=== PATIENT | female | born 1945 | race Caucasian/White ===

== ENCOUNTER 2021-06-14 09:04 | Emergency (ER) | payer MEDICARE, SELFPAY ==
[2021-06-14 09:17] VITALS: BP 142/54; PULSE 96; RESP 18; TEMP 36.3; O2SAT 100
--- NOTE | 2021-06-14 09:29 | ED.WOUNDLAC ---
HPI - Wound/Laceration General Chief Complaint: Wound/Laceration Stated Complaint: Laceration on Left hand Time Seen by Provider: 06/14/21 09:20 Source: patient and RN notes reviewed Mode of arrival: ambulatory Limitations: no limitations History of Present Illness HPI narrative: 75-year-old female presents with concern for wound to the palmar aspect of the left hand. Reports day before yesterday she was reaching in the trash to get something out when she cut herself on broken glass. She reports she cleaned the wound, reports she thinks she needs a tetanus shot. Reports some swelling and redness around the wound. She denies any decrease strength, sensation, range of motion of the hand. Extremity Location: Left: hand Related Data Home Medications Medication Instructions Recorded Confirmed allopurinol 06/14/21 blood sugar diagnostic [OneTouch 06/14/21 06/14/21 Ultra Test] bumetanide 06/14/21 carvedilol 06/14/21 insulin degludec [Tresiba unit SUBCUT 06/14/21 FlexTouch U-200] insulin lispro [Humalog KwikPen SUBCUT 06/14/21 Insulin] nortriptyline 06/14/21 nortriptyline 06/14/21 omeprazole 06/14/21 pen needle, diabetic [BD Josette 2nd 06/14/21 06/14/21 Gen Pen Needle] pramipexole mg 06/14/21 semaglutide [Ozempic] mg SUBCUT 06/14/21 trospium mg 06/14/21 Allergies Allergy/AdvReac Type Severity Reaction Status Date / Time pseudoephedrine Allergy Unknown Other Verified 06/14/21 09:19 Review of Systems Review of Systems: CONSTITUTIONAL: Denies malaise, chills, sweats, or fever. CARDIOVASCULAR: Denies chest pain, palpitations, or edema. RESPIRATORY: Denies cough or dyspnea. SKIN: Rash in the left hand MUSCULOSKELETAL: Denies muscle skeletal pain, myalgia. NEUROLOGIC: Denies numbness, weakness All systems reviewed & are unremarkable except as noted in HPI and below PMFSH Comments At time of signature, agree with nursing past medical, surgical, social and family history. There is no relevant family history pertinent to the presenting complaint Exam Narrative: GENERAL: Well-appearing, well-nourished, and in no acute distress. HEAD: Normocephalic EYES: PERRLA, conjunctivae clear NECK: Supple. CHEST: Speaks in full sentences. No respiratory distress. HEART: Regular rate and rhythm. Normal and equal peripheral pulses. EXTREMITIES: Left hand and digits of hand have grossly normal strength and sensation. Range of motion normal. Normal digital cascade with flexion of fingers, median, ulnar and radial nerve intact. Normal sensation of each side of finger. No scissoring. Normal thumb opposition. Good capillary refill and radial pulse. Distal capillary refill less than 3 seconds. SKIN: Warn, dry, intact, pink. 3cm gaping laceration noted to the palmar aspect of the left hand beneath the second digit, edges not able to be approximated wound bed beefy red. Mild erythema, edema, induration surrounding the wound. NEURO: Alert and oriented x3. PSYCH: Normal mood and affect Course Course Emergency Course: Steri-Strips used to keep wound as approximated as possible, too many hours have passed for wound closure. Patient is aware of diagnosis, understands and agrees to treatment plan. Anticipatory guidance given. Patient agrees to follow-up as directed and is aware of reasons to seek care at the emergency department. Portions of this record may have been created with voice recognition software Vital Signs Vital signs: Vital Signs Temperature 97.4 F L 06/14/21 09:17 Pulse Rate 96 06/14/21 09:17 Respiratory Rate 18 06/14/21 09:17 Blood Pressure 142/54 H 06/14/21 09:17 Pulse Oximetry 100 06/14/21 09:17 Temperature 97.4 F L 06/14/21 09:17 Pulse Rate 96 06/14/21 09:17 Respiratory Rate 18 06/14/21 09:17 Blood Pressure 142/54 H 06/14/21 09:17 Pulse Oximetry 100 06/14/21 09:17 Reviewed. MDM - Wound/Laceration MDM Narrative Medical decision making narrative: Exam findings show n
[2021-06-14] MEDS: TETANUS,DIPHTHERIA,AC PERTUSSIS ADULT (0.5 ML) BOOSTRIX IM (09:56)
== END 2021-06-14 10:00 | disposition home or self-care (01) ==
PROVIDERS: Emergency Provider Nurse Practitioner
DX: L08.9 Local infection of the skin and subcutaneous tissue, unspecified (principal); S61.412A Laceration without foreign body of left hand, initial encounter; W25.XXXA Contact with sharp glass, initial encounter; Z23 Encounter for immunization
CPT/HCPCS: 90471; 90715; 99213; G0463

== ENCOUNTER 2022-02-28 15:47 | Outpatient (NON) | payer MEDICARE, SELFPAY ==
[2022-02-28 15:58] LABS: Basophils Absolute Auto 0.06 K/mm3 (0.00-0.10); Basophils Percent Auto 0.6 % (0.0-1.0); Eosinophils Absolute Auto 0.15 K/mm3 (0.02-0.50); Eosinophils Percent Auto 1.6 % (1.0-6.0); Hematocrit 36.7 % (35.0-42.0); Immature Granulocyte Absolute 0.05 K/mm3 (0.00-0.00); Immature Granulocyte Percent A 0.5 % (0.0-0.0); Lymphocytes Absolute Auto 2.52 K/mm3 (1.10-4.50); Mean Corpuscular HGB Conc 32.7 g/dL (32.0-36.0); Mean Corpuscular Hemoglobin 30.5 pg (27.0-31.0); Mean Corpuscular Volume 93.4 fL (78.0-102.0); Mean Platelet Volume 10.2 fl (9.2-11.8); Monocytes Absolute Auto 0.58 K/mm3 (0.10-0.90); Monocytes Percent Auto 6.2 % (2.0-11.0); Neutrophils Percent Auto 64.1 % (50.0-70.0); Platelet Count Result 262 K/mm3 (150-420); Red Blood Count 3.93 M/mm3 (4.20-5.40); Red Cell Distribution Width 14.1 % (11.6-14.4); White Blood Count 9.3 K/mm3 (4.8-10.8)
[2022-02-28 16:02] LABS: Anion Gap 6 mmol/L (8-16); Blood Urea Nitrogen 41 mg/dL (7-18); Calcium 9.5 mg/dL (8.5-10.1); Carbon Dioxide 29 mmol/L (21-32); Chloride 103 mmol/L (98-108); Estimated Glomerular Filt Rate 29; Glucose 160 mg/dL (70-99); Osmolality Calculated 299 mOsm/kg (285-295); Potassium 3.9 mmol/L (3.5-5.1); Sodium 138 mmol/L (136-145)
== END 2022-02-28 15:48 | disposition home or self-care (01) ==
LOC: CHSLAB 15:52
DX: E11.649 Type 2 diabetes mellitus with hypoglycemia without coma (principal); I11.0 Hypertensive heart disease with heart failure; E11.22 Type 2 diabetes mellitus with diabetic chronic kidney disease
CPT/HCPCS: 80048; 85025

== ENCOUNTER 2022-04-23 12:06 | Outpatient (CLI) | payer MEDICARE, SELFPAY ==
--- NOTE | ~2022-04-23 | XR_ITS ---
EXAMINATION: XR chest 2V 04/23/2022 13:08 INDICATION: Cough. Atrial fibrillation.. PROCEDURE: 2 view chest COMPARISON: No prior studies for comparison. FINDINGS: The lungs are clear. The cardiomediastinal silhouette is within normal limits. There are no pleural effusions. There is no pneumothorax suspected. IMPRESSION: 1: NO ACUTE CARDIOPULMONARY DISEASE. Reviewed, dictated and finalized at location B.
--- NOTE | 2022-04-23 12:23 | ECG_ITS ---
Measurements Intervals [place] Rate: 76 P: 77 NH: 146 QRS: 32 QRSD: 88 T: 51 QT: 377 QTc: 426 Interpretive Statements SINUS RHYTHM NORMAL ECG NO PREVIOUS ECG AVAILABLE FOR COMPARISON Electronically Signed On 04-23-2022 12:39:09 CDT by Manjinder Richard M.D.
== END 2022-04-23 12:07 | disposition home or self-care (01) ==
PROVIDERS: PCP Family Medicine; Visit Provider Nurse Practitioner Family
DX: R05.9 Cough, unspecified (principal); R00.2 Palpitations
CPT/HCPCS: 71046; 93005

== ENCOUNTER 2022-05-06 14:07 | Outpatient (CLI) | payer MEDICARE, SELFPAY ==
--- NOTE | 2022-05-13 15:34 | WPDHOLTEREM ---
Holter/Event Monitor Holter/Event Monitor Date of procedure: 05/06/22 Holter/Event Procedure: 48 Hr Holter Monitor Indications: Palpitations Conclusion: 1. 48 hour holter monitor on 05/06/22. 2. Predominant rhythm is sinus rhythm. HR range 56-108 bpm; average HR 74 bpm. 3. There are 291 premature supraventricular complexes and 8 supraventricular couplets. There are 13 episodes of atrial tachycardia, fastest at 167 bpm and longest lasting 14 beats. 4. No premature ventricular complexes. No ventricular tachycardia. 5. No sinoatrial or atrioventricular blocks. No significant pauses greater than 2 seconds. 6. No symptoms available for correlation.
== END 2022-05-06 14:08 | disposition home or self-care (01) ==
LOC: ANHCARD 14:08
PROVIDERS: PCP Family Medicine; Visit Provider Nurse Practitioner Family
DX: R00.2 Palpitations (principal)
CPT/HCPCS: 93225; 93226

== ENCOUNTER 2022-05-20 11:22 | Inpatient (IN) | payer MEDICARE, SELFPAY ==
[2022-05-20] VITALS (8 sets, daily range): BP systolic 165–197; BP diastolic 54–75; PULSE 67–94; RESP 14–22; TEMP 36.1–36.4; O2SAT 96–100; BMI 43.2
--- NOTE | ~2022-05-20 | XR_ITS ---
EXAMINATION: XR chest 2V DATE: 05/20/2022 12:39 INDICATION: Shortness of breath TECHNIQUE: AP and lateral views of the chest are obtained. COMPARISON: 04/23/2022 FINDINGS: The lungs are free of acute opacities. No pleural effusion or pneumothorax. The cardiomedia stinal silhouette is normal. There are bridging osteophytes at multiple levels in the spine, consiste nt with diffuse idiopathic skeletal hyperostosis (DISH). IMPRESSION: 1. No acute cardiopulmonary abnormality. Reviewed, dictated and finalized at location B.
--- NOTE | ~2022-05-20 | US_ITS ---
EXAMINATION: US venous doppler [facility] DATE: 05/21/2022 10:20 INDICATION: Lower limb edema. TECHNIQUE: Grayscale ultrasound images without and with compression and Doppler ultrasound images of the bilateral lower extremity veins were obtained. COMPARISON: None. FINDINGS: The visualized portions of right common femoral vein, profunda (deep) femoral vein, femoral vein, pop liteal vein, peroneal veins, posterior tibial veins, and greater saphenous vein outflow are patent. The visualized portions of left common femoral vein, profunda femoral vein, femoral vein, popliteal v ein, peroneal veins, posterior tibial veins, and greater saphenous vein outflow are patent. IMPRESSION: 1. No deep venous thrombosis. Reviewed, dictated and finalized at location A.
--- NOTE | 2022-05-20 11:30 | ECG_ITS ---
Measurements Intervals [place] Rate: 87 P: 84 DC: 155 QRS: 43 QRSD: 78 T: 49 QT: 368 QTc: 443 Interpretive Statements SINUS RHYTHM NORMAL ECG COMPARED TO ECG 04/23/2022 12:32:38 NO SIGNIFICANT CHANGES Electronically Signed On 05-20-2022 12:09:48 CDT by Anupam Mcdowell D.O.
[2022-05-20 11:47] LABS: Basophils Percent Auto 0.4 % (0.2-1.2); Eosinophils Absolute Auto 0.1 K/mm3 (0-0.3); Eosinophils Percent Auto 1.1 % (0-4.4); Hematocrit 34.1 % (37.0-47.0); Hemoglobin 10.8 g/dL (12.0-15.0); Immature Granulocyte Absolute 0.05 K/mm3 (0.00-0.031); Immature Granulocyte Percent A 0.5 % (0-0.5); Lymphocytes Absolute Auto 1.21 K/mm3 (0.9-3.2); Lymphocytes Percent Auto 12.5 % (18.3-44.2); Mean Corpuscular HGB Conc 31.7 g/dl (32-36); Mean Corpuscular Volume 91.4 fl (80-100); Mean Platelet Volume 9.4 fl (7.4-10.4); Monocytes Absolute Auto 0.6 K/mm3 (0.1-0.6); Monocytes Percent Auto 5.7 % (2.6-8.5); Neutrophils Absolute Auto 7.7 K/mm3 (1.3-6.7); Neutrophils Percent Auto 79.8 % (45.5-73.1); Platelet Count Result 274 k/mm3 (150-375); Red Blood Count 3.73 M/mm3 (4.2-5.4); Red Cell Distribution Width 14.5 % (11.5-14.5); White Blood Count 9.7 K/mm3 (4.5-10.0)
[2022-05-20 11:59] LABS: Alanine Aminotransferase 18 U/L (6-35); Albumin Level 3.7 g/dL (3.5-5.1); Alkaline Phosphatase 155 U/L (38-126); Anion Gap 11 mmol/L (8-16); Aspartate Amino Transferase 19 U/L (14-36); Bilirubin,Total 0.2 mg/dL (0.2-1.3); Blood Urea Nitrogen 31 mg/dL (7-17); Calcium 8.8 mg/dL (8.4-10.2); Carbon Dioxide 26 mmol/L (22-30); Chloride 98 mmol/L (98-107); Estimated CRCL calculation 42 ml/min; Estimated Glomerular Filt Rate 40; Glucose 389 mg/dL (65-110); Potassium 4.5 mmol/L (3.4-5.0); Sodium 135 mmol/L (137-145)
--- NOTE | 2022-05-20 14:24 | ED.SOB ---
HPI - SOB/Dyspnea General Chief Complaint: Shortness of Breath/Dyspnea Stated Complaint: SOB Time Seen by Provider: 05/20/22 14:21 Source: patient Mode of arrival: ambulatory Limitations: no limitations History of Present Illness HPI Narrative: Pt with a history of CHF, Type II DM, presenting for one month history of worsening dyspnea with exertion, occasional productive cough. Pt has no smoking history. She reports bilateral leg swelling without pain or redness. She does report orthopnea. Her dyspnea improves with rest. She denies hemoptysis. She reports mild abdominal distension/edema without pain. Pt also reports unintentional weight gain over past month, and also episodic palpitations with negative work up ultimately after eval with holter monitor. Related Data Home Medications Medication Instructions Recorded Confirmed allopurinol 100 mg tablet 06/14/21 04/23/22 blood sugar diagnostic (OneTouch 06/14/21 04/23/22 Ultra Test strips) bumetanide 2 mg tablet 06/14/21 04/23/22 carvedilol 25 mg tablet 06/14/21 04/23/22 insulin lispro 100 unit/mL subcut 06/14/21 04/23/22 subcutaneous pen (Humalog KwikPen (U-100) Insulin) omeprazole 20 mg capsule,delayed 06/14/21 04/23/22 release pen needle, diabetic 32 gauge x 06/14/21 04/23/22 5/32 (BD Josette 2nd Gen Pen Needle) pramipexole 0.25 mg tablet mg 06/14/21 04/23/22 trospium 20 mg tablet mg 06/14/21 04/23/22 divalproex 500 mg tablet,delayed 500 mg PO Q12H 03/06/22 04/23/22 release insulin degludec 200 unit/mL (3 20 unit subcut DAILY 03/06/22 04/23/22 mL) subcutaneous pen (Tresiba FlexTouch U-200 insulin) insulin lispro 100 unit/mL 1 sliding scale dose subcut 03/06/22 04/23/22 subcutaneous pen (Humalog KwikPen USEASDIRECTD (U-100) Insulin) nystatin 100,000 unit/gram topical 1 applic topical BID 03/06/22 04/23/22 powder (Nystop) venlafaxine 50 mg tablet 50 mg PO DAILY 03/06/22 04/23/22 Allergies Allergy/AdvReac Type Severity Reaction Status Date / Time Noadius-URO-WeI Reductase Allergy Intermediate Other Verified 05/20/22 13:10 Inhibitor pseudoephedrine Allergy Unknown Other Verified 05/20/22 13:10 NSAIDS (Non-Steroidal AdvReac Intermediate Other Verified 05/20/22 13:10 Anti-Inflamma acetaminophen AdvReac Mild Itching Verified 05/20/22 13:10 [From Panlor (hydrocodone-acetamin)] exenatide [From Bydureon] AdvReac Mild Diarrhea Verified 05/20/22 13:10 hydrocodone AdvReac Mild Itching Verified 05/20/22 13:10 [From Panlor (hydrocodone-acetamin)] prochlorperazine AdvReac Mild Itching Verified 05/20/22 13:10 [From Compazine] rice AdvReac Mild Heartburn Verified 05/20/22 13:10 atenolol Allergy Severe Other Uncoded 05/20/22 13:10 oxycodone AdvReac Mild Itching Uncoded 05/20/22 13:10 Review of Systems Review of Systems: CONSTITUTIONAL: Denies fever, chills, or sweats. ENT: Denies rhinorrhea, congestion, sore throat, or otalgia. CARDIOVASCULAR: Denies chest pain, palpitations, reports lower extremity edema bilaterally RESPIRATORY: Reports cough and dyspnea GASTROINTESTINAL: Denies abdominal pain, nausea, vomiting, or diarrhea. GENITOURINARY: Denies dysuria or hematuria. SKIN: Denies rash or itching. MUSCULOSKELETAL: Denies back pain, joint pain, or myalgia. NEUROLOGIC: Denies headache, numbness, or weakness. 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
[2022-05-20] MEDS: FUROSEMIDE INJ 40 MG/4 ML VIAL 20 MG IV PUSH (15:35)
[2022-05-20 15:45] LABS: NT Pro B Type Natriuretic Pept 590 pg/mL (5-100); Troponin I < 0.012 ng/mL (0.000-0.034)
--- NOTE | 2022-05-20 17:12 | PM.IMHP ---
H&P: HPI History of Present Illness Date/Time: 05/20/22 17:12 Chief Complaint: Shortness of breath Narrative: This is a 76-year-old female patient who has a history of CHF and diabetes type 2. The patient stated she has had worsening shortness of breath with exertion occasional productive cough. The patient had increased swelling to her lower extremities. Her dyspnea improves with rest. She denies any fever chills. The patient stated that she has had an unintentional weight gain over the past month. She has venous stasis to bilateral lower extremities. She typically wears Francisco hose but cannot find her Francisco hose so she is wrapping her legs. Her H&H is currently 10.8 and 34.1 and last month that was normal. Sodium is slightly low at 135. Creatinine is 1.3 compared to last months level of 1.52. Her blood sugar was 389 today. Troponins were negative. BNP 590. Chest x-ray was read as no acute cardiopulmonary abnormality. The patient was given IV fluids in the emergency room. The patient is being admitted to observation status on the date of service of 05/20/2022. Review of Systems Review of Systems: See HPI All systems reviewed & are unremarkable except as noted in HPI and below Constitutional: Constitutional: Reports as per HPI and Reports no additional constitutional complaints Eyes: Eyes: Reports as per HPI and Reports no additional eye complaints ENT: Reports system reviewed and no additional complaints, except as documented and Reports Normal hearing present Cardiovascular: Cardiovascular: Reports no additional cardiovascular complaints Respiratory: Respiratory: Reports no additional respiratory complaints and Reports no additional respiratory complaints Gastrointestinal: Gastrointestinal: Reports as per HPI and Reports no additional gastrointestinal complaints Musculoskeletal: Musculoskeletal: Reports no additional musculoskeletal complaints Integumentary/Breasts: Skin/Breast: Reports system reviewed and no additional complaints, except as docu and Reports as per HPI Neurologic: Reports system reviewed and no additional complaints, except as documented, Reports as per HPI and Reports Normal hearing present Psychiatric: Psychiatric: Reports no additional psychiatric complaints and Reports as per HPI Endocrine: Endocrine: Reports no additional endocrine complaints Hematologic/Lymphatic: Hematologic/Lymphatic: Reports no additional hematologic/lymphatic complaints Allergic/Immunologic: Allergic/Immunologic: Reports no additional allergic/immunologic complaints [facility] Past Medical History Medical History Anemia Anxiety BMI 40.0-44.9, adult Breast cancer CHF (congestive heart failure) 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 Social History Social History (Updated 05/20/22 @ 21:52 by Melly Ruiz NP) Social History: The patient is and lives home alone. She Had 2 children but her daughter . Her son is the poa. She is retired. She has never smoked. She does not use any alcohol marijuana or illicit drugs. 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
[2022-05-20 18:42] LABS: Troponin I < 0.012 ng/mL (0.000-0.034)
--- NOTE | 2022-05-20 19:42 | ADMGEN ---
This patient, Aleksandra Berman, was admitted to [facility] Surg Room 329-01. Patient/family oriented to hospital policies and general routines including ID bracelet, bed and alarms, visiting hours, pain management, procedures, bathroom and other care routines, personal items, smoking policy, room service/diet, and visiting hours. Information on how to activate the Rapid Response Team has been discussed. Patient/Family are encouraged to report perceived risks to care and to ask questions if they do not understand what they are told or what they should do.
[2022-05-20 22:09] LABS: Hematocrit 35.9 % (37.0-47.0); Hemoglobin 11.2 g/dL (12.0-15.0)
[2022-05-21] MEDS: INSULIN ASPART (*BKC) 100 UNITS/ML 12 UNITS SUB-Q ×3 (01:19→12:04)
[2022-05-21 01:47] LABS: Glucose Point of Care 408 mg/dl (65-105)
[2022-05-21 03:35] LABS: Glucose Point of Care 319 mg/dl (65-105)
[2022-05-21 05:31] VITALS: BP 160/63; PULSE 81; RESP 16; TEMP 36.3; O2SAT 96
--- NOTE | 2022-05-21 06:00 | ECHO_ITS ---
Patient Info Name: Aleksandra Berman Age: 76 years : 1945 Gender: Female Ht: 65 in Wt: 260 lbs BSA: 2.39 m2 HR: 83 bpm BP: 160 / 63 mmHg Heart Rhythm: Sinus Rhythm Exam Date: 05/21/2022 11:21 AM Exam Location: [facility] Patient Status: Outpatient Admit Date: 05/20/2022 Staff Ordering Physician: Letty Joaquin MD Legal Services Professional: Patricio Hartman RDCS, RT Attending Provider: Bridget Paul DO Referring Physician: Emani SANTO; Exam Type: CA echo doppler color flow Study Info Indications R06.00 - Dyspnea, unspecified I50.9 - Heart failure, unspecified Complete two-dimensional, color flow and Doppler transthoracic echocardiogram is performed. Strain analysis performed. Summary 1. Complete two-dimensional, color flow and Doppler transthoracic echocardiogram is performed. 2. Left ventricular chamber dimension is normal. 3. Left ventricular systolic function is normal, estimated at 65-70%. 4. There is mildly increased left ventricular wall thickness. 5. The left ventricular diastolic function is grade II diastolic dysfunction. 6. E/e' 20.0 is moderately elevated. 7. Global longitudinal strain is mildly elevated at -18 %. 8. There is no aortic valve stenosis. 9. There is mild mitral valve regurgitation. 10. There is mild tricuspid valve regurgitation. 11. Moderate pulmonary hypertension, estimated pulmonary arterial systolic pressure is 46 mmHg. Left Ventricle Left ventricular chamber dimension is normal. Left ventricular systolic function is normal, estimated at 65-70%. There is mildly increased left ventricular wall thickness. The left ventricular diastolic function is grade II diastolic dysfunction. E/e' 20.0 is moderately elevated. Global longitudinal strain is mildly elevated at -18 %. Right Ventricle Right ventricular chamber dimension is normal. Right ventricular systolic function is normal. Left Atria Left atrial chamber dimension is normal. Right Atria Right atrial chamber dimension is normal. Aortic Valve The aortic valve is probable trileaflet. There is mild aortic valve sclerosis. There is no aortic valve stenosis. There is mild aortic valve regurgitation. Pulmonic Valve The pulmonic valve is not well visualized. There is trace pulmonic regurgitation. Mitral Valve The mitral valve has thickened leaflets. There is mild mitral valve regurgitation. The mitral valve annulus is moderately calcified. Tricuspid Valve The tricuspid valve leaflets are normal. There is mild tricuspid valve regurgitation. Moderate pulmonary hypertension, estimated pulmonary arterial systolic pressure is 46 mmHg. Pericardium/Pleural The pericardium appears normal. There is trivial pericardial effusion. Inferior Vena Cava Normal inferior vena cava with >50% collapse upon inspiration consistent with normal right atrial pressure, 5 mmHg. Aorta The aortic root size at the sinus of Valsalva is normal. There is mild aortic atherosclerosis. Left Ventricular Outflow Tract Name Value Normal LVOT 2D LVOT Diameter 2.0 cm LVOT Doppler LVOT Peak Gradient
[2022-05-21 06:46] LABS: Hematocrit 35.5 % (37.0-47.0)
[2022-05-21 08:24] LABS: Glucose Point of Care 202 mg/dl (65-105)
[2022-05-21] MEDS: PANTOPRAZOLE 40 MG TABLET PO (08:53)
[2022-05-21] MEDS: PRAMIPEXOLE 0.5 MG TABLET PO (08:53)
[2022-05-21] MEDS: VENLAFAXINE HCL 25 MG TABLET 50 MG PO (08:53)
[2022-05-21] MEDS: BUMETANIDE INJ 1 MG/4 ML VIAL IV PUSH ×2 (08:54→17:24)
[2022-05-21] MEDS: ENOXAPARIN 40 MG/0.4 ML SYRINGE SUB-Q (08:55)
[2022-05-21] MEDS: INSULIN ASPART (*BKC) 100 UNITS/ML SUB-Q ×2 (08:55→12:04)
[2022-05-21] MEDS: INSULIN GLARGINE (*BKC) 100 UNITS/ML 38 UNITS SUB-Q (08:56)
[2022-05-21 11:40] LABS: Glucose Point of Care 350 mg/dl (65-105)
[2022-05-21 12:43] LABS: Hematocrit 34.1 % (37.0-47.0); Hemoglobin 10.6 g/dL (12.0-15.0)
--- NOTE | 2022-05-21 13:37 | PM.IMPN ---
Progress Note: A&P Assessment and Plan (1) CHF (congestive heart failure): Code(s): I50.9 - Heart failure, unspecified Status: Acute Assessment and Plan: Echo report pending Continue IV diuresis, improving (2) Hypertension: Code(s): I10 - Essential (primary) hypertension Status: Acute Assessment and Plan: Continue Coreg, Bumex (3) Anxiety: Code(s): F41.9 - Anxiety disorder, unspecified Status: Acute Assessment and Plan: Continue Effexor (4) Depression: Qualifiers: Depression Type: major depressive disorder Major depression recurrence: single episode Active/Remission status: in full remission Qualified Code(s): F32.5 - Major depressive disorder, single episode, in full remission Code(s): F32.A - Depression, unspecified Status: Acute Assessment and Plan: Continue Effexor (5) Anemia: Qualifiers: Anemia type: unspecified type Qualified Code(s): D64.9 - Anemia, unspecified Code(s): D64.9 - Anemia, unspecified Status: Acute Assessment and Plan: Stable Stool occult still pending (6) Diabetes mellitus type 2 in obese: Code(s): E11.69 - Type 2 diabetes mellitus with other specified complication; E66.9 - Obesity, unspecified Status: Acute Assessment and Plan: A1c is over 10, Accu-Cheks with sliding scale insulin (7) Venous stasis dermatitis: Qualifiers: Laterality: unspecified laterality Qualified Code(s): I87.2 - Venous insufficiency (chronic) (peripheral) Code(s): I87.2 - Venous insufficiency (chronic) (peripheral) Status: Acute Assessment and Plan: Improving, continue to dose (8) Sleep apnea: Qualifiers: Sleep apnea type: obstructive Qualified Code(s): G47.33 - Obstructive sleep apnea (adult) (pediatric) Code(s): G47.30 - Sleep apnea, unspecified Status: Acute Assessment and Plan: Continue home CPAP Plan DVT prophylaxis with Lovenox GI prophylaxis not indicated Code status full code Subjective Date/time seen: 05/21/22 13:37 Interval history: No overnight events noted. No chest pain or shortness of breath. No nausea, vomiting or diarrhea. No fevers or chills. Review of Systems Review of Systems: 12 point review of systems was assessed and was negative except as noted in the HPI Exam Narrative: General: No acute distress, alert and oriented per baseline HEENT: Atraumatic, normocephalic, mucous membranes moist CV: Regular rate and rhythm, S1, S2 Lungs: Clear to auscultation bilaterally, no rales or crackles noted, no wheezes, good air entry Abdomen: Soft, nontender, nondistended Extremities: Normal to inspection, bilateral pitting edema, extremities intact toes, appears improved per prior exams Skin: No rashes noted, no lesions or wounds seen Psych: Euthymic, normal affect Objective Data Vital Signs Vital Signs: Vital Signs - 24 hr 05/20/22 14:21 05/20/22 18:21 05/20/22 19:04 Temperature Pulse Rate 83 78 87 Respiratory Rate 22 H 14 20 Blood Pressure 168/67 H 181/75 H Pulse Oximetry 100 99 97 Oxygen Delivery 05/20/22 19:51 05/20/22 21:37 05/20/22 22:45 Temperature 96.9 F L 96.9 F L Pulse Rate 84 84 67 Respiratory Rate 16 16 18 Blood Pressure 197/70 H 165/54 H Pulse Oximetry 98 98 96 Oxygen Delivery Autopap 05/21/22 05:31 Temperature 97.3 F L Pulse Rate 81 Respiratory Rate 16 Blood Pressure 160/63 H Pulse Oximetry 96 Oxygen Delivery Intake/Output Intake/Output: Intake & Output 05/18/22 05/19/22 05/20/22 05/21/22 23:59 23:59 23:59 23:59 Intake Total 1470 Output Total 600 Balance 870 Meds/Results Medications: Active Medications Generic Name Dose Route Start Last Admin Trade Name Rennyq PRN Reason Stop Dose Admin Acetaminophen 650 mg 05/20/22 16:23 Acetaminophen 325 Mg Tablet PO Q4H PRN Mild Pain (1-3) or
[2022-05-21 14:00] VITALS: BP 180/73; PULSE 87; RESP 14; TEMP 36.3; O2SAT 98
[2022-05-21 16:47] LABS: Glucose Point of Care 117 mg/dl (65-105)
[2022-05-21] MEDS: carvediloL 25 MG TABLET PO (18:33)
[2022-05-21 18:36] LABS: Hematocrit 33.8 % (37.0-47.0); Hemoglobin 10.7 g/dL (12.0-15.0)
[2022-05-21 19:50] VITALS: PULSE 85; RESP 17; O2SAT 96
[2022-05-21 21:45] VITALS: BP 143/65; PULSE 85; RESP 17; TEMP 37; O2SAT 96
[2022-05-21 23:47] LABS: Glucose Point of Care 282 mg/dl (65-105)
[2022-05-22 05:39] VITALS: BP 152/66; PULSE 82; RESP 18; TEMP 36.7; O2SAT 99
[2022-05-22 08:48] VITALS: PULSE 102
[2022-05-22] MEDS: BUMETANIDE INJ 1 MG/4 ML VIAL IV PUSH (08:48)
[2022-05-22] MEDS: carvediloL 25 MG TABLET PO (08:48)
[2022-05-22] MEDS: ENOXAPARIN 40 MG/0.4 ML SYRINGE SUB-Q (08:49)
[2022-05-22] MEDS: PRAMIPEXOLE 0.5 MG TABLET PO (08:50)
[2022-05-22] MEDS: PANTOPRAZOLE 40 MG TABLET PO (08:50)
[2022-05-22] MEDS: VENLAFAXINE HCL 25 MG TABLET 50 MG PO (08:50)
[2022-05-22 08:52] LABS: Glucose Point of Care 491 mg/dl (65-105)
[2022-05-22] MEDS: INSULIN GLARGINE (*BKC) 100 UNITS/ML 40 UNITS SUB-Q ×2 (09:13→09:21)
[2022-05-22] MEDS: INSULIN ASPART (*BKC) 100 UNITS/ML 15 UNITS SUB-Q (09:14)
[2022-05-22] MEDS: INSULIN ASPART (*BKC) 100 UNITS/ML 12 UNITS SUB-Q ×2 (09:14→12:18)
--- NOTE | 2022-05-22 09:18 | PC.NURSE ---
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 Paul regarding patients blood sugar (see labs). Patient already has scheduled novolog and lantus. Dr. Paul stated she would put new insulin orders in NOV (see MAR).
[2022-05-22 11:31] LABS: Glucose Point of Care 299 mg/dl (65-105)
[2022-05-22 12:07] LABS: Basophils Percent Auto 0.5 % (0.2-1.2); Eosinophils Absolute Auto 0.1 K/mm3 (0-0.3); Eosinophils Percent Auto 1.3 % (0-4.4); Hematocrit 35.7 % (37.0-47.0); Hemoglobin 11.2 g/dL (12.0-15.0); Immature Granulocyte Absolute 0.04 K/mm3 (0.00-0.031); Immature Granulocyte Percent A 0.5 % (0-0.5); Lymphocytes Absolute Auto 1.59 K/mm3 (0.9-3.2); Mean Corpuscular HGB Conc 31.4 g/dl (32-36); Mean Corpuscular Hemoglobin 28.9 pg (26-34); Mean Platelet Volume 9.3 fl (7.4-10.4); Monocytes Absolute Auto 0.5 K/mm3 (0.1-0.6); Monocytes Percent Auto 6.1 % (2.6-8.5); Neutrophils Absolute Auto 6.1 K/mm3 (1.3-6.7); Neutrophils Percent Auto 72.6 % (45.5-73.1); Platelet Count Result 279 k/mm3 (150-375); Red Blood Count 3.88 M/mm3 (4.2-5.4); Red Cell Distribution Width 14.6 % (11.5-14.5); White Blood Count 8.4 K/mm3 (4.5-10.0)
[2022-05-22 12:18] LABS: Anion Gap 12 mmol/L (8-16); Blood Urea Nitrogen 25 mg/dL (7-17); Calcium 9.4 mg/dL (8.4-10.2); Carbon Dioxide 26 mmol/L (22-30); Chloride 97 mmol/L (98-107); Estimated CRCL calculation 43 ml/min; Estimated Glomerular Filt Rate 40; Glucose 320 mg/dL (65-110); Potassium 3.9 mmol/L (3.4-5.0); Sodium 135 mmol/L (137-145)
[2022-05-22] MEDS: INSULIN ASPART (*BKC) 100 UNITS/ML SUB-Q (12:18)
[2022-05-22 14:00] VITALS: BP 160/87; PULSE 103; RESP 20; TEMP 35.6; O2SAT 98
[2022-05-22 16:29] LABS: Glucose Point of Care 217 mg/dl (65-105)
--- NOTE | 2022-05-22 16:54 | PM.DS ---
DS: Admitting Diagnosis Discharge Date May 22, 2022 Admitting Diagnosis Shortness of breath DS: Discharge Diagnosis Discharge Diagnosis (1) CHF (congestive heart failure): Code(s): I50.9 - Heart failure, unspecified Status: Acute Assessment and Plan: Echo report pending Continue IV diuresis, improving (2) Hypertension: Code(s): I10 - Essential (primary) hypertension Status: Acute Assessment and Plan: Continue Coreg, Bumex (3) Anxiety: Code(s): F41.9 - Anxiety disorder, unspecified Status: Acute Assessment and Plan: Continue Effexor (4) Depression: Qualifiers: Depression Type: major depressive disorder Major depression recurrence: single episode Active/Remission status: in full remission Qualified Code(s): F32.5 - Major depressive disorder, single episode, in full remission Code(s): F32.A - Depression, unspecified Status: Acute Assessment and Plan: Continue Effexor (5) Anemia: Qualifiers: Anemia type: unspecified type Qualified Code(s): D64.9 - Anemia, unspecified Code(s): D64.9 - Anemia, unspecified Status: Acute Assessment and Plan: Stable Stool occult still pending (6) Diabetes mellitus type 2 in obese: Code(s): E11.69 - Type 2 diabetes mellitus with other specified complication; E66.9 - Obesity, unspecified Status: Acute Assessment and Plan: A1c is over 10, Accu-Cheks with sliding scale insulin (7) Venous stasis dermatitis: Qualifiers: Laterality: unspecified laterality Qualified Code(s): I87.2 - Venous insufficiency (chronic) (peripheral) Code(s): I87.2 - Venous insufficiency (chronic) (peripheral) Status: Acute Assessment and Plan: Improving, continue to dose (8) Sleep apnea: Qualifiers: Sleep apnea type: obstructive Qualified Code(s): G47.33 - Obstructive sleep apnea (adult) (pediatric) Code(s): G47.30 - Sleep apnea, unspecified Status: Acute Assessment and Plan: Continue home CPAP Plan DVT prophylaxis with Lovenox GI prophylaxis not indicated Code status full code DS: Summary Hospital Course Hospital Course: 76-year-old female patient who has a history of CHF and diabetes type 2.? The patient stated she has had worsening shortness of breath with exertion occasional productive cough.? The patient had increased swelling to her lower extremities.? Her dyspnea improves with rest.? She denies any fever chills.? The patient stated that she has had an unintentional weight gain over the past month.? She has venous stasis to bilateral lower extremities.? She typically wears [place] hose but cannot find her Francisco hose so she is wrapping her legs.? Her H&H is currently 10.8 and 34.1 and last month that was normal.? Sodium is slightly low at 135.? Creatinine is 1.3 compared to last months level of 1.52.? Her blood sugar was 389 today.? Troponins were negative.? BNP 590.? Chest x-ray was read as no acute cardiopulmonary abnormality.? The patient was given IV fluids in the emergency room.? Echo showed grade 2 diastolic dysfunction with an EF of 65-70% as well as moderate pulmonary hypertension. No significant valvular abnormalities noted. Patient was diuresed with IV Bumex and all symptoms resolved. She was transitioned back to oral Bumex and symptoms remained resolved. Therefore, she was discharged in good condition with close outpatient follow-up by PCP and Cardiology. Extensive discussions were had regarding her uncontrolled diabetes patient was agreeable to change her diet and activity level. Time Spent with Patient Time attestation: Total time spent providing and/or coordinating discharge services: Exam Narrative: General: No acute distress, alert and oriented per baseline HEENT: Atraumatic, normocephalic, mucous membranes moist CV: Regular rate and rhythm, S1, S2 Lungs: Clear to auscultation josefa
--- NOTE | 2022-05-23 09:07 | WPDCDIQUERY2 ---
CDI Query Clarification Request 05/20 Hospitalist documented: CHF (congestive heart failure): ?Code(s): I50.9 - Heart failure, unspecified ?Status:?Acute ?Assessment and Plan: -change p.o. Bumex to IV Bumex -patient was given IV Lasix in the emergency -an echo has been ordered 05/21 Echo results: Left ventricular chamber dimension is normal. ?Left ventricular systolic function is normal, estimated at 65-70%. There is mildly increased left ventricular wall thickness. The left ventricular diastolic function is grade II diastolic dysfunction. ?E/e' 20.0 is moderately elevated. Global longitudinal strain is mildly elevated at -18 %. Please clarify if diagnosis CHF, Congestive Heart Failure Is: -Acute -Chronic -Acute on Chronic -Other -Unable to determine For coding purposes, results of Echo can not be used for diagnosis. Please clarify if CHF, Congestive Heart Failure is: -Systolic -Diastolic -Combined -Other -Unable to determine
--- NOTE | 2022-05-23 09:17 | WPDCDIQUERY2 ---
CDI Query Clarification Request 05/20 Hospitalist documented: Anemia: ?Qualifiers: ?Anemia type:?unspecified type? Qualified Code(s):?D64.9 - Anemia, unspecified ?Code(s): D64.9 - Anemia, unspecified ?Status:?Acute ?Assessment and Plan: -check stool for occult blood -H&H every 6 hours 05/20 H&H 10.8/34.1 05/21 Stool occult still pending Please clarify diagnosis, Anemia: -Iron deficiency anemia -Blood loss anemia -Other -Unable to determine
== END 2022-05-22 17:30 | disposition home or self-care (01) | DRG 291 ==
LOC: ANHED 16:26 → ANH3MEDSUR 18:59
PROVIDERS: Emergency Medicine; Nurse Practitioner; Admitting Provider Chiropractor; Emergency Provider Emergency Medicine; PCP Family Medicine; Visit Provider Student in an Organized Health Care Education/Training Program
DX: I13.0 Hypertensive heart and chronic kidney disease with heart failure and stage 1 through stage 4 chronic kidney disease, or unspecified chronic kidney disease (principal); I50.33 Acute on chronic diastolic (congestive) heart failure; Z68.41 Body mass index [BMI] 40.0-44.9, adult; D64.9 Anemia, unspecified; E11.65 Type 2 diabetes mellitus with hyperglycemia; E66.9 Obesity, unspecified; F41.9 Anxiety disorder, unspecified; F32.5 Major depressive disorder, single episode, in full remission; G47.33 Obstructive sleep apnea (adult) (pediatric); I27.20 Pulmonary hypertension, unspecified; I87.2 Venous insufficiency (chronic) (peripheral); M17.10 Unilateral primary osteoarthritis, unspecified knee; E11.22 Type 2 diabetes mellitus with diabetic chronic kidney disease; N18.32 Chronic kidney disease, stage 3b; Z90.49 Acquired absence of other specified parts of digestive tract; Z90.10 Acquired absence of unspecified breast and nipple; Z79.4 Long term (current) use of insulin; Z85.3 Personal history of malignant neoplasm of breast; Z96.643 Presence of artificial hip joint, bilateral; Z85.828 Personal history of other malignant neoplasm of skin
CPT/HCPCS: 36415; 71046; 80048; 80053; 82948; 83036; 83880; 84484; 85014; 85018; 85025; 93005; 93306; 93970; 96372; 96374; 99285; A9270; G0378; J1650; J1815; J1940

== ENCOUNTER 2022-07-11 13:32 | Outpatient (CLI) | payer MEDICARE, SELFPAY ==
--- NOTE | ~2022-07-11 | XR_ITS ---
EXAMINATION: XR chest 2V 07/11/2022 13:58 INDICATION: Dyspnea. CHF. PROCEDURE: 2 view chest COMPARISON: 05/20/2022 FINDINGS: The lungs are clear. The cardiomediastinal silhouette is within normal limits. There are no pleural effusions. There is no pneumothorax suspected. IMPRESSION: 1: NO ACUTE CARDIOPULMONARY DISEASE. Reviewed, dictated and finalized at location A.
== END 2022-07-11 13:33 | disposition home or self-care (01) ==
LOC: ANHIMG 13:40
PROVIDERS: PCP Family Medicine; Visit Provider Physician Assistant Medical
DX: R06.09 Other forms of dyspnea (principal)
CPT/HCPCS: 71046

== ENCOUNTER 2022-07-21 16:27 | Inpatient (IN) | payer MEDICARE, SELFPAY ==
[2022-07-21] VITALS (8 sets, daily range): BP systolic 174–199; BP diastolic 75–91; PULSE 95–108; RESP 16–23; TEMP 37.4; O2SAT 96–100
--- NOTE | ~2022-07-21 | XR_ITS ---
EXAMINATION: XR chest 2V DATE: 07/24/2022 08:20 INDICATION: Pneumonia. TECHNIQUE: Frontal and lateral views of the chest were obtained. COMPARISON: Chest 2 views 07/21/2022, CT chest 07/22/2022 FINDINGS: Again seen are airspace opacities in right upper lobe, consistent with pneumonia. No pleura l effusion or pneumothorax. The heart size is normal. IMPRESSION: 1. Persistent right upper lobe airspace opacities, consistent with pneumonia. Reviewed, dictated and finalized at location A. DER OPERATOR
--- NOTE | ~2022-07-21 | CT_ITS ---
EXAMINATION: CT brain wo con INDICATION: Confusion COMPARISON: None TECHNIQUE: Standard unenhanced head CT. The dose-length product (DLP) was 908.00 mGy-cm. The mA was a djusted according to patient size. Iterative reconstruction technique was employed. FINDINGS: There is no acute intraparenchymal hemorrhage. No evidence of mass lesion. No evidence of a cute infarction. There is mild periventricular and subcortical hypodensity probably related to small vessel ischemic disease. There is mild prominence of the sulci and ventricles related to cerebral atr ophy. Intracranial calcified cerebral atherosclerosis is noted. There are no extra-axial collections. There is asymmetry in the posterior horns of the lateral ventricles with the right being nonvisualiz ed, apparently hypoplastic. There is no mass effect or midline shift. Changes in the globes are likel y from ocular lens surgery. The visualized sinuses and mastoid air cells are well aerated. IMPRESSION: 1. No acute intracranial abnormality. 2. Age related findings. Reviewed, dictated and finalized at location F. RWATER HUNTER TRAPPER
--- NOTE | ~2022-07-21 | XR_ITS ---
EXAMINATION: XR chest 2V DATE: 07/21/2022 19:04 INDICATION: Shortness of breath TECHNIQUE: AP and lateral views of the chest are obtained. COMPARISON: 07/11/2022 FINDINGS: There are patchy interstitial and airspace opacities throughout the lungs. No pleural effus ion or pneumothorax. The cardiomediastinal silhouette is normal. There is moderate thoracic spondylos is. IMPRESSION: 1. Diffuse lung disease which may reflect interstitial edema and/or pneumonia. Reviewed, dictated and finalized at location F. ORATE EVENTS DIRECTOR
--- NOTE | ~2022-07-21 | CT_ITS ---
EXAMINATION: CT chest abdomen pelvis w con DATE: 07/22/2022 03:10 INDICATION: Dyspnea. Nausea and vomiting. TECHNIQUE: Computed tomography (CT) of the chest, abdomen, and pelvis was performed with 100 mL Omnip aque 350 intravenous contrast. Automated exposure control and iterative reconstruction technique were employed. The dose-length product was 1636.13 mGy-cm. COMPARISON: None FINDINGS: CHEST CT: There are airspace opacities in right upper lobe with air bronchograms, consistent with pneumonia. Th ere is mild atelectasis in the lungs. There is smooth septal thickening in the lungs, consistent with mild pulmonary edema. No pleural effusion. There is a right breast implant. The heart size is normal . There are coronary artery calcifications. No pericardial effusion. There is mild mediastinal and ri ght hilar lymphadenopathy. There is mild thoracic spondylosis. ABDOMEN/PELVIS CT: The liver is normal. There are changes of cholecystectomy. The spleen, pancreas, and adrenal glands a re normal. There is cortical thinning of the kidneys. There are no dilated loops of bowel. The append ix is normal. There are no pathologically enlarged lymph nodes. There is no free intraperitoneal flui d. There is a total right hip arthroplasty. There is moderate lumbar spondylosis. IMPRESSION: 1. Right upper lobe pneumonia. 2. Mild pulmonary edema. 3. Mild mediastinal and right hilar lymphadenopathy, likely reactive. Reviewed, dictated and finalized at location A. USEMENT MACHINE MECHANIC
--- NOTE | 2022-07-21 16:43 | ECG_ITS ---
Measurements Intervals [place] Rate: 97 P: 82 OR: 153 QRS: 38 QRSD: 76 T: 38 QT: 339 QTc: 432 Interpretive Statements SINUS RHYTHM NORMAL ECG COMPARED TO ECG 05/20/2022 11:35:46 NO SIGNIFICANT CHANGES Electronically Signed On 07-21-2022 19:37:49 COMPUTER NUMERICAL CONTROL MACHINIST by Anupam Mcdowell D.O.
[2022-07-21 16:44] LABS: Glucose Point of Care 342 mg/dl (65-105)
[2022-07-21 17:16] LABS: Basophils Percent Auto 0.4 % (0.2-1.2); Eosinophils Absolute Auto 0.1 K/mm3 (0-0.3); Hematocrit 35.6 % (37.0-47.0); Hemoglobin 11.2 g/dL (12.0-15.0); Immature Granulocyte Absolute 0.04 K/mm3 (0.00-0.031); Immature Granulocyte Percent A 0.4 % (0-0.5); Lymphocytes Absolute Auto 1.39 K/mm3 (0.9-3.2); Lymphocytes Percent Auto 14.8 % (18.3-44.2); Mean Corpuscular HGB Conc 31.5 g/dl (32-36); Mean Corpuscular Hemoglobin 28.4 pg (26-34); Mean Corpuscular Volume 90.1 fl (80-100); Mean Platelet Volume 9.7 fl (7.4-10.4); Monocytes Absolute Auto 0.7 K/mm3 (0.1-0.6); Monocytes Percent Auto 7.1 % (2.6-8.5); Neutrophils Absolute Auto 7.2 K/mm3 (1.3-6.7); Neutrophils Percent Auto 76.3 % (45.5-73.1); Platelet Count Result 254 k/mm3 (150-375); Red Blood Count 3.95 M/mm3 (4.2-5.4); Red Cell Distribution Width 15.7 % (11.5-14.5); White Blood Count 9.4 K/mm3 (4.5-10.0)
[2022-07-21 17:29] LABS: Alanine Aminotransferase 20 U/L (6-35); Albumin Level 4.2 g/dL (3.5-5.1); Alkaline Phosphatase 151 U/L (38-126); Anion Gap 9 mmol/L (8-16); Aspartate Amino Transferase 22 U/L (14-36); Bilirubin,Total 0.7 mg/dL (0.2-1.3); Blood Urea Nitrogen 25 mg/dL (7-17); Calcium 9.6 mg/dL (8.4-10.2); Carbon Dioxide 28 mmol/L (22-30); Chloride 98 mmol/L (98-107); Estimated CRCL calculation 53 ml/min; Estimated Glomerular Filt Rate 44; Glucose 383 mg/dL (65-110); Phosphorus 2.4 mg/dL (2.5-4.5); Potassium 4.3 mmol/L (3.4-5.0); Sodium 135 mmol/L (137-145)
[2022-07-21 17:35] LABS: Beta-Hydroxybutyrate/Acetoacetate 0.43 mmol/L (0.02-0.27)
--- NOTE | 2022-07-21 18:41 | ED.AMS ---
HPI - Altered Mental Status General Chief Complaint: Recheck/Abnormal Lab/Rx <Luisana Doe APRN - Last Filed: 07/22/22 01:55> Stated Complaint: High BS <Luisana Doe APRN - Last Filed: 07/22/22 01:55> Time Seen by Provider: 07/21/22 18:06 <Luisana Doe APRN - Last Filed: 07/22/22 01:55> Source: patient <Luisana Doe APRN - Last Filed: 07/22/22 01:55> Mode of arrival: ambulatory <Luisana Doe APRN - Last Filed: 07/22/22 01:55> Limitations: no limitations <Luisana Doe APRN - Last Filed: 07/22/22 01:55> History of Present Illness HPI narrative: 76-year-old female presents with her son at the bedside for increased confusion and hyperglycemia. Patient's son states that he noticed today that she is more confused than normal. Patient does have a Dexcom on. Patient's blood sugars yesterday in the 200s and son was not concerned but he got alarmed today that the blood sugars were high. Patient son stated that he is unsure if patient took her insulin but he does not think that she did. Patient does know that she is confused. Denies falls, dysuria, cough, fever, chills, nausea, vomiting, abdominal pain. Patient does have a history of CHF and sleep apnea. States she does wear her CPAP at night. Patient denies any recent sick contacts. <Luisana Doe APRN - Last Filed: 07/22/22 01:55> Related Data Home Medications: Home Medications Medication Instructions Recorded Confirmed allopurinol 100 mg tablet 100 mg PO DAILY 06/14/21 07/22/22 (Zyloprim) bumetanide 2 mg tablet 2 mg PO BID 06/14/21 07/22/22 carvedilol 25 mg tablet (Coreg) 25 mg PO BID 06/14/21 07/22/22 omeprazole 20 mg capsule,delayed 20 mg PO DAILY 06/14/21 07/22/22 release pramipexole 0.25 mg tablet 0.5 mg PO BID 06/14/21 07/22/22 (Mirapex) trospium 20 mg tablet 20 mg PO BID 06/14/21 07/22/22 divalproex 500 mg tablet,delayed 500 mg PO HS 03/06/22 07/22/22 release (Depakote) insulin degludec 200 unit/mL (3 40 unit subcut DAILY 07/10/22 07/22/22 mL) subcutaneous pen (Tresiba FlexTouch U-200 insulin) insulin lispro 100 unit/mL 20 unit subcut TIDWM 07/10/22 07/22/22 subcutaneous pen (Humalog KwikPen (U-100) Insulin) cholestyramine (with sugar) 4 gram 4 g PO Q2D 07/17/22 07/22/22 powder for susp in a packet (Questran) desvenlafaxine succinate 50 mg 50 mg PO DAILY 07/22/22 07/22/22 tablet,extended release 24 hr (Pristiq) gabapentin 100 mg capsule 100 mg PO TID 07/22/22 07/22/22 (Neurontin) losartan 25 mg tablet (Cozaar) 25 mg PO DAILY 07/22/22 07/22/22 nortriptyline 25 mg capsule 25 mg PO DAILY 07/22/22 07/22/22 (Pamelor) venlafaxine 150 mg 150 mg PO DAILY 07/22/22 07/22/22 capsule,extended release 24 hr (Effexor XR) <Luisana Doe, ENROLLMENT REPRESENTATIVE - Last Filed: 07/22/22 01:55> Allergies/Adverse Reactions: Allergies Allergy/AdvReac Type Severity Reaction Status Date / Time Qlycrob-VLH-KmM Reductase Allergy Intermediate Other Verified 07/21/22 18:11 Inhibitor pseudoephedrine Allergy Unknown Other Verified 07/21/22 18:11 NSAIDS (Non-Steroidal AdvReac Intermediate Other Verified 07/21/22 18:11 Anti-Inflamma acetaminophen AdvReac Mild Itching Verified 07/21/22 18:11 [From Panlor (hydrocodone-acetamin)] exenatide [From Bydureon] AdvReac Mild Diarrhea Verified 07/21/22 18:11 hydrocodone AdvReac Mild Itching Verified 07/21/22 18:11 [From Panlor (hydrocodone-acetamin)] prochlorperazine AdvReac Mild Itching Verified 07/21/22 18:11 [From Compazine] rice AdvReac Mild Heartburn Verified 07/21/22 18:11 atenolol Allergy Severe Other Uncoded 07/21/22 18:11 oxycodone AdvReac Mild Itching Uncoded 07/21/22 18:11 <Luisana Doe, ENROLLMENT REPRESENTATIVE - Last Filed: 07/22/22 01:55> Review of Systems Review of Systems: CONSTITUTIONAL: Denies fever, chills, or sweats. EYES: Denies visual changes, redness, or discharge. ENT: Denies rhinorrhea, congestion, sore thr
[2022-07-21 18:44] LABS: Appearance Urine Slightly Cloudy (Clear); Bilirubin Urine Negative (Negative); Blood Urine Trace-lysed (Negative); Color Urine Light Yellow (Yellow); Glucose Urine UA 3+ mg/dL (Negative); Ketones Urine 1+ mg/dL (Negative); Leukocyte Esterase Ur Trace LEU/UL (Negative); Nitrate Urine Negative (Negative); Protein Urine 1+ mg/dL (Negative); Specific Grav Ur 1.015 (1.001-1.035); Urobilinogen Urine 0.2 mg/dL (<2.0)
--- NOTE | 2022-07-21 18:44 | PC.NURSE ---
talked to nisha in the lab to add on the BNP ordered - NC @ 4544
[2022-07-21 18:56] LABS: Bacteria Urine Trace /hpf; Squamous Epithelial Cell Urine Few /hpf (Few); WBC Urine 16-20 /hpf
[2022-07-21 19:12] LABS: Add Urine Microscopic? YES
[2022-07-21 19:13] LABS: NT Pro B Type Natriuretic Pept 1690 pg/mL (5-100)
[2022-07-21] MEDS: INSULIN HUMAN REGULAR (*BKC) 100 UNITS/ML 10 UNITS IV PUSH (19:44)
[2022-07-21] MEDS: SODIUM CHLORIDE 0.9% IV 500 ML 999 ML IV CONT (19:44)
--- NOTE | 2022-07-21 20:51 | PC.NURSE ---
blood glucose 262 at 205
[2022-07-21 20:52] LABS: Glucose Point of Care 262 mg/dl (65-105)
[2022-07-21 21:24] LABS: Alveolar/Arterial O2 Gradient 39.1 mmHg; Base Excess ABG 4.1 mEq/l (+/-2.0); Fractional Inspired Oxygen 21 %; HCO3 ABG 26.6 mEq/l (22.0-26.0); Oxygen Saturation ABG 95.9 % (95.0-100.0); Oxyhemoglobin 94.3 % THb (90.0-100.0); PCO2 ABG 32.9 mmHg (35.0-45.0); PO2 ABG 71.2 mmHg (80.0-100.0); PO2 FiO2 Ratio Arterial Blood 3.39 %
[2022-07-21 21:29] LABS: Modified Allen's Test Pass; Site Drawn RIGHT RADIAL; pH ABG 7.526 (7.350-7.450)
[2022-07-21 22:31] LABS: Influenza A QL RT-PCR Negative (Negative); Influenza B QL RT-PCR Negative (Negative); SARS-CoV-2 RNA PCR Negative
[2022-07-21] MEDS: INSULIN GLARGINE (*BKC) 100 UNITS/ML 40 UNITS SUB-Q (23:11)
[2022-07-22] VITALS (12 sets, daily range): BP systolic 152–192; BP diastolic 58–78; PULSE 77–109; RESP 16–23; TEMP 36.2–36.9; O2SAT 94–97; BMI 51.5
--- NOTE | 2022-07-22 00:42 | ADMGEN ---
This patient, Aleksandra Berman, was admitted to Medical Room 344-01. Patient/family oriented to hospital policies and general routines including ID bracelet, bed and alarms, visiting hours, pain management, procedures, bathroom and other care routines, personal items, smoking policy, room service/diet, and visiting hours. Information on how to activate the Rapid Response Team has been discussed. Patient/Family are encouraged to report perceived risks to care and to ask questions if they do not understand what they are told or what they should do.
[2022-07-22 00:48] LABS: Glucose Point of Care 300 mg/dl (65-105)
--- NOTE | 2022-07-22 02:44 | PM.IMHP ---
H&P: HPI History of Present Illness Date/Time: 07/22/22 01:00 Chief Complaint: Confusion, high blood sugar Narrative: 76-year-old female with a past medical history of insulin-dependent diabetes mellitus, grade 2 diastolic heart failure, moderate pulmonary hypertension, urge incontinence, COPD and chronic kidney disease who presented to the ER due to high blood sugars and confusion. Source of information is obtained from the patient who is a fair historian regarding her past medical history but poor historian regarding the events of the last several days and from review of ER records. The patient's son at checked on her yesterday and her sugars were in the 200s. The patient's son brought the patient to the ER when he went to see the patient and found her to be more confused today and he found that her blood sugars were reading high on her Dexcom (greater than 500). The patient is alert and oriented to person date of and the fact that she is in the hospital. She does not know the month year or the name of the president. She is quite distressed that she is confused like this. She does state that she thinks that she is developing some mild dementia at baseline and has mention this to her doctor in the past. In fact when she followed up with Endocrinology this past week C let the physician know that she was having trouble keeping track of her insulin and blood sugars despite different record keeping methods and she felt that this part of why her diabetes is uncontrolled. Her degree of confusion has markedly increased in the last 24 hours. As a result she does not know if she has taken her insulin or her other medications in the last 24-48 hours. Her other symptoms include vomiting of bilious material for the last 2-3 days. It is been accompanied by increased urinary frequency but she denies any dysuria or hematuria. She has not noticed any foul-smelling urine. She reports that she has felt hot. She has not checked her temperature at home. She had a temperature of 99.3? in the ER. She reports that she has chronic shortness of breath for the last month or so and has had a productive cough as well. She was having the respiratory symptoms in May and had x-ray at that time that was negative. Her repeat x-ray was performed on July 11 actually demonstrate no acute cardiopulmonary process as well. She reports chronic dyspnea on exertion and orthopnea that is unchanged from baseline. She reports that her cough has worsened over recent days. She denies any recent ill contacts. Her COVID, and influenza PCRs were negative. She is fully vaccinated and boosted against COVID. She denies any abdominal pain. She has chronic loose stools following her cholecystectomy in takes cholestyramine at home. She denies any hematochezia or melena. She denies any chest pain. She does have obstructive sleep apnea and is compliant with her CPAP therapy. She has chronic lower extremity edema which she reports has been stable since her recent hospitalization. She has chronic lower extremity erythema which she thinks is at about her baseline. She is complaining of increased restless leg movements today but she is not sure she took her medications this morning. She is unsure if she took any of her medications this morning. She complains of dysphagia that has been going on for months. She already has a follow-up with Dr. Grossman 40 EGD 08/04/2022. Review of Systems Review of Systems: 12 systems were reviewed with pertinent positives and negatives per HPI. Except as documented in the HPI, all other systems were reviewed and are negative. Despite being confused as to the month year hurt age and the name of the current president she is a relatively good historian regarding her past medical history in for the most part recent events. [facility] Past Medical History Medical History (Updated 07/22/22 @ 03:39 by Kalee Mccoy DO) Anemia Anxiety BMI 40.
[2022-07-22] MEDS: METOPROLOL TARTRATE INJ 5 MG/5 ML VIAL IV PUSH (02:52)
[2022-07-22 02:54] LABS: Glucose Point of Care 363 mg/dl (65-105)
[2022-07-22] MEDS: INSULIN ASPART (*BKC) 100 UNITS/ML 8 UNITS SUB-Q (03:34)
[2022-07-22] MEDS: DIVALPROEX SODIUM DR 250 MG TABEC 500 MG PO ×2 (03:34→20:31)
[2022-07-22 04:09] LABS: Glucose Point of Care 317 mg/dl (65-105)
[2022-07-22 05:54] LABS: Anion Gap 12 mmol/L (8-16); Blood Urea Nitrogen 18 mg/dL (7-17); Carbon Dioxide 30 mmol/L (22-30); Chloride 96 mmol/L (98-107); Estimated CRCL calculation 58 ml/min; Estimated Glomerular Filt Rate 48; Glucose 284 mg/dL (65-110); Potassium 3.6 mmol/L (3.4-5.0); Sodium 138 mmol/L (137-145)
[2022-07-22 06:13] LABS: Basophils Absolute Auto 0.1 K/mm3 (0.0-0.1); Basophils Percent Auto 0.5 % (0.2-1.2); Eosinophils Absolute Auto 0.1 K/mm3 (0-0.3); Eosinophils Percent Auto 0.9 % (0-4.4); Hematocrit 32.1 % (37.0-47.0); Hemoglobin 10.1 g/dL (12.0-15.0); Immature Granulocyte Absolute 0.06 K/mm3 (0.00-0.031); Immature Granulocyte Percent A 0.6 % (0-0.5); Lymphocytes Absolute Auto 1.48 K/mm3 (0.9-3.2); Lymphocytes Percent Auto 14.4 % (18.3-44.2); Mean Corpuscular HGB Conc 31.5 g/dl (32-36); Mean Corpuscular Hemoglobin 28.1 pg (26-34); Mean Corpuscular Volume 89.4 fl (80-100); Mean Platelet Volume 9.8 fl (7.4-10.4); Monocytes Absolute Auto 0.7 K/mm3 (0.1-0.6); Monocytes Percent Auto 7.2 % (2.6-8.5); Neutrophils Absolute Auto 7.8 K/mm3 (1.3-6.7); Neutrophils Percent Auto 76.4 % (45.5-73.1); Platelet Count Result 251 k/mm3 (150-375); Red Blood Count 3.59 M/mm3 (4.2-5.4); Red Cell Distribution Width 15.7 % (11.5-14.5); White Blood Count 10.3 K/mm3 (4.5-10.0)
[2022-07-22 08:26] LABS: Glucose Point of Care 195 mg/dl (65-105)
[2022-07-22] MEDS: ENOXAPARIN 40 MG/0.4 ML SYRINGE SUB-Q (09:31)
[2022-07-22] MEDS: allopurinoL 100 MG TABLET PO (09:31)
[2022-07-22] MEDS: SODIUM CHLORIDE 0.9% IV 1,000 ML 100 ML IV CONT (09:31)
[2022-07-22] MEDS: VENLAFAXINE HCL XR 75 MG CAP.ER.24H 150 MG PO (09:31)
[2022-07-22] MEDS: carvediloL 25 MG TABLET PO ×2 (09:32→20:32)
[2022-07-22] MEDS: PANTOPRAZOLE SODIUM IV 40 MG VIAL IV PUSH (09:32)
[2022-07-22] MEDS: PRAMIPEXOLE 0.5 MG TABLET PO ×2 (09:32→17:58)
[2022-07-22] MEDS: LOSARTAN POTASSIUM 25 MG TABLET PO (09:32)
[2022-07-22] MEDS: GABAPENTIN 100 MG CAPSULE PO ×3 (09:32→17:58)
[2022-07-22] MEDS: NORTRIPTYLINE HCL 25 MG CAPSULE PO (09:32)
--- NOTE | 2022-07-22 10:30 | PM.IMPN ---
Progress Note: A&P Assessment and Plan (1) CHF (congestive heart failure): Qualifiers: Heart failure type: diastolic Heart failure chronicity: chronic Qualified Code(s): I50.32 - Chronic diastolic (congestive) heart failure Code(s): I50.9 - Heart failure, unspecified Status: Acute Assessment and Plan: CT shows mild pulmonary edema chest x-ray shows diffuse lung disease which may reflect interstitial edema and/or pneumonia currently on 2 mg p.o. b.i.d. of Bumex at home, change 1 mg IV b.i.d. x4 doses BNP 1690 Trend chest x-rays trend urine output daily weights strict I&Os (2) Pneumonia: Qualifiers: Laterality: bilateral Lung location: unspecified part of lung Pneumonia type: due to unspecified organism Qualified Code(s): J18.9 - Pneumonia, unspecified organism Code(s): J18.9 - Pneumonia, unspecified organism Status: Acute Assessment and Plan: CT indicates pneumonia blood and urine cultures pending sputum culture ordered continue azithromycin and ceftriaxone WBC 10.3 Adjust antibiotics as indicated (3) Acute metabolic encephalopathy: Code(s): G93.41 - Metabolic encephalopathy Status: Acute Assessment and Plan: Delirium likely due to underlying acute illness. Could be related to acute infection CT of brain unremarkable. Continue antibiotic Adjust therapy as indicated Could be her baseline as that is unknown, and she seems to only be A&O x 2 (4) Type 2 diabetes mellitus with hyperglycemia, with long-term current use of insulin: Code(s): E11.65 - Type 2 diabetes mellitus with hyperglycemia; Z79.4 - terminal supervisor (current) use of insulin Status: Acute Assessment and Plan: current glucose is 284 Accu-Cheks AC and HS insulin sliding scale continue home long-acting at 40 units, 20 units with meals trend glucose hypoglycemia protocol (5) Obstructive sleep apnea on CPAP: Code(s): G47.33 - Obstructive sleep apnea (adult) (pediatric); Z99.89 - Dependence on other enabling machines and devices Status: Acute Assessment and Plan: continue CPAP at home settings (6) Memory loss: Code(s): R41.3 - Other amnesia Status: Acute Assessment and Plan: Patient may have some early cognitive impairment/early dementia developing but this cannot be evaluated in the acute setting given the patient's acute illness. follow-up for neuro cognitive evaluation as outpatient. (7) Frequent loose stools: Qualifiers: Diarrhea type: unspecified type Qualified Code(s): R19.7 - Diarrhea, unspecified Code(s): R19.7 - Diarrhea, unspecified Status: Acute Assessment and Plan: Due to irritable bowel syndrome and status post cholecystectomy. Continue home cholestyramine. (8) Dysphagia: Qualifiers: Dysphagia type: esophageal phase Qualified Code(s): R13.19 - Other dysphagia Code(s): R13.10 - Dysphagia, unspecified Status: Acute Assessment and Plan: complaints when the patient speech therapy ordered EGD ordered with Dr. Dunlap 08/04/2022 Time Spent With Patient Time with patient: Greater than 35 minutes Subjective Date/time seen: 07/22/22 10:30 Interval history: 07/23/22 1030 patient was alert oriented x2. Patient did not know the president was or the month she thought it was November. She was concerned that her son was not very it she wanted know where he was. She currently denied any chest pain, nausea, vomiting, diarrhea, chills, constipation, fevers, sweats. Patient stated that she does feel weak and that she is still little short of breath. She appears to be very drowsy and tired. 07/22/22? 01:00 76-year-old female with a past medical history of insulin-dependent diabetes mellitus, grad
--- NOTE | 2022-07-22 10:30 | P.PNIM_ITS ---
Progress Note: A&P Assessment and Plan (1) CHF (congestive heart failure): Qualifiers: Heart failure type: diastolic Heart failure chronicity: chronic Qualified Code(s): I50.32 - Chronic diastolic (congestive) heart failure Code(s): I50.9 - Heart failure, unspecified Status: Acute Assessment and Plan: * CT shows mild pulmonary edema * chest x-ray shows diffuse lung disease which may reflect interstitial edema and/or pneumonia * currently on 2 mg p.o. b.i.d. of Bumex at home, change 1 mg IV b.i.d. x4 doses * BNP 1690 * Trend chest x-rays * trend urine output * daily weights * strict I&Os (2) Pneumonia: Qualifiers: Laterality: bilateral Lung location: unspecified part of lung Pneumonia type: due to unspecified organism Qualified Code(s): J18.9 - Pneumonia, unspecified organism Code(s): J18.9 - Pneumonia, unspecified organism Status: Acute Assessment and Plan: * CT indicates pneumonia * blood and urine cultures pending * sputum culture ordered * continue azithromycin and ceftriaxone * WBC 10.3 * Adjust antibiotics as indicated (3) Acute metabolic encephalopathy: Code(s): G93.41 - Metabolic encephalopathy Status: Acute Assessment and Plan: * Delirium likely due to underlying acute illness. * Could be related to acute infection * CT of brain unremarkable. * Continue antibiotic * Adjust therapy as indicated * Could be her baseline as that is unknown, and she seems to only be A&O x 2 (4) Type 2 diabetes mellitus with hyperglycemia, with long-term current use of insulin: Code(s): E11.65 - Type 2 diabetes mellitus with hyperglycemia; Z79.4 - alf (current) use of insulin Status: Acute Assessment and Plan: * current glucose is 284 * Accu-Cheks AC and HS * insulin sliding scale * continue home long-acting at 40 units, 20 units with meals * trend glucose * hypoglycemia protocol (5) Obstructive sleep apnea on CPAP: Code(s): G47.33 - Obstructive sleep apnea (adult) (pediatric); Z99.89 - Dependence on other enabling machines and devices Status: Acute Assessment and Plan: * continue CPAP at home settings (6) Memory loss: Code(s): R41.3 - Other amnesia Status: Acute Assessment and Plan: * Patient may have some early cognitive impairment/early dementia developing but this cannot be evaluated in the acute setting given the patient's acute illness. * follow-up for neuro cognitive evaluation as outpatient. (7) Frequent loose stools: Qualifiers: Diarrhea type: unspecified type Qualified Code(s): R19.7 - Diarrhea, unspecified Code(s): R19.7 - Diarrhea, unspecified Status: Acute Assessment and Plan: * Due to irritable bowel syndrome and status post cholecystectomy. * Continue home cholestyramine. (8) Dysphagia: Qualifiers: Dysphagia type: esophageal phase Qualified Code(s): R13.19 - Other dysphagia Code(s): R13.10 - Dysphagia, unspecified Status: Acute Assessment and Plan: * complaints when the patient * speech therapy ordered * EGD ordered with Dr. Dunlap 08/04/2022 Time Spent With Patient Time with patient: Greater than 35 magen
[2022-07-22 12:29] LABS: Glucose Point of Care 278 mg/dl (65-105)
[2022-07-22] MEDS: INSULIN ASPART (*BKC) 100 UNITS/ML SUB-Q ×2 (12:51→17:57)
[2022-07-22 17:17] LABS: Glucose Point of Care 314 mg/dl (65-105)
[2022-07-22] MEDS: INSULIN ASPART (*BKC) 100 UNITS/ML 12 UNITS SUB-Q (17:59)
[2022-07-22] MEDS: INSULIN GLARGINE (*BKC) 100 UNITS/ML 36 UNITS SUB-Q (20:36)
[2022-07-22 20:40] LABS: Glucose Point of Care 314 mg/dl (65-105)
[2022-07-23] MEDS: SODIUM CHLORIDE 0.9% IV 1,000 ML 100 ML IV CONT (02:45)
[2022-07-23 04:31] VITALS: BP 137/58; PULSE 79; RESP 18; TEMP 36.6; O2SAT 95
[2022-07-23 05:22] LABS: Basophils Percent Auto 0.4 % (0.2-1.2); Eosinophils Absolute Auto 0.2 K/mm3 (0-0.3); Eosinophils Percent Auto 1.6 % (0-4.4); Hematocrit 32.5 % (37.0-47.0); Immature Granulocyte Absolute 0.04 K/mm3 (0.00-0.031); Immature Granulocyte Percent A 0.4 % (0-0.5); Lymphocytes Absolute Auto 1.55 K/mm3 (0.9-3.2); Lymphocytes Percent Auto 15.4 % (18.3-44.2); Mean Corpuscular HGB Conc 30.8 g/dl (32-36); Mean Corpuscular Hemoglobin 28.7 pg (26-34); Mean Corpuscular Volume 93.1 fl (80-100); Mean Platelet Volume 9.6 fl (7.4-10.4); Monocytes Absolute Auto 0.8 K/mm3 (0.1-0.6); Monocytes Percent Auto 8.4 % (2.6-8.5); Neutrophils Absolute Auto 7.4 K/mm3 (1.3-6.7); Neutrophils Percent Auto 73.8 % (45.5-73.1); Platelet Count Result 257 k/mm3 (150-375); Red Blood Count 3.49 M/mm3 (4.2-5.4); Red Cell Distribution Width 15.9 % (11.5-14.5)
[2022-07-23 05:34] LABS: Alanine Aminotransferase 17 U/L (6-35); Albumin Level 3.8 g/dL (3.5-5.1); Alkaline Phosphatase 103 U/L (38-126); Anion Gap 10 mmol/L (8-16); Aspartate Amino Transferase 20 U/L (14-36); Bilirubin,Total 0.5 mg/dL (0.2-1.3); Blood Urea Nitrogen 22 mg/dL (7-17); Calcium 8.7 mg/dL (8.4-10.2); Carbon Dioxide 25 mmol/L (22-30); Chloride 98 mmol/L (98-107); Estimated CRCL calculation 46 ml/min; Estimated Glomerular Filt Rate 37; Glucose 208 mg/dL (65-110); Magnesium 1.9 mg/dL (1.6-2.3); Potassium 4.2 mmol/L (3.4-5.0); Sodium 133 mmol/L (137-145)
[2022-07-23 08:43] LABS: Glucose Point of Care 228 mg/dl (65-105)
[2022-07-23] MEDS: ENOXAPARIN 40 MG/0.4 ML SYRINGE SUB-Q (10:29)
[2022-07-23] MEDS: VENLAFAXINE HCL XR 75 MG CAP.ER.24H 150 MG PO (10:29)
[2022-07-23] MEDS: allopurinoL 100 MG TABLET PO (10:29)
[2022-07-23] MEDS: PANTOPRAZOLE SODIUM IV 40 MG VIAL IV PUSH (10:30)
[2022-07-23] MEDS: NORTRIPTYLINE HCL 25 MG CAPSULE PO (10:30)
[2022-07-23] MEDS: GABAPENTIN 100 MG CAPSULE PO ×3 (10:30→18:39)
[2022-07-23] MEDS: LOSARTAN POTASSIUM 25 MG TABLET PO (10:30)
[2022-07-23 10:31] VITALS: PULSE 87
[2022-07-23] MEDS: PRAMIPEXOLE 0.5 MG TABLET PO ×2 (10:31→18:39)
[2022-07-23] MEDS: carvediloL 25 MG TABLET PO ×2 (10:31→20:29)
[2022-07-23] MEDS: INSULIN ASPART (*BKC) 100 UNITS/ML SUB-Q ×2 (10:34→14:13)
[2022-07-23] MEDS: INSULIN ASPART (*BKC) 100 UNITS/ML 12 UNITS SUB-Q ×3 (10:35→18:40)
--- NOTE | 2022-07-23 12:22 | PCSTNOTE ---
Please refer to the Bedside Swallow Evaluation in the EMR. Please note, silent aspiration cannot be ruled out at bedside.
[2022-07-23 12:28] LABS: Glucose Point of Care 285 mg/dl (65-105)
[2022-07-23 13:42] VITALS: BP 139/59; PULSE 86; RESP 16; TEMP 36.6; O2SAT 97
[2022-07-23 14:15] LABS: Glucose Point of Care 252 mg/dl (65-105)
--- NOTE | 2022-07-23 17:09 | P.PNIM_ITS ---
Progress Note: A&P Assessment and Plan (1) CHF (congestive heart failure): Qualifiers: Heart failure chronicity: chronic Heart failure type: diastolic Qualified Code(s): I50.32 - Chronic diastolic (congestive) heart failure Code(s): I50.9 - Heart failure, unspecified Status: Acute Assessment and Plan: * CT shows mild pulmonary edema * chest x-ray shows diffuse lung disease which may reflect interstitial edema and/or pneumonia * currently on 2 mg p.o. b.i.d. of Bumex at home. * IV fluid saline locked 07/23 * BNP 1690 * Trend chest x-rays * trend urine output * daily weights * strict I&Os (2) Pneumonia: Qualifiers: Laterality: bilateral Lung location: unspecified part of lung Pneumonia type: due to unspecified organism Qualified Code(s): J18.9 - Pneumonia, unspecified organism Code(s): J18.9 - Pneumonia, unspecified organism Status: Acute Assessment and Plan: * CT indicates pneumonia * blood and urine cultures pending * sputum culture ordered * continue azithromycin and ceftriaxone, started 07/21/2022 * WBC 10.3 * Adjust antibiotics as indicated (3) Acute metabolic encephalopathy: Code(s): G93.41 - Metabolic encephalopathy Status: Acute Assessment and Plan: * Delirium likely due to underlying acute illness. * Could be related to acute infection * CT of brain unremarkable. * Continue antibiotic * Adjust therapy as indicated * Could be her baseline as that is unknown, and she seems to only be A&O x 2 * 07/23/2022 appears improving. Patient is intermittently confused, but answers all questions appropriately. 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 Status: Acute Assessment and Plan: * current glucose is 284 * Accu-Cheks AC and HS * insulin sliding scale * increase Lantus to 40 units at HS, 12 units with meals * trend glucose * hypoglycemia protocol (5) Obstructive sleep apnea on CPAP: Code(s): G47.33 - Obstructive sleep apnea (adult) (pediatric); Z99.89 - Dependence on other enabling machines and devices Status: Acute Assessment and Plan: * continue CPAP at home settings (6) Memory loss: Code(s): R41.3 - Other amnesia Status: Acute Assessment and Plan: * Patient may have some early cognitive impairment/early dementia developing but this cannot be evaluated in the acute setting given the patient's acute illness. * follow-up for neuro cognitive evaluation as outpatient. patient lb does report she had a previous neuro cognitive evaluation earlier this year or last year and he was told the patient did not have dementia. He also was reported the patient was told she had to use her CPAP machine but he is not certain that this is happening. (7) Frequent loose stools: Qualifiers: Diarrhea type: unspecified type Qualified Code(s): R19.7 - Diarrhea, unspecified Code(s): R19.7 - Diarrhea, unspecified Status: Acute Assessment and Plan: * Due to irritable bowel syndrome and status post cholecystectomy. * Continue home cholestyramine. * Resolved (8) Dysphagia: Qualifiers: Dysphagia type: esophageal phase Qualified Code(s): R13.19 - Other dysphagia Code(s): R13.10 - Dysphagia, unspecified Status: Acute Assessment
--- NOTE | 2022-07-23 17:09 | PM.IMPN ---
Progress Note: A&P Assessment and Plan (1) CHF (congestive heart failure): Qualifiers: Heart failure chronicity: chronic Heart failure type: diastolic Qualified Code(s): I50.32 - Chronic diastolic (congestive) heart failure Code(s): I50.9 - Heart failure, unspecified Status: Acute Assessment and Plan: CT shows mild pulmonary edema chest x-ray shows diffuse lung disease which may reflect interstitial edema and/or pneumonia currently on 2 mg p.o. b.i.d. of Bumex at home. IV fluid saline locked 07/23 BNP 1690 Trend chest x-rays trend urine output daily weights strict I&Os (2) Pneumonia: Qualifiers: Laterality: bilateral Lung location: unspecified part of lung Pneumonia type: due to unspecified organism Qualified Code(s): J18.9 - Pneumonia, unspecified organism Code(s): J18.9 - Pneumonia, unspecified organism Status: Acute Assessment and Plan: CT indicates pneumonia blood and urine cultures pending sputum culture ordered continue azithromycin and ceftriaxone, started 07/21/2022 WBC 10.3 Adjust antibiotics as indicated (3) Acute metabolic encephalopathy: Code(s): G93.41 - Metabolic encephalopathy Status: Acute Assessment and Plan: Delirium likely due to underlying acute illness. Could be related to acute infection CT of brain unremarkable. Continue antibiotic Adjust therapy as indicated Could be her baseline as that is unknown, and she seems to only be A&O x 2 07/23/2022 appears improving. Patient is intermittently confused, but answers all questions appropriately. 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 Status: Acute Assessment and Plan: current glucose is 284 Accu-Cheks AC and HS insulin sliding scale increase Lantus to 40 units at HS, 12 units with meals trend glucose hypoglycemia protocol (5) Obstructive sleep apnea on CPAP: Code(s): G47.33 - Obstructive sleep apnea (adult) (pediatric); Z99.89 - Dependence on other enabling machines and devices Status: Acute Assessment and Plan: continue CPAP at home settings (6) Memory loss: Code(s): R41.3 - Other amnesia Status: Acute Assessment and Plan: Patient may have some early cognitive impairment/early dementia developing but this cannot be evaluated in the acute setting given the patient's acute illness. follow-up for neuro cognitive evaluation as outpatient. patient lb does report she had a previous neuro cognitive evaluation earlier this year or last year and he was told the patient did not have dementia. He also was reported the patient was told she had to use her CPAP machine but he is not certain that this is happening. (7) Frequent loose stools: Qualifiers: Diarrhea type: unspecified type Qualified Code(s): R19.7 - Diarrhea, unspecified Code(s): R19.7 - Diarrhea, unspecified Status: Acute Assessment and Plan: Due to irritable bowel syndrome and status post cholecystectomy. Continue home cholestyramine. Resolved (8) Dysphagia: Qualifiers: Dysphagia type: esophageal phase Qualified Code(s): R13.19 - Other dysphagia Code(s): R13.10 - Dysphagia, unspecified Status: Acute Assessment and Plan: complaints when the patient speech therapy ordered and recommend outpatient speech therapy evaluation, but no acute evaluation needed EGD ordered with Dr. Dunlap 08/04/2022 Plan code status: Full code Disposition: Possible discharge home with home health versus SNF. Care coordination is following. Disposition is discussed with the patient's son and awaiting decision. Time Spent With Patient Time with patient: 25 - 35 minutes (
[2022-07-23 17:36] LABS: Glucose Point of Care 160 mg/dl (65-105)
[2022-07-23 20:00] VITALS: PULSE 75; RESP 18; O2SAT 94
[2022-07-23 20:13] VITALS: BP 141/67; PULSE 77; RESP 18; TEMP 36.6; O2SAT 94
[2022-07-23 20:29] VITALS: PULSE 75
[2022-07-23] MEDS: DIVALPROEX SODIUM DR 250 MG TABEC 500 MG PO (20:29)
[2022-07-23] MEDS: INSULIN GLARGINE (*BKC) 100 UNITS/ML 40 UNITS SUB-Q (20:30)
[2022-07-23 20:42] LABS: Glucose Point of Care 220 mg/dl (65-105)
[2022-07-24 03:56] VITALS: BP 140/53; PULSE 80; RESP 18; TEMP 36.2; O2SAT 96
[2022-07-24 06:22] LABS: Anion Gap 12 mmol/L (8-16); Blood Urea Nitrogen 31 mg/dL (7-17); Calcium 8.4 mg/dL (8.4-10.2); Carbon Dioxide 24 mmol/L (22-30); Chloride 96 mmol/L (98-107); Estimated CRCL calculation 34 ml/min; Estimated Glomerular Filt Rate 29; Glucose 154 mg/dL (65-110); Potassium 3.7 mmol/L (3.4-5.0); Sodium 132 mmol/L (137-145)
[2022-07-24 08:32] LABS: Glucose Point of Care 169 mg/dl (65-105)
[2022-07-24] MEDS: ENOXAPARIN 40 MG/0.4 ML SYRINGE SUB-Q (09:58)
[2022-07-24] MEDS: POTASSIUM CHLORIDE 20 MEQ PACKET (FOR LIQUID) 40 MEQ PO (09:58)
[2022-07-24] MEDS: GABAPENTIN 100 MG CAPSULE PO ×3 (09:58→17:54)
[2022-07-24] MEDS: BUMETANIDE INJ 1 MG/4 ML VIAL IV PUSH ×2 (09:59→17:54)
[2022-07-24] MEDS: PANTOPRAZOLE SODIUM IV 40 MG VIAL IV PUSH (09:59)
[2022-07-24] MEDS: PRAMIPEXOLE 0.5 MG TABLET PO ×2 (09:59→17:53)
[2022-07-24] MEDS: INSULIN ASPART (*BKC) 100 UNITS/ML 12 UNITS SUB-Q ×3 (09:59→17:54)
[2022-07-24] MEDS: allopurinoL 100 MG TABLET PO (09:59)
[2022-07-24] MEDS: VENLAFAXINE HCL XR 75 MG CAP.ER.24H 150 MG PO (09:59)
[2022-07-24] MEDS: LOSARTAN POTASSIUM 25 MG TABLET PO (09:59)
[2022-07-24 10:00] VITALS: PULSE 80
[2022-07-24] MEDS: NORTRIPTYLINE HCL 25 MG CAPSULE PO (10:00)
[2022-07-24] MEDS: carvediloL 25 MG TABLET PO ×2 (10:00→20:51)
[2022-07-24 12:29] LABS: Glucose Point of Care 201 mg/dl (65-105)
[2022-07-24] MEDS: INSULIN ASPART (*BKC) 100 UNITS/ML SUB-Q (12:53)
[2022-07-24 14:00] VITALS: BP 158/67; PULSE 70; RESP 20; TEMP 37; O2SAT 96
--- NOTE | 2022-07-24 16:27 | P.PNIM_ITS ---
Progress Note: A&P Assessment and Plan (1) CHF (congestive heart failure): Qualifiers: Heart failure type: diastolic Heart failure chronicity: chronic Qualified Code(s): I50.32 - Chronic diastolic (congestive) heart failure Code(s): I50.9 - Heart failure, unspecified Status: Acute Assessment and Plan: * CT shows mild pulmonary edema * chest x-ray shows diffuse lung disease which may reflect interstitial edema and/or pneumonia * currently on 2 mg p.o. b.i.d. of Bumex at home. * IV fluid saline locked 07/23 * BNP 1690 07/21/2022. * 07/24/22 Bumex changed to 1 mg IV b.i.d. times 3 re-evaluate BMP and respiratory status in the morning. * daily weights - Daily weights appear an accurate. Weight on 07/17 112.8 kg, 07/21 to 07/22 weight 145 kg, and 07/24 weight 118 kg. She may be up 6 kg, however weights are inconsistent * strict I&Os - urine output not quantified by nursing and that balance unable to determine by I's and O's, however patient does have increasing edema bilateral lower extremity especially when sitting up in the chair, complaints of shortness of breath. * BMP shows sodium 132, potassium 3.7, chloride 96, BUN 31, creatinine 1.7 and EGFR 29, which has worsened after patient was treated with IV hydration. This is likely secondary to hypervolemia. Continue diuresis as above (2) Pneumonia: Qualifiers: Laterality: bilateral Lung location: unspecified part of lung Pneumonia type: due to unspecified organism Qualified Code(s): J18.9 - Pneumonia, unspecified organism Code(s): J18.9 - Pneumonia, unspecified organism Status: Acute Assessment and Plan: * CT indicates pneumonia * blood and urine cultures pending * sputum culture ordered * Treated with azithromycin 07/21 to 07/23. 07/24/2022 transition to oral amoxicillin 1 g Q 8 hours x4 days to complete 7 day antibiotic course. * repeat chest x-ray 07/24 shows persistent right upper lobe airspace opacity consistent with pneumonia but no worsening from previous imaging. Will plan to repeat chest x-ray 10-14 days following discharge * she is afebrile And WBC 10 on 07/23/2022 (3) Acute metabolic encephalopathy: Code(s): G93.41 - Metabolic encephalopathy Status: Acute Assessment and Plan: * Delirium likely due to underlying acute illness. * Could be related to acute infection * CT of brain unremarkable. * Continue antibiotic * Adjust therapy as indicated * Could be her baseline as that is unknown, and she seems to only be A&O x 2 * 07/23/2022 appears improving. Patient is intermittently confused, but answers all questions appropriately. 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 It was noted to be 408 in the ED and was treated with IV insulin * Accu-Cheks AC and HS * continue moderate dose aspart sliding scale insulin with meals * continue Lantus to 40 units at HS, 12 units with meals * trend glucose- fasting glucose 154 this morning * hypoglycemia protocol p.r.n. (5) Obstructive sleep apnea on CPAP: Code(s): G47.33 - Obstructive sleep apnea (adult) (pediatric); Z99.89 - Dependence on other enabling machines and devices Status: Acute Assessment and Plan: * continue CPAP at home settings. * Patient reports wearing CPAP for approximat
--- NOTE | 2022-07-24 16:27 | PM.IMPN ---
Progress Note: A&P Assessment and Plan (1) CHF (congestive heart failure): Qualifiers: Heart failure type: diastolic Heart failure chronicity: chronic Qualified Code(s): I50.32 - Chronic diastolic (congestive) heart failure Code(s): I50.9 - Heart failure, unspecified Status: Acute Assessment and Plan: CT shows mild pulmonary edema chest x-ray shows diffuse lung disease which may reflect interstitial edema and/or pneumonia currently on 2 mg p.o. b.i.d. of Bumex at home. IV fluid saline locked 07/23 BNP 1690 07/21/2022. 07/24/22 Bumex changed to 1 mg IV b.i.d. times 3 re-evaluate BMP and respiratory status in the morning. daily weights - Daily weights appear an accurate. Weight on 07/17 112.8 kg, 07/21 to 07/22 weight 145 kg, and 07/24 weight 118 kg. She may be up 6 kg, however weights are inconsistent strict I&Os - urine output not quantified by nursing and that balance unable to determine by I's and O's, however patient does have increasing edema bilateral lower extremity especially when sitting up in the chair, complaints of shortness of breath. BMP shows sodium 132, potassium 3.7, chloride 96, BUN 31, creatinine 1.7 and EGFR 29, which has worsened after patient was treated with IV hydration. This is likely secondary to hypervolemia. Continue diuresis as above (2) Pneumonia: Qualifiers: Laterality: bilateral Lung location: unspecified part of lung Pneumonia type: due to unspecified organism Qualified Code(s): J18.9 - Pneumonia, unspecified organism Code(s): J18.9 - Pneumonia, unspecified organism Status: Acute Assessment and Plan: CT indicates pneumonia blood and urine cultures pending sputum culture ordered Treated with azithromycin 07/21 to 07/23. 07/24/2022 transition to oral amoxicillin 1 g Q 8 hours x4 days to complete 7 day antibiotic course. repeat chest x-ray 07/24 shows persistent right upper lobe airspace opacity consistent with pneumonia but no worsening from previous imaging. Will plan to repeat chest x-ray 10-14 days following discharge she is afebrile And WBC 10 on 07/23/2022 (3) Acute metabolic encephalopathy: Code(s): G93.41 - Metabolic encephalopathy Status: Acute Assessment and Plan: Delirium likely due to underlying acute illness. Could be related to acute infection CT of brain unremarkable. Continue antibiotic Adjust therapy as indicated Could be her baseline as that is unknown, and she seems to only be A&O x 2 07/23/2022 appears improving. Patient is intermittently confused, but answers all questions appropriately. stable (4) Type 2 diabetes mellitus with hyperglycemia, with long-term current use of insulin: Code(s): E11.65 - Type 2 diabetes mellitus with hyperglycemia; Z79.4 - correction (current) use of insulin Status: Acute Assessment and Plan: glucose reportedly greater than 500 prior to ED presentation. It was noted to be 408 in the ED and was treated with IV insulin Accu-Cheks AC and HS continue moderate dose aspart sliding scale insulin with meals continue Lantus to 40 units at HS, 12 units with meals trend glucose- fasting glucose 154 this morning hypoglycemia protocol p.r.n. (5) Obstructive sleep apnea on CPAP: Code(s): G47.33 - Obstructive sleep apnea (adult) (pediatric); Z99.89 - Dependence on other enabling machines and devices Status: Acute Assessment and Plan: continue CPAP at home settings. Patient reports wearing CPAP for approximately 90% of the time respiratory therapy notes indicate patient was wearing CPAP at approximately 9:00 p.m. overnight but on standby at 2:52 a.m. CPAP compliance encourage for at least 6 hours daily (6) Memory loss: Code(s): R41.3 - Other amnesia Status: Acute Assessment and Plan: Patient may have some early cognitive impairment/early dementia developing
[2022-07-24] MEDS: MENTHOL 10% / METHYL SALICYLATE 15% 57 GM TUBE 1 APPLIC TOPICAL (17:53)
[2022-07-24] MEDS: SACCHAROMYCES BOULARDII 250 MG CAPSULE PO (17:53)
[2022-07-24] MEDS: EUCERIN CREAM 120 GM JAR 1 APPLIC TOPICAL (17:54)
[2022-07-24 19:25] LABS: Glucose Point of Care 93 mg/dl (65-105)
[2022-07-24 19:52] VITALS: BP 158/67; PULSE 76; RESP 18; TEMP 36.1; O2SAT 100
[2022-07-24 20:00] VITALS: PULSE 69; RESP 18; O2SAT 100
[2022-07-24 20:20] LABS: Glucose Point of Care 76 mg/dl (65-105)
[2022-07-24 20:51] VITALS: PULSE 69
[2022-07-24] MEDS: AMOXICILLIN 500 MG CAPSULE 1000 MG PO (20:51)
[2022-07-24] MEDS: DIVALPROEX SODIUM DR 250 MG TABEC 500 MG PO (20:51)
[2022-07-24] MEDS: INSULIN GLARGINE (*BKC) 100 UNITS/ML 20 UNITS SUB-Q (20:54)
[2022-07-25 05:08] VITALS: BP 147/56; PULSE 71; RESP 18; TEMP 36.1; O2SAT 97
[2022-07-25] MEDS: AMOXICILLIN 500 MG CAPSULE 1000 MG PO ×3 (05:52→21:11)
[2022-07-25 06:16] LABS: Hematocrit 30.3 % (37.0-47.0); Hemoglobin 9.4 g/dL (12.0-15.0); Mean Corpuscular Hemoglobin 27.8 pg (26-34); Mean Corpuscular Volume 89.6 fl (80-100); Mean Platelet Volume 10.1 fl (7.4-10.4); Platelet Count Result 266 k/mm3 (150-375); Red Blood Count 3.38 M/mm3 (4.2-5.4); Red Cell Distribution Width 15.3 % (11.5-14.5); White Blood Count 7.3 K/mm3 (4.5-10.0)
[2022-07-25 06:21] LABS: Anion Gap 13 mmol/L (8-16); Blood Urea Nitrogen 32 mg/dL (7-17); Calcium 9.3 mg/dL (8.4-10.2); Carbon Dioxide 28 mmol/L (22-30); Chloride 98 mmol/L (98-107); Estimated CRCL calculation 38 ml/min; Estimated Glomerular Filt Rate 34; Glucose 187 mg/dL (65-110); Magnesium 2.1 mg/dL (1.6-2.3); Potassium 4.1 mmol/L (3.4-5.0); Sodium 139 mmol/L (137-145)
[2022-07-25 08:42] LABS: Glucose Point of Care 204 mg/dl (65-105)
[2022-07-25] MEDS: INSULIN ASPART (*BKC) 100 UNITS/ML SUB-Q ×2 (09:45→12:59)
[2022-07-25] MEDS: allopurinoL 100 MG TABLET PO (09:45)
[2022-07-25] MEDS: VENLAFAXINE HCL XR 75 MG CAP.ER.24H 150 MG PO (09:46)
[2022-07-25] MEDS: INSULIN ASPART (*BKC) 100 UNITS/ML 12 UNITS SUB-Q ×2 (09:46→12:59)
[2022-07-25] MEDS: ENOXAPARIN 40 MG/0.4 ML SYRINGE SUB-Q (09:47)
[2022-07-25] MEDS: BUMETANIDE INJ 1 MG/4 ML VIAL IV PUSH ×2 (09:47→17:46)
[2022-07-25] MEDS: PANTOPRAZOLE SODIUM IV 40 MG VIAL IV PUSH (09:48)
[2022-07-25] MEDS: NORTRIPTYLINE HCL 25 MG CAPSULE PO (09:48)
[2022-07-25] MEDS: LOSARTAN POTASSIUM 25 MG TABLET PO (09:48)
[2022-07-25] MEDS: EUCERIN CREAM 120 GM JAR 1 APPLIC TOPICAL (09:48)
[2022-07-25] MEDS: GABAPENTIN 100 MG CAPSULE PO ×3 (09:48→17:46)
[2022-07-25] MEDS: PRAMIPEXOLE 0.5 MG TABLET PO ×2 (09:48→17:46)
[2022-07-25 09:49] VITALS: PULSE 70
[2022-07-25] MEDS: carvediloL 25 MG TABLET PO ×2 (09:49→21:11)
[2022-07-25] MEDS: SACCHAROMYCES BOULARDII 250 MG CAPSULE PO ×2 (09:49→17:46)
[2022-07-25 11:28] LABS: Folic Acid 10.4 ng/mL (2.76->20)
[2022-07-25 12:05] LABS: Glucose Point of Care 222 mg/dl (65-105)
[2022-07-25 14:00] VITALS: BP 113/69; PULSE 70; RESP 18; TEMP 36.7; O2SAT 99
--- NOTE | 2022-07-25 14:33 | P.PNIM_ITS ---
Progress Note: A&P Assessment and Plan (1) CHF (congestive heart failure): Qualifiers: Heart failure type: diastolic Heart failure chronicity: chronic Qualified Code(s): I50.32 - Chronic diastolic (congestive) heart failure Code(s): I50.9 - Heart failure, unspecified Status: Acute Assessment and Plan: * CT shows mild pulmonary edema * chest x-ray shows diffuse lung disease which may reflect interstitial edema and/or pneumonia * currently on 2 mg p.o. b.i.d. of Bumex at home. * IV fluid saline locked 07/23 * BNP 1690 07/21/2022. * 07/24/22 Bumex changed to 1 mg IV b.i.d. times 3 re-evaluate BMP and respiratory status in the morning. * daily weights - Daily weights appear an accurate. Weight on 07/17 112.8 kg, 07/21 to 07/22 weight 145 kg, and 07/24 weight 118 kg. She may be up 6 kg, however weights are inconsistent * strict I&Os - urine output not quantified by nursing and that balance unable to determine by I's and O's, however patient does have increasing edema bilateral lower extremity especially when sitting up in the chair, complaints of shortness of breath. * BMP shows sodium 132, potassium 3.7, chloride 96, BUN 31, creatinine 1.7 and EGFR 29, which has worsened after patient was treated with IV hydration. This is likely secondary to hypervolemia. Continue diuresis as above * 07/25/2022 patient still short of breath with exertion. In weight 119 kg, unable to accurately determined fluid balance. continue IV Bumex 1 mg b.i.d. repeat proBNP in a.m. (2) Pneumonia: Qualifiers: Laterality: bilateral Lung location: unspecified part of lung Pneumonia type: due to unspecified organism Qualified Code(s): J18.9 - Pneumonia, unspecified organism Code(s): J18.9 - Pneumonia, unspecified organism Status: Acute Assessment and Plan: * CT indicates pneumonia * blood and urine cultures pending * sputum culture ordered * Treated with azithromycin 07/21 to 07/23. 07/24/2022 transition to oral amoxicillin 1 g Q 8 hours x4 days to complete 7 day antibiotic course. * repeat chest x-ray 07/24 shows persistent right upper lobe airspace opacity consistent with pneumonia but no worsening from previous imaging. Will plan to repeat chest x-ray 10-14 days following discharge * she is afebrile And WBC 10 on 07/23/2022 * 07/25/2022 day 2 of 4 For amoxicillin. continue for now if no improvement and dyspnea with diuresis below considered changing antibiotics. WBC 7.3 patient is afebrile. Cough is nonproductive. Will also add Mucinex b.i.d. (3) Acute metabolic encephalopathy: Code(s): G93.41 - Metabolic encephalopathy Status: Acute Assessment and Plan: * Delirium likely due to underlying acute illness. * Could be related to acute infection * CT of brain unremarkable. * Continue antibiotic * Adjust therapy as indicated * Could be her baseline as that is unknown, and she seems to only be A&O x 2 * 07/23/2022 appears improving. Patient is intermittently confused, but answers all questions appropriately. * stable (4) Type 2 diabetes mellitus with hyperglycemia, with long-term current use of insulin: Code(s): E11.65 - Type 2 diabetes mellitus with hyperglycemia; Z79.4 - snf (current) use of insulin Status: Acute Assessment and Plan: glucose reportedly greater than 500 prior to ED presentation. It was noted to be 408 in the ED and was treated with IV insulin * Accu-Cheks AC and HS * continue moderate dose aspart sliding scale insulin with meals * continue Lantus to 40 units at HS, 12 units with me
--- NOTE | 2022-07-25 14:33 | PM.IMPN ---
Progress Note: A&P Assessment and Plan (1) CHF (congestive heart failure): Qualifiers: Heart failure type: diastolic Heart failure chronicity: chronic Qualified Code(s): I50.32 - Chronic diastolic (congestive) heart failure Code(s): I50.9 - Heart failure, unspecified Status: Acute Assessment and Plan: CT shows mild pulmonary edema chest x-ray shows diffuse lung disease which may reflect interstitial edema and/or pneumonia currently on 2 mg p.o. b.i.d. of Bumex at home. IV fluid saline locked 07/23 BNP 1690 07/21/2022. 07/24/22 Bumex changed to 1 mg IV b.i.d. times 3 re-evaluate BMP and respiratory status in the morning. daily weights - Daily weights appear an accurate. Weight on 07/17 112.8 kg, 07/21 to 07/22 weight 145 kg, and 07/24 weight 118 kg. She may be up 6 kg, however weights are inconsistent strict I&Os - urine output not quantified by nursing and that balance unable to determine by I's and O's, however patient does have increasing edema bilateral lower extremity especially when sitting up in the chair, complaints of shortness of breath. BMP shows sodium 132, potassium 3.7, chloride 96, BUN 31, creatinine 1.7 and EGFR 29, which has worsened after patient was treated with IV hydration. This is likely secondary to hypervolemia. Continue diuresis as above 07/25/2022 patient still short of breath with exertion. In weight 119 kg, unable to accurately determined fluid balance. continue IV Bumex 1 mg b.i.d. repeat proBNP in a.m. (2) Pneumonia: Qualifiers: Laterality: bilateral Lung location: unspecified part of lung Pneumonia type: due to unspecified organism Qualified Code(s): J18.9 - Pneumonia, unspecified organism Code(s): J18.9 - Pneumonia, unspecified organism Status: Acute Assessment and Plan: CT indicates pneumonia blood and urine cultures pending sputum culture ordered Treated with azithromycin 07/21 to 07/23. 07/24/2022 transition to oral amoxicillin 1 g Q 8 hours x4 days to complete 7 day antibiotic course. repeat chest x-ray 07/24 shows persistent right upper lobe airspace opacity consistent with pneumonia but no worsening from previous imaging. Will plan to repeat chest x-ray - days following discharge she is afebrile And WBC 10 on 07/23/2022 07/25/2022 day 2 of 4 For amoxicillin. continue for now if no improvement and dyspnea with diuresis below considered changing antibiotics. WBC 7.3 patient is afebrile. Cough is nonproductive. Will also add Mucinex b.i.d. (3) Acute metabolic encephalopathy: Code(s): G93.41 - Metabolic encephalopathy Status: Acute Assessment and Plan: Delirium likely due to underlying acute illness. Could be related to acute infection CT of brain unremarkable. Continue antibiotic Adjust therapy as indicated Could be her baseline as that is unknown, and she seems to only be A&O x 2 07/23/2022 appears improving. Patient is intermittently confused, but answers all questions appropriately. stable (4) Type 2 diabetes mellitus with hyperglycemia, with long-term current use of insulin: Code(s): E11.65 - Type 2 diabetes mellitus with hyperglycemia; Z79.4 - assisted (current) use of insulin Status: Acute Assessment and Plan: glucose reportedly greater than 500 prior to ED presentation. It was noted to be 408 in the ED and was treated with IV insulin Accu-Cheks AC and HS continue moderate dose aspart sliding scale insulin with meals continue Lantus to 40 units at HS, 12 units with meals trend glucose- fasting glucose 154 this morning hypoglycemia protocol p.r.n. stable (5) Obstructive sleep apnea on CPAP: Code(s): G47.33 - Obstructive sleep apnea (adult) (pediatric); Z99.89 - Dependence on other enabling machines and devices Status: Acute Assessment and Plan: continue CPAP at home settings. Patient reports maryann
[2022-07-25 17:22] LABS: Glucose Point of Care 86 mg/dl (65-105)
[2022-07-25 19:26] VITALS: BP 145/60; PULSE 79; RESP 18; TEMP 36.6; O2SAT 100
[2022-07-25 21:11] VITALS: PULSE 80
[2022-07-25] MEDS: INSULIN GLARGINE (*BKC) 100 UNITS/ML 40 UNITS SUB-Q (21:11)
[2022-07-25] MEDS: guaiFENesin 12 HR 600 MG TABCR PO (21:11)
[2022-07-25] MEDS: DIVALPROEX SODIUM DR 250 MG TABEC 500 MG PO (21:11)
[2022-07-25 21:29] LABS: Glucose Point of Care 171 mg/dl (65-105)
[2022-07-25] MEDS: WATER FOR IRRIGATION, STERILE 1,000 ML BOTTLE 1000 ML (21:30)
[2022-07-26 01:51] VITALS: PULSE 74; O2SAT 96
[2022-07-26 04:39] VITALS: BP 150/63; PULSE 68; RESP 20; TEMP 36.2; O2SAT 99
[2022-07-26] MEDS: AMOXICILLIN 500 MG CAPSULE 1000 MG PO ×2 (06:33→13:06)
[2022-07-26 08:56] LABS: Glucose Point of Care 194 mg/dl (65-105)
[2022-07-26] MEDS: VENLAFAXINE HCL XR 75 MG CAP.ER.24H 150 MG PO (08:57)
[2022-07-26] MEDS: BUMETANIDE INJ 1 MG/4 ML VIAL IV PUSH (08:57)
[2022-07-26] MEDS: allopurinoL 100 MG TABLET PO (08:57)
[2022-07-26] MEDS: GABAPENTIN 100 MG CAPSULE PO ×2 (08:58→13:06)
[2022-07-26] MEDS: PRAMIPEXOLE 0.5 MG TABLET PO (08:58)
[2022-07-26] MEDS: ENOXAPARIN 40 MG/0.4 ML SYRINGE SUB-Q (08:58)
[2022-07-26] MEDS: guaiFENesin 12 HR 600 MG TABCR PO (08:58)
[2022-07-26] MEDS: EUCERIN CREAM 120 GM JAR 1 APPLIC TOPICAL (08:58)
[2022-07-26] MEDS: SACCHAROMYCES BOULARDII 250 MG CAPSULE PO (08:58)
[2022-07-26] MEDS: PANTOPRAZOLE 40 MG TABLET PO (08:58)
[2022-07-26] MEDS: LOSARTAN POTASSIUM 25 MG TABLET PO (08:58)
[2022-07-26] MEDS: INSULIN ASPART (*BKC) 100 UNITS/ML 12 UNITS SUB-Q ×2 (09:05→13:04)
[2022-07-26 09:07] VITALS: PULSE 72
[2022-07-26] MEDS: carvediloL 25 MG TABLET PO (09:07)
[2022-07-26 10:14] LABS: Basophils Absolute Auto 0.1 K/mm3 (0.0-0.1); Basophils Percent Auto 0.7 % (0.2-1.2); Eosinophils Absolute Auto 0.2 K/mm3 (0-0.3); Eosinophils Percent Auto 2.5 % (0-4.4); Hematocrit 32.1 % (37.0-47.0); Hemoglobin 9.9 g/dL (12.0-15.0); Immature Granulocyte Absolute 0.03 K/mm3 (0.00-0.031); Immature Granulocyte Percent A 0.4 % (0-0.5); Lymphocytes Absolute Auto 1.59 K/mm3 (0.9-3.2); Lymphocytes Percent Auto 21.9 % (18.3-44.2); Mean Corpuscular HGB Conc 30.8 g/dl (32-36); Mean Corpuscular Hemoglobin 28.4 pg (26-34); Mean Corpuscular Volume 92.2 fl (80-100); Mean Platelet Volume 9.7 fl (7.4-10.4); Monocytes Absolute Auto 0.4 K/mm3 (0.1-0.6); Monocytes Percent Auto 5.4 % (2.6-8.5); Neutrophils Percent Auto 69.1 % (45.5-73.1); Platelet Count Result 275 k/mm3 (150-375); Red Blood Count 3.48 M/mm3 (4.2-5.4); Red Cell Distribution Width 15.4 % (11.5-14.5); White Blood Count 7.3 K/mm3 (4.5-10.0)
[2022-07-26 10:26] LABS: Anion Gap 7 mmol/L (8-16); Blood Urea Nitrogen 32 mg/dL (7-17); Calcium 9.4 mg/dL (8.4-10.2); Carbon Dioxide 30 mmol/L (22-30); Chloride 99 mmol/L (98-107); Estimated CRCL calculation 38 ml/min; Estimated Glomerular Filt Rate 34; Glucose 276 mg/dL (65-110); Magnesium 1.9 mg/dL (1.6-2.3); Potassium 4.9 mmol/L (3.4-5.0); Sodium 136 mmol/L (137-145)
--- NOTE | 2022-07-26 11:06 | PM.DS ---
DS: Admitting Diagnosis Discharge Date 07/26/2022 1106 Admitting Diagnosis CHF (congestive heart failure): ?Qualifiers: ?Heart failure type:?diastolic??Heart failure chronicity:?chronic? Qualified Code(s):?I50.32 - Chronic diastolic (congestive) heart failure ?Code(s): I50.9 - Heart failure, unspecified ?Status:?Acute ?Assessment and Plan: (2) Pneumonia: ?Qualifiers: ?Laterality:?bilateral??Lung location:?unspecified part of lung??Pneumonia type:?due to unspecified organism? Qualified Code(s):?J18.9 - Pneumonia, unspecified organism ?Code(s): J18.9 - Pneumonia, unspecified organism ?Status:?Acute ?Assessment and Plan: (3) Altered mental status: ?Qualifiers: ?Altered mental status type:?delirium? Qualified Code(s):?R41.0 - Disorientation, unspecified ?Code(s): R41.82 - Altered mental status, unspecified ?Status:?Acute ?Assessment and Plan: (4) Nausea & vomiting: ?Qualifiers: ?Vomiting type:?bilious vomiting? Qualified Code(s):?R11.14 - Bilious vomiting ?Code(s): R11.2 - Nausea with vomiting, unspecified ?Status:?Acute ?Assessment and Plan: (5) Type 2 diabetes mellitus with hyperglycemia, with long-term current use of insulin: ?Code(s): E11.65 - Type 2 diabetes mellitus with hyperglycemia; Z79.4 - senior living (current) use of insulin ?Status:?Acute ?Assessment and Plan: (6) Obstructive sleep apnea on CPAP: ?Code(s): G47.33 - Obstructive sleep apnea (adult) (pediatric); Z99.89 - Dependence on other enabling machines and devices ?Status:?Acute ?Assessment and Plan: (7) Memory loss: ?Code(s): R41.3 - Other amnesia ?Status:?Acute ?Assessment and Plan: (8) Frequent loose stools: ?Qualifiers: ?Diarrhea type:?unspecified type? Qualified Code(s):?R19.7 - Diarrhea, unspecified ?Code(s): R19.7 - Diarrhea, unspecified ?Status:?Acute ?Assessment and Plan: DS: Discharge Diagnosis Discharge Diagnosis (1) CHF (congestive heart failure): Qualifiers: Heart failure chronicity: acute on chronic Heart failure type: diastolic Qualified Code(s): I50.33 - Acute on chronic diastolic (congestive) heart failure Code(s): I50.9 - Heart failure, unspecified Status: Acute (2) Pneumonia: Qualifiers: Laterality: bilateral Lung location: unspecified part of lung Pneumonia type: due to unspecified organism Qualified Code(s): J18.9 - Pneumonia, unspecified organism Code(s): J18.9 - Pneumonia, unspecified organism Status: Acute (3) Acute metabolic encephalopathy: Code(s): G93.41 - Metabolic encephalopathy Status: Acute (4) Type 2 diabetes mellitus with hyperglycemia, with long-term current use of insulin: Code(s): E11.65 - Type 2 diabetes mellitus with hyperglycemia; 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.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 of insulin Status: Acute (5) Obstructive sleep apnea on CPAP: Code(s): G47.33 - Obstructive sleep apnea (adult) (pediatric); Z99.89 - Dependence on other enabling machines and devices Status: Chronic (6) Memory loss: Code(s): R41.3 - Other amnesia Status: Acute (7) Frequent loose stools: Qualifiers: Diarrhea type: unspecified type Qualified Code(s): R19.7 - Diarrhea, unspecified Code(s): R19.7 - Diarrhea, unspecified Status: Chronic (8) Dysphagia: Qualifiers: Dysphagia type: esophageal phase Qualified Code(s): R13.19 - Other dysphagia Code(s): R13.10 - Dysphagia, unspecified Status: Acute DS: Summary Hospital Course Reason for hospitalization: confusion, high blood sugar Hospital Course: Aleksandra Berman is a 76-year-old female with insulin-dependent diabetes mellitus, grade 2 diastolic heart failure, moderate pulmonary hypertension, urge incontinence, COPD and chronic kidney disease who presented to the ER
[2022-07-26 12:58] LABS: Glucose Point of Care 271 mg/dl (65-105)
[2022-07-26] MEDS: INSULIN ASPART (*BKC) 100 UNITS/ML SUB-Q (13:04)
[2022-07-26 14:00] VITALS: BP 152/65; PULSE 73; RESP 18; TEMP 36.4; O2SAT 100
[2022-07-26 17:49] LABS: Glucose Point of Care 133 mg/dl (65-105)
== END 2022-07-26 18:34 | disposition home health service (06) | DRG 637 ==
LOC: ANHED 18:44 → ANH3MED 23:46
PROVIDERS: Emergency Medicine; Nurse Practitioner; Admitting Provider Internal Medicine; Emergency Provider Nurse Practitioner Family; PCP Family Medicine; Visit Provider Nurse Practitioner Family
DX: E11.65 Type 2 diabetes mellitus with hyperglycemia (principal); G93.41 Metabolic encephalopathy; J18.9 Pneumonia, unspecified organism; I50.33 Acute on chronic diastolic (congestive) heart failure; I13.0 Hypertensive heart and chronic kidney disease with heart failure and stage 1 through stage 4 chronic kidney disease, or unspecified chronic kidney disease; J44.0 Chronic obstructive pulmonary disease with (acute) lower respiratory infection; G47.33 Obstructive sleep apnea (adult) (pediatric); R11.14 Bilious vomiting; K58.0 Irritable bowel syndrome with diarrhea; R41.3 Other amnesia; I27.20 Pulmonary hypertension, unspecified; N39.41 Urge incontinence; E11.22 Type 2 diabetes mellitus with diabetic chronic kidney disease; N18.32 Chronic kidney disease, stage 3b; E11.42 Type 2 diabetes mellitus with diabetic polyneuropathy; E78.2 Mixed hyperlipidemia; R13.10 Dysphagia, unspecified; Z20.822 Contact with and (suspected) exposure to COVID-19; Z79.4 Long term (current) use of insulin; Z98.42 Cataract extraction status, left eye; Z98.41 Cataract extraction status, right eye; Z96.1 Presence of intraocular lens; Z96.642 Presence of left artificial hip joint
CPT/HCPCS: 36415; 36600; 70450; 71046; 71260; 74177; 80048; 80053; 81001; 82010; 82607; 82746; 82805; 82948; 83735; 83880; 84100; 84443; 85025; 85027; 87040; 87086; 87088; 87636; 92610; 93005; 96361; 96365; 96367; 96372; 96375; 97161; 97166; 97530; 97535; 99285; A9270; C9113; G0378; J0456; J0696; J1650; J1815; J7030; J7040; Q9967

== ENCOUNTER 2022-08-04 00:18 | Day surgery (SDC) | payer MEDICARE, SELFPAY ==
[2022-07-17 13:15] VITALS: BMI 41.3
--- NOTE | 2022-08-02 11:30 | WPDANESEPPF ---
Anes - Initial Pre Proc Eval Procedure: Operation Date: 08/04/22 09:30 Proposed Procedures p Esophagogastroduodenoscopy EGD - Otoniel Grossman MD Date/Time: 08/02/22 11:30 Surgeon: Otoniel Grossman MD Pre Op Diagnosis: dysphagia Patient Data Age: 76 Gender: F Height: 1.65 m Weight: 112.8 kg Allergies Allergy/AdvReac Type Severity Reaction Status Date / Time [id number] Reductase Allergy Intermediate Other Verified 08/04/22 08:09 Inhibitor pseudoephedrine Allergy Unknown Other Verified 08/04/22 08:09 NSAIDS (Non-Steroidal AdvReac Intermediate Other Verified 08/04/22 08:09 Anti-Inflamma acetaminophen AdvReac Mild Itching Verified 08/04/22 08:09 [From Panlor (hydrocodone-acetamin)] exenatide [From Bydureon] AdvReac Mild Diarrhea Verified 08/04/22 08:09 hydrocodone AdvReac Mild Itching Verified 08/04/22 08:09 [From Panlor (hydrocodone-acetamin)] prochlorperazine AdvReac Mild Itching Verified 08/04/22 08:09 [From Compazine] rice AdvReac Mild Heartburn Verified 08/04/22 08:09 atenolol Allergy Severe Other Uncoded 08/04/22 08:09 oxycodone AdvReac Mild Itching Uncoded 08/04/22 08:09 Home Medications Medication Instructions Recorded Confirmed Type allopurinol 100 mg tablet 100 mg PO DAILY 06/14/21 08/04/22 History (Zyloprim) bumetanide 2 mg tablet 2 mg PO BID 06/14/21 08/04/22 History carvedilol 25 mg tablet (Coreg) 25 mg PO BID 06/14/21 08/04/22 History pramipexole 0.25 mg tablet 0.5 mg PO BID 06/14/21 08/04/22 History (Mirapex) divalproex 500 mg tablet,delayed 500 mg PO HS 03/06/22 08/04/22 History release (Depakote) insulin lispro 100 unit/mL 20 unit subcut TIDWM 07/10/22 08/04/22 History subcutaneous pen (Humalog KwikPen (U-100) Insulin) cholestyramine (with sugar) 4 gram 4 g PO Q2D 07/17/22 08/04/22 History powder for susp in a packet (Questran) desvenlafaxine succinate 50 mg 50 mg PO DAILY 07/22/22 08/04/22 History tablet,extended release 24 hr (Pristiq) gabapentin 100 mg capsule 100 mg PO TID 07/22/22 08/04/22 History (Neurontin) losartan 25 mg tablet (Cozaar) 25 mg PO DAILY 07/22/22 08/04/22 History venlafaxine 150 mg 150 mg PO DAILY 07/22/22 08/04/22 History capsule,extended release 24 hr (Effexor XR) albuterol sulfate 90 mcg/actuation 1 inh inhalation Q4H PRN shortness 07/26/22 08/04/22 Rx aerosol inhaler (ProAir HFA) of breath or wheezing #6.7 grams amoxicillin 500 mg capsule 1,000 mg PO Q8HR #7 caps 07/26/22 08/04/22 Rx insulin degludec 200 unit/mL (3 40 unit (0.2 mL) subcut HS #9 mL 07/26/22 08/04/22 Rx mL) subcutaneous pen (Tresiba FlexTouch U-200 insulin) nortriptyline 25 mg capsule 25 mg PO HS #30 caps 07/26/22 08/04/22 Rx omeprazole 20 mg capsule,delayed 20 mg PO DAILY #30 caps 07/26/22 08/04/22 Rx release trospium 20 mg tablet 20 mg PO HS #30 tabs 07/26/22 08/04/22 Rx Patient hx anesthesia problems: none Family hx anesthesia problems: none Results Review: All pre-operative results and documents have been reviewed as part of the pre-operative evaluation. FOR[facility]LY [facility] Past Medical History Medical History (Updated 07/30/22 @ 13:53 by Denise Tipton, CATHY) Anemia Anxiety BMI 40.0-44.9, adult Breast cancer CHF (congestive heart failure) Echocardiogram 05/2022: Normal left ventricular systolic function EF 65-70%, mildly increased left ventricular wall thickness, diastolic dysfunction grade 2, moderately elevated E/E 20, increased global longitudinal strain and-18%, mild mitral valve regurgitation, mild tricuspid regurgitation, moderate pulmonary hypertension with RVSP of [address] 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
[2022-08-04 08:03] VITALS: BP 128/83; PULSE 92; RESP 18; TEMP 36.3; O2SAT 99; BMI 42.8
[2022-08-04 08:25] LABS: Glucose Point of Care 259 mg/dl (65-105)
[2022-08-04] MEDS: LACTATED RINGERS 1,000 ML 150 ML IV CONT (08:25)
--- NOTE | 2022-08-04 08:50 | PM.HPGS ---
History of Present Illness History of Present Illness Consent: Risks, benefits, and alternatives have been discussed and questions answered. Patient agrees to proceed with procedure. Chief complaint: dysphagia Narrative: Aleksandra Berman is a 76 year old female with dysphagia to solids and liquids, also sensation of dry mouth. Had EGD but years ago. On omeprazole. Review of Systems Constitutional: Constitutional: Denies headache(s) and Denies weakness Eyes: Eyes: Denies blurry vision ENT: Reports Normal hearing present, Denies headache(s) and Denies neck pain Cardiovascular: Cardiovascular: Denies chest pain and Denies dyspnea Respiratory: Respiratory: Denies dyspnea Gastrointestinal: Gastrointestinal: Reports no additional gastrointestinal complaints Genitourinary: Genitourinary: Denies dysuria Musculoskeletal: Musculoskeletal: Denies neck pain Integumentary/Breasts: Skin/Breast: Denies dry skin Neurologic: Reports Normal hearing present, Denies headache(s) and Denies weakness Psychiatric: Psychiatric: Denies anxiety Endocrine: Endocrine: Denies change in body appearance Hematologic/Lymphatic: Hematologic/Lymphatic: Denies easy bleeding Allergic/Immunologic: Allergic/Immunologic: Denies urticaria PMFSH Past Medical History Medical History (Updated 07/30/22 @ 13:53 by Denise Tipton APRN) Anemia Anxiety BMI 40.0-44.9, adult Breast cancer CHF (congestive heart failure) Echocardiogram 05/2022: Normal left ventricular systolic function EF 65-70%, mildly increased left ventricular wall thickness, diastolic dysfunction grade 2, moderately elevated E/E 20, increased global longitudinal strain and-18%, mild mitral valve regurgitation, mild tricuspid regurgitation, moderate pulmonary hypertension with RVSP of [address] 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 Eduardo Venous stasis dermatitis Surgical History Surgical History (Updated 07/22/22 @ 06:08 by Kalee Mccoy DO) History of cholecystectomy History of reconstruction of right breast History of right hip replacement (~2017) History of right mastectomy Status post cataract extraction of both eyes with insertion of intraocular lens Family History Family History (Updated 07/22/22 @ 03:08 by Kalee Mccoy DO) Father Hypertension COPD (chronic obstructive pulmonary disease) Heart disease Diabetes mellitus Mother Lung cancer Depression Sibling Acute basophilic leukemia Sepsis Diabetes mellitus Daughter Depression Drug overdose Social History Social History (Updated 07/22/22 @ 03:10 by Kalee Mccoy DO) Social History: The patient is and lives home alone. She ambulates with a walker. she Had 2 children but her daughter . She is retired. She has never smoked. She does not use any alcohol marijuana or illicit drugs. Code status: The patient states that she does not want her heart restarted if it were to stop. She would be okay with ventilator support if she found inter pre rest situation. Although the patient seems reasonable and seems understand her decisions she is also quite confused as to orientation questions I do not feel safe changing her code status at this time without discussion with the family. If the patient's mentation were to clear we could readdress her code status at that time. For then term will continue patient is full code. POA: Son Smoking status: Never smoker Second hand tobacco smoke exposure: Yes Alcohol intake: never Substance use: never
[2022-08-04 09:03] VITALS: BP 123/77; PULSE 56; RESP 20; O2SAT 99
[2022-08-04 09:23] VITALS: BP 146/75; PULSE 88; RESP 21; O2SAT 99
[2022-08-04 09:33] VITALS: BP 140/75; PULSE 84; RESP 22; O2SAT 99
[2022-08-04 09:33] LABS: Glucose Point of Care 256 mg/dl (65-105)
== END 2022-08-04 09:46 | disposition home or self-care (01) ==
PROVIDERS: PCP Family Medicine; Visit Provider Internal Medicine Gastroenterology
PROC: 0DJ08ZZ Inspection of Upper Intestinal Tract, Via Natural or Artificial Opening Endoscopic (ICD-10-PCS; CPT 43235; principal; 2022-08-04 09:30)
DX: R13.10 Dysphagia, unspecified (principal); I13.0 Hypertensive heart and chronic kidney disease with heart failure and stage 1 through stage 4 chronic kidney disease, or unspecified chronic kidney disease; I50.9 Heart failure, unspecified; E11.42 Type 2 diabetes mellitus with diabetic polyneuropathy; N18.32 Chronic kidney disease, stage 3b; E11.22 Type 2 diabetes mellitus with diabetic chronic kidney disease; G47.33 Obstructive sleep apnea (adult) (pediatric); F32.A Depression, unspecified; F41.9 Anxiety disorder, unspecified; H35.30 Unspecified macular degeneration; I87.2 Venous insufficiency (chronic) (peripheral); Z79.4 Long term (current) use of insulin; Z79.51 Long term (current) use of inhaled steroids; Z85.3 Personal history of malignant neoplasm of breast; Z90.11 Acquired absence of right breast and nipple; E66.01 Morbid (severe) obesity due to excess calories; Z68.41 Body mass index [BMI] 40.0-44.9, adult
CPT/HCPCS: 43239; 82948; 88305; J2704; J7120

== ENCOUNTER → 2022-08-07 14:57 | Outpatient (CLI) | payer MEDICARE, SELFPAY ==
--- NOTE | ~2022-08-07 | US_ITS ---
US renal BI DATE: 08/07/2022 15:39 INDICATION: Chronic kidney disease TECHNIQUE: Real-time imaging of kidneys and urinary bladder COMPARISON: 07/22/2022 CT chest abdomen pelvis FINDINGS: Examination is limited due to morbid obesity. The right kidney measures approximately 10.8 cm length, the left kidney approximately 9.7 cm length. No renal mass lesion or hydronephrosis is noted. The bladder is relatively evacuated and not optimally evaluated. IMPRESSION: No suspicious renal mass lesion or hydronephrosis Reviewed, dictated and finalized at Location A. Reviewed, dictated and finalized at location B. 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
== END ==
PROVIDERS: PCP Internal Medicine Nephrology; Visit Provider Internal Medicine Nephrology
DX: N18.32 Chronic kidney disease, stage 3b (principal)
CPT/HCPCS: 76775

== ENCOUNTER 2022-08-22 12:30 | Outpatient (CLI) | payer MEDICARE, SELFPAY ==
--- NOTE | ~2022-08-22 | XR_ITS ---
Clinical Indication: Cough PA and lateral views of the chest: Comparison: 07/24/2022 Findings: The lungs are clear, without evidence of focal consolidation or pleural effusion. Cardiome diastinal silhouette is within normal limits. Bones and soft tissues are unremarkable. Impression: Normal chest. Reviewed, dictated and finalized at location [] ER MACHINIST Impression: Normal chest.
[2022-08-22 13:48] LABS: Hematocrit 33.6 % (37.0-47.0); Hemoglobin 10.6 g/dL (12.0-15.0); Mean Corpuscular HGB Conc 31.5 g/dl (32-36); Mean Corpuscular Hemoglobin 28.6 pg (26-34); Mean Corpuscular Volume 90.6 fl (80-100); Platelet Count Result 248 k/mm3 (150-375); Red Blood Count 3.71 M/mm3 (4.2-5.4); Red Cell Distribution Width 16.3 % (11.5-14.5); White Blood Count 7.9 K/mm3 (4.5-10.0)
[2022-08-22 14:01] LABS: Alanine Aminotransferase 19 U/L (6-35); Albumin Level 3.9 g/dL (3.5-5.1); Alkaline Phosphatase 124 U/L (38-126); Anion Gap 5 mmol/L (8-16); Aspartate Amino Transferase 21 U/L (14-36); Bilirubin,Total 0.3 mg/dL (0.2-1.3); Blood Urea Nitrogen 30 mg/dL (7-17); Calcium 8.9 mg/dL (8.4-10.2); Carbon Dioxide 30 mmol/L (22-30); Chloride 101 mmol/L (98-107); Estimated Glomerular Filt Rate 40; Glucose 228 mg/dL (65-110); Potassium 4.4 mmol/L (3.4-5.0); Sodium 136 mmol/L (137-145)
[2022-08-22 14:11] LABS: Add Urine Microscopic? YES; Appearance Urine Clear (Clear); Bilirubin Urine Negative (Negative); Blood Urine Negative (Negative); Color Urine Light Yellow (Yellow); Glucose Urine UA 1+ mg/dL (Negative); Ketones Urine Negative (Negative); Leukocyte Esterase Ur Trace LEU/UL (Negative); Nitrate Urine Negative (Negative); Protein Urine Negative (Negative); Urobilinogen Urine 0.2 mg/dL (<2.0)
[2022-08-22 14:22] LABS: Mucus Urine Rare /lpf; RBC Urine 0-2 /hpf (0-2); Squamous Epithelial Cell Urine Few /hpf (Few); WBC Urine 0-3 /hpf
== END 2022-08-22 12:31 | disposition home or self-care (01) ==
PROVIDERS: PCP Family Medicine; Visit Provider Nurse Practitioner Family
DX: R05.9 Cough, unspecified (principal); R60.0 Localized edema; I10 Essential (primary) hypertension; E78.5 Hyperlipidemia, unspecified; R30.0 Dysuria
CPT/HCPCS: 36415; 71046; 80053; 81001; 85027

== ENCOUNTER 2023-02-16 07:51 | Outpatient (CLI) | payer MEDICARE, SELFPAY ==
--- NOTE | 2023-02-16 13:26 | WPDPFTINT ---
PFT Procedure Performed PFT Procedure Performed Plethysmography (Lung Vol) Diffusing Cap (DLCO) Flow Vol Loop Spirometry w/o Bronchodil PFT Interpretation Lung volumes were measured with the body plethysmography method. The diminished expiratory reserve volume is related to obesity. The remaining lung volumes are unremarkable. Spirometry showed diminished expiratory flow rates and a normal FEV1 to FVC ratio 74%. No post bronchodilator study was carried out. The restrictive pattern on spirometry in the face of a normal total lung capacity is indicative of a non specific pattern. Lung diffusion capacity is borderline normal at 70% predicted. The flow-volume loop is unremarkable. Overall, the pulmonary function testing is compatible with morbid obesity. Clinical correlation advised. Impression: Nonspecific pattern. Borderline normal lung diffusion capacity.
== END 2023-02-16 07:52 | disposition home or self-care (01) ==
LOC: ANHPFT 07:53
PROVIDERS: PCP Family Medicine; Visit Provider Internal Medicine Cardiovascular Disease
DX: R06.02 Shortness of breath (principal)
CPT/HCPCS: 94375; 94726; 94729

== ENCOUNTER 2023-02-24 11:45 | Outpatient (CLI) | payer MEDICARE, SELFPAY ==
--- NOTE | ~2023-02-24 | US_ITS ---
Duplex Sonography of the bilateral lower extremities: Indication: Swelling Sagittal and transverse B-mode images as well as color-flow imaging were performed on the right and l eft femoral and popliteal veins. B-mode examination was done without and with compression in the tra nsverse plane. There is good visualization of the bilateral common femoral, proximal profunda femora l, superficial femoral, greater saphenous, and popliteal veins. Normal flow was seen on color-flow im aging. Normal compressibility was demonstrated. Bilateral posterior tibial veins are also patent. Pe roneal veins could not be visualized. Impression: No evidence of deep vein thrombosis involving the visualized bilateral lower extremity ve nous structures. Reviewed, dictated and finalized at location M. Impression: No evidence of deep vein thrombosis involving the visualized bilate ral lower extremity venous structures.
--- NOTE | ~2023-02-24 | XR_ITS ---
Clinical Indication: Shortness of breath PA and lateral views of the chest: Comparison: 08/22/2022 Findings: The lungs are clear, without evidence of focal consolidation or pleural effusion. Cardiome diastinal silhouette is within normal limits. Bones and soft tissues are unremarkable. Impression: Normal chest. Reviewed, dictated and finalized at location . Impression: Normal chest.
[2023-02-24 13:20] LABS: Basophils Absolute Auto 0.1 K/mm3 (0.0-0.1); Basophils Percent Auto 0.6 % (0.2-1.2); Eosinophils Absolute Auto 0.2 K/mm3 (0-0.3); Eosinophils Percent Auto 2.5 % (0-4.4); Hematocrit 34.4 % (37.0-47.0); Hemoglobin 10.6 g/dL (12.0-15.0); Immature Granulocyte Absolute 0.04 K/mm3 (0.00-0.031); Immature Granulocyte Percent A 0.5 % (0-0.5); Lymphocytes Absolute Auto 1.25 K/mm3 (0.9-3.2); Lymphocytes Percent Auto 15.2 % (18.3-44.2); Mean Corpuscular HGB Conc 30.8 g/dl (32-36); Mean Corpuscular Hemoglobin 28.9 pg (26-34); Mean Corpuscular Volume 93.7 fl (80-100); Mean Platelet Volume 9.9 fl (7.4-10.4); Monocytes Absolute Auto 0.6 K/mm3 (0.1-0.6); Monocytes Percent Auto 6.7 % (2.6-8.5); Neutrophils Absolute Auto 6.1 K/mm3 (1.3-6.7); Neutrophils Percent Auto 74.5 % (45.5-73.1); Platelet Count Result 248 k/mm3 (150-375); Red Blood Count 3.67 M/mm3 (4.2-5.4); Red Cell Distribution Width 14.9 % (11.5-14.5); White Blood Count 8.2 K/mm3 (4.5-10.0)
[2023-02-24 13:38] LABS: NT Pro B Type Natriuretic Pept 1280 pg/mL (19.9-100)
== END 2023-02-24 11:46 | disposition home or self-care (01) ==
PROVIDERS: PCP Family Medicine; Visit Provider Nurse Practitioner Family
DX: M79.662 Pain in left lower leg (principal); R06.02 Shortness of breath; L53.9 Erythematous condition, unspecified; R06.01 Orthopnea; R60.0 Localized edema
CPT/HCPCS: 36415; 71046; 83880; 85025; 93970

== ENCOUNTER 2023-03-30 01:38 | Day surgery (SDC) | payer MEDICARE, SELFPAY ==
[2023-03-27 15:57] VITALS: BMI 41.0
[2023-03-30] VITALS (18 sets, daily range): BP systolic 116–156; BP diastolic 55–115; PULSE 68–101; RESP 10–24; TEMP 36.6; O2SAT 92–100; BMI 41.6
[2023-03-30 07:46] LABS: Basophils Percent Auto 0.5 % (0.2-1.2); Eosinophils Absolute Auto 0.4 K/mm3 (0-0.3); Eosinophils Percent Auto 5.4 % (0-4.4); Hematocrit 35.5 % (37.0-47.0); Hemoglobin 11.1 g/dL (12.0-15.0); Immature Granulocyte Absolute 0.02 K/mm3 (0.00-0.031); Immature Granulocyte Percent A 0.3 % (0-0.5); Lymphocytes Absolute Auto 1.91 K/mm3 (0.9-3.2); Lymphocytes Percent Auto 24.7 % (18.3-44.2); Mean Corpuscular HGB Conc 31.3 g/dl (32-36); Mean Corpuscular Hemoglobin 28.8 pg (26-34); Mean Platelet Volume 9.8 fl (7.4-10.4); Monocytes Absolute Auto 0.6 K/mm3 (0.1-0.6); Monocytes Percent Auto 7.5 % (2.6-8.5); Neutrophils Absolute Auto 4.8 K/mm3 (1.3-6.7); Neutrophils Percent Auto 61.6 % (45.5-73.1); Platelet Count Result 228 k/mm3 (150-375); Red Blood Count 3.86 M/mm3 (4.2-5.4); Red Cell Distribution Width 15.1 % (11.5-14.5); White Blood Count 7.7 K/mm3 (4.5-10.0)
[2023-03-30 07:58] LABS: Anion Gap 6 mmol/L (8-16); Blood Urea Nitrogen 31 mg/dL (7-17); Calcium 9.3 mg/dL (8.4-10.2); Carbon Dioxide 31 mmol/L (22-30); Chloride 101 mmol/L (98-107); Estimated CRCL calculation 39 ml/min; Estimated Glomerular Filt Rate 37; Glucose 195 mg/dL (65-110); Potassium 4.2 mmol/L (3.4-5.0); Sodium 138 mmol/L (137-145)
--- NOTE | 2023-03-30 08:38 | WPDHPUPDATE1 ---
History and Physical Update Update Date/Time: 03/30/23 08:38 History and Physical has been reviewed, including an updated exam of the patient. There are NO changes in the patient's condition. Risks, benefits, and alternatives have been discussed and questions answered. Patient agrees to proceed with procedure.
--- NOTE | 2023-03-30 08:39 | WPDMODSED ---
Moderate Sedation Note-Pt Data Patient Data Diagnosis: Abnormal stress test, exertional dyspnea Present Complaint: none history and physical update: Brief HPI: Patient is a 77-year-old female history of diastolic dysfunction, hypertension, shortness of breath, ANDREA on CPAP, type 2 diabetes mellitus, CKD stage 3 with complaints of progressive exertional dyspnea who underwent noninvasive ischemic evaluation which revealed medium size area of [id number] mid to apical anterior and mid anterolateral and apical lateral ischemia without infarction EF 72%. Patient subsequently referred for left heart catheterization for delineation of her coronary anatomy. Impression: Abnormal stress test [place] ANDREA on CPAP hypertension CKD stage 3 type 2 diabetes mellitus plan of care: Left heart catheterization for delineation of coronary anatomy. Further recommendation to follow. Procedure to be performed/Plan: left heart catheterization with selective left and right coronary angiography with left ventriculography and hemodynamics and possible percutaneous intervention and stent implantation Allergies Allergy/AdvReac Type Severity Reaction Status Date / Time [id number] Reductase Allergy Intermediate Other Verified 03/30/23 08:00 Inhibitor pseudoephedrine Allergy Unknown Hives Verified 03/30/23 08:00 NSAIDS (Non-Steroidal AdvReac Intermediate Other Verified 03/30/23 08:00 Anti-Inflamma acetaminophen AdvReac Mild Itching Verified 03/30/23 08:00 [From Panlor (hydrocodone-acetamin)] exenatide [From Bydureon] AdvReac Mild Diarrhea Verified 03/30/23 08:00 hydrocodone AdvReac Mild Itching Verified 03/30/23 08:00 [From Panlor (hydrocodone-acetamin)] prochlorperazine AdvReac Mild Itching Verified 03/30/23 08:00 [From Compazine] rice AdvReac Mild Heartburn Verified 03/30/23 08:00 atenolol Allergy Severe Other Uncoded 03/30/23 08:00 oxycodone AdvReac Mild Itching Uncoded 03/30/23 08:00 Home Medications Medication Instructions Recorded Confirmed Type allopurinol 100 mg tablet 100 mg PO DAILY 06/14/21 03/27/23 History (Zyloprim) bumetanide 2 mg tablet 3 mg PO BID 06/14/21 03/27/23 History carvedilol 25 mg tablet (Coreg) 25 mg PO BID 06/14/21 03/27/23 History pramipexole 0.25 mg tablet 0.5 mg PO BID 06/14/21 03/27/23 History (Mirapex) divalproex 500 mg tablet,delayed 500 mg PO HS 03/06/22 03/27/23 History release (Depakote) cholestyramine (with sugar) 4 gram 4 g PO Q2D PRN Diarrhea 07/17/22 03/27/23 History powder for susp in a packet (Questran) desvenlafaxine succinate 50 mg 50 mg PO DAILY 07/22/22 03/27/23 History tablet,extended release 24 hr (Pristiq) gabapentin 100 mg capsule 100 mg PO TID 07/22/22 03/27/23 History (Neurontin) losartan 25 mg tablet (Cozaar) 25 mg PO DAILY 07/22/22 03/27/23 History venlafaxine 150 mg 150 mg PO DAILY 07/22/22 03/27/23 History capsule,extended release 24 hr (Effexor XR) albuterol sulfate 90 mcg/actuation 1 inh inhalation Q4H PRN shortness 07/26/22 03/27/23 Rx aerosol inhaler (ProAir HFA) of breath or wheezing #6.7 grams omeprazole 20 mg capsule,delayed 20 mg PO DAILY #30 caps 07/26/22 03/27/23 Rx release trospium 20 mg tablet 20 mg PO HS #30 tabs 07/26/22 03/27/23 Rx glucagon 3 mg/actuation nasal 3 mg intranasal ONCE PRN 08/05/22 03/27/23 Rx spray (Baqsimi) hypoglycemia #1 ea nystatin 100,000 unit/gram topical 1 applic topical BID #30 grams 03/17/23 03/27/23 Rx ointment buspirone 15 mg tablet 15 mg PO DAILY 03/27/23 03/27/23 History insulin degludec 200 unit/mL (3 40 unit subcut DAILY 03/27/23 03/27/23 History mL) subcutaneous pen (Tresiba FlexTouch U-200 insulin) insulin lispro 100 unit/mL 12 unit subcut TID 03/27/23 03/30/23 History subcutaneous pen (Humalog KwikPen (U-100) Insulin) vit C 250 mg-E 90 mg-zinc 40 2 tablet PO DAILY 03/27/23 03/27/23 History mg-copper 1 [id number] chew
--- NOTE | 2023-03-30 08:42 | WPDCARDPROC ---
Cardiac Cath Procedure Note Date of procedure:: 03/30/23 Performing physician:: Gibson Memberno MD Indication:: Abnormal stress test, exertional dyspnea Brief clinical history:: patient is a very pleasant 77-year-old female with a history of type 2 diabetes mellitus, hypertension, diastolic dysfunction, RUSH, ANDREA on CPAP, CKD stage 3, hypertension referred for left heart catheterization for delineation of her coronary anatomy due to abnormal stress test suggestive of mid and apical anterior and anterolateral and apical lateral ischemia. Procedure Procedure performed:: Left heart catheterization with left ventriculography and hemodynamics and possible percutaneous intervention and stent implantation Sedation/Medication given:: MODERATE SEDATION/ANESTHESIA ADMINISTRATION: Patient reports no prior problems with sedation/anesthesia. Please see pre-sedation noted for physical examination documentation. Sedation start time was 0858 and end time was 0939 for a total intra-service/procedure face-face time of 41 minutes. A total of 1 mg intravenous Versed and a total of 50 mcg intravenous Fentanyl was administered for moderate sedation. Moderate sedation was administered by qualified/certified observer Heather Worrell RN under my supervision with intra-procedure [id number] observation and management throughout the entirety of the procedure. There were no other issues or complications and patient tolerated the procedure well. See post-anesthesia documentation. Access site:: Right femoral artery Estimated blood loss:: 10 cc Procedure note:: PROCEDURES PERFORMED: 1. Left heart catheterization 2. Selective left and right coronary angiography 3. Left ventriculography and hemodynamics 4. Moderate/conscious sedation administration CATHETERS UTILIZED: Left coronary system- 5 [place]er JL4 catheter Right coronary system- 5 [place] JR4 catheter Left ventriculography and hemodynamics- 5 [place]er angled pigtail catheter PROCEDURE IN DETAIL: After verbal and written informed consent was obtained the patient, risks, benefits, and alternatives explained in detail the patient agreed to proceed with the plan of care as outlined above. The patient was subsequently brought to the cardiac catheterization lab, placed on the cardiac catheterization table, and prepped and draped in the usual sterile fashion. Utilizing approximately 20cc of 1% subcutaneous Lidocaine, the right groin was then locally anesthetized. Utilizing the modified Seldinger technique, a 5 [place]er arterial vascular access sheath was inserted in the right common femoral artery easily and without complications. Through this access, coronary angiography was subsequently obtained in multiple standard re-projections. Following this, a 5 [place]er angled pigtail catheter was advanced retrograde across aortic valve into the cavity of the left ventricle. Left ventriculography was performed and pullback across aortic valve was subsequently recorded. The vascular access sheath and angiographic catheters were flushed before and after catheter exchanges. At the conclusion of the diagnostic portion of the procedure, all angiographic guidewires and catheters were removed and the 5 [place]er arterial vascular access sheath was then pulled and satisfactory hemostasis was achieved using manual compression. There no complications noted at the conclusion of the diagnostic portion of the study. Findings:: CORONARY ANGIOGRAPHY: The LEFT MAIN arose from the left coronary cusp and was without angiographically significant disease. The left main then bifurcated into the left anterior descending artery and circumflex coronary artery. LEFT ANTERIOR DESCENDING ARTERY: Moderate caliber vessel heavily calcified distal portion of the proximal segment with diffuse 60-70% stenosis extending into the mid segment with diffuse disease throughout with a 70% stenosis after the bifurcation of moderate to large caliber bifurcat
[2023-03-30] MEDS: ACETAMINOPHEN 325 MG TABLET 650 MG PO (10:45)
[2023-03-30] MEDS: SODIUM CHLORIDE 0.9% IV 500 ML 150 ML IV CONT (10:46)
== END 2023-03-30 14:53 | disposition home or self-care (01) ==
PROVIDERS: PCP Family Medicine; Visit Provider Internal Medicine Cardiovascular Disease
PROC: 4A023N7 Measurement of Cardiac Sampling and Pressure, Left Heart, Percutaneous Approach (ICD-10-PCS; CPT 93452; principal; 2023-03-30 08:30)
DX: I25.10 Atherosclerotic heart disease of native coronary artery without angina pectoris (principal); R94.39 Abnormal result of other cardiovascular function study; R06.00 Dyspnea, unspecified; I13.0 Hypertensive heart and chronic kidney disease with heart failure and stage 1 through stage 4 chronic kidney disease, or unspecified chronic kidney disease; I50.9 Heart failure, unspecified; E11.22 Type 2 diabetes mellitus with diabetic chronic kidney disease; N18.32 Chronic kidney disease, stage 3b; E11.42 Type 2 diabetes mellitus with diabetic polyneuropathy; Z85.3 Personal history of malignant neoplasm of breast; Z85.828 Personal history of other malignant neoplasm of skin; G47.33 Obstructive sleep apnea (adult) (pediatric); Z79.51 Long term (current) use of inhaled steroids; D64.9 Anemia, unspecified; F41.9 Anxiety disorder, unspecified; F32.A Depression, unspecified; E78.2 Mixed hyperlipidemia; I87.2 Venous insufficiency (chronic) (peripheral); Z79.4 Long term (current) use of insulin; Z79.1 Long term (current) use of non-steroidal anti-inflammatories (NSAID); Z79.891 Long term (current) use of opiate analgesic
CPT/HCPCS: 36415; 80048; 85025; 93458; A9270; C1887; C1894; J1644; J2250; J3010; J7040

== ENCOUNTER 2023-05-23 20:58 | Emergency (ER) | payer MEDICARE, SELFPAY ==
[2023-05-23] VITALS (14 sets, daily range): BP systolic 104–157; BP diastolic 50–71; PULSE 72–103; RESP 12–28; TEMP 37; O2SAT 93–97
--- NOTE | ~2023-05-23 | XR_ITS ---
EXAMINATION: XR chest 1V portable DATE: 05/23/2023 21:38 INDICATION: Dyspnea TECHNIQUE: frontal view of the chest was obtained. COMPARISON: Chest radiograph dated 02/24/2023 FINDINGS: Pulmonary vascular congestion and interval increase in the interstitial pattern in both lungs with pe rihilar and lower lung predominance most likely related to mild pulmonary edema. No pleural effusion or pneumothorax. Heart size is normal. IMPRESSION: 1. Pulmonary vascular congestion and bilateral mild increased interstitial pattern most likely relate d to mild pulmonary edema. Reviewed, dictated and finalized at location A. IMPRESSION: 1. Pulmonary vascular congestion and bilateral mild increased interstitial claudine analy most likely related to mild pulmonary edema.
[2023-05-23 21:05] LABS: Glucose Point of Care 348 mg/dl (65-105)
--- NOTE | 2023-05-23 21:09 | ECG_ITS ---
Measurements Intervals [place] Rate: 103 P: 49 MN: 182 QRS: 47 QRSD: 81 T: 34 QT: 346 QTc: 453 Interpretive Statements SINUS TACHYCARDIA BASELINE ARTIFACT- I, II, AVR, AVF, V1 BORDERLINE ECG COMPARED TO ECG 07/21/2022 16:58:55 SINUS TACHYCARDIA NOW PRESENT Electronically Signed On 05-24-2023 7:46:54 CDT by Anupam Mcdowell D.O.
[2023-05-23] MEDS: NITROGLYCERIN SL 0.4 MG TABLET SUBLINGUAL (22:03)
[2023-05-23 22:11] LABS: Basophils Percent Auto 0.4 % (0.2-1.2); Eosinophils Absolute Auto 0.1 K/mm3 (0-0.3); Eosinophils Percent Auto 1.4 % (0-4.4); Hematocrit 31.3 % (37.0-47.0); Hemoglobin 9.9 g/dL (12.0-15.0); Immature Granulocyte Absolute 0.03 K/mm3 (0.00-0.031); Immature Granulocyte Percent A 0.3 % (0-0.5); Lymphocytes Absolute Auto 1.44 K/mm3 (0.9-3.2); Mean Corpuscular HGB Conc 31.6 g/dl (32-36); Mean Corpuscular Hemoglobin 29.1 pg (26-34); Mean Corpuscular Volume 92.1 fl (80-100); Mean Platelet Volume 9.8 fl (7.4-10.4); Monocytes Absolute Auto 0.6 K/mm3 (0.1-0.6); Monocytes Percent Auto 7.1 % (2.6-8.5); Neutrophils Absolute Auto 6.7 K/mm3 (1.3-6.7); Neutrophils Percent Auto 74.8 % (45.5-73.1); Platelet Count Result 215 k/mm3 (150-375); Red Cell Distribution Width 14.4 % (11.5-14.5)
--- NOTE | 2023-05-23 22:11 | PC.NURSE ---
This RN administered x2 nitro pills. Pt felt little to no relief w first pill. After second dose pt felt more relief with SOB. Pt refused third dose. notified.
[2023-05-23 22:21] LABS: Lactic Acid Reflex 1.5 mmol/L (0.7-2.0)
[2023-05-23 22:22] LABS: Alanine Aminotransferase 16 U/L (6-35); Albumin Level 3.8 g/dL (3.5-5.1); Alkaline Phosphatase 132 U/L (38-126); Anion Gap 7 mmol/L (8-16); Aspartate Amino Transferase 21 U/L (14-36); Bilirubin,Total 0.5 mg/dL (0.2-1.3); Blood Urea Nitrogen 29 mg/dL (7-17); Calcium 9.1 mg/dL (8.4-10.2); Carbon Dioxide 29 mmol/L (22-30); Chloride 99 mmol/L (98-107); Estimated CRCL calculation 38 ml/min; Estimated Glomerular Filt Rate 37; Glucose 330 mg/dL (65-110); Lipase 35 U/L (23-300); Magnesium 2.2 mg/dL (1.6-2.3); Potassium 3.4 mmol/L (3.4-5.0); Sodium 135 mmol/L (137-145)
[2023-05-23 22:22] LABS: Partial Thromboplastin Time 32.6 SECONDS (22.3-36.8)
[2023-05-23] MEDS: BUMETANIDE INJ 1 MG/4 ML VIAL IV PUSH (22:25)
[2023-05-23 22:32] LABS: NT Pro B Type Natriuretic Pept 4060 pg/mL (19.9-100); Troponin I 0.013 ng/mL (0.000-0.034)
[2023-05-23 22:55] LABS: Procalcitonin 0.2 ng/mL
--- NOTE | 2023-05-23 23:29 | ED.GENADULT ---
HPI - General Adult General Chief complaint: Shortness of Breath/Dyspnea Stated complaint: sob Time Seen by Provider: 05/23/23 21:01 History of Present Illness HPI narrative: Patient is a 77-year-old female who presents the emergency department with chief complaint of shortness of breath. Patient reports she has history of cardiac disease and is actually scheduled for cardiac bypass the first week of July at [facility]. Patient reports that she has been short of breath for some time and it is gotten worse over the last several days now she gets short of breath with basic ambulation patient states she is little bit of a fullness feeling in her chest but no true chest pain. Related Data Home Medications Medication Instructions Recorded Confirmed allopurinol 100 mg tablet 100 mg PO DAILY 06/14/21 05/05/23 (Zyloprim) carvedilol 25 mg tablet (Coreg) 25 mg PO BID 06/14/21 05/05/23 divalproex 500 mg tablet,delayed 500 mg PO HS 03/06/22 05/05/23 release (Depakote) cholestyramine (with sugar) 4 gram 4 g PO Q2D PRN Diarrhea 07/17/22 05/05/23 powder for susp in a packet (Questran) gabapentin 100 mg capsule 100 mg PO TID 07/22/22 05/05/23 (Neurontin) losartan 25 mg tablet (Cozaar) 25 mg PO DAILY 07/22/22 05/05/23 insulin lispro 100 unit/mL 12 unit subcut TID 03/27/23 05/05/23 subcutaneous pen (Humalog KwikPen (U-100) Insulin) vit C 250 mg-E 90 mg-zinc 40 2 tablet PO DAILY 03/27/23 05/05/23 mg-copper 1 ld-fhyfbj-tbzxaa chew tablet (PreserVision AREDS-2) insulin degludec 200 unit/mL (3 36 unit subcut DAILY 04/02/23 05/05/23 mL) subcutaneous pen (Tresiba FlexTouch U-200 insulin) buspirone 15 mg tablet 15 mg PO DAILY 05/08/23 05/05/23 evolocumab 140 mg/mL subcutaneous 140 mg subcut .every 2 weeks 05/08/23 05/08/23 syringe (Repatha Syringe) venlafaxine 150 mg 300 mg PO DAILY 05/08/23 05/08/23 capsule,extended release 24 hr (Effexor XR) Allergies Allergy/AdvReac Type Severity Reaction Status Date / Time [id number] Reductase Allergy Intermediate Other Verified 05/20/23 14:50 Inhibitor pseudoephedrine Allergy Unknown Hives Verified 05/20/23 14:50 NSAIDS (Non-Steroidal AdvReac Intermediate Other Verified 05/20/23 14:50 Anti-Inflamma oxycodone AdvReac Intermediate Itching Verified 05/20/23 14:50 atenolol AdvReac Mild Muscle Pain Verified 05/20/23 14:50 exenatide [From Bydureon] AdvReac Mild Diarrhea Verified 05/20/23 14:50 hydrocodone AdvReac Mild Itching Verified 05/20/23 14:50 [From Panlor (hydrocodone-acetamin)] prochlorperazine AdvReac Mild Itching Verified 05/20/23 14:50 [From Compazine] rice AdvReac Mild Heartburn Verified 05/20/23 14:50 Review of Systems Review of Systems: A 10 system review of systems was completed on the patient and is negative except for what is stated in the HPI. Nursing and ancillary documentation was reviewed. [facility] Past Medical History Medical History Anemia Anxiety Ataxia BMI 40.0-44.9, adult Breast cancer CHF (congestive heart failure) Echocardiogram 05/2022: Normal left ventricular systolic function EF 65-70%, mildly increased left ventricular wall thickness, diastolic dysfunction grade 2, moderately elevated E/E 20, increased global longitudinal strain and-18%, mild mitral valve regurgitation, mild tricuspid regurgitation, moderate pulmonary hypertension with RVSP of [address] Ann Chronic hip pain after total replacement of hip joint Degeneration of lumbar or lumbosacral intervertebral disc Depression Diabetes mellitus type 2 in obese (~1989) A1c 10 on July 21, 2022 Diabetic peripheral neuropathy History of stress test Hypertension Knee osteoarthritis Macular degeneration Mixed hyperlipidemia Normal esophagogastroduodenoscopy (EGD) Obstructive sleep apnea on CPAP Skin cancer Stage 3b chronic kidney disease (CKD) Dr. Worthy
[2023-05-23 23:31] LABS: Appearance Urine Clear (Clear); Bacteria Urine None Seen /hpf; Bilirubin Urine Negative (Negative); Blood Urine Trace (Negative); Color Urine Yellow (Yellow); Glucose Urine UA 2+ mg/dL (Negative); Ketones Urine Negative (Negative); Leukocyte Esterase Ur Trace LEU/UL (Negative); Nitrate Urine Negative (Negative); Non Pathogenic Casts 0-2; Protein Urine Negative (Negative); RBC Urine 0-2 /hpf (0-2); Specific Grav Ur 1.012 (1.001-1.035); Squamous Epithelial Cell Urine None seen /hpf (Few); Urobilinogen Urine 0.2 mg/dL (<2.0); WBC Urine 0-5 /hpf
[2023-05-23 23:49] LABS: Add Urine Microscopic? YES
[2023-05-24] VITALS (7 sets, daily range): BP systolic 127–159; BP diastolic 52–71; PULSE 75–86; RESP 15–27; O2SAT 94–100
--- NOTE | 2023-05-24 00:38 | PC.NURSE ---
Franchesca Leon from [facility] xfr center. Provided Carolyn granado pt latest VS and triage questions. Craolyn stated they are awaiting beds to open up. Will probably be tomorrow morning after discharges.
--- NOTE | 2023-05-24 02:23 | PC.NURSE ---
This RN called report to ELISEO Wahl on 9 tele at [facility] at this time. Pt is to be xfr by EMS after 0500 today. Will call Maryuri back when pt leaves ED.
--- NOTE | 2023-05-24 05:29 | PC.NURSE ---
Josue Szymanski called EMS transporting pt to [facility]. Approx time of arrival is 0700.
--- NOTE | 2023-05-24 07:05 | PC.NURSE ---
This RN called pt son per pt request to update him. This RN told son pt was still waiting to be xfr to [facility].
== END 2023-05-24 07:17 | disposition short-term general hospital (02) ==
LOC: ANHED 21:28
PROVIDERS: Emergency Provider Emergency Medicine; PCP Family Medicine
DX: I13.0 Hypertensive heart and chronic kidney disease with heart failure and stage 1 through stage 4 chronic kidney disease, or unspecified chronic kidney disease (principal); E11.22 Type 2 diabetes mellitus with diabetic chronic kidney disease; N18.32 Chronic kidney disease, stage 3b; I50.9 Heart failure, unspecified; E11.65 Type 2 diabetes mellitus with hyperglycemia; D64.9 Anemia, unspecified; F41.9 Anxiety disorder, unspecified; Z85.3 Personal history of malignant neoplasm of breast; F32.A Depression, unspecified
CPT/HCPCS: 36415; 71045; 80053; 81001; 82948; 83605; 83690; 83735; 83880; 84145; 84484; 85025; 85610; 85730; 93005; 96374; 99285; A9270

== ENCOUNTER 2023-07-29 13:14 | Outpatient (CLI) | payer MEDICARE, SELFPAY ==
--- NOTE | ~2023-07-29 | XR_ITS ---
EXAMINATION: XR chest 2V 07/29/2023 14:02 INDICATION: Cough. Shortness of breath. PROCEDURE: 2 view chest COMPARISON: Comparison to multiple prior studies sequentially, with oldest reviewed study dated 07/08. FINDINGS: The lungs are clear. The cardiomediastinal silhouette is within normal limits. There are no pleural effusions. There is no pneumothorax suspected. IMPRESSION: 1: NO ACUTE CARDIOPULMONARY DISEASE. Reviewed, dictated and finalized at location B. DING INSPECTOR
== END 2023-07-29 13:15 | disposition home or self-care (01) ==
PROVIDERS: PCP Family Medicine; Visit Provider Nurse Practitioner Family
DX: R05.9 Cough, unspecified (principal)
CPT/HCPCS: 71046

== ENCOUNTER 2023-09-07 15:34 | Inpatient (IN) | payer MEDICARE, SELFPAY ==
[2023-09-07] VITALS (42 sets, daily range): BP systolic 128–190; BP diastolic 52–86; PULSE 80–102; RESP 13–27; TEMP 37.4; O2SAT 92–100; BMI 39.4
--- NOTE | ~2023-09-07 | XR_ITS ---
EXAMINATION: XR chest 1V portable Exam Date/Time: 09/07/2023 15:45 BILL OF MATERIALS CLERK HISTORY: dyspnea COVID Comparison: 07/29/2023. RESULT: Lines, tubes, and devices: Right hilar surgical clip. Coronary artery stent. Lungs and pleura: Clear. Cardiomediastinal silhouette: Stable. Other: No acute osseous or upper abdominal finding. IMPRESSION: No acute cardiopulmonary process. Reviewed, dictated and finalized at location K. OF MATERIALS CLERK
--- NOTE | ~2023-09-07 | CT_ITS ---
EXAMINATION: CT soft tissue neck wo con DATE: 09/07/2023 18:46 INDICATION: TECHNIQUE: Computed tomography (CT) of the neck was performed with 75 mL Omnipaque-350 intravenous co ntrast. The dose-length product was 550.09 mGy-cm. COMPARISON: None FINDINGS: The thyroid gland is unremarkable. The submandibular and parotid glands are symmetric. There is n o cervical lymphadenopathy. There are no masses identified. Mild arch calcification. Decreased bl ood pole density as can be seen with anemia. Enlarged AP window lymph node. Distal tracheal and prox imal bronchial narrowing. Parapharyngeal and pre-glottic fat planes are preserved. Calcified plaq ues at the carotid bifurcations and left subclavian origin. Bilateral lens replacements. Visualized sinuses and mastoid air cells are well aerated. Patchy areas of groundglass opacity bilaterally. There is cervical spondylosis. Periodontal disease and dental caries. 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 Mild edema versus atypical infection in the lungs. AP window lymphadenopathy. Anemia. Reviewed, dictated and finalized at location K. ECT INTERN
--- NOTE | 2023-09-07 15:38 | ECG_ITS ---
Measurements Intervals [place] Rate: 95 P: 84 CO: 145 QRS: 59 QRSD: 74 T: 73 QT: 369 QTc: 464 Interpretive Statements SINUS RHYTHM BASELINE ARTIFACT- I, II, III, AVR, AVL, AVF, V1-V2 NORMAL ECG COMPARED TO ECG 05/23/2023 21:10:30 SINUS RHYTHM NOW PRESENT Electronically Signed On 09-07-2023 17:39:33 EXTENSION SPECIALIST by Anupam Mcdowell D.O.
[2023-09-07 15:57] LABS: Basophils Percent Auto 0.4 % (0.2-1.2); Eosinophils Absolute Auto 0.4 K/mm3 (0-0.3); Eosinophils Percent Auto 5.1 % (0-4.4); Hematocrit 37.5 % (37.0-47.0); Hemoglobin 11.6 g/dL (12.0-15.0); Immature Granulocyte Absolute 0.03 K/mm3 (0.00-0.031); Immature Granulocyte Percent A 0.4 % (0-0.5); Lymphocytes Absolute Auto 1.76 K/mm3 (0.9-3.2); Lymphocytes Percent Auto 24.9 % (18.3-44.2); Mean Corpuscular HGB Conc 30.9 g/dl (32-36); Mean Corpuscular Hemoglobin 28.4 pg (26-34); Mean Corpuscular Volume 91.7 fl (80-100); Mean Platelet Volume 9.8 fl (7.4-10.4); Monocytes Absolute Auto 0.4 K/mm3 (0.1-0.6); Monocytes Percent Auto 5.1 % (2.6-8.5); Neutrophils Absolute Auto 4.5 K/mm3 (1.3-6.7); Neutrophils Percent Auto 64.1 % (45.5-73.1); Platelet Count Result 232 k/mm3 (150-375); Red Blood Count 4.09 M/mm3 (4.2-5.4); Red Cell Distribution Width 15.3 % (11.5-14.5); White Blood Count 7.1 K/mm3 (4.5-10.0)
[2023-09-07 16:06] LABS: Alanine Aminotransferase 18 U/L (6-35); Albumin Level 3.7 g/dL (3.5-5.1); Alkaline Phosphatase 133 U/L (38-126); Anion Gap 8 mmol/L (8-16); Aspartate Amino Transferase 25 U/L (14-36); Bilirubin,Total 0.4 mg/dL (0.2-1.3); Blood Urea Nitrogen 30 mg/dL (7-17); Calcium 9.1 mg/dL (8.4-10.2); Carbon Dioxide 27 mmol/L (22-30); Chloride 103 mmol/L (98-107); Estimated CRCL calculation 33 ml/min; Estimated Glomerular Filt Rate 31; Glucose 291 mg/dL (65-110); Potassium 4.2 mmol/L (3.4-5.0); Sodium 138 mmol/L (137-145)
[2023-09-07 16:34] LABS: Influenza A QL RT-PCR Negative (Negative); Influenza B QL RT-PCR Negative (Negative); RSV RNA, RT-PCR Negative (Negative); SARS-CoV-2 RNA PCR Positive (Negative)
[2023-09-07] MEDS: ALBUTEROL SULFATE NEB 2.5 MG/3 ML INH INHALATION (17:23)
--- NOTE | 2023-09-07 18:20 | ED.GENADULT ---
HPI - General Adult General Chief complaint: Shortness of Breath/Dyspnea Stated complaint: dyspnea Time Seen by Provider: 09/07/23 16:09 History of Present Illness HPI narrative: 77-year-old female presents to the emergency department for evaluation of worsening shortness of breath. Patient reports that she did recently test positive for COVID. Patient states that she began developing worsening cough shortness of breath and difficulty breathing over the last 3 days. Related Data Home Medications Medication Instructions Recorded Confirmed divalproex 500 mg tablet,delayed 500 mg PO HS 03/06/22 08/27/23 release (Depakote) vit C 250 mg-E 90 mg-zinc 40 2 tablet PO DAILY 03/27/23 08/27/23 mg-copper 1 pz-osdagf-wrttoi chew tablet (PreserVision AREDS-2) buspirone 15 mg tablet 15 mg PO DAILY 05/08/23 08/27/23 venlafaxine 150 mg 300 mg PO DAILY 05/08/23 08/27/23 capsule,extended release 24 hr (Effexor XR) bumetanide 2 mg tablet 2 mg PO BID 06/09/23 08/27/23 evolocumab 140 mg/mL subcutaneous 140 mg subcut Q14D 07/13/23 08/27/23 pen injector (Repatha SureAdilsonick) Allergies Allergy/AdvReac Type Severity Reaction Status Date / Time Khgzqzc-SCO-DcF Reductase Allergy Intermediate Other Verified 08/26/23 13:39 Inhibitor pseudoephedrine Allergy Unknown Hives Verified 08/26/23 13:39 NSAIDS (Non-Steroidal AdvReac Intermediate Other Verified 08/26/23 13:39 Anti-Inflamma oxycodone AdvReac Intermediate Itching Verified 08/26/23 13:39 atenolol AdvReac Mild Muscle Pain Verified 08/26/23 13:39 exenatide [From Bydureon] AdvReac Mild Diarrhea Verified 08/26/23 13:39 hydrocodone AdvReac Mild Itching Verified 08/26/23 13:39 [From Panlor (hydrocodone-acetamin)] prochlorperazine AdvReac Mild Itching Verified 08/26/23 13:39 [From Compazine] rice AdvReac Mild Heartburn Verified 08/26/23 13:39 Review of Systems Review of Systems: All systems reviewed & are unremarkable except as noted in HPI and below PMFSH Past Medical History Medical History Anemia Anxiety Ataxia BMI 40.0-44.9, adult Breast cancer CHF (congestive heart failure) Echocardiogram 05/2022: Normal left ventricular systolic function EF 65-70%, mildly increased left ventricular wall thickness, diastolic dysfunction grade 2, moderately elevated E/E 20, increased global longitudinal strain and-18%, mild mitral valve regurgitation, mild tricuspid regurgitation, moderate pulmonary hypertension with RVSP of [address] Ann Chronic hip pain after total replacement of hip joint Degeneration of lumbar or lumbosacral intervertebral disc Depression Diabetes mellitus type 2 in obese (~1989) A1c 10 on July 21, 2022 Diabetic peripheral neuropathy History of stress test Hypertension Knee osteoarthritis Macular degeneration Mixed hyperlipidemia Normal esophagogastroduodenoscopy (EGD) Obstructive sleep apnea on CPAP Skin cancer Stage 3b chronic kidney disease (CKD) Dr. Eduardo Venous stasis dermatitis Surgical History Surgical History H/O cardiac catheterization H/O endoscopy History of cholecystectomy History of reconstruction of right breast History of right hip replacement (~2017) History of right mastectomy Status post cataract extraction of both eyes with insertion of intraocular lens Family History Family History Father Hypertension COPD (chronic obstructive pulmonary disease) Heart disease Diabetes mellitus Mother Lung cancer Depression Sibling Acute basophilic leukemia Sepsis Diabetes mellitus Acute myocardial infarction Daughter Depression Drug overdose Sibling No problems noted. Social History Social History Social History: The patient is di
[2023-09-07] MEDS: racEPINEPHrine 2.25% NEBU SOLN 0.5 ML VIAL.NEB INHALATION (18:22)
--- NOTE | 2023-09-07 21:29 | ADMGEN ---
This patient, Aleksandra Berman, was admitted to IMU Room 204-01. Patient/family oriented to hospital policies and general routines including ID bracelet, bed and alarms, visiting hours, pain management, procedures, bathroom and other care routines, personal items, smoking policy, room service/diet, and visiting hours. Information on how to activate the Rapid Response Team has been discussed. Patient/Family are encouraged to report perceived risks to care and to ask questions if they do not understand what they are told or what they should do.
[2023-09-07 21:48] LABS: Glucose Point of Care > 500 mg/dl (65-105)
--- NOTE | 2023-09-07 22:03 | PM.IMHP ---
H&P: HPI History of Present Illness Date/Time: 09/07/23 19:30 Chief Complaint: Shortness of breath. Narrative: This is a very pleasant 77-year-old female with coronary artery disease with history of stents, paroxysmal atrial fibrillation on anticoagulation, diastolic congestive heart failure, pulmonary hypertension, obstructive sleep apnea, hypertension, hyperlipidemia, chronic kidney disease, type 2 diabetes mellitus, memory impairment, and other comorbidities who presented to the emergency department via private vehicle for evaluation of shortness of breath. The patient provides the following history. She has not been feeling well for several days with generalized malaise, congestion, and cough occasionally productive of yellow phlegm. She lives alone but was exposed to some sick family members over the holidays and she tested positive for COVID a couple of days ago. The last 3 days she has developed increasing dyspnea on lesser and lesser exertion and she came and she came in today for evaluation. She denies fever, sore throat, hemoptysis, exertional chest pain, nausea, vomiting, and diarrhea. In the ED: She was afebrile on arrival with an SpO2 in the upper 90s on room air. According to the ED physician she had audible respirations across the room with some wheezing on exam but no overt stridor noted. 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 She was given racemic epinephrine with perhaps some mild improvement. She was also given dexamethasone 6 mg IV x1. She is being admitted in this setting for closer monitoring and treatment. Review of Systems Review of Systems: Twelve systems were reviewed and are negative except for as per HPI. [facility] Past Medical History Medical History (Updated 09/07/23 @ 22:13 by Tara Christianson PA-C) Anemia Anxiety Ataxia Breast cancer CHF (congestive heart failure) Echocardiogram 05/2022: Normal left ventricular systolic function EF 65-70%, mildly increased left ventricular wall thickness, diastolic dysfunction grade 2, moderately elevated E/E 20, increased global longitudinal strain and-18%, mild mitral valve regurgitation, mild tricuspid regurgitation, moderate pulmonary hypertension with RVSP of [address] 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 Eduardo Venous stasis dermatitis Surgical History Surgical History H/O cardiac catheterization H/O endoscopy History of cholecystectomy History of reconstruction of right breast History of right hip replacement (~2018) History of right mastectomy Status post cataract extraction of both eyes with insertion of intraocular lens Family History Family History Father Hypertension COPD (chronic obstructive pulmonary disease) Heart disease Diabetes mellitus Mother Lung cancer Depression Sibling Acute basophilic leukemia Sepsis Diabetes mellitus Acute myocardial infarction Daughter Depression Drug overdose Sibling No problems noted. Social History Social History (Updated 09/07/23 @ 22:10 by Tara Christianson PA-C) Social History: Surrogate medical decision maker: Luis Rome, jayne. Code status: Full code. Smoking status: Never smoker Second hand tobacco smoke exposure: Yes Alcoho
[2023-09-07 22:38] LABS: Hemoglobin A1C 8.8 % (<5.7)
[2023-09-07] MEDS: carvediloL 6.25 MG TABLET BY MOUTH (23:23)
[2023-09-07] MEDS: GABAPENTIN 100 MG CAPSULE PO (23:23)
[2023-09-07] MEDS: BUMETANIDE 1 MG TABLET 2 MG PO (23:23)
[2023-09-07] MEDS: DIVALPROEX SODIUM DR 250 MG TABEC 500 MG PO (23:23)
[2023-09-07] MEDS: ISOSORBIDE DINITRATE 10 MG TABLET BY MOUTH (23:23)
[2023-09-07] MEDS: INSULIN ASPART (*BKC) 100 UNITS/ML 12 UNITS SUB-Q (23:24)
[2023-09-07] MEDS: PRAMIPEXOLE 0.25 MG TABLET PO (23:24)
[2023-09-07] MEDS: APIXABAN 5 MG TABLET BY MOUTH (23:28)
[2023-09-07 23:29] LABS: INR 1.1; Prothrombin Time 14.9 Seconds (11.1-14.7)
[2023-09-07] MEDS: REMDESIVIR 200 MG/NS 250 ML 200 MG/250 ML BAG 250 MG IVPB (23:30)
[2023-09-07] MEDS: INSULIN GLARGINE (*BKC) 100 UNITS/ML 36 UNITS SUB-Q (23:31)
[2023-09-08] VITALS (26 sets, daily range): BP systolic 124–151; BP diastolic 58–69; PULSE 73–110; RESP 12–22; TEMP 35.8–36.7; O2SAT 92–100
[2023-09-08 00:34] LABS: Glucose Point of Care 488 mg/dl (65-105)
[2023-09-08] MEDS: INSULIN ASPART (*BKC) 100 UNITS/ML 12 UNITS SUB-Q ×3 (02:00→16:56)
[2023-09-08 04:09] LABS: Glucose Point of Care 366 mg/dl (65-105)
[2023-09-08 05:12] LABS: Hematocrit 35.5 % (37.0-47.0); Hemoglobin 10.8 g/dL (12.0-15.0); Mean Corpuscular HGB Conc 30.4 g/dl (32-36); Mean Corpuscular Hemoglobin 28.1 pg (26-34); Mean Corpuscular Volume 92.4 fl (80-100); Mean Platelet Volume 9.9 fl (7.4-10.4); Platelet Count Result 233 k/mm3 (150-375); Red Blood Count 3.84 M/mm3 (4.2-5.4); Red Cell Distribution Width 15.1 % (11.5-14.5); White Blood Count 7.8 K/mm3 (4.5-10.0)
[2023-09-08 05:30] LABS: Alanine Aminotransferase 26 U/L (6-35); Albumin Level 3.6 g/dL (3.5-5.1); Alkaline Phosphatase 122 U/L (38-126); Anion Gap 13 mmol/L (8-16); Aspartate Amino Transferase 23 U/L (14-36); Bilirubin,Total 0.2 mg/dL (0.2-1.3); Blood Urea Nitrogen 33 mg/dL (7-17); CRP 0.6 mg/dL (<1.0); Calcium 9.2 mg/dL (8.4-10.2); Carbon Dioxide 19 mmol/L (22-30); Chloride 103 mmol/L (98-107); Estimated CRCL calculation 33 ml/min; Estimated Glomerular Filt Rate 31; Glucose 397 mg/dL (65-110); Lactate Dehydrogenase 219 U/L (120-246); Magnesium 2.1 mg/dL (1.6-2.3); Potassium 4.5 mmol/L (3.4-5.0); Sodium 135 mmol/L (137-145)
--- NOTE | 2023-09-08 09:00 | PM.IMPN ---
Progress Note: A&P Assessment and Plan (1) COVID: Code(s): U07.1 - COVID-19 Status: Acute Assessment and Plan: Initiated on Decadron 6 mg IV 09/07/23, this was discontinued as she was stable on room air Remdesivir initiated 09/07/23 as she is high risk for complications, continue this for now (2) Tracheomalacia: Code(s): J39.8 - Other specified diseases of upper respiratory tract Status: Acute Assessment and Plan: Stable, monitor (3) Insulin dependent type 2 diabetes mellitus: Code(s): E11.9 - Type 2 diabetes mellitus without complications; Z79.4 - residential (current) use of insulin Status: Acute Assessment and Plan: Blood glucose reviewed 09/08/23, quite high, continue high-intensity sliding scale, increase Lantus from 36 units to 40 units, may need more Accu-Cheks plus sliding scale insulin, A1c 8.8 (4) Paroxysmal atrial fibrillation: Code(s): I48.0 - Paroxysmal atrial fibrillation Status: Acute Assessment and Plan: Continue Coreg, amiodarone, Eliquis, monitor (5) Chronic anticoagulation: Code(s): 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 Status: Acute Assessment and Plan: Continue Eliquis (6) Chronic kidney disease: Code(s): N18.9 - Chronic kidney disease, unspecified Status: Acute Assessment and Plan: Baseline appears to be around 1.5 currently at 1.6, monitor (7) Obstructive sleep apnea on CPAP: Code(s): G47.33 - Obstructive sleep apnea (adult) (pediatric); Z99.89 - Dependence on other enabling machines and devices Status: Chronic Assessment and Plan: CPAP as tolerated while sleeping (8) Hypertension: Qualifiers: Hypertension type: unspecified Qualified Code(s): I10 - Essential (primary) hypertension Code(s): I10 - Essential (primary) hypertension Status: Acute Assessment and Plan: Blood pressure reviewed 09/08/23 Plan DVT prophylaxis with eliquis GI prophylaxis with PPI Code status full code Subjective Date/time seen: 09/08/23 09:00 Interval history: 77-year-old female with coronary artery disease with history of stents, paroxysmal atrial fibrillation on anticoagulation, diastolic congestive heart failure, pulmonary hypertension, obstructive sleep apnea, hypertension, hyperlipidemia, chronic kidney disease, type 2 diabetes mellitus, memory impairment, and other comorbidities here with shortness of breath and being treated for COVID. No overnight events noted. No chest pain. No nausea, vomiting or diarrhea. No fevers or chills. SOB much improved. Review of Systems Review of Systems: 12 point review of systems was assessed and was negative except as noted in the HPI Exam Narrative: General: No acute distress, alert and oriented per baseline HEENT: Atraumatic, normocephalic, mucous membranes moist CV: Regular rate and rhythm, S1, S2 Lungs: Diminished throughout, no wheeze Abdomen: Soft, nontender, nondistended Extremities: Normal to inspection Skin: No rashes noted, no lesions or wounds seen Psych: Euthymic, normal affect Objective Data Vital Signs Vital Signs: Vital Signs - 24 hr 09/07/23 15:39 09/07/23 15:43 09/07/23 15:51 Temperature Pulse Rate 94 95 Respiratory Rate 20 Blood Pressure 149/62 H Pulse Oximetry 92 100 Oxygen Delivery Room Air 09/07/23 15:43 09/07/23 15:45 09/07/23 15:52 Temperature Pulse Rate 102 H 94 88 Respiratory Rate 15 16 17 Blood Pressure 149/62 H Pulse Oximetry 100 100 99 Oxygen Delivery 09/07/23 16:00 09/07/23 16:02 09/07/23 16:15 Temperature Pulse Rate 89 88 88 Respiratory Rate 17 25 H Blood Pressure 158/70 H Pulse Oximetry 99 98 100 Oxygen Delivery 09/07/23 16:30 09/07/23 16:32 09/07/23 16:45 Temperature Pulse Rate 87 85 83 Respiratory Rate Blood Pressure 141/52 H Pulse Oximet
[2023-09-08 09:11] LABS: Glucose Point of Care 300 mg/dl (65-105)
[2023-09-08] MEDS: INSULIN ASPART (*BKC) 100 UNITS/ML SUB-Q ×3 (09:18→20:14)
[2023-09-08] MEDS: GABAPENTIN 100 MG CAPSULE PO ×3 (09:21→16:56)
[2023-09-08] MEDS: OPTI-GEN TAB 2 TABLET PO (09:21)
[2023-09-08] MEDS: allopurinoL 100 MG TABLET PO (09:22)
[2023-09-08] MEDS: VENLAFAXINE HCL XR 75 MG CAP.ER.24H 300 MG PO (09:22)
[2023-09-08] MEDS: busPIRone HCL 5 MG TABLET 15 MG PO (09:22)
[2023-09-08] MEDS: carvediloL 6.25 MG TABLET BY MOUTH ×2 (09:22→20:13)
[2023-09-08] MEDS: FAMOTIDINE 20 MG TABLET BY MOUTH (09:22)
[2023-09-08] MEDS: AMIODARONE HCL 200 MG TABLET BY MOUTH (09:23)
[2023-09-08] MEDS: BUMETANIDE 1 MG TABLET 2 MG PO ×2 (09:23→16:56)
[2023-09-08] MEDS: ISOSORBIDE DINITRATE 10 MG TABLET BY MOUTH ×3 (09:23→16:56)
[2023-09-08] MEDS: APIXABAN 5 MG TABLET BY MOUTH ×2 (09:23→20:13)
[2023-09-08] MEDS: INSULIN GLARGINE (*BKC) 100 UNITS/ML 40 UNITS SUB-Q (09:24)
[2023-09-08] MEDS: ALBUTEROL SULFATE NEB 2.5 MG/3 ML INH INHALATION ×3 (09:53→21:20)
[2023-09-08] MEDS: PRAMIPEXOLE 0.25 MG TABLET PO ×2 (10:00→16:56)
[2023-09-08] MEDS: PANTOPRAZOLE 40 MG TABLET PO (10:00)
[2023-09-08 12:19] LABS: Glucose Point of Care 432 mg/dl (65-105)
[2023-09-08] MEDS: MICONAZOLE NITRATE 2% CREAM 30 GM TUBE 1 APPLIC TOPICAL ×2 (13:05→16:58)
[2023-09-08] MEDS: INSULIN ASPART (*BKC) 100 UNITS/ML 15 UNITS SUB-Q (13:06)
[2023-09-08 16:32] LABS: Glucose Point of Care 236 mg/dl (65-105)
[2023-09-08 20:02] LABS: Glucose Point of Care 216 mg/dl (65-105)
[2023-09-08] MEDS: DIVALPROEX SODIUM DR 250 MG TABEC 500 MG PO (20:14)
[2023-09-08] MEDS: REMDESIVIR 100 MG/NS 250 ML 100 MG/250 ML BAG 250 MG IVPB (22:09)
[2023-09-09] VITALS (19 sets, daily range): BP systolic 132–168; BP diastolic 49–80; PULSE 62–77; RESP 16–20; TEMP 35.7–36.4; O2SAT 94–100
[2023-09-09] MEDS: ALBUTEROL SULFATE NEB 2.5 MG/3 ML INH INHALATION ×3 (02:26→12:51)
[2023-09-09 05:29] LABS: Basophils Percent Auto 0.4 % (0.2-1.2); Eosinophils Absolute Auto 0.3 K/mm3 (0-0.3); Eosinophils Percent Auto 2.7 % (0-4.4); Hematocrit 32.3 % (37.0-47.0); Hemoglobin 10.3 g/dL (12.0-15.0); Immature Granulocyte Absolute 0.03 K/mm3 (0.00-0.031); Immature Granulocyte Percent A 0.3 % (0-0.5); Lymphocytes Absolute Auto 2.74 K/mm3 (0.9-3.2); Lymphocytes Percent Auto 26.3 % (18.3-44.2); Mean Corpuscular HGB Conc 31.9 g/dl (32-36); Mean Corpuscular Hemoglobin 28.5 pg (26-34); Mean Corpuscular Volume 89.5 fl (80-100); Mean Platelet Volume 9.9 fl (7.4-10.4); Monocytes Absolute Auto 0.4 K/mm3 (0.1-0.6); Monocytes Percent Auto 3.7 % (2.6-8.5); Neutrophils Absolute Auto 6.9 K/mm3 (1.3-6.7); Neutrophils Percent Auto 66.6 % (45.5-73.1); Platelet Count Result 226 k/mm3 (150-375); Red Blood Count 3.61 M/mm3 (4.2-5.4); Red Cell Distribution Width 15.2 % (11.5-14.5); White Blood Count 10.4 K/mm3 (4.5-10.0)
[2023-09-09 05:40] LABS: INR 1.3
[2023-09-09 05:43] LABS: Alanine Aminotransferase 16 U/L (6-35); Albumin Level 3.4 g/dL (3.5-5.1); Alkaline Phosphatase 102 U/L (38-126); Anion Gap 12 mmol/L (8-16); Aspartate Amino Transferase 19 U/L (14-36); Bilirubin,Total 0.2 mg/dL (0.2-1.3); Blood Urea Nitrogen 40 mg/dL (7-17); Carbon Dioxide 22 mmol/L (22-30); Chloride 103 mmol/L (98-107); Estimated CRCL calculation 30 ml/min; Estimated Glomerular Filt Rate 27; Glucose 142 mg/dL (65-110); Potassium 3.4 mmol/L (3.4-5.0); Sodium 137 mmol/L (137-145)
[2023-09-09 07:37] LABS: Glucose Point of Care 150 mg/dl (65-105)
[2023-09-09] MEDS: INSULIN ASPART (*BKC) 100 UNITS/ML 12 UNITS SUB-Q ×2 (09:04→13:21)
[2023-09-09] MEDS: APIXABAN 5 MG TABLET BY MOUTH ×2 (09:05→21:01)
[2023-09-09] MEDS: allopurinoL 100 MG TABLET PO (09:05)
[2023-09-09] MEDS: AMIODARONE HCL 200 MG TABLET BY MOUTH (09:05)
[2023-09-09] MEDS: BUMETANIDE 1 MG TABLET 2 MG PO ×2 (09:06→17:40)
[2023-09-09] MEDS: GABAPENTIN 100 MG CAPSULE PO ×3 (09:06→17:40)
[2023-09-09] MEDS: carvediloL 6.25 MG TABLET BY MOUTH ×2 (09:06→21:01)
[2023-09-09] MEDS: busPIRone HCL 5 MG TABLET 15 MG PO (09:06)
[2023-09-09] MEDS: ISOSORBIDE DINITRATE 10 MG TABLET BY MOUTH ×3 (09:06→17:40)
[2023-09-09] MEDS: FAMOTIDINE 20 MG TABLET BY MOUTH (09:06)
[2023-09-09] MEDS: OPTI-GEN TAB 2 TABLET PO (09:06)
[2023-09-09] MEDS: PRAMIPEXOLE 0.25 MG TABLET PO ×2 (09:07→17:40)
[2023-09-09] MEDS: VENLAFAXINE HCL XR 75 MG CAP.ER.24H 300 MG PO (09:07)
[2023-09-09] MEDS: MICONAZOLE NITRATE 2% CREAM 30 GM TUBE 1 APPLIC TOPICAL ×2 (09:07→17:40)
[2023-09-09] MEDS: PANTOPRAZOLE 40 MG TABLET PO (09:07)
[2023-09-09] MEDS: INSULIN GLARGINE (*BKC) 100 UNITS/ML 40 UNITS SUB-Q (09:07)
[2023-09-09 12:45] LABS: Glucose Point of Care 328 mg/dl (65-105)
[2023-09-09] MEDS: INSULIN ASPART (*BKC) 100 UNITS/ML SUB-Q ×2 (13:22→17:39)
--- NOTE | 2023-09-09 13:34 | PC.NURSE ---
Discussed with patient how well therapy said she did with walking and moving around the room. Patient stated she didn't want to go home and what if she fell in the floor and hit her head? Would she be able to stay then. I told her No, that's not what we're doing. You have a chair alarm on. Reinforced with the tech to make sure that the patient's bed alarm is on when patient goes back to bed.
--- NOTE | 2023-09-09 15:43 | PM.IMPN ---
Progress Note: A&P Assessment and Plan (1) COVID: Code(s): U07.1 - COVID-19 Status: Acute Assessment and Plan: Patient presents with shortness of breath. She was positive for COVID. She has multiple medical problems. This puts her at high risk for complications from COVID. Chest x-ray is clear. CRP 0.6. CT soft tissue showing age-related tracheomalacia and atypical infection of lung Initiated on Decadron 6 mg IV and remdesivir 09/07/23. Dexamethasone was discontinued as she was stable on room air Remdesivir will be continued due to her high risk for complications (2) Tracheomalacia: Code(s): J39.8 - Other specified diseases of upper respiratory tract Status: Acute Assessment and Plan: As above. Monitor (3) Insulin dependent type 2 diabetes mellitus: Code(s): E11.9 - Type 2 diabetes mellitus without complications; Z79.4 - intermediate (current) use of insulin Status: Acute Assessment and Plan: Hemoglobin A1c 8.8%. The patient's blood glucose was reviewed on 09/09 Glucose was 142 this morning a backup the 300s before mealtimes. Continue AccuCheks covering with sliding scale. Hypoglycemia protocol available as needed. Continue Lantus. Advance mealtime NovoLog. (4) Paroxysmal atrial fibrillation: Code(s): I48.0 - Paroxysmal atrial fibrillation Status: Acute Assessment and Plan: Patient on chronic anticoagulation for paroxysmal AFib. She has brief runs of narrow complex regular tachycardia probably of atrial flutter or atrial tachycardia. Continue Coreg, amiodarone, Eliquis Continue to monitor. (5) Chronic kidney disease: Code(s): N18.9 - Chronic kidney disease, unspecified Status: Acute Assessment and Plan: Baseline creatinine 1.4-1.7. Creatinine here has been running 1.6-1.8. Probably within her baseline. Continue to follow. (6) Obstructive sleep apnea on CPAP: Code(s): G47.33 - Obstructive sleep apnea (adult) (pediatric); Z99.89 - Dependence on other enabling machines and devices Status: Chronic Assessment and Plan: CPAP has been ordered at night as tolerated. Encourage compliance. (7) Hypertension: Qualifiers: Hypertension type: unspecified Qualified Code(s): I10 - Essential (primary) hypertension Code(s): I10 - Essential (primary) hypertension Status: Acute Assessment and Plan: Patient's blood pressure was reviewed on 09/09 Blood pressure remains reasonably well controlled. Will continue current medications. Plan DVT prophylaxis with eliquis GI prophylaxis with PPI Code status full code Subjective Date/time seen: 09/09/23 15:43 Interval history: 77-year-old female with coronary artery disease with history of stents, paroxysmal atrial fibrillation on anticoagulation, diastolic congestive heart failure, pulmonary hypertension, obstructive sleep apnea, hypertension, hyperlipidemia, chronic kidney disease, type 2 diabetes mellitus, memory impairment, and other comorbidities here with shortness of breath and being treated for COVID. Assuming care. Chart reviewed. Patient is up walking with a walker and is independent. Physical therapy has signed off. Patient refuses home health. She feels well. Minimal cough. Cough is productive yellow sputum. No hemoptysis. No chest pain. Feels her chronic pedal edema better Exam Narrative: AF 97.5 132/53 73 18 100% ra Gen - NARD Chest -few scattered rhonchi otherwise clear. CV - RRR S1/S2. Tele showing 2 brief runs of atrial tach vs AFlutter Abd - Soft, NT/ND, Positive BS Ext - woody pedal edema with wrinkling Psych - Nml mood and affect Skin - Warm and dry Objective Data Vital Signs Vital Signs: Vital Signs - 24 hr 09/08/23 16:22 09/08/23 16:00 09/08/23 18:00 Temperature 96.5 F L Pulse Rate 78 80 79 Respiratory Rate 22 H Blood Pressure 148/61 H Pul
[2023-09-09 16:47] LABS: Glucose Point of Care 326 mg/dl (65-105)
[2023-09-09] MEDS: INSULIN ASPART (*BKC) 100 UNITS/ML 15 UNITS SUB-Q (17:39)
--- NOTE | 2023-09-09 18:55 | PC.NURSE ---
Report received per telephone from CARMEN Garcia RN.
[2023-09-09 20:57] LABS: Glucose Point of Care 132 mg/dl (65-105)
[2023-09-09] MEDS: DIVALPROEX SODIUM DR 250 MG TABEC 500 MG PO (21:00)
[2023-09-09] MEDS: REMDESIVIR 100 MG/NS 250 ML 100 MG/250 ML BAG 250 MG IVPB (21:55)
[2023-09-10] VITALS (11 sets, daily range): BP systolic 132–176; BP diastolic 60–72; PULSE 65–88; RESP 18–20; TEMP 36.3–36.6; O2SAT 97–100
[2023-09-10] MEDS: ALBUTEROL SULFATE NEB 2.5 MG/3 ML INH INHALATION ×3 (01:45→21:08)
--- NOTE | 2023-09-10 02:09 | PCRCNOTE ---
Window of time for administration has passed. See next scheduled administration.
[2023-09-10 07:31] LABS: Basophils Percent Auto 0.5 % (0.2-1.2); Eosinophils Absolute Auto 0.4 K/mm3 (0-0.3); Eosinophils Percent Auto 4.5 % (0-4.4); Hemoglobin 10.9 g/dL (12.0-15.0); Immature Granulocyte Absolute 0.04 K/mm3 (0.00-0.031); Immature Granulocyte Percent A 0.5 % (0-0.5); Lymphocytes Absolute Auto 2.51 K/mm3 (0.9-3.2); Lymphocytes Percent Auto 31.1 % (18.3-44.2); Mean Corpuscular HGB Conc 31.1 g/dl (32-36); Mean Corpuscular Hemoglobin 28.6 pg (26-34); Mean Corpuscular Volume 91.9 fl (80-100); Mean Platelet Volume 10.1 fl (7.4-10.4); Monocytes Absolute Auto 0.5 K/mm3 (0.1-0.6); Monocytes Percent Auto 6.1 % (2.6-8.5); Neutrophils Absolute Auto 4.6 K/mm3 (1.3-6.7); Neutrophils Percent Auto 57.3 % (45.5-73.1); Platelet Count Result 234 k/mm3 (150-375); Red Blood Count 3.81 M/mm3 (4.2-5.4); Red Cell Distribution Width 15.3 % (11.5-14.5); White Blood Count 8.1 K/mm3 (4.5-10.0)
[2023-09-10 07:48] LABS: Glucose Point of Care 65 mg/dl (65-105)
[2023-09-10 07:56] LABS: Alanine Aminotransferase 15 U/L (6-35); Albumin Level 3.4 g/dL (3.5-5.1); Alkaline Phosphatase 100 U/L (38-126); Anion Gap 9 mmol/L (8-16); Aspartate Amino Transferase 19 U/L (14-36); Bilirubin,Total 0.2 mg/dL (0.2-1.3); Blood Urea Nitrogen 38 mg/dL (7-17); Calcium 8.8 mg/dL (8.4-10.2); Carbon Dioxide 28 mmol/L (22-30); Chloride 103 mmol/L (98-107); Estimated CRCL calculation 30 ml/min; Estimated Glomerular Filt Rate 27; Glucose 64 mg/dL (65-110); Potassium 3.4 mmol/L (3.4-5.0); Sodium 140 mmol/L (137-145)
[2023-09-10] MEDS: APIXABAN 5 MG TABLET BY MOUTH ×2 (10:13→22:04)
[2023-09-10] MEDS: VENLAFAXINE HCL XR 75 MG CAP.ER.24H 300 MG PO (10:13)
[2023-09-10 10:14] LABS: Glucose Point of Care 254 mg/dl (65-105)
[2023-09-10] MEDS: busPIRone HCL 5 MG TABLET 15 MG PO (10:14)
[2023-09-10] MEDS: OPTI-GEN TAB 2 TABLET PO (10:14)
[2023-09-10] MEDS: FAMOTIDINE 20 MG TABLET BY MOUTH (10:14)
[2023-09-10] MEDS: GABAPENTIN 100 MG CAPSULE PO ×3 (10:14→16:52)
[2023-09-10] MEDS: allopurinoL 100 MG TABLET PO (10:15)
[2023-09-10] MEDS: PANTOPRAZOLE 40 MG TABLET PO (10:15)
[2023-09-10] MEDS: carvediloL 6.25 MG TABLET BY MOUTH ×2 (10:34→22:04)
[2023-09-10] MEDS: AMIODARONE HCL 200 MG TABLET BY MOUTH (10:35)
[2023-09-10] MEDS: POTASSIUM CHLORIDE 20 MEQ ER TABLET PO (10:35)
[2023-09-10] MEDS: INSULIN ASPART (*BKC) 100 UNITS/ML SUB-Q ×2 (10:36→12:31)
[2023-09-10] MEDS: ISOSORBIDE DINITRATE 10 MG TABLET BY MOUTH ×3 (10:37→16:52)
--- NOTE | 2023-09-10 11:18 | PC.NURSE ---
Morning blood glucose 65. Apple juice and breakfast provided. Recheck blood glucose of 254. MD notified of BG levels and current orders of 35u Lantus, 15u Novolog and Sliding scale Novolog orders to hold lantus and 15u novolog at this time but administer sliding scale insulin with plans to reevaluate patients insulin orders. also orders to hold bumex at this time.
[2023-09-10 11:33] LABS: Glucose Point of Care 269 mg/dl (65-105)
--- NOTE | 2023-09-10 12:19 | PM.IMPN ---
Progress Note: A&P Assessment and Plan (1) COVID: Code(s): U07.1 - COVID-19 Status: Acute Assessment and Plan: Patient presents with shortness of breath. She was positive for COVID. She has multiple medical problems. This puts her at high risk for complications from COVID. Chest x-ray is clear. CRP 0.6. CT soft tissue showing age-related tracheomalacia and atypical infection of lung Initiated on Decadron 6 mg IV and remdesivir 09/07/23. Dexamethasone was discontinued as she was stable on room air Remdesivir will be continued due to her high risk for complications with last dose tomorrow (2) Tracheomalacia: Code(s): J39.8 - Other specified diseases of upper respiratory tract Status: Acute Assessment and Plan: As above. 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 The patient's blood glucose was reviewed on 09/10 Glucose was 64 this morning Continue AccuCheks but hold sliding scale. Hypoglycemia protocol available as needed. Continue Lantus but change to evening dosing and decrease dose. Decrease mealtime NovoLog. (4) Paroxysmal atrial fibrillation: Code(s): I48.0 - Paroxysmal atrial fibrillation Status: Acute Assessment and Plan: Patient on chronic anticoagulation for paroxysmal AFib. She was having brief runs of narrow complex regular tachycardia probably of atrial flutter or atrial tachycardia. Continue Coreg, amiodarone, Eliquis (5) Chronic kidney disease: Code(s): N18.9 - Chronic kidney disease, unspecified Status: Acute Assessment and Plan: Baseline creatinine 1.4-1.7. Creatinine here has been running 1.6-1.8. Probably within her baseline. Hold Bumex and repeat labs in am Continue to follow. (6) Obstructive sleep apnea on CPAP: Code(s): G47.33 - Obstructive sleep apnea (adult) (pediatric); Z99.89 - Dependence on other enabling machines and devices Status: Chronic Assessment and Plan: CPAP has been ordered at night as tolerated. Encourage compliance. (7) Hypertension: Qualifiers: Hypertension type: unspecified Qualified Code(s): I10 - Essential (primary) hypertension Code(s): I10 - Essential (primary) hypertension Status: Acute Assessment and Plan: Patient's blood pressure was reviewed on 09/10 Blood pressure remains reasonably well controlled. Will continue current medications. Plan DVT prophylaxis with eliquis GI prophylaxis with PPI Code status full code Subjective Date/time seen: 09/10/23 12:19 Interval history: 77yo female with CAD with history of stents, pAFib on anticoagulation, dCHF, pulmonary hypertension, ANDREA, HTN, CKD, type 2 diabetes mellitus, memory impairment, and other comorbidities here with shortness of breath and being treated for COVID. No chest pain or shortness of breath. She does mention that she has episodes of retching with meals. No nausea. Food sticking sensation mid chest. She has had tehse symptoms for years but not had an evaluation. Exam Narrative: AF 97.3 132/62 70 18 99% ra Gen - NARD Chest - CTA bilaterally, nml RR CV - RRR S1/S2 Abd - Soft, NT/ND, Positive BS Ext - trace pedal edema Psych - Nml mood and affect Skin - Warm and dry Objective Data Vital Signs Vital Signs: Vital Signs - 24 hr 09/09/23 12:57 09/09/23 14:00 09/09/23 12:55 Temperature Pulse Rate 73 69 Respiratory Rate 18 Blood Pressure Pulse Oximetry Oxygen Delivery Room Air 09/09/23 13:05 09/09/23 16:00 09/09/23 16:00 Temperature 97.6 F Pulse Rate 70 71 68 Respiratory Rate 18 20 Blood Pressure 149/80 H Pulse Oximetry 100 Oxygen Delivery 09/09/23 16:00 09/09/23 21:01 09/09/23 22
[2023-09-10] MEDS: PRAMIPEXOLE 0.25 MG TABLET PO ×2 (12:22→16:52)
[2023-09-10] MEDS: INSULIN ASPART (*BKC) 100 UNITS/ML 13 UNITS SUB-Q (12:31)
[2023-09-10] MEDS: REMDESIVIR 100 MG/NS 250 ML 100 MG/250 ML BAG 250 MG IVPB (14:05)
[2023-09-10] MEDS: EUCERIN CREAM 120 GM JAR 1 APPLIC TOPICAL (14:05)
[2023-09-10 16:38] LABS: Glucose Point of Care 87 mg/dl (65-105)
[2023-09-10] MEDS: INSULIN GLARGINE (*BKC) 100 UNITS/ML 30 UNITS SUB-Q (22:04)
[2023-09-10] MEDS: DIVALPROEX SODIUM DR 250 MG TABEC 500 MG PO (22:04)
[2023-09-11 00:22] VITALS: BP 143/61; PULSE 71; RESP 20; TEMP 36.2; O2SAT 98
[2023-09-11 02:49] VITALS: PULSE 73; RESP 18
[2023-09-11] MEDS: ALBUTEROL SULFATE NEB 2.5 MG/3 ML INH INHALATION ×2 (02:49→07:13)
[2023-09-11 03:02] VITALS: PULSE 76; RESP 18
[2023-09-11 04:45] VITALS: BP 137/53; PULSE 74; RESP 16; TEMP 36.6; O2SAT 100
[2023-09-11 05:08] LABS: Glucose Point of Care 192 mg/dl (65-105)
[2023-09-11 06:25] LABS: Anion Gap 8 mmol/L (8-16); Blood Urea Nitrogen 36 mg/dL (7-17); Carbon Dioxide 29 mmol/L (22-30); Chloride 102 mmol/L (98-107); Estimated CRCL calculation 30 ml/min; Estimated Glomerular Filt Rate 27; Glucose 137 mg/dL (65-110); Potassium 3.7 mmol/L (3.4-5.0); Sodium 139 mmol/L (137-145)
[2023-09-11 07:15] VITALS: PULSE 78; RESP 18; O2SAT 97
[2023-09-11 07:26] VITALS: PULSE 81; RESP 18
[2023-09-11 07:52] LABS: Glucose Point of Care 102 mg/dl (65-105)
[2023-09-11] MEDS: REMDESIVIR 100 MG/NS 250 ML 100 MG/250 ML BAG 250 MG IVPB (09:27)
[2023-09-11] MEDS: INSULIN ASPART (*BKC) 100 UNITS/ML 9 UNITS SUB-Q ×2 (09:27→12:03)
[2023-09-11] MEDS: ISOSORBIDE DINITRATE 10 MG TABLET BY MOUTH ×2 (09:28→12:03)
[2023-09-11] MEDS: AMIODARONE HCL 200 MG TABLET BY MOUTH (09:28)
[2023-09-11] MEDS: VENLAFAXINE HCL XR 75 MG CAP.ER.24H 300 MG PO (09:28)
[2023-09-11] MEDS: OPTI-GEN TAB 2 TABLET PO (09:28)
[2023-09-11] MEDS: allopurinoL 100 MG TABLET PO (09:28)
[2023-09-11] MEDS: FAMOTIDINE 20 MG TABLET BY MOUTH (09:28)
[2023-09-11] MEDS: carvediloL 6.25 MG TABLET BY MOUTH (09:28)
[2023-09-11] MEDS: APIXABAN 5 MG TABLET BY MOUTH (09:28)
[2023-09-11] MEDS: GABAPENTIN 100 MG CAPSULE PO ×2 (09:28→12:03)
[2023-09-11] MEDS: PANTOPRAZOLE 40 MG TABLET PO (09:28)
[2023-09-11] MEDS: BUMETANIDE 1 MG TABLET 2 MG PO (09:28)
[2023-09-11] MEDS: busPIRone HCL 5 MG TABLET 15 MG PO (09:28)
[2023-09-11] MEDS: MICONAZOLE NITRATE 2% CREAM 30 GM TUBE 1 APPLIC TOPICAL (09:29)
[2023-09-11] MEDS: PRAMIPEXOLE 0.25 MG TABLET PO (09:29)
[2023-09-11] MEDS: EUCERIN CREAM 120 GM JAR 1 APPLIC TOPICAL (09:29)
--- NOTE | 2023-09-11 11:16 | PM.DS ---
DS: Admitting Diagnosis Discharge Date 09/11/23 Admitting Diagnosis Shortness of breath DS: Discharge Diagnosis Discharge Diagnosis (1) COVID: Code(s): U07.1 - COVID-19 Status: Acute (2) Tracheomalacia: Code(s): J39.8 - Other specified diseases of upper respiratory tract Status: Acute (3) Insulin dependent type 2 diabetes mellitus: Code(s): E11.9 - Type 2 diabetes mellitus without complications; Z79.4 - alf (current) use of insulin Status: Acute (4) Paroxysmal atrial fibrillation: Code(s): I48.0 - Paroxysmal atrial fibrillation Status: Acute (5) Chronic kidney disease: Code(s): N18.9 - Chronic kidney disease, unspecified Status: Acute (6) Obstructive sleep apnea on CPAP: Code(s): G47.33 - Obstructive sleep apnea (adult) (pediatric); Z99.89 - Dependence on other enabling machines and devices Status: Chronic (7) Hypertension: Qualifiers: Hypertension type: unspecified Qualified Code(s): I10 - Essential (primary) hypertension Code(s): I10 - Essential (primary) hypertension Status: Acute DS: Summary Hospital Course Reason for hospitalization: 77yo female with CAD with history of stents, pAFib on anticoagulation, dCHF, pulmonary hypertension, ANDREA, HTN, CKD, type 2 diabetes mellitus, memory impairment, and other comorbidities here with shortness of breath and being treated for COVID. Please see H&P for details. Hospital Course: Patient presents with shortness of breath.? She was positive for COVID.?She has multiple medical problems that puts her at high risk for complications from COVID.?Chest x-ray was clear.? CRP 0.6. CT soft tissue showing age-related tracheomalacia and atypical infection of lung consistent with COVID. Initiated on Decadron 6 mg IV and remdesivir 09/07/23.? Dexamethasone was discontinued as she was on room air. SHe completed a course of Remdesivir. Hgb A1c 8.8%.? The patient's blood glucose was monitored with AccuCheks but hold sliding scale.? Hypoglycemia protocol was available as needed.?Patient on chronic anticoagulation for paroxysmal AFib.?We continued her Coreg, amiodarone, and Eliquis. She also has CKD with a baseline creatinine 1.4-1.7. Creatinine here has been running 1.6-1.8 and probably within her baseline. She overall did well and was able to be discharged on 09/11/23. Status at Discharge Cognitive/behavioral status at discharge: stable Time Spent with Patient Time attestation: Total time spent providing and/or coordinating discharge services: 34 minutes Time spent: Greater than 30 minutes Exam Narrative: AF 97.9 137/53 81 18 97% ra Gen - NARD Chest - CTA bilaterally, nml RR CV - RRR S1/S2 Abd - Soft, NT/ND, Positive BS Ext - no pedal edema Psych - Nml mood and affect Skin - Warm and dry DS: Data Data Completed and Pending Labs on day of discharge: Labs from last 24 hours 09/11/23 09/11/23 09/10/23 07:49 05:56 20:34 Sodium 139 Potassium 3.7 Chloride 102 Carbon Dioxide 29 Anion Gap 8 BUN 36 H Creatinine 1.80 H Estim Creat Clear Calc 30 Estimated GFR 27 L Glucose 137 H POC Capillary Glucose 102 192 H Calcium 9.0 09/10/23 09/10/23 16:36 11:28 Sodium Potassium Chloride Carbon Dioxide Anion Gap BUN Creatinine Estim Creat Clear Calc Estimated GFR Glucose POC Capillary Glucose 87 269 H Calcium Discharge Plan Discharge Attending physician on discharge: Miguel Ahmadi Discharging Clinician: Miguel Ahmadi Anticipated Discharge Date/Time: 09/11/23 11:24 Patient Disposition: Home, Self-Care Activity: as tolerated Diet: diabetic Discharge Instructions: Please avoid large gathering, wear face coverings in public for the next 5 days and practice social distance. Please check glucose before meals and before bed. Record and bring into your doctor
[2023-09-11 11:44] LABS: Glucose Point of Care 174 mg/dl (65-105)
== END 2023-09-11 13:15 | disposition home or self-care (01) | DRG 178 ==
LOC: ANHED 19:59 → ANHIMU 21:10 → ANH3MEDSUR 09-09 20:24
PROVIDERS: Physician Assistant; Student in an Organized Health Care Education/Training Program; Admitting Provider Family Medicine; Emergency Provider Emergency Medicine; PCP Family Medicine; Visit Provider Internal Medicine
DX: U07.1 COVID-19 (principal); I13.0 Hypertensive heart and chronic kidney disease with heart failure and stage 1 through stage 4 chronic kidney disease, or unspecified chronic kidney disease; I50.32 Chronic diastolic (congestive) heart failure; Z68.41 Body mass index [BMI] 40.0-44.9, adult; J39.8 Other specified diseases of upper respiratory tract; E11.22 Type 2 diabetes mellitus with diabetic chronic kidney disease; N18.32 Chronic kidney disease, stage 3b; I48.0 Paroxysmal atrial fibrillation; G47.33 Obstructive sleep apnea (adult) (pediatric); I25.10 Atherosclerotic heart disease of native coronary artery without angina pectoris; E78.2 Mixed hyperlipidemia; D64.9 Anemia, unspecified; M17.10 Unilateral primary osteoarthritis, unspecified knee; E11.42 Type 2 diabetes mellitus with diabetic polyneuropathy; H35.30 Unspecified macular degeneration; E66.9 Obesity, unspecified; Z79.01 Long term (current) use of anticoagulants; Z95.5 Presence of coronary angioplasty implant and graft; Z79.4 Long term (current) use of insulin; Z90.49 Acquired absence of other specified parts of digestive tract; Z96.641 Presence of right artificial hip joint; Z96.1 Presence of intraocular lens; Z98.42 Cataract extraction status, left eye; Z98.41 Cataract extraction status, right eye; Z85.828 Personal history of other malignant neoplasm of skin; Z85.3 Personal history of malignant neoplasm of breast
CPT/HCPCS: 36415; 70490; 71045; 80048; 80053; 82248; 82728; 82948; 83036; 83615; 83735; 85025; 85027; 85610; 86140; 87637; 93005; 94640; 96372; 96374; 97161; 97165; 99285; A9270; G0378; J0248; J1100; J1815

== ENCOUNTER 2023-10-06 13:57 | Inpatient (IN) | payer MEDICARE, SELFPAY ==
[2023-10-06] VITALS (32 sets, daily range): BP systolic 138–211; BP diastolic 57–96; PULSE 81–95; RESP 10–25; TEMP 36.8; O2SAT 97–100
--- NOTE | ~2023-10-06 | CT_ITS ---
EXAMINATION: CT brain wo con DATE: 10/06/2023 19:16 INDICATION: AMS . TECHNIQUE: Computed tomography (CT) of the head was performed without intravenous contrast. The mA wa s adjusted according to patient size. Iterative reconstruction technique was employed. The dose-lengt h product was 605.33 mGy-cm. COMPARISON: None. FINDINGS: No acute intracranial hemorrhage or extra-axial fluid collection. No hydrocephalus, mass, or herniation. No acute ischemic infarct. Unremarkable dural venous sinus attenuation. No acute osseous abnormality. The aerated spaces are clear. Mild atrophy and chronic white matter change. Atherosclerotic intracranial calcification. Bilateral l ens replacements. IMPRESSION: No acute intracranial process. Reviewed, dictated and finalized at location K. R CONSERVATION SPECIALIST
--- NOTE | ~2023-10-06 | MR_ITS ---
MRI of the brain Clinical History: Altered mental status Technique: Axial and sagittal T1-weighted images were acquired. These were followed by axial T2-weigh anatoliy, diffusion weighted, gradient, and FLAIR images. Findings: There is no acute infarct, intracranial hemorrhage, or mass lesion. There are mild chronic white matter changes in the periventricular white matter bilaterally. Ventricles and subarachnoid spaces are mildly dilated. Orbits are unremarkable. Paranasal sinuses and mastoid air cells are clear. Major intracranial flow voids appear intact. Sagittal midline structures are intact. IMPRESSION: No acute infarct, intracranial hemorrhage, or mass lesion. Mild chronic microvascular ischemic change, and mild generalized atrophy. Reviewed, dictated and finalized at [facility]. FAT COOK FRY
--- NOTE | ~2023-10-06 | US_ITS ---
EXAMINATION: US renal BI DATE: 10/08/2023 08:43 INDICATION: Elevated creatinine. TECHNIQUE: Multiple ultrasound grayscale images of the kidneys were obtained. COMPARISON: Ultrasound 08/07/2022, CT abdomen and pelvis 07/22/2022 FINDINGS: The right kidney measures 10.8 x 5.3 x 4.4 cm. The left kidney measures 10.7 x 5.8 x 3.6 cm. The kidn eys demonstrate normal parenchymal echogenicity. There is no hydronephrosis. The bladder is normal. IMPRESSION: 1. Normal kidneys. No hydronephrosis. Reviewed, dictated and finalized at location A. LING SUPERINTENDENT
--- NOTE | 2023-10-06 14:08 | ECG_ITS ---
Measurements Intervals [place] Rate: 84 P: 93 FL: 157 QRS: 45 QRSD: 77 T: 54 QT: 405 QTc: 482 Interpretive Statements SINUS RHYTHM ATRIAL PREMATURE COMPLEX BASELINE ARTIFACT- I, II, III, AVR, AVL, AVF, V4-V6 BORDERLINE ECG COMPARED TO ECG 09/07/2023 15:45:07 NO SIGNIFICANT CHANGES Electronically Signed On 10-06-2023 14:25:05 DICTAPHONE TYPIST by Anupam Mcdowell D.O.
[2023-10-06 14:38] LABS: Basophils Absolute Auto 0.1 K/mm3 (0.0-0.1); Basophils Percent Auto 1.2 % (0.2-1.2); Eosinophils Absolute Auto 0.5 K/mm3 (0-0.3); Eosinophils Percent Auto 5.7 % (0-4.4); Hematocrit 37.9 % (37.0-47.0); Immature Granulocyte Absolute 0.03 K/mm3 (0.00-0.031); Immature Granulocyte Percent A 0.3 % (0-0.5); Lymphocytes Percent Auto 19.5 % (18.3-44.2); Mean Corpuscular HGB Conc 31.7 g/dl (32-36); Mean Corpuscular Hemoglobin 28.8 pg (26-34); Mean Corpuscular Volume 90.9 fl (80-100); Mean Platelet Volume 9.1 fl (7.4-10.4); Monocytes Absolute Auto 0.5 K/mm3 (0.1-0.6); Monocytes Percent Auto 5.1 % (2.6-8.5); Neutrophils Absolute Auto 6.3 K/mm3 (1.3-6.7); Neutrophils Percent Auto 68.2 % (45.5-73.1); Platelet Count Result 306 k/mm3 (150-375); Red Blood Count 4.17 M/mm3 (4.2-5.4); Red Cell Distribution Width 15.8 % (11.5-14.5); White Blood Count 9.2 K/mm3 (4.5-10.0)
[2023-10-06 14:51] LABS: Partial Thromboplastin Time 26.4 SECONDS (22.3-36.8)
[2023-10-06 14:53] LABS: Alanine Aminotransferase 19 U/L (6-35); Albumin Level 4.1 g/dL (3.5-5.1); Alkaline Phosphatase 140 U/L (38-126); Anion Gap 10 mmol/L (8-16); Aspartate Amino Transferase 28 U/L (14-36); Bilirubin,Total 0.4 mg/dL (0.2-1.3); Blood Urea Nitrogen 19 mg/dL (7-17); Calcium 9.9 mg/dL (8.4-10.2); Carbon Dioxide 26 mmol/L (22-30); Chloride 101 mmol/L (98-107); Estimated CRCL calculation 33 ml/min; Estimated Glomerular Filt Rate 31; Glucose 335 mg/dL (65-110); Potassium 4.5 mmol/L (3.4-5.0); Sodium 137 mmol/L (137-145)
--- NOTE | 2023-10-06 18:59 | ED.AMS ---
HPI - Altered Mental Status General Chief Complaint: Altered Mental Status Stated Complaint: altered mental status Time Seen by Provider: 10/06/23 18:49 Source: patient and family Mode of arrival: ambulatory Limitations: no limitations History of Present Illness HPI narrative: This is a 77 year old female that presents to the ER for worsening mentation. Ongoing over the last couple of weeks. Her son reports she has been more and more confused especially the last couple of days. She lives home alone. He is worried about her ADLs and her taking her medication properly. Patient has no complaints currently. Related Data Home Medications Medication Instructions Recorded Confirmed divalproex 500 mg tablet,delayed 500 mg PO HS 03/06/22 09/30/23 release (Depakote) vit C 250 mg-E 90 mg-zinc 40 2 tablet PO DAILY 03/27/23 09/30/23 mg-copper 1 [id number] chew tablet (PreserVision AREDS-2) buspirone 15 mg tablet 15 mg PO DAILY 05/08/23 09/30/23 venlafaxine 150 mg 300 mg PO DAILY 05/08/23 09/30/23 capsule,extended release 24 hr (Effexor XR) bumetanide 2 mg tablet 2 mg PO BID 06/09/23 09/30/23 evolocumab 140 mg/mL subcutaneous 140 mg subcut Q14D 07/13/23 09/30/23 pen injector (Repagnieszkaa Marco Antonio) Allergies Allergy/AdvReac Type Severity Reaction Status Date / Time [id number]-[id number] Reductase Allergy Intermediate Other Verified 09/30/23 14:07 Inhibitor pseudoephedrine Allergy Unknown Hives Verified 09/30/23 14:07 NSAIDS (Non-Steroidal AdvReac Intermediate Other Verified 09/30/23 14:07 Anti-Inflamma oxycodone AdvReac Intermediate Itching Verified 09/30/23 14:07 atenolol AdvReac Mild Muscle Pain Verified 09/30/23 14:07 exenatide [From Bydureon] AdvReac Mild Diarrhea Verified 09/30/23 14:07 hydrocodone AdvReac Mild Itching Verified 09/30/23 14:07 [From Panlor (hydrocodone-acetamin)] prochlorperazine AdvReac Mild Itching Verified 09/30/23 14:07 [From Compazine] rice AdvReac Mild Heartburn Verified 09/30/23 14:07 Review of Systems Review of Systems: CONSTITUTIONAL: Denies fever ENT: Denies rhinorrhea, congestion CARDIOVASCULAR: Denies chest pain RESPIRATORY: Denies dyspnea. GASTROINTESTINAL: Denies abdominal pain, nausea, vomiting GENITOURINARY: Denies dysuria All systems reviewed & are unremarkable except as noted in HPI and below PMFSH Past Medical History Medical History (Updated 10/06/23 @ 23:13 by Amy Cosby PA-C) Anemia Anxiety Ataxia Breast cancer CHF (congestive heart failure) Echocardiogram 05/2022: Normal left ventricular systolic function EF 65-70%, mildly increased left ventricular wall thickness, diastolic dysfunction grade 2, moderately elevated E/E 20, increased global longitudinal strain and-18%, mild mitral valve regurgitation, mild tricuspid regurgitation, moderate pulmonary hypertension with RVSP of [address] 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 Jayce AQUINO (upper respiratory infection) Venous stasis dermatitis Surgical History Surgical History H/O cardiac catheterization H/O endoscopy History of cholecystectomy History of reconstruction of right breast History of right hip replacement (~2017) History of right mastectomy Status post cataract extraction of both eyes with insertion of intraocular lens Family History Family History Father Hyp
[2023-10-06 20:29] LABS: Appearance Urine Clear (Clear); Bacteria Urine None Seen /hpf; Bilirubin Urine Negative (Negative); Blood Urine Negative (Negative); Color Urine Yellow (Yellow); Glucose Urine UA 3+ mg/dL (Negative); Ketones Urine Trace mg/dL (Negative); Leukocyte Esterase Ur Negative LEU/UL (Negative); Nitrate Urine Negative (Negative); Protein Urine 1+ mg/dL (Negative); RBC Urine 0-2 /hpf (0-2); Specific Grav Ur 1.015 (1.001-1.035); Squamous Epithelial Cell Urine None seen /hpf (Few); Urobilinogen Urine 0.2 mg/dL (<2.0); WBC Urine 0-5 /hpf; pH Urine 5.5 (5.0-9.0)
[2023-10-06] MEDS: carvediloL 6.25 MG TABLET PO (20:32)
[2023-10-06 20:33] LABS: Add Urine Microscopic? YES
--- NOTE | 2023-10-06 22:35 | PM.IMHP ---
H&P: HPI History of Present Illness Date/Time: 10/06/23 22:35 Chief Complaint: ams Narrative: This is a 77-year-old female with past medical history significant for type diabetes mellitus, breast cancer, congestive heart failure, DJD, diabetic peripheral neuropathy, hypertension, obstructive sleep apnea on CPAP, paroxysmal atrial fibrillation, chronic kidney disease, Chronic venous stasis dermatitis. Patient was brought to the emergency room for evaluation by her son due to concerns with patient's overall decline in her mental health, cognition, patient has been unable to regulate her blood sugars has had readings of 400 in home device sugar monitoring, house is in disarray patient noted to be confused at times unable to differentiate remote control from phone. Patient seems confused at times and ask repetitive questions unable to contribute to history of present illness. EXAMINATION: CT brain wo con DATE: 10/06/2023 19:16 INDICATION: AMS . TECHNIQUE: Computed tomography (CT) of the head was performed without intravenous contrast. The mA was adjusted according to patient size. Iterative reconstruction technique was employed. The dose-length product was 605.33 mGy-cm. COMPARISON: None. FINDINGS: No acute intracranial hemorrhage or extra-axial fluid collection. No hydrocephalus, mass, or herniation. No acute ischemic infarct. Unremarkable dural venous sinus attenuation. No acute osseous abnormality. The? aerated spaces are clear. Mild atrophy and chronic white matter change. Atherosclerotic intracranial calcification. Bilateral lens replacements. IMPRESSION:? No acute intracranial process. Review of Systems Review of Systems: ROS unobtainable: Yes unobtainable due to mental status ( Confusion) [facility] Past Medical History Medical History (Updated 10/07/23 @ 03:07 by Gabino Sanchez MD) Anemia Anxiety Ataxia Breast cancer CHF (congestive heart failure) Echocardiogram 05/2022: Normal left ventricular systolic function EF 65-70%, mildly increased left ventricular wall thickness, diastolic dysfunction grade 2, moderately elevated E/E 20, increased global longitudinal strain and-18%, mild mitral valve regurgitation, mild tricuspid regurgitation, moderate pulmonary hypertension with RVSP of [address] 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 Jayce AQUINO (upper respiratory infection) Venous stasis dermatitis Surgical History Surgical History H/O cardiac catheterization H/O endoscopy History of cholecystectomy History of reconstruction of right breast History of right hip replacement (~2018) History of right mastectomy Status post cataract extraction of both eyes with insertion of intraocular lens Family History Family History Father Hypertension COPD (chronic obstructive pulmonary disease) Heart disease Diabetes mellitus Mother Lung cancer Depression Sibling Acute basophilic leukemia Sepsis Diabetes mellitus Acute myocardial infarction Daughter Depression Drug overdose Sibling No problems noted. Social History Social History Social History: Surrogate medical decision maker: Luis Rome, son. Code status: Full code. Smoking status: Never smoker Second hand toba
[2023-10-06 23:33] LABS: Glucose Point of Care 292 mg/dl (65-105)
[2023-10-07] VITALS (11 sets, daily range): BP systolic 116–172; BP diastolic 54–69; PULSE 76–86; RESP 12–18; TEMP 36.2–36.7; O2SAT 95–100; BMI 38.7
--- NOTE | 2023-10-07 01:04 | ADMGEN ---
This patient, Aleksandra Berman, was admitted to Medical Room 257-01. Patient/family oriented to hospital policies and general routines including ID bracelet, bed and alarms, visiting hours, pain management, procedures, bathroom and other care routines, personal items, smoking policy, room service/diet, and visiting hours. Information on how to activate the Rapid Response Team has been discussed. Patient/Family are encouraged to report perceived risks to care and to ask questions if they do not understand what they are told or what they should do.
--- NOTE | 2023-10-07 04:29 | PHAR ---
HOME MED (Trospium 20 mg tablet) 1 TABLET BID VERIFIED
[2023-10-07] MEDS: PRAMIPEXOLE 0.25 MG TABLET PO ×2 (08:05→17:33)
[2023-10-07] MEDS: busPIRone HCL 5 MG TABLET 15 MG PO (08:05)
[2023-10-07] MEDS: BUMETANIDE 1 MG TABLET 2 MG PO ×2 (08:05→17:33)
[2023-10-07] MEDS: AMIODARONE HCL 200 MG TABLET PO (08:05)
[2023-10-07] MEDS: GABAPENTIN 100 MG CAPSULE PO ×3 (08:05→17:33)
[2023-10-07] MEDS: ISOSORBIDE DINITRATE 10 MG TABLET PO ×3 (08:05→17:33)
[2023-10-07] MEDS: FAMOTIDINE 20 MG TABLET PO (08:06)
[2023-10-07] MEDS: ACETAMINOPHEN 325 MG TABLET 650 MG PO (08:07)
[2023-10-07] MEDS: allopurinoL 100 MG TABLET PO (08:07)
[2023-10-07] MEDS: OPTI-GEN TAB 2 TABLET PO (08:07)
[2023-10-07] MEDS: APIXABAN 5 MG TABLET PO ×2 (08:07→20:54)
[2023-10-07] MEDS: VENLAFAXINE HCL XR 75 MG CAP.ER.24H 300 MG PO (08:07)
[2023-10-07] MEDS: carvediloL 6.25 MG TABLET PO ×2 (08:07→20:54)
[2023-10-07] MEDS: NYSTATIN OINTMENT 15 GM TUBE 1 APPLIC TOPICAL ×2 (08:09→17:34)
[2023-10-07 08:19] LABS: Glucose Point of Care 201 mg/dl (65-105)
[2023-10-07] MEDS: INSULIN ASPART (*BKC) 100 UNITS/ML 12 UNITS SUB-Q ×2 (09:43→12:51)
[2023-10-07] MEDS: INSULIN GLARGINE (*BKC) 100 UNITS/ML 36 UNITS SUB-Q (09:45)
[2023-10-07 12:20] LABS: Glucose Point of Care 323 mg/dl (65-105)
[2023-10-07 16:54] LABS: Glucose Point of Care 76 mg/dl (65-105)
--- NOTE | 2023-10-07 17:47 | PM.IMPN ---
Progress Note: A&P Assessment and Plan (1) Altered mental status: Qualifiers: Altered mental status type: unspecified Qualified Code(s): R41.82 - Altered mental status, unspecified Code(s): R41.82 - Altered mental status, unspecified Status: Acute Assessment and Plan: -initiate fall precautions MRI of the brain pending CT of the head reviewed neurology consult (2) Chronic kidney disease: Code(s): N18.9 - Chronic kidney disease, unspecified Status: Acute Assessment and Plan: continue to monitor BUN and creatinine (3) Paroxysmal atrial fibrillation: Code(s): I48.0 - Paroxysmal atrial fibrillation Status: Acute Assessment and Plan: rate controlled and anticoagulated -continue home medication (4) Chronic anticoagulation: Code(s): Z79.01 - [facility] (current) use of anticoagulants Status: Acute Assessment and Plan: currently on Eliquis (5) Diabetic peripheral neuropathy: Code(s): E11.42 - Type 2 diabetes mellitus with diabetic polyneuropathy Status: Acute Assessment and Plan: -last A1c 8.8 09/07/2023 -bedside glucose management -continue insulin aspart 12 units t.i.d. -continue insulin glargine 36 units daily on divalproex and gabapentin (6) Type 2 diabetes mellitus with hyperglycemia, with long-term current use of insulin: Code(s): E11.65 - Type 2 diabetes mellitus with hyperglycemia; Z79.4 - emt intermediate (current) use of insulin Status: Acute Assessment and Plan: on insulin (7) Stage 3b chronic kidney disease (CKD): Code(s): N18.32 - Chronic kidney disease, stage 3b Status: Acute Assessment and Plan: continue to monitor BUN and creatinine -check daily CMP, CBC (8) Benign hypertension with chronic kidney disease: Code(s): I12.9 - Hypertensive chronic kidney disease with stage 1 through stage 4 chronic kidney disease, or unspecified chronic kidney disease Status: Acute Assessment and Plan: continue home meds (9) CHF (congestive heart failure): Qualifiers: Heart failure type: diastolic Heart failure chronicity: acute on chronic Qualified Code(s): I50.33 - Acute on chronic diastolic (congestive) heart failure Code(s): I50.9 - Heart failure, unspecified Status: Acute Assessment and Plan: patient appears at baseline on physical exam (10) Obstructive sleep apnea on CPAP: Code(s): G47.33 - Obstructive sleep apnea (adult) (pediatric); Z99.89 - Dependence on other enabling machines and devices Status: Chronic Assessment and Plan: noncompliance with CPAP (11) Breast cancer: Code(s): C50.919 - Malignant neoplasm of unspecified site of unspecified female breast Status: Acute Assessment and Plan: status post mastectomy Plan Continue home medications: VTE Prophylaxis: Apixaban DIET: Heart healthy Anticipated hospital stay: > 2 days Code Status: Full code Subjective Date/time seen: 10/07/23 17:47 Interval history: Chief Complaint: ams Narrative: ?This is a 77-year-old female with past medical history significant for type diabetes mellitus, breast cancer, congestive heart failure, DJD, diabetic peripheral neuropathy, hypertension, obstructive sleep apnea on CPAP, paroxysmal atrial fibrillation, chronic kidney disease,? Chronic venous stasis dermatitis.? Patient was brought to the emergency room for evaluation by her son due to concerns with patient's overall decline in her mental health, cognition, patient has been unable to regulate her blood sugars has had readings of 400 in? home device sugar monitoring, house is in disarray patient noted to be confused at times unable to differentiate remote control from phone.? Patient seems confused at times and ask repetitive questions unable to contribute to history of present illness. Interval Hx: 10/07/2023: pt seen this am, katelynn
[2023-10-07] MEDS: DIVALPROEX SODIUM DR 250 MG TABEC 500 MG PO (20:54)
[2023-10-07 21:01] LABS: Glucose Point of Care 282 mg/dl (65-105)
[2023-10-08] VITALS (10 sets, daily range): BP systolic 117–140; BP diastolic 51–64; PULSE 77–88; RESP 18; TEMP 36.1–36.7; O2SAT 96–100
[2023-10-08 06:23] LABS: Basophils Absolute Auto 0.1 K/mm3 (0.0-0.1); Basophils Percent Auto 1.3 % (0.2-1.2); Eosinophils Percent Auto 12.5 % (0-4.4); Hemoglobin 10.4 g/dL (12.0-15.0); Immature Granulocyte Absolute 0.03 K/mm3 (0.00-0.031); Immature Granulocyte Percent A 0.4 % (0-0.5); Lymphocytes Absolute Auto 2.37 K/mm3 (0.9-3.2); Lymphocytes Percent Auto 31.1 % (18.3-44.2); Mean Corpuscular HGB Conc 30.6 g/dl (32-36); Mean Corpuscular Hemoglobin 28.4 pg (26-34); Mean Corpuscular Volume 92.9 fl (80-100); Mean Platelet Volume 9.4 fl (7.4-10.4); Monocytes Absolute Auto 0.6 K/mm3 (0.1-0.6); Monocytes Percent Auto 7.2 % (2.6-8.5); Neutrophils Absolute Auto 3.6 K/mm3 (1.3-6.7); Neutrophils Percent Auto 47.5 % (45.5-73.1); Platelet Count Result 256 k/mm3 (150-375); Red Blood Count 3.66 M/mm3 (4.2-5.4); Red Cell Distribution Width 15.9 % (11.5-14.5); White Blood Count 7.6 K/mm3 (4.5-10.0)
[2023-10-08 06:35] LABS: Alanine Aminotransferase 16 U/L (6-35); Albumin Level 3.5 g/dL (3.5-5.1); Alkaline Phosphatase 103 U/L (38-126); Anion Gap 8 mmol/L (8-16); Aspartate Amino Transferase 20 U/L (14-36); Bilirubin,Total 0.3 mg/dL (0.2-1.3); Blood Urea Nitrogen 28 mg/dL (7-17); Calcium 9.6 mg/dL (8.4-10.2); Carbon Dioxide 27 mmol/L (22-30); Chloride 101 mmol/L (98-107); Estimated CRCL calculation 22 ml/min; Estimated Glomerular Filt Rate 20; Glucose 186 mg/dL (65-110); Potassium 3.6 mmol/L (3.4-5.0); Sodium 136 mmol/L (137-145)
[2023-10-08 07:56] LABS: Glucose Point of Care 179 mg/dl (65-105)
--- NOTE | 2023-10-08 08:34 | WPDNEURCNPN ---
Assessment and Plan Assessment and plan (1) Altered mental status: Qualifiers: Altered mental status type: unspecified Qualified Code(s): R41.82 - Altered mental status, unspecified Code(s): R41.82 - Altered mental status, unspecified Status: Acute (2) Hyperglycemia: Code(s): R73.9 - Hyperglycemia, unspecified Status: Resolved (3) Atrial fibrillation: Qualifiers: Atrial fibrillation type: unspecified Qualified Code(s): I48.91 - Unspecified atrial fibrillation Code(s): I48.91 - Unspecified atrial fibrillation Status: Acute (4) Generalized weakness: Code(s): R53.1 - Weakness Status: Acute (5) Hypertension: Qualifiers: Hypertension type: unspecified Qualified Code(s): I10 - Essential (primary) hypertension Code(s): I10 - Essential (primary) hypertension Status: Acute (6) Diabetes: Code(s): E11.9 - Type 2 diabetes mellitus without complications Status: Acute Plan Aleksandra Berman is a 77 year old female with a history of diabetes, breast cancer s/p mastectomy, CHF, diabetic neuropathy, atrial fibrillation on anticoagulation, ANDREA, HTN presenting for evaluation of altered mental status. Acute change is likely metabolic in etiology given elevated blood sugars on presentation. Tox screen was not obtained on presentation. Could also be accidental ingestion if patient has not been mentating well and has been in charge of taking her own medications. She seems to be back to baseline currently. There may also be underlying mild cognitive impairment which could explain the history of short term memory loss. - Check B12, folate, TSH - Can follow-up with Neurology as outpatient for memory concerns Consult date: 10/08/23 Reason for consult: Altered mental status HPI: Aleksandra Berman is a 77 year old female with a history of diabetes, breast cancer s/p mastectomy, CHF, diabetic neuropathy, atrial fibrillation on anticoagulation, ANDREA, HTN presenting for evaluation of altered mental status. Patient was brought in by her son due to patient's decline in mental status, congition, and unable to perform ADLs at home for the past few weeks. Her blood sugars at home were 400s in home device glucose monitor. When she presented to [place] ED, she was confused and asking repetitive questions. She had a CT head that was negative for acute changes. EKG showed sinus rhythm. UA without UTI. Labs were significant for blood sugar in the 300s. She had an MRI brain done this morning that was negative for any acute changes. Tox screen was not obtained at time of admission. Per hospitalists note, patient is back to baseline now. She takes a number of neurotropic medications at home including Depakote, gabapentin, Effexor., Buspar. Patient reports that she is mostly back to her baseline currently. She has been having short term memory issues for quite some time. She lives a lone but has an aid that comes to her house about 4 times per week. She typically doesn't remember the year, which is not unusual for her. She denies any family history of dementia. She does her finances on her own but thinks maybe she will need to pass it along to someone else to do for her. The aid helps with cooking and cleaning. Patient does her bathing and grooming on her own. Review of Systems Review of Systems: All systems reviewed & are unremarkable except as noted in HPI and below PMFSH Past Medical History Medical History Anemia Anxiety Ataxia Breast cancer CHF (congestive heart failure) Echocardiogram 05/2022: Normal left ventricular systolic function EF 65-70%, mildly increased left ventricular wall thickness, diastolic dysfunction grade 2, moderately elevated E/E 20, increased global longitudinal strain and-18%, mild mitral valve regurgitation, mild tricuspid regurgitation, moderate pulmonary hypertension with RVSP of 46
[2023-10-08] MEDS: INSULIN ASPART (*BKC) 100 UNITS/ML 12 UNITS SUB-Q ×2 (09:41→12:59)
[2023-10-08] MEDS: INSULIN GLARGINE (*BKC) 100 UNITS/ML 36 UNITS SUB-Q (09:44)
[2023-10-08] MEDS: carvediloL 6.25 MG TABLET PO ×2 (10:00→20:40)
[2023-10-08] MEDS: busPIRone HCL 5 MG TABLET 15 MG PO (10:01)
[2023-10-08] MEDS: ISOSORBIDE DINITRATE 10 MG TABLET PO ×3 (10:01→18:47)
[2023-10-08] MEDS: PRAMIPEXOLE 0.25 MG TABLET PO ×2 (10:01→18:47)
[2023-10-08] MEDS: APIXABAN 5 MG TABLET PO ×2 (10:02→20:40)
[2023-10-08] MEDS: VENLAFAXINE HCL XR 75 MG CAP.ER.24H 300 MG PO (10:02)
[2023-10-08] MEDS: FAMOTIDINE 20 MG TABLET PO (10:02)
[2023-10-08] MEDS: GABAPENTIN 100 MG CAPSULE PO ×3 (10:02→18:47)
[2023-10-08] MEDS: AMIODARONE HCL 200 MG TABLET PO (10:02)
[2023-10-08] MEDS: OPTI-GEN TAB 2 TABLET PO (10:03)
[2023-10-08] MEDS: NYSTATIN OINTMENT 15 GM TUBE 1 APPLIC TOPICAL ×2 (10:14→18:48)
--- NOTE | 2023-10-08 10:52 | PM.IMPN ---
Progress Note: A&P Assessment and Plan (1) Altered mental status: Qualifiers: Altered mental status type: unspecified Qualified Code(s): R41.82 - Altered mental status, unspecified Code(s): R41.82 - Altered mental status, unspecified Status: Acute Assessment and Plan: -initiate fall precautions MRI/brain reveals: No acute infarct, intracranial hemorrhage, or mass lesion. Mild chronic microvascular ischemic change, and mild generalized atrophy. CT of the head reviewed neurology consulted appreciate recommendation and plan -neuro recommends follow up out-pt (2) Chronic kidney disease: Code(s): N18.9 - Chronic kidney disease, unspecified Status: Acute Assessment and Plan: continue to monitor BUN and creatinine -recheck BMP in the a.m. (3) Paroxysmal atrial fibrillation: Code(s): I48.0 - Paroxysmal atrial fibrillation Status: Acute Assessment and Plan: rate controlled and anticoagulated -continue home medication (4) Chronic anticoagulation: Code(s): Z79.01 - state appellate clerk (current) use of anticoagulants Status: Acute Assessment and Plan: currently on Eliquis (5) Diabetic peripheral neuropathy: Code(s): E11.42 - Type 2 diabetes mellitus with diabetic polyneuropathy Status: Acute Assessment and Plan: -pt is a poor historian in regards to her daily insulin management -last A1c 8.8 09/07/2023 -bedside glucose management -continue insulin aspart 12 units t.i.d. -continue insulin glargine 36 units daily on divalproex and gabapentin (6) Type 2 diabetes mellitus with hyperglycemia, with long-term current use of insulin: Code(s): E11.65 - Type 2 diabetes mellitus with hyperglycemia; Z79.4 - state appellate clerk (current) use of insulin Status: Acute Assessment and Plan: on insulin (7) Stage 3b chronic kidney disease (CKD): Code(s): N18.32 - Chronic kidney disease, stage 3b Status: Acute Assessment and Plan: continue to monitor BUN and creatinine -check daily CMP, CBC (8) Benign hypertension with chronic kidney disease: Code(s): I12.9 - Hypertensive chronic kidney disease with stage 1 through stage 4 chronic kidney disease, or unspecified chronic kidney disease Status: Acute Assessment and Plan: continue home meds (9) CHF (congestive heart failure): Qualifiers: Heart failure type: diastolic Heart failure chronicity: acute on chronic Qualified Code(s): I50.33 - Acute on chronic diastolic (congestive) heart failure Code(s): I50.9 - Heart failure, unspecified Status: Acute Assessment and Plan: patient appears at baseline on physical exam (10) Obstructive sleep apnea on CPAP: Code(s): G47.33 - Obstructive sleep apnea (adult) (pediatric); Z99.89 - Dependence on other enabling machines and devices Status: Chronic Assessment and Plan: noncompliance with CPAP (11) Breast cancer: Code(s): C50.919 - Malignant neoplasm of unspecified site of unspecified female breast Status: Acute Assessment and Plan: status post mastectomy (12) Hypoglycemia: Code(s): E16.2 - Hypoglycemia, unspecified Status: Acute Assessment and Plan: -pt with a hypoglycemic event -imitate hypoglycemia protocol -continue to monitor glucose (13) Debility: Code(s): R53.81 - Other malaise Status: Acute Assessment and Plan: -long discussion with son by the bedside, he has moderate concern that pt is unable to manage her diabetes at home due to ongoing cognitive impairment and non-compliance with her medications. - pt lives alone, she has a non-medical services coordinator most days of the week, although she wears a dexcom unit, son reports he often notices her glucose levels are high - concerned for safety, i want to reach out to [facility], to explore subacute options for discharge -continue to monitor sabrina
[2023-10-08] MEDS: LACTATED RINGERS 1,000 ML 75 ML IV CONT (11:36)
[2023-10-08 11:57] LABS: Glucose Point of Care 255 mg/dl (65-105)
--- NOTE | 2023-10-08 13:01 | PM.CNNEP ---
Assessment and Plan Assessment and plan (1) ALBERTINA (acute kidney injury): Code(s): N17.9 - Acute kidney failure, unspecified Status: Acute Assessment and Plan: suspect related to volume depletion worsened by recent hyperglycemia follow-up on urine testing and renal ultrasound agree with trial of IVFs follow repeat labs and UOP (2) Stage 3b chronic kidney disease: Code(s): N18.32 - Chronic kidney disease, stage 3b Status: Chronic Assessment and Plan: baseline creatinine has been running ~ 1.5 - 1.9mg/dl in the last year however, has been as low as 1.2 - 1.3mg/dl in the past due to her hypertension, diabetes, obstructive sleep apnea, gout, diastolic heart failure, and age-related change.? ? (3) Altered mental status: Qualifiers: Altered mental status type: unspecified Qualified Code(s): R41.82 - Altered mental status, unspecified Code(s): R41.82 - Altered mental status, unspecified Status: Acute Assessment and Plan: appears back o baseline Neurology recommendations noted CT and MRI of brain noted follow mentation (4) Paroxysmal atrial fibrillation: Code(s): I48.0 - Paroxysmal atrial fibrillation Status: Chronic Assessment and Plan: rate control strategy on anticoiagulation (5) Hypertension: Qualifiers: Hypertension type: unspecified Qualified Code(s): I10 - Essential (primary) hypertension Code(s): I10 - Essential (primary) hypertension Status: Chronic Assessment and Plan: reasonable control at this time follow trend of hemodyanmics (6) Type 2 diabetes mellitus with hyperglycemia, with long-term current use of insulin: Code(s): E11.65 - Type 2 diabetes mellitus with hyperglycemia; Z79.4 - long term acute care registered nurse (current) use of insulin Status: Chronic Assessment and Plan: follow accu-cheks glycemic control per hospitalists I will continue follow the patient with you while she remains hospitalized and make further recommendations as needed. Thank you for allowing me to participate in the care of this patient. History of Present Illness Reason for Consult Consult date: 10/08/23 Reason for consult: acute renal failure (on chronic kidney disease) Chief Complaint Chief complaint: Failure to Thrive, AMS History of Present Illness Narrative: The patient is a 77-year-old female with a past medical history as outlined below who presented to [facility] Emergency room due to altered mental status. The patient's son brought the patient in as he was quite concerned due to the patient's overall decline in mentation as well as cognition for last several days if not longer. The patient's blood sugars have been quite erratic and it seems evident that the patient is having trouble administering her medications to keep this controlled. Furthermore, her house was in disarray and she has been having difficulty differentiating simple things like the remote control versus her cell phone. Given these ongoing issues, she came to the emergency room for further assessment. Workup and evaluation emergency room demonstrated the patient to be hemodynamically stable if not a bit hypertensive on presentation but otherwise afebrile. Routine blood work demonstrated a normal CBC and her chemistry was consistent with her known history of chronic kidney disease. Her urinalysis was without infection and her CT scan of her brain did not show any acute abnormalities. However, given that the patient lives alone and the concern that she is unable to take care of herself, it was felt that she may need placement if not a short-stay and possible SNF/rehab. She was subsequently admitted to hospital for further evaluation and therapy. Since her admission, it was noted by labs done recently that her creatinine was somewhat higher than baseline. In spite of this, she otherwise appeared to be doing reaso
--- NOTE | 2023-10-08 14:50 | PC.NURSE ---
On 10/08/23, the student, [Mary Moore], provided care and completed [facility] documentation on this patient. I have reviewed the student's documentation and agree with the findings.
--- NOTE | 2023-10-08 17:00 | PC.NURSE ---
bs 47 no hypoglycemic protocol orders, pt given 4oz of orange juice, alert and oriented at this time
[2023-10-08 17:07] LABS: Glucose Point of Care 48 mg/dl (65-105)
[2023-10-08 17:26] LABS: Glucose Point of Care 57 mg/dl (65-105)
--- NOTE | 2023-10-08 17:35 | PC.NURSE ---
blood glucose recheck 57, dinner tray has arrived, will continue to monitor
[2023-10-08 18:01] LABS: Free T4 Free Thyroxine Reflex 1.14 ng/dL (0.78-2.19)
[2023-10-08 19:08] LABS: Glucose Point of Care 183 mg/dl (65-105)
--- NOTE | 2023-10-08 20:18 | PC.NURSE ---
preceptor for Rosa Sanderson license pending RN, all documentation reviewed, assessments completed as charted
[2023-10-08] MEDS: DIVALPROEX SODIUM DR 250 MG TABEC 500 MG PO (20:40)
[2023-10-08 21:02] LABS: Glucose Point of Care 181 mg/dl (65-105)
[2023-10-09] VITALS (14 sets, daily range): BP systolic 90–170; BP diastolic 51–66; PULSE 71–84; RESP 16–20; TEMP 35.7–36.7; O2SAT 97–100
[2023-10-09 05:41] LABS: Basophils Absolute Auto 0.1 K/mm3 (0.0-0.1); Basophils Percent Auto 0.9 % (0.2-1.2); Eosinophils Absolute Auto 1.4 K/mm3 (0-0.3); Eosinophils Percent Auto 15.3 % (0-4.4); Hematocrit 34.2 % (37.0-47.0); Hemoglobin 10.5 g/dL (12.0-15.0); Immature Granulocyte Absolute 0.03 K/mm3 (0.00-0.031); Immature Granulocyte Percent A 0.3 % (0-0.5); Lymphocytes Absolute Auto 2.78 K/mm3 (0.9-3.2); Lymphocytes Percent Auto 31.2 % (18.3-44.2); Mean Corpuscular HGB Conc 30.7 g/dl (32-36); Mean Corpuscular Hemoglobin 28.3 pg (26-34); Mean Corpuscular Volume 92.2 fl (80-100); Mean Platelet Volume 9.7 fl (7.4-10.4); Monocytes Absolute Auto 0.6 K/mm3 (0.1-0.6); Monocytes Percent Auto 6.2 % (2.6-8.5); Neutrophils Absolute Auto 4.1 K/mm3 (1.3-6.7); Neutrophils Percent Auto 46.1 % (45.5-73.1); Platelet Count Result 253 k/mm3 (150-375); Red Blood Count 3.71 M/mm3 (4.2-5.4); Red Cell Distribution Width 16.1 % (11.5-14.5); White Blood Count 8.9 K/mm3 (4.5-10.0)
[2023-10-09 05:48] LABS: Creatine Kinase 40 U/L (30-135)
[2023-10-09 05:50] LABS: Alanine Aminotransferase 15 U/L (6-35); Albumin Level 3.5 g/dL (3.5-5.1); Alkaline Phosphatase 98 U/L (38-126); Anion Gap 11 mmol/L (8-16); Aspartate Amino Transferase 21 U/L (14-36); Bilirubin,Total 0.3 mg/dL (0.2-1.3); Blood Urea Nitrogen 32 mg/dL (7-17); Calcium 9.5 mg/dL (8.4-10.2); Carbon Dioxide 25 mmol/L (22-30); Chloride 100 mmol/L (98-107); Estimated CRCL calculation 23 ml/min; Estimated Glomerular Filt Rate 20; Glucose 126 mg/dL (65-110); Potassium 3.7 mmol/L (3.4-5.0); Sodium 136 mmol/L (137-145)
[2023-10-09 06:39] LABS: Total Protein Urine Random 13 mg/dL; Ur Ttl Prot Creatinine Ratio 0.14 mg/mg (0-0.20)
[2023-10-09 06:42] LABS: Appearance Urine Clear (Clear); Bacteria Urine None Seen /hpf; Bilirubin Urine Negative (Negative); Blood Urine Negative (Negative); Color Urine Yellow (Yellow); Glucose Urine UA Negative (Negative); Ketones Urine Negative (Negative); Leukocyte Esterase Ur 2+ LEU/UL (Negative); Need Manual Microscopic Reviewed; Nitrate Urine Negative (Negative); Non Pathogenic Casts 0-2; Protein Urine Negative (Negative); RBC Urine 21-50 /hpf (0-2); Specific Grav Ur 1.009 (1.001-1.035); Squamous Epithelial Cell Urine None seen /hpf (Few); Urobilinogen Urine 0.2 mg/dL (<2.0)
[2023-10-09 06:44] LABS: Urea Random Urine 348 MG/DL
[2023-10-09 06:47] LABS: Sodium Urine Random 18 meq/L
[2023-10-09 06:50] LABS: Add Urine Microscopic? YES
[2023-10-09 06:53] LABS: Eosinophil Urine Rare % (None Seen); Urine Eos QC 2nd Tech Confirmed
--- NOTE | 2023-10-09 07:14 | ECHO_ITS ---
Patient Info Name: Aleksandra Berman Age: 77 years : 1945 Gender: Female Ht: 65 in Wt: 232 lbs BSA: 2.25 m2 HR: 71 bpm BP: 156 / 61 mmHg Heart Rhythm: Sinus Rhythm Technical Quality: Fair Exam Date: 10/09/2023 10:06 AM Exam Location: Echo Lab Exam Room: [facility] Patient Status: Inpatient Admit Date: 10/07/2023 Staff Ordering Physician: Tahmina Fuchs APRN Hair Stylist: Stacie Cedillo RDCS Attending Provider: Gabino Sanchez MD Referring Physician: Jef SCHERER; Exam Type: CA echo dop color flow w con Study Info Indications - weakness Complete two-dimensional, color flow and Doppler transthoracic echocardiogram is performed with contrast to opacify the left ventricle and to improve the deliniation of the left ventricle endocardial borders. Contrast/Agitated Saline Contrast/Ag. Saline: Definity Amount: 2.00 ml Administered By: Stacie Cedillo [facility] Existing IV Access: Yes IV Access Condition: patent with no signs of infiltration Summary 1. Normal left ventricular size, thickness and systolic function, grade 1 diastolic noncompliance. 2. Very small amount of aortic regurgitation. 3. Enlarged left atrium. Left Ventricle Left ventricular chamber dimension is normal. Left ventricular systolic function is normal, estimated at 60-65%. The left ventricular diastolic function is grade I diastolic dysfunction. Right Ventricle Right ventricular chamber dimension is normal. Left Atria Left atrial chamber dimension is mildly enlarged. Right Atria Right atrial chamber dimension is normal. Aortic Valve The aortic valve is normal. There is mild aortic valve regurgitation. Pulmonic Valve The pulmonic valve is not well visualized. Mitral Valve The mitral valve has normal leaflets. The mitral valve annulus is mildly calcified. Tricuspid Valve The tricuspid valve leaflets are normal. Pericardium/Pleural The pericardium appears normal. Aorta The aortic root size at the sinus of Valsalva is normal. Left Ventricular Outflow Tract Name Value Normal LVOT 2D LVOT Diameter 2.07 cm LVOT Doppler LVOT Peak Gradient 5 mmHg LVOT Mean Gradient 3 mmHg LVOT VTI 24.08 cm LVOT VTI/AV VTI Ratio 0.79 LVOT Stroke Volume 81.00 ml LVOT CO 16.16 l/min LVOT CI 7.19 L/min/m2 Pulmonic Valve Name Value Normal PV Doppler PV Peak Gradient 5 mmHg Mitral Valve Name Value Normal MV Doppler MV Decel [place] 337.14 cm/s2 M
[2023-10-09 08:13] LABS: Glucose Point of Care 123 mg/dl (65-105)
[2023-10-09 09:58] LABS: Glucose Point of Care 188 mg/dl (65-105)
[2023-10-09] MEDS: AMIODARONE HCL 200 MG TABLET PO (10:02)
[2023-10-09] MEDS: APIXABAN 5 MG TABLET PO ×2 (10:02→20:54)
[2023-10-09] MEDS: OPTI-GEN TAB 2 TABLET PO (10:02)
[2023-10-09] MEDS: carvediloL 6.25 MG TABLET PO ×2 (10:02→20:54)
[2023-10-09] MEDS: busPIRone HCL 5 MG TABLET 15 MG PO (10:02)
[2023-10-09] MEDS: PRAMIPEXOLE 0.25 MG TABLET PO ×2 (10:03→18:35)
[2023-10-09] MEDS: FAMOTIDINE 20 MG TABLET PO (10:03)
[2023-10-09] MEDS: VENLAFAXINE HCL XR 75 MG CAP.ER.24H 300 MG PO (10:03)
[2023-10-09] MEDS: ISOSORBIDE DINITRATE 10 MG TABLET PO ×2 (10:03→18:35)
[2023-10-09] MEDS: INSULIN GLARGINE (*BKC) 100 UNITS/ML 36 UNITS SUB-Q (10:04)
[2023-10-09] MEDS: INSULIN ASPART (*BKC) 100 UNITS/ML 12 UNITS SUB-Q ×2 (10:04→12:16)
[2023-10-09] MEDS: PERFLUTREN LIPID MICROSPHERES 1.5 ML VIAL DILUTED TO 10 ML TOTAL VOLUME IV PUSH (10:30)
--- NOTE | 2023-10-09 11:34 | PM.PNNEP ---
Progress Note: A&P Assessment and Plan (1) ALBERTINA (acute kidney injury): Code(s): N17.9 - Acute kidney failure, unspecified Status: Acute Assessment and Plan: suspect related to volume depletion worsened by recent hyperglycemia urine electrolytes prerenal renal ultrasound normal s/p trial of IVFs follow repeat labs and UOP (2) Stage 3b chronic kidney disease: Code(s): N18.32 - Chronic kidney disease, stage 3b Status: Chronic Assessment and Plan: baseline creatinine has been running ~ 1.5 - 1.9mg/dl in the last year however, has been as low as 1.2 - 1.3mg/dl in the past due to her hypertension, diabetes, obstructive sleep apnea, gout, diastolic heart failure, and age-related change.? ? (3) Altered mental status: Qualifiers: Altered mental status type: unspecified Qualified Code(s): R41.82 - Altered mental status, unspecified Code(s): R41.82 - Altered mental status, unspecified Status: Acute Assessment and Plan: appears back o baseline Neurology recommendations noted CT and MRI of brain noted follow mentation (4) Paroxysmal atrial fibrillation: Code(s): I48.0 - Paroxysmal atrial fibrillation Status: Chronic Assessment and Plan: rate control strategy on anticoiagulation (5) Hypertension: Qualifiers: Hypertension type: unspecified Qualified Code(s): I10 - Essential (primary) hypertension Code(s): I10 - Essential (primary) hypertension Status: Chronic Assessment and Plan: reasonable control at this time follow trend of hemodyanmics (6) Type 2 diabetes mellitus with hyperglycemia, with long-term current use of insulin: Code(s): E11.65 - Type 2 diabetes mellitus with hyperglycemia; Z79.4 - long-term (current) use of insulin Status: Chronic Assessment and Plan: follow accu-cheks glycemic control per hospitalists Will continue to follow. Subjective Date/time seen: 10/09/23 11:34 Interval history: Follow-up for acute kidney injury/acute renal failure on chronic kidney disease. Appears to be doing reasonably well; eating and drinking okay; renal function stable but increased urine output noted in the last 24 hours; no apparent distress voiced at the time of my visit. Exam Narrative: General: elderly but WD/WN female in NAD Heart: normal S1 and S2; no rub Lungs: clear to auscultation Abdomen: soft, nontender, nondistended, positive bowel sounds Extremities: no cyanosis or clubbing; chronic edema Skin: chronic venous changes Objective Data Vital Signs Vital Signs: Vital Signs Temp Pulse Resp BP Pulse Ox O2 Del Method 10/09/23 11:25 Room Air 10/09/23 10:02 82 10/09/23 10:00 82 16 123/60 100 10/09/23 02:50 81 98 Autopap 10/08/23 23:20 85 98 Autopap 10/09/23 05:06 96.2 F L 71 20 156/61 H 98 10/08/23 20:40 85 10/08/23 20:00 Room Air 10/08/23 20:26 96.9 F L 85 18 117/52 L 100 10/08/23 20:25 96.9 F L 82 18 140/63 100 10/08/23 20:24 96.9 F L 79 18 125/51 L 98 10/08/23 20:22 96.9 F L 79 18 125/51 L 98 Intake/Output Intake/Output: Intake & Output 10/06/23 10/07/23 10/08/23 10/09/23 23:59 23:59 23:59 23:59 Intake Total 1260 2533 770 Output Total 300 Balance -300 1260 2533 770 Meds/Results Medications: Active Medications Generic Name Dose Route Start Last Admin Trade Name Freq PRN Reason Stop Dose Admin Acetaminophen 650 mg 10/07/23 07:36 10/07/23 08:07 Acetaminophen 325 Mg Tablet PO 650 mg Q4H PRN Administration Mild Pain (1-3) or Fever Amiodarone HCl 200 mg 10/07/23 09:00 10/09/23 10:02 Amiodarone Hcl 200 Mg Tablet PO 200 mg DAILY NICOLE Administration Apixaban 5 mg 10/07/23 09:00 10/09/23 10:02 Apixaban 5 Mg Tablet PO 5 mg Q12HR NICOLE Administration Buspirone HCl 15 mg 10/07/23 09:00
--- NOTE | 2023-10-09 11:34 | P.PNNP_ITS ---
Progress Note: A&P Assessment and Plan (1) ALBERTINA (acute kidney injury): Code(s): N17.9 - Acute kidney failure, unspecified Status: Acute Assessment and Plan: * suspect related to volume depletion worsened by recent hyperglycemia * urine electrolytes prerenal * renal ultrasound normal * s/p trial of IVFs * follow repeat labs and UOP (2) Stage 3b chronic kidney disease: Code(s): N18.32 - Chronic kidney disease, stage 3b Status: Chronic Assessment and Plan: * baseline creatinine has been running ~ 1.5 - 1.9mg/dl in the last year * however, has been as low as 1.2 - 1.3mg/dl in the past * due to her hypertension, diabetes, obstructive sleep apnea, gout, diastolic heart failure, and age-related change.? ? (3) Altered mental status: Qualifiers: Altered mental status type: unspecified Qualified Code(s): R41.82 - Altered mental status, unspecified Code(s): R41.82 - Altered mental status, unspecified Status: Acute Assessment and Plan: * appears back o baseline * Neurology recommendations noted * CT and MRI of brain noted * follow mentation (4) Paroxysmal atrial fibrillation: Code(s): I48.0 - Paroxysmal atrial fibrillation Status: Chronic Assessment and Plan: * rate control strategy * on anticoiagulation (5) Hypertension: Qualifiers: Hypertension type: unspecified Qualified Code(s): I10 - Essential (primary) hypertension Code(s): I10 - Essential (primary) hypertension Status: Chronic Assessment and Plan: * reasonable control at this time * follow trend of hemodyanmics (6) Type 2 diabetes mellitus with hyperglycemia, with long-term current use of insulin: Code(s): E11.65 - Type 2 diabetes mellitus with hyperglycemia; Z79.4 - exterminator termite (current) use of insulin Status: Chronic Assessment and Plan: * follow accu-cheks * glycemic control per hospitalists Will continue to follow. Subjective Date/time seen: 10/09/23 11:34 Interval history: Follow-up for acute kidney injury/acute renal failure on chronic kidney disease. Appears to be doing reasonably well; eating and drinking okay; renal function stable but increased urine output noted in the last 24 hours; no apparent distress voiced at the time of my visit. Exam Narrative: General: elderly but WD/WN female in NAD Heart: normal S1 and S2; no rub Lungs: clear to auscultation Abdomen: soft, nontender, nondistended, positive bowel sounds Extremities: no cyanosis or clubbing; chronic edema Skin: chronic venous changes Objective Data Vital Signs Vital Signs: Vital Signs Temp Pulse Resp BP Pulse Ox O2 Del Method 10/09/23 11:25 Room Air 10/09/23 10:02 82 10/09/23 10:00 82 16 123/60 100 10/09/23 02:50 81 98 Autopap 10/08/23 23:20 85 98 Autopap 10/09/23 05:06 96.2 F L 71 20 156/61 H 98 10/08/23 20:40 85 10/08/23 20:00 Room Air 10/08/23 20:26 96.9 F L 85 18 117/52 L 100 10/08/23 20:25 96.9 F L 82 18 140/63 100 10/08/23 20:24 96.9 F L 79 18 125/51 L 98 10/08/23 20:22 96.9 F L 79 18 125/51 L 98 Intake/Output Intake/Output: Intake & Output
--- NOTE | 2023-10-09 11:40 | PM.IMPN ---
Progress Note: A&P Assessment and Plan (1) Altered mental status: Qualifiers: Altered mental status type: unspecified Qualified Code(s): R41.82 - Altered mental status, unspecified Code(s): R41.82 - Altered mental status, unspecified Status: Acute Assessment and Plan: -initiate fall precautions MRI/brain reveals: No acute infarct, intracranial hemorrhage, or mass lesion. Mild chronic microvascular ischemic change, and mild generalized atrophy. CT of the head reviewed neurology consulted appreciate recommendation and plan -neuro recommends follow up out-pt 10/09/2023: Continue with same plan above (2) Chronic kidney disease: Code(s): N18.9 - Chronic kidney disease, unspecified Status: Acute Assessment and Plan: continue to monitor BUN and creatinine -recheck BMP in the a.m. 10/09/2023 continue with same plan above (3) Paroxysmal atrial fibrillation: Code(s): I48.0 - Paroxysmal atrial fibrillation Status: Acute Assessment and Plan: rate controlled and anticoagulated -continue home medication continue with same plan above (4) Chronic anticoagulation: Code(s): Z79.01 - terminal gauger (current) use of anticoagulants Status: Acute Assessment and Plan: currently on Eliquis 10/09/2023 continue with plan above (5) Diabetic peripheral neuropathy: Code(s): E11.42 - Type 2 diabetes mellitus with diabetic polyneuropathy Status: Acute Assessment and Plan: -pt is a poor historian in regards to her daily insulin management -last A1c 8.8 09/07/2023 -bedside glucose management -continue insulin aspart 12 units t.i.d. -continue insulin glargine 36 units daily on divalproex and gabapentin 10/09/2023 continue with plan above (6) Type 2 diabetes mellitus with hyperglycemia, with long-term current use of insulin: Code(s): E11.65 - Type 2 diabetes mellitus with hyperglycemia; Z79.4 - FPC (current) use of insulin Status: Acute Assessment and Plan: on insulin (7) Stage 3b chronic kidney disease (CKD): Code(s): N18.32 - Chronic kidney disease, stage 3b Status: Acute Assessment and Plan: continue to monitor BUN and creatinine -check daily CMP, CBC (8) Benign hypertension with chronic kidney disease: Code(s): I12.9 - Hypertensive chronic kidney disease with stage 1 through stage 4 chronic kidney disease, or unspecified chronic kidney disease Status: Acute Assessment and Plan: continue home meds (9) CHF (congestive heart failure): Qualifiers: Heart failure chronicity: acute on chronic Heart failure type: diastolic Qualified Code(s): I50.33 - Acute on chronic diastolic (congestive) heart failure Code(s): I50.9 - Heart failure, unspecified Status: Acute Assessment and Plan: patient appears at baseline on physical exam (10) Obstructive sleep apnea on CPAP: Code(s): G47.33 - Obstructive sleep apnea (adult) (pediatric); Z99.89 - Dependence on other enabling machines and devices Status: Chronic Assessment and Plan: noncompliance with CPAP (11) Breast cancer: Code(s): C50.919 - Malignant neoplasm of unspecified site of unspecified female breast Status: Acute Assessment and Plan: status post mastectomy (12) Hypoglycemia: Code(s): E16.2 - Hypoglycemia, unspecified Status: Resolved Assessment and Plan: -pt with a hypoglycemic event -imitate hypoglycemia protocol -continue to monitor glucose (13) Debility: Code(s): R53.81 - Other malaise Status: Acute Assessment and Plan: -patient has been set for short-term nursing facility discharge -plan to discharge patient in the a.m. Plan Continue home medications: VTE Prophylaxis: Apixaban DIET: Heart healthy Anticipated hospital stay: > 2 days Code Status: Full code Subjective Date/ti
[2023-10-09 12:05] LABS: Glucose Point of Care 331 mg/dl (65-105)
--- NOTE | 2023-10-09 12:18 | IVDEFINITY ---
Prior to administration of IV Definity the patient was educated on the risks and benefits of the imaging enhancing agent including potential adverse side effects. The patient verbalized understanding. Allergies were verified. No exclusion criteria were identified and at least one of the following inclusion criteria were met: 1) physician request, 2) patient technically difficult to image (per the [place] [employer] guidelines of two or more segments not discernable within the apical view), or 3) questionable left ventricular function. ?
[2023-10-09] MEDS: NYSTATIN OINTMENT 15 GM TUBE 1 APPLIC TOPICAL ×2 (12:27→18:35)
[2023-10-09 17:36] LABS: Glucose Point of Care 107 mg/dl (65-105)
[2023-10-09 18:36] LABS: Glucose Point of Care 109 mg/dl (65-105)
[2023-10-09 20:54] LABS: Glucose Point of Care 129 mg/dl (65-105)
[2023-10-09] MEDS: DIVALPROEX SODIUM DR 250 MG TABEC 500 MG PO (20:54)
[2023-10-10 00:28] LABS: Sodium Urine Random 18 meq/L
[2023-10-10 05:59] VITALS: BP 146/51; PULSE 73; RESP 18; TEMP 36.8; O2SAT 95
[2023-10-10 06:07] LABS: Basophils Absolute Auto 0.1 K/mm3 (0.0-0.1); Basophils Percent Auto 0.7 % (0.2-1.2); Eosinophils Absolute Auto 0.9 K/mm3 (0-0.3); Eosinophils Percent Auto 13.1 % (0-4.4); Hematocrit 32.2 % (37.0-47.0); Hemoglobin 10.1 g/dL (12.0-15.0); Immature Granulocyte Absolute 0.02 K/mm3 (0.00-0.031); Immature Granulocyte Percent A 0.3 % (0-0.5); Lymphocytes Percent Auto 30.7 % (18.3-44.2); Mean Corpuscular HGB Conc 31.4 g/dl (32-36); Mean Corpuscular Hemoglobin 29.2 pg (26-34); Mean Corpuscular Volume 93.1 fl (80-100); Mean Platelet Volume 9.8 fl (7.4-10.4); Monocytes Absolute Auto 0.5 K/mm3 (0.1-0.6); Monocytes Percent Auto 6.7 % (2.6-8.5); Neutrophils Absolute Auto 3.3 K/mm3 (1.3-6.7); Neutrophils Percent Auto 48.5 % (45.5-73.1); Platelet Count Result 225 k/mm3 (150-375); Red Blood Count 3.46 M/mm3 (4.2-5.4); Red Cell Distribution Width 15.9 % (11.5-14.5); White Blood Count 6.9 K/mm3 (4.5-10.0)
[2023-10-10 06:25] LABS: Alanine Aminotransferase 14 U/L (6-35); Albumin Level 3.3 g/dL (3.5-5.1); Alkaline Phosphatase 115 U/L (38-126); Anion Gap 8 mmol/L (8-16); Aspartate Amino Transferase 25 U/L (14-36); Bilirubin,Total 0.2 mg/dL (0.2-1.3); Blood Urea Nitrogen 34 mg/dL (7-17); Calcium 9.2 mg/dL (8.4-10.2); Carbon Dioxide 24 mmol/L (22-30); Chloride 102 mmol/L (98-107); Estimated CRCL calculation 27 ml/min; Estimated Glomerular Filt Rate 24; Glucose 187 mg/dL (65-110); Potassium 3.8 mmol/L (3.4-5.0); Sodium 134 mmol/L (137-145)
[2023-10-10 08:13] LABS: Glucose Point of Care 164 mg/dl (65-105)
[2023-10-10] MEDS: INSULIN ASPART (*BKC) 100 UNITS/ML 12 UNITS SUB-Q ×2 (08:30→12:40)
[2023-10-10 08:38] VITALS: BP 114/58; PULSE 75; RESP 16; O2SAT 97
[2023-10-10 08:44] VITALS: PULSE 78
[2023-10-10] MEDS: AMIODARONE HCL 200 MG TABLET PO (08:44)
[2023-10-10] MEDS: APIXABAN 5 MG TABLET PO (08:44)
[2023-10-10] MEDS: busPIRone HCL 5 MG TABLET 15 MG PO (08:44)
[2023-10-10] MEDS: ISOSORBIDE DINITRATE 10 MG TABLET PO ×2 (08:45→12:45)
[2023-10-10] MEDS: PRAMIPEXOLE 0.25 MG TABLET PO (08:45)
[2023-10-10] MEDS: FAMOTIDINE 20 MG TABLET PO (08:45)
[2023-10-10] MEDS: carvediloL 6.25 MG TABLET PO (08:45)
[2023-10-10] MEDS: OPTI-GEN TAB 2 TABLET PO (08:45)
[2023-10-10] MEDS: VENLAFAXINE HCL XR 75 MG CAP.ER.24H 300 MG PO (08:45)
[2023-10-10] MEDS: NYSTATIN OINTMENT 15 GM TUBE 1 APPLIC TOPICAL (08:45)
[2023-10-10] MEDS: INSULIN GLARGINE (*BKC) 100 UNITS/ML 36 UNITS SUB-Q (08:49)
--- NOTE | 2023-10-10 09:25 | PM.DS ---
DS: Admitting Diagnosis Discharge Date 10/10/2023 Admitting Diagnosis Altered mental status DS: Discharge Diagnosis Discharge Diagnosis (1) Debility: Code(s): R53.81 - Other malaise Status: Acute Assessment and Plan: -continue rehabilitation at discharge at short-term nursing care facility (2) Hypoglycemia: Code(s): E16.2 - Hypoglycemia, unspecified Status: Resolved Assessment and Plan: Resolved (3) Stage 3b chronic kidney disease: Code(s): N18.32 - Chronic kidney disease, stage 3b Status: Chronic Assessment and Plan: -continue to monitor kidney function (4) Diabetes: Code(s): E11.9 - Type 2 diabetes mellitus without complications Status: Acute Assessment and Plan: Continue home medication (5) ALBERTINA (acute kidney injury): Code(s): N17.9 - Acute kidney failure, unspecified Status: Resolved Assessment and Plan: Likely related to volume depletion worsened by recent hyperglycemia -continue to follow up outpatient with Nephrology (6) Altered mental status: Qualifiers: Altered mental status type: unspecified Qualified Code(s): R41.82 - Altered mental status, unspecified Code(s): R41.82 - Altered mental status, unspecified Status: Resolved Assessment and Plan: Resolved patient back to baseline -patient evaluated by Neurology -recommend outpatient follow-up (7) Paroxysmal atrial fibrillation: Code(s): I48.0 - Paroxysmal atrial fibrillation Status: Chronic Assessment and Plan: - continue home medication eliquis (8) Insulin dependent type 2 diabetes mellitus: Code(s): E11.9 - Type 2 diabetes mellitus without complications; Z79.4 - leather cutter (current) use of insulin Status: Acute Assessment and Plan: -continue home insulin Tresiba 36 units daily -continue insulin lispro 12 units t.i.d. with meals (9) Hypertension: Qualifiers: Hypertension type: unspecified Qualified Code(s): I10 - Essential (primary) hypertension Code(s): I10 - Essential (primary) hypertension Status: Chronic Assessment and Plan: -continue home medication carvedilol Plan -spoke with jayne Smith, who agrees with dispo plan at this time. Patient will be discharged to [facility]-term [facility] for ongoing rehabilitation DS: Summary Hospital Course Reason for hospitalization: 77-year-old female brought in by son the private car for concern of ongoing decline in mental status pain Hospital Course: ?This is a 77-year-old female with past medical history significant for type diabetes mellitus, breast cancer, congestive heart failure, DJD, diabetic peripheral neuropathy, hypertension, obstructive sleep apnea on CPAP, paroxysmal atrial fibrillation, chronic kidney disease,? Chronic venous stasis dermatitis.? Patient was brought to the emergency room for evaluation by her son due to concerns with patient's overall decline in her mental health, cognition, patient has been unable to regulate her blood sugars has had readings of 400 in? home device sugar monitoring, house is in disarray patient noted to be confused at times unable to differentiate remote control from phone.? Patient seems confused at times and ask repetitive questions unable to contribute to history of present illness. Interval Hx: 10/07/2023:?pt seen this am, she denies any overnight events at this time. She reports she lives alone, has had a hx of forgetfulness. Pt would like to be discharged home. Denies any other c/o at this time. MRI brain pending, continue to monitor, pt seems to be back to baseline she is able to provide her HPI and desired plan of care. 10/08/2023: pt seen this a.m, neuro is by the bedside, she denies any overnight events, denies any chest pain, sob, n/v at this time. Plan is to speak with son, for discharge plan. 10/09/2023:?pt seen this am, she denies any overnight events, she states
--- NOTE | 2023-10-10 09:53 | P.PNNP_ITS ---
Progress Note: A&P Assessment and Plan (1) ALBERTINA (acute kidney injury): Code(s): N17.9 - Acute kidney failure, unspecified Status: Acute Assessment and Plan: * suspect related to volume depletion worsened by recent hyperglycemia * urine electrolytes prerenal * renal ultrasound normal * received IV fluids and had an improvement in the creatinine. * Hopefully renal function will continue to improve. She should make an appointment with Dr. Eduardo * Discussed with JYOTSNA Fuchs. The patient is going to be discharged today to a facility to help get her stronger and control her blood sugars better. (2) Stage 3b chronic kidney disease: Code(s): N18.32 - Chronic kidney disease, stage 3b Status: Chronic Assessment and Plan: * baseline creatinine has been running ~ 1.5 - 1.9mg/dl in the last year * however, has been as low as 1.2 - 1.3mg/dl in the past * due to her hypertension, diabetes, obstructive sleep apnea, gout, diastolic heart failure, and age-related change.? ? (3) Altered mental status: Qualifiers: Altered mental status type: unspecified Qualified Code(s): R41.82 - Altered mental status, unspecified Code(s): R41.82 - Altered mental status, unspecified Status: Acute Assessment and Plan: * appears back to baseline * Neurology recommendations noted * CT and MRI of brain noted * Being discharged today (4) Paroxysmal atrial fibrillation: Code(s): I48.0 - Paroxysmal atrial fibrillation Status: Chronic Assessment and Plan: * pulse doing well at 78 * on Eliquis (5) Hypertension: Qualifiers: Hypertension type: unspecified Qualified Code(s): I10 - Essential (primary) hypertension Code(s): I10 - Essential (primary) hypertension Status: Chronic Assessment and Plan: * blood pressure rises and falls. It is high as 170 but as low as 114. * She is on carvedilol alone. * Perhaps with better volume status and better sugar control her blood pressure will smoothen out. (6) Type 2 diabetes mellitus with hyperglycemia, with long-term current use of insulin: Code(s): E11.65 - Type 2 diabetes mellitus with hyperglycemia; Z79.4 - terminal operations supervisor (current) use of insulin Status: Chronic Assessment and Plan: * follow accu-cheks * glycemic control per hospitalists Subjective Date/time seen: 10/10/23 09:53 Interval history: Patient feels okay. Eating well. her dyspnea is chronic and stable. Exam Narrative: General: elderly but WD/WN female in NAD Heart: normal S1 and S2; no rub Or gallop Lungs: clear Abdomen: soft, nontender, nondistended, positive bowel sounds Extremities: chronic edema but this is much better than before per patient Skin: chronic venous changes but no acute rash Objective Data Vital Signs Vital Signs: Vital Signs - 24 hr 10/09/23 10:00 10/09/23 10:02 10/09/23 14:12 Temperature 97.5 F L Pulse Rate 82 82 74 Respiratory Rate 16 17 Blood Pressure 123/60 114/53 L Pulse Oximetry 100 97 Oxygen Delivery 10/09/23 14:17 10/09/23 14:21 10/09/23 15:00 Temperature Pulse Rate 79 82 Respiratory Rate Blood Pressure 103/51 L 90/51 L 112/56 L Pulse Oximetry 99 98 Oxygen Delivery
--- NOTE | 2023-10-10 09:53 | PM.PNNEP ---
Progress Note: A&P Assessment and Plan (1) ALBERTINA (acute kidney injury): Code(s): N17.9 - Acute kidney failure, unspecified Status: Acute Assessment and Plan: suspect related to volume depletion worsened by recent hyperglycemia urine electrolytes prerenal renal ultrasound normal received IV fluids and had an improvement in the creatinine. Hopefully renal function will continue to improve. She should make an appointment with Dr. Eduardo Discussed with JYOTSNA Fuchs. The patient is going to be discharged today to a facility to help get her stronger and control her blood sugars better. (2) Stage 3b chronic kidney disease: Code(s): N18.32 - Chronic kidney disease, stage 3b Status: Chronic Assessment and Plan: baseline creatinine has been running ~ 1.5 - 1.9mg/dl in the last year however, has been as low as 1.2 - 1.3mg/dl in the past due to her hypertension, diabetes, obstructive sleep apnea, gout, diastolic heart failure, and age-related change.? ? (3) Altered mental status: Qualifiers: Altered mental status type: unspecified Qualified Code(s): R41.82 - Altered mental status, unspecified Code(s): R41.82 - Altered mental status, unspecified Status: Acute Assessment and Plan: appears back to baseline Neurology recommendations noted CT and MRI of brain noted Being discharged today (4) Paroxysmal atrial fibrillation: Code(s): I48.0 - Paroxysmal atrial fibrillation Status: Chronic Assessment and Plan: pulse doing well at 78 on Eliquis (5) Hypertension: Qualifiers: Hypertension type: unspecified Qualified Code(s): I10 - Essential (primary) hypertension Code(s): I10 - Essential (primary) hypertension Status: Chronic Assessment and Plan: blood pressure rises and falls. It is high as 170 but as low as 114. She is on carvedilol alone. Perhaps with better volume status and better sugar control her blood pressure will smoothen out. (6) Type 2 diabetes mellitus with hyperglycemia, with long-term current use of insulin: Code(s): E11.65 - Type 2 diabetes mellitus with hyperglycemia; Z79.4 - group home (current) use of insulin Status: Chronic Assessment and Plan: follow accu-cheks glycemic control per hospitalists Subjective Date/time seen: 10/10/23 09:53 Interval history: Patient feels okay. Eating well. her dyspnea is chronic and stable. Exam Narrative: General: elderly but WD/WN female in NAD Heart: normal S1 and S2; no rub Or gallop Lungs: clear Abdomen: soft, nontender, nondistended, positive bowel sounds Extremities: chronic edema but this is much better than before per patient Skin: chronic venous changes but no acute rash Objective Data Vital Signs Vital Signs: Vital Signs - 24 hr 10/09/23 10:00 10/09/23 10:02 10/09/23 14:12 Temperature 97.5 F L Pulse Rate 82 82 74 Respiratory Rate 16 17 Blood Pressure 123/60 114/53 L Pulse Oximetry 100 97 Oxygen Delivery 10/09/23 14:17 10/09/23 14:21 10/09/23 15:00 Temperature Pulse Rate 79 82 Respiratory Rate Blood Pressure 103/51 L 90/51 L 112/56 L Pulse Oximetry 99 98 Oxygen Delivery 10/09/23 18:34 10/09/23 19:36 10/09/23 19:51 Temperature 97.9 F Pulse Rate 73 73 Respiratory Rate 18 18 Blood Pressure 118/58 L 170/66 H Pulse Oximetry 98 98 Oxygen Delivery Room Air 10/09/23 20:19 10/09/23 20:20 10/09/23 20:24 Temperature 97.9 F 97.9 F 98.0 F Pulse Rate 73 84 80 Respiratory Rate 18 18 18 Blood Pressure 170/66 H 164/59 H 140/52 L Pulse Oximetry 98 99 100 Oxygen Delivery 10/10/23 05:59 10/10/23 08:38 10/10/23 08:44 Temperature 98.3 F Pulse Rate 73 75 78 Respiratory Rate 18 16 Blood Pressure 146/51 H 114/58 L Pulse Oximetry 95 97 Oxygen Delivery Intake/Output Intake/Output: Intake & Output
[2023-10-10 12:25] LABS: Glucose Point of Care 140 mg/dl (65-105)
[2023-10-10 12:41] VITALS: BP 142/64; PULSE 78; RESP 16; TEMP 36.3; O2SAT 98
[2023-10-10 13:15] LABS: SARS-CoV-2 RNA PCR Negative (Negative)
[2023-10-11 06:03] LABS: Red Blood Cell Folate 723 ng/mL RBC (>280)
[2023-10-12 19:29] LABS: Osmolality, Urine 236 mOsm/kg (50-1200)
== END 2023-10-10 14:50 | DRG 637 ==
LOC: ANHED 23:13 → ANH3MEDSUR 23:42 → ANH2MED 10-07 00:12
PROVIDERS: Emergency Medicine; Internal Medicine Nephrology; Admitting Provider Internal Medicine; Emergency Provider Physician Assistant; PCP Family Medicine; Visit Provider Nurse Practitioner
DX: E11.65 Type 2 diabetes mellitus with hyperglycemia (principal); I50.33 Acute on chronic diastolic (congestive) heart failure; I13.0 Hypertensive heart and chronic kidney disease with heart failure and stage 1 through stage 4 chronic kidney disease, or unspecified chronic kidney disease; Z68.41 Body mass index [BMI] 40.0-44.9, adult; N17.9 Acute kidney failure, unspecified; R41.82 Altered mental status, unspecified; Z91.148 Patient's other noncompliance with medication regimen for other reason; E11.22 Type 2 diabetes mellitus with diabetic chronic kidney disease; N18.32 Chronic kidney disease, stage 3b; E11.42 Type 2 diabetes mellitus with diabetic polyneuropathy; E11.649 Type 2 diabetes mellitus with hypoglycemia without coma; D64.9 Anemia, unspecified; F41.9 Anxiety disorder, unspecified; H35.30 Unspecified macular degeneration; E78.2 Mixed hyperlipidemia; G47.33 Obstructive sleep apnea (adult) (pediatric); I48.0 Paroxysmal atrial fibrillation; F32.A Depression, unspecified; R53.81 Other malaise; M17.10 Unilateral primary osteoarthritis, unspecified knee; Z85.3 Personal history of malignant neoplasm of breast; Z79.01 Long term (current) use of anticoagulants; Z85.828 Personal history of other malignant neoplasm of skin; Z96.1 Presence of intraocular lens; Z98.42 Cataract extraction status, left eye; Z98.41 Cataract extraction status, right eye; Z90.49 Acquired absence of other specified parts of digestive tract; Z96.641 Presence of right artificial hip joint; E66.9 Obesity, unspecified; Z20.822 Contact with and (suspected) exposure to COVID-19
CPT/HCPCS: 36415; 70450; 70551; 76775; 80053; 81001; 81050; 82550; 82570; 82607; 82747; 82948; 83935; 84156; 84300; 84439; 84443; 84480; 84540; 85025; 85610; 85730; 85999; 87086; 87635; 93005; 97161; 97165; 99285; A9270; C8929; G0378; J1815; J7120; Q9957

== ENCOUNTER 2023-12-17 15:12 | Emergency (ER) | payer MEDICARE, SELFPAY ==
[2023-12-17 15:31] VITALS: BP 159/63; PULSE 68; RESP 18; TEMP 36.4; O2SAT 100
--- NOTE | 2023-12-17 16:38 | PC.NURSE ---
pt lwbs, opting to follow up with pcp
== END 2023-12-17 17:02 | disposition left against medical advice (07) ==
LOC: ANHED 16:50
PROVIDERS: PCP Family Medicine
DX: R33.9 Retention of urine, unspecified (principal)
CPT/HCPCS: 99199

== ENCOUNTER 2024-03-11 15:43 | Emergency (ER) | payer MEDICARE, SELFPAY ==
--- NOTE | 2024-03-11 15:52 | ED.FEMALEGU ---
HPI - Female Genitourinary General Chief complaint: Urogenital-Female Stated complaint: urinary issue,burning Time Seen by Provider: 03/11/24 16:15 Source: patient, RN notes reviewed and old records reviewed Mode of arrival: ambulatory Limitations: no limitations History of Present Illness HPI Narrative: 78-year-old female presents to the [facility] the [facility] with complaints of urinary burning and discomfort with urination for approximately 1 week. States that her son contacted primary care provider, unsure of what was said. Patient denies any fevers Denies abdominal pain or back pain. Has history of UTIs, admitted to the hospital back in September for ALBERTINA Related Data Home Medications Medication Instructions Recorded Confirmed divalproex 500 mg tablet,delayed 500 mg PO HS 03/06/22 03/11/24 release (Depakote) vit C 250 mg-E 90 mg-zinc 40 2 tablet PO DAILY 03/27/23 03/11/24 mg-copper 1 [id number] chew tablet (PreserVision AREDS-2) buspirone 15 mg tablet 15 mg PO DAILY 05/08/23 03/11/24 venlafaxine 150 mg 300 mg PO DAILY 05/08/23 03/11/24 capsule,extended release 24 hr (Effexor XR) evolocumab 140 mg/mL subcutaneous 140 mg subcut Q14D 07/13/23 03/11/24 pen injector (Repatha SureClick) apixaban 5 mg tablet (Eliquis) 5 mg PO Q12H 10/07/23 03/11/24 Allergies Allergy/AdvReac Type Severity Reaction Status Date / Time [id number] Reductase Allergy Intermediate Other Verified 03/11/24 15:54 Inhibitor pseudoephedrine Allergy Unknown Hives Verified 03/11/24 15:54 NSAIDS (Non-Steroidal AdvReac Intermediate Other Verified 03/11/24 15:54 Anti-Inflamma oxycodone AdvReac Intermediate Itching Verified 03/11/24 15:54 atenolol AdvReac Mild Muscle Pain Verified 03/11/24 15:54 exenatide [From Bydureon] AdvReac Mild Diarrhea Verified 03/11/24 15:54 hydrocodone AdvReac Mild Itching Verified 03/11/24 15:54 [From Panlor (hydrocodone-acetamin)] prochlorperazine AdvReac Mild Itching Verified 03/11/24 15:54 [From Compazine] rice AdvReac Mild Heartburn Verified 03/11/24 15:54 Review of Systems Review of Systems: All systems reviewed & are unremarkable except as noted in HPI and below Constitutional: Constitutional: Reports no additional constitutional complaints Eyes: Eyes: Reports no additional eye complaints ENT: Reports system reviewed and no additional complaints, except as documented Cardiovascular: Cardiovascular: Reports no additional cardiovascular complaints, Denies chest pain and Denies dyspnea Respiratory: Respiratory: Reports no additional respiratory complaints, Denies chest congestion, Denies cough and Denies dyspnea Gastrointestinal: Gastrointestinal: Reports no additional gastrointestinal complaints, Denies abdominal pain, Denies nausea and Denies vomiting Genitourinary: Genitourinary: Reports as per HPI Musculoskeletal: Musculoskeletal: Reports no additional musculoskeletal complaints Integumentary/Breasts: Skin/Breast: Reports system reviewed and no additional complaints, except as docu Neurologic: Reports system reviewed and no additional complaints, except as documented Psychiatric: Psychiatric: Reports no additional psychiatric complaints Allergic/Immunologic: Allergic/Immunologic: Reports no additional allergic/immunologic complaints COUNT INCLUDES THE [facility] Past Medical History Medical History Anemia Anxiety Ataxia Breast cancer CHF (congestive heart failure) Echocardiogram 05/2022: Normal left ventricular systolic function EF 65-70%, mildly increased left ventricular wall thickness, diastolic dysfunction grade 2, moderately elevated E/E 20, increased global longitudinal strain and-18%, mild mitral valve regurgitation, mild tricuspid regurgitation, moderate pulmonary hypertension with RVSP of [address] Ann Chronic anticoagulation Chronic hip pain after total replacement of hip joint Degeneration of lumbar or lumbosacra
[2024-03-11 16:15] VITALS: BP 143/54; PULSE 82; RESP 20; TEMP 36.5; O2SAT 99
[2024-03-11 16:43] LABS: Glucose Point of Care 154 mg/dl (65-105)
== END 2024-03-11 16:47 | disposition home or self-care (01) ==
PROVIDERS: Emergency Provider Nurse Practitioner; PCP Family Medicine
DX: N39.0 Urinary tract infection, site not specified (principal); B96.4 Proteus (mirabilis) (morganii) as the cause of diseases classified elsewhere; I13.0 Hypertensive heart and chronic kidney disease with heart failure and stage 1 through stage 4 chronic kidney disease, or unspecified chronic kidney disease; E11.22 Type 2 diabetes mellitus with diabetic chronic kidney disease; N18.32 Chronic kidney disease, stage 3b; I50.9 Heart failure, unspecified; F41.9 Anxiety disorder, unspecified; F32.A Depression, unspecified; E11.42 Type 2 diabetes mellitus with diabetic polyneuropathy; H35.30 Unspecified macular degeneration; E78.2 Mixed hyperlipidemia; G47.33 Obstructive sleep apnea (adult) (pediatric); I48.0 Paroxysmal atrial fibrillation; Z85.828 Personal history of other malignant neoplasm of skin; Z96.643 Presence of artificial hip joint, bilateral; Z95.5 Presence of coronary angioplasty implant and graft; Z85.3 Personal history of malignant neoplasm of breast; Z90.11 Acquired absence of right breast and nipple; Z96.1 Presence of intraocular lens; Z98.42 Cataract extraction status, left eye; Z98.41 Cataract extraction status, right eye
CPT/HCPCS: 81003; 82948; 87077; 87086; 87088; 87186; 99213; G0463

== ENCOUNTER 2024-04-04 12:07 | Inpatient (IN) | payer MEDICARE, SELFPAY ==
[2024-04-04] VITALS (9 sets, daily range): BP systolic 141–164; BP diastolic 60–72; PULSE 67–92; RESP 12–20; TEMP 36.4–36.6; O2SAT 92–100; BMI 43.2
--- NOTE | ~2024-04-04 | XR_ITS ---
EXAMINATION: XR ankle LT 2V DATE: 04/06/2024 13:10 INDICATION: Left ankle pain. TECHNIQUE: 2 views of left ankle were obtained. COMPARISON: None. FINDINGS: Bone alignment is normal. No fracture. There is moderate midfoot osteoarthritis. There are enthesophytes at the posterior and plantar aspects of calcaneal tuberosity. IMPRESSION: 1. Moderate midfoot osteoarthritis. Reviewed, dictated and finalized at location A.
--- NOTE | ~2024-04-04 | XR_ITS ---
Clinical Indication: Shortness of breath PA and lateral views of the chest: Comparison: 09/07/2023 Findings: The lungs are clear, without evidence of focal consolidation or pleural effusion. Cardiome diastinal silhouette is within normal limits. Bones and soft tissues are unremarkable. Impression: Normal chest. Reviewed, dictated and finalized at location . Impression: Normal chest.
--- NOTE | ~2024-04-04 | CT_ITS ---
EXAMINATION: CT brain wo con DATE: 04/04/2024 13:14 INDICATION: Weakness. Fall. TECHNIQUE: Computed tomography (CT) of the head was performed without intravenous contrast. The mA wa s adjusted according to patient size. Iterative reconstruction technique was employed. The dose-lengt h product was 605.33 mGy-cm. COMPARISON: Head CT 10/06/2023, brain MRI 10/07/2023 FINDINGS: There is no intracranial hemorrhage, acute infarction, or abnormal intracranial mass lesion . There are scattered areas of low attenuation in the cerebral white matter, which is within normal l imits for the patient's age. The ventricles are normal in size. There are likely changes of ocular le ns replacement surgeries. There is mild mucosal thickening in the paranasal sinuses. The mastoid air cells are normal. IMPRESSION: 1. Normal aging brain. Reviewed, dictated and finalized at location A. IMPRESSION: 1. Normal aging brain.
--- NOTE | 2024-04-04 12:43 | ED.FALL ---
HPI - Fall General Chief Complaint: Fall Stated Complaint: fall History of Present Illness HPI Narrative: 78-year-old female presents to the emergency department for evaluation for multiple falls over the past few days. Patient states while she was walking to the bathroom today her legs gave out causing her to slide to the ground. Patient states she does suspect that she had her head but denies any pain or injury. Patient does live on her own. Son states the patient has had more difficulty caring for herself and has had frequent urinary tract infections and difficulty controlling her blood sugars. Related Data Home Medications Medication Instructions Recorded Confirmed divalproex 500 mg tablet,delayed 500 mg PO HS 03/06/22 04/04/24 release (Depakote) vit C 250 mg-E 90 mg-zinc 40 1 tablet PO Q12H 03/27/23 04/04/24 mg-copper 1 [id number]-[id number] chew tablet (PreserVision AREDS-2) evolocumab 140 mg/mL subcutaneous 140 mg subcut Q14D 07/13/23 04/04/24 pen injector (Narda Bernard) apixaban 5 mg tablet (Eliquis) 5 mg PO Q12H 10/07/23 04/04/24 allopurinol 100 mg tablet 100 mg PO HS 04/04/24 04/04/24 (Zyloprim) amiodarone 200 mg tablet 200 mg PO HS 04/04/24 04/04/24 bumetanide 2 mg tablet 2 mg PO Q12H 04/04/24 04/04/24 bupropion HCl 150 mg 24 hr tablet, 150 mg PO HS 04/04/24 04/04/24 extended release (Wellbutrin XL) buspirone 15 mg tablet 15 mg PO HS 04/04/24 04/04/24 calcium carbonate 600 mg-vitamin 1 tablet PO DAILY 04/04/24 04/04/24 D3 5 mcg (200 unit) tablet carvedilol 6.25 mg tablet 6.25 mg PO Q12H 04/04/24 04/04/24 cholecalciferol (vitamin D3) 125 125 mcg PO DAILY 04/04/24 04/04/24 mcg (5,000 unit) tablet (Vitamin D3) famotidine 20 mg tablet 20 mg PO HS 04/04/24 04/04/24 gabapentin 100 mg capsule 100 mg PO Q12H 04/04/24 04/04/24 (Neurontin) insulin degludec 200 unit/mL (3 45 unit subcut 1200 04/04/24 04/04/24 mL) subcutaneous pen (Tresiba FlexTouch U-200 insulin) isosorbide dinitrate 10 mg tablet 10 mg PO Q12H 04/04/24 04/04/24 levothyroxine 75 mcg tablet 75 mcg PO 0630 04/04/24 04/04/24 (Euthyrox) linagliptin 5 mg tablet (Tradjenta) 5 mg PO HS 04/04/24 04/04/24 memantine 10 mg tablet 10 mg PO Q12H 04/04/24 04/04/24 nystatin 100,000 unit/gram topical 1 applic topical BID PRN Rash 04/04/24 04/04/24 ointment pramipexole 0.25 mg tablet 0.5 mg PO HS 04/04/24 04/04/24 trospium 20 mg tablet 20 mg PO Q12H 04/04/24 04/04/24 venlafaxine 150 mg 150 mg PO Q12H 04/04/24 04/04/24 capsule,extended release 24 hr (Effexor XR) vitamin B complex 1 tablet PO DAILY 04/04/24 04/04/24 Allergies Allergy/AdvReac Type Severity Reaction Status Date / Time [id number] Reductase Allergy Intermediate Other Verified 04/04/24 14:42 Inhibitor pseudoephedrine Allergy Unknown Hives Verified 04/04/24 14:42 NSAIDS (Non-Steroidal AdvReac Intermediate Other Verified 04/04/24 14:42 Anti-Inflamma oxycodone AdvReac Intermediate Itching Verified 04/04/24 14:42 atenolol AdvReac Mild Muscle Pain Verified 04/04/24 14:42 exenatide [From Bydureon] AdvReac Mild Diarrhea Verified 04/04/24 14:42 hydrocodone AdvReac Mild Itching Verified 04/04/24 14:42 [From Panlor (hydrocodone-acetamin)] prochlorperazine AdvReac Mild Itching Verified 04/04/24 14:42 [From Compazine] rice AdvReac Mild Heartburn Verified 04/04/24 14:42 Review of Systems Review of Systems: All systems reviewed & are unremarkable except as noted in HPI and below [facility] Past Medical History Medical History Anemia Anxiety Ataxia Breast cancer CHF (congestive heart failure) Echocardiogram 05/2022: Normal left ventricular systolic function EF 65-70%, mildly increased left ventricular wall thickness, diastolic dysfunction grade 2, moderately elevated E/E 20, increased global longitudinal strain and-18%, mild mitral valve regurgitation, mild tricuspid regurgitation, moderate pulmona
[2024-04-04 13:08] LABS: Basophils Absolute Auto 0.1 K/mm3 (0.0-0.1); Basophils Percent Auto 0.7 % (0.2-1.2); Eosinophils Absolute Auto 0.3 K/mm3 (0-0.3); Eosinophils Percent Auto 3.4 % (0-4.4); Hematocrit 35.2 % (37.0-47.0); Immature Granulocyte Absolute 0.02 K/mm3 (0.00-0.031); Immature Granulocyte Percent A 0.3 % (0-0.5); Lymphocytes Absolute Auto 1.95 K/mm3 (0.9-3.2); Lymphocytes Percent Auto 25.7 % (18.3-44.2); Mean Corpuscular HGB Conc 31.3 g/dl (32-36); Mean Corpuscular Hemoglobin 30.1 pg (26-34); Mean Corpuscular Volume 96.2 fl (80-100); Monocytes Absolute Auto 0.7 K/mm3 (0.1-0.6); Monocytes Percent Auto 8.6 % (2.6-8.5); Neutrophils Absolute Auto 4.7 K/mm3 (1.3-6.7); Neutrophils Percent Auto 61.3 % (45.5-73.1); Platelet Count Result 224 k/mm3 (150-375); Red Blood Count 3.66 M/mm3 (4.2-5.4); Red Cell Distribution Width 16.2 % (11.5-14.5); White Blood Count 7.6 K/mm3 (4.5-10.0)
[2024-04-04 13:12] LABS: Appearance Urine Cloudy (Clear); Bacteria Urine 4+ /hpf; Bilirubin Urine Negative (Negative); Blood Urine Non-Hemolyzed Trace (Negative); Color Urine Yellow (Yellow); Glucose Urine UA Negative (Negative); Ketones Urine Negative (Negative); Leukocyte Esterase Ur 3+ LEU/UL (Negative); Nitrate Urine Positive (Negative); Non Pathogenic Casts 0-2; Protein Urine Trace mg/dL (Negative); RBC Urine 0-2 /hpf (0-2); Specific Grav Ur 1.012 (1.001-1.035); Squamous Epithelial Cell Urine None Seen /hpf (Few); Urobilinogen Urine 0.2 mg/dL (<2.0); WBC Urine >100 /hpf (0-3); pH Urine 5.5 (5.0-9.0)
[2024-04-04 13:18] LABS: Alanine Aminotransferase 27 U/L (6-35); Albumin Level 4.2 g/dL (3.5-5.1); Alkaline Phosphatase 93 U/L (38-126); Anion Gap 7 mmol/L (4-12); Aspartate Amino Transferase 29 U/L (14-36); Bilirubin,Total 0.3 mg/dL (0.2-1.3); Blood Urea Nitrogen 63 mg/dL (7-17); Calcium 9.3 mg/dL (8.4-10.2); Carbon Dioxide 37 mmol/L (22-30); Chloride 92 mmol/L (98-107); Estimated CRCL calculation 19 ml/min; Estimated Glomerular Filt Rate 16; Glucose 179 mg/dL (65-110); Potassium 4.5 mmol/L (3.4-5.0); Sodium 136 mmol/L (137-145)
[2024-04-04 13:21] LABS: INR 1.2; Prothrombin Time 15.5 Seconds (11.1-14.7)
[2024-04-04 13:54] LABS: Add Urine Microscopic? YES
[2024-04-04] MEDS: SODIUM CHLORIDE 0.9% IV 1,000 ML 999 ML IV CONT (13:56)
[2024-04-04 14:07] LABS: Influenza A QL RT-PCR Negative (Negative); Influenza B QL RT-PCR Negative (Negative); RSV RNA, RT-PCR Negative (Negative); SARS-CoV-2 RNA PCR Negative (Negative)
--- NOTE | 2024-04-04 14:30 | PM.IMHP ---
H&P: HPI History of Present Illness Date/Time: 04/04/24 14:00 Chief Complaint: Fall, weakness. Narrative: This is a 78-year-old female with coronary artery disease and history of stents, paroxysmal atrial fibrillation on anticoagulation, diastolic congestive heart failure, pulmonary hypertension, obstructive sleep apnea, hypertension, hyperlipidemia, chronic kidney disease, type 2 diabetes mellitus, memory impairment, and other comorbidities who presented to the emergency department via EMS from home for evaluation of weakness and fall. The patient provides the following history and her son Luis provides additional information with the patient's permission. The patient lives in her own home but has a community service aide that visits and her son seems to be very involved in her care. The patient ambulates with a walker and she has had a history of falls for which she tends to ?just get weak and I slide down to the floor.? A similar episode happened today and she had to call her son for help. He has noticed that the patient has been increasingly weak for the last 7 days or so and he decided that she should come in for evaluation. The patient herself has no real complaints aside from generalized weakness and mild dysuria with incontinence though that seems to be an ongoing problem. She denies head trauma and loss of consciousness or injuries from the fall. She also denies fever, chills, sweats, nausea, vomiting, and diarrhea. She reports that she has been eating and drinking as per usual and she denies difficulties emptying her bladder. In the ED: She was afebrile on arrival with stable vital signs. Labs were significant for WBC count of 7.6, hemoglobin 11.0, sodium 136, chloride 92, carbon dioxide 37, BUN 63, creatinine 2.60, glucose 179. Urine is positive for nitrates, leukocyte esterase, bacteria, and greater than 100 WBC. She tested negative for influenza, RSV, and COVID. Brain CT showed normal aging brain. She was given a L of normal saline and ceftriaxone 1 g and she is being admitted in this setting for acute on chronic kidney injury and presumed urinary tract infection. Review of Systems Review of Systems: 12 systems were reviewed and are negative except for as per HPI. [facility] Past Medical History Medical History (Updated 04/04/24 @ 19:20 by Tara Christianson PA-C) Anemia Anxiety Ataxia Breast cancer Chronic anticoagulation Degeneration of lumbar or lumbosacral intervertebral disc Depression Diabetes mellitus type 2 in obese (~1989) A1c 10 on July 21, 2022 Diabetic peripheral neuropathy Diastolic heart failure Echocardiogram 05/2022: Normal left ventricular systolic function EF 65-70%, mildly increased left ventricular wall thickness, diastolic dysfunction grade 2, moderately elevated E/E 20, increased global longitudinal strain and-18%, mild mitral valve regurgitation, mild tricuspid regurgitation, moderate pulmonary hypertension with RVSP of [address] Ann History of stress test Hypertension Hypothyroidism Knee osteoarthritis Macular degeneration Minimal cognitive impairment Mixed hyperlipidemia Normal esophagogastroduodenoscopy (EGD) Obstructive sleep apnea on CPAP Paroxysmal atrial fibrillation Restless leg syndrome Skin cancer Stage 3b chronic kidney disease (CKD) Dr. Eduardo Venous stasis dermatitis Surgical History Surgical History H/O cardiac catheterization H/O endoscopy H/O heart artery stent History of cholecystectomy History of reconstruction of right breast History of right hip replacement (~2017) History of right mastectomy Status post cataract extraction of both eyes with insertion of intraocular lens Family History Family History Father Hypertension COPD (chronic obstructive pulmonary disease) Heart disease Diabetes mellitus Mother Lung cancer De
--- NOTE | 2024-04-04 14:40 | ADMGEN ---
This patient, Aleksandra Berman, was admitted to [address] [facility] Surg Room 306-01. Patient/family oriented to hospital policies and general routines including ID bracelet, bed and alarms, visiting hours, pain management, procedures, bathroom and other care routines, personal items, smoking policy, room service/diet, and visiting hours. Information on how to activate the Rapid Response Team has been discussed. Patient/Family are encouraged to report perceived risks to care and to ask questions if they do not understand what they are told or what they should do.
[2024-04-04 16:02] LABS: Glucose Point of Care 144 mg/dl (65-105)
[2024-04-04 18:08] LABS: Glucose Point of Care 156 mg/dl (65-105)
[2024-04-04 20:36] LABS: Creatine Kinase 42 U/L (30-135)
[2024-04-04 20:49] LABS: NT Pro B Type Natriuretic Pept 570 pg/mL (19.9-100)
[2024-04-04 20:49] LABS: Glucose Point of Care 277 mg/dl (65-105)
[2024-04-04] MEDS: busPIRone HCL 5 MG TABLET 15 MG PO (21:11)
[2024-04-04] MEDS: SITagliptin PHOSPHATE 100 MG TABLET PO (21:12)
[2024-04-04] MEDS: ISOSORBIDE DINITRATE 10 MG TABLET PO (21:12)
[2024-04-04] MEDS: GABAPENTIN 100 MG CAPSULE PO (21:12)
[2024-04-04] MEDS: OPTI-GEN TAB 1 TABLET PO (21:12)
[2024-04-04] MEDS: VENLAFAXINE HCL XR 75 MG CAP.ER.24H 150 MG PO (21:12)
[2024-04-04] MEDS: DIVALPROEX SODIUM DR 250 MG TABEC 500 MG PO (21:12)
[2024-04-04] MEDS: buPROPion HCL XL (24 HR) 150 MG TABCR PO (21:12)
[2024-04-04] MEDS: allopurinoL 100 MG TABLET PO (21:12)
[2024-04-04] MEDS: AMIODARONE HCL 200 MG TABLET PO (21:13)
[2024-04-04] MEDS: MEMANTINE 10 MG TABLET PO (21:13)
[2024-04-04] MEDS: FAMOTIDINE 20 MG TABLET PO (21:13)
[2024-04-04] MEDS: carvediloL 6.25 MG TABLET PO (21:13)
[2024-04-04] MEDS: APIXABAN 5 MG TABLET PO (21:13)
[2024-04-04] MEDS: PRAMIPEXOLE 0.5 MG TABLET PO (21:13)
[2024-04-04] MEDS: INSULIN ASPART (*BKC) 100 UNITS/ML SUB-Q (21:24)
[2024-04-05] VITALS (10 sets, daily range): BP systolic 104–135; BP diastolic 51–107; PULSE 72–96; RESP 14–20; TEMP 36–37.1; O2SAT 92–100
[2024-04-05] MEDS: ACETAMINOPHEN 325 MG TABLET 650 MG PO ×2 (04:58→13:06)
[2024-04-05] MEDS: LEVOTHYROXINE SODIUM 75 MCG TABLET PO (04:59)
[2024-04-05 06:29] LABS: Hematocrit 38.4 % (37.0-47.0); Hemoglobin 11.8 g/dL (12.0-15.0); Mean Corpuscular HGB Conc 30.7 g/dl (32-36); Mean Corpuscular Hemoglobin 30.1 pg (26-34); Mean Platelet Volume 9.9 fl (7.4-10.4); Platelet Count Result 202 k/mm3 (150-375); Red Blood Count 3.92 M/mm3 (4.2-5.4); Red Cell Distribution Width 16.1 % (11.5-14.5); White Blood Count 8.3 K/mm3 (4.5-10.0)
[2024-04-05 07:05] LABS: Anion Gap 9 mmol/L (4-12); Blood Urea Nitrogen 49 mg/dL (7-17); Calcium 9.5 mg/dL (8.4-10.2); Carbon Dioxide 31 mmol/L (22-30); Chloride 97 mmol/L (98-107); Estimated CRCL calculation 24 ml/min; Estimated Glomerular Filt Rate 21; Glucose 142 mg/dL (65-110); Potassium 4.3 mmol/L (3.4-5.0); Sodium 137 mmol/L (137-145)
[2024-04-05 07:34] LABS: Glucose Point of Care 114 mg/dl (65-105)
--- NOTE | 2024-04-05 07:38 | PM.IMPN ---
Progress Note: A&P Assessment and Plan (1) Acute on chronic kidney failure: Code(s): N17.9 - Acute kidney failure, unspecified; N18.9 - Chronic kidney disease, unspecified Status: Acute Assessment and Plan: BUN/Cr 63/2.9 on admission. Baseline creatinine has 1.5-1.9. Suspected this is related to volume depletion. Started on IV fluids. - BUN/Cr 49/2.3 on am labs - IV fluids discontinued. Patient is eating/drinking. - Monitor vital signs, I/O - Monitor CBC and chemistries with daily labs (2) Urinary tract infection: Code(s): N39.0 - Urinary tract infection, site not specified Status: Acute Assessment and Plan: - UA: cloudy appearance with trace blood, positive nitrates, 3+ leukocytes, >100 WBC, 4+ bacteria - UC obtained on 04/04: pending - previous micro reviewed 03/11/24: Proteus mirabilis with resistance to fluoroquinolones - started Rocephin 1 g daily on 04/04 (3) Frequent falls: Code(s): R29.6 - Repeated falls Status: Acute Assessment and Plan: Patient lives alone and uses a walker to ambulate. She reports frequent falls (3 this month) where she becomes weak and slides to the floor. She denies loss of consciousness or injuries from the fall. - Head CT: No intracranial hemorrhage, acute infarction, or mass lesion. Normal aging brain. - May need to discuss with patients drapery sewer hand about discontinuing her anticoagulation given frequent falls. Will see how she does with PT/OT first. - PT/OT (4) Chronic anemia: Code(s): D64.9 - Anemia, unspecified Status: Acute Assessment and Plan: Chronic, appears at baseline. No signs of active bleeding. - Iron and TIBC panel ordered - B12 and folate ordered - Monitor (5) Diastolic heart failure: Code(s): I50.30 - Unspecified diastolic (congestive) heart failure Status: Acute Assessment and Plan: Chronic, does not appear to be in acute exacerbation. - Echo 10/09/23: LVEF 60-65% with grade I diastolic dysfunction - Continue home medications - Monitor (6) Type 2 diabetes mellitus: Code(s): E11.9 - Type 2 diabetes mellitus without complications Status: Acute Assessment and Plan: - hypoglycemia protocol - POC blood glucose ACHS - home medication - Linagliptin 5 mg daily, Lispro 12 units TID, Tresiba 45 units daily - correct regimen ordered - mod sliding scale, Januvia 100 mg daily, lispro 12 units TID, and lantus 45 units daily - A1C 8.8 on 09/07/23 (7) Paroxysmal atrial fibrillation: Code(s): I48.0 - Paroxysmal atrial fibrillation Status: Chronic Assessment and Plan: Currently in sinus rhythm. - Current home medication: amiodarone 200 mg daily and eliquis 5 mg BID - May need to discuss discontinuing anticoagulation given frequent falls - Monitor (8) Hypothyroidism: Code(s): E03.9 - Hypothyroidism, unspecified Status: Acute Assessment and Plan: Chronic. - TSH 27.600 - T4 0.60 - Levothyroxine increased to 87.5 mcg daily (9) Restless leg syndrome: Code(s): G25.81 - Restless legs syndrome Status: Acute Assessment and Plan: Chronic, well controlled on home medication. - Pramipexole 0.5 mg daily Time Spent With Patient Time with patient: 25 - 35 minutes Subjective Date/time seen: 04/05/24 07:38 Interval history: 78-year-old female with coronary artery disease and history of stents, paroxysmal atrial fibrillation on anticoagulation, diastolic congestive heart failure, pulmonary hypertension, obstructive sleep apnea, hypertension, hyperlipidemia, chronic kidney disease, type 2 diabetes mellitus, memory impairment, and other comorbidities who presented to the emergency department via EMS from home for evaluation of weakness and fall. Patient is pleasant lying comfortably in bed. She continues to endorse dysuria, burning sensation and trickling with urination. She remains on Rocephin with urine cultur
[2024-04-05] MEDS: CALCIUM/VITAMIN D 500 MG/5 MCG (200 I.U.) TABLET PO (09:27)
[2024-04-05] MEDS: APIXABAN 5 MG TABLET PO ×2 (09:27→20:38)
[2024-04-05] MEDS: carvediloL 6.25 MG TABLET PO ×2 (09:28→20:45)
[2024-04-05] MEDS: VITAMIN B COMPLEX CAPSULE 1 CAP PO (09:28)
[2024-04-05] MEDS: CHOLECALCIFEROL 5,000 UNITS TABLET 5000 UNITS PO (09:28)
[2024-04-05] MEDS: GABAPENTIN 100 MG CAPSULE PO ×2 (09:28→20:45)
[2024-04-05] MEDS: VENLAFAXINE HCL XR 75 MG CAP.ER.24H 150 MG PO ×2 (09:28→20:38)
[2024-04-05] MEDS: MEMANTINE 10 MG TABLET PO ×2 (09:28→20:45)
[2024-04-05] MEDS: OPTI-GEN TAB 1 TABLET PO ×2 (09:28→20:38)
[2024-04-05] MEDS: ISOSORBIDE DINITRATE 10 MG TABLET PO ×2 (09:29→20:45)
[2024-04-05 11:30] LABS: Glucose Point of Care 93 mg/dl (65-105)
--- NOTE | 2024-04-05 12:46 | PC.NURSE ---
Blood sugars this AM 114 and patient now 93 at lunchtime with no administration of Insulin today 04/05/24. Holding scheduled noon dose of 45units lantus and 12 units novolog. Will notify provider
[2024-04-05 16:29] LABS: Glucose Point of Care 252 mg/dl (65-105)
[2024-04-05] MEDS: busPIRone HCL 5 MG TABLET 15 MG PO (20:38)
[2024-04-05] MEDS: allopurinoL 100 MG TABLET PO (20:39)
[2024-04-05] MEDS: AMIODARONE HCL 200 MG TABLET PO (20:39)
[2024-04-05] MEDS: SITagliptin PHOSPHATE 100 MG TABLET PO (20:39)
[2024-04-05] MEDS: buPROPion HCL XL (24 HR) 150 MG TABCR PO (20:45)
[2024-04-05] MEDS: DIVALPROEX SODIUM DR 250 MG TABEC 500 MG PO (20:45)
[2024-04-05] MEDS: FAMOTIDINE 20 MG TABLET PO (20:45)
[2024-04-05] MEDS: PRAMIPEXOLE 0.5 MG TABLET PO (20:45)
[2024-04-05] MEDS: INSULIN ASPART (*BKC) 100 UNITS/ML SUB-Q (20:50)
[2024-04-05 21:16] LABS: Glucose Point of Care 204 mg/dl (65-105)
[2024-04-06] VITALS (7 sets, daily range): BP systolic 127–150; BP diastolic 51–57; PULSE 67–76; RESP 13–20; TEMP 36–36.7; O2SAT 98–100; BMI 41.9
[2024-04-06] MEDS: LEVOTHYROXINE SODIUM 12.5 MCG TABLET PO (05:37)
[2024-04-06] MEDS: LEVOTHYROXINE SODIUM 75 MCG TABLET PO (05:38)
[2024-04-06 06:41] LABS: Basophils Percent Auto 0.4 % (0.2-1.2); Eosinophils Absolute Auto 0.3 K/mm3 (0-0.3); Eosinophils Percent Auto 4.7 % (0-4.4); Hematocrit 31.5 % (37.0-47.0); Hemoglobin 9.7 g/dL (12.0-15.0); Immature Granulocyte Absolute 0.02 K/mm3 (0.00-0.031); Immature Granulocyte Percent A 0.3 % (0-0.5); Lymphocytes Absolute Auto 1.74 K/mm3 (0.9-3.2); Lymphocytes Percent Auto 23.8 % (18.3-44.2); Mean Corpuscular HGB Conc 30.8 g/dl (32-36); Mean Corpuscular Volume 97.5 fl (80-100); Monocytes Absolute Auto 0.9 K/mm3 (0.1-0.6); Monocytes Percent Auto 11.6 % (2.6-8.5); Neutrophils Absolute Auto 4.3 K/mm3 (1.3-6.7); Neutrophils Percent Auto 59.2 % (45.5-73.1); Platelet Count Result 191 k/mm3 (150-375); Red Blood Count 3.23 M/mm3 (4.2-5.4); Red Cell Distribution Width 16.2 % (11.5-14.5); White Blood Count 7.3 K/mm3 (4.5-10.0)
[2024-04-06 06:52] LABS: Alanine Aminotransferase 24 U/L (6-35); Albumin Level 3.5 g/dL (3.5-5.1); Alkaline Phosphatase 83 U/L (38-126); Anion Gap 6 mmol/L (4-12); Aspartate Amino Transferase 23 U/L (14-36); Bilirubin,Total 0.3 mg/dL (0.2-1.3); Blood Urea Nitrogen 49 mg/dL (7-17); Calcium 8.9 mg/dL (8.4-10.2); Carbon Dioxide 35 mmol/L (22-30); Chloride 95 mmol/L (98-107); Estimated CRCL calculation 23 ml/min; Estimated Glomerular Filt Rate 20; Glucose 67 mg/dL (65-110); Potassium 4.1 mmol/L (3.4-5.0); Sodium 136 mmol/L (137-145)
[2024-04-06 07:15] LABS: Iron 19 ug/dL (37-170)
[2024-04-06 07:24] LABS: Percent Iron Saturation 7 % (20-50)
[2024-04-06 07:31] LABS: Glucose Point of Care 68 mg/dl (65-105)
[2024-04-06 07:53] LABS: Glucose Point of Care 92 mg/dl (65-105)
[2024-04-06 07:58] LABS: Folic Acid 12.4 ng/mL (2.76->20); Vitamin B12 > 1000.0 pg/mL (239-931)
[2024-04-06] MEDS: MEMANTINE 10 MG TABLET PO ×2 (08:51→20:17)
[2024-04-06] MEDS: APIXABAN 5 MG TABLET PO ×2 (08:51→20:19)
[2024-04-06] MEDS: CALCIUM/VITAMIN D 500 MG/5 MCG (200 I.U.) TABLET PO (08:51)
[2024-04-06] MEDS: VITAMIN B COMPLEX CAPSULE 1 CAP PO (08:52)
[2024-04-06] MEDS: carvediloL 6.25 MG TABLET PO ×2 (08:52→20:16)
[2024-04-06] MEDS: ISOSORBIDE DINITRATE 10 MG TABLET PO ×2 (08:52→20:17)
[2024-04-06] MEDS: GABAPENTIN 100 MG CAPSULE PO (08:52)
[2024-04-06] MEDS: VENLAFAXINE HCL XR 75 MG CAP.ER.24H 150 MG PO ×2 (08:52→20:16)
[2024-04-06] MEDS: OPTI-GEN TAB 1 TABLET PO ×2 (08:52→20:17)
[2024-04-06] MEDS: CHOLECALCIFEROL 5,000 UNITS TABLET 5000 UNITS PO (08:52)
--- NOTE | 2024-04-06 09:41 | PM.IMPN ---
Progress Note: A&P Assessment and Plan (1) Acute on chronic kidney failure: Code(s): N17.9 - Acute kidney failure, unspecified; N18.9 - Chronic kidney disease, unspecified Status: Acute Assessment and Plan: Likely ALBERTINA on CKD. Creatinine 2.9. Baseline creatinine has been uptrending over the years 1.3-1.7 in 2021, 1.3-2.23 in 2022, 1.5-2.4 earlier this year. Creatinine 2.9 up from prior so likely ALBERTINA with progression of CKD well. - Has basilar crackles - IV fluids discontinued. Patient is eating/drinking. - Monitor vital signs, I/O - Monitor CBC and chemistries with daily labs (2) Urinary tract infection: Code(s): N39.0 - Urinary tract infection, site not specified Status: Acute Assessment and Plan: - UA: cloudy appearance with trace blood, positive nitrates, 3+ leukocytes, >100 WBC, 4+ bacteria - UC obtained on 04/04: pending - previous micro reviewed 03/11/24: Proteus mirabilis with resistance to fluoroquinolones - started Rocephin 1 g daily on 04/04, continue pending cultures --Follow urine culture, growing GNB's >100,000 (3) Frequent falls: Code(s): R29.6 - Repeated falls Status: Acute Assessment and Plan: Patient lives alone and uses a walker to ambulate. She reports frequent falls (3 this month) where she becomes weak and slides to the floor. She denies loss of consciousness or injuries from the fall. - Head CT: No intracranial hemorrhage, acute infarction, or mass lesion. Normal aging brain. - May need to discuss with patients service mechanic about discontinuing her anticoagulation given frequent falls. Will see how she does with PT/OT first. - PT/OT --Check x-ray left ankle. --Pain control for foot/ankle pain, describes as burning--Gabapentin 100<200 BID, Schedule tylenol BID (4) Chronic anemia: Code(s): D64.9 - Anemia, unspecified Status: Acute Assessment and Plan: Chronic, appears at baseline. No signs of active bleeding. - Iron and TIBC panel ordered - B12 and folate ordered - Monitor (5) Diastolic heart failure: Code(s): I50.30 - Unspecified diastolic (congestive) heart failure Status: Acute Assessment and Plan: Chronic, does not appear to be in acute exacerbation. - Echo 10/09/23: LVEF 60-65% with grade I diastolic dysfunction - Continue home medications - Monitor (6) Type 2 diabetes mellitus: Code(s): E11.9 - Type 2 diabetes mellitus without complications Status: Acute Assessment and Plan: Fasting blood sugar 68 this morning, repeat 92. Yesterday premeal blood sugars 114-93-252, 204 hs - hypoglycemia protocol - POC blood glucose ACHS - home medication - Linagliptin 5 mg daily, Lispro 12 units TID, Tresiba 45 units daily - correct regimen ordered - mod sliding scale --Hold Januvia 100 mg daily, lispro 12>3 units TID, and lantus 45>25 units daily. Resume increased mealtime dose pending prelunch blood sugar - A1C 8.8 on 09/07/23 --Eucerin for flaky skin, local wound care, left leg (patient reports it was a blister) (7) Paroxysmal atrial fibrillation: Code(s): I48.0 - Paroxysmal atrial fibrillation Status: Chronic Assessment and Plan: Currently in sinus rhythm. - Current home medication: amiodarone 200 mg daily and eliquis 5 mg BID - May need to discuss discontinuing anticoagulation given frequent falls - Monitor (8) Hypothyroidism: Code(s): E03.9 - Hypothyroidism, unspecified Status: Acute Assessment and Plan: Chronic. - TSH 27.600 - T4 0.60 - Levothyroxine increased to 87.5 mcg daily (9) Restless leg syndrome: Code(s): G25.81 - Restless legs syndrome Status: Acute Assessment and Plan: Chronic, well controlled on home medication. - Pramipexole 0.5 mg daily Plan Chest x-ray, x-ray left ankle, therapy eval, urine cultures pending Time Spent With Patient Time: 35 minutes Subjective Date/time seen: 04/06/24 09:41
[2024-04-06 11:35] LABS: Glucose Point of Care 200 mg/dl (65-105)
[2024-04-06] MEDS: GABAPENTIN 100 MG CAPSULE 200 MG PO ×2 (12:32→20:18)
[2024-04-06] MEDS: INSULIN ASPART (*BKC) 100 UNITS/ML SUB-Q ×3 (12:32→21:42)
[2024-04-06 16:27] LABS: Glucose Point of Care 173 mg/dl (65-105)
[2024-04-06] MEDS: ACETAMINOPHEN 325 MG TABLET 650 MG PO (17:11)
[2024-04-06] MEDS: busPIRone HCL 5 MG TABLET 15 MG PO (20:15)
[2024-04-06] MEDS: buPROPion HCL XL (24 HR) 150 MG TABCR PO (20:16)
[2024-04-06] MEDS: PRAMIPEXOLE 0.5 MG TABLET PO (20:17)
[2024-04-06] MEDS: FAMOTIDINE 20 MG TABLET PO (20:17)
[2024-04-06] MEDS: DIVALPROEX SODIUM DR 250 MG TABEC 500 MG PO (20:17)
[2024-04-06] MEDS: allopurinoL 100 MG TABLET PO (20:18)
[2024-04-06] MEDS: AMIODARONE HCL 200 MG TABLET PO (20:18)
[2024-04-06 21:40] LABS: Glucose Point of Care 281 mg/dl (65-105)
[2024-04-06] MEDS: MICONAZOLE NITRATE 2% CREAM 30 GM TUBE 1 APPLIC TOPICAL (21:49)
[2024-04-07] VITALS (7 sets, daily range): BP systolic 106–156; BP diastolic 60–86; PULSE 59–71; RESP 15–18; TEMP 35.9–36.2; O2SAT 98–100
[2024-04-07] MEDS: LEVOTHYROXINE SODIUM 75 MCG TABLET PO (04:56)
[2024-04-07] MEDS: LEVOTHYROXINE SODIUM 12.5 MCG TABLET PO (04:57)
[2024-04-07 06:40] LABS: Basophils Percent Auto 0.3 % (0.2-1.2); Eosinophils Absolute Auto 0.3 K/mm3 (0-0.3); Eosinophils Percent Auto 4.1 % (0-4.4); Hemoglobin 9.5 g/dL (12.0-15.0); Immature Granulocyte Absolute 0.02 K/mm3 (0.00-0.031); Immature Granulocyte Percent A 0.3 % (0-0.5); Lymphocytes Absolute Auto 1.87 K/mm3 (0.9-3.2); Lymphocytes Percent Auto 26.2 % (18.3-44.2); Mean Corpuscular HGB Conc 30.6 g/dl (32-36); Mean Corpuscular Hemoglobin 29.7 pg (26-34); Mean Corpuscular Volume 96.9 fl (80-100); Monocytes Absolute Auto 0.6 K/mm3 (0.1-0.6); Monocytes Percent Auto 8.7 % (2.6-8.5); Neutrophils Absolute Auto 4.3 K/mm3 (1.3-6.7); Neutrophils Percent Auto 60.4 % (45.5-73.1); Platelet Count Result 188 k/mm3 (150-375); Red Cell Distribution Width 16.1 % (11.5-14.5); White Blood Count 7.2 K/mm3 (4.5-10.0)
[2024-04-07 07:00] LABS: Alanine Aminotransferase 26 U/L (6-35); Albumin Level 3.5 g/dL (3.5-5.1); Alkaline Phosphatase 92 U/L (38-126); Anion Gap 7 mmol/L (4-12); Aspartate Amino Transferase 21 U/L (14-36); Bilirubin,Total 0.3 mg/dL (0.2-1.3); Blood Urea Nitrogen 46 mg/dL (7-17); Calcium 9.1 mg/dL (8.4-10.2); Carbon Dioxide 29 mmol/L (22-30); Chloride 95 mmol/L (98-107); Estimated CRCL calculation 24 ml/min; Estimated Glomerular Filt Rate 21; Glucose 218 mg/dL (65-110); Potassium 4.3 mmol/L (3.4-5.0); Sodium 131 mmol/L (137-145)
[2024-04-07 07:36] LABS: Glucose Point of Care 194 mg/dl (65-105)
[2024-04-07] MEDS: INSULIN ASPART (*BKC) 100 UNITS/ML SUB-Q ×4 (08:35→17:16)
[2024-04-07] MEDS: INSULIN GLARGINE (*BKC) 100 UNITS/ML 35 UNITS SUB-Q (08:38)
[2024-04-07] MEDS: CHOLECALCIFEROL 5,000 UNITS TABLET 5000 UNITS PO (08:43)
[2024-04-07] MEDS: VENLAFAXINE HCL XR 75 MG CAP.ER.24H 150 MG PO ×2 (08:43→20:31)
[2024-04-07] MEDS: carvediloL 6.25 MG TABLET PO ×2 (08:43→20:31)
[2024-04-07] MEDS: SULFAMETHOXAZOLE/TRIMETHOPRIM 800/160 MG DS TABLET 1 TAB PO (08:43)
[2024-04-07] MEDS: VITAMIN B COMPLEX CAPSULE 1 CAP PO (08:44)
[2024-04-07] MEDS: MEMANTINE 10 MG TABLET PO ×2 (08:44→20:33)
[2024-04-07] MEDS: APIXABAN 5 MG TABLET PO ×2 (08:44→20:33)
[2024-04-07] MEDS: ISOSORBIDE DINITRATE 10 MG TABLET PO ×2 (08:44→20:33)
[2024-04-07] MEDS: ACETAMINOPHEN 325 MG TABLET 650 MG PO ×3 (08:44→20:48)
[2024-04-07] MEDS: OPTI-GEN TAB 1 TABLET PO ×2 (08:44→20:33)
[2024-04-07] MEDS: CALCIUM/VITAMIN D 500 MG/5 MCG (200 I.U.) TABLET PO (08:45)
[2024-04-07] MEDS: EUCERIN CREAM 120 GM JAR 1 APPLIC TOPICAL (08:45)
[2024-04-07] MEDS: GABAPENTIN 100 MG CAPSULE 200 MG PO ×2 (09:18→20:36)
[2024-04-07 11:16] LABS: Glucose Point of Care 255 mg/dl (65-105)
[2024-04-07 16:51] LABS: Glucose Point of Care 163 mg/dl (65-105)
--- NOTE | 2024-04-07 18:50 | PM.IMPN ---
Progress Note: A&P Assessment and Plan (1) Acute on chronic kidney failure: Code(s): N17.9 - Acute kidney failure, unspecified; N18.9 - Chronic kidney disease, unspecified Status: Acute Assessment and Plan: Likely ALBERTINA on CKD. Creatinine 2.9. Baseline creatinine has been uptrending over the years 1.3-1.7 in 2021, 1.3-2.23 in 2022, 1.5-2.4 earlier this year. Creatinine 2.9 up from prior so likely ALBERTINA with progression of CKD well. - Has basilar crackles - IV fluids discontinued. Patient is eating/drinking. - Monitor vital signs, I/O - Monitor CBC and chemistries with daily labs (2) Urinary tract infection: Code(s): N39.0 - Urinary tract infection, site not specified Status: Acute Assessment and Plan: - UA: cloudy appearance with trace blood, positive nitrates, 3+ leukocytes, >100 WBC, 4+ bacteria - UC obtained on 04/04: pending - previous micro reviewed 03/11/24: Proteus mirabilis with resistance to fluoroquinolones - started Rocephin 1 g daily on 04/04, continue pending cultures --Urine culture growing Klebs aerogenes (enterobacter) Changed ceftriaxone to Bactrim DS x1 dose, then Bactrim SS 1 BID to 04/10 (renally dosed) (3) Frequent falls: Code(s): R29.6 - Repeated falls Status: Acute Assessment and Plan: Patient lives alone and uses a walker to ambulate. She reports frequent falls (3 this month) where she becomes weak and slides to the floor. She denies loss of consciousness or injuries from the fall. - Head CT: No intracranial hemorrhage, acute infarction, or mass lesion. Normal aging brain. 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 Will see how she does with PT/OT first. - PT/OT -- x-ray left ankle no acute findings --Pain control for foot/ankle pain, describes as burning--Gabapentin 100<200 BID--pain improved, Schedule tylenol BID --Discharge to SNF 04/08 (4) Chronic anemia: Code(s): D64.9 - Anemia, unspecified Status: Acute Assessment and Plan: Chronic, appears at baseline. No signs of active bleeding. - Iron and TIBC panel ordered - B12 and folate ordered - Monitor (5) Diastolic heart failure: Code(s): I50.30 - Unspecified diastolic (congestive) heart failure Status: Acute Assessment and Plan: Chronic, does not appear to be in acute exacerbation. - Echo 10/09/23: LVEF 60-65% with grade I diastolic dysfunction - Continue home medications - Monitor (6) Type 2 diabetes mellitus: Code(s): E11.9 - Type 2 diabetes mellitus without complications Status: Acute Assessment and Plan: Fasting blood sugar 68 this morning, repeat 92. Yesterday premeal blood sugars 114-93-252, 204 hs - hypoglycemia protocol - POC blood glucose ACHS - home medication - Linagliptin 5 mg daily, Lispro 12 units TID, Tresiba 45 units daily - correct regimen ordered - mod sliding scale --Hold Januvia 100 mg daily, lispro 12>3<5 units TID, and lantus 45>25<35 units daily. Continue to titrate blood sugars. Improved today. - A1C 8.8 on 09/07/23 --Eucerin for flaky skin, local wound care, left leg shallow healing wound (patient reports it was a blister) (7) Paroxysmal atrial fibrillation: Code(s): I48.0 - Paroxysmal atrial fibrillation Status: Chronic Assessment and Plan: Currently in sinus rhythm. - Current home medication: amiodarone 200 mg daily and eliquis 5 mg BID - May need to discuss discontinuing anticoagulation given frequent falls - Monitor (8) Hypothyroidism: Code(s): E03.9 - Hypothyroidism, unspecified Status: Acute Assessment and Plan: Chronic. - TSH 27.600 - T4 0.60 - Levothyroxine increased to 87.5 mcg daily (9) Restless leg syndrome: Code(s): G25.81 - Restless legs syndrome Status: Acute Assessment and Plan: Chronic, well controlled on home medication. - Pramipexole 0.5 mg daily (10) Al
[2024-04-07 20:02] LABS: Glucose Point of Care 68 mg/dl (65-105)
[2024-04-07 20:28] LABS: Glucose Point of Care 77 mg/dl (65-105)
[2024-04-07] MEDS: buPROPion HCL XL (24 HR) 150 MG TABCR PO (20:31)
[2024-04-07] MEDS: busPIRone HCL 5 MG TABLET 15 MG PO (20:31)
[2024-04-07] MEDS: PRAMIPEXOLE 0.5 MG TABLET PO (20:33)
[2024-04-07] MEDS: allopurinoL 100 MG TABLET PO (20:33)
[2024-04-07] MEDS: AMIODARONE HCL 200 MG TABLET PO (20:33)
[2024-04-07] MEDS: FAMOTIDINE 20 MG TABLET PO (20:33)
[2024-04-07] MEDS: SULFAMETHOXAZOLE/TRIMETHOPRIM 400/80 MG TABLET 1 TAB PO (20:33)
[2024-04-07] MEDS: DIVALPROEX SODIUM DR 250 MG TABEC 500 MG PO (20:33)
[2024-04-07 23:55] LABS: Glucose Point of Care 55 mg/dl (65-105)
[2024-04-08] VITALS (9 sets, daily range): BP systolic 115–160; BP diastolic 45–77; PULSE 59–72; RESP 16–18; TEMP 35.7–36.4; O2SAT 99–100
--- NOTE | 2024-04-08 | ECHO_ITS ---
Patient Info Name: Aleksandra Berman Age: 78 years : 1945 Gender: Female Ht: 65 in Wt: 250 lbs BSA: 2.34 m2 HR: 59 bpm BP: 115 / 50 mmHg Technical Quality: Good Exam Date: 04/08/2024 11:03 AM Exam Location: Echo Lab Patient Status: Inpatient Admit Date: 04/05/2024 Staff Ordering Physician: Sapna Lala NP Test Director: Patricio Ng RDCS Attending Provider: Hiwot Bustos APRN Referring Physician: Spike GODINEZ; Exam Type: CA echo doppler color flow Study Info Indications - ALBERTINA on nCKD Complete two-dimensional, color flow and Doppler transthoracic echocardiogram is performed. Summary 1. Complete two-dimensional, color flow and Doppler transthoracic echocardiogram is performed. 2. Left ventricular chamber dimension is normal. 3. Left ventricular systolic function is normal, estimated at 65-70%. 4. The left ventricular diastolic function is grade I diastolic dysfunction. 5. E/e' 21 is elevated. 6. Left atrial chamber dimension is mildly enlarged. 7. The mitral valve has moderately calcified annulus. 8. There is mild mitral valve regurgitation. 9. Mild pulmonary hypertension, estimated pulmonary arterial systolic pressure is 43 mmHg. Left Ventricle E/e' 21 is elevated. Left ventricular chamber dimension is normal. Left ventricular systolic function is normal, estimated at 65-70%. The left ventricular diastolic function is grade I diastolic dysfunction. Right Ventricle Right ventricular systolic function is normal and with normal TAPSE 2.0 cm. Right ventricular chamber dimension is normal. Left Atria Left atrial chamber dimension is mildly enlarged. Right Atria Right atrial chamber dimension is normal. Aortic Valve The aortic valve is trileaflet. There is no aortic valve stenosis. There is trace aortic valve regurgitation. Pulmonic Valve There is no pulmonic regurgitation. Mitral Valve The mitral valve has moderately calcified annulus. There is no mitral valve stenosis. There is mild mitral valve regurgitation. Tricuspid Valve There is no tricuspid valve regurgitation. Mild pulmonary hypertension, estimated pulmonary arterial systolic pressure is 43 mmHg. Pericardium/Pleural There is no pericardial effusion. Inferior Vena Cava Normal inferior vena cava with >50% collapse upon inspiration consistent with normal right atrial pressure, 5 mmHg. Aorta The aortic root size at the sinus of Valsalva is normal. Left Ventricular Outflow Tract Name Value Normal LVOT 2D LVOT Diameter 2.0 cm LVOT Doppler LVOT Peak Gradient 6 mmHg LVOT Mean Gradient 4 mmHg LVOT VTI 29 cm LVOT VTI/AV VTI Ratio 1.0 LVOT Stroke Volume 90 ml LVOT CO 5.5 l/min LVOT CI 2.3 l/min/m2 Pulmonic Valve Name Value Normal PV Doppler PV Peak G
[2024-04-08 00:13] LABS: Glucose Point of Care 114 mg/dl (65-105)
[2024-04-08 02:04] LABS: Glucose Point of Care 125 mg/dl (65-105)
[2024-04-08 05:39] LABS: Glucose Point of Care 81 mg/dl (65-105)
[2024-04-08] MEDS: LEVOTHYROXINE SODIUM 12.5 MCG TABLET PO (05:43)
[2024-04-08] MEDS: LEVOTHYROXINE SODIUM 75 MCG TABLET PO (05:43)
[2024-04-08 05:45] LABS: Hemoglobin 10.2 g/dL (12.0-15.0); Mean Corpuscular Hemoglobin 29.5 pg (26-34); Mean Corpuscular Volume 98.3 fl (80-100); Platelet Count Result 210 k/mm3 (150-375); Red Blood Count 3.46 M/mm3 (4.2-5.4); Red Cell Distribution Width 15.9 % (11.5-14.5); White Blood Count 7.1 K/mm3 (4.5-10.0)
[2024-04-08 05:46] LABS: Basophils Percent Auto 0.4 % (0.2-1.2); Eosinophils Absolute Auto 0.6 K/mm3 (0-0.3); Eosinophils Percent Auto 7.8 % (0-4.4); Immature Granulocyte Absolute 0.04 K/mm3 (0.00-0.031); Immature Granulocyte Percent A 0.6 % (0-0.5); Lymphocytes Absolute Auto 2.34 K/mm3 (0.9-3.2); Lymphocytes Percent Auto 33.1 % (18.3-44.2); Mean Platelet Volume 10.3 fl (7.4-10.4); Monocytes Absolute Auto 0.5 K/mm3 (0.1-0.6); Monocytes Percent Auto 6.9 % (2.6-8.5); Neutrophils Absolute Auto 3.6 K/mm3 (1.3-6.7); Neutrophils Percent Auto 51.2 % (45.5-73.1)
[2024-04-08 05:54] LABS: Alanine Aminotransferase 32 U/L (6-35); Albumin Level 4.2 g/dL (3.5-5.1); Alkaline Phosphatase 96 U/L (38-126); Anion Gap 8 mmol/L (4-12); Aspartate Amino Transferase 27 U/L (14-36); Bilirubin,Total 0.3 mg/dL (0.2-1.3); Blood Urea Nitrogen 45 mg/dL (7-17); Calcium 9.5 mg/dL (8.4-10.2); Carbon Dioxide 32 mmol/L (22-30); Chloride 96 mmol/L (98-107); Estimated CRCL calculation 25 ml/min; Estimated Glomerular Filt Rate 22; Glucose 78 mg/dL (65-110); Potassium 4.7 mmol/L (3.4-5.0); Sodium 136 mmol/L (137-145)
[2024-04-08 07:48] LABS: Glucose Point of Care 115 mg/dl (65-105)
[2024-04-08] MEDS: INSULIN GLARGINE (*BKC) 100 UNITS/ML 30 UNITS SUB-Q (08:51)
[2024-04-08] MEDS: INSULIN ASPART (*BKC) 100 UNITS/ML SUB-Q ×3 (08:52→17:11)
[2024-04-08] MEDS: CHOLECALCIFEROL 5,000 UNITS TABLET 5000 UNITS PO (08:55)
[2024-04-08] MEDS: APIXABAN 5 MG TABLET PO ×2 (08:55→20:44)
[2024-04-08] MEDS: OPTI-GEN TAB 1 TABLET PO ×2 (08:55→20:44)
[2024-04-08] MEDS: VITAMIN B COMPLEX CAPSULE 1 CAP PO (08:55)
[2024-04-08] MEDS: CALCIUM/VITAMIN D 500 MG/5 MCG (200 I.U.) TABLET PO (08:55)
[2024-04-08] MEDS: MEMANTINE 10 MG TABLET PO ×2 (08:56→20:43)
[2024-04-08] MEDS: ISOSORBIDE DINITRATE 10 MG TABLET PO ×2 (08:56→20:44)
[2024-04-08] MEDS: VENLAFAXINE HCL XR 75 MG CAP.ER.24H 150 MG PO ×2 (08:56→20:42)
[2024-04-08] MEDS: ACETAMINOPHEN 325 MG TABLET 650 MG PO ×2 (08:56→17:11)
[2024-04-08] MEDS: SULFAMETHOXAZOLE/TRIMETHOPRIM 400/80 MG TABLET 1 TAB PO ×2 (08:56→20:44)
[2024-04-08] MEDS: carvediloL 6.25 MG TABLET PO ×2 (08:56→20:42)
[2024-04-08] MEDS: EUCERIN CREAM 120 GM JAR 1 APPLIC TOPICAL (08:56)
[2024-04-08] MEDS: GABAPENTIN 100 MG CAPSULE 200 MG PO ×2 (10:40→21:50)
[2024-04-08 11:25] LABS: Glucose Point of Care 193 mg/dl (65-105)
--- NOTE | 2024-04-08 11:52 | PM.IMPN ---
Progress Note: A&P Assessment and Plan (1) Acute on chronic kidney failure: Code(s): N17.9 - Acute kidney failure, unspecified; N18.9 - Chronic kidney disease, unspecified Status: Acute Assessment and Plan: - Appears to be stabilizing. Cr improving...2.4>>2.3>>2.2 today. - Continue to monitor renal function closely. - Avoid nephrotoxic agents. (2) Acute UTI: Code(s): N39.0 - Urinary tract infection, site not specified Status: Acute Assessment and Plan: - UA consistent with possible UTI. - Started on Rocephin initially and transitioned to Bactrim currently. - Still with some confusion possibly exacerbated by UTI. - Urine culture growing klebs aerogenes (Enterobacter) - Continue Bactrim per sensitivities. (3) Diastolic heart failure: Code(s): I50.30 - Unspecified diastolic (congestive) heart failure Status: Acute Assessment and Plan: - Appears well compensated. - Continue bumetadine. - Monitor closely for decompensation. (4) General weakness: Code(s): R53.1 - Weakness Status: Acute Assessment and Plan: - Possibly chronic debility worsened by UTI. - PT eval and treatment. - Fall precautions. (5) Restless leg syndrome: Code(s): G25.81 - Restless legs syndrome Status: Acute Assessment and Plan: Stable. Continue pramipexole. (6) Type 2 diabetes mellitus: Code(s): E11.9 - Type 2 diabetes mellitus without complications Status: Acute Assessment and Plan: Patient with an episode of hypoglycemia overnight. Lantus dose adjusted. Continue to adjust insulin for optimal BG levels. (7) Hypothyroidism: Code(s): E03.9 - Hypothyroidism, unspecified Status: Acute Assessment and Plan: - TSH elevated with low levels of FT4 observed. - Patient likely non-compliant with meds at home. - Levothyroxine dose slightly increased inpatient. - Pt encouraged with meds compliance. (8) Chronic anemia: Code(s): D64.9 - Anemia, unspecified Status: Acute Assessment and Plan: - Hgb appears stable per previous labs reviewed. - No obvious signs of bleeding noted. - Continue to monitor Hgb closely. (9) Frequent falls: Code(s): R29.6 - Repeated falls Status: Acute Assessment and Plan: - Likely 2/2 debility and worsened by acute infection. - PT eval and treatment. - Fall precautions. - Could possibly need SNF or inpatient rehab placement. (10) Minimal cognitive impairment: Code(s): G31.84 - Mild cognitive impairment of uncertain or unknown etiology Status: Acute Assessment and Plan: - Appears chronic but possibly worsened by acute infection and possibly polypharmacy. - Will evaluate home meds prior to discharge. - Safety precautions and assist with care. (11) Paroxysmal atrial fibrillation: Code(s): I48.0 - Paroxysmal atrial fibrillation Status: Chronic Assessment and Plan: - Patient currently not on tele monitoring. - Continue amiodarone and Eliquis. (12) Mixed hyperlipidemia: Code(s): E78.2 - Mixed hyperlipidemia Status: Acute Assessment and Plan: Continue Evolocumab outpatient. Low-fat diet. (13) Benign hypertension with chronic kidney disease: Code(s): I12.9 - Hypertensive chronic kidney disease with stage 1 through stage 4 chronic kidney disease, or unspecified chronic kidney disease Status: Acute Assessment and Plan: BP well controlled. Continue isosorbide dinitrate. (14) Anxiety: Code(s): F41.9 - Anxiety disorder, unspecified Status: Acute Assessment and Plan: Stable. Continue current regimen. (15) Depression: Qualifiers: Depression Type: major depressive disorder Major depression recurrence: single episode Active/Remission status: in full remission Qualified Code(s): F32.5 - Major depressive disorder, single episode, in ful
[2024-04-08 16:31] LABS: Glucose Point of Care 165 mg/dl (65-105)
[2024-04-08] MEDS: AMIODARONE HCL 200 MG TABLET PO (20:43)
[2024-04-08] MEDS: DIVALPROEX SODIUM DR 250 MG TABEC 500 MG PO (20:43)
[2024-04-08] MEDS: busPIRone HCL 5 MG TABLET 15 MG PO (20:44)
[2024-04-08] MEDS: FAMOTIDINE 20 MG TABLET PO (20:44)
[2024-04-08] MEDS: PRAMIPEXOLE 0.5 MG TABLET PO (20:44)
[2024-04-08] MEDS: allopurinoL 100 MG TABLET PO (20:44)
[2024-04-08] MEDS: buPROPion HCL XL (24 HR) 150 MG TABCR PO (20:45)
[2024-04-08 21:45] LABS: Glucose Point of Care 148 mg/dl (65-105)
[2024-04-09] VITALS (7 sets, daily range): BP systolic 158–168; BP diastolic 59–70; PULSE 60–80; RESP 14–16; TEMP 35.9–36.4; O2SAT 95–100
[2024-04-09 05:48] LABS: Basophils Percent Auto 0.4 % (0.2-1.2); Eosinophils Absolute Auto 0.5 K/mm3 (0-0.3); Eosinophils Percent Auto 7.8 % (0-4.4); Hematocrit 32.3 % (37.0-47.0); Hemoglobin 10.1 g/dL (12.0-15.0); Immature Granulocyte Absolute 0.04 K/mm3 (0.00-0.031); Immature Granulocyte Percent A 0.6 % (0-0.5); Lymphocytes Absolute Auto 2.17 K/mm3 (0.9-3.2); Lymphocytes Percent Auto 31.5 % (18.3-44.2); Mean Corpuscular HGB Conc 31.3 g/dl (32-36); Mean Corpuscular Hemoglobin 30.3 pg (26-34); Monocytes Absolute Auto 0.5 K/mm3 (0.1-0.6); Monocytes Percent Auto 6.7 % (2.6-8.5); Neutrophils Absolute Auto 3.7 K/mm3 (1.3-6.7); Platelet Count Result 202 k/mm3 (150-375); Red Blood Count 3.33 M/mm3 (4.2-5.4); Red Cell Distribution Width 15.8 % (11.5-14.5); White Blood Count 6.9 K/mm3 (4.5-10.0)
[2024-04-09 06:01] LABS: Alanine Aminotransferase 30 U/L (6-35); Albumin Level 3.7 g/dL (3.5-5.1); Alkaline Phosphatase 102 U/L (38-126); Anion Gap 8 mmol/L (4-12); Aspartate Amino Transferase 24 U/L (14-36); Bilirubin,Total 0.1 mg/dL (0.2-1.3); Blood Urea Nitrogen 41 mg/dL (7-17); Calcium 9.6 mg/dL (8.4-10.2); Carbon Dioxide 32 mmol/L (22-30); Chloride 96 mmol/L (98-107); Estimated CRCL calculation 23 ml/min; Estimated Glomerular Filt Rate 20; Glucose 169 mg/dL (65-110); Potassium 4.9 mmol/L (3.4-5.0); Sodium 136 mmol/L (137-145)
[2024-04-09] MEDS: LEVOTHYROXINE SODIUM 75 MCG TABLET PO (06:23)
[2024-04-09] MEDS: LEVOTHYROXINE SODIUM 12.5 MCG TABLET PO (06:23)
[2024-04-09 07:39] LABS: Glucose Point of Care 134 mg/dl (65-105)
[2024-04-09] MEDS: CALCIUM/VITAMIN D 500 MG/5 MCG (200 I.U.) TABLET PO (08:30)
[2024-04-09] MEDS: MEMANTINE 10 MG TABLET PO ×2 (08:30→21:18)
[2024-04-09] MEDS: ISOSORBIDE DINITRATE 10 MG TABLET PO ×2 (08:30→21:12)
[2024-04-09] MEDS: VENLAFAXINE HCL XR 75 MG CAP.ER.24H 150 MG PO ×2 (08:30→21:12)
[2024-04-09] MEDS: carvediloL 6.25 MG TABLET PO ×2 (08:30→21:13)
[2024-04-09] MEDS: ACETAMINOPHEN 325 MG TABLET 650 MG PO ×2 (08:30→17:05)
[2024-04-09] MEDS: OPTI-GEN TAB 1 TABLET PO ×2 (08:30→21:11)
[2024-04-09] MEDS: VITAMIN B COMPLEX CAPSULE 1 CAP PO (08:31)
[2024-04-09] MEDS: GABAPENTIN 100 MG CAPSULE 200 MG PO ×2 (08:31→21:20)
[2024-04-09] MEDS: CHOLECALCIFEROL 5,000 UNITS TABLET 5000 UNITS PO (08:31)
[2024-04-09] MEDS: APIXABAN 5 MG TABLET PO ×2 (08:31→21:11)
[2024-04-09] MEDS: SULFAMETHOXAZOLE/TRIMETHOPRIM 400/80 MG TABLET 1 TAB PO ×2 (08:31→21:11)
[2024-04-09] MEDS: EUCERIN CREAM 120 GM JAR 1 APPLIC TOPICAL (08:39)
[2024-04-09] MEDS: INSULIN GLARGINE (*BKC) 100 UNITS/ML 30 UNITS SUB-Q (08:40)
[2024-04-09] MEDS: INSULIN ASPART (*BKC) 100 UNITS/ML SUB-Q ×5 (08:40→21:18)
[2024-04-09 11:31] LABS: Glucose Point of Care 174 mg/dl (65-105)
--- NOTE | 2024-04-09 11:52 | PM.DS ---
DS: Admitting Diagnosis Discharge Date 04/09/2024 Admitting Diagnosis Increased generalized muscle weakness. DS: Discharge Diagnosis Discharge Diagnosis (1) Acute UTI: Code(s): N39.0 - Urinary tract infection, site not specified Status: Acute Assessment and Plan: - UA consistent with UTI. - Urine culture growing klebs aerogenes (Enterobacter). - Started on Ceftriaxone and transitioned to Bactrim. - Continue Bactrim X 3 doses. (2) Acute on chronic kidney failure: Code(s): N17.9 - Acute kidney failure, unspecified; N18.9 - Chronic kidney disease, unspecified Status: Acute Assessment and Plan: - Stabilized with Cr stable per previous . - Continue to monitor renal function closely. - Avoid nephrotoxic agents. (3) Altered mental status: Qualifiers: Altered mental status type: unspecified Qualified Code(s): R41.82 - Altered mental status, unspecified Code(s): R41.82 - Altered mental status, unspecified Status: Resolved Assessment and Plan: - Possible chronic and worsened by acute infection and possibly polypharmacy. - Consider meds review. - Safety precautions and assist with care. (4) General weakness: Code(s): R53.1 - Weakness Status: Acute Assessment and Plan: - Possibly chronic debility worsened by UTI. - SNF placement recommended per PT/OT eval. - Patient to be transferred to SNF. - Fall precautions. (5) Diastolic heart failure: Code(s): I50.30 - Unspecified diastolic (congestive) heart failure Status: Acute Assessment and Plan: Continue diuresis with bumetanide. Strict I & O's with daily weights. (6) Type 2 diabetes mellitus: Code(s): E11.9 - Type 2 diabetes mellitus without complications Status: Acute Assessment and Plan: - Episode of hypoglycemia during hospital admission. - Lantus dose slightly decreased. - Started on Jardiance. - Adjust meds as needed for optimal control. (7) Hypothyroidism: Code(s): E03.9 - Hypothyroidism, unspecified Status: Acute Assessment and Plan: - Noted with elevated TSH with low FT4 levels. - Son bedside reports medication just started recently, within the last week. - Maintained previous home dose. - Adjust meds as needed after 6-8 weeks. (8) Restless leg syndrome: Code(s): G25.81 - Restless legs syndrome Status: Acute Assessment and Plan: Continue pramipexole. (9) Polypharmacy: Code(s): Z79.899 - Other terminal system operator (current) drug therapy Status: Acute Assessment and Plan: - Consider meds review at SNF and by pt PCP after discharge from SNF. DS: Summary Hospital Course Reason for hospitalization: Increased generalized muscle weakness and fall. Hospital Course: Patient is a 78yo female with a past medical Hx of CHF, pAFIB, CKD, DM2, Morbid Obesity, ANDREA, HTN and venous stasis. Pt presented with increased generalized muscle weakness and a fall episode. Initial work-up done revealed pt had a UTI and she was started on Ceftriaxone that was later transitioned to Bactrim after urine culture and sensitivities were resulted. She complained of left ankle pain and imaging done only showed Moderate midfoot osteoarthritis. Patient was also observed to be confused, likely due to infection and possibly polypharmacy, with the patient's head CT revealing a normal aging brain, and CXR with no infiltrates. Patient worked with PT/OT during her hospitalization, and they have recommended SNF placement for safety concerns currently. Patient is being transferred to SNF and pt's son has been informed and updated on patient's current medical condition bedside. Patient still with some confusion possibly due to her infection, hospital environment and possibly polypharmacy. Consider reviewing patient's home medications with observed polypharmacy possibly affecting patient's mentation. Status at Discharge Cognitive/b
[2024-04-09 12:08] LABS: SARS-CoV-2 RNA PCR Negative (Negative)
[2024-04-09] MEDS: MINERAL OIL 30 ML UDC (15:16)
[2024-04-09 16:38] LABS: Glucose Point of Care 206 mg/dl (65-105)
--- NOTE | 2024-04-09 17:10 | PC.NURSE ---
Assumed care of Aleksandra Berman from ELISEO Costa at 15:30.
--- NOTE | 2024-04-09 17:17 | PC.NURSE ---
Dr. Ahmadi notified of patient's refusal to discharge to [facility]. Re-evaluate discharge tomorrow. More notes in provider communication assessment. [facility] called and made aware that patient will not be coming to their facility today.
[2024-04-09 20:08] LABS: Glucose Point of Care 256 mg/dl (65-105)
[2024-04-09] MEDS: AMIODARONE HCL 200 MG TABLET PO (21:11)
[2024-04-09] MEDS: allopurinoL 100 MG TABLET PO (21:11)
[2024-04-09] MEDS: busPIRone HCL 5 MG TABLET 15 MG PO (21:11)
[2024-04-09] MEDS: PRAMIPEXOLE 0.5 MG TABLET PO (21:11)
[2024-04-09] MEDS: FAMOTIDINE 20 MG TABLET PO (21:12)
[2024-04-09] MEDS: DIVALPROEX SODIUM DR 250 MG TABEC 500 MG PO (21:12)
[2024-04-09] MEDS: buPROPion HCL XL (24 HR) 150 MG TABCR PO (21:17)
[2024-04-10 02:07] VITALS: PULSE 61; RESP 12; O2SAT 97
[2024-04-10] MEDS: LEVOTHYROXINE SODIUM 12.5 MCG TABLET PO (05:18)
[2024-04-10] MEDS: LEVOTHYROXINE SODIUM 75 MCG TABLET PO (05:18)
[2024-04-10 05:40] VITALS: BP 134/61; PULSE 63; RESP 18; TEMP 36.2; O2SAT 96
[2024-04-10 06:11] LABS: Basophils Absolute Auto 0.1 K/mm3 (0.0-0.1); Basophils Percent Auto 0.9 % (0.2-1.2); Eosinophils Absolute Auto 0.6 K/mm3 (0-0.3); Eosinophils Percent Auto 8.2 % (0-4.4); Hematocrit 33.2 % (37.0-47.0); Hemoglobin 10.1 g/dL (12.0-15.0); Immature Granulocyte Absolute 0.02 K/mm3 (0.00-0.031); Immature Granulocyte Percent A 0.3 % (0-0.5); Lymphocytes Absolute Auto 2.33 K/mm3 (0.9-3.2); Lymphocytes Percent Auto 34.7 % (18.3-44.2); Mean Corpuscular HGB Conc 30.4 g/dl (32-36); Mean Corpuscular Hemoglobin 29.6 pg (26-34); Mean Corpuscular Volume 97.4 fl (80-100); Monocytes Absolute Auto 0.4 K/mm3 (0.1-0.6); Monocytes Percent Auto 6.1 % (2.6-8.5); Neutrophils Absolute Auto 3.4 K/mm3 (1.3-6.7); Neutrophils Percent Auto 49.8 % (45.5-73.1); Platelet Count Result 218 k/mm3 (150-375); Red Blood Count 3.41 M/mm3 (4.2-5.4); Red Cell Distribution Width 15.9 % (11.5-14.5); White Blood Count 6.7 K/mm3 (4.5-10.0)
[2024-04-10 06:36] LABS: Alanine Aminotransferase 29 U/L (6-35); Albumin Level 3.9 g/dL (3.5-5.1); Alkaline Phosphatase 85 U/L (38-126); Anion Gap 8 mmol/L (4-12); Aspartate Amino Transferase 30 U/L (14-36); Bilirubin,Total 0.4 mg/dL (0.2-1.3); Blood Urea Nitrogen 44 mg/dL (7-17); Calcium 9.4 mg/dL (8.4-10.2); Carbon Dioxide 28 mmol/L (22-30); Chloride 99 mmol/L (98-107); Estimated CRCL calculation 25 ml/min; Estimated Glomerular Filt Rate 22; Glucose 104 mg/dL (65-110); Potassium 5.1 mmol/L (3.4-5.0); Sodium 135 mmol/L (137-145)
[2024-04-10 07:43] LABS: Glucose Point of Care 92 mg/dl (65-105)
[2024-04-10 10:43] VITALS: PULSE 63
[2024-04-10] MEDS: MEMANTINE 10 MG TABLET PO (10:43)
[2024-04-10] MEDS: GABAPENTIN 100 MG CAPSULE 200 MG PO (10:43)
[2024-04-10] MEDS: carvediloL 6.25 MG TABLET PO (10:43)
[2024-04-10] MEDS: OPTI-GEN TAB 1 TABLET PO (10:43)
[2024-04-10] MEDS: VITAMIN B COMPLEX CAPSULE 1 CAP PO (10:45)
[2024-04-10] MEDS: VENLAFAXINE HCL XR 75 MG CAP.ER.24H 150 MG PO (10:45)
[2024-04-10] MEDS: EMPAGLIFLOZIN 10 MG TABLET PO (10:45)
[2024-04-10] MEDS: CHOLECALCIFEROL 5,000 UNITS TABLET 5000 UNITS PO (10:46)
[2024-04-10] MEDS: APIXABAN 5 MG TABLET PO (10:46)
[2024-04-10] MEDS: ISOSORBIDE DINITRATE 10 MG TABLET PO (10:46)
[2024-04-10] MEDS: ACETAMINOPHEN 325 MG TABLET 650 MG PO (10:46)
[2024-04-10] MEDS: CALCIUM/VITAMIN D 500 MG/5 MCG (200 I.U.) TABLET PO (10:46)
[2024-04-10 11:21] LABS: Glucose Point of Care 115 mg/dl (65-105)
[2024-04-10 11:24] LABS: Potassium 4.8 mmol/L (3.4-5.0)
--- NOTE | 2024-04-10 14:11 | PM.DS ---
DS: Admitting Diagnosis Discharge Date 04/10/2024 Admitting Diagnosis Increased generalized muscle weakness, fall. DS: Discharge Diagnosis Discharge Diagnosis (1) Acute UTI: Code(s): N39.0 - Urinary tract infection, site not specified Status: Acute Assessment and Plan: - UA consistent with UTI. - Urine culture growing klebs aerogenes (Enterobacter). - IV abx Ceftriaxone and PO Bactrim completed inpatient. (2) General weakness: Code(s): R53.1 - Weakness Status: Acute Assessment and Plan: - Possibly chronic debility worsened by UTI. - Pt declined SNF placement and will go home with son. - Maintain fall precautions. (3) Acute on chronic kidney failure: Code(s): N17.9 - Acute kidney failure, unspecified; N18.9 - Chronic kidney disease, unspecified Status: Acute Assessment and Plan: - Cr stable per previous . - Avoid nephrotoxic agents. (4) Insulin dependent type 2 diabetes mellitus: Code(s): E11.9 - Type 2 diabetes mellitus without complications; Z79.4 - [facility]PC (current) use of insulin Status: Acute Assessment and Plan: - Insulin dose adjusted. (5) Polypharmacy: Code(s): Z79.899 - Other jail (current) drug therapy Status: Acute Assessment and Plan: - Consider meds review per PCP outpatient. (6) Hypothyroidism: Code(s): E03.9 - Hypothyroidism, unspecified Status: Acute Assessment and Plan: - Noted with elevated TSH with low FT4 levels. - Son bedside reports medication just started recently, within the last week. - Maintained previous home dose. - Adjust meds as needed after 6-8 weeks. (7) Restless leg syndrome: Code(s): G25.81 - Restless legs syndrome Status: Acute Assessment and Plan: Continue pramipexole. (8) Chronic anemia: Code(s): D64.9 - Anemia, unspecified Status: Acute Assessment and Plan: - Hgb stable inpatient. - Monitor for bleeding signs with anticoagulation. (9) Paroxysmal atrial fibrillation: Code(s): I48.0 - Paroxysmal atrial fibrillation Status: Chronic Assessment and Plan: Continue Eliquis and Amiodarone. (10) Mixed hyperlipidemia: Code(s): E78.2 - Mixed hyperlipidemia Status: Acute Assessment and Plan: Continue statin. (11) Memory loss: Code(s): R41.3 - Other amnesia Status: Acute Assessment and Plan: - Possibly chronic and worsened by UTI. - Outpatient f/u with PCP for possible dementia. (12) Altered mental status: Qualifiers: Altered mental status type: unspecified Qualified Code(s): R41.82 - Altered mental status, unspecified Code(s): R41.82 - Altered mental status, unspecified Status: Resolved Assessment and Plan: - Possible chronic and worsened by acute infection and possibly polypharmacy. - Consider meds review. - Safety precautions and assist with care. (13) Diastolic heart failure: Code(s): I50.30 - Unspecified diastolic (congestive) heart failure Status: Acute Assessment and Plan: Continue diuresis with bumetanide. Strict I & O's with daily weights. DS: Summary Hospital Course Reason for hospitalization: Increased generalized muscle weakness and fall. Hospital Course: Patient is a 78yo female who presented to the ER with increased generalized muscle weakness and a fall episode. Initial work-up done revealed pt had a UTI and ALBERTINA on her CKD. Her urine culture grew Klebs aerogenes and she has been treated with Ceftriaxone and Bactrim that were completed inpatient. She complained of left ankle pain and imaging done only showed Moderate midfoot osteoarthritis that was managed with PRN pain meds. Patient still with some confusion episodes possibly due to infection vs polypharmacy vs/+ underlying dementia. Patient's head CT revealed a normal aging brain, and CXR with no infiltrates. Patient worked w
== END 2024-04-10 12:15 | disposition home health service (06) | DRG 690 ==
LOC: ANHED 13:36 → ANH3MEDSUR 14:16
PROVIDERS: Internal Medicine; Nurse Practitioner Acute Care; Physician Assistant; Student in an Organized Health Care Education/Training Program; Admitting Provider General Practice; Emergency Provider Emergency Medicine; PCP Family Medicine; Visit Provider Nurse Practitioner Adult Health
DX: N39.0 Urinary tract infection, site not specified (principal); N17.9 Acute kidney failure, unspecified; I13.0 Hypertensive heart and chronic kidney disease with heart failure and stage 1 through stage 4 chronic kidney disease, or unspecified chronic kidney disease; I50.32 Chronic diastolic (congestive) heart failure; Z68.41 Body mass index [BMI] 40.0-44.9, adult; B96.89 Other specified bacterial agents as the cause of diseases classified elsewhere; R41.3 Other amnesia; T50.995A Adverse effect of other drugs, medicaments and biological substances, initial encounter; E11.22 Type 2 diabetes mellitus with diabetic chronic kidney disease; N18.32 Chronic kidney disease, stage 3b; E03.9 Hypothyroidism, unspecified; G25.81 Restless legs syndrome; I48.0 Paroxysmal atrial fibrillation; D64.9 Anemia, unspecified; G47.33 Obstructive sleep apnea (adult) (pediatric); E78.2 Mixed hyperlipidemia; M17.10 Unilateral primary osteoarthritis, unspecified knee; H35.30 Unspecified macular degeneration; E11.42 Type 2 diabetes mellitus with diabetic polyneuropathy; F41.9 Anxiety disorder, unspecified; M51.37 Other intervertebral disc degeneration, lumbosacral region; F32.A Depression, unspecified; E66.01 Morbid (severe) obesity due to excess calories; Z85.3 Personal history of malignant neoplasm of breast; Z79.01 Long term (current) use of anticoagulants; Z79.4 Long term (current) use of insulin; Z96.641 Presence of right artificial hip joint; Z90.49 Acquired absence of other specified parts of digestive tract; Z96.1 Presence of intraocular lens; Z98.42 Cataract extraction status, left eye; Z98.41 Cataract extraction status, right eye; Z95.5 Presence of coronary angioplasty implant and graft; R29.6 Repeated falls; Z91.148 Patient's other noncompliance with medication regimen for other reason; Z79.899 Other long term (current) drug therapy
CPT/HCPCS: 36415; 70450; 71046; 73600; 80048; 80053; 80164; 81001; 82550; 82607; 82746; 82948; 83540; 83550; 83880; 84132; 84439; 84443; 85025; 85027; 85610; 85730; 87077; 87086; 87088; 87186; 87635; 87637; 93306; 96365; 97110; 97116; 97161; 97165; 97530; 97535; 99285; A9270; G0378; J0696; J1815; J7030

== ENCOUNTER 2024-04-12 06:43 | Inpatient (IN) | payer MEDICARE, SELFPAY ==
[2024-04-12] VITALS (16 sets, daily range): BP systolic 144–172; BP diastolic 59–86; PULSE 63–77; RESP 12–19; TEMP 36.4–37.1; O2SAT 97–100; BMI 42.9
[2024-04-12 06:53] LABS: Glucose Point of Care 162 mg/dl (65-105)
--- NOTE | 2024-04-12 06:56 | ECG_ITS ---
Test Date: 2024-04-12 06:50:26 Measurements Intervals [place] Rate: 75 P: 87 W[place]: 200 QRS: 61 QRSD: 94 T: 70 QT: 422 QTc: 471 Interpretive Statements SINUS RHYTHM No previous ECG available for comparison Electronically Signed On 04-12-2024 14:47:45 CDT by Zhanna Alfonso M.D.
--- NOTE | 2024-04-12 07:11 | ED.GENADULT ---
HPI - General Adult General Chief complaint: Recheck/Abnormal Lab/Rx Stated complaint: overdose on insulin Time Seen by Provider: 04/12/24 06:55 History of Present Illness HPI narrative: 78-year-old female with history type 2 diabetes presents to the emergency department for evaluation after an intentional overdose. Patient took approximately 600 units of her Humalog at an unknown time last night in order to kill herself. Patient denies any prior history of suicide attempts. Patient states he does have a prior history of psychiatric hospitalization but would not provide details. Patient states she is under a lot of stress currently. Patient was found by her son and EMS was called. Related Data Home Medications Medication Instructions Recorded Confirmed divalproex 500 mg tablet,delayed 500 mg PO HS 03/06/22 04/12/24 release (Depakote) vit C 250 mg-E 90 mg-zinc 40 1 tablet PO Q12H 03/27/23 04/12/24 mg-copper 1 [id number] chew tablet (PreserVision AREDS-2) evolocumab 140 mg/mL subcutaneous 140 mg subcut Q14D 07/13/23 04/12/24 pen injector (Repatha SureClick) apixaban 5 mg tablet (Eliquis) 5 mg PO Q12H 10/07/23 04/12/24 allopurinol 100 mg tablet 100 mg PO HS 04/04/24 04/12/24 (Zyloprim) amiodarone 200 mg tablet 200 mg PO HS 04/04/24 04/12/24 bumetanide 2 mg tablet 2 mg PO Q12H 04/04/24 04/12/24 bupropion HCl 150 mg 24 hr tablet, 150 mg PO HS 04/04/24 04/12/24 extended release (Wellbutrin XL) buspirone 15 mg tablet 15 mg PO HS 04/04/24 04/12/24 calcium carbonate 600 mg-vitamin 1 tablet PO DAILY 04/04/24 04/12/24 D3 5 mcg (200 unit) tablet carvedilol 6.25 mg tablet 6.25 mg PO Q12H 04/04/24 04/12/24 famotidine 20 mg tablet 20 mg PO HS 04/04/24 04/12/24 gabapentin 100 mg capsule 100 mg PO Q12H 04/04/24 04/12/24 (Neurontin) isosorbide dinitrate 10 mg tablet 10 mg PO Q12H 04/04/24 04/12/24 levothyroxine 75 mcg tablet 75 mcg PO 0604/04/24 04/12/24 (Euthyrox) memantine 10 mg tablet 10 mg PO Q12H 04/04/24 04/12/24 nystatin 100,000 unit/gram topical 1 applic topical BID PRN Rash 04/04/24 04/12/24 ointment pramipexole 0.25 mg tablet 0.5 mg PO HS 04/04/24 04/12/24 trospium 20 mg tablet 20 mg PO Q12H 04/04/24 04/12/24 venlafaxine 150 mg 300 mg PO DAILY 04/04/24 04/12/24 capsule,extended release 24 hr (Effexor XR) vitamin B complex 1 tablet PO DAILY 04/04/24 04/12/24 Allergies Allergy/AdvReac Type Severity Reaction Status Date / Time [id number] Reductase Allergy Intermediate Other Verified 04/12/24 06:56 Inhibitor pseudoephedrine Allergy Unknown Hives Verified 04/12/24 06:56 NSAIDS (Non-Steroidal AdvReac Intermediate Other Verified 04/12/24 06:56 Anti-Inflamma oxycodone AdvReac Intermediate Itching Verified 04/12/24 06:56 atenolol AdvReac Mild Muscle Pain Verified 04/12/24 06:56 exenatide [From Bydureon] AdvReac Mild Diarrhea Verified 04/12/24 06:56 hydrocodone AdvReac Mild Itching Verified 04/12/24 06:56 [From Panlor (hydrocodone-acetamin)] prochlorperazine AdvReac Mild Itching Verified 04/12/24 06:56 [From Compazine] rice AdvReac Mild Heartburn Verified 04/12/24 06:56 Review of Systems Review of Systems: All systems reviewed & are unremarkable except as noted in HPI and below PMFSH Past Medical History Medical History Anemia Anxiety Ataxia Breast cancer Chronic anticoagulation Degeneration of lumbar or lumbosacral intervertebral disc Depression Diabetes mellitus type 2 in obese (~1989) A1c 10 on July 21, 2022 Diabetic peripheral neuropathy Diastolic heart failure Echocardiogram 05/2022: Normal left ventricular systolic function EF 65-70%, mildly increased left ventricular wall thickness, diastolic dysfunction grade 2, moderately elevated E/E 20, increased global longitudinal strain and-18%, mild mitral valve regurgitation, mild tricuspid regurgitation, moderate pulmonary hypertension with RVSP o
[2024-04-12 07:49] LABS: Acetaminophen < 10 ug/mL (10-30); Ethanol < 10 mg/dL (<10); Salicylate < 1.0 mg/dL (2-20)
[2024-04-12 07:50] LABS: Basophils Percent Auto 0.6 % (0.2-1.2); Eosinophils Absolute Auto 0.5 K/mm3 (0-0.3); Eosinophils Percent Auto 6.7 % (0-4.4); Hematocrit 31.8 % (37.0-47.0); Hemoglobin 9.7 g/dL (12.0-15.0); Immature Granulocyte Absolute 0.04 K/mm3 (0.00-0.031); Immature Granulocyte Percent A 0.6 % (0-0.5); Lymphocytes Absolute Auto 1.95 K/mm3 (0.9-3.2); Lymphocytes Percent Auto 27.6 % (18.3-44.2); Mean Corpuscular HGB Conc 30.5 g/dl (32-36); Mean Corpuscular Hemoglobin 29.8 pg (26-34); Mean Corpuscular Volume 97.5 fl (80-100); Monocytes Absolute Auto 0.3 K/mm3 (0.1-0.6); Monocytes Percent Auto 4.8 % (2.6-8.5); Neutrophils Absolute Auto 4.2 K/mm3 (1.3-6.7); Neutrophils Percent Auto 59.7 % (45.5-73.1); Platelet Count Result 217 k/mm3 (150-375); Red Blood Count 3.26 M/mm3 (4.2-5.4); Red Cell Distribution Width 16.1 % (11.5-14.5); White Blood Count 7.1 K/mm3 (4.5-10.0)
--- NOTE | 2024-04-12 08:02 | PC.NURSE ---
[place] Poison Control Humalog peaks 1-2 hrs Duration of 3-4 unsure if story makes sense, belief is that pt would more than likely crashed last night
[2024-04-12 08:05] LABS: Alanine Aminotransferase 36 U/L (6-35); Albumin Level 3.7 g/dL (3.5-5.1); Alkaline Phosphatase 88 U/L (38-126); Anion Gap 9 mmol/L (4-12); Aspartate Amino Transferase 43 U/L (14-36); Bilirubin,Total 0.3 mg/dL (0.2-1.3); Blood Urea Nitrogen 45 mg/dL (7-17); Calcium 9.2 mg/dL (8.4-10.2); Carbon Dioxide 28 mmol/L (22-30); Chloride 101 mmol/L (98-107); Estimated CRCL calculation 22 ml/min; Estimated Glomerular Filt Rate 19; Glucose 128 mg/dL (65-110); Magnesium 2.3 mg/dL (1.6-2.3); Potassium 3.9 mmol/L (3.4-5.0); Sodium 138 mmol/L (137-145)
[2024-04-12 08:16] LABS: Influenza A QL RT-PCR Negative (Negative); Influenza B QL RT-PCR Negative (Negative); RSV RNA, RT-PCR Negative (Negative); SARS-CoV-2 RNA PCR Negative (Negative)
[2024-04-12 09:06] LABS: Glucose Point of Care 38 mg/dl (65-105)
[2024-04-12 09:06] LABS: Glucose Point of Care 127 mg/dl (65-105)
[2024-04-12 09:06] LABS: Glucose Point of Care 63 mg/dl (65-105)
--- NOTE | 2024-04-12 09:07 | PC.NURSE ---
check pt's BS. 38. EDP made aware. VORB 25g of 50% dextrose given IV push.
[2024-04-12] MEDS: DEXTROSE 50% 25 GM/50 ML SYRINGE ×2 (09:09→10:45)
--- NOTE | 2024-04-12 09:16 | PC.NURSE ---
pt eating breakfast tray at this time.
[2024-04-12 09:17] LABS: Add Urine Microscopic? NO; Appearance Urine Clear (Clear); Bilirubin Urine Negative (Negative); Blood Urine Negative (Negative); Color Urine Yellow (Yellow); Glucose Urine UA 2+ mg/dL (Negative); Ketones Urine Negative (Negative); Leukocyte Esterase Ur Negative LEU/UL (Negative); Nitrate Urine Negative (Negative); Protein Urine Negative (Negative); Specific Grav Ur 1.019 (1.001-1.035); Urobilinogen Urine 0.2 mg/dL (<2.0)
[2024-04-12 09:21] LABS: Amphetamine Screen Urine Negative (Negative); Barbiturate Screen Urine Negative (Negative); Benzodiazepines Screen Urine Negative (Negative); Cannabinoid Screen Urine Negative (Negative); Cocaine Screen Urine Negative (Negative); Methadone Screen Urine Negative (Negative); Opiate Screen Urine Negative (Negative); Phencyclidine Screen Urine Negative (Negative)
[2024-04-12] MEDS: DEXTROSE 10% 1,000 ML 50 ML IV CONT (09:32)
[2024-04-12 09:53] LABS: Free T4 Free Thyroxine Reflex 0.74 ng/dL (0.78-2.19)
[2024-04-12 10:47] LABS: Glucose Point of Care 54 mg/dl (65-105)
--- NOTE | 2024-04-12 10:48 | PC.NURSE ---
EDP made aware pt's Blood sugar is 54. per EDP Lee, another ampule of 25grams of D10 given and 10% dextrose IV drip titrated to 100mL/hr. VORB.
[2024-04-12 11:35] LABS: Glucose Point of Care 63 mg/dl (65-105)
[2024-04-12 11:50] LABS: Glucose Point of Care 88 mg/dl (65-105)
[2024-04-12 12:12] LABS: Glucose Point of Care 58 mg/dl (65-105)
[2024-04-12] MEDS: DEXTROSE 50% 25 GM/50 ML SYRINGE IV PUSH (12:13)
--- NOTE | 2024-04-12 12:15 | ADMGEN ---
This patient, Aleksandra Berman, was admitted to Intensive Care Unit-2. Patient/family oriented to hospital policies and general routines including ID bracelet, bed and alarms, visiting hours, pain management, procedures, bathroom and other care routines, personal items, smoking policy, room service/diet, and visiting hours. Information on how to activate the Rapid Response Team has been discussed. Patient/Family are encouraged to report perceived risks to care and to ask questions if they do not understand what they are told or what they should do.
[2024-04-12 12:36] LABS: Glucose Point of Care 94 mg/dl (65-105)
[2024-04-12] MEDS: LIDOCAINE HCL 1% PF INJ 5 ML VIAL INFILTRATE (12:50)
[2024-04-12 13:20] LABS: Glucose Point of Care 81 mg/dl (65-105)
--- NOTE | 2024-04-12 13:23 | WPDCNINT ---
Assessment and Plan Assessment and plan (1) Intentional overdose of insulin: Code(s): T38.3X2A - Poisoning by insulin and oral hypoglycemic [antidiabetic] drugs, intentional self-harm, initial encounter Status: Acute Assessment and Plan: Patient presented to the ED after a taking 2 syringes of Humalog, intentionally to harm herself -patient was hypoglycemic in the ER, requiring D5% infusion and which was escalated to D10% infusion -remains hypoglycemic, PICC line was inserted and will start patient on D20% infusion -will order glucagon -continue to monitor blood sugars closely (2) Suicidal behavior: Code(s): R45.89 - Other symptoms and signs involving emotional state Status: Acute Assessment and Plan: Patient continues to be suicidal at this time -suicidal precautions -bedside sitter -once she is medically stable will have care coordination at crisis management evaluated the patient -she will requires as psychiatry unit placement -I also given an option for hospice (3) Atrial fibrillation: Qualifiers: Atrial fibrillation type: unspecified Qualified Code(s): I48.91 - Unspecified atrial fibrillation Code(s): I48.91 - Unspecified atrial fibrillation Status: Acute Assessment and Plan: History of atrial fibrillation, will continue Eliquis, amiodarone and carvedilol -currently in sinus rhythm, rate controlled (4) CHF (congestive heart failure): Qualifiers: Heart failure type: diastolic Heart failure chronicity: acute on chronic Qualified Code(s): I50.33 - Acute on chronic diastolic (congestive) heart failure Code(s): I50.9 - Heart failure, unspecified Status: Acute Assessment and Plan: History of heart failure, continue Coreg -will hold Bumex since her creatinine is elevated (5) Diabetes: Qualifiers: Diabetes mellitus type: type 2 Diabetes mellitus buttermaker helper insulin use: with buttermaker helper use Diabetes mellitus complication status: with hyperglycemia Qualified Code(s): E11.65 - Type 2 diabetes mellitus with hyperglycemia; Z79.4 - exterminator helper (current) use of insulin Code(s): E11.9 - Type 2 diabetes mellitus without complications Status: Acute Assessment and Plan: Accu-Cheks and sliding scale insulin Plan DVT prophylaxis: Eliquis Stress ulcer prophylaxis: Famotidine Nutrition: Diabetic and heart healthy diet Code Status: Do not resuscitate Critical Care Time Spent: 47 minutes Due to a high probability of clinically significant, life threatening deterioration, the patient required my highest level of preparedness to intervene emergently and I personally spent this critical care time directly and personally managing the patient. This critical care time included obtaining a history; examining the patient; pulse oximetry; ordering and review of studies; arranging urgent treatment with development of a management plan; evaluation of patient's response to treatment; frequent reassessment; and discussions with other providers. It was exclusive of separately billable procedures and treating other patients and teaching time. Please see Assessment and Plan section and the rest of the note for further information on patient assessment and treatment This dictation may have been done utilizing a voice recognition system. Attempts have been made to correct errors. However, there may be uncorrected grammatical, spelling, and recognitions errors present. Cinder Worker Consult Note Consult date: 04/12/24 Reason for consult: Intentional Humalog overdose, suicidal ideation/behavior HPI: Aleksandra Berman is a 78 year old female anxiety, anemia, history of breast cancer, EGD, diabetes type 2, diastolic heart failure grade 2, diabetic neuropathy, essential hypertension, hypothyroidism, macular degeneration, hyperlipidemia, ANDREA on CPAP, paroxysmal AFib on anticoagulation since, restless leg syndrome, stage 3 chronic kidney diseas
[2024-04-12] MEDS: DEXTROSE 20% 500 ML 75 ML IV CONT (13:40)
--- NOTE | 2024-04-12 13:48 | PM.IMHP ---
H&P: HPI History of Present Illness Date/Time: 04/12/24 13:48 Chief Complaint: Suicidal attempt/Overdose on Insulin Narrative: Aleksandra Berman is a 78 year old female anxiety, anemia, history of breast cancer, EGD, diabetes type 2, diastolic heart failure grade 2, diabetic neuropathy, essential hypertension, hypothyroidism, macular degeneration, hyperlipidemia, ANDREA on CPAP, paroxysmal AFib on anticoagulation since, restless leg syndrome, stage 3 chronic kidney disease presented the ED on 04/12/2024 for evaluation of intentional overdose. Patient reported last evening that she attempted to kill herself injecting 2 vials her insulin however her DEXA, was left on which her son has access to and alerted him to for hypoglycemia. Patient has no previous suicidal attempts however was recently discharged from [facility] and noted to some depression with safe discharge plan in place. Patient reported she feels as though she currently has nothing to live for and she is a burden to her son. Patient was hypoglycemic upon arrival to the emergency department and given D50 IV pushes in started on dextrose 5% however she continued to be hypoglycemic and was increased to dextrose 10%. Patient reported her health has been getting worse and she feels her son would be better off if he was no longer here. Patient denied any chest pain, shortness a breath, nausea, vomiting did report some BLE pain due to neuropathy. WBC count, hemoglobin and platelets were stable, electrolytes were within normal limits, BUN is 45, creatinine of 2.50 mild elevation in AST and ALT. Total bilirubin is normal. UA was NOT reflective of UTI. COVID-19, influenza and RSV are negative. Acetaminophen, salicylates and alcohol levels are within normal limits, urine tox screen was negative. Patient was admitted to the ICU for further evaluation and treatment of insulin overdose and suicidal attempt. Q.1 hour Accu-Cheks with continuous dextrose infusion and sitter at bedside initiated. Review of Systems Review of Systems: All systems reviewed & are unremarkable except as noted in HPI and below Psychiatric: Psychiatric: Reports depression and Reports suicidal ideation [facility] Past Medical History Medical History Anemia Anxiety Ataxia Breast cancer Chronic anticoagulation Degeneration of lumbar or lumbosacral intervertebral disc Depression Diabetes mellitus type 2 in obese (~1989) A1c 10 on July 21, 2022 Diabetic peripheral neuropathy Diastolic heart failure Echocardiogram 05/2022: Normal left ventricular systolic function EF 65-70%, mildly increased left ventricular wall thickness, diastolic dysfunction grade 2, moderately elevated E/E 20, increased global longitudinal strain and-18%, mild mitral valve regurgitation, mild tricuspid regurgitation, moderate pulmonary hypertension with RVSP of [address] Ann History of stress test Hypertension Hypothyroidism Knee osteoarthritis Macular degeneration Minimal cognitive impairment Mixed hyperlipidemia Normal esophagogastroduodenoscopy (EGD) Obstructive sleep apnea on CPAP Paroxysmal atrial fibrillation Restless leg syndrome Skin cancer Stage 3b chronic kidney disease (CKD) Dr. Eduardo Venous stasis dermatitis Surgical History Surgical History H/O cardiac catheterization H/O endoscopy H/O heart artery stent History of cholecystectomy History of reconstruction of right breast History of right hip replacement (~2017) History of right mastectomy Status post cataract extraction of both eyes with insertion of intraocular lens Family History Family History Father Hypertension COPD (chronic obstructive pulmonary disease) Heart disease Diabetes mellitus Mother Lung cancer Depression Sibling A
[2024-04-12] MEDS: APIXABAN 5 MG TABLET PO ×2 (14:11→23:50)
[2024-04-12] MEDS: GLUCAGON FOR INJ 1 MG VIAL IV CONT (14:15)
[2024-04-12 14:16] LABS: Glucose Point of Care 54 mg/dl (65-105)
[2024-04-12] MEDS: CENTRAL LINE FLUSH 10 ML IV PUSH ×2 (14:31→20:59)
[2024-04-12 14:32] LABS: Glucose Point of Care 59 mg/dl (65-105)
[2024-04-12 14:49] LABS: Glucose Point of Care 80 mg/dl (65-105)
[2024-04-12 15:08] LABS: MRSA (PCR) NOT DETECTED (NOT DETECTE)
[2024-04-12 15:16] LABS: Toxigenic C. Diff POSITIVE (NEGATIVE)
[2024-04-12 15:47] LABS: Glucose Point of Care 109 mg/dl (65-105)
--- NOTE | 2024-04-12 17:26 | PC.NURSE ---
POC glucose 95 mg/dl. Not uploaded into [employer] per glucometer.
[2024-04-12] MEDS: VANCOMYCIN HCL 250 MG ORAL CAPSULE PO ×2 (17:27→23:50)
[2024-04-12 17:44] LABS: Glucose Point of Care 95 mg/dl (65-105)
--- NOTE | 2024-04-12 17:45 | PC.NURSE ---
Spoke with [place], Poison Control. No fuurther recommendations at this time. Will call back tomorrow.
[2024-04-12 18:41] LABS: Glucose Point of Care 115 mg/dl (65-105)
[2024-04-12] MEDS: DEXTROSE 20% 500 ML 100 ML IV CONT (18:59)
[2024-04-12 20:18] LABS: Glucose Point of Care 99 mg/dl (65-105)
[2024-04-12] MEDS: DIVALPROEX SODIUM DR 250 MG TABEC 500 MG PO (20:41)
[2024-04-12] MEDS: FAMOTIDINE 20 MG TABLET PO (20:41)
[2024-04-12] MEDS: carvediloL 6.25 MG TABLET PO (20:41)
[2024-04-12] MEDS: GABAPENTIN 100 MG CAPSULE PO (20:41)
[2024-04-12] MEDS: MEMANTINE 10 MG TABLET PO (20:41)
[2024-04-12] MEDS: buPROPion HCL XL (24 HR) 150 MG TABCR PO (20:41)
[2024-04-12] MEDS: AMIODARONE HCL 200 MG TABLET PO (20:41)
[2024-04-12] MEDS: PRAMIPEXOLE 0.5 MG TABLET PO (20:59)
[2024-04-12 21:04] LABS: Glucose Point of Care 116 mg/dl (65-105)
[2024-04-12 22:10] LABS: Glucose Point of Care 126 mg/dl (65-105)
[2024-04-12 23:23] LABS: Glucose Point of Care 128 mg/dl (65-105)
[2024-04-12 23:55] LABS: Glucose Point of Care 150 mg/dl (65-105)
[2024-04-13] VITALS (22 sets, daily range): BP systolic 114–164; BP diastolic 41–65; PULSE 64–81; RESP 12–20; TEMP 36.4–36.8; O2SAT 90–100
[2024-04-13] MEDS: DEXTROSE 20% 500 ML 100 ML IV CONT (00:01)
[2024-04-13 01:06] LABS: Glucose Point of Care 206 mg/dl (65-105)
[2024-04-13 02:08] LABS: Glucose Point of Care 255 mg/dl (65-105)
[2024-04-13 03:03] LABS: Glucose Point of Care 261 mg/dl (65-105)
[2024-04-13 04:45] LABS: Glucose Point of Care 241 mg/dl (65-105)
[2024-04-13 05:29] LABS: Glucose Point of Care 227 mg/dl (65-105)
[2024-04-13 05:56] LABS: Basophils Percent Auto 0.5 % (0.2-1.2); Eosinophils Absolute Auto 0.7 K/mm3 (0-0.3); Hematocrit 32.2 % (37.0-47.0); Hemoglobin 10.1 g/dL (12.0-15.0); Immature Granulocyte Absolute 0.03 K/mm3 (0.00-0.031); Immature Granulocyte Percent A 0.4 % (0-0.5); Lymphocytes Absolute Auto 1.88 K/mm3 (0.9-3.2); Lymphocytes Percent Auto 22.2 % (18.3-44.2); Mean Corpuscular HGB Conc 31.4 g/dl (32-36); Mean Corpuscular Hemoglobin 30.4 pg (26-34); Mean Platelet Volume 9.4 fl (7.4-10.4); Monocytes Absolute Auto 0.5 K/mm3 (0.1-0.6); Monocytes Percent Auto 5.9 % (2.6-8.5); Neutrophils Absolute Auto 5.3 K/mm3 (1.3-6.7); Platelet Count Result 219 k/mm3 (150-375); Red Blood Count 3.32 M/mm3 (4.2-5.4); Red Cell Distribution Width 15.9 % (11.5-14.5); White Blood Count 8.5 K/mm3 (4.5-10.0)
[2024-04-13] MEDS: LEVOTHYROXINE SODIUM 75 MCG TABLET PO (05:56)
[2024-04-13] MEDS: VANCOMYCIN HCL 250 MG ORAL CAPSULE PO (05:56)
[2024-04-13] MEDS: CENTRAL LINE FLUSH 10 ML IV PUSH ×3 (05:56→21:00)
[2024-04-13 06:12] LABS: Alanine Aminotransferase 31 U/L (6-35); Albumin Level 3.4 g/dL (3.5-5.1); Alkaline Phosphatase 98 U/L (38-126); Anion Gap 5 mmol/L (4-12); Aspartate Amino Transferase 22 U/L (14-36); Bilirubin,Total 0.2 mg/dL (0.2-1.3); Blood Urea Nitrogen 28 mg/dL (7-17); Calcium 8.9 mg/dL (8.4-10.2); Carbon Dioxide 30 mmol/L (22-30); Chloride 101 mmol/L (98-107); Estimated CRCL calculation 25 ml/min; Estimated Glomerular Filt Rate 22; Glucose 238 mg/dL (65-110); Magnesium 2.2 mg/dL (1.6-2.3); Phosphorus 2.4 mg/dL (2.5-4.5); Potassium 4.7 mmol/L (3.4-5.0); Sodium 136 mmol/L (137-145)
[2024-04-13 07:02] LABS: Glucose Point of Care 220 mg/dl (65-105)
[2024-04-13] MEDS: INSULIN ASPART (*BKC) 100 UNITS/ML SUB-Q ×6 (08:37→21:00)
[2024-04-13] MEDS: VENLAFAXINE HCL XR 75 MG CAP.ER.24H 300 MG PO (08:39)
[2024-04-13] MEDS: ISOSORBIDE DINITRATE 10 MG TABLET PO ×2 (08:39→20:59)
[2024-04-13] MEDS: MEMANTINE 10 MG TABLET PO ×2 (08:39→20:59)
[2024-04-13] MEDS: APIXABAN 5 MG TABLET PO ×2 (08:39→20:59)
[2024-04-13] MEDS: POTASSIUM PHOS/SODIUM PHOS 250 MG TABLET PO (08:39)
[2024-04-13] MEDS: GABAPENTIN 100 MG CAPSULE PO ×2 (08:39→20:59)
[2024-04-13] MEDS: carvediloL 6.25 MG TABLET PO ×2 (08:40→20:59)
--- NOTE | 2024-04-13 08:50 | WPDINTPN ---
Progress Note: A&P Assessment and Plan (1) Intentional overdose of insulin: Code(s): T38.3X2A - Poisoning by insulin and oral hypoglycemic [antidiabetic] drugs, intentional self-harm, initial encounter Status: Acute Assessment and Plan: Patient presented to the ED after a taking 2 syringes of Humalog, intentionally to harm herself -patient was hypoglycemic in the ER, requiring D5% infusion and which was escalated to D10% infusion -remained hypoglycemic in ICU, PICC line was inserted and will start patient on D20% infusion -patient was also given IV glucagon -04/13: Blood sugars have been elevated, D20 drip was discontinued -continue to monitor blood sugars closely (2) Suicidal behavior: Code(s): R45.89 - Other symptoms and signs involving emotional state Status: Acute Assessment and Plan: Patient continues to be suicidal at this time -suicidal precautions -bedside sitter -once she is medically stable will have care coordination at crisis management evaluated the patient -she will requires as psychiatry unit placement -patient stated that she does not want to come to the hospital anymore, I did give her the option for hospice which she said she would like to consider (3) Atrial fibrillation: Qualifiers: Atrial fibrillation type: unspecified Qualified Code(s): I48.91 - Unspecified atrial fibrillation Code(s): I48.91 - Unspecified atrial fibrillation Status: Acute Assessment and Plan: History of atrial fibrillation, will continue Eliquis, amiodarone and carvedilol -currently in sinus rhythm, rate controlled (4) CHF (congestive heart failure): Qualifiers: Heart failure type: diastolic Heart failure chronicity: acute on chronic Qualified Code(s): I50.33 - Acute on chronic diastolic (congestive) heart failure Code(s): I50.9 - Heart failure, unspecified Status: Acute Assessment and Plan: History of heart failure, continue Coreg -restarted Bumex and isosorbide dinitrate (5) Diabetes: Qualifiers: Diabetes mellitus type: type 2 Diabetes mellitus group home insulin use: with terminal operator use Diabetes mellitus complication status: with hyperglycemia Qualified Code(s): E11.65 - Type 2 diabetes mellitus with hyperglycemia; Z79.4 - terminal operator (current) use of insulin Code(s): E11.9 - Type 2 diabetes mellitus without complications Status: Acute Assessment and Plan: Accu-Cheks and sliding scale insulin -check hemoglobin A1c -if blood sugars remain elevated will start home Lantus (6) C. difficile diarrhea: Code(s): A04.72 - Enterocolitis due to Clostridium difficile, not specified as recurrent Status: Acute Assessment and Plan: Patient presented with diarrhea, C diff toxin PCR was positive -patient started on p.o. vancomycin Plan DVT prophylaxis: Eliquis Stress ulcer prophylaxis: Famotidine Nutrition: Diabetic and heart healthy diet Code Status: Do not resuscitate Critical Care Time Spent: 32 minutes Due to a high probability of clinically significant, life threatening deterioration, the patient required my highest level of preparedness to intervene emergently and I personally spent this critical care time directly and personally managing the patient. This critical care time included obtaining a history; examining the patient; pulse oximetry; ordering and review of studies; arranging urgent treatment with development of a management plan; evaluation of patient's response to treatment; frequent reassessment; and discussions with other providers. It was exclusive of separately billable procedures and treating other patients and teaching time. Please see Assessment and Plan section and the rest of the note for further information on patient assessment and treatment This dictation may have been done utilizing a voice recognition system. Attempts have been made to correct errors. However, there ma
[2024-04-13 10:04] LABS: Hemoglobin A1C 8.7 % (<5.7)
--- NOTE | 2024-04-13 10:27 | PC.NURSE ---
Spoke with Princess from Poison control, updated toxicology lab values and blood glucose trends, current infusions and plans to downgrade to medical status. Poison control signing off at this time.
[2024-04-13 11:39] LABS: Glucose Point of Care 273 mg/dl (65-105)
[2024-04-13] MEDS: VANCOMYCIN HCL 125 MG ORAL CAPSULE PO ×2 (11:53→18:25)
--- NOTE | 2024-04-13 12:45 | P.PNIM_ITS ---
Progress Note: A&P Assessment and Plan (1) C. difficile diarrhea: Code(s): A04.72 - Enterocolitis due to Clostridium difficile, not specified as recurrent Status: Acute Assessment and Plan: Pt is on oral vancomycin No diarrhea reported today (2) Suicide attempt: Code(s): T14.91XA - Suicide attempt, initial encounter Status: Acute Assessment and Plan: Pt took OD of insulin (3) Intentional overdose of insulin: Code(s): T38.3X2A - Poisoning by insulin and oral hypoglycemic [antidiabetic] drugs, intentional self-harm, initial encounter Status: Acute Assessment and Plan: Pt is better now eating sugars are 200s (4) Polypharmacy: Code(s): Z79.899 - Other dedicated intermodal truck driver (current) drug therapy Status: Acute Assessment and Plan: Multiple medical problems anxiety, anemia, history of breast cancer, EGD, diabetes type 2, diastolic heart failure grade 2, diabetic neuropathy, essential hypertension, hypothyroidism, macular degeneration, hyperlipidemia, ANDREA on CPAP, paroxysmal AFib on anticoagulation since, restless leg syndrome, stage 3 chronic kidney disease, bringing her down (5) Type 2 diabetes mellitus: Code(s): E11.9 - Type 2 diabetes mellitus without complications Status: Acute Assessment and Plan: Pt on lantus. Continue to adjust insulin for optimal BG levels. (6) Acute on chronic kidney failure: Code(s): N17.9 - Acute kidney failure, unspecified; N18.9 - Chronic kidney disease, unspecified Status: Acute Assessment and Plan: - Appears to be stabilizing. Cr improving...2.4>>2.3>>2.2 today. - Continue to monitor renal function closely. - Avoid nephrotoxic agents. (7) Acute UTI: Code(s): N39.0 - Urinary tract infection, site not specified Status: Acute Assessment and Plan: - UA consistent with possible UTI. - Started on Rocephin initially and transitioned to Bactrim currently. - Still with some confusion possibly exacerbated by UTI. - Urine culture growing klebs aerogenes (Enterobacter) - start oral abx (8) Diastolic heart failure: Code(s): I50.30 - Unspecified diastolic (congestive) heart failure Status: Acute Assessment and Plan: - Appears well compensated. - Continue bumetadine. - Monitor closely for decompensation. (9) General weakness: Code(s): R53.1 - Weakness Status: Acute Assessment and Plan: - Possibly chronic debility worsened by UTI. - PT eval and treatment. (10) Restless leg syndrome: Code(s): G25.81 - Restless legs syndrome Status: Acute Assessment and Plan: Stable. Continue pramipexole. (11) Hypothyroidism: Code(s): E03.9 - Hypothyroidism, unspecified Status: Acute Assessment and Plan: - TSH elevated with low levels of FT4 observed. - Patient likely non-compliant with meds at home. - Levothyroxine dose slightly increased inpatient. - Pt encouraged with meds compliance. (12) Chronic anemia: Code(s): D64.9 - Anemia, unspecified Status: Acute Assessment and Plan: - Hgb appears stable per previous labs reviewed. - No obvious signs of bleeding noted. - Continue to monitor Hgb closely. (13) Frequent falls: Code(s): R29.6 - Repeated falls Status: Acute Assessment and Plan: - Likely 2/2 debility and worsened by acute infection. - PT eval and treatment. (14) Minimal cognitive impairment: Code(s): G31.84 - Mild cognitive
--- NOTE | 2024-04-13 15:23 | PM.DS ---
DS: Discharge Diagnosis Discharge Diagnosis (1) C. difficile diarrhea: Code(s): A04.72 - Enterocolitis due to Clostridium difficile, not specified as recurrent Status: Acute Assessment and Plan: Pt is on oral vancomycin No diarrhea reported today (2) Suicide attempt: Code(s): T14.91XA - Suicide attempt, initial encounter Status: Acute Assessment and Plan: Pt took OD of insulin (3) Intentional overdose of insulin: Code(s): T38.3X2A - Poisoning by insulin and oral hypoglycemic [antidiabetic] drugs, intentional self-harm, initial encounter Status: Acute Assessment and Plan: Pt is better now eating sugars are 200s (4) Polypharmacy: Code(s): Z79.899 - Other exterminator helper termite (current) drug therapy Status: Acute Assessment and Plan: Multiple medical problems anxiety, anemia, history of breast cancer, EGD, diabetes type 2, diastolic heart failure grade 2, diabetic neuropathy, essential hypertension, hypothyroidism, macular degeneration, hyperlipidemia, ANDREA on CPAP, paroxysmal AFib on anticoagulation since, restless leg syndrome, stage 3 chronic kidney disease, bringing her down (5) Type 2 diabetes mellitus: Code(s): E11.9 - Type 2 diabetes mellitus without complications Status: Acute Assessment and Plan: Pt on lantus. Continue to adjust insulin for optimal BG levels. (6) Acute on chronic kidney failure: Code(s): N17.9 - Acute kidney failure, unspecified; N18.9 - Chronic kidney disease, unspecified Status: Acute Assessment and Plan: - Appears to be stabilizing. Cr improving...2.4>>2.3>>2.2 today. - Continue to monitor renal function closely. - Avoid nephrotoxic agents. (7) Acute UTI: Code(s): N39.0 - Urinary tract infection, site not specified Status: Acute Assessment and Plan: - UA consistent with possible UTI. - Started on Rocephin initially and transitioned to Bactrim currently. - Still with some confusion possibly exacerbated by UTI. - Urine culture growing klebs aerogenes (Enterobacter) - start oral abx (8) Diastolic heart failure: Code(s): I50.30 - Unspecified diastolic (congestive) heart failure Status: Acute Assessment and Plan: - Appears well compensated. - Continue bumetadine. - Monitor closely for decompensation. (9) General weakness: Code(s): R53.1 - Weakness Status: Acute Assessment and Plan: - Possibly chronic debility worsened by UTI. - PT eval and treatment. (10) Restless leg syndrome: Code(s): G25.81 - Restless legs syndrome Status: Acute Assessment and Plan: Stable. Continue pramipexole. (11) Hypothyroidism: Code(s): E03.9 - Hypothyroidism, unspecified Status: Acute Assessment and Plan: - TSH elevated with low levels of FT4 observed. - Patient likely non-compliant with meds at home. - Levothyroxine dose slightly increased inpatient. - Pt encouraged with meds compliance. (12) Chronic anemia: Code(s): D64.9 - Anemia, unspecified Status: Acute Assessment and Plan: - Hgb appears stable per previous labs reviewed. - No obvious signs of bleeding noted. - Continue to monitor Hgb closely. (13) Frequent falls: Code(s): R29.6 - Repeated falls Status: Acute Assessment and Plan: - Likely 2/2 debility and worsened by acute infection. - PT eval and treatment. (14) Minimal cognitive impairment: Code(s): G31.84 - Mild cognitive impairment of uncertain or unknown etiology Status: Acute Assessment and Plan: - Appears chronic but possibly worsened by acute infection and possibly polypharmacy. (15) Paroxysmal atrial fibrillation: Code(s): I48.0 - Paroxysmal atrial fibrillation Status: Chronic Assessment and Plan: - Patient currently not on tele monitoring. - Continue amiodarone and Eliquis. (16)
--- NOTE | 2024-04-13 16:27 | PHAR ---
REPATHA SURECLICK 140MG/ML PREFILLED AUTOINJECTOR SINGLE DOSE
[2024-04-13 17:16] LABS: Glucose Point of Care 211 mg/dl (65-105)
[2024-04-13 20:49] LABS: Glucose Point of Care 237 mg/dl (65-105)
[2024-04-13] MEDS: allopurinoL 100 MG TABLET PO (20:58)
[2024-04-13] MEDS: AMIODARONE HCL 200 MG TABLET PO (20:58)
[2024-04-13] MEDS: SULFAMETHOXAZOLE/TRIMETHOPRIM 800/160 MG DS TABLET 1 TAB PO (20:58)
[2024-04-13] MEDS: PRAMIPEXOLE 0.5 MG TABLET PO (20:59)
[2024-04-13] MEDS: buPROPion HCL XL (24 HR) 150 MG TABCR PO (20:59)
[2024-04-13] MEDS: DIVALPROEX SODIUM DR 250 MG TABEC 500 MG PO (20:59)
[2024-04-13] MEDS: FAMOTIDINE 20 MG TABLET PO (20:59)
--- NOTE | 2024-04-13 23:59 | PC.NURSE ---
This RN spoke to Jermaine at 2250. They had questions regarding removal of PICC line at D/C and what kind of precautions the patient was on. This RN notified them of pt being on CDiff precautions and the PICC line would be removed prior to D/C.
[2024-04-14] VITALS (10 sets, daily range): BP systolic 144–178; BP diastolic 53–75; PULSE 68–79; RESP 15–19; TEMP 36.8–36.9; O2SAT 94–100
[2024-04-14] MEDS: VANCOMYCIN HCL 125 MG ORAL CAPSULE PO ×4 (00:37→17:02)
--- NOTE | 2024-04-14 01:42 | PC.NURSE ---
This RN spoke with Javier to check if patient is medically stable to be discharged. This RN informed them that she has a discharge in the computer and is stable.
[2024-04-14 05:25] LABS: Basophils Percent Auto 0.5 % (0.2-1.2); Eosinophils Absolute Auto 0.6 K/mm3 (0-0.3); Eosinophils Percent Auto 7.3 % (0-4.4); Hematocrit 30.7 % (37.0-47.0); Hemoglobin 9.5 g/dL (12.0-15.0); Immature Granulocyte Absolute 0.03 K/mm3 (0.00-0.031); Immature Granulocyte Percent A 0.4 % (0-0.5); Lymphocytes Percent Auto 29.4 % (18.3-44.2); Mean Corpuscular HGB Conc 30.9 g/dl (32-36); Mean Corpuscular Volume 96.8 fl (80-100); Mean Platelet Volume 9.4 fl (7.4-10.4); Monocytes Absolute Auto 0.5 K/mm3 (0.1-0.6); Monocytes Percent Auto 6.4 % (2.6-8.5); Neutrophils Absolute Auto 4.6 K/mm3 (1.3-6.7); Platelet Count Result 205 k/mm3 (150-375); Red Blood Count 3.17 M/mm3 (4.2-5.4); Red Cell Distribution Width 15.9 % (11.5-14.5); White Blood Count 8.2 K/mm3 (4.5-10.0)
[2024-04-14] MEDS: LEVOTHYROXINE SODIUM 75 MCG TABLET PO (05:34)
[2024-04-14] MEDS: CENTRAL LINE FLUSH 10 ML IV PUSH ×3 (05:34→20:03)
[2024-04-14 05:39] LABS: Anion Gap 7 mmol/L (4-12); Blood Urea Nitrogen 29 mg/dL (7-17); Carbon Dioxide 28 mmol/L (22-30); Chloride 101 mmol/L (98-107); Estimated CRCL calculation 26 ml/min; Potassium 4.6 mmol/L (3.4-5.0); Sodium 136 mmol/L (137-145)
[2024-04-14 05:40] LABS: Alanine Aminotransferase 31 U/L (6-35); Albumin Level 3.2 g/dL (3.5-5.1); Alkaline Phosphatase 92 U/L (38-126); Aspartate Amino Transferase 30 U/L (14-36); Bilirubin,Total 0.2 mg/dL (0.2-1.3); Calcium 8.7 mg/dL (8.4-10.2); Estimated Glomerular Filt Rate 23; Glucose 178 mg/dL (65-110)
[2024-04-14 07:57] LABS: Glucose Point of Care 191 mg/dl (65-105)
[2024-04-14] MEDS: APIXABAN 5 MG TABLET PO ×2 (08:17→20:02)
[2024-04-14] MEDS: VENLAFAXINE HCL XR 75 MG CAP.ER.24H 300 MG PO (08:17)
[2024-04-14] MEDS: GABAPENTIN 100 MG CAPSULE PO ×2 (08:17→20:03)
[2024-04-14] MEDS: carvediloL 6.25 MG TABLET PO ×2 (08:17→20:02)
[2024-04-14] MEDS: ISOSORBIDE DINITRATE 10 MG TABLET PO ×2 (08:17→20:02)
[2024-04-14] MEDS: SULFAMETHOXAZOLE/TRIMETHOPRIM 800/160 MG DS TABLET 1 TAB PO ×2 (08:17→20:02)
[2024-04-14] MEDS: MEMANTINE 10 MG TABLET PO ×2 (08:17→20:03)
[2024-04-14] MEDS: INSULIN ASPART (*BKC) 100 UNITS/ML SUB-Q ×6 (08:18→20:03)
[2024-04-14 11:38] LABS: Glucose Point of Care 268 mg/dl (65-105)
--- NOTE | 2024-04-14 12:24 | PM.IMPN ---
Progress Note: A&P Assessment and Plan (1) C. difficile diarrhea: Code(s): A04.72 - Enterocolitis due to Clostridium difficile, not specified as recurrent Status: Acute Assessment and Plan: Pt is on oral vancomycin No diarrhea reported today (2) Suicide attempt: Code(s): T14.91XA - Suicide attempt, initial encounter Status: Acute Assessment and Plan: History of depression pt can continue wit the antidepressants in hospital (3) Intentional overdose of insulin: Code(s): T38.3X2A - Poisoning by insulin and oral hypoglycemic [antidiabetic] drugs, intentional self-harm, initial encounter Status: Acute Assessment and Plan: Pt took ID of insulin intentionally feels lonely lost her daughter multiple medical problems (4) Polypharmacy: Code(s): Z79.899 - Other penitentiary (current) drug therapy Status: Acute Assessment and Plan: Multiple medical problems anxiety, anemia, history of breast cancer, EGD, diabetes type 2, diastolic heart failure grade 2, diabetic neuropathy, essential hypertension, hypothyroidism, macular degeneration, hyperlipidemia, ANDREA on CPAP, paroxysmal AFib on anticoagulation since, restless leg syndrome, stage 3 chronic kidney disease, bringing her down (5) Type 2 diabetes mellitus: Code(s): E11.9 - Type 2 diabetes mellitus without complications Status: Acute (6) Acute on chronic kidney failure: Code(s): N17.9 - Acute kidney failure, unspecified; N18.9 - Chronic kidney disease, unspecified Status: Acute (7) Acute UTI: Code(s): N39.0 - Urinary tract infection, site not specified Status: Acute Assessment and Plan: UA consistent with possible UTI. - Started on Rocephin initially and transitioned to Bactrim currently. - Still with some confusion possibly exacerbated by UTI. - Urine culture growing klebs aerogenes (Enterobacter) - start oral abx (8) Diastolic heart failure: Code(s): I50.30 - Unspecified diastolic (congestive) heart failure Status: Acute (9) General weakness: Code(s): R53.1 - Weakness Status: Acute (10) Restless leg syndrome: Code(s): G25.81 - Restless legs syndrome Status: Acute (11) Hypothyroidism: Code(s): E03.9 - Hypothyroidism, unspecified Status: Acute (12) Chronic anemia: Code(s): D64.9 - Anemia, unspecified Status: Acute (13) Frequent falls: Code(s): R29.6 - Repeated falls Status: Acute Assessment and Plan: PT/ OT today (14) Mixed hyperlipidemia: Code(s): E78.2 - Mixed hyperlipidemia Status: Acute (15) Benign hypertension with chronic kidney disease: Code(s): I12.9 - Hypertensive chronic kidney disease with stage 1 through stage 4 chronic kidney disease, or unspecified chronic kidney disease Status: Acute (16) Anxiety: Code(s): F41.9 - Anxiety disorder, unspecified Status: Acute (17) Depression: Qualifiers: Depression Type: major depressive disorder Major depression recurrence: single episode Active/Remission status: in full remission Qualified Code(s): F32.5 - Major depressive disorder, single episode, in full remission Code(s): F32.A - Depression, unspecified Status: Acute Subjective Date/time seen: 04/14/24 12:24 Interval history: 78 year old female anxiety, anemia, history of breast cancer, EGD, diabetes type 2, diastolic heart failure grade 2, diabetic neuropathy, essential hypertension, hypothyroidism, macular degeneration, hyperlipidemia, ANDREA on CPAP, paroxysmal AFib on anticoagulation since, restless leg syndrome, stage 3 chronic kidney disease presented the ED on 04/12/2024 for evaluation of intentional overdose. Patient reported last evening that she attempted to kill herself injecting 2 vials her insulin however her DEXA, was left on which her son has access to and alerted him to for hypoglycemia
[2024-04-14 16:32] LABS: Glucose Point of Care 234 mg/dl (65-105)
[2024-04-14] MEDS: allopurinoL 100 MG TABLET PO (20:02)
[2024-04-14] MEDS: PRAMIPEXOLE 0.5 MG TABLET PO (20:02)
[2024-04-14] MEDS: AMIODARONE HCL 200 MG TABLET PO (20:02)
[2024-04-14] MEDS: FAMOTIDINE 20 MG TABLET PO (20:02)
[2024-04-14] MEDS: DIVALPROEX SODIUM DR 250 MG TABEC 500 MG PO (20:02)
[2024-04-14] MEDS: HYDROCORTISONE 1% 30 GM CREAM 1 APPLIC TOPICAL (20:03)
[2024-04-14] MEDS: buPROPion HCL XL (24 HR) 150 MG TABCR PO (20:03)
[2024-04-14] MEDS: OPTI-GEN TAB 1 TABLET PO (20:03)
[2024-04-14 21:35] LABS: Glucose Point of Care 217 mg/dl (65-105)
--- NOTE | 2024-04-14 21:35 | PC.NURSE ---
I spoke with Liz from [facility], she informed me of the following regarding placement for the patient Aleksandra Berman. The patient has been denied from the following facilities [facility] I was told in RN to RN report that the patient has been denied from [facility] but [facility] was unable to confirm this The following facilities have no beds open [facility] ( [place] was faxed the patients chart at [phone] because they stated they would like to review the patient) The Patient was waitlisted at the following facilities [place], [facility] (I was told patient was denied from [facility] but we are unable to confirm at this time) [facility] informed me we are waiting for a call back from [facility] and that they are calling [facility] to see about acceptance.
--- NOTE | 2024-04-14 22:24 | PC.NURSE ---
Received a call from [facility] and they declined the patient due to a current patient being suspected of having covid. They are not taking admissions at this time
[2024-04-15] VITALS (10 sets, daily range): BP systolic 112–176; BP diastolic 55–74; PULSE 62–77; RESP 18–20; TEMP 36.5–36.8; O2SAT 92–100
[2024-04-15] MEDS: VANCOMYCIN HCL 125 MG ORAL CAPSULE PO ×5 (01:45→23:02)
[2024-04-15 05:36] LABS: Basophils Percent Auto 0.3 % (0.2-1.2); Eosinophils Absolute Auto 0.6 K/mm3 (0-0.3); Eosinophils Percent Auto 6.3 % (0-4.4); Hematocrit 30.2 % (37.0-47.0); Hemoglobin 9.4 g/dL (12.0-15.0); Immature Granulocyte Absolute 0.04 K/mm3 (0.00-0.031); Immature Granulocyte Percent A 0.4 % (0-0.5); Lymphocytes Absolute Auto 2.15 K/mm3 (0.9-3.2); Lymphocytes Percent Auto 23.6 % (18.3-44.2); Mean Corpuscular HGB Conc 31.1 g/dl (32-36); Mean Corpuscular Volume 96.5 fl (80-100); Mean Platelet Volume 9.4 fl (7.4-10.4); Monocytes Absolute Auto 0.5 K/mm3 (0.1-0.6); Monocytes Percent Auto 5.3 % (2.6-8.5); Neutrophils Absolute Auto 5.8 K/mm3 (1.3-6.7); Neutrophils Percent Auto 64.1 % (45.5-73.1); Platelet Count Result 204 k/mm3 (150-375); Red Blood Count 3.13 M/mm3 (4.2-5.4); Red Cell Distribution Width 16.3 % (11.5-14.5); White Blood Count 9.1 K/mm3 (4.5-10.0)
[2024-04-15 05:57] LABS: Alanine Aminotransferase 29 U/L (6-35); Albumin Level 3.3 g/dL (3.5-5.1); Alkaline Phosphatase 99 U/L (38-126); Anion Gap 7 mmol/L (4-12); Aspartate Amino Transferase 20 U/L (14-36); Bilirubin,Total 0.2 mg/dL (0.2-1.3); Blood Urea Nitrogen 32 mg/dL (7-17); Calcium 8.9 mg/dL (8.4-10.2); Carbon Dioxide 26 mmol/L (22-30); Chloride 102 mmol/L (98-107); Estimated CRCL calculation 25 ml/min; Estimated Glomerular Filt Rate 23; Glucose 222 mg/dL (65-110); Potassium 4.8 mmol/L (3.4-5.0); Sodium 135 mmol/L (137-145)
[2024-04-15] MEDS: LEVOTHYROXINE SODIUM 75 MCG TABLET PO (06:40)
[2024-04-15] MEDS: CENTRAL LINE FLUSH 10 ML IV PUSH ×3 (06:40→20:45)
[2024-04-15 07:48] LABS: Glucose Point of Care 227 mg/dl (65-105)
[2024-04-15] MEDS: SULFAMETHOXAZOLE/TRIMETHOPRIM 800/160 MG DS TABLET 1 TAB PO ×2 (08:24→20:44)
[2024-04-15] MEDS: VENLAFAXINE HCL XR 75 MG CAP.ER.24H 300 MG PO (08:24)
[2024-04-15] MEDS: CALCIUM/VITAMIN D 500 MG/5 MCG (200 I.U.) TABLET PO (08:24)
[2024-04-15] MEDS: MEMANTINE 10 MG TABLET PO ×2 (08:24→20:33)
[2024-04-15] MEDS: GABAPENTIN 100 MG CAPSULE PO ×2 (08:24→20:35)
[2024-04-15] MEDS: VITAMIN B COMPLEX CAPSULE 1 CAP PO (08:24)
[2024-04-15] MEDS: OPTI-GEN TAB 1 TABLET PO ×2 (08:24→20:35)
[2024-04-15] MEDS: APIXABAN 5 MG TABLET PO ×2 (08:24→20:32)
[2024-04-15] MEDS: ISOSORBIDE DINITRATE 10 MG TABLET PO ×2 (08:24→20:33)
[2024-04-15] MEDS: carvediloL 6.25 MG TABLET PO ×2 (08:25→20:33)
[2024-04-15] MEDS: INSULIN ASPART (*BKC) 100 UNITS/ML SUB-Q ×6 (08:25→17:03)
[2024-04-15] MEDS: HYDROCORTISONE 1% 30 GM CREAM 1 APPLIC TOPICAL ×2 (08:25→20:22)
--- NOTE | 2024-04-15 10:32 | PC.NURSE ---
RN spoke with jael via telephone and [facility] agreed to accept patient. RN informed care coordination.
[2024-04-15 11:33] LABS: Glucose Point of Care 294 mg/dl (65-105)
[2024-04-15 17:02] LABS: Glucose Point of Care 242 mg/dl (65-105)
--- NOTE | 2024-04-15 17:34 | PM.IMPN ---
Progress Note: A&P Assessment and Plan (1) C. difficile diarrhea: Code(s): A04.72 - Enterocolitis due to Clostridium difficile, not specified as recurrent Status: Acute Assessment and Plan: Pt is on oral vancomycin No diarrhea reported today (2) Suicide attempt: Code(s): T14.91XA - Suicide attempt, initial encounter Status: Acute Assessment and Plan: History of depression pt can continue wit the antidepressants in hospital (3) Intentional overdose of insulin: Code(s): T38.3X2A - Poisoning by insulin and oral hypoglycemic [antidiabetic] drugs, intentional self-harm, initial encounter Status: Acute Assessment and Plan: Pt took ID of insulin intentionally feels lonely lost her daughter multiple medical problems (4) Polypharmacy: Code(s): Z79.899 - Other care home (current) drug therapy Status: Acute Assessment and Plan: Multiple medical problems anxiety, anemia, history of breast cancer, EGD, diabetes type 2, diastolic heart failure grade 2, diabetic neuropathy, essential hypertension, hypothyroidism, macular degeneration, hyperlipidemia, ANDREA on CPAP, paroxysmal AFib on anticoagulation since, restless leg syndrome, stage 3 chronic kidney disease, bringing her down (5) Type 2 diabetes mellitus: Code(s): E11.9 - Type 2 diabetes mellitus without complications Status: Acute (6) Acute on chronic kidney failure: Code(s): N17.9 - Acute kidney failure, unspecified; N18.9 - Chronic kidney disease, unspecified Status: Acute (7) Acute UTI: Code(s): N39.0 - Urinary tract infection, site not specified Status: Acute Assessment and Plan: UA consistent with possible UTI. - Started on Rocephin initially and transitioned to Bactrim currently. - Still with some confusion possibly exacerbated by UTI. - Urine culture growing klebs aerogenes (Enterobacter) - start oral abx (8) Diastolic heart failure: Code(s): I50.30 - Unspecified diastolic (congestive) heart failure Status: Acute (9) General weakness: Code(s): R53.1 - Weakness Status: Acute (10) Restless leg syndrome: Code(s): G25.81 - Restless legs syndrome Status: Acute (11) Hypothyroidism: Code(s): E03.9 - Hypothyroidism, unspecified Status: Acute (12) Chronic anemia: Code(s): D64.9 - Anemia, unspecified Status: Acute (13) Frequent falls: Code(s): R29.6 - Repeated falls Status: Acute Assessment and Plan: PT/ OT today (14) Mixed hyperlipidemia: Code(s): E78.2 - Mixed hyperlipidemia Status: Acute (15) Benign hypertension with chronic kidney disease: Code(s): I12.9 - Hypertensive chronic kidney disease with stage 1 through stage 4 chronic kidney disease, or unspecified chronic kidney disease Status: Acute (16) Anxiety: Code(s): F41.9 - Anxiety disorder, unspecified Status: Acute (17) Depression: Qualifiers: Depression Type: major depressive disorder Major depression recurrence: single episode Active/Remission status: in full remission Qualified Code(s): F32.5 - Major depressive disorder, single episode, in full remission Code(s): F32.A - Depression, unspecified Status: Acute Plan 78 year old female anxiety, anemia, history of breast cancer, EGD, diabetes type 2, diastolic heart failure grade 2, diabetic neuropathy, essential hypertension, hypothyroidism, macular degeneration, hyperlipidemia, ANDREA on CPAP, paroxysmal AFib on anticoagulation since, restless leg syndrome, stage 3 chronic kidney disease presented the ED on 04/12/2024 for evaluation of intentional overdose. Patient reported last evening that she attempted to kill herself injecting 2 vials her insulin however her Dexcom, was left on which her son has access to and alerted him to for hypoglycemia. Patient has no previous suicidal attempts however was rece
--- NOTE | 2024-04-15 18:44 | PC.NURSE ---
RN faxed paperwork to both [facility] numbers [phone] and [phone]
[2024-04-15] MEDS: DIVALPROEX SODIUM DR 250 MG TABEC 500 MG PO (20:33)
[2024-04-15] MEDS: FAMOTIDINE 20 MG TABLET PO (20:35)
[2024-04-15] MEDS: AMIODARONE HCL 200 MG TABLET PO (20:35)
[2024-04-15] MEDS: allopurinoL 100 MG TABLET PO (20:35)
[2024-04-15] MEDS: PRAMIPEXOLE 0.5 MG TABLET PO (20:35)
[2024-04-15] MEDS: buPROPion HCL XL (24 HR) 150 MG TABCR PO (20:37)
[2024-04-15 21:02] LABS: Glucose Point of Care 199 mg/dl (65-105)
[2024-04-16] VITALS (12 sets, daily range): BP systolic 145–180; BP diastolic 56–72; PULSE 63–92; RESP 16–18; TEMP 36.6–36.8; O2SAT 97–100
[2024-04-16] MEDS: hydrALAZINE HCL 20 MG/ML VIAL 10 MG IV PUSH (05:22)
[2024-04-16] MEDS: LEVOTHYROXINE SODIUM 75 MCG TABLET PO (05:30)
[2024-04-16] MEDS: VANCOMYCIN HCL 125 MG ORAL CAPSULE PO ×3 (05:30→16:40)
[2024-04-16] MEDS: CENTRAL LINE FLUSH 10 ML IV PUSH ×2 (05:32→12:59)
[2024-04-16 05:37] LABS: Basophils Percent Auto 0.4 % (0.2-1.2); Eosinophils Absolute Auto 0.7 K/mm3 (0-0.3); Eosinophils Percent Auto 7.2 % (0-4.4); Hematocrit 30.9 % (37.0-47.0); Hemoglobin 9.6 g/dL (12.0-15.0); Immature Granulocyte Absolute 0.06 K/mm3 (0.00-0.031); Immature Granulocyte Percent A 0.6 % (0-0.5); Lymphocytes Absolute Auto 2.31 K/mm3 (0.9-3.2); Lymphocytes Percent Auto 24.5 % (18.3-44.2); Mean Corpuscular HGB Conc 31.1 g/dl (32-36); Mean Corpuscular Volume 96.6 fl (80-100); Mean Platelet Volume 9.5 fl (7.4-10.4); Monocytes Absolute Auto 0.4 K/mm3 (0.1-0.6); Monocytes Percent Auto 4.5 % (2.6-8.5); Neutrophils Absolute Auto 5.9 K/mm3 (1.3-6.7); Neutrophils Percent Auto 62.8 % (45.5-73.1); Platelet Count Result 212 k/mm3 (150-375); Red Cell Distribution Width 15.9 % (11.5-14.5); White Blood Count 9.4 K/mm3 (4.5-10.0)
[2024-04-16 05:44] LABS: Alanine Aminotransferase 26 U/L (6-35); Albumin Level 3.5 g/dL (3.5-5.1); Alkaline Phosphatase 100 U/L (38-126); Anion Gap 7 mmol/L (4-12); Aspartate Amino Transferase 19 U/L (14-36); Bilirubin,Total 0.2 mg/dL (0.2-1.3); Blood Urea Nitrogen 31 mg/dL (7-17); Carbon Dioxide 29 mmol/L (22-30); Chloride 100 mmol/L (98-107); Estimated CRCL calculation 26 ml/min; Estimated Glomerular Filt Rate 23; Glucose 173 mg/dL (65-110); Potassium 4.9 mmol/L (3.4-5.0); Sodium 136 mmol/L (137-145)
[2024-04-16] MEDS: VENLAFAXINE HCL XR 75 MG CAP.ER.24H 300 MG PO (08:02)
[2024-04-16] MEDS: CALCIUM/VITAMIN D 500 MG/5 MCG (200 I.U.) TABLET PO (08:03)
[2024-04-16] MEDS: ISOSORBIDE DINITRATE 10 MG TABLET PO ×2 (08:03→21:32)
[2024-04-16] MEDS: MEMANTINE 10 MG TABLET PO ×2 (08:03→21:34)
[2024-04-16] MEDS: APIXABAN 5 MG TABLET PO ×2 (08:03→21:34)
[2024-04-16] MEDS: SULFAMETHOXAZOLE/TRIMETHOPRIM 800/160 MG DS TABLET 1 TAB PO ×2 (08:03→21:33)
[2024-04-16] MEDS: VITAMIN B COMPLEX CAPSULE 1 CAP PO (08:03)
[2024-04-16] MEDS: INSULIN ASPART (*BKC) 100 UNITS/ML SUB-Q ×4 (08:03→16:40)
[2024-04-16] MEDS: OPTI-GEN TAB 1 TABLET PO ×2 (08:03→21:36)
[2024-04-16] MEDS: carvediloL 6.25 MG TABLET PO ×2 (08:03→21:34)
[2024-04-16] MEDS: HYDROCORTISONE 1% 30 GM CREAM 1 APPLIC TOPICAL ×2 (08:03→21:38)
[2024-04-16] MEDS: GABAPENTIN 100 MG CAPSULE PO ×2 (08:03→21:37)
[2024-04-16 08:11] LABS: Glucose Point of Care 172 mg/dl (65-105)
[2024-04-16 11:38] LABS: Glucose Point of Care 287 mg/dl (65-105)
--- NOTE | 2024-04-16 11:48 | PM.IMPN ---
Progress Note: A&P Assessment and Plan (1) C. difficile diarrhea: Code(s): A04.72 - Enterocolitis due to Clostridium difficile, not specified as recurrent Status: Acute (2) Suicide attempt: Code(s): T14.91XA - Suicide attempt, initial encounter Status: Acute (3) Intentional overdose of insulin: Code(s): T38.3X2A - Poisoning by insulin and oral hypoglycemic [antidiabetic] drugs, intentional self-harm, initial encounter Status: Acute (4) Polypharmacy: Code(s): Z79.899 - Other retirement (current) drug therapy Status: Acute (5) Type 2 diabetes mellitus: Code(s): E11.9 - Type 2 diabetes mellitus without complications Status: Acute (6) Acute on chronic kidney failure: Code(s): N17.9 - Acute kidney failure, unspecified; N18.9 - Chronic kidney disease, unspecified Status: Acute (7) Acute UTI: Code(s): N39.0 - Urinary tract infection, site not specified Status: Acute (8) Diastolic heart failure: Code(s): I50.30 - Unspecified diastolic (congestive) heart failure Status: Acute (9) General weakness: Code(s): R53.1 - Weakness Status: Acute (10) Restless leg syndrome: Code(s): G25.81 - Restless legs syndrome Status: Acute (11) Hypothyroidism: Code(s): E03.9 - Hypothyroidism, unspecified Status: Acute (12) Chronic anemia: Code(s): D64.9 - Anemia, unspecified Status: Acute (13) Frequent falls: Code(s): R29.6 - Repeated falls Status: Acute (14) Mixed hyperlipidemia: Code(s): E78.2 - Mixed hyperlipidemia Status: Acute (15) Benign hypertension with chronic kidney disease: Code(s): I12.9 - Hypertensive chronic kidney disease with stage 1 through stage 4 chronic kidney disease, or unspecified chronic kidney disease Status: Acute (16) Anxiety: Code(s): F41.9 - Anxiety disorder, unspecified Status: Acute (17) Depression: Qualifiers: Depression Type: major depressive disorder Major depression recurrence: single episode Active/Remission status: in full remission Qualified Code(s): F32.5 - Major depressive disorder, single episode, in full remission Code(s): F32.A - Depression, unspecified Status: Acute Plan 78 year old female anxiety, anemia, history of breast cancer, EGD, diabetes type 2, diastolic heart failure grade 2, diabetic neuropathy, essential hypertension, hypothyroidism, macular degeneration, hyperlipidemia, ANDREA on CPAP, paroxysmal AFib on anticoagulation since, restless leg syndrome, stage 3 chronic kidney disease presented the ED on 04/12/2024 for evaluation of intentional overdose. Patient reported last evening that she attempted to kill herself injecting 2 vials her insulin however her Dexcom, was left on which her son has access to and alerted him to for hypoglycemia. Patient has no previous suicidal attempts however was recently discharged from [facility] and noted to some depression with safe discharge plan in place. Patient reported she feels as though she currently has nothing to live for and she is a burden to her son. Patient was hypoglycemic upon arrival to the emergency department and given D50 IV pushes in started on dextrose 5% however she continued to be hypoglycemic and was increased to dextrose 10%. Intentional overdose with insulin with hypoglycemia in 30s on arrival. Suicide attempt Hypoglycemia initially in 30s has now resolved treated with dextrose solution C diff infection no diarrhea on oral vancomycin . finish the 10 day course History of depression Anxiety Chronic anemia History of breast cancer Diabetes mellitus type 2 Diastolic heart failure Diabetic neuropathy Hypertension resume bumex Hypothyroidism Macular degeneration Hyperlipidemia ANDREA on CPAP Proximal atrial fibrillation on anticoagulation on amiodarone and carvedilol Restless leg syndrome CKD stage 3 DVT proph
[2024-04-16] MEDS: BUMETANIDE 1 MG TABLET 2 MG PO (12:59)
--- NOTE | 2024-04-16 16:30 | PM.TDS ---
Transfer Discharge Sum: Prov Provider Date of admission: 04/13/24 10:55 Primary care physician: Sarbjit Lai MD Admitting clinician: Fredy Ahmadi MD Consults: 04/12/24 10:57 Consult to Physician Routine Comment: Consulting Provider: Coleen Pulido Reason for consultation: Intentional overdose Has provider been notified: Yes DS: Admitting Diagnosis Discharge Date 04/16/2024 Admitting Diagnosis Suicide attempt DS: Discharge Diagnosis Discharge Diagnosis (1) C. difficile diarrhea: Code(s): A04.72 - Enterocolitis due to Clostridium difficile, not specified as recurrent Status: Acute (2) Suicide attempt: Code(s): T14.91XA - Suicide attempt, initial encounter Status: Acute (3) Intentional overdose of insulin: Code(s): T38.3X2A - Poisoning by insulin and oral hypoglycemic [antidiabetic] drugs, intentional self-harm, initial encounter Status: Acute (4) Polypharmacy: Code(s): Z79.899 - Other [facility] (current) drug therapy Status: Acute (5) Type 2 diabetes mellitus: Code(s): E11.9 - Type 2 diabetes mellitus without complications Status: Acute (6) Acute on chronic kidney failure: Code(s): N17.9 - Acute kidney failure, unspecified; N18.9 - Chronic kidney disease, unspecified Status: Acute (7) Acute UTI: Code(s): N39.0 - Urinary tract infection, site not specified Status: Acute (8) Diastolic heart failure: Code(s): I50.30 - Unspecified diastolic (congestive) heart failure Status: Acute (9) General weakness: Code(s): R53.1 - Weakness Status: Acute (10) Restless leg syndrome: Code(s): G25.81 - Restless legs syndrome Status: Acute (11) Hypothyroidism: Code(s): E03.9 - Hypothyroidism, unspecified Status: Acute (12) Chronic anemia: Code(s): D64.9 - Anemia, unspecified Status: Acute (13) Frequent falls: Code(s): R29.6 - Repeated falls Status: Acute (14) Mixed hyperlipidemia: Code(s): E78.2 - Mixed hyperlipidemia Status: Acute (15) Benign hypertension with chronic kidney disease: Code(s): I12.9 - Hypertensive chronic kidney disease with stage 1 through stage 4 chronic kidney disease, or unspecified chronic kidney disease Status: Acute (16) Anxiety: Code(s): F41.9 - Anxiety disorder, unspecified Status: Acute (17) Depression: Qualifiers: Depression Type: major depressive disorder Major depression recurrence: single episode Active/Remission status: in full remission Qualified Code(s): F32.5 - Major depressive disorder, single episode, in full remission Code(s): F32.A - Depression, unspecified Status: Acute Transfer Discharge Sum: Med Medications Active and Home Medications: Home Medications divalproex 500 mg tablet,delayed release (Depakote) 500 mg PO HS 03/06/22 [History Confirmed 04/12/24] vit C 250 mg-E 90 mg-zinc 40 mg-copper 1 [id number] chew tablet (PreserVision AREDS-2) 1 tablet PO Q12H 03/27/23 [History Confirmed 04/12/24] evolocumab 140 mg/mL subcutaneous pen injector (Repatha SureClick) 140 mg subcut Q14D 07/13/23 [History Confirmed 04/12/24] apixaban 5 mg tablet (Eliquis) 5 mg PO Q12H 10/07/23 [History Confirmed 04/12/24] blood-glucose meter (Blood Glucose Monitoring kit) #1 ea 02/22/24 [Rx Confirmed 04/12/24] allopurinol 100 mg tablet (Zyloprim) 100 mg PO HS 04/04/24 [History Confirmed 04/12/24] amiodarone 200 mg tablet 200 mg PO HS 04/04/24 [History Confirmed 04/12/24] bumetanide 2 mg tablet 2 mg PO Q12H 04/04/24 [History Confirmed 04/12/24] bupropion HCl 150 mg 24 hr tablet, extended release (Wellbutrin XL) 150 mg PO HS 04/04/24 [History Confirmed 04/12/24] buspirone 15 mg tablet 15 mg PO HS 04/04/24 [History Confirmed 04/12/24] calcium carbonate 600 mg-vitamin D3 5 mcg (200 unit) tablet 1 tablet PO DAILY 04/04/24 [History Confirmed 04/12
[2024-04-16 16:39] LABS: Glucose Point of Care 178 mg/dl (65-105)
--- NOTE | 2024-04-16 18:07 | PC.NURSE ---
Dr. Mills updated that RN had removed PICC line in preparation for transfer to [facility], as pt had been accepted by Dr. Berry and was awaiting a RN to RN report before sending pt. Jermaine had called this facility and update RN that they could no longer take pt due to pt having C.Diff. Jermaine informed RN to call again tomorrow and they maybe able to accept her at that time. New order to leave IV out of pt.
[2024-04-16] MEDS: buPROPion HCL XL (24 HR) 150 MG TABCR PO (21:33)
[2024-04-16] MEDS: allopurinoL 100 MG TABLET PO (21:33)
[2024-04-16] MEDS: PRAMIPEXOLE 0.5 MG TABLET PO (21:34)
[2024-04-16] MEDS: DIVALPROEX SODIUM DR 250 MG TABEC 500 MG PO (21:34)
[2024-04-16] MEDS: FAMOTIDINE 20 MG TABLET PO (21:35)
[2024-04-16] MEDS: AMIODARONE HCL 200 MG TABLET PO (21:35)
[2024-04-16 21:57] LABS: Glucose Point of Care 176 mg/dl (65-105)
[2024-04-17] VITALS (9 sets, daily range): BP systolic 114–166; BP diastolic 46–71; PULSE 65–82; RESP 16–18; TEMP 36.7–36.9; O2SAT 95–100
[2024-04-17] MEDS: VANCOMYCIN HCL 125 MG ORAL CAPSULE PO ×4 (00:48→17:00)
[2024-04-17] MEDS: BUMETANIDE 1 MG TABLET 2 MG PO ×2 (00:48→13:58)
[2024-04-17 04:15] LABS: Basophils Absolute Auto 0.1 K/mm3 (0.0-0.1); Basophils Percent Auto 0.6 % (0.2-1.2); Eosinophils Absolute Auto 0.7 K/mm3 (0-0.3); Eosinophils Percent Auto 6.3 % (0-4.4); Hematocrit 31.7 % (37.0-47.0); Hemoglobin 9.9 g/dL (12.0-15.0); Immature Granulocyte Absolute 0.05 K/mm3 (0.00-0.031); Immature Granulocyte Percent A 0.5 % (0-0.5); Lymphocytes Percent Auto 24.8 % (18.3-44.2); Mean Corpuscular HGB Conc 31.2 g/dl (32-36); Mean Corpuscular Hemoglobin 29.9 pg (26-34); Mean Corpuscular Volume 95.8 fl (80-100); Mean Platelet Volume 9.8 fl (7.4-10.4); Monocytes Absolute Auto 0.4 K/mm3 (0.1-0.6); Neutrophils Absolute Auto 6.9 K/mm3 (1.3-6.7); Neutrophils Percent Auto 63.8 % (45.5-73.1); Platelet Count Result 222 k/mm3 (150-375); Red Blood Count 3.31 M/mm3 (4.2-5.4); Red Cell Distribution Width 16.2 % (11.5-14.5); White Blood Count 10.9 K/mm3 (4.5-10.0)
[2024-04-17 04:31] LABS: Alanine Aminotransferase 25 U/L (6-35); Albumin Level 3.7 g/dL (3.5-5.1); Alkaline Phosphatase 102 U/L (38-126); Anion Gap 10 mmol/L (4-12); Aspartate Amino Transferase 21 U/L (14-36); Bilirubin,Total 0.3 mg/dL (0.2-1.3); Blood Urea Nitrogen 35 mg/dL (7-17); Calcium 8.9 mg/dL (8.4-10.2); Carbon Dioxide 26 mmol/L (22-30); Chloride 98 mmol/L (98-107); Estimated CRCL calculation 24 ml/min; Estimated Glomerular Filt Rate 22; Glucose 221 mg/dL (65-110); Potassium 5.2 mmol/L (3.4-5.0); Sodium 134 mmol/L (137-145)
[2024-04-17] MEDS: LEVOTHYROXINE SODIUM 75 MCG TABLET PO (06:17)
[2024-04-17 07:50] LABS: Glucose Point of Care 275 mg/dl (65-105)
[2024-04-17] MEDS: MEMANTINE 10 MG TABLET PO ×2 (07:59→20:44)
[2024-04-17] MEDS: SULFAMETHOXAZOLE/TRIMETHOPRIM 800/160 MG DS TABLET 1 TAB PO (07:59)
[2024-04-17] MEDS: APIXABAN 5 MG TABLET PO ×2 (07:59→21:00)
[2024-04-17] MEDS: VENLAFAXINE HCL XR 75 MG CAP.ER.24H 300 MG PO (07:59)
[2024-04-17] MEDS: CALCIUM/VITAMIN D 500 MG/5 MCG (200 I.U.) TABLET PO (07:59)
[2024-04-17] MEDS: GABAPENTIN 100 MG CAPSULE PO ×2 (07:59→20:30)
[2024-04-17] MEDS: OPTI-GEN TAB 1 TABLET PO ×2 (07:59→20:30)
[2024-04-17] MEDS: ISOSORBIDE DINITRATE 10 MG TABLET PO ×2 (07:59→20:30)
[2024-04-17] MEDS: VITAMIN B COMPLEX CAPSULE 1 CAP PO (07:59)
[2024-04-17] MEDS: carvediloL 6.25 MG TABLET PO ×2 (07:59→20:30)
[2024-04-17] MEDS: INSULIN ASPART (*BKC) 100 UNITS/ML SUB-Q ×6 (07:59→20:47)
[2024-04-17] MEDS: HYDROCORTISONE 1% 30 GM CREAM 1 APPLIC TOPICAL ×2 (08:00→20:32)
[2024-04-17 11:46] LABS: Glucose Point of Care 232 mg/dl (65-105)
--- NOTE | 2024-04-17 12:45 | P.PNIM_ITS ---
Progress Note: A&P Assessment and Plan (1) C. difficile diarrhea: Code(s): A04.72 - Enterocolitis due to Clostridium difficile, not specified as recurrent Status: Acute (2) Suicide attempt: Code(s): T14.91XA - Suicide attempt, initial encounter Status: Acute (3) Intentional overdose of insulin: Code(s): T38.3X2A - Poisoning by insulin and oral hypoglycemic [antidiabetic] drugs, intentional self-harm, initial encounter Status: Acute (4) Polypharmacy: Code(s): Z79.899 - Other jail (current) drug therapy Status: Acute (5) Type 2 diabetes mellitus: Code(s): E11.9 - Type 2 diabetes mellitus without complications Status: Acute (6) Acute on chronic kidney failure: Code(s): N17.9 - Acute kidney failure, unspecified; N18.9 - Chronic kidney disease, unspecified Status: Acute (7) Acute UTI: Code(s): N39.0 - Urinary tract infection, site not specified Status: Acute (8) Diastolic heart failure: Code(s): I50.30 - Unspecified diastolic (congestive) heart failure Status: Acute (9) General weakness: Code(s): R53.1 - Weakness Status: Acute (10) Restless leg syndrome: Code(s): G25.81 - Restless legs syndrome Status: Acute (11) Hypothyroidism: Code(s): E03.9 - Hypothyroidism, unspecified Status: Acute (12) Chronic anemia: Code(s): D64.9 - Anemia, unspecified Status: Acute (13) Frequent falls: Code(s): R29.6 - Repeated falls Status: Acute (14) Mixed hyperlipidemia: Code(s): E78.2 - Mixed hyperlipidemia Status: Acute (15) Benign hypertension with chronic kidney disease: Code(s): I12.9 - Hypertensive chronic kidney disease with stage 1 through stage 4 chronic kidney disease, or unspecified chronic kidney disease Status: Acute (16) Anxiety: Code(s): F41.9 - Anxiety disorder, unspecified Status: Acute (17) Depression: Qualifiers: Depression Type: major depressive disorder Major depression recurrence: single episode Active/Remission status: in full remission Qualified Code(s): F32.5 - Major depressive disorder, single episode, in full remission Code(s): F32.A - Depression, unspecified Status: Acute Plan 78 year old female anxiety, anemia, history of breast cancer, EGD, diabetes type 2, diastolic heart failure grade 2, diabetic neuropathy, essential hypertension, hypothyroidism, macular degeneration, hyperlipidemia, ANDREA on CPAP, paroxysmal AFib on anticoagulation since, restless leg syndrome, stage 3 chronic kidney disease presented the ED on 04/12/2024 for evaluation of intentional overdose. Patient reported last evening that she attempted to kill herself injecting 2 vials her insulin however her Dexcom, was left on which her son has access to and alerted him to for hypoglycemia. Patient has no previous suicidal attempts however was recently discharged from [facility] and noted to some depression with safe discharge plan in place. Patient reported she feels as though she currently has nothing to live for and she is a burden to her son. Patient was hypoglycemic upon arrival to the emergency department and given D50 IV pushes in started on dextrose 5% however she continued to be hypoglycemic and was increased to dextrose 10%. Intentional overdose with insulin with hypoglycemia in 30s on arrival. Suicide attempt Hypoglycemia initially in 30s has now resolved treated with dextrose solution C diff infection no diarrhea on oral vancomycin . finish the 10 d
[2024-04-17 16:50] LABS: Glucose Point of Care 183 mg/dl (65-105)
[2024-04-17 18:05] LABS: Add Urine Microscopic? YES; Appearance Urine Cloudy (Clear); Bacteria Urine None Seen /hpf; Bilirubin Urine Negative (Negative); Blood Urine Trace (Negative); Color Urine Yellow (Yellow); Glucose Urine UA Trace mg/dL (Negative); Ketones Urine Negative (Negative); Leukocyte Esterase Ur 3+ LEU/UL (Negative); Need Manual Microscopic Reviewed; Nitrate Urine Negative (Negative); Protein Urine Negative (Negative); RBC Urine 21-50 /hpf (0-2); Specific Grav Ur 1.014 (1.001-1.035); Squamous Epithelial Cell Urine Occasional /hpf (Few); Urobilinogen Urine 0.2 mg/dL (<2.0); WBC Urine >100 /hpf (0-3)
--- NOTE | 2024-04-17 19:49 | PM.EVENT ---
Event Note Event Note Event Note: Nursing called as patient's PICC line was removed but Rocephin was ordered based on UA performed earlier today that was indicative of UTI. Results of prior urine cultures shows that on 04/04 she had Klebs aerogenes (Enterobacter) and she was on Bactrim DS to cover this. Her admission UA was negative and has since developed findings of infection. Her prior urine culture from 03/11/24 showed Proteus mirabilis that was resistant to Levaquin but susceptible to cephalosporins. After much deliberation and consultation with Durga from Pharmacy, decided to use Rocephin IM 1g Q24H and increase vancomycin oral dose for C-Diff treatment as well as add Florastor tid. This UA with apparent infection developed while patient was on Bactrim DS 1 tab PO BID which is hard on her already compromised renal function. Bactrim was discontinued.
[2024-04-17] MEDS: AMIODARONE HCL 200 MG TABLET PO (20:30)
[2024-04-17] MEDS: buPROPion HCL XL (24 HR) 150 MG TABCR PO (20:31)
[2024-04-17] MEDS: DIVALPROEX SODIUM DR 250 MG TABEC 500 MG PO (20:31)
[2024-04-17] MEDS: FAMOTIDINE 20 MG TABLET PO (20:31)
[2024-04-17] MEDS: allopurinoL 100 MG TABLET PO (20:31)
[2024-04-17] MEDS: cefTRIAXone 1 GM VIAL IM (20:39)
[2024-04-17] MEDS: PRAMIPEXOLE 0.5 MG TABLET PO (20:44)
[2024-04-17 20:59] LABS: Glucose Point of Care 284 mg/dl (65-105)
[2024-04-17] MEDS: VANCOMYCIN HCL 125 MG ORAL CAPSULE 250 MG PO (23:42)
[2024-04-18] VITALS (10 sets, daily range): BP systolic 133–160; BP diastolic 55–67; PULSE 65–87; RESP 16–20; TEMP 36.4–36.8; O2SAT 95–100
[2024-04-18] MEDS: BUMETANIDE 1 MG TABLET 2 MG PO (01:30)
[2024-04-18 03:07] LABS: Glucose Point of Care 215 mg/dl (65-105)
[2024-04-18 04:03] LABS: Basophils Absolute Auto 0.1 K/mm3 (0.0-0.1); Basophils Percent Auto 0.7 % (0.2-1.2); Eosinophils Absolute Auto 0.7 K/mm3 (0-0.3); Eosinophils Percent Auto 6.6 % (0-4.4); Hematocrit 32.3 % (37.0-47.0); Hemoglobin 9.9 g/dL (12.0-15.0); Immature Granulocyte Absolute 0.04 K/mm3 (0.00-0.031); Immature Granulocyte Percent A 0.4 % (0-0.5); Lymphocytes Absolute Auto 2.86 K/mm3 (0.9-3.2); Lymphocytes Percent Auto 28.9 % (18.3-44.2); Mean Corpuscular HGB Conc 30.7 g/dl (32-36); Mean Corpuscular Hemoglobin 29.7 pg (26-34); Mean Platelet Volume 10.1 fl (7.4-10.4); Monocytes Absolute Auto 0.4 K/mm3 (0.1-0.6); Monocytes Percent Auto 4.4 % (2.6-8.5); Neutrophils Absolute Auto 5.9 K/mm3 (1.3-6.7); Platelet Count Result 224 k/mm3 (150-375); Red Blood Count 3.33 M/mm3 (4.2-5.4); Red Cell Distribution Width 16.3 % (11.5-14.5); White Blood Count 9.9 K/mm3 (4.5-10.0)
[2024-04-18 04:16] LABS: Alanine Aminotransferase 23 U/L (6-35); Albumin Level 3.7 g/dL (3.5-5.1); Alkaline Phosphatase 108 U/L (38-126); Anion Gap 8 mmol/L (4-12); Aspartate Amino Transferase 23 U/L (14-36); Bilirubin,Total 0.3 mg/dL (0.2-1.3); Blood Urea Nitrogen 44 mg/dL (7-17); Calcium 9.2 mg/dL (8.4-10.2); Carbon Dioxide 28 mmol/L (22-30); Chloride 96 mmol/L (98-107); Estimated CRCL calculation 20 ml/min; Estimated Glomerular Filt Rate 17; Glucose 204 mg/dL (65-110); Potassium 4.8 mmol/L (3.4-5.0); Sodium 132 mmol/L (137-145)
[2024-04-18] MEDS: VANCOMYCIN HCL 125 MG ORAL CAPSULE 250 MG PO ×4 (05:34→23:42)
[2024-04-18] MEDS: LEVOTHYROXINE SODIUM 75 MCG TABLET PO (05:34)
[2024-04-18 08:02] LABS: Glucose Point of Care 243 mg/dl (65-105)
[2024-04-18] MEDS: INSULIN ASPART (*BKC) 100 UNITS/ML SUB-Q ×5 (09:03→16:55)
[2024-04-18] MEDS: MEMANTINE 10 MG TABLET PO ×2 (09:03→20:48)
[2024-04-18] MEDS: carvediloL 6.25 MG TABLET PO ×2 (09:03→20:47)
[2024-04-18] MEDS: VENLAFAXINE HCL XR 75 MG CAP.ER.24H 300 MG PO (09:03)
[2024-04-18] MEDS: GABAPENTIN 100 MG CAPSULE PO ×2 (09:03→20:43)
[2024-04-18] MEDS: APIXABAN 5 MG TABLET PO ×2 (09:03→20:44)
[2024-04-18] MEDS: VITAMIN B COMPLEX CAPSULE 1 CAP PO (09:03)
[2024-04-18] MEDS: ISOSORBIDE DINITRATE 10 MG TABLET PO ×2 (09:03→20:48)
[2024-04-18] MEDS: CALCIUM/VITAMIN D 500 MG/5 MCG (200 I.U.) TABLET PO (09:03)
[2024-04-18] MEDS: OPTI-GEN TAB 1 TABLET PO ×2 (09:03→20:47)
[2024-04-18] MEDS: HYDROCORTISONE 1% 30 GM CREAM 1 APPLIC TOPICAL ×2 (09:04→20:49)
[2024-04-18] MEDS: SACCHAROMYCES BOULARDII 250 MG CAPSULE PO ×3 (09:05→16:55)
[2024-04-18 11:55] LABS: Glucose Point of Care 247 mg/dl (65-105)
--- NOTE | 2024-04-18 13:09 | PM.IMPN ---
Progress Note: A&P Assessment and Plan (1) C. difficile diarrhea: Code(s): A04.72 - Enterocolitis due to Clostridium difficile, not specified as recurrent Status: Acute (2) Suicide attempt: Code(s): T14.91XA - Suicide attempt, initial encounter Status: Acute (3) Intentional overdose of insulin: Code(s): T38.3X2A - Poisoning by insulin and oral hypoglycemic [antidiabetic] drugs, intentional self-harm, initial encounter Status: Acute (4) Polypharmacy: Code(s): Z79.899 - Other residential (current) drug therapy Status: Acute (5) Type 2 diabetes mellitus: Code(s): E11.9 - Type 2 diabetes mellitus without complications Status: Acute (6) Acute on chronic kidney failure: Code(s): N17.9 - Acute kidney failure, unspecified; N18.9 - Chronic kidney disease, unspecified Status: Acute (7) Acute UTI: Code(s): N39.0 - Urinary tract infection, site not specified Status: Acute (8) Diastolic heart failure: Code(s): I50.30 - Unspecified diastolic (congestive) heart failure Status: Acute (9) General weakness: Code(s): R53.1 - Weakness Status: Acute (10) Restless leg syndrome: Code(s): G25.81 - Restless legs syndrome Status: Acute (11) Hypothyroidism: Code(s): E03.9 - Hypothyroidism, unspecified Status: Acute (12) Chronic anemia: Code(s): D64.9 - Anemia, unspecified Status: Acute (13) Frequent falls: Code(s): R29.6 - Repeated falls Status: Acute (14) Mixed hyperlipidemia: Code(s): E78.2 - Mixed hyperlipidemia Status: Acute (15) Benign hypertension with chronic kidney disease: Code(s): I12.9 - Hypertensive chronic kidney disease with stage 1 through stage 4 chronic kidney disease, or unspecified chronic kidney disease Status: Acute (16) Anxiety: Code(s): F41.9 - Anxiety disorder, unspecified Status: Acute (17) Depression: Qualifiers: Depression Type: major depressive disorder Major depression recurrence: single episode Active/Remission status: in full remission Qualified Code(s): F32.5 - Major depressive disorder, single episode, in full remission Code(s): F32.A - Depression, unspecified Status: Acute Plan 78 year old female anxiety, anemia, history of breast cancer, EGD, diabetes type 2, diastolic heart failure grade 2, diabetic neuropathy, essential hypertension, hypothyroidism, macular degeneration, hyperlipidemia, ANDREA on CPAP, paroxysmal AFib on anticoagulation since, restless leg syndrome, stage 3 chronic kidney disease presented the ED on 04/12/2024 for evaluation of intentional overdose. Patient reported last evening that she attempted to kill herself injecting 2 vials her insulin however her Dexcom, was left on which her son has access to and alerted him to for hypoglycemia. Patient has no previous suicidal attempts however was recently discharged from [facility] and noted to some depression with safe discharge plan in place. Patient reported she feels as though she currently has nothing to live for and she is a burden to her son. Patient was hypoglycemic upon arrival to the emergency department and given D50 IV pushes in started on dextrose 5% however she continued to be hypoglycemic and was increased to dextrose 10%. Intentional overdose with insulin with hypoglycemia in 30s on arrival. Suicide attempt Hypoglycemia initially in 30s has now resolved treated with dextrose solution C diff infection no diarrhea on oral vancomycin . finish the 10 day course UTI UA still positive. Last urine culture from 04/04/2024 with Klebsiella aerogenes. Will start cefepime daily will place an IV line History of depression Anxiety Chronic anemia History of breast cancer Diabetes mellitus type 2 Diastolic heart failure Diabetic neuropathy Hypertension resume bumex will be held as a creatinine bumped up today Hypothyroi
[2024-04-18 16:28] LABS: Glucose Point of Care 147 mg/dl (65-105)
[2024-04-18 19:54] LABS: Glucose Point of Care 139 mg/dl (65-105)
[2024-04-18] MEDS: PRAMIPEXOLE 0.5 MG TABLET PO (20:43)
[2024-04-18] MEDS: DIVALPROEX SODIUM DR 250 MG TABEC 500 MG PO (20:43)
[2024-04-18] MEDS: AMIODARONE HCL 200 MG TABLET PO (20:44)
[2024-04-18] MEDS: allopurinoL 100 MG TABLET PO (20:47)
[2024-04-18] MEDS: buPROPion HCL XL (24 HR) 150 MG TABCR PO (20:47)
[2024-04-18] MEDS: FAMOTIDINE 20 MG TABLET PO (20:47)
[2024-04-18] MEDS: CEFEPIME 1 GM/NS 50 ML 1 GM/50 ML BAG IVPB (20:49)
--- NOTE | 2024-04-18 21:36 | PC.NURSE ---
2100: RN received a call from [facility] informing her [facility] has formally declined patient placement for reasons unspecified.
--- NOTE | 2024-04-18 21:50 | PC.NURSE ---
2147: [facility] declined patient placement for unspecified reasons.
[2024-04-19] VITALS (8 sets, daily range): BP systolic 131–168; BP diastolic 63–88; PULSE 64–85; RESP 17–20; TEMP 36.4–36.9; O2SAT 94–100
[2024-04-19 04:59] LABS: Basophils Absolute Auto 0.1 K/mm3 (0.0-0.1); Basophils Percent Auto 0.6 % (0.2-1.2); Eosinophils Absolute Auto 0.6 K/mm3 (0-0.3); Eosinophils Percent Auto 7.1 % (0-4.4); Hematocrit 30.9 % (37.0-47.0); Hemoglobin 9.6 g/dL (12.0-15.0); Immature Granulocyte Absolute 0.04 K/mm3 (0.00-0.031); Immature Granulocyte Percent A 0.5 % (0-0.5); Lymphocytes Absolute Auto 2.13 K/mm3 (0.9-3.2); Lymphocytes Percent Auto 25.4 % (18.3-44.2); Mean Corpuscular HGB Conc 31.1 g/dl (32-36); Mean Corpuscular Hemoglobin 29.8 pg (26-34); Monocytes Absolute Auto 0.4 K/mm3 (0.1-0.6); Monocytes Percent Auto 4.6 % (2.6-8.5); Neutrophils Absolute Auto 5.2 K/mm3 (1.3-6.7); Neutrophils Percent Auto 61.8 % (45.5-73.1); Platelet Count Result 217 k/mm3 (150-375); Red Blood Count 3.22 M/mm3 (4.2-5.4); Red Cell Distribution Width 16.2 % (11.5-14.5); White Blood Count 8.4 K/mm3 (4.5-10.0)
[2024-04-19 05:12] LABS: Alanine Aminotransferase 21 U/L (6-35); Albumin Level 3.5 g/dL (3.5-5.1); Alkaline Phosphatase 104 U/L (38-126); Anion Gap 8 mmol/L (4-12); Aspartate Amino Transferase 21 U/L (14-36); Bilirubin,Total 0.2 mg/dL (0.2-1.3); Blood Urea Nitrogen 44 mg/dL (7-17); Calcium 9.3 mg/dL (8.4-10.2); Carbon Dioxide 28 mmol/L (22-30); Chloride 98 mmol/L (98-107); Estimated CRCL calculation 21 ml/min; Estimated Glomerular Filt Rate 18; Glucose 218 mg/dL (65-110); Magnesium 2.2 mg/dL (1.6-2.3); Sodium 134 mmol/L (137-145)
[2024-04-19] MEDS: VANCOMYCIN HCL 125 MG ORAL CAPSULE 250 MG PO ×3 (05:48→18:02)
[2024-04-19] MEDS: hydrALAZINE HCL 20 MG/ML VIAL 10 MG IV PUSH (05:49)
[2024-04-19] MEDS: LEVOTHYROXINE SODIUM 75 MCG TABLET PO (05:49)
[2024-04-19] MEDS: GABAPENTIN 100 MG CAPSULE PO ×2 (09:02→20:12)
[2024-04-19] MEDS: VITAMIN B COMPLEX CAPSULE 1 CAP PO (09:02)
[2024-04-19] MEDS: SACCHAROMYCES BOULARDII 250 MG CAPSULE PO ×3 (09:02→18:02)
[2024-04-19] MEDS: ISOSORBIDE DINITRATE 10 MG TABLET PO ×2 (09:02→20:13)
[2024-04-19] MEDS: VENLAFAXINE HCL XR 75 MG CAP.ER.24H 300 MG PO (09:02)
[2024-04-19] MEDS: HYDROCORTISONE 1% 30 GM CREAM 1 APPLIC TOPICAL (09:03)
[2024-04-19] MEDS: INSULIN ASPART (*BKC) 100 UNITS/ML SUB-Q ×7 (09:03→20:10)
[2024-04-19] MEDS: APIXABAN 5 MG TABLET PO ×2 (09:03→20:13)
[2024-04-19] MEDS: MEMANTINE 10 MG TABLET PO ×2 (09:03→20:12)
[2024-04-19] MEDS: CALCIUM/VITAMIN D 500 MG/5 MCG (200 I.U.) TABLET PO (09:03)
[2024-04-19] MEDS: carvediloL 6.25 MG TABLET PO ×2 (09:03→20:13)
[2024-04-19] MEDS: OPTI-GEN TAB 1 TABLET PO ×2 (09:03→20:12)
[2024-04-19 09:11] LABS: Glucose Point of Care 247 mg/dl (65-105)
--- NOTE | 2024-04-19 10:41 | PC.NURSE ---
Patient Stay packet faxed ([phone]) to [facility] in [place] @ [phone]. Call from Leonora Mcgovern @ [phone] and reviewed patient information. She will call back after further reviewing faxed information when all documents received.
--- NOTE | 2024-04-19 11:44 | PC.NURSE ---
Leonora Mcgovern called back with further questions, answers provided. She stated that crisis will need to reevaluate the patient and then instructed us to call back after. Patient is on admission board for provider to review patient information once reevaluated.
--- NOTE | 2024-04-19 11:50 | PC.NURSE ---
[facility], notified of [facility] request for patient to be reevaluated prior to acceptance/denial. Awaiting crisis to arrive
[2024-04-19 12:06] LABS: Glucose Point of Care 302 mg/dl (65-105)
--- NOTE | 2024-04-19 12:35 | PM.IMPN ---
Progress Note: A&P Assessment and Plan (1) C. difficile diarrhea: Code(s): A04.72 - Enterocolitis due to Clostridium difficile, not specified as recurrent Status: Acute (2) Suicide attempt: Code(s): T14.91XA - Suicide attempt, initial encounter Status: Acute (3) Intentional overdose of insulin: Code(s): T38.3X2A - Poisoning by insulin and oral hypoglycemic [antidiabetic] drugs, intentional self-harm, initial encounter Status: Acute (4) Polypharmacy: Code(s): Z79.899 - Other care home (current) drug therapy Status: Acute (5) Type 2 diabetes mellitus: Code(s): E11.9 - Type 2 diabetes mellitus without complications Status: Acute (6) Acute on chronic kidney failure: Code(s): N17.9 - Acute kidney failure, unspecified; N18.9 - Chronic kidney disease, unspecified Status: Acute (7) Acute UTI: Code(s): N39.0 - Urinary tract infection, site not specified Status: Acute (8) Diastolic heart failure: Code(s): I50.30 - Unspecified diastolic (congestive) heart failure Status: Acute (9) General weakness: Code(s): R53.1 - Weakness Status: Acute (10) Restless leg syndrome: Code(s): G25.81 - Restless legs syndrome Status: Acute (11) Hypothyroidism: Code(s): E03.9 - Hypothyroidism, unspecified Status: Acute (12) Chronic anemia: Code(s): D64.9 - Anemia, unspecified Status: Acute (13) Frequent falls: Code(s): R29.6 - Repeated falls Status: Acute (14) Mixed hyperlipidemia: Code(s): E78.2 - Mixed hyperlipidemia Status: Acute (15) Benign hypertension with chronic kidney disease: Code(s): I12.9 - Hypertensive chronic kidney disease with stage 1 through stage 4 chronic kidney disease, or unspecified chronic kidney disease Status: Acute (16) Anxiety: Code(s): F41.9 - Anxiety disorder, unspecified Status: Acute (17) Depression: Qualifiers: Depression Type: major depressive disorder Major depression recurrence: single episode Active/Remission status: in full remission Qualified Code(s): F32.5 - Major depressive disorder, single episode, in full remission Code(s): F32.A - Depression, unspecified Status: Acute Plan 78 year old female anxiety, anemia, history of breast cancer, EGD, diabetes type 2, diastolic heart failure grade 2, diabetic neuropathy, essential hypertension, hypothyroidism, macular degeneration, hyperlipidemia, ANDREA on CPAP, paroxysmal AFib on anticoagulation since, restless leg syndrome, stage 3 chronic kidney disease presented the ED on 04/12/2024 for evaluation of intentional overdose. Patient reported last evening that she attempted to kill herself injecting 2 vials her insulin however her Dexcom, was left on which her son has access to and alerted him to for hypoglycemia. Patient has no previous suicidal attempts however was recently discharged from [facility] and noted to some depression with safe discharge plan in place. Patient reported she feels as though she currently has nothing to live for and she is a burden to her son. Patient was hypoglycemic upon arrival to the emergency department and given D50 IV pushes in started on dextrose 5% however she continued to be hypoglycemic and was increased to dextrose 10%. Intentional overdose with insulin with hypoglycemia in 30s on arrival. Suicide attempt Hypoglycemia initially in 30s has now resolved treated with dextrose solution C diff infection no diarrhea on oral vancomycin . finish the 10 day course UTI UA still positive. Last urine culture from 04/04/2024 with Klebsiella aerogenes. UA still positive while on Bactrim. 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 Started on cefepime daily day 3 planned History of depression Anxiety Chronic anemia History of breast cancer Diabetes mellitus type 2 Diastolic heart failure Diabetic neuropathy Hypertension resume bumex w
--- NOTE | 2024-04-19 13:40 | PC.NURSE ---
Per Care Coordination please resubmit patient packet to [facility] per her cold storage supervisor and ensure it is clear that isolation status has been discontinued, PICC line has been discontinued >24 hours, and cefepime may be switched to Rocephin 1g IM q24 hr as well as PO vancomycin and florastor for history of CDIFF. New fax # [phone] and latest hospitalist notes provided to crisis to fax once done completing their reassessment of the patient at bedside.
--- NOTE | 2024-04-19 14:00 | PC.NURSE ---
Crisis evaluation complete, (Mack and Selena) patient agreeable and appropriate to go home under safety contract. Hospitalist Dr. Mills notified and agreeable to safety contract and will address antibiotic plan with Infectious Disease pharmacist for discharge. [facility] contacted by Mack Garcia, via phone to discuss if safety contract is appropriate, they are agreement that this is an appropriate plan. Care coordination notified by this RN of updated plan and for transportation to be addressed.
[2024-04-19 18:13] LABS: Glucose Point of Care 243 mg/dl (65-105)
--- NOTE | 2024-04-19 19:14 | PC.NURSE ---
This RN and staff had lengthy discussion with patient's son Luis (accompanied by Shantel, career services manager and Gabi statistics intern) regarding his concerns and disagreement with Crisis Intervention's decision to allow patient to discharge under safety contract. Hospitalist, Dr. Mondragon agrees with crisis assessment and plan but will hold on discharge orders until care team, patient, and family can reevaluate in the morning to come to a conclusion that everyone can agree on. During our long discussion with the patient and her son, Luis, voiced reasonable and serious concerns about the risks of his mother returning home only for her to attempt suicide again and/or repeat the cycle of her not caring for herself and requiring hospitalization to treat UTIs, confusion, and other health issues that are exacerbated during these episodes. When Luis would voice these concerns clearly to his mother she would either respond with something unrelated to the topic or joke about suicide stating that no one has a sense of humor anymore, I'm not meaning anything by it She continued I just feel like I am a burden to you (luis) and I've wanted to be for the last 40 years but I held on for you (luis) You're going to lose your job because of how much time you take having to care for me. She made further statements regarding this hospital and other facilities she's stayed in being prisons. Despite her being alert and oriented upon assessments and denying suicidal thoughts and denies having a plan in place, this RN and care team present this evening, have concerns that the patient may have intentions of harming herself again upon discharge. Care team will reevaluate in the morning along with crisis.
[2024-04-19] MEDS: PRAMIPEXOLE 0.5 MG TABLET PO (20:12)
[2024-04-19] MEDS: AMIODARONE HCL 200 MG TABLET PO (20:12)
[2024-04-19] MEDS: FAMOTIDINE 20 MG TABLET PO (20:12)
[2024-04-19] MEDS: allopurinoL 100 MG TABLET PO (20:12)
[2024-04-19] MEDS: levoFLOXacin 750 MG TABLET PO (20:13)
[2024-04-19] MEDS: buPROPion HCL XL (24 HR) 150 MG TABCR PO (20:13)
[2024-04-19] MEDS: DIVALPROEX SODIUM DR 250 MG TABEC 500 MG PO (20:13)
[2024-04-19 20:49] LABS: Glucose Point of Care 237 mg/dl (65-105)
[2024-04-19] MEDS: AMOXICILLIN/CLAVULANATE K 500-125 MG TAB 1 TABLET PO (20:56)
--- NOTE | 2024-04-19 21:09 | PC.NURSE ---
2000: Upon travel money advisor asked patient how she was doing. The patient replied not well . When asked to elaborate the patient said her and her son were fighting about why she was here. She stated she was here because she tried to commit suicide and her son doesn't want her to go home. RN discussed the severity of her suicide attempt and why its concerning. RN asked the patient if she still wanted to and she replied yes . The patient stated she there was a difference between wanting to and wanting to kill yourself. RN used active listening and provided reassurance. The patient became tearful and said I just can't believe this is happening at the end of my life. This RN remains extremely concerned that the patient is still actively suicidal. In addition to the above discussion the patient continues to talk about being a burden on her son and that the stress of it all is harming their relationship and damaging their closeness.
[2024-04-20] MEDS: VANCOMYCIN HCL 125 MG ORAL CAPSULE 250 MG PO ×4 (00:22→17:26)
[2024-04-20 04:49] VITALS: BP 141/60; PULSE 71; RESP 18; TEMP 36.6; O2SAT 100
[2024-04-20] MEDS: LEVOTHYROXINE SODIUM 75 MCG TABLET PO (04:51)
[2024-04-20 04:58] LABS: Basophils Absolute Auto 0.1 K/mm3 (0.0-0.1); Basophils Percent Auto 0.8 % (0.2-1.2); Eosinophils Absolute Auto 0.5 K/mm3 (0-0.3); Eosinophils Percent Auto 6.5 % (0-4.4); Hematocrit 32.1 % (37.0-47.0); Hemoglobin 9.8 g/dL (12.0-15.0); Immature Granulocyte Absolute 0.03 K/mm3 (0.00-0.031); Immature Granulocyte Percent A 0.4 % (0-0.5); Lymphocytes Absolute Auto 1.59 K/mm3 (0.9-3.2); Lymphocytes Percent Auto 19.9 % (18.3-44.2); Mean Corpuscular HGB Conc 30.5 g/dl (32-36); Mean Corpuscular Volume 98.2 fl (80-100); Mean Platelet Volume 9.9 fl (7.4-10.4); Monocytes Absolute Auto 0.5 K/mm3 (0.1-0.6); Monocytes Percent Auto 6.6 % (2.6-8.5); Neutrophils Absolute Auto 5.2 K/mm3 (1.3-6.7); Neutrophils Percent Auto 65.8 % (45.5-73.1); Platelet Count Result 223 k/mm3 (150-375); Red Blood Count 3.27 M/mm3 (4.2-5.4); Red Cell Distribution Width 16.3 % (11.5-14.5)
[2024-04-20 05:07] LABS: Alanine Aminotransferase 22 U/L (6-35); Albumin Level 3.6 g/dL (3.5-5.1); Alkaline Phosphatase 137 U/L (38-126); Anion Gap 9 mmol/L (4-12); Aspartate Amino Transferase 22 U/L (14-36); Bilirubin,Total 0.1 mg/dL (0.2-1.3); Blood Urea Nitrogen 38 mg/dL (7-17); Calcium 9.2 mg/dL (8.4-10.2); Carbon Dioxide 28 mmol/L (22-30); Chloride 98 mmol/L (98-107); Estimated CRCL calculation 22 ml/min; Estimated Glomerular Filt Rate 20; Glucose 357 mg/dL (65-110); Magnesium 2.2 mg/dL (1.6-2.3); Potassium 5.3 mmol/L (3.4-5.0); Sodium 135 mmol/L (137-145)
[2024-04-20 08:00] VITALS: BP 154/55; PULSE 73; RESP 18; TEMP 36.8; O2SAT 97
[2024-04-20 08:00] LABS: Glucose Point of Care 335 mg/dl (65-105)
[2024-04-20 08:54] VITALS: PULSE 79
[2024-04-20] MEDS: carvediloL 6.25 MG TABLET PO ×2 (08:54→19:31)
[2024-04-20] MEDS: INSULIN ASPART (*BKC) 100 UNITS/ML SUB-Q ×6 (08:54→19:26)
[2024-04-20] MEDS: CALCIUM/VITAMIN D 500 MG/5 MCG (200 I.U.) TABLET PO (08:59)
[2024-04-20] MEDS: OPTI-GEN TAB 1 TABLET PO ×2 (08:59→19:28)
[2024-04-20] MEDS: APIXABAN 5 MG TABLET PO ×2 (08:59→19:30)
[2024-04-20] MEDS: SACCHAROMYCES BOULARDII 250 MG CAPSULE PO ×3 (08:59→17:26)
[2024-04-20] MEDS: GABAPENTIN 100 MG CAPSULE PO ×2 (08:59→19:28)
[2024-04-20] MEDS: VENLAFAXINE HCL XR 75 MG CAP.ER.24H 300 MG PO (08:59)
[2024-04-20] MEDS: ISOSORBIDE DINITRATE 10 MG TABLET PO ×2 (08:59→19:30)
[2024-04-20] MEDS: MEMANTINE 10 MG TABLET PO ×2 (08:59→19:30)
[2024-04-20] MEDS: VITAMIN B COMPLEX CAPSULE 1 CAP PO (09:00)
[2024-04-20] MEDS: AMOXICILLIN/CLAVULANATE K 500-125 MG TAB 1 TABLET PO ×2 (09:00→19:30)
[2024-04-20] MEDS: HYDROCORTISONE 1% 30 GM CREAM 1 APPLIC TOPICAL ×2 (09:00→19:32)
--- NOTE | 2024-04-20 10:02 | PC.NURSE ---
Completed [facility] suicide assessment and it indicates no risk to self, however, following yesterdays concerning conversation with the patient and her son along with care coordination and charge nurse, the hospitalist assuming care for her is in agreement that she poses a risk to herself (per Shantel in care coordination). Pending assessment/evaluation from hospitalist. Per care coordination, crisis intervention will not be participating in care/planning any further.
--- NOTE | 2024-04-20 11:02 | PCNWS ---
Weekly nutritional screen. Patient is tolerating current diet with adequate intake. No weight loss reported. No nutritional needs at this time.
[2024-04-20 11:59] LABS: Glucose Point of Care 381 mg/dl (65-105)
[2024-04-20 14:00] VITALS: BP 147/74; PULSE 82; RESP 18; TEMP 36.5; O2SAT 96
--- NOTE | 2024-04-20 14:12 | PM.IMPN ---
Progress Note: A&P Assessment and Plan (1) C. difficile diarrhea: Code(s): A04.72 - Enterocolitis due to Clostridium difficile, not specified as recurrent Status: Acute (2) Hypoglycemia: Code(s): E16.2 - Hypoglycemia, unspecified Status: Acute (3) Suicide attempt: Code(s): T14.91XA - Suicide attempt, initial encounter Status: Acute (4) Intentional overdose of insulin: Code(s): T38.3X2A - Poisoning by insulin and oral hypoglycemic [antidiabetic] drugs, intentional self-harm, initial encounter Status: Acute (5) Type 2 diabetes mellitus: Code(s): E11.9 - Type 2 diabetes mellitus without complications Status: Acute Plan The patient is an active suicide risk. She requires inpatient psychiatry for complex management of major depressive disorder with suicidal ideations and attempt. Continue 1 on sitter. Care coordinators currently managing transfer. Provided understanding in her difficulties of managing her conditions and her depressive response to it. Given encouragement and provided initial strategies for cognitive behavioral modifications. Continue SILK HANGER Bupropion 150 mg p.o. q.h.s. Depakote 500 mg p.o. q.h.s., venlafaxine 300 mg p.o. q.day. Diastolic heart failure. She appears compensated however she takes Bumex 2 mg p.o. b.i.d. at home. That has not been restarted, restart at a smaller dose 1 mg p.o. b.i.d. on 04/20/2024. She has mild hyperkalemia potassium 5.3, recheck and follow with the re-initiation of Bumex. She had an ALBERTINA probably due to the admission events but that is improving. Continue vancomycin, she is no longer having diarrhea. Continue Augmentin and levofloxacin. Her blood sugars are uncontrolled. She is eating a bit more but still has low appetite. None the less, she is currently only on her mealtime 5 units t.i.d.. She usually takes long-acting glargine 30 units at night. Restart glargine 28 units q.h.s. and follow blood sugars. Cancel mealtime dosing. She voices extreme dissatisfaction with her inability to handle her diabetes. This is 1 of the main reason she feels a burden to herself and her son. Therefore, only use long-acting for now. She understands that this may perpetuate a lesser control of her diabetes but we agreed in the setting of her active suicide attempt and age consideration this would be a beneficial trade off. In consideration of her age and significant comorbidities she does wish to be DNR. She does agree to not harm herself as long as we are continuing to treat her and she is agreeable to inpatient psychiatry admission. Subjective Date/time seen: 04/20/24 14:12 Interval history: No acute overnight events. Patient is seen sitting up in chair, sitter at bedside. Her hospital course reviewed, she reiterates her depressive feelings and still feels a burden to her son. She feels she cannot manage her medical therapies by herself and does not want her son to be stressed. She currently lacks insight regarding proper cognitive response to her situation. She has no appetite. She reports if she continued to feel a burden at home she would just take more insulin than she did this last time. No other plans for suicide otherwise. Review of Systems Review of Systems: All systems reviewed & are unremarkable except as noted in HPI and below (Subjective) Exam Const: General: comfortable and no acute distress Other: A&O x3. Obese. Cooperative, lacks insight. Eyes: Pupils: Equal, round and reactive pupils present Neck: Neck: supple Resp: Effort & Inspection: normal respiratory effort Auscultation: clear to auscultation bilaterally Cardio: Rate: regular rate Rhythm: regular rhythm GI: GI Palp: Yes Soft to palpation and No Firmness to palpation present (GI) Extrem: General: no edema Objective Data Vital Signs Vital Signs: Vital Signs - 24 hr 04/19/24 20:12 04/19/24 20:13 04/19/24 20:00 Temperature 9
[2024-04-20 15:27] LABS: Hematocrit 30.7 % (37.0-47.0); Hemoglobin 9.8 g/dL (12.0-15.0); Mean Corpuscular HGB Conc 31.9 g/dl (32-36); Mean Corpuscular Hemoglobin 30.9 pg (26-34); Mean Corpuscular Volume 96.8 fl (80-100); Platelet Count Result 227 k/mm3 (150-375); Red Blood Count 3.17 M/mm3 (4.2-5.4); Red Cell Distribution Width 16.2 % (11.5-14.5)
[2024-04-20 15:39] LABS: Anion Gap 8 mmol/L (4-12); Blood Urea Nitrogen 37 mg/dL (7-17); Calcium 9.3 mg/dL (8.4-10.2); Carbon Dioxide 28 mmol/L (22-30); Chloride 99 mmol/L (98-107); Estimated CRCL calculation 24 ml/min; Estimated Glomerular Filt Rate 22; Glucose 323 mg/dL (65-110); Potassium 4.5 mmol/L (3.4-5.0); Sodium 135 mmol/L (137-145)
[2024-04-20 16:31] LABS: Glucose Point of Care 245 mg/dl (65-105)
[2024-04-20 16:31] LABS: SARS-CoV-2 RNA PCR Negative (Negative)
[2024-04-20] MEDS: BUMETANIDE 1 MG TABLET PO (17:26)
--- NOTE | 2024-04-20 18:38 | PC.NURSE ---
Report given to ELISEO Warren @ [facility] @[phone]
[2024-04-20 19:00] VITALS: BP 200/84; PULSE 77; RESP 18; TEMP 36.8; O2SAT 95
[2024-04-20] MEDS: allopurinoL 100 MG TABLET PO (19:28)
[2024-04-20] MEDS: buPROPion HCL XL (24 HR) 150 MG TABCR PO (19:28)
[2024-04-20] MEDS: levoFLOXacin 750 MG TABLET PO (19:29)
[2024-04-20] MEDS: PRAMIPEXOLE 0.5 MG TABLET PO (19:29)
[2024-04-20] MEDS: FAMOTIDINE 20 MG TABLET PO (19:29)
[2024-04-20] MEDS: DIVALPROEX SODIUM DR 250 MG TABEC 500 MG PO (19:30)
[2024-04-20 19:31] VITALS: PULSE 76; PULSE 77
[2024-04-20] MEDS: AMIODARONE HCL 200 MG TABLET PO (19:31)
[2024-04-20] MEDS: hydrALAZINE HCL 20 MG/ML VIAL 10 MG IV PUSH (19:32)
[2024-04-20] MEDS: INSULIN GLARGINE (*BKC) 100 UNITS/ML 28 UNITS SUB-Q (19:36)
[2024-04-20 19:42] LABS: Glucose Point of Care 283 mg/dl (65-105)
--- NOTE | 2024-04-20 20:26 | PC.NURSE ---
2000: Patient care transferred to EMS. Receiving RN at [place] notified.
--- NOTE | 2024-04-21 08:20 | PM.TDS ---
Transfer Discharge Sum: Prov Provider Date of admission: 04/13/24 10:55 Primary care physician: Sarbjit Lai MD Admitting clinician: Fredy Ahmadi MD Attending physician on admission: Migule Ahmadi Consults: 04/12/24 10:57 Consult to Physician Routine Comment: Consulting Provider: Coleen Pulido Reason for consultation: Intentional overdose Has provider been notified: Yes Attending physician on discharge: Joselyn Hirsch Discharging clinician: Joselyn Hirsch Anticipated date of transfer: 04/20/24 Receiving physician/facility: [facility] DS: Admitting Diagnosis Discharge Date 04/20/24 Admitting Diagnosis Suicide attempt DS: Discharge Diagnosis Discharge Diagnosis (1) C. difficile diarrhea: Code(s): A04.72 - Enterocolitis due to Clostridium difficile, not specified as recurrent Status: Acute (2) Hypoglycemia: Code(s): E16.2 - Hypoglycemia, unspecified Status: Acute (3) Suicide attempt: Code(s): T14.91XA - Suicide attempt, initial encounter Status: Acute (4) Intentional overdose of insulin: Code(s): T38.3X2A - Poisoning by insulin and oral hypoglycemic [antidiabetic] drugs, intentional self-harm, initial encounter Status: Acute (5) Type 2 diabetes mellitus: Code(s): E11.9 - Type 2 diabetes mellitus without complications Status: Acute Transfer Discharge Sum: Med Medications Active and Home Medications: Home Medications divalproex 500 mg tablet,delayed release (Depakote) 500 mg PO HS 03/06/22 [History Confirmed 04/12/24] vit C 250 mg-E 90 mg-zinc 40 mg-copper 1 [id number]-[id number] chew tablet (PreserVision AREDS-2) 1 tablet PO Q12H 03/27/23 [History Confirmed 04/12/24] evolocumab 140 mg/mL subcutaneous pen injector (Repatha SureClick) 140 mg subcut Q14D 07/13/23 [History Confirmed 04/12/24] apixaban 5 mg tablet (Eliquis) 5 mg PO Q12H 10/07/23 [History Confirmed 04/12/24] blood-glucose meter (Blood Glucose Monitoring kit) #1 ea 02/22/24 [Rx Confirmed 04/12/24] allopurinol 100 mg tablet (Zyloprim) 100 mg PO HS 04/04/24 [History Confirmed 04/12/24] amiodarone 200 mg tablet 200 mg PO HS 04/04/24 [History Confirmed 04/12/24] bumetanide 2 mg tablet 2 mg PO Q12H 04/04/24 [History Confirmed 04/12/24] bupropion HCl 150 mg 24 hr tablet, extended release (Wellbutrin XL) 150 mg PO HS 04/04/24 [History Confirmed 04/12/24] buspirone 15 mg tablet 15 mg PO HS 04/04/24 [History Confirmed 04/12/24] calcium carbonate 600 mg-vitamin D3 5 mcg (200 unit) tablet 1 tablet PO DAILY 04/04/24 [History Confirmed 04/12/24] carvedilol 6.25 mg tablet 6.25 mg PO Q12H 04/04/24 [History Confirmed 04/12/24] famotidine 20 mg tablet 20 mg PO HS 04/04/24 [History Confirmed 04/12/24] gabapentin 100 mg capsule (Neurontin) 100 mg PO Q12H 04/04/24 [History Confirmed 04/12/24] isosorbide dinitrate 10 mg tablet 10 mg PO Q12H 04/04/24 [History Confirmed 04/12/24] levothyroxine 75 mcg tablet (Euthyrox) 75 mcg PO 0604/04/24 [History Confirmed 04/12/24] memantine 10 mg tablet 10 mg PO Q12H 04/04/24 [History Confirmed 04/12/24] nystatin 100,000 unit/gram topical ointment 1 applic topical BID PRN Rash 04/04/24 [History Confirmed 04/12/24] pramipexole 0.25 mg tablet 0.5 mg PO HS 04/04/24 [History Confirmed 04/12/24] trospium 20 mg tablet 20 mg PO Q12H 04/04/24 [History Confirmed 04/12/24] venlafaxine 150 mg capsule,extended release 24 hr (Effexor XR) 300 mg PO DAILY 04/04/24 [History Confirmed 04/12/24] vitamin B complex 1 tablet PO DAILY 04/04/24 [History Confirmed 04/12/24] insulin aspart U-100 100 unit/mL subcutaneous solution (Novolog U-100 Insulin aspart) 5 unit (0.05 mL) subcut TIDWM #10 mL 04/09/24 [Rx Confirmed 04/12/24] insulin glargine 100 unit/mL subcutaneous solution (Lantus U-100 Insulin) 30 unit (0.3 mL) subcut DAILY #10 mL 04/09/24 [Rx Confirmed 04/12/24] Transfer Discharge Sum: Hosp Hospital Course Hospital course: Hospital course: 78 year old female anxiety,
== END 2024-04-20 20:00 | DRG 917 ==
LOC: ANHED 07:35 → ANHICU 12:14
PROVIDERS: Internal Medicine; Nurse Practitioner Family; Admitting Provider Internal Medicine; Emergency Provider Emergency Medicine; PCP Family Medicine; Visit Provider General Practice
DX: T38.3X2A Poisoning by insulin and oral hypoglycemic [antidiabetic] drugs, intentional self-harm, initial encounter (principal); I50.33 Acute on chronic diastolic (congestive) heart failure; I13.0 Hypertensive heart and chronic kidney disease with heart failure and stage 1 through stage 4 chronic kidney disease, or unspecified chronic kidney disease; N17.9 Acute kidney failure, unspecified; A04.72 Enterocolitis due to Clostridium difficile, not specified as recurrent; N39.0 Urinary tract infection, site not specified; B96.1 Klebsiella pneumoniae [K. pneumoniae] as the cause of diseases classified elsewhere; D63.1 Anemia in chronic kidney disease; E11.42 Type 2 diabetes mellitus with diabetic polyneuropathy; E11.22 Type 2 diabetes mellitus with diabetic chronic kidney disease; E78.2 Mixed hyperlipidemia; E11.649 Type 2 diabetes mellitus with hypoglycemia without coma; E03.9 Hypothyroidism, unspecified; F41.9 Anxiety disorder, unspecified; F32.A Depression, unspecified; G47.33 Obstructive sleep apnea (adult) (pediatric); G31.84 Mild cognitive impairment of uncertain or unknown etiology; G25.81 Restless legs syndrome; H35.30 Unspecified macular degeneration; I48.0 Paroxysmal atrial fibrillation; I48.91 Unspecified atrial fibrillation; M10.9 Gout, unspecified; N18.32 Chronic kidney disease, stage 3b; Z66 Do not resuscitate; Z20.822 Contact with and (suspected) exposure to COVID-19; Z11.52 Encounter for screening for COVID-19; Z99.89 Dependence on other enabling machines and devices; Z79.4 Long term (current) use of insulin; Z79.01 Long term (current) use of anticoagulants; Z85.3 Personal history of malignant neoplasm of breast; Z85.828 Personal history of other malignant neoplasm of skin; Z79.899 Other long term (current) drug therapy; Z95.5 Presence of coronary angioplasty implant and graft; Z90.49 Acquired absence of other specified parts of digestive tract; Z98.41 Cataract extraction status, right eye; Z98.42 Cataract extraction status, left eye; Z96.1 Presence of intraocular lens; Z96.641 Presence of right artificial hip joint
CPT/HCPCS: 36415; 36569; 80048; 80053; 80307; 81001; 81003; 82948; 83036; 83735; 84100; 84439; 84443; 85025; 85027; 87493; 87635; 87637; 87641; 93005; 96365; 96366; 96375; 97110; 97116; 97161; 97165; 97530; 99285; A9270; G0378; J0360; J0692; J0696; J1610; J1815

== ENCOUNTER 2024-06-08 07:49 | Outpatient (CLI) | payer MEDICARE, SELFPAY ==
--- NOTE | ~2024-06-08 | XR_ITS ---
EXAMINATION: XR barium swallow DATE: 06/08/2024 08:52 INDICATION: Dysphagia and regurgitation of food TECHNIQUE: The patient drank thick barium, gas-producing crystals, and thin barium. Fluoroscopic spot radiographs of the hypopharynx and esophagus were obtained. Fluoroscopy exposure time was 2.4 minut es. A total of 1320 images were obtained. Total DAP was 14.4 Gycm^2 COMPARISON: None. FINDINGS: The pharynx is symmetric and without evidence of mass lesion or mucosal irregularity. Mildl y prominent cricopharyngeus muscle with small thin esophageal web without significant stenosis positi oned approximately 1 cm more caudally. The more distal esophagus is normal without mass or stricture. Esophageal motility is normal. There is no hiatal hernia. Episode of gastroesophageal reflux was obs erved with Valsalva with water siphon. IMPRESSION: 1. Gastroesophageal reflux without hiatal hernia. 2. Proximal cervical esophageal web without significant stenosis position immediately caudal to the m ildly prominent cricopharyngeus. Reviewed, dictated and finalized at location A. IMPRESSION: 1. Gastroesophageal reflux without hiatal hernia. 2. 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
== END 2024-06-08 07:50 | disposition home or self-care (01) ==
PROVIDERS: PCP Family Medicine; Visit Provider Otolaryngology
DX: K21.9 Gastro-esophageal reflux disease without esophagitis (principal); K44.9 Diaphragmatic hernia without obstruction or gangrene; Q39.4 Esophageal web; K22.5 Diverticulum of esophagus, acquired
CPT/HCPCS: 74220

== ENCOUNTER 2024-07-20 16:02 | Inpatient (IN) | payer MEDICARE, SELFPAY ==
[2024-07-20] VITALS (8 sets, daily range): BP systolic 177–213; BP diastolic 75–80; PULSE 82–86; RESP 15–20; TEMP 36.3–36.7; O2SAT 88–98
--- NOTE | ~2024-07-20 | XR_ITS ---
CHEST RADIOGRAPH, PA AND LATERAL CLINICAL HISTORY: sob, COUGH . COMPARISON: 04/06/2024 TECHNIQUE: PA and lateral views of the chest. FINDINGS The cardiomediastinal silhouette is unremarkable. Interval development of a right-sided pleural effusion, an interval change when compared with March ex amin. Blunting of the left costophrenic sulcus suggesting a small left-sided pleural effusion. The remainder of the lungs are clear. Visualized osseous structures and soft tissues are unremarkable. IMPRESSION: Moderate right and small left-sided pleural effusions, an interval change from previous examination. No focal infiltrate Reviewed, dictated and finalized at location A. TENDED GROUND SENSOR SPECIALIST
--- NOTE | 2024-07-20 16:06 | ED_ITS ---
HPI - SOB/Dyspnea General Chief Complaint: Shortness of Breath/Dyspnea <Amy Cosby PA-C - Last Filed: 07/22/24 09:20> Stated Complaint: cant breath <Amy Cosby PA-C - Last Filed: 07/22/24 09:20> Time Seen by Provider: 07/20/24 16:06 <Amy Cosby PA-C - Last Filed: 07/22/24 09:20> Focused HPI: This is a 78 year old female that presents to the ER for dyspnea. Ongoing over the last couple of weeks. Reports lower extremity edema. Reports cough. Denies fever, chest pain. GENERAL: Elderly, well-nourished, and in no acute distress. HEAD: Normocephalic, atraumatic. CHEST: Clear to auscultation. ?No respiratory distress. HEART: Regular rate and rhythm.? NEURO: ?Alert and oriented x3. Patient screened in triage and initial orders placed.? ?Additional care and disposition to be based upon?diagnostic testing and treatment. <Amy Cosby PA-C - Last Filed: 07/22/24 09:20> History of Present Illness HPI Narrative: this 78-year-old female presents emergency department chief complaint of shortness of breath. The patient reports the last couple weeks she has been having increasing lower extremity edema increasing shortness of breath. Patient reports symptoms are worse whenever she lays flat. <Miguel Howard MD - Last Filed: 07/20/24 23:52> Related Data Home Medications: Home Medications Medication Instructions Recorded Confirmed divalproex 500 mg tablet,delayed 500 mg PO HS 03/06/22 07/21/24 release (Depakote) vit C 250 mg-E 90 mg-zinc 40 1 tablet PO Q12H 03/27/23 07/21/24 mg-copper 1 [id number] chew tablet (PreserVision AREDS-2) evolocumab 140 mg/mL subcutaneous 140 mg subcut Q14D 07/13/23 07/21/24 pen injector (Narda Bernard) bumetanide 2 mg tablet 2 mg PO Q12H 04/04/24 07/21/24 calcium 600 mg (as 1 tablet PO DAILY 04/04/24 07/21/24 carbonate)-vitamin D3 5 mcg (200 unit) tablet famotidine 20 mg tablet 20 mg PO HS 04/04/24 07/21/24 gabapentin 100 mg capsule 100 mg PO Q8H 04/04/24 07/21/24 (Neurontin) levothyroxine 75 mcg tablet 75 mcg PO 0630 04/04/24 07/21/24 (Euthyrox) memantine 10 mg tablet 10 mg PO Q12H 04/04/24 07/21/24 nystatin 100,000 unit/gram topical 1 applic topical BID PRN Rash 04/04/24 07/21/24 ointment vitamin B complex 1 tablet PO DAILY 04/04/24 07/21/24 allopurinol 100 mg tablet 100 mg PO DAILY 07/21/24 07/21/24 bupropion HCl 150 mg 24 hr tablet, 150 mg PO DAILY 07/21/24 07/21/24 extended release buspirone 15 mg tablet 15 mg PO DAILY 07/21/24 07/21/24 carvedilol 6.25 mg tablet 6.25 mg PO DAILY 07/21/24 07/21/24 pramipexole 0.25 mg tablet 0.25 mg PO BID 07/21/24 07/21/24 venlafaxine 75 mg capsule,extended 125 mg PO DAILY 07/21/24 07/21/24 release 24 hr (Effexor XR) <Amy Cosby PA-C - Last Filed: 07/22/24 09:20> Allergies/Adverse Reactions: Allergies Allergy/AdvReac Type Severity Reaction Status Date / Time [id number] Reductase Allergy Intermediate Other Verified 07/07/24 14:30 Inhibitor pseudoephedrine Allergy Unknown Hives Verified 07/07/24 14:30 NSAIDS (Non-Steroidal AdvReac Intermediate Other Verified 07/07/24 14:30 Anti-Inflamma oxycodone AdvReac Intermediate Itching Verified 07/07/24 14:30 atenolol AdvReac Mild Muscle Pain Verified 07/07/24 14:30 exenatide [From Bydureon] AdvReac Mild Diarrhea Verified 07/07/24 14:30 hydrocodone AdvReac Mild Itching Verified 07/07/24 14:30 [From Panlor (hydrocodone-acetamin)] prochlorperazine AdvReac Mild Itching Verified 07/07/24 14:30 [From Compazine] rice AdvReac Mild Heartburn Verified 07/07/24 14:30 <Amy Cosby PA-C - Last Filed: 07/22/24 09:20> Review of Systems Review of Systems: A 10 system review of systems was completed on the patient and is negative except for what is stated in the HPI. Nursing and ancillary documentation was reviewed. <Miguel Howard MD - Last Filed: 07/20/24 23:52> FOR[facility], LAT[facility] Past Medical History Medical History: Medical History Anemia Anxiety Ataxia Breast cancer Chronic anticoagulation Degeneration of lumbar or lumbosacral intervertebral disc Depression Diabetes mellitus type 2 in obese (~1989) A1c 10 on July 21, 2022 Diabetic peripheral neuropathy Diastolic heart failure Echocardiogram 05/2022: Normal left ventricular systolic function EF 65-70%, mildly increased left ventricular wall thickness, diastolic dysfunction grade 2, moderately elevated E/E 20, increased global longitudinal strain and-18%, mild mitral valve regurgitation, mild tricuspid regurgitation, moderate pulmonary hypertension with RVSP of [address] Ann Dysphagia Esophageal abnormality History of stress test Hypertension Hypothyroidism Knee osteoarthritis Macular degeneration Minimal cognitive impairment Mixed hyperlipidemia Normal esophagogastroduodenoscopy (EGD) Obstructive sleep apnea on CPAP Paroxysmal atrial fibrillation Restless leg syndrome Skin cancer Stage 3b chronic kidney disease (CKD) Dr. Eduardo Venous stasis dermatitis <Amy Cosby PA-C - Last Filed: 07/22/24 09:20> Surgical History Surgical History: Surgical History H/O cardiac catheterization H/O endoscopy H/O heart artery stent History of cholecystectomy History of reconstruction of right breast History of right hip replacement (~2017) History of right mastectomy Status post cataract extraction of both eyes with insertion of intraocular lens <Amy Cosby PA-C - Last Filed: 07/22/24 09:20> Family History Family History: Family History Father Hypertension COPD (chronic obstructive pulmonary disease) Heart disease Diabetes mellitus Mother Lung cancer Depression Sibling Acute basophilic leukemia Sepsis Diabetes mellitus Acute myocardial infarction Daughter Depression Drug overdose Sibling No problems noted. <Amy Cosby PA-C - Last Filed: 07/22/24 09:20> Social History Social History: Social History Social History: Surrogate medical decision maker: jayne Du. Code status: Full code. Smoking status: Never smoker Second hand tobacco smoke exposure: Yes Alcohol intake: never Substance use: never Substance use type: does not use Do You Feel Safe in your Home?: Yes Lack of Transportation: No Lack of Food: Never True Current Housing: I Have Housing Concerned About Future Housing: No Difficulty Paying Gas/Electric Bills: No Difficulty Paying for Meds: No Currently Unemployed: No Education: High School Diploma/GED Difficulty w/ Childcare or Family Care: No Living arrangements: alone Additional living arrangements comments: . Lives alone. Has 2 children, daughter . Occupation/Education: retired Additional occupation/education comments: [employer] Spiritual care concerns: No <Amy Cosby PA-C - Last Filed: 07/22/24 09:20> Exam Narrative: GENERAL: Well-appearing, well-nourished, and in no acute distress. HEAD: Normocephalic, atraumatic. EYES: PERRLA and EOMI. ENT: Nares clear, no rhinorrhea or epistaxis. Mucous membranes moist. NECK: Supple. CHEST: Clear to auscultation. No respiratory distress. HEART: Regular rate and rhythm. No murmur heard. Normal peripheral pulses. ABDOMEN: Soft, nontender, nondistended, normal active bowel sounds. EXTREMITIES: Normal range of motion. 2+ edema. SKIN: Warm, dry, no rash. NEURO: No focal deficits. Alert and oriented x3. PSYCH: Normal mood and affect. <Miguel Howadr MD - Last Filed: 07/20/24 23:52> Course Vital Signs Vital signs: Vital Signs Temperature 97.4 F L 07/20/24 16:06 Pulse Rate 85 07/20/24 16:06 Respiratory Rate 20 07/20/24 16:06 Blood Pressure 213/75 H 07/20/24 16:06 Pulse Oximetry 97 07/20/24 16:06 Temperature 98.0 F 07/22/24 07:35 Pulse Rate 64 07/22/24 08:09 Respiratory Rate 22 H 07/22/24 08:00 Blood Pressure 137/60 07/22/24 07:35 Pulse Oximetry 94 07/22/24 08:00 Oxygen Delivery Room Air 07/22/24 08:00 Oxygen Flow Rate 2 07/21/24 09:27 <Amy Cosby PA-C - Last Filed: 07/22/24 09:20> Vital Signs Temperature 97.4 F L 07/20/24 16:06 Pulse Rate 85 07/20/24 16:06 Respiratory Rate 20 07/20/24 16:06 Blood Pressure 213/75 H 07/20/24 16:06 Pulse Oximetry 97 07/20/24 16:06 Temperature 98.0 F 07/22/24 07:35 Pulse Rate 64 07/22/24 08:09 Respiratory Rate 22 H 07/22/24 08:00 Blood Pressure 137/60 07/22/24 07:35 Pulse Oximetry 94 07/22/24 08:00 Oxygen Delivery Room Air 07/22/24 08:00 Oxygen Flow Rate 2 07/21/24 09:27 <Miguel Howard MD - Last Filed: 07/20/24 23:52> MDM - SOB/Dyspnea MDM Narrative Medical decision making narrative: differential diagnosis includes pneumonia, CHF, renal failure laboratory studies were obtained on the patient showed a normal CBC although her hemoglobin has come down 8.5 electrolytes showed a creatinine 1.7 BNP was 4200 <Miguel Howard MD - Last Filed: 07/20/24 23:52> Lab Data Result diagrams: 07/22/24 08:05 07/22/24 08:05 <Amy Cosby PA-C - Last Filed: 07/22/24 09:20> Labs: Lab Results 07/20/24 07/20/24 07/21/24 Range/Units 16:27 23:55 03:42 WBC 7.2 (4.5-10.0) K/mm3 RBC 3.00 L (4.2-5.4) M/mm3 Hgb 8.5 L (12.0-15.0) g/dL Hct 27.8 L (37.0-47.0) % MCV 92.7 (80-100) fl MCH 28.3 (26-34) pg MCHC 30.6 L (32-36) g/dl RDW 16.4 H (11.5-14.5) % Plt Count 261 (150-375) k/mm3 MPV 9.1 (7.4-10.4) fl Immature Gran % (Auto) 0.4 (0-0.5) % Neut % (Auto) 77.3 H (45.5-73.1) % Lymph % (Auto) 13.4 L (18.3-44.2) % [place] % (Auto) 5.4 (2.6-8.5) % Eos % (Auto) 3.2 (0-4.4) % Baso % (Auto) 0.3 (0.2-1.2) % Lymph # (Auto) 0.96 (0.9-3.2) K/mm3 [place] # (Auto) 0.4 (0.1-0.6) K/mm3 Eos # (Auto) 0.2 (0-0.3) K/mm3 Baso # (Auto) 0.0 (0.0-0.1) K/mm3 Abs Immat Gran (auto) 0.03 (0.00-0.031) K/mm3 Absolute Neuts (auto) 5.6 (1.3-6.7) K/mm3 Absolute Nucleated RBC 0.000 (0.0-0.012) K/mm3 Nucleated RBC % 0.0 (0.0-0.2) % PT 16.8 H (11.1-14.7) Seconds INR 1.3 APTT 33.3 (22.3-36.8) Seconds Sodium 140 (137-145) mmol/L Potassium 4.4 (3.4-5.0) mmol/L Chloride 107 (98-107) mmol/L Carbon Dioxide 25 (22-30) mmol/L Anion Gap 8 (4-12) mmol/L BUN 26 H D (7-17) mg/dL Creatinine 1.70 H (0.7-1.0) mg/dL Estim Creat Clear Calc Not Reportable Estimated GFR 29 L (59 - ) Glucose 226 H (65-110) mg/dL POC Capillary Glucose (65-105) mg/dl Calcium 9.3 (8.4-10.2) mg/dL Total Bilirubin 0.4 (0.2-1.3) mg/dL AST 19 (14-36) U/L ALT 18 (6-35) U/L Alkaline Phosphatase 137 H (38-126) U/L Troponin I 0.044 H* 0.035 H* D (0.000-0.034) ng/mL NT-Pro-B Natriuret Pep 4200 H (19.9-100) pg/mL Total Protein 7.0 (6.3-8.2) g/dL Albumin 3.8 (3.5-5.1) g/dL Lipase 20 L (23-300) U/L 07/21/24 07/21/24 Range/Units 07:32 07:50 WBC (4.5-10.0) K/mm3 RBC (4.2-5.4) M/mm3 Hgb (12.0-15.0) g/dL Hct (37.0-47.0) % MCV (80-100) fl MCH (26-34) pg MCHC (32-36) g/dl RDW (11.5-14.5) % Plt Count (150-375) k/mm3 MPV (7.4-10.4) fl Immature Gran % (Auto) (0-0.5) % Neut % (Auto) (45.5-73.1) % Lymph % (Auto) (18.3-44.2) % [place] % (Auto) (2.6-8.5) % Eos % (Auto) (0-4.4) % Baso % (Auto) (0.2-1.2) % Lymph # (Auto) (0.9-3.2) K/mm3 [place] # (Auto) (0.1-0.6) K/mm3 Eos # (Auto) (0-0.3) K/mm3 Baso # (Auto) (0.0-0.1) K/mm3 Abs Immat Gran (auto) (0.00-0.031) K/mm3 Absolute Neuts (auto) (1.3-6.7) K/mm3 Absolute Nucleated RBC (0.0-0.012) K/mm3 Nucleated RBC % (0.0-0.2) % PT (11.1-14.7) Seconds INR APTT (22.3-36.8) Seconds Sodium (137-145) mmol/L Potassium (3.4-5.0) mmol/L Chloride (98-107) mmol/L Carbon Dioxide (22-30) mmol/L Anion Gap (4-12) mmol/L BUN (7-17) mg/dL Creatinine (0.7-1.0) mg/dL Estim Creat Clear Calc Estimated GFR (59 - ) Glucose (65-110) mg/dL POC Capillary Glucose 199 H (65-105) mg/dl Calcium (8.4-10.2) mg/dL Total Bilirubin (0.2-1.3) mg/dL AST (14-36) U/L ALT (6-35) U/L Alkaline Phosphatase (38-126) U/L Troponin I 0.038 H* (0.000-0.034) ng/mL NT-Pro-B Natriuret Pep (19.9-100) pg/mL Total Protein (6.3-8.2) g/dL Albumin (3.5-5.1) g/dL Lipase (23-300) U/L <Amy Cosby PA-C - Last Filed: 07/22/24 09:20> Lab Results 07/20/24 07/20/24 07/21/24 Range/Units 16:27 23:55 03:42 WBC 7.2 (4.5-10.0) K/mm3 RBC 3.00 L (4.2-5.4) M/mm3 Hgb 8.5 L (12.0-15.0) g/dL Hct 27.8 L (37.0-47.0) % MCV 92.7 (80-100) fl MCH 28.3 (26-34) pg MCHC 30.6 L (32-36) g/dl RDW 16.4 H (11.5-14.5) % Plt Count 261 (150-375) k/mm3 MPV 9.1 (7.4-10.4) fl Immature Gran % (Auto) 0.4 (0-0.5) % Neut % (Auto) 77.3 H (45.5-73.1) % Lymph % (Auto) 13.4 L (18.3-44.2) % [place] % (Auto) 5.4 (2.6-8.5) % Eos % (Auto) 3.2 (0-4.4) % Baso % (Auto) 0.3 (0.2-1.2) % Lymph # (Auto) 0.96 (0.9-3.2) K/mm3 [place] # (Auto) 0.4 (0.1-0.6) K/mm3 Eos # (Auto) 0.2 (0-0.3) K/mm3 Baso # (Auto) 0.0 (0.0-0.1) K/mm3 Abs Immat Gran (auto) 0.03 (0.00-0.031) K/mm3 Absolute Neuts (auto) 5.6 (1.3-6.7) K/mm3 Absolute Nucleated RBC 0.000 (0.0-0.012) K/mm3 Nucleated RBC % 0.0 (0.0-0.2) % PT 16.8 H (11.1-14.7) Seconds INR 1.3 APTT 33.3 (22.3-36.8) Seconds Sodium 140 (137-145) mmol/L Potassium 4.4 (3.4-5.0) mmol/L Chloride 107 (98-107) mmol/L Carbon Dioxide 25 (22-30) mmol/L Anion Gap 8 (4-12) mmol/L BUN 26 H D (7-17) mg/dL Creatinine 1.70 H (0.7-1.0) mg/dL Estim Creat Clear Calc Not Reportable Estimated GFR 29 L (59 - ) Glucose 226 H (65-110) mg/dL POC Capillary Glucose (65-105) mg/dl Calcium 9.3 (8.4-10.2) mg/dL Total Bilirubin 0.4 (0.2-1.3) mg/dL AST 19 (14-36) U/L ALT 18 (6-35) U/L Alkaline Phosphatase 137 H (38-126) U/L Troponin I 0.044 H* 0.035 H* D (0.000-0.034) ng/mL NT-Pro-B Natriuret Pep 4200 H (19.9-100) pg/mL Total Protein 7.0 (6.3-8.2) g/dL Albumin 3.8 (3.5-5.1) g/dL Lipase 20 L (23-300) U/L 07/21/24 07/21/24 Range/Units 07:32 07:50 WBC (4.5-10.0) K/mm3 RBC (4.2-5.4) M/mm3 Hgb (12.0-15.0) g/dL Hct (37.0-47.0) % MCV (80-100) fl MCH (26-34) pg MCHC (32-36) g/dl RDW (11.5-14.5) % Plt Count (150-375) k/mm3 MPV (7.4-10.4) fl Immature Gran % (Auto) (0-0.5) % Neut % (Auto) (45.5-73.1) % Lymph % (Auto) (18.3-44.2) % [place] % (Auto) (2.6-8.5) % Eos % (Auto) (0-4.4) % Baso % (Auto) (0.2-1.2) % Lymph # (Auto) (0.9-3.2) K/mm3 [place] # (Auto) (0.1-0.6) K/mm3 Eos # (Auto) (0-0.3) K/mm3 Baso # (Auto) (0.0-0.1) K/mm3 Abs Immat Gran (auto) (0.00-0.031) K/mm3 Absolute Neuts (auto) (1.3-6.7) K/mm3 Absolute Nucleated RBC (0.0-0.012) K/mm3 Nucleated RBC % (0.0-0.2) % PT (11.1-14.7) Seconds INR APTT (22.3-36.8) Seconds Sodium (137-145) mmol/L Potassium (3.4-5.0) mmol/L Chloride (98-107) mmol/L Carbon Dioxide (22-30) mmol/L Anion Gap (4-12) mmol/L BUN (7-17) mg/dL Creatinine (0.7-1.0) mg/dL Estim Creat Clear Calc Estimated GFR (59 - ) Glucose (65-110) mg/dL POC Capillary Glucose 199 H (65-105) mg/dl Calcium (8.4-10.2) mg/dL Total Bilirubin (0.2-1.3) mg/dL AST (14-36) U/L ALT (6-35) U/L Alkaline Phosphatase (38-126) U/L Troponin I 0.038 H* (0.000-0.034) ng/mL NT-Pro-B Natriuret Pep (19.9-100) pg/mL Total Protein (6.3-8.2) g/dL Albumin (3.5-5.1) g/dL Lipase (23-300) U/L <Miguel Howard MD - Last Filed: 07/20/24 23:52> Imaging Data Radiologist's impression: ITS Impressions Chest X-Ray 07/20/24 16:47 IMPRESSION: Moderate right and small left-sided pleural effusions, an interval change from previous examination. No focal infiltrate <Amy Cosby PA-C - Last Filed: 07/22/24 09:20> Critical Care Time Critical Care Time Critical Care Time: No <Amy Cosby PA-C - Last Filed: 07/22/24 09:20> Discharge Plan Discharge Clinical Impression: Acute CHF <Amy Cosby PA-C - Last Filed: 07/22/24 09:20> Patient Disposition: Still a Patient <Amy Cosby PA-C - Last Filed: 07/22/24 09:20> Condition: Stable <Amy Cosby PA-C - Last Filed: 07/22/24 09:20> Time of Disposition: 23:51 <Amy Cosby PA-C - Last Filed: 07/22/24 09:20> 23:51 <Miguel Howard MD - Last Filed: 07/20/24 23:52>
--- NOTE | 2024-07-20 16:09 | ECG_ITS ---
Test Date: 2024-07-20 16:29:41 Measurements Intervals [place] Rate: 79 P: 80 LA: 175 QRS: 59 QRSD: 78 T: 55 QT: 414 QTc: 476 Interpretive Statements SINUS RHYTHM LOW QRS VOLTAGE IN PRECORDIAL LEADS BASELINE ARTIFACT- I, II, AVR BORDERLINE ECG Compared to ECG 04/12/2024 06:50:26 Low QRS voltage now present Electronically Signed On 07-20-2024 18:26:33 AUTO BODY SERVICE MECHANIC by Anupam Mcdowell D.O.
[2024-07-20 16:35] LABS: Basophils Percent Auto 0.3 % (0.2-1.2); Eosinophils Absolute Auto 0.2 K/mm3 (0-0.3); Eosinophils Percent Auto 3.2 % (0-4.4); Hematocrit 27.8 % (37.0-47.0); Hemoglobin 8.5 g/dL (12.0-15.0); Immature Granulocyte Absolute 0.03 K/mm3 (0.00-0.031); Immature Granulocyte Percent A 0.4 % (0-0.5); Lymphocytes Absolute Auto 0.96 K/mm3 (0.9-3.2); Lymphocytes Percent Auto 13.4 % (18.3-44.2); Mean Corpuscular HGB Conc 30.6 g/dl (32-36); Mean Corpuscular Hemoglobin 28.3 pg (26-34); Mean Corpuscular Volume 92.7 fl (80-100); Mean Platelet Volume 9.1 fl (7.4-10.4); Monocytes Absolute Auto 0.4 K/mm3 (0.1-0.6); Monocytes Percent Auto 5.4 % (2.6-8.5); Neutrophils Absolute Auto 5.6 K/mm3 (1.3-6.7); Neutrophils Percent Auto 77.3 % (45.5-73.1); Platelet Count Result 261 k/mm3 (150-375); Red Cell Distribution Width 16.4 % (11.5-14.5); White Blood Count 7.2 K/mm3 (4.5-10.0)
[2024-07-20 16:45] LABS: Alanine Aminotransferase 18 U/L (6-35); Albumin Level 3.8 g/dL (3.5-5.1); Alkaline Phosphatase 137 U/L (38-126); Anion Gap 8 mmol/L (4-12); Aspartate Amino Transferase 19 U/L (14-36); Bilirubin,Total 0.4 mg/dL (0.2-1.3); Blood Urea Nitrogen 26 mg/dL (7-17); Calcium 9.3 mg/dL (8.4-10.2); Carbon Dioxide 25 mmol/L (22-30); Chloride 107 mmol/L (98-107); Estimated Glomerular Filt Rate 29; Glucose 226 mg/dL (65-110); Lipase 20 U/L (23-300); Potassium 4.4 mmol/L (3.4-5.0); Sodium 140 mmol/L (137-145)
[2024-07-20 16:53] LABS: INR 1.3; Partial Thromboplastin Time 33.3 Seconds (22.3-36.8); Prothrombin Time 16.8 Seconds (11.1-14.7)
[2024-07-20 17:05] LABS: NT Pro B Type Natriuretic Pept 4200 pg/mL (19.9-100)
[2024-07-20] MEDS: FUROSEMIDE INJ 40 MG/4 ML VIAL IV PUSH (23:26)
[2024-07-21] VITALS (24 sets, daily range): BP systolic 143–186; BP diastolic 55–88; PULSE 80–107; RESP 20–32; TEMP 36.6–37.1; O2SAT 94–99; BMI 44.1
[2024-07-21 00:29] LABS: Troponin I 0.044 ng/mL (0.000-0.034)
--- NOTE | 2024-07-21 01:51 | ADMGEN ---
This patient, Aleksandra Berman, was admitted to IMU Room 211-01. Patient/family oriented to hospital policies and general routines including ID bracelet, bed and alarms, visiting hours, pain management, procedures, bathroom and other care routines, personal items, smoking policy, room service/diet, and visiting hours. Information on how to activate the Rapid Response Team has been discussed. Patient/Family are encouraged to report perceived risks to care and to ask questions if they do not understand what they are told or what they should do.
[2024-07-21 04:10] LABS: Troponin I 0.035 ng/mL (0.000-0.034)
[2024-07-21 08:03] LABS: Glucose Point of Care 199 mg/dl (65-105)
[2024-07-21 08:44] LABS: Troponin I 0.038 ng/mL (0.000-0.034)
[2024-07-21] MEDS: FUROSEMIDE INJ 40 MG/4 ML VIAL IV PUSH (09:15)
--- NOTE | 2024-07-21 10:46 | PM.IMPN ---
Subjective Date/time seen: 07/21/24 10:46 Objective Data Vital Signs Vital Signs: Vital Signs - 24 hr 07/20/24 16:06 07/20/24 19:14 07/20/24 22:49 Temperature 97.4 F L 98.1 F Pulse Rate 85 82 Respiratory Rate 20 20 Blood Pressure 213/75 H 177/77 H Pulse Oximetry 97 97 95 Oxygen Delivery Room Air Oxygen Flow Rate 07/20/24 22:52 07/20/24 23:42 07/20/24 23:37 Temperature Pulse Rate 86 86 Respiratory Rate 19 15 Blood Pressure 182/80 H 186/76 H Pulse Oximetry 95 98 88 L Oxygen Delivery Room Air Oxygen Flow Rate 07/20/24 23:43 07/20/24 23:57 07/21/24 01:25 Temperature 98.6 F Pulse Rate 93 Respiratory Rate 22 H Blood Pressure 174/88 H Pulse Oximetry 98 97 95 Oxygen Delivery Nasal Cannula Room Air Oxygen Flow Rate 2 07/21/24 02:00 07/21/24 03:15 07/21/24 02:30 Temperature 98.1 F Pulse Rate 88 90 88 Respiratory Rate 23 H 23 H Blood Pressure 186/77 H Pulse Oximetry 99 99 Oxygen Delivery Nasal Cannula Oxygen Flow Rate 2 07/21/24 02:30 07/21/24 04:45 07/21/24 05:38 Temperature Pulse Rate 88 107 H 96 Respiratory Rate 27 H Blood Pressure Pulse Oximetry Oxygen Delivery CPAP Oxygen Flow Rate 07/21/24 07:36 07/21/24 09:27 07/21/24 08:00 Temperature 98.2 F Pulse Rate 86 86 Respiratory Rate 28 H 28 H Blood Pressure 183/70 H Pulse Oximetry 96 98 98 Oxygen Delivery Nasal Cannula Nasal Cannula Oxygen Flow Rate 2 1 07/21/24 08:00 07/21/24 10:00 Temperature Pulse Rate 86 83 Respiratory Rate Blood Pressure Pulse Oximetry Oxygen Delivery Oxygen Flow Rate Intake/Output Intake/Output: Intake & Output 07/18/24 07/19/24 07/20/24 07/21/24 23:59 23:59 23:59 23:59 Intake Total 440 Output Total 1100 Balance -660 Meds/Results Medications: Active Medications Generic Name Dose Route Start Last Admin Trade Name Freq PRN Reason Stop Dose Admin Furosemide 40 mg 07/21/24 09:00 07/21/24 09:15 Furosemide Inj 40 Mg/4 Ml Vial IV PUSH 40 mg Q12HR NICOLE Administration Radiology Results: ITS Impressions Chest X-Ray 07/20/24 16:47 IMPRESSION: Moderate right and small left-sided pleural effusions, an interval change from previous examination. No focal infiltrate Labs Labs: Laboratory Results - last 24 hr 07/20/24 07/20/24 07/21/24 16:27 23:55 03:42 WBC 7.2 RBC 3.00 L Hgb 8.5 L Hct 27.8 L MCV 92.7 MCH 28.3 MCHC 30.6 L RDW 16.4 H Plt Count 261 MPV 9.1 Immature Gran % (Auto) 0.4 Neut % (Auto) 77.3 H Lymph % (Auto) 13.4 L [place] % (Auto) 5.4 Eos % (Auto) 3.2 Baso % (Auto) 0.3 Lymph # (Auto) 0.96 [place] # (Auto) 0.4 Eos # (Auto) 0.2 Baso # (Auto) 0.0 Abs Immat Gran (auto) 0.03 Absolute Neuts (auto) 5.6 Absolute Nucleated RBC 0.000 Nucleated RBC % 0.0 PT 16.8 H INR 1.3 APTT 33.3 Sodium 140 Potassium 4.4 Chloride 107 Carbon Dioxide 25 Anion Gap 8 BUN 26 H D Creatinine 1.70 H Estim Creat Clear Calc Not Reportable Estimated GFR 29 L Glucose 226 H POC Capillary Glucose Calcium 9.3 Total Bilirubin 0.4 AST 19 ALT 18 Alkaline Phosphatase 137 H Troponin I 0.044 H* 0.035 H* D NT-Pro-B Natriuret Pep 4200 H Total Protein 7.0 Albumin 3.8 Lipase 20 L 07/21/24 07/21/24 07:32 07:50 WBC RBC Hgb Hct MCV MCH MCHC RDW Plt Count MPV Immature Gran % (Auto) Neut % (Auto) Lymph % (Auto) [place] % (Auto) Eos % (Auto) Baso % (Auto) Lymph # (Auto) [place] # (Auto) Eos # (Auto) Baso # (Auto) Abs Immat Gran (auto) Absolute Neuts (auto) Absolute Nucleated RBC Nucleated RBC % PT INR APTT Sodium Potassium Chloride Carbon Dioxide Anion Gap BUN Creatinine Estim Creat Clear Calc Estimated GFR Glucose POC Capillary Glucose 199 H Calcium Total Bilirubin AST ALT Alkaline Phosphatase Troponin I 0.038 H* NT-Pro-B Natriuret Pep Total Protein Albumin Lipase
[2024-07-21] MEDS: MEMANTINE 10 MG TABLET PO ×2 (11:37→21:24)
[2024-07-21] MEDS: APIXABAN 5 MG TABLET PO ×2 (11:37→21:23)
[2024-07-21] MEDS: ISOSORBIDE DINITRATE 10 MG TABLET PO ×2 (11:37→21:24)
[2024-07-21] MEDS: OPTI-GEN TAB 1 TABLET PO ×2 (11:37→21:26)
[2024-07-21] MEDS: BUMETANIDE 1 MG TABLET 2 MG PO (11:38)
[2024-07-21] MEDS: hydroCHLOROthiazide 25 MG TABLET PO (11:39)
[2024-07-21] MEDS: amLODIPine BESYLATE 10 MG TABLET PO (11:39)
[2024-07-21] MEDS: INSULIN ASPART (*BKC) 100 UNITS/ML 14 UNITS SUB-Q (11:40)
[2024-07-21] MEDS: INSULIN ASPART (*BKC) 100 UNITS/ML SUB-Q (11:41)
[2024-07-21 11:47] LABS: Basophils Percent Auto 0.5 % (0.2-1.2); Eosinophils Absolute Auto 0.3 K/mm3 (0-0.3); Eosinophils Percent Auto 3.1 % (0-4.4); Hematocrit 28.1 % (37.0-47.0); Hemoglobin 8.6 g/dL (12.0-15.0); Immature Granulocyte Absolute 0.04 K/mm3 (0.00-0.031); Immature Granulocyte Percent A 0.5 % (0-0.5); Lymphocytes Absolute Auto 0.88 K/mm3 (0.9-3.2); Lymphocytes Percent Auto 10.8 % (18.3-44.2); Mean Corpuscular HGB Conc 30.6 g/dl (32-36); Mean Corpuscular Hemoglobin 27.8 pg (26-34); Mean Corpuscular Volume 90.9 fl (80-100); Mean Platelet Volume 9.2 fl (7.4-10.4); Monocytes Absolute Auto 0.5 K/mm3 (0.1-0.6); Monocytes Percent Auto 5.5 % (2.6-8.5); Neutrophils Absolute Auto 6.5 K/mm3 (1.3-6.7); Neutrophils Percent Auto 79.6 % (45.5-73.1); Platelet Count Result 283 k/mm3 (150-375); Red Blood Count 3.09 M/mm3 (4.2-5.4); Red Cell Distribution Width 16.4 % (11.5-14.5); White Blood Count 8.2 K/mm3 (4.5-10.0)
--- NOTE | 2024-07-21 11:49 | P.CONCA_ITS ---
Assessment and Plan Assessment and plan (1) Acute CHF: Code(s): I50.9 - Heart failure, unspecified Status: Acute Assessment and Plan: Acute on chronic diastolic heart failure. * Continue with aggressive diuresis. She is on both Bumex and furosemide - will stop furosemide and shift Bumex to IV * Daily weights * Accurate I&O * Daily BMP while diuresing * CHF counseling * 1800cc fluid restriction * Her renal function looks better now than in the past - perhaps we can shift her medical regimen to manage her HFpEF better. Will start by adding jardiance. (2) Atrial fibrillation: Qualifiers: Atrial fibrillation type: unspecified Qualified Code(s): I48.91 - Unspecified atrial fibrillation Code(s): I48.91 - Unspecified atrial fibrillation Status: Acute Assessment and Plan: In sinus rhythm. Continue amiodarone and apixaban for a/c. (3) Coronary artery disease: Code(s): I25.10 - Atherosclerotic heart disease of [place] coronary artery without angina pectoris Status: Acute Assessment and Plan: Stable, not having any anginal symptoms. She takes Repatha. (4) Stage 3b chronic kidney disease (CKD): Code(s): N18.32 - Chronic kidney disease, stage 3b Status: Acute Assessment and Plan: Stable. Daily BMP while diuresing (5) Anemia: Qualifiers: Anemia type: unspecified type Qualified Code(s): D64.9 - Anemia, unspecified Code(s): D64.9 - Anemia, unspecified Status: Acute Assessment and Plan: Workup per hospitalist. History of Present Illness History of Present Illness Consult date/time: 07/21/24 11:49 Requesting physician: Kathleen Smiley MD Consult reason: Other (elevated troponin) Reason For Visit: Acute exacerbation of CHF Narrative: Aleksandra Berman is a 78 year old woman with coronary artery disease status post multivessel PCI with Dr. Rouse in Jun 2023, paroxysmal atrial fibrillation, heart failure with preserved EF, and hypertension. She is hospitalized now because of shortness of breath and lower extremity edema. She began having increasing shortness of breath and bilateral lower extremity edema about a week and a half ago. These symptoms gradually worsened and she developed sores on her lower legs. She is denying any chest pain, palpitations, syncope. She does have orthopnea. According to her son (who manages her meds) they have been out of Bumex for a couple of weeks and unable to get a refill. She used to follow with Dr. Membreno but has not established care with a new doctor since Dr. Membreno's departure from our practice. Patient did have an appointment with the nurse practitioner scheduled but she did not show up for that appointment. She is comfortable at the time of my evaluation breathing with supplemental oxygen in place. Review of Systems Review of Systems: All systems reviewed & are unremarkable except as noted in HPI and below PMFSH Past Medical History Medical History Anemia Anxiety Ataxia Breast cancer Chronic anticoagulation Degeneration of lumbar or lumbosacral intervertebral disc Depression Diabetes mellitus type 2 in obese (~1989) A1c 10 on July 21, 2022 Diabetic peripheral neuropathy Diastolic heart failure Echocardiogram 05/2022: Normal left ventricular systolic function EF 65-70%, mildly increased left ventricular wall thickness, diastolic dysfunction grade 2, moderately elevated E/E 20, increased global longitudinal strain and-18%, mild mitral valve regurgitation, mild tricuspid regurgitation, moderate pulmonary hypertension with RVSP of [address] Ann Dysphagia Esophageal abnormality History of stress test Hypertension Hypothyroidism Knee osteoarthritis Macular degeneration Minimal cognitive impairment Mixed hyperlipidemia Normal esophagogastroduodenoscopy (EGD) Obstructive sleep apnea on CPAP Paroxysmal atrial fibrillation Restless leg syndrome Skin cancer Stage 3b chronic kidney disease (CKD) Dr. Eduardo Venous stasis dermatitis Surgical History Surgical History H/O cardiac catheterization H/O endoscopy H/O heart artery stent History of cholecystectomy History of reconstruction of right breast History of right hip replacement (~2017) History of right mastectomy Status post cataract extraction of both eyes with insertion of intraocular lens Family History Family History Father Hypertension COPD (chronic obstructive pulmonary disease) Heart disease Diabetes mellitus Mother Lung cancer Depression Sibling Acute basophilic leukemia Sepsis Diabetes mellitus Acute myocardial infarction Daughter Depression Drug overdose Sibling No problems noted. Social History Social History Social History: Surrogate medical decision maker: Luis Rome, jayne. Code status: Full code. Smoking status: Never smoker Second hand tobacco smoke exposure: Yes Alcohol intake: never Substance use: never Substance use type: does not use Do You Feel Safe in your Home?: Yes Lack of Transportation: No Lack of Food: Never True Current Housing: I Have Housing Concerned About Future Housing: No Difficulty Paying Gas/Electric Bills: No Difficulty Paying for Meds: No Currently Unemployed: No Education: High School Diploma/GED Difficulty w/ Childcare or Family Care: No Living arrangements: alone Additional living arrangements comments: . Lives alone. Has 2 children, daughter . 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 Spiritual care concerns: No Meds Home Medications and Allergies Home Medications Medication Instructions Recorded Confirmed Type divalproex 500 mg tablet,delayed 500 mg PO HS 03/06/22 07/21/24 History release (Depakote) vit C 250 mg-E 90 mg-zinc 40 1 tablet PO Q12H 03/27/23 07/21/24 History mg-copper 1 [id number] chew tablet (PreserVision AREDS-2) evolocumab 140 mg/mL subcutaneous 140 mg subcut Q14D 07/13/23 07/21/24 History pen injector (Narda Bernard) blood-glucose meter (Blood Glucose #1 ea 02/22/24 07/21/24 Rx Monitoring kit) bumetanide 2 mg tablet 2 mg PO Q12H 04/04/24 07/21/24 History calcium 600 mg (as 1 tablet PO DAILY 04/04/24 07/21/24 History carbonate)-vitamin D3 5 mcg (200 unit) tablet famotidine 20 mg tablet 20 mg PO HS 04/04/24 07/21/24 History gabapentin 100 mg capsule 100 mg PO Q8H 04/04/24 07/21/24 History (Neurontin) levothyroxine 75 mcg tablet 75 mcg PO 0604/04/24 07/21/24 History (Euthyrox) memantine 10 mg tablet 10 mg PO Q12H 04/04/24 07/21/24 History nystatin 100,000 unit/gram topical 1 applic topical BID PRN Rash 04/04/24 07/21/24 History ointment vitamin B complex 1 tablet PO DAILY 04/04/24 07/21/24 History apixaban 5 mg tablet (Eliquis) 5 mg PO Q12H #90 tabs 04/26/24 07/21/24 Rx omeprazole 40 mg capsule,delayed 40 mg PO DAILY laryngopharyngeal 05/03/24 07/21/24 Rx release reflux #30 caps insulin lispro 100 unit/mL 14 unit (0.14 mL) subcut .tidac 90 05/19/24 07/21/24 Rx subcutaneous pen (Humalog KwikPen days #54 mL (U-100) Insulin) insulin glargine U-300 conc 300 45 unit (0.15 mL) subcut DAILY 90 05/20/24 07/21/24 Rx unit/mL (3 mL) subcutaneous pen days #15 mL (Toujeo Max U-300 SoloStar) isosorbide dinitrate 10 mg tablet 10 mg PO Q12H #90 tabs 05/31/24 07/21/24 Rx amiodarone 200 mg tablet 200 mg PO HS #30 tabs 06/24/24 07/21/24 Rx trospium 20 mg tablet 20 mg PO Q12H #30 tabs 06/24/24 07/21/24 Rx mupirocin 2 % topical ointment 1 applic topical BID #22 grams 07/12/24 07/21/24 Rx allopurinol 100 mg tablet 100 mg PO DAILY 07/21/24 07/21/24 History bupropion HCl 150 mg 24 hr tablet, 150 mg PO DAILY 07/21/24 07/21/24 History extended release buspirone 15 mg tablet 15 mg PO DAILY 07/21/24 07/21/24 History carvedilol 6.25 mg tablet 6.25 mg PO DAILY 07/21/24 07/21/24 History pramipexole 0.25 mg tablet 0.25 mg PO BID 07/21/24 07/21/24 History venlafaxine 75 mg capsule,extended 125 mg PO DAILY 07/21/24 07/21/24 History release 24 hr (Effexor XR) Allergies Allergy/AdvReac Type Severity Reaction Status Date / Time [id number] Reductase Allergy Intermediate Other Verified 07/07/24 14:30 Inhibitor pseudoephedrine Allergy Unknown Hives Verified 07/07/24 14:30 NSAIDS (Non-Steroidal AdvReac Intermediate Other Verified 07/07/24 14:30 Anti-Inflamma oxycodone AdvReac Intermediate Itching Verified 07/07/24 14:30 atenolol AdvReac Mild Muscle Pain Verified 07/07/24 14:30 exenatide [From Bydureon] AdvReac Mild Diarrhea Verified 07/07/24 14:30 hydrocodone AdvReac Mild Itching Verified 07/07/24 14:30 [From Panlor (hydrocodone-acetamin)] prochlorperazine AdvReac Mild Itching Verified 07/07/24 14:30 [From Compazine] rice AdvReac Mild Heartburn Verified 07/07/24 14:30 Vital Signs Vital Signs - 24 hr 07/20/24 16:06 07/20/24 19:14 07/20/24 22:49 Temperature 36.3 C L 36.7 C Pulse Rate 85 82 Respiratory Rate 20 20 Blood Pressure 213/75 H 177/77 H Pulse Oximetry 97 97 95 Oxygen Delivery Room Air Oxygen Flow Rate 07/20/24 22:52 07/20/24 23:42 07/20/24 23:37 Temperature Pulse Rate 86 86 Respiratory Rate 19 15 Blood Pressure 182/80 H 186/76 H Pulse Oximetry 95 98 88 L Oxygen Delivery Room Air Oxygen Flow Rate 07/20/24 23:43 07/20/24 23:57 07/21/24 01:25 Temperature 37.0 C Pulse Rate 93 Respiratory Rate 22 H Blood Pressure 174/88 H Pulse Oximetry 98 97 95 Oxygen Delivery Nasal Cannula Room Air Oxygen Flow Rate 2 07/21/24 02:00 07/21/24 03:15 07/21/24 02:30 Temperature 36.7 C Pulse Rate 88 90 88 Respiratory Rate 23 H 23 H Blood Pressure 186/77 H Pulse Oximetry 99 99 Oxygen Delivery Nasal Cannula Oxygen Flow Rate 2 07/21/24 02:30 07/21/24 04:45 07/21/24 05:38 Temperature Pulse Rate 88 107 H 96 Respiratory Rate 27 H Blood Pressure Pulse Oximetry Oxygen Delivery CPAP Oxygen Flow Rate 07/21/24 07:36 07/21/24 09:27 07/21/24 08:00 Temperature 36.8 C Pulse Rate 86 86 Respiratory Rate 28 H 28 H Blood Pressure 183/70 H Pulse Oximetry 96 98 98 Oxygen Delivery Nasal Cannula Nasal Cannula Oxygen Flow Rate 2 1 07/21/24 08:00 07/21/24 10:00 07/21/24 11:18 Temperature 37.0 C Pulse Rate 86 83 82 Respiratory Rate 28 H Blood Pressure 159/55 H Pulse Oximetry 97 Oxygen Delivery Oxygen Flow Rate Exam Const: General: comfortable, no acute distress, alert and awake Orientation/consciousness: patient oriented x3 HENMT: Head: normal to inspection Eyes: General: appearance normal, both eyes and all related structures Pupils: Equal, round and reactive pupils present Neck: Neck: normal visual inspection and supple Carotids: normal carotid upstroke Resp: Effort & Inspection: normal respiratory effort Auscultation: rales bilateral Cardio: Rate: regular rate Rhythm: regular rhythm Heart sounds: S1 normal heart sound present, S2 normal heart sound present and no murmurs GI: Auscultation: normal bowel sounds Skin: General skin exam: normal color Lesions: lesion noted Other: redness and erythema bilateral lower legs Neuro: General: patient oriented x3 Cranial nerves: Yes Equal, round and reactive pupils present Extrem: General: abnormal to inspection, edema and pedal edema Psych: Appearance: grossly normal Mental Status: mental status grossly normal Results Labs and Meds 07/21/24 11:41 07/21/24 11:41 Lab results: Cardiac Enzymes 07/20/24 07/20/24 07/21/24 Range/Units 16:27 23:55 03:42 AST 19 (14-36) U/L Troponin I 0.044 H* 0.035 H* D (0.000-0.034) ng/mL 07/21/24 Range/Units 07:50 AST (14-36) U/L Troponin I 0.038 H* (0.000-0.034) ng/mL Coagulation 07/20/24 Range/Units 16:27 PT 16.8 H (11.1-14.7) Seconds APTT 33.3 (22.3-36.8) Seconds CBC 07/20/24 07/21/24 Range/Units 16:27 11:41 WBC 7.2 8.2 (4.5-10.0) K/mm3 RBC 3.00 L 3.09 L (4.2-5.4) M/mm3 Hgb 8.5 L 8.6 L (12.0-15.0) g/dL Hct 27.8 L 28.1 L (37.0-47.0) % Plt Count 261 283 (150-375) k/mm3 Lymph # (Auto) 0.96 0.88 L (0.9-3.2) K/mm3 [place] # (Auto) 0.4 0.5 (0.1-0.6) K/mm3 Eos # (Auto) 0.2 0.3 (0-0.3) K/mm3 Baso # (Auto) 0.0 0.0 (0.0-0.1) K/mm3 Comprehensive Metabolic Panel 07/20/24 Range/Units 16:27 Sodium 140 (137-145) mmol/L Potassium 4.4 (3.4-5.0) mmol/L Chloride 107 (98-107) mmol/L Carbon Dioxide 25 (22-30) mmol/L BUN 26 H D (7-17) mg/dL Creatinine 1.70 H (0.7-1.0) mg/dL Glucose 226 H (65-110) mg/dL Calcium 9.3 (8.4-10.2) mg/dL AST 19 (14-36) U/L ALT 18 (6-35) U/L Alkaline Phosphatase 137 H (38-126) U/L Total Protein 7.0 (6.3-8.2) g/dL Albumin 3.8 (3.5-5.1) g/dL Intake and Output 07/20/24 07/21/24 07/21/24 23:59 07:59 15:59 Intake Total 200 240 Output Total 1100 Balance -900 240 Intake: Oral 200 240 Output: Urine 1100 Patient Weight 07/21/24 23:59 Weight 120.4 kg
[2024-07-21 11:56] LABS: Glucose Point of Care 335 mg/dl (65-105)
[2024-07-21 12:04] LABS: Anion Gap 6 mmol/L (4-12); Blood Urea Nitrogen 26 mg/dL (7-17); Calcium 9.2 mg/dL (8.4-10.2); Carbon Dioxide 28 mmol/L (22-30); Chloride 103 mmol/L (98-107); Estimated CRCL calculation 37 ml/min; Estimated Glomerular Filt Rate 34; Glucose 319 mg/dL (65-110); Potassium 3.8 mmol/L (3.4-5.0); Sodium 137 mmol/L (137-145)
[2024-07-21 12:07] LABS: D Dimer 0.52 ug/mL (<0.48)
--- NOTE | 2024-07-21 12:18 | PM.IMHP ---
H&P: HPI History of Present Illness Date/Time: 07/21/24 12:18 Chief Complaint: Short of breath Narrative: 78 years old lady with history of CAD status post stent, paroxysmal AFib, diastolic heart failure, CKD STAGE III, chronic anemia, present ED with a chief complaint of shortness breath. Patient has been having progressive shortness breath in past 3 days, patient has orthopnea. Shortness breath is worse with exertion. Patient denies chest pain, fever. Patient has a cough with scant phlegm. Patient denies abdomen pain nausea vomiting diarrhea dysuria. Patient came to ED for evaluation, upon arrival to ED, patient was afebrile, patient was found have uncontrolled hypertension, blood pressure 213 over 75, labs showed elevated BNP 4200, elevated BUN creatinine 26 or 1.7 close to baseline, elevated troponin, EKG shows sinus rhythm nonspecific ST wave changes. X-ray showed pulmonary congestion. Patient received Lasix IV push 1 we admit patient for further patient management Review of Systems Review of Systems: ROS negative except above PMFSH Past Medical History Medical History Anemia Anxiety Ataxia Breast cancer Chronic anticoagulation Degeneration of lumbar or lumbosacral intervertebral disc Depression Diabetes mellitus type 2 in obese (~1989) A1c 10 on July 21, 2022 Diabetic peripheral neuropathy Diastolic heart failure Echocardiogram 05/2022: Normal left ventricular systolic function EF 65-70%, mildly increased left ventricular wall thickness, diastolic dysfunction grade 2, moderately elevated E/E 20, increased global longitudinal strain and-18%, mild mitral valve regurgitation, mild tricuspid regurgitation, moderate pulmonary hypertension with RVSP of [address] Ann Dysphagia Esophageal abnormality History of stress test Hypertension Hypothyroidism Knee osteoarthritis Macular degeneration Minimal cognitive impairment Mixed hyperlipidemia Normal esophagogastroduodenoscopy (EGD) Obstructive sleep apnea on CPAP Paroxysmal atrial fibrillation Restless leg syndrome Skin cancer Stage 3b chronic kidney disease (CKD) Dr. Eduardo Venous stasis dermatitis Surgical History Surgical History H/O cardiac catheterization H/O endoscopy H/O heart artery stent History of cholecystectomy History of reconstruction of right breast History of right hip replacement (~2017) History of right mastectomy Status post cataract extraction of both eyes with insertion of intraocular lens Family History Family History Father Hypertension COPD (chronic obstructive pulmonary disease) Heart disease Diabetes mellitus Mother Lung cancer Depression Sibling Acute basophilic leukemia Sepsis Diabetes mellitus Acute myocardial infarction Daughter Depression Drug overdose Sibling No problems noted. Social History Social History Social History: Surrogate medical decision maker: jayne Du. Code status: Full code. Smoking status: Never smoker Second hand tobacco smoke exposure: Yes Alcohol intake: never Substance use: never Substance use type: does not use Do You Feel Safe in your Home?: Yes Lack of Transportation: No Lack of Food: Never True Current Housing: I Have Housing Concerned About Future Housing: No Difficulty Paying Gas/Electric Bills: No Difficulty Paying for Meds: No Currently Unemployed: No Education: High School Diploma/GED Difficulty w/ Childcare or Family Care: No Living arrangements: alone Additional living arrangements comments: . Lives alone. Has 2 children, daughter . 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 Spiritual care concerns: No Meds Home Medications and Allergies Home Medications Medication Instructions Recorded Confirmed Type divalproex 500 mg tablet,delayed 500 mg PO HS 03/06/22 07/21/24 History release (Depakote) vit C 250 mg-E 90 mg-zinc 40 1 tablet PO Q12H 03/27/23 07/21/24 History mg-copper 1 [id number] chew tablet (PreserVision AREDS-2) evolocumab 140 mg/mL subcutaneous 140 mg subcut Q14D 07/13/23 07/21/24 History pen injector (Narda Bernard) blood-glucose meter (Blood Glucose #1 ea 02/22/24 07/21/24 Rx Monitoring kit) bumetanide 2 mg tablet 2 mg PO Q12H 04/04/24 07/21/24 History calcium 600 mg (as 1 tablet PO DAILY 04/04/24 07/21/24 History carbonate)-vitamin D3 5 mcg (200 unit) tablet famotidine 20 mg tablet 20 mg PO HS 04/04/24 07/21/24 History gabapentin 100 mg capsule 100 mg PO Q8H 04/04/24 07/21/24 History (Neurontin) levothyroxine 75 mcg tablet 75 mcg PO 0630 04/04/24 07/21/24 History (Euthyrox) memantine 10 mg tablet 10 mg PO Q12H 04/04/24 07/21/24 History nystatin 100,000 unit/gram topical 1 applic topical BID PRN Rash 04/04/24 07/21/24 History ointment vitamin B complex 1 tablet PO DAILY 04/04/24 07/21/24 History apixaban 5 mg tablet (Eliquis) 5 mg PO Q12H #90 tabs 04/26/24 07/21/24 Rx omeprazole 40 mg capsule,delayed 40 mg PO DAILY laryngopharyngeal 05/03/24 07/21/24 Rx release reflux #30 caps insulin lispro 100 unit/mL 14 unit (0.14 mL) subcut .tidac 90 05/19/24 07/21/24 Rx subcutaneous pen (Humalog KwikPen days #54 mL (U-100) Insulin) insulin glargine U-300 conc 300 45 unit (0.15 mL) subcut DAILY 90 05/20/24 07/21/24 Rx unit/mL (3 mL) subcutaneous pen days #15 mL (Toujeo Max U-300 SoloStar) isosorbide dinitrate 10 mg tablet 10 mg PO Q12H #90 tabs 05/31/24 07/21/24 Rx amiodarone 200 mg tablet 200 mg PO HS #30 tabs 06/24/24 07/21/24 Rx trospium 20 mg tablet 20 mg PO Q12H #30 tabs 06/24/24 07/21/24 Rx mupirocin 2 % topical ointment 1 applic topical BID #22 grams 07/12/24 07/21/24 Rx allopurinol 100 mg tablet 100 mg PO DAILY 07/21/24 07/21/24 History bupropion HCl 150 mg 24 hr tablet, 150 mg PO DAILY 07/21/24 07/21/24 History extended release buspirone 15 mg tablet 15 mg PO DAILY 07/21/24 07/21/24 History carvedilol 6.25 mg tablet 6.25 mg PO DAILY 07/21/24 07/21/24 History pramipexole 0.25 mg tablet 0.25 mg PO BID 07/21/24 07/21/24 History venlafaxine 75 mg capsule,extended 125 mg PO DAILY 07/21/24 07/21/24 History release 24 hr (Effexor XR) Allergies Allergy/AdvReac Type Severity Reaction Status Date / Time Bkhyerz-HCY-CsI Reductase Allergy Intermediate Other Verified 07/07/24 14:30 Inhibitor pseudoephedrine Allergy Unknown Hives Verified 07/07/24 14:30 NSAIDS (Non-Steroidal AdvReac Intermediate Other Verified 07/07/24 14:30 Anti-Inflamma oxycodone AdvReac Intermediate Itching Verified 07/07/24 14:30 atenolol AdvReac Mild Muscle Pain Verified 07/07/24 14:30 exenatide [From Bydureon] AdvReac Mild Diarrhea Verified 07/07/24 14:30 hydrocodone AdvReac Mild Itching Verified 07/07/24 14:30 [From Panlor (hydrocodone-acetamin)] prochlorperazine AdvReac Mild Itching Verified 07/07/24 14:30 [From Compazine] rice AdvReac Mild Heartburn Verified 07/07/24 14:30 Vital Signs Vital Signs - 24 hr 07/20/24 16:06 07/20/24 19:14 07/20/24 22:49 Temperature 97.4 F L 98.1 F Pulse Rate 85 82 Respiratory Rate 20 20 Blood Pressure 213/75 H 177/77 H Pulse Oximetry 97 97 95 Oxygen Delivery Room Air Oxygen Flow Rate 07/20/24 22:52 07/20/24 23:42 07/20/24 23:37 Temperature Pulse Rate 86 86 Respiratory Rate 19 15 Blood Pressure 182/80 H 186/76 H Pulse Oximetry 95 98 88 L Oxygen Delivery Room Air Oxygen Flow Rate 07/20/24 23:43 07/20/24 23:57 07/21/24 01:25 Temperature 98.6 F Pulse Rate 93 Respiratory Rate 22 H Blood Pressure 174/88 H Pulse Oximetry 98 97 95 Oxygen Delivery Nasal Cannula Room Air Oxygen Flow Rate 2 07/21/24 02:00 07/21/24 03:15 07/21/24 02:30 Temperature 98.1 F Pulse Rate 88 90 88 Respiratory Rate 23 H 23 H Blood Pressure 186/77 H Pulse Oximetry 99 99 Oxygen Delivery Nasal Cannula Oxygen Flow Rate 2 07/21/24 02:30 07/21/24 04:45 07/21/24 05:38 Temperature Pulse Rate 88 107 H 96 Respiratory Rate 27 H Blood Pressure Pulse Oximetry Oxygen Delivery CPAP Oxygen Flow Rate 07/21/24 07:36 07/21/24 09:27 07/21/24 08:00 Temperature 98.2 F Pulse Rate 86 86 Respiratory Rate 28 H 28 H Blood Pressure 183/70 H Pulse Oximetry 96 98 98 Oxygen Delivery Nasal Cannula Nasal Cannula Oxygen Flow Rate 2 1 07/21/24 08:00 07/21/24 10:00 07/21/24 11:18 Temperature 98.6 F Pulse Rate 86 83 82 Respiratory Rate 28 H Blood Pressure 159/55 H Pulse Oximetry 97 Oxygen Delivery Oxygen Flow Rate Exam Narrative: GENERAL: Pleasant, in no acute distress. Well-nourished. - EYES: EOMI. Anicteric. - HENT: Moist mucous membranes. - LUNGS: Crackles bilateral base - CARDIOVASCULAR: Regular rate and rhythm. No murmur. No JVD. - ABDOMEN: Soft, non-tender and non-distended. No palpable masses. - EXTREMITIES: No edema. Peripheral pulses 2+. Non-tender. - NEUROLOGIC: No focal neurological deficits. CN II-XII grossly intact. - PSYCHIATRIC: Awake, Alert and oriented x 3. Appropriate mood and affect. - SKIN: No rashes or lesions. Warm. - LYMPH: No cervical lymphadenopathy. H&P: Results Labs Labs: Short CBC 07/20/24 07/21/24 Range/Units 16:27 11:41 WBC 7.2 8.2 (4.5-10.0) K/mm3 Hgb 8.5 L 8.6 L (12.0-15.0) g/dL Hct 27.8 L 28.1 L (37.0-47.0) % Plt Count 261 283 (150-375) k/mm3 BMP 07/20/24 07/21/24 16:27 11:41 Sodium 140 137 Potassium 4.4 3.8 Chloride 107 103 Carbon Dioxide 25 28 BUN 26 H D 26 H Creatinine 1.70 H 1.50 H Glucose 226 H 319 H Calcium 9.3 9.2 Cardiac Enzymes 07/20/24 07/21/24 07/21/24 Range/Units 23:55 03:42 07:50 Troponin I 0.044 H* 0.035 H* D 0.038 H* (0.000-0.034) ng/mL Liver Function 07/20/24 Range/Units 16:27 Total Bilirubin 0.4 (0.2-1.3) mg/dL AST 19 (14-36) U/L ALT 18 (6-35) U/L Alkaline Phosphatase 137 H (38-126) U/L Albumin 3.8 (3.5-5.1) g/dL Assessment and Plan Assessment and plan (1) Acute CHF: Code(s): I50.9 - Heart failure, unspecified Status: Acute (2) Elevated troponin: Code(s): R79.89 - Other specified abnormal findings of blood chemistry Status: Acute (3) Paroxysmal atrial fibrillation: Code(s): I48.0 - Paroxysmal atrial fibrillation Status: Chronic (4) Hypothyroidism: Qualifiers: Hypothyroidism type: acquired Qualified Code(s): E03.9 - Hypothyroidism, unspecified Code(s): E03.9 - Hypothyroidism, unspecified Status: Acute (5) Type 2 diabetes mellitus: Code(s): E11.9 - Type 2 diabetes mellitus without complications Status: Acute (6) Stage 3b chronic kidney disease: Code(s): N18.32 - Chronic kidney disease, stage 3b Status: Chronic Plan Acute CHF Patient has a exertion dyspnea, previous EKG showed diastolic dysfunction Possible acute on chronic diastolic heart failure A start Bumex 2 mg IV b.i.d. Follow-up input output Consult de alcholizer for evaluation treatment Elevated troponin Patient has history of CAD status post stent, Positive troponin, EKG shows sinus rhythm no specific ST T-wave changes Possible demand ischemia due to uncontrolled hypertension Patient is on Eliquis 5 mg b.i.d. p.o. Isordil 10 mg q.12 hours p.o. Rest evaluation and management per de alcholizer Telemetry monitoring, EKG p.r.n. Pulse ox a AFib Patient denies palpitation EKG shows sinus rhythm Continue home medication carvedilol 6.25 mg daily p.o., Eliquis 5 mg b.i.d. p.o. Hypertension urgency Patient received Lasix in the ED Start amlodipine 10 mg daily p.o., hydrochlorothiazide 25 mg daily p.o., A start hydralazine 10 mg q.6 hours p.r.n. with parameters Optimize medication for control of blood pressure and target Chronic anemia No obvious bleeding Follow-up BMP GERD Continue Protonix 40 mg daily p.o. CKD stage 3 Avoid nephrotoxic medication Follow-up BMP Hypothyroidism Continue Synthroid 75 mcg daily p.o. Type 2 diabetes Continue glargine 25 unit daily, aspart 40 units t.i.d., start insulin sliding scale a.c. and q.h.s. Hypoglycemia protocol as needed Hypothyroidism continue Synthroid 75 mcg daily p.o. Patient may stay more than 2 midnights in the hospital Hospitalist [facility] [place] Advance Care Plan I have confirmed that the patient's Advanced Care Plan is present, code status is documented, or surrogate decision maker is listed in patient medical record.: Yes Medication Reconciliation The patient is not eligible for med reconciliation; the patient is in a emergent medical situation where delaying treatment would jeopardize the patients health.: Yes
[2024-07-21] MEDS: GABAPENTIN 100 MG CAPSULE PO ×2 (14:35→21:23)
[2024-07-21 16:02] LABS: Glucose Point of Care 181 mg/dl (65-105)
--- NOTE | 2024-07-21 17:20 | PHAR ---
PT'S HOME MEDS HAVE BEEN VERIFIED: TROSPIUM CHLORIDE 20 MG TAB REPATHA (EVOLOCUMAB) SURECLICK 140 MG/ML 1 ML PREFILLED AUTO-INJECTOR [employer] FAUSTIN SOLNIKOLASAR U-300 PREFILLED PEN INJECTOR
[2024-07-21] MEDS: INSULIN ASPART (*BKC) 100 UNITS/ML 12 UNITS SUB-Q (17:30)
[2024-07-21] MEDS: BUMETANIDE INJ 2.5 MG/10 ML VIAL 2 MG IV PUSH (17:35)
[2024-07-21] MEDS: EVOLOCUMAB 140 MG/ML SUB-Q (17:55)
[2024-07-21 20:01] LABS: Glucose Point of Care 161 mg/dl (65-105)
[2024-07-21] MEDS: PRAMIPEXOLE 0.25 MG TABLET PO (21:23)
[2024-07-21] MEDS: DIVALPROEX SODIUM DR 250 MG TABEC 500 MG PO (21:23)
[2024-07-21] MEDS: PANTOPRAZOLE 40 MG TABLET PO (21:24)
[2024-07-21] MEDS: AMIODARONE HCL 200 MG TABLET PO (21:24)
[2024-07-21] MEDS: FAMOTIDINE 20 MG TABLET PO (21:24)
[2024-07-21] MEDS: MUPIROCIN 2% OINT 22 GM TUBE 1 APPLIC TOPICAL (21:25)
[2024-07-21] MEDS: TROSPIUM CHLORIDE 20 MG 1 EACH PO (21:27)
[2024-07-22] VITALS (12 sets, daily range): BP systolic 137–163; BP diastolic 50–70; PULSE 64–92; RESP 16–32; TEMP 36.1–36.8; O2SAT 94–97
[2024-07-22] MEDS: GABAPENTIN 100 MG CAPSULE PO ×3 (06:37→22:27)
[2024-07-22] MEDS: LEVOTHYROXINE SODIUM 75 MCG TABLET PO (06:37)
[2024-07-22 07:51] LABS: Glucose Point of Care 136 mg/dl (65-105)
[2024-07-22] MEDS: busPIRone HCL 5 MG TABLET 15 MG PO (08:09)
[2024-07-22] MEDS: CALCIUM/VITAMIN D 500 MG/5 MCG (200 I.U.) TABLET PO (08:09)
[2024-07-22] MEDS: carvediloL 6.25 MG TABLET PO (08:09)
[2024-07-22] MEDS: BUMETANIDE INJ 2.5 MG/10 ML VIAL 2 MG IV PUSH ×2 (08:10→16:55)
[2024-07-22] MEDS: amLODIPine BESYLATE 10 MG TABLET PO (08:10)
[2024-07-22] MEDS: hydroCHLOROthiazide 25 MG TABLET PO (08:10)
[2024-07-22] MEDS: PANTOPRAZOLE 40 MG TABLET PO ×2 (08:10→22:27)
[2024-07-22] MEDS: OPTI-GEN TAB 1 TABLET PO ×2 (08:10→22:29)
[2024-07-22] MEDS: ISOSORBIDE DINITRATE 10 MG TABLET PO ×2 (08:10→22:27)
[2024-07-22] MEDS: allopurinoL 100 MG TABLET PO (08:10)
[2024-07-22] MEDS: MEMANTINE 10 MG TABLET PO ×2 (08:10→22:27)
[2024-07-22] MEDS: buPROPion HCL XL (24 HR) 150 MG TABCR PO (08:10)
[2024-07-22] MEDS: PRAMIPEXOLE 0.25 MG TABLET PO ×2 (08:10→22:29)
[2024-07-22] MEDS: APIXABAN 5 MG TABLET PO ×2 (08:10→22:26)
[2024-07-22] MEDS: VITAMIN B COMPLEX CAPSULE 1 CAP PO (08:10)
[2024-07-22] MEDS: TROSPIUM CHLORIDE 20 MG 1 EACH PO ×2 (08:11→23:08)
[2024-07-22] MEDS: [UNRECOGNIZED DRUG - OTHER] SUB-Q (08:14)
[2024-07-22] MEDS: INSULIN GLARGINE SUB-Q (08:14)
[2024-07-22] MEDS: MUPIROCIN 2% OINT 22 GM TUBE 1 APPLIC TOPICAL ×2 (08:14→22:29)
[2024-07-22] MEDS: INSULIN ASPART (*BKC) 100 UNITS/ML 12 UNITS SUB-Q ×2 (08:15→12:35)
[2024-07-22 08:27] LABS: Basophils Percent Auto 0.5 % (0.2-1.2); Eosinophils Absolute Auto 0.3 K/mm3 (0-0.3); Eosinophils Percent Auto 4.1 % (0-4.4); Immature Granulocyte Absolute 0.04 K/mm3 (0.00-0.031); Immature Granulocyte Percent A 0.5 % (0-0.5); Lymphocytes Absolute Auto 1.34 K/mm3 (0.9-3.2); Lymphocytes Percent Auto 16.3 % (18.3-44.2); Mean Corpuscular Hemoglobin 28.9 pg (26-34); Mean Corpuscular Volume 93.2 fl (80-100); Monocytes Absolute Auto 0.6 K/mm3 (0.1-0.6); Monocytes Percent Auto 6.7 % (2.6-8.5); Neutrophils Absolute Auto 5.9 K/mm3 (1.3-6.7); Neutrophils Percent Auto 71.9 % (45.5-73.1); Platelet Count Result 267 k/mm3 (150-375); Red Blood Count 3.11 M/mm3 (4.2-5.4); Red Cell Distribution Width 16.7 % (11.5-14.5); White Blood Count 8.2 K/mm3 (4.5-10.0)
[2024-07-22 08:41] LABS: Anion Gap 9 mmol/L (4-12); Blood Urea Nitrogen 29 mg/dL (7-17); Calcium 9.3 mg/dL (8.4-10.2); Carbon Dioxide 29 mmol/L (22-30); Chloride 99 mmol/L (98-107); Estimated CRCL calculation 37 ml/min; Estimated Glomerular Filt Rate 34; Glucose 129 mg/dL (65-110); Potassium 3.6 mmol/L (3.4-5.0); Sodium 137 mmol/L (137-145)
--- NOTE | 2024-07-22 11:40 | P.PNCA_ITS ---
Progress Note: A&P Assessment and Plan (1) Acute on chronic heart failure with preserved ejection fraction (HFpEF, >= 50%): Code(s): I50.33 - Acute on chronic diastolic (congestive) heart failure Status: Acute Assessment and Plan: * Continue with aggressive diuresis. Continue IV Bumex. * Daily weights * Accurate I&O * Daily BMP while diuresing * CHF counseling * 1800cc fluid restriction * Will start Jardiance. (2) Paroxysmal atrial fibrillation: Code(s): I48.0 - Paroxysmal atrial fibrillation Status: Chronic Assessment and Plan: In sinus rhythm. Continue Amiodarone, Coreg, and Apixaban (3) Coronary artery disease: Code(s): I25.10 - Atherosclerotic heart disease of [place] coronary artery without angina pectoris Status: Acute Assessment and Plan: Stable. On Repatha. (4) Stage 3b chronic kidney disease: Code(s): N18.32 - Chronic kidney disease, stage 3b Status: Chronic Assessment and Plan: Monitor renal function closely with IV diuresis. (5) Hypertension: Qualifiers: Hypertension type: unspecified Qualified Code(s): I10 - Essential (primary) hypertension Code(s): I10 - Essential (primary) hypertension Status: Chronic Assessment and Plan: Continue Coreg, Isordil, Amlodipine, HCTZ (6) Mixed hyperlipidemia: Code(s): E78.2 - Mixed hyperlipidemia Status: Acute Assessment and Plan: She takes Repatha. (7) Anemia: Qualifiers: Anemia type: unspecified type Qualified Code(s): D64.9 - Anemia, unspecified Code(s): D64.9 - Anemia, unspecified Status: Acute Assessment and Plan: Workup per Hospitalist. Subjective Date/time seen: 07/22/24 11:40 Interval history: Reason for visit: CHF HPI: Aleksandra Berman is a 78 year old woman with coronary artery disease status post multivessel PCI with Dr. Rouse in Jun 2023, paroxysmal atrial fibrillation, heart failure with preserved EF, and hypertension. She is hospitalized now because of shortness of breath and lower extremity edema. She began having increasing shortness of breath and bilateral lower extremity edema about a week and a half ago. These symptoms gradually worsened and she developed sores on her lower legs. She is denying any chest pain, palpitations, syncope. She does have orthopnea. According to her son (who manages her meds) they have been out of Bumex for a couple of weeks and unable to get a refill. She used to follow with Dr. Membreno but has not established care with a new doctor since Dr. Membreno's departure from our practice. Patient did have an appointment with the nurse practitioner scheduled but she did not show up for that appointment. She is comfortable at the time of my evaluation breathing with supplemental oxygen in place. Date of service 07/22: Legs are still edematous, but improving. Review of Systems Review of Systems: All systems reviewed & are unremarkable except as noted in HPI and below (HPI) Exam Const: General: comfortable and no acute distress HENMT: Mouth: Yes moist mucous membranes Eyes: General: appearance normal, both eyes and all related structures Sclera: sclerae normal Resp: Effort & Inspection: normal respiratory effort Cardio: Rate: regular rate Rhythm: regular rhythm Other: + Bilateral lower extremity edema Skin: General skin exam: normal color Neuro: Speech: normal speech Psych: Mental Status: mental status grossly normal Affect: normal affect Objective Data Vital Signs Vital Signs: Vital Signs - 24 hr 07/21/24 15:26 07/21/24 18:22 07/21/24 20:01 Temperature 36.9 C 37.0 C 37.1 C Pulse Rate 83 100 88 Respiratory Rate 32 H 20 20 Blood Pressure 154/64 H 143/69 H 179/66 H Pulse Oximetry 98 99 97 Oxygen Delivery 07/21/24 12:00 07/21/24 12:00 07/21/24 14:00 Temperature Pulse Rate 88 86 Respiratory Rate 20 Blood Pressure Pulse Oximetry 97 Oxygen Delivery Room Air 07/21/24 16:00 07/21/24 16:00 07/21/24 18:00 Temperature Pulse Rate 85 88 Respiratory Rate 20 Blood Pressure Pulse Oximetry 97 Oxygen Delivery Room Air 07/21/24 21:24 07/21/24 20:00 07/21/24 20:00 Temperature Pulse Rate 84 91 91 Respiratory Rate 20 Blood Pressure Pulse Oximetry 97 Oxygen Delivery Room Air 07/21/24 22:00 07/21/24 22:35 07/21/24 23:37 Temperature 36.6 C Pulse Rate 90 83 82 Respiratory Rate 24 H 20 Blood Pressure 159/69 H Pulse Oximetry 94 97 Oxygen Delivery CPAP 07/21/24 23:42 07/21/24 23:42 07/22/24 02:30 Temperature Pulse Rate 80 80 80 Respiratory Rate 20 Blood Pressure Pulse Oximetry 97 Oxygen Delivery CPAP CPAP 07/22/24 02:00 07/22/24 04:00 07/22/24 04:00 Temperature Pulse Rate 84 87 87 Respiratory Rate 20 Blood Pressure Pulse Oximetry 97 Oxygen Delivery Room Air 07/22/24 04:52 07/22/24 06:00 07/22/24 07:35 Temperature 36.8 C 36.7 C Pulse Rate 86 84 85 Respiratory Rate 20 32 H Blood Pressure 150/59 H 137/60 Pulse Oximetry 95 94 Oxygen Delivery 07/22/24 08:09 07/22/24 08:00 07/22/24 08:00 Temperature Pulse Rate 64 64 92 Respiratory Rate 22 H Blood Pressure Pulse Oximetry 94 Oxygen Delivery Room Air Intake/Output Intake/Output: Intake & Output 07/19/24 07/20/24 07/21/24 07/22/24 23:59 23:59 23:59 23:59 Intake Total 920 790 Output Total 3650 500 Balance -2730 290 Meds/Results Medications: Active Medications Generic Name Dose Route Start Last Admin Trade Name Freq PRN Reason Stop Dose Admin Allopurinol 100 mg 07/22/24 09:00 07/22/24 08:10 Allopurinol 100 Mg Tablet PO 100 mg DAILY NICOLE Administration Amiodarone HCl 200 mg 07/21/24 21:00 07/21/24 21:24 Amiodarone Hcl 200 Mg Tablet PO 200 mg HS NICOLE Administration Amlodipine Besylate 10 mg 07/21/24 10:55 07/22/24 08:10 Amlodipine Besylate 10 Mg Tablet PO 10 mg DAILY NICOLE Administration Apixaban 5 mg 07/21/24 10:55 07/22/24 08:10 Apixaban 5 Mg Tablet PO 5 mg Q12HR NICOLE Administration Bumetanide 2 mg 07/21/24 17:00 07/22/24 08:10 Bumetanide Inj 2.5 Mg/10 Ml Vial IV PUSH 2 mg BID NICOLE Administration Bupropion HCl 150 mg 07/22/24 09:00 07/22/24 08:10 Bupropion Hcl Xl (24 Hr) 150 Mg Tabcr PO 150 mg DAILY NICOLE Administration Buspirone HCl 15 mg 07/22/24 09:00 07/22/24 08:09 Buspirone Hcl 5 Mg Tablet PO 15 mg DAILY NICOLE Administration Calcium Carbonate 500 mg 07/22/24 09:00 07/22/24 08:09 Calcium/Vitamin D 500 Mg/5 Mcg (200 I.U.) Tablet PO 500 mg DAILY NICOLE Administration Carvedilol 6.25 mg 07/22/24 09:00 07/22/24 08:09 Carvedilol 6.25 Mg Tablet PO 6.25 mg DAILY NICOLE Administration Dextrose 12.5 gm 07/21/24 11:05 Dextrose 50% 25 Gm/50 Ml Syringe IV PUSH PRN PRN Hypoglycemia Protocol Divalproex Sodium 500 mg 07/21/24 21:00 07/21/24 21:[address] 250 Mg Tabec PO 500 mg HS NICOLE Administration Famotidine 20 mg 07/21/24 21:00 07/21/24 21:24 Famotidine 20 Mg Tablet PO 20 mg HS NICOLE Administration Gabapentin 100 mg 07/21/24 14:00 07/22/24 06:37 Gabapentin 100 Mg Capsule PO 100 mg Q8HR NICOLE Administration Glucagon 1 mg 07/21/24 11:05 Glucagon For Inj 1 Mg Vial IM PRN PRN Hypoglycemia Protocol Glucose 15 gm 07/21/24 11:05 Glucose Oral Gel 15 Gm Of Glucse In 37.5 Gm Tube PO PRN PRN Hypoglycemia Protocol Hydralazine HCl 10 mg 07/21/24 10:56 Hydralazine Hcl 20 Mg/Ml Vial IV PUSH Q6H PRN Blood Pressure - High Hydrochlorothiazide 25 mg 07/21/24 11:00 07/22/24 08:10 Hydrochlorothiazide 25 Mg Tablet PO 25 mg QAM NICOLE Administration Dextrose 1,000 mls @ 100 mls/hr 07/21/24 11:05 Dextrose 5% 1,000 Ml IVPB PRN PRN Hypoglycemia Protocol Insulin Aspart 4 - 8 units 07/21/24 12:00 07/22/24 07:51 Insulin Aspart (*Bkc) 100 Units/Ml SUB-Q Not Given TIDWM NICOLE Protocol Insulin Aspart 2 - 4 units 07/21/24 21:00 07/21/24 21:26 Insulin Aspart (*Bkc) 100 Units/Ml SUB-Q Not Given HS NICOLE Protocol Insulin Aspart 12 units 07/21/24 17:20 07/22/24 08:15 Insulin Aspart (*Bkc) 100 Units/Ml SUB-Q 12 units ACINSULIN NICOLE Administration Isosorbide Dinitrate 10 mg 07/21/24 10:55 07/22/24 08:10 Isosorbide Dinitrate 10 Mg Tablet PO 10 mg Q12HR NICOLE Administration Levothyroxine Sodium 75 mcg 07/22/24 06:30 07/22/24 06:37 Levothyroxine Sodium 75 Mcg Tablet PO 75 mcg 0630 NICOLE Administration Memantine 10 mg 07/21/24 10:55 07/22/24 08:10 Memantine 10 Mg Tablet PO 10 mg Q12HR NICOLE Administration Multivitamins/Minerals 1 tablet 07/21/24 11:15 07/22/24 08:10 Opti-Gen Tab PO 1 tablet Q12HR NICOLE Administration Mupirocin 1 applic 07/21/24 21:00 07/22/24 08:14 Mupirocin 2% Oint 22 Gm Tube TOPICAL 1 applic Q12HR NICOLE Administration Non-Formulary ( 0 each 07/21/24 17:25 07/21/24 17:55 Evolocumab 140 Mg/Ml SUB-Q 08/20/24 17:24 1 each Subcutaneous Pen Q14D@0900 NICOLE Administration Injector) Non-Formulary ( 1 each 07/21/24 21:00 07/22/24 08:11 Trospium Chloride 20 PO 08/20/24 20:59 1 each Mg Oral Tablet) Q12HR NICOLE Administration Non-Formulary ( 0 each 07/22/24 09:00 07/22/24 08:14 Insulin Glargine, SUB-Q 08/21/24 08:59 45 each Human Recombinant DAILY NICOLE Administration Analog 300 Unit/Ml ( 3 Ml) Subcut...) Nystatin 1 applic 07/21/24 10:52 Nystatin Ointment 15 Gm Tube TOPICAL BID PRN Rash Pantoprazole Sodium 40 mg 07/21/24 21:00 07/22/24 08:10 Pantoprazole 40 Mg Tablet PO 40 mg Q12HR NICOLE Administration Perflutren Lipid Microsphere 0 ml 07/21/24 10:58 Perflutren Lipid Microspheres 1.5 Ml Vial Diluted To 10 Ml Total Volume IV PUSH 07/24/24 10:58 ONCE PRN adequate visualization Protocol Pramipexole Dihydrochloride 0.25 mg 07/21/24 21:00 07/22/24 08:10 Pramipexole 0.25 Mg Tablet PO 0.25 mg Q12H NICOLE Administration Vitamin B Complex 1 cap 07/22/24 09:00 07/22/24 08:10 Vitamin B Complex Capsule PO 1 cap DAILY NICOLE Administration Radiology Results: ITS Impressions Chest X-Ray 07/20/24 16:47 IMPRESSION: Moderate right and small left-sided pleural effusions, an interval change from previous examination. No focal infiltrate Labs Labs: Laboratory Results - last 24 hr 07/21/24 07/21/24 07/21/24 11: 11:41 16:00 WBC 8.2 RBC 3.09 L Hgb 8.6 L Hct 28.1 L MCV 90.9 MCH 27.8 MCHC 30.6 L RDW 16.4 H Plt Count 283 MPV 9.2 Immature Gran % (Auto) 0.5 Neut % (Auto) 79.6 H Lymph % (Auto) 10.8 L Kinney % (Auto) 5.5 Eos % (Auto) 3.1 Baso % (Auto) 0.5 Lymph # (Auto) 0.88 L Kinney # (Auto) 0.5 Eos # (Auto) 0.3 Baso # (Auto) 0.0 Abs Immat Gran (auto) 0.04 H Absolute Neuts (auto) 6.5 Absolute Nucleated RBC 0.000 Nucleated RBC % 0.0 D-Dimer 0.52 H Sodium 137 Potassium 3.8 Chloride 103 Carbon Dioxide 28 Anion Gap 6 BUN 26 H Creatinine 1.50 H Estim Creat Clear Calc 37 Estimated GFR 34 L Glucose 319 H POC Capillary Glucose 335 H 181 H Calcium 9.2 07/21/24 07/22/24 07/22/24 19:32 07:36 08:05 WBC 8.2 RBC 3.11 L Hgb 9.0 L Hct 29.0 L MCV 93.2 MCH 28.9 MCHC 31.0 L RDW 16.7 H Plt Count 267 MPV 10.0 Immature Gran % (Auto) 0.5 Neut % (Auto) 71.9 Lymph % (Auto) 16.3 L Kinney % (Auto) 6.7 Eos % (Auto) 4.1 Baso % (Auto) 0.5 Lymph # (Auto) 1.34 Kinney # (Auto) 0.6 Eos # (Auto) 0.3 Baso # (Auto) 0.0 Abs Immat Gran (auto) 0.04 H Absolute Neuts (auto) 5.9 Absolute Nucleated RBC 0.000 Nucleated RBC % 0.0 D-Dimer Sodium 137 Potassium 3.6 Chloride 99 Carbon Dioxide 29 Anion Gap 9 BUN 29 H Creatinine 1.50 H Estim Creat Clear Calc 37 Estimated GFR 34 L Glucose 129 H POC Capillary Glucose 161 H 136 H Calcium 9.3
[2024-07-22 11:52] LABS: Glucose Point of Care 154 mg/dl (65-105)
--- NOTE | 2024-07-22 12:58 | PC.NURSE ---
This patient, Aleksandra Berman, was transferred to [[id number] ] on 07/22/24 at 1258. Personal belongings sent with patient. Report given to [ELISEO Bone @ 2010 ]. Appropriate documentation sent with patient.
--- NOTE | 2024-07-22 13:05 | PC.NURSE ---
This patient, Aleksandra Berman, was received from IMU [id number] on 07/22/24 at 1305 . Patient/family oriented to unit policies and routines
--- NOTE | 2024-07-22 14:48 | P.PNIM_ITS ---
Progress Note: A&P Assessment and Plan (1) Acute CHF: Qualifiers: Heart failure type: unspecified Qualified Code(s): I50.9 - Heart failure, unspecified Code(s): I50.9 - Heart failure, unspecified Status: Acute (2) Elevated troponin: Code(s): R79.89 - Other specified abnormal findings of blood chemistry Status: Acute (3) Paroxysmal atrial fibrillation: Code(s): I48.0 - Paroxysmal atrial fibrillation Status: Chronic (4) Hypothyroidism: Qualifiers: Hypothyroidism type: acquired Qualified Code(s): E03.9 - Hypothyroidism, unspecified Code(s): E03.9 - Hypothyroidism, unspecified Status: Acute (5) Type 2 diabetes mellitus: Code(s): E11.9 - Type 2 diabetes mellitus without complications Status: Acute (6) Stage 3b chronic kidney disease: Code(s): N18.32 - Chronic kidney disease, stage 3b Status: Chronic Plan # Acute CHF Patient has a exertion dyspnea, previous EKG showed diastolic dysfunction Possible acute on chronic diastolic heart failure Started on Bumex 2 mg IV b.i.d. Follow-up input output Consult water fitness instructor for evaluation treatment # Elevated troponin Patient has history of CAD status post stent, Positive troponin, EKG shows sinus rhythm no specific ST T-wave changes Possible demand ischemia due to uncontrolled hypertension Patient is on Eliquis 5 mg b.i.d. p.o. Isordil 10 mg q.12 hours p.o. Rest evaluation and management per water fitness instructor Telemetry monitoring, EKG p.r.n. # paroxysmal AFib Patient denies palpitation EKG shows sinus rhythm Continue home medication carvedilol 6.25 mg daily p.o., Eliquis 5 mg b.i.d. p.o. # Hypertension urgency Patient received Lasix in the ED Start amlodipine 10 mg daily p.o., hydrochlorothiazide 25 mg daily p.o., Hydralazine 10 mg q.6 hours p.r.n. with parameters Optimize medication for control of blood pressure and target # Chronic anemia No obvious bleeding Follow-up BMP # GERD Continue Protonix 40 mg daily p.o. # CKD stage 3 Avoid nephrotoxic medication Follow-up BMP # Hypothyroidism Continue Synthroid 75 mcg daily p.o. # Type 2 diabetes Continue glargine 25 unit daily, aspart 40 units t.i.d., start insulin sliding scale a.c. and q.h.s. Hypoglycemia protocol as needed # Hypothyroidism continue Synthroid 75 mcg daily p.o. # DVT prophylaxis on apixaban Code status full code Subjective Date/time seen: 07/22/24 14:48 Interval history: No overnight events. Feels better. Has not gotten out of bed yet. Leg swelling has improved. Review of Systems Review of Systems: All systems reviewed & are unremarkable except as noted in HPI and below Exam Narrative: GENERAL: Pleasant, in no acute distress. Well-nourished. - EYES: EOMI. Anicteric. - HENT: Moist mucous membranes. - LUNGS: Crackles bilateral base - CARDIOVASCULAR: Regular rate and rhyth m. No murmur. No JVD. - ABDOMEN: Soft, non-tender and non-dist ended. No palpable masses. - EXTREMITIES: Lower extremity edema 1+ Peripheral pulses 2+. Non-tender. - NEUROLOGIC: No focal neurological defi cits. CN II-XII grossly intact. - PSYCHIATRIC: Awake, Alert and oriented x 3. Appropriate mood and affect. - SKIN: No rashes or lesions. Warm. - LYMPH: No cervical lymphadenopathy. Objective Data Vital Signs Vital Signs: Vital Signs - 24 hr 07/21/24 15:26 07/21/24 18:22 07/21/24 20:01 Temperature 98.4 F 98.6 F 98.8 F Pulse Rate 83 100 88 Respiratory Rate 32 H 20 20 Blood Pressure 154/64 H 143/69 H 179/66 H Pulse Oximetry 98 99 97 Oxygen Delivery 07/21/24 16:00 07/21/24 16:00 07/21/24 18:00 Temperature Pulse Rate 85 88 Respiratory Rate 20 Blood Pressure Pulse Oximetry 97 Oxygen Delivery Room Air 07/21/24 21:24 07/21/24 20:00 07/21/24 20:00 Temperature Pulse Rate 84 91 91 Respiratory Rate 20 Blood Pressure Pulse Oximetry 97 Oxygen Delivery Room Air 07/21/24 22:00 07/21/24 22:35 07/21/24 23:37 Temperature 97.8 F Pulse Rate 90 83 82 Respiratory Rate 24 H 20 Blood Pressure 159/69 H Pulse Oximetry 94 97 Oxygen Delivery CPAP 07/21/24 23:42 07/21/24 23:42 07/22/24 02:30 Temperature Pulse Rate 80 80 80 Respiratory Rate 20 Blood Pressure Pulse Oximetry 97 Oxygen Delivery CPAP CPAP 07/22/24 02:00 07/22/24 04:00 07/22/24 04:00 Temperature Pulse Rate 84 87 87 Respiratory Rate 20 Blood Pressure Pulse Oximetry 97 Oxygen Delivery Room Air 07/22/24 04:52 07/22/24 06:00 07/22/24 07:35 Temperature 98.3 F 98.0 F Pulse Rate 86 84 85 Respiratory Rate 20 32 H Blood Pressure 150/59 H 137/60 Pulse Oximetry 95 94 Oxygen Delivery 07/22/24 08:09 07/22/24 08:00 07/22/24 08:00 Temperature Pulse Rate 64 64 92 Respiratory Rate 22 H Blood Pressure Pulse Oximetry 94 Oxygen Delivery Room Air 07/22/24 13:00 Temperature 96.9 F L Pulse Rate 82 Respiratory Rate 20 Blood Pressure 142/60 H Pulse Oximetry 97 Oxygen Delivery Intake/Output Intake/Output: Intake & Output 07/19/24 07/20/24 07/21/24 07/22/24 23:59 23:59 23:59 23:59 Intake Total 920 1030 Output Total 3650 500 Balance -2730 530 Meds/Results Medications: Active Medications Generic Name Dose Route Start Last Admin Trade Name Freq PRN Reason Stop Dose Admin Allopurinol 100 mg 07/22/24 09:00 07/22/24 08:10 Allopurinol 100 Mg Tablet PO 100 mg DAILY NIOCLE Administration Amiodarone HCl 200 mg 07/21/24 21:00 07/21/24 21:24 Amiodarone Hcl 200 Mg Tablet PO 200 mg HS NICOLE Administration Amlodipine Besylate 10 mg 07/21/24 10:55 07/22/24 08:10 Amlodipine Besylate 10 Mg Tablet PO 10 mg DAILY NICOLE Administration Apixaban 5 mg 07/21/24 10:55 07/22/24 08:10 Apixaban 5 Mg Tablet PO 5 mg Q12HR NICOLE Administration Bumetanide 2 mg 07/21/24 17:00 07/22/24 08:10 Bumetanide Inj 2.5 Mg/10 Ml Vial IV PUSH 2 mg BID NICOLE Administration Bupropion HCl 150 mg 07/22/24 09:00 07/22/24 08:10 Bupropion Hcl Xl (24 Hr) 150 Mg Tabcr PO 150 mg DAILY NICOLE Administration Buspirone HCl 15 mg 07/22/24 09:00 07/22/24 08:09 Buspirone Hcl 5 Mg Tablet PO 15 mg DAILY NICOLE Administration Calcium Carbonate 500 mg 07/22/24 09:00 07/22/24 08:09 Calcium/Vitamin D 500 Mg/5 Mcg (200 I.U.) Tablet PO 500 mg DAILY NICOLE Administration Carvedilol 6.25 mg 07/22/24 09:00 07/22/24 08:09 Carvedilol 6.25 Mg Tablet PO 6.25 mg DAILY NICOLE Administration Dextrose 12.5 gm 07/21/24 11:05 Dextrose 50% 25 Gm/50 Ml Syringe IV PUSH PRN PRN Hypoglycemia Protocol Divalproex Sodium 500 mg 07/21/24 21:00 07/21/24 21:[address] 250 Mg Tabec PO 500 mg HS NICOLE Administration Empagliflozin 10 mg 07/23/24 09:00 Empagliflozin 10 Mg Tablet PO DAILY NICOLE Famotidine 20 mg 07/21/24 21:00 07/21/24 21:24 Famotidine 20 Mg Tablet PO 20 mg HS NICOLE Administration Gabapentin 100 mg 07/21/24 14:00 07/22/24 06:37 Gabapentin 100 Mg Capsule PO 100 mg Q8HR NICOLE Administration Glucagon 1 mg 07/21/24 11:05 Glucagon For Inj 1 Mg Vial IM PRN PRN Hypoglycemia Protocol Glucose 15 gm 07/21/24 11:05 Glucose Oral Gel 15 Gm Of Glucse In 37.5 Gm Tube PO PRN PRN Hypoglycemia Protocol Hydralazine HCl 10 mg 07/21/24 10:56 Hydralazine Hcl 20 Mg/Ml Vial IV PUSH Q6H PRN Blood Pressure - High Hydrochlorothiazide 25 mg 07/21/24 11:00 07/22/24 08:10 Hydrochlorothiazide 25 Mg Tablet PO 25 mg QAM NICOLE Administration Dextrose 1,000 mls @ 100 mls/hr 07/21/24 11:05 Dextrose 5% 1,000 Ml IVPB PRN PRN Hypoglycemia Protocol Insulin Aspart 4 - 8 units 07/21/24 12:00 07/22/24 12:15 Insulin Aspart (*Bkc) 100 Units/Ml SUB-Q Not Given TIDWM NICOLE Protocol Insulin Aspart 2 - 4 units 07/21/24 21:00 07/21/24 21:26 Insulin Aspart (*Bkc) 100 Units/Ml SUB-Q Not Given HS [facility] Protocol Insulin Aspart 12 units 07/21/24 17:20 07/22/24 12:35 Insulin Aspart (*Bkc) 100 Units/Ml SUB-Q 12 units ACINSULIN NICOLE Administration Isosorbide Dinitrate 10 mg 07/21/24 10:55 07/22/24 08:10 Isosorbide Dinitrate 10 Mg Tablet PO 10 mg Q12HR NICOLE Administration Levothyroxine Sodium 75 mcg 07/22/24 06:30 07/22/24 06:37 Levothyroxine Sodium 75 Mcg Tablet PO 75 mcg 0630 NICOLE Administration Memantine 10 mg 07/21/24 10:55 07/22/24 08:10 Memantine 10 Mg Tablet PO 10 mg Q12HR NICOLE Administration Multivitamins/Minerals 1 tablet 07/21/24 11:15 07/22/24 08:10 Opti-Gen Tab PO 1 tablet Q12HR NICOLE Administration Mupirocin 1 applic 07/21/24 21:00 07/22/24 08:14 Mupirocin 2% Oint 22 Gm Tube TOPICAL 1 applic Q12HR NICOLE Administration Non-Formulary ( 0 each 07/21/24 17:25 07/21/24 17:55 Evolocumab 140 Mg/Ml SUB-Q 08/20/24 17:24 1 each Subcutaneous Pen Q14D@0900 NICOLE Administration Injector) Non-Formulary ( 1 each 07/21/24 21:00 07/22/24 08:11 Trospium Chloride 20 PO 08/20/24 20:59 1 each Mg Oral Tablet) Q12HR NICOLE Administration Non-Formulary ( 0 each 07/22/24 09:00 07/22/24 08:14 Insulin Glargine, SUB-Q 08/21/24 08:59 45 each Human Recombinant DAILY NICOLE Administration Analog 300 Unit/Ml ( 3 Ml) Subcut...) Nystatin 1 applic 07/21/24 10:52 Nystatin Ointment 15 Gm Tube TOPICAL BID PRN Rash Pantoprazole Sodium 40 mg 07/21/24 21:00 07/22/24 08:10 Pantoprazole 40 Mg Tablet PO 40 mg Q12HR NICOLE Administration Perflutren Lipid Microsphere 0 ml 07/21/24 10:58 Perflutren Lipid Microspheres 1.5 Ml Vial Diluted To 10 Ml Total Volume IV PUSH 07/24/24 10:58 ONCE PRN adequate visualization Protocol Pramipexole Dihydrochloride 0.25 mg 07/21/24 21:00 07/22/24 08:10 Pramipexole 0.25 Mg Tablet PO 0.25 mg Q12H NICOLE Administration Vitamin B Complex 1 cap 07/22/24 09:00 07/22/24 08:10 Vitamin B Complex Capsule PO 1 cap DAILY NICOLE Administration Radiology Results: ITS Impressions Chest X-Ray 07/20/24 16:47 IMPRESSION: Moderate right and small left-sided pleural effusions, an interval change from previous examination. No focal infiltrate Labs Labs: Laboratory Results - last 24 hr 07/21/24 07/21/24 07/22/24 16:00 19:32 07:36 WBC RBC Hgb Hct MCV MCH MCHC RDW Plt Count MPV Immature Gran % (Auto) Neut % (Auto) Lymph % (Auto) [place]bert % (Auto) Eos % (Auto) Baso % (Auto) Lymph # (Auto) [place] # (Auto) Eos # (Auto) Baso # (Auto) Abs Immat Gran (auto) Absolute Neuts (auto) Absolute Nucleated RBC Nucleated RBC % Sodium Potassium Chloride Carbon Dioxide Anion Gap BUN Creatinine Estim Creat Clear Calc Estimated GFR Glucose POC Capillary Glucose 181 H 161 H 136 H Calcium 07/22/24 07/22/24 08:05 11:48 WBC 8.2 RBC 3.11 L Hgb 9.0 L Hct 29.0 L MCV 93.2 MCH 28.9 MCHC 31.0 L RDW 16.7 H Plt Count 267 MPV 10.0 Immature Gran % (Auto) 0.5 Neut % (Auto) 71.9 Lymph % (Auto) 16.3 L [place] % (Auto) 6.7 Eos % (Auto) 4.1 Baso % (Auto) 0.5 Lymph # (Auto) 1.34 [place]bert # (Auto) 0.6 Eos # (Auto) 0.3 Baso # (Auto) 0.0 Abs Immat Gran (auto) 0.04 H Absolute Neuts (auto) 5.9 Absolute Nucleated RBC 0.000 Nucleated RBC % 0.0 Sodium 137 Potassium 3.6 Chloride 99 Carbon Dioxide 29 Anion Gap 9 BUN 29 H Creatinine 1.50 H Estim Creat Clear Calc 37 Estimated GFR 34 L Glucose 129 H POC Capillary Glucose 154 H Calcium 9.3
[2024-07-22 16:43] LABS: Glucose Point of Care 93 mg/dl (65-105)
[2024-07-22 19:53] LABS: Glucose Point of Care 123 mg/dl (65-105)
[2024-07-22] MEDS: DIVALPROEX SODIUM DR 250 MG TABEC 500 MG PO (22:26)
[2024-07-22] MEDS: AMIODARONE HCL 200 MG TABLET PO (22:27)
[2024-07-22] MEDS: FAMOTIDINE 20 MG TABLET PO (22:27)
[2024-07-22] MEDS: ACETAMINOPHEN 325 MG TABLET 650 MG PO (23:08)
[2024-07-23] VITALS (7 sets, daily range): BP systolic 114–167; BP diastolic 55–73; PULSE 72–96; RESP 18–20; TEMP 36.4–36.8; O2SAT 92–100
[2024-07-23] MEDS: LEVOTHYROXINE SODIUM 75 MCG TABLET PO (05:29)
[2024-07-23] MEDS: GABAPENTIN 100 MG CAPSULE PO ×3 (05:29→21:48)
[2024-07-23 06:46] LABS: Basophils Absolute Auto 0.1 K/mm3 (0.0-0.1); Basophils Percent Auto 0.9 % (0.2-1.2); Eosinophils Absolute Auto 0.4 K/mm3 (0-0.3); Eosinophils Percent Auto 4.9 % (0-4.4); Hematocrit 30.3 % (37.0-47.0); Hemoglobin 9.5 g/dL (12.0-15.0); Immature Granulocyte Absolute 0.02 K/mm3 (0.00-0.031); Immature Granulocyte Percent A 0.2 % (0-0.5); Lymphocytes Absolute Auto 1.35 K/mm3 (0.9-3.2); Lymphocytes Percent Auto 16.5 % (18.3-44.2); Mean Corpuscular HGB Conc 31.4 g/dl (32-36); Mean Corpuscular Hemoglobin 28.3 pg (26-34); Mean Corpuscular Volume 90.2 fl (80-100); Mean Platelet Volume 9.1 fl (7.4-10.4); Monocytes Absolute Auto 0.7 K/mm3 (0.1-0.6); Monocytes Percent Auto 8.3 % (2.6-8.5); Neutrophils Absolute Auto 5.7 K/mm3 (1.3-6.7); Neutrophils Percent Auto 69.2 % (45.5-73.1); Platelet Count Result 304 k/mm3 (150-375); Red Blood Count 3.36 M/mm3 (4.2-5.4); Red Cell Distribution Width 16.4 % (11.5-14.5); White Blood Count 8.2 K/mm3 (4.5-10.0)
[2024-07-23 07:04] LABS: Anion Gap 7 mmol/L (4-12); Blood Urea Nitrogen 30 mg/dL (7-17); Calcium 9.4 mg/dL (8.4-10.2); Carbon Dioxide 34 mmol/L (22-30); Chloride 98 mmol/L (98-107); Estimated CRCL calculation 31 ml/min; Estimated Glomerular Filt Rate 27; Glucose 129 mg/dL (65-110); Potassium 3.4 mmol/L (3.4-5.0); Sodium 139 mmol/L (137-145)
[2024-07-23 08:02] LABS: Glucose Point of Care 130 mg/dl (65-105)
[2024-07-23] MEDS: CALCIUM/VITAMIN D 500 MG/5 MCG (200 I.U.) TABLET PO (08:24)
[2024-07-23] MEDS: PANTOPRAZOLE 40 MG TABLET PO ×2 (08:24→21:48)
[2024-07-23] MEDS: carvediloL 6.25 MG TABLET PO (08:24)
[2024-07-23] MEDS: allopurinoL 100 MG TABLET PO (08:24)
[2024-07-23] MEDS: EMPAGLIFLOZIN 10 MG TABLET PO (08:24)
[2024-07-23] MEDS: OPTI-GEN TAB 1 TABLET PO ×2 (08:24→21:48)
[2024-07-23] MEDS: busPIRone HCL 5 MG TABLET 15 MG PO (08:24)
[2024-07-23] MEDS: amLODIPine BESYLATE 10 MG TABLET PO (08:24)
[2024-07-23] MEDS: buPROPion HCL XL (24 HR) 150 MG TABCR PO (08:24)
[2024-07-23] MEDS: PRAMIPEXOLE 0.25 MG TABLET PO ×2 (08:24→21:50)
[2024-07-23] MEDS: hydroCHLOROthiazide 25 MG TABLET PO (08:24)
[2024-07-23] MEDS: APIXABAN 5 MG TABLET PO ×2 (08:24→21:48)
[2024-07-23] MEDS: ISOSORBIDE DINITRATE 10 MG TABLET PO ×2 (08:25→21:50)
[2024-07-23] MEDS: BUMETANIDE INJ 2.5 MG/10 ML VIAL 2 MG IV PUSH ×2 (08:25→17:06)
[2024-07-23] MEDS: VITAMIN B COMPLEX CAPSULE 1 CAP PO (08:25)
[2024-07-23] MEDS: MEMANTINE 10 MG TABLET PO ×2 (08:25→21:48)
[2024-07-23] MEDS: [UNRECOGNIZED DRUG - OTHER] SUB-Q (08:27)
[2024-07-23] MEDS: TROSPIUM CHLORIDE 20 MG 1 EACH PO ×2 (08:27→21:52)
[2024-07-23] MEDS: MUPIROCIN 2% OINT 22 GM TUBE 1 APPLIC TOPICAL ×2 (08:27→21:51)
[2024-07-23] MEDS: INSULIN GLARGINE SUB-Q (08:27)
[2024-07-23] MEDS: INSULIN ASPART (*BKC) 100 UNITS/ML 12 UNITS SUB-Q ×3 (08:28→17:05)
[2024-07-23 11:43] LABS: Glucose Point of Care 162 mg/dl (65-105)
--- NOTE | 2024-07-23 13:26 | PM.IMPN ---
Progress Note: A&P Assessment and Plan (1) Acute CHF: Qualifiers: Heart failure type: unspecified Qualified Code(s): I50.9 - Heart failure, unspecified Code(s): I50.9 - Heart failure, unspecified Status: Acute (2) Elevated troponin: Code(s): R79.89 - Other specified abnormal findings of blood chemistry Status: Acute (3) Paroxysmal atrial fibrillation: Code(s): I48.0 - Paroxysmal atrial fibrillation Status: Chronic (4) Hypothyroidism: Qualifiers: Hypothyroidism type: acquired Qualified Code(s): E03.9 - Hypothyroidism, unspecified Code(s): E03.9 - Hypothyroidism, unspecified Status: Acute (5) Type 2 diabetes mellitus: Code(s): E11.9 - Type 2 diabetes mellitus without complications Status: Acute (6) Stage 3b chronic kidney disease: Code(s): N18.32 - Chronic kidney disease, stage 3b Status: Chronic Plan # Acute CHF Patient has a exertion dyspnea, previous EKG showed diastolic dysfunction Possible acute on chronic diastolic heart failure Started on Bumex 2 mg IV b.i.d. per Cardiology Follow-up input output Consult vehicle maintenance technician for evaluation treatment # Elevated troponin Patient has history of CAD status post stent, Positive troponin, EKG shows sinus rhythm no specific ST T-wave changes Possible demand ischemia due to uncontrolled hypertension Patient is on Eliquis 5 mg b.i.d. p.o. Isordil 10 mg q.12 hours p.o. Rest evaluation and management per vehicle maintenance technician Telemetry monitoring, EKG p.r.n. # paroxysmal AFib Patient denies palpitation EKG shows sinus rhythm Continue home medication carvedilol 6.25 mg daily p.o., Eliquis 5 mg b.i.d. p.o. # Hypertension urgency Patient received Lasix in the ED Start amlodipine 10 mg daily p.o., hydrochlorothiazide 25 mg daily p.o., Hydralazine 10 mg q.6 hours p.r.n. with parameters Optimize medication for control of blood pressure and target # Chronic anemia No obvious bleeding Follow-up BMP # GERD Continue Protonix 40 mg daily p.o. # CKD stage 3 Avoid nephrotoxic medication Follow-up BMP # Hypothyroidism Continue Synthroid 75 mcg daily p.o. # Type 2 diabetes Continue glargine 25 unit daily, aspart 40 units t.i.d., start insulin sliding scale a.c. and q.h.s. Hypoglycemia protocol as needed # Hypothyroidism continue Synthroid 75 mcg daily p.o. # DVT prophylaxis on apixaban # Code status full code Subjective Date/time seen: 07/23/24 13:26 Interval history: No overnight events. Feels better. Leg swelling has improved. Review of Systems Review of Systems: All systems reviewed & are unremarkable except as noted in HPI and below Exam Narrative: GENERAL: Pleasant, in no acute distress. Well-nourished. - EYES: EOMI. Anicteric. - HENT: Moist mucous membranes. - LUNGS: Crackles bilateral base - CARDIOVASCULAR: Regular rate and rhythm. No murmur. No JVD. - ABDOMEN: Soft, non-tender and non-distended. No palpable masses. - EXTREMITIES: Lower extremity edema 1+ Peripheral pulses 2+. Non-tender. - NEUROLOGIC: No focal neurological deficits. CN II-XII grossly intact. - PSYCHIATRIC: Awake, Alert and oriented x 3. Appropriate mood and affect. - SKIN: No rashes or lesions. Warm. - LYMPH: No cervical lymphadenopathy. Objective Data Vital Signs Vital Signs: Vital Signs - 24 hr 07/22/24 14:00 07/22/24 20:33 07/22/24 22:27 Temperature 97.4 F L 97.6 F Pulse Rate 86 82 84 Respiratory Rate 16 20 Blood Pressure 163/70 H 149/50 H Pulse Oximetry 97 95 Oxygen Delivery Fraction of Inspired Oxygen 07/22/24 20:00 07/23/24 06:00 07/23/24 08:24 Temperature 97.6 F Pulse Rate 86 72 Respiratory Rate 20 Blood Pressure 131/60 Pulse Oximetry 92 Oxygen Delivery Room Air Fraction of Inspired Oxygen 07/23/24 08:00 07/23/24 10:26 Temperature Pulse Rate Respiratory Rate Blood Pressure Pulse Oximetry 93 Oxygen Delivery Room Air Room Air Fraction of Inspired Oxygen 21 Intake/Output Intake/Output: Intake & Output 07/20/24 07/21/24 07/22/24 07/23/24 23:59 23:59 23:59 23:59 Intake Total 920 1270 240 Output Total 3650 1400 350 Balance -2730 -130 -110 Meds/Results Medications: Active Medications Generic Name Dose Route Start Last Admin Trade Name Freq PRN Reason Stop Dose Admin Acetaminophen 650 mg 07/22/24 22:48 07/22/24 23:08 Acetaminophen 325 Mg Tablet PO 650 mg Q4H PRN Administration pain 6 or less Allopurinol 100 mg 07/22/24 09:00 07/23/24 08:24 Allopurinol 100 Mg Tablet PO 100 mg DAILY NICOLE Administration Amiodarone HCl 200 mg 07/21/24 21:00 07/22/24 22:27 Amiodarone Hcl 200 Mg Tablet PO 200 mg HS NICOLE Administration Amlodipine Besylate 10 mg 07/21/24 10:55 07/23/24 08:24 Amlodipine Besylate 10 Mg Tablet PO 10 mg DAILY NICOLE Administration Apixaban 5 mg 07/21/24 10:55 07/23/24 08:24 Apixaban 5 Mg Tablet PO 5 mg Q12HR NICOLE Administration Bumetanide 2 mg 07/21/24 17:00 07/23/24 08:25 Bumetanide Inj 2.5 Mg/10 Ml Vial IV PUSH 2 mg BID NICOLE Administration Bupropion HCl 150 mg 07/22/24 09:00 07/23/24 08:24 Bupropion Hcl Xl (24 Hr) 150 Mg Tabcr PO 150 mg DAILY NICOLE Administration Buspirone HCl 15 mg 07/22/24 09:00 07/23/24 08:24 Buspirone Hcl 5 Mg Tablet PO 15 mg DAILY NICOLE Administration Calcium Carbonate 500 mg 07/22/24 09:00 07/23/24 08:24 Calcium/Vitamin D 500 Mg/5 Mcg (200 I.U.) Tablet PO 500 mg DAILY NICOLE Administration Carvedilol 6.25 mg 07/22/24 09:00 07/23/24 08:24 Carvedilol 6.25 Mg Tablet PO 6.25 mg DAILY NICOLE Administration Dextrose 12.5 gm 07/21/24 11:05 Dextrose 50% 25 Gm/50 Ml Syringe IV PUSH PRN PRN Hypoglycemia Protocol Divalproex Sodium 500 mg 07/21/24 21:00 07/22/24 22:[address] 250 Mg Tabec PO 500 mg HS NICOLE Administration Empagliflozin 10 mg 07/23/24 09:00 07/23/24 08:24 Empagliflozin 10 Mg Tablet PO 10 mg DAILY NICOLE Administration Famotidine 20 mg 07/21/24 21:00 07/22/24 22:27 Famotidine 20 Mg Tablet PO 20 mg HS NICOLE Administration Gabapentin 100 mg 07/21/24 14:00 07/23/24 12:23 Gabapentin 100 Mg Capsule PO 100 mg Q8HR NICOLE Administration Glucagon 1 mg 07/21/24 11:05 Glucagon For Inj 1 Mg Vial IM PRN PRN Hypoglycemia Protocol Glucose 15 gm 07/21/24 11:05 Glucose Oral Gel 15 Gm Of Glucse In 37.5 Gm Tube PO PRN PRN Hypoglycemia Protocol Hydralazine HCl 10 mg 07/21/24 10:56 Hydralazine Hcl 20 Mg/Ml Vial IV PUSH Q6H PRN Blood Pressure - High Hydrochlorothiazide 25 mg 07/21/24 11:00 07/23/24 08:24 Hydrochlorothiazide 25 Mg Tablet PO 25 mg QAM NICOLE Administration Dextrose 1,000 mls @ 100 mls/hr 07/21/24 11:05 Dextrose 5% 1,000 Ml IVPB PRN PRN Hypoglycemia Protocol Insulin Aspart 4 - 8 units 07/21/24 12:00 07/23/24 12:19 Insulin Aspart (*Bkc) 100 Units/Ml SUB-Q Not Given TIDWM [facility] Protocol Insulin Aspart 2 - 4 units 07/21/24 21:00 07/22/24 22:28 Insulin Aspart (*Bkc) 100 Units/Ml SUB-Q Not Given HS [facility] Protocol Insulin Aspart 12 units 07/21/24 17:20 07/23/24 12:20 Insulin Aspart (*Bkc) 100 Units/Ml SUB-Q 12 units ACINSULIN NICOLE Administration Isosorbide Dinitrate 10 mg 07/21/24 10:55 07/23/24 08:25 Isosorbide Dinitrate 10 Mg Tablet PO 10 mg Q12HR NICOLE Administration Levothyroxine Sodium 75 mcg 07/22/24 06:30 07/23/24 05:29 Levothyroxine Sodium 75 Mcg Tablet PO 75 mcg 0630 NICOLE Administration Melatonin 5 mg 07/23/24 00:59 Melatonin 5 Mg Tablet PO HS PRN Sleep Memantine 10 mg 07/21/24 10:55 07/23/24 08:25 Memantine 10 Mg Tablet PO 10 mg Q12HR NICOLE Administration Multivitamins/Minerals 1 tablet 07/21/24 11:15 07/23/24 08:24 Opti-Gen Tab PO 1 tablet Q12HR NICOLE Administration Mupirocin 1 applic 07/21/24 21:00 07/23/24 08:27 Mupirocin 2% Oint 22 Gm Tube TOPICAL 1 applic Q12HR NICOLE Administration Non-Formulary ( 0 each 07/21/24 17:25 07/21/24 17:55 Evolocumab 140 Mg/Ml SUB-Q 08/20/24 17:24 1 each Subcutaneous Pen Q14D@0900 NICOLE Administration Injector) Non-Formulary ( 1 each 07/21/24 21:00 07/23/24 08:27 Trospium Chloride 20 PO 08/20/24 20:59 1 each Mg Oral Tablet) Q12HR NICOLE Administration Non-Formulary ( 0 each 07/22/24 09:00 07/23/24 08:27 Insulin Glargine, SUB-Q 08/21/24 08:59 45 each Human Recombinant DAILY NICOLE Administration Analog 300 Unit/Ml ( 3 Ml) Subcut...) Nystatin 1 applic 07/21/24 10:52 Nystatin Ointment 15 Gm Tube TOPICAL BID PRN Rash Pantoprazole Sodium 40 mg 07/21/24 21:00 07/23/24 08:24 Pantoprazole 40 Mg Tablet PO 40 mg Q12HR NICOLE Administration Perflutren Lipid Microsphere 0 ml 07/21/24 10:58 Perflutren Lipid Microspheres 1.5 Ml Vial Diluted To 10 Ml Total Volume IV PUSH 07/24/24 10:58 ONCE PRN adequate visualization Protocol Pramipexole Dihydrochloride 0.25 mg 07/21/24 21:00 07/23/24 08:24 Pramipexole 0.25 Mg Tablet PO 0.25 mg Q12H NICOLE Administration Vitamin B Complex 1 cap 07/22/24 09:00 07/23/24 08:25 Vitamin B Complex Capsule PO 1 cap DAILY NICOLE Administration Radiology Results: ITS Impressions Chest X-Ray 07/20/24 16:47 IMPRESSION: Moderate right and small left-sided pleural effusions, an interval change from previous examination. No focal infiltrate Labs Labs: Laboratory Results - last 24 hr 07/22/24 07/22/24 07/23/24 16:30 19:36 06:35 WBC 8.2 RBC 3.36 L Hgb 9.5 L Hct 30.3 L MCV 90.2 MCH 28.3 MCHC 31.4 L RDW 16.4 H Plt Count 304 MPV 9.1 Immature Gran % (Auto) 0.2 Neut % (Auto) 69.2 Lymph % (Auto) 16.5 L [place] % (Auto) 8.3 Eos % (Auto) 4.9 H Baso % (Auto) 0.9 Lymph # (Auto) 1.35 [place] # (Auto) 0.7 H Eos # (Auto) 0.4 H Baso # (Auto) 0.1 Abs Immat Gran (auto) 0.02 Absolute Neuts (auto) 5.7 Absolute Nucleated RBC 0.000 Nucleated RBC % 0.0 Sodium 139 Potassium 3.4 Chloride 98 Carbon Dioxide 34 H Anion Gap 7 BUN 30 H Creatinine 1.80 H Estim Creat Clear Calc 31 Estimated GFR 27 L Glucose 129 H POC Capillary Glucose 93 123 H Calcium 9.4 07/23/24 07/23/24 07:59 11:40 WBC RBC Hgb Hct MCV MCH MCHC RDW Plt Count MPV Immature Gran % (Auto) Neut % (Auto) Lymph % (Auto) [place] % (Auto) Eos % (Auto) Baso % (Auto) Lymph # (Auto) [place] # (Auto) Eos # (Auto) Baso # (Auto) Abs Immat Gran (auto) Absolute Neuts (auto) Absolute Nucleated RBC Nucleated RBC % Sodium Potassium Chloride Carbon Dioxide Anion Gap BUN Creatinine Estim Creat Clear Calc Estimated GFR Glucose POC Capillary Glucose 130 H 162 H Calcium
--- NOTE | 2024-07-23 15:53 | PM.PNCARD ---
Progress Note: A&P Assessment and Plan (1) Acute on chronic heart failure with preserved ejection fraction (HFpEF, >= 50%): Code(s): I50.33 - Acute on chronic diastolic (congestive) heart failure Status: Acute (2) Coronary artery disease: Code(s): I25.10 - Atherosclerotic heart disease of [place] coronary artery without angina pectoris Status: Acute (3) Hypertension: Qualifiers: Hypertension type: unspecified Qualified Code(s): I10 - Essential (primary) hypertension Code(s): I10 - Essential (primary) hypertension Status: Chronic Plan 78-year-old woman with CAD status post multivessel PCI, HFpEF, paroxysmal atrial fibrillation, hypertension, and hyperlipidemia presented with worsening shortness of breath, orthopnea, and lower extremity swelling consistent with acute on chronic diastolic heart failure Acute on chronic diastolic heart failure -continue Bumex 2 mg IV push b.i.d. -discontinue hydrochlorothiazide given rise in creatinine CAD status post multivessel PCI -stable and can consider risk and benefits of additional aspirin given she is on Eliquis -this discussion can be had outpatient with her primary business risk analyst Paroxysmal atrial fibrillation -continue carvedilol 6.25 mg p.o. b.i.d., amiodarone 200 mg p.o. daily, and Eliquis 5 mg p.o. b.i.d. Hypertension -continue amlodipine 10 mg p.o. daily with goal systolic blood pressure less than 130mmHg -continue Isordil 10 mg b.i.d. and carvedilol 6.25 mg p.o. b.i.d. -should systolic blood pressure be above goal, isosorbide dinitrate can be increased to 20 mg p.o. b.i.d. Hyperlipidemia -continue Repatha as an outpatient Subjective Date/time seen: 07/23/24 15:53 Interval history: Overall she feels that the lower extremity swelling has decline however she is unsure if her breathing has improved as his she has not been able to ambulate with walker. States that she is mostly in bed and unable to assess how she is feeling. Review of Systems Cardiovascular: Cardiovascular: Denies chest pain Exam Const: General: comfortable HENMT: Mouth: Yes moist mucous membranes Eyes: EOM: EOMs intact bilaterally Neck: Neck: no JVD Resp: Effort & Inspection: normal respiratory effort Auscultation: rales Cardio: Rate: regular rate GI: GI Palp: Yes Soft to palpation Neuro: Speech: normal speech Extrem: General: edema Objective Data Vital Signs Vital Signs: Vital Signs - 24 hr 07/22/24 20:33 07/22/24 22:27 07/22/24 20:00 Temperature 36.4 C Pulse Rate 82 84 Respiratory Rate 20 Blood Pressure 149/50 H Pulse Oximetry 95 Oxygen Delivery Room Air Fraction of Inspired Oxygen 07/23/24 06:00 07/23/24 08:24 07/23/24 08:00 Temperature 36.4 C Pulse Rate 86 72 Respiratory Rate 20 Blood Pressure 131/60 Pulse Oximetry 92 Oxygen Delivery Room Air Fraction of Inspired Oxygen 07/23/24 10:26 07/23/24 14:00 Temperature 36.5 C Pulse Rate 77 Respiratory Rate 18 Blood Pressure 114/55 L Pulse Oximetry 93 99 Oxygen Delivery Room Air Fraction of Inspired Oxygen 21 Intake/Output Intake/Output: Intake & Output 07/20/24 07/21/24 07/22/24 07/23/24 23:59 23:59 23:59 23:59 Intake Total 920 1270 240 Output Total 3650 1400 350 Balance -2730 -130 -110 Meds/Results Medications: Active Medications Generic Name Dose Route Start Last Admin Trade Name Rennyq PRN Reason Stop Dose Admin Acetaminophen 650 mg 07/22/24 22:48 07/22/24 23:08 Acetaminophen 325 Mg Tablet PO 650 mg Q4H PRN Administration pain 6 or less Allopurinol 100 mg 07/22/24 09:00 07/23/24 08:24 Allopurinol 100 Mg Tablet PO 100 mg DAILY NICOLE Administration Amiodarone HCl 200 mg 07/21/24 21:00 07/22/24 22:27 Amiodarone Hcl 200 Mg Tablet PO 200 mg HS NICOLE Administration Amlodipine Besylate 10 mg 07/21/24 10:55 07/23/24 08:24 Amlodipine Besylate 10 Mg Tablet PO 10 mg DAILY NICOLE Administration Apixaban 5 mg 07/21/24 10:55 07/23/24 08:24 Apixaban 5 Mg Tablet PO 5 mg Q12HR NICOLE Administration Bumetanide 2 mg 07/21/24 17:00 07/23/24 08:25 Bumetanide Inj 2.5 Mg/10 Ml Vial IV PUSH 2 mg BID NICOLE Administration Bupropion HCl 150 mg 07/22/24 09:00 07/23/24 08:24 Bupropion Hcl Xl (24 Hr) 150 Mg Tabcr PO 150 mg DAILY NICOLE Administration Buspirone HCl 15 mg 07/22/24 09:00 07/23/24 08:24 Buspirone Hcl 5 Mg Tablet PO 15 mg DAILY NICOLE Administration Calcium Carbonate 500 mg 07/22/24 09:00 07/23/24 08:24 Calcium/Vitamin D 500 Mg/5 Mcg (200 I.U.) Tablet PO 500 mg DAILY NICOLE Administration Carvedilol 6.25 mg 07/22/24 09:00 07/23/24 08:24 Carvedilol 6.25 Mg Tablet PO 6.25 mg DAILY NICOLE Administration Dextrose 12.5 gm 07/21/24 11:05 Dextrose 50% 25 Gm/50 Ml Syringe IV PUSH PRN PRN Hypoglycemia Protocol Divalproex Sodium 500 mg 07/21/24 21:00 07/22/24 22:[address] 250 Mg Tabec PO 500 mg HS NICOLE Administration Empagliflozin 10 mg 07/23/24 09:00 07/23/24 08:24 Empagliflozin 10 Mg Tablet PO 10 mg DAILY NICOLE Administration Famotidine 20 mg 07/21/24 21:00 07/22/24 22:27 Famotidine 20 Mg Tablet PO 20 mg HS NICOLE Administration Gabapentin 100 mg 07/21/24 14:00 07/23/24 12:23 Gabapentin 100 Mg Capsule PO 100 mg Q8HR NICOLE Administration Glucagon 1 mg 07/21/24 11:05 Glucagon For Inj 1 Mg Vial IM PRN PRN Hypoglycemia Protocol Glucose 15 gm 07/21/24 11:05 Glucose Oral Gel 15 Gm Of Glucse In 37.5 Gm Tube PO PRN PRN Hypoglycemia Protocol Hydralazine HCl 10 mg 07/21/24 10:56 Hydralazine Hcl 20 Mg/Ml Vial IV PUSH Q6H PRN Blood Pressure - High Hydrochlorothiazide 25 mg 07/21/24 11:00 07/23/24 08:24 Hydrochlorothiazide 25 Mg Tablet PO 25 mg QAM NICOLE Administration Dextrose 1,000 mls @ 100 mls/hr 07/21/24 11:05 Dextrose 5% 1,000 Ml IVPB PRN PRN Hypoglycemia Protocol Insulin Aspart 4 - 8 units 07/21/24 12:00 07/23/24 12:19 Insulin Aspart (*Bkc) 100 Units/Ml SUB-Q Not Given TIDWM [facility] Protocol Insulin Aspart 2 - 4 units 07/21/24 21:00 07/22/24 22:28 Insulin Aspart (*Bkc) 100 Units/Ml SUB-Q Not Given HS [facility] Protocol Insulin Aspart 12 units 07/21/24 17:20 07/23/24 12:20 Insulin Aspart (*Bkc) 100 Units/Ml SUB-Q 12 units ACINSULIN NICOLE Administration Isosorbide Dinitrate 10 mg 07/21/24 10:55 07/23/24 08:25 Isosorbide Dinitrate 10 Mg Tablet PO 10 mg Q12HR NICOLE Administration Levothyroxine Sodium 75 mcg 07/22/24 06:30 07/23/24 05:29 Levothyroxine Sodium 75 Mcg Tablet PO 75 mcg 0630 NICOLE Administration Melatonin 5 mg 07/23/24 00:59 Melatonin 5 Mg Tablet PO HS PRN Sleep Memantine 10 mg 07/21/24 10:55 07/23/24 08:25 Memantine 10 Mg Tablet PO 10 mg Q12HR NICOLE Administration Multivitamins/Minerals 1 tablet 07/21/24 11:15 07/23/24 08:24 Opti-Gen Tab PO 1 tablet Q12HR NICOLE Administration Mupirocin 1 applic 07/21/24 21:00 07/23/24 08:27 Mupirocin 2% Oint 22 Gm Tube TOPICAL 1 applic Q12HR NICOLE Administration Non-Formulary ( 0 each 07/21/24 17:25 07/21/24 17:55 Evolocumab 140 Mg/Ml SUB-Q 08/20/24 17:24 1 each Subcutaneous Pen Q14D@0900 [facility] Administration Injector) Non-Formulary ( 1 each 07/21/24 21:00 07/23/24 08:27 Trospium Chloride 20 PO 08/20/24 20:59 1 each Mg Oral Tablet) Q12HR NICOLE Administration Non-Formulary ( 0 each 07/22/24 09:00 07/23/24 08:27 Insulin Glargine, SUB-Q 08/21/24 08:59 45 each Human Recombinant DAILY NICOLE Administration Analog 300 Unit/Ml ( 3 Ml) Subcut...) Nystatin 1 applic 07/21/24 10:52 Nystatin Ointment 15 Gm Tube TOPICAL BID PRN Rash Pantoprazole Sodium 40 mg 07/21/24 21:00 07/23/24 08:24 Pantoprazole 40 Mg Tablet PO 40 mg Q12HR NICOLE Administration Perflutren Lipid Microsphere 0 ml 07/21/24 10:58 Perflutren Lipid Microspheres 1.5 Ml Vial Diluted To 10 Ml Total Volume IV PUSH 07/24/24 10:58 ONCE PRN adequate visualization Protocol Pramipexole Dihydrochloride 0.25 mg 07/21/24 21:00 07/23/24 08:24 Pramipexole 0.25 Mg Tablet PO 0.25 mg Q12H NICOLE Administration Vitamin B Complex 1 cap 07/22/24 09:00 07/23/24 08:25 Vitamin B Complex Capsule PO 1 cap DAILY NICOLE Administration Radiology Results: ITS Impressions Chest X-Ray 07/20/24 16:47 IMPRESSION: Moderate right and small left-sided pleural effusions, an interval change from previous examination. No focal infiltrate Labs Labs: Laboratory Results - last 24 hr 07/22/24 07/22/24 07/23/24 16:30 19:36 06:35 WBC 8.2 RBC 3.36 L Hgb 9.5 L Hct 30.3 L MCV 90.2 MCH 28.3 MCHC 31.4 L RDW 16.4 H Plt Count 304 MPV 9.1 Immature Gran % (Auto) 0.2 Neut % (Auto) 69.2 Lymph % (Auto) 16.5 L [place] % (Auto) 8.3 Eos % (Auto) 4.9 H Baso % (Auto) 0.9 Lymph # (Auto) 1.35 [place] # (Auto) 0.7 H Eos # (Auto) 0.4 H Baso # (Auto) 0.1 Abs Immat Gran (auto) 0.02 Absolute Neuts (auto) 5.7 Absolute Nucleated RBC 0.000 Nucleated RBC % 0.0 Sodium 139 Potassium 3.4 Chloride 98 Carbon Dioxide 34 H Anion Gap 7 BUN 30 H Creatinine 1.80 H Estim Creat Clear Calc 31 Estimated GFR 27 L Glucose 129 H POC Capillary Glucose 93 123 H Calcium 9.4 07/23/24 07/23/24 07:59 11:40 WBC RBC Hgb Hct MCV MCH MCHC RDW Plt Count MPV Immature Gran % (Auto) Neut % (Auto) Lymph % (Auto) [place] % (Auto) Eos % (Auto) Baso % (Auto) Lymph # (Auto) [place] # (Auto) Eos # (Auto) Baso # (Auto) Abs Immat Gran (auto) Absolute Neuts (auto) Absolute Nucleated RBC Nucleated RBC % Sodium Potassium Chloride Carbon Dioxide Anion Gap BUN Creatinine Estim Creat Clear Calc Estimated GFR Glucose POC Capillary Glucose 130 H 162 H Calcium
[2024-07-23 16:31] LABS: Glucose Point of Care 98 mg/dl (65-105)
[2024-07-23 20:44] LABS: Glucose Point of Care 67 mg/dl (65-105)
[2024-07-23 21:01] LABS: Glucose Point of Care 65 mg/dl (65-105)
[2024-07-23 21:25] LABS: Glucose Point of Care 97 mg/dl (65-105)
[2024-07-23] MEDS: FAMOTIDINE 20 MG TABLET PO (21:48)
[2024-07-23] MEDS: AMIODARONE HCL 200 MG TABLET PO (21:48)
[2024-07-23] MEDS: DIVALPROEX SODIUM DR 250 MG TABEC 500 MG PO (21:51)
[2024-07-23] MEDS: MELATONIN 5 MG TABLET PO (21:51)
[2024-07-24 05:20] VITALS: BP 116/54; PULSE 78; RESP 22; TEMP 36; O2SAT 95
[2024-07-24] MEDS: LEVOTHYROXINE SODIUM 75 MCG TABLET PO (05:29)
[2024-07-24] MEDS: GABAPENTIN 100 MG CAPSULE PO ×3 (05:29→20:58)
[2024-07-24 06:50] LABS: Basophils Absolute Auto 0.1 K/mm3 (0.0-0.1); Basophils Percent Auto 0.7 % (0.2-1.2); Eosinophils Absolute Auto 0.4 K/mm3 (0-0.3); Eosinophils Percent Auto 4.3 % (0-4.4); Hematocrit 29.3 % (37.0-47.0); Hemoglobin 8.8 g/dL (12.0-15.0); Immature Granulocyte Absolute 0.03 K/mm3 (0.00-0.031); Immature Granulocyte Percent A 0.3 % (0-0.5); Lymphocytes Absolute Auto 1.67 K/mm3 (0.9-3.2); Lymphocytes Percent Auto 17.9 % (18.3-44.2); Mean Corpuscular Hemoglobin 27.4 pg (26-34); Mean Corpuscular Volume 91.3 fl (80-100); Mean Platelet Volume 9.4 fl (7.4-10.4); Monocytes Absolute Auto 0.7 K/mm3 (0.1-0.6); Monocytes Percent Auto 7.4 % (2.6-8.5); Neutrophils Absolute Auto 6.5 K/mm3 (1.3-6.7); Neutrophils Percent Auto 69.4 % (45.5-73.1); Platelet Count Result 305 k/mm3 (150-375); Red Blood Count 3.21 M/mm3 (4.2-5.4); Red Cell Distribution Width 16.4 % (11.5-14.5); White Blood Count 9.4 K/mm3 (4.5-10.0)
[2024-07-24 07:08] LABS: Anion Gap 8 mmol/L (4-12); Blood Urea Nitrogen 37 mg/dL (7-17); Calcium 8.9 mg/dL (8.4-10.2); Carbon Dioxide 34 mmol/L (22-30); Chloride 96 mmol/L (98-107); Estimated CRCL calculation 23 ml/min; Estimated Glomerular Filt Rate 20; Glucose 200 mg/dL (65-110); Potassium 3.8 mmol/L (3.4-5.0); Sodium 138 mmol/L (137-145)
[2024-07-24 07:59] LABS: Glucose Point of Care 214 mg/dl (65-105)
[2024-07-24] MEDS: OPTI-GEN TAB 1 TABLET PO ×2 (08:12→20:59)
[2024-07-24] MEDS: busPIRone HCL 5 MG TABLET 15 MG PO (08:12)
[2024-07-24] MEDS: MEMANTINE 10 MG TABLET PO ×2 (08:12→20:59)
[2024-07-24] MEDS: buPROPion HCL XL (24 HR) 150 MG TABCR PO (08:12)
[2024-07-24] MEDS: allopurinoL 100 MG TABLET PO (08:12)
[2024-07-24] MEDS: CALCIUM/VITAMIN D 500 MG/5 MCG (200 I.U.) TABLET PO (08:12)
[2024-07-24] MEDS: APIXABAN 5 MG TABLET PO ×2 (08:12→20:58)
[2024-07-24] MEDS: VITAMIN B COMPLEX CAPSULE 1 CAP PO (08:12)
[2024-07-24] MEDS: ISOSORBIDE DINITRATE 10 MG TABLET PO ×2 (08:12→20:58)
[2024-07-24 08:13] VITALS: PULSE 78
[2024-07-24] MEDS: EMPAGLIFLOZIN 10 MG TABLET PO (08:13)
[2024-07-24] MEDS: amLODIPine BESYLATE 10 MG TABLET PO (08:13)
[2024-07-24] MEDS: carvediloL 6.25 MG TABLET PO (08:13)
[2024-07-24] MEDS: PANTOPRAZOLE 40 MG TABLET PO ×2 (08:13→20:52)
[2024-07-24] MEDS: PRAMIPEXOLE 0.25 MG TABLET PO ×2 (08:13→20:59)
[2024-07-24] MEDS: TROSPIUM CHLORIDE 20 MG 1 EACH PO ×2 (08:14→21:00)
[2024-07-24] MEDS: [UNRECOGNIZED DRUG - OTHER] SUB-Q (08:14)
[2024-07-24] MEDS: MUPIROCIN 2% OINT 22 GM TUBE 1 APPLIC TOPICAL ×2 (08:14→21:01)
[2024-07-24] MEDS: INSULIN GLARGINE SUB-Q (08:14)
[2024-07-24] MEDS: BUMETANIDE INJ 2.5 MG/10 ML VIAL 2 MG IV PUSH (08:16)
[2024-07-24] MEDS: INSULIN ASPART (*BKC) 100 UNITS/ML 12 UNITS SUB-Q ×3 (08:20→17:15)
[2024-07-24] MEDS: MENTHOL 10% / METHYL SALICYLATE 15% 57 GM TUBE 1 APPLIC TOPICAL (08:21)
[2024-07-24] MEDS: INSULIN ASPART (*BKC) 100 UNITS/ML SUB-Q ×2 (08:21→12:18)
--- NOTE | 2024-07-24 09:54 | PM.PNCARD ---
Progress Note: A&P Assessment and Plan (1) Acute on chronic heart failure with preserved ejection fraction (HFpEF, >= 50%): Code(s): I50.33 - Acute on chronic diastolic (congestive) heart failure Status: Acute (2) Coronary artery disease: Code(s): I25.10 - Atherosclerotic heart disease of [place] coronary artery without angina pectoris Status: Acute (3) Atrial fibrillation: Qualifiers: Atrial fibrillation type: unspecified Qualified Code(s): I48.91 - Unspecified atrial fibrillation Code(s): I48.91 - Unspecified atrial fibrillation Status: Acute Plan 78-year-old woman with CAD status post multivessel PCI, HFpEF, paroxysmal atrial fibrillation, hypertension, and hyperlipidemia presented with worsening shortness of breath, orthopnea, and lower extremity swelling consistent with acute on chronic diastolic heart failure Acute on chronic diastolic heart failure -previously received 3 doses of hydrochlorothiazide which has been stopped -her creatinine is continuing to rise and overall she appears close to being euvolemic -recommend holding Bumex at this time and re-evaluating her creatinine tomorrow -should her creatinine stabilize, she can resume Bumex 2 mg p.o. b.i.d. which is her home dose CAD status post multivessel PCI -stable and can consider risk and benefits of additional aspirin given she is on Eliquis -this discussion can be had outpatient with her primary juvenile officer Paroxysmal atrial fibrillation -continue carvedilol 6.25 mg p.o. b.i.d., amiodarone 200 mg p.o. daily, and Eliquis 5 mg p.o. b.i.d. Hypertension -continue amlodipine 10 mg p.o. daily with goal systolic blood pressure less than 130mmHg -continue Isordil 10 mg b.i.d. and carvedilol 6.25 mg p.o. b.i.d. -should systolic blood pressure be above goal, isosorbide dinitrate can be increased to 20 mg p.o. b.i.d. Hyperlipidemia -continue Repatha as an outpatient Subjective Date/time seen: 07/24/24 09:54 Interval history: Denies chest pain. States that shortness of breath improved compared to admission. She typically sleeps in a chair at home and is able to sleep in a bed with head of bed elevated now which is significant improvement over orthopnea. Review of Systems Cardiovascular: Cardiovascular: Reports as per HPI Respiratory: Respiratory: Reports as per HPI Exam Const: General: comfortable HENMT: Mouth: Yes moist mucous membranes Eyes: EOM: EOMs intact bilaterally Neck: Neck: no JVD Resp: Effort & Inspection: normal respiratory effort Auscultation: clear to auscultation bilaterally Cardio: Rate: regular rate Rhythm: regular rhythm GI: GI Palp: Yes Soft to palpation Neuro: Speech: normal speech Objective Data Vital Signs Vital Signs: Vital Signs - 24 hr 07/23/24 10:26 07/23/24 14:00 07/23/24 21:29 Temperature 36.5 C 36.8 C Pulse Rate 77 96 Respiratory Rate 18 20 Blood Pressure 114/55 L 167/73 H Pulse Oximetry 93 99 100 Oxygen Delivery Room Air Fraction of Inspired Oxygen 21 07/23/24 21:48 07/23/24 20:00 07/23/24 22:20 Temperature Pulse Rate 88 80 Respiratory Rate 19 Blood Pressure Pulse Oximetry 93 Oxygen Delivery Room Air CPAP Fraction of Inspired Oxygen 07/24/24 02:29 07/24/24 05:20 07/24/24 07:42 Temperature 36.0 C L Pulse Rate 78 Respiratory Rate 22 H Blood Pressure 116/54 L Pulse Oximetry 95 Oxygen Delivery CPAP Room Air Fraction of Inspired Oxygen 07/24/24 08:13 Temperature Pulse Rate 78 Respiratory Rate Blood Pressure Pulse Oximetry Oxygen Delivery Fraction of Inspired Oxygen Intake/Output Intake/Output: Intake & Output 07/21/24 07/22/24 07/23/24 07/24/24 23:59 23:59 23:59 23:59 Intake Total 920 1270 1020 Output Total 3650 1400 1150 950 Balance -2730 -130 -130 -950 Meds/Results Medications: Active Medications Generic Name Dose Route Start Last Admin Trade Name Freq PRN Reason Stop Dose Admin Acetaminophen 650 mg 07/22/24 22:48 07/22/24 23:08 Acetaminophen 325 Mg Tablet PO 650 mg Q4H PRN Administration pain 6 or less Allopurinol 100 mg 07/22/24 09:00 07/24/24 08:12 Allopurinol 100 Mg Tablet PO 100 mg DAILY NICOLE Administration Amiodarone HCl 200 mg 07/21/24 21:00 07/23/24 21:48 Amiodarone Hcl 200 Mg Tablet PO 200 mg HS NICOLE Administration Amlodipine Besylate 10 mg 07/21/24 10:55 07/24/24 08:13 Amlodipine Besylate 10 Mg Tablet PO 10 mg DAILY NICOLE Administration Apixaban 5 mg 07/21/24 10:55 07/24/24 08:12 Apixaban 5 Mg Tablet PO 5 mg Q12HR NICOLE Administration Bumetanide 2 mg 07/21/24 17:00 07/24/24 08:16 Bumetanide Inj 2.5 Mg/10 Ml Vial IV PUSH 2 mg BID NICOLE Administration Bupropion HCl 150 mg 07/22/24 09:00 07/24/24 08:12 Bupropion Hcl Xl (24 Hr) 150 Mg Tabcr PO 150 mg DAILY NICOLE Administration Buspirone HCl 15 mg 07/22/24 09:00 07/24/24 08:12 Buspirone Hcl 5 Mg Tablet PO 15 mg DAILY NICOLE Administration Calcium Carbonate 500 mg 07/22/24 09:00 07/24/24 08:12 Calcium/Vitamin D 500 Mg/5 Mcg (200 I.U.) Tablet PO 500 mg DAILY NICOLE Administration Carvedilol 6.25 mg 07/22/24 09:00 07/24/24 08:13 Carvedilol 6.25 Mg Tablet PO 6.25 mg DAILY NICOLE Administration Dextrose 12.5 gm 07/21/24 11:05 Dextrose 50% 25 Gm/50 Ml Syringe IV PUSH PRN PRN Hypoglycemia Protocol Divalproex Sodium 500 mg 07/21/24 21:00 07/23/24 21:[address] 250 Mg Tabec PO 500 mg HS NICOLE Administration Empagliflozin 10 mg 07/23/24 09:00 07/24/24 08:13 Empagliflozin 10 Mg Tablet PO 10 mg DAILY NICOLE Administration Famotidine 20 mg 07/21/24 21:00 07/23/24 21:48 Famotidine 20 Mg Tablet PO 20 mg HS NICOLE Administration Gabapentin 100 mg 07/21/24 14:00 07/24/24 05:29 Gabapentin 100 Mg Capsule PO 100 mg Q8HR NICOLE Administration Glucagon 1 mg 07/21/24 11:05 Glucagon For Inj 1 Mg Vial IM PRN PRN Hypoglycemia Protocol Glucose 15 gm 07/21/24 11:05 Glucose Oral Gel 15 Gm Of Glucse In 37.5 Gm Tube PO PRN PRN Hypoglycemia Protocol Hydralazine HCl 10 mg 07/21/24 10:56 Hydralazine Hcl 20 Mg/Ml Vial IV PUSH Q6H PRN Blood Pressure - High Dextrose 1,000 mls @ 100 mls/hr 07/21/24 11:05 Dextrose 5% 1,000 Ml IVPB PRN PRN Hypoglycemia Protocol Insulin Aspart 4 - 8 units 07/21/24 12:00 07/24/24 08:21 Insulin Aspart (*Bkc) 100 Units/Ml SUB-Q 4 units TIDWM NICOLE Administration Protocol Insulin Aspart 2 - 4 units 07/21/24 21:00 07/23/24 21:50 Insulin Aspart (*Bkc) 100 Units/Ml SUB-Q Not Given HS NICOLE Protocol Insulin Aspart 12 units 07/21/24 17:20 07/24/24 08:20 Insulin Aspart (*Bkc) 100 Units/Ml SUB-Q 12 units ACINSULIN NICOLE Administration Isosorbide Dinitrate 10 mg 07/21/24 10:55 07/24/24 08:12 Isosorbide Dinitrate 10 Mg Tablet PO 10 mg Q12HR NICOLE Administration Levothyroxine Sodium 75 mcg 07/22/24 06:30 07/24/24 05:29 Levothyroxine Sodium 75 Mcg Tablet PO 75 mcg 0630 NICOLE Administration Melatonin 5 mg 07/23/24 00:59 07/23/24 21:51 Melatonin 5 Mg Tablet PO 5 mg HS PRN Administration Sleep Memantine 10 mg 07/21/24 10:55 07/24/24 08:12 Memantine 10 Mg Tablet PO 10 mg Q12HR NICOLE Administration Menthol/Methyl Salicylate 1 applic 07/23/24 15:52 07/24/24 08:21 Menthol 10% / Methyl Salicylate 15% 57 Gm Tube TOPICAL 1 applic BID PRN Administration Muscle/Joint Pain Multivitamins/Minerals 1 tablet 07/21/24 11:15 07/24/24 08:12 Opti-Gen Tab PO 1 tablet Q12HR NICOLE Administration Mupirocin 1 applic 07/21/24 21:00 07/24/24 08:14 Mupirocin 2% Oint 22 Gm Tube TOPICAL 1 applic Q12HR NICOLE Administration Non-Formulary ( 0 each 07/21/24 17:25 07/21/24 17:55 Evolocumab 140 Mg/Ml SUB-Q 08/20/24 17:24 1 each Subcutaneous Pen Q14D@0900 NICOLE Administration Injector) Non-Formulary ( 1 each 07/21/24 21:00 07/24/24 08:14 Trospium Chloride 20 PO 08/20/24 20:59 1 each Mg Oral Tablet) Q12HR NICOLE Administration Non-Formulary ( 0 each 07/22/24 09:00 07/24/24 08:14 Insulin Glargine, SUB-Q 08/21/24 08:59 45 each Human Recombinant DAILY NICOLE Administration Analog 300 Unit/Ml ( 3 Ml) Subcut...) Nystatin 1 applic 07/21/24 10:52 Nystatin Ointment 15 Gm Tube TOPICAL BID PRN Rash Pantoprazole Sodium 40 mg 07/21/24 21:00 07/24/24 08:13 Pantoprazole 40 Mg Tablet PO 40 mg Q12HR NICOLE Administration Perflutren Lipid Microsphere 0 ml 07/21/24 10:58 Perflutren Lipid Microspheres 1.5 Ml Vial Diluted To 10 Ml Total Volume IV PUSH 07/24/24 10:58 ONCE PRN adequate visualization Protocol Pramipexole Dihydrochloride 0.25 mg 07/21/24 21:00 07/24/24 08:13 Pramipexole 0.25 Mg Tablet PO 0.25 mg Q12H NICOLE Administration Vitamin B Complex 1 cap 07/22/24 09:00 07/24/24 08:12 Vitamin B Complex Capsule PO 1 cap DAILY NICOLE Administration Radiology Results: ITS Impressions Chest X-Ray 07/20/24 16:47 IMPRESSION: Moderate right and small left-sided pleural effusions, an interval change from previous examination. No focal infiltrate Labs Labs: Laboratory Results - last 24 hr 07/23/24 07/23/24 07/23/24 11:40 16:28 20:34 WBC RBC Hgb Hct MCV MCH MCHC RDW Plt Count MPV Immature Gran % (Auto) Neut % (Auto) Lymph % (Auto) [place] % (Auto) Eos % (Auto) Baso % (Auto) Lymph # (Auto) [place] # (Auto) Eos # (Auto) Baso # (Auto) Abs Immat Gran (auto) Absolute Neuts (auto) Absolute Nucleated RBC Nucleated RBC % Sodium Potassium Chloride Carbon Dioxide Anion Gap BUN Creatinine Estim Creat Clear Calc Estimated GFR Glucose POC Capillary Glucose 162 H 98 67 Calcium Magnesium 11/16/24 11/16/24 11/17/24 20:57 21:22 06:31 WBC 9.4 RBC 3.21 L Hgb 8.8 L Hct 29.3 L MCV 91.3 MCH 27.4 MCHC 30.0 L RDW 16.4 H Plt Count 305 MPV 9.4 Immature Gran % (Auto) 0.3 Neut % (Auto) 69.4 Lymph % (Auto) 17.9 L [place] % (Auto) 7.4 Eos % (Auto) 4.3 Baso % (Auto) 0.7 Lymph # (Auto) 1.67 [place] # (Auto) 0.7 H Eos # (Auto) 0.4 H Baso # (Auto) 0.1 Abs Immat Gran (auto) 0.03 Absolute Neuts (auto) 6.5 Absolute Nucleated RBC 0.000 Nucleated RBC % 0.0 Sodium 138 Potassium 3.8 Chloride 96 L Carbon Dioxide 34 H Anion Gap 8 BUN 37 H Creatinine 2.40 H Estim Creat Clear Calc 23 Estimated GFR 20 L Glucose 200 H POC Capillary Glucose 65 97 Calcium 8.9 Magnesium Cancelled 07/24/24 07/24/24 06:31 07:52 WBC RBC Hgb Hct MCV MCH MCHC RDW Plt Count MPV Immature Gran % (Auto) Neut % (Auto) Lymph % (Auto) [place] % (Auto) Eos % (Auto) Baso % (Auto) Lymph # (Auto) [place] # (Auto) Eos # (Auto) Baso # (Auto) Abs Immat Gran (auto) Absolute Neuts (auto) Absolute Nucleated RBC Nucleated RBC % Sodium Potassium Chloride Carbon Dioxide Anion Gap BUN Creatinine Estim Creat Clear Calc Estimated GFR Glucose POC Capillary Glucose 214 H Calcium Magnesium 2.0
[2024-07-24 11:52] LABS: Glucose Point of Care 312 mg/dl (65-105)
--- NOTE | 2024-07-24 12:31 | P.PNIM_ITS ---
Progress Note: A&P Assessment and Plan (1) Acute CHF: Qualifiers: Heart failure type: unspecified Qualified Code(s): I50.9 - Heart failure, unspecified Code(s): I50.9 - Heart failure, unspecified Status: Acute (2) Elevated troponin: Code(s): R79.89 - Other specified abnormal findings of blood chemistry Status: Acute (3) Paroxysmal atrial fibrillation: Code(s): I48.0 - Paroxysmal atrial fibrillation Status: Chronic (4) Hypothyroidism: Qualifiers: Hypothyroidism type: acquired Qualified Code(s): E03.9 - Hypothyroidism, unspecified Code(s): E03.9 - Hypothyroidism, unspecified Status: Acute (5) Type 2 diabetes mellitus: Code(s): E11.9 - Type 2 diabetes mellitus without complications Status: Acute (6) Stage 3b chronic kidney disease: Code(s): N18.32 - Chronic kidney disease, stage 3b Status: Chronic Plan # Acute CHF Patient has a exertion dyspnea, previous EKG showed diastolic dysfunction Possible acute on chronic diastolic heart failure Started on Bumex 2 mg IV b.i.d. per Cardiology Follow-up input output Consult inpatient services rn for evaluation treatment Hold diuretics due to elevated creatinine # Elevated troponin Patient has history of CAD status post stent, Positive troponin, EKG shows sinus rhythm no specific ST T-wave changes Possible demand ischemia due to uncontrolled hypertension Patient is on Eliquis 5 mg b.i.d. p.o. Isordil 10 mg q.12 hours p.o. Rest evaluation and management per inpatient services rn Telemetry monitoring, EKG p.r.n. # paroxysmal AFib Patient denies palpitation EKG shows sinus rhythm Continue home medication carvedilol 6.25 mg daily p.o., Eliquis 5 mg b.i.d. p.o. # Hypertension urgency Patient received Lasix in the ED Start amlodipine 10 mg daily p.o., hydrochlorothiazide 25 mg daily p.o., Hydralazine 10 mg q.6 hours p.r.n. with parameters Optimize medication for control of blood pressure and target # Chronic anemia No obvious bleeding Follow-up BMP # GERD Continue Protonix 40 mg daily p.o. # CKD stage 3 Avoid nephrotoxic medication Follow-up BMP # Hypothyroidism Continue Synthroid 75 mcg daily p.o. # Type 2 diabetes Continue glargine 25 unit daily, aspart 40 units t.i.d., start insulin sliding scale a.c. and q.h.s. Hypoglycemia protocol as needed # Hypothyroidism continue Synthroid 75 mcg daily p.o. # DVT prophylaxis on apixaban # Code status do not resuscitate Subjective Date/time seen: 07/24/24 12:31 Interval history: no overnight events. Breathing is better. Labs reviewed. Review of Systems Review of Systems: All systems reviewed & are unremarkable except as noted in HPI and below Exam Narrative: GENERAL: Pleasant, in no acute distress. Well-nourished. - EYES: EOMI. Anicteric. - HENT: Moist mucous membranes. - LUNGS: Crackles bilateral base - CARDIOVASCULAR: Regular rate and rhyth m. No murmur. No JVD. - ABDOMEN: Soft, non-tender and non-dist ended. No palpable masses. - EXTREMITIES: Lower extremity edema 1+ Peripheral pulses 2+. Non-tender. - NEUROLOGIC: No focal neurological defi cits. CN II-XII grossly intact. - PSYCHIATRIC: Awake, Alert and oriented x 3. Appropriate mood and affect. - SKIN: No rashes or lesions. Warm. - LYMPH: No cervical lymphadenopathy. Objective Data Vital Signs Vital Signs: Vital Signs - 24 hr 07/23/24 14:00 07/23/24 21:29 07/23/24 21:48 Temperature 97.7 F 98.3 F Pulse Rate 77 96 88 Respiratory Rate 18 20 Blood Pressure 114/55 L 167/73 H Pulse Oximetry 99 100 Oxygen Delivery 07/23/24 20:00 07/23/24 22:20 07/24/24 02:29 Temperature Pulse Rate 80 Respiratory Rate 19 Blood Pressure Pulse Oximetry 93 Oxygen Delivery Room Air CPAP CPAP 07/24/24 05:20 07/24/24 07:42 07/24/24 08:13 Temperature 96.8 F L Pulse Rate 78 78 Respiratory Rate 22 H Blood Pressure 116/54 L Pulse Oximetry 95 Oxygen Delivery Room Air 07/24/24 09:21 07/24/24 08:00 Temperature Pulse Rate Respiratory Rate Blood Pressure Pulse Oximetry Oxygen Delivery Room Air Room Air Intake/Output Intake/Output: Intake & Output 07/21/24 07/22/24 07/23/24 07/24/24 23:59 23:59 23:59 23:59 Intake Total 920 1270 1020 240 Output Total 3650 3945 1150 950 [facility] -2730 -130 -130 -710 Meds/Results Medications: Active Medications Generic Name Dose Route Start Last Admin Trade Name Freq PRN Reason Stop Dose Admin Acetaminophen 650 mg 07/22/24 22:48 07/22/24 23:08 Acetaminophen 325 Mg Tablet PO 650 mg Q4H PRN Administration pain 6 or less Allopurinol 100 mg 07/22/24 09:00 07/24/24 08:12 Allopurinol 100 Mg Tablet PO 100 mg DAILY NICOLE Administration Amiodarone HCl 200 mg 07/21/24 21:00 07/23/24 21:48 Amiodarone Hcl 200 Mg Tablet PO 200 mg HS NICOLE Administration Amlodipine Besylate 10 mg 07/21/24 10:55 07/24/24 08:13 Amlodipine Besylate 10 Mg Tablet PO 10 mg DAILY NICOLE Administration Apixaban 5 mg 07/21/24 10:55 07/24/24 08:12 Apixaban 5 Mg Tablet PO 5 mg Q12HR NICOLE Administration Bumetanide 2 mg 07/21/24 17:00 07/24/24 08:16 Bumetanide Inj 2.5 Mg/10 Ml Vial IV PUSH 2 mg BID NICOLE Administration Bupropion HCl 150 mg 07/22/24 09:00 07/24/24 08:12 Bupropion Hcl Xl (24 Hr) 150 Mg Tabcr PO 150 mg DAILY NICOLE Administration Buspirone HCl 15 mg 07/22/24 09:00 07/24/24 08:12 Buspirone Hcl 5 Mg Tablet PO 15 mg DAILY NICOLE Administration Calcium Carbonate 500 mg 07/22/24 09:00 07/24/24 08:12 Calcium/Vitamin D 500 Mg/5 Mcg (200 I.U.) Tablet PO 500 mg DAILY NICOLE Administration Carvedilol 6.25 mg 07/22/24 09:00 07/24/24 08:13 Carvedilol 6.25 Mg Tablet PO 6.25 mg DAILY NICOLE Administration Dextrose 12.5 gm 07/21/24 11:05 Dextrose 50% 25 Gm/50 Ml Syringe IV PUSH PRN PRN Hypoglycemia Protocol Divalproex Sodium 500 mg 07/21/24 21:00 07/23/24 21:[address] 250 Mg Tabec PO 500 mg HS NICOLE Administration Empagliflozin 10 mg 07/23/24 09:00 07/24/24 08:13 Empagliflozin 10 Mg Tablet PO 10 mg DAILY NICOLE Administration Famotidine 20 mg 07/21/24 21:00 07/23/24 21:48 Famotidine 20 Mg Tablet PO 20 mg HS NICOLE Administration Gabapentin 100 mg 07/21/24 14:00 07/24/24 12:19 Gabapentin 100 Mg Capsule PO 100 mg Q8HR NICOLE Administration Glucagon 1 mg 07/21/24 11:05 Glucagon For Inj 1 Mg Vial IM PRN PRN Hypoglycemia Protocol Glucose 15 gm 07/21/24 11:05 Glucose Oral Gel 15 Gm Of Glucse In 37.5 Gm Tube PO PRN PRN Hypoglycemia Protocol Hydralazine HCl 10 mg 07/21/24 10:56 Hydralazine Hcl 20 Mg/Ml Vial IV PUSH Q6H PRN Blood Pressure - High Dextrose 1,000 mls @ 100 mls/hr 07/21/24 11:05 Dextrose 5% 1,000 Ml IVPB PRN PRN Hypoglycemia Protocol Insulin Aspart 4 - 8 units 07/21/24 12:00 07/24/24 12:18 Insulin Aspart (*Bkc) 100 Units/Ml SUB-Q 6 units TIDWM NICOLE Administration Protocol Insulin Aspart 2 - 4 units 07/21/24 21:00 07/23/24 21:50 Insulin Aspart (*Bkc) 100 Units/Ml SUB-Q Not Given HS NICOLE Protocol Insulin Aspart 12 units 07/21/24 17:20 07/24/24 12:18 Insulin Aspart (*Bkc) 100 Units/Ml SUB-Q 12 units ACINSULIN NICOLE Administration Isosorbide Dinitrate 10 mg 07/21/24 10:55 07/24/24 08:12 Isosorbide Dinitrate 10 Mg Tablet PO 10 mg Q12HR NICOLE Administration Levothyroxine Sodium 75 mcg 07/22/24 06:30 07/24/24 05:29 Levothyroxine Sodium 75 Mcg Tablet PO 75 mcg 0630 NICOLE Administration Melatonin 5 mg 07/23/24 00:59 07/23/24 21:51 Melatonin 5 Mg Tablet PO 5 mg HS PRN Administration Sleep Memantine 10 mg 07/21/24 10:55 07/24/24 08:12 Memantine 10 Mg Tablet PO 10 mg Q12HR NICOLE Administration Menthol/Methyl Salicylate 1 applic 07/23/24 15:52 07/24/24 08:21 Menthol 10% / Methyl Salicylate 15% 57 Gm Tube TOPICAL 1 applic BID PRN Administration Muscle/Joint Pain Multivitamins/Minerals 1 tablet 07/21/24 11:15 07/24/24 08:12 Opti-Gen Tab PO 1 tablet Q12HR NICOLE Administration Mupirocin 1 applic 07/21/24 21:00 07/24/24 08:14 Mupirocin 2% Oint 22 Gm Tube TOPICAL 1 applic Q12HR NICOLE Administration Non-Formulary ( 0 each 07/21/24 17:25 07/21/24 17:55 Evolocumab 140 Mg/Ml SUB-Q 08/20/24 17:24 1 each Subcutaneous Pen Q14D@0900 NICOLE Administration Injector) Non-Formulary ( 1 each 07/21/24 21:00 07/24/24 08:14 Trospium Chloride 20 PO 08/20/24 20:59 1 each Mg Oral Tablet) Q12HR NICOLE Administration Non-Formulary ( 0 each 07/22/24 09:00 07/24/24 08:14 Insulin Glargine, SUB-Q 08/21/24 08:59 45 each Human Recombinant DAILY NICOLE Administration Analog 300 Unit/Ml ( 3 Ml) Subcut...) Nystatin 1 applic 07/21/24 10:52 Nystatin Ointment 15 Gm Tube TOPICAL BID PRN Rash Pantoprazole Sodium 40 mg 07/21/24 21:00 07/24/24 08:13 Pantoprazole 40 Mg Tablet PO 40 mg Q12HR NICOLE Administration Pramipexole Dihydrochloride 0.25 mg 07/21/24 21:00 07/24/24 08:13 Pramipexole 0.25 Mg Tablet PO 0.25 mg Q12H NICOLE Administration Vitamin B Complex 1 cap 07/22/24 09:00 07/24/24 08:12 Vitamin B Complex Capsule PO 1 cap DAILY NICOLE Administration Radiology Results: ITS Impressions Chest X-Ray 07/20/24 16:47 IMPRESSION: Moderate right and small left-sided pleural effusions, an interval change from previous examination. No focal infiltrate Labs Labs: Laboratory Results - last 24 hr 07/23/24 07/23/24 07/23/24 16:28 20:34 20:57 WBC RBC Hgb Hct MCV MCH MCHC RDW Plt Count MPV Immature Gran % (Auto) Neut % (Auto) Lymph % (Auto) [place] % (Auto) Eos % (Auto) Baso % (Auto) Lymph # (Auto) [place] # (Auto) Eos # (Auto) Baso # (Auto) Abs Immat Gran (auto) Absolute Neuts (auto) Absolute Nucleated RBC Nucleated RBC % Sodium Potassium Chloride Carbon Dioxide Anion Gap BUN Creatinine Estim Creat Clear Calc Estimated GFR Glucose POC Capillary Glucose 98 67 65 Calcium Magnesium 07/23/24 07/24/24 07/24/24 21:22 06:31 06:31 WBC 9.4 RBC 3.21 L Hgb 8.8 L Hct 29.3 L MCV 91.3 MCH 27.4 MCHC 30.0 L RDW 16.4 H Plt Count 305 MPV 9.4 Immature Gran % (Auto) 0.3 Neut % (Auto) 69.4 Lymph % (Auto) 17.9 L [place] % (Auto) 7.4 Eos % (Auto) 4.3 Baso % (Auto) 0.7 Lymph # (Auto) 1.67 [place] # (Auto) 0.7 H Eos # (Auto) 0.4 H Baso # (Auto) 0.1 Abs Immat Gran (auto) 0.03 Absolute Neuts (auto) 6.5 Absolute Nucleated RBC 0.000 Nucleated RBC % 0.0 Sodium 138 Potassium 3.8 Chloride 96 L Carbon Dioxide 34 H Anion Gap 8 BUN 37 H Creatinine 2.40 H Estim Creat Clear Calc 23 Estimated GFR 20 L Glucose 200 H POC Capillary Glucose 97 Calcium 8.9 Magnesium Cancelled 2.0 07/24/24 07/24/24 07:52 11:48 WBC RBC Hgb Hct MCV MCH MCHC RDW Plt Count MPV Immature Gran % (Auto) Neut % (Auto) Lymph % (Auto) [place] % (Auto) Eos % (Auto) Baso % (Auto) Lymph # (Auto) [place] # (Auto) Eos # (Auto) Baso # (Auto) Abs Immat Gran (auto) Absolute Neuts (auto) Absolute Nucleated RBC Nucleated RBC % Sodium Potassium Chloride Carbon Dioxide Anion Gap BUN Creatinine Estim Creat Clear Calc Estimated GFR Glucose POC Capillary Glucose 214 H 312 H Calcium Magnesium
[2024-07-24 14:00] VITALS: BP 105/75; PULSE 77; RESP 16; TEMP 36.6; O2SAT 93
[2024-07-24 16:54] LABS: Glucose Point of Care 139 mg/dl (65-105)
[2024-07-24 20:19] LABS: Glucose Point of Care 82 mg/dl (65-105)
[2024-07-24 20:52] VITALS: PULSE 77
[2024-07-24] MEDS: FAMOTIDINE 20 MG TABLET PO (20:52)
[2024-07-24] MEDS: AMIODARONE HCL 200 MG TABLET PO (20:52)
[2024-07-24] MEDS: DIVALPROEX SODIUM DR 250 MG TABEC 500 MG PO (20:58)
[2024-07-24 21:09] LABS: Glucose Point of Care 90 mg/dl (65-105)
[2024-07-24 21:09] LABS: Glucose Point of Care 96 mg/dl (65-105)
[2024-07-24 21:23] VITALS: BP 152/60; PULSE 83; RESP 20; TEMP 36.4; O2SAT 95
[2024-07-25 05:54] VITALS: BP 126/49; PULSE 84; RESP 22; TEMP 36.7; O2SAT 93
[2024-07-25] MEDS: LEVOTHYROXINE SODIUM 75 MCG TABLET PO (06:19)
[2024-07-25] MEDS: GABAPENTIN 100 MG CAPSULE PO ×3 (06:19→21:22)
[2024-07-25 06:48] LABS: Glucose Point of Care 125 mg/dl (65-105)
[2024-07-25 07:35] LABS: Basophils Absolute Auto 0.1 K/mm3 (0.0-0.1); Basophils Percent Auto 0.5 % (0.2-1.2); Eosinophils Absolute Auto 0.5 K/mm3 (0-0.3); Eosinophils Percent Auto 5.3 % (0-4.4); Hemoglobin 9.4 g/dL (12.0-15.0); Immature Granulocyte Absolute 0.03 K/mm3 (0.00-0.031); Immature Granulocyte Percent A 0.3 % (0-0.5); Lymphocytes Absolute Auto 1.31 K/mm3 (0.9-3.2); Lymphocytes Percent Auto 13.4 % (18.3-44.2); Mean Corpuscular HGB Conc 30.3 g/dl (32-36); Mean Corpuscular Hemoglobin 27.6 pg (26-34); Mean Corpuscular Volume 91.2 fl (80-100); Mean Platelet Volume 9.7 fl (7.4-10.4); Monocytes Absolute Auto 0.7 K/mm3 (0.1-0.6); Monocytes Percent Auto 7.3 % (2.6-8.5); Neutrophils Absolute Auto 7.2 K/mm3 (1.3-6.7); Neutrophils Percent Auto 73.2 % (45.5-73.1); Platelet Count Result 329 k/mm3 (150-375); Red Cell Distribution Width 16.4 % (11.5-14.5); White Blood Count 9.8 K/mm3 (4.5-10.0)
[2024-07-25 07:46] LABS: Glucose Point of Care 198 mg/dl (65-105)
[2024-07-25 07:47] LABS: Anion Gap 8 mmol/L (4-12); Blood Urea Nitrogen 38 mg/dL (7-17); Carbon Dioxide 36 mmol/L (22-30); Chloride 95 mmol/L (98-107); Estimated CRCL calculation 21 ml/min; Estimated Glomerular Filt Rate 18; Glucose 180 mg/dL (65-110); Magnesium 2.2 mg/dL (1.6-2.3); Potassium 3.7 mmol/L (3.4-5.0); Sodium 139 mmol/L (137-145)
[2024-07-25] MEDS: busPIRone HCL 5 MG TABLET 15 MG PO (07:56)
[2024-07-25] MEDS: EMPAGLIFLOZIN 10 MG TABLET PO (07:57)
[2024-07-25] MEDS: VITAMIN B COMPLEX CAPSULE 1 CAP PO (07:57)
[2024-07-25] MEDS: allopurinoL 100 MG TABLET PO (07:57)
[2024-07-25] MEDS: CALCIUM/VITAMIN D 500 MG/5 MCG (200 I.U.) TABLET PO (07:57)
[2024-07-25] MEDS: buPROPion HCL XL (24 HR) 150 MG TABCR PO (07:57)
[2024-07-25] MEDS: OPTI-GEN TAB 1 TABLET PO ×2 (07:57→21:22)
[2024-07-25] MEDS: carvediloL 6.25 MG TABLET PO (07:57)
[2024-07-25] MEDS: PANTOPRAZOLE 40 MG TABLET PO ×2 (07:57→21:22)
[2024-07-25] MEDS: APIXABAN 5 MG TABLET PO ×2 (07:57→21:23)
[2024-07-25] MEDS: ISOSORBIDE DINITRATE 10 MG TABLET PO ×2 (07:57→21:22)
[2024-07-25] MEDS: MEMANTINE 10 MG TABLET PO ×2 (07:57→21:22)
[2024-07-25] MEDS: amLODIPine BESYLATE 10 MG TABLET PO (07:57)
[2024-07-25] MEDS: PRAMIPEXOLE 0.25 MG TABLET PO ×2 (07:57→21:22)
[2024-07-25] MEDS: MUPIROCIN 2% OINT 22 GM TUBE 1 APPLIC TOPICAL ×2 (07:58→21:29)
[2024-07-25 08:00] VITALS: PULSE 84; RESP 22; O2SAT 93
[2024-07-25] MEDS: TROSPIUM CHLORIDE 20 MG 1 EACH PO ×2 (08:00→08:01)
[2024-07-25] MEDS: [UNRECOGNIZED DRUG - OTHER] SUB-Q (08:02)
[2024-07-25] MEDS: INSULIN GLARGINE SUB-Q (08:02)
[2024-07-25] MEDS: INSULIN ASPART (*BKC) 100 UNITS/ML 12 UNITS SUB-Q ×3 (08:05→16:29)
--- NOTE | 2024-07-25 09:48 | P.PNCA_ITS ---
Progress Note: A&P Assessment and Plan (1) Acute on chronic heart failure with preserved ejection fraction (HFpEF, >= 50%): Code(s): I50.33 - Acute on chronic diastolic (congestive) heart failure Status: Acute (2) Coronary artery disease: Code(s): I25.10 - Atherosclerotic heart disease of [place] coronary artery without angina pectoris Status: Acute (3) Atrial fibrillation: Qualifiers: Atrial fibrillation type: unspecified Qualified Code(s): I48.91 - Unspecified atrial fibrillation Code(s): I48.91 - Unspecified atrial fibrillation Status: Acute Assessment and Plan: - On Apixaban Plan 78-year-old woman with CAD status post multivessel PCI, HFpEF, paroxysmal atrial fibrillation, hypertension, and hyperlipidemia presented with worsening shortness of breath, orthopnea, and lower extremity swelling consistent with acute on chronic diastolic heart failure Acute on chronic diastolic heart failure - Has reached euvolemia - Creatinine still high. Will continue to hold IV bumex -should her creatinine stabilize, she can resume Bumex 2 mg p.o. b.i.d. which is her home dose CAD status post multivessel PCI - On PCSK9, imdur - Not on ASA 81 mg - Discussed wit here regaridng R/B/A, she agreed to initiate ASA 81 mg Paroxysmal atrial fibrillation -continue carvedilol 6.25 mg p.o. b.i.d., amiodarone 200 mg p.o. daily, and Eliquis 5 mg p.o. b.i.d. Hypertension -continue amlodipine 10 mg p.o. daily with goal systolic blood pressure less than 130mmHg -continue Isordil 10 mg b.i.d. and carvedilol 6.25 mg p.o. b.i.d. -should systolic blood pressure be above goal, isosorbide dinitrate can be increased to 20 mg p.o. b.i.d. Hyperlipidemia -continue Repatha as an outpatient Subjective Date/time seen: 07/25/24 09:48 Interval history: no overnight events. Breathing is better. Labs reviewed. Cr 2.6 - 360 ml in last 24 hours Review of Systems Review of Systems: All systems reviewed & are unremarkable except as noted in HPI and below (HPI) Cardiovascular: Cardiovascular: Reports as per HPI and Denies chest pain Respiratory: Respiratory: Reports as per HPI Exam Const: General: comfortable, no acute distress, alert and awake Orientation/consciousness: patient oriented x3 HENMT: Head: normal to inspection Mouth: Yes moist mucous membranes Eyes: General: appearance normal, both eyes and all related structures Sclera: sclerae normal Pupils: Equal, round and reactive pupils present EOM: EOMs intact bilaterally Neck: Neck: normal visual inspection, supple and no JVD Carotids: normal carotid upstroke Resp: Effort & Inspection: normal respiratory effort Auscultation: clear to auscultation bilaterally and rales bilateral Cardio: Rate: regular rate Rhythm: regular rhythm and abnormal rhythm Heart sounds: S1 normal heart sound present, S2 normal heart sound present and no murmurs Other: + Bilateral lower extremity edema GI: Auscultation: normal bowel sounds Skin: General skin exam: normal color and lesion Lesions: lesion noted Other: redness and erythema bilateral lower legs Neuro: General: patient oriented x3 Cranial nerves: Yes Equal, round and reactive pupils present Speech: normal speech Extrem: General: abnormal to inspection, edema and pedal edema Psych: Appearance: grossly normal Mental Status: mental status grossly normal Affect: normal affect Objective Data Vital Signs Vital Signs: Vital Signs - 24 hr 07/24/24 14:00 07/24/24 20:52 07/24/24 21:23 Temperature 36.6 C 36.4 C Pulse Rate 77 77 83 Respiratory Rate 16 20 Blood Pressure 105/75 152/60 H Pulse Oximetry 93 95 Oxygen Delivery Fraction of Inspired Oxygen 07/25/24 05:54 07/25/24 08:00 Temperature 36.7 C Pulse Rate 84 84 Respiratory Rate 22 H 22 H Blood Pressure 126/49 L Pulse Oximetry 93 93 Oxygen Delivery Room Air Fraction of Inspired Oxygen 21 Intake/Output Intake/Output: Intake & Output 07/22/24 07/23/24 07/24/24 07/25/24 23:59 23:59 23:59 23:59 Intake Total 1270 5771 063 1389 Output Total 1400 1150 1850 700 Balance -130 -130 -1370 300 Meds/Results Medications: Active Medications Generic Name Dose Route Start Last Admin Trade Name Freq PRN Reason Stop Dose Admin Acetaminophen 650 mg 07/22/24 22:48 07/22/24 23:08 Acetaminophen 325 Mg Tablet PO 650 mg Q4H PRN Administration pain 6 or less Allopurinol 100 mg 07/22/24 09:00 07/25/24 07:57 Allopurinol 100 Mg Tablet PO 100 mg DAILY NICOLE Administration Amiodarone HCl 200 mg 07/21/24 21:00 07/24/24 20:52 Amiodarone Hcl 200 Mg Tablet PO 200 mg HS NICOLE Administration Amlodipine Besylate 10 mg 07/21/24 10:55 07/25/24 07:57 Amlodipine Besylate 10 Mg Tablet PO 10 mg DAILY NICOLE Administration Apixaban 5 mg 07/21/24 10:55 07/25/24 07:57 Apixaban 5 Mg Tablet PO 5 mg Q12HR NICOLE Administration Aspirin 81 mg 07/26/24 09:00 Aspirin 81 Mg Enteric Tablet PO QAM NICOLE Bumetanide 2 mg 07/21/24 17:00 07/24/24 08:16 Bumetanide Inj 2.5 Mg/10 Ml Vial IV PUSH 2 mg BID NICOLE Administration Bupropion HCl 150 mg 07/22/24 09:00 07/25/24 07:57 Bupropion Hcl Xl (24 Hr) 150 Mg Tabcr PO 150 mg DAILY NICOLE Administration Buspirone HCl 15 mg 07/22/24 09:00 07/25/24 07:56 Buspirone Hcl 5 Mg Tablet PO 15 mg DAILY NICOLE Administration Calcium Carbonate 500 mg 07/22/24 09:00 07/25/24 07:57 Calcium/Vitamin D 500 Mg/5 Mcg (200 I.U.) Tablet PO 500 mg DAILY NICOLE Administration Carvedilol 6.25 mg 07/22/24 09:00 07/25/24 07:57 Carvedilol 6.25 Mg Tablet PO 6.25 mg DAILY NICOLE Administration Dextrose 12.5 gm 07/21/24 11:05 Dextrose 50% 25 Gm/50 Ml Syringe IV PUSH PRN PRN Hypoglycemia Protocol Divalproex Sodium 500 mg 07/21/24 21:00 07/24/24 20:[address] 250 Mg Tabec PO 500 mg HS NICOLE Administration Empagliflozin 10 mg 07/23/24 09:00 07/25/24 07:57 Empagliflozin 10 Mg Tablet PO 10 mg DAILY NICOLE Administration Famotidine 20 mg 07/21/24 21:00 07/24/24 20:52 Famotidine 20 Mg Tablet PO 20 mg HS NICOLE Administration Gabapentin 100 mg 07/21/24 14:00 07/25/24 06:19 Gabapentin 100 Mg Capsule PO 100 mg Q8HR NICOLE Administration Glucagon 1 mg 07/21/24 11:05 Glucagon For Inj 1 Mg Vial IM PRN PRN Hypoglycemia Protocol Glucose 15 gm 07/21/24 11:05 Glucose Oral Gel 15 Gm Of Glucse In 37.5 Gm Tube PO PRN PRN Hypoglycemia Protocol Hydralazine HCl 10 mg 07/21/24 10:56 Hydralazine Hcl 20 Mg/Ml Vial IV PUSH Q6H PRN Blood Pressure - High Dextrose 1,000 mls @ 100 mls/hr 07/21/24 11:05 Dextrose 5% 1,000 Ml IVPB PRN PRN Hypoglycemia Protocol Insulin Aspart 4 - 8 units 07/21/24 12:00 07/25/24 08:07 Insulin Aspart (*Bkc) 100 Units/Ml SUB-Q Not Given TIDWM NICOLE Protocol Insulin Aspart 2 - 4 units 07/21/24 21:00 07/24/24 21:03 Insulin Aspart (*Bkc) 100 Units/Ml SUB-Q Not Given HS NICOLE Protocol Insulin Aspart 12 units 07/21/24 17:20 07/25/24 08:05 Insulin Aspart (*Bkc) 100 Units/Ml SUB-Q 12 units ACINSULIN NICOLE Administration Isosorbide Dinitrate 10 mg 07/21/24 10:55 07/25/24 07:57 Isosorbide Dinitrate 10 Mg Tablet PO 10 mg Q12HR NICOLE Administration Levothyroxine Sodium 75 mcg 07/22/24 06:30 07/25/24 06:19 Levothyroxine Sodium 75 Mcg Tablet PO 75 mcg 0630 NICOLE Administration Melatonin 5 mg 07/23/24 00:59 07/23/24 21:51 Melatonin 5 Mg Tablet PO 5 mg HS PRN Administration Sleep Memantine 10 mg 07/21/24 10:55 07/25/24 07:57 Memantine 10 Mg Tablet PO 10 mg Q12HR NICOLE Administration Menthol/Methyl Salicylate 1 applic 07/23/24 15:52 07/24/24 08:21 Menthol 10% / Methyl Salicylate 15% 57 Gm Tube TOPICAL 1 applic BID PRN Administration Muscle/Joint Pain Multivitamins/Minerals 1 tablet 07/21/24 11:15 07/25/24 07:57 Opti-Gen Tab PO 1 tablet Q12HR NICOLE Administration Mupirocin 1 applic 07/21/24 21:00 07/25/24 07:58 Mupirocin 2% Oint 22 Gm Tube TOPICAL 1 applic Q12HR NICOLE Administration Non-Formulary ( 0 each 07/21/24 17:25 07/21/24 17:55 Evolocumab 140 Mg/Ml SUB-Q 08/20/24 17:24 1 each Subcutaneous Pen Q14D@0900 NICOLE Administration Injector) Non-Formulary ( 1 each 07/21/24 21:00 07/25/24 08:01 Trospium Chloride 20 PO 08/20/24 20:59 1 each Mg Oral Tablet) Q12HR NICOLE Administration Non-Formulary ( 0 each 07/22/24 09:00 07/25/24 08:02 Insulin Glargine, SUB-Q 08/21/24 08:59 45 each Human Recombinant DAILY NICOLE Administration Analog 300 Unit/Ml ( 3 Ml) Subcut...) Nystatin 1 applic 07/21/24 10:52 Nystatin Ointment 15 Gm Tube TOPICAL BID PRN Rash Pantoprazole Sodium 40 mg 07/21/24 21:00 07/25/24 07:57 Pantoprazole 40 Mg Tablet PO 40 mg Q12HR NICOLE Administration Pramipexole Dihydrochloride 0.25 mg 07/21/24 21:00 07/25/24 07:57 Pramipexole 0.25 Mg Tablet PO 0.25 mg Q12H NICOLE Administration Vitamin B Complex 1 cap 07/22/24 09:00 07/25/24 07:57 Vitamin B Complex Capsule PO 1 cap DAILY NICOLE Administration Radiology Results: ITS Impressions Chest X-Ray 07/20/24 16:47 IMPRESSION: Moderate right and small left-sided pleural effusions, an interval change from previous examination. No focal infiltrate Labs Labs: Laboratory Results - last 24 hr 07/24/24 07/24/24 07/24/24 11:48 16:50 19:45 WBC RBC Hgb Hct MCV MCH MCHC RDW Plt Count MPV Immature Gran % (Auto) Neut % (Auto) Lymph % (Auto) [place] % (Auto) Eos % (Auto) Baso % (Auto) Lymph # (Auto) [place] # (Auto) Eos # (Auto) Baso # (Auto) Abs Immat Gran (auto) Absolute Neuts (auto) Absolute Nucleated RBC Nucleated RBC % Sodium Potassium Chloride Carbon Dioxide Anion Gap BUN Creatinine Estim Creat Clear Calc Estimated GFR Glucose POC Capillary Glucose 312 H 139 H 96 Calcium Magnesium 07/24/24 07/24/24 07/25/24 20:14 20:45 00:00 WBC RBC Hgb Hct MCV MCH MCHC RDW Plt Count MPV Immature Gran % (Auto) Neut % (Auto) Lymph % (Auto) [place] % (Auto) Eos % (Auto) Baso % (Auto) Lymph # (Auto) [place] # (Auto) Eos # (Auto) Baso # (Auto) Abs Immat Gran (auto) Absolute Neuts (auto) Absolute Nucleated RBC Nucleated RBC % Sodium Potassium Chloride Carbon Dioxide Anion Gap BUN Creatinine Estim Creat Clear Calc Estimated GFR Glucose POC Capillary Glucose 82 90 125 H Calcium Magnesium 07/25/24 07/25/24 06:52 07:32 WBC 9.8 RBC 3.40 L Hgb 9.4 L Hct 31.0 L MCV 91.2 MCH 27.6 MCHC 30.3 L RDW 16.4 H Plt Count 329 MPV 9.7 Immature Gran % (Auto) 0.3 Neut % (Auto) 73.2 H Lymph % (Auto) 13.4 L [place] % (Auto) 7.3 Eos % (Auto) 5.3 H Baso % (Auto) 0.5 Lymph # (Auto) 1.31 [place] # (Auto) 0.7 H Eos # (Auto) 0.5 H Baso # (Auto) 0.1 Abs Immat Gran (auto) 0.03 Absolute Neuts (auto) 7.2 H Absolute Nucleated RBC 0.000 Nucleated RBC % 0.0 Sodium 139 Potassium 3.7 Chloride 95 L Carbon Dioxide 36 H Anion Gap 8 BUN 38 H Creatinine 2.60 H Estim Creat Clear Calc 21 Estimated GFR 18 L Glucose 180 H POC Capillary Glucose 198 H Calcium 9.0 Magnesium 2.2
[2024-07-25] MEDS: INSULIN ASPART (*BKC) 100 UNITS/ML SUB-Q (11:35)
[2024-07-25 11:41] LABS: Glucose Point of Care 201 mg/dl (65-105)
[2024-07-25 14:00] VITALS: BP 140/56; PULSE 75; RESP 20; TEMP 36.7; O2SAT 100
--- NOTE | 2024-07-25 14:05 | P.PNIM_ITS ---
Progress Note: A&P Assessment and Plan (1) Acute CHF: Qualifiers: Heart failure type: unspecified Qualified Code(s): I50.9 - Heart failure, unspecified Code(s): I50.9 - Heart failure, unspecified Status: Acute (2) Elevated troponin: Code(s): R79.89 - Other specified abnormal findings of blood chemistry Status: Acute (3) Paroxysmal atrial fibrillation: Code(s): I48.0 - Paroxysmal atrial fibrillation Status: Chronic (4) Hypothyroidism: Qualifiers: Hypothyroidism type: acquired Qualified Code(s): E03.9 - Hypothyroidism, unspecified Code(s): E03.9 - Hypothyroidism, unspecified Status: Acute (5) Type 2 diabetes mellitus: Code(s): E11.9 - Type 2 diabetes mellitus without complications Status: Acute (6) Stage 3b chronic kidney disease: Code(s): N18.32 - Chronic kidney disease, stage 3b Status: Chronic Plan # Acute CHF Patient has a exertion dyspnea, previous EKG showed diastolic dysfunction Possible acute on chronic diastolic heart failure Started on Bumex 2 mg IV b.i.d. per Cardiology Follow-up input output Consult plant maintenance mechanic for evaluation treatment Hold diuretics due to elevated creatinine which continues to incline # Elevated troponin Patient has history of CAD status post stent, Positive troponin, EKG shows sinus rhythm no specific ST T-wave changes Possible demand ischemia due to uncontrolled hypertension Patient is on Eliquis 5 mg b.i.d. p.o. Isordil 10 mg q.12 hours p.o. Rest evaluation and management per plant maintenance mechanic Telemetry monitoring, EKG p.r.n. # paroxysmal AFib Patient denies palpitation EKG shows sinus rhythm Continue home medication carvedilol 6.25 mg daily p.o., Eliquis 5 mg b.i.d. p.o. # Hypertension urgency Patient received Lasix in the ED Start amlodipine 10 mg daily p.o., hydrochlorothiazide 25 mg daily p.o., Hydralazine 10 mg q.6 hours p.r.n. with parameters Optimize medication for control of blood pressure and target Hydrochlorothiazide on hold # Chronic anemia No obvious bleeding Follow-up BMP # GERD Continue Protonix 40 mg daily p.o. # CKD stage 3 Avoid nephrotoxic medication Follow-up BMP # Hypothyroidism Continue Synthroid 75 mcg daily p.o. # Type 2 diabetes Continue glargine 25 unit daily, aspart 40 units t.i.d., start insulin sliding scale a.c. and q.h.s. Hypoglycemia protocol as needed # Hypothyroidism continue Synthroid 75 mcg daily p.o. # DVT prophylaxis on apixaban # Code status do not resuscitate Subjective Date/time seen: 07/25/24 14:05 Interval history: No overnight events. Feels okay. Denies any shortness of breath or chest pain. Leg swelling has improved. Review of Systems Review of Systems: All systems reviewed & are unremarkable except as noted in HPI and below Exam Narrative: GENERAL: Pleasant, in no acute distress. Well-nourished. - EYES: EOMI. Anicteric. - HENT: Moist mucous membranes. - LUNGS: Crackles bilateral base - CARDIOVASCULAR: Regular rate and rhyth m. No murmur. No JVD. - ABDOMEN: Soft, non-tender and non-dist ended. No palpable masses. - EXTREMITIES: Lower extremity edema 1+ Peripheral pulses 2+. Non-tender. - NEUROLOGIC: No focal neurological defi cits. CN II-XII grossly intact. - PSYCHIATRIC: Awake, Alert and oriented x 3. Appropriate mood and affect. - SKIN: No rashes or lesions. Warm. - LYMPH: No cervical lymphadenopathy. Objective Data Vital Signs Vital Signs: Vital Signs - 24 hr 07/24/24 20:52 07/24/24 21:23 07/25/24 05:54 Temperature 97.6 F 98.1 F Pulse Rate 77 83 84 Respiratory Rate 20 22 H Blood Pressure 152/60 H 126/49 L Pulse Oximetry 95 93 Oxygen Delivery Fraction of Inspired Oxygen 07/25/24 08:00 Temperature Pulse Rate 84 Respiratory Rate 22 H Blood Pressure Pulse Oximetry 93 Oxygen Delivery Room Air Fraction of Inspired Oxygen 21 Intake/Output Intake/Output: Intake & Output 07/22/24 07/23/24 07/24/24 07/25/24 23:59 23:59 23:59 23:59 Intake Total 1270 5624 051 3931 Output Total 1400 1150 1850 700 Balance -130 -130 -1370 540 Meds/Results Medications: Active Medications Generic Name Dose Route Start Last Admin Trade Name Freq PRN Reason Stop Dose Admin Acetaminophen 650 mg 07/22/24 22:48 07/22/24 23:08 Acetaminophen 325 Mg Tablet PO 650 mg Q4H PRN Administration pain 6 or less Allopurinol 100 mg 07/22/24 09:00 07/25/24 07:57 Allopurinol 100 Mg Tablet PO 100 mg DAILY NICOLE Administration Amiodarone HCl 200 mg 07/21/24 21:00 07/24/24 20:52 Amiodarone Hcl 200 Mg Tablet PO 200 mg HS NICOLE Administration Amlodipine Besylate 10 mg 07/21/24 10:55 07/25/24 07:57 Amlodipine Besylate 10 Mg Tablet PO 10 mg DAILY NICOLE Administration Apixaban 5 mg 07/21/24 10:55 07/25/24 07:57 Apixaban 5 Mg Tablet PO 5 mg Q12HR NICOLE Administration Aspirin 81 mg 07/26/24 09:00 Aspirin 81 Mg Enteric Tablet PO QAM NICOLE Bumetanide 2 mg 07/21/24 17:00 07/24/24 08:16 Bumetanide Inj 2.5 Mg/10 Ml Vial IV PUSH 2 mg BID NICOLE Administration Bupropion HCl 150 mg 07/22/24 09:00 07/25/24 07:57 Bupropion Hcl Xl (24 Hr) 150 Mg Tabcr PO 150 mg DAILY NICOLE Administration Buspirone HCl 15 mg 07/22/24 09:00 07/25/24 07:56 Buspirone Hcl 5 Mg Tablet PO 15 mg DAILY NICOLE Administration Calcium Carbonate 500 mg 07/22/24 09:00 07/25/24 07:57 Calcium/Vitamin D 500 Mg/5 Mcg (200 I.U.) Tablet PO 500 mg DAILY NICOLE Administration Carvedilol 6.25 mg 07/22/24 09:00 07/25/24 07:57 Carvedilol 6.25 Mg Tablet PO 6.25 mg DAILY NICOLE Administration Dextrose 12.5 gm 07/21/24 11:05 Dextrose 50% 25 Gm/50 Ml Syringe IV PUSH PRN PRN Hypoglycemia Protocol Divalproex Sodium 500 mg 07/21/24 21:00 07/24/24 20:[address] 250 Mg Tabec PO 500 mg HS NICOLE Administration Empagliflozin 10 mg 07/23/24 09:00 07/25/24 07:57 Empagliflozin 10 Mg Tablet PO 10 mg DAILY NICOLE Administration Famotidine 20 mg 07/21/24 21:00 07/24/24 20:52 Famotidine 20 Mg Tablet PO 20 mg HS NICOLE Administration Gabapentin 100 mg 07/21/24 14:00 07/25/24 13:52 Gabapentin 100 Mg Capsule PO 100 mg Q8HR NICOLE Administration Glucagon 1 mg 07/21/24 11:05 Glucagon For Inj 1 Mg Vial IM PRN PRN Hypoglycemia Protocol Glucose 15 gm 07/21/24 11:05 Glucose Oral Gel 15 Gm Of Glucse In 37.5 Gm Tube PO PRN PRN Hypoglycemia Protocol Hydralazine HCl 10 mg 07/21/24 10:56 Hydralazine Hcl 20 Mg/Ml Vial IV PUSH Q6H PRN Blood Pressure - High Dextrose 1,000 mls @ 100 mls/hr 07/21/24 11:05 Dextrose 5% 1,000 Ml IVPB PRN PRN Hypoglycemia Protocol Insulin Aspart 4 - 8 units 07/21/24 12:00 07/25/24 11:35 Insulin Aspart (*Bkc) 100 Units/Ml SUB-Q 4 units TIDWM NICOLE Administration Protocol Insulin Aspart 2 - 4 units 07/21/24 21:00 07/24/24 21:03 Insulin Aspart (*Bkc) 100 Units/Ml SUB-Q Not Given HS NIOCLE Protocol Insulin Aspart 12 units 07/21/24 17:20 07/25/24 11:36 Insulin Aspart (*Bkc) 100 Units/Ml SUB-Q 12 units ACINSULIN NICOLE Administration Isosorbide Dinitrate 10 mg 07/21/24 10:55 07/25/24 07:57 Isosorbide Dinitrate 10 Mg Tablet PO 10 mg Q12HR NICOLE Administration Levothyroxine Sodium 75 mcg 07/22/24 06:30 07/25/24 06:19 Levothyroxine Sodium 75 Mcg Tablet PO 75 mcg 0630 NICOLE Administration Melatonin 5 mg 07/23/24 00:59 07/23/24 21:51 Melatonin 5 Mg Tablet PO 5 mg HS PRN Administration Sleep Memantine 10 mg 07/21/24 10:55 07/25/24 07:57 Memantine 10 Mg Tablet PO 10 mg Q12HR NICOLE Administration Menthol/Methyl Salicylate 1 applic 07/23/24 15:52 07/24/24 08:21 Menthol 10% / Methyl Salicylate 15% 57 Gm Tube TOPICAL 1 applic BID PRN Administration Muscle/Joint Pain Multivitamins/Minerals 1 tablet 07/21/24 11:15 07/25/24 07:57 Opti-Gen Tab PO 1 tablet Q12HR NICOLE Administration Mupirocin 1 applic 07/21/24 21:00 07/25/24 07:58 Mupirocin 2% Oint 22 Gm Tube TOPICAL 1 applic Q12HR NICOLE Administration Non-Formulary ( 0 each 07/21/24 17:25 07/21/24 17:55 Evolocumab 140 Mg/Ml SUB-Q 08/20/24 17:24 1 each Subcutaneous Pen Q14D@0900 NICOLE Administration Injector) Non-Formulary ( 1 each 07/21/24 21:00 07/25/24 08:01 Trospium Chloride 20 PO 08/20/24 20:59 1 each Mg Oral Tablet) Q12HR NICOLE Administration Non-Formulary ( 0 each 07/22/24 09:00 07/25/24 08:02 Insulin Glargine, SUB-Q 08/21/24 08:59 45 each Human Recombinant DAILY NICOLE Administration Analog 300 Unit/Ml ( 3 Ml) Subcut...) Nystatin 1 applic 07/21/24 10:52 Nystatin Ointment 15 Gm Tube TOPICAL BID PRN Rash Pantoprazole Sodium 40 mg 07/21/24 21:00 07/25/24 07:57 Pantoprazole 40 Mg Tablet PO 40 mg Q12HR NICOLE Administration Pramipexole Dihydrochloride 0.25 mg 07/21/24 21:00 07/25/24 07:57 Pramipexole 0.25 Mg Tablet PO 0.25 mg Q12H NICOLE Administration Vitamin B Complex 1 cap 07/22/24 09:00 07/25/24 07:57 Vitamin B Complex Capsule PO 1 cap DAILY NICOLE Administration Radiology Results: ITS Impressions Chest X-Ray 07/20/24 16:47 IMPRESSION: Moderate right and small left-sided pleural effusions, an interval change from previous examination. No focal infiltrate Labs Labs: Laboratory Results - last 24 hr 07/24/24 07/24/24 07/24/24 16:50 19:45 20:14 WBC RBC Hgb Hct MCV MCH MCHC RDW Plt Count MPV Immature Gran % (Auto) Neut % (Auto) Lymph % (Auto) [place] % (Auto) Eos % (Auto) Baso % (Auto) Lymph # (Auto) [place] # (Auto) Eos # (Auto) Baso # (Auto) Abs Immat Gran (auto) Absolute Neuts (auto) Absolute Nucleated RBC Nucleated RBC % Sodium Potassium Chloride Carbon Dioxide Anion Gap BUN Creatinine Estim Creat Clear Calc Estimated GFR Glucose POC Capillary Glucose 139 H 96 82 Calcium Magnesium 07/24/24 07/25/24 07/25/24 20:45 00:00 06:52 WBC 9.8 RBC 3.40 L Hgb 9.4 L Hct 31.0 L MCV 91.2 MCH 27.6 MCHC 30.3 L RDW 16.4 H Plt Count 329 MPV 9.7 Immature Gran % (Auto) 0.3 Neut % (Auto) 73.2 H Lymph % (Auto) 13.4 L [place] % (Auto) 7.3 Eos % (Auto) 5.3 H Baso % (Auto) 0.5 Lymph # (Auto) 1.31 [place] # (Auto) 0.7 H Eos # (Auto) 0.5 H Baso # (Auto) 0.1 Abs Immat Gran (auto) 0.03 Absolute Neuts (auto) 7.2 H Absolute Nucleated RBC 0.000 Nucleated RBC % 0.0 Sodium 139 Potassium 3.7 Chloride 95 L Carbon Dioxide 36 H Anion Gap 8 BUN 38 H Creatinine 2.60 H Estim Creat Clear Calc 21 Estimated GFR 18 L Glucose 180 H POC Capillary Glucose 90 125 H Calcium 9.0 Magnesium 2.2 07/25/24 07/25/24 07:32 11:31 WBC RBC Hgb Hct MCV MCH MCHC RDW Plt Count MPV Immature Gran % (Auto) Neut % (Auto) Lymph % (Auto) [place] % (Auto) Eos % (Auto) Baso % (Auto) Lymph # (Auto) [place] # (Auto) Eos # (Auto) Baso # (Auto) Abs Immat Gran (auto) Absolute Neuts (auto) Absolute Nucleated RBC Nucleated RBC % Sodium Potassium Chloride Carbon Dioxide Anion Gap BUN Creatinine Estim Creat Clear Calc Estimated GFR Glucose POC Capillary Glucose 198 H 201 H Calcium Magnesium
[2024-07-25 16:25] LABS: Glucose Point of Care 113 mg/dl (65-105)
[2024-07-25 21:22] VITALS: PULSE 76
[2024-07-25] MEDS: FAMOTIDINE 20 MG TABLET PO (21:22)
[2024-07-25] MEDS: AMIODARONE HCL 200 MG TABLET PO (21:22)
[2024-07-25] MEDS: DIVALPROEX SODIUM DR 250 MG TABEC 500 MG PO (21:22)
[2024-07-25 21:27] LABS: Glucose Point of Care 188 mg/dl (65-105)
[2024-07-25 22:00] VITALS: BP 136/56; PULSE 79; RESP 20; TEMP 36.4; O2SAT 95
[2024-07-26] MEDS: LEVOTHYROXINE SODIUM 75 MCG TABLET PO (05:58)
[2024-07-26] MEDS: GABAPENTIN 100 MG CAPSULE PO ×3 (05:58→20:35)
[2024-07-26 06:00] VITALS: BP 131/59; PULSE 70; RESP 20; TEMP 36.7; O2SAT 96
[2024-07-26 06:56] LABS: Basophils Percent Auto 0.4 % (0.2-1.2); Eosinophils Absolute Auto 0.6 K/mm3 (0-0.3); Eosinophils Percent Auto 6.3 % (0-4.4); Hemoglobin 9.3 g/dL (12.0-15.0); Immature Granulocyte Absolute 0.03 K/mm3 (0.00-0.031); Immature Granulocyte Percent A 0.3 % (0-0.5); Mean Corpuscular Hemoglobin 27.8 pg (26-34); Mean Corpuscular Volume 92.5 fl (80-100); Mean Platelet Volume 9.5 fl (7.4-10.4); Monocytes Absolute Auto 0.8 K/mm3 (0.1-0.6); Monocytes Percent Auto 8.3 % (2.6-8.5); Neutrophils Absolute Auto 6.3 K/mm3 (1.3-6.7); Neutrophils Percent Auto 66.7 % (45.5-73.1); Platelet Count Result 303 k/mm3 (150-375); Red Blood Count 3.35 M/mm3 (4.2-5.4); Red Cell Distribution Width 16.2 % (11.5-14.5); White Blood Count 9.4 K/mm3 (4.5-10.0)
[2024-07-26 07:11] LABS: Anion Gap 6 mmol/L (4-12); Blood Urea Nitrogen 41 mg/dL (7-17); Calcium 8.9 mg/dL (8.4-10.2); Carbon Dioxide 34 mmol/L (22-30); Chloride 99 mmol/L (98-107); Estimated CRCL calculation 21 ml/min; Estimated Glomerular Filt Rate 18; Glucose 135 mg/dL (65-110); Magnesium 2.3 mg/dL (1.6-2.3); Potassium 3.8 mmol/L (3.4-5.0); Sodium 139 mmol/L (137-145)
[2024-07-26 07:43] LABS: Glucose Point of Care 110 mg/dl (65-105)
[2024-07-26] MEDS: carvediloL 6.25 MG TABLET PO (08:27)
[2024-07-26] MEDS: INSULIN ASPART (*BKC) 100 UNITS/ML 12 UNITS SUB-Q ×3 (08:27→16:40)
[2024-07-26] MEDS: VITAMIN B COMPLEX CAPSULE 1 CAP PO (08:27)
[2024-07-26] MEDS: ISOSORBIDE DINITRATE 10 MG TABLET PO ×2 (08:27→20:36)
[2024-07-26] MEDS: APIXABAN 5 MG TABLET PO ×2 (08:28→20:36)
[2024-07-26] MEDS: OPTI-GEN TAB 1 TABLET PO ×2 (08:28→20:35)
[2024-07-26] MEDS: [UNRECOGNIZED DRUG - OTHER] SUB-Q (08:28)
[2024-07-26] MEDS: CALCIUM/VITAMIN D 500 MG/5 MCG (200 I.U.) TABLET PO (08:28)
[2024-07-26] MEDS: EMPAGLIFLOZIN 10 MG TABLET PO (08:28)
[2024-07-26] MEDS: MEMANTINE 10 MG TABLET PO ×2 (08:28→20:36)
[2024-07-26] MEDS: PANTOPRAZOLE 40 MG TABLET PO ×2 (08:28→20:36)
[2024-07-26] MEDS: ASPIRIN 81 MG ENTERIC TABLET PO (08:28)
[2024-07-26] MEDS: busPIRone HCL 5 MG TABLET 15 MG PO (08:28)
[2024-07-26] MEDS: amLODIPine BESYLATE 10 MG TABLET PO (08:28)
[2024-07-26] MEDS: INSULIN GLARGINE SUB-Q (08:28)
[2024-07-26] MEDS: buPROPion HCL XL (24 HR) 150 MG TABCR PO (08:28)
[2024-07-26] MEDS: allopurinoL 100 MG TABLET PO (08:28)
[2024-07-26] MEDS: PRAMIPEXOLE 0.25 MG TABLET PO ×2 (08:28→20:36)
[2024-07-26] MEDS: MUPIROCIN 2% OINT 22 GM TUBE 1 APPLIC TOPICAL ×2 (08:28→20:37)
[2024-07-26] MEDS: TROSPIUM CHLORIDE 20 MG 1 EACH PO ×2 (08:29→20:37)
--- NOTE | 2024-07-26 10:29 | P.PNCA_ITS ---
Progress Note: A&P Assessment and Plan (1) Acute on chronic heart failure with preserved ejection fraction (HFpEF, >= 50%): Code(s): I50.33 - Acute on chronic diastolic (congestive) heart failure Status: Acute (2) Coronary artery disease: Code(s): I25.10 - Atherosclerotic heart disease of [place] coronary artery without angina pectoris Status: Acute (3) Atrial fibrillation: Qualifiers: Atrial fibrillation type: unspecified Qualified Code(s): I48.91 - Unspecified atrial fibrillation Code(s): I48.91 - Unspecified atrial fibrillation Status: Acute Assessment and Plan: - On Apixaban Plan 78-year-old woman with CAD status post multivessel PCI, HFpEF, paroxysmal atrial fibrillation, hypertension, and hyperlipidemia presented with worsening shortness of breath, orthopnea, and lower extremity swelling consistent with acute on chronic diastolic heart failure Acute on chronic diastolic heart failure - Has reached euvolemia - Creatinine still high. Will continue to hold IV bumex -should her creatinine stabilize, she can resume Bumex 2 mg p.o. b.i.d. which is her home dose CAD status post multivessel PCI - On PCSK9, imdur - Not on ASA 81 mg - Discussed wit here regaridng R/B/A, she agreed to initiate ASA 81 mg Paroxysmal atrial fibrillation -continue carvedilol 6.25 mg p.o. b.i.d., amiodarone 200 mg p.o. daily, and Eliquis 5 mg p.o. b.i.d. Hypertension -continue amlodipine 10 mg p.o. daily with goal systolic blood pressure less than 130mmHg -continue Isordil 10 mg b.i.d. and carvedilol 6.25 mg p.o. b.i.d. -should systolic blood pressure be above goal, isosorbide dinitrate can be increased to 20 mg p.o. b.i.d. Hyperlipidemia -continue Repatha as an outpatient Subjective Date/time seen: 07/26/24 10:29 Interval history: No overnight events. Feels okay. Denies any shortness of breath or chest pain. Leg swelling has improved. Undergoing PT/OT Review of Systems Review of Systems: All systems reviewed & are unremarkable except as noted in HPI and below (HPI) Cardiovascular: Cardiovascular: Reports as per HPI and Denies chest pain Respiratory: Respiratory: Reports as per HPI Exam Const: General: comfortable, no acute distress, alert and awake Orientation/consciousness: patient oriented x3 HENMT: Head: normal to inspection Mouth: Yes moist mucous membranes Eyes: General: appearance normal, both eyes and all related structures Sclera: sclerae normal Pupils: Equal, round and reactive pupils present EOM: EOMs intact bilaterally Neck: Neck: normal visual inspection, supple and no JVD Carotids: normal carotid upstroke Resp: Effort & Inspection: normal respiratory effort Auscultation: clear to auscultation bilaterally and rales bilateral Cardio: Rate: regular rate Rhythm: regular rhythm and abnormal rhythm Heart sounds: S1 normal heart sound present, S2 normal heart sound present and no murmurs Other: + Bilateral lower extremity edema GI: Auscultation: normal bowel sounds Skin: General skin exam: normal color and lesion Lesions: lesion noted Other: redness and erythema bilateral lower legs Neuro: General: patient oriented x3 Cranial nerves: Yes Equal, round and reactive pupils present Speech: normal speech Extrem: General: abnormal to inspection, edema and pedal edema Psych: Appearance: grossly normal Mental Status: mental status grossly normal Affect: normal affect Objective Data Vital Signs Vital Signs: Vital Signs - 24 hr 07/25/24 14:00 07/25/24 21:22 07/25/24 22:00 Temperature 36.7 C 36.4 C Pulse Rate 75 76 79 Respiratory Rate 20 20 Blood Pressure 140/56 L 136/56 L Pulse Oximetry 100 95 Oxygen Delivery 07/25/24 20:00 07/25/24 23:36 07/26/24 06:00 Temperature 36.7 C Pulse Rate 70 Respiratory Rate 20 Blood Pressure 131/59 L Pulse Oximetry 96 Oxygen Delivery Room Air CPAP 07/26/24 07:57 Temperature Pulse Rate Respiratory Rate Blood Pressure Pulse Oximetry Oxygen Delivery Room Air Intake/Output Intake/Output: Intake & Output 07/23/24 07/24/24 07/25/24 07/26/24 23:59 23:59 23:59 23:59 Intake Total 6186 850 6266 480 Output Total 1150 1850 1100 700 Balance -130 -1370 377 -220 Meds/Results Medications: Active Medications Generic Name Dose Route Start Last Admin Trade Name Freq PRN Reason Stop Dose Admin Acetaminophen 650 mg 07/22/24 22:48 07/22/24 23:08 Acetaminophen 325 Mg Tablet PO 650 mg Q4H PRN Administration pain 6 or less Allopurinol 100 mg 07/22/24 09:00 07/26/24 08:28 Allopurinol 100 Mg Tablet PO 100 mg DAILY NICOLE Administration Amiodarone HCl 200 mg 07/21/24 21:00 07/25/24 21:22 Amiodarone Hcl 200 Mg Tablet PO 200 mg HS NICOLE Administration Amlodipine Besylate 10 mg 07/21/24 10:55 07/26/24 08:28 Amlodipine Besylate 10 Mg Tablet PO 10 mg DAILY NICOLE Administration Apixaban 5 mg 07/21/24 10:55 07/26/24 08:28 Apixaban 5 Mg Tablet PO 5 mg Q12HR NICOLE Administration Aspirin 81 mg 07/26/24 09:00 07/26/24 08:28 Aspirin 81 Mg Enteric Tablet PO 81 mg QAM NICOLE Administration Bumetanide 2 mg 07/21/24 17:00 07/24/24 08:16 Bumetanide Inj 2.5 Mg/10 Ml Vial IV PUSH 2 mg BID NICOLE Administration Bupropion HCl 150 mg 07/22/24 09:00 07/26/24 08:28 Bupropion Hcl Xl (24 Hr) 150 Mg Tabcr PO 150 mg DAILY NICOLE Administration Buspirone HCl 15 mg 07/22/24 09:00 07/26/24 08:28 Buspirone Hcl 5 Mg Tablet PO 15 mg DAILY NICOLE Administration Calcium Carbonate 500 mg 07/22/24 09:00 07/26/24 08:28 Calcium/Vitamin D 500 Mg/5 Mcg (200 I.U.) Tablet PO 500 mg DAILY NICOLE Administration Carvedilol 6.25 mg 07/22/24 09:00 07/26/24 08:27 Carvedilol 6.25 Mg Tablet PO 6.25 mg DAILY NICOLE Administration Dextrose 12.5 gm 07/21/24 11:05 Dextrose 50% 25 Gm/50 Ml Syringe IV PUSH PRN PRN Hypoglycemia Protocol Divalproex Sodium 500 mg 07/21/24 21:00 07/25/24 21:[address] 250 Mg Tabec PO 500 mg HS NICOLE Administration Empagliflozin 10 mg 07/23/24 09:00 07/26/24 08:28 Empagliflozin 10 Mg Tablet PO 10 mg DAILY NICOLE Administration Famotidine 20 mg 07/21/24 21:00 07/25/24 21:22 Famotidine 20 Mg Tablet PO 20 mg HS NICOLE Administration Gabapentin 100 mg 07/21/24 14:00 07/26/24 05:58 Gabapentin 100 Mg Capsule PO 100 mg Q8HR NICOLE Administration Glucagon 1 mg 07/21/24 11:05 Glucagon For Inj 1 Mg Vial IM PRN PRN Hypoglycemia Protocol Glucose 15 gm 07/21/24 11:05 Glucose Oral Gel 15 Gm Of Glucse In 37.5 Gm Tube PO PRN PRN Hypoglycemia Protocol Hydralazine HCl 10 mg 07/21/24 10:56 Hydralazine Hcl 20 Mg/Ml Vial IV PUSH Q6H PRN Blood Pressure - High Dextrose 1,000 mls @ 100 mls/hr 07/21/24 11:05 Dextrose 5% 1,000 Ml IVPB PRN PRN Hypoglycemia Protocol Insulin Aspart 4 - 8 units 07/21/24 12:00 07/26/24 08:26 Insulin Aspart (*Bkc) 100 Units/Ml SUB-Q Not Given TIDWM [facility] Protocol Insulin Aspart 2 - 4 units 07/21/24 21:00 07/25/24 21:23 Insulin Aspart (*Bkc) 100 Units/Ml SUB-Q Not Given HS [facility] Protocol Insulin Aspart 12 units 07/21/24 17:20 07/26/24 08:27 Insulin Aspart (*Bkc) 100 Units/Ml SUB-Q 12 units ACINSULIN NICOLE Administration Isosorbide Dinitrate 10 mg 07/21/24 10:55 07/26/24 08:27 Isosorbide Dinitrate 10 Mg Tablet PO 10 mg Q12HR NICOLE Administration Levothyroxine Sodium 75 mcg 07/22/24 06:30 07/26/24 05:58 Levothyroxine Sodium 75 Mcg Tablet PO 75 mcg 0630 NICOLE Administration Melatonin 5 mg 07/23/24 00:59 07/23/24 21:51 Melatonin 5 Mg Tablet PO 5 mg HS PRN Administration Sleep Memantine 10 mg 07/21/24 10:55 07/26/24 08:28 Memantine 10 Mg Tablet PO 10 mg Q12HR NICOLE Administration Menthol/Methyl Salicylate 1 applic 07/23/24 15:52 07/24/24 08:21 Menthol 10% / Methyl Salicylate 15% 57 Gm Tube TOPICAL 1 applic BID PRN Administration Muscle/Joint Pain Multivitamins/Minerals 1 tablet 07/21/24 11:15 07/26/24 08:28 Opti-Gen Tab PO 1 tablet Q12HR NICOLE Administration Mupirocin 1 applic 07/21/24 21:00 07/26/24 08:28 Mupirocin 2% Oint 22 Gm Tube TOPICAL 1 applic Q12HR NICOLE Administration Non-Formulary ( 0 each 07/21/24 17:25 07/21/24 17:55 Evolocumab 140 Mg/Ml SUB-Q 08/20/24 17:24 1 each Subcutaneous Pen Q14D@0900 NICOLE Administration Injector) Non-Formulary ( 1 each 07/21/24 21:00 07/26/24 08:29 Trospium Chloride 20 PO 08/20/24 20:59 1 each Mg Oral Tablet) Q12HR NICOLE Administration Non-Formulary ( 0 each 07/22/24 09:00 07/26/24 08:28 Insulin Glargine, SUB-Q 08/21/24 08:59 45 each Human Recombinant DAILY NICOLE Administration Analog 300 Unit/Ml ( 3 Ml) Subcut...) Nystatin 1 applic 07/21/24 10:52 Nystatin Ointment 15 Gm Tube TOPICAL BID PRN Rash Pantoprazole Sodium 40 mg 07/21/24 21:00 07/26/24 08:28 Pantoprazole 40 Mg Tablet PO 40 mg Q12HR NICOLE Administration Pramipexole Dihydrochloride 0.25 mg 07/21/24 21:00 07/26/24 08:28 Pramipexole 0.25 Mg Tablet PO 0.25 mg Q12H NICOLE Administration Vitamin B Complex 1 cap 07/22/24 09:00 07/26/24 08:27 Vitamin B Complex Capsule PO 1 cap DAILY NICOLE Administration Radiology Results: ITS Impressions Chest X-Ray 07/20/24 16:47 IMPRESSION: Moderate right and small left-sided pleural effusions, an interval change from previous examination. No focal infiltrate Labs Labs: Laboratory Results - last 24 hr 07/25/24 07/25/24 07/25/24 11:31 16:20 20:49 WBC RBC Hgb Hct MCV MCH MCHC RDW Plt Count MPV Immature Gran % (Auto) Neut % (Auto) Lymph % (Auto) [place] % (Auto) Eos % (Auto) Baso % (Auto) Lymph # (Auto) [place] # (Auto) Eos # (Auto) Baso # (Auto) Abs Immat Gran (auto) Absolute Neuts (auto) Absolute Nucleated RBC Nucleated RBC % Sodium Potassium Chloride Carbon Dioxide Anion Gap BUN Creatinine Estim Creat Clear Calc Estimated GFR Glucose POC Capillary Glucose 201 H 113 H 188 H Calcium Magnesium 07/26/24 07/26/24 06:41 07:36 WBC 9.4 RBC 3.35 L Hgb 9.3 L Hct 31.0 L MCV 92.5 MCH 27.8 MCHC 30.0 L RDW 16.2 H Plt Count 303 MPV 9.5 Immature Gran % (Auto) 0.3 Neut % (Auto) 66.7 Lymph % (Auto) 18.0 L [place] % (Auto) 8.3 Eos % (Auto) 6.3 H Baso % (Auto) 0.4 Lymph # (Auto) 1.70 [place] # (Auto) 0.8 H Eos # (Auto) 0.6 H Baso # (Auto) 0.0 Abs Immat Gran (auto) 0.03 Absolute Neuts (auto) 6.3 Absolute Nucleated RBC 0.000 Nucleated RBC % 0.0 Sodium 139 Potassium 3.8 Chloride 99 Carbon Dioxide 34 H Anion Gap 6 BUN 41 H Creatinine 2.60 H Estim Creat Clear Calc 21 Estimated GFR 18 L Glucose 135 H POC Capillary Glucose 110 H Calcium 8.9 Magnesium 2.3
[2024-07-26] MEDS: INSULIN ASPART (*BKC) 100 UNITS/ML SUB-Q (11:32)
[2024-07-26 11:33] LABS: Glucose Point of Care 250 mg/dl (65-105)
[2024-07-26 14:00] VITALS: BP 118/48; PULSE 78; RESP 18; TEMP 34.8; O2SAT 99
--- NOTE | 2024-07-26 14:40 | P.PNIM_ITS ---
Progress Note: A&P Assessment and Plan (1) Acute CHF: Qualifiers: Heart failure type: unspecified Qualified Code(s): I50.9 - Heart failure, unspecified Code(s): I50.9 - Heart failure, unspecified Status: Acute (2) Elevated troponin: Code(s): R79.89 - Other specified abnormal findings of blood chemistry Status: Acute (3) Paroxysmal atrial fibrillation: Code(s): I48.0 - Paroxysmal atrial fibrillation Status: Chronic (4) Hypothyroidism: Qualifiers: Hypothyroidism type: acquired Qualified Code(s): E03.9 - Hypothyroidism, unspecified Code(s): E03.9 - Hypothyroidism, unspecified Status: Acute (5) Type 2 diabetes mellitus: Code(s): E11.9 - Type 2 diabetes mellitus without complications Status: Acute (6) Stage 3b chronic kidney disease: Code(s): N18.32 - Chronic kidney disease, stage 3b Status: Chronic Plan # Acute CHF Patient has a exertion dyspnea, previous EKG showed diastolic dysfunction Possible acute on chronic diastolic heart failure Started on Bumex 2 mg IV b.i.d. per Cardiology Follow-up input output Consult production sanitizer for evaluation treatment Hold diuretics due to elevated creatinine which continues to incline but now stable Restart diuretics once start to trend down # Elevated troponin Patient has history of CAD status post stent, Positive troponin, EKG shows sinus rhythm no specific ST T-wave changes Possible demand ischemia due to uncontrolled hypertension Patient is on Eliquis 5 mg b.i.d. p.o. Isordil 10 mg q.12 hours p.o. Rest evaluation and management per production sanitizer Telemetry monitoring, EKG p.r.n. # paroxysmal AFib Patient denies palpitation EKG shows sinus rhythm Continue home medication carvedilol 6.25 mg daily p.o., Eliquis 5 mg b.i.d. p.o. # Hypertension urgency Patient received Lasix in the ED Start amlodipine 10 mg daily p.o., hydrochlorothiazide 25 mg daily p.o., Hydralazine 10 mg q.6 hours p.r.n. with parameters Optimize medication for control of blood pressure and target Hydrochlorothiazide on hold # Chronic anemia No obvious bleeding Follow-up BMP # GERD Continue Protonix 40 mg daily p.o. # CKD stage 3 Avoid nephrotoxic medication Follow-up BMP # Hypothyroidism Continue Synthroid 75 mcg daily p.o. # Type 2 diabetes Continue glargine 25 unit daily, aspart 40 units t.i.d., start insulin sliding scale a.c. and q.h.s. Hypoglycemia protocol as needed # Hypothyroidism continue Synthroid 75 mcg daily p.o. # DVT prophylaxis on apixaban # Code status do not resuscitate # disposition: If creatinine improves in a.m. restart Bumex home doses 2 mg b.i.d. and potential plan to discharge home Advised patient to stay on fluid restriction at home/upon discharge Subjective Date/time seen: 07/26/24 14:40 Interval history: No overnight events no new complaints labs reviewed. Discussed with production sanitizer. Review of Systems Review of Systems: All systems reviewed & are unremarkable except as noted in HPI and below Exam Narrative: GENERAL: Pleasant, in no acute distress. Well-nourished. - EYES: EOMI. Anicteric. - HENT: Moist mucous membranes. - LUNGS: Crackles bilateral base - CARDIOVASCULAR: Regular rate and rhyth m. No murmur. No JVD. - ABDOMEN: Soft, non-tender and non-dist ended. No palpable masses. - EXTREMITIES: Lower extremity edema 1+ Peripheral pulses 2+. Non-tender. - NEUROLOGIC: No focal neurological defi cits. CN II-XII grossly intact. - PSYCHIATRIC: Awake, Alert and oriented x 3. Appropriate mood and affect. - SKIN: No rashes or lesions. Warm. - LYMPH: No cervical lymphadenopathy. Objective Data Vital Signs Vital Signs: Vital Signs - 24 hr 07/25/24 21:22 07/25/24 22:00 07/25/24 20:00 Temperature 97.6 F Pulse Rate 76 79 Respiratory Rate 20 Blood Pressure 136/56 L Pulse Oximetry 95 Oxygen Delivery Room Air 07/25/24 23:36 07/26/24 06:00 07/26/24 07:57 Temperature 98.0 F Pulse Rate 70 Respiratory Rate 20 Blood Pressure 131/59 L Pulse Oximetry 96 Oxygen Delivery CPAP Room Air 07/26/24 14:00 Temperature 94.7 F L Pulse Rate 78 Respiratory Rate 18 Blood Pressure 118/48 L Pulse Oximetry 99 Oxygen Delivery Intake/Output Intake/Output: Intake & Output 07/23/24 07/24/24 07/25/24 07/26/24 23:59 23:59 23:59 23:59 Intake Total 9492 157 1743 720 Output Total 1150 3550 1100 700 Balance -130 -1370 377 20 Meds/Results Medications: Active Medications Generic Name Dose Route Start Last Admin Trade Name Freq PRN Reason Stop Dose Admin Acetaminophen 650 mg 07/22/24 22:48 07/22/24 23:08 Acetaminophen 325 Mg Tablet PO 650 mg Q4H PRN Administration pain 6 or less Allopurinol 100 mg 07/22/24 09:00 07/26/24 08:28 Allopurinol 100 Mg Tablet PO 100 mg DAILY NICOLE Administration Amiodarone HCl 200 mg 07/21/24 21:00 07/25/24 21:22 Amiodarone Hcl 200 Mg Tablet PO 200 mg HS NICOLE Administration Amlodipine Besylate 10 mg 07/21/24 10:55 07/26/24 08:28 Amlodipine Besylate 10 Mg Tablet PO 10 mg DAILY NICOLE Administration Apixaban 5 mg 07/21/24 10:55 07/26/24 08:28 Apixaban 5 Mg Tablet PO 5 mg Q12HR NICOLE Administration Aspirin 81 mg 07/26/24 09:00 07/26/24 08:28 Aspirin 81 Mg Enteric Tablet PO 81 mg QAM NICOLE Administration Bumetanide 2 mg 07/21/24 17:00 07/24/24 08:16 Bumetanide Inj 2.5 Mg/10 Ml Vial IV PUSH 2 mg BID NICOLE Administration Bupropion HCl 150 mg 07/22/24 09:00 07/26/24 08:28 Bupropion Hcl Xl (24 Hr) 150 Mg Tabcr PO 150 mg DAILY NICOLE Administration Buspirone HCl 15 mg 07/22/24 09:00 07/26/24 08:28 Buspirone Hcl 5 Mg Tablet PO 15 mg DAILY NICOLE Administration Calcium Carbonate 500 mg 07/22/24 09:00 07/26/24 08:28 Calcium/Vitamin D 500 Mg/5 Mcg (200 I.U.) Tablet PO 500 mg DAILY NICOLE Administration Carvedilol 6.25 mg 07/22/24 09:00 07/26/24 08:27 Carvedilol 6.25 Mg Tablet PO 6.25 mg DAILY NICOLE Administration Dextrose 12.5 gm 07/21/24 11:05 Dextrose 50% 25 Gm/50 Ml Syringe IV PUSH PRN PRN Hypoglycemia Protocol Divalproex Sodium 500 mg 07/21/24 21:00 07/25/24 21:[address] 250 Mg Tabec PO 500 mg HS NICOLE Administration Empagliflozin 10 mg 07/23/24 09:00 07/26/24 08:28 Empagliflozin 10 Mg Tablet PO 10 mg DAILY NICOLE Administration Famotidine 20 mg 07/21/24 21:00 07/25/24 21:22 Famotidine 20 Mg Tablet PO 20 mg HS NICOLE Administration Gabapentin 100 mg 07/21/24 14:00 07/26/24 13:21 Gabapentin 100 Mg Capsule PO 100 mg Q8HR NICOLE Administration Glucagon 1 mg 07/21/24 11:05 Glucagon For Inj 1 Mg Vial IM PRN PRN Hypoglycemia Protocol Glucose 15 gm 07/21/24 11:05 Glucose Oral Gel 15 Gm Of Glucse In 37.5 Gm Tube PO PRN PRN Hypoglycemia Protocol Hydralazine HCl 10 mg 07/21/24 10:56 Hydralazine Hcl 20 Mg/Ml Vial IV PUSH Q6H PRN Blood Pressure - High Dextrose 1,000 mls @ 100 mls/hr 07/21/24 11:05 Dextrose 5% 1,000 Ml IVPB PRN PRN Hypoglycemia Protocol Insulin Aspart 4 - 8 units 07/21/24 12:00 07/26/24 11:32 Insulin Aspart (*Bkc) 100 Units/Ml SUB-Q 4 units TIDWM NICOLE Administration Protocol Insulin Aspart 2 - 4 units 07/21/24 21:00 07/25/24 21:23 Insulin Aspart (*Bkc) 100 Units/Ml SUB-Q Not Given HS NICOLE Protocol Insulin Aspart 12 units 07/21/24 17:20 07/26/24 11:32 Insulin Aspart (*Bkc) 100 Units/Ml SUB-Q 12 units ACINSULIN NICOLE Administration Isosorbide Dinitrate 10 mg 07/21/24 10:55 07/26/24 08:27 Isosorbide Dinitrate 10 Mg Tablet PO 10 mg Q12HR NICOLE Administration Levothyroxine Sodium 75 mcg 07/22/24 06:30 07/26/24 05:58 Levothyroxine Sodium 75 Mcg Tablet PO 75 mcg 0630 NICOLE Administration Melatonin 5 mg 07/23/24 00:59 07/23/24 21:51 Melatonin 5 Mg Tablet PO 5 mg HS PRN Administration Sleep Memantine 10 mg 07/21/24 10:55 07/26/24 08:28 Memantine 10 Mg Tablet PO 10 mg Q12HR NICOLE Administration Menthol/Methyl Salicylate 1 applic 07/23/24 15:52 07/24/24 08:21 Menthol 10% / Methyl Salicylate 15% 57 Gm Tube TOPICAL 1 applic BID PRN Administration Muscle/Joint Pain Multivitamins/Minerals 1 tablet 07/21/24 11:15 07/26/24 08:28 Opti-Gen Tab PO 1 tablet Q12HR NICOLE Administration Mupirocin 1 applic 07/21/24 21:00 07/26/24 08:28 Mupirocin 2% Oint 22 Gm Tube TOPICAL 1 applic Q12HR NICOLE Administration Non-Formulary ( 0 each 07/21/24 17:25 07/21/24 17:55 Evolocumab 140 Mg/Ml SUB-Q 08/20/24 17:24 1 each Subcutaneous Pen Q14D@0900 NICOLE Administration Injector) Non-Formulary ( 1 each 07/21/24 21:00 07/26/24 08:29 Trospium Chloride 20 PO 08/20/24 20:59 1 each Mg Oral Tablet) Q12HR NICOLE Administration Non-Formulary ( 0 each 07/22/24 09:00 07/26/24 08:28 Insulin Glargine, SUB-Q 08/21/24 08:59 45 each Human Recombinant DAILY NICOLE Administration Analog 300 Unit/Ml ( 3 Ml) Subcut...) Nystatin 1 applic 07/21/24 10:52 Nystatin Ointment 15 Gm Tube TOPICAL BID PRN Rash Pantoprazole Sodium 40 mg 07/21/24 21:00 07/26/24 08:28 Pantoprazole 40 Mg Tablet PO 40 mg Q12HR NICOLE Administration Pramipexole Dihydrochloride 0.25 mg 07/21/24 21:00 07/26/24 08:28 Pramipexole 0.25 Mg Tablet PO 0.25 mg Q12H NICOLE Administration Vitamin B Complex 1 cap 07/22/24 09:00 07/26/24 08:27 Vitamin B Complex Capsule PO 1 cap DAILY NICOLE Administration Radiology Results: ITS Impressions Chest X-Ray 07/20/24 16:47 IMPRESSION: Moderate right and small left-sided pleural effusions, an interval change from previous examination. No focal infiltrate Labs Labs: Laboratory Results - last 24 hr 07/25/24 07/25/24 07/26/24 16:20 20:49 06:41 WBC 9.4 RBC 3.35 L Hgb 9.3 L Hct 31.0 L MCV 92.5 MCH 27.8 MCHC 30.0 L RDW 16.2 H Plt Count 303 MPV 9.5 Immature Gran % (Auto) 0.3 Neut % (Auto) 66.7 Lymph % (Auto) 18.0 L [place] % (Auto) 8.3 Eos % (Auto) 6.3 H Baso % (Auto) 0.4 Lymph # (Auto) 1.70 [place] # (Auto) 0.8 H Eos # (Auto) 0.6 H Baso # (Auto) 0.0 Abs Immat Gran (auto) 0.03 Absolute Neuts (auto) 6.3 Absolute Nucleated RBC 0.000 Nucleated RBC % 0.0 Sodium 139 Potassium 3.8 Chloride 99 Carbon Dioxide 34 H Anion Gap 6 BUN 41 H Creatinine 2.60 H Estim Creat Clear Calc 21 Estimated GFR 18 L Glucose 135 H POC Capillary Glucose 113 H 188 H Calcium 8.9 Magnesium 2.3 07/26/24 07/26/24 07:36 11:30 WBC RBC Hgb Hct MCV MCH MCHC RDW Plt Count MPV Immature Gran % (Auto) Neut % (Auto) Lymph % (Auto) [place] % (Auto) Eos % (Auto) Baso % (Auto) Lymph # (Auto) [place] # (Auto) Eos # (Auto) Baso # (Auto) Abs Immat Gran (auto) Absolute Neuts (auto) Absolute Nucleated RBC Nucleated RBC % Sodium Potassium Chloride Carbon Dioxide Anion Gap BUN Creatinine Estim Creat Clear Calc Estimated GFR Glucose POC Capillary Glucose 110 H 250 H Calcium Magnesium
--- NOTE | 2024-07-26 14:47 | PCOTNOTE ---
Patient declined OT at this time. Patient had recently finished up with PT, I'm so tired , not today, come back tomorrow
[2024-07-26 16:24] LABS: Glucose Point of Care 141 mg/dl (65-105)
[2024-07-26 19:43] LABS: Glucose Point of Care 102 mg/dl (65-105)
[2024-07-26 20:23] VITALS: BP 136/53; PULSE 80; RESP 18; TEMP 36.8; O2SAT 98
[2024-07-26 20:35] VITALS: PULSE 80
[2024-07-26] MEDS: AMIODARONE HCL 200 MG TABLET PO (20:35)
[2024-07-26] MEDS: FAMOTIDINE 20 MG TABLET PO (20:35)
[2024-07-26] MEDS: DIVALPROEX SODIUM DR 250 MG TABEC 500 MG PO (20:36)
[2024-07-27 05:31] VITALS: BP 148/57; PULSE 81; RESP 16; TEMP 36.5; O2SAT 96
[2024-07-27] MEDS: LEVOTHYROXINE SODIUM 75 MCG TABLET PO (06:06)
[2024-07-27] MEDS: GABAPENTIN 100 MG CAPSULE PO ×3 (06:06→21:49)
[2024-07-27 07:00] LABS: Basophils Absolute Auto 0.1 K/mm3 (0.0-0.1); Basophils Percent Auto 0.5 % (0.2-1.2); Eosinophils Absolute Auto 0.7 K/mm3 (0-0.3); Eosinophils Percent Auto 7.5 % (0-4.4); Hematocrit 29.7 % (37.0-47.0); Immature Granulocyte Absolute 0.04 K/mm3 (0.00-0.031); Immature Granulocyte Percent A 0.4 % (0-0.5); Lymphocytes Absolute Auto 1.73 K/mm3 (0.9-3.2); Lymphocytes Percent Auto 17.4 % (18.3-44.2); Mean Corpuscular HGB Conc 30.3 g/dl (32-36); Mean Corpuscular Hemoglobin 27.8 pg (26-34); Mean Corpuscular Volume 91.7 fl (80-100); Mean Platelet Volume 9.2 fl (7.4-10.4); Monocytes Absolute Auto 0.8 K/mm3 (0.1-0.6); Monocytes Percent Auto 7.9 % (2.6-8.5); Neutrophils Absolute Auto 6.6 K/mm3 (1.3-6.7); Neutrophils Percent Auto 66.3 % (45.5-73.1); Platelet Count Result 314 k/mm3 (150-375); Red Blood Count 3.24 M/mm3 (4.2-5.4); Red Cell Distribution Width 16.1 % (11.5-14.5); White Blood Count 9.9 K/mm3 (4.5-10.0)
[2024-07-27 07:12] LABS: Alanine Aminotransferase 11 U/L (6-35); Albumin Level 3.6 g/dL (3.5-5.1); Alkaline Phosphatase 108 U/L (38-126); Anion Gap 5 mmol/L (4-12); Aspartate Amino Transferase 17 U/L (14-36); Bilirubin,Total 0.4 mg/dL (0.2-1.3); Blood Urea Nitrogen 42 mg/dL (7-17); Calcium 8.9 mg/dL (8.4-10.2); Carbon Dioxide 34 mmol/L (22-30); Chloride 99 mmol/L (98-107); Estimated CRCL calculation 19 ml/min; Estimated Glomerular Filt Rate 16; Glucose 129 mg/dL (65-110); Magnesium 2.4 mg/dL (1.6-2.3); Potassium 3.7 mmol/L (3.4-5.0); Sodium 138 mmol/L (137-145)
[2024-07-27 07:49] LABS: Glucose Point of Care 142 mg/dl (65-105)
[2024-07-27] MEDS: INSULIN ASPART (*BKC) 100 UNITS/ML 12 UNITS SUB-Q ×3 (07:54→16:52)
[2024-07-27 07:55] VITALS: BP 140/54; PULSE 77; O2SAT 97
[2024-07-27] MEDS: PRAMIPEXOLE 0.25 MG TABLET PO ×2 (08:01→20:30)
[2024-07-27] MEDS: OPTI-GEN TAB 1 TABLET PO ×2 (08:01→20:28)
[2024-07-27] MEDS: busPIRone HCL 5 MG TABLET 15 MG PO (08:01)
[2024-07-27] MEDS: buPROPion HCL XL (24 HR) 150 MG TABCR PO (08:03)
[2024-07-27] MEDS: EMPAGLIFLOZIN 10 MG TABLET PO (08:03)
[2024-07-27] MEDS: PANTOPRAZOLE 40 MG TABLET PO ×2 (08:03→20:29)
[2024-07-27] MEDS: CALCIUM/VITAMIN D 500 MG/5 MCG (200 I.U.) TABLET PO (08:03)
[2024-07-27] MEDS: APIXABAN 5 MG TABLET PO ×2 (08:03→20:28)
[2024-07-27] MEDS: allopurinoL 100 MG TABLET PO (08:03)
[2024-07-27] MEDS: VITAMIN B COMPLEX CAPSULE 1 CAP PO (08:03)
[2024-07-27] MEDS: ASPIRIN 81 MG ENTERIC TABLET PO (08:03)
[2024-07-27] MEDS: MEMANTINE 10 MG TABLET PO ×2 (08:03→20:28)
[2024-07-27 08:14] VITALS: PULSE 77
[2024-07-27] MEDS: ISOSORBIDE DINITRATE 10 MG TABLET PO ×2 (08:14→20:29)
[2024-07-27] MEDS: carvediloL 6.25 MG TABLET PO (08:14)
[2024-07-27] MEDS: MUPIROCIN 2% OINT 22 GM TUBE 1 APPLIC TOPICAL ×2 (08:14→20:33)
[2024-07-27] MEDS: amLODIPine BESYLATE 10 MG TABLET PO (08:14)
[2024-07-27] MEDS: [UNRECOGNIZED DRUG - OTHER] SUB-Q (08:15)
[2024-07-27] MEDS: TROSPIUM CHLORIDE 20 MG 1 EACH PO ×2 (08:15→20:33)
[2024-07-27] MEDS: INSULIN GLARGINE SUB-Q (08:15)
--- NOTE | 2024-07-27 10:04 | P.PNCA_ITS ---
Progress Note: A&P Assessment and Plan (1) Acute on chronic heart failure with preserved ejection fraction (HFpEF, >= 50%): Code(s): I50.33 - Acute on chronic diastolic (congestive) heart failure Status: Acute (2) Coronary artery disease: Code(s): I25.10 - Atherosclerotic heart disease of [place] coronary artery without angina pectoris Status: Acute (3) Atrial fibrillation: Qualifiers: Atrial fibrillation type: unspecified Qualified Code(s): I48.91 - Unspecified atrial fibrillation Code(s): I48.91 - Unspecified atrial fibrillation Status: Acute Assessment and Plan: - On Apixaban Plan 78-year-old woman with CAD status post multivessel PCI, HFpEF, paroxysmal atrial fibrillation, hypertension, and hyperlipidemia presented with worsening shortness of breath, orthopnea, and lower extremity swelling consistent with acute on chronic diastolic heart failure 1. Acute on chronic diastolic heart failure - Has reached euvolemia - Creatinine went up. Will continue to hold IV bumex - Consider Nephro evaluation 2. CAD status post multivessel PCI - On PCSK9, imdur - Not on ASA 81 mg - Discussed wit here regaridng R/B/A, she agreed to initiate ASA 81 mg 3. Paroxysmal atrial fibrillation -continue carvedilol 6.25 mg p.o. b.i.d., amiodarone 200 mg p.o. daily, and Eliquis 5 mg p.o. b.i.d. 4. Hypertension -continue amlodipine 10 mg p.o. daily with goal systolic blood pressure less than 130mmHg -continue Isordil 10 mg b.i.d. and carvedilol 6.25 mg p.o. b.i.d. -should systolic blood pressure be above goal, isosorbide dinitrate can be increased to 20 mg p.o. b.i.d. 5. Hyperlipidemia -continue Repatha as an outpatient Subjective Date/time seen: 07/27/24 10:04 Interval history: Feels better Undergoing PT/OT Creatinine went up today despite holding diuretics since Thursday, Cr 2.9 today, was 2.6 yesterday Review of Systems Review of Systems: All systems reviewed & are unremarkable except as noted in HPI and below (HPI) Cardiovascular: Cardiovascular: Reports as per HPI and Denies chest pain Respiratory: Respiratory: Reports as per HPI Exam Const: General: comfortable, no acute distress, alert and awake Orientation/consciousness: patient oriented x3 HENMT: Head: normal to inspection Mouth: Yes moist mucous membranes Eyes: General: appearance normal, both eyes and all related structures Sclera: sclerae normal Pupils: Equal, round and reactive pupils present EOM: EOMs intact bilaterally Neck: Neck: normal visual inspection, supple and no JVD Carotids: normal carotid upstroke Resp: Effort & Inspection: normal respiratory effort Auscultation: clear to auscultation bilaterally and rales bilateral Cardio: Rate: regular rate Rhythm: regular rhythm and abnormal rhythm Heart sounds: S1 normal heart sound present, S2 normal heart sound present and no murmurs Other: + Bilateral lower extremity edema GI: Auscultation: normal bowel sounds Skin: General skin exam: normal color and lesion Lesions: lesion noted Other: redness and erythema bilateral lower legs Neuro: General: patient oriented x3 Cranial nerves: Yes Equal, round and reactive pupils present Speech: normal speech Extrem: General: abnormal to inspection, edema and pedal edema Psych: Appearance: grossly normal Mental Status: mental status grossly normal Affect: normal affect Objective Data Vital Signs Vital Signs: Vital Signs - 24 hr 07/26/24 14:00 07/26/24 20:23 07/26/24 20:35 Temperature 34.8 C L 36.8 C Pulse Rate 78 80 80 Respiratory Rate 18 18 Blood Pressure 118/48 L 136/53 L Pulse Oximetry 99 98 Oxygen Delivery 07/26/24 20:00 07/27/24 05:31 07/27/24 08:14 Temperature 36.5 C Pulse Rate 81 77 Respiratory Rate 16 Blood Pressure 148/57 H Pulse Oximetry 96 Oxygen Delivery Room Air 07/27/24 07:55 Temperature Pulse Rate Respiratory Rate Blood Pressure Pulse Oximetry Oxygen Delivery Room Air Intake/Output Intake/Output: Intake & Output 07/24/24 07/25/24 07/26/24 07/27/24 23:59 23:59 23:59 23:59 Intake Total 480 1477 1617 Output Total 1850 1100 950 325 Balance -1370 377 667 -325 Meds/Results Medications: Active Medications Generic Name Dose Route Start Last Admin Trade Name Freq PRN Reason Stop Dose Admin Acetaminophen 650 mg 07/22/24 22:48 07/22/24 23:08 Acetaminophen 325 Mg Tablet PO 650 mg Q4H PRN Administration pain 6 or less Allopurinol 100 mg 07/22/24 09:00 07/27/24 08:03 Allopurinol 100 Mg Tablet PO 100 mg DAILY NICOLE Administration Amiodarone HCl 200 mg 07/21/24 21:00 07/26/24 20:35 Amiodarone Hcl 200 Mg Tablet PO 200 mg HS NICOLE Administration Amlodipine Besylate 10 mg 07/21/24 10:55 07/27/24 08:14 Amlodipine Besylate 10 Mg Tablet PO 10 mg DAILY NICOLE Administration Apixaban 5 mg 07/21/24 10:55 07/27/24 08:03 Apixaban 5 Mg Tablet PO 5 mg Q12HR NICOLE Administration Aspirin 81 mg 07/26/24 09:00 07/27/24 08:03 Aspirin 81 Mg Enteric Tablet PO 81 mg QAM NICOLE Administration Bumetanide 2 mg 07/21/24 17:00 07/24/24 08:16 Bumetanide Inj 2.5 Mg/10 Ml Vial IV PUSH 2 mg BID NICOLE Administration Bupropion HCl 150 mg 07/22/24 09:00 07/27/24 08:03 Bupropion Hcl Xl (24 Hr) 150 Mg Tabcr PO 150 mg DAILY NICOLE Administration Buspirone HCl 15 mg 07/22/24 09:00 07/27/24 08:01 Buspirone Hcl 5 Mg Tablet PO 15 mg DAILY NICOLE Administration Calcium Carbonate 500 mg 07/22/24 09:00 07/27/24 08:03 Calcium/Vitamin D 500 Mg/5 Mcg (200 I.U.) Tablet PO 500 mg DAILY NICOLE Administration Carvedilol 6.25 mg 07/22/24 09:00 07/27/24 08:14 Carvedilol 6.25 Mg Tablet PO 6.25 mg DAILY NICOLE Administration Dextrose 12.5 gm 07/21/24 11:05 Dextrose 50% 25 Gm/50 Ml Syringe IV PUSH PRN PRN Hypoglycemia Protocol Divalproex Sodium 500 mg 07/21/24 21:00 07/26/24 20:[address] 250 Mg Tabec PO 500 mg HS NICOLE Administration Empagliflozin 10 mg 07/23/24 09:00 07/27/24 08:03 Empagliflozin 10 Mg Tablet PO 10 mg DAILY NICOLE Administration Famotidine 20 mg 07/21/24 21:00 07/26/24 20:35 Famotidine 20 Mg Tablet PO 20 mg HS NICOLE Administration Gabapentin 100 mg 07/21/24 14:00 07/27/24 06:06 Gabapentin 100 Mg Capsule PO 100 mg Q8HR NICOLE Administration Glucagon 1 mg 07/21/24 11:05 Glucagon For Inj 1 Mg Vial IM PRN PRN Hypoglycemia Protocol Glucose 15 gm 07/21/24 11:05 Glucose Oral Gel 15 Gm Of Glucse In 37.5 Gm Tube PO PRN PRN Hypoglycemia Protocol Hydralazine HCl 10 mg 07/21/24 10:56 Hydralazine Hcl 20 Mg/Ml Vial IV PUSH Q6H PRN Blood Pressure - High Dextrose 1,000 mls @ 100 mls/hr 07/21/24 11:05 Dextrose 5% 1,000 Ml IVPB PRN PRN Hypoglycemia Protocol Insulin Aspart 4 - 8 units 07/21/24 12:00 07/27/24 07:46 Insulin Aspart (*Bkc) 100 Units/Ml SUB-Q Not Given TIDWM [facility] Protocol Insulin Aspart 2 - 4 units 07/21/24 21:00 07/26/24 20:37 Insulin Aspart (*Bkc) 100 Units/Ml SUB-Q Not Given HS NICOLE Protocol Insulin Aspart 12 units 07/21/24 17:20 07/27/24 07:54 Insulin Aspart (*Bkc) 100 Units/Ml SUB-Q 12 units ACINSULIN NICOLE Administration Isosorbide Dinitrate 10 mg 07/21/24 10:55 07/27/24 08:14 Isosorbide Dinitrate 10 Mg Tablet PO 10 mg Q12HR NICOLE Administration Levothyroxine Sodium 75 mcg 07/22/24 06:30 07/27/24 06:06 Levothyroxine Sodium 75 Mcg Tablet PO 75 mcg 0630 NICOLE Administration Melatonin 5 mg 07/23/24 00:59 07/23/24 21:51 Melatonin 5 Mg Tablet PO 5 mg HS PRN Administration Sleep Memantine 10 mg 07/21/24 10:55 07/27/24 08:03 Memantine 10 Mg Tablet PO 10 mg Q12HR NICOLE Administration Menthol/Methyl Salicylate 1 applic 07/23/24 15:52 07/24/24 08:21 Menthol 10% / Methyl Salicylate 15% 57 Gm Tube TOPICAL 1 applic BID PRN Administration Muscle/Joint Pain Multivitamins/Minerals 1 tablet 07/21/24 11:15 07/27/24 08:01 Opti-Gen Tab PO 1 tablet Q12HR NICOLE Administration Mupirocin 1 applic 07/21/24 21:00 07/27/24 08:14 Mupirocin 2% Oint 22 Gm Tube TOPICAL 1 applic Q12HR NICOLE Administration Non-Formulary ( 0 each 07/21/24 17:25 07/21/24 17:55 Evolocumab 140 Mg/Ml SUB-Q 08/20/24 17:24 1 each Subcutaneous Pen Q14D@0900 NICOLE Administration Injector) Non-Formulary ( 1 each 07/21/24 21:00 07/27/24 08:15 Trospium Chloride 20 PO 08/20/24 20:59 1 each Mg Oral Tablet) Q12HR NICOLE Administration Non-Formulary ( 0 each 07/22/24 09:00 07/27/24 08:15 Insulin Glargine, SUB-Q 08/21/24 08:59 45 each Human Recombinant DAILY NICOLE Administration Analog 300 Unit/Ml ( 3 Ml) Subcut...) Nystatin 1 applic 07/21/24 10:52 Nystatin Ointment 15 Gm Tube TOPICAL BID PRN Rash Pantoprazole Sodium 40 mg 07/21/24 21:00 07/27/24 08:03 Pantoprazole 40 Mg Tablet PO 40 mg Q12HR NICOLE Administration Pramipexole Dihydrochloride 0.25 mg 07/21/24 21:00 07/27/24 08:01 Pramipexole 0.25 Mg Tablet PO 0.25 mg Q12H NICOLE Administration Vitamin B Complex 1 cap 07/22/24 09:00 07/27/24 08:03 Vitamin B Complex Capsule PO 1 cap DAILY NICOLE Administration Radiology Results: ITS Impressions Chest X-Ray 07/20/24 16:47 IMPRESSION: Moderate right and small left-sided pleural effusions, an interval change from previous examination. No focal infiltrate Labs Labs: Laboratory Results - last 24 hr 07/26/24 07/26/24 07/26/24 11:30 16:20 19:40 WBC RBC Hgb Hct MCV MCH MCHC RDW Plt Count MPV Immature Gran % (Auto) Neut % (Auto) Lymph % (Auto) [place] % (Auto) Eos % (Auto) Baso % (Auto) Lymph # (Auto) [place] # (Auto) Eos # (Auto) Baso # (Auto) Abs Immat Gran (auto) Absolute Neuts (auto) Absolute Nucleated RBC Nucleated RBC % Sodium Potassium Chloride Carbon Dioxide Anion Gap BUN Creatinine Estim Creat Clear Calc Estimated GFR Glucose POC Capillary Glucose 250 H 141 H 102 Calcium Magnesium Total Bilirubin AST ALT Alkaline Phosphatase Total Protein Albumin 07/27/24 07/27/24 06:48 07:45 WBC 9.9 RBC 3.24 L Hgb 9.0 L Hct 29.7 L MCV 91.7 MCH 27.8 MCHC 30.3 L RDW 16.1 H Plt Count 314 MPV 9.2 Immature Gran % (Auto) 0.4 Neut % (Auto) 66.3 Lymph % (Auto) 17.4 L [place] % (Auto) 7.9 Eos % (Auto) 7.5 H Baso % (Auto) 0.5 Lymph # (Auto) 1.73 [place] # (Auto) 0.8 H Eos # (Auto) 0.7 H Baso # (Auto) 0.1 Abs Immat Gran (auto) 0.04 H Absolute Neuts (auto) 6.6 Absolute Nucleated RBC 0.000 Nucleated RBC % 0.0 Sodium 138 Potassium 3.7 Chloride 99 Carbon Dioxide 34 H Anion Gap 5 BUN 42 H Creatinine 2.90 H Estim Creat Clear Calc 19 Estimated GFR 16 L Glucose 129 H POC Capillary Glucose 142 H Calcium 8.9 Magnesium 2.4 H Total Bilirubin 0.4 AST 17 ALT 11 Alkaline Phosphatase 108 Total Protein 7.0 Albumin 3.6
[2024-07-27 12:09] LABS: Glucose Point of Care 151 mg/dl (65-105)
[2024-07-27 16:47] LABS: Glucose Point of Care 139 mg/dl (65-105)
--- NOTE | 2024-07-27 18:39 | WPDPN ---
Progress Note: A&P Assessment and Plan (1) Acute CHF: Qualifiers: Heart failure type: unspecified Qualified Code(s): I50.9 - Heart failure, unspecified Code(s): I50.9 - Heart failure, unspecified Status: Acute (2) Elevated troponin: Code(s): R79.89 - Other specified abnormal findings of blood chemistry Status: Acute (3) Paroxysmal atrial fibrillation: Code(s): I48.0 - Paroxysmal atrial fibrillation Status: Chronic (4) Hypothyroidism: Qualifiers: Hypothyroidism type: acquired Qualified Code(s): E03.9 - Hypothyroidism, unspecified Code(s): E03.9 - Hypothyroidism, unspecified Status: Acute (5) Type 2 diabetes mellitus: Code(s): E11.9 - Type 2 diabetes mellitus without complications Status: Acute (6) Stage 3b chronic kidney disease: Code(s): N18.32 - Chronic kidney disease, stage 3b Status: Chronic Plan # Acute CHF Patient has a exertion dyspnea, previous EKG showed diastolic dysfunction Possible acute on chronic diastolic heart failure Started on Bumex 2 mg IV b.i.d. per Cardiology Follow-up input output Consult principal clerk for evaluation treatment Hold diuretics due to elevated creatinine which continues to incline but now stable Restart diuretics once start to trend down # Elevated troponin Patient has history of CAD status post stent, Positive troponin, EKG shows sinus rhythm no specific ST T-wave changes Possible demand ischemia due to uncontrolled hypertension Patient is on Eliquis 5 mg b.i.d. p.o. Isordil 10 mg q.12 hours p.o. Rest evaluation and management per principal clerk Telemetry monitoring, EKG p.r.n. # paroxysmal AFib Patient denies palpitation EKG shows sinus rhythm Continue home medication carvedilol 6.25 mg daily p.o., Eliquis 5 mg b.i.d. p.o. # Hypertension urgency Patient received Lasix in the ED Start amlodipine 10 mg daily p.o., hydrochlorothiazide 25 mg daily p.o., Hydralazine 10 mg q.6 hours p.r.n. with parameters Optimize medication for control of blood pressure and target Hydrochlorothiazide on hold # Chronic anemia No obvious bleeding Follow-up BMP # GERD Continue Protonix 40 mg daily p.o. # CKD stage 3 Avoid nephrotoxic medication Follow-up BMP Creatinine went up today despite holding diuretics since Thursday, Cr 3.2 today compared 1.7 upon arrival, principal clerk is recommending nephrology consult, will have asked Dr. Lim to evaluate the patient and further recommendation to follow, has been positive 1200 mL since past 2 days overall patient stats she is feeling better denies any CP or SOB # Hypothyroidism Continue Synthroid 75 mcg daily p.o. # Type 2 diabetes Continue glargine 25 unit daily, aspart 40 units t.i.d., start insulin sliding scale a.c. and q.h.s. Hypoglycemia protocol as needed # Hypothyroidism continue Synthroid 75 mcg daily p.o. # DVT prophylaxis on apixaban # Code status do not resuscitate # disposition: If creatinine improves in a.m. restart Bumex home doses 2 mg b.i.d. and potential plan to discharge home Advised patient to stay on fluid restriction at home/upon discharge Subjective Date/time seen: 07/27/24 18:39 Interval history: Feels better Undergoing PT/OT Creatinine went up today despite holding diuretics since Thursday, Cr 3.2 today compared 1.7 upon arrival, principal clerk is recommending nephrology consult, will have asked Dr. Lim to evaluate the patient and further recommendation to follow, has been positive 1200 mL since past 2 days overall patient stats she is feeling better denies any CP or SOB Review of Systems Review of Systems: ROS negative except above All systems reviewed & are unremarkable except as noted in HPI and below Exam Narrative: Patient is comfortable, NAD HEENT: eyes are clear and none icteric LUNGS:CTA HEART: RR S1S2 ABD: BS+, Soft and nontender Lower extremities: no edema SKIN: nonjaundiced Neuro: grossly intact. Objective Data Vital Signs Vital Signs: Vital Signs - 24 hr 07/26/24 20:23 07/26/24 20:35 07/26/24 20:00 Temperature 36.8 C Pulse Rate 80 80 Respiratory Rate 18 Blood Pressure 136/53 L Pulse Oximetry 98 Oxygen Delivery Room Air 07/27/24 05:31 07/27/24 08:14 07/27/24 07:55 Temperature 36.5 C Pulse Rate 81 77 Respiratory Rate 16 Blood Pressure 148/57 H Pulse Oximetry 96 Oxygen Delivery Room Air 07/27/24 07:55 Temperature Pulse Rate 77 Respiratory Rate Blood Pressure 140/54 L Pulse Oximetry 97 Oxygen Delivery Intake/Output Intake/Output: Intake & Output 07/24/24 07/25/24 07/26/24 07/27/24 23:59 23:59 23:59 23:59 Intake Total 480 1477 1617 860 Output Total 1850 1100 950 325 Balance -1370 377 667 535 Meds/Results Medications: Active Medications Generic Name Dose Route Start Last Admin Trade Name Freq PRN Reason Stop Dose Admin Acetaminophen 650 mg 07/22/24 22:48 07/22/24 23:08 Acetaminophen 325 Mg Tablet PO 650 mg Q4H PRN Administration pain 6 or less Allopurinol 100 mg 07/22/24 09:00 07/27/24 08:03 Allopurinol 100 Mg Tablet PO 100 mg DAILY NICOLE Administration Amiodarone HCl 200 mg 07/21/24 21:00 07/26/24 20:35 Amiodarone Hcl 200 Mg Tablet PO 200 mg HS NICOLE Administration Amlodipine Besylate 10 mg 07/21/24 10:55 07/27/24 08:14 Amlodipine Besylate 10 Mg Tablet PO 10 mg DAILY NICOLE Administration Apixaban 5 mg 07/21/24 10:55 07/27/24 08:03 Apixaban 5 Mg Tablet PO 5 mg Q12HR NICOLE Administration Aspirin 81 mg 07/26/24 09:00 07/27/24 08:03 Aspirin 81 Mg Enteric Tablet PO 81 mg QAM NICOLE Administration Bumetanide 2 mg 07/21/24 17:00 07/24/24 08:16 Bumetanide Inj 2.5 Mg/10 Ml Vial IV PUSH 2 mg BID NICOLE Administration Bupropion HCl 150 mg 07/22/24 09:00 07/27/24 08:03 Bupropion Hcl Xl (24 Hr) 150 Mg Tabcr PO 150 mg DAILY NICOLE Administration Buspirone HCl 15 mg 07/22/24 09:00 07/27/24 08:01 Buspirone Hcl 5 Mg Tablet PO 15 mg DAILY NICOLE Administration Calcium Carbonate 500 mg 07/22/24 09:00 07/27/24 08:03 Calcium/Vitamin D 500 Mg/5 Mcg (200 I.U.) Tablet PO 500 mg DAILY NICOLE Administration Carvedilol 6.25 mg 07/22/24 09:00 07/27/24 08:14 Carvedilol 6.25 Mg Tablet PO 6.25 mg DAILY NICOLE Administration Dextrose 12.5 gm 07/21/24 11:05 Dextrose 50% 25 Gm/50 Ml Syringe IV PUSH PRN PRN Hypoglycemia Protocol Divalproex Sodium 500 mg 07/21/24 21:00 07/26/24 20:[address] 250 Mg Tabec PO 500 mg HS NICOLE Administration Empagliflozin 10 mg 07/23/24 09:00 07/27/24 08:03 Empagliflozin 10 Mg Tablet PO 10 mg DAILY NICOLE Administration Famotidine 20 mg 07/21/24 21:00 07/26/24 20:35 Famotidine 20 Mg Tablet PO 20 mg HS NICOLE Administration Gabapentin 100 mg 07/21/24 14:00 07/27/24 13:03 Gabapentin 100 Mg Capsule PO 100 mg Q8HR NICOLE Administration Glucagon 1 mg 07/21/24 11:05 Glucagon For Inj 1 Mg Vial IM PRN PRN Hypoglycemia Protocol Glucose 15 gm 07/21/24 11:05 Glucose Oral Gel 15 Gm Of Glucse In 37.5 Gm Tube PO PRN PRN Hypoglycemia Protocol Hydralazine HCl 10 mg 07/21/24 10:56 Hydralazine Hcl 20 Mg/Ml Vial IV PUSH Q6H PRN Blood Pressure - High Dextrose 1,000 mls @ 100 mls/hr 07/21/24 11:05 Dextrose 5% 1,000 Ml IVPB PRN PRN Hypoglycemia Protocol Insulin Aspart 4 - 8 units 07/21/24 12:00 07/27/24 16:55 Insulin Aspart (*Bkc) 100 Units/Ml SUB-Q Not Given TIDWM NICOLE Protocol Insulin Aspart 2 - 4 units 07/21/24 21:00 07/26/24 20:37 Insulin Aspart (*Bkc) 100 Units/Ml SUB-Q Not Given HS NICOLE Protocol Insulin Aspart 12 units 07/21/24 17:20 07/27/24 16:52 Insulin Aspart (*Bkc) 100 Units/Ml SUB-Q 12 units ACINSULIN NICOLE Administration Isosorbide Dinitrate 10 mg 07/21/24 10:55 07/27/24 08:14 Isosorbide Dinitrate 10 Mg Tablet PO 10 mg Q12HR NICOLE Administration Levothyroxine Sodium 75 mcg 07/22/24 06:30 07/27/24 06:06 Levothyroxine Sodium 75 Mcg Tablet PO 75 mcg 0630 NICOLE Administration Melatonin 5 mg 07/23/24 00:59 07/23/24 21:51 Melatonin 5 Mg Tablet PO 5 mg HS PRN Administration Sleep Memantine 10 mg 07/21/24 10:55 07/27/24 08:03 Memantine 10 Mg Tablet PO 10 mg Q12HR NICOLE Administration Menthol/Methyl Salicylate 1 applic 07/23/24 15:52 07/24/24 08:21 Menthol 10% / Methyl Salicylate 15% 57 Gm Tube TOPICAL 1 applic BID PRN Administration Muscle/Joint Pain Multivitamins/Minerals 1 tablet 07/21/24 11:15 07/27/24 08:01 Opti-Gen Tab PO 1 tablet Q12HR NICOLE Administration Mupirocin 1 applic 07/21/24 21:00 07/27/24 08:14 Mupirocin 2% Oint 22 Gm Tube TOPICAL 1 applic Q12HR NICOLE Administration Non-Formulary ( 0 each 07/21/24 17:25 07/21/24 17:55 Evolocumab 140 Mg/Ml SUB-Q 08/20/24 17:24 1 each Subcutaneous Pen Q14D@0900 NICOLE Administration Injector) Non-Formulary ( 1 each 07/21/24 21:00 07/27/24 08:15 Trospium Chloride 20 PO 08/20/24 20:59 1 each Mg Oral Tablet) Q12HR NICOLE Administration Non-Formulary ( 0 each 07/22/24 09:00 07/27/24 08:15 Insulin Glargine, SUB-Q 08/21/24 08:59 45 each Human Recombinant DAILY NICOLE Administration Analog 300 Unit/Ml ( 3 Ml) Subcut...) Nystatin 1 applic 07/21/24 10:52 Nystatin Ointment 15 Gm Tube TOPICAL BID PRN Rash Pantoprazole Sodium 40 mg 07/21/24 21:00 07/27/24 08:03 Pantoprazole 40 Mg Tablet PO 40 mg Q12HR NICOLE Administration Pramipexole Dihydrochloride 0.25 mg 07/21/24 21:00 07/27/24 08:01 Pramipexole 0.25 Mg Tablet PO 0.25 mg Q12H NICOLE Administration Vitamin B Complex 1 cap 07/22/24 09:00 07/27/24 08:03 Vitamin B Complex Capsule PO 1 cap DAILY NICOLE Administration Radiology Results: ITS Impressions Chest X-Ray 07/20/24 16:47 IMPRESSION: Moderate right and small left-sided pleural effusions, an interval change from previous examination. No focal infiltrate Labs Labs: Laboratory Results - last 24 hr 07/26/24 07/27/24 07/27/24 19:40 06:48 07:45 WBC 9.9 RBC 3.24 L Hgb 9.0 L Hct 29.7 L MCV 91.7 MCH 27.8 MCHC 30.3 L RDW 16.1 H Plt Count 314 MPV 9.2 Immature Gran % (Auto) 0.4 Neut % (Auto) 66.3 Lymph % (Auto) 17.4 L [place] % (Auto) 7.9 Eos % (Auto) 7.5 H Baso % (Auto) 0.5 Lymph # (Auto) 1.73 [place] # (Auto) 0.8 H Eos # (Auto) 0.7 H Baso # (Auto) 0.1 Abs Immat Gran (auto) 0.04 H Absolute Neuts (auto) 6.6 Absolute Nucleated RBC 0.000 Nucleated RBC % 0.0 Sodium 138 Potassium 3.7 Chloride 99 Carbon Dioxide 34 H Anion Gap 5 BUN 42 H Creatinine 2.90 H Estim Creat Clear Calc 19 Estimated GFR 16 L Glucose 129 H POC Capillary Glucose 102 142 H Calcium 8.9 Magnesium 2.4 H Total Bilirubin 0.4 AST 17 ALT 11 Alkaline Phosphatase 108 Total Protein 7.0 Albumin 3.6 07/27/24 07/27/24 12:03 16:44 WBC RBC Hgb Hct MCV MCH MCHC RDW Plt Count MPV Immature Gran % (Auto) Neut % (Auto) Lymph % (Auto) [place] % (Auto) Eos % (Auto) Baso % (Auto) Lymph # (Auto) [place] # (Auto) Eos # (Auto) Baso # (Auto) Abs Immat Gran (auto) Absolute Neuts (auto) Absolute Nucleated RBC Nucleated RBC % Sodium Potassium Chloride Carbon Dioxide Anion Gap BUN Creatinine Estim Creat Clear Calc Estimated GFR Glucose POC Capillary Glucose 151 H 139 H Calcium Magnesium Total Bilirubin AST ALT Alkaline Phosphatase Total Protein Albumin
[2024-07-27 20:04] LABS: Glucose Point of Care 104 mg/dl (65-105)
[2024-07-27 20:13] VITALS: BP 126/67; PULSE 73; RESP 18; TEMP 36.8; O2SAT 96
[2024-07-27] MEDS: FAMOTIDINE 20 MG TABLET PO (20:27)
[2024-07-27 20:29] VITALS: PULSE 78
[2024-07-27] MEDS: AMIODARONE HCL 200 MG TABLET PO (20:29)
[2024-07-27] MEDS: DIVALPROEX SODIUM DR 250 MG TABEC 500 MG PO (20:29)
[2024-07-27] MEDS: ACETAMINOPHEN 325 MG TABLET 650 MG PO (20:31)
[2024-07-27 21:57] LABS: Glucose Point of Care 135 mg/dl (65-105)
[2024-07-28] VITALS (7 sets, daily range): BP systolic 120–140; BP diastolic 44–65; PULSE 66–77; RESP 16–20; TEMP 36.5–36.8; O2SAT 95–100
[2024-07-28] MEDS: GABAPENTIN 100 MG CAPSULE PO ×3 (05:36→20:39)
[2024-07-28] MEDS: LEVOTHYROXINE SODIUM 75 MCG TABLET PO (05:36)
[2024-07-28 06:46] LABS: Glucose Point of Care 186 mg/dl (65-105)
[2024-07-28 07:50] LABS: Basophils Absolute Auto 0.1 K/mm3 (0.0-0.1); Basophils Percent Auto 0.7 % (0.2-1.2); Eosinophils Absolute Auto 0.8 K/mm3 (0-0.3); Eosinophils Percent Auto 8.7 % (0-4.4); Hematocrit 28.7 % (37.0-47.0); Hemoglobin 8.7 g/dL (12.0-15.0); Immature Granulocyte Absolute 0.03 K/mm3 (0.00-0.031); Immature Granulocyte Percent A 0.3 % (0-0.5); Lymphocytes Absolute Auto 1.58 K/mm3 (0.9-3.2); Lymphocytes Percent Auto 17.8 % (18.3-44.2); Mean Corpuscular HGB Conc 30.3 g/dl (32-36); Mean Corpuscular Hemoglobin 28.1 pg (26-34); Mean Corpuscular Volume 92.6 fl (80-100); Mean Platelet Volume 9.4 fl (7.4-10.4); Monocytes Absolute Auto 0.7 K/mm3 (0.1-0.6); Monocytes Percent Auto 7.7 % (2.6-8.5); Neutrophils Absolute Auto 5.8 K/mm3 (1.3-6.7); Neutrophils Percent Auto 64.8 % (45.5-73.1); Platelet Count Result 306 k/mm3 (150-375); Red Cell Distribution Width 16.3 % (11.5-14.5); White Blood Count 8.9 K/mm3 (4.5-10.0)
[2024-07-28 07:56] LABS: Glucose Point of Care 228 mg/dl (65-105)
[2024-07-28] MEDS: INSULIN ASPART (*BKC) 100 UNITS/ML SUB-Q ×2 (07:58→12:13)
[2024-07-28] MEDS: INSULIN ASPART (*BKC) 100 UNITS/ML 12 UNITS SUB-Q ×3 (07:59→16:44)
[2024-07-28 08:01] LABS: Alanine Aminotransferase 11 U/L (6-35); Albumin Level 3.4 g/dL (3.5-5.1); Alkaline Phosphatase 105 U/L (38-126); Anion Gap 4 mmol/L (4-12); Aspartate Amino Transferase 17 U/L (14-36); Bilirubin,Total 0.3 mg/dL (0.2-1.3); Blood Urea Nitrogen 43 mg/dL (7-17); Calcium 8.9 mg/dL (8.4-10.2); Carbon Dioxide 33 mmol/L (22-30); Chloride 101 mmol/L (98-107); Estimated CRCL calculation 17 ml/min; Estimated Glomerular Filt Rate 14; Glucose 195 mg/dL (65-110); Potassium 3.9 mmol/L (3.4-5.0); Sodium 138 mmol/L (137-145)
[2024-07-28] MEDS: carvediloL 6.25 MG TABLET PO (08:09)
[2024-07-28] MEDS: APIXABAN 5 MG TABLET PO ×2 (08:09→20:38)
[2024-07-28] MEDS: OPTI-GEN TAB 1 TABLET PO ×2 (08:09→20:38)
[2024-07-28] MEDS: ASPIRIN 81 MG ENTERIC TABLET PO (08:09)
[2024-07-28] MEDS: EMPAGLIFLOZIN 10 MG TABLET PO (08:09)
[2024-07-28] MEDS: allopurinoL 100 MG TABLET PO (08:10)
[2024-07-28] MEDS: PRAMIPEXOLE 0.25 MG TABLET PO ×2 (08:10→20:38)
[2024-07-28] MEDS: MEMANTINE 10 MG TABLET PO ×2 (08:10→20:38)
[2024-07-28] MEDS: amLODIPine BESYLATE 10 MG TABLET PO (08:10)
[2024-07-28] MEDS: VITAMIN B COMPLEX CAPSULE 1 CAP PO (08:10)
[2024-07-28] MEDS: ISOSORBIDE DINITRATE 10 MG TABLET PO ×2 (08:10→20:39)
[2024-07-28] MEDS: buPROPion HCL XL (24 HR) 150 MG TABCR PO (08:10)
[2024-07-28] MEDS: busPIRone HCL 5 MG TABLET 15 MG PO (08:10)
[2024-07-28] MEDS: CALCIUM/VITAMIN D 500 MG/5 MCG (200 I.U.) TABLET PO (08:10)
[2024-07-28] MEDS: PANTOPRAZOLE 40 MG TABLET PO ×2 (08:10→20:39)
[2024-07-28] MEDS: INSULIN GLARGINE SUB-Q (08:14)
[2024-07-28] MEDS: [UNRECOGNIZED DRUG - OTHER] SUB-Q (08:14)
[2024-07-28] MEDS: MUPIROCIN 2% OINT 22 GM TUBE 1 APPLIC TOPICAL ×2 (08:14→20:40)
[2024-07-28] MEDS: TROSPIUM CHLORIDE 20 MG 1 EACH PO ×2 (08:14→20:43)
--- NOTE | 2024-07-28 10:31 | PCNWS ---
Weekly nutritional screen. Patient is tolerating current diet with adequate intake, 100% intakes on diabetic consistent carb, heart healthy diet. No weight loss reported. No nutritional needs at this time.
--- NOTE | 2024-07-28 10:45 | PM.PNCARD ---
Progress Note: A&P Assessment and Plan (1) Acute on chronic heart failure with preserved ejection fraction (HFpEF, >= 50%): Code(s): I50.33 - Acute on chronic diastolic (congestive) heart failure Status: Acute (2) Coronary artery disease: Code(s): I25.10 - Atherosclerotic heart disease of [place] coronary artery without angina pectoris Status: Acute (3) Atrial fibrillation: Qualifiers: Atrial fibrillation type: unspecified Qualified Code(s): I48.91 - Unspecified atrial fibrillation Code(s): I48.91 - Unspecified atrial fibrillation Status: Acute Assessment and Plan: - On Apixaban Plan 78-year-old woman with CAD status post multivessel PCI, HFpEF, paroxysmal atrial fibrillation, hypertension, and hyperlipidemia presented with worsening shortness of breath, orthopnea, and lower extremity swelling consistent with acute on chronic diastolic heart failure 1. Acute on chronic diastolic heart failure -suspect she has developed ATN from the intravenous diuresis - Will continue to hold IV bumex - Consider Nephro evaluation 2. CAD status post multivessel PCI - On PCSK9, imdur - on ASA 81 mg 3. Paroxysmal atrial fibrillation -continue carvedilol 6.25 mg p.o. b.i.d., amiodarone 200 mg p.o. daily, and Eliquis 5 mg p.o. b.i.d. 4. Hypertension -continue amlodipine 10 mg p.o. daily with goal systolic blood pressure less than 130mmHg -continue Isordil 10 mg b.i.d. and carvedilol 6.25 mg p.o. b.i.d. -should systolic blood pressure be above goal, isosorbide dinitrate can be increased to 20 mg p.o. b.i.d. 5. Hyperlipidemia -continue Repatha as an outpatient Subjective Date/time seen: 07/28/24 10:45 Interval history: Feels better Undergoing PT/OT Creatinine went up today despite holding diuretics since Thursday, Cr 3.2 today, has been positive 1200 mL since past 2 days Review of Systems Review of Systems: All systems reviewed & are unremarkable except as noted in HPI and below (HPI) Cardiovascular: Cardiovascular: Reports as per HPI and Denies chest pain Respiratory: Respiratory: Reports as per HPI Exam Const: General: comfortable, no acute distress, alert and awake Orientation/consciousness: patient oriented x3 HENMT: Head: normal to inspection Mouth: Yes moist mucous membranes Eyes: General: appearance normal, both eyes and all related structures Sclera: sclerae normal Pupils: Equal, round and reactive pupils present EOM: EOMs intact bilaterally Neck: Neck: normal visual inspection, supple and no JVD Carotids: normal carotid upstroke Resp: Effort & Inspection: normal respiratory effort Auscultation: clear to auscultation bilaterally and rales bilateral Cardio: Rate: regular rate Rhythm: regular rhythm and abnormal rhythm Heart sounds: S1 normal heart sound present, S2 normal heart sound present and no murmurs Other: + Bilateral lower extremity edema GI: Auscultation: normal bowel sounds Skin: General skin exam: normal color and lesion Lesions: lesion noted Other: redness and erythema bilateral lower legs Neuro: General: patient oriented x3 Cranial nerves: Yes Equal, round and reactive pupils present Speech: normal speech Extrem: General: abnormal to inspection, edema and pedal edema Psych: Appearance: grossly normal Mental Status: mental status grossly normal Affect: normal affect Objective Data Vital Signs Vital Signs: Vital Signs - 24 hr 07/27/24 19:53 07/27/24 20:13 07/27/24 20:29 Temperature 36.8 C Pulse Rate 73 78 Respiratory Rate 18 Blood Pressure 126/67 Pulse Oximetry 96 Oxygen Delivery Room Air 07/27/24 23:35 07/28/24 02:46 07/28/24 05:40 Temperature 36.8 C Pulse Rate 73 Respiratory Rate 16 Blood Pressure 130/65 Pulse Oximetry 98 Oxygen Delivery Room Air Room Air 07/28/24 08:09 Temperature Pulse Rate 76 Respiratory Rate Blood Pressure Pulse Oximetry Oxygen Delivery Intake/Output Intake/Output: Intake & Output 07/25/24 07/26/24 07/27/24 07/28/24 23:59 23:59 23:59 23:59 Intake Total 1477 1617 860 540 Output Total 1100 950 325 500 Balance 377 667 535 40 Meds/Results Medications: Active Medications Generic Name Dose Route Start Last Admin Trade Name Freq PRN Reason Stop Dose Admin Acetaminophen 650 mg 07/22/24 22:48 07/27/24 20:31 Acetaminophen 325 Mg Tablet PO 650 mg Q4H PRN Administration pain 6 or less Allopurinol 100 mg 07/22/24 09:00 07/28/24 08:10 Allopurinol 100 Mg Tablet PO 100 mg DAILY NICOLE Administration Amiodarone HCl 200 mg 07/21/24 21:00 07/27/24 20:29 Amiodarone Hcl 200 Mg Tablet PO 200 mg HS NICOLE Administration Amlodipine Besylate 10 mg 07/21/24 10:55 07/28/24 08:10 Amlodipine Besylate 10 Mg Tablet PO 10 mg DAILY NICOLE Administration Apixaban 5 mg 07/21/24 10:55 07/28/24 08:09 Apixaban 5 Mg Tablet PO 5 mg Q12HR NICOLE Administration Aspirin 81 mg 07/26/24 09:00 07/28/24 08:09 Aspirin 81 Mg Enteric Tablet PO 81 mg QAM NICOLE Administration Bumetanide 2 mg 07/21/24 17:00 07/24/24 08:16 Bumetanide Inj 2.5 Mg/10 Ml Vial IV PUSH 2 mg BID NICOLE Administration Bupropion HCl 150 mg 07/22/24 09:00 07/28/24 08:10 Bupropion Hcl Xl (24 Hr) 150 Mg Tabcr PO 150 mg DAILY NICOLE Administration Buspirone HCl 15 mg 07/22/24 09:00 07/28/24 08:10 Buspirone Hcl 5 Mg Tablet PO 15 mg DAILY NICOLE Administration Calcium Carbonate 500 mg 07/22/24 09:00 07/28/24 08:10 Calcium/Vitamin D 500 Mg/5 Mcg (200 I.U.) Tablet PO 500 mg DAILY NICOLE Administration Carvedilol 6.25 mg 07/22/24 09:00 07/28/24 08:09 Carvedilol 6.25 Mg Tablet PO 6.25 mg DAILY NICOLE Administration Dextrose 12.5 gm 07/21/24 11:05 Dextrose 50% 25 Gm/50 Ml Syringe IV PUSH PRN PRN Hypoglycemia Protocol Divalproex Sodium 500 mg 07/21/24 21:00 07/27/24 20:[address] 250 Mg Tabec PO 500 mg HS NICOLE Administration Empagliflozin 10 mg 07/23/24 09:00 07/28/24 08:09 Empagliflozin 10 Mg Tablet PO 10 mg DAILY NICOLE Administration Famotidine 20 mg 07/21/24 21:00 07/27/24 20:27 Famotidine 20 Mg Tablet PO 20 mg HS NICOLE Administration Gabapentin 100 mg 07/21/24 14:00 07/28/24 05:36 Gabapentin 100 Mg Capsule PO 100 mg Q8HR NICOLE Administration Glucagon 1 mg 07/21/24 11:05 Glucagon For Inj 1 Mg Vial IM PRN PRN Hypoglycemia Protocol Glucose 15 gm 07/21/24 11:05 Glucose Oral Gel 15 Gm Of Glucse In 37.5 Gm Tube PO PRN PRN Hypoglycemia Protocol Hydralazine HCl 10 mg 07/21/24 10:56 Hydralazine Hcl 20 Mg/Ml Vial IV PUSH Q6H PRN Blood Pressure - High Dextrose 1,000 mls @ 100 mls/hr 07/21/24 11:05 Dextrose 5% 1,000 Ml IVPB PRN PRN Hypoglycemia Protocol Insulin Aspart 4 - 8 units 07/21/24 12:00 07/28/24 07:58 Insulin Aspart (*Bkc) 100 Units/Ml SUB-Q 4 units TIDWM NICOLE Administration Protocol Insulin Aspart 2 - 4 units 07/21/24 21:00 07/27/24 21:49 Insulin Aspart (*Bkc) 100 Units/Ml SUB-Q Not Given HS NICOLE Protocol Insulin Aspart 12 units 07/21/24 17:20 07/28/24 07:59 Insulin Aspart (*Bkc) 100 Units/Ml SUB-Q 12 units ACINSULIN NICOLE Administration Isosorbide Dinitrate 10 mg 07/21/24 10:55 07/28/24 08:10 Isosorbide Dinitrate 10 Mg Tablet PO 10 mg Q12HR NICOLE Administration Levothyroxine Sodium 75 mcg 07/22/24 06:30 07/28/24 05:36 Levothyroxine Sodium 75 Mcg Tablet PO 75 mcg 0630 NICOLE Administration Melatonin 5 mg 07/23/24 00:59 07/23/24 21:51 Melatonin 5 Mg Tablet PO 5 mg HS PRN Administration Sleep Memantine 10 mg 07/21/24 10:55 07/28/24 08:10 Memantine 10 Mg Tablet PO 10 mg Q12HR NICOLE Administration Menthol/Methyl Salicylate 1 applic 07/23/24 15:52 07/24/24 08:21 Menthol 10% / Methyl Salicylate 15% 57 Gm Tube TOPICAL 1 applic BID PRN Administration Muscle/Joint Pain Multivitamins/Minerals 1 tablet 07/21/24 11:15 07/28/24 08:09 Opti-Gen Tab PO 1 tablet Q12HR NICOLE Administration Mupirocin 1 applic 07/21/24 21:00 07/28/24 08:14 Mupirocin 2% Oint 22 Gm Tube TOPICAL 1 applic Q12HR NICOLE Administration Non-Formulary ( 0 each 07/21/24 17:25 07/21/24 17:55 Evolocumab 140 Mg/Ml SUB-Q 08/20/24 17:24 1 each Subcutaneous Pen Q14D@0900 NICOLE Administration Injector) Non-Formulary ( 1 each 07/21/24 21:00 07/28/24 08:14 Trospium Chloride 20 PO 08/20/24 20:59 1 each Mg Oral Tablet) Q12HR NICOLE Administration Non-Formulary ( 0 each 07/22/24 09:00 07/28/24 08:14 Insulin Glargine, SUB-Q 08/21/24 08:59 45 each Human Recombinant DAILY NICOLE Administration Analog 300 Unit/Ml ( 3 Ml) Subcut...) Nystatin 1 applic 07/21/24 10:52 Nystatin Ointment 15 Gm Tube TOPICAL BID PRN Rash Pantoprazole Sodium 40 mg 07/21/24 21:00 07/28/24 08:10 Pantoprazole 40 Mg Tablet PO 40 mg Q12HR NICOLE Administration Pramipexole Dihydrochloride 0.25 mg 07/21/24 21:00 07/28/24 08:10 Pramipexole 0.25 Mg Tablet PO 0.25 mg Q12H NICOLE Administration Vitamin B Complex 1 cap 07/22/24 09:00 07/28/24 08:10 Vitamin B Complex Capsule PO 1 cap DAILY NICOLE Administration Radiology Results: ITS Impressions Chest X-Ray 07/20/24 16:47 IMPRESSION: Moderate right and small left-sided pleural effusions, an interval change from previous examination. No focal infiltrate Labs Labs: Laboratory Results - last 24 hr 07/27/24 07/27/24 07/27/24 12:03 16:44 19:38 WBC RBC Hgb Hct MCV MCH MCHC RDW Plt Count MPV Immature Gran % (Auto) Neut % (Auto) Lymph % (Auto) [place] % (Auto) Eos % (Auto) Baso % (Auto) Lymph # (Auto) [place] # (Auto) Eos # (Auto) Baso # (Auto) Abs Immat Gran (auto) Absolute Neuts (auto) Absolute Nucleated RBC Nucleated RBC % Sodium Potassium Chloride Carbon Dioxide Anion Gap BUN Creatinine Estim Creat Clear Calc Estimated GFR Glucose POC Capillary Glucose 151 H 139 H 104 Calcium Total Bilirubin AST ALT Alkaline Phosphatase Total Protein Albumin 07/27/24 07/28/24 07/28/24 21:54 06:43 07:24 WBC 8.9 RBC 3.10 L Hgb 8.7 L Hct 28.7 L MCV 92.6 MCH 28.1 MCHC 30.3 L RDW 16.3 H Plt Count 306 MPV 9.4 Immature Gran % (Auto) 0.3 Neut % (Auto) 64.8 Lymph % (Auto) 17.8 L [place] % (Auto) 7.7 Eos % (Auto) 8.7 H Baso % (Auto) 0.7 Lymph # (Auto) 1.58 [place] # (Auto) 0.7 H Eos # (Auto) 0.8 H Baso # (Auto) 0.1 Abs Immat Gran (auto) 0.03 Absolute Neuts (auto) 5.8 Absolute Nucleated RBC 0.000 Nucleated RBC % 0.0 Sodium 138 Potassium 3.9 Chloride 101 Carbon Dioxide 33 H Anion Gap 4 BUN 43 H Creatinine 3.20 H Estim Creat Clear Calc 17 Estimated GFR 14 L Glucose 195 H POC Capillary Glucose 135 H 186 H Calcium 8.9 Total Bilirubin 0.3 AST 17 ALT 11 Alkaline Phosphatase 105 Total Protein 7.0 Albumin 3.4 L 07/28/24 07:34 WBC RBC Hgb Hct MCV MCH MCHC RDW Plt Count MPV Immature Gran % (Auto) Neut % (Auto) Lymph % (Auto) [place] % (Auto) Eos % (Auto) Baso % (Auto) Lymph # (Auto) [place] # (Auto) Eos # (Auto) Baso # (Auto) Abs Immat Gran (auto) Absolute Neuts (auto) Absolute Nucleated RBC Nucleated RBC % Sodium Potassium Chloride Carbon Dioxide Anion Gap BUN Creatinine Estim Creat Clear Calc Estimated GFR Glucose POC Capillary Glucose 228 H Calcium Total Bilirubin AST ALT Alkaline Phosphatase Total Protein Albumin
[2024-07-28 11:57] LABS: Glucose Point of Care 222 mg/dl (65-105)
--- NOTE | 2024-07-28 14:15 | PM.CNNEP ---
Assessment and Plan Assessment and plan (1) ALBERTINA (acute kidney injury): Code(s): N17.9 - Acute kidney failure, unspecified Status: Resolved (2) Chronic kidney disease, stage IV (severe): Code(s): N18.4 - Chronic kidney disease, stage 4 (severe) Status: Chronic Assessment and Plan: baseline creatinine fluctuates to extremes -- anywhere from 1.6 - 2.4mg/dl (in the last year) due to her hypertension, diabetes, obstructive sleep apnea, gout, diastolic heart failure, and age-related change.? History of Present Illness Reason for Consult Consult date: 07/28/24 Reason for consult: acute renal failure (on chronic kidney disease) Chief Complaint Chief complaint: Acute exacerbation of CHF Review of Systems Review of Systems: As per HPI. [facility] Past Medical History Medical History Anemia Anxiety Ataxia Breast cancer Chronic anticoagulation Degeneration of lumbar or lumbosacral intervertebral disc Depression Diabetes mellitus type 2 in obese (~1989) A1c 10 on July 21, 2022 Diabetic peripheral neuropathy Diastolic heart failure Echocardiogram 05/2022: Normal left ventricular systolic function EF 65-70%, mildly increased left ventricular wall thickness, diastolic dysfunction grade 2, moderately elevated E/E 20, increased global longitudinal strain and-18%, mild mitral valve regurgitation, mild tricuspid regurgitation, moderate pulmonary hypertension with RVSP of [address] Ann Dysphagia Esophageal abnormality History of stress test Hypertension Hypothyroidism Knee osteoarthritis Macular degeneration Minimal cognitive impairment Mixed hyperlipidemia Normal esophagogastroduodenoscopy (EGD) Obstructive sleep apnea on CPAP Paroxysmal atrial fibrillation Restless leg syndrome Skin cancer Stage 3b chronic kidney disease (CKD) Dr. Eduardo Venous stasis dermatitis Surgical History Surgical History H/O cardiac catheterization H/O endoscopy H/O heart artery stent History of cholecystectomy History of reconstruction of right breast History of right hip replacement (~2017) History of right mastectomy Status post cataract extraction of both eyes with insertion of intraocular lens Family History Family History Father Hypertension COPD (chronic obstructive pulmonary disease) Heart disease Diabetes mellitus Mother Lung cancer Depression Sibling Acute basophilic leukemia Sepsis Diabetes mellitus Acute myocardial infarction Daughter Depression Drug overdose Sibling No problems noted. Social History Social History Social History: Surrogate medical decision maker: Luis Rome, jayne. Code status: Full code. Smoking status: Never smoker Second hand tobacco smoke exposure: Yes Alcohol intake: never Substance use: never Substance use type: does not use Do You Feel Safe in your Home?: Yes Lack of Transportation: No Lack of Food: Never True Current Housing: I Have Housing Concerned About Future Housing: No Difficulty Paying Gas/Electric Bills: No Difficulty Paying for Meds: No Currently Unemployed: No Education: High School Diploma/GED Difficulty w/ Childcare or Family Care: No Living arrangements: alone Additional living arrangements comments: . Lives alone. Has 2 children, daughter . 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 Spiritual care concerns: No Meds Home Medications and Allergies Home Medications Medication Instructions Recorded Confirmed Type divalproex 500 mg tablet,delayed 500 mg PO HS 03/06/22 07/21/24 History release (Depakote) vit C 250 mg-E 90 mg-zinc 40 1 tablet PO Q12H 03/27/23 07/21/24 History mg-copper 1 [id number] chew tablet (PreserVision AREDS-2) evolocumab 140 mg/mL subcutaneous 140 mg subcut Q14D 07/13/23 07/21/24 History pen injector (Narda Bernard) blood-glucose meter (Blood Glucose #1 ea 02/22/24 07/21/24 Rx Monitoring kit) bumetanide 2 mg tablet 2 mg PO Q12H 04/04/24 07/21/24 History calcium 600 mg (as 1 tablet PO DAILY 04/04/24 07/21/24 History carbonate)-vitamin D3 5 mcg (200 unit) tablet famotidine 20 mg tablet 20 mg PO HS 04/04/24 07/21/24 History gabapentin 100 mg capsule 100 mg PO Q8H 04/04/24 07/21/24 History (Neurontin) levothyroxine 75 mcg tablet 75 mcg PO 0630 04/04/24 07/21/24 History (Euthyrox) memantine 10 mg tablet 10 mg PO Q12H 04/04/24 07/21/24 History nystatin 100,000 unit/gram topical 1 applic topical BID PRN Rash 04/04/24 07/21/24 History ointment vitamin B complex 1 tablet PO DAILY 04/04/24 07/21/24 History apixaban 5 mg tablet (Eliquis) 5 mg PO Q12H #90 tabs 04/26/24 07/21/24 Rx omeprazole 40 mg capsule,delayed 40 mg PO DAILY laryngopharyngeal 05/03/24 07/21/24 Rx release reflux #30 caps insulin lispro 100 unit/mL 14 unit (0.14 mL) subcut .tidac 90 05/19/24 07/21/24 Rx subcutaneous pen (Humalog KwikPen days #54 mL (U-100) Insulin) insulin glargine U-300 conc 300 45 unit (0.15 mL) subcut DAILY 90 05/20/24 07/21/24 Rx unit/mL (3 mL) subcutaneous pen days #15 mL (Toujeo Max U-300 SoloStar) isosorbide dinitrate 10 mg tablet 10 mg PO Q12H #90 tabs 05/31/24 07/21/24 Rx amiodarone 200 mg tablet 200 mg PO HS #30 tabs 06/24/24 07/21/24 Rx trospium 20 mg tablet 20 mg PO Q12H #30 tabs 06/24/24 07/21/24 Rx mupirocin 2 % topical ointment 1 applic topical BID #22 grams 07/12/24 07/21/24 Rx allopurinol 100 mg tablet 100 mg PO DAILY 07/21/24 07/21/24 History bupropion HCl 150 mg 24 hr tablet, 150 mg PO DAILY 07/21/24 07/21/24 History extended release buspirone 15 mg tablet 15 mg PO DAILY 07/21/24 07/21/24 History carvedilol 6.25 mg tablet 6.25 mg PO DAILY 07/21/24 07/21/24 History pramipexole 0.25 mg tablet 0.25 mg PO BID 07/21/24 07/21/24 History venlafaxine 75 mg capsule,extended 125 mg PO DAILY 07/21/24 07/21/24 History release 24 hr (Effexor XR) Allergies Allergy/AdvReac Type Severity Reaction Status Date / Time Haiucbt-CHA-VbB Reductase Allergy Intermediate Other Verified 07/07/24 14:30 Inhibitor pseudoephedrine Allergy Unknown Hives Verified 07/07/24 14:30 NSAIDS (Non-Steroidal AdvReac Intermediate Other Verified 07/07/24 14:30 Anti-Inflamma oxycodone AdvReac Intermediate Itching Verified 07/07/24 14:30 atenolol AdvReac Mild Muscle Pain Verified 07/07/24 14:30 exenatide [From Bydureon] AdvReac Mild Diarrhea Verified 07/07/24 14:30 hydrocodone AdvReac Mild Itching Verified 07/07/24 14:30 [From Panlor (hydrocodone-acetamin)] prochlorperazine AdvReac Mild Itching Verified 07/07/24 14:30 [From Compazine] rice AdvReac Mild Heartburn Verified 07/07/24 14:30 Vital Signs Vital Signs Temp Pulse Resp BP Pulse Ox O2 Del Method 07/28/24 14:00 98.2 F 74 20 120/60 96 07/28/24 08:00 Room Air 07/28/24 08:00 76 140/52 L 95 07/28/24 08:09 76 07/28/24 05:40 98.2 F 73 16 130/65 98 07/28/24 02:46 Room Air 07/27/24 23:35 Room Air 07/27/24 20:29 78 07/27/24 20:13 98.2 F 73 18 126/67 96 07/27/24 19:53 Room Air Exam Narrative: GENERAL APPEARANCE: elderly but well developed well nourished female in no acute distress HEENT: normocephalic, atraumatic, normal conjunctiva and sclera, nares patient NECK: no lymphadenopathy, thyromegaly, or JVD MOUTH: normal lips, teeth, and gums CARDIOVASCULAR: RRR, normal S1 and S2, no rub RESPIRATORY: decreased at bases ABDOMEN: soft, nontender, nondistended, positive bowel sounds present EXTREMITIES: no evidence of cyanosis, clubbing, 1+ edema NEUROLOGICAL: alert and oriented x 3; CN II - XII intact bilaterally; no focal deficits noted Results Lab Results 07/28/24 07:24 11/21/24 07:24 Lab results: Most recent lab results Calcium 8.9 mg/dL (8.4-10.2) 07/28/24 07:24 Magnesium 2.4 mg/dL (1.6-2.3) H 07/27/24 06:48
[2024-07-28 16:32] LABS: Glucose Point of Care 142 mg/dl (65-105)
--- NOTE | 2024-07-28 18:02 | WPDPN ---
Progress Note: A&P Assessment and Plan (1) Acute CHF: Qualifiers: Heart failure type: unspecified Qualified Code(s): I50.9 - Heart failure, unspecified Code(s): I50.9 - Heart failure, unspecified Status: Acute (2) Elevated troponin: Code(s): R79.89 - Other specified abnormal findings of blood chemistry Status: Acute (3) Paroxysmal atrial fibrillation: Code(s): I48.0 - Paroxysmal atrial fibrillation Status: Chronic (4) Hypothyroidism: Qualifiers: Hypothyroidism type: acquired Qualified Code(s): E03.9 - Hypothyroidism, unspecified Code(s): E03.9 - Hypothyroidism, unspecified Status: Acute (5) Type 2 diabetes mellitus: Code(s): E11.9 - Type 2 diabetes mellitus without complications Status: Acute (6) Stage 3b chronic kidney disease: Code(s): N18.32 - Chronic kidney disease, stage 3b Status: Chronic Plan # Acute CHF Patient has a exertion dyspnea, previous EKG showed diastolic dysfunction Possible acute on chronic diastolic heart failure Started on Bumex 2 mg IV b.i.d. per Cardiology Follow-up input output Consult television cable installer for evaluation treatment Hold diuretics due to elevated creatinine which continues to incline but now stable Restart diuretics once start to trend down # Elevated troponin Patient has history of CAD status post stent, Positive troponin, EKG shows sinus rhythm no specific ST T-wave changes Possible demand ischemia due to uncontrolled hypertension Patient is on Eliquis 5 mg b.i.d. p.o. Isordil 10 mg q.12 hours p.o. Rest evaluation and management per television cable installer Telemetry monitoring, EKG p.r.n. # paroxysmal AFib Patient denies palpitation EKG shows sinus rhythm Continue home medication carvedilol 6.25 mg daily p.o., Eliquis 5 mg b.i.d. p.o. # Hypertension urgency Patient received Lasix in the ED Start amlodipine 10 mg daily p.o., hydrochlorothiazide 25 mg daily p.o., Hydralazine 10 mg q.6 hours p.r.n. with parameters Optimize medication for control of blood pressure and target Hydrochlorothiazide on hold # Chronic anemia No obvious bleeding Follow-up BMP # GERD Continue Protonix 40 mg daily p.o. # CKD stage 3 Avoid nephrotoxic medication Follow-up BMP Feels better Undergoing PT/OT Creatinine went up today despite holding diuretics since Thursday, Cr 3.2 today compared 1.7 upon arrival, television cable installer is recommending nephrology consult, today patient was seen by the mumps developer and suspect elevated Scr most likely multifactorial due to her hypertension, diabetes, obstructive sleep apnea, gout, diastolic heart failure, and age-related change.?workup is in progress, will monitor and plan. overall patient stats she is feeling better denies any CP or SOB to participating in PT. # Hypothyroidism Continue Synthroid 75 mcg daily p.o. # Type 2 diabetes Continue glargine 25 unit daily, aspart 40 units t.i.d., start insulin sliding scale a.c. and q.h.s. Hypoglycemia protocol as needed # Hypothyroidism continue Synthroid 75 mcg daily p.o. # DVT prophylaxis on apixaban # Code status do not resuscitate # disposition: If creatinine improves in a.m. restart Bumex home doses 2 mg b.i.d. and potential plan to discharge home Advised patient to stay on fluid restriction at home/upon discharge Subjective Date/time seen: 07/28/24 18:02 Interval history: Feels better Undergoing PT/OT Creatinine went up today despite holding diuretics since Thursday, Cr 3.2 today compared 1.7 upon arrival, television cable installer is recommending nephrology consult, today patient was seen by the mumps developer and suspect elevated Scr most likely multifactorial due to her hypertension, diabetes, obstructive sleep apnea, gout, diastolic heart failure, and age-related change.?workup is in progress, will monitor and plan. overall patient stats she is feeling better denies any CP or SOB to participating in PT. Review of Systems Review of Systems: All systems reviewed & are unremarkable except as noted in HPI and below Exam Narrative: Patient is comfortable, NAD HEENT: eyes are clear and none icteric LUNGS:CTA HEART: RR S1S2 ABD: BS+, Soft and nontender Lower extremities: no edema SKIN: nonjaundiced Neuro: grossly intact. Objective Data Vital Signs Vital Signs: Vital Signs - 24 hr 07/27/24 19:53 07/27/24 20:13 07/27/24 20:29 Temperature 36.8 C Pulse Rate 73 78 Respiratory Rate 18 Blood Pressure 126/67 Pulse Oximetry 96 Oxygen Delivery Room Air 07/27/24 23:35 07/28/24 02:46 07/28/24 05:40 Temperature 36.8 C Pulse Rate 73 Respiratory Rate 16 Blood Pressure 130/65 Pulse Oximetry 98 Oxygen Delivery Room Air Room Air 07/28/24 08:09 07/28/24 08:00 07/28/24 08:00 Temperature Pulse Rate 76 76 Respiratory Rate Blood Pressure 140/52 L Pulse Oximetry 95 Oxygen Delivery Room Air 07/28/24 14:00 07/28/24 16:45 Temperature 36.8 C Pulse Rate 74 66 Respiratory Rate 20 Blood Pressure 120/60 128/60 Pulse Oximetry 96 100 Oxygen Delivery Intake/Output Intake/Output: Intake & Output 07/25/24 07/26/24 07/27/24 07/28/24 23:59 23:59 23:59 23:59 Intake Total 1477 1617 860 960 Output Total 1100 950 325 750 Balance 377 667 535 210 Meds/Results Medications: Active Medications Generic Name Dose Route Start Last Admin Trade Name Freq PRN Reason Stop Dose Admin Acetaminophen 650 mg 07/22/24 22:48 07/27/24 20:31 Acetaminophen 325 Mg Tablet PO 650 mg Q4H PRN Administration pain 6 or less Allopurinol 100 mg 07/22/24 09:00 07/28/24 08:10 Allopurinol 100 Mg Tablet PO 100 mg DAILY NCIOLE Administration Amiodarone HCl 200 mg 07/21/24 21:00 07/27/24 20:29 Amiodarone Hcl 200 Mg Tablet PO 200 mg HS NICOLE Administration Amlodipine Besylate 10 mg 07/21/24 10:55 07/28/24 08:10 Amlodipine Besylate 10 Mg Tablet PO 10 mg DAILY NICOLE Administration Apixaban 5 mg 07/21/24 10:55 07/28/24 08:09 Apixaban 5 Mg Tablet PO 5 mg Q12HR NICOLE Administration Aspirin 81 mg 07/26/24 09:00 07/28/24 08:09 Aspirin 81 Mg Enteric Tablet PO 81 mg QAM NICOLE Administration Bumetanide 2 mg 07/21/24 17:00 07/24/24 08:16 Bumetanide Inj 2.5 Mg/10 Ml Vial IV PUSH 2 mg BID NICOLE Administration Bupropion HCl 150 mg 07/22/24 09:00 07/28/24 08:10 Bupropion Hcl Xl (24 Hr) 150 Mg Tabcr PO 150 mg DAILY NICOLE Administration Buspirone HCl 15 mg 07/22/24 09:00 07/28/24 08:10 Buspirone Hcl 5 Mg Tablet PO 15 mg DAILY NICOLE Administration Calcium Carbonate 500 mg 07/22/24 09:00 07/28/24 08:10 Calcium/Vitamin D 500 Mg/5 Mcg (200 I.U.) Tablet PO 500 mg DAILY NICOLE Administration Carvedilol 6.25 mg 07/22/24 09:00 07/28/24 08:09 Carvedilol 6.25 Mg Tablet PO 6.25 mg DAILY NICOLE Administration Dextrose 12.5 gm 07/21/24 11:05 Dextrose 50% 25 Gm/50 Ml Syringe IV PUSH PRN PRN Hypoglycemia Protocol Divalproex Sodium 500 mg 07/21/24 21:00 07/27/24 20:[address] 250 Mg Tabec PO 500 mg HS NICOLE Administration Empagliflozin 10 mg 07/23/24 09:00 07/28/24 08:09 Empagliflozin 10 Mg Tablet PO 10 mg DAILY NICOLE Administration Famotidine 20 mg 07/21/24 21:00 07/27/24 20:27 Famotidine 20 Mg Tablet PO 20 mg HS NICOLE Administration Gabapentin 100 mg 07/21/24 14:00 07/28/24 14:33 Gabapentin 100 Mg Capsule PO 100 mg Q8HR NICOLE Administration Glucagon 1 mg 07/21/24 11:05 Glucagon For Inj 1 Mg Vial IM PRN PRN Hypoglycemia Protocol Glucose 15 gm 07/21/24 11:05 Glucose Oral Gel 15 Gm Of Glucse In 37.5 Gm Tube PO PRN PRN Hypoglycemia Protocol Hydralazine HCl 10 mg 07/21/24 10:56 Hydralazine Hcl 20 Mg/Ml Vial IV PUSH Q6H PRN Blood Pressure - High Dextrose 1,000 mls @ 100 mls/hr 07/21/24 11:05 Dextrose 5% 1,000 Ml IVPB PRN PRN Hypoglycemia Protocol Insulin Aspart 4 - 8 units 07/21/24 12:00 07/28/24 16:43 Insulin Aspart (*Bkc) 100 Units/Ml SUB-Q Not Given TIDWM NICOLE Protocol Insulin Aspart 2 - 4 units 07/21/24 21:00 07/27/24 21:49 Insulin Aspart (*Bkc) 100 Units/Ml SUB-Q Not Given HS NICOLE Protocol Insulin Aspart 12 units 07/21/24 17:20 07/28/24 16:44 Insulin Aspart (*Bkc) 100 Units/Ml SUB-Q 12 units ACINSULIN NICOLE Administration Isosorbide Dinitrate 10 mg 07/21/24 10:55 07/28/24 08:10 Isosorbide Dinitrate 10 Mg Tablet PO 10 mg Q12HR NICOLE Administration Levothyroxine Sodium 75 mcg 07/22/24 06:30 07/28/24 05:36 Levothyroxine Sodium 75 Mcg Tablet PO 75 mcg 0630 NICOLE Administration Melatonin 5 mg 07/23/24 00:59 07/23/24 21:51 Melatonin 5 Mg Tablet PO 5 mg HS PRN Administration Sleep Memantine 10 mg 07/21/24 10:55 07/28/24 08:10 Memantine 10 Mg Tablet PO 10 mg Q12HR NICOLE Administration Menthol/Methyl Salicylate 1 applic 07/23/24 15:52 07/24/24 08:21 Menthol 10% / Methyl Salicylate 15% 57 Gm Tube TOPICAL 1 applic BID PRN Administration Muscle/Joint Pain Multivitamins/Minerals 1 tablet 07/21/24 11:15 07/28/24 08:09 Opti-Gen Tab PO 1 tablet Q12HR NICOLE Administration Mupirocin 1 applic 07/21/24 21:00 07/28/24 08:14 Mupirocin 2% Oint 22 Gm Tube TOPICAL 1 applic Q12HR NICOLE Administration Non-Formulary ( 0 each 07/21/24 17:25 07/21/24 17:55 Evolocumab 140 Mg/Ml SUB-Q 08/20/24 17:24 1 each Subcutaneous Pen Q14D@0900 NICOLE Administration Injector) Non-Formulary ( 1 each 07/21/24 21:00 07/28/24 08:14 Trospium Chloride 20 PO 08/20/24 20:59 1 each Mg Oral Tablet) Q12HR NICOLE Administration Non-Formulary ( 0 each 07/22/24 09:00 07/28/24 08:14 Insulin Glargine, SUB-Q 08/21/24 08:59 45 each Human Recombinant DAILY NICOLE Administration Analog 300 Unit/Ml ( 3 Ml) Subcut...) Nystatin 1 applic 07/21/24 10:52 Nystatin Ointment 15 Gm Tube TOPICAL BID PRN Rash Pantoprazole Sodium 40 mg 07/21/24 21:00 07/28/24 08:10 Pantoprazole 40 Mg Tablet PO 40 mg Q12HR NICOLE Administration Pramipexole Dihydrochloride 0.25 mg 07/21/24 21:00 07/28/24 08:10 Pramipexole 0.25 Mg Tablet PO 0.25 mg Q12H NICOLE Administration Vitamin B Complex 1 cap 07/22/24 09:00 07/28/24 08:10 Vitamin B Complex Capsule PO 1 cap DAILY NICOLE Administration Radiology Results: ITS Impressions Chest X-Ray 07/20/24 16:47 IMPRESSION: Moderate right and small left-sided pleural effusions, an interval change from previous examination. No focal infiltrate Labs Labs: Laboratory Results - last 24 hr 07/27/24 07/27/24 07/28/24 19:38 21:54 06:43 WBC RBC Hgb Hct MCV MCH MCHC RDW Plt Count MPV Immature Gran % (Auto) Neut % (Auto) Lymph % (Auto) [place] % (Auto) Eos % (Auto) Baso % (Auto) Lymph # (Auto) [place] # (Auto) Eos # (Auto) Baso # (Auto) Abs Immat Gran (auto) Absolute Neuts (auto) Absolute Nucleated RBC Nucleated RBC % Sodium Potassium Chloride Carbon Dioxide Anion Gap BUN Creatinine Estim Creat Clear Calc Estimated GFR Glucose POC Capillary Glucose 104 135 H 186 H Calcium Total Bilirubin AST ALT Alkaline Phosphatase Total Protein Albumin 07/28/24 07/28/24 07/28/24 07:24 07:34 11:50 WBC 8.9 RBC 3.10 L Hgb 8.7 L Hct 28.7 L MCV 92.6 MCH 28.1 MCHC 30.3 L RDW 16.3 H Plt Count 306 MPV 9.4 Immature Gran % (Auto) 0.3 Neut % (Auto) 64.8 Lymph % (Auto) 17.8 L [place] % (Auto) 7.7 Eos % (Auto) 8.7 H Baso % (Auto) 0.7 Lymph # (Auto) 1.58 [place] # (Auto) 0.7 H Eos # (Auto) 0.8 H Baso # (Auto) 0.1 Abs Immat Gran (auto) 0.03 Absolute Neuts (auto) 5.8 Absolute Nucleated RBC 0.000 Nucleated RBC % 0.0 Sodium 138 Potassium 3.9 Chloride 101 Carbon Dioxide 33 H Anion Gap 4 BUN 43 H Creatinine 3.20 H Estim Creat Clear Calc 17 Estimated GFR 14 L Glucose 195 H POC Capillary Glucose 228 H 222 H Calcium 8.9 Total Bilirubin 0.3 AST 17 ALT 11 Alkaline Phosphatase 105 Total Protein 7.0 Albumin 3.4 L 07/28/24 16:26 WBC RBC Hgb Hct MCV MCH MCHC RDW Plt Count MPV Immature Gran % (Auto) Neut % (Auto) Lymph % (Auto) [place] % (Auto) Eos % (Auto) Baso % (Auto) Lymph # (Auto) [place] # (Auto) Eos # (Auto) Baso # (Auto) Abs Immat Gran (auto) Absolute Neuts (auto) Absolute Nucleated RBC Nucleated RBC % Sodium Potassium Chloride Carbon Dioxide Anion Gap BUN Creatinine Estim Creat Clear Calc Estimated GFR Glucose POC Capillary Glucose 142 H Calcium Total Bilirubin AST ALT Alkaline Phosphatase Total Protein Albumin
[2024-07-28] MEDS: DIVALPROEX SODIUM DR 250 MG TABEC 500 MG PO (20:38)
[2024-07-28] MEDS: FAMOTIDINE 20 MG TABLET PO (20:39)
[2024-07-28] MEDS: AMIODARONE HCL 200 MG TABLET PO (20:39)
[2024-07-28 21:19] LABS: Glucose Point of Care 113 mg/dl (65-105)
[2024-07-29 04:40] VITALS: BP 162/57; PULSE 72; RESP 18; TEMP 37; O2SAT 97
[2024-07-29] MEDS: GABAPENTIN 100 MG CAPSULE PO ×2 (05:38→16:23)
[2024-07-29] MEDS: LEVOTHYROXINE SODIUM 75 MCG TABLET PO (05:38)
[2024-07-29 07:09] LABS: Basophils Absolute Auto 0.1 K/mm3 (0.0-0.1); Basophils Percent Auto 0.7 % (0.2-1.2); Eosinophils Absolute Auto 0.9 K/mm3 (0-0.3); Eosinophils Percent Auto 9.5 % (0-4.4); Hematocrit 28.3 % (37.0-47.0); Hemoglobin 8.4 g/dL (12.0-15.0); Immature Granulocyte Absolute 0.02 K/mm3 (0.00-0.031); Immature Granulocyte Percent A 0.2 % (0-0.5); Lymphocytes Absolute Auto 1.92 K/mm3 (0.9-3.2); Lymphocytes Percent Auto 20.8 % (18.3-44.2); Mean Corpuscular HGB Conc 29.7 g/dl (32-36); Mean Corpuscular Hemoglobin 27.3 pg (26-34); Mean Corpuscular Volume 91.9 fl (80-100); Mean Platelet Volume 9.5 fl (7.4-10.4); Monocytes Absolute Auto 0.8 K/mm3 (0.1-0.6); Monocytes Percent Auto 8.1 % (2.6-8.5); Neutrophils Absolute Auto 5.6 K/mm3 (1.3-6.7); Neutrophils Percent Auto 60.7 % (45.5-73.1); Platelet Count Result 310 k/mm3 (150-375); Red Blood Count 3.08 M/mm3 (4.2-5.4); Red Cell Distribution Width 15.9 % (11.5-14.5); White Blood Count 9.2 K/mm3 (4.5-10.0)
[2024-07-29 07:22] LABS: Alanine Aminotransferase 10 U/L (6-35); Albumin Level 3.4 g/dL (3.5-5.1); Alkaline Phosphatase 95 U/L (38-126); Anion Gap 7 mmol/L (4-12); Aspartate Amino Transferase 17 U/L (14-36); Bilirubin,Total 0.3 mg/dL (0.2-1.3); Blood Urea Nitrogen 45 mg/dL (7-17); Calcium 9.1 mg/dL (8.4-10.2); Carbon Dioxide 33 mmol/L (22-30); Chloride 102 mmol/L (98-107); Estimated CRCL calculation 18 ml/min; Estimated Glomerular Filt Rate 15; Glucose 89 mg/dL (65-110); Potassium 3.9 mmol/L (3.4-5.0); Sodium 142 mmol/L (137-145)
[2024-07-29 07:35] LABS: Glucose Point of Care 97 mg/dl (65-105)
[2024-07-29 07:41] LABS: Hypochromasia 1+; Platelet Estimate Adequate (Adequate)
[2024-07-29 07:45] LABS: Schistocytes None Seen
[2024-07-29] MEDS: INSULIN ASPART (*BKC) 100 UNITS/ML 12 UNITS SUB-Q ×2 (08:35→12:00)
[2024-07-29] MEDS: [UNRECOGNIZED DRUG - OTHER] SUB-Q (08:38)
[2024-07-29] MEDS: INSULIN GLARGINE SUB-Q (08:38)
[2024-07-29] MEDS: TROSPIUM CHLORIDE 20 MG 1 EACH PO (08:46)
[2024-07-29] MEDS: ASPIRIN 81 MG ENTERIC TABLET PO (08:51)
[2024-07-29] MEDS: MEMANTINE 10 MG TABLET PO (08:51)
[2024-07-29] MEDS: VITAMIN B COMPLEX CAPSULE 1 CAP PO (08:51)
[2024-07-29] MEDS: buPROPion HCL XL (24 HR) 150 MG TABCR PO (08:51)
[2024-07-29] MEDS: PRAMIPEXOLE 0.25 MG TABLET PO (08:52)
[2024-07-29] MEDS: EMPAGLIFLOZIN 10 MG TABLET PO (08:52)
[2024-07-29] MEDS: APIXABAN 5 MG TABLET PO (08:52)
[2024-07-29] MEDS: OPTI-GEN TAB 1 TABLET PO (08:52)
[2024-07-29] MEDS: ISOSORBIDE DINITRATE 10 MG TABLET PO (08:52)
[2024-07-29 08:53] VITALS: PULSE 74
[2024-07-29] MEDS: carvediloL 6.25 MG TABLET PO (08:53)
[2024-07-29] MEDS: busPIRone HCL 5 MG TABLET 15 MG PO (08:53)
[2024-07-29] MEDS: amLODIPine BESYLATE 10 MG TABLET PO (08:53)
[2024-07-29] MEDS: MUPIROCIN 2% OINT 22 GM TUBE 1 APPLIC TOPICAL (08:54)
[2024-07-29] MEDS: PANTOPRAZOLE 40 MG TABLET PO (08:54)
[2024-07-29] MEDS: allopurinoL 100 MG TABLET PO (08:54)
[2024-07-29] MEDS: CALCIUM/VITAMIN D 500 MG/5 MCG (200 I.U.) TABLET PO (08:54)
--- NOTE | 2024-07-29 10:15 | PM.PNNEP ---
Subjective Date/time seen: 07/29/24 10:15 Interval history: Follow-up for acute kidney injury/acute renal failure on chronic kidney disease. Exam Narrative: General: elderly but WD/WN female in NAD Heart: normal S1 and S2; no rub Lungs: clear anteriorly Abdomen: soft, nontender, nondistended, positive bowel sounds Extremities: no cyanosis or clubbing; trace - 1+ edema Skin: warm and dry Objective Data Vital Signs Vital Signs: Vital Signs Temp Pulse Resp BP Pulse Ox O2 Del Method 07/29/24 08:53 74 07/29/24 04:40 98.6 F 72 18 162/57 H 97 07/29/24 02:05 Room Air 07/28/24 22:30 Room Air 07/28/24 20:40 97.7 F 74 18 130/44 L 97 07/28/24 20:39 77 07/28/24 16:45 66 128/60 100 07/28/24 14:00 98.2 F 74 20 120/60 96 Intake/Output Intake/Output: Intake & Output 07/26/24 07/27/24 07/28/24 07/29/24 23:59 23:59 23:59 23:59 Intake Total 1617 860 960 437 Output Total 054 257 3113 100 Balance 667 535 -190 337 Meds/Results Medications: Active Medications Generic Name Dose Route Start Last Admin Trade Name Freq PRN Reason Stop Dose Admin Acetaminophen 650 mg 07/22/24 22:48 07/29/24 10:20 Acetaminophen 325 Mg Tablet PO 650 mg Q4H PRN Administration pain 6 or less Allopurinol 100 mg 07/22/24 09:00 07/29/24 08:54 Allopurinol 100 Mg Tablet PO 100 mg DAILY NICOLE Administration Amiodarone HCl 200 mg 07/21/24 21:00 07/28/24 20:39 Amiodarone Hcl 200 Mg Tablet PO 200 mg HS NICOLE Administration Amlodipine Besylate 10 mg 07/21/24 10:55 07/29/24 08:53 Amlodipine Besylate 10 Mg Tablet PO 10 mg DAILY NICOLE Administration Apixaban 5 mg 07/21/24 10:55 07/29/24 08:52 Apixaban 5 Mg Tablet PO 5 mg Q12HR NICOLE Administration Aspirin 81 mg 07/26/24 09:00 07/29/24 08:51 Aspirin 81 Mg Enteric Tablet PO 81 mg QAM NICOLE Administration Bumetanide 2 mg 07/21/24 17:00 07/24/24 08:16 Bumetanide Inj 2.5 Mg/10 Ml Vial IV PUSH 2 mg BID NICOLE Administration Bupropion HCl 150 mg 07/22/24 09:00 07/29/24 08:51 Bupropion Hcl Xl (24 Hr) 150 Mg Tabcr PO 150 mg DAILY NICOLE Administration Buspirone HCl 15 mg 07/22/24 09:00 07/29/24 08:53 Buspirone Hcl 5 Mg Tablet PO 15 mg DAILY NICOLE Administration Calcium Carbonate 500 mg 07/22/24 09:00 07/29/24 08:54 Calcium/Vitamin D 500 Mg/5 Mcg (200 I.U.) Tablet PO 500 mg DAILY NICOLE Administration Carvedilol 6.25 mg 07/22/24 09:00 07/29/24 08:53 Carvedilol 6.25 Mg Tablet PO 6.25 mg DAILY NICOLE Administration Dextrose 12.5 gm 07/21/24 11:05 Dextrose 50% 25 Gm/50 Ml Syringe IV PUSH PRN PRN Hypoglycemia Protocol Divalproex Sodium 500 mg 07/21/24 21:00 07/28/24 20:[address] 250 Mg Tabec PO 500 mg HS NICOLE Administration Empagliflozin 10 mg 07/23/24 09:00 07/29/24 08:52 Empagliflozin 10 Mg Tablet PO 10 mg DAILY NICOLE Administration Famotidine 20 mg 07/21/24 21:00 07/28/24 20:39 Famotidine 20 Mg Tablet PO 20 mg HS NICOLE Administration Gabapentin 100 mg 07/21/24 14:00 07/29/24 05:38 Gabapentin 100 Mg Capsule PO 100 mg Q8HR NICOLE Administration Glucagon 1 mg 07/21/24 11:05 Glucagon For Inj 1 Mg Vial IM PRN PRN Hypoglycemia Protocol Glucose 15 gm 07/21/24 11:05 Glucose Oral Gel 15 Gm Of Glucse In 37.5 Gm Tube PO PRN PRN Hypoglycemia Protocol Hydralazine HCl 10 mg 07/21/24 10:56 Hydralazine Hcl 20 Mg/Ml Vial IV PUSH Q6H PRN Blood Pressure - High Dextrose 1,000 mls @ 100 mls/hr 07/21/24 11:05 Dextrose 5% 1,000 Ml IVPB PRN PRN Hypoglycemia Protocol Insulin Aspart 4 - 8 units 07/21/24 12:00 07/29/24 07:35 Insulin Aspart (*Bkc) 100 Units/Ml SUB-Q Not Given TIDWM NICOLE Protocol Insulin Aspart 2 - 4 units 07/21/24 21:00 07/28/24 20:48 Insulin Aspart (*Bkc) 100 Units/Ml SUB-Q Not Given HS NICOLE Protocol Insulin Aspart 12 units 07/21/24 17:20 07/29/24 08:35 Insulin Aspart (*Bkc) 100 Units/Ml SUB-Q 12 units ACINSULIN NICOLE Administration Isosorbide Dinitrate 10 mg 07/21/24 10:55 07/29/24 08:52 Isosorbide Dinitrate 10 Mg Tablet PO 10 mg Q12HR NICOLE Administration Levothyroxine Sodium 75 mcg 07/22/24 06:30 07/29/24 05:38 Levothyroxine Sodium 75 Mcg Tablet PO 75 mcg 0630 NICOLE Administration Melatonin 5 mg 07/23/24 00:59 07/23/24 21:51 Melatonin 5 Mg Tablet PO 5 mg HS PRN Administration Sleep Memantine 10 mg 07/21/24 10:55 07/29/24 08:51 Memantine 10 Mg Tablet PO 10 mg Q12HR NICOLE Administration Menthol/Methyl Salicylate 1 applic 07/23/24 15:52 07/29/24 10:22 Menthol 10% / Methyl Salicylate 15% 57 Gm Tube TOPICAL 1 applic BID PRN Administration Muscle/Joint Pain Multivitamins/Minerals 1 tablet 07/21/24 11:15 07/29/24 08:52 Opti-Gen Tab PO 1 tablet Q12HR NICOLE Administration Mupirocin 1 applic 07/21/24 21:00 07/29/24 08:54 Mupirocin 2% Oint 22 Gm Tube TOPICAL 1 applic Q12HR NICOLE Administration Non-Formulary ( 0 each 07/21/24 17:25 07/21/24 17:55 Evolocumab 140 Mg/Ml SUB-Q 08/20/24 17:24 1 each Subcutaneous Pen Q14D@0900 NICOLE Administration Injector) Non-Formulary ( 1 each 07/21/24 21:00 07/29/24 08:46 Trospium Chloride 20 PO 08/20/24 20:59 1 each Mg Oral Tablet) Q12HR NICOLE Administration Non-Formulary ( 0 each 07/22/24 09:00 07/29/24 08:38 Insulin Glargine, SUB-Q 08/21/24 08:59 45 each Human Recombinant DAILY NICOLE Administration Analog 300 Unit/Ml ( 3 Ml) Subcut...) Nystatin 1 applic 07/21/24 10:52 Nystatin Ointment 15 Gm Tube TOPICAL BID PRN Rash Pantoprazole Sodium 40 mg 07/21/24 21:00 07/29/24 08:54 Pantoprazole 40 Mg Tablet PO 40 mg Q12HR NICOLE Administration Pramipexole Dihydrochloride 0.25 mg 07/21/24 21:00 07/29/24 08:52 Pramipexole 0.25 Mg Tablet PO 0.25 mg Q12H NICOLE Administration Vitamin B Complex 1 cap 07/22/24 09:00 07/29/24 08:51 Vitamin B Complex Capsule PO 1 cap DAILY NICOLE Administration Radiology Results: ITS Impressions Chest X-Ray 07/20/24 16:47 IMPRESSION: Moderate right and small left-sided pleural effusions, an interval change from previous examination. No focal infiltrate Labs Labs: Laboratory Tests 07/29/24 06:42 07/29/24 06:42 Calcium 9.1 Total Bilirubin 0.3 AST 17 ALT 10 Alkaline Phosphatase 95 Total Protein 7.0 Albumin 3.4 L
[2024-07-29] MEDS: ACETAMINOPHEN 325 MG TABLET 650 MG PO (10:20)
[2024-07-29] MEDS: MENTHOL 10% / METHYL SALICYLATE 15% 57 GM TUBE 1 APPLIC TOPICAL (10:22)
[2024-07-29 11:33] LABS: Glucose Point of Care 138 mg/dl (65-105)
--- NOTE | 2024-07-29 12:57 | P.DS_ITS ---
DS: Summary Time Spent with Patient Time attestation: Total time spent providing and/or coordinating discharge services: DS: Data Data Completed and Pending Labs on day of discharge: Labs from last 24 hours 07/29/24 07/29/24 07/29/24 11:27 07:29 06:42 WBC 9.2 RBC 3.08 L Hgb 8.4 L Hct 28.3 L MCV 91.9 MCH 27.3 MCHC 29.7 L RDW 15.9 H Plt Count 310 MPV 9.5 Immature Gran % (Auto) 0.2 Neut % (Auto) 60.7 Lymph % (Auto) 20.8 [place] % (Auto) 8.1 Eos % (Auto) 9.5 H Baso % (Auto) 0.7 Lymph # (Auto) 1.92 [place] # (Auto) 0.8 H Eos # (Auto) 0.9 H Baso # (Auto) 0.1 Abs Immat Gran (auto) 0.02 Absolute Neuts (auto) 5.6 Absolute Nucleated RBC 0.000 Nucleated RBC % 0.0 Platelet Estimate Adequate Hypochromasia 1+ Schistocytes None seen Sodium 142 Potassium 3.9 Chloride 102 Carbon Dioxide 33 H Anion Gap 7 BUN 45 H Creatinine 3.10 H Estim Creat Clear Calc 18 Estimated GFR 15 L Glucose 89 POC Capillary Glucose 138 H 97 Calcium 9.1 Total Bilirubin 0.3 AST 17 ALT 10 Alkaline Phosphatase 95 Total Protein 7.0 Albumin 3.4 L 07/28/24 07/28/24 20:41 16:26 WBC RBC Hgb Hct MCV MCH MCHC RDW Plt Count MPV Immature Gran % (Auto) Neut % (Auto) Lymph % (Auto) [place] % (Auto) Eos % (Auto) Baso % (Auto) Lymph # (Auto) [place] # (Auto) Eos # (Auto) Baso # (Auto) Abs Immat Gran (auto) Absolute Neuts (auto) Absolute Nucleated RBC Nucleated RBC % Platelet Estimate Hypochromasia Schistocytes Sodium Potassium Chloride Carbon Dioxide Anion Gap BUN Creatinine Estim Creat Clear Calc Estimated GFR Glucose POC Capillary Glucose 113 H 142 H Calcium Total Bilirubin AST ALT Alkaline Phosphatase Total Protein Albumin Discharge Plan Discharge Attending physician on discharge: Kalee Mccoy Consulting providers: Campbell Shin; Margaux Eduardo Discharging Clinician: Keshia Dinh Activity: as tolerated Diet: heart healthy and low sodium Discharge Instructions: patient to follow up with Dr. Sifuentes, facing baster jumpbasting in 1 week and patient is instructed not to start Bumex until ThursdayAugust 01, patient will need BMP before consulting, Patient to follow up with her primary care provider as soon as possible, patient is instructed if any symptoms redevelop abdomen pain, poor urine out put, chest pain, shortness of breath, swelling of legs to go nearest ER. Patient Instructions: Antibiotic Form, Heart Failure (DC) Stand Alone Forms: General Discharge Information Follow-up/Referrals: Margaux Eduardo MD [Physician] - Campbell Shin MD [Physician] - Sarbjit Lai MD [Primary Care Provider] - Discharge Medications: Continued Repatha SureClick 140 mg/mL pen injector 140 mg subcut Q14D divalproex [Depakote] 500 mg tablet,delayed release (DR/EC) 500 mg PO HS insulin lispro [Humalog KwikPen Insulin] 100 unit/mL insulin pen 14 unit subcut .tidac MDD 60 90 Days Qty: 54 1RF Rx Instructions: 14 units tid ac with a sliding scale For blood sugars 150-200- take 2 unit 201- 250- take 4 units 251 - 300- take 6 units 301- 350- take 8 units 351 - 400- take 10 units more than 401- take 12 units omeprazole 40 mg capsule,delayed release(DR/EC) 40 mg PO DAILY Qty: 30 2RF Rx Instructions: take 1 capsule q.a.m. on empty stomach and wait 15 minutes to eat or drink PreserVision AREDS-2 250-90-40-1 mg Tablet,Chewable 1 tablet PO Q12H calcium carbonate-vitamin D3 600 mg-5 mcg (200 unit) Tablet 1 tablet PO DAILY vitamin B complex Tablet 1 tablet PO DAILY bumetanide 2 mg tablet 2 mg PO Q12H nystatin 100,000 unit/gram ointment 1 applic topical BID PRN (Reason: Rash) Rx Instructions: apply to groin area levothyroxine [Euthyrox] 75 mcg tablet 75 mcg PO 0630 famotidine 20 mg tablet 20 mg PO HS gabapentin [Neurontin] 100 mg capsule 100 mg PO Q8H memantine 10 mg tablet 10 mg PO Q12H venlafaxine [Effexor XR] 75 mg Capsule,Extended Release 24hr 125 mg PO DAILY carvedilol 6.25 mg tablet 6.25 mg PO DAILY allopurinol 100 mg tablet 100 mg PO DAILY Rx Instructions: TAKE 1 TABLET BY MOUTH EVERY DAY pramipexole 0.25 mg tablet 0.25 mg PO BID buspirone 15 mg tablet 15 mg PO DAILY bupropion HCl 150 mg tablet extended release 24 hr 150 mg PO DAILY Eliquis 5 mg tablet 5 mg PO Q12H Qty: 90 4RF insulin glargine U-300 conc [Toujeo Max U-300 SoloStar] 300 unit/mL (3 mL) insulin pen 45 unit subcut DAILY 90 Days Qty: 15 1RF isosorbide dinitrate 10 mg tablet 10 mg PO Q12H Qty: 90 1RF amiodarone 200 mg tablet 200 mg PO HS Qty: 30 4RF mupirocin 2 % ointment 1 applic topical BID Qty: 22 0RF Held trospium 20 mg tablet 20 mg PO Q12H Qty: 30 1RF Hold Instructions: until seen by her primary care provider No Action (DME) blood-glucose meter [Blood Glucose Monitoring] Kit See Rx Instructions .ROUTE .MEDSUPPLY Qty: 1 0RF Rx Instructions: As directed Date of admission: 07/21/24 10:47 Primary Care Provider: Sarbjit Lai Admitting Provider: Kalee Mccoy Attending physician on admission: Kalee Mccoy Condition: Stable
--- NOTE | 2024-07-29 14:40 | PM.PNCARD ---
Progress Note: A&P Assessment and Plan (1) Acute on chronic heart failure with preserved ejection fraction (HFpEF, >= 50%): Code(s): I50.33 - Acute on chronic diastolic (congestive) heart failure Status: Acute (2) Coronary artery disease: Code(s): I25.10 - Atherosclerotic heart disease of [place] coronary artery without angina pectoris Status: Acute (3) Atrial fibrillation: Qualifiers: Atrial fibrillation type: unspecified Qualified Code(s): I48.91 - Unspecified atrial fibrillation Code(s): I48.91 - Unspecified atrial fibrillation Status: Acute Assessment and Plan: - On Apixaban Plan 78-year-old woman with CAD status post multivessel PCI, HFpEF, paroxysmal atrial fibrillation, hypertension, and hyperlipidemia presented with worsening shortness of breath, orthopnea, and lower extremity swelling consistent with acute on chronic diastolic heart failure 1. Acute on chronic diastolic heart failure -suspect she has developed ATN from the intravenous diuresis - Will continue to hold IV bumex - Consider Nephro evaluation 2. CAD status post multivessel PCI - On PCSK9, imdur - on ASA 81 mg 3. Paroxysmal atrial fibrillation -continue carvedilol 6.25 mg p.o. b.i.d., amiodarone 200 mg p.o. daily, and Eliquis 5 mg p.o. b.i.d. 4. Hypertension -continue amlodipine 10 mg p.o. daily with goal systolic blood pressure less than 130mmHg -continue Isordil 10 mg b.i.d. and carvedilol 6.25 mg p.o. b.i.d. -should systolic blood pressure be above goal, isosorbide dinitrate can be increased to 20 mg p.o. b.i.d. 5. Hyperlipidemia -continue Repatha as an outpatient Addendum: The patient wants to be discharged home. Nephrology evaluated her and is recommending discharge on bumex 1 mg PO BID, previous home dose was 2 mg PO BID - BMP on Thursday if the patient is discharged Subjective Date/time seen: 07/29/24 14:40 Interval history: Feels better Undergoing PT/OT Creatinine minimally decreased to 3.1 from 3,.2, has been positive 1000 mL since past 3 days Exam Const: General: comfortable, no acute distress, alert and awake Orientation/consciousness: patient oriented x3 HENMT: Head: normal to inspection Mouth: Yes moist mucous membranes Eyes: General: appearance normal, both eyes and all related structures Sclera: sclerae normal Pupils: Equal, round and reactive pupils present EOM: EOMs intact bilaterally Neck: Neck: normal visual inspection, supple and no JVD Carotids: normal carotid upstroke Resp: Effort & Inspection: normal respiratory effort Auscultation: clear to auscultation bilaterally and rales bilateral Cardio: Rate: regular rate Rhythm: regular rhythm and abnormal rhythm Heart sounds: S1 normal heart sound present, S2 normal heart sound present and no murmurs Other: + Bilateral lower extremity edema GI: Auscultation: normal bowel sounds Skin: General skin exam: normal color and lesion Lesions: lesion noted Other: redness and erythema bilateral lower legs Neuro: General: patient oriented x3 Cranial nerves: Yes Equal, round and reactive pupils present Speech: normal speech Extrem: General: abnormal to inspection, edema and pedal edema Psych: Appearance: grossly normal Mental Status: mental status grossly normal Affect: normal affect Objective Data Vital Signs Vital Signs: Vital Signs - 24 hr 07/28/24 16:45 07/28/24 20:39 07/28/24 20:40 Temperature 36.5 C Pulse Rate 66 77 74 Respiratory Rate 18 Blood Pressure 128/60 130/44 L Pulse Oximetry 100 97 Oxygen Delivery 07/28/24 22:30 07/29/24 02:05 07/29/24 04:40 Temperature 37.0 C Pulse Rate 72 Respiratory Rate 18 Blood Pressure 162/57 H Pulse Oximetry 97 Oxygen Delivery Room Air Room Air 07/29/24 08:53 Temperature Pulse Rate 74 Respiratory Rate Blood Pressure Pulse Oximetry Oxygen Delivery Intake/Output Intake/Output: Intake & Output 07/26/24 07/27/24 07/28/24 07/29/24 23:59 23:59 23:59 23:59 Intake Total 1617 860 960 437 Output Total 812 129 3064 100 Balance 667 535 -190 337 Meds/Results Medications: Active Medications Generic Name Dose Route Start Last Admin Trade Name Freq PRN Reason Stop Dose Admin Acetaminophen 650 mg 07/22/24 22:48 07/29/24 10:20 Acetaminophen 325 Mg Tablet PO 650 mg Q4H PRN Administration pain 6 or less Allopurinol 100 mg 07/22/24 09:00 07/29/24 08:54 Allopurinol 100 Mg Tablet PO 100 mg DAILY NICOLE Administration Amiodarone HCl 200 mg 07/21/24 21:00 07/28/24 20:39 Amiodarone Hcl 200 Mg Tablet PO 200 mg HS NICOLE Administration Amlodipine Besylate 10 mg 07/21/24 10:55 07/29/24 08:53 Amlodipine Besylate 10 Mg Tablet PO 10 mg DAILY NICOLE Administration Apixaban 5 mg 07/21/24 10:55 07/29/24 08:52 Apixaban 5 Mg Tablet PO 5 mg Q12HR NICOLE Administration Aspirin 81 mg 07/26/24 09:00 07/29/24 08:51 Aspirin 81 Mg Enteric Tablet PO 81 mg QAM NICOLE Administration Bumetanide 2 mg 07/21/24 17:00 07/24/24 08:16 Bumetanide Inj 2.5 Mg/10 Ml Vial IV PUSH 2 mg BID NICOLE Administration Bupropion HCl 150 mg 07/22/24 09:00 07/29/24 08:51 Bupropion Hcl Xl (24 Hr) 150 Mg Tabcr PO 150 mg DAILY NICOLE Administration Buspirone HCl 15 mg 07/22/24 09:00 07/29/24 08:53 Buspirone Hcl 5 Mg Tablet PO 15 mg DAILY NICOLE Administration Calcium Carbonate 500 mg 07/22/24 09:00 07/29/24 08:54 Calcium/Vitamin D 500 Mg/5 Mcg (200 I.U.) Tablet PO 500 mg DAILY NICOLE Administration Carvedilol 6.25 mg 07/22/24 09:00 07/29/24 08:53 Carvedilol 6.25 Mg Tablet PO 6.25 mg DAILY NICOLE Administration Dextrose 12.5 gm 07/21/24 11:05 Dextrose 50% 25 Gm/50 Ml Syringe IV PUSH PRN PRN Hypoglycemia Protocol Divalproex Sodium 500 mg 07/21/24 21:00 07/28/24 20:[address] 250 Mg Tabec PO 500 mg HS NICOLE Administration Empagliflozin 10 mg 07/23/24 09:00 07/29/24 08:52 Empagliflozin 10 Mg Tablet PO 10 mg DAILY NICOLE Administration Famotidine 20 mg 07/21/24 21:00 07/28/24 20:39 Famotidine 20 Mg Tablet PO 20 mg HS NICOLE Administration Gabapentin 100 mg 07/21/24 14:00 07/29/24 05:38 Gabapentin 100 Mg Capsule PO 100 mg Q8HR NICOLE Administration Glucagon 1 mg 07/21/24 11:05 Glucagon For Inj 1 Mg Vial IM PRN PRN Hypoglycemia Protocol Glucose 15 gm 07/21/24 11:05 Glucose Oral Gel 15 Gm Of Glucse In 37.5 Gm Tube PO PRN PRN Hypoglycemia Protocol Hydralazine HCl 10 mg 07/21/24 10:56 Hydralazine Hcl 20 Mg/Ml Vial IV PUSH Q6H PRN Blood Pressure - High Dextrose 1,000 mls @ 100 mls/hr 07/21/24 11:05 Dextrose 5% 1,000 Ml IVPB PRN PRN Hypoglycemia Protocol Insulin Aspart 4 - 8 units 07/21/24 12:00 07/29/24 11:49 Insulin Aspart (*Bkc) 100 Units/Ml SUB-Q Not Given TIDWM [facility] Protocol Insulin Aspart 2 - 4 units 07/21/24 21:00 07/28/24 20:48 Insulin Aspart (*Bkc) 100 Units/Ml SUB-Q Not Given HS [facility] Protocol Insulin Aspart 12 units 07/21/24 17:20 07/29/24 12:00 Insulin Aspart (*Bkc) 100 Units/Ml SUB-Q 12 units ACINSULIN NICOLE Administration Isosorbide Dinitrate 10 mg 07/21/24 10:55 07/29/24 08:52 Isosorbide Dinitrate 10 Mg Tablet PO 10 mg Q12HR NICOLE Administration Levothyroxine Sodium 75 mcg 07/22/24 06:30 07/29/24 05:38 Levothyroxine Sodium 75 Mcg Tablet PO 75 mcg 0630 NICOLE Administration Melatonin 5 mg 07/23/24 00:59 07/23/24 21:51 Melatonin 5 Mg Tablet PO 5 mg HS PRN Administration Sleep Memantine 10 mg 07/21/24 10:55 07/29/24 08:51 Memantine 10 Mg Tablet PO 10 mg Q12HR NICOLE Administration Menthol/Methyl Salicylate 1 applic 07/23/24 15:52 07/29/24 10:22 Menthol 10% / Methyl Salicylate 15% 57 Gm Tube TOPICAL 1 applic BID PRN Administration Muscle/Joint Pain Multivitamins/Minerals 1 tablet 07/21/24 11:15 07/29/24 08:52 Opti-Gen Tab PO 1 tablet Q12HR NICOLE Administration Mupirocin 1 applic 07/21/24 21:00 07/29/24 08:54 Mupirocin 2% Oint 22 Gm Tube TOPICAL 1 applic Q12HR NICOLE Administration Non-Formulary ( 0 each 07/21/24 17:25 07/21/24 17:55 Evolocumab 140 Mg/Ml SUB-Q 08/20/24 17:24 1 each Subcutaneous Pen Q14D@0900 NICOLE Administration Injector) Non-Formulary ( 1 each 07/21/24 21:00 07/29/24 08:46 Trospium Chloride 20 PO 08/20/24 20:59 1 each Mg Oral Tablet) Q12HR NICOLE Administration Non-Formulary ( 0 each 07/22/24 09:00 07/29/24 08:38 Insulin Glargine, SUB-Q 08/21/24 08:59 45 each Human Recombinant DAILY NICOLE Administration Analog 300 Unit/Ml ( 3 Ml) Subcut...) Nystatin 1 applic 07/21/24 10:52 Nystatin Ointment 15 Gm Tube TOPICAL BID PRN Rash Pantoprazole Sodium 40 mg 07/21/24 21:00 07/29/24 08:54 Pantoprazole 40 Mg Tablet PO 40 mg Q12HR NICOLE Administration Pramipexole Dihydrochloride 0.25 mg 07/21/24 21:00 07/29/24 08:52 Pramipexole 0.25 Mg Tablet PO 0.25 mg Q12H NICOLE Administration Vitamin B Complex 1 cap 07/22/24 09:00 07/29/24 08:51 Vitamin B Complex Capsule PO 1 cap DAILY NICOLE Administration Radiology Results: ITS Impressions Chest X-Ray 07/20/24 16:47 IMPRESSION: Moderate right and small left-sided pleural effusions, an interval change from previous examination. No focal infiltrate Labs Labs: Laboratory Results - last 24 hr 07/28/24 07/28/24 07/29/24 16:26 20:41 06:42 WBC 9.2 RBC 3.08 L Hgb 8.4 L Hct 28.3 L MCV 91.9 MCH 27.3 MCHC 29.7 L RDW 15.9 H Plt Count 310 MPV 9.5 Immature Gran % (Auto) 0.2 Neut % (Auto) 60.7 Lymph % (Auto) 20.8 [place] % (Auto) 8.1 Eos % (Auto) 9.5 H Baso % (Auto) 0.7 Lymph # (Auto) 1.92 [place] # (Auto) 0.8 H Eos # (Auto) 0.9 H Baso # (Auto) 0.1 Abs Immat Gran (auto) 0.02 Absolute Neuts (auto) 5.6 Absolute Nucleated RBC 0.000 Nucleated RBC % 0.0 Platelet Estimate Adequate Hypochromasia 1+ Schistocytes None seen Sodium 142 Potassium 3.9 Chloride 102 Carbon Dioxide 33 H Anion Gap 7 BUN 45 H Creatinine 3.10 H Estim Creat Clear Calc 18 Estimated GFR 15 L Glucose 89 POC Capillary Glucose 142 H 113 H Calcium 9.1 Total Bilirubin 0.3 AST 17 ALT 10 Alkaline Phosphatase 95 Total Protein 7.0 Albumin 3.4 L 07/29/24 07/29/24 07:29 11:27 WBC RBC Hgb Hct MCV MCH MCHC RDW Plt Count MPV Immature Gran % (Auto) Neut % (Auto) Lymph % (Auto) [place] % (Auto) Eos % (Auto) Baso % (Auto) Lymph # (Auto) [place] # (Auto) Eos # (Auto) Baso # (Auto) Abs Immat Gran (auto) Absolute Neuts (auto) Absolute Nucleated RBC Nucleated RBC % Platelet Estimate Hypochromasia Schistocytes Sodium Potassium Chloride Carbon Dioxide Anion Gap BUN Creatinine Estim Creat Clear Calc Estimated GFR Glucose POC Capillary Glucose 97 138 H Calcium Total Bilirubin AST ALT Alkaline Phosphatase Total Protein Albumin
== END 2024-07-29 16:37 | disposition home or self-care (01) | DRG 291 ==
LOC: ANHED 23:52 → ANHIMU 07-21 01:17 → ANH3MEDSUR 07-22 12:53
PROVIDERS: Hospitalist; Internal Medicine; Internal Medicine Nephrology; Physician Assistant; Admitting Provider Internal Medicine; Emergency Provider Emergency Medicine; PCP Family Medicine; Visit Provider Family Medicine
DX: I13.0 Hypertensive heart and chronic kidney disease with heart failure and stage 1 through stage 4 chronic kidney disease, or unspecified chronic kidney disease (principal); I50.33 Acute on chronic diastolic (congestive) heart failure; I24.89 Other forms of acute ischemic heart disease; N17.9 Acute kidney failure, unspecified; I16.0 Hypertensive urgency; I25.10 Atherosclerotic heart disease of native coronary artery without angina pectoris; I87.2 Venous insufficiency (chronic) (peripheral); I48.0 Paroxysmal atrial fibrillation; N18.32 Chronic kidney disease, stage 3b; D64.9 Anemia, unspecified; E11.22 Type 2 diabetes mellitus with diabetic chronic kidney disease; E11.42 Type 2 diabetes mellitus with diabetic polyneuropathy; E03.9 Hypothyroidism, unspecified; E78.2 Mixed hyperlipidemia; M17.9 Osteoarthritis of knee, unspecified; M51.369 Other intervertebral disc degeneration, lumbar region without mention of lumbar back pain or lower extremity pain; G25.81 Restless legs syndrome; G47.33 Obstructive sleep apnea (adult) (pediatric); H35.30 Unspecified macular degeneration; F41.9 Anxiety disorder, unspecified; Z96.641 Presence of right artificial hip joint; Z85.3 Personal history of malignant neoplasm of breast; Z79.01 Long term (current) use of anticoagulants; Z95.5 Presence of coronary angioplasty implant and graft
CPT/HCPCS: 36415; 71046; 80048; 80053; 82948; 83690; 83735; 83880; 84484; 85025; 85380; 85610; 85730; 87086; 93005; 96374; 96376; 97110; 97116; 97161; 97165; 97530; 97535; 99199; 99285; A9270; G0378; J1815; J1939; J1940

== ENCOUNTER 2024-08-06 12:41 | Inpatient (IN) | payer MEDICARE, SELFPAY ==
[2024-08-06] VITALS (27 sets, daily range): BP systolic 119–164; BP diastolic 50–86; PULSE 67–79; RESP 16–22; TEMP 36.4–36.6; O2SAT 91–100; BMI 43.9
--- NOTE | ~2024-08-06 | CT_ITS ---
EXAMINATION: CT diagnostic chest wo con DATE: 08/06/2024 15:10 INDICATION: Hypoxia - pna vs CHF TECHNIQUE: Computed tomography (CT) of the chest was performed with 100 mL Omnipaque-350 intravenous contrast. Automated exposure control and iterative reconstruction technique were employed. The dose-l ength product was 727.23 mGy-cm. COMPARISON: X-ray chest, same date. FINDINGS: CHEST: Thoracic aorta: No significant dilation. Mild arch calcification. Lung parenchyma and airways: Motion artifact in the lung bases. Bilateral dependent atelectasis. Narr owing of the AP tracheal diameter and distal bronchi, likely representing acquired tracheomalacia. Mo derate septal thickening. Scattered patchy areas of groundglass opacity. Thoracic inlet, axillae and chest wall: No thyroid or soft tissue mass. Right breast implant. No axil rhiannon lymphadenopathy. Mediastinum: No mass or lymphadenopathy. Heart and pericardium: Cardiomegaly. Aortic valve and mitral calcification. No pericardial effusion. Coronary artery calcifications: Moderate. Coronary stents. Pleura: Trace bilateral pleural fluid collections. Upper abdomen: No significant finding. Status post cholecystectomy. Thoracic bones: No acute osseous finding in the chest. IMPRESSION: Moderate interstitial pulmonary edema. Trace bilateral pleural effusions. Reviewed, dictated and finalized at location K. RATING AND ASSEMBLY SUPERVISOR
--- NOTE | ~2024-08-06 | XR_ITS ---
EXAMINATION: XR chest 1V portable DATE: 08/11/2024 13:17 INDICATION: Increased oxygen requirement. TECHNIQUE: A single frontal view of the chest was obtained. COMPARISON: Chest single view 08/06/2024, chest CT 08/06/2024 FINDINGS: There are airspace opacities in the lower lung zones. There are small pleural effusions. No pneumothorax. The heart size is normal. IMPRESSION: 1. Airspace opacities in the lower lung zones with worsening on the left, consistent with atelectasis versus pneumonia. 2. Worsened small pleural effusions. Reviewed, dictated and finalized at location A. NT SERVICES VICE PRESIDENT IMPRESSION: 1. Airspace opacities in the lower lung zones with worsening on the left, consi stent with atelectasis versus pneumonia. 2. Worsened small pleural effusions.
--- NOTE | ~2024-08-06 | CT_ITS ---
EXAMINATION: CT brain wo con DATE: 08/13/2024 18:45 INDICATION: Altered mental status. TECHNIQUE: Computed tomography (CT) of the head was performed without intravenous contrast. The mA wa s adjusted according to patient size. Iterative reconstruction technique was employed. The dose-lengt h product was 605.33 mGy-cm. COMPARISON: Head CT 04/04/2024 FINDINGS: There are scattered areas of low attenuation in the cerebral white matter, which is within normal limits for the patient's age. There is no intracranial hemorrhage, acute infarction, or abnorm al intracranial mass lesion. The ventricles are normal in size. There are likely changes of ocular le ns replacement surgeries. There is mild mucosal thickening in the ethmoid sinuses. The mastoid air ce lls are normal. IMPRESSION: 1. Normal aging brain. Reviewed, dictated and finalized at location A. CLERK IMPRESSION: 1. Normal aging brain.
--- NOTE | ~2024-08-06 | XR_ITS ---
Portable chest x-ray Comparison: 08/11/2024 Clinical History: Cough and Findings: Probable minimal pleural effusions. Cardiomediastinal silhouette is stable. Bones and sof t tissues are unremarkable. Impression: Minimal pleural effusions. Stable cardiomegaly. Reviewed, dictated and finalized at [facility]. AZZO FINISHER HELPER Impression: Minimal pleural effusions. Stable cardiomegaly.
--- NOTE | ~2024-08-06 | US_ITS ---
EXAMINATION: US renal BI DATE: 08/09/2024 13:34 INDICATION: Acute on chronic kidney disease. TECHNIQUE: Multiple ultrasound grayscale images of the kidneys were obtained. COMPARISON: Ultrasound 10/08/2023, CT abdomen and pelvis 07/22/2022 FINDINGS: The right kidney measures 11.9 x 5.2 x 4.7 cm. The left kidney measures 11.2 x 5.7 x 5.1 cm. The kidn eys demonstrate normal parenchymal echogenicity. There is no hydronephrosis. The bladder is decompres sed by a Dunn catheter. IMPRESSION: 1. Normal kidneys. No hydronephrosis. Reviewed, dictated and finalized at location A. Y LEVEL ACCOUNT REPRESENTATIVE
--- NOTE | ~2024-08-06 | XR_ITS ---
MODIFIED ESOPHAGRAM HISTORY: Coughing after by mouth intake. Delayed swallow response. TECHNIQUE: Modified barium esophagram was performed on 08/25/2024. I administered fluoroscopy and per formed the exam with speech pathologist. Patient was seated for lateral fluoroscopic imaging for ing estion of thin liquids, pudding, solids and quantified amounts, followed by thin liquids in uncontrol led amounts. This was recorded on tape. A single fluoroscopic spot image was also recorded. The DAP f or this procedure was 3.2 Gycm2. The amount of fluoroscopy time used during this procedure was 3.0 mi nutes. FINDINGS: Oral stage: Adequate function. Pharyngeal stage: Vallecular residue. There is laryngeal penetration and aspiration with thin and mil dly thickened liquids.. Cervical/esophageal stage: Adequate function. IMPRESSION: Pharyngeal dysphagia with laryngeal penetration and aspiration. Please correlate with sp eech pathologist findings and specific feeding recommendations. Reviewed, dictated and finalized at location A. MBLY LINE UPHOLSTERER IMPRESSION: Pharyngeal dysphagia with laryngeal penetration and aspiration. Pl ease correlate with speech pathologist findings and specific feeding recommenda tions.
--- NOTE | ~2024-08-06 | XR_ITS ---
XR chest 1V portable DATE: 08/06/2024 13:38 INDICATION: Chest pain, shortness of breath, weakness. History of cardiac stents. TECHNIQUE: Portable upright AP chest on 08/06/2024 at 1336 hours COMPARISON: 07/20/2024 AP chest 04/06/2024 PA and lateral chest FINDINGS: There is interstitial prominence of the lungs including Janet B lines, not present on 04/06. These suggest pulmonary interstitial edema or interstitial pneumonitis. Heart size is normal. Coronary artery stent is noted. No hilar or mediastinal enlargement is evident. There is slight blunting of the gastric angle 6. Small pleural effusions are not excluded. No pneumot horax. Cortical irregularity at the proximal medial humeral shaft is included at the left lateral margin, th e humerus incompletely visualized. This appears to be chronic, as a similar irregularity is noted at the very corner of the radiograph on the frontal chest radiographic examination of 07/11/2022. This ma y be an old humeral shaft fracture. Degenerative spurring of the thoracic spine. IMPRESSION: Interstitial prominence suggesting pneumonitis or pulmonary interstitial edema. Possible minimal pleural effusions Normal heart size Coronary stent Reviewed, dictated and finalized at location A. YER AUTO PARTS IMPRESSION: Interstitial prominence suggesting pneumonitis or pulmonary interst itial edema. Possible minimal pleural effusions Normal heart size Coronary stent
--- NOTE | 2024-08-06 12:48 | ECG_ITS ---
Test Date: 2024-08-06 12:50:50 Measurements Intervals [place] Rate: 76 P: 79 PA: 194 QRS: 48 QRSD: 96 T: 47 QT: 397 QTc: 447 Interpretive Statements SINUS RHYTHM BASELINE ARTIFACT- I, II, III, AVR, AVL, AVF, V1, V4-V5 NORMAL ECG Compared to ECG 07/20/2024 16:29:41 No significant changes Electronically Signed On 08-06-2024 14:05:25 [employer] DELI MANAGER by Anupam Mcdowell D.O.
--- NOTE | 2024-08-06 13:05 | ECG_ITS ---
Test Date: 2024-08-06 13:08:39 Measurements Intervals [place] Rate: 75 P: 95 [place]: 181 QRS: 49 QRSD: 93 T: 49 QT: 405 QTc: 455 Interpretive Statements SINUS RHYTHM BASELINE ARTIFACT- I, II, III, AVR, AVL, AVF, V1-V2 NORMAL ECG Compared to ECG 08/06/2024 12:50:50 No significant changes Electronically Signed On 08-06-2024 14:05:42 [employer]ICYLIC ACID BLENDER by Anupam Mcdowell D.O.
[2024-08-06] MEDS: NITROGLYCERIN SL 0.4 MG TABLET SUBLINGUAL (13:09)
[2024-08-06 13:12] LABS: Basophils Percent Auto 0.3 % (0.2-1.2); Eosinophils Absolute Auto 0.5 K/mm3 (0-0.3); Eosinophils Percent Auto 4.3 % (0-4.4); Hematocrit 29.2 % (37.0-47.0); Hemoglobin 8.7 g/dL (12.0-15.0); Immature Granulocyte Absolute 0.06 K/mm3 (0.00-0.031); Immature Granulocyte Percent A 0.5 % (0-0.5); Lymphocytes Percent Auto 8.7 % (18.3-44.2); Mean Corpuscular HGB Conc 29.8 g/dl (32-36); Mean Corpuscular Hemoglobin 27.6 pg (26-34); Mean Corpuscular Volume 92.7 fl (80-100); Mean Platelet Volume 9.1 fl (7.4-10.4); Monocytes Absolute Auto 0.7 K/mm3 (0.1-0.6); Monocytes Percent Auto 5.4 % (2.6-8.5); Neutrophils Absolute Auto 10.3 K/mm3 (1.3-6.7); Neutrophils Percent Auto 80.8 % (45.5-73.1); Platelet Count Result 321 k/mm3 (150-375); Red Blood Count 3.15 M/mm3 (4.2-5.4); Red Cell Distribution Width 16.8 % (11.5-14.5); White Blood Count 12.7 K/mm3 (4.5-10.0)
--- NOTE | 2024-08-06 13:30 | PC.NURSE ---
1309 first nitro was given. 8/10 chest pressure 1314 second nitro was given. 7/10 chest pressure 1319 third nitro was given. 7/10 chest pressure 1324 pt says the nitro helped a little but still 7/10 chest pressure
[2024-08-06 13:38] LABS: INR 1.2; Prothrombin Time 15.7 Seconds (11.1-14.7)
[2024-08-06] MEDS: fentaNYL CITRATE INJ (*CRX) 100 MCG/2 ML VIAL IV PUSH (13:38)
[2024-08-06 13:39] LABS: Alanine Aminotransferase 15 U/L (6-35); Albumin Level 3.8 g/dL (3.5-5.1); Alkaline Phosphatase 108 U/L (38-126); Anion Gap 6 mmol/L (4-12); Aspartate Amino Transferase 31 U/L (14-36); Bilirubin,Total 0.5 mg/dL (0.2-1.3); Blood Urea Nitrogen 35 mg/dL (7-17); Calcium 8.9 mg/dL (8.4-10.2); Carbon Dioxide 25 mmol/L (22-30); Chloride 109 mmol/L (98-107); Estimated CRCL calculation 19 ml/min; Estimated Glomerular Filt Rate 16; Glucose 106 mg/dL (65-110); Magnesium 2.6 mg/dL (1.6-2.3); Partial Thromboplastin Time 31.8 Seconds (22.3-36.8); Potassium 4.3 mmol/L (3.4-5.0); Sodium 140 mmol/L (137-145)
[2024-08-06 13:48] LABS: NT Pro B Type Natriuretic Pept 1560 pg/mL (19.9-100); Troponin I < 0.012 ng/mL (0.000-0.034)
[2024-08-06 13:56] LABS: Hypochromasia 1+; Platelet Estimate Adequate (Adequate)
[2024-08-06 13:57] LABS: Anisocytosis 1+; Schistocytes None Seen; Stomatocytes 1+
--- NOTE | 2024-08-06 14:53 | ED_ITS ---
HPI - General Adult General Chief complaint: Shortness of Breath/Dyspnea Stated complaint: CP, SOB Time Seen by Provider: 08/06/24 12:49 History of Present Illness HPI narrative: This is a 78-year-old female presenting ED with chief complaint of chest pain. Patient says she developed chest pain at 5:00 a.m.. Chest pain is at the center chest and radiates to her left arm into her jaw. It is associated with shortness of breath. There is no vomiting diaphoresis or exertional component. Patient is denying fevers chills or productive cough. she was discharged 1 week ago from the hospital but has been unable to fill her Bumex prescription and has not been taking water pill. Related Data Home Medications Medication Instructions Recorded Confirmed divalproex 500 mg tablet,delayed 500 mg PO HS 03/06/22 07/21/24 release (Depakote) vit C 250 mg-E 90 mg-zinc 40 1 tablet PO Q12H 03/27/23 07/21/24 mg-copper 1 [id number] chew tablet (PreserVision AREDS-2) evolocumab 140 mg/mL subcutaneous 140 mg subcut Q14D 07/13/23 07/21/24 pen injector (Narda Bernard) bumetanide 2 mg tablet 2 mg PO Q12H 04/04/24 07/21/24 calcium 600 mg (as 1 tablet PO DAILY 04/04/24 07/21/24 carbonate)-vitamin D3 5 mcg (200 unit) tablet famotidine 20 mg tablet 20 mg PO HS 04/04/24 07/21/24 gabapentin 100 mg capsule 100 mg PO Q8H 04/04/24 07/21/24 (Neurontin) levothyroxine 75 mcg tablet 75 mcg PO 0630 04/04/24 07/21/24 (Euthyrox) memantine 10 mg tablet 10 mg PO Q12H 04/04/24 07/21/24 nystatin 100,000 unit/gram topical 1 applic topical BID PRN Rash 04/04/24 07/21/24 ointment vitamin B complex 1 tablet PO DAILY 04/04/24 07/21/24 allopurinol 100 mg tablet 100 mg PO DAILY 07/21/24 07/21/24 bupropion HCl 150 mg 24 hr tablet, 150 mg PO DAILY 07/21/24 07/21/24 extended release buspirone 15 mg tablet 15 mg PO DAILY 07/21/24 07/21/24 carvedilol 6.25 mg tablet 6.25 mg PO DAILY 07/21/24 07/21/24 pramipexole 0.25 mg tablet 0.25 mg PO BID 07/21/24 07/21/24 venlafaxine 75 mg capsule,extended 125 mg PO DAILY 07/21/24 07/21/24 release 24 hr (Effexor XR) Allergies Allergy/AdvReac Type Severity Reaction Status Date / Time [id number]-[id number] Reductase Allergy Intermediate Other Verified 08/06/24 13:37 Inhibitor pseudoephedrine Allergy Unknown Hives Verified 08/06/24 13:37 NSAIDS (Non-Steroidal AdvReac Intermediate Other Verified 08/06/24 13:37 Anti-Inflamma oxycodone AdvReac Intermediate Itching Verified 08/06/24 13:37 atenolol AdvReac Mild Muscle Pain Verified 08/06/24 13:37 exenatide [From Bydureon] AdvReac Mild Diarrhea Verified 08/06/24 13:37 hydrocodone AdvReac Mild Itching Verified 08/06/24 13:37 [From Panlor (hydrocodone-acetamin)] prochlorperazine AdvReac Mild Itching Verified 08/06/24 13:37 [From Compazine] rice AdvReac Mild Heartburn Verified 08/06/24 13:37 [facility] Past Medical History Medical History (Updated 08/06/24 @ 15:56 by Roberto Capone MD) Anemia Anxiety Ataxia Breast cancer Chronic anticoagulation Degeneration of lumbar or lumbosacral intervertebral disc Depression Diabetes mellitus type 2 in obese (~1989) A1c 10 on July 21, 2022 Diabetic peripheral neuropathy Diastolic heart failure Echocardiogram 05/2022: Normal left ventricular systolic function EF 65-70%, mildly increased left ventricular wall thickness, diastolic dysfunction grade 2, moderately elevated E/E 20, increased global longitudinal strain and-18%, mild mitral valve regurgitation, mild tricuspid regurgitation, moderate pulmonary hypertension with RVSP of 46. Dysphagia Hypertension Hypothyroidism Knee osteoarthritis Macular degeneration Minimal cognitive impairment Mixed hyperlipidemia Obstructive sleep apnea on CPAP Paroxysmal atrial fibrillation Restless leg syndrome Skin cancer Stage 3b chronic kidney disease (CKD) Venous stasis dermatitis Surgical History Surgical History (Updated 08/06/24 @ 15:52 by Tara Christianson PA-C) History of cardiac catheterization History of cataract removal with insertion of prosthetic lens History of cholecystectomy History of coronary artery stent placement History of reconstruction of right breast History of right hip replacement (2018) History of right mastectomy Normal esophagogastroduodenoscopy (EGD) Family History Family History Father Hypertension COPD (chronic obstructive pulmonary disease) Heart disease Diabetes mellitus Mother Lung cancer Depression Sibling Acute basophilic leukemia Sepsis Diabetes mellitus Acute myocardial infarction Daughter Depression Drug overdose Sibling No problems noted. Social History Social History Social History: Surrogate medical decision maker: Luis Rome, jayne. Code status: Full code. Smoking status: Never smoker Second hand tobacco smoke exposure: Yes Alcohol intake: never Substance use: never Substance use type: does not use Do You Feel Safe in your Home?: Yes Lack of Transportation: No Lack of Food: Never True Current Housing: I Have Housing Concerned About Future Housing: No Difficulty Paying Gas/Electric Bills: No Difficulty Paying for Meds: No Currently Unemployed: No Education: High School Diploma/GED Difficulty w/ Childcare or Family Care: No Living arrangements: alone Additional living arrangements comments: . Lives alone. Has 2 children, daughter . 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 EYES: EOMI, NOSE: Atraumatic NECK: Trachea midline RESPIRATORY: No increased rate of breathing, bibasilar crackles CARDIOVASCULAR: RRR, no peripheral edema ABDOMINAL: obese, nontender no guarding rebound MUSCULOSKELETAl: No obvious deformities NEURO: Alert. Moving 4/4 extremities SKIN:: Warm, dry. Normal color PSYCHIATRIC: Normal affect Course Vital Signs Vital signs: Vital Signs Temperature 97.6 F 08/06/24 12:38 Pulse Rate 76 08/06/24 12:38 Respiratory Rate 17 08/06/24 12:38 Blood Pressure 143/76 H 08/06/24 12:38 Pulse Oximetry 94 08/06/24 12:38 Oxygen Delivery Non-Rebreather Mask 08/06/24 12:38 Oxygen Flow Rate 15 08/06/24 12:38 Temperature 97.6 F 08/06/24 12:38 Pulse Rate 76 08/06/24 15:49 Respiratory Rate 16 08/06/24 15:49 Blood Pressure 143/76 H 08/06/24 15:49 Pulse Oximetry 96 08/06/24 15:49 Oxygen Delivery Nasal Cannula 08/06/24 13:12 Oxygen Flow Rate 5 08/06/24 13:12 Medical Decision Making MDM Narrative Medical decision making narrative: -Course: 78-year-old female presenting with chest pain and difficulty breath ing. patient given aspirin by EMS and was trialed on nitroglycerin which did not make much difference with her pain. patient given fentanyl with some improvement. She was hypoxic on room air and placed on 5 L nasal cannula with improvement. Point of care ultrasound showed a distended thoracic IVC and edema in the lungs. CT showed pulmonary edema. Patient given a dose of Lasix. EKG without Ischemic changes. initial troponin undetectable. On re-evaluation patient is sleeping comfortably in bed. She will be admitted for further management of her congestive heart failure. -DDX includes but is not limited to: CHF, ACS, pneumonia, viral syndrome -Co-morbidities complicating care: diastolic heart failure chronic kidney disease -External Chart Review: reviewed recent discharge summary -Hx from independent Sources: son at bedside -Independent interpretation of studies: labs and imaging reviewed Independent EKG interpretation: Rhythm [sinus], Rate [75], [place] -[normal], [place] -[normal], QRS [narrow], QTC [normal], T waves -[negative for concerning inversions], ST Segments - [Negative for concerning inversions. Impression: No ischemic changes. -Discussion of Management/Consultants: Michelle -Interventions: aspirin, nitro, fentanyl, Lasix -Shared decision making / Disposition:admitted. Vital Signs Vital Signs: Vital Signs Temperature 97.6 F 08/06/24 12:38 Pulse Rate 76 08/06/24 12:38 Respiratory Rate 17 08/06/24 12:38 Blood Pressure 143/76 H 08/06/24 12:38 Pulse Oximetry 94 08/06/24 12:38 Oxygen Delivery Non-Rebreather Mask 08/06/24 12:38 Oxygen Flow Rate 15 08/06/24 12:38 Temperature 97.6 F 08/06/24 12:38 Pulse Rate 76 08/06/24 15:49 Respiratory Rate 16 08/06/24 15:49 Blood Pressure 143/76 H 08/06/24 15:49 Pulse Oximetry 96 08/06/24 15:49 Oxygen Delivery Nasal Cannula 08/06/24 13:12 Oxygen Flow Rate 5 08/06/24 13:12 Lab Data 08/06/24 13:06 08/06/24 13:06 Labs: Lab Results 08/06/24 Range/Units 13:06 WBC 12.7 H (4.5-10.0) K/mm3 RBC 3.15 L (4.2-5.4) M/mm3 Hgb 8.7 L (12.0-15.0) g/dL Hct 29.2 L (37.0-47.0) % MCV 92.7 (80-100) fl MCH 27.6 (26-34) pg MCHC 29.8 L (32-36) g/dl RDW 16.8 H (11.5-14.5) % Plt Count 321 (150-375) k/mm3 MPV 9.1 (7.4-10.4) fl Immature Gran % (Auto) 0.5 (0-0.5) % Neut % (Auto) 80.8 H (45.5-73.1) % Lymph % (Auto) 8.7 L (18.3-44.2) % [place] % (Auto) 5.4 (2.6-8.5) % Eos % (Auto) 4.3 (0-4.4) % Baso % (Auto) 0.3 (0.2-1.2) % Lymph # (Auto) 1.10 (0.9-3.2) K/mm3 [place] # (Auto) 0.7 H (0.1-0.6) K/mm3 Eos # (Auto) 0.5 H (0-0.3) K/mm3 Baso # (Auto) 0.0 (0.0-0.1) K/mm3 Abs Immat Gran (auto) 0.06 H (0.00-0.031) K/mm3 Absolute Neuts (auto) 10.3 H (1.3-6.7) K/mm3 Absolute Nucleated RBC 0.000 (0.0-0.012) K/mm3 Nucleated RBC % 0.0 (0.0-0.2) % Platelet Estimate Adequate (Adequate) Hypochromasia 1+ Anisocytosis 1+ Stomatocytes 1+ Schistocytes None seen PT 15.7 H (11.1-14.7) Seconds INR 1.2 APTT 31.8 (22.3-36.8) Seconds Sodium 140 (137-145) mmol/L Potassium 4.3 (3.4-5.0) mmol/L Chloride 109 H (98-107) mmol/L Carbon Dioxide 25 (22-30) mmol/L Anion Gap 6 (4-12) mmol/L BUN 35 H D (7-17) mg/dL Creatinine 2.90 H (0.7-1.0) mg/dL Estim Creat Clear Calc 19 ml/min Estimated GFR 16 L (59 - ) Glucose 106 (65-110) mg/dL Calcium 8.9 (8.4-10.2) mg/dL Magnesium 2.6 H (1.6-2.3) mg/dL Total Bilirubin 0.5 (0.2-1.3) mg/dL AST 31 (14-36) U/L ALT 15 (6-35) U/L Alkaline Phosphatase 108 (38-126) U/L Troponin I < 0.012 (0.000-0.034) ng/mL NT-Pro-B Natriuret Pep 1560 H (19.9-100) pg/mL Total Protein 7.0 (6.3-8.2) g/dL Albumin 3.8 (3.5-5.1) g/dL Critical Care Time Critical Care Time Critical Care Time: Yes Total Critical Care Time: 35 Discharge Plan Discharge Clinical Impression: Hypoxic respiratory failure, CHF (congestive heart failure), Non compliance w medication regimen, Chest pain Patient Disposition: Still a Patient Condition: Stable Prescriptions: No Action Repatha SureClick 140 mg/mL pen injector 140 mg subcut Q14D divalproex [Depakote] 500 mg tablet,delayed release (DR/EC) 500 mg PO HS insulin lispro [Humalog KwikPen Insulin] 100 unit/mL insulin pen 14 unit subcut .tidac MDD 60 90 Days Qty: 54 1RF Rx Instructions: 14 units tid ac with a sliding scale For blood sugars 150-200- take 2 unit 201- 250- take 4 units 251 - 300- take 6 units 301- 350- take 8 units 351 - 400- take 10 units more than 401- take 12 units omeprazole 40 mg capsule,delayed release(DR/EC) 40 mg PO DAILY Qty: 30 2RF Rx Instructions: take 1 capsule q.a.m. on empty stomach and wait 15 minutes to eat or drink PreserVision AREDS-2 250-90-40-1 mg Tablet,Chewable 1 tablet PO Q12H calcium carbonate-vitamin D3 600 mg-5 mcg (200 unit) Tablet 1 tablet PO DAILY vitamin B complex Tablet 1 tablet PO DAILY bumetanide 2 mg tablet 2 mg PO Q12H nystatin 100,000 unit/gram ointment 1 applic topical BID PRN (Reason: Rash) Rx Instructions: apply to groin area levothyroxine [Euthyrox] 75 mcg tablet 75 mcg PO 0630 famotidine 20 mg tablet 20 mg PO HS gabapentin [Neurontin] 100 mg capsule 100 mg PO Q8H memantine 10 mg tablet 10 mg PO Q12H venlafaxine [Effexor XR] 75 mg Capsule,Extended Release 24hr 125 mg PO DAILY carvedilol 6.25 mg tablet 6.25 mg PO DAILY allopurinol 100 mg tablet 100 mg PO DAILY Rx Instructions: TAKE 1 TABLET BY MOUTH EVERY DAY pramipexole 0.25 mg tablet 0.25 mg PO BID buspirone 15 mg tablet 15 mg PO DAILY bupropion HCl 150 mg tablet extended release 24 hr 150 mg PO DAILY (DME) blood-glucose meter [Blood Glucose Monitoring] Kit See Rx Instructions .ROUTE .MEDSUPPLY Qty: 1 0RF Rx Instructions: As directed Eliquis 5 mg tablet 5 mg PO Q12H Qty: 90 4RF insulin glargine U-300 conc [Toujeo Max U-300 SoloStar] 300 unit/mL (3 mL) insulin pen 45 unit subcut DAILY 90 Days Qty: 15 1RF isosorbide dinitrate 10 mg tablet 10 mg PO Q12H Qty: 90 1RF trospium 20 mg tablet 20 mg PO Q12H Qty: 30 1RF Hold Instructions: until seen by her primary care provider amiodarone 200 mg tablet 200 mg PO HS Qty: 30 4RF mupirocin 2 % ointment 1 applic topical BID Qty: 22 0RF Follow-up/Referrals: Sarbjit Lai MD [Primary Care Provider] -
--- NOTE | 2024-08-06 15:50 | PM.IMHP ---
H&P: HPI History of Present Illness Date/Time: 08/06/24 15:50 Chief Complaint: Shortness of breath and chest pain. Narrative: This is a 78-year-old female with coronary artery disease and history of stents, paroxysmal atrial fibrillation on anticoagulation, diastolic congestive heart failure, pulmonary hypertension, obstructive sleep apnea on CPAP, hypertension, hyperlipidemia, chronic kidney disease, anemia, type 2 diabetes mellitus, memory impairment, C difficile diarrhea, depression, suicide attempt in April 2024, and other comorbidities who presented to the emergency department via EMS from home for evaluation of chest pain and shortness of breath. The patient provides the following history. She gives a several day history of increasing shortness of breath and endorses worsening lower extremity edema and orthopnea. This morning she was increasingly short of breath and had tightness in her chest which was intermittent throughout the day and she came in for evaluation. She denies syncope, near syncope, fever, sore throat, sinus congestion, pleuritic pain, palpitations, productive cough, nausea, vomiting, diarrhea, and dysuria. According to EMS her SpO2 was 84% on room air and she was placed on a non-rebreather at 15 L with some improvement. In the ED: She was afebrile on arrival with stable blood pressures. She was on 5 L nasal cannula at the time my evaluation. Labs were significant for WBC count 12.7, hemoglobin 8.7, BUN 35, creatinine 2.90, troponin less than 0.012, proBNP 1560. Chest CT showed moderate interstitial pulmonary edema and trace bilateral pleural effusions. EKG did not show any acute ST segment changes. She is being admitted in this setting for diuresis. Review of Systems Review of Systems: 12 systems were reviewed and are negative except for as per HPI. [facility] Past Medical History Medical History (Updated 08/06/24 @ 22:05 by Tara Christianson PA-C) Anemia Anxiety Ataxia Breast cancer Chronic anticoagulation Degeneration of lumbar or lumbosacral intervertebral disc Depression Diabetic peripheral neuropathy Diastolic heart failure Echocardiogram 05/2022: Normal left ventricular systolic function EF 65-70%, mildly increased left ventricular wall thickness, diastolic dysfunction grade 2, moderately elevated E/E 20, increased global longitudinal strain and-18%, mild mitral valve regurgitation, mild tricuspid regurgitation, moderate pulmonary hypertension with RVSP of 46. Dysphagia Hypertension Hypothyroidism Knee osteoarthritis Macular degeneration Minimal cognitive impairment Mixed hyperlipidemia Obstructive sleep apnea on CPAP Paroxysmal atrial fibrillation Restless leg syndrome Skin cancer Type 2 diabetes mellitus (1989) Venous stasis dermatitis Surgical History Surgical History History of cardiac catheterization History of cataract removal with insertion of prosthetic lens History of cholecystectomy History of coronary artery stent placement History of reconstruction of right breast History of right hip replacement (2017) History of right mastectomy Normal esophagogastroduodenoscopy (EGD) Family History Family History Father Hypertension COPD (chronic obstructive pulmonary disease) Heart disease Diabetes mellitus Mother Lung cancer Depression Sibling Acute basophilic leukemia Sepsis Diabetes mellitus Acute myocardial infarction Daughter Depression Drug overdose Sibling No problems noted. Social History Social History Social History: Surrogate medical decision maker: Luis Rome, jayne. Code status: Full code. Smoking status: Never smoker Second hand tobacco smoke exposure: Yes Alcohol intake: never Substance use: never Substance use type: does not use Do You Feel Safe in your Home?: Yes Lack of Transportation: No Lack of Food: Never True Current Housing: I Have Housing Concerned About Future Housing: No Difficulty Paying Gas/Electric Bills: No Difficulty Paying for Meds: No Currently Unemployed: No Education: High School Diploma/GED Difficulty w/ Childcare or Family Care: No Living arrangements: alone Additional living arrangements comments: . Lives alone. Has 2 children, daughter . 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 Spiritual care concerns: No Meds Home Medications and Allergies Home Medications Medication Instructions Recorded Confirmed Type divalproex 500 mg tablet,delayed 500 mg PO HS 03/06/22 08/06/24 History release (Depakote) vit C 250 mg-E 90 mg-zinc 40 1 tablet PO Q12H 03/27/23 08/06/24 History mg-copper 1 dx-mgprkn-eiwbki chew tablet (PreserVision AREDS-2) evolocumab 140 mg/mL subcutaneous 140 mg subcut Q14D 07/13/23 08/06/24 History pen injector (Narda Bernard) blood-glucose meter (Blood Glucose #1 ea 02/22/24 08/06/24 Rx Monitoring kit) bumetanide 2 mg tablet 2 mg PO Q12H 04/04/24 08/06/24 History calcium 600 mg (as 1 tablet PO DAILY 04/04/24 08/06/24 History carbonate)-vitamin D3 5 mcg (200 unit) tablet famotidine 20 mg tablet 20 mg PO HS 04/04/24 08/06/24 History gabapentin 100 mg capsule 100 mg PO Q8H 04/04/24 08/06/24 History (Neurontin) levothyroxine 75 [place]cg tablet [place] [address]/04/24 08/06/24 History (Euthyrox) memantine 10 mg tablet 10 mg PO Q12H 04/04/24 08/06/24 History nystatin 100,000 unit/gram topical 1 applic topical BID PRN Rash 04/04/24 08/06/24 History ointment vitamin B complex 1 tablet PO DAILY 04/04/24 08/06/24 History apixaban 5 mg tablet (Eliquis) 5 mg PO Q12H #90 tabs 04/26/24 08/06/24 Rx omeprazole 40 mg capsule,delayed 40 mg PO DAILY laryngopharyngeal 05/03/24 08/06/24 Rx release reflux #30 caps insulin lispro 100 unit/mL 14 unit (0.14 mL) subcut .tidac 90 05/19/24 08/06/24 Rx subcutaneous pen (Humalog KwikPen days #54 mL (U-100) Insulin) insulin glargine U-300 conc 300 45 unit (0.15 mL) subcut DAILY 05/20/24 08/06/24 Rx unit/mL (3 mL) subcutaneous pen days #15 mL (Toujeo Max U-300 SoloStar) isosorbide dinitrate 10 mg tablet 10 mg PO Q12H #90 tabs 05/31/24 08/06/24 Rx amiodarone 200 mg tablet 200 mg PO HS #30 tabs 06/24/24 08/06/24 Rx trospium 20 mg tablet 20 mg PO Q12H #30 tabs 06/24/24 08/06/24 Rx mupirocin 2 % topical ointment 1 applic topical BID #22 grams 07/12/24 08/06/24 Rx allopurinol 100 mg tablet 100 mg PO DAILY 07/21/24 08/06/24 History bupropion HCl 150 mg 24 hr tablet, 150 mg PO DAILY 07/21/24 08/06/24 History extended release buspirone 15 mg tablet 15 mg PO DAILY 07/21/24 08/06/24 History carvedilol 6.25 mg tablet 6.25 mg PO DAILY 07/21/24 08/06/24 History pramipexole 0.25 mg tablet 0.25 mg PO BID 07/21/24 08/06/24 History venlafaxine 75 mg capsule,extended 125 mg PO DAILY 07/21/24 08/06/24 History release 24 hr (Effexor XR) Allergies Allergy/AdvReac Type Severity Reaction Status Date / Time Blpoztc-BAV-BmI Reductase Allergy Intermediate Other Verified 08/06/24 13:37 Inhibitor pseudoephedrine Allergy Unknown Hives Verified 08/06/24 13:37 NSAIDS (Non-Steroidal AdvReac Intermediate Other Verified 08/06/24 13:37 Anti-Inflamma oxycodone AdvReac Intermediate Itching Verified 08/06/24 13:37 atenolol AdvReac Mild Muscle Pain Verified 08/06/24 13:37 exenatide [From Bydureon] AdvReac Mild Diarrhea Verified 08/06/24 13:37 hydrocodone AdvReac Mild Itching Verified 08/06/24 13:37 [From Panlor (hydrocodone-acetamin)] prochlorperazine AdvReac Mild Itching Verified 08/06/24 13:37 [From Compazine] rice AdvReac Mild Heartburn Verified 08/06/24 13:37 Vital Signs Vital Signs - 24 hr 08/06/24 12:38 08/06/24 12:56 08/06/24 13:04 Temperature 97.6 F Pulse Rate 76 76 Respiratory Rate 17 20 Blood Pressure 143/76 H 147/75 H Pulse Oximetry 94 96 98 Oxygen Delivery Non-Rebreather Mask Nasal Cannula Oxygen Flow Rate 15 5 08/06/24 13:10 08/06/24 13:12 08/06/24 13:12 Temperature Pulse Rate 76 75 Respiratory Rate 17 Blood Pressure 140/68 Pulse Oximetry 100 100 Oxygen Delivery Nasal Cannula Oxygen Flow Rate 5 08/06/24 13:16 08/06/24 13:20 08/06/24 13:25 Temperature Pulse Rate 76 74 74 Respiratory Rate 22 H 19 19 Blood Pressure 144/79 H 132/60 122/55 L Pulse Oximetry 98 98 96 Oxygen Delivery Oxygen Flow Rate 08/06/24 13:22 08/06/24 13:27 08/06/24 13:37 Temperature Pulse Rate 74 74 74 Respiratory Rate 19 17 16 Blood Pressure 132/60 122/55 L 127/58 L Pulse Oximetry 95 98 96 Oxygen Delivery Oxygen Flow Rate 08/06/24 13:42 08/06/24 13:45 08/06/24 13:38 Temperature Pulse Rate 74 74 74 Respiratory Rate 18 19 20 Blood Pressure 131/59 L 122/64 124/86 Pulse Oximetry 97 95 96 Oxygen Delivery Oxygen Flow Rate Exam Narrative: General: Chronically ill-appearing female in the semi-Rdz position in bed. Weight: 119.9 kg. BMI: 44.0. HEENT: PERRL, EOMI. Sclera anicteric. Tacky mucous membranes. Neck: Supple. No significant JVD. Respiratory: Respirations are nonlabored and she is speaking in full sentences. Currently on 5 L nasal cannula. Lung sounds are diminished at the bases with scattered crackles. Cardiovascular: Regular rate and rhythm with S1-S2. Gastrointestinal: Abdomen is soft, obese, nontender, and nondistended with positive bowel sounds. Skin: Warm and dry. Mild erythema of the lower legs due to chronic edema and venous stasis. Extremities: No cyanosis or clubbing. Bilateral lower extremity pitting edema. No palpable knots or cords. Negative Naa sign bilaterally. Peripheral pulses palpable. Neurological: Alert and oriented. Cranial nerves 2-12 are grossly intact. No gross focal deficits to casual conversation. Psychiatric: Pleasant and cooperative with appropriate mood. Seems forgetful at times. H&P: Results Labs Labs: Short CBC 08/06/24 Range/Units 13:06 WBC 12.7 H (4.5-10.0) K/mm3 Hgb 8.7 L (12.0-15.0) g/dL Hct 29.2 L (37.0-47.0) % Plt Count 321 (150-375) k/mm3 BMP 08/06/24 13:06 Sodium 140 Potassium 4.3 Chloride 109 H Carbon Dioxide 25 BUN 35 H D Creatinine 2.90 H Glucose 106 Calcium 8.9 Cardiac Enzymes 08/06/24 Range/Units 13:06 Troponin I < 0.012 (0.000-0.034) ng/mL Liver Function 08/06/24 Range/Units 13:06 Total Bilirubin 0.5 (0.2-1.3) mg/dL AST 31 (14-36) U/L ALT 15 (6-35) U/L Alkaline Phosphatase 108 (38-126) U/L Albumin 3.8 (3.5-5.1) g/dL Impressions Chest X-Ray 08/06/24 13:45 IMPRESSION: Interstitial prominence suggesting pneumonitis or pulmonary interstitial edema. Possible minimal pleural effusions Normal heart size Coronary stent Chest CT 08/06/24 15:17 IMPRESSION: Moderate interstitial pulmonary edema. Trace bilateral pleural effusions. Assessment and Plan Assessment and plan (1) CHF exacerbation: Code(s): I50.9 - Heart failure, unspecified Status: Acute (2) Acute respiratory failure with hypoxia: Code(s): J96.01 - Acute respiratory failure with hypoxia Status: Acute (3) Anemia: Qualifiers: Anemia type: unspecified type Qualified Code(s): D64.9 - Anemia, unspecified Code(s): D64.9 - Anemia, unspecified Status: Acute (4) Chronic anticoagulation: Code(s): Z79.01 - computer terminal operator (current) use of anticoagulants Status: Acute (5) Chronic kidney disease, stage IV (severe): Code(s): N18.4 - Chronic kidney disease, stage 4 (severe) Status: Chronic (6) Coronary artery disease: Code(s): I25.10 - Atherosclerotic heart disease of [place] coronary artery without angina pectoris Status: Acute (7) Type 2 diabetes mellitus with hyperglycemia, with long-term current use of insulin: Code(s): E11.65 - Type 2 diabetes mellitus with hyperglycemia; Z79.4 - computer terminal operator (current) use of insulin Status: Chronic (8) Obstructive sleep apnea on CPAP: Code(s): G47.33 - Obstructive sleep apnea (adult) (pediatric); Z99.89 - Dependence on other enabling machines and devices Status: Chronic Plan The patient presented to the emergency department for evaluation of increasing shortness of breath and edema over the last several days in addition to orthopnea as detailed in HPI. Labs, imaging, EKG, and all reports were personally reviewed. Clinically she appears have a CHF exacerbation she will be diuresed with close monitoring of volume status, renal function, and electrolytes. She was having some chest discomfort with increased work of breathing earlier today but that has resolved. Pulmonary embolism seems less likely as she is on chronic anticoagulation. EKG was without ST segment changes and troponin has been negative x2. She will be monitored on telemetry overnight. Wean oxygen as tolerated. Renal function and chronic anemia are stable on review of previous labs. CPAP will be provided for the patient to use while hospitalized. Continue basal insulin. Initiate sliding scale insulin, Accu-Cheks, and hypoglycemic protocol. Her home medications will be reviewed and resumed as appropriate. Findings and treatment plan were discussed with the patient. Questions were solicited and answered to satisfaction. The patient's medical management will be taken over by the hospitalist team in a.m. Quality VTE Prophylaxis VTE prophylaxis: pharmacologic ordered (on apixaban) Hospitalist [facility] Advance Care Plan I have confirmed that the patient's Advanced Care Plan is present, code status is documented, or surrogate decision maker is listed in patient medical record.: Yes Medication Reconciliation I have utilized all available resources to obtain, update and review the patients current medications (includes all prescriptions, OTC, herbals, cannabis, and nutritional supplements).: Yes
--- NOTE | 2024-08-06 16:09 | ECG_ITS ---
Test Date: 2024-08-06 16:46:59 Measurements Intervals [place] Rate: 78 P: 0 WI: 0 QRS: 50 QRSD: 97 T: 45 QT: 398 QTc: 454 Interpretive Statements SINUS OR ECTOPIC ATRIAL RHYTHM BASELINE ARTIFACT- I, II, III, AVR, AVL, AVF, V1-V6 BORDERLINE ECG COMPARED WITH PRIOR ECG 08-06-24 13:08 NO SIGNIFICANT CHANGE Electronically Signed On 08-06-2024 16:50:09 ASSISTANT PROFESSOR OF ARCHAEOLOGY by Anupam Mcdowell D.O.
[2024-08-06 16:42] LABS: Troponin I < 0.012 ng/mL (0.000-0.034)
--- NOTE | 2024-08-06 18:17 | ADMGEN ---
This patient, Aleksandra Bermna, was admitted to 3 [facility] Surg Room 316-01. Patient/family oriented to hospital policies and general routines including ID bracelet, bed and alarms, visiting hours, pain management, procedures, bathroom and other care routines, personal items, smoking policy, room service/diet, and visiting hours. Information on how to activate the Rapid Response Team has been discussed. Patient/Family are encouraged to report perceived risks to care and to ask questions if they do not understand what they are told or what they should do.
[2024-08-06] MEDS: ISOSORBIDE DINITRATE 10 MG TABLET PO (22:05)
[2024-08-06] MEDS: DIVALPROEX SODIUM ER 500 MG TAB.24H PO (22:05)
[2024-08-06] MEDS: PRAMIPEXOLE 0.25 MG TABLET PO (22:05)
[2024-08-06] MEDS: APIXABAN 5 MG TABLET PO (22:05)
[2024-08-06] MEDS: AMIODARONE HCL 200 MG TABLET PO (22:05)
[2024-08-06] MEDS: MEMANTINE 10 MG TABLET PO (22:05)
[2024-08-06] MEDS: carvediloL 6.25 MG TABLET PO (22:06)
[2024-08-06] MEDS: BUMETANIDE INJ 1 MG/4 ML VIAL 2 MG IV PUSH (22:06)
[2024-08-06] MEDS: FAMOTIDINE 20 MG TABLET PO (22:06)
[2024-08-06 22:50] LABS: Glucose Point of Care 145 mg/dl (65-105)
[2024-08-07] VITALS (17 sets, daily range): BP systolic 110–115; BP diastolic 42–43; PULSE 62–76; RESP 15–22; TEMP 36.8–36.9; O2SAT 94–100
[2024-08-07] MEDS: LEVOTHYROXINE SODIUM 75 MCG TABLET PO (06:17)
[2024-08-07 06:47] LABS: Hematocrit 27.1 % (37.0-47.0); Mean Corpuscular HGB Conc 29.5 g/dl (32-36); Mean Corpuscular Hemoglobin 27.2 pg (26-34); Mean Corpuscular Volume 92.2 fl (80-100); Mean Platelet Volume 9.3 fl (7.4-10.4); Platelet Count Result 282 k/mm3 (150-375); Red Blood Count 2.94 M/mm3 (4.2-5.4); Red Cell Distribution Width 16.9 % (11.5-14.5); White Blood Count 10.3 K/mm3 (4.5-10.0)
[2024-08-07 07:02] LABS: Anion Gap 4 mmol/L (4-12); Blood Urea Nitrogen 37 mg/dL (7-17); Calcium 8.9 mg/dL (8.4-10.2); Carbon Dioxide 28 mmol/L (22-30); Chloride 108 mmol/L (98-107); Estimated CRCL calculation 18 ml/min; Estimated Glomerular Filt Rate 15; Glucose 127 mg/dL (65-110); Magnesium 2.6 mg/dL (1.6-2.3); Potassium 4.4 mmol/L (3.4-5.0); Sodium 140 mmol/L (137-145)
[2024-08-07 07:54] LABS: Glucose Point of Care 113 mg/dl (65-105)
[2024-08-07 08:23] LABS: Free T4 Free Thyroxine Reflex 1.35 ng/dL (0.78-2.19)
[2024-08-07] MEDS: PRAMIPEXOLE 0.25 MG TABLET PO ×2 (09:19→20:54)
[2024-08-07] MEDS: PANTOPRAZOLE 40 MG TABLET PO ×2 (09:20→20:57)
[2024-08-07] MEDS: MEMANTINE 10 MG TABLET PO ×2 (09:20→20:56)
[2024-08-07] MEDS: GABAPENTIN 100 MG CAPSULE PO ×3 (09:20→16:54)
[2024-08-07] MEDS: VENLAFAXINE HCL 75 MG TABLET BY MOUTH ×2 (09:20→20:54)
[2024-08-07] MEDS: OPTI-GEN TAB 1 TABLET PO ×2 (09:20→20:56)
[2024-08-07] MEDS: CALCIUM/VITAMIN D 500 MG/5 MCG (200 I.U.) TABLET PO (09:20)
[2024-08-07] MEDS: busPIRone HCL 5 MG TABLET 15 MG PO (09:20)
[2024-08-07] MEDS: VITAMIN B COMPLEX CAPSULE 1 CAP PO (09:21)
[2024-08-07] MEDS: ISOSORBIDE DINITRATE 10 MG TABLET PO ×2 (09:21→20:55)
[2024-08-07] MEDS: buPROPion HCL XL (24 HR) 150 MG TABCR PO (09:21)
[2024-08-07] MEDS: APIXABAN 5 MG TABLET PO ×2 (09:21→20:57)
[2024-08-07] MEDS: allopurinoL 100 MG TABLET PO (09:21)
[2024-08-07] MEDS: carvediloL 6.25 MG TABLET PO ×2 (09:22→20:56)
[2024-08-07] MEDS: MUPIROCIN 2% OINT 22 GM TUBE 1 APPLIC TOPICAL ×2 (09:23→16:54)
[2024-08-07] MEDS: BUMETANIDE INJ 1 MG/4 ML VIAL IV PUSH ×2 (09:24→16:54)
--- NOTE | 2024-08-07 09:24 | PM.IMPN ---
Progress Note: A&P Assessment and Plan (1) CHF exacerbation: Code(s): I50.9 - Heart failure, unspecified Status: Acute Assessment and Plan: Clinically she appears have a CHF exacerbation she will be diuresed with close monitoring of volume status, renal function, and electrolytes She was having some chest discomfort with increased work of breathing earlier -but it is all resolved Pulmonary embolism seems less likely as she is on chronic anticoagulation. EKG was without ST segment changes and troponin has been negative x2. She will be monitored on telemetry overnight. Wean oxygen as tolerated. 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) use of anticoagulants Status: Acute (5) Chronic kidney disease, stage IV (severe): Code(s): N18.4 - Chronic kidney disease, stage 4 (severe) Status: Chronic (6) Coronary artery disease: Code(s): I25.10 - Atherosclerotic heart disease of [place] coronary artery without angina pectoris Status: Acute (7) Type 2 diabetes mellitus with hyperglycemia, with long-term current use of insulin: Code(s): E11.65 - Type 2 diabetes mellitus with hyperglycemia; Z79.4 - terminal worker (current) use of insulin Status: Chronic Assessment and Plan: home insulin toujeo- 45 units at , ss14 units of lispro Continue basal insulin. Initiate sliding scale insulin, Accu-Cheks, and hypoglycemic protocol. (8) Obstructive sleep apnea on CPAP: Code(s): G47.33 - Obstructive sleep apnea (adult) (pediatric); Z99.89 - Dependence on other enabling machines and devices Status: Chronic Assessment and Plan: continue home cpap (9) Hypothyroidism (acquired): Code(s): E03.9 - Hypothyroidism, unspecified Status: Acute Assessment [place]: [place] [id number] currently on 75 mcg levothyroxine Will increase to 100 mcg on 08/07 and will need TSH recheck in 6-8 weeks as an outtpt- mid to end of October Plan The patient presented to the emergency department for evaluation of increasing shortness of breath and edema over the last several days in addition to orthopnea as detailed in HPI. -will order pt/ot Time Spent With Patient Time with patient: Greater than 35 minutes Subjective Date/time seen: 08/07/24 09:24 Interval history: This is a 78-year-old female with coronary artery disease and history of stents, paroxysmal atrial fibrillation on anticoagulation, diastolic congestive heart failure, pulmonary hypertension, obstructive sleep apnea on CPAP, hypertension, hyperlipidemia, chronic kidney disease, anemia, type 2 diabetes mellitus, memory impairment, C difficile diarrhea, depression, suicide attempt in April 2024, and other comorbidities who presented to the emergency department via EMS from home for evaluation of chest pain and shortness of breath. Pt is seen and examined. She is doing well, reports feeling confused but was able to answer all of the orientations questions. Reports nothing specific- just overall feeling bad . Review of Systems Review of Systems: 12 systems were reviewed and are negative except for as per HPI. Exam Narrative: General: Chronically ill-appearing female in the semi-Rdz position in bed. Weight: 119.9 kg. BMI: 44.0. HEENT: PERRL, EOMI. Sclera anicteric. Tacky mucous membranes. Neck: Supple. No significant JVD. Respiratory: Respirations are nonlabored and she is speaking in full sentences. Currently on 5 L nasal cannula. Lung sounds are diminished at the bases with scattered crackles. Cardiovascular: Regular rate and rhythm with S1-S2. Gastrointestinal: Abdomen is soft, obese, nontender, and nondistended with positive bowel sounds. Skin: Warm and dry. Mild erythema of the lower legs due to chronic edema and venous stasis. Extremities: No cyanosis or clubbing. Bilateral lower extremity pitting edema. No palpable knots or cords. Negative Naa sign bilaterally. Peripheral pulses palpable. Neurological: Alert and oriented. Cranial nerves 2-12 are grossly intact. No gross focal deficits to casual conversation. Psychiatric: Pleasant and cooperative with appropriate mood. Seems forgetful at times. Objective Data Vital Signs Vital Signs: Vital Signs - 24 hr 08/06/24 12:38 08/06/24 12:56 08/06/24 13:04 Temperature 97.6 F Pulse Rate 76 76 Respiratory Rate 17 20 Blood Pressure 143/76 H 147/75 H Pulse Oximetry 94 96 98 Oxygen Delivery Non-Rebreather Mask Nasal Cannula Oxygen Flow Rate 15 5 08/06/24 13:10 08/06/24 13:12 08/06/24 13:12 Temperature Pulse Rate 76 75 Respiratory Rate 17 Blood Pressure 140/68 Pulse Oximetry 100 100 Oxygen Delivery Nasal Cannula Oxygen Flow Rate 5 08/06/24 13:16 08/06/24 13:20 08/06/24 13:25 Temperature Pulse Rate 76 74 74 Respiratory Rate 22 H 19 19 Blood Pressure 144/79 H 132/60 122/55 L Pulse Oximetry 98 98 96 Oxygen Delivery Oxygen Flow Rate 08/06/24 13:22 08/06/24 13:27 08/06/24 13:37 Temperature Pulse Rate 74 74 74 Respiratory Rate 19 17 16 Blood Pressure 132/60 122/55 L 127/58 L Pulse Oximetry 95 98 96 Oxygen Delivery Oxygen Flow Rate 08/06/24 13:42 08/06/24 13:45 08/06/24 13:38 Temperature Pulse Rate 74 74 74 Respiratory Rate 18 19 20 Blood Pressure 131/59 L 122/64 124/86 Pulse Oximetry 97 95 96 Oxygen Delivery Oxygen Flow Rate 08/06/24 14:17 08/06/24 14:32 08/06/24 14:48 Temperature Pulse Rate 75 76 76 Respiratory Rate 21 H 19 21 H Blood Pressure 132/77 164/71 H 154/82 H Pulse Oximetry 97 97 98 Oxygen Delivery Oxygen Flow Rate 08/06/24 15:49 08/06/24 16:18 08/06/24 16:32 Temperature Pulse Rate 76 78 78 Respiratory Rate 16 20 19 Blood Pressure 143/76 H 136/53 L 119/66 Pulse Oximetry 96 92 98 Oxygen Delivery Oxygen Flow Rate 08/06/24 16:49 08/06/24 18:45 08/06/24 22:05 Temperature 97.9 F Pulse Rate 78 79 74 Respiratory Rate 20 18 Blood Pressure 134/67 148/82 H Pulse Oximetry 99 94 Oxygen Delivery Oxygen Flow Rate 08/06/24 22:06 08/06/24 22:00 08/06/24 22:21 Temperature 97.8 F Pulse Rate 74 67 Respiratory Rate 20 Blood Pressure 123/50 L Pulse Oximetry 91 95 Oxygen Delivery Nasal Cannula Oxygen Flow Rate 3 08/06/24 20:00 08/07/24 00:00 08/07/24 01:20 Temperature Pulse Rate 74 71 72 Respiratory Rate 17 Blood Pressure Pulse Oximetry 100 Oxygen Delivery Autopap Oxygen Flow Rate 08/07/24 03:31 08/07/24 04:00 08/07/24 06:00 Temperature 98.4 F Pulse Rate 63 62 Respiratory Rate 15 16 Blood Pressure 113/43 L Pulse Oximetry 98 100 Oxygen Delivery Autopap Oxygen Flow Rate 08/07/24 06:15 08/07/24 06:34 08/07/24 09:22 Temperature Pulse Rate 76 Respiratory Rate Blood Pressure Pulse Oximetry 100 100 Oxygen Delivery High Flow Nasal Cannula High Flow Nasal Cannula Oxygen Flow Rate 4 3 Intake/Output Intake/Output: Intake & Output 08/04/24 08/05/24 08/06/24 08/07/24 23:59 23:59 23:59 23:59 Intake Total 200 Output Total 300 Balance -100 Meds/Results Medications: Active Medications Generic Name Dose Route Start Last Admin Trade Name Freq PRN Reason Stop Dose Admin Acetaminophen 650 mg 08/06/24 22:10 Acetaminophen 325 Mg Tablet PO Q6H PRN Mild Pain (1-3) or Fever Allopurinol 100 mg 08/07/24 09:00 08/07/24 09:21 Allopurinol 100 Mg Tablet PO 100 mg DAILY NICOLE Administration Amiodarone HCl 200 mg 08/06/24 21:15 08/06/24 22:05 Amiodarone Hcl 200 Mg Tablet PO 200 mg HS NICOLE Administration Apixaban 5 mg 08/06/24 21:20 08/07/24 09:21 Apixaban 5 Mg Tablet PO 5 mg Q12HR NICOLE Administration Bumetanide 1 mg 08/07/24 09:00 Bumetanide Inj 1 Mg/4 Ml Vial IV PUSH BID NICOLE Bupropion HCl 150 mg 08/07/24 09:00 08/07/24 09:21 Bupropion Hcl Xl (24 Hr) 150 Mg Tabcr PO 150 mg DAILY NICOLE Administration Buspirone HCl 15 mg 08/07/24 09:00 08/07/24 09:20 Buspirone Hcl 5 Mg Tablet PO 15 mg DAILY NICOLE Administration Calcium Carbonate 500 mg 08/07/24 09:00 08/07/24 09:20 Calcium/Vitamin D 500 Mg/5 Mcg (200 I.U.) Tablet PO 500 mg QAM NICOLE Administration Carvedilol 6.25 mg 08/06/24 21:45 08/07/24 09:22 Carvedilol 6.25 Mg Tablet PO 6.25 mg Q12HR NICOLE Administration Dextrose 12.5 gm 08/06/24 22:10 Dextrose 50% 25 Gm/50 Ml Syringe IV PUSH PRN PRN Hypoglycemia Protocol Divalproex Sodium 500 mg 08/06/24 21:50 08/06/24 22:05 Divalproex Sodium Er 500 Mg Tab.24h PO 500 mg HS NICOLE Administration Famotidine 20 mg 08/06/24 21:20 08/06/24 22:06 Famotidine 20 Mg Tablet PO 20 mg HS NICOLE Administration Gabapentin 100 mg 08/07/24 09:00 08/07/24 09:20 Gabapentin 100 Mg Capsule PO 100 mg TID NICOLE Administration Glucagon 1 mg 08/06/24 22:10 Glucagon For Inj 1 Mg Vial IM PRN PRN Hypoglycemia Protocol Glucose 15 gm 08/06/24 22:10 Glucose Oral Gel 15 Gm Of Glucse In 37.5 Gm Tube PO PRN PRN Hypoglycemia Protocol Dextrose 1,000 mls @ 100 mls/hr 08/06/24 22:10 Dextrose 5% 1,000 Ml IVPB PRN PRN Hypoglycemia Protocol Insulin Aspart 3 - 6 units 08/07/24 08:00 08/07/24 09:18 Insulin Aspart (*Bkc) 100 Units/Ml SUB-Q [facility] Protocol Insulin Aspart 1 - 3 units 08/07/24 21:00 Insulin Aspart (*Bkc) 100 Units/Ml SUB-Q [facility] Protocol Insulin Glargine 40 units 08/07/24 09:00 Insulin Glargine (*Bkc) 100 Units/Ml SUB-Q DAILY [facility] Isosorbide Dinitrate 10 mg 08/06/24 21:15 08/07/24 09:21 Isosorbide Dinitrate 10 Mg Tablet PO 10 mg Q12HR NICOLE Administration Levothyroxine Sodium 75 mcg 08/07/24 06:30 08/07/24 06:17 Levothyroxine Sodium 75 Mcg Tablet PO 75 mcg DAILY@0630 NICOLE Administration Memantine 10 mg 08/06/24 21:15 08/07/24 09:20 Memantine 10 Mg Tablet PO 10 mg Q12HR NICOLE Administration Miscellaneous Information 1 each 08/06/24 00:01 Evolocumab [Repatha Sureclick] 140 Mg/Ml Pen Injector) Is Nonformulary, Can Patient Bring XX 09/05/24 00:00 [facility] Miscellaneous Information 1 each 08/06/24 00:01 (Trospium 20 Mg Tablet) Is Nonformulary, Can Patient Bring From Home? XX 09/05/24 00:00 [facility] Multivitamins/Minerals 1 tablet 08/07/24 09:00 08/07/24 09:20 Opti-Gen Tab PO 1 tablet Q12HR NICOLE Administration Mupirocin 1 applic 08/07/24 09:00 08/07/24 09:23 Mupirocin 2% Oint 22 Gm Tube TOPICAL 1 applic BID NICOLE Administration Non-Formulary Medication 140 mg 08/06/24 21:15 Evolocumab [Repatha Sureclick] SUB-Q 09/05/24 21:14 Q14D NICOLE Non-Formulary Medication 14 unit 08/06/24 21:15 Insulin Lispro [Humalog Kwikpen Insulin] SUB-Q 09/05/24 21:14 .tidac NICOLE Non-Formulary Medication 20 mg 08/06/24 21:15 Trospium PO 09/05/24 21:14 Q12H NICOLE Nystatin 1 applic 08/06/24 21:12 Nystatin Ointment 15 Gm Tube TOPICAL BID PRN Rash Pantoprazole Sodium 40 mg 08/07/24 09:00 08/07/24 09:20 Pantoprazole 40 Mg Tablet PO 40 mg Q12HR NICOLE Administration Pramipexole Dihydrochloride 0.25 mg 08/06/24 21:30 08/07/24 09:19 Pramipexole 0.25 Mg Tablet PO 0.25 mg Q12HR NICOLE Administration Venlafaxine HCl 75 mg 08/07/24 09:00 08/07/24 09:20 Venlafaxine Hcl 75 Mg Tablet BY MOUTH 75 mg Q12HR NICOLE Administration Venlafaxine HCl 50 mg 08/07/24 09:00 Venlafaxine Hcl 25 Mg Tablet BY MOUTH Q12HR [facility] Vitamin B Complex 1 cap 08/07/24 09:00 08/07/24 09:21 Vitamin B Complex Capsule PO 1 cap DAILY NICOLE Administration Radiology Results: ITS Impressions Chest X-Ray 08/06/24 13:45 IMPRESSION: Interstitial prominence suggesting pneumonitis or pulmonary interstitial edema. Possible minimal pleural effusions Normal heart size Coronary stent Chest CT 08/06/24 15:17 IMPRESSION: Moderate interstitial pulmonary edema. Trace bilateral pleural effusions. Labs Labs: Laboratory Results - last 24 hr 08/06/24 08/06/24 08/06/24 13:06 16:15 22:46 WBC 12.7 H RBC 3.15 L Hgb 8.7 L Hct 29.2 L MCV 92.7 MCH 27.6 MCHC 29.8 L RDW 16.8 H Plt Count 321 MPV 9.1 Immature Gran % (Auto) 0.5 Neut % (Auto) 80.8 H Lymph % (Auto) 8.7 L Tama % (Auto) 5.4 Eos % (Auto) 4.3 Baso % (Auto) 0.3 Lymph # (Auto) 1.10 Tama # (Auto) 0.7 H Eos # (Auto) 0.5 H Baso # (Auto) 0.0 Abs Immat Gran (auto) 0.06 H Absolute Neuts (auto) 10.3 H Absolute Nucleated RBC 0.000 Nucleated RBC % 0.0 Platelet Estimate Adequate Hypochromasia 1+ Anisocytosis 1+ Stomatocytes 1+ Schistocytes None seen PT 15.7 H INR 1.2 APTT 31.8 Sodium 140 Potassium 4.3 Chloride 109 H Carbon Dioxide 25 Anion Gap 6 BUN 35 H D Creatinine 2.90 H Estim Creat Clear Calc 19 Estimated GFR 16 L Glucose 106 POC Capillary Glucose 145 H Calcium 8.9 Magnesium 2.6 H Total Bilirubin 0.5 AST 31 ALT 15 Alkaline Phosphatase 108 Troponin I < 0.012 < 0.012 NT-Pro-B Natriuret Pep 1560 H Total Protein 7.0 Albumin 3.8 TSH (Reflex) Free T4 08/07/24 08/07/24 06:24 07:52 WBC 10.3 H RBC 2.94 L Hgb 8.0 L Hct 27.1 L MCV 92.2 MCH 27.2 MCHC 29.5 L RDW 16.9 H Plt Count 282 MPV 9.3 Immature Gran % (Auto) Neut % (Auto) Lymph % (Auto) Tama % (Auto) Eos % (Auto) Baso % (Auto) Lymph # (Auto) [place] # (Auto) Eos # (Auto) Baso # (Auto) Abs Immat Gran (auto) Absolute Neuts (auto) Absolute Nucleated RBC Nucleated RBC % Platelet Estimate Hypochromasia Anisocytosis Stomatocytes Schistocytes PT INR APTT Sodium 140 Potassium 4.4 Chloride 108 H Carbon Dioxide 28 Anion Gap 4 BUN 37 H Creatinine 3.10 H Estim Creat Clear Calc 18 Estimated GFR 15 L Glucose 127 H POC Capillary Glucose 113 H Calcium 8.9 Magnesium 2.6 H Total Bilirubin AST ALT Alkaline Phosphatase Troponin I NT-Pro-B Natriuret Pep Total Protein Albumin TSH (Reflex) 12.900 H Free T4 1.35 Quality VTE Prophylaxis VTE prophylaxis: pharmacologic ordered (on apixaban)
[2024-08-07] MEDS: INSULIN GLARGINE (*BKC) 100 UNITS/ML 40 UNITS SUB-Q (09:26)
[2024-08-07] MEDS: VENLAFAXINE HCL 25 MG TABLET 50 MG BY MOUTH ×2 (09:26→20:54)
[2024-08-07 09:55] LABS: Total Triiodothyronine (T3) 0.69 NG/ML (0.97-1.69)
[2024-08-07 10:46] LABS: Iron 20 ug/dL (37-170)
[2024-08-07 10:55] LABS: Percent Iron Saturation 7 % (20-50)
[2024-08-07 11:19] LABS: Glucose Point of Care 220 mg/dl (65-105)
[2024-08-07] MEDS: INSULIN ASPART (*BKC) 100 UNITS/ML SUB-Q ×2 (13:05→16:55)
[2024-08-07] MEDS: IRON SUCROSE COMPLEX 100 MG in SODIUM CHLORIDE 0.9% IV 50 ML 220 MG IVPB (13:42)
[2024-08-07 16:45] LABS: Glucose Point of Care 250 mg/dl (65-105)
[2024-08-07] MEDS: DIVALPROEX SODIUM ER 500 MG TAB.24H PO (20:54)
[2024-08-07] MEDS: AMIODARONE HCL 200 MG TABLET PO (20:56)
[2024-08-07] MEDS: FAMOTIDINE 20 MG TABLET PO (20:57)
[2024-08-07 21:31] LABS: Glucose Point of Care 152 mg/dl (65-105)
[2024-08-08] VITALS (10 sets, daily range): BP systolic 118–120; BP diastolic 55–62; PULSE 60–71; RESP 18–20; TEMP 36.2–36.7; O2SAT 95–100
[2024-08-08] MEDS: LEVOTHYROXINE SODIUM 100 MCG TABLET PO (06:12)
--- NOTE | 2024-08-08 06:47 | PC.NURSE ---
Rakesh, PCT noticed the pt has not voided all night despite having a purwic on. Rakesh bladder scanned the pt and found her to have 526ml of urine in her bladder. I called Dr. Sheffield who gave an order to straight cath the pt. The pt was then straight catheterized and voided 500ml of cloudy yellow urine. I called Dr. Sheffield and informed him that the urine was cloudly and he ordered to send it off for a UA and UC.
[2024-08-08 07:25] LABS: Basophils Absolute Auto 0.1 K/mm3 (0.0-0.1); Basophils Percent Auto 0.5 % (0.2-1.2); Eosinophils Absolute Auto 0.3 K/mm3 (0-0.3); Hematocrit 27.4 % (37.0-47.0); Hemoglobin 7.9 g/dL (12.0-15.0); Immature Granulocyte Absolute 0.04 K/mm3 (0.00-0.031); Immature Granulocyte Percent A 0.4 % (0-0.5); Lymphocytes Absolute Auto 1.37 K/mm3 (0.9-3.2); Lymphocytes Percent Auto 13.6 % (18.3-44.2); Mean Corpuscular HGB Conc 28.8 g/dl (32-36); Mean Corpuscular Hemoglobin 27.3 pg (26-34); Mean Corpuscular Volume 94.8 fl (80-100); Mean Platelet Volume 9.5 fl (7.4-10.4); Neutrophils Absolute Auto 7.3 K/mm3 (1.3-6.7); Neutrophils Percent Auto 72.5 % (45.5-73.1); Platelet Count Result 251 k/mm3 (150-375); Red Blood Count 2.89 M/mm3 (4.2-5.4); Red Cell Distribution Width 17.2 % (11.5-14.5); White Blood Count 10.1 K/mm3 (4.5-10.0)
[2024-08-08 07:45] LABS: Add Urine Microscopic? YES; Appearance Urine Turbid (Clear); Bacteria Urine 2+ /hpf; Bilirubin Urine Negative (Negative); Blood Urine 1+ (Negative); Color Urine Yellow (Yellow); Glucose Urine UA Negative (Negative); Ketones Urine Negative (Negative); Leukocyte Esterase Ur 3+ LEU/UL (Negative); Need Manual Microscopic Reviewed; Nitrate Urine Negative (Negative); Protein Urine 2+ mg/dL (Negative); RBC Urine >100 /hpf (0-2); Specific Grav Ur 1.016 (1.001-1.035); Squamous Epithelial Cell Urine Moderate /hpf (Few); Urobilinogen Urine 0.2 mg/dL (<2.0); WBC Urine >100 /hpf (0-3); pH Urine 5.5 (5.0-9.0)
[2024-08-08 07:46] LABS: Alanine Aminotransferase 15 U/L (6-35); Albumin Level 3.6 g/dL (3.5-5.1); Alkaline Phosphatase 120 U/L (38-126); Anion Gap 7 mmol/L (4-12); Aspartate Amino Transferase 25 U/L (14-36); Bilirubin,Total 0.4 mg/dL (0.2-1.3); Blood Urea Nitrogen 47 mg/dL (7-17); Carbon Dioxide 26 mmol/L (22-30); Chloride 107 mmol/L (98-107); Estimated CRCL calculation 17 ml/min; Estimated Glomerular Filt Rate 14; Glucose 81 mg/dL (65-110); Potassium 4.2 mmol/L (3.4-5.0); Sodium 140 mmol/L (137-145)
[2024-08-08] MEDS: INSULIN GLARGINE (*BKC) 100 UNITS/ML 40 UNITS SUB-Q (07:53)
[2024-08-08] MEDS: FERROUS SULFATE DRIED 142 MG TABCR PO (07:58)
[2024-08-08] MEDS: busPIRone HCL 5 MG TABLET 15 MG PO (07:58)
[2024-08-08 07:59] LABS: Glucose Point of Care 124 mg/dl (65-105)
[2024-08-08] MEDS: PRAMIPEXOLE 0.25 MG TABLET PO ×2 (07:59→21:28)
[2024-08-08] MEDS: allopurinoL 100 MG TABLET PO (07:59)
[2024-08-08] MEDS: GABAPENTIN 100 MG CAPSULE PO ×3 (07:59→16:58)
[2024-08-08] MEDS: ISOSORBIDE DINITRATE 10 MG TABLET PO ×2 (07:59→21:27)
[2024-08-08] MEDS: CALCIUM/VITAMIN D 500 MG/5 MCG (200 I.U.) TABLET PO (07:59)
[2024-08-08] MEDS: VITAMIN B COMPLEX CAPSULE 1 CAP PO (07:59)
[2024-08-08] MEDS: APIXABAN 5 MG TABLET PO ×2 (07:59→21:28)
[2024-08-08] MEDS: OPTI-GEN TAB 1 TABLET PO ×2 (07:59→21:28)
[2024-08-08] MEDS: MEMANTINE 10 MG TABLET PO ×2 (07:59→21:28)
[2024-08-08] MEDS: VENLAFAXINE HCL 25 MG TABLET 50 MG BY MOUTH ×2 (07:59→21:27)
[2024-08-08] MEDS: buPROPion HCL XL (24 HR) 150 MG TABCR PO (07:59)
[2024-08-08] MEDS: carvediloL 6.25 MG TABLET PO ×2 (08:00→21:28)
[2024-08-08] MEDS: VENLAFAXINE HCL 75 MG TABLET BY MOUTH ×2 (08:01→21:29)
[2024-08-08] MEDS: PANTOPRAZOLE 40 MG TABLET PO ×2 (08:01→21:28)
[2024-08-08 08:24] LABS: Anisocytosis 1+; Hypochromasia 1+; Platelet Estimate Adequate (Adequate); Schistocytes None Seen
[2024-08-08] MEDS: MUPIROCIN 2% OINT 22 GM TUBE 1 APPLIC TOPICAL ×2 (08:49→17:02)
[2024-08-08] MEDS: BUMETANIDE INJ 1 MG/4 ML VIAL IV PUSH ×2 (08:49→18:21)
--- NOTE | 2024-08-08 09:10 | PM.IMPN ---
Progress Note: A&P Assessment and Plan (1) Acute respiratory failure with hypoxia: Code(s): J96.01 - Acute respiratory failure with hypoxia Status: Acute Assessment and Plan: Per chart review, according to EMS her SpO2 was 84% on room air and she was placed on a non-rebreather at 15 L with some improvement. Baseline RA. Likely secondary to CHF exacerbation. - Currently on 3L NC - Wean as tolerated for SpO2 > 90 (2) CHF exacerbation: Code(s): I50.9 - Heart failure, unspecified Status: Acute Assessment and Plan: - Symptoms: shortness of breath with BLE edema and orthopnea She was having some chest discomfort with increased work of breathing earlier -but it is all resolved Pulmonary embolism seems less likely as she is on chronic anticoagulation. - Current medications: Bumex 1 mg IV BID - BNP: 1560 - EKG: without ST segment changes and troponin has been negative x2. - Chest XR: Interstitial prominence suggesting pneumonitis or pulmonary interstitial edema. Possible minimal pleural effusions. Normal heart size. Coronary stent - Chest CT: Moderate interstitial pulmonary edema. Trace bilateral pleural effusions. - Echo 04/08/2024: LVEF 65-70% with grade I diastolic dysfunction - Monitor vital signs, I&Os, BUN/creatinine, daily weights, neuro status and patient is a fall risk - Monitor serum electrolytes, Keep serum Potassium>4 and serum Magnesium>2 and CBC (3) Acute kidney injury superimposed on chronic kidney disease: Code(s): N17.9 - Acute kidney failure, unspecified; N18.9 - Chronic kidney disease, unspecified Status: Acute Assessment and Plan: Per nephrology note on 07/29, baseline creatinine fluctuates to extremes -- anywhere from 1.6 - 2.4mg/dl (in the last year) - BUN/Cr 47/3.3 on am labs - Worsening Cr likely related to patients ongoing diuresis for CHF exacerbation vs overcontrol of her BP per nephrology note consider having BP range closer to 150s systolic - Monitor renal function and I/O - Avoid nephrotoxic medications - Renally dose medications (4) Anemia: Qualifiers: Anemia type: unspecified type Qualified Code(s): D64.9 - Anemia, unspecified Code(s): D64.9 - Anemia, unspecified Status: Acute Assessment and Plan: Iron low -started on iron supplementation - f/u with pcp in 2-3 month for recheck (5) Coronary artery disease: Code(s): I25.10 - Atherosclerotic heart disease of [place] coronary artery without angina pectoris Status: Acute Assessment and Plan: Chronic, continue home medications. (6) Type 2 diabetes mellitus with hyperglycemia, with long-term current use of insulin: Code(s): E11.65 - Type 2 diabetes mellitus with hyperglycemia; Z79.4 - care home (current) use of insulin Status: Chronic Assessment and Plan: home insulin toujeo- 45 units at hs, ss14 units of lispro Continue basal insulin. Initiate sliding scale insulin, Accu-Cheks, and hypoglycemic protocol. (7) Obstructive sleep apnea on CPAP: Code(s): G47.33 - Obstructive sleep apnea (adult) (pediatric); Z99.89 - Dependence on other enabling machines and devices Status: Chronic Assessment and Plan: continue home cpap (8) Hypothyroidism (acquired): Code(s): E03.9 - Hypothyroidism, unspecified Status: Acute Assessment [place]: [place] [id number] currently on 75 mcg levothyroxine Will increase to 100 mcg on 08/07 and will need TSH recheck in 6-8 weeks as an outtpt- mid to end of October Time Spent With Patient Time with patient: 25 - 35 minutes Subjective Date/time seen: 08/08/24 09:10 Interval history: 78-year-old female with coronary artery disease and history of stents, paroxysmal atrial fibrillation on anticoagulation, diastolic congestive heart failure, pulmonary hypertension, obstructive sleep apnea on CPAP, hypertension, hyperlipidemia, chronic kidney disease, anemia, type 2 diabetes mellitus, memory impairment, C difficile diarrhea, depression, suicide attempt in April 2024, and other comorbidities who presented to the emergency department via EMS from home for evaluation of chest pain and shortness of breath. Patient is pleasant lying comfortably in bed. She continues to endorse shortness of breath and a wet cough stating that she just does not feel good. She remains on 3L NC for oxygen supplementation. She has no other complaints denying chest pain, palpitations, nausea/vomiting and abdominal pain. Review of Systems Review of Systems: 12 systems were reviewed and are negative except for as per HPI. Exam Narrative: AF HR 70 RR 20 SpO2 98 3L NC (baseline RA) BP 120/62 General: female in no acute respiratory distress who is nontoxic appearing, lying semi recumbent in bed. HEENT: Normocephalic. Atraumatic. Extraocular movement intact. Sclera clear and anicteric. No facial asymmetry. Chest: Lungs are diminished to auscultation bilaterally with lower base crackles. No wheezes. CV: Heart was regular rate and rhythm. S1-S2. No murmurs, gallops, or rubs. Abd: Abdomen was soft. Nontender. Nondistended. Positive bowel sounds. No organomegaly or masses. Ext: No clubbing, cyanosis, or edema. 2+ DP pulses bilaterally. Neuro: Patient is alert and oriented x3 (person, place, month). Cranial nerves 2-12 are intact. Speech is clear. Objective Data Vital Signs Vital Signs: Vital Signs - 24 hr 08/07/24 09:22 08/07/24 12:00 08/07/24 14:00 Temperature 98.2 F Pulse Rate 76 68 64 Respiratory Rate 18 Blood Pressure 115/42 L Pulse Oximetry 98 Oxygen Delivery Oxygen Flow Rate 08/07/24 16:00 08/07/24 20:56 08/07/24 20:56 Temperature Pulse Rate 66 70 70 Respiratory Rate Blood Pressure Pulse Oximetry Oxygen Delivery Oxygen Flow Rate 08/07/24 21:39 08/07/24 22:33 08/07/24 20:55 Temperature 98.2 F Pulse Rate 69 71 Respiratory Rate 22 H 20 Blood Pressure 110/42 L Pulse Oximetry 96 99 Oxygen Delivery Autopap High Flow Nasal Cannula Oxygen Flow Rate 3 08/07/24 20:00 08/08/24 00:00 08/08/24 01:35 Temperature Pulse Rate 65 60 Respiratory Rate 18 Blood Pressure Pulse Oximetry Oxygen Delivery Autopap Oxygen Flow Rate 08/08/24 04:00 08/08/24 05:47 08/08/24 08:00 Temperature 97.9 F Pulse Rate 61 64 70 Respiratory Rate 20 Blood Pressure 120/62 Pulse Oximetry 100 Oxygen Delivery Oxygen Flow Rate Intake/Output Intake/Output: Intake & Output 08/05/24 08/06/24 08/07/24 08/08/24 23:59 23:59 23:59 23:59 Intake Total 680 0 Output Total 300 500 Balance 380 -500 Meds/Results Medications: Active Medications Generic Name Dose Route Start Last Admin Trade Name Freq PRN Reason Stop Dose Admin Acetaminophen 650 mg 08/06/24 22:10 Acetaminophen 325 Mg Tablet PO Q6H PRN Mild Pain (1-3) or Fever Allopurinol 100 mg 08/07/24 09:00 08/08/24 07:59 Allopurinol 100 Mg Tablet PO 100 mg DAILY NICOLE Administration Amiodarone HCl 200 mg 08/06/24 21:15 08/07/24 20:56 Amiodarone Hcl 200 Mg Tablet PO 200 mg HS NICOLE Administration Apixaban 5 mg 08/06/24 21:20 08/08/24 07:59 Apixaban 5 Mg Tablet PO 5 mg Q12HR NICOLE Administration Bumetanide 1 mg 08/07/24 09:00 08/08/24 08:49 Bumetanide Inj 1 Mg/4 Ml Vial IV PUSH 1 mg BID NICOLE Administration Bupropion HCl 150 mg 08/07/24 09:00 08/08/24 07:59 Bupropion Hcl Xl (24 Hr) 150 Mg Tabcr PO 150 mg DAILY NICOLE Administration Buspirone HCl 15 mg 08/07/24 09:00 08/08/24 07:58 Buspirone Hcl 5 Mg Tablet PO 15 mg DAILY NICOLE Administration Calcium Carbonate 500 mg 08/07/24 09:00 08/08/24 07:59 Calcium/Vitamin D 500 Mg/5 Mcg (200 I.U.) Tablet PO 500 mg QAM NICOLE Administration Carvedilol 6.25 mg 08/06/24 21:45 08/08/24 08:00 Carvedilol 6.25 Mg Tablet PO 6.25 mg Q12HR NICOLE Administration Dextrose 12.5 gm 08/06/24 22:10 Dextrose 50% 25 Gm/50 Ml Syringe IV PUSH PRN PRN Hypoglycemia Protocol Divalproex Sodium 500 mg 08/06/24 21:50 08/07/24 20:54 Divalproex Sodium Er 500 Mg Tab.24h PO 500 mg HS NICOLE Administration Famotidine 20 mg 08/06/24 21:20 08/07/24 20:57 Famotidine 20 Mg Tablet PO 20 mg HS NICOLE Administration Ferrous Sulfate 142 mg 08/08/24 08:00 08/08/24 07:58 Ferrous Sulfate Dried 142 Mg Tabcr PO 142 mg DAILY@0800 NICOLE Administration Gabapentin 100 mg 08/07/24 09:00 08/08/24 07:59 Gabapentin 100 Mg Capsule PO 100 mg TID NICOLE Administration Glucagon 1 mg 08/06/24 22:10 Glucagon For Inj 1 Mg Vial IM PRN PRN Hypoglycemia Protocol Glucose 15 gm 08/06/24 22:10 Glucose Oral Gel 15 Gm Of Glucse In 37.5 Gm Tube PO PRN PRN Hypoglycemia Protocol Dextrose 1,000 mls @ 100 mls/hr 08/06/24 22:10 Dextrose 5% 1,000 Ml IVPB PRN PRN Hypoglycemia Protocol Insulin Aspart 3 - 6 units 08/07/24 08:00 08/08/24 07:55 Insulin Aspart (*Bkc) 100 Units/Ml SUB-Q Not Given TIDWM [facility] Protocol Insulin Aspart 1 - 3 units 08/07/24 21:00 08/07/24 21:02 Insulin Aspart (*Bkc) 100 Units/Ml SUB-Q Not Given HS [facility] Protocol Insulin Glargine 40 units 08/07/24 09:00 08/08/24 07:53 Insulin Glargine (*Bkc) 100 Units/Ml SUB-Q 40 units DAILY NICOLE Administration Isosorbide Dinitrate 10 mg 08/06/24 21:15 08/08/24 07:59 Isosorbide Dinitrate 10 Mg Tablet PO 10 mg Q12HR NICOLE Administration Levothyroxine Sodium 100 mcg 08/08/24 06:30 08/08/24 06:12 Levothyroxine Sodium 100 Mcg Tablet PO 100 mcg DAILY@0630 NICOLE Administration Memantine 10 mg 08/06/24 21:15 08/08/24 07:59 Memantine 10 Mg Tablet PO 10 mg Q12HR NICOLE Administration Miscellaneous Information 1 each 08/06/24 00:01 Evolocumab [Repatha Sureclick] 140 Mg/Ml Pen Injector) Is Nonformulary, Can Patient Bring XX 09/05/24 00:00 [facility] Miscellaneous Information 1 each 08/06/24 00:01 (Trospium 20 Mg Tablet) Is Nonformulary, Can Patient Bring From Home? XX 09/05/24 00:00 [facility] Multivitamins/Minerals 1 tablet 08/07/24 09:00 08/08/24 07:59 Opti-Gen Tab PO 1 tablet Q12HR NICOLE Administration Mupirocin 1 applic 08/07/24 09:00 08/08/24 08:49 Mupirocin 2% Oint 22 Gm Tube TOPICAL 1 applic BID NICOLE Administration Non-Formulary Medication 140 mg 08/06/24 21:15 Evolocumab [Repatha Sureclick] SUB-Q 09/05/24 21:14 Q14D NICOLE Non-Formulary Medication 14 unit 08/06/24 21:15 Insulin Lispro [Humalog Kwikpen Insulin] SUB-Q 09/05/24 21:14 .tidac NICOLE Non-Formulary Medication 20 mg 08/06/24 21:15 Trospium PO 09/05/24 21:14 Q12H NICOLE Nystatin 1 applic 08/06/24 21:12 Nystatin Ointment 15 Gm Tube TOPICAL BID PRN Rash Pantoprazole Sodium 40 mg 08/07/24 09:00 08/08/24 08:01 Pantoprazole 40 Mg Tablet PO 40 mg Q12HR NICOLE Administration Pramipexole Dihydrochloride 0.25 mg 08/06/24 21:30 08/08/24 07:59 Pramipexole 0.25 Mg Tablet PO 0.25 mg Q12HR NICOLE Administration Venlafaxine HCl 75 mg 08/07/24 09:00 08/08/24 08:01 Venlafaxine Hcl 75 Mg Tablet BY MOUTH 75 mg Q12HR NICOLE Administration Venlafaxine HCl 50 mg 08/07/24 09:00 08/08/24 07:59 Venlafaxine Hcl 25 Mg Tablet BY MOUTH 50 mg Q12HR NICOLE Administration Vitamin B Complex 1 cap 08/07/24 09:00 08/08/24 07:59 Vitamin B Complex Capsule PO 1 cap DAILY NICOLE Administration Radiology Results: ITS Impressions Chest X-Ray 08/06/24 13:45 IMPRESSION: Interstitial prominence suggesting pneumonitis or pulmonary interstitial edema. Possible minimal pleural effusions Normal heart size Coronary stent Chest CT 08/06/24 15:17 IMPRESSION: Moderate interstitial pulmonary edema. Trace bilateral pleural effusions. Labs Labs: Laboratory Results - last 24 hr 08/07/24 08/07/24 08/07/24 06:24 11:03 16:43 WBC RBC Hgb Hct MCV MCH MCHC RDW Plt Count MPV Immature Gran % (Auto) Neut % (Auto) Lymph % (Auto) Cannon % (Auto) Eos % (Auto) Baso % (Auto) Lymph # (Auto) [place] # (Auto) Eos # (Auto) Baso # (Auto) Abs Immat Gran (auto) Absolute Neuts (auto) Absolute Nucleated RBC Nucleated RBC % Platelet Estimate Hypochromasia Anisocytosis Schistocytes Sodium Potassium Chloride Carbon Dioxide Anion Gap BUN Creatinine Estim Creat Clear Calc Estimated GFR Glucose POC Capillary Glucose 220 H 250 H Calcium Iron 20 L TIBC 296 % Saturation 7 L Total Bilirubin AST ALT Alkaline Phosphatase Total Protein Albumin Total T3 0.69 L Urine Color Urine Appearance Urine pH Ur Specific [place] Urine Protein Urine Glucose (UA) Urine Ketones Ur Blood (Man) Urine Nitrate Urine Bilirubin Urine Urobilinogen Ur Leukocyte Esterase Add Ur Microanalysis Urine RBC Urine WBC Ur Squamous Epith Cells Urine Bacteria Urine Casts 08/07/24 08/08/24 08/08/24 20:28 06:44 07:06 WBC 10.1 H RBC 2.89 L Hgb 7.9 L Hct 27.4 L MCV 94.8 MCH 27.3 MCHC 28.8 L RDW 17.2 H Plt Count 251 MPV 9.5 Immature Gran % (Auto) 0.4 Neut % (Auto) 72.5 Lymph % (Auto) 13.6 L Cannon % (Auto) 10.0 H Eos % (Auto) 3.0 Baso % (Auto) 0.5 Lymph # (Auto) 1.37 Cannon # (Auto) 1.0 H Eos # (Auto) 0.3 Baso # (Auto) 0.1 Abs Immat Gran (auto) 0.04 H Absolute Neuts (auto) 7.3 H Absolute Nucleated RBC 0.000 Nucleated RBC % 0.0 Platelet Estimate Adequate Hypochromasia 1+ Anisocytosis 1+ Schistocytes None seen Sodium 140 Potassium 4.2 Chloride 107 Carbon Dioxide 26 Anion Gap 7 BUN 47 H D Creatinine 3.30 H Estim Creat Clear Calc 17 Estimated GFR 14 L Glucose 81 POC Capillary Glucose 152 H Calcium 9.0 Iron TIBC % Saturation Total Bilirubin 0.4 AST 25 ALT 15 Alkaline Phosphatase 120 Total Protein 7.0 Albumin 3.6 Total T3 Urine Color Yellow Urine Appearance Turbid H Urine pH 5.5 Ur Specific [place] 1.016 Urine Protein 2+ H Urine Glucose (UA) Negative Urine Ketones Negative Ur Blood (Man) 1+ H Urine Nitrate Negative Urine Bilirubin Negative Urine Urobilinogen 0.2 Ur Leukocyte Esterase 3+ H Add Ur Microanalysis Reviewed Urine RBC >100 H Urine WBC >100 H Ur Squamous Epith Cells Moderate Urine Bacteria 2+ H Urine Casts 6-10 08/08/24 07:52 WBC RBC Hgb Hct MCV MCH MCHC RDW Plt Count MPV Immature Gran % (Auto) Neut % (Auto) Lymph % (Auto) [place] % (Auto) Eos % (Auto) Baso % (Auto) Lymph # (Auto) [place] # (Auto) Eos # (Auto) Baso # (Auto) Abs Immat Gran (auto) Absolute Neuts (auto) Absolute Nucleated RBC Nucleated RBC % Platelet Estimate Hypochromasia Anisocytosis Schistocytes Sodium Potassium Chloride Carbon Dioxide Anion Gap BUN Creatinine Estim Creat Clear Calc Estimated GFR Glucose POC Capillary Glucose 124 H Calcium Iron TIBC % Saturation Total Bilirubin AST ALT Alkaline Phosphatase Total Protein Albumin Total T3 Urine Color Urine Appearance Urine pH Ur Specific [place] Urine Protein Urine Glucose (UA) Urine Ketones Ur Blood (Man) Urine Nitrate Urine Bilirubin Urine Urobilinogen Ur Leukocyte Esterase Add Ur Microanalysis Urine RBC Urine WBC Ur Squamous Epith Cells Urine Bacteria Urine Casts Quality VTE Prophylaxis VTE prophylaxis: pharmacologic ordered (on apixaban)
[2024-08-08 11:35] LABS: Glucose Point of Care 171 mg/dl (65-105)
[2024-08-08 17:00] LABS: Glucose Point of Care 128 mg/dl (65-105)
[2024-08-08 21:04] LABS: Glucose Point of Care 198 mg/dl (65-105)
[2024-08-08] MEDS: DIVALPROEX SODIUM ER 500 MG TAB.24H PO (21:28)
[2024-08-08] MEDS: FAMOTIDINE 20 MG TABLET PO (21:28)
[2024-08-08] MEDS: AMIODARONE HCL 200 MG TABLET PO (21:28)
[2024-08-08] MEDS: ACETAMINOPHEN 325 MG TABLET 650 MG PO (21:40)
[2024-08-09] VITALS (11 sets, daily range): BP systolic 99–121; BP diastolic 42–57; PULSE 44–106; RESP 16–20; TEMP 36.1–36.4; O2SAT 97–99
[2024-08-09] MEDS: LEVOTHYROXINE SODIUM 100 MCG TABLET PO (05:26)
[2024-08-09 06:56] LABS: Basophils Percent Auto 0.5 % (0.2-1.2); Eosinophils Absolute Auto 0.3 K/mm3 (0-0.3); Eosinophils Percent Auto 4.6 % (0-4.4); Hematocrit 24.9 % (37.0-47.0); Hemoglobin 7.3 g/dL (12.0-15.0); Immature Granulocyte Absolute 0.03 K/mm3 (0.00-0.031); Immature Granulocyte Percent A 0.4 % (0-0.5); Lymphocytes Absolute Auto 1.43 K/mm3 (0.9-3.2); Lymphocytes Percent Auto 19.5 % (18.3-44.2); Mean Corpuscular HGB Conc 29.3 g/dl (32-36); Mean Corpuscular Hemoglobin 27.4 pg (26-34); Mean Corpuscular Volume 93.6 fl (80-100); Mean Platelet Volume 9.7 fl (7.4-10.4); Monocytes Absolute Auto 0.6 K/mm3 (0.1-0.6); Monocytes Percent Auto 8.2 % (2.6-8.5); Neutrophils Absolute Auto 4.9 K/mm3 (1.3-6.7); Neutrophils Percent Auto 66.8 % (45.5-73.1); Platelet Count Result 225 k/mm3 (150-375); Red Blood Count 2.66 M/mm3 (4.2-5.4); Red Cell Distribution Width 17.1 % (11.5-14.5); White Blood Count 7.3 K/mm3 (4.5-10.0)
[2024-08-09 07:15] LABS: Alanine Aminotransferase 16 U/L (6-35); Albumin Level 3.4 g/dL (3.5-5.1); Alkaline Phosphatase 137 U/L (38-126); Anion Gap 7 mmol/L (4-12); Aspartate Amino Transferase 26 U/L (14-36); Bilirubin,Total 0.3 mg/dL (0.2-1.3); Blood Urea Nitrogen 53 mg/dL (7-17); Calcium 8.9 mg/dL (8.4-10.2); Carbon Dioxide 27 mmol/L (22-30); Chloride 104 mmol/L (98-107); Estimated CRCL calculation 15 ml/min; Estimated Glomerular Filt Rate 12; Glucose 73 mg/dL (65-110); Potassium 3.8 mmol/L (3.4-5.0); Sodium 138 mmol/L (137-145)
[2024-08-09 07:42] LABS: Anisocytosis 1+; Hypochromasia 1+; Platelet Estimate Adequate (Adequate); Polychromasia 1+; Schistocytes None Seen
[2024-08-09 07:55] LABS: Glucose Point of Care 60 mg/dl (65-105)
[2024-08-09] MEDS: ACETAMINOPHEN 325 MG TABLET 650 MG PO (08:40)
[2024-08-09] MEDS: buPROPion HCL XL (24 HR) 150 MG TABCR PO (08:41)
[2024-08-09] MEDS: FERROUS SULFATE DRIED 142 MG TABCR PO (08:41)
[2024-08-09] MEDS: carvediloL 6.25 MG TABLET PO (08:41)
[2024-08-09] MEDS: VITAMIN B COMPLEX CAPSULE 1 CAP PO (08:41)
[2024-08-09] MEDS: ISOSORBIDE DINITRATE 10 MG TABLET PO (08:41)
[2024-08-09] MEDS: VENLAFAXINE HCL 25 MG TABLET 50 MG BY MOUTH ×2 (08:41→22:20)
[2024-08-09] MEDS: PRAMIPEXOLE 0.25 MG TABLET PO ×2 (08:41→22:20)
[2024-08-09] MEDS: OPTI-GEN TAB 1 TABLET PO ×2 (08:41→22:20)
[2024-08-09] MEDS: busPIRone HCL 5 MG TABLET 15 MG PO (08:41)
[2024-08-09] MEDS: VENLAFAXINE HCL 75 MG TABLET BY MOUTH ×2 (08:43→22:20)
[2024-08-09] MEDS: allopurinoL 100 MG TABLET PO (08:43)
[2024-08-09] MEDS: PANTOPRAZOLE 40 MG TABLET PO ×2 (08:43→22:20)
[2024-08-09] MEDS: CALCIUM/VITAMIN D 500 MG/5 MCG (200 I.U.) TABLET PO (08:43)
[2024-08-09] MEDS: APIXABAN 5 MG TABLET PO ×2 (08:43→22:20)
[2024-08-09] MEDS: MEMANTINE 10 MG TABLET PO ×2 (08:43→22:20)
[2024-08-09] MEDS: GABAPENTIN 100 MG CAPSULE PO ×3 (08:43→16:40)
[2024-08-09] MEDS: BUMETANIDE INJ 1 MG/4 ML VIAL IV PUSH (08:44)
[2024-08-09] MEDS: MUPIROCIN 2% OINT 22 GM TUBE 1 APPLIC TOPICAL ×2 (08:46→16:42)
[2024-08-09 08:54] LABS: Glucose Point of Care 101 mg/dl (65-105)
[2024-08-09 09:13] LABS: Glucose Point of Care 74 mg/dl (65-105)
--- NOTE | 2024-08-09 09:38 | PM.IMPN ---
Progress Note: A&P Assessment and Plan (1) Acute respiratory failure with hypoxia: Code(s): J96.01 - Acute respiratory failure with hypoxia Status: Acute Assessment and Plan: Per chart review, according to EMS her SpO2 was 84% on room air and she was placed on a non-rebreather at 15 L with some improvement. Baseline RA. Likely secondary to CHF exacerbation. - Back to baseline RA - Wean as tolerated for SpO2 > 90 (2) CHF exacerbation: Code(s): I50.9 - Heart failure, unspecified Status: Acute Assessment and Plan: - Symptoms: shortness of breath with BLE edema and orthopnea She was having some chest discomfort with increased work of breathing earlier -but it is all resolved Pulmonary embolism seems less likely as she is on chronic anticoagulation. - Current medications: Bumex 1 mg IV daily - BNP: 1560 - EKG: without ST segment changes and troponin has been negative x2. - Chest XR: Interstitial prominence suggesting pneumonitis or pulmonary interstitial edema. Possible minimal pleural effusions. Normal heart size. Coronary stent - Chest CT: Moderate interstitial pulmonary edema. Trace bilateral pleural effusions. - Echo 04/08/2024: LVEF 65-70% with grade I diastolic dysfunction - Monitor vital signs, I&Os, BUN/creatinine, daily weights, neuro status and patient is a fall risk - Monitor serum electrolytes, Keep serum Potassium>4 and serum Magnesium>2 and CBC (3) Acute kidney injury superimposed on chronic kidney disease: Code(s): N17.9 - Acute kidney failure, unspecified; N18.9 - Chronic kidney disease, unspecified Status: Acute Assessment and Plan: Per nephrology note on 07/29, baseline creatinine fluctuates to extremes -- anywhere from 1.6 - 2.4mg/dl (in the last year) - BUN/Cr 53/3.7 on am labs - Worsening Cr likely related to patients ongoing diuresis for CHF exacerbation (Bumex made daily instead of BID) vs overcontrol of her BP per nephrology note consider having BP range closer to 150s systolic - Monitor renal function and I/O - Avoid nephrotoxic medications - Renally dose medications - Nephrology consulted, appreciate recommendations (4) Anemia: Qualifiers: Anemia type: unspecified type Qualified Code(s): D64.9 - Anemia, unspecified Code(s): D64.9 - Anemia, unspecified Status: Acute Assessment and Plan: Iron low -started on iron supplementation - f/u with pcp in 2-3 month for recheck (5) Coronary artery disease: Code(s): I25.10 - Atherosclerotic heart disease of tet[place] coronary artery without angina pectoris Status: Acute Assessment and Plan: Chronic, continue home medications. (6) Type 2 diabetes mellitus with hyperglycemia, with long-term current use of insulin: Code(s): E11.65 - Type 2 diabetes mellitus with hyperglycemia; Z79.4 - senior living (current) use of insulin Status: Chronic Assessment and Plan: home insulin toujeo- 45 units at hs, ss14 units of lispro Continue basal insulin. Initiate sliding scale insulin, Accu-Cheks, and hypoglycemic protocol. (7) Obstructive sleep apnea on CPAP: Code(s): G47.33 - Obstructive sleep apnea (adult) (pediatric); Z99.89 - Dependence on other enabling machines and devices Status: Chronic Assessment and Plan: Does not use CPAP at home. ABG ordered. (8) Hypothyroidism (acquired): Code(s): E03.9 - Hypothyroidism, unspecified Status: Acute Assessment [place]: [place] [id number] currently on 75 mcg levothyroxine Will increase to 100 mcg on 08/07 and will need TSH recheck in 6-8 weeks as an outtpt- mid to end of October Time Spent With Patient Time with patient: Greater than 35 minutes Subjective Date/time seen: 08/09/24 09:38 Interval history: 78-year-old female with coronary artery disease and history of stents, paroxysmal atrial fibrillation on anticoagulation, diastolic congestive heart failure, pulmonary hypertension, obstructive sleep apnea on CPAP, hypertension, hyperlipidemia, chronic kidney disease, anemia, type 2 diabetes mellitus, memory impairment, C difficile diarrhea, depression, suicide attempt in April 2024, and other comorbidities who presented to the emergency department via EMS from home for evaluation of chest pain and shortness of breath. Patient is pleasant sitting up in her chair. She states that she is not feeling good but better than yesterday. She continues to endorse shortness of breath and a dry cough. She was weaned back to room air. She has no other complaints denying chest pain, palpitations, nausea/vomiting and abdominal pain. Received a phone call from patients RN. Per RN patient stood from her chair and had a possible syncopal episode. Patient has been bradycardic on tele. EKG showing sinus snehal. Patient found to be hypotensive. Orthostatics ordered. ABG also ordered given that patient does not wear a CPAP at night despite having ANDREA history. Returned to patients room and she remains AOx4 with friend at bedside. Patient states that she did not faint, her legs just gave out on her after standing up to walk to the stretcher. Review of Systems Review of Systems: 12 systems were reviewed and are negative except for as per HPI. Exam Narrative: AF HR 65 RR 20 SPO2 99 BP 110/50 General: female in no acute respiratory distress who is nontoxic appearing, lying semi recumbent in bed. HEENT: Normocephalic. Atraumatic. Extraocular movement intact. Sclera clear and anicteric. No facial asymmetry. Chest: Lungs are diminished to auscultation bilaterally with lower base crackles. No wheezes. CV: Heart was regular rate and rhythm. S1-S2. No murmurs, gallops, or rubs. Abd: Abdomen was soft. Nontender. Nondistended. Positive bowel sounds. No organomegaly or masses. Ext: No clubbing, cyanosis, or edema. 2+ DP pulses bilaterally. Neuro: Patient is alert and oriented x3 (person, place, year). Cranial nerves 2-12 are intact. Speech is clear. Objective Data Vital Signs Vital Signs: Vital Signs - 24 hr 08/08/24 13:58 08/08/24 14:00 08/08/24 15:53 Temperature 97.1 F L Pulse Rate 64 Respiratory Rate 18 Blood Pressure 118/55 L Pulse Oximetry 95 Oxygen Delivery Nasal Cannula Nasal Cannula Oxygen Flow Rate 3 2 08/08/24 12:00 08/08/24 16:00 08/08/24 20:00 Temperature Pulse Rate 69 67 Respiratory Rate Blood Pressure Pulse Oximetry Oxygen Delivery Room Air Oxygen Flow Rate 08/08/24 20:00 08/08/24 21:48 08/09/24 05:26 Temperature 98.0 F 97.0 F L Pulse Rate 70 71 52 L Respiratory Rate 18 18 Blood Pressure 120/58 L 112/50 L Pulse Oximetry 96 98 Oxygen Delivery Oxygen Flow Rate 08/09/24 00:00 08/09/24 04:00 08/09/24 08:41 Temperature Pulse Rate 52 L 49 L 106 H Respiratory Rate Blood Pressure Pulse Oximetry Oxygen Delivery Oxygen Flow Rate Intake/Output Intake/Output: Intake & Output 08/06/24 08/07/24 08/08/24 08/09/24 23:59 23:59 23:59 23:59 Intake Total 680 720 580 Output Total 300 750 350 Balance 380 -30 230 Meds/Results Medications: Active Medications Generic Name Dose Route Start Last Admin Trade Name Freq PRN Reason Stop Dose Admin Acetaminophen 650 mg 08/06/24 22:10 08/09/24 08:40 Acetaminophen 325 Mg Tablet PO 650 mg Q6H PRN Administration Mild Pain (1-3) or Fever Allopurinol 100 mg 08/07/24 09:00 08/09/24 08:43 Allopurinol 100 Mg Tablet PO 100 mg DAILY NICOLE Administration Amiodarone HCl 200 mg 08/06/24 21:15 08/08/24 21:28 Amiodarone Hcl 200 Mg Tablet PO 200 mg HS NICOLE Administration Apixaban 5 mg 08/06/24 21:20 08/09/24 08:43 Apixaban 5 Mg Tablet PO 5 mg Q12HR NICOLE Administration Bumetanide 1 mg 08/07/24 09:00 08/09/24 08:44 Bumetanide Inj 1 Mg/4 Ml Vial IV PUSH 1 mg BID NICOLE Administration Bupropion HCl 150 mg 08/07/24 09:00 08/09/24 08:41 Bupropion Hcl Xl (24 Hr) 150 Mg Tabcr PO 150 mg DAILY NICOLE Administration Buspirone HCl 15 mg 08/07/24 09:00 08/09/24 08:41 Buspirone Hcl 5 Mg Tablet PO 15 mg DAILY NICOLE Administration Calcium Carbonate 500 mg 08/07/24 09:00 08/09/24 08:43 Calcium/Vitamin D 500 Mg/5 Mcg (200 I.U.) Tablet PO 500 mg QAM NICOLE Administration Carvedilol 6.25 mg 08/06/24 21:45 08/09/24 08:41 Carvedilol 6.25 Mg Tablet PO 6.25 mg Q12HR NICOLE Administration Dextrose 12.5 gm 08/06/24 22:10 Dextrose 50% 25 Gm/50 Ml Syringe IV PUSH PRN PRN Hypoglycemia Protocol Divalproex Sodium 500 mg 08/06/24 21:50 08/08/24 21:28 Divalproex Sodium Er 500 Mg Tab.24h PO 500 mg HS NICOLE Administration Famotidine 20 mg 08/06/24 21:20 08/08/24 21:28 Famotidine 20 Mg Tablet PO 20 mg HS NICOLE Administration Ferrous Sulfate 142 mg 08/08/24 08:00 08/09/24 08:41 Ferrous Sulfate Dried 142 Mg Tabcr PO 142 mg DAILY@0800 NICOLE Administration Gabapentin 100 mg 08/07/24 09:00 08/09/24 08:43 Gabapentin 100 Mg Capsule PO 100 mg TID NICOLE Administration Glucagon 1 mg 08/06/24 22:10 Glucagon For Inj 1 Mg Vial IM PRN PRN Hypoglycemia Protocol Glucose 15 gm 08/06/24 22:10 Glucose Oral Gel 15 Gm Of Glucse In 37.5 Gm Tube PO PRN PRN Hypoglycemia Protocol Dextrose 1,000 mls @ 100 mls/hr 08/06/24 22:10 Dextrose 5% 1,000 Ml IVPB PRN PRN Hypoglycemia Protocol Insulin Aspart 3 - 6 units 08/07/24 08:00 08/09/24 08:45 Insulin Aspart (*Bkc) 100 Units/Ml SUB-Q Not Given TIDWM [facility] Protocol Insulin Aspart 1 - 3 units 08/07/24 21:00 08/08/24 21:56 Insulin Aspart (*Bkc) 100 Units/Ml SUB-Q Not Given HS [facility] Protocol Insulin Glargine 40 units 08/07/24 09:00 08/09/24 08:45 Insulin Glargine (*Bkc) 100 Units/Ml SUB-Q Not Given DAILY [facility] Isosorbide Dinitrate 10 mg 08/06/24 21:15 08/09/24 08:41 Isosorbide Dinitrate 10 Mg Tablet PO 10 mg Q12HR NICOLE Administration Levothyroxine Sodium 100 mcg 08/08/24 06:30 08/09/24 05:26 Levothyroxine Sodium 100 Mcg Tablet PO 100 mcg DAILY@0630 [facility] Administration Memantine 10 mg 08/06/24 21:15 08/09/24 08:43 Memantine 10 Mg Tablet PO 10 mg Q12HR NICOLE Administration Miscellaneous Information 1 each 08/06/24 00:01 08/09/24 00:56 Evolocumab [Repatha Sureclick] 140 Mg/Ml Pen Injector) Is Nonformulary, Can Patient Bring XX 09/05/24 00:00 Not Given CLARIFY [facility] Miscellaneous Information 1 each 08/06/24 00:01 08/09/24 00:56 (Trospium 20 Mg Tablet) Is Nonformulary, Can Patient Bring From Home? XX 09/05/24 00:00 Not Given CLARIFY [facility] Multivitamins/Minerals 1 tablet 08/07/24 09:00 08/09/24 08:41 Opti-Gen Tab PO 1 tablet Q12HR NICOLE Administration Mupirocin 1 applic 08/07/24 09:00 08/09/24 08:46 Mupirocin 2% Oint 22 Gm Tube TOPICAL 1 applic BID NICOLE Administration Non-Formulary Medication 140 mg 08/06/24 21:15 Evolocumab [Repatha Sureclick] SUB-Q 09/05/24 21:14 Q14D NICOLE Non-Formulary Medication 14 unit 08/06/24 21:15 Insulin Lispro [Humalog Kwikpen Insulin] SUB-Q 09/05/24 21:14 .tidac NICOLE Non-Formulary Medication 20 mg 08/06/24 21:15 Trospium PO 09/05/24 21:14 Q12H NICOLE Nystatin 1 applic 08/06/24 21:12 Nystatin Ointment 15 Gm Tube TOPICAL BID PRN Rash Pantoprazole Sodium 40 mg 08/07/24 09:00 08/09/24 08:43 Pantoprazole 40 Mg Tablet PO 40 mg Q12HR NICOLE Administration Pramipexole Dihydrochloride 0.25 mg 08/06/24 21:30 08/09/24 08:41 Pramipexole 0.25 Mg Tablet PO 0.25 mg Q12HR NICOLE Administration Venlafaxine HCl 75 mg 08/07/24 09:00 08/09/24 08:43 Venlafaxine Hcl 75 Mg Tablet BY MOUTH 75 mg Q12HR NICOLE Administration Venlafaxine HCl 50 mg 08/07/24 09:00 08/09/24 08:41 Venlafaxine Hcl 25 Mg Tablet BY MOUTH 50 mg Q12HR NICOLE Administration Vitamin B Complex 1 cap 08/07/24 09:00 08/09/24 08:41 Vitamin B Complex Capsule PO 1 cap DAILY NICOLE Administration Radiology Results: ITS Impressions Chest X-Ray 08/06/24 13:45 IMPRESSION: Interstitial prominence suggesting pneumonitis or pulmonary interstitial edema. Possible minimal pleural effusions Normal heart size Coronary stent Chest CT 08/06/24 15:17 IMPRESSION: Moderate interstitial pulmonary edema. Trace bilateral pleural effusions. Labs Labs: Laboratory Results - last 24 hr 08/08/24 08/08/24 08/08/24 11:31 16:53 20:51 WBC RBC Hgb Hct MCV MCH MCHC RDW Plt Count MPV Immature Gran % (Auto) Neut % (Auto) Lymph % (Auto) [place] % (Auto) Eos % (Auto) Baso % (Auto) Lymph # (Auto) [place] # (Auto) Eos # (Auto) Baso # (Auto) Abs Immat Gran (auto) Absolute Neuts (auto) Absolute Nucleated RBC Nucleated RBC % Platelet Estimate Polychromasia Hypochromasia Anisocytosis Schistocytes Sodium Potassium Chloride Carbon Dioxide Anion Gap BUN Creatinine Estim Creat Clear Calc Estimated GFR Glucose POC Capillary Glucose 171 H 128 H 198 H Calcium Total Bilirubin AST ALT Alkaline Phosphatase Total Protein Albumin 08/09/24 08/09/24 08/09/24 06:30 07:48 08:26 WBC 7.3 RBC 2.66 L Hgb 7.3 L Hct 24.9 L MCV 93.6 MCH 27.4 MCHC 29.3 L RDW 17.1 H Plt Count 225 MPV 9.7 Immature Gran % (Auto) 0.4 Neut % (Auto) 66.8 Lymph % (Auto) 19.5 [place] % (Auto) 8.2 Eos % (Auto) 4.6 H Baso % (Auto) 0.5 Lymph # (Auto) 1.43 [place] # (Auto) 0.6 Eos # (Auto) 0.3 Baso # (Auto) 0.0 Abs Immat Gran (auto) 0.03 Absolute Neuts (auto) 4.9 Absolute Nucleated RBC 0.000 Nucleated RBC % 0.0 Platelet Estimate Adequate Polychromasia 1+ Hypochromasia 1+ Anisocytosis 1+ Schistocytes None seen Sodium 138 Potassium 3.8 Chloride 104 Carbon Dioxide 27 Anion Gap 7 BUN 53 H Creatinine 3.70 H Estim Creat Clear Calc 15 Estimated GFR 12 L Glucose 73 POC Capillary Glucose 60 L 74 Calcium 8.9 Total Bilirubin 0.3 AST 26 ALT 16 Alkaline Phosphatase 137 H Total Protein 7.0 Albumin 3.4 L 08/09/24 08:52 WBC RBC Hgb Hct MCV MCH MCHC RDW Plt Count MPV Immature Gran % (Auto) Neut % (Auto) Lymph % (Auto) [place] % (Auto) Eos % (Auto) Baso % (Auto) Lymph # (Auto) [place] # (Auto) Eos # (Auto) Baso # (Auto) Abs Immat Gran (auto) Absolute Neuts (auto) Absolute Nucleated RBC Nucleated RBC % Platelet Estimate Polychromasia Hypochromasia Anisocytosis Schistocytes Sodium Potassium Chloride Carbon Dioxide Anion Gap BUN Creatinine Estim Creat Clear Calc Estimated GFR Glucose POC Capillary Glucose 101 Calcium Total Bilirubin AST ALT Alkaline Phosphatase Total Protein Albumin Quality VTE Prophylaxis VTE prophylaxis: pharmacologic ordered (on apixaban)
[2024-08-09 11:31] LABS: Glucose Point of Care 297 mg/dl (65-105)
--- NOTE | 2024-08-09 11:37 | P.CONNP_ITS ---
Assessment and Plan Assessment and plan (1) ALBERTINA (acute kidney injury): Code(s): N17.9 - Acute kidney failure, unspecified Status: Acute Assessment and Plan: * elevated on admission (but close to what it was on last hospital discharge) * worsening noted during this hospitalization * presumably due to need for diuresis * holding diuretics on last hospitalization resulted in only mild improvement in renal function * check urine studies, CPK, and renal ultrasound * follow trend of repeat labs and UOP (2) Chronic kidney disease, stage IV (severe): Code(s): N18.4 - Chronic kidney disease, stage 4 (severe) Status: Chronic Assessment and Plan: * baseline creatinine fluctuates to extremes -- anywhere from 1.6 - 2.4mg/dl (in the last year) * this causes her to fluctuate between CKD stage 3b and stage 4 * due to her hypertension, diabetes, obstructive sleep apnea, gout, diastolic heart failure + diuretics, and age-related change * this may be a situation where we have to accept a higher creatinine to maintain her volume status... (3) Acute on chronic diastolic heart failure: Code(s): I50.33 - Acute on chronic diastolic (congestive) heart failure Status: Deleted Assessment and Plan: * clinical improvement noted * as noted by presentation to the ER: * bilateral LE edema + SOB + orthopnea * BNP: 1560 * admission CXR with nterstitial prominence suggesting pneumonitis or pulmonary interstitial edema. Possible minimal pleural effusions * chest CT with moderate interstitial pulmonary edema and trace bilateral pleural effusions * on IV diuretics * follow respiratory status (4) Hypertension: Qualifiers: Hypertension type: unspecified Qualified Code(s): I10 - Essential (primary) hypertension Code(s): I10 - Essential (primary) hypertension Status: Chronic Assessment and Plan: * reasonable control at this time * follow trend of hemodynamics (5) Paroxysmal atrial fibrillation: Code(s): I48.0 - Paroxysmal atrial fibrillation Status: Chronic Assessment and Plan: * rate control strategy * on anticoagulation (6) Anemia: Qualifiers: Anemia type: unspecified type Qualified Code(s): D64.9 - Anemia, unspecified Code(s): D64.9 - Anemia, unspecified Status: Acute Assessment and Plan: * partly related to CKD along with ALBERTINA and acute illness * will dose with Retacrit while hospitalized * follow trend of H/H (7) Type 2 diabetes mellitus: Code(s): E11.9 - Type 2 diabetes mellitus without complications Status: Acute Assessment and Plan: * follow accu-cheks * glycemic control per hospitalists I will continue to follow the patient with you while she remains hospitalized and make further recommendations as deemed necessary. Thank you for allowing me to participate in the care of this patient. History of Present Illness Reason for Consult Consult date: 08/09/24 Reason for consult: acute renal failure (on chronic kidney disease) Chief Complaint Chief complaint: CHF History of Present Illness Narrative: The patient is a 78-year-old female with a extensive past medical history as outlined below who presented to [facility] via EMS for further evaluation of chest pain and shortness of breath. She reports that her last several days she has noted increasing shortness of breath in association with worsening lower extremity edema and orthopnea. On the morning of admission, she felt the shortness of breath was acutely worse and was associated with chest tightness intermittently throughout the day. In spite of these symptoms, she denies any other associated symptoms with regard to syncope, fever, nausea, vomiting, diarrhea, palpitations, dizziness, or lightheadedness. As her symptoms seem to be progressively getting worse and given her known complex medical history as outlined below, she called 911 and EMS. Per EMS records, she was noted to be hypoxic at 84% on room air and with application of a non-rebreather at 15 L, there was some improvement in her oxygen saturations. EMS subsequently brought her to the emergency room for further assessment. workup and evaluation emergency room demonstrated the patient be hemo dynamically stable and afebrile. She was able to be weaned off the non- rebreather mask but still required 5 L of supplemental oxygen by nasal cannula to maintain her oxygen saturations. Routine blood test demonstrated a mildly elevated white blood cell count of 12.7, relative anemia with a hemoglobin 8.7, BUN of 35, creatinine of 2.90 mg/dL, and a mildly elevated proBNP of 15 60. Her initial troponin was negative and her chest x-ray showed evidence of bilateral pleural effusions that were small and mild pulmonary edema. Subsequent CT scan of the chest demonstrated moderate interstitial pulmonary edema and trace bilateral pleural effusions. Her EKG did not show any acute ischemic changes. It was felt that her symptoms that led to her presentation to the emergency room related to congestive heart failure and she was initiated on IV diuretic therapy and subsequently admitted to the hospital for further evaluation and therapy. since her admission, she has been seen by Cardiology and instituted on IV diuretic therapy for treatment of her CHF exacerbation. Her breathing / respiratory status has improved with diuresis but at the expense of her renal function as her creatinine has slowly worsened since admission. It should be noted the patient was just recently hospitalized here in late July 2024 with similar symptoms and she also suffered worsening renal dysfunction that required holding of her diuretics during that admission with some mild improvement in her renal function but not completely back to baseline. Her creatinine on admission here is fairly close to what it was on her last hospital discharge. Renal consultation was requested due to her acute kidney injury/acute renal failure on top of her baseline chronic kidney disease. The patient is somewhat familiar to me as I used to follow her in the office for management of her chronic kidney disease but she was lost to follow-up and I have not seen her in about 3 years. From review of her records, her baseline creatinine runs around 1.6 - 2.4 mg/dL and this wide range of extremes are likely related to her fluctuating need for more or less diuretics to maintain her volume status. As mentioned above, on admission, her creatinine was around 2.9 mg/dL and has worsened to 3.7mg/dl with IV diuresis. In effort to compensate for this trend worsening creatinine and overall renal function, her IV diuretics have been reduced. Currently, at the time my visit, she appears to be okay With still on and off issues with shortness of breath but in no acute distress. Review of Systems Review of Systems: As per HPI. [facility] Past Medical History Medical History (Updated 08/12/24 @ 11:41 by Zhanna Alfonso MD) Anemia Anxiety Ataxia Breast cancer Chronic anticoagulation Degeneration of lumbar or lumbosacral intervertebral disc Depression Diabetic peripheral neuropathy Dysphagia Hypertension Hypothyroidism Knee osteoarthritis Macular degeneration Minimal cognitive impairment Mixed hyperlipidemia Obstructive sleep apnea on CPAP Paroxysmal atrial fibrillation Restless leg syndrome Skin cancer Type 2 diabetes mellitus (1989) Venous stasis dermatitis Surgical History Surgical History History of cardiac catheterization History of cataract removal with insertion of prosthetic lens History of cholecystectomy History of coronary artery stent placement History of reconstruction of right breast History of right hip replacement (2018) History of right mastectomy Normal esophagogastroduodenoscopy (EGD) Family History Family History Father Hypertension COPD (chronic obstructive pulmonary disease) Heart disease Diabetes mellitus Mother Lung cancer Depression Sibling Acute basophilic leukemia Sepsis Diabetes mellitus Acute myocardial infarction Daughter Depression Drug overdose Sibling No problems noted. Social History Social History Social History: Surrogate medical decision maker: Luis Rome, jayne. Code status: Full code. Smoking status: Never smoker Second hand tobacco smoke exposure: Yes Alcohol intake: never Substance use: never Substance use type: does not use Do You Feel Safe in your Home?: Yes Lack of Transportation: No Lack of Food: Never True Current Housing: I Have Housing Concerned About Future Housing: No Difficulty Paying Gas/Electric Bills: No Difficulty Paying for Meds: No Currently Unemployed: No Education: High School Diploma/GED Difficulty w/ Childcare or Family Care: No Living arrangements: alone Additional living arrangements comments: . Lives alone. Has 2 children, daughter . 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 Spiritual care concerns: No Meds Home Medications and Allergies Home Medications Medication Instructions Recorded Confirmed Type divalproex 500 mg tablet,delayed 500 mg PO HS 03/06/22 08/06/24 History release (Depakote) vit C 250 mg-E 90 mg-zinc 40 1 tablet PO Q12H 03/27/23 08/06/24 History mg-copper 1 [id number] chew tablet (PreserVision AREDS-2) evolocumab 140 mg/mL subcutaneous 140 mg subcut Q14D 07/13/23 08/06/24 History pen injector (Narda Bernard) blood-glucose meter (Blood Glucose #1 ea 02/22/24 08/06/24 Rx Monitoring kit) bumetanide 2 mg tablet 2 mg PO Q12H 04/04/24 08/06/24 History calcium 600 mg (as 1 tablet PO DAILY 04/04/24 08/06/24 History carbonate)-vitamin D3 5 mcg (200 unit) tablet famotidine 20 mg tablet 20 mg PO HS 04/04/24 08/06/24 History gabapentin 100 mg capsule 100 mg PO Q8H 04/04/24 08/06/24 History (Neurontin) levothyroxine 75 mcg tablet 75 mcg PO 0630 04/04/24 08/06/24 History (Euthyrox) memantine 10 mg tablet 10 mg PO Q12H 04/04/24 08/06/24 History nystatin 100,000 unit/gram topical 1 applic topical BID PRN Rash 04/04/24 08/06/24 History ointment vitamin B complex 1 tablet PO DAILY 04/04/24 08/06/24 History apixaban 5 mg tablet (Eliquis) 5 mg PO Q12H #90 tabs 04/26/24 08/06/24 Rx omeprazole 40 mg capsule,delayed 40 mg PO DAILY laryngopharyngeal 05/03/24 08/06/24 Rx release reflux #30 caps insulin lispro 100 unit/mL 14 unit (0.14 mL) subcut .tidac 90 05/19/24 08/06/24 Rx subcutaneous pen (Humalog KwikPen days #54 mL (U-100) Insulin) insulin glargine U-300 conc 300 45 unit (0.15 mL) subcut DAILY 90 05/20/24 08/06/24 Rx unit/mL (3 mL) subcutaneous pen days #15 mL (Toujeo Max U-300 SoloStar) isosorbide dinitrate 10 mg tablet 10 mg PO Q12H #90 tabs 05/31/24 08/06/24 Rx amiodarone 200 mg tablet 200 mg PO HS #30 tabs 06/24/24 08/06/24 Rx trospium 20 mg tablet 20 mg PO Q12H #30 tabs 06/24/24 08/06/24 Rx mupirocin 2 % topical ointment 1 applic topical BID #22 grams 07/12/24 08/06/24 Rx allopurinol 100 mg tablet 100 mg PO DAILY 07/21/24 08/06/24 History bupropion HCl 150 mg 24 hr tablet, 150 mg PO DAILY 07/21/24 08/06/24 History extended release buspirone 15 mg tablet 15 mg PO DAILY 07/21/24 08/06/24 History carvedilol 6.25 mg tablet 6.25 mg PO DAILY 07/21/24 08/06/24 History pramipexole 0.25 mg tablet 0.25 mg PO BID 07/21/24 08/06/24 History venlafaxine 75 mg capsule,extended 125 mg PO DAILY 07/21/24 08/06/24 History release 24 hr (Effexor XR) Allergies Allergy/AdvReac Type Severity Reaction Status Date / Time [id number] Reductase Allergy Intermediate Other Verified 08/06/24 13:37 Inhibitor pseudoephedrine Allergy Unknown Hives Verified 08/06/24 13:37 NSAIDS (Non-Steroidal AdvReac Intermediate Other Verified 08/06/24 13:37 Anti-Inflamma oxycodone AdvReac Intermediate Itching Verified 08/06/24 13:37 atenolol AdvReac Mild Muscle Pain Verified 08/06/24 13:37 exenatide [From Bydureon] AdvReac Mild Diarrhea Verified 08/06/24 13:37 hydrocodone AdvReac Mild Itching Verified 08/06/24 13:37 [From Panlor (hydrocodone-acetamin)] prochlorperazine AdvReac Mild Itching Verified 08/06/24 13:37 [From Compazine] rice AdvReac Mild Heartburn Verified 08/06/24 13:37 Vital Signs Vital Signs Temp Pulse Resp BP Pulse Ox O2 Del Method O2 Flow Rate 08/09/24 11:03 97.5 F L 45 L 20 99/42 L 99 08/09/24 08:00 Room Air 08/09/24 08:41 106 H 08/09/24 04:00 49 L 08/09/24 00:00 52 L 08/09/24 05:26 97.0 F L 52 L 18 112/50 L 98 08/08/24 21:48 98.0 F 71 18 120/58 L 96 08/08/24 20:00 70 08/08/24 20:00 Room Air 08/08/24 16:00 67 08/08/24 15:53 Nasal Cannula 2 Exam Narrative: GENERAL APPEARANCE: elderly but well developed well nourished female in no acute distress HEENT: normocephalic, atraumatic, normal conjunctiva and sclera, nares patient NECK: no lymphadenopathy, thyromegaly, or JVD MOUTH: normal lips, teeth, and gums CARDIOVASCULAR: RRR, normal S1 and S2, no rub RESPIRATORY: decreased at bases ABDOMEN: soft, nontender, nondistended, positive bowel sounds present EXTREMITIES: no evidence of cyanosis, clubbing, trace edema NEUROLOGICAL: alert and oriented x 3; CN II - XII intact bilaterally; no focal deficits noted Results Lab Results 08/13/24 06:48 08/13/24 06:48 Lab results: Most recent lab results Calcium 8.9 mg/dL (8.4-10.2) 08/09/24 06:30 Magnesium 2.6 mg/dL (1.6-2.3) H 08/07/24 06:24 Urine Creatinine 246.0 mg/dL 08/09/24 13:46 Urine Creatinine 252.2 mg/dL 08/09/24 13:46
[2024-08-09] MEDS: INSULIN ASPART (*BKC) 100 UNITS/ML SUB-Q ×3 (11:59→22:27)
--- NOTE | 2024-08-09 14:02 | ECG_ITS ---
Test Date: 2024-08-09 14:06:55 Measurements Intervals [place] Rate: 46 P: 90 NE: 187 QRS: 50 QRSD: 98 T: 45 QT: 477 QTc: 418 Interpretive Statements SINUS BRADYCARDIA ST ELEVATION, PROBABLY EARLY REPOLARIZATION [ST ELEVATION WITH NORMALLY INFLECTED T-WAVE] Compared to ECG 08/06/2024 16:46:59 ST (T wave) deviation now present Electronically Signed On 08-09-2024 15:33:52 [employer] by Zhanna Alfonso M.D.
[2024-08-09 14:31] LABS: Creatinine Urine 252.2 mg/dL; Urea Random Urine 163 MG/DL
[2024-08-09 14:35] LABS: Sodium Urine Random 38 meq/L
[2024-08-09 15:03] LABS: Total Protein Urine Random 504 mg/dL
[2024-08-09 15:42] LABS: Total Protein Urine Random 499 mg/dL; Ur Ttl Prot Creatinine Ratio 2.03 mg/mg (0-0.20)
[2024-08-09 16:12] LABS: Alveolar/Arterial O2 Gradient 24.2 mmHg; Base Excess ABG -5.5 mEq/l (+/-2.0); Fractional Inspired Oxygen 21 %; HCO3 ABG 20.1 mEq/l (22.0-26.0); Oxygen Content ABG 11.2 %vol (16.0-22.0); Oxygen Saturation ABG 94.6 % (95.0-100.0); Oxyhemoglobin 93.5 % THb (90.0-100.0); PCO2 ABG 39.8 mmHg (35.0-45.0); PO2 ABG 77.9 mmHg (80.0-100.0); PO2 FiO2 Ratio Arterial Blood 3.71 %; Total Hemoglobin 8.4 g/dL (12.0-18.0); pH ABG 7.321 (7.350-7.450)
[2024-08-09 16:16] LABS: Device ROOM AIR; Site Drawn RIGHT BRACHIAL
[2024-08-09 16:24] LABS: Glucose Point of Care 205 mg/dl (65-105)
[2024-08-09 20:13] LABS: Glucose Point of Care 266 mg/dl (65-105)
[2024-08-09] MEDS: FAMOTIDINE 20 MG TABLET PO (22:20)
[2024-08-09] MEDS: DIVALPROEX SODIUM ER 500 MG TAB.24H PO (22:20)
[2024-08-10] VITALS (12 sets, daily range): BP systolic 118–131; BP diastolic 48–98; PULSE 50–106; RESP 14–18; TEMP 36–36.6; O2SAT 94–100
[2024-08-10] MEDS: LEVOTHYROXINE SODIUM 100 MCG TABLET PO (05:30)
[2024-08-10 07:08] LABS: Basophils Absolute Auto 0.1 K/mm3 (0.0-0.1); Basophils Percent Auto 0.6 % (0.2-1.2); Eosinophils Absolute Auto 0.4 K/mm3 (0-0.3); Eosinophils Percent Auto 4.6 % (0-4.4); Hematocrit 25.8 % (37.0-47.0); Hemoglobin 7.5 g/dL (12.0-15.0); Immature Granulocyte Absolute 0.05 K/mm3 (0.00-0.031); Immature Granulocyte Percent A 0.6 % (0-0.5); Lymphocytes Absolute Auto 1.16 K/mm3 (0.9-3.2); Lymphocytes Percent Auto 14.5 % (18.3-44.2); Mean Corpuscular HGB Conc 29.1 g/dl (32-36); Mean Corpuscular Hemoglobin 27.2 pg (26-34); Mean Corpuscular Volume 93.5 fl (80-100); Monocytes Absolute Auto 0.5 K/mm3 (0.1-0.6); Monocytes Percent Auto 6.6 % (2.6-8.5); Neutrophils Absolute Auto 5.9 K/mm3 (1.3-6.7); Neutrophils Percent Auto 73.1 % (45.5-73.1); Platelet Count Result 271 k/mm3 (150-375); Red Blood Count 2.76 M/mm3 (4.2-5.4); Red Cell Distribution Width 17.1 % (11.5-14.5)
[2024-08-10 07:46] LABS: Alanine Aminotransferase 23 U/L (6-35); Albumin Level 3.4 g/dL (3.5-5.1); Alkaline Phosphatase 176 U/L (38-126); Anion Gap 7 mmol/L (4-12); Aspartate Amino Transferase 28 U/L (14-36); Bilirubin,Total 0.4 mg/dL (0.2-1.3); Blood Urea Nitrogen 61 mg/dL (7-17); Calcium 8.9 mg/dL (8.4-10.2); Carbon Dioxide 26 mmol/L (22-30); Chloride 103 mmol/L (98-107); Creatine Kinase 140 U/L (30-135); Estimated CRCL calculation 15 ml/min; Estimated Glomerular Filt Rate 11; Glucose 204 mg/dL (65-110); Potassium 4.4 mmol/L (3.4-5.0); Sodium 136 mmol/L (137-145)
[2024-08-10 08:07] LABS: Glucose Point of Care 206 mg/dl (65-105)
[2024-08-10 08:18] LABS: Platelet Estimate Adequate (Adequate)
[2024-08-10 08:19] LABS: Anisocytosis 1+; Hypochromasia 1+; Schistocytes None Seen
[2024-08-10] MEDS: CALCIUM/VITAMIN D 500 MG/5 MCG (200 I.U.) TABLET PO (08:39)
[2024-08-10] MEDS: MEMANTINE 10 MG TABLET PO ×2 (08:39→21:09)
[2024-08-10] MEDS: VENLAFAXINE HCL 25 MG TABLET 50 MG BY MOUTH ×2 (08:39→21:09)
[2024-08-10] MEDS: allopurinoL 100 MG TABLET PO (08:39)
[2024-08-10] MEDS: busPIRone HCL 5 MG TABLET 15 MG PO (08:39)
[2024-08-10] MEDS: PANTOPRAZOLE 40 MG TABLET PO ×2 (08:39→21:09)
[2024-08-10] MEDS: APIXABAN 5 MG TABLET PO ×2 (08:39→21:09)
[2024-08-10] MEDS: ISOSORBIDE DINITRATE 5 MG TABLET PO ×2 (08:39→21:10)
[2024-08-10] MEDS: PRAMIPEXOLE 0.25 MG TABLET PO ×2 (08:40→21:09)
[2024-08-10] MEDS: OPTI-GEN TAB 1 TABLET PO ×2 (08:40→21:09)
[2024-08-10] MEDS: GABAPENTIN 100 MG CAPSULE PO ×3 (08:40→16:31)
[2024-08-10] MEDS: FERROUS SULFATE DRIED 142 MG TABCR PO (08:40)
[2024-08-10] MEDS: buPROPion HCL XL (24 HR) 150 MG TABCR PO (08:40)
[2024-08-10] MEDS: VENLAFAXINE HCL 75 MG TABLET BY MOUTH ×2 (08:40→21:09)
[2024-08-10] MEDS: VITAMIN B COMPLEX CAPSULE 1 CAP PO (08:40)
[2024-08-10] MEDS: MUPIROCIN 2% OINT 22 GM TUBE 1 APPLIC TOPICAL ×2 (08:41→16:31)
[2024-08-10] MEDS: BUMETANIDE INJ 1 MG/4 ML VIAL IV PUSH (08:47)
[2024-08-10] MEDS: INSULIN GLARGINE (*BKC) 100 UNITS/ML 40 UNITS SUB-Q (08:47)
[2024-08-10] MEDS: INSULIN ASPART (*BKC) 100 UNITS/ML SUB-Q ×3 (08:49→17:14)
--- NOTE | 2024-08-10 10:28 | P.PNIM_ITS ---
Progress Note: A&P Assessment and Plan (1) Acute respiratory failure with hypoxia: Code(s): J96.01 - Acute respiratory failure with hypoxia Status: Acute Assessment and Plan: Per chart review, according to EMS her SpO2 was 84% on room air and she was placed on a non-rebreather at 15 L with some improvement. Baseline RA. Likely secondary to CHF exacerbation. - Back to baseline RA - Wean as tolerated for SpO2 > 90 (2) CHF exacerbation: Code(s): I50.9 - Heart failure, unspecified Status: Acute Assessment and Plan: - Symptoms: shortness of breath with BLE edema and orthopnea She was having some chest discomfort with increased work of breathing earlier -but it is all resolved Pulmonary embolism seems less likely as she is on chronic anticoagulation. - Current medications: Bumex 1 mg IV daily - BNP: 1560 - EKG: without ST segment changes and troponin has been negative x2. - Chest XR: Interstitial prominence suggesting pneumonitis or pulmonary interstitial edema. Possible minimal pleural effusions. Normal heart size. Coronary stent - Chest CT: Moderate interstitial pulmonary edema. Trace bilateral pleural effusions. - Echo 04/08/2024: LVEF 65-70% with grade I diastolic dysfunction - Monitor vital signs, I&Os, BUN/creatinine, daily weights, neuro status and patient is a fall risk - Monitor serum electrolytes, Keep serum Potassium>4 and serum Magnesium>2 and CBC (3) Acute kidney injury superimposed on chronic kidney disease: Code(s): N17.9 - Acute kidney failure, unspecified; N18.9 - Chronic kidney disease, unspecified Status: Acute Assessment and Plan: Per nephrology note on 07/29, baseline creatinine fluctuates to extremes -- anywhere from 1.6 - 2.4mg/dl (in the last year) - BUN/Cr 53/3.7 on am labs - Worsening Cr likely related to patients ongoing diuresis for CHF exacerbation (Bumex made daily instead of BID) vs overcontrol of her BP per nephrology note consider having BP range closer to 150s systolic - Monitor renal function and I/O - Avoid nephrotoxic medications - Renally dose medications - Nephrology consulted, appreciate recommendations if stable -anticipate discharge in the next few days (4) Anemia: Qualifiers: Anemia type: unspecified type Qualified Code(s): D64.9 - Anemia, unspecified Code(s): D64.9 - Anemia, unspecified Status: Acute Assessment and Plan: Iron low -started on iron supplementation - f/u with pcp in 2-3 month for recheck (5) Coronary artery disease: Code(s): I25.10 - Atherosclerotic heart disease of [place] coronary artery without angina pectoris Status: Acute Assessment and Plan: Chronic, continue home medications. (6) Type 2 diabetes mellitus with hyperglycemia, with long-term current use of insulin: Code(s): E11.65 - Type 2 diabetes mellitus with hyperglycemia; Z79.4 - terminal carman (current) use of insulin Status: Chronic Assessment and Plan: home insulin toujeo- 45 units at hs, ss14 units of lispro Continue basal insulin. Initiate sliding scale insulin, Accu-Cheks, and hypoglycemic protocol. (7) Obstructive sleep apnea on CPAP: Code(s): G47.33 - Obstructive sleep apnea (adult) (pediatric); Z99.89 - Dependence on other enabling machines and devices Status: Chronic Assessment and Plan: Does not use CPAP at home. ABG ordered. (8) Hypothyroidism (acquired): Code(s): E03.9 - Hypothyroidism, unspecified Status: Acute Assessment [place]: [place] [id number] currently on 75 mcg levothyroxine Will increase to 100 mcg on 08/07 and will need TSH recheck in 6-8 weeks as an outtpt- mid to end of October Time Spent With Patient Time with patient: Greater than 35 minutes Subjective Date/time seen: 08/10/24 10:28 Interval history: 78-year-old female with coronary artery disease and history of stents, paroxysmal atrial fibrillation on anticoagulation, diastolic congestive heart failure, pulmonary hypertension, obstructive sleep apnea on CPAP, hypertension, hyperlipidemia, chronic kidney disease, anemia, type 2 diabetes mellitus, memory impairment, C difficile diarrhea, depression, suicide attempt in April 2024, and other comorbidities who presented to the emergency department via EMS from home for evaluation of chest pain and shortness of breath. Patient is pleasant sitting up in her chair. She states that she is not feeling good but better than yesterday. She continues to endorse shortness of breath and a dry cough. She was weaned back to room air. She has no other complaints denying chest pain, palpitations, nausea/vomiting and abdominal pain. Received a phone call from patients RN. Per RN patient stood from her chair and had a possible syncopal episode. Patient has been bradycardic on tele. EKG showing sinus snehal. Patient found to be hypotensive. Orthostatics ordered. ABG also ordered given that patient does not wear a CPAP at night despite having ANDREA history. Returned to patients room and she remains AOx4 with friend at bedside. Patient states that she did not faint, her legs just gave out on her after standing up to walk to the stretcher. 08/10- pt is seen and examined resting in bed. Review of Systems Review of Systems: 12 systems were reviewed and are negativ e except for as per HPI. Exam Narrative: AF HR 65 RR 20 SPO2 99 BP 110/50 General: female in no acute respiratory distress who is nontoxic appearing, lying semi recumbent in bed. HEENT: Normocephalic. Atraumatic. Extraocular movement intact. Sclera clear and anicteric. No facial asymmetry. Chest: Lungs are diminished to auscultation bilaterally with lower base crac kles. No wheezes. CV: Heart was regular rate and rhythm. S1-S2. No murmurs, gallops, or rubs. Abd: Abdomen was soft. Nontender. Nondistended. Positive bowel sounds. No organomegaly or masses. Ext: No clubbing, cyanosis, or edema. 2+ DP pulses bilaterally. Neuro: Patient is alert and oriented x3 (person, place, year). Cranial nerves 2- 12 are intact. Speech is clear. Objective Data Vital Signs Vital Signs: Vital Signs - 24 hr 08/09/24 13:53 08/09/24 13:54 08/09/24 12:00 Temperature 97.5 F L Pulse Rate 45 L 44 L Respiratory Rate 20 Blood Pressure 99/42 L 110/50 L Pulse Oximetry 99 Oxygen Delivery 08/09/24 16:00 08/09/24 20:21 08/09/24 21:22 Temperature 97.1 F L Pulse Rate 45 L 51 L 50 L Respiratory Rate 16 17 Blood Pressure 121/57 L Pulse Oximetry 98 97 Oxygen Delivery Autopap 08/09/24 20:00 08/09/24 20:00 08/10/24 00:00 Temperature Pulse Rate 50 L 50 L Respiratory Rate Blood Pressure Pulse Oximetry Oxygen Delivery Room Air 08/10/24 04:00 08/10/24 05:57 08/10/24 08:00 Temperature 96.9 F L Pulse Rate 51 L 51 L 54 L Respiratory Rate 14 Blood Pressure 127/53 L Pulse Oximetry 94 Oxygen Delivery 08/10/24 08:00 Temperature 97.9 F Pulse Rate 86 Respiratory Rate 18 Blood Pressure 126/48 L Pulse Oximetry 100 Oxygen Delivery Intake/Output Intake/Output: Intake & Output 08/07/24 08/08/24 08/09/24 08/10/24 23:59 23:59 23:59 23:59 Intake Total 540 070 3681 490 Output Total 300 750 400 150 Balance 380 -30 940 340 Meds/Results Medications: Active Medications Generic Name Dose Route Start Last Admin Trade Name Freq PRN Reason Stop Dose Admin Acetaminophen 650 mg 08/06/24 22:10 08/09/24 08:40 Acetaminophen 325 Mg Tablet PO 650 mg Q6H PRN Administration Mild Pain (1-3) or Fever Allopurinol 100 mg 08/07/24 09:00 08/10/24 08:39 Allopurinol 100 Mg Tablet PO 100 mg DAILY NICOLE Administration Amiodarone HCl 200 mg 08/06/24 21:15 08/09/24 22:21 Amiodarone Hcl 200 Mg Tablet PO Not Given HS NICOLE Apixaban 5 mg 08/06/24 21:20 08/10/24 08:39 Apixaban 5 Mg Tablet PO 5 mg Q12HR NICOLE Administration Bumetanide 1 mg 08/10/24 09:00 08/10/24 08:47 Bumetanide Inj 1 Mg/4 Ml Vial IV PUSH 1 mg DAILY NICOLE Administration Bupropion HCl 150 mg 08/07/24 09:00 08/10/24 08:40 Bupropion Hcl Xl (24 Hr) 150 Mg Tabcr PO 150 mg DAILY NICOLE Administration Buspirone HCl 15 mg 08/07/24 09:00 08/10/24 08:39 Buspirone Hcl 5 Mg Tablet PO 15 mg DAILY NICOLE Administration Calcium Carbonate 500 mg 08/07/24 09:00 08/10/24 08:39 Calcium/Vitamin D 500 Mg/5 Mcg (200 I.U.) Tablet PO 500 mg QAM NICOLE Administration Carvedilol 6.25 mg 08/06/24 21:45 08/09/24 08:41 Carvedilol 6.25 Mg Tablet PO 6.25 mg Q12HR NICOLE Administration Dextrose 12.5 gm 08/06/24 22:10 Dextrose 50% 25 Gm/50 Ml Syringe IV PUSH PRN PRN Hypoglycemia Protocol Divalproex Sodium 500 mg 08/06/24 21:50 08/09/24 22:20 Divalproex Sodium Er 500 Mg Tab.24h PO 500 mg HS NICOLE Administration Famotidine 20 mg 08/06/24 21:20 08/09/24 22:20 Famotidine 20 Mg Tablet PO 20 mg HS NICOLE Administration Ferrous Sulfate 142 mg 08/08/24 08:00 08/10/24 08:40 Ferrous Sulfate Dried 142 Mg Tabcr PO 142 mg DAILY@0800 NICOLE Administration Gabapentin 100 mg 08/07/24 09:00 08/10/24 08:40 Gabapentin 100 Mg Capsule PO 100 mg TID NICOLE Administration Glucagon 1 mg 08/06/24 22:10 Glucagon For Inj 1 Mg Vial IM PRN PRN Hypoglycemia Protocol Glucose 15 gm 08/06/24 22:10 Glucose Oral Gel 15 Gm Of Glucse In 37.5 Gm Tube PO PRN PRN Hypoglycemia Protocol Dextrose 1,000 mls @ 100 mls/hr 08/06/24 22:10 Dextrose 5% 1,000 Ml IVPB PRN PRN Hypoglycemia Protocol Insulin Aspart 3 - 6 units 08/07/24 08:00 08/10/24 08:49 Insulin Aspart (*Bkc) 100 Units/Ml SUB-Q 3 units TIDWM NICOLE Administration Protocol Insulin Aspart 1 - 3 units 08/07/24 21:00 08/09/24 22:27 Insulin Aspart (*Bkc) 100 Units/Ml SUB-Q 2 units HS NICOLE Administration Protocol Insulin Glargine 40 units 08/07/24 09:00 08/10/24 08:47 Insulin Glargine (*Bkc) 100 Units/Ml SUB-Q 40 units DAILY NICOLE Administration Isosorbide Dinitrate 5 mg 08/09/24 21:00 08/10/24 08:39 Isosorbide Dinitrate 5 Mg Tablet PO 5 mg Q12HR NICOLE Administration Levothyroxine Sodium 100 mcg 08/08/24 06:30 08/10/24 05:30 Levothyroxine Sodium 100 Mcg Tablet PO 100 mcg DAILY@0630 NICOLE Administration Memantine 10 mg 08/06/24 21:15 08/10/24 08:39 Memantine 10 Mg Tablet PO 10 mg Q12HR [facility] Administration Miscellaneous Information 1 each 08/06/24 00:01 08/10/24 02:27 Evolocumab [Repatha Sureclick] 140 Mg/Ml Pen Injector) Is Nonformulary, Can Patient Bring XX 09/05/24 00:00 Not Given [facility] Miscellaneous Information 1 each 08/06/24 00:01 08/10/24 02:26 (Trospium 20 Mg Tablet) Is Nonformulary, Can Patient Bring From Home? XX 09/05/24 00:00 Not Given [facility] Multivitamins/Minerals 1 tablet 08/07/24 09:00 08/10/24 08:40 Opti-Gen Tab PO 1 tablet Q12HR [facility] Administration Mupirocin 1 applic 08/07/24 09:00 08/10/24 08:41 Mupirocin 2% Oint 22 Gm Tube TOPICAL 1 applic BID NICOLE Administration Non-Formulary Medication 140 mg 08/06/24 21:15 Evolocumab [Repatha Sureclick] SUB-Q 09/05/24 21:14 Q14D NICOLE Non-Formulary Medication 14 unit 08/06/24 21:15 Insulin Lispro [Humalog Kwikpen Insulin] SUB-Q 09/05/24 21:14 .tidac NICOLE Non-Formulary Medication 20 mg 08/06/24 21:15 Trospium PO 09/05/24 21:14 Q12H NICOLE Nystatin 1 applic 08/06/24 21:12 Nystatin Ointment 15 Gm Tube TOPICAL BID PRN Rash Pantoprazole Sodium 40 mg 08/07/24 09:00 08/10/24 08:39 Pantoprazole 40 Mg Tablet PO 40 mg Q12HR NICOLE Administration Pramipexole Dihydrochloride 0.25 mg 08/06/24 21:30 08/10/24 08:40 Pramipexole 0.25 Mg Tablet PO 0.25 mg Q12HR NICOLE Administration Venlafaxine HCl 75 mg 08/07/24 09:00 08/10/24 08:40 Venlafaxine Hcl 75 Mg Tablet BY MOUTH 75 mg Q12HR NICOLE Administration Venlafaxine HCl 50 mg 08/07/24 09:00 08/10/24 08:39 Venlafaxine Hcl 25 Mg Tablet BY MOUTH 50 mg Q12HR NICOLE Administration Vitamin B Complex 1 cap 08/07/24 09:00 08/10/24 08:40 Vitamin B Complex Capsule PO 1 cap DAILY NICOLE Administration Radiology Results: ITS Impressions Chest X-Ray 08/06/24 13:45 IMPRESSION: Interstitial prominence suggesting pneumonitis or pulmonary interstitial edema. Possible minimal pleural effusions Normal heart size Coronary stent Chest CT 08/06/24 15:17 IMPRESSION: Moderate interstitial pulmonary edema. Trace bilateral pleural effusions. Renal Ultrasound 08/09/24 13:35 IMPRESSION: 1. Normal kidneys. No hydronephrosis. Labs Labs: Laboratory Results - last 24 hr 08/09/24 08/09/24 08/09/24 11:28 13:46 13:46 WBC RBC Hgb Hct MCV MCH MCHC RDW Plt Count MPV Immature Gran % (Auto) Neut % (Auto) Lymph % (Auto) Reagan % (Auto) Eos % (Auto) Baso % (Auto) Lymph # (Auto) Reagan # (Auto) Eos # (Auto) Baso # (Auto) Abs Immat Gran (auto) Absolute Neuts (auto) Absolute Nucleated RBC Nucleated RBC % Platelet Estimate Hypochromasia Anisocytosis Schistocytes Puncture Site ABG pH ABG pCO2 ABG pO2 ABG PO2/FiO2 Ratio ABG HCO3 ABG O2 Saturation ABG O2 Content ABG Base Excess A-a Gradient Oxyhemoglobin Total Hemoglobin O2 Delivery Device O2 Liters/Min FiO2 Sodium Potassium Chloride Carbon Dioxide Anion Gap BUN Creatinine Estim Creat Clear Calc Estimated GFR Glucose POC Capillary Glucose 297 H Calcium Total Bilirubin AST ALT Alkaline Phosphatase Total Creatine Kinase Total Protein Albumin Urine Color Cancelled Urine Appearance Cancelled Urine pH Cancelled Ur Specific [place] Cancelled Urine Protein Cancelled Urine Glucose (UA) Cancelled Urine Ketones Cancelled Ur Blood (Man) Cancelled Urine Nitrate Cancelled Urine Bilirubin Cancelled Urine Urobilinogen Cancelled Add Ur Microanalysis Cancelled Leukocyte Esterase Rfl Cancelled Urine RBC Cancelled Urine WBC Cancelled Urine WBC Clumps Cancelled Ur Squamous Epith Cells Cancelled Ur Transition Epith Cell Cancelled Ur Renal Epithelial Cell Cancelled Kg Biurate Crystals Cancelled Calcium Carbonate Cryst Cancelled Calcium Phosphate Cryst Cancelled Calcium Oxalate Crystal Cancelled Leucine Crystals Cancelled Cystine Crystals Cancelled Uric Acid Crystals Cancelled Triple Phos Crystals Cancelled Sulfonamide Crystals Cancelled Cholesterol Crystals Cancelled Talc Crystals Cancelled Tyrosine Crystals Cancelled Hippuric Acid Crystals Cancelled Bilirubin Crystals Cancelled Other Crystals Cancelled Amorphous Sediment Cancelled Other Sediment Cancelled Urine Bacteria Cancelled Urine Casts Cancelled Cellular Casts Cancelled Epithelial Casts Cancelled Fatty Casts Cancelled Hyaline Casts Cancelled Granular Casts Cancelled Waxy Casts Cancelled Broad Casts Cancelled RBC Casts Cancelled WBC Casts Cancelled Urine Starch Cancelled Urine Mucus Cancelled Urine Trichomonas Cancelled Urine Yeast (Budding) Cancelled Ur Oval Fat Bodies Cancelled Urine Eosinophils Cancelled U Random Total Protein 504 499 Ur Random Sodium 38 Ur Random Urea 163 Urine Creatinine 252.2 Protein/Creat Ratio 2 Sperm Presence 08/09/24 08/09/24 08/09/24 13:46 16:05 16:20 WBC RBC Hgb Hct MCV MCH MCHC RDW Plt Count MPV Immature Gran % (Auto) Neut % (Auto) Lymph % (Auto) [place] % (Auto) Eos % (Auto) Baso % (Auto) Lymph # (Auto) [place] # (Auto) Eos # (Auto) Baso # (Auto) Abs Immat Gran (auto) Absolute Neuts (auto) Absolute Nucleated RBC Nucleated RBC % Platelet Estimate Hypochromasia Anisocytosis Schistocytes Puncture Site Right brachial ABG pH 7.321 L ABG pCO2 39.8 ABG pO2 77.9 L ABG PO2/FiO2 Ratio 3.71 ABG HCO3 20.1 L ABG O2 Saturation 94.6 L ABG O2 Content 11.2 L ABG Base Excess -5.5 A-a Gradient 24.2 Oxyhemoglobin 93.5 Total Hemoglobin 8.4 L O2 Delivery Device Room air O2 Liters/Min Not Reportable FiO2 21 Sodium Potassium Chloride Carbon Dioxide Anion Gap BUN Creatinine Estim Creat Clear Calc Estimated GFR Glucose POC Capillary Glucose 205 H Calcium Total Bilirubin AST ALT Alkaline Phosphatase Total Creatine Kinase Total Protein Albumin Urine Color Urine Appearance Urine pH Ur Specific [place] Urine Protein Urine Glucose (UA) Urine Ketones Ur Blood (Man) Urine Nitrate Urine Bilirubin Urine Urobilinogen Add Ur Microanalysis Leukocyte Esterase Rfl Urine RBC Urine WBC Urine WBC Clumps Ur Squamous Epith Cells Ur Transition Epith Cell Ur Renal Epithelial Cell [place] Biurate Crystals Calcium Carbonate Cryst Calcium Phosphate Cryst Calcium Oxalate Crystal Leucine Crystals Cystine Crystals Uric Acid Crystals Triple Phos Crystals Sulfonamide Crystals Cholesterol Crystals Talc Crystals Tyrosine Crystals Hippuric Acid Crystals Bilirubin Crystals Other Crystals Amorphous Sediment Other Sediment Urine Bacteria Urine Casts Cellular Casts Epithelial Casts Fatty Casts Hyaline Casts Granular Casts Waxy Casts Broad Casts RBC Casts WBC Casts Urine Starch Urine Mucus Urine Trichomonas Urine Yeast (Budding) Ur Oval Fat Bodies Urine Eosinophils U Random Total Protein Ur Random Sodium Ur Random Urea Urine Creatinine 246.0 Protein/Creat Ratio 2 2.03 H Sperm Presence Cancelled 08/09/24 08/10/24 08/10/24 20:09 06:47 08:04 WBC 8.0 RBC 2.76 L Hgb 7.5 L Hct 25.8 L MCV 93.5 MCH 27.2 MCHC 29.1 L RDW 17.1 H Plt Count 271 MPV 10.0 Immature Gran % (Auto) 0.6 H Neut % (Auto) 73.1 Lymph % (Auto) 14.5 L [place] % (Auto) 6.6 Eos % (Auto) 4.6 H Baso % (Auto) 0.6 Lymph # (Auto) 1.16 Reagan # (Auto) 0.5 Eos # (Auto) 0.4 H Baso # (Auto) 0.1 Abs Immat Gran (auto) 0.05 H Absolute Neuts (auto) 5.9 Absolute Nucleated RBC 0.000 Nucleated RBC % 0.0 Platelet Estimate Adequate Hypochromasia 1+ Anisocytosis 1+ Schistocytes None seen Puncture Site ABG pH ABG pCO2 ABG pO2 ABG PO2/FiO2 Ratio ABG HCO3 ABG O2 Saturation ABG O2 Content ABG Base Excess A-a Gradient Oxyhemoglobin Total Hemoglobin O2 Delivery Device O2 Liters/Min FiO2 Sodium 136 L Potassium 4.4 Chloride 103 Carbon Dioxide 26 Anion Gap 7 BUN 61 H Creatinine 3.90 H Estim Creat Clear Calc 15 Estimated GFR 11 L Glucose 204 H POC Capillary Glucose 266 H 206 H Calcium 8.9 Total Bilirubin 0.4 AST 28 ALT 23 Alkaline Phosphatase 176 H Total Creatine Kinase 140 H Total Protein 7.0 Albumin 3.4 L Urine Color Urine Appearance Urine pH Ur Specific [place] Urine Protein Urine Glucose (UA) Urine Ketones Ur Blood (Man) Urine Nitrate Urine Bilirubin Urine Urobilinogen Add Ur Microanalysis Leukocyte Esterase Rfl Urine RBC Urine WBC Urine WBC Clumps Ur Squamous Epith Cells Ur Transition Epith Cell Ur Renal Epithelial Cell [place] Biurate Crystals Calcium Carbonate Cryst Calcium Phosphate Cryst Calcium Oxalate Crystal Leucine Crystals Cystine Crystals Uric Acid Crystals Triple Phos Crystals Sulfonamide Crystals Cholesterol Crystals Talc Crystals Tyrosine Crystals Hippuric Acid Crystals Bilirubin Crystals Other Crystals Amorphous Sediment Other Sediment Urine Bacteria Urine Casts Cellular Casts Epithelial Casts Fatty Casts Hyaline Casts Granular Casts Waxy Casts Broad Casts RBC Casts WBC Casts Urine Starch Urine Mucus Urine Trichomonas Urine Yeast (Budding) Ur Oval Fat Bodies Urine Eosinophils U Random Total Protein Ur Random Sodium Ur Random Urea Urine Creatinine Protein/Creat Ratio 2 Sperm Presence Quality VTE Prophylaxis VTE prophylaxis: pharmacologic ordered (on apixaban)
[2024-08-10 12:13] LABS: Glucose Point of Care 350 mg/dl (65-105)
--- NOTE | 2024-08-10 13:20 | PM.PNNEP ---
Progress Note: A&P Assessment and Plan (1) ALBERTINA (acute kidney injury): Code(s): N17.9 - Acute kidney failure, unspecified Status: Acute Assessment and Plan: elevated on admission (but close to what it was on last hospital discharge) worsening noted during this hospitalization presumably due to need for diuresis holding diuretics on last hospitalization resulted in only mild improvement in renal function (and may have precipitated re-admission) evaluation noted: renal u/s normal CPK slightly elevated (but not likely to affect kidney function) urine electrolytes prerenal UA negative for infection by culture moderate proteinuria follow trend of repeat labs and UOP (2) Chronic kidney disease, stage IV (severe): Code(s): N18.4 - Chronic kidney disease, stage 4 (severe) Status: Chronic Assessment and Plan: baseline creatinine fluctuates to extremes -- anywhere from 1.6 - 2.4mg/dl (in the last year) this causes her to fluctuate between CKD stage 3b and stage 4 due to her hypertension, diabetes, obstructive sleep apnea, gout, diastolic heart failure + diuretics, and age-related change this may be a situation where we have to accept a higher creatinine to maintain her volume status... (3) Acute on chronic diastolic heart failure: Code(s): I50.33 - Acute on chronic diastolic (congestive) heart failure Status: Deleted Assessment and Plan: clinical improvement noted as noted by presentation to the ER: bilateral LE edema + SOB + orthopnea BNP: 1560 admission CXR with nterstitial prominence suggesting pneumonitis or pulmonary interstitial edema. Possible minimal pleural effusions chest CT with moderate interstitial pulmonary edema. Trace bilateral pleural effusions on IV diuretics (but reduced frequency) follow respiratory status (4) Hypertension: Qualifiers: Hypertension type: unspecified Qualified Code(s): I10 - Essential (primary) hypertension Code(s): I10 - Essential (primary) hypertension Status: Chronic Assessment and Plan: reasonable control at this time follow trend of hemodynamics (5) Paroxysmal atrial fibrillation: Code(s): I48.0 - Paroxysmal atrial fibrillation Status: Chronic Assessment and Plan: rate control strategy on anticoagulation (6) Anemia: Qualifiers: Anemia type: unspecified type Qualified Code(s): D64.9 - Anemia, unspecified Code(s): D64.9 - Anemia, unspecified Status: Acute Assessment and Plan: partly related to CKD along with ALBERTINA and acute illness will dose with Retacrit while hospitalized PRBC transfusion per protocol follow trend of H/H (7) Type 2 diabetes mellitus: Code(s): E11.9 - Type 2 diabetes mellitus without complications Status: Acute Assessment and Plan: follow accu-cheks glycemic control per hospitalists Will continue to follow. Subjective Date/time seen: 08/10/24 13:20 Interval history: Follow-up for acute kidney injury/acute renal failure on chronic kidney disease. Breathing/respiratory status seems relatively stable if not better at the time of my visit; renal function/creatinine slightly worse by recent labs despite reduced diuretic therapy; no apparent distress voiced when seen. Exam Narrative: General: elderly but WD/WN female in NAD Heart: normal S1 and S2; no rub Lungs: clear anteriorly; decreased at bases with a few crackles Abdomen: soft, nontender, nondistended, positive bowel sounds Extremities: no cyanosis or clubbing; trace edema Skin: warm and dry Objective Data Vital Signs Vital Signs: Vital Signs Temp Pulse Resp BP Pulse Ox O2 Del Method 08/10/24 12:00 96.8 F L 54 L 18 131/55 L 99 08/10/24 08:00 Room Air 08/10/24 08:00 97.9 F 86 18 126/48 L 100 08/10/24 08:00 54 L 08/10/24 05:57 96.9 F L 51 L 14 127/53 L 94 08/10/24 04:00 51 L 08/10/24 00:00 50 L 08/09/24 21:22 97.1 F L 50 L 17 121/57 L 97 Intake/Output Intake/Output: Intake & Output 08/07/24 08/08/24 08/09/24 08/10/24 23:59 23:59 23:59 23:59 Intake Total 614 485 3652 1476 Output Total 300 750 400 151 Balance 380 -30 940 1325 Meds/Results Medications: Active Medications Generic Name Dose Route Start Last Admin Trade Name Freq PRN Reason Stop Dose Admin Acetaminophen 650 mg 08/06/24 22:10 08/09/24 08:40 Acetaminophen 325 Mg Tablet PO 650 mg Q6H PRN Administration Mild Pain (1-3) or Fever Allopurinol 100 mg 08/07/24 09:00 08/10/24 08:39 Allopurinol 100 Mg Tablet PO 100 mg DAILY NICOLE Administration Amiodarone HCl 200 mg 08/06/24 21:15 08/09/24 22:21 Amiodarone Hcl 200 Mg Tablet PO Not Given HS NICOLE Apixaban 5 mg 08/06/24 21:20 08/10/24 08:39 Apixaban 5 Mg Tablet PO 5 mg Q12HR NICOLE Administration Bumetanide 1 mg 08/10/24 09:00 08/10/24 08:47 Bumetanide Inj 1 Mg/4 Ml Vial IV PUSH 1 mg DAILY NICOLE Administration Bupropion HCl 150 mg 08/07/24 09:00 08/10/24 08:40 Bupropion Hcl Xl (24 Hr) 150 Mg Tabcr PO 150 mg DAILY NICOLE Administration Buspirone HCl 15 mg 08/07/24 09:00 08/10/24 08:39 Buspirone Hcl 5 Mg Tablet PO 15 mg DAILY NICOLE Administration Calcium Carbonate 500 mg 08/07/24 09:00 08/10/24 08:39 Calcium/Vitamin D 500 Mg/5 Mcg (200 I.U.) Tablet PO 500 mg QAM NICOLE Administration Carvedilol 6.25 mg 08/06/24 21:45 08/09/24 08:41 Carvedilol 6.25 Mg Tablet PO 6.25 mg Q12HR NICOLE Administration Dextrose 12.5 gm 08/06/24 22:10 Dextrose 50% 25 Gm/50 Ml Syringe IV PUSH PRN PRN Hypoglycemia Protocol Divalproex Sodium 500 mg 08/06/24 21:50 08/09/24 22:20 Divalproex Sodium Er 500 Mg Tab.24h PO 500 mg HS NICOLE Administration Famotidine 20 mg 08/06/24 21:20 08/09/24 22:20 Famotidine 20 Mg Tablet PO 20 mg HS NICOLE Administration Ferrous Sulfate 142 mg 08/08/24 08:00 08/10/24 08:40 Ferrous Sulfate Dried 142 Mg Tabcr PO 142 mg DAILY@0800 NICOLE Administration Gabapentin 100 mg 08/07/24 09:00 08/10/24 16:31 Gabapentin 100 Mg Capsule PO 100 mg TID NICOLE Administration Glucagon 1 mg 08/06/24 22:10 Glucagon For Inj 1 Mg Vial IM PRN PRN Hypoglycemia Protocol Glucose 15 gm 08/06/24 22:10 Glucose Oral Gel 15 Gm Of Glucse In 37.5 Gm Tube PO PRN PRN Hypoglycemia Protocol Dextrose 1,000 mls @ 100 mls/hr 08/06/24 22:10 Dextrose 5% 1,000 Ml IVPB PRN PRN Hypoglycemia Protocol Insulin Aspart 3 - 6 units 08/07/24 08:00 08/10/24 17:14 Insulin Aspart (*Bkc) 100 Units/Ml SUB-Q 3 units TIDWM NICOLE Administration Protocol Insulin Aspart 1 - 3 units 08/07/24 21:00 08/09/24 22:27 Insulin Aspart (*Bkc) 100 Units/Ml SUB-Q 2 units HS NICOLE Administration Protocol Insulin Glargine 40 units 08/07/24 09:00 08/10/24 08:47 Insulin Glargine (*Bkc) 100 Units/Ml SUB-Q 40 units DAILY NICOLE Administration Isosorbide Dinitrate 5 mg 08/09/24 21:00 08/10/24 08:39 Isosorbide Dinitrate 5 Mg Tablet PO 5 mg Q12HR NICOLE Administration Levothyroxine Sodium 100 mcg 08/08/24 06:30 08/10/24 05:30 Levothyroxine Sodium 100 Mcg Tablet PO 100 mcg DAILY@0630 NICOLE Administration Memantine 10 mg 08/06/24 21:15 08/10/24 08:39 Memantine 10 Mg Tablet PO 10 mg Q12HR NICOLE Administration Miscellaneous Information 1 each 08/06/24 00:01 08/10/24 02:27 Evolocumab [Repatha Sureclick] 140 Mg/Ml Pen Injector) Is Nonformulary, Can Patient Bring XX 09/05/24 00:00 Not Given [facility]IFY [facility] Miscellaneous Information 1 each 08/06/24 00:01 08/10/24 02:26 (Trospium 20 Mg Tablet) Is Nonformulary, Can Patient Bring From Home? XX 09/05/24 00:00 Not Given [facility] Multivitamins/Minerals 1 tablet 08/07/24 09:00 08/10/24 08:40 Opti-Gen Tab PO 1 tablet Q12HR NICOLE Administration Mupirocin 1 applic 08/07/24 09:00 08/10/24 16:31 Mupirocin 2% Oint 22 Gm Tube TOPICAL 1 applic BID NICOLE Administration Non-Formulary Medication 140 mg 08/06/24 21:15 Evolocumab [Repatha Sureclick] SUB-Q 09/05/24 21:14 Q14D [facility] Non-Formulary Medication 14 unit 08/06/24 21:15 Insulin Lispro [Humalog Kwikpen Insulin] SUB-Q 09/05/24 21:14 .tidac [facility] Non-Formulary Medication 20 mg 08/06/24 21:15 Trospium PO 09/05/24 21:14 Q12H [facility] Nystatin 1 applic 08/06/24 21:12 Nystatin Ointment 15 Gm Tube TOPICAL BID PRN Rash Pantoprazole Sodium 40 mg 08/07/24 09:00 08/10/24 08:39 Pantoprazole 40 Mg Tablet PO 40 mg Q12HR NICOLE Administration Pramipexole Dihydrochloride 0.25 mg 08/06/24 21:30 08/10/24 08:40 Pramipexole 0.25 Mg Tablet PO 0.25 mg Q12HR NICOLE Administration Venlafaxine HCl 75 mg 08/07/24 09:00 08/10/24 08:40 Venlafaxine Hcl 75 Mg Tablet BY MOUTH 75 mg Q12HR NICOLE Administration Venlafaxine HCl 50 mg 08/07/24 09:00 08/10/24 08:39 Venlafaxine Hcl 25 Mg Tablet BY MOUTH 50 mg Q12HR NICOLE Administration Vitamin B Complex 1 cap 08/07/24 09:00 08/10/24 08:40 Vitamin B Complex Capsule PO 1 cap DAILY NICOLE Administration Radiology Results: ITS Impressions Chest X-Ray 08/06/24 13:45 IMPRESSION: Interstitial prominence suggesting pneumonitis or pulmonary interstitial edema. Possible minimal pleural effusions Normal heart size Coronary stent Chest CT 08/06/24 15:17 IMPRESSION: Moderate interstitial pulmonary edema. Trace bilateral pleural effusions. Renal Ultrasound 08/09/24 13:35 IMPRESSION: 1. Normal kidneys. No hydronephrosis. Labs Labs: Laboratory Tests 08/10/24 06:47 08/10/24 06:47 Calcium 8.9 Total Bilirubin 0.4 AST 28 ALT 23 Alkaline Phosphatase 176 H Total Creatine Kinase 140 H Total Protein 7.0 Albumin 3.4 L Microbiology 08/08/24 06:44 Clean Catch Midstream Urine Culture - Final
[2024-08-10 17:05] LABS: Glucose Point of Care 234 mg/dl (65-105)
[2024-08-10 21:09] LABS: Glucose Point of Care 143 mg/dl (65-105)
[2024-08-10] MEDS: FAMOTIDINE 20 MG TABLET PO (21:09)
[2024-08-10] MEDS: DIVALPROEX SODIUM ER 500 MG TAB.24H PO (21:09)
[2024-08-11] VITALS (13 sets, daily range): BP systolic 102–146; BP diastolic 44–57; PULSE 48–68; RESP 13–20; TEMP 36.1–36.7; O2SAT 83–100
[2024-08-11] MEDS: LEVOTHYROXINE SODIUM 100 MCG TABLET PO (06:13)
[2024-08-11 07:37] LABS: Glucose Point of Care 70 mg/dl (65-105)
[2024-08-11 07:37] LABS: Basophils Absolute Auto 0.1 K/mm3 (0.0-0.1); Basophils Percent Auto 0.7 % (0.2-1.2); Eosinophils Absolute Auto 0.3 K/mm3 (0-0.3); Eosinophils Percent Auto 4.9 % (0-4.4); Hematocrit 25.7 % (37.0-47.0); Hemoglobin 7.6 g/dL (12.0-15.0); Immature Granulocyte Absolute 0.03 K/mm3 (0.00-0.031); Immature Granulocyte Percent A 0.4 % (0-0.5); Lymphocytes Absolute Auto 1.44 K/mm3 (0.9-3.2); Lymphocytes Percent Auto 21.4 % (18.3-44.2); Mean Corpuscular HGB Conc 29.6 g/dl (32-36); Mean Corpuscular Hemoglobin 27.1 pg (26-34); Mean Corpuscular Volume 91.8 fl (80-100); Mean Platelet Volume 9.7 fl (7.4-10.4); Monocytes Absolute Auto 0.5 K/mm3 (0.1-0.6); Monocytes Percent Auto 6.8 % (2.6-8.5); Neutrophils Absolute Auto 4.4 K/mm3 (1.3-6.7); Neutrophils Percent Auto 65.8 % (45.5-73.1); Platelet Count Result 268 k/mm3 (150-375); Red Cell Distribution Width 16.9 % (11.5-14.5); White Blood Count 6.7 K/mm3 (4.5-10.0)
[2024-08-11 08:08] LABS: Glucose Point of Care 92 mg/dl (65-105)
[2024-08-11] MEDS: APIXABAN 5 MG TABLET PO ×2 (08:08→20:36)
[2024-08-11] MEDS: GABAPENTIN 100 MG CAPSULE PO ×3 (08:08→16:42)
[2024-08-11] MEDS: ISOSORBIDE DINITRATE 5 MG TABLET PO ×2 (08:08→20:36)
[2024-08-11] MEDS: CALCIUM/VITAMIN D 500 MG/5 MCG (200 I.U.) TABLET PO (08:08)
[2024-08-11] MEDS: FERROUS SULFATE DRIED 142 MG TABCR PO (08:08)
[2024-08-11] MEDS: VITAMIN B COMPLEX CAPSULE 1 CAP PO (08:08)
[2024-08-11] MEDS: VENLAFAXINE HCL 25 MG TABLET 50 MG BY MOUTH ×2 (08:08→20:35)
[2024-08-11] MEDS: buPROPion HCL XL (24 HR) 150 MG TABCR PO (08:08)
[2024-08-11] MEDS: allopurinoL 100 MG TABLET PO (08:08)
[2024-08-11] MEDS: PRAMIPEXOLE 0.25 MG TABLET PO ×2 (08:08→20:37)
[2024-08-11] MEDS: MEMANTINE 10 MG TABLET PO ×2 (08:09→20:36)
[2024-08-11] MEDS: BUMETANIDE INJ 1 MG/4 ML VIAL IV PUSH (08:09)
[2024-08-11] MEDS: busPIRone HCL 5 MG TABLET 15 MG PO (08:09)
[2024-08-11] MEDS: OPTI-GEN TAB 1 TABLET PO ×2 (08:09→20:37)
[2024-08-11] MEDS: PANTOPRAZOLE 40 MG TABLET PO ×2 (08:09→20:35)
[2024-08-11] MEDS: VENLAFAXINE HCL 75 MG TABLET BY MOUTH ×2 (08:09→20:37)
[2024-08-11] MEDS: EPOETIN ALFA-EPBX 20,000 UNITS/ML VIAL 20000 UNITS SUB-Q (08:12)
[2024-08-11] MEDS: MUPIROCIN 2% OINT 22 GM TUBE 1 APPLIC TOPICAL ×2 (08:13→16:42)
[2024-08-11 08:23] LABS: Alanine Aminotransferase 22 U/L (6-35); Albumin Level 3.2 g/dL (3.5-5.1); Alkaline Phosphatase 170 U/L (38-126); Anion Gap 8 mmol/L (4-12); Aspartate Amino Transferase 25 U/L (14-36); Bilirubin,Total 0.3 mg/dL (0.2-1.3); Blood Urea Nitrogen 61 mg/dL (7-17); Calcium 8.9 mg/dL (8.4-10.2); Carbon Dioxide 27 mmol/L (22-30); Chloride 104 mmol/L (98-107); Estimated CRCL calculation 16 ml/min; Estimated Glomerular Filt Rate 12; Glucose 74 mg/dL (65-110); Sodium 139 mmol/L (137-145)
--- NOTE | 2024-08-11 09:07 | PCPTNOTE ---
The patient treatment was not able to be completed at this time due to patient attempting to eat breakfast. Patient continues to be lethargic and falls asleep while eating. RT present to check SPO2 and RT placed patient on 3L O2. Patient's HR 34bpm-54bpm. RN aware of patient's lethargy, O2 needs and low heart rate. Will plan to continue treatment per plan of care.
[2024-08-11 09:33] LABS: Hypochromasia 2+; Platelet Estimate Adequate (Adequate); Schistocytes None Seen
[2024-08-11 09:34] LABS: Microcytosis 1+ (NORMAL)
[2024-08-11 11:34] LABS: Glucose Point of Care > 500 mg/dl (65-105)
[2024-08-11] MEDS: INSULIN ASPART (*BKC) 100 UNITS/ML SUB-Q ×2 (11:46→11:48)
--- NOTE | 2024-08-11 12:19 | PM.IMPN ---
Progress Note: A&P Assessment and Plan (1) Acute respiratory failure with hypoxia: Code(s): J96.01 - Acute respiratory failure with hypoxia Status: Acute Assessment and Plan: Per chart review, according to EMS her SpO2 was 84% on room air and she was placed on a non-rebreather at 15 L with some improvement. Baseline RA. Likely secondary to CHF exacerbation. - Back to baseline RA - Wean as tolerated for SpO2 > 90 08/11- will order chest xray since oxygen requirements increased (2) CHF exacerbation: Code(s): I50.9 - Heart failure, unspecified Status: Acute Assessment and Plan: - Symptoms: shortness of breath with BLE edema and orthopnea She was having some chest discomfort with increased work of breathing earlier -but it is all resolved Pulmonary embolism seems less likely as she is on chronic anticoagulation. - Current medications: Bumex 1 mg IV daily - BNP: 1560 - EKG: without ST segment changes and troponin has been negative x2. - Chest XR: Interstitial prominence suggesting pneumonitis or pulmonary interstitial edema. Possible minimal pleural effusions. Normal heart size. Coronary stent - Chest CT: Moderate interstitial pulmonary edema. Trace bilateral pleural effusions. - Echo 04/08/2024: LVEF 65-70% with grade I diastolic dysfunction - Monitor vital signs, I&Os, BUN/creatinine, daily weights, neuro status and patient is a fall risk - Monitor serum electrolytes, Keep serum Potassium>4 and serum Magnesium>2 and CBC 08/11- will consult cardiology for help with chf/afib mngmnt (3) Acute kidney injury superimposed on chronic kidney disease: Code(s): N17.9 - Acute kidney failure, unspecified; N18.9 - Chronic kidney disease, unspecified Status: Acute Assessment and Plan: Per nephrology note on 07/29, baseline creatinine fluctuates to extremes -- anywhere from 1.6 - 2.4mg/dl (in the last year) - BUN/Cr 53/3.7 on am labs - Worsening Cr likely related to patients ongoing diuresis for CHF exacerbation (Bumex made daily instead of BID) vs overcontrol of her BP per nephrology note consider having BP range closer to 150s systolic - Monitor renal function and I/O - Avoid nephrotoxic medications - Renally dose medications - Nephrology consulted, appreciate recommendations if stable -anticipate discharge in the next few days (4) Anemia: Qualifiers: Anemia type: unspecified type Qualified Code(s): D64.9 - Anemia, unspecified Code(s): D64.9 - Anemia, unspecified Status: Acute Assessment and Plan: Iron low -started on iron supplementation - f/u with pcp in 2-3 month for recheck (5) Coronary artery disease: Code(s): I25.10 - Atherosclerotic heart disease of [place] coronary artery without angina pectoris Status: Acute Assessment and Plan: Chronic, continue home medications. 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 Initiate sliding scale insulin, Accu-Cheks, and hypoglycemic protocol. (7) Obstructive sleep apnea on CPAP: Code(s): G47.33 - Obstructive sleep apnea (adult) (pediatric); Z99.89 - Dependence on other enabling machines and devices Status: Chronic Assessment and Plan: Does not use CPAP at home. ABG ordered. (8) Hypothyroidism (acquired): Code(s): E03.9 - Hypothyroidism, unspecified Status: Acute Assessment [place]: [place] [id number] currently on 75 mcg levothyroxine Will increase to 100 mcg on 08/07 and will need TSH recheck in 6-8 weeks as an outtpt- mid to end of October Time Spent With Patient Time with patient: Greater than 35 minutes Subjective Date/time seen: 08/11/24 0900 Interval history: seen and examined. she is still sob, gets sleepy and confused. until today was determined to be discharged home but after discussion, agreeable to go to rehab. sob and renal function worse despite interventions. few bradycardic episodes. Will consult cardiology to assist with further management. Review of Systems Review of Systems: 12 systems were reviewed and are negative except for as per HPI. Exam Narrative: AF HR 65 RR 20 SPO2 99 BP 110/50 General: female in no acute respiratory distress who is nontoxic appearing, lying semi recumbent in bed. HEENT: Normocephalic. Atraumatic. Extraocular movement intact. Sclera clear and anicteric. No facial asymmetry. Chest: Lungs are diminished to auscultation bilaterally with lower base crackles. No wheezes. CV: Heart was regular rate and rhythm. S1-S2. No murmurs, gallops, or rubs. Abd: Abdomen was soft. Nontender. Nondistended. Positive bowel sounds. No organomegaly or masses. Ext: No clubbing, cyanosis, or edema. 2+ DP pulses bilaterally. Neuro: Patient is alert and oriented x3 (person, place, year). Cranial nerves 2-12 are intact. Speech is clear. Objective Data Vital Signs Vital Signs: Vital Signs - 24 hr 08/10/24 14:00 08/10/24 16:00 08/10/24 21:10 Temperature 96.8 F L Pulse Rate 54 L 53 L 55 L Respiratory Rate 18 Blood Pressure 131/55 L Pulse Oximetry 99 Oxygen Delivery Oxygen Flow Rate 08/10/24 21:31 08/10/24 22:30 08/10/24 22:55 Temperature 97.5 F L Pulse Rate 106 H 56 L Respiratory Rate 16 17 Blood Pressure 118/98 H Pulse Oximetry 96 98 98 Oxygen Delivery Autopap Room Air Oxygen Flow Rate 08/10/24 20:00 08/11/24 02:45 08/10/24 20:00 Temperature Pulse Rate 53 L Respiratory Rate 13 Blood Pressure Pulse Oximetry 99 Oxygen Delivery Room Air Autopap Oxygen Flow Rate 08/11/24 00:00 08/11/24 05:35 08/11/24 04:00 Temperature 97.1 F L Pulse Rate 50 L 55 L 48 L Respiratory Rate 16 Blood Pressure 111/53 L Pulse Oximetry 100 Oxygen Delivery Oxygen Flow Rate 08/11/24 08:56 08/11/24 09:01 08/11/24 08:00 Temperature Pulse Rate Respiratory Rate Blood Pressure Pulse Oximetry 83 L 92 92 Oxygen Delivery Room Air Nasal Cannula Nasal Cannula Oxygen Flow Rate 3 3 Intake/Output Intake/Output: Intake & Output 08/08/24 08/09/24 08/10/24 08/11/24 23:59 23:59 23:59 23:59 Intake Total 720 1340 1476 318 Output Total 750 400 151 750 Balance -30 940 1325 -432 Meds/Results Medications: Active Medications Generic Name Dose Route Start Last Admin Trade Name Freq PRN Reason Stop Dose Admin Acetaminophen 650 mg 08/06/24 22:10 08/09/24 08:40 Acetaminophen 325 Mg Tablet PO 650 mg Q6H PRN Administration Mild Pain (1-3) or Fever Allopurinol 100 mg 08/07/24 09:00 08/11/24 08:08 Allopurinol 100 Mg Tablet PO 100 mg DAILY NICOLE Administration Amiodarone HCl 200 mg 08/06/24 21:15 08/10/24 21:10 Amiodarone Hcl 200 Mg Tablet PO Not Given HS NICOLE Apixaban 5 mg 08/06/24 21:20 08/11/24 08:08 Apixaban 5 Mg Tablet PO 5 mg Q12HR NICOLE Administration Bumetanide 1 mg 08/10/24 09:00 08/11/24 08:09 Bumetanide Inj 1 Mg/4 Ml Vial IV PUSH 1 mg DAILY NICOLE Administration Bupropion HCl 150 mg 08/07/24 09:00 08/11/24 08:08 Bupropion Hcl Xl (24 Hr) 150 Mg Tabcr PO 150 mg DAILY NICOLE Administration Buspirone HCl 15 mg 08/07/24 09:00 08/11/24 08:09 Buspirone Hcl 5 Mg Tablet PO 15 mg DAILY NICOLE Administration Calcium Carbonate 500 mg 08/07/24 09:00 08/11/24 08:08 Calcium/Vitamin D 500 Mg/5 Mcg (200 I.U.) Tablet PO 500 mg QAM NICOLE Administration Carvedilol 6.25 mg 08/06/24 21:45 08/09/24 08:41 Carvedilol 6.25 Mg Tablet PO 6.25 mg Q12HR NICOLE Administration Dextrose 12.5 gm 08/06/24 22:10 Dextrose 50% 25 Gm/50 Ml Syringe IV PUSH PRN PRN Hypoglycemia Protocol Divalproex Sodium 500 mg 08/06/24 21:50 08/10/24 21:09 Divalproex Sodium Er 500 Mg Tab.24h PO 500 mg HS NICOLE Administration Famotidine 20 mg 08/06/24 21:20 08/10/24 21:09 Famotidine 20 Mg Tablet PO 20 mg HS NICOLE Administration Ferrous Sulfate 142 mg 08/08/24 08:00 08/11/24 08:08 Ferrous Sulfate Dried 142 Mg Tabcr PO 142 mg DAILY@0800 NICOLE Administration Gabapentin 100 mg 08/07/24 09:00 08/11/24 08:08 Gabapentin 100 Mg Capsule PO 100 mg TID NICOLE Administration Glucagon 1 mg 08/06/24 22:10 Glucagon For Inj 1 Mg Vial IM PRN PRN Hypoglycemia Protocol Glucose 15 gm 08/06/24 22:10 Glucose Oral Gel 15 Gm Of Glucse In 37.5 Gm Tube PO PRN PRN Hypoglycemia Protocol Dextrose 1,000 mls @ 100 mls/hr 08/06/24 22:10 Dextrose 5% 1,000 Ml IVPB PRN PRN Hypoglycemia Protocol Insulin Aspart 3 - 6 units 08/07/24 08:00 08/11/24 11:48 Insulin Aspart (*Bkc) 100 Units/Ml SUB-Q 6 units TIDWM NICOLE Administration Protocol Insulin Aspart 1 - 3 units 08/07/24 21:00 08/10/24 21:08 Insulin Aspart (*Bkc) 100 Units/Ml SUB-Q Not Given HS NICOLE Protocol Insulin Glargine 40 units 08/07/24 09:00 08/11/24 08:07 Insulin Glargine (*Bkc) 100 Units/Ml SUB-Q Not Given DAILY NICOLE Isosorbide Dinitrate 5 mg 08/09/24 21:00 08/11/24 08:08 Isosorbide Dinitrate 5 Mg Tablet PO 5 mg Q12HR NICOLE Administration Levothyroxine Sodium 100 mcg 08/08/24 06:30 08/11/24 06:13 Levothyroxine Sodium 100 Mcg Tablet PO 100 mcg DAILY@0630 NICOLE Administration Memantine 10 mg 08/06/24 21:15 08/11/24 08:09 Memantine 10 Mg Tablet PO 10 mg Q12HR NICOLE Administration Miscellaneous Information 1 each 08/06/24 00:01 08/11/24 03:17 Evolocumab [Repatha Sureclick] 140 Mg/Ml Pen Injector) Is Nonformulary, Can Patient Bring XX 09/05/24 00:00 Not Given CL[facility]IFY [facility] Miscellaneous Information 1 each 08/06/24 00:01 08/11/24 03:17 (Trospium 20 Mg Tablet) Is Nonformulary, Can Patient Bring From Home? XX 09/05/24 00:00 Not Given [facility] Multivitamins/Minerals 1 tablet 08/07/24 09:00 08/11/24 08:09 Opti-Gen Tab PO 1 tablet Q12HR NICOLE Administration Mupirocin 1 applic 08/07/24 09:00 08/11/24 08:13 Mupirocin 2% Oint 22 Gm Tube TOPICAL 1 applic BID NICOLE Administration Non-Formulary Medication 140 mg 08/06/24 21:15 Evolocumab [Repatha Sureclick] SUB-Q 09/05/24 21:14 Q14D NICOLE Non-Formulary Medication 14 unit 08/06/24 21:15 Insulin Lispro [Humalog Kwikpen Insulin] SUB-Q 09/05/24 21:14 .tidac NICOLE Non-Formulary Medication 20 mg 08/06/24 21:15 Trospium PO 09/05/24 21:14 Q12H NICOLE Nystatin 1 applic 08/06/24 21:12 Nystatin Ointment 15 Gm Tube TOPICAL BID PRN Rash Pantoprazole Sodium 40 mg 08/07/24 09:00 08/11/24 08:09 Pantoprazole 40 Mg Tablet PO 40 mg Q12HR NICOLE Administration Pramipexole Dihydrochloride 0.25 mg 08/06/24 21:30 08/11/24 08:08 Pramipexole 0.25 Mg Tablet PO 0.25 mg Q12HR NICOLE Administration Venlafaxine HCl 75 mg 08/07/24 09:00 08/11/24 08:09 Venlafaxine Hcl 75 Mg Tablet BY MOUTH 75 mg Q12HR NICOLE Administration Venlafaxine HCl 50 mg 08/07/24 09:00 08/11/24 08:08 Venlafaxine Hcl 25 Mg Tablet BY MOUTH 50 mg Q12HR NICOLE Administration Vitamin B Complex 1 cap 08/07/24 09:00 08/11/24 08:08 Vitamin B Complex Capsule PO 1 cap DAILY NICOLE Administration Radiology Results: ITS Impressions Chest X-Ray 08/06/24 13:45 IMPRESSION: Interstitial prominence suggesting pneumonitis or pulmonary interstitial edema. Possible minimal pleural effusions Normal heart size Coronary stent Chest CT 08/06/24 15:17 IMPRESSION: Moderate interstitial pulmonary edema. Trace bilateral pleural effusions. Renal Ultrasound 08/09/24 13:35 IMPRESSION: 1. Normal kidneys. No hydronephrosis. Labs Labs: Laboratory Results - last 24 hr 08/10/24 08/10/24 08/11/24 17:03 21:05 07:02 WBC 6.7 RBC 2.80 L Hgb 7.6 L Hct 25.7 L MCV 91.8 MCH 27.1 MCHC 29.6 L RDW 16.9 H Plt Count 268 MPV 9.7 Immature Gran % (Auto) 0.4 Neut % (Auto) 65.8 Lymph % (Auto) 21.4 Hooker % (Auto) 6.8 Eos % (Auto) 4.9 H Baso % (Auto) 0.7 Lymph # (Auto) 1.44 [place]er # (Auto) 0.5 Eos # (Auto) 0.3 Baso # (Auto) 0.1 Abs Immat Gran (auto) 0.03 Absolute Neuts (auto) 4.4 Absolute Nucleated RBC 0.000 Nucleated RBC % 0.0 Platelet Estimate Adequate Hypochromasia 2+ Microcytosis 1+ Schistocytes None seen Sodium 139 Potassium 4.0 Chloride 104 Carbon Dioxide 27 Anion Gap 8 BUN 61 H Creatinine 3.60 H Estim Creat Clear Calc 16 Estimated GFR 12 L Glucose 74 POC Capillary Glucose 234 H 143 H Calcium 8.9 Total Bilirubin 0.3 AST 25 ALT 22 Alkaline Phosphatase 170 H Total Protein 7.0 Albumin 3.2 L 08/11/24 08/11/24 08/11/24 07:33 08:05 11:29 WBC RBC Hgb Hct MCV MCH MCHC RDW Plt Count MPV Immature Gran % (Auto) Neut % (Auto) Lymph % (Auto) Hooker % (Auto) Eos % (Auto) Baso % (Auto) Lymph # (Auto) [place]er # (Auto) Eos # (Auto) Baso # (Auto) Abs Immat Gran (auto) Absolute Neuts (auto) Absolute Nucleated RBC Nucleated RBC % Platelet Estimate Hypochromasia Microcytosis Schistocytes Sodium Potassium Chloride Carbon Dioxide Anion Gap BUN Creatinine Estim Creat Clear Calc Estimated GFR Glucose POC Capillary Glucose 70 92 > 500 H* Calcium Total Bilirubin AST ALT Alkaline Phosphatase Total Protein Albumin Quality VTE Prophylaxis VTE prophylaxis: pharmacologic ordered (on apixaban)
--- NOTE | 2024-08-11 12:35 | PM.PNNEP ---
Progress Note: A&P Assessment and Plan (1) ALBERTINA (acute kidney injury): Code(s): N17.9 - Acute kidney failure, unspecified Status: Acute Assessment and Plan: elevated on admission (but close to what it was on last hospital discharge) worsening noted during this hospitalization presumably due to need for diuresis holding diuretics on last hospitalization resulted in only mild improvement in renal function (and may have precipitated re-admission) evaluation noted: renal u/s normal CPK slightly elevated (but not likely to affect kidney function) urine electrolytes prerenal UA negative for infection by culture moderate proteinuria follow trend of repeat labs and UOP (2) Chronic kidney disease, stage IV (severe): Code(s): N18.4 - Chronic kidney disease, stage 4 (severe) Status: Chronic Assessment and Plan: baseline creatinine fluctuates to extremes -- anywhere from 1.6 - 2.4mg/dl (in the last year) this causes her to fluctuate between CKD stage 3b and stage 4 due to her hypertension, diabetes, obstructive sleep apnea, gout, diastolic heart failure + diuretics, and age-related change this may be a situation where we have to accept a higher creatinine to maintain her volume status... (3) Acute on chronic diastolic heart failure: Code(s): I50.33 - Acute on chronic diastolic (congestive) heart failure Status: Deleted Assessment and Plan: clinical improvement noted as noted by presentation to the ER: bilateral LE edema + SOB + orthopnea BNP: 1560 admission CXR with nterstitial prominence suggesting pneumonitis or pulmonary interstitial edema. Possible minimal pleural effusions chest CT with moderate interstitial pulmonary edema. Trace bilateral pleural effusions on IV diuretics (but frequency reduced to once a day) follow respiratory status (4) Hypertension: Qualifiers: Hypertension type: unspecified Qualified Code(s): I10 - Essential (primary) hypertension Code(s): I10 - Essential (primary) hypertension Status: Chronic Assessment and Plan: reasonable control at this time follow trend of hemodynamics (5) Paroxysmal atrial fibrillation: Code(s): I48.0 - Paroxysmal atrial fibrillation Status: Chronic Assessment and Plan: rate control strategy on anticoagulation (6) Anemia: Qualifiers: Anemia type: unspecified type Qualified Code(s): D64.9 - Anemia, unspecified Code(s): D64.9 - Anemia, unspecified Status: Acute Assessment and Plan: partly related to CKD along with ALBERTINA and acute illness will dose with Retacrit while hospitalized PRBC transfusion per protocol follow trend of H/H (7) Type 2 diabetes mellitus: Code(s): E11.9 - Type 2 diabetes mellitus without complications Status: Acute Assessment and Plan: follow accu-cheks glycemic control per hospitalists Will continue to follow. Subjective Date/time seen: 08/11/24 12:35 Interval history: Follow-up for acute kidney injury/acute renal failure on chronic kidney disease. Mild improvement noted in renal function/creatinine by trend of labs; breathing/respiratory status seems the same per patient -- no worse but not really much better; no other acute issues/complaints voiced at the time of my visit. Exam Narrative: General: elderly but WD/WN female in NAD Heart: normal S1 and S2; no rub Lungs: clear anteriorly; decreased at bases with a few crackles Abdomen: soft, nontender, nondistended, positive bowel sounds Extremities: no cyanosis or clubbing; trace edema Skin: warm and intact Objective Data Vital Signs Vital Signs: Vital Signs Temp Pulse Resp BP Pulse Ox O2 Del Method O2 Flow Rate 08/11/24 09:01 92 Nasal Cannula 3 08/11/24 08:56 83 L Room Air 08/11/24 04:00 48 L 08/11/24 05:35 97.1 F L 55 L 16 111/53 L 100 08/11/24 00:00 50 L 08/10/24 20:00 53 L 08/11/24 02:45 13 99 Autopap 08/10/24 20:00 Room Air 08/10/24 22:55 98 Room Air 08/10/24 22:30 56 L 17 98 Autopap 08/10/24 21:31 97.5 F L 106 H 16 118/98 H 96 08/10/24 21:10 55 L 08/10/24 16:00 53 L 08/10/24 14:00 96.8 F L 54 L 18 131/55 L 99 Intake/Output Intake/Output: Intake & Output 08/08/24 08/09/24 08/10/24 08/11/24 23:59 23:59 23:59 23:59 Intake Total 720 1340 1476 318 Output Total 750 400 151 750 Balance -30 940 1325 -432 Meds/Results Medications: Active Medications Generic Name Dose Route Start Last Admin Trade Name Freq PRN Reason Stop Dose Admin Acetaminophen 650 mg 08/06/24 22:10 08/09/24 08:40 Acetaminophen 325 Mg Tablet PO 650 mg Q6H PRN Administration Mild Pain (1-3) or Fever Allopurinol 100 mg 08/07/24 09:00 08/11/24 08:08 Allopurinol 100 Mg Tablet PO 100 mg DAILY NICOLE Administration Amiodarone HCl 200 mg 08/06/24 21:15 08/10/24 21:10 Amiodarone Hcl 200 Mg Tablet PO Not Given HS NICOLE Apixaban 5 mg 08/06/24 21:20 08/11/24 08:08 Apixaban 5 Mg Tablet PO 5 mg Q12HR NICOLE Administration Bumetanide 1 mg 08/10/24 09:00 08/11/24 08:09 Bumetanide Inj 1 Mg/4 Ml Vial IV PUSH 1 mg DAILY NICOLE Administration Bupropion HCl 150 mg 08/07/24 09:00 08/11/24 08:08 Bupropion Hcl Xl (24 Hr) 150 Mg Tabcr PO 150 mg DAILY NICOLE Administration Buspirone HCl 15 mg 08/07/24 09:00 08/11/24 08:09 Buspirone Hcl 5 Mg Tablet PO 15 mg DAILY NICOLE Administration Calcium Carbonate 500 mg 08/07/24 09:00 08/11/24 08:08 Calcium/Vitamin D 500 Mg/5 Mcg (200 I.U.) Tablet PO 500 mg QAM NICOLE Administration Carvedilol 6.25 mg 08/06/24 21:45 08/09/24 08:41 Carvedilol 6.25 Mg Tablet PO 6.25 mg Q12HR NICOLE Administration Dextrose 12.5 gm 08/06/24 22:10 Dextrose 50% 25 Gm/50 Ml Syringe IV PUSH PRN PRN Hypoglycemia Protocol Divalproex Sodium 500 mg 08/06/24 21:50 08/10/24 21:09 Divalproex Sodium Er 500 Mg Tab.24h PO 500 mg HS NICOLE Administration Famotidine 20 mg 08/06/24 21:20 08/10/24 21:09 Famotidine 20 Mg Tablet PO 20 mg HS NICOLE Administration Ferrous Sulfate 142 mg 08/08/24 08:00 08/11/24 08:08 Ferrous Sulfate Dried 142 Mg Tabcr PO 142 mg DAILY@0800 NICOLE Administration Gabapentin 100 mg 08/07/24 09:00 08/11/24 12:20 Gabapentin 100 Mg Capsule PO 100 mg TID NICOLE Administration Glucagon 1 mg 08/06/24 22:10 Glucagon For Inj 1 Mg Vial IM PRN PRN Hypoglycemia Protocol Glucose 15 gm 08/06/24 22:10 Glucose Oral Gel 15 Gm Of Glucse In 37.5 Gm Tube PO PRN PRN Hypoglycemia Protocol Dextrose 1,000 mls @ 100 mls/hr 08/06/24 22:10 Dextrose 5% 1,000 Ml IVPB PRN PRN Hypoglycemia Protocol Insulin Aspart 3 - 6 units 08/07/24 08:00 08/11/24 11:48 Insulin Aspart (*Bkc) 100 Units/Ml SUB-Q 6 units TIDWM NICOLE Administration Protocol Insulin Aspart 1 - 3 units 08/07/24 21:00 08/10/24 21:08 Insulin Aspart (*Bkc) 100 Units/Ml SUB-Q Not Given HS [facility] Protocol Insulin Glargine 40 units 08/07/24 09:00 08/11/24 08:07 Insulin Glargine (*Bkc) 100 Units/Ml SUB-Q Not Given DAILY [facility] Isosorbide Dinitrate 5 mg 08/09/24 21:00 08/11/24 08:08 Isosorbide Dinitrate 5 Mg Tablet PO 5 mg Q12HR NICOLE Administration Levothyroxine Sodium 100 mcg 08/08/24 06:30 08/11/24 06:13 Levothyroxine Sodium 100 Mcg Tablet PO 100 mcg DAILY@0630 [facility] Administration Memantine 10 mg 08/06/24 21:15 08/11/24 08:09 Memantine 10 Mg Tablet PO 10 mg Q12HR [facility] Administration Miscellaneous Information 1 each 08/06/24 00:01 08/11/24 03:17 Evolocumab [Repatha Sureclick] 140 Mg/Ml Pen Injector) Is Nonformulary, Can Patient Bring XX 09/05/24 00:00 Not Given [facility] Miscellaneous Information 1 each 08/06/24 00:01 08/11/24 03:17 (Trospium 20 Mg Tablet) Is Nonformulary, Can Patient Bring From Home? XX 09/05/24 00:00 Not Given [facility] Multivitamins/Minerals 1 tablet 08/07/24 09:00 08/11/24 08:09 Opti-Gen Tab PO 1 tablet Q12HR NICOLE Administration Mupirocin 1 applic 08/07/24 09:00 08/11/24 08:13 Mupirocin 2% Oint 22 Gm Tube TOPICAL 1 applic BID NICOLE Administration Non-Formulary Medication 140 mg 08/06/24 21:15 Evolocumab [Repatha Sureclick] SUB-Q 09/05/24 21:14 Q14D NICOLE Non-Formulary Medication 14 unit 08/06/24 21:15 Insulin Lispro [Humalog Kwikpen Insulin] SUB-Q 09/05/24 21:14 .tidac NICOLE Non-Formulary Medication 20 mg 08/06/24 21:15 Trospium PO 09/05/24 21:14 Q12H NICOLE Nystatin 1 applic 08/06/24 21:12 Nystatin Ointment 15 Gm Tube TOPICAL BID PRN Rash Pantoprazole Sodium 40 mg 08/07/24 09:00 08/11/24 08:09 Pantoprazole 40 Mg Tablet PO 40 mg Q12HR NICOLE Administration Pramipexole Dihydrochloride 0.25 mg 08/06/24 21:30 08/11/24 08:08 Pramipexole 0.25 Mg Tablet PO 0.25 mg Q12HR NICOLE Administration Venlafaxine HCl 75 mg 08/07/24 09:00 08/11/24 08:09 Venlafaxine Hcl 75 Mg Tablet BY MOUTH 75 mg Q12HR NICOLE Administration Venlafaxine HCl 50 mg 08/07/24 09:00 08/11/24 08:08 Venlafaxine Hcl 25 Mg Tablet BY MOUTH 50 mg Q12HR NICOLE Administration Vitamin B Complex 1 cap 08/07/24 09:00 08/11/24 08:08 Vitamin B Complex Capsule PO 1 cap DAILY NICOLE Administration Radiology Results: ITS Impressions Chest X-Ray 08/06/24 13:45 IMPRESSION: Interstitial prominence suggesting pneumonitis or pulmonary interstitial edema. Possible minimal pleural effusions Normal heart size Coronary stent Chest CT 08/06/24 15:17 IMPRESSION: Moderate interstitial pulmonary edema. Trace bilateral pleural effusions. Renal Ultrasound 08/09/24 13:35 IMPRESSION: 1. Normal kidneys. No hydronephrosis. Labs Labs: Laboratory Tests 08/11/24 07:02 08/11/24 07:02 Calcium 8.9 Total Bilirubin 0.3 AST 25 ALT 22 Alkaline Phosphatase 170 H Total Protein 7.0 Albumin 3.2 L
--- NOTE | 2024-08-11 13:00 | P.CONCA_ITS ---
Assessment and Plan Assessment and plan (1) CHF (congestive heart failure): Qualifiers: Heart failure type: diastolic Heart failure chronicity: acute on chronic Qualified Code(s): I50.33 - Acute on chronic diastolic (congestive) heart failure Code(s): I50.9 - Heart failure, unspecified Status: Acute (2) Atrial fibrillation: Qualifiers: Atrial fibrillation type: unspecified Qualified Code(s): I48.91 - Unspecified atrial fibrillation Code(s): I48.91 - Unspecified atrial fibrillation Status: Acute Plan 78-year-old woman with CAD status post PCI, chronic diastolic heart failure, paroxysmal atrial fibrillation, pulmonary hypertension, ANDREA on CPAP, CKD stage 4, diabetes type 2, and hypertension/hyperlipidemia presented with several days of worsening shortness of breath Acute on chronic diastolic heart failure -given multiple admissions, will be helpful to repeat transthoracic echoca rdiogram -continue Bumex 1 mg IV push daily -if no significant improvement in dyspnea, recommend right heart catheterization in light of worsening renal function Paroxysmal atrial fibrillation -continue Eliquis 5 mg p.o. q.12h -if proceeding with right heart catheterization, would hold Eliquis and place on heparin drip Hypertension -continue Isordil with liberalize goal systolic blood pressure of 140 mm Hg History of Present Illness History of Present Illness Consult date/time: 08/11/24 13:00 Requesting physician: Melissa Bustos APRN Reason For Visit: CHF Narrative: 78-year-old woman with CAD status post PCI, chronic diastolic heart failure, paroxysmal atrial fibrillation, pulmonary hypertension, ANDREA on CPAP, CKD stage 4, diabetes type 2, and hypertension/hyperlipidemia presented with several days of worsening shortness of breath. The shortness of breath would be associated with chest tightness. Most of the history was gathered through chart review as patient appears mildly confused. Review of Systems Cardiovascular: Cardiovascular: Reports as per HPI Respiratory: Respiratory: Reports as per HPI [facility] Past Medical History Medical History (Updated 08/08/24 @ 09:20 by Nisa Sheldon PA-C) Anemia Anxiety Ataxia Breast cancer Chronic anticoagulation Degeneration of lumbar or lumbosacral intervertebral disc Depression Diabetic peripheral neuropathy Diastolic heart failure Echocardiogram 05/2022: Normal left ventricular systolic function EF 65-70%, mildly increased left ventricular wall thickness, diastolic dysfunction grade 2, moderately elevated E/E 20, increased global longitudinal strain and-18%, mild mitral valve regurgitation, mild tricuspid regurgitation, moderate pulmonary hypertension with RVSP of 46. Dysphagia Hypertension Hypothyroidism Knee osteoarthritis Macular degeneration Minimal cognitive impairment Mixed hyperlipidemia Obstructive sleep apnea on CPAP Paroxysmal atrial fibrillation Restless leg syndrome Skin cancer Type 2 diabetes mellitus (1989) Venous stasis dermatitis Surgical History Surgical History History of cardiac catheterization History of cataract removal with insertion of prosthetic lens History of cholecystectomy History of coronary artery stent placement History of reconstruction of right breast History of right hip replacement (2017) History of right mastectomy Normal esophagogastroduodenoscopy (EGD) Family History Family History Father Hypertension COPD (chronic obstructive pulmonary disease) Heart disease Diabetes mellitus Mother Lung cancer Depression Sibling Acute basophilic leukemia Sepsis Diabetes mellitus Acute myocardial infarction Daughter Depression Drug overdose Sibling No problems noted. Social History Social History Social History: Surrogate medical decision maker: Luis Rome, jayne. Code status: Full code. Smoking status: Never smoker Second hand tobacco smoke exposure: Yes Alcohol intake: never Substance use: never Substance use type: does not use Do You Feel Safe in your Home?: Yes Lack of Transportation: No Lack of Food: Never True Current Housing: I Have Housing Concerned About Future Housing: No Difficulty Paying Gas/Electric Bills: No Difficulty Paying for Meds: No Currently Unemployed: No Education: High School Diploma/GED Difficulty w/ Childcare or Family Care: No Living arrangements: alone Additional living arrangements comments: . Lives alone. Has 2 children, daughter . 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 Spiritual care concerns: No Meds Home Medications and Allergies Home Medications Medication Instructions Recorded Confirmed Type divalproex 500 mg tablet,delayed 500 mg PO HS 03/06/22 08/06/24 History release (Depakote) vit C 250 mg-E 90 mg-zinc 40 1 tablet PO Q12H 03/27/23 08/06/24 History mg-copper 1 my-drrvtw-vzmxos chew tablet (PreserVision AREDS-2) evolocumab 140 mg/mL subcutaneous 140 mg subcut Q14D 07/13/23 08/06/24 History pen injector (Narda Bernard) blood-glucose meter (Blood Glucose #1 ea 02/22/24 08/06/24 Rx Monitoring kit) bumetanide 2 mg tablet 2 mg PO Q12H 04/04/24 08/06/24 History calcium 600 mg (as 1 tablet PO DAILY 04/04/24 08/06/24 History carbonate)-vitamin D3 5 mcg (200 unit) tablet famotidine 20 mg tablet 20 mg PO HS 04/04/24 08/06/24 History gabapentin 100 mg capsule 100 mg PO Q8H 04/04/24 08/06/24 History (Neurontin) levothyroxine 75 mcg tablet [place] [address]/04/24 08/06/24 History (Euthyrox) memantine 10 mg tablet 10 mg PO Q12H 04/04/24 08/06/24 History nystatin 100,000 unit/gram topical 1 applic topical BID PRN Rash 04/04/24 08/06/24 History ointment vitamin B complex 1 tablet PO DAILY 04/04/24 08/06/24 History apixaban 5 mg tablet (Eliquis) 5 mg PO Q12H #90 tabs 04/26/24 08/06/24 Rx omeprazole 40 mg capsule,delayed 40 mg PO DAILY laryngopharyngeal 05/03/24 08/06/24 Rx release reflux #30 caps insulin lispro 100 unit/mL 14 unit (0.14 mL) subcut .tidac 90 05/19/24 08/06/24 Rx subcutaneous pen (Humalog KwikPen days #54 mL (U-100) Insulin) insulin glargine U-300 conc 300 45 unit (0.15 mL) subcut DAILY 05/20/24 08/06/24 Rx unit/mL (3 mL) subcutaneous pen days #15 mL (Toujeo Max U-300 SoloStar) isosorbide dinitrate 10 mg tablet 10 mg PO Q12H #90 tabs 05/31/24 08/06/24 Rx amiodarone 200 mg tablet 200 mg PO HS #30 tabs 06/24/24 08/06/24 Rx trospium 20 mg tablet 20 mg PO Q12H #30 tabs 06/24/24 08/06/24 Rx mupirocin 2 % topical ointment 1 applic topical BID #22 grams 07/12/24 08/06/24 Rx allopurinol 100 mg tablet 100 mg PO DAILY 07/21/24 08/06/24 History bupropion HCl 150 mg 24 hr tablet, 150 mg PO DAILY 07/21/24 08/06/24 History extended release buspirone 15 mg tablet 15 mg PO DAILY 07/21/24 08/06/24 History carvedilol 6.25 mg tablet 6.25 mg PO DAILY 07/21/24 08/06/24 History pramipexole 0.25 mg tablet 0.25 mg PO BID 07/21/24 08/06/24 History venlafaxine 75 mg capsule,extended 125 mg PO DAILY 07/21/24 08/06/24 History release 24 hr (Effexor XR) Allergies Allergy/AdvReac Type Severity Reaction Status Date / Time [id number] Reductase Allergy Intermediate Other Verified 08/06/24 13:37 Inhibitor pseudoephedrine Allergy Unknown Hives Verified 08/06/24 13:37 NSAIDS (Non-Steroidal AdvReac Intermediate Other Verified 08/06/24 13:37 Anti-Inflamma oxycodone AdvReac Intermediate Itching Verified 08/06/24 13:37 atenolol AdvReac Mild Muscle Pain Verified 08/06/24 13:37 exenatide [From Bydureon] AdvReac Mild Diarrhea Verified 08/06/24 13:37 hydrocodone AdvReac Mild Itching Verified 08/06/24 13:37 [From Panlor (hydrocodone-acetamin)] prochlorperazine AdvReac Mild Itching Verified 08/06/24 13:37 [From Compazine] rice AdvReac Mild Heartburn Verified 08/06/24 13:37 Vital Signs Vital Signs - 24 hr 08/10/24 14:00 08/10/24 16:00 08/10/24 21:10 Temperature 36.0 C L Pulse Rate 54 L 53 L 55 L Respiratory Rate 18 Blood Pressure 131/55 L Pulse Oximetry 99 Oxygen Delivery Oxygen Flow Rate 08/10/24 21:31 08/10/24 22:30 08/10/24 22:55 Temperature 36.4 C L Pulse Rate 106 H 56 L Respiratory Rate 16 17 Blood Pressure 118/98 H Pulse Oximetry 96 98 98 Oxygen Delivery Autopap Room Air Oxygen Flow Rate 08/10/24 20:00 08/11/24 02:45 08/10/24 20:00 Temperature Pulse Rate 53 L Respiratory Rate 13 Blood Pressure Pulse Oximetry 99 Oxygen Delivery Room Air Autopap Oxygen Flow Rate 08/11/24 00:00 08/11/24 05:35 08/11/24 04:00 Temperature 36.2 C L Pulse Rate 50 L 55 L 48 L Respiratory Rate 16 Blood Pressure 111/53 L Pulse Oximetry 100 Oxygen Delivery Oxygen Flow Rate 08/11/24 08:56 08/11/24 09:01 08/11/24 08:00 Temperature Pulse Rate Respiratory Rate Blood Pressure Pulse Oximetry 83 L 92 92 Oxygen Delivery Room Air Nasal Cannula Nasal Cannula Oxygen Flow Rate 3 3 Exam Const: General: comfortable HENMT: Mouth: Yes moist mucous membranes Eyes: EOM: EOMs intact bilaterally Neck: Neck: no JVD Resp: Auscultation: diminished lung sounds Cardio: Rate: regular rate Rhythm: abnormal rhythm GI: GI Palp: Yes Soft to palpation Extrem: General: pedal edema Results Labs and Meds 08/11/24 07:02 08/11/24 07:02 Lab results: Cardiac Enzymes 08/11/24 Range/Units 07:02 AST 25 (14-36) U/L CBC 08/11/24 Range/Units 07:02 WBC 6.7 (4.5-10.0) K/mm3 RBC 2.80 L (4.2-5.4) M/mm3 Hgb 7.6 L (12.0-15.0) g/dL Hct 25.7 L (37.0-47.0) % Plt Count 268 (150-375) k/mm3 Lymph # (Auto) 1.44 (0.9-3.2) K/mm3 [place] # (Auto) 0.5 (0.1-0.6) K/mm3 Eos # (Auto) 0.3 (0-0.3) K/mm3 Baso # (Auto) 0.1 (0.0-0.1) K/mm3 Comprehensive Metabolic Panel 08/11/24 Range/Units 07:02 Sodium 139 (137-145) mmol/L Potassium 4.0 (3.4-5.0) mmol/L Chloride 104 (98-107) mmol/L Carbon Dioxide 27 (22-30) mmol/L BUN 61 H (7-17) mg/dL Creatinine 3.60 H (0.7-1.0) mg/dL Glucose 74 (65-110) mg/dL Calcium 8.9 (8.4-10.2) mg/dL AST 25 (14-36) U/L ALT 22 (6-35) U/L Alkaline Phosphatase 170 H (38-126) U/L Total Protein 7.0 (6.3-8.2) g/dL Albumin 3.2 L (3.5-5.1) g/dL Intake and Output 08/10/24 08/11/24 08/11/24 23:59 07:59 15:59 Intake Total 768 100 218 Output Total 1 750 Balance 767 -650 218 Intake: Oral 768 100 218 Output: Catheter Urine 750 Urethral Catheter 750 Stool 1 Other: Number of Bowel Movements Today 1 Patient Weight 08/11/24 23:59 Weight 121.9 kg
[2024-08-11 13:02] LABS: Glucose Point of Care 237 mg/dl (65-105)
[2024-08-11 17:02] LABS: Glucose Point of Care 160 mg/dl (65-105)
[2024-08-11] MEDS: DIVALPROEX SODIUM ER 500 MG TAB.24H PO (20:35)
[2024-08-11] MEDS: FAMOTIDINE 20 MG TABLET PO (20:35)
[2024-08-11 21:04] LABS: Add Urine Microscopic? YES; Appearance Urine Turbid (Clear); Bacteria Urine 4+ /hpf; Bilirubin Urine Negative (Negative); Blood Urine 2+ (Negative); Color Urine Yellow (Yellow); Glucose Urine UA Negative (Negative); Hyaline Casts Urine Present /lpf; Ketones Urine Negative (Negative); Leukocyte Esterase Ur 3+ LEU/UL (Negative); Mucus Urine Present /lpf; Need Manual Microscopic Reviewed; Nitrate Urine Positive (Negative); Non Pathogenic Casts >20; Protein Urine 1+ mg/dL (Negative); Squamous Epithelial Cell Urine Few /hpf (Few); Urobilinogen Urine 0.2 mg/dL (<2.0); WBC Urine >100 /hpf (0-3); pH Urine 5.5 (5.0-9.0)
[2024-08-11 21:09] LABS: Eosinophil Urine None Seen % (None Seen); Urine Eos QC 2nd Tech Confirmed
[2024-08-11 22:07] LABS: Glucose Point of Care 141 mg/dl (65-105)
[2024-08-12] VITALS (15 sets, daily range): BP systolic 123–143; BP diastolic 48–56; PULSE 51–103; RESP 15–20; TEMP 35.9–36.8; O2SAT 88–100
[2024-08-12] MEDS: LEVOTHYROXINE SODIUM 100 MCG TABLET PO (06:25)
[2024-08-12 06:43] LABS: Basophils Absolute Auto 0.1 K/mm3 (0.0-0.1); Basophils Percent Auto 0.8 % (0.2-1.2); Eosinophils Absolute Auto 0.4 K/mm3 (0-0.3); Eosinophils Percent Auto 5.4 % (0-4.4); Hematocrit 26.2 % (37.0-47.0); Hemoglobin 7.7 g/dL (12.0-15.0); Immature Granulocyte Absolute 0.03 K/mm3 (0.00-0.031); Immature Granulocyte Percent A 0.5 % (0-0.5); Mean Corpuscular HGB Conc 29.4 g/dl (32-36); Mean Corpuscular Volume 91.9 fl (80-100); Monocytes Absolute Auto 0.5 K/mm3 (0.1-0.6); Monocytes Percent Auto 6.9 % (2.6-8.5); Neutrophils Absolute Auto 4.3 K/mm3 (1.3-6.7); Neutrophils Percent Auto 66.4 % (45.5-73.1); Platelet Count Result 279 k/mm3 (150-375); Red Blood Count 2.85 M/mm3 (4.2-5.4); Red Cell Distribution Width 16.9 % (11.5-14.5); White Blood Count 6.5 K/mm3 (4.5-10.0)
[2024-08-12 07:04] LABS: Alanine Aminotransferase 21 U/L (6-35); Albumin Level 3.3 g/dL (3.5-5.1); Alkaline Phosphatase 175 U/L (38-126); Anion Gap 5 mmol/L (4-12); Aspartate Amino Transferase 20 U/L (14-36); Bilirubin,Total 0.3 mg/dL (0.2-1.3); Blood Urea Nitrogen 62 mg/dL (7-17); Calcium 9.2 mg/dL (8.4-10.2); Carbon Dioxide 30 mmol/L (22-30); Chloride 106 mmol/L (98-107); Estimated CRCL calculation 18 ml/min; Estimated Glomerular Filt Rate 14; Glucose 94 mg/dL (65-110); Potassium 4.5 mmol/L (3.4-5.0); Sodium 141 mmol/L (137-145)
[2024-08-12 07:09] LABS: Iron 20 ug/dL (37-170)
[2024-08-12 07:19] LABS: Percent Iron Saturation 7 % (20-50)
[2024-08-12 07:38] LABS: Hypochromasia 2+; Platelet Estimate Adequate (Adequate); Schistocytes None Seen; Stomatocytes 1+
[2024-08-12 07:44] LABS: Glucose Point of Care 92 mg/dl (65-105)
--- NOTE | 2024-08-12 09:38 | P.PNIM_ITS ---
Progress Note: A&P Assessment and Plan (1) Acute respiratory failure with hypoxia: Code(s): J96.01 - Acute respiratory failure with hypoxia Status: Acute Assessment and Plan: Per chart review, according to EMS her SpO2 was 84% on room air and she was placed on a non-rebreather at 15 L with some improvement. Baseline RA. Likely secondary to CHF exacerbation. - Back to baseline RA - Wean as tolerated for SpO2 > 90 08/11- will order chest xray since oxygen requirements increased 08/12 atelectasis vs pneumonia- will treat as pneumonia in setting increased oxygen demands and confusion. (2) CHF exacerbation: Code(s): I50.9 - Heart failure, unspecified Status: Deleted Assessment and Plan: - Symptoms: shortness of breath with BLE edema and orthopnea She was having some chest discomfort with increased work of breathing earlier -but it is all resolved Pulmonary embolism seems less likely as she is on chronic anticoagulation. - Current medications: Bumex 1 mg IV daily - BNP: 1560 - EKG: without ST segment changes and troponin has been negative x2. - Chest XR: Interstitial prominence suggesting pneumonitis or pulmonary interstitial edema. Possible minimal pleural effusions. Normal heart size. Coronary stent - Chest CT: Moderate interstitial pulmonary edema. Trace bilateral pleural effusions. - Echo 04/08/2024: LVEF 65-70% with grade I diastolic dysfunction - Monitor vital signs, I&Os, BUN/creatinine, daily weights, neuro status and patient is a fall risk - Monitor serum electrolytes, Keep serum Potassium>4 and serum Magnesium>2 and CBC 08/11- will consult cardiology for help with chf/afib mngmnt 08/12 possible rt heart cath tomorrow (3) Acute kidney injury superimposed on chronic kidney disease: Code(s): N17.9 - Acute kidney failure, unspecified; N18.9 - Chronic kidney disease, unspecified Status: Acute Assessment and Plan: Per nephrology note on 07/29, baseline creatinine fluctuates to extremes -- anywhere from 1.6 - 2.4mg/dl (in the last year) - BUN/Cr 53/3.7 on am labs - Worsening Cr likely related to patients ongoing diuresis for CHF exacerbation (Bumex made daily instead of BID) vs overcontrol of her BP per nephrology note consider having BP range closer to 150s systolic - Monitor renal function and I/O - Avoid nephrotoxic medications - Renally dose medications - Nephrology consulted, appreciate recommendations if stable -anticipate discharge in the next few days (4) Anemia: Qualifiers: Anemia type: unspecified type Qualified Code(s): D64.9 - Anemia, unspecified Code(s): D64.9 - Anemia, unspecified Status: Acute Assessment and Plan: Iron low -started on iron supplementation - f/u with pcp in 2-3 month for recheck (5) Coronary artery disease: Code(s): I25.10 - Atherosclerotic heart disease of [place] coronary artery without angina pectoris Status: Acute Assessment and Plan: Chronic, continue home medications. (6) Type 2 diabetes mellitus with hyperglycemia, with long-term current use of insulin: Code(s): E11.65 - Type 2 diabetes mellitus with hyperglycemia; Z79.4 - [employer] ( current) use of insulin Status: Chronic Assessment and Plan: home insulin toujeo- 45 units at hs, ss14 units of lispro Continue basal insulin. Initiate sliding scale insulin, Accu-Cheks, and hypoglycemic protocol. (7) Obstructive sleep apnea on CPAP: Code(s): G47.33 - Obstructive sleep apnea (adult) (pediatric); Z99.89 - Dependence on other enabling machines and devices Status: Chronic Assessment and Plan: Does not use CPAP at home. ABG ordered. (8) Hypothyroidism (acquired): Code(s): E03.9 - Hypothyroidism, unspecified Status: Acute Assessment [place]: [place] [id number] currently on 75 mcg levothyroxine Will increase to 100 mcg on 08/07 and will need TSH recheck in 6-8 weeks as an outtpt- mid to end of October (9) Urinary tract infection: Code(s): N39.0 - Urinary tract infection, site not specified Status: Acute Assessment and Plan: ua was collected yesterday due to increased confusion. start cefepime to cover uti/pneumonia monitor for ua culture results to narrow antibiotics down pharmacy to renally dose (10) Altered mental status: Qualifiers: Altered mental status type: unspecified Qualified Code(s): R41.82 - Altered mental status, unspecified Code(s): R41.82 - Altered mental status, unspecified Status: Resolved Assessment and Plan: ua was collected,chest xray done to rule out any infectious couses - son states that pt has problems with normal activities like eating-and has episodes of confusion, ?blanking out -will order ct head and consult neurology for eval Time Spent With Patient Time with patient: Greater than 35 minutes Subjective Date/time seen: 08/12/24 09:38 Interval history: seen and examined. cardiology saw her yesterday- if sob not better-possible rt heart cath needed. son is concerned about her intermitted confusion and sudden weakness episodes w hich is totally new for her. she is off oxygen today though-resp statu stable. Review of Systems Review of Systems: 12 systems were reviewed and are negativ e except for as per HPI. Exam Narrative: AF HR 65 RR 20 SPO2 99 BP 110/50 General: female in no acute respiratory distress who is nontoxic appearing, lying semi recumbent in bed. HEENT: Normocephalic. Atraumatic. Extraocular movement intact. Sclera clear and anicteric. No facial asymmetry. Chest: Lungs are diminished to auscultation bilaterally with lower base crackles. No wheezes. CV: Heart was regular rate and rhythm. S1-S2. No murmurs, gallops, or rubs. Abd: Abdomen was soft. Nontender. Nondistended. Positive bowel sounds. No organomegaly or masses. Ext: No clubbing, cyanosis, or edema. 2+ DP pulses bilaterally. Neuro: Patient is alert and oriented x3 (person, place, year). Cranial nerves 2- 12 are intact. Speech is clear. Objective Data Vital Signs Vital Signs: Vital Signs - 24 hr 08/11/24 14:00 08/11/24 12:00 08/11/24 16:00 Temperature 98.0 F Pulse Rate 68 55 L 53 L Respiratory Rate 18 Blood Pressure 102/44 L Pulse Oximetry 100 Oxygen Delivery Oxygen Flow Rate 08/11/24 20:34 08/11/24 21:00 08/11/24 20:00 Temperature 97 F L Pulse Rate 53 L 53 L Respiratory Rate 20 Blood Pressure 146/57 H Pulse Oximetry 100 100 Oxygen Delivery Nasal Cannula Oxygen Flow Rate 3 08/11/24 21:00 08/12/24 02:17 08/12/24 02:18 Temperature Pulse Rate 53 L 56 L Respiratory Rate 15 Blood Pressure Pulse Oximetry 99 88 L 96 Oxygen Delivery Nasal Cannula Nasal Cannula CPAP Oxygen Flow Rate 2 2 08/11/24 20:00 08/12/24 00:00 08/12/24 04:45 Temperature 96.7 F L Pulse Rate 48 L 52 L 103 H Respiratory Rate 20 Blood Pressure 129/48 L Pulse Oximetry 100 Oxygen Delivery Oxygen Flow Rate 08/12/24 04:00 08/12/24 08:00 Temperature 98.2 F Pulse Rate 51 L 68 Respiratory Rate 18 Blood Pressure 123/56 L Pulse Oximetry 100 Oxygen Delivery Oxygen Flow Rate Intake/Output Intake/Output: Intake & Output 08/09/24 08/10/24 08/11/24 08/12/24 23:59 23:59 23:59 23:59 Intake Total 1340 1476 1916 680 Output Total 400 151 750 650 Balance 940 1325 1166 30 Meds/Results Medications: Active Medications Generic Name Dose Route Start Last Admin Trade Name Freq PRN Reason Stop Dose Admin Acetaminophen 650 mg 08/06/24 22:10 08/09/24 08:40 Acetaminophen 325 Mg Tablet PO 650 mg Q6H PRN Administration Mild Pain (1-3) or Fever Allopurinol 100 mg 08/07/24 09:00 08/11/24 08:08 Allopurinol 100 Mg Tablet PO 100 mg DAILY NICOLE Administration Amiodarone HCl 200 mg 08/06/24 21:15 08/11/24 20:34 Amiodarone Hcl 200 Mg Tablet PO Not Given HS NICOLE Apixaban 5 mg 08/06/24 21:20 08/11/24 20:36 Apixaban 5 Mg Tablet PO 5 mg Q12HR NICOLE Administration Bumetanide 1 mg 08/10/24 09:00 08/11/24 08:09 Bumetanide Inj 1 Mg/4 Ml Vial IV PUSH 1 mg DAILY NICOLE Administration Bupropion HCl 150 mg 08/07/24 09:00 08/11/24 08:08 Bupropion Hcl Xl (24 Hr) 150 Mg Tabcr PO 150 mg DAILY NICOLE Administration Buspirone HCl 15 mg 08/07/24 09:00 08/11/24 08:09 Buspirone Hcl 5 Mg Tablet PO 15 mg DAILY NICOLE Administration Calcium Carbonate 500 mg 08/07/24 09:00 08/11/24 08:08 Calcium/Vitamin D 500 Mg/5 Mcg (200 I.U.) Tablet PO 500 mg QAM NICOLE Administration Carvedilol 6.25 mg 08/06/24 21:45 08/09/24 08:41 Carvedilol 6.25 Mg Tablet PO 6.25 mg Q12HR NICOLE Administration Dextrose 12.5 gm 08/06/24 22:10 Dextrose 50% 25 Gm/50 Ml Syringe IV PUSH PRN PRN Hypoglycemia Protocol Divalproex Sodium 500 mg 08/06/24 21:50 08/11/24 20:35 Divalproex Sodium Er 500 Mg Tab.24h PO 500 mg HS NICOLE Administration Famotidine 20 mg 08/06/24 21:20 08/11/24 20:35 Famotidine 20 Mg Tablet PO 20 mg HS NICOLE Administration Ferrous Sulfate 142 mg 08/08/24 08:00 08/11/24 08:08 Ferrous Sulfate Dried 142 Mg Tabcr PO 142 mg DAILY@0800 NICOLE Administration Gabapentin 100 mg 08/07/24 09:00 08/11/24 16:42 Gabapentin 100 Mg Capsule PO 100 mg TID NICOLE Administration Glucagon 1 mg 08/06/24 22:10 Glucagon For Inj 1 Mg Vial IM PRN PRN Hypoglycemia Protocol Glucose 15 gm 08/06/24 22:10 Glucose Oral Gel 15 Gm Of Glucse In 37.5 Gm Tube PO PRN PRN Hypoglycemia Protocol Dextrose 1,000 mls @ 100 mls/hr 08/06/24 22:10 Dextrose 5% 1,000 Ml IVPB PRN PRN Hypoglycemia Protocol Insulin Aspart 3 - 6 units 08/07/24 08:00 08/12/24 07:45 Insulin Aspart (*Bkc) 100 Units/Ml SUB-Q Not Given TIDWM [facility] Protocol Insulin Aspart 1 - 3 units 08/07/24 21:00 08/11/24 22:06 Insulin Aspart (*Bkc) 100 Units/Ml SUB-Q Not Given HS [facility] Protocol Insulin Glargine 40 units 08/07/24 09:00 08/11/24 08:07 Insulin Glargine (*Bkc) 100 Units/Ml SUB-Q Not Given DAILY NICOLE Isosorbide Dinitrate 5 mg 08/09/24 21:00 08/11/24 20:36 Isosorbide Dinitrate 5 Mg Tablet PO 5 mg Q12HR NICOLE Administration Levothyroxine Sodium 100 mcg 08/08/24 06:30 08/12/24 06:25 Levothyroxine Sodium 100 Mcg Tablet PO 100 mcg DAILY@0630 NICOLE Administration Memantine 10 mg 08/06/24 21:15 08/11/24 20:36 Memantine 10 Mg Tablet PO 10 mg Q12HR NICOLE Administration Miscellaneous Information 1 each 08/06/24 00:01 08/12/24 00:03 Evolocumab [Repatha Sureclick] 140 Mg/Ml Pen Injector) Is Nonformulary, Can Patient Bring XX 09/05/24 00:00 Not Given CLARIFY [facility] Miscellaneous Information 1 each 08/06/24 00:01 08/12/24 00:03 (Trospium 20 Mg Tablet) Is Nonformulary, Can Patient Bring From Home? XX 09/05/24 00:00 Not Given CLARIFY [facility] Multivitamins/Minerals 1 tablet 08/07/24 09:00 08/11/24 20:37 Opti-Gen Tab PO 1 tablet Q12HR NICOLE Administration Mupirocin 1 applic 08/07/24 09:00 08/11/24 16:42 Mupirocin 2% Oint 22 Gm Tube TOPICAL 1 applic BID NICOLE Administration Non-Formulary Medication 140 mg 08/06/24 21:15 Evolocumab [Repatha Sureclick] SUB-Q 09/05/24 21:14 Q14D NICOLE Non-Formulary Medication 14 unit 08/06/24 21:15 Insulin Lispro [Humalog Kwikpen Insulin] SUB-Q 09/05/24 21:14 .tidac NICOLE Non-Formulary Medication 20 mg 08/06/24 21:15 Trospium PO 09/05/24 21:14 Q12H NICOLE Nystatin 1 applic 08/06/24 21:12 Nystatin Ointment 15 Gm Tube TOPICAL BID PRN Rash Pantoprazole Sodium 40 mg 08/07/24 09:00 08/11/24 20:35 Pantoprazole 40 Mg Tablet PO 40 mg Q12HR NICOLE Administration Pramipexole Dihydrochloride 0.25 mg 08/06/24 21:30 08/11/24 20:37 Pramipexole 0.25 Mg Tablet PO 0.25 mg Q12HR NICOLE Administration Venlafaxine HCl 75 mg 08/07/24 09:00 08/11/24 20:37 Venlafaxine Hcl 75 Mg Tablet BY MOUTH 75 mg Q12HR NICOLE Administration Venlafaxine HCl 50 mg 08/07/24 09:00 08/11/24 20:35 Venlafaxine Hcl 25 Mg Tablet BY MOUTH 50 mg Q12HR NICOLE Administration Vitamin B Complex 1 cap 08/07/24 09:00 08/11/24 08:08 Vitamin B Complex Capsule PO 1 cap DAILY NICOLE Administration Radiology Results: ITS Impressions Chest CT 08/06/24 15:17 IMPRESSION: Moderate interstitial pulmonary edema. Trace bilateral pleural effusions. Renal Ultrasound 08/09/24 13:35 IMPRESSION: 1. Normal kidneys. No hydronephrosis. Chest X-Ray 08/11/24 13:18 IMPRESSION: 1. Airspace opacities in the lower lung zones with worsening on the left, consistent with atelectasis versus pneumonia. 2. Worsened small pleural effusions. Labs Labs: Laboratory Results - last 24 hr 08/11/24 08/11/24 08/11/24 11:29 12:59 16:57 WBC RBC Hgb Hct MCV MCH MCHC RDW Plt Count MPV Immature Gran % (Auto) Neut % (Auto) Lymph % (Auto) [place] % (Auto) Eos % (Auto) Baso % (Auto) Lymph # (Auto) [place] # (Auto) Eos # (Auto) Baso # (Auto) Abs Immat Gran (auto) Absolute Neuts (auto) Absolute Nucleated RBC Nucleated RBC % Platelet Estimate Hypochromasia Stomatocytes Schistocytes Sodium Potassium Chloride Carbon Dioxide Anion Gap BUN Creatinine Estim Creat Clear Calc Estimated GFR Glucose POC Capillary Glucose > 500 H* 237 H 160 H Calcium Iron TIBC % Saturation Total Bilirubin AST ALT Alkaline Phosphatase Total Protein Albumin Urine Color Urine Appearance Urine pH Ur Specific [place] Urine Protein Urine Glucose (UA) Urine Ketones Ur Blood (Man) Urine Nitrate Urine Bilirubin Urine Urobilinogen Add Ur Microanalysis Leukocyte Esterase Rfl Urine RBC Urine WBC Ur Squamous Epith Cells Urine Bacteria Urine Casts Hyaline Casts Urine Mucus Urine Eosinophils 08/11/24 08/11/24 08/12/24 20:48 21:08 06:10 WBC 6.5 RBC 2.85 L Hgb 7.7 L Hct 26.2 L MCV 91.9 MCH 27.0 MCHC 29.4 L RDW 16.9 H Plt Count 279 MPV 10.0 Immature Gran % (Auto) 0.5 Neut % (Auto) 66.4 Lymph % (Auto) 20.0 [place] % (Auto) 6.9 Eos % (Auto) 5.4 H Baso % (Auto) 0.8 Lymph # (Auto) 1.30 [place] # (Auto) 0.5 Eos # (Auto) 0.4 H Baso # (Auto) 0.1 Abs Immat Gran (auto) 0.03 Absolute Neuts (auto) 4.3 Absolute Nucleated RBC 0.000 Nucleated RBC % 0.0 Platelet Estimate Adequate Hypochromasia 2+ Stomatocytes 1+ Schistocytes None seen Sodium 141 Potassium 4.5 Chloride 106 Carbon Dioxide 30 Anion Gap 5 BUN 62 H Creatinine 3.20 H Estim Creat Clear Calc 18 Estimated GFR 14 L Glucose 94 POC Capillary Glucose 141 H Calcium 9.2 Iron 20 L TIBC 301 % Saturation 7 L Total Bilirubin 0.3 AST 20 ALT 21 Alkaline Phosphatase 175 H Total Protein 7.0 Albumin 3.3 L Urine Color Yellow Urine Appearance Turbid H Urine pH 5.5 Ur Specific [place] 1.020 Urine Protein 1+ H Urine Glucose (UA) Negative Urine Ketones Negative Ur Blood (Man) 2+ H Urine Nitrate Positive H Urine Bilirubin Negative Urine Urobilinogen 0.2 Add Ur Microanalysis Reviewed Leukocyte Esterase Rfl 3+ H Urine RBC 11-20 H Urine WBC >100 H Ur Squamous Epith Cells Few Urine Bacteria 4+ H Urine Casts >20 Hyaline Casts Present Urine Mucus Present Urine Eosinophils None seen 08/12/24 07:34 WBC RBC Hgb Hct MCV MCH MCHC RDW Plt Count MPV Immature Gran % (Auto) Neut % (Auto) Lymph % (Auto) [place] % (Auto) Eos % (Auto) Baso % (Auto) Lymph # (Auto) [place] # (Auto) Eos # (Auto) Baso # (Auto) Abs Immat Gran (auto) Absolute Neuts (auto) Absolute Nucleated RBC Nucleated RBC % Platelet Estimate Hypochromasia Stomatocytes Schistocytes Sodium Potassium Chloride Carbon Dioxide Anion Gap BUN Creatinine Estim Creat Clear Calc Estimated GFR Glucose POC Capillary Glucose 92 Calcium Iron TIBC % Saturation Total Bilirubin AST ALT Alkaline Phosphatase Total Protein Albumin Urine Color Urine Appearance Urine pH Ur Specific [place] Urine Protein Urine Glucose (UA) Urine Ketones Ur Blood (Man) Urine Nitrate Urine Bilirubin Urine Urobilinogen Add Ur Microanalysis Leukocyte Esterase Rfl Urine RBC Urine WBC Ur Squamous Epith Cells Urine Bacteria Urine Casts Hyaline Casts Urine Mucus Urine Eosinophils Quality VTE Prophylaxis VTE prophylaxis: pharmacologic ordered (on apixaban)
[2024-08-12] MEDS: INSULIN GLARGINE (*BKC) 100 UNITS/ML 40 UNITS SUB-Q (09:48)
[2024-08-12] MEDS: BUMETANIDE INJ 1 MG/4 ML VIAL IV PUSH (09:49)
[2024-08-12] MEDS: GABAPENTIN 100 MG CAPSULE PO ×3 (09:50→16:58)
[2024-08-12] MEDS: ISOSORBIDE DINITRATE 5 MG TABLET PO ×2 (09:50→21:19)
[2024-08-12] MEDS: VENLAFAXINE HCL 75 MG TABLET BY MOUTH ×2 (09:50→21:20)
[2024-08-12] MEDS: busPIRone HCL 5 MG TABLET 15 MG PO (09:50)
[2024-08-12] MEDS: OPTI-GEN TAB 1 TABLET PO ×2 (09:50→21:20)
[2024-08-12] MEDS: PANTOPRAZOLE 40 MG TABLET PO ×2 (09:50→21:20)
[2024-08-12] MEDS: MEMANTINE 10 MG TABLET PO ×2 (09:51→21:20)
[2024-08-12] MEDS: VENLAFAXINE HCL 25 MG TABLET 50 MG BY MOUTH ×2 (09:51→21:19)
[2024-08-12] MEDS: APIXABAN 5 MG TABLET PO (09:51)
[2024-08-12] MEDS: PRAMIPEXOLE 0.25 MG TABLET PO ×2 (09:51→21:19)
[2024-08-12] MEDS: buPROPion HCL XL (24 HR) 150 MG TABCR PO (09:51)
[2024-08-12] MEDS: VITAMIN B COMPLEX CAPSULE 1 CAP PO (09:51)
[2024-08-12] MEDS: FERROUS SULFATE DRIED 142 MG TABCR PO (09:51)
[2024-08-12] MEDS: allopurinoL 100 MG TABLET PO (09:51)
[2024-08-12] MEDS: CALCIUM/VITAMIN D 500 MG/5 MCG (200 I.U.) TABLET PO (09:51)
--- NOTE | 2024-08-12 10:22 | P.PNNP_ITS ---
Progress Note: A&P Assessment and Plan (1) ALBERTINA (acute kidney injury): Code(s): N17.9 - Acute kidney failure, unspecified Status: Acute Assessment and Plan: * slow improvement noted * elevated on admission (but close to what it was on last hospital discharge) * worsening noted during this hospitalization * presumably due to need for diuresis * holding diuretics on last hospitalization resulted in only mild imp rovement in renal function (and may have precipitated re-admission) * evaluation noted: * renal u/s normal * CPK slightly elevated (but not likely to affect kidney function) * urine electrolytes prerenal * UA negative for infection by culture * moderate proteinuria * follow trend of repeat labs and UOP (2) Chronic kidney disease, stage IV (severe): Code(s): N18.4 - Chronic kidney disease, stage 4 (severe) Status: Chronic Assessment and Plan: * baseline creatinine fluctuates to extremes -- anywhere from 1.6 - 2.4mg/dl (in the last year) * this causes her to fluctuate between CKD stage 3b and stage 4 * due to her hypertension, diabetes, obstructive sleep apnea, gout, diastolic heart failure + diuretics, and age-related change * this may be a situation where we have to accept a higher creatinine to maintain her volume status... (3) Acute on chronic diastolic heart failure: Code(s): I50.33 - Acute on chronic diastolic (congestive) heart failure Status: Deleted Assessment and Plan: * mild improvement noted * as noted by presentation to the ER: * bilateral LE edema + SOB + orthopnea * BNP: 1560 * admission CXR with nterstitial prominence suggesting pneumonitis or pulmonary interstitial edema. Possible minimal pleural effusions * chest CT with moderate interstitial pulmonary edema. Trace bilateral pleural effusions * on IV diuretics * trial dose of metolazone today * Cardiology following * possible right heart catheterization * follow respiratory status (4) Hypertension: Qualifiers: Hypertension type: unspecified Qualified Code(s): I10 - Essential (elie bart) hypertension Code(s): I10 - Essential (primary) hypertension Status: Chronic Assessment and Plan: * reasonable control at this time * follow trend of hemodynamics (5) Paroxysmal atrial fibrillation: Code(s): I48.0 - Paroxysmal atrial fibrillation Status: Chronic Assessment and Plan: * rate control strategy * on anticoagulation (6) Anemia: Qualifiers: Anemia type: unspecified type Qualified Code(s): D64.9 - Anemia, unspecified Code(s): D64.9 - Anemia, unspecified Status: Acute Assessment and Plan: * partly related to CKD along with ALBERTINA and acute illness * will dose with Retacrit 3x/week while hospitalized * PRBC transfusion per protocol * follow trend of H/H (7) Type 2 diabetes mellitus: Code(s): E11.9 - Type 2 diabetes mellitus without complications Status: Acute Assessment and Plan: * follow accu-cheks * glycemic control per hospitalists Will continue to follow. Subjective Date/time seen: 08/12/24 10:22 Interval history: Follow-up for acute kidney injury/acute renal failure on chronic kidney disease. Renal function/creatinine improved/better at this time; breathing/respiratory status stable but not really any better (but not any worse); possible UTI based on recent urinalysis; no other acute complaints voiced on my visit; no other issues/events overnight or earlier this morning. Exam Narrative: General: elderly but WD/WN female in NAD Heart: normal S1 and S2; no rub Lungs: clear anteriorly; decreased at bases with a few crackles Abdomen: soft, nontender, nondistended, positive bowel sounds Extremities: no cyanosis or clubbing; trace edema Skin: no rash Objective Data Vital Signs Vital Signs: Vital Signs Temp Pulse Resp BP Pulse Ox O2 Del Method O2 Flow Rate 08/12/24 09:55 93 Room Air 08/12/24 08:00 98.2 F 68 18 123/56 L 100 08/12/24 04:00 51 L 08/12/24 04:45 96.7 F L 103 H 20 129/48 L 100 08/12/24 00:00 52 L 08/11/24 20:00 48 L 08/12/24 02:18 56 L 96 CPAP 08/12/24 02:17 53 L 15 88 L Nasal Cannula 2 08/11/24 21:00 99 Nasal Cannula 2 08/11/24 20:00 100 Nasal Cannula 3 08/11/24 21:00 97 F L 53 L 20 146/57 H 100 08/11/24 20:34 53 L 08/11/24 16:00 53 L 08/11/24 14:00 98.0 F 68 18 102/44 L 100 Intake/Output Intake/Output: Intake & Output 12/03/24 12/04/24 12/05/24 12/06/24 23:59 23:59 23:59 23:59 Intake Total 1340 1476 1916 680 Output Total 400 151 750 650 Balance 940 1325 1166 30 Meds/Results Medications: Active Medications Generic Name Dose Route Start Last Admin Trade Name Freq PRN Reason Stop Dose Admin Acetaminophen 650 mg 08/06/24 22:10 08/09/24 08:40 Acetaminophen 325 Mg Tablet PO 650 mg Q6H PRN Administration Mild Pain (1-3) or Fever Allopurinol 100 mg 08/07/24 09:00 08/12/24 09:51 Allopurinol 100 Mg Tablet PO 100 mg DAILY NICOLE Administration Amiodarone HCl 200 mg 08/06/24 21:15 08/11/24 20:34 Amiodarone Hcl 200 Mg Tablet PO Not Given HS NICOLE Apixaban 5 mg 08/06/24 21:20 08/12/24 09:51 Apixaban 5 Mg Tablet PO 5 mg Q12HR NICOLE Administration Bumetanide 1 mg 08/10/24 09:00 08/12/24 09:49 Bumetanide Inj 1 Mg/4 Ml Vial IV PUSH 1 mg DAILY NICOLE Administration Bupropion HCl 150 mg 08/07/24 09:00 08/12/24 09:51 Bupropion Hcl Xl (24 Hr) 150 Mg Tabcr PO 150 mg DAILY NICOLE Administration Buspirone HCl 15 mg 08/07/24 09:00 08/12/24 09:50 Buspirone Hcl 5 Mg Tablet PO 15 mg DAILY NICOLE Administration Calcium Carbonate 500 mg 08/07/24 09:00 08/12/24 09:51 Calcium/Vitamin D 500 Mg/5 Mcg (200 I.U.) Tablet PO 500 mg QAM NICOLE Administration Carvedilol 6.25 mg 08/06/24 21:45 08/09/24 08:41 Carvedilol 6.25 Mg Tablet PO 6.25 mg Q12HR NICOLE Administration Dextrose 12.5 gm 08/06/24 22:10 Dextrose 50% 25 Gm/50 Ml Syringe IV PUSH PRN PRN Hypoglycemia Protocol Divalproex Sodium 500 mg 08/06/24 21:50 08/11/24 20:35 Divalproex Sodium Er 500 Mg Tab.24h PO 500 mg HS NICOLE Administration Famotidine 20 mg 08/06/24 21:20 08/11/24 20:35 Famotidine 20 Mg Tablet PO 20 mg HS NICOLE Administration Ferrous Sulfate 142 mg 08/08/24 08:00 08/12/24 09:51 Ferrous Sulfate Dried 142 Mg Tabcr PO 142 mg DAILY@0800 NICOLE Administration Gabapentin 100 mg 08/07/24 09:00 08/12/24 09:50 Gabapentin 100 Mg Capsule PO 100 mg TID NICOLE Administration Glucagon 1 mg 08/06/24 22:10 Glucagon For Inj 1 Mg Vial IM PRN PRN Hypoglycemia Protocol Glucose 15 gm 08/06/24 22:10 Glucose Oral Gel 15 Gm Of Glucse In 37.5 Gm Tube PO PRN PRN Hypoglycemia Protocol Dextrose 1,000 mls @ 100 mls/hr 08/06/24 22:10 Dextrose 5% 1,000 Ml IVPB PRN PRN Hypoglycemia Protocol Insulin Aspart 3 - 6 units 08/07/24 08:00 08/12/24 11:55 Insulin Aspart (*Bkc) 100 Units/Ml SUB-Q Not Given TIDWM [facility] Protocol Insulin Aspart 1 - 3 units 08/07/24 21:00 08/11/24 22:06 Insulin Aspart (*Bkc) 100 Units/Ml SUB-Q Not Given HS [facility] Protocol Insulin Glargine 40 units 08/07/24 09:00 08/12/24 09:48 Insulin Glargine (*Bkc) 100 Units/Ml SUB-Q 40 units DAILY NICOLE Administration Isosorbide Dinitrate 5 mg 08/09/24 21:00 08/12/24 09:50 Isosorbide Dinitrate 5 Mg Tablet PO 5 mg Q12HR NICOLE Administration Levothyroxine Sodium 100 mcg 08/08/24 06:30 08/12/24 06:25 Levothyroxine Sodium 100 Mcg Tablet PO 100 mcg DAILY@0630 NICOLE Administration Memantine 10 mg 08/06/24 21:15 08/12/24 09:51 Memantine 10 Mg Tablet PO 10 mg Q12HR NICOLE Administration Miscellaneous Information 1 each 08/06/24 00:01 08/12/24 00:03 Evolocumab [Repatha Sureclick] 140 Mg/Ml Pen Injector) Is Nonformulary, Can Patient Bring XX 09/05/24 00:00 Not Given CLARIFY NICOLE Miscellaneous Information 1 each 08/06/24 00:01 08/12/24 00:03 (Trospium 20 Mg Tablet) Is Nonformulary, Can Patient Bring From Home? XX 09/05/24 00:00 Not Given CLARIFY [facility] Multivitamins/Minerals 1 tablet 08/07/24 09:00 08/12/24 09:50 Opti-Gen Tab PO 1 tablet Q12HR NICOLE Administration Mupirocin 1 applic 08/07/24 09:00 08/11/24 16:42 Mupirocin 2% Oint 22 Gm Tube TOPICAL 1 applic BID NICOLE Administration Non-Formulary Medication 140 mg 08/06/24 21:15 Evolocumab [Repatha Sureclick] SUB-Q 09/05/24 21:14 Q14D NICOLE Non-Formulary Medication 14 unit 08/06/24 21:15 Insulin Lispro [Humalog Kwikpen Insulin] SUB-Q 09/05/24 21:14 .tidac NICOLE Non-Formulary Medication 20 mg 08/06/24 21:15 Trospium PO 09/05/24 21:14 Q12H NICOLE Nystatin 1 applic 08/06/24 21:12 Nystatin Ointment 15 Gm Tube TOPICAL BID PRN Rash Pantoprazole Sodium 40 mg 08/07/24 09:00 08/12/24 09:50 Pantoprazole 40 Mg Tablet PO 40 mg Q12HR NICOLE Administration Pramipexole Dihydrochloride 0.25 mg 08/06/24 21:30 08/12/24 09:51 Pramipexole 0.25 Mg Tablet PO 0.25 mg Q12HR NICOLE Administration Venlafaxine HCl 75 mg 08/07/24 09:00 08/12/24 09:50 Venlafaxine Hcl 75 Mg Tablet BY MOUTH 75 mg Q12HR NICOLE Administration Venlafaxine HCl 50 mg 08/07/24 09:00 08/12/24 09:51 Venlafaxine Hcl 25 Mg Tablet BY MOUTH 50 mg Q12HR NICOLE Administration Vitamin B Complex 1 cap 08/07/24 09:00 08/12/24 09:51 Vitamin B Complex Capsule PO 1 cap DAILY NICOLE Administration Radiology Results: ITS Impressions Chest CT 08/06/24 15:17 IMPRESSION: Moderate interstitial pulmonary edema. Trace bilateral pleural effusions. Renal Ultrasound 08/09/24 13:35 IMPRESSION: 1. Normal kidneys. No hydronephrosis. Chest X-Ray 08/11/24 13:18 IMPRESSION: 1. Airspace opacities in the lower lung zones with worsening on the left, consistent with atelectasis versus pneumonia. 2. Worsened small pleural effusions. Labs Labs: Laboratory Tests 08/12/24 06:10 08/12/24 06:10 Calcium 9.2 Iron 20 L TIBC 301 % Saturation 7 L Total Bilirubin 0.3 AST 20 ALT 21 Alkaline Phosphatase 175 H Total Protein 7.0 Albumin 3.3 L
--- NOTE | 2024-08-12 11:35 | P.PNCA_ITS ---
Progress Note: A&P Assessment and Plan (1) Acute on chronic heart failure with preserved ejection fraction (HFpEF, >= 50%): Code(s): I50.33 - Acute on chronic diastolic (congestive) heart failure Status: Acute Assessment and Plan: Continue Bumex 1 mg IV push daily. Will give a one time dose of Metolazone today to see if this helps facilitate diuresis. If no significant improvement in volume status and difficult to diurese, recommend right heart catheterization in light of worsening renal function. I have placed the Eliquis on hold in case we decided to proceed with RHC (last dose of Eliquis 12/6 AM). (2) Acute kidney injury superimposed on chronic kidney disease: Code(s): N17.9 - Acute kidney failure, unspecified; N18.9 - Chronic kidney disease, unspecified Status: Acute Assessment and Plan: Nephrology consulted and following along. (3) Acute respiratory failure with hypoxia: Code(s): J96.01 - Acute respiratory failure with hypoxia Status: Acute Assessment and Plan: Wean off oxygen as tolerated. (4) Coronary artery disease: Code(s): I25.10 - Atherosclerotic heart disease of [place] coronary artery without angina pectoris Status: Acute Assessment and Plan: Stable. On Repatha at home. (5) Paroxysmal atrial fibrillation: Code(s): I48.0 - Paroxysmal atrial fibrillation Status: Chronic Assessment and Plan: Rate controlled. Continue Amiodarone, Coreg. I have placed the Eliquis on hold in case we decided to proceed with RHC (last dose of Eliquis 12/6 AM). (6) Mixed hyperlipidemia: Code(s): E78.2 - Mixed hyperlipidemia Status: Acute Assessment and Plan: On Repatha at home. (7) Benign hypertension with chronic kidney disease: Code(s): I12.9 - Hypertensive chronic kidney disease with stage 1 through stage 4 chronic kidney disease, or unspecified chronic kidney disease Status: Acute Assessment and Plan: Stable, continue with Isordil, Bumex, Coreg. 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 Plan Patient's case was discussed with Nephrology, Dr. Eduardo. Subjective Date/time seen: 08/12/24 11:35 Interval history: Reason for visit: CHF HPI: 78-year-old woman with CAD status post PCI, chronic diastolic heart failure, paroxysmal atrial fibrillation, pulmonary hypertension, ANDREA on CPAP, CKD stage 4, diabetes type 2, and hypertension hyperlipidemia presented with several days of worsening shortness of breath. The shortness of breath would be associated with chest tightness. Most of the history was gathered through chart review as patient appears mildly confused. Date of service 08/12: Patient appears somewhat confused upon my evaluation today. Reports her shortness of breath is the same. Review of Systems Review of Systems: All systems reviewed & are unremarkable except as noted in HPI and below (HPI) Exam Const: General: no acute distress HENMT: Mouth: Yes moist mucous membranes Eyes: General: appearance normal, both eyes and all related structures Sclera: sclerae normal Resp: Effort & Inspection: normal respiratory effort Other: Decreased breath sounds. On supplemental oxygen. Cardio: Rhythm: abnormal rhythm irregularly irregular Other: + Bilateral lower extremity edema Skin: General skin exam: normal color Neuro: Speech: normal speech Psych: Mental Status: mental status grossly normal Affect: normal affect Objective Data Vital Signs Vital Signs: Vital Signs - 24 hr 08/11/24 14:00 08/11/24 12:00 08/11/24 16:00 Temperature 36.7 C Pulse Rate 68 55 L 53 L Respiratory Rate 18 Blood Pressure 102/44 L Pulse Oximetry 100 Oxygen Delivery Oxygen Flow Rate 08/11/24 20:34 08/11/24 21:00 08/11/24 20:00 Temperature 36.1 C L Pulse Rate 53 L 53 L Respiratory Rate 20 Blood Pressure 146/57 H Pulse Oximetry 100 100 Oxygen Delivery Nasal Cannula Oxygen Flow Rate 3 08/11/24 21:00 08/12/24 02:17 08/12/24 02:18 Temperature Pulse Rate 53 L 56 L Respiratory Rate 15 Blood Pressure Pulse Oximetry 99 88 L 96 Oxygen Delivery Nasal Cannula Nasal Cannula CPAP Oxygen Flow Rate 2 2 08/11/24 20:00 08/12/24 00:00 08/12/24 04:45 Temperature 35.9 C L Pulse Rate 48 L 52 L 103 H Respiratory Rate 20 Blood Pressure 129/48 L Pulse Oximetry 100 Oxygen Delivery Oxygen Flow Rate 08/12/24 04:00 08/12/24 08:00 08/12/24 09:55 Temperature 36.8 C Pulse Rate 51 L 68 Respiratory Rate 18 Blood Pressure 123/56 L Pulse Oximetry 100 93 Oxygen Delivery Room Air Oxygen Flow Rate Intake/Output Intake/Output: Intake & Output 08/09/24 08/10/24 08/11/24 08/12/24 23:59 23:59 23:59 23:59 Intake Total 1340 1476 1916 680 Output Total 400 151 750 650 Balance 940 1325 1166 30 Meds/Results Medications: Active Medications Generic Name Dose Route Start Last Admin Trade Name Freq PRN Reason Stop Dose Admin Acetaminophen 650 mg 08/06/24 22:10 08/09/24 08:40 Acetaminophen 325 Mg Tablet PO 650 mg Q6H PRN Administration Mild Pain (1-3) or Fever Allopurinol 100 mg 08/07/24 09:00 08/12/24 09:51 Allopurinol 100 Mg Tablet PO 100 mg DAILY NICOLE Administration Amiodarone HCl 200 mg 08/06/24 21:15 08/11/24 20:34 Amiodarone Hcl 200 Mg Tablet PO Not Given HS NICOLE Apixaban 5 mg 08/06/24 21:20 08/12/24 09:51 Apixaban 5 Mg Tablet PO 5 mg Q12HR NICOLE Administration Bumetanide 1 mg 08/10/24 09:00 08/12/24 09:49 Bumetanide Inj 1 Mg/4 Ml Vial IV PUSH 1 mg DAILY NICOLE Administration Bupropion HCl 150 mg 08/07/24 09:00 08/12/24 09:51 Bupropion Hcl Xl (24 Hr) 150 Mg Tabcr PO 150 mg DAILY NICOLE Administration Buspirone HCl 15 mg 08/07/24 09:00 08/12/24 09:50 Buspirone Hcl 5 Mg Tablet PO 15 mg DAILY NICOLE Administration Calcium Carbonate 500 mg 08/07/24 09:00 08/12/24 09:51 Calcium/Vitamin D 500 Mg/5 Mcg (200 I.U.) Tablet PO 500 mg QAM NICOLE Administration Carvedilol 6.25 mg 08/06/24 21:45 08/09/24 08:41 Carvedilol 6.25 Mg Tablet PO 6.25 mg Q12HR NICOLE Administration Dextrose 12.5 gm 08/06/24 22:10 Dextrose 50% 25 Gm/50 Ml Syringe IV PUSH PRN PRN Hypoglycemia Protocol Divalproex Sodium 500 mg 08/06/24 21:50 08/11/24 20:35 Divalproex Sodium Er 500 Mg Tab.24h PO 500 mg HS NICOLE Administration Famotidine 20 mg 08/06/24 21:20 08/11/24 20:35 Famotidine 20 Mg Tablet PO 20 mg HS NICOLE Administration Ferrous Sulfate 142 mg 08/08/24 08:00 08/12/24 09:51 Ferrous Sulfate Dried 142 Mg Tabcr PO 142 mg DAILY@0800 NICOLE Administration Gabapentin 100 mg 08/07/24 09:00 08/12/24 09:50 Gabapentin 100 Mg Capsule PO 100 mg TID NICOLE Administration Glucagon 1 mg 08/06/24 22:10 Glucagon For Inj 1 Mg Vial IM PRN PRN Hypoglycemia Protocol Glucose 15 gm 08/06/24 22:10 Glucose Oral Gel 15 Gm Of Glucse In 37.5 Gm Tube PO PRN PRN Hypoglycemia Protocol Dextrose 1,000 mls @ 100 mls/hr 08/06/24 22:10 Dextrose 5% 1,000 Ml IVPB PRN PRN Hypoglycemia Protocol Insulin Aspart 3 - 6 units 08/07/24 08:00 08/12/24 07:45 Insulin Aspart (*Bkc) 100 Units/Ml SUB-Q Not Given TIDWM [facility] Protocol Insulin Aspart 1 - 3 units 08/07/24 21:00 08/11/24 22:06 Insulin Aspart (*Bkc) 100 Units/Ml SUB-Q Not Given HS [facility] Protocol Insulin Glargine 40 units 08/07/24 09:00 08/12/24 09:48 Insulin Glargine (*Bkc) 100 Units/Ml SUB-Q 40 units DAILY NICOLE Administration Isosorbide Dinitrate 5 mg 08/09/24 21:00 08/12/24 09:50 Isosorbide Dinitrate 5 Mg Tablet PO 5 mg Q12HR NICOLE Administration Levothyroxine Sodium 100 mcg 08/08/24 06:30 08/12/24 06:25 Levothyroxine Sodium 100 Mcg Tablet PO 100 mcg DAILY@0630 NICOLE Administration Memantine 10 mg 08/06/24 21:15 08/12/24 09:51 Memantine 10 Mg Tablet PO 10 mg Q12HR NICOLE Administration Metolazone 5 mg 08/12/24 11:34 Metolazone 5 Mg Tablet PO 08/12/24 11:35 ONCE ONE Miscellaneous Information 1 each 08/06/24 00:01 08/12/24 00:03 Evolocumab [Repatha Sureclick] 140 Mg/Ml Pen Injector) Is Nonformulary, Can Patient Bring XX 09/05/24 00:00 Not Given CLARIFY [facility] Miscellaneous Information 1 each 08/06/24 00:01 08/12/24 00:03 (Trospium 20 Mg Tablet) Is Nonformulary, Can Patient Bring From Home? XX 09/05/24 00:00 Not Given CLARIFY [facility] Multivitamins/Minerals 1 tablet 08/07/24 09:00 08/12/24 09:50 Opti-Gen Tab PO 1 tablet Q12HR NICOLE Administration Mupirocin 1 applic 08/07/24 09:00 08/11/24 16:42 Mupirocin 2% Oint 22 Gm Tube TOPICAL 1 applic BID NICOLE Administration Non-Formulary Medication 140 mg 08/06/24 21:15 Evolocumab [Repatha Sureclick] SUB-Q 09/05/24 21:14 Q14D NICOLE Non-Formulary Medication 14 unit 08/06/24 21:15 Insulin Lispro [Humalog Kwikpen Insulin] SUB-Q 09/05/24 21:14 .tidac NICOLE Non-Formulary Medication 20 mg 08/06/24 21:15 Trospium PO 09/05/24 21:14 Q12H NICOLE Nystatin 1 applic 08/06/24 21:12 Nystatin Ointment 15 Gm Tube TOPICAL BID PRN Rash Pantoprazole Sodium 40 mg 08/07/24 09:00 08/12/24 09:50 Pantoprazole 40 Mg Tablet PO 40 mg Q12HR NICOLE Administration Pramipexole Dihydrochloride 0.25 mg 08/06/24 21:30 08/12/24 09:51 Pramipexole 0.25 Mg Tablet PO 0.25 mg Q12HR NICOLE Administration Venlafaxine HCl 75 mg 08/07/24 09:00 08/12/24 09:50 Venlafaxine Hcl 75 Mg Tablet BY MOUTH 75 mg Q12HR NICOLE Administration Venlafaxine HCl 50 mg 08/07/24 09:00 08/12/24 09:51 Venlafaxine Hcl 25 Mg Tablet BY MOUTH 50 mg Q12HR NICOLE Administration Vitamin B Complex 1 cap 08/07/24 09:00 08/12/24 09:51 Vitamin B Complex Capsule PO 1 cap DAILY NICOLE Administration Radiology Results: ITS Impressions Chest CT 08/06/24 15:17 IMPRESSION: Moderate interstitial pulmonary edema. Trace bilateral pleural effusions. Renal Ultrasound 08/09/24 13:35 IMPRESSION: 1. Normal kidneys. No hydronephrosis. Chest X-Ray 08/11/24 13:18 IMPRESSION: 1. Airspace opacities in the lower lung zones with worsening on the left, consistent with atelectasis versus pneumonia. 2. Worsened small pleural effusions. Labs Labs: Laboratory Results - last 24 hr 08/11/24 08/11/24 08/11/24 12:59 16:57 20:48 WBC RBC Hgb Hct MCV MCH MCHC RDW Plt Count MPV Immature Gran % (Auto) Neut % (Auto) Lymph % (Auto) [place] % (Auto) Eos % (Auto) Baso % (Auto) Lymph # (Auto) [place] # (Auto) Eos # (Auto) Baso # (Auto) Abs Immat Gran (auto) Absolute Neuts (auto) Absolute Nucleated RBC Nucleated RBC % Platelet Estimate Hypochromasia Stomatocytes Schistocytes Sodium Potassium Chloride Carbon Dioxide Anion Gap BUN Creatinine Estim Creat Clear Calc Estimated GFR Glucose POC Capillary Glucose 237 H 160 H Calcium Iron TIBC % Saturation Total Bilirubin AST ALT Alkaline Phosphatase Total Protein Albumin Urine Color Yellow Urine Appearance Turbid H Urine pH 5.5 Ur Specific [place] 1.020 Urine Protein 1+ H Urine Glucose (UA) Negative Urine Ketones Negative Ur Blood (Man) 2+ H Urine Nitrate Positive H Urine Bilirubin Negative Urine Urobilinogen 0.2 Add Ur Microanalysis Reviewed Leukocyte Esterase Rfl 3+ H Urine RBC 11-20 H Urine WBC >100 H Ur Squamous Epith Cells Few Urine Bacteria 4+ H Urine Casts >20 Hyaline Casts Present Urine Mucus Present Urine Eosinophils None seen 08/11/24 08/12/24 08/12/24 21:08 06:10 07:34 WBC 6.5 RBC 2.85 L Hgb 7.7 L Hct 26.2 L MCV 91.9 MCH 27.0 MCHC 29.4 L RDW 16.9 H Plt Count 279 MPV 10.0 Immature Gran % (Auto) 0.5 Neut % (Auto) 66.4 Lymph % (Auto) 20.0 [place] % (Auto) 6.9 Eos % (Auto) 5.4 H Baso % (Auto) 0.8 Lymph # (Auto) 1.30 [place] # (Auto) 0.5 Eos # (Auto) 0.4 H Baso # (Auto) 0.1 Abs Immat Gran (auto) 0.03 Absolute Neuts (auto) 4.3 Absolute Nucleated RBC 0.000 Nucleated RBC % 0.0 Platelet Estimate Adequate Hypochromasia 2+ Stomatocytes 1+ Schistocytes None seen Sodium 141 Potassium 4.5 Chloride 106 Carbon Dioxide 30 Anion Gap 5 BUN 62 H Creatinine 3.20 H Estim Creat Clear Calc 18 Estimated GFR 14 L Glucose 94 POC Capillary Glucose 141 H 92 Calcium 9.2 Iron 20 L TIBC 301 % Saturation 7 L Total Bilirubin 0.3 AST 20 ALT 21 Alkaline Phosphatase 175 H Total Protein 7.0 Albumin 3.3 L Urine Color Urine Appearance Urine pH Ur Specific [place] Urine Protein Urine Glucose (UA) Urine Ketones Ur Blood (Man) Urine Nitrate Urine Bilirubin Urine Urobilinogen Add Ur Microanalysis Leukocyte Esterase Rfl Urine RBC Urine WBC Ur Squamous Epith Cells Urine Bacteria Urine Casts Hyaline Casts Urine Mucus Urine Eosinophils
[2024-08-12 11:37] LABS: Glucose Point of Care 110 mg/dl (65-105)
[2024-08-12] MEDS: MUPIROCIN 2% OINT 22 GM TUBE 1 APPLIC TOPICAL ×2 (13:53→17:03)
[2024-08-12] MEDS: metOLazone 5 MG TABLET PO (13:53)
[2024-08-12] MEDS: EPOETIN ALFA-EPBX 10,000 UNITS/ML VIAL 10000 UNITS SUB-Q (13:53)
[2024-08-12 16:29] LABS: Glucose Point of Care 107 mg/dl (65-105)
[2024-08-12] MEDS: CEFEPIME 2 GM in DEXTROSE 5% IN WATER 50 ML IVPB (16:58)
[2024-08-12 20:31] LABS: Glucose Point of Care 122 mg/dl (65-105)
[2024-08-12] MEDS: AMIODARONE HCL 200 MG TABLET PO (21:19)
[2024-08-12] MEDS: FAMOTIDINE 20 MG TABLET PO (21:19)
[2024-08-12] MEDS: DIVALPROEX SODIUM ER 500 MG TAB.24H PO (21:20)
[2024-08-13] VITALS (11 sets, daily range): BP systolic 134–138; BP diastolic 54–60; PULSE 53–76; RESP 16–22; TEMP 35.6–36.4; O2SAT 95–100
[2024-08-13] MEDS: LEVOTHYROXINE SODIUM 100 MCG TABLET PO (05:21)
[2024-08-13 07:05] LABS: Basophils Absolute Auto 0.1 K/mm3 (0.0-0.1); Basophils Percent Auto 0.9 % (0.2-1.2); Eosinophils Absolute Auto 0.4 K/mm3 (0-0.3); Eosinophils Percent Auto 5.9 % (0-4.4); Hematocrit 28.2 % (37.0-47.0); Hemoglobin 8.3 g/dL (12.0-15.0); Immature Granulocyte Absolute 0.02 K/mm3 (0.00-0.031); Immature Granulocyte Percent A 0.3 % (0-0.5); Lymphocytes Absolute Auto 1.39 K/mm3 (0.9-3.2); Lymphocytes Percent Auto 21.8 % (18.3-44.2); Mean Corpuscular HGB Conc 29.4 g/dl (32-36); Mean Corpuscular Hemoglobin 26.9 pg (26-34); Mean Corpuscular Volume 91.6 fl (80-100); Mean Platelet Volume 9.8 fl (7.4-10.4); Monocytes Absolute Auto 0.4 K/mm3 (0.1-0.6); Monocytes Percent Auto 6.7 % (2.6-8.5); Neutrophils Absolute Auto 4.1 K/mm3 (1.3-6.7); Neutrophils Percent Auto 64.4 % (45.5-73.1); Platelet Count Result 301 k/mm3 (150-375); Red Blood Count 3.08 M/mm3 (4.2-5.4); Red Cell Distribution Width 16.9 % (11.5-14.5); White Blood Count 6.4 K/mm3 (4.5-10.0)
[2024-08-13 07:18] LABS: Alanine Aminotransferase 19 U/L (6-35); Albumin Level 3.4 g/dL (3.5-5.1); Alkaline Phosphatase 175 U/L (38-126); Anion Gap 6 mmol/L (4-12); Aspartate Amino Transferase 18 U/L (14-36); Bilirubin,Total 0.4 mg/dL (0.2-1.3); Blood Urea Nitrogen 58 mg/dL (7-17); Calcium 9.4 mg/dL (8.4-10.2); Carbon Dioxide 30 mmol/L (22-30); Chloride 105 mmol/L (98-107); Estimated CRCL calculation 22 ml/min; Estimated Glomerular Filt Rate 18; Glucose 77 mg/dL (65-110); Potassium 4.2 mmol/L (3.4-5.0); Sodium 141 mmol/L (137-145)
[2024-08-13 07:36] LABS: Anisocytosis 1+; Hypochromasia 1+; Platelet Estimate Adequate (Adequate); Schistocytes None Seen
[2024-08-13 07:55] LABS: Glucose Point of Care 76 mg/dl (65-105)
[2024-08-13 08:06] LABS: Vitamin B12 > 1000.0 pg/mL (239-931)
[2024-08-13 08:34] LABS: Glucose Point of Care 98 mg/dl (65-105)
[2024-08-13] MEDS: ISOSORBIDE DINITRATE 5 MG TABLET PO ×2 (08:54→20:00)
[2024-08-13] MEDS: OPTI-GEN TAB 1 TABLET PO ×2 (08:54→20:00)
[2024-08-13] MEDS: allopurinoL 100 MG TABLET PO (08:54)
[2024-08-13] MEDS: FERROUS SULFATE DRIED 142 MG TABCR PO (08:54)
[2024-08-13] MEDS: PRAMIPEXOLE 0.25 MG TABLET PO ×2 (08:55→20:00)
[2024-08-13] MEDS: VENLAFAXINE HCL 25 MG TABLET 50 MG BY MOUTH ×2 (08:55→20:00)
[2024-08-13] MEDS: VENLAFAXINE HCL 75 MG TABLET BY MOUTH ×2 (08:55→19:59)
[2024-08-13] MEDS: GABAPENTIN 100 MG CAPSULE PO ×3 (08:55→18:34)
[2024-08-13] MEDS: CALCIUM/VITAMIN D 500 MG/5 MCG (200 I.U.) TABLET PO (08:55)
[2024-08-13] MEDS: busPIRone HCL 5 MG TABLET 15 MG PO (08:55)
[2024-08-13] MEDS: VITAMIN B COMPLEX CAPSULE 1 CAP PO (08:55)
[2024-08-13] MEDS: PANTOPRAZOLE 40 MG TABLET PO ×2 (08:55→19:59)
[2024-08-13] MEDS: MEMANTINE 10 MG TABLET PO ×2 (08:55→20:00)
[2024-08-13] MEDS: buPROPion HCL XL (24 HR) 150 MG TABCR PO (08:56)
[2024-08-13] MEDS: BUMETANIDE INJ 1 MG/4 ML VIAL IV PUSH (08:56)
[2024-08-13] MEDS: EPOETIN ALFA-EPBX 10,000 UNITS/ML VIAL 10000 UNITS SUB-Q (08:57)
[2024-08-13] MEDS: MUPIROCIN 2% OINT 22 GM TUBE 1 APPLIC TOPICAL ×2 (08:57→18:35)
[2024-08-13] MEDS: INSULIN GLARGINE (*BKC) 100 UNITS/ML 20 UNITS SUB-Q (09:05)
--- NOTE | 2024-08-13 10:22 | P.PNNP_ITS ---
Progress Note: A&P Assessment and Plan (1) ALBERTINA (acute kidney injury): Code(s): N17.9 - Acute kidney failure, unspecified Status: Acute Assessment and Plan: * slow improvement noted * elevated on admission (but close to what it was on last hospital discharge) * worsening noted during this hospitalization * presumably due to need for diuresis * holding diuretics on last hospitalization resulted in only mild imp rovement in renal function (and may have precipitated re-admission) * evaluation noted: * renal u/s normal * CPK slightly elevated (but not likely to affect kidney function) * urine electrolytes prerenal * UA negative for infection by culture * moderate proteinuria * follow trend of repeat labs and UOP (2) Chronic kidney disease, stage IV (severe): Code(s): N18.4 - Chronic kidney disease, stage 4 (severe) Status: Chronic Assessment and Plan: * baseline creatinine fluctuates to extremes -- anywhere from 1.6 - 2.4mg/dl (in the last year) * this causes her to fluctuate between CKD stage 3b and stage 4 * due to her hypertension, diabetes, obstructive sleep apnea, gout, diastolic heart failure + diuretics, and age-related change * this may be a situation where we have to accept a higher creatinine to maintain her volume status... (3) Acute on chronic diastolic heart failure: Code(s): I50.33 - Acute on chronic diastolic (congestive) heart failure Status: Deleted Assessment and Plan: * mild improvement noted * as noted by presentation to the ER: * bilateral LE edema + SOB + orthopnea * BNP: 1560 * admission CXR with nterstitial prominence suggesting pneumonitis or pulmonary interstitial edema. Possible minimal pleural effusions * chest CT with moderate interstitial pulmonary edema. Trace bilateral pleural effusions * on IV diuretics * trial dose of metolazone yesterday (08/12) with reasonable response * will dose again today * Cardiology following * possible right heart catheterization * follow respiratory status (4) Hypertension: Qualifiers: Hypertension type: unspecified Qualified Code(s): I10 - Essential (primary) hypertension Code(s): I10 - Essential (primary) hypertension Status: Chronic Assessment and Plan: * reasonable control at this time * follow trend of hemodynamics (5) Paroxysmal atrial fibrillation: Code(s): I48.0 - Paroxysmal atrial fibrillation Status: Chronic Assessment and Plan: * rate control strategy * on anticoagulation (6) Anemia: Qualifiers: Anemia type: unspecified type Qualified Code(s): D64.9 - Anemia, u nspecified Code(s): D64.9 - Anemia, unspecified Status: Acute Assessment and Plan: * partly related to CKD along with ALBERTINA and acute illness * will dose with Retacrit 3x/week while hospitalized * PRBC transfusion per protocol * follow trend of H/H (7) Type 2 diabetes mellitus: Code(s): E11.9 - Type 2 diabetes mellitus without complications Status: Acute Assessment and Plan: * follow accu-cheks * glycemic control per hospitalists Will continue to follow. Subjective Date/time seen: 08/13/24 10:22 Interval history: Follow-up for acute kidney injury/acute renal failure on chronic kidney disease. Breathing/respiratory status seems relatively stable at the time of my visit; improved/increased urine output noted with trial dose of metolazone; renal function/creatinine better by recent testing as well in spite of increased diuretic use; no apparent distress noted when seen; working with therapy as tolerated. Exam Narrative: General: elderly but WD/WN female in NAD Heart: normal S1 and S2; no rub Lungs: clear anteriorly; decreased at bases with a few crackles Abdomen: soft, nontender, nondistended, positive bowel sounds Extremities: no cyanosis or clubbing; trace edema Skin: no nodules Objective Data Vital Signs Vital Signs: Vital Signs Temp Pulse Resp BP Pulse Ox O2 Del Method 08/13/24 10:00 96.0 F L 56 L 16 134/60 100 08/13/24 08:50 Room Air 08/13/24 12:02 57 L 08/13/24 08:00 58 L 08/13/24 10:05 95 Room Air 08/13/24 06:00 97.6 F 55 L 22 H 138/56 L 97 08/12/24 22:50 57 L 18 95 Autopap 08/13/24 04:00 54 L 08/13/24 00:00 53 L 08/12/24 20:00 89 08/12/24 20:00 60 20 100 Room Air 08/12/24 20:00 97.0 F L 60 20 143/55 H 100 08/12/24 21:19 60 08/12/24 20:44 97.0 F L 58 L 20 143/55 H 100 Intake/Output Intake/Output: Intake & Output 08/10/24 08/11/24 08/12/24 08/13/24 23:59 23:59 23:59 23:59 Intake Total 1476 1916 1520 952 Output Total 227 661 3308 1200 Balance 1325 3537 -052 -943 Meds/Results Medications: Active Medications Generic Name Dose Route Start Last Admin Trade Name Freq PRN Reason Stop Dose Admin Acetaminophen 650 mg 08/06/24 22:10 08/13/24 13:13 Acetaminophen 325 Mg Tablet PO 650 mg Q6H PRN Administration Mild Pain (1-3) or Fever Allopurinol 100 mg 08/07/24 09:00 08/13/24 08:54 Allopurinol 100 Mg Tablet PO 100 mg DAILY NICOLE Administration Amiodarone HCl 200 mg 08/06/24 21:15 08/12/24 21:19 Amiodarone Hcl 200 Mg Tablet PO 200 mg HS NICOLE Administration Apixaban 5 mg 08/06/24 21:20 08/12/24 09:51 Apixaban 5 Mg Tablet PO 5 mg Q12HR NICOLE Administration Bumetanide 1 mg 08/10/24 09:00 08/13/24 08:56 Bumetanide Inj 1 Mg/4 Ml Vial IV PUSH 1 mg DAILY NICOLE Administration Bupropion HCl 150 mg 08/07/24 09:00 08/13/24 08:56 Bupropion Hcl Xl (24 Hr) 150 Mg Tabcr PO 150 mg DAILY NICOLE Administration Buspirone HCl 15 mg 08/07/24 09:00 08/13/24 08:55 Buspirone Hcl 5 Mg Tablet PO 15 mg DAILY NICOLE Administration Calcium Carbonate 500 mg 08/07/24 09:00 08/13/24 08:55 Calcium/Vitamin D 500 Mg/5 Mcg (200 I.U.) Tablet PO 500 mg QAM NICOLE Administration Carvedilol 6.25 mg 08/06/24 21:45 08/09/24 08:41 Carvedilol 6.25 Mg Tablet PO 6.25 mg Q12HR NICOLE Administration Dextrose 12.5 gm 08/06/24 22:10 Dextrose 50% 25 Gm/50 Ml Syringe IV PUSH PRN PRN Hypoglycemia Protocol Divalproex Sodium 500 mg 08/06/24 21:50 08/12/24 21:20 Divalproex Sodium Er 500 Mg Tab.24h PO 500 mg HS NICOLE Administration Epoetin Ajit-epbx 10,000 units 08/13/24 09:00 08/13/24 08:57 Epoetin Ajit-Epbx 10,000 Units/Ml Vial SUB-Q 10,000 units TUTHSA@09 NICOLE Administration Famotidine 20 mg 08/06/24 21:20 08/12/24 21:19 Famotidine 20 Mg Tablet PO 20 mg HS NICOLE Administration Ferrous Sulfate 142 mg 08/08/24 08:00 08/13/24 08:54 Ferrous Sulfate Dried 142 Mg Tabcr PO 142 mg DAILY@0800 NICOLE Administration Gabapentin 100 mg 08/07/24 09:00 08/13/24 13:14 Gabapentin 100 Mg Capsule PO 100 mg TID NICOLE Administration Glucagon 1 mg 08/06/24 22:10 Glucagon For Inj 1 Mg Vial IM PRN PRN Hypoglycemia Protocol Glucose 15 gm 08/06/24 22:10 Glucose Oral Gel 15 Gm Of Glucse In 37.5 Gm Tube PO PRN PRN Hypoglycemia Protocol Dextrose 1,000 mls @ 100 mls/hr 08/06/24 22:10 Dextrose 5% 1,000 Ml IVPB PRN PRN Hypoglycemia Protocol Cefepime HCl 2 gm/ Dextrose 50 mls @ 100 mls/hr 08/12/24 15:00 08/13/24 16:02 IVPB 100 mls/hr Q24H NICOLE Administration Insulin Aspart 3 - 6 units 08/07/24 08:00 08/13/24 11:55 Insulin Aspart (*Bkc) 100 Units/Ml SUB-Q Not Given TIDWM [facility] Protocol Insulin Aspart 1 - 3 units 08/07/24 21:00 08/12/24 21:20 Insulin Aspart (*Bkc) 100 Units/Ml SUB-Q Not Given HS [facility] Protocol Insulin Glargine 20 units 08/13/24 09:00 08/13/24 09:05 Insulin Glargine (*Bkc) 100 Units/Ml SUB-Q 20 units DAILY NICOLE Administration Isosorbide Dinitrate 5 mg 08/09/24 21:00 08/13/24 08:54 Isosorbide Dinitrate 5 Mg Tablet PO 5 mg Q12HR NICOLE Administration Levothyroxine Sodium 100 mcg 08/08/24 06:30 08/13/24 05:21 Levothyroxine Sodium 100 Mcg Tablet PO 100 mcg DAILY@0630 NICOLE Administration Memantine 10 mg 08/06/24 21:15 08/13/24 08:55 Memantine 10 Mg Tablet PO 10 mg Q12HR NICOLE Administration Miscellaneous Information 1 each 08/06/24 00:01 08/12/24 00:03 Evolocumab [Repatha Sureclick] 140 Mg/Ml Pen Injector) Is Nonformulary, Can Patient Bring XX 09/05/24 00:00 Not Given [facility] Miscellaneous Information 1 each 08/06/24 00:01 08/12/24 00:03 (Trospium 20 Mg Tablet) Is Nonformulary, Can Patient Bring From Home? XX 09/05/24 00:00 Not Given [facility] Multivitamins/Minerals 1 tablet 08/07/24 09:00 08/13/24 08:54 Opti-Gen Tab PO 1 tablet Q12HR NICOLE Administration Mupirocin 1 applic 08/07/24 09:00 08/13/24 08:57 Mupirocin 2% Oint 22 Gm Tube TOPICAL 1 applic BID NICOLE Administration Non-Formulary Medication 140 mg 08/06/24 21:15 Evolocumab [Repatha Sureclick] SUB-Q 09/05/24 21:14 Q14D NICOLE Non-Formulary Medication 14 unit 08/06/24 21:15 Insulin Lispro [Humalog Kwikpen Insulin] SUB-Q 09/05/24 21:14 .tidac NICOLE Non-Formulary Medication 20 mg 08/06/24 21:15 Trospium PO 09/05/24 21:14 Q12H NICOLE Nystatin 1 applic 08/06/24 21:12 Nystatin Ointment 15 Gm Tube TOPICAL BID PRN Rash Pantoprazole Sodium 40 mg 08/07/24 09:00 08/13/24 08:55 Pantoprazole 40 Mg Tablet PO 40 mg Q12HR NICOLE Administration Pramipexole Dihydrochloride 0.25 mg 08/06/24 21:30 08/13/24 08:55 Pramipexole 0.25 Mg Tablet PO 0.25 mg Q12HR NICOLE Administration Venlafaxine HCl 75 mg 08/07/24 09:00 08/13/24 08:55 Venlafaxine Hcl 75 Mg Tablet BY MOUTH 75 mg Q12HR NICOLE Administration Venlafaxine HCl 50 mg 08/07/24 09:00 08/13/24 08:55 Venlafaxine Hcl 25 Mg Tablet BY MOUTH 50 mg Q12HR NICOLE Administration Vitamin B Complex 1 cap 08/07/24 09:00 08/13/24 08:55 Vitamin B Complex Capsule PO 1 cap DAILY NICOLE Administration Radiology Results: ITS Impressions Chest CT 08/06/24 15:17 IMPRESSION: Moderate interstitial pulmonary edema. Trace bilateral pleural effusions. Renal Ultrasound 08/09/24 13:35 IMPRESSION: 1. Normal kidneys. No hydronephrosis. Chest X-Ray 08/11/24 13:18 IMPRESSION: 1. Airspace opacities in the lower lung zones with worsening on the left, consistent with atelectasis versus pneumonia. 2. Worsened small pleural effusions. Labs Labs: Laboratory Tests 08/13/24 06:48 08/13/24 06:48 Calcium 9.4 Total Bilirubin 0.4 AST 18 ALT 19 Alkaline Phosphatase 175 H Total Protein 7.0 Albumin 3.4 L Vitamin B12 > 1000.0 H RBC Folate Pending TSH (Reflex) 13.700 H Free T4 1.60 Total T3 0.59 L Microbiology 08/11/24 20:48 Unspecified Urine Culture - Final Klebsiella pneumoniae
[2024-08-13 10:56] LABS: Total Triiodothyronine (T3) 0.59 NG/ML (0.97-1.69)
--- NOTE | 2024-08-13 11:59 | P.PNIM_ITS ---
Progress Note: A&P Assessment and Plan (1) Acute respiratory failure with hypoxia: Code(s): J96.01 - Acute respiratory failure with hypoxia Status: Acute Assessment and Plan: Per chart review, according to EMS her SpO2 was 84% on room air and she was placed on a non-rebreather at 15 L with some improvement. Baseline RA. Likely secondary to CHF exacerbation. - Back to baseline RA - Wean as tolerated for SpO2 > 90 08/11- will order chest xray since oxygen requirements increased 08/12 atelectasis vs pneumonia- will treat as pneumonia in setting increased oxygen demands and confusion. (2) CHF exacerbation: Code(s): I50.9 - Heart failure, unspecified Status: Deleted Assessment and Plan: - Symptoms: shortness of breath with BLE edema and orthopnea She was having some chest discomfort with increased work of breathing earlier -but it is all resolved Pulmonary embolism seems less likely as she is on chronic anticoagulation. - Current medications: Bumex 1 mg IV daily - BNP: 1560 - EKG: without ST segment changes and troponin has been negative x2. - Chest XR: Interstitial prominence suggesting pneumonitis or pulmonary interstitial edema. Possible minimal pleural effusions. Normal heart size. Coronary stent - Chest CT: Moderate interstitial pulmonary edema. Trace bilateral pleural effusions. - Echo 04/08/2024: LVEF 65-70% with grade I diastolic dysfunction - Monitor vital signs, I&Os, BUN/creatinine, daily weights, neuro status and patient is a fall risk - Monitor serum electrolytes, Keep serum Potassium>4 and serum Magnesium>2 and CBC 08/11- will consult cardiology for help with chf/afib mngmnt 08/12 possible rt heart cath tomorrow 08/13- per card. :Change Bumex to I mg b.i.d. and continue metolazone- continue to monitor bmp,i/o (3) Acute kidney injury superimposed on chronic kidney disease: Code(s): N17.9 - Acute kidney failure, unspecified; N18.9 - Chronic kidney disease, unspecified Status: Acute Assessment and Plan: Per nephrology note on 07/29, baseline creatinine fluctuates to extremes -- anywhere from 1.6 - 2.4mg/dl (in the last year) - BUN/Cr 53/3.7 on am labs - Worsening Cr likely related to patients ongoing diuresis for CHF exacerbation (Bumex made daily instead of BID) vs overcontrol of her BP per nephrology note consider having BP range closer to 150s systolic - Monitor renal function and I/O - Avoid nephrotoxic medications - Renally dose medications - Nephrology consulted, appreciate recommendations if stable -anticipate discharge in the next few days (4) Anemia: Qualifiers: Anemia type: unspecified type Qualified Code(s): D64.9 - Anemia, unspecified Code(s): D64.9 - Anemia, unspecified Status: Acute Assessment and Plan: Iron low -started on iron supplementation - f/u with pcp in 2-3 month for recheck (5) Coronary artery disease: Code(s): I25.10 - Atherosclerotic heart disease of [place] coronary artery without angina pectoris Status: Acute Assessment and Plan: Chronic, continue home medications. 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 Initiate sliding scale insulin, Accu-Cheks, and hypoglycemic protocol. will decrease lantus this am- 20 units (from 40) as few lower readings in am, protein snacks at hs-monitor (7) Obstructive sleep apnea on CPAP: Code(s): G47.33 - Obstructive sleep apnea (adult) (pediatric); Z99.89 - Dependence on other enabling machines and devices Status: Chronic Assessment and Plan: Does not use CPAP at home. ABG ordered. (8) Hypothyroidism (acquired): Code(s): E03.9 - Hypothyroidism, unspecified Status: Acute Assessment [place]: [place] [id number] currently on 75 mcg levothyroxine Will increase to 100 mcg on 08/07 and will need TSH recheck in 6-8 weeks as an outtpt- mid to end of October (9) Urinary tract infection: Code(s): N39.0 - Urinary tract infection, site not specified Status: Acute Assessment and Plan: ua was collected yesterday due to increased confusion. start cefepime to cover uti/pneumonia monitor for ua culture results to narrow antibiotics down pharmacy to renally dose (10) Altered mental status: Qualifiers: Altered mental status type: unspecified Qualified Code(s): R41.82 - Altered mental status, unspecified Code(s): R41.82 - Altered mental status, unspecified Status: Resolved Assessment and Plan: ua was collected,chest xray done to rule out any infectious couses - son states that pt has problems with normal activities like eating-and has episodes of confusion, ?blanking out -will order ct head and consult neurology for eval Time Spent With Patient Time with patient: Greater than 35 minutes Subjective Date/time seen: 08/13/24 11:59 Interval history: seen and examined. cardiology following. nephrology following. weak but eating breakfast this am. working with pt. still agreable to go to rehab. she is off oxygen -resp statu stable. Review of Systems Review of Systems: 12 systems were reviewed and are negativ e except for as per HPI. Exam Narrative: AF HR 65 RR 20 SPO2 99 BP 110/50 General: female in no acute respiratory distress who is nontoxic appearing, lying semi recumbent in bed. HEENT: Normocephalic. Atraumatic. Extraocular movement intact. Sclera clear and anicteric. No facial asymmetry. Chest: Lungs are diminished to auscultation bilaterally with lower base crackles. No wheezes. CV: Heart was regular rate and rhythm. S1-S2. No murmurs, gallops, or rubs. Abd: Abdomen was soft. Nontender. Nondistended. Positive bowel sounds. No organomegaly or masses. Ext: No clubbing, cyanosis, or edema. 2+ DP pulses bilaterally. Neuro: Patient is alert and oriented x3 (person, place, year). Cranial nerves 2- 12 are intact. Speech is clear. Objective Data Vital Signs Vital Signs: Vital Signs - 24 hr 08/12/24 14:00 08/12/24 12:02 08/12/24 16:02 Temperature 98.2 F Pulse Rate 68 52 L 55 L Respiratory Rate 18 Blood Pressure 123/56 L Pulse Oximetry 100 Oxygen Delivery 08/12/24 20:44 08/12/24 21:19 08/12/24 20:00 Temperature 97.0 F L 97.0 F L Pulse Rate 58 L 60 60 Respiratory Rate 20 20 Blood Pressure 143/55 H 143/55 H Pulse Oximetry 100 100 Oxygen Delivery 08/12/24 20:00 08/12/24 20:00 08/13/24 00:00 Temperature Pulse Rate 60 89 53 L Respiratory Rate 20 Blood Pressure Pulse Oximetry 100 Oxygen Delivery Room Air 08/13/24 04:00 08/12/24 22:50 08/13/24 06:00 Temperature 97.6 F Pulse Rate 54 L 57 L 55 L Respiratory Rate 18 22 H Blood Pressure 138/56 L Pulse Oximetry 95 97 Oxygen Delivery Autopap 08/13/24 10:05 08/13/24 08:00 Temperature Pulse Rate 58 L Respiratory Rate Blood Pressure Pulse Oximetry 95 Oxygen Delivery Room Air Intake/Output Intake/Output: Intake & Output 08/10/24 08/11/24 08/12/24 08/13/24 23:59 23:59 23:59 23:59 Intake Total 1476 1916 1520 490 Output Total 545 636 5662 700 Balance 1325 1166 -330 -210 Meds/Results Medications: Active Medications Generic Name Dose Route Start Last Admin Trade Name Freq PRN Reason Stop Dose Admin Acetaminophen 650 mg 08/06/24 22:10 08/09/24 08:40 Acetaminophen 325 Mg Tablet PO 650 mg Q6H PRN Administration Mild Pain (1-3) or Fever Allopurinol 100 mg 08/07/24 09:00 08/13/24 08:54 Allopurinol 100 Mg Tablet PO 100 mg DAILY NICOLE Administration Amiodarone HCl 200 mg 08/06/24 21:15 08/12/24 21:19 Amiodarone Hcl 200 Mg Tablet PO 200 mg HS NICOLE Administration Apixaban 5 mg 08/06/24 21:20 08/12/24 09:51 Apixaban 5 Mg Tablet PO 5 mg Q12HR NICOLE Administration Bumetanide 1 mg 08/10/24 09:00 08/13/24 08:56 Bumetanide Inj 1 Mg/4 Ml Vial IV PUSH 1 mg DAILY NICOLE Administration Bupropion HCl 150 mg 08/07/24 09:00 08/13/24 08:56 Bupropion Hcl Xl (24 Hr) 150 Mg Tabcr PO 150 mg DAILY NICOLE Administration Buspirone HCl 15 mg 08/07/24 09:00 08/13/24 08:55 Buspirone Hcl 5 Mg Tablet PO 15 mg DAILY NICOLE Administration Calcium Carbonate 500 mg 08/07/24 09:00 08/13/24 08:55 Calcium/Vitamin D 500 Mg/5 Mcg (200 I.U.) Tablet PO 500 mg QAM NICOLE Administration Carvedilol 6.25 mg 08/06/24 21:45 08/09/24 08:41 Carvedilol 6.25 Mg Tablet PO 6.25 mg Q12HR NICOLE Administration Dextrose 12.5 gm 08/06/24 22:10 Dextrose 50% 25 Gm/50 Ml Syringe IV PUSH PRN PRN Hypoglycemia Protocol Divalproex Sodium 500 mg 08/06/24 21:50 08/12/24 21:20 Divalproex Sodium Er 500 Mg Tab.24h PO 500 mg HS NICOLE Administration Epoetin Ajit-epbx 10,000 units 08/13/24 09:00 08/13/24 08:57 Epoetin Ajit-Epbx 10,000 Units/Ml Vial SUB-Q 10,000 units TUTHSA@09 NICOLE Administration Famotidine 20 mg 08/06/24 21:20 08/12/24 21:19 Famotidine 20 Mg Tablet PO 20 mg HS NICOLE Administration Ferrous Sulfate 142 mg 08/08/24 08:00 08/13/24 08:54 Ferrous Sulfate Dried 142 Mg Tabcr PO 142 mg DAILY@0800 NICOLE Administration Gabapentin 100 mg 08/07/24 09:00 08/13/24 08:55 Gabapentin 100 Mg Capsule PO 100 mg TID NICOLE Administration Glucagon 1 mg 08/06/24 22:10 Glucagon For Inj 1 Mg Vial IM PRN PRN Hypoglycemia Protocol Glucose 15 gm 08/06/24 22:10 Glucose Oral Gel 15 Gm Of Glucse In 37.5 Gm Tube PO PRN PRN Hypoglycemia Protocol Dextrose 1,000 mls @ 100 mls/hr 08/06/24 22:10 Dextrose 5% 1,000 Ml IVPB PRN PRN Hypoglycemia Protocol Cefepime HCl 2 gm/ Dextrose 50 mls @ 100 mls/hr 08/12/24 15:00 08/12/24 17:28 IVPB Infused Q24H NICOLE Infusion Insulin Aspart 3 - 6 units 08/07/24 08:00 08/13/24 11:55 Insulin Aspart (*Bkc) 100 Units/Ml SUB-Q Not Given TIDWM [facility] Protocol Insulin Aspart 1 - 3 units 08/07/24 21:00 08/12/24 21:20 Insulin Aspart (*Bkc) 100 Units/Ml SUB-Q Not Given HS [facility] Protocol Insulin Glargine 20 units 08/13/24 09:00 08/13/24 09:05 Insulin Glargine (*Bkc) 100 Units/Ml SUB-Q 20 units DAILY NICOLE Administration Isosorbide Dinitrate 5 mg 08/09/24 21:00 08/13/24 08:54 Isosorbide Dinitrate 5 Mg Tablet PO 5 mg Q12HR NICOLE Administration Levothyroxine Sodium 100 mcg 08/08/24 06:30 08/13/24 05:21 Levothyroxine Sodium 100 Mcg Tablet PO 100 mcg DAILY@0630 NICOLE Administration Memantine 10 mg 08/06/24 21:15 08/13/24 08:55 Memantine 10 Mg Tablet PO 10 mg Q12HR NICOLE Administration Miscellaneous Information 1 each 08/06/24 00:01 08/12/24 00:03 Evolocumab [Repatha Sureclick] 140 Mg/Ml Pen Injector) Is Nonformulary, Can Patient Bring XX 09/05/24 00:00 Not Given CL[facility]IFY [facility] Miscellaneous Information 1 each 08/06/24 00:01 08/12/24 00:03 (Trospium 20 Mg Tablet) Is Nonformulary, Can Patient Bring From Home? XX 09/05/24 00:00 Not Given [facility] Multivitamins/Minerals 1 tablet 08/07/24 09:00 08/13/24 08:54 Opti-Gen Tab PO 1 tablet Q12HR [facility] Administration Mupirocin 1 applic 08/07/24 09:00 08/13/24 08:57 Mupirocin 2% Oint 22 Gm Tube TOPICAL 1 applic BID NICOLE Administration Non-Formulary Medication 140 mg 08/06/24 21:15 Evolocumab [Repatha Sureclick] SUB-Q 09/05/24 21:14 Q14D NICOLE Non-Formulary Medication 14 unit 08/06/24 21:15 Insulin Lispro [Humalog Kwikpen Insulin] SUB-Q 09/05/24 21:14 .tidac NICOLE Non-Formulary Medication 20 mg 08/06/24 21:15 Trospium PO 09/05/24 21:14 Q12H NICOLE Nystatin 1 applic 08/06/24 21:12 Nystatin Ointment 15 Gm Tube TOPICAL BID PRN Rash Pantoprazole Sodium 40 mg 08/07/24 09:00 08/13/24 08:55 Pantoprazole 40 Mg Tablet PO 40 mg Q12HR NICOLE Administration Pramipexole Dihydrochloride 0.25 mg 08/06/24 21:30 08/13/24 08:55 Pramipexole 0.25 Mg Tablet PO 0.25 mg Q12HR NICOLE Administration Venlafaxine HCl 75 mg 08/07/24 09:00 08/13/24 08:55 Venlafaxine Hcl 75 Mg Tablet BY MOUTH 75 mg Q12HR NICOLE Administration Venlafaxine HCl 50 mg 08/07/24 09:00 08/13/24 08:55 Venlafaxine Hcl 25 Mg Tablet BY MOUTH 50 mg Q12HR NICOLE Administration Vitamin B Complex 1 cap 08/07/24 09:00 08/13/24 08:55 Vitamin B Complex Capsule PO 1 cap DAILY NICOLE Administration Radiology Results: ITS Impressions Chest CT 08/06/24 15:17 IMPRESSION: Moderate interstitial pulmonary edema. Trace bilateral pleural effusions. Renal Ultrasound 08/09/24 13:35 IMPRESSION: 1. Normal kidneys. No hydronephrosis. Chest X-Ray 08/11/24 13:18 IMPRESSION: 1. Airspace opacities in the lower lung zones with worsening on the left, consistent with atelectasis versus pneumonia. 2. Worsened small pleural effusions. Labs Labs: Laboratory Results - last 24 hr 08/12/24 08/12/24 08/13/24 16:26 20:09 06:48 WBC 6.4 RBC 3.08 L Hgb 8.3 L Hct 28.2 L MCV 91.6 MCH 26.9 MCHC 29.4 L RDW 16.9 H Plt Count 301 MPV 9.8 Immature Gran % (Auto) 0.3 Neut % (Auto) 64.4 Lymph % (Auto) 21.8 [place] % (Auto) 6.7 Eos % (Auto) 5.9 H Baso % (Auto) 0.9 Lymph # (Auto) 1.39 [place] # (Auto) 0.4 Eos # (Auto) 0.4 H Baso # (Auto) 0.1 Abs Immat Gran (auto) 0.02 Absolute Neuts (auto) 4.1 Absolute Nucleated RBC 0.000 Nucleated RBC % 0.0 Platelet Estimate Adequate Hypochromasia 1+ Anisocytosis 1+ Schistocytes None seen Sodium 141 Potassium 4.2 Chloride 105 Carbon Dioxide 30 Anion Gap 6 BUN 58 H Creatinine 2.60 H Estim Creat Clear Calc 22 Estimated GFR 18 L Glucose 77 POC Capillary Glucose 107 H 122 H Calcium 9.4 Total Bilirubin 0.4 AST 18 ALT 19 Alkaline Phosphatase 175 H Total Protein 7.0 Albumin 3.4 L Vitamin B12 > 1000.0 H TSH (Reflex) 13.700 H Free T4 1.60 Total T3 0.59 L 08/13/24 08/13/24 07:51 08:31 WBC RBC Hgb Hct MCV MCH MCHC RDW Plt Count MPV Immature Gran % (Auto) Neut % (Auto) Lymph % (Auto) [place] % (Auto) Eos % (Auto) Baso % (Auto) Lymph # (Auto) [place] # (Auto) Eos # (Auto) Baso # (Auto) Abs Immat Gran (auto) Absolute Neuts (auto) Absolute Nucleated RBC Nucleated RBC % Platelet Estimate Hypochromasia Anisocytosis Schistocytes Sodium Potassium Chloride Carbon Dioxide Anion Gap BUN Creatinine Estim Creat Clear Calc Estimated GFR Glucose POC Capillary Glucose 76 98 Calcium Total Bilirubin AST ALT Alkaline Phosphatase Total Protein Albumin Vitamin B12 TSH (Reflex) Free T4 Total T3 Quality VTE Prophylaxis VTE prophylaxis: pharmacologic ordered (on apixaban)
[2024-08-13 12:01] LABS: Glucose Point of Care 115 mg/dl (65-105)
[2024-08-13] MEDS: ACETAMINOPHEN 325 MG TABLET 650 MG PO (13:13)
--- NOTE | 2024-08-13 13:44 | PM.PNCARD ---
Progress Note: A&P Assessment and Plan (1) Acute on chronic heart failure with preserved ejection fraction (HFpEF, >= 50%): Code(s): I50.33 - Acute on chronic diastolic (congestive) heart failure Status: Acute Assessment and Plan: Change Bumex to I mg b.i.d. and continue metolazone, follow-up kidney function electrolytes (2) Acute kidney injury superimposed on chronic kidney disease: Code(s): N17.9 - Acute kidney failure, unspecified; N18.9 - Chronic kidney disease, unspecified Status: Acute Assessment and Plan: Nephrology consulted and following along. (3) Acute respiratory failure with hypoxia: Code(s): J96.01 - Acute respiratory failure with hypoxia Status: Acute Assessment and Plan: Wean off oxygen as tolerated. (4) Coronary artery disease: Code(s): I25.10 - Atherosclerotic heart disease of [place] coronary artery without angina pectoris Status: Acute Assessment and Plan: Stable. On Repatha at home. (5) Paroxysmal atrial fibrillation: Code(s): I48.0 - Paroxysmal atrial fibrillation Status: Chronic Assessment and Plan: Rate controlled. Continue Amiodarone, Coreg. Resume Eliquis tomorrow if she continues to be stable (6) Mixed hyperlipidemia: Code(s): E78.2 - Mixed hyperlipidemia Status: Acute Assessment and Plan: On Repatha at home. (7) Benign hypertension with chronic kidney disease: Code(s): I12.9 - Hypertensive chronic kidney disease with stage 1 through stage 4 chronic kidney disease, or unspecified chronic kidney disease Status: Acute Assessment and Plan: Stable, continue with Isordil, Bumex, Coreg. (8) Diabetes mellitus with chronic kidney disease: Qualifiers: Diabetes mellitus type: type 2 Diabetes mellitus intermediate manager insulin use: without intermediate manager use Chronic kidney disease stage: stage 3 (moderate) Chronic kidney disease stage 3 subtype: stage 3b (GFR 30-44) Qualified Code(s): E11.22 - Type 2 diabetes mellitus with diabetic chronic kidney disease; N18.32 - Chronic kidney disease, stage 3b Code(s): E11.22 - Type 2 diabetes mellitus with diabetic chronic kidney disease Status: Acute Assessment and Plan: Management as per Hospitalist. Plan Follow-up was hospitalist Subjective Date/time seen: 08/13/24 13:44 Interval history: no acute events Tele: Paroxysmal a fib Review of Systems Review of Systems: All systems reviewed & are unremarkable except as noted in HPI and below Exam Const: General: no acute distress HENMT: Mouth: Yes moist mucous membranes Eyes: General: appearance normal, both eyes and all related structures Sclera: sclerae normal Resp: Effort & Inspection: normal respiratory effort Other: Decreased breath sounds. On supplemental oxygen. Cardio: Rhythm: abnormal rhythm irregularly irregular Other: + Bilateral lower extremity edema Skin: General skin exam: normal color Neuro: Speech: normal speech Psych: Mental Status: mental status grossly normal Affect: normal affect Objective Data Vital Signs Vital Signs: Vital Signs - 24 hr 08/12/24 14:00 08/12/24 16:02 08/12/24 20:44 Temperature 36.8 C 36.1 C L Pulse Rate 68 55 L 58 L Respiratory Rate 18 20 Blood Pressure 123/56 L 143/55 H Pulse Oximetry 100 100 Oxygen Delivery 08/12/24 21:19 08/12/24 20:00 08/12/24 20:00 Temperature 36.1 C L Pulse Rate 60 60 60 Respiratory Rate 20 20 Blood Pressure 143/55 H Pulse Oximetry 100 100 Oxygen Delivery Room Air 08/12/24 20:00 08/13/24 00:00 08/13/24 04:00 Temperature Pulse Rate 89 53 L 54 L Respiratory Rate Blood Pressure Pulse Oximetry Oxygen Delivery 08/12/24 22:50 08/13/24 06:00 08/13/24 10:05 Temperature 36.4 C Pulse Rate 57 L 55 L Respiratory Rate 18 22 H Blood Pressure 138/56 L Pulse Oximetry 95 97 95 Oxygen Delivery Autopap Room Air 08/13/24 08:00 Temperature Pulse Rate 58 L Respiratory Rate Blood Pressure Pulse Oximetry Oxygen Delivery Intake/Output Intake/Output: Intake & Output 08/10/24 08/11/24 08/12/24 08/13/24 23:59 23:59 23:59 23:59 Intake Total 1476 1916 1520 730 Output Total 105 780 1973 1200 Balance 1325 1166 -330 -508 Meds/Results Medications: Active Medications Generic Name Dose Route Start Last Admin Trade Name Freq PRN Reason Stop Dose Admin Acetaminophen 650 mg 08/06/24 22:10 08/13/24 13:13 Acetaminophen 325 Mg Tablet PO 650 mg Q6H PRN Administration Mild Pain (1-3) or Fever Allopurinol 100 mg 08/07/24 09:00 08/13/24 08:54 Allopurinol 100 Mg Tablet PO 100 mg DAILY NICOLE Administration Amiodarone HCl 200 mg 08/06/24 21:15 08/12/24 21:19 Amiodarone Hcl 200 Mg Tablet PO 200 mg HS NICOLE Administration Apixaban 5 mg 08/06/24 21:20 08/12/24 09:51 Apixaban 5 Mg Tablet PO 5 mg Q12HR NICOLE Administration Bumetanide 1 mg 08/10/24 09:00 08/13/24 08:56 Bumetanide Inj 1 Mg/4 Ml Vial IV PUSH 1 mg DAILY NICOLE Administration Bupropion HCl 150 mg 08/07/24 09:00 08/13/24 08:56 Bupropion Hcl Xl (24 Hr) 150 Mg Tabcr PO 150 mg DAILY NICOLE Administration Buspirone HCl 15 mg 08/07/24 09:00 08/13/24 08:55 Buspirone Hcl 5 Mg Tablet PO 15 mg DAILY NICOLE Administration Calcium Carbonate 500 mg 08/07/24 09:00 08/13/24 08:55 Calcium/Vitamin D 500 Mg/5 Mcg (200 I.U.) Tablet PO 500 mg QAM NICOLE Administration Carvedilol 6.25 mg 08/06/24 21:45 08/09/24 08:41 Carvedilol 6.25 Mg Tablet PO 6.25 mg Q12HR NICOLE Administration Dextrose 12.5 gm 08/06/24 22:10 Dextrose 50% 25 Gm/50 Ml Syringe IV PUSH PRN PRN Hypoglycemia Protocol Divalproex Sodium 500 mg 08/06/24 21:50 08/12/24 21:20 Divalproex Sodium Er 500 Mg Tab.24h PO 500 mg HS NICOLE Administration Epoetin Ajit-epbx 10,000 units 08/13/24 09:00 08/13/24 08:57 Epoetin Ajit-Epbx 10,000 Units/Ml Vial SUB-Q 10,000 units TUTHSA@09 NICOLE Administration Famotidine 20 mg 08/06/24 21:20 08/12/24 21:19 Famotidine 20 Mg Tablet PO 20 mg HS NICOLE Administration Ferrous Sulfate 142 mg 08/08/24 08:00 08/13/24 08:54 Ferrous Sulfate Dried 142 Mg Tabcr PO 142 mg DAILY@0800 NICOLE Administration Gabapentin 100 mg 08/07/24 09:00 08/13/24 13:14 Gabapentin 100 Mg Capsule PO 100 mg TID NICOLE Administration Glucagon 1 mg 08/06/24 22:10 Glucagon For Inj 1 Mg Vial IM PRN PRN Hypoglycemia Protocol Glucose 15 gm 08/06/24 22:10 Glucose Oral Gel 15 Gm Of Glucse In 37.5 Gm Tube PO PRN PRN Hypoglycemia Protocol Dextrose 1,000 mls @ 100 mls/hr 08/06/24 22:10 Dextrose 5% 1,000 Ml IVPB PRN PRN Hypoglycemia Protocol Cefepime HCl 2 gm/ Dextrose 50 mls @ 100 mls/hr 08/12/24 15:00 08/12/24 17:28 IVPB Infused Q24H NICOLE Infusion Insulin Aspart 3 - 6 units 08/07/24 08:00 08/13/24 11:55 Insulin Aspart (*Bkc) 100 Units/Ml SUB-Q Not Given TIDWM [facility] Protocol Insulin Aspart 1 - 3 units 08/07/24 21:00 08/12/24 21:20 Insulin Aspart (*Bkc) 100 Units/Ml SUB-Q Not Given HS [facility] Protocol Insulin Glargine 20 units 08/13/24 09:00 08/13/24 09:05 Insulin Glargine (*Bkc) 100 Units/Ml SUB-Q 20 units DAILY NICOLE Administration Isosorbide Dinitrate 5 mg 08/09/24 21:00 08/13/24 08:54 Isosorbide Dinitrate 5 Mg Tablet PO 5 mg Q12HR [facility] Administration Levothyroxine Sodium 100 mcg 08/08/24 06:30 08/13/24 05:21 Levothyroxine Sodium 100 Mcg Tablet PO 100 mcg DAILY@0630 [facility] Administration Memantine 10 mg 08/06/24 21:15 08/13/24 08:55 Memantine 10 Mg Tablet PO 10 mg Q12HR NICOLE Administration Miscellaneous Information 1 each 08/06/24 00:01 08/12/24 00:03 Evolocumab [Repatha Sureclick] 140 Mg/Ml Pen Injector) Is Nonformulary, Can Patient Bring XX 09/05/24 00:00 Not Given [facility] Miscellaneous Information 1 each 08/06/24 00:01 08/12/24 00:03 (Trospium 20 Mg Tablet) Is Nonformulary, Can Patient Bring From Home? XX 09/05/24 00:00 Not Given [facility] Multivitamins/Minerals 1 tablet 08/07/24 09:00 08/13/24 08:54 Opti-Gen Tab PO 1 tablet Q12HR NICOLE Administration Mupirocin 1 applic 08/07/24 09:00 08/13/24 08:57 Mupirocin 2% Oint 22 Gm Tube TOPICAL 1 applic BID NICOLE Administration Non-Formulary Medication 140 mg 08/06/24 21:15 Evolocumab [Repatha Sureclick] SUB-Q 09/05/24 21:14 Q14D NICOLE Non-Formulary Medication 14 unit 08/06/24 21:15 Insulin Lispro [Humalog Kwikpen Insulin] SUB-Q 09/05/24 21:14 .tidac NICOLE Non-Formulary Medication 20 mg 08/06/24 21:15 Trospium PO 09/05/24 21:14 Q12H NICOLE Nystatin 1 applic 08/06/24 21:12 Nystatin Ointment 15 Gm Tube TOPICAL BID PRN Rash Pantoprazole Sodium 40 mg 08/07/24 09:00 08/13/24 08:55 Pantoprazole 40 Mg Tablet PO 40 mg Q12HR NICOLE Administration Pramipexole Dihydrochloride 0.25 mg 08/06/24 21:30 08/13/24 08:55 Pramipexole 0.25 Mg Tablet PO 0.25 mg Q12HR NICOLE Administration Venlafaxine HCl 75 mg 08/07/24 09:00 08/13/24 08:55 Venlafaxine Hcl 75 Mg Tablet BY MOUTH 75 mg Q12HR NICOLE Administration Venlafaxine HCl 50 mg 08/07/24 09:00 08/13/24 08:55 Venlafaxine Hcl 25 Mg Tablet BY MOUTH 50 mg Q12HR NICOLE Administration Vitamin B Complex 1 cap 08/07/24 09:00 08/13/24 08:55 Vitamin B Complex Capsule PO 1 cap DAILY NICOLE Administration Radiology Results: ITS Impressions Chest CT 08/06/24 15:17 IMPRESSION: Moderate interstitial pulmonary edema. Trace bilateral pleural effusions. Renal Ultrasound 08/09/24 13:35 IMPRESSION: 1. Normal kidneys. No hydronephrosis. Chest X-Ray 08/11/24 13:18 IMPRESSION: 1. Airspace opacities in the lower lung zones with worsening on the left, consistent with atelectasis versus pneumonia. 2. Worsened small pleural effusions. Labs Labs: Laboratory Results - last 24 hr 08/12/24 08/12/24 08/13/24 16:26 20:09 06:48 WBC 6.4 RBC 3.08 L Hgb 8.3 L Hct 28.2 L MCV 91.6 MCH 26.9 MCHC 29.4 L RDW 16.9 H Plt Count 301 MPV 9.8 Immature Gran % (Auto) 0.3 Neut % (Auto) 64.4 Lymph % (Auto) 21.8 [place] % (Auto) 6.7 Eos % (Auto) 5.9 H Baso % (Auto) 0.9 Lymph # (Auto) 1.39 [place] # (Auto) 0.4 Eos # (Auto) 0.4 H Baso # (Auto) 0.1 Abs Immat Gran (auto) 0.02 Absolute Neuts (auto) 4.1 Absolute Nucleated RBC 0.000 Nucleated RBC % 0.0 Platelet Estimate Adequate Hypochromasia 1+ Anisocytosis 1+ Schistocytes None seen Sodium 141 Potassium 4.2 Chloride 105 Carbon Dioxide 30 Anion Gap 6 BUN 58 H Creatinine 2.60 H Estim Creat Clear Calc 22 Estimated GFR 18 L Glucose 77 POC Capillary Glucose 107 H 122 H Calcium 9.4 Total Bilirubin 0.4 AST 18 ALT 19 Alkaline Phosphatase 175 H Total Protein 7.0 Albumin 3.4 L Vitamin B12 > 1000.0 H TSH (Reflex) 13.700 H Free T4 1.60 Total T3 0.59 L 08/13/24 08/13/24 08/13/24 07:51 08:31 11:53 WBC RBC Hgb Hct MCV MCH MCHC RDW Plt Count MPV Immature Gran % (Auto) Neut % (Auto) Lymph % (Auto) [place] % (Auto) Eos % (Auto) Baso % (Auto) Lymph # (Auto) [place] # (Auto) Eos # (Auto) Baso # (Auto) Abs Immat Gran (auto) Absolute Neuts (auto) Absolute Nucleated RBC Nucleated RBC % Platelet Estimate Hypochromasia Anisocytosis Schistocytes Sodium Potassium Chloride Carbon Dioxide Anion Gap BUN Creatinine Estim Creat Clear Calc Estimated GFR Glucose POC Capillary Glucose 76 98 115 H Calcium Total Bilirubin AST ALT Alkaline Phosphatase Total Protein Albumin Vitamin B12 TSH (Reflex) Free T4 Total T3
[2024-08-13] MEDS: CEFEPIME 2 GM in DEXTROSE 5% IN WATER 50 ML IVPB (16:02)
[2024-08-13] MEDS: metOLazone 5 MG TABLET PO (16:04)
[2024-08-13 16:44] LABS: Glucose Point of Care 160 mg/dl (65-105)
[2024-08-13] MEDS: FAMOTIDINE 20 MG TABLET PO (19:59)
[2024-08-13] MEDS: DIVALPROEX SODIUM ER 500 MG TAB.24H PO (20:00)
[2024-08-13] MEDS: AMIODARONE HCL 200 MG TABLET PO (20:01)
[2024-08-13 20:34] LABS: Glucose Point of Care 140 mg/dl (65-105)
[2024-08-14] VITALS (18 sets, daily range): BP systolic 106–146; BP diastolic 71–87; PULSE 55–115; RESP 12–26; TEMP 36.1–36.5; O2SAT 90–100
--- NOTE | 2024-08-14 03:58 | ECG_ITS ---
Test Date: 2024-08-14 04:14:39 Measurements Intervals [place] Rate: 115 P: 0 NV: 0 QRS: 75 QRSD: 99 T: -40 QT: 360 QTc: 499 Interpretive Statements ATRIAL FIBRILLATION WITH RAPID VENTRICULAR RESPONSE NONSPECIFIC ST & T-WAVE ABNORMALITY Compared to ECG 08/09/2024 14:06:55 T-wave abnormality now present atrial fibrillation has replaced sinus bradycardia Electronically Signed On 08-14-2024 14:57:41 [employer] by Christiano Mai M.D.
[2024-08-14 04:07] LABS: Glucose Point of Care 81 mg/dl (65-105)
[2024-08-14] MEDS: METOPROLOL TARTRATE INJ 5 MG/5 ML VIAL IV PUSH (05:29)
[2024-08-14] MEDS: LEVOTHYROXINE SODIUM 100 MCG TABLET PO (05:30)
[2024-08-14 07:40] LABS: Basophils Absolute Auto 0.1 K/mm3 (0.0-0.1); Eosinophils Absolute Auto 0.4 K/mm3 (0-0.3); Eosinophils Percent Auto 5.7 % (0-4.4); Hemoglobin 8.5 g/dL (12.0-15.0); Immature Granulocyte Absolute 0.03 K/mm3 (0.00-0.031); Immature Granulocyte Percent A 0.4 % (0-0.5); Lymphocytes Absolute Auto 1.59 K/mm3 (0.9-3.2); Lymphocytes Percent Auto 23.4 % (18.3-44.2); Mean Corpuscular HGB Conc 29.3 g/dl (32-36); Mean Corpuscular Hemoglobin 26.6 pg (26-34); Mean Corpuscular Volume 90.9 fl (80-100); Mean Platelet Volume 9.8 fl (7.4-10.4); Monocytes Absolute Auto 0.4 K/mm3 (0.1-0.6); Monocytes Percent Auto 5.9 % (2.6-8.5); Neutrophils Absolute Auto 4.3 K/mm3 (1.3-6.7); Neutrophils Percent Auto 63.6 % (45.5-73.1); Platelet Count Result 336 k/mm3 (150-375); Red Blood Count 3.19 M/mm3 (4.2-5.4); Red Cell Distribution Width 16.8 % (11.5-14.5); White Blood Count 6.8 K/mm3 (4.5-10.0)
[2024-08-14 07:43] LABS: Alanine Aminotransferase 17 U/L (6-35); Albumin Level 3.4 g/dL (3.5-5.1); Alkaline Phosphatase 167 U/L (38-126); Anion Gap 3 mmol/L (4-12); Aspartate Amino Transferase 20 U/L (14-36); Bilirubin,Total 0.3 mg/dL (0.2-1.3); Blood Urea Nitrogen 48 mg/dL (7-17); Calcium 9.2 mg/dL (8.4-10.2); Carbon Dioxide 32 mmol/L (22-30); Chloride 104 mmol/L (98-107); Estimated CRCL calculation 28 ml/min; Estimated Glomerular Filt Rate 24; Glucose 67 mg/dL (65-110); Magnesium 2.4 mg/dL (1.6-2.3); Sodium 139 mmol/L (137-145)
[2024-08-14 08:16] LABS: Glucose Point of Care 65 mg/dl (65-105)
[2024-08-14] MEDS: buPROPion HCL XL (24 HR) 150 MG TABCR PO (09:11)
[2024-08-14] MEDS: MEMANTINE 10 MG TABLET PO ×2 (09:11→21:14)
[2024-08-14] MEDS: CALCIUM/VITAMIN D 500 MG/5 MCG (200 I.U.) TABLET PO (09:12)
[2024-08-14] MEDS: PRAMIPEXOLE 0.25 MG TABLET PO ×2 (09:12→21:13)
[2024-08-14] MEDS: allopurinoL 100 MG TABLET PO (09:12)
[2024-08-14] MEDS: PANTOPRAZOLE 40 MG TABLET PO ×2 (09:12→21:14)
[2024-08-14] MEDS: busPIRone HCL 5 MG TABLET 15 MG PO (09:14)
[2024-08-14] MEDS: carvediloL 6.25 MG TABLET PO ×2 (09:14→21:13)
[2024-08-14] MEDS: ISOSORBIDE DINITRATE 5 MG TABLET PO ×2 (09:15→21:13)
[2024-08-14] MEDS: VENLAFAXINE HCL 75 MG TABLET BY MOUTH ×2 (09:15→21:14)
[2024-08-14] MEDS: GABAPENTIN 100 MG CAPSULE PO ×3 (09:15→17:59)
[2024-08-14] MEDS: FERROUS SULFATE DRIED 142 MG TABCR PO (09:15)
[2024-08-14] MEDS: VITAMIN B COMPLEX CAPSULE 1 CAP PO (09:15)
[2024-08-14] MEDS: OPTI-GEN TAB 1 TABLET PO ×2 (09:15→21:13)
[2024-08-14] MEDS: VENLAFAXINE HCL 25 MG TABLET 50 MG BY MOUTH ×2 (09:15→21:14)
[2024-08-14] MEDS: BUMETANIDE INJ 1 MG/4 ML VIAL IV PUSH (09:16)
[2024-08-14] MEDS: metOLazone 5 MG TABLET PO (09:25)
[2024-08-14] MEDS: MUPIROCIN 2% OINT 22 GM TUBE 1 APPLIC TOPICAL ×2 (09:27→17:59)
[2024-08-14 09:32] LABS: Platelet Estimate Adequate (Adequate)
[2024-08-14 09:33] LABS: Anisocytosis 1+; Hypochromasia 1+; Schistocytes None Seen
[2024-08-14 10:08] LABS: Glucose Point of Care 132 mg/dl (65-105)
--- NOTE | 2024-08-14 10:20 | P.PNIM_ITS ---
Progress Note: A&P Assessment and Plan (1) Acute respiratory failure with hypoxia: Code(s): J96.01 - Acute respiratory failure with hypoxia Status: Acute Assessment and Plan: Per chart review, according to EMS her SpO2 was 84% on room air and she was placed on a non-rebreather at 15 L with some improvement. Baseline RA. Likely secondary to CHF exacerbation. - Back to baseline RA - Wean as tolerated for SpO2 > 90 08/11- will order chest xray since oxygen requirements increased atelectasis vs pneumonia- will treat as pneumonia in setting increased oxygen demands and confusion. ON room air but still short of breath with any exertion (2) CHF exacerbation: Code(s): I50.9 - Heart failure, unspecified Status: Deleted Assessment and Plan: - Symptoms: shortness of breath with BLE edema and orthopnea She was having some chest discomfort with increased work of breathing earlier -but it is all resolved Pulmonary embolism seems less likely as she is on chronic anticoagulation. - Current medications: Bumex 1 mg IV daily - BNP: 1560 - EKG: without ST segment changes and troponin has been negative x2. - Chest XR: Interstitial prominence suggesting pneumonitis or pulmonary interstitial edema. Possible minimal pleural effusions. Normal heart size. Coronary stent - Chest CT: Moderate interstitial pulmonary edema. Trace bilateral pleural effusions. - Echo 04/08/2024: LVEF 65-70% with grade I diastolic dysfunction - Monitor vital signs, I&Os, BUN/creatinine, daily weights, neuro status and patient is a fall risk - Monitor serum electrolytes, Keep serum Potassium>4 and serum Magnesium>2 and CBC 08/11- will consult cardiology for help with chf/afib mngmnt 08/12 possible rt heart cath tomorrow 08/13- per card. :Change Bumex to I mg b.i.d. and continue metolazone- continue to monitor bmp,i/o I/O reviewed- in 612/out 4720 -8023 need to ensure better po intake- boost supplements if needed (3) Acute kidney injury superimposed on chronic kidney disease: Code(s): N17.9 - Acute kidney failure, unspecified; N18.9 - Chronic kidney disease, unspecified Status: Acute Assessment and Plan: Per nephrology note on 07/29, baseline creatinine fluctuates to extremes -- anywhere from 1.6 - 2.4mg/dl (in the last year) - BUN/Cr 53/3.7 on am labs - Worsening Cr likely related to patients ongoing diuresis for CHF exacerbation (Bumex made daily instead of BID) vs overcontrol of her BP per nephrology note consider having BP range closer to 150s systolic - Monitor renal function and I/O - Avoid nephrotoxic medications - Renally dose medications - Nephrology consulted, appreciate recommendations kidney function stable (4) Anemia: Qualifiers: Anemia type: unspecified type Qualified Code(s): D64.9 - Anemia, unspecified Code(s): D64.9 - Anemia, unspecified Status: Acute Assessment and Plan: Iron low -started on iron supplementation - f/u with pcp in 2-3 month for recheck (5) Coronary artery disease: Code(s): I25.10 - Atherosclerotic heart disease of [place] coronary artery without angina pectoris Status: Acute Assessment and Plan: Chronic, continue home medications. (6) Type 2 diabetes mellitus with hyperglycemia, with long-term current use of insulin: Code(s): E11.65 - Type 2 diabetes mellitus with hyperglycemia; Z79.4 - [facility] (current) use of insulin Status: Chronic Assessment and Plan: home insulin toujeo- 45 units at hs, ss14 units of lispro Continue basal insulin. Initiate sliding scale insulin, Accu-Cheks, and hypoglycemic protocol. will decrease lantus this am- 20 units (from 40) as few lower readings in am, protein snacks at hs-monitor 12/8- bs low thsi am- will hold lantus until PO intake improves (7) Obstructive sleep apnea on CPAP: Code(s): G47.33 - Obstructive sleep apnea (adult) (pediatric); Z99.89 - Dependence on other enabling machines and devices Status: Chronic Assessment and Plan: Does not use CPAP at home. ABG ordered. (8) Hypothyroidism (acquired): Code(s): E03.9 - Hypothyroidism, unspecified Status: Acute Assessment [place]: [place] [id number] currently on 75 mcg levothyroxine Will increase to 100 mcg on 08/07 and will need TSH recheck in 6-8 weeks as an outtpt- mid to end of October (9) Urinary tract infection: Code(s): N39.0 - Urinary tract infection, site not specified Status: Acute Assessment and Plan: ua was collected yesterday due to increased confusion. start cefepime to cover uti/pneumonia monitor for ua culture results to narrow antibiotics down pharmacy to renally dose (10) Altered mental status: Qualifiers: Altered mental status type: unspecified Qualified Code(s): R41.82 - Altered mental status, unspecified Code(s): R41.82 - Altered mental status, unspecified Status: Resolved Assessment and Plan: ua was collected,chest xray done to rule out any infectious couses - son states that pt has problems with normal activities like eating-and has episodes of confusion, ?blanking out -will order ct head and consult neurology for eval Plan will order miralax/colace as unsure when last BM was Time Spent With Patient Time with patient: Greater than 35 minutes Subjective Date/time seen: 08/14/24 10:20 Interval history: 08/14 seen and examined. ON RA- breathing still not at baseline- cardiology following- possible rt sided heart cath while in the hospital. working with PT/OT. still agreeable for placement upon discharge. Review of Systems Review of Systems: 12 systems were reviewed and are negativ e except for as per HPI. Exam Narrative: AF HR 65 RR 20 SPO2 99 BP 110/50 General: female in no acute respiratory distress who is nontoxic appearing, lying semi recumbent in bed. HEENT: Normocephalic. Atraumatic. Extraocular movement intact. Sclera clear and anicteric. No facial asymmetry. Chest: Lungs are diminished to auscultation bilaterally with lower base crackles. No wheezes. CV: Heart was regular rate and rhythm. S1-S2. No murmurs, gallops, or rubs. Abd: Abdomen was soft. Nontender. Nondistended. Positive bowel sounds. No organomegaly or masses. Ext: No clubbing, cyanosis, or edema. 2+ DP pulses bilaterally. Neuro: Patient is alert and oriented x3 (person, place, year). Cranial nerves 2- 12 are intact. Speech is clear. Objective Data Vital Signs Vital Signs: Vital Signs - 24 hr 08/13/24 12:02 08/13/24 14:00 08/13/24 17:42 Temperature 96.0 F L Pulse Rate 57 L 56 L 76 Respiratory Rate 16 Blood Pressure 134/60 Pulse Oximetry 100 Oxygen Delivery Fraction of Inspired Oxygen 08/13/24 20:00 08/13/24 21:13 08/13/24 21:34 Temperature 97.2 F L Pulse Rate 61 61 64 Respiratory Rate 22 H 22 H 20 Blood Pressure 135/54 L Pulse Oximetry 96 96 99 Oxygen Delivery Autopap Autopap Fraction of Inspired Oxygen 08/14/24 02:41 08/13/24 20:00 08/14/24 00:00 Temperature Pulse Rate 59 L 65 55 L Respiratory Rate 13 Blood Pressure Pulse Oximetry 97 Oxygen Delivery Autopap Fraction of Inspired Oxygen 08/14/24 04:00 08/14/24 05:29 08/14/24 05:42 Temperature 96.9 F L Pulse Rate 111 H 114 H 109 H Respiratory Rate 22 H Blood Pressure 142/86 H Pulse Oximetry 97 Oxygen Delivery Fraction of Inspired Oxygen 08/14/24 03:55 08/14/24 08:29 08/14/24 09:14 Temperature Pulse Rate 115 H 115 H Respiratory Rate 26 H Blood Pressure 146/82 H Pulse Oximetry 97 90 Oxygen Delivery Room Air Fraction of Inspired Oxygen 21 Intake/Output Intake/Output: Intake & Output 08/11/24 08/12/24 08/13/24 08/14/24 23:59 23:59 23:59 23:59 Intake Total 1916 1520 952 150 Output Total 750 1850 2150 800 Balance 1166 -330 -1198 -650 Meds/Results Medications: Active Medications Generic Name Dose Route Start Last Admin Trade Name Freq PRN Reason Stop Dose Admin Acetaminophen 650 mg 08/06/24 22:10 08/13/24 13:13 Acetaminophen 325 Mg Tablet PO 650 mg Q6H PRN Administration Mild Pain (1-3) or Fever Allopurinol 100 mg 08/07/24 09:00 08/14/24 09:12 Allopurinol 100 Mg Tablet PO 100 mg DAILY NICOLE Administration Amiodarone HCl 200 mg 08/06/24 21:15 08/13/24 20:01 Amiodarone Hcl 200 Mg Tablet PO 200 mg HS NICOLE Administration Apixaban 5 mg 08/06/24 21:20 08/12/24 09:51 Apixaban 5 Mg Tablet PO 5 mg Q12HR NICOLE Administration Bumetanide 1 mg 08/10/24 09:00 08/14/24 09:16 Bumetanide Inj 1 Mg/4 Ml Vial IV PUSH 1 mg DAILY NICOLE Administration Bupropion HCl 150 mg 08/07/24 09:00 08/14/24 09:11 Bupropion Hcl Xl (24 Hr) 150 Mg Tabcr PO 150 mg DAILY NICOLE Administration Buspirone HCl 15 mg 08/07/24 09:00 08/14/24 09:14 Buspirone Hcl 5 Mg Tablet PO 15 mg DAILY NICOLE Administration Calcium Carbonate 500 mg 08/07/24 09:00 08/14/24 09:12 Calcium/Vitamin D 500 Mg/5 Mcg (200 I.U.) Tablet PO 500 mg QAM NICOLE Administration Carvedilol 6.25 mg 08/14/24 09:00 08/14/24 09:14 Carvedilol 6.25 Mg Tablet PO 6.25 mg Q12HR NICOLE Administration Dextrose 12.5 gm 08/06/24 22:10 Dextrose 50% 25 Gm/50 Ml Syringe IV PUSH PRN PRN Hypoglycemia Protocol Divalproex Sodium 500 mg 08/06/24 21:50 08/13/24 20:00 Divalproex Sodium Er 500 Mg Tab.24h PO 500 mg HS NICOLE Administration Epoetin Ajit-epbx 10,000 units 08/13/24 09:00 08/13/24 08:57 Epoetin Ajit-Epbx 10,000 Units/Ml Vial SUB-Q 10,000 units TUTHSA@09 NICOLE Administration Famotidine 20 mg 08/06/24 21:20 08/13/24 19:59 Famotidine 20 Mg Tablet PO 20 mg HS NICOLE Administration Ferrous Sulfate 142 mg 08/08/24 08:00 08/14/24 09:15 Ferrous Sulfate Dried 142 Mg Tabcr PO 142 mg DAILY@0800 NICOLE Administration Gabapentin 100 mg 08/07/24 09:00 08/14/24 09:15 Gabapentin 100 Mg Capsule PO 100 mg TID NICOLE Administration Glucagon 1 mg 08/06/24 22:10 Glucagon For Inj 1 Mg Vial IM PRN PRN Hypoglycemia Protocol Glucose 15 gm 08/06/24 22:10 Glucose Oral Gel 15 Gm Of Glucse In 37.5 Gm Tube PO PRN PRN Hypoglycemia Protocol Dextrose 1,000 mls @ 100 mls/hr 08/06/24 22:10 Dextrose 5% 1,000 Ml IVPB PRN PRN Hypoglycemia Protocol Cefepime HCl 2 gm/ Dextrose 50 mls @ 100 mls/hr 08/12/24 15:00 08/13/24 16:02 IVPB 100 mls/hr Q24H NICOLE Administration Insulin Aspart 3 - 6 units 08/07/24 08:00 08/14/24 09:16 Insulin Aspart (*Bkc) 100 Units/Ml SUB-Q Not Given TIDWM [facility] Protocol Insulin Aspart 1 - 3 units 08/07/24 21:00 08/13/24 21:23 Insulin Aspart (*Bkc) 100 Units/Ml SUB-Q Not Given HS [facility] Protocol Insulin Glargine 20 units 08/13/24 09:00 08/14/24 10:07 Insulin Glargine (*Bkc) 100 Units/Ml SUB-Q Not Given DAILY [facility] Isosorbide Dinitrate 5 mg 08/09/24 21:00 08/14/24 09:15 Isosorbide Dinitrate 5 Mg Tablet PO 5 mg Q12HR NICOLE Administration Levothyroxine Sodium 100 mcg 08/08/24 06:30 08/14/24 05:30 Levothyroxine Sodium 100 Mcg Tablet PO 100 mcg DAILY@0630 [facility] Administration Memantine 10 mg 08/06/24 21:15 08/14/24 09:11 Memantine 10 Mg Tablet PO 10 mg Q12HR NICOLE Administration Miscellaneous Information 1 each 08/06/24 00:01 08/12/24 00:03 Evolocumab [Repatha Sureclick] 140 Mg/Ml Pen Injector) Is Nonformulary, Can Patient Bring XX 09/05/24 00:00 Not Given CLARIFY [facility] Miscellaneous Information 1 each 08/06/24 00:01 08/12/24 00:03 (Trospium 20 Mg Tablet) Is Nonformulary, Can Patient Bring From Home? XX 09/05/24 00:00 Not Given CLARIFY [facility] Multivitamins/Minerals 1 tablet 08/07/24 09:00 08/14/24 09:15 Opti-Gen Tab PO 1 tablet Q12HR NICOLE Administration Mupirocin 1 applic 08/07/24 09:00 08/14/24 09:27 Mupirocin 2% Oint 22 Gm Tube TOPICAL 1 applic BID NICOLE Administration Non-Formulary Medication 140 mg 08/06/24 21:15 Evolocumab [Repatha Sureclick] SUB-Q 09/05/24 21:14 Q14D [facility] Non-Formulary Medication 14 unit 08/06/24 21:15 Insulin Lispro [Humalog Kwikpen Insulin] SUB-Q 09/05/24 21:14 .tidac [facility] Non-Formulary Medication 20 mg 08/06/24 21:15 Trospium PO 09/05/24 21:14 Q12H [facility] Nystatin 1 applic 08/06/24 21:12 Nystatin Ointment 15 Gm Tube TOPICAL BID PRN Rash Pantoprazole Sodium 40 mg 08/07/24 09:00 08/14/24 09:12 Pantoprazole 40 Mg Tablet PO 40 mg Q12HR NICOLE Administration Pramipexole Dihydrochloride 0.25 mg 08/06/24 21:30 08/14/24 09:12 Pramipexole 0.25 Mg Tablet PO 0.25 mg Q12HR NICOLE Administration Venlafaxine HCl 75 mg 08/07/24 09:00 08/14/24 09:15 Venlafaxine Hcl 75 Mg Tablet BY MOUTH 75 mg Q12HR NICOLE Administration Venlafaxine HCl 50 mg 08/07/24 09:00 08/14/24 09:15 Venlafaxine Hcl 25 Mg Tablet BY MOUTH 50 mg Q12HR NICOLE Administration Vitamin B Complex 1 cap 08/07/24 09:00 08/14/24 09:15 Vitamin B Complex Capsule PO 1 cap DAILY NICOLE Administration Radiology Results: ITS Impressions Chest CT 08/06/24 15:17 IMPRESSION: Moderate interstitial pulmonary edema. Trace bilateral pleural effusions. Renal Ultrasound 08/09/24 13:35 IMPRESSION: 1. Normal kidneys. No hydronephrosis. Chest X-Ray 08/11/24 13:18 IMPRESSION: 1. Airspace opacities in the lower lung zones with worsening on the left, consistent with atelectasis versus pneumonia. 2. Worsened small pleural effusions. Head CT 08/13/24 20:44 IMPRESSION: 1. Normal aging brain. Labs Labs: Laboratory Results - last 24 hr 08/13/24 08/13/24 08/13/24 06:48 11:53 16:35 WBC RBC Hgb Hct MCV MCH MCHC RDW Plt Count MPV Immature Gran % (Auto) Neut % (Auto) Lymph % (Auto) [place] % (Auto) Eos % (Auto) Baso % (Auto) Lymph # (Auto) [place] # (Auto) Eos # (Auto) Baso # (Auto) Abs Immat Gran (auto) Absolute Neuts (auto) Absolute Nucleated RBC Nucleated RBC % Platelet Estimate Hypochromasia Anisocytosis Schistocytes Sodium Potassium Chloride Carbon Dioxide Anion Gap BUN Creatinine Estim Creat Clear Calc Estimated GFR Glucose POC Capillary Glucose 115 H 160 H Calcium Phosphorus Magnesium Total Bilirubin AST ALT Alkaline Phosphatase Total Protein Albumin Total T3 0.59 L 08/13/24 08/14/24 08/14/24 20:06 04:04 06:57 WBC 6.8 RBC 3.19 L Hgb 8.5 L Hct 29.0 L MCV 90.9 MCH 26.6 MCHC 29.3 L RDW 16.8 H Plt Count 336 MPV 9.8 Immature Gran % (Auto) 0.4 Neut % (Auto) 63.6 Lymph % (Auto) 23.4 [place] % (Auto) 5.9 Eos % (Auto) 5.7 H Baso % (Auto) 1.0 Lymph # (Auto) 1.59 [place] # (Auto) 0.4 Eos # (Auto) 0.4 H Baso # (Auto) 0.1 Abs Immat Gran (auto) 0.03 Absolute Neuts (auto) 4.3 Absolute Nucleated RBC 0.000 Nucleated RBC % 0.0 Platelet Estimate Adequate Hypochromasia 1+ Anisocytosis 1+ Schistocytes None seen Sodium 139 Potassium 4.0 Chloride 104 Carbon Dioxide 32 H Anion Gap 3 L BUN 48 H D Creatinine 2.00 H Estim Creat Clear Calc 28 Estimated GFR 24 L Glucose 67 POC Capillary Glucose 140 H 81 Calcium 9.2 Phosphorus 3.0 Magnesium 2.4 H Total Bilirubin 0.3 AST 20 ALT 17 Alkaline Phosphatase 167 H Total Protein 7.0 Albumin 3.4 L Total T3 08/14/24 08/14/24 07:58 10:03 WBC RBC Hgb Hct MCV MCH MCHC RDW Plt Count MPV Immature Gran % (Auto) Neut % (Auto) Lymph % (Auto) [place] % (Auto) Eos % (Auto) Baso % (Auto) Lymph # (Auto) [place] # (Auto) Eos # (Auto) Baso # (Auto) Abs Immat Gran (auto) Absolute Neuts (auto) Absolute Nucleated RBC Nucleated RBC % Platelet Estimate Hypochromasia Anisocytosis Schistocytes Sodium Potassium Chloride Carbon Dioxide Anion Gap BUN Creatinine Estim Creat Clear Calc Estimated GFR Glucose POC Capillary Glucose 65 132 H Calcium Phosphorus Magnesium Total Bilirubin AST ALT Alkaline Phosphatase Total Protein Albumin Total T3 Quality VTE Prophylaxis VTE prophylaxis: pharmacologic ordered (on apixaban)
--- NOTE | 2024-08-14 10:23 | P.PNNP_ITS ---
Progress Note: A&P Assessment and Plan (1) ALBERTINA (acute kidney injury): Code(s): N17.9 - Acute kidney failure, unspecified Status: Acute Assessment and Plan: * slow improvement noted with ongoing therapy * elevated on admission (but close to what it was on last hospital discharge) * worsening noted during this hospitalization after admission * presumably due to need for diuresis * holding diuretics on last hospitalization resulted in only mild improvement in renal function (and may have precipitated re-admission) * evaluation noted: * renal u/s normal * CPK slightly elevated (but not likely to affect kidney function) * urine electrolytes prerenal * UA negative for infection by culture * moderate proteinuria * follow trend of repeat labs and UOP (2) Chronic kidney disease, stage IV (severe): Code(s): N18.4 - Chronic kidney disease, stage 4 (severe) Status: Chronic Assessment and Plan: * baseline creatinine fluctuates to extremes -- anywhere from 1.6 - 2.4mg/dl (in the last year) * this causes her to fluctuate between CKD stage 3b and stage 4 * due to her hypertension, diabetes, obstructive sleep apnea, gout, diastolic heart failure + diuretics, and age-related change * this may be a situation where we have to accept a higher creatinine to maintain her volume status... (3) Acute on chronic diastolic heart failure: Code(s): I50.33 - Acute on chronic diastolic (congestive) heart failure Status: Deleted Assessment and Plan: * mild improvement noted * as noted by presentation to the ER: * bilateral LE edema + SOB + orthopnea * BNP: 1560 * admission CXR with nterstitial prominence suggesting pneumonitis or pulmonary interstitial edema. Possible minimal pleural effusions * chest CT with moderate interstitial pulmonary edema and trace bilateral pleural effusions * on IV diuretics * trial dose of metolazone on 08/12 and 08/13 with reasonable response * will dose again today * Cardiology following * possible right heart catheterization (but may not need given better diuresis and improving renal function) * follow respiratory status (4) Hypertension: Qualifiers: Hypertension type: unspecified Qualified Code(s): I10 - Essential (primary) hypertension Code(s): I10 - Essential (primary) hypertension Status: Chronic Assessment and Plan: * reasonable control at this time * follow trend of hemodynamics (5) Paroxysmal atrial fibrillation: Code(s): I48.0 - Paroxysmal atrial fibrillation Status: Chronic Assessment and Plan: * rate control strategy * on anticoagulation (6) Anemia: Qualifiers: Anemia type: unspecified type Qualified Code(s): D64.9 - Anemia, unspecified Code(s): D64.9 - Anemia, unspecified Status: Acute Assessment and Plan: * partly related to CKD along with ALBERTINA and acute illness * will dose with Retacrit 3x/week while hospitalized * PRBC transfusion per protocol * follow trend of H/H (7) Type 2 diabetes mellitus: Code(s): E11.9 - Type 2 diabetes mellitus without complications Status: Acute Assessment and Plan: * follow accu-cheks * glycemic control per hospitalists Will continue to follow. Subjective Date/time seen: 08/14/24 10:23 Interval history: Follow-up for acute kidney injury/acute renal failure on chronic kidney disease. No apparent distress noted at the time of my visit; still reports that her breathing is not at baseline although remains on room air; renal function/crea tinine improving in spite of ongoing diuresis (IV bumex + metolazone); some concerns about confusion noted but head CT negative; working with PT/OT as tolerated; no other issues/events overnight or earlier this morning. Exam Narrative: General: elderly but WD/WN female in NAD Heart: normal S1 and S2; no rub Lungs: clear anteriorly; decreased at bases with a few crackles Abdomen: soft, nontender, nondistended, positive bowel sounds Extremities: no cyanosis or clubbing; trace edema Skin: warm and dry Objective Data Vital Signs Vital Signs: Vital Signs Temp Pulse Resp BP Pulse Ox O2 Del Method FiO2 08/14/24 10:00 115 H 08/14/24 08:00 109 H 08/14/24 09:15 115 H 130/71 100 08/14/24 09:15 Room Air 08/14/24 09:14 115 H 08/14/24 08:29 90 Room Air 21 08/14/24 03:55 115 H 26 H 146/82 H 97 08/14/24 05:42 96.9 F L 109 H 22 H 142/86 H 97 08/14/24 05:29 114 H 08/14/24 04:00 111 H 08/14/24 00:00 55 L 12/07/24 20:00 65 08/14/24 02:41 59 L 13 97 Autopap 08/13/24 21:34 97.2 F L 64 20 135/54 L 99 08/13/24 21:13 61 22 H 96 Autopap 08/13/24 20:00 61 22 H 96 Autopap 08/13/24 17:42 76 Intake/Output Intake/Output: Intake & Output 08/11/24 08/12/24 08/13/24 08/14/24 23:59 23:59 23:59 23:59 Intake Total 1916 1520 1002 390 Output Total 750 1850 2150 800 Balance 1166 -330 -1148 -410 Meds/Results Medications: Active Medications Generic Name Dose Route Start Last Admin Trade Name Freq PRN Reason Stop Dose Admin Acetaminophen 650 mg 08/06/24 22:10 08/13/24 13:13 Acetaminophen 325 Mg Tablet PO 650 mg Q6H PRN Administration Mild Pain (1-3) or Fever Allopurinol 100 mg 08/07/24 09:00 08/14/24 09:12 Allopurinol 100 Mg Tablet PO 100 mg DAILY NICOLE Administration Amiodarone HCl 200 mg 08/06/24 21:15 08/13/24 20:01 Amiodarone Hcl 200 Mg Tablet PO 200 mg HS NICOLE Administration Apixaban 5 mg 08/06/24 21:20 08/12/24 09:51 Apixaban 5 Mg Tablet PO 5 mg Q12HR NICOLE Administration Bumetanide 1 mg 08/15/24 09:00 Bumetanide 1 Mg Tablet PO DAILY NICOLE Bupropion HCl 150 mg 08/07/24 09:00 08/14/24 09:11 Bupropion Hcl Xl (24 Hr) 150 Mg Tabcr PO 150 mg DAILY NICOLE Administration Buspirone HCl 15 mg 08/07/24 09:00 08/14/24 09:14 Buspirone Hcl 5 Mg Tablet PO 15 mg DAILY NICOLE Administration Calcium Carbonate 500 mg 08/07/24 09:00 08/14/24 09:12 Calcium/Vitamin D 500 Mg/5 Mcg (200 I.U.) Tablet PO 500 mg QAM NICOLE Administration Carvedilol 6.25 mg 08/14/24 09:00 08/14/24 09:14 Carvedilol 6.25 Mg Tablet PO 6.25 mg Q12HR NICOLE Administration Dextrose 12.5 gm 08/06/24 22:10 Dextrose 50% 25 Gm/50 Ml Syringe IV PUSH PRN PRN Hypoglycemia Protocol Divalproex Sodium 500 mg 08/06/24 21:50 08/13/24 20:00 Divalproex Sodium Er 500 Mg Tab.24h PO 500 mg HS NICOLE Administration Docusate Sodium 100 mg 08/14/24 13:40 Docusate Sodium 100 Mg Capsule PO Q12H PRN Constipation Epoetin Ajit-epbx 10,000 units 08/13/24 09:00 08/13/24 08:57 Epoetin Ajit-Epbx 10,000 Units/Ml Vial SUB-Q 10,000 units TUTHSA@09 NICOLE Administration Famotidine 20 mg 08/06/24 21:20 08/13/24 19:59 Famotidine 20 Mg Tablet PO 20 mg HS NICOLE Administration Ferrous Sulfate 142 mg 08/08/24 08:00 08/14/24 09:15 Ferrous Sulfate Dried 142 Mg Tabcr PO 142 mg DAILY@0800 NICOLE Administration Gabapentin 100 mg 08/07/24 09:00 08/14/24 12:22 Gabapentin 100 Mg Capsule PO 100 mg TID NICOLE Administration Glucagon 1 mg 08/06/24 22:10 Glucagon For Inj 1 Mg Vial IM PRN PRN Hypoglycemia Protocol Glucose 15 gm 08/06/24 22:10 Glucose Oral Gel 15 Gm Of Glucse In 37.5 Gm Tube PO PRN PRN Hypoglycemia Protocol Dextrose 1,000 mls @ 100 mls/hr 08/06/24 22:10 Dextrose 5% 1,000 Ml IVPB PRN PRN Hypoglycemia Protocol Cefepime HCl 2 gm/ Dextrose 50 mls @ 100 mls/hr 08/12/24 15:00 08/14/24 16:32 IVPB 100 mls/hr Q24H NICOLE Administration Insulin Aspart 3 - 6 units 08/07/24 08:00 08/14/24 12:00 Insulin Aspart (*Bkc) 100 Units/Ml SUB-Q Not Given TIDWM NICOLE Protocol Insulin Aspart 1 - 3 units 08/07/24 21:00 08/13/24 21:23 Insulin Aspart (*Bkc) 100 Units/Ml SUB-Q Not Given HS [facility] Protocol Insulin Glargine 20 units 08/13/24 09:00 08/14/24 10:07 Insulin Glargine (*Bkc) 100 Units/Ml SUB-Q Not Given DAILY NICOLE Isosorbide Dinitrate 5 mg 08/09/24 21:00 08/14/24 09:15 Isosorbide Dinitrate 5 Mg Tablet PO 5 mg Q12HR NICOLE Administration Levothyroxine Sodium 100 mcg 08/08/24 06:30 08/14/24 05:30 Levothyroxine Sodium 100 Mcg Tablet PO 100 mcg DAILY@0630 NICOLE Administration Memantine 10 mg 08/06/24 21:15 08/14/24 09:11 Memantine 10 Mg Tablet PO 10 mg Q12HR NICOLE Administration Miscellaneous Information 1 each 08/06/24 00:01 08/12/24 00:03 Evolocumab [Repatha Sureclick] 140 Mg/Ml Pen Injector) Is Nonformulary, Can Patient Bring XX 09/05/24 00:00 Not Given CLARIFY [facility] Miscellaneous Information 1 each 08/06/24 00:01 08/12/24 00:03 (Trospium 20 Mg Tablet) Is Nonformulary, Can Patient Bring From Home? XX 09/05/24 00:00 Not Given CLARIFY [facility] Multivitamins/Minerals 1 tablet 08/07/24 09:00 08/14/24 09:15 Opti-Gen Tab PO 1 tablet Q12HR [facility] Administration Mupirocin 1 applic 08/07/24 09:00 08/14/24 09:27 Mupirocin 2% Oint 22 Gm Tube TOPICAL 1 applic BID NICOLE Administration Non-Formulary Medication 140 mg 08/06/24 21:15 Evolocumab [Repatha Sureclick] SUB-Q 09/05/24 21:14 Q14D NICOLE Non-Formulary Medication 14 unit 08/06/24 21:15 Insulin Lispro [Humalog Kwikpen Insulin] SUB-Q 09/05/24 21:14 .tidac NICOLE Non-Formulary Medication 20 mg 08/06/24 21:15 Trospium PO 09/05/24 21:14 Q12H NICOLE Nystatin 1 applic 08/06/24 21:12 Nystatin Ointment 15 Gm Tube TOPICAL BID PRN Rash Pantoprazole Sodium 40 mg 08/07/24 09:00 08/14/24 09:12 Pantoprazole 40 Mg Tablet PO 40 mg Q12HR NICOLE Administration Polyethylene Glycol 17 gm 08/14/24 13:40 Polyethylene Glycol 3350 17 Gm Powd.Pack PO QAM PRN Constipation Pramipexole Dihydrochloride 0.25 mg 08/06/24 21:30 08/14/24 09:12 Pramipexole 0.25 Mg Tablet PO 0.25 mg Q12HR NICOLE Administration Venlafaxine HCl 75 mg 08/07/24 09:00 08/14/24 09:15 Venlafaxine Hcl 75 Mg Tablet BY MOUTH 75 mg Q12HR NICOLE Administration Venlafaxine HCl 50 mg 08/07/24 09:00 08/14/24 09:15 Venlafaxine Hcl 25 Mg Tablet BY MOUTH 50 mg Q12HR NICOLE Administration Vitamin B Complex 1 cap 08/07/24 09:00 08/14/24 09:15 Vitamin B Complex Capsule PO 1 cap DAILY NICOLE Administration Radiology Results: ITS Impressions Chest CT 08/06/24 15:17 IMPRESSION: Moderate interstitial pulmonary edema. Trace bilateral pleural effusions. Renal Ultrasound 08/09/24 13:35 IMPRESSION: 1. Normal kidneys. No hydronephrosis. Chest X-Ray 08/11/24 13:18 IMPRESSION: 1. Airspace opacities in the lower lung zones with worsening on the left, consistent with atelectasis versus pneumonia. 2. Worsened small pleural effusions. Head CT 08/13/24 20:44 IMPRESSION: 1. Normal aging brain. Labs Labs: Laboratory Tests 08/14/24 06:57 08/14/24 06:57 Calcium 9.2 Phosphorus 3.0 Magnesium 2.4 H Total Bilirubin 0.3 AST 20 ALT 17 Alkaline Phosphatase 167 H Total Protein 7.0 Albumin 3.4 L
[2024-08-14 11:57] LABS: Glucose Point of Care 110 mg/dl (65-105)
[2024-08-14] MEDS: CEFEPIME 2 GM in DEXTROSE 5% IN WATER 50 ML IVPB (16:32)
[2024-08-14 17:47] LABS: Glucose Point of Care 121 mg/dl (65-105)
[2024-08-14] MEDS: ACETAMINOPHEN 325 MG TABLET 650 MG PO (19:22)
[2024-08-14 20:34] LABS: Glucose Point of Care 109 mg/dl (65-105)
[2024-08-14] MEDS: DIVALPROEX SODIUM ER 500 MG TAB.24H PO (21:11)
[2024-08-14] MEDS: AMIODARONE HCL 200 MG TABLET PO (21:12)
[2024-08-14] MEDS: FAMOTIDINE 20 MG TABLET PO (21:13)
[2024-08-15] VITALS (12 sets, daily range): BP systolic 98–171; BP diastolic 48–108; PULSE 60–120; RESP 18–26; TEMP 36.2–36.6; O2SAT 96–100
[2024-08-15 05:25] LABS: Glucose Point of Care 78 mg/dl (65-105)
[2024-08-15] MEDS: LEVOTHYROXINE SODIUM 100 MCG TABLET PO (06:00)
[2024-08-15 07:13] LABS: Basophils Absolute Auto 0.1 K/mm3 (0.0-0.1); Basophils Percent Auto 0.8 % (0.2-1.2); Eosinophils Absolute Auto 0.5 K/mm3 (0-0.3); Eosinophils Percent Auto 5.2 % (0-4.4); Hematocrit 31.3 % (37.0-47.0); Hemoglobin 9.4 g/dL (12.0-15.0); Immature Granulocyte Absolute 0.03 K/mm3 (0.00-0.031); Immature Granulocyte Percent A 0.3 % (0-0.5); Lymphocytes Absolute Auto 1.84 K/mm3 (0.9-3.2); Lymphocytes Percent Auto 21.2 % (18.3-44.2); Mean Corpuscular Hemoglobin 27.2 pg (26-34); Mean Corpuscular Volume 90.5 fl (80-100); Mean Platelet Volume 9.5 fl (7.4-10.4); Monocytes Absolute Auto 0.4 K/mm3 (0.1-0.6); Monocytes Percent Auto 4.9 % (2.6-8.5); Neutrophils Absolute Auto 5.9 K/mm3 (1.3-6.7); Neutrophils Percent Auto 67.6 % (45.5-73.1); Platelet Count Result 349 k/mm3 (150-375); Red Blood Count 3.46 M/mm3 (4.2-5.4); White Blood Count 8.7 K/mm3 (4.5-10.0)
[2024-08-15 07:28] LABS: Alanine Aminotransferase 16 U/L (6-35); Albumin Level 3.4 g/dL (3.5-5.1); Alkaline Phosphatase 171 U/L (38-126); Anion Gap 2 mmol/L (4-12); Aspartate Amino Transferase 19 U/L (14-36); Bilirubin,Total 0.3 mg/dL (0.2-1.3); Blood Urea Nitrogen 34 mg/dL (7-17); Calcium 9.4 mg/dL (8.4-10.2); Carbon Dioxide 37 mmol/L (22-30); Chloride 99 mmol/L (98-107); Estimated CRCL calculation 31 ml/min; Estimated Glomerular Filt Rate 27; Glucose 78 mg/dL (65-110); Magnesium 2.1 mg/dL (1.6-2.3); Phosphorus 2.6 mg/dL (2.5-4.5); Potassium 3.6 mmol/L (3.4-5.0); Sodium 138 mmol/L (137-145)
[2024-08-15 07:55] LABS: Glucose Point of Care 78 mg/dl (65-105)
[2024-08-15] MEDS: GABAPENTIN 100 MG CAPSULE PO (09:46)
[2024-08-15] MEDS: FERROUS SULFATE DRIED 142 MG TABCR PO (09:46)
[2024-08-15] MEDS: PRAMIPEXOLE 0.25 MG TABLET PO (09:46)
[2024-08-15] MEDS: CALCIUM/VITAMIN D 500 MG/5 MCG (200 I.U.) TABLET PO (09:46)
[2024-08-15] MEDS: PANTOPRAZOLE 40 MG TABLET PO ×2 (09:46→21:29)
[2024-08-15] MEDS: VENLAFAXINE HCL 25 MG TABLET 50 MG BY MOUTH ×2 (09:46→21:28)
[2024-08-15] MEDS: buPROPion HCL XL (24 HR) 150 MG TABCR PO (09:46)
[2024-08-15] MEDS: ISOSORBIDE DINITRATE 5 MG TABLET PO ×2 (09:47→21:29)
[2024-08-15] MEDS: VENLAFAXINE HCL 75 MG TABLET BY MOUTH ×2 (09:47→21:30)
[2024-08-15] MEDS: allopurinoL 100 MG TABLET PO (09:47)
[2024-08-15] MEDS: busPIRone HCL 5 MG TABLET 15 MG PO (09:47)
[2024-08-15] MEDS: VITAMIN B COMPLEX CAPSULE 1 CAP PO (09:47)
[2024-08-15] MEDS: BUMETANIDE 1 MG TABLET PO (09:47)
[2024-08-15] MEDS: carvediloL 6.25 MG TABLET PO ×2 (09:47→21:29)
[2024-08-15] MEDS: MEMANTINE 10 MG TABLET PO ×2 (09:49→21:29)
[2024-08-15] MEDS: OPTI-GEN TAB 1 TABLET PO ×2 (09:49→21:30)
[2024-08-15] MEDS: MUPIROCIN 2% OINT 22 GM TUBE 1 APPLIC TOPICAL ×2 (09:49→17:32)
[2024-08-15] MEDS: metOLazone 5 MG TABLET PO (09:53)
--- NOTE | 2024-08-15 10:38 | PM.PNNEP ---
Progress Note: A&P Assessment and Plan (1) ALBERTINA (acute kidney injury): Code(s): N17.9 - Acute kidney failure, unspecified Status: Acute Assessment and Plan: slow improvement noted with ongoing therapy elevated on admission (but close to what it was on last hospital discharge) worsening noted during this hospitalization after admission however, improvement noted at this time holding diuretics on last hospitalization resulted in only mild improvement in renal function (and may have precipitated re-admission) evaluation noted: renal u/s normal CPK slightly elevated (but not likely to affect kidney function) urine electrolytes prerenal UA negative for infection by culture moderate proteinuria follow trend of repeat labs and UOP (2) Chronic kidney disease, stage IV (severe): Code(s): N18.4 - Chronic kidney disease, stage 4 (severe) Status: Chronic Assessment and Plan: baseline creatinine fluctuates to extremes -- anywhere from 1.6 - 2.4mg/dl (in the last year) this causes her to fluctuate between CKD stage 3b and stage 4 due to her hypertension, diabetes, obstructive sleep apnea, gout, diastolic heart failure + diuretics, and age-related change this may be a situation where we have to accept a higher creatinine to maintain her volume status... (3) Acute on chronic diastolic heart failure: Code(s): I50.33 - Acute on chronic diastolic (congestive) heart failure Status: Deleted Assessment and Plan: improvement noted as noted by presentation to the ER: bilateral LE edema + SOB + orthopnea BNP: 1560 admission CXR with nterstitial prominence suggesting pneumonitis or pulmonary interstitial edema. Possible minimal pleural effusions chest CT with moderate interstitial pulmonary edema and trace bilateral pleural effusions on IV diuretics trial dose of metolazone on 08/12 and 08/13 with reasonable response will dose again today Cardiology following possible right heart catheterization (but may not need given better diuresis and improving renal function) follow respiratory status (4) Hypertension: Qualifiers: Hypertension type: unspecified Qualified Code(s): I10 - Essential (primary) hypertension Code(s): I10 - Essential (primary) hypertension Status: Chronic Assessment and Plan: reasonable control at this time follow trend of hemodynamics (5) Paroxysmal atrial fibrillation: Code(s): I48.0 - Paroxysmal atrial fibrillation Status: Chronic Assessment and Plan: rate control strategy on anticoagulation (6) Anemia: Qualifiers: Anemia type: unspecified type Qualified Code(s): D64.9 - Anemia, unspecified Code(s): D64.9 - Anemia, unspecified Status: Acute Assessment and Plan: partly related to CKD along with ALBERTINA and acute illness Retacrit 3x/week while hospitalized PRBC transfusion per protocol follow trend of H/H (7) Type 2 diabetes mellitus: Code(s): E11.9 - Type 2 diabetes mellitus without complications Status: Acute Assessment and Plan: follow accu-cheks glycemic control per hospitalists Will continue to follow. Subjective Date/time seen: 08/15/24 10:38 Interval history: Follow-up for acute kidney injury/acute renal failure on chronic kidney disease. Appears to be doing reasonably well at the time of my visit; slept well last night with ongoing improvement if not stability in breathing/respiratory status; renal function/creatinine is also improving despite ongoing diuresis/diuretics (oral bumex and PRN metolazone) with reasonable urine output noted (and negative fluid balance); no apparent distress voiced when seen. Exam Narrative: General: elderly but WD/WN female in NAD Heart: normal S1 and S2; no rub Lungs: clear anteriorly; decreased at bases Abdomen: soft, nontender, nondistended, positive bowel sounds Extremities: no cyanosis or clubbing; trace edema Skin: warm and intact Objective Data Vital Signs Vital Signs: Vital Signs Temp Pulse Resp BP Pulse Ox O2 Del Method 08/15/24 09:47 97.9 F 68 18 98/74 L 100 08/15/24 08:00 110 H Room Air 08/15/24 06:00 97.1 F L 110 H 22 H 147/94 H 98 08/15/24 04:00 112 H 08/15/24 00:00 109 H 08/14/24 20:00 110 H 08/14/24 20:00 Room Air 08/14/24 22:00 97.0 F L 103 H 24 H 117/86 98 08/14/24 21:13 68 08/14/24 21:12 68 08/14/24 20:13 110 H 130/87 97 08/14/24 20:00 97.3 F L 74 12 106/85 99 08/14/24 16:00 111 H 08/14/24 14:00 97.7 F 108 H 18 136/84 99 08/14/24 12:00 115 H Intake/Output Intake/Output: Intake & Output 08/12/24 08/13/24 08/14/24 08/15/24 23:59 23:59 23:59 23:59 Intake Total 1520 1002 630 540 Output Total 1850 2150 1000 1450 Balance -330 -1148 -370 -910 Meds/Results Medications: Active Medications Generic Name Dose Route Start Last Admin Trade Name Freq PRN Reason Stop Dose Admin Acetaminophen 650 mg 08/06/24 22:10 08/14/24 19:22 Acetaminophen 325 Mg Tablet PO 650 mg Q6H PRN Administration Mild Pain (1-3) or Fever Allopurinol 100 mg 08/07/24 09:00 08/15/24 09:47 Allopurinol 100 Mg Tablet PO 100 mg DAILY NICOLE Administration Amiodarone HCl 200 mg 08/06/24 21:15 08/14/24 21:12 Amiodarone Hcl 200 Mg Tablet PO 200 mg HS NICOLE Administration Apixaban 5 mg 08/06/24 21:20 08/12/24 09:51 Apixaban 5 Mg Tablet PO 5 mg Q12HR NICOLE Administration Bumetanide 1 mg 08/15/24 09:00 08/15/24 09:47 Bumetanide 1 Mg Tablet PO 1 mg DAILY NICOLE Administration Bupropion HCl 150 mg 08/07/24 09:00 08/15/24 09:46 Bupropion Hcl Xl (24 Hr) 150 Mg Tabcr PO 150 mg DAILY NICOLE Administration Buspirone HCl 15 mg 08/07/24 09:00 08/15/24 09:47 Buspirone Hcl 5 Mg Tablet PO 15 mg DAILY NICOLE Administration Calcium Carbonate 500 mg 08/07/24 09:00 08/15/24 09:46 Calcium/Vitamin D 500 Mg/5 Mcg (200 I.U.) Tablet PO 500 mg QAM NICOLE Administration Carvedilol 6.25 mg 08/14/24 09:00 08/15/24 09:47 Carvedilol 6.25 Mg Tablet PO 6.25 mg Q12HR NICOLE Administration Dextrose 12.5 gm 08/06/24 22:10 Dextrose 50% 25 Gm/50 Ml Syringe IV PUSH PRN PRN Hypoglycemia Protocol Divalproex Sodium 500 mg 08/06/24 21:50 08/14/24 21:11 Divalproex Sodium Er 500 Mg Tab.24h PO 500 mg HS NICOLE Administration Docusate Sodium 100 mg 08/14/24 13:40 Docusate Sodium 100 Mg Capsule PO Q12H PRN Constipation Epoetin Ajit-epbx 10,000 units 08/13/24 09:00 08/13/24 08:57 Epoetin Ajit-Epbx 10,000 Units/Ml Vial SUB-Q 10,000 units TUTHSA@09 [facility] Administration Famotidine 20 mg 08/06/24 21:20 08/14/24 21:13 Famotidine 20 Mg Tablet PO 20 mg HS NICOLE Administration Ferrous Sulfate 142 mg 08/08/24 08:00 08/15/24 09:46 Ferrous Sulfate Dried 142 Mg Tabcr PO 142 mg DAILY@0800 [facility] Administration Gabapentin 100 mg 08/07/24 09:00 08/15/24 09:46 Gabapentin 100 Mg Capsule PO 100 mg TID NICOLE Administration Glucagon 1 mg 08/06/24 22:10 Glucagon For Inj 1 Mg Vial IM PRN PRN Hypoglycemia Protocol Glucose 15 gm 08/06/24 22:10 Glucose Oral Gel 15 Gm Of Glucse In 37.5 Gm Tube PO PRN PRN Hypoglycemia Protocol Dextrose 1,000 mls @ 100 mls/hr 08/06/24 22:10 Dextrose 5% 1,000 Ml IVPB PRN PRN Hypoglycemia Protocol Cefepime HCl 2 gm/ Dextrose 50 mls @ 100 mls/hr 08/12/24 15:00 08/14/24 16:32 IVPB 100 mls/hr Q24H NICOLE Administration Insulin Aspart 3 - 6 units 08/07/24 08:00 08/15/24 09:16 Insulin Aspart (*Bkc) 100 Units/Ml SUB-Q Not Given TIDWM [facility] Protocol Insulin Aspart 1 - 3 units 08/07/24 21:00 08/14/24 21:14 Insulin Aspart (*Bkc) 100 Units/Ml SUB-Q Not Given HS [facility] Protocol Insulin Glargine 20 units 08/13/24 09:00 08/15/24 09:50 Insulin Glargine (*Bkc) 100 Units/Ml SUB-Q Not Given DAILY [facility] Isosorbide Dinitrate 5 mg 08/09/24 21:00 08/15/24 09:47 Isosorbide Dinitrate 5 Mg Tablet PO 5 mg Q12HR NICOLE Administration Levothyroxine Sodium 100 mcg 08/08/24 06:30 08/15/24 06:00 Levothyroxine Sodium 100 Mcg Tablet PO 100 mcg DAILY@0630 NICOLE Administration Memantine 10 mg 08/06/24 21:15 08/15/24 09:49 Memantine 10 Mg Tablet PO 10 mg Q12HR NICOLE Administration Miscellaneous Information 1 each 08/06/24 00:01 08/12/24 00:03 Evolocumab [Repatha Sureclick] 140 Mg/Ml Pen Injector) Is Nonformulary, Can Patient Bring XX 09/05/24 00:00 Not Given CLARIFY [facility] Miscellaneous Information 1 each 08/06/24 00:01 08/12/24 00:03 (Trospium 20 Mg Tablet) Is Nonformulary, Can Patient Bring From Home? XX 09/05/24 00:00 Not Given CLARIFY [facility] Multivitamins/Minerals 1 tablet 08/07/24 09:00 08/15/24 09:49 Opti-Gen Tab PO 1 tablet Q12HR NICOLE Administration Mupirocin 1 applic 08/07/24 09:00 08/15/24 09:49 Mupirocin 2% Oint 22 Gm Tube TOPICAL 1 applic BID NICOLE Administration Non-Formulary Medication 140 mg 08/06/24 21:15 Evolocumab [Repatha Sureclick] SUB-Q 09/05/24 21:14 Q14D NICOLE Non-Formulary Medication 14 unit 08/06/24 21:15 Insulin Lispro [Humalog Kwikpen Insulin] SUB-Q 09/05/24 21:14 .tidac NICOLE Non-Formulary Medication 20 mg 08/06/24 21:15 Trospium PO 09/05/24 21:14 Q12H NICOLE Nystatin 1 applic 08/06/24 21:12 Nystatin Ointment 15 Gm Tube TOPICAL BID PRN Rash Pantoprazole Sodium 40 mg 08/07/24 09:00 08/15/24 09:46 Pantoprazole 40 Mg Tablet PO 40 mg Q12HR NICOLE Administration Polyethylene Glycol 17 gm 08/14/24 13:40 Polyethylene Glycol 3350 17 Gm Powd.Pack PO QAM PRN Constipation Pramipexole Dihydrochloride 0.25 mg 08/06/24 21:30 08/15/24 09:46 Pramipexole 0.25 Mg Tablet PO 0.25 mg Q12HR NICOLE Administration Venlafaxine HCl 75 mg 08/07/24 09:00 08/15/24 09:47 Venlafaxine Hcl 75 Mg Tablet BY MOUTH 75 mg Q12HR NICOLE Administration Venlafaxine HCl 50 mg 08/07/24 09:00 08/15/24 09:46 Venlafaxine Hcl 25 Mg Tablet BY MOUTH 50 mg Q12HR NICOLE Administration Vitamin B Complex 1 cap 08/07/24 09:00 08/15/24 09:47 Vitamin B Complex Capsule PO 1 cap DAILY NICOLE Administration Radiology Results: ITS Impressions Chest CT 08/06/24 15:17 IMPRESSION: Moderate interstitial pulmonary edema. Trace bilateral pleural effusions. Renal Ultrasound 08/09/24 13:35 IMPRESSION: 1. Normal kidneys. No hydronephrosis. Chest X-Ray 08/11/24 13:18 IMPRESSION: 1. Airspace opacities in the lower lung zones with worsening on the left, consistent with atelectasis versus pneumonia. 2. Worsened small pleural effusions. Head CT 08/13/24 20:44 IMPRESSION: 1. Normal aging brain. Labs Labs: Laboratory Tests 08/15/24 06:50 08/15/24 06:50 Calcium 9.4 Phosphorus 2.6 Magnesium 2.1 Total Bilirubin 0.3 AST 19 ALT 16 Alkaline Phosphatase 171 H Total Protein 7.0 Albumin 3.4 L
[2024-08-15 11:45] LABS: Glucose Point of Care 126 mg/dl (65-105)
--- NOTE | 2024-08-15 12:07 | WPDNEURCNPN ---
Assessment and Plan Assessment and plan (1) Metabolic encephalopathy: Code(s): G93.41 - Metabolic encephalopathy Status: Acute (2) MCI (mild cognitive impairment): Code(s): G31.84 - Mild cognitive impairment of uncertain or unknown etiology Status: Acute (3) Ataxia: Code(s): R27.0 - Ataxia, unspecified Status: Acute (4) Diabetic polyneuropathy: Code(s): E11.42 - Type 2 diabetes mellitus with diabetic polyneuropathy Status: Acute (5) Paroxysmal atrial fibrillation: Code(s): I48.0 - Paroxysmal atrial fibrillation Status: Chronic (6) Insulin dependent type 2 diabetes mellitus: Code(s): E11.9 - Type 2 diabetes mellitus without complications; Z79.4 - medical terminologist (current) use of insulin Status: Acute (7) H/O heart artery stent: Code(s): Z95.5 - Presence of coronary angioplasty implant and graft Status: Acute (8) Suicide attempt: Code(s): T14.91XA - Suicide attempt, initial encounter Status: Acute Plan Patient appears to be drowsy and hence I would suggest to hold off gabapentin and a primipraxole.. She is also on Depakote and Wellbutrin and Effexor probably prescribed by psychiatrist in view of the history of suicide attempt. Of course I can leave this in the hands of psychiatrist. Draw a drug effect and a effect of her other metabolic conditions can also play a role in her current condition. CT scan of brain was performed on 08/13/2024 which did not show any significant abnormalities. I did not find any significant focal deficit. I had seen her in March 2024 with regards to her mild ataxia and peripheral neuropathy. Serum B12 on 08/13/2024 was over 1000. TSH was slightly high at 13.7. Alkaline phosphatase was high at 175. I believe that she suspected a urinary tract infection that can also play a role in the causation of metabolic encephalopathy. In addition her chest x-ray shows airspace opacities in the lower lung zones with worsening on the left consistent with atelectasis versus pneumonia and worsening of the small pleural effusions. All these can also add further to encephalopathy. She is on Namenda 10 mg twice a day and I will suggest to continue with it. I will go ahead and order an EEG. She requires follow-up. Consult date: 08/15/24 HPI: Aleksandra Berman is a 78 year old female Admitted to the hospital on 08/06/2024 with complaints of shortness of breath and chest pain. She has developed acute kidney failure. She also has history of diabetes mellitus. She saw me in March 2024 for symptoms of ataxia and peripheral neuropathy. She also history of atrial fibrillation. She was found to have a hemoglobin of 8.5 with hematocrit of 29. Her creatinine is now 2.0. She has been evaluated by Nephrology. When I came to see her she seems to fairly sleepy. She will open eyes and smiles but goes back to sleep. It is difficult to keep her attention for very long. However she does not appear to act in any inappropriate way. Upon questioning she denies any pain or shortness of breath. Review of Systems Review of Systems: ROS unobtainable: Yes unobtainable due to mental status PMFSH Past Medical History Medical History (Updated 08/15/24 @ 12:15 by Dre Pelletier MD) Anemia Anxiety Ataxia Breast cancer Chronic anticoagulation Degeneration of lumbar or lumbosacral intervertebral disc Depression Diabetic peripheral neuropathy Diabetic polyneuropathy Dysphagia Hypertension Hypothyroidism Knee osteoarthritis Macular degeneration MCI (mild cognitive impairment) Metabolic encephalopathy Minimal cognitive impairment Mixed hyperlipidemia Obstructive sleep apnea on CPAP Paroxysmal atrial fibrillation Restless leg syndrome Skin cancer Type 2 diabetes mellitus (1989) Venous stasis dermatitis Surgical History Surgical History History of cardiac catheterization History of cataract removal with insertion of prosthetic lens History of cholecystectomy History of coronary artery stent placement History of reconstruction of right breast History of right hip replacement (2017) History of right mastectomy Normal esophagogastroduodenoscopy (EGD) Family History Family History Father Hypertension COPD (chronic obstructive pulmonary disease) Heart disease Diabetes mellitus Mother Lung cancer Depression Sibling Acute basophilic leukemia Sepsis Diabetes mellitus Acute myocardial infarction Daughter Depression Drug overdose Sibling No problems noted. Social History Social History Social History: Surrogate medical decision maker: Luis Rome, jayne. Code status: Full code. Smoking status: Never smoker Second hand tobacco smoke exposure: Yes Alcohol intake: never Substance use: never Substance use type: does not use Do You Feel Safe in your Home?: Yes Lack of Transportation: No Lack of Food: Never True Current Housing: I Have Housing Concerned About Future Housing: No Difficulty Paying Gas/Electric Bills: No Difficulty Paying for Meds: No Currently Unemployed: No Education: High School Diploma/GED Difficulty w/ Childcare or Family Care: No Living arrangements: alone Additional living arrangements comments: . Lives alone. Has 2 children, daughter . 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 Spiritual care concerns: No Meds Home Medications and Allergies Home Medications Medication Instructions Recorded Confirmed Type divalproex 500 mg tablet,delayed 500 mg PO HS 03/06/22 08/06/24 History release (Depakote) vit C 250 mg-E 90 mg-zinc 40 1 tablet PO Q12H 03/27/23 08/06/24 History mg-copper 1 [id number] chew tablet (PreserVision AREDS-2) evolocumab 140 mg/mL subcutaneous 140 mg subcut Q14D 07/13/23 08/06/24 History pen injector (Narda Bernard) blood-glucose meter (Blood Glucose #1 ea 02/22/24 08/06/24 Rx Monitoring kit) bumetanide 2 mg tablet 2 mg PO Q12H 04/04/24 08/06/24 History calcium 600 mg (as 1 tablet PO DAILY 04/04/24 08/06/24 History carbonate)-vitamin D3 5 mcg (200 unit) tablet famotidine 20 mg tablet 20 mg PO HS 04/04/24 08/06/24 History gabapentin 100 mg capsule 100 mg PO Q8H 04/04/24 08/06/24 History (Neurontin) levothyroxine 75 mcg tablet 75 mcg PO 0630 04/04/24 08/06/24 History (Euthyrox) memantine 10 mg tablet 10 mg PO Q12H 04/04/24 08/06/24 History nystatin 100,000 unit/gram topical 1 applic topical BID PRN Rash 04/04/24 08/06/24 History ointment vitamin B complex 1 tablet PO DAILY 04/04/24 08/06/24 History apixaban 5 mg tablet (Eliquis) 5 mg PO Q12H #90 tabs 04/26/24 08/06/24 Rx omeprazole 40 mg capsule,delayed 40 mg PO DAILY laryngopharyngeal 05/03/24 08/06/24 Rx release reflux #30 caps insulin lispro 100 unit/mL 14 unit (0.14 mL) subcut .tidac 90 05/19/24 08/06/24 Rx subcutaneous pen (Humalog KwikPen days #54 mL (U-100) Insulin) insulin glargine U-300 conc 300 45 unit (0.15 mL) subcut DAILY 90 05/20/24 08/06/24 Rx unit/mL (3 mL) subcutaneous pen days #15 mL (Toujeo Max U-300 SoloStar) isosorbide dinitrate 10 mg tablet 10 mg PO Q12H #90 tabs 05/31/24 08/06/24 Rx amiodarone 200 mg tablet 200 mg PO HS #30 tabs 06/24/24 08/06/24 Rx trospium 20 mg tablet 20 mg PO Q12H #30 tabs 06/24/24 08/06/24 Rx mupirocin 2 % topical ointment 1 applic topical BID #22 grams 07/12/24 08/06/24 Rx allopurinol 100 mg tablet 100 mg PO DAILY 07/21/24 08/06/24 History bupropion HCl 150 mg 24 hr tablet, 150 mg PO DAILY 07/21/24 08/06/24 History extended release buspirone 15 mg tablet 15 mg PO DAILY 07/21/24 08/06/24 History carvedilol 6.25 mg tablet 6.25 mg PO DAILY 07/21/24 08/06/24 History pramipexole 0.25 mg tablet 0.25 mg PO BID 07/21/24 08/06/24 History venlafaxine 75 mg capsule,extended 125 mg PO DAILY 07/21/24 08/06/24 History release 24 hr (Effexor XR) Allergies Allergy/AdvReac Type Severity Reaction Status Date / Time [id number] Reductase Allergy Intermediate Other Verified 08/06/24 13:37 Inhibitor pseudoephedrine Allergy Unknown Hives Verified 08/06/24 13:37 NSAIDS (Non-Steroidal AdvReac Intermediate Other Verified 08/06/24 13:37 Anti-Inflamma oxycodone AdvReac Intermediate Itching Verified 08/06/24 13:37 atenolol AdvReac Mild Muscle Pain Verified 08/06/24 13:37 exenatide [From Bydureon] AdvReac Mild Diarrhea Verified 08/06/24 13:37 hydrocodone AdvReac Mild Itching Verified 08/06/24 13:37 [From Panlor (hydrocodone-acetamin)] prochlorperazine AdvReac Mild Itching Verified 08/06/24 13:37 [From Compazine] rice AdvReac Mild Heartburn Verified 08/06/24 13:37 Vital Signs Vital Signs - 24 hr 08/14/24 14:00 08/14/24 16:00 08/14/24 20:00 Temperature 97.7 F 97.3 F L Pulse Rate 108 H 111 H 74 Respiratory Rate 18 12 Blood Pressure 136/84 106/85 Pulse Oximetry 99 99 Oxygen Delivery 08/14/24 20:13 08/14/24 21:12 08/14/24 21:13 Temperature Pulse Rate 110 H 68 68 Respiratory Rate Blood Pressure 130/87 Pulse Oximetry 97 Oxygen Delivery 08/14/24 22:00 08/14/24 20:00 08/14/24 20:00 Temperature 97.0 F L Pulse Rate 103 H 110 H Respiratory Rate 24 H Blood Pressure 117/86 Pulse Oximetry 98 Oxygen Delivery Room Air 08/15/24 00:00 08/15/24 04:00 08/15/24 06:00 Temperature 97.1 F L Pulse Rate 109 H 112 H 110 H Respiratory Rate 22 H Blood Pressure 147/94 H Pulse Oximetry 98 Oxygen Delivery 08/15/24 09:47 08/15/24 08:00 08/15/24 08:00 Temperature 97.9 F Pulse Rate 110 H 68 Respiratory Rate 18 Blood Pressure 98/74 L Pulse Oximetry 100 Oxygen Delivery Room Air Exam Narrative: Patient is sleepy but when awoken she seems to be smiling and pleasant. No aphasia or dysarthria. The seems to some perseveration. Upon questioning she could name only 3/5 colors. When asked to name 5 cities she could name only 2/5 cities. She just does not seem to be interested in participating. When asked to touch her left ear with right hand she was unable to follow the instruction. Head and neck no evidence of external trauma no nuchal rigidity no carotid bruit. Cranial nerves on individual testing show pupils were equal and reactive to light. VisualFields by confrontation were normal. There is no facial asymmetry. Tongue was midline. Other cranial for normal limits. Motor system moving both upper and lower limbs. Deep tendon reflexes were decreased but no asymmetry. Plantars were downgoing. Sensory examination symmetric to touch on both sides. No involuntary movements were seen at this time. Results Labs 08/15/24 06:50 08/15/24 06:50 Labs: Short CBC 08/15/24 Range/Units 06:50 WBC 8.7 (4.5-10.0) K/mm3 Hgb 9.4 L (12.0-15.0) g/dL Hct 31.3 L (37.0-47.0) % Plt Count 349 (150-375) k/mm3 BMP 08/15/24 06:50 Sodium 138 Potassium 3.6 Chloride 99 Carbon Dioxide 37 H BUN 34 H D Creatinine 1.80 H Glucose 78 Calcium 9.4 Liver Function 08/15/24 Range/Units 06:50 Total Bilirubin 0.3 (0.2-1.3) mg/dL AST 19 (14-36) U/L ALT 16 (6-35) U/L Alkaline Phosphatase 171 H (38-126) U/L Albumin 3.4 L (3.5-5.1) g/dL
[2024-08-15] MEDS: AMOXICILLIN/CLAVULANATE K 875-125 MG TAB 1 TABLET PO ×2 (12:35→21:29)
[2024-08-15] MEDS: DOXYCYCLINE HYCLATE 100 MG TABLET PO ×2 (12:35→21:29)
--- NOTE | 2024-08-15 14:01 | P.PNIM_ITS ---
Progress Note: A&P Assessment and Plan (1) Acute respiratory failure with hypoxia: Code(s): J96.01 - Acute respiratory failure with hypoxia Status: Acute Assessment and Plan: Per chart review, according to EMS her SpO2 was 84% on room air and she was placed on a non-rebreather at 15 L with some improvement. Baseline RA. Likely secondary to CHF exacerbation. - Back to baseline RA - Wean as tolerated for SpO2 > 90 08/11- will order chest xray since oxygen requirements increased atelectasis vs pneumonia- will treat as pneumonia in setting increased oxygen demands and confusion. ON room air but still short of breath with any exertion -08/15 continues to be on room air (2) CHF exacerbation: Code(s): I50.9 - Heart failure, unspecified Status: Deleted Assessment and Plan: - Symptoms: shortness of breath with BLE edema and orthopnea She was having some chest discomfort with increased work of breathing earlier -but it is all resolved Pulmonary embolism seems less likely as she is on chronic anticoagulation. - Current medications: Bumex 1 mg IV daily - BNP: 1560 - EKG: without ST segment changes and troponin has been negative x2. - Chest XR: Interstitial prominence suggesting pneumonitis or pulmonary interstitial edema. Possible minimal pleural effusions. Normal heart size. Coronary stent - Chest CT: Moderate interstitial pulmonary edema. Trace bilateral pleural effusions. - Echo 04/08/2024: LVEF 65-70% with grade I diastolic dysfunction - Monitor vital signs, I&Os, BUN/creatinine, daily weights, neuro status and patient is a fall risk - Monitor serum electrolytes, Keep serum Potassium>4 and serum Magnesium>2 and CBC 08/11- will consult cardiology for help with chf/afib mngmnt 08/12 possible rt heart cath tomorrow 08/13- per card. :Change Bumex to I mg b.i.d. and continue metolazone- continue to monitor bmp,i/o I/O reviewed- in 612/out 3700 -3030 need to ensure better po intake- boost supplements if needed 08/15 vs reviewed, leg swelling improved (3) Acute kidney injury superimposed on chronic kidney disease: Code(s): N17.9 - Acute kidney failure, unspecified; N18.9 - Chronic kidney disease, unspecified Status: Acute Assessment and Plan: Per nephrology note on 07/29, baseline creatinine fluctuates to extremes -- anywhere from 1.6 - 2.4mg/dl (in the last year) - BUN/Cr 53/3.7 on am labs - Worsening Cr likely related to patients ongoing diuresis for CHF exacerbation (Bumex made daily instead of BID) vs overcontrol of her BP per nephrology note consider having BP range closer to 150s systolic - Monitor renal function and I/O - Avoid nephrotoxic medications - Renally dose medications - Nephrology consulted, appreciate recommendations kidney function stable (4) Anemia: Qualifiers: Anemia type: unspecified type Qualified Code(s): D64.9 - Anemia, unspecified Code(s): D64.9 - Anemia, unspecified Status: Acute Assessment and Plan: Iron low -started on iron supplementation - f/u with pcp in 2-3 month for recheck (5) Coronary artery disease: Code(s): I25.10 - Atherosclerotic heart disease of [place] coronary artery without angina pectoris Status: Acute Assessment and Plan: Chronic, continue home medications. (6) Type 2 diabetes mellitus with hyperglycemia, with long-term current use of insulin: Code(s): E11.65 - Type 2 diabetes mellitus with hyperglycemia; Z79.4 - MCFP (current) use of insulin Status: Chronic Assessment and Plan: home insulin toujeo- 45 units at hs, ss14 units of lispro Continue basal insulin. Initiate sliding scale insulin, Accu-Cheks, and hypoglycemic protocol. will decrease lantus this am- 20 units (from 40) as few lower readings in am, protein snacks at hs-monitor 8- bs low thsi am- will hold lantus until PO intake improves (7) Obstructive sleep apnea on CPAP: Code(s): G47.33 - Obstructive sleep apnea (adult) (pediatric); Z99.89 - Dependence on other enabling machines and devices Status: Chronic Assessment and Plan: Does not use CPAP at home. ABG ordered. (8) Hypothyroidism (acquired): Code(s): E03.9 - Hypothyroidism, unspecified Status: Acute Assessment [place]: [place] [id number] currently on 75 mcg levothyroxine Will increase to 100 mcg on 08/07 and will need TSH recheck in 6-8 weeks as an outtpt- mid to end of October (9) Urinary tract infection: Code(s): N39.0 - Urinary tract infection, site not specified Status: Acute Assessment and Plan: ua was collected yesterday due to increased confusion. start cefepime to cover uti/pneumonia monitor for ua culture results to narrow antibiotics down pharmacy to renally dose (10) Altered mental status: Qualifiers: Altered mental status type: unspecified Qualified Code(s): R41.82 - Altered mental status, unspecified Code(s): R41.82 - Altered mental status, unspecified Status: Resolved Assessment and Plan: ua was collected,chest xray done to rule out any infectious couses - son states that pt has problems with normal activities like eating-and has episodes of confusion, ?blanking out -will order ct head and consult neurology for eval Plan will order miralax/colace as unsure when last BM was Time Spent With Patient Time with patient: Greater than 35 minutes Subjective Date/time seen: 08/15/24 14:01 Interval history: 08/15 seen and examined. Eating fine still somewhat diminished appetite. neurology saw her- adjustments to meds are done. if stable over nigh and rehab is found- will anticipate discharge to SNF. Review of Systems Review of Systems: 12 systems were reviewed and are negativ e except for as per HPI. Exam Narrative: General: female in no acute respiratory distress who is nontoxic appearing, lying semi recumbent in bed. HEENT: Normocephalic. Atraumatic. Extraocular movement intact. Sclera clear and anicteric. No facial asymmetry. Chest: Lungs are diminished to auscultation bilaterally with lower base crac kles. No wheezes. CV: Heart was regular rate and rhythm. S1-S2. No murmurs, gallops, or rubs. Abd: Abdomen was soft. Nontender. Nondistended. Positive bowel sounds. No organomegaly or masses. Ext: No clubbing, cyanosis, edema improved. 2+ DP pulses bilaterally. Neuro: Patient is alert and oriented x3 (person, place, year).somewhat slow to answer but able. Cranial nerves 2-12 are intact. Speech is clear. Objective Data Vital Signs Vital Signs: Vital Signs - 24 hr 08/14/24 16:00 08/14/24 20:00 08/14/24 20:13 Temperature 97.3 F L Pulse Rate 111 H 74 110 H Respiratory Rate 12 Blood Pressure 106/85 130/87 Pulse Oximetry 99 97 Oxygen Delivery 08/14/24 21:12 08/14/24 21:13 08/14/24 22:00 Temperature 97.0 F L Pulse Rate 68 68 103 H Respiratory Rate 24 H Blood Pressure 117/86 Pulse Oximetry 98 Oxygen Delivery 08/14/24 20:00 08/14/24 20:00 08/15/24 00:00 Temperature Pulse Rate 110 H 109 H Respiratory Rate Blood Pressure Pulse Oximetry Oxygen Delivery Room Air 08/15/24 04:00 08/15/24 06:00 08/15/24 09:47 Temperature 97.1 F L Pulse Rate 112 H 110 H 110 H Respiratory Rate 22 H Blood Pressure 147/94 H Pulse Oximetry 98 Oxygen Delivery 08/15/24 08:00 08/15/24 08:00 Temperature 97.9 F Pulse Rate 68 Respiratory Rate 18 Blood Pressure 98/74 L Pulse Oximetry 100 Oxygen Delivery Room Air Intake/Output Intake/Output: Intake & Output 08/12/24 08/13/24 08/14/24 08/15/24 23:59 23:59 23:59 23:59 Intake Total 1520 1002 630 780 Output Total 1850 2150 1000 1450 [facility] [phone] Meds/Results Medications: Active Medications Generic Name Dose Route Start Last Admin Trade Name Freq PRN Reason Stop Dose Admin Acetaminophen 650 mg 08/06/24 22:10 08/14/24 19:22 Acetaminophen 325 Mg Tablet PO 650 mg Q6H PRN Administration Mild Pain (1-3) or Fever Allopurinol 100 mg 08/07/24 09:00 08/15/24 09:47 Allopurinol 100 Mg Tablet PO 100 mg DAILY NICOLE Administration Amiodarone HCl 200 mg 08/06/24 21:15 08/14/24 21:12 Amiodarone Hcl 200 Mg Tablet PO 200 mg HS NICOLE Administration Amoxicillin/Clavulanate Potassium 1 tablet 08/15/24 12:15 08/15/24 12:35 Amoxicillin/Clavulanate K 875-125 Mg Tab PO 08/18/24 21:01 1 tablet Q12HR NICOLE Administration Apixaban 5 mg 08/06/24 21:20 08/12/24 09:51 Apixaban 5 Mg Tablet PO 5 mg Q12HR NICOLE Administration Bumetanide 1 mg 08/15/24 09:00 08/15/24 09:47 Bumetanide 1 Mg Tablet PO 1 mg DAILY NICOLE Administration Bupropion HCl 150 mg 08/07/24 09:00 08/15/24 09:46 Bupropion Hcl Xl (24 Hr) 150 Mg Tabcr PO 150 mg DAILY NICOLE Administration Buspirone HCl 15 mg 08/07/24 09:00 08/15/24 09:47 Buspirone Hcl 5 Mg Tablet PO 15 mg DAILY NICOLE Administration Calcium Carbonate 500 mg 08/07/24 09:00 08/15/24 09:46 Calcium/Vitamin D 500 Mg/5 Mcg (200 I.U.) Tablet PO 500 mg QAM NICOLE Administration Carvedilol 6.25 mg 08/14/24 09:00 08/15/24 09:47 Carvedilol 6.25 Mg Tablet PO 6.25 mg Q12HR NICOLE Administration Dextrose 12.5 gm 08/06/24 22:10 Dextrose 50% 25 Gm/50 Ml Syringe IV PUSH PRN PRN Hypoglycemia Protocol Divalproex Sodium 500 mg 08/06/24 21:50 08/14/24 21:11 Divalproex Sodium Er 500 Mg Tab.24h PO 500 mg HS NICOLE Administration Docusate Sodium 100 mg 08/14/24 13:40 Docusate Sodium 100 Mg Capsule PO Q12H PRN Constipation Doxycycline Hyclate 100 mg 08/15/24 12:15 08/15/24 12:35 Doxycycline Hyclate 100 Mg Tablet PO 08/19/24 21:01 100 mg Q12HR NICOLE Administration Epoetin Ajit-epbx 10,000 units 08/13/24 09:00 08/13/24 08:57 Epoetin Ajit-Epbx 10,000 Units/Ml Vial SUB-Q 10,000 units TUTHSA@09 NICOLE Administration Famotidine 20 mg 08/06/24 21:20 08/14/24 21:13 Famotidine 20 Mg Tablet PO 20 mg HS NICOLE Administration Ferrous Sulfate 142 mg 08/08/24 08:00 08/15/24 09:46 Ferrous Sulfate Dried 142 Mg Tabcr PO 142 mg DAILY@0800 NICOLE Administration Glucagon 1 mg 08/06/24 22:10 Glucagon For Inj 1 Mg Vial IM PRN PRN Hypoglycemia Protocol Glucose 15 gm 08/06/24 22:10 Glucose Oral Gel 15 Gm Of Glucse In 37.5 Gm Tube PO PRN PRN Hypoglycemia Protocol Dextrose 1,000 mls @ 100 mls/hr 08/06/24 22:10 Dextrose 5% 1,000 Ml IVPB PRN PRN Hypoglycemia Protocol Insulin Aspart 3 - 6 units 08/07/24 08:00 08/15/24 11:49 Insulin Aspart (*Bkc) 100 Units/Ml SUB-Q Not Given TIDWM NICOLE Protocol Insulin Aspart 1 - 3 units 08/07/24 21:00 08/14/24 21:14 Insulin Aspart (*Bkc) 100 Units/Ml SUB-Q Not Given HS NICOLE Protocol Insulin Glargine 20 units 08/13/24 09:00 08/15/24 09:50 Insulin Glargine (*Bkc) 100 Units/Ml SUB-Q Not Given DAILY [facility] Isosorbide Dinitrate 5 mg 08/09/24 21:00 08/15/24 09:47 Isosorbide Dinitrate 5 Mg Tablet PO 5 mg Q12HR NICOLE Administration Levothyroxine Sodium 100 mcg 08/08/24 06:30 08/15/24 06:00 Levothyroxine Sodium 100 Mcg Tablet PO 100 mcg DAILY@0630 NICOLE Administration Memantine 10 mg 08/06/24 21:15 08/15/24 09:49 Memantine 10 Mg Tablet PO 10 mg Q12HR NICOLE Administration Miscellaneous Information 1 each 08/06/24 00:01 08/12/24 00:03 Evolocumab [Repatha Sureclick] 140 Mg/Ml Pen Injector) Is Nonformulary, Can Patient Bring XX 09/05/24 00:00 Not Given CLARIFY [facility] Miscellaneous Information 1 each 08/06/24 00:01 08/12/24 00:03 (Trospium 20 Mg Tablet) Is Nonformulary, Can Patient Bring From Home? XX 09/05/24 00:00 Not Given CLARIFY [facility] Multivitamins/Minerals 1 tablet 08/07/24 09:00 08/15/24 09:49 Opti-Gen Tab PO 1 tablet Q12HR NICOLE Administration Mupirocin 1 applic 08/07/24 09:00 08/15/24 09:49 Mupirocin 2% Oint 22 Gm Tube TOPICAL 1 applic BID [facility] Administration Non-Formulary Medication 140 mg 08/06/24 21:15 Evolocumab [Repatha Sureclick] SUB-Q 09/05/24 21:14 Q14D [facility] Non-Formulary Medication 14 unit 08/06/24 21:15 Insulin Lispro [Humalog Kwikpen Insulin] SUB-Q 09/05/24 21:14 .tidac [facility] Non-Formulary Medication 20 mg 08/06/24 21:15 Trospium PO 09/05/24 21:14 Q12H NICOLE Nystatin 1 applic 08/06/24 21:12 Nystatin Ointment 15 Gm Tube TOPICAL BID PRN Rash Pantoprazole Sodium 40 mg 08/07/24 09:00 08/15/24 09:46 Pantoprazole 40 Mg Tablet PO 40 mg Q12HR NICOLE Administration Polyethylene Glycol 17 gm 08/14/24 13:40 Polyethylene Glycol 3350 17 Gm Powd.Pack PO QAM PRN Constipation Venlafaxine HCl 75 mg 08/07/24 09:00 08/15/24 09:47 Venlafaxine Hcl 75 Mg Tablet BY MOUTH 75 mg Q12HR NICOLE Administration Venlafaxine HCl 50 mg 08/07/24 09:00 08/15/24 09:46 Venlafaxine Hcl 25 Mg Tablet BY MOUTH 50 mg Q12HR NICOLE Administration Vitamin B Complex 1 cap 08/07/24 09:00 08/15/24 09:47 Vitamin B Complex Capsule PO 1 cap DAILY NICOLE Administration Radiology Results: ITS Impressions Chest CT 08/06/24 15:17 IMPRESSION: Moderate interstitial pulmonary edema. Trace bilateral pleural effusions. Renal Ultrasound 08/09/24 13:35 IMPRESSION: 1. Normal kidneys. No hydronephrosis. Chest X-Ray 08/11/24 13:18 IMPRESSION: 1. Airspace opacities in the lower lung zones with worsening on the left, consistent with atelectasis versus pneumonia. 2. Worsened small pleural effusions. Head CT 08/13/24 20:44 IMPRESSION: 1. Normal aging brain. Labs Labs: Laboratory Results - last 24 hr 08/14/24 08/14/24 08/15/24 16:07 20:29 05:22 WBC RBC Hgb Hct MCV MCH MCHC RDW Plt Count MPV Immature Gran % (Auto) Neut % (Auto) Lymph % (Auto) Alexander % (Auto) Eos % (Auto) Baso % (Auto) Lymph # (Auto) Alexander # (Auto) Eos # (Auto) Baso # (Auto) Abs Immat Gran (auto) Absolute Neuts (auto) Absolute Nucleated RBC Nucleated RBC % Sodium Potassium Chloride Carbon Dioxide Anion Gap BUN Creatinine Estim Creat Clear Calc Estimated GFR Glucose POC Capillary Glucose 121 H 109 H 78 Calcium Phosphorus Magnesium Total Bilirubin AST ALT Alkaline Phosphatase Total Protein Albumin 08/15/24 08/15/24 08/15/24 06:50 07:52 11:40 WBC 8.7 RBC 3.46 L Hgb 9.4 L Hct 31.3 L MCV 90.5 MCH 27.2 MCHC 30.0 L RDW 17.0 H Plt Count 349 MPV 9.5 Immature Gran % (Auto) 0.3 Neut % (Auto) 67.6 Lymph % (Auto) 21.2 Alexander % (Auto) 4.9 Eos % (Auto) 5.2 H Baso % (Auto) 0.8 Lymph # (Auto) 1.84 Alexander # (Auto) 0.4 Eos # (Auto) 0.5 H Baso # (Auto) 0.1 Abs Immat Gran (auto) 0.03 Absolute Neuts (auto) 5.9 Absolute Nucleated RBC 0.000 Nucleated RBC % 0.0 Sodium 138 Potassium 3.6 Chloride 99 Carbon Dioxide 37 H Anion Gap 2 L BUN 34 H D Creatinine 1.80 H Estim Creat Clear Calc 31 Estimated GFR 27 L Glucose 78 POC Capillary Glucose 78 126 H Calcium 9.4 Phosphorus 2.6 Magnesium 2.1 Total Bilirubin 0.3 AST 19 ALT 16 Alkaline Phosphatase 171 H Total Protein 7.0 Albumin 3.4 L Quality VTE Prophylaxis VTE prophylaxis: pharmacologic ordered (on apixaban)
[2024-08-15 17:10] LABS: Glucose Point of Care 221 mg/dl (65-105)
[2024-08-15] MEDS: INSULIN ASPART (*BKC) 100 UNITS/ML SUB-Q (17:32)
[2024-08-15 20:52] LABS: Glucose Point of Care 196 mg/dl (65-105)
[2024-08-15] MEDS: DIVALPROEX SODIUM ER 500 MG TAB.24H PO (21:29)
[2024-08-15] MEDS: AMIODARONE HCL 200 MG TABLET PO (21:29)
[2024-08-15] MEDS: FAMOTIDINE 20 MG TABLET PO (21:29)
[2024-08-16] VITALS (13 sets, daily range): BP systolic 127–146; BP diastolic 71–93; PULSE 63–120; RESP 12–22; TEMP 35.9–36.4; O2SAT 95–99
[2024-08-16 00:34] LABS: Red Blood Cell Folate 948 ng/mL RBC (>280)
[2024-08-16] MEDS: LEVOTHYROXINE SODIUM 100 MCG TABLET PO (05:30)
[2024-08-16 07:29] LABS: Basophils Absolute Auto 0.1 K/mm3 (0.0-0.1); Basophils Percent Auto 0.7 % (0.2-1.2); Eosinophils Absolute Auto 0.5 K/mm3 (0-0.3); Eosinophils Percent Auto 5.2 % (0-4.4); Hematocrit 32.3 % (37.0-47.0); Hemoglobin 9.8 g/dL (12.0-15.0); Immature Granulocyte Absolute 0.03 K/mm3 (0.00-0.031); Immature Granulocyte Percent A 0.3 % (0-0.5); Lymphocytes Absolute Auto 1.52 K/mm3 (0.9-3.2); Lymphocytes Percent Auto 17.6 % (18.3-44.2); Mean Corpuscular HGB Conc 30.3 g/dl (32-36); Mean Corpuscular Hemoglobin 27.1 pg (26-34); Mean Corpuscular Volume 89.5 fl (80-100); Mean Platelet Volume 9.3 fl (7.4-10.4); Monocytes Absolute Auto 0.6 K/mm3 (0.1-0.6); Monocytes Percent Auto 6.8 % (2.6-8.5); Neutrophils Percent Auto 69.4 % (45.5-73.1); Nucleated Red Blood Cells Perc 0.3 % (0.0-0.2); Platelet Count Result 348 k/mm3 (150-375); Red Blood Count 3.61 M/mm3 (4.2-5.4); Red Cell Distribution Width 16.9 % (11.5-14.5); White Blood Count 8.6 K/mm3 (4.5-10.0)
[2024-08-16 07:46] LABS: Alanine Aminotransferase 15 U/L (6-35); Albumin Level 3.3 g/dL (3.5-5.1); Alkaline Phosphatase 156 U/L (38-126); Anion Gap 1 mmol/L (4-12); Aspartate Amino Transferase 19 U/L (14-36); Bilirubin,Total 0.4 mg/dL (0.2-1.3); Blood Urea Nitrogen 30 mg/dL (7-17); Calcium 9.3 mg/dL (8.4-10.2); Carbon Dioxide 38 mmol/L (22-30); Chloride 97 mmol/L (98-107); Estimated CRCL calculation 27 ml/min; Estimated Glomerular Filt Rate 24; Glucose 177 mg/dL (65-110); Phosphorus 2.4 mg/dL (2.5-4.5); Potassium 4.1 mmol/L (3.4-5.0); Sodium 136 mmol/L (137-145)
[2024-08-16 07:59] LABS: Glucose Point of Care 195 mg/dl (65-105)
[2024-08-16] MEDS: ISOSORBIDE DINITRATE 5 MG TABLET PO ×2 (08:05→20:23)
[2024-08-16] MEDS: busPIRone HCL 5 MG TABLET 15 MG PO (08:05)
[2024-08-16] MEDS: CALCIUM/VITAMIN D 500 MG/5 MCG (200 I.U.) TABLET PO (08:06)
[2024-08-16] MEDS: FERROUS SULFATE DRIED 142 MG TABCR PO (08:06)
[2024-08-16] MEDS: carvediloL 6.25 MG TABLET PO ×2 (08:06→20:25)
[2024-08-16] MEDS: BUMETANIDE 1 MG TABLET PO (08:06)
[2024-08-16] MEDS: OPTI-GEN TAB 1 TABLET PO ×2 (08:06→20:26)
[2024-08-16] MEDS: VENLAFAXINE HCL 25 MG TABLET 50 MG BY MOUTH ×2 (08:09→20:23)
[2024-08-16] MEDS: AMOXICILLIN/CLAVULANATE K 875-125 MG TAB 1 TABLET PO ×2 (08:09→20:26)
[2024-08-16] MEDS: PANTOPRAZOLE 40 MG TABLET PO ×2 (08:10→20:26)
[2024-08-16] MEDS: VENLAFAXINE HCL 75 MG TABLET BY MOUTH ×2 (08:10→20:25)
[2024-08-16] MEDS: MEMANTINE 10 MG TABLET PO ×2 (08:10→20:25)
[2024-08-16] MEDS: VITAMIN B COMPLEX CAPSULE 1 CAP PO (08:10)
[2024-08-16] MEDS: DOXYCYCLINE HYCLATE 100 MG TABLET PO ×2 (08:10→20:26)
[2024-08-16] MEDS: allopurinoL 100 MG TABLET PO (08:10)
[2024-08-16] MEDS: buPROPion HCL XL (24 HR) 150 MG TABCR PO (08:10)
[2024-08-16] MEDS: EPOETIN ALFA-EPBX 10,000 UNITS/ML VIAL 10000 UNITS SUB-Q (08:14)
[2024-08-16] MEDS: MUPIROCIN 2% OINT 22 GM TUBE 1 APPLIC TOPICAL ×2 (08:14→17:06)
[2024-08-16 11:35] LABS: Glucose Point of Care 323 mg/dl (65-105)
--- NOTE | 2024-08-16 11:46 | P.PNNP_ITS ---
Progress Note: A&P Assessment and Plan (1) ALBERTINA (acute kidney injury): Code(s): N17.9 - Acute kidney failure, unspecified Status: Acute Assessment and Plan: * slow improvement noted with ongoing therapy * elevated on admission (but close to what it was on last hospital discharge) * worsening noted during this hospitalization after admission * however, improvement noted at this time * holding diuretics on last hospitalization resulted in only mild improvement in renal function (and may have precipitated re-admission) * evaluation noted: * renal u/s normal * CPK slightly elevated (but not likely to affect kidney function) * urine electrolytes prerenal * UA negative for infection by culture * moderate proteinuria * follow trend of repeat labs and UOP (2) Chronic kidney disease, stage IV (severe): Code(s): N18.4 - Chronic kidney disease, stage 4 (severe) Status: Chronic Assessment and Plan: * baseline creatinine fluctuates to extremes -- anywhere from 1.6 - 2.4mg/dl (in the last year) * this causes her to fluctuate between CKD stage 3b and stage 4 * due to her hypertension, diabetes, obstructive sleep apnea, gout, diastolic heart failure + diuretics, and age-related change * this may be a situation where we have to accept a higher creatinine to maintain her volume status... (3) Acute on chronic diastolic heart failure: Code(s): I50.33 - Acute on chronic diastolic (congestive) heart failure Status: Deleted Assessment and Plan: * improvement noted * as noted by presentation to the ER: * bilateral LE edema + SOB + orthopnea * BNP: 1560 * admission CXR with nterstitial prominence suggesting pneumonitis or pulmonary interstitial edema. Possible minimal pleural effusions * chest CT with moderate interstitial pulmonary edema and trace bilateral pleural effusions * on IV diuretics * trial dose of metolazone x 3 days with reasonable response * Cardiology following * follow respiratory status (4) Hypertension: Qualifiers: Hypertension type: unspecified Qualified Code(s): I10 - Essential (primary) hypertension Code(s): I10 - Essential (primary) hypertension Status: Chronic Assessment and Plan: * reasonable control at this time * follow trend of hemodynamics (5) Paroxysmal atrial fibrillation: Code(s): I48.0 - Paroxysmal atrial fibrillation Status: Chronic Assessment and Plan: * rate control strategy * on anticoagulation (6) Anemia: Qualifiers: Anemia type: unspecified type Qualified Code(s): D64.9 - Anemia, unspecified Code(s): D64.9 - Anemia, unspecified Status: Acute Assessment and Plan: * partly related to CKD along with ALBERTINA and acute illness * Retacrit 3x/week while hospitalized * PRBC transfusion per protocol * follow trend of H/H (7) Type 2 diabetes mellitus: Code(s): E11.9 - Type 2 diabetes mellitus without complications Status: Acute Assessment and Plan: * follow accu-cheks * glycemic control per hospitalists Will continue to follow. Subjective Date/time seen: 08/16/24 11:46 Interval history: Follow-up for acute kidney injury/acute renal failure on chronic kidney disease. Apparently slipped on to floor from chair earlier but apparent injury noted; renal function/creatinine appears relatively stable at this time with reasonable urine output; mentation seems to fluctuate -- seen by Neurology yesterday with recommendations noted; no apparent distress voiced at the time of my visit. Exam 2 Narrative: General: elderly but WD/WN female in NAD Heart: normal S1 and S2; no rub Lungs: clear anteriorly; decreased at bases Abdomen: soft, nontender, nondistended, positive bowel sounds Extremities: no cyanosis or clubbing; trace edema Skin: no rash Objective Data Vital Signs Vital Signs: Vital Signs Temp Pulse Resp BP Pulse Ox O2 Del Method 08/16/24 11:40 118 H 08/16/24 10:27 96.9 F L 63 146/72 H 98 08/16/24 08:06 111 H 08/16/24 08:00 108 H 08/16/24 08:00 Room Air 08/16/24 05:40 96.7 F L 86 18 133/82 96 08/16/24 01:51 97.1 F L 120 H 12 141/74 H 95 08/16/24 00:00 108 H 08/15/24 22:20 60 21 H 96 Autopap 08/15/24 21:29 120 H 08/15/24 21:29 120 H 08/15/24 20:45 97.4 F L 120 H 20 171/108 H 98 08/15/24 20:45 97.4 F L 86 26 H 149/80 H 99 08/15/24 20:00 115 H 08/15/24 20:00 Room Air Intake/Output Intake/Output: Intake & Output 08/13/24 08/14/24 08/15/24 08/16/24 23:59 23:59 23:59 23:59 Intake Total 1162 151 9248 1590 Output Total 2150 1000 2851 1900 [id number] [phone] Meds/Results Medications: Active Medications Generic Name Dose Route Start Last Admin Trade Name Freq PRN Reason Stop Dose Admin Acetaminophen 650 mg 08/06/24 22:10 08/14/24 19:22 Acetaminophen 325 Mg Tablet PO 650 mg Q6H PRN Administration Mild Pain (1-3) or Fever Allopurinol 100 mg 08/07/24 09:00 08/16/24 08:10 Allopurinol 100 Mg Tablet PO 100 mg DAILY NICOLE Administration Amiodarone HCl 200 mg 08/06/24 21:15 08/15/24 21:29 Amiodarone Hcl 200 Mg Tablet PO 200 mg HS NICOLE Administration Amoxicillin/Clavulanate Potassium 1 tablet 08/15/24 12:15 08/16/24 08:09 Amoxicillin/Clavulanate K 875-125 Mg Tab PO 08/18/24 21:01 1 tablet Q12HR NICOLE Administration Apixaban 5 mg 08/06/24 21:20 08/12/24 09:51 Apixaban 5 Mg Tablet PO 5 mg Q12HR NICOLE Administration Bumetanide 1 mg 08/15/24 09:00 08/16/24 08:06 Bumetanide 1 Mg Tablet PO 1 mg DAILY NICOLE Administration Bupropion HCl 150 mg 08/07/24 09:00 08/16/24 08:10 Bupropion Hcl Xl (24 Hr) 150 Mg Tabcr PO 150 mg DAILY NICOLE Administration Buspirone HCl 15 mg 08/07/24 09:00 08/16/24 08:05 Buspirone Hcl 5 Mg Tablet PO 15 mg DAILY NICOLE Administration Calcium Carbonate 500 mg 08/07/24 09:00 08/16/24 08:06 Calcium/Vitamin D 500 Mg/5 Mcg (200 I.U.) Tablet PO 500 mg QAM NICOLE Administration Carvedilol 6.25 mg 08/14/24 09:00 08/16/24 08:06 Carvedilol 6.25 Mg Tablet PO 6.25 mg Q12HR NICOLE Administration Dextrose 12.5 gm 08/06/24 22:10 Dextrose 50% 25 Gm/50 Ml Syringe IV PUSH PRN PRN Hypoglycemia Protocol Divalproex Sodium 500 mg 08/06/24 21:50 08/15/24 21:29 Divalproex Sodium Er 500 Mg Tab.24h PO 500 mg HS NICOLE Administration Docusate Sodium 100 mg 08/14/24 13:40 Docusate Sodium 100 Mg Capsule PO Q12H PRN Constipation Doxycycline Hyclate 100 mg 08/15/24 12:15 08/16/24 08:10 Doxycycline Hyclate 100 Mg Tablet PO 08/19/24 21:01 100 mg Q12HR NICOLE Administration Epoetin Ajit-epbx 10,000 units 08/13/24 09:00 08/16/24 08:14 Epoetin Ajit-Epbx 10,000 Units/Ml Vial SUB-Q 10,000 units TUTHSA@09 NICOLE Administration Famotidine 20 mg 08/06/24 21:20 08/15/24 21:29 Famotidine 20 Mg Tablet PO 20 mg HS NICOLE Administration Ferrous Sulfate 142 mg 08/08/24 08:00 08/16/24 08:06 Ferrous Sulfate Dried 142 Mg Tabcr PO 142 mg DAILY@0800 NICOLE Administration Glucagon 1 mg 08/06/24 22:10 Glucagon For Inj 1 Mg Vial IM PRN PRN Hypoglycemia Protocol Glucose 15 gm 08/06/24 22:10 Glucose Oral Gel 15 Gm Of Glucse In 37.5 Gm Tube PO PRN PRN Hypoglycemia Protocol Dextrose 1,000 mls @ 100 mls/hr 08/06/24 22:10 Dextrose 5% 1,000 Ml IVPB PRN PRN Hypoglycemia Protocol Insulin Aspart 3 - 6 units 08/07/24 08:00 08/16/24 17:06 Insulin Aspart (*Bkc) 100 Units/Ml SUB-Q 4 units TIDWM NICOLE Administration Protocol Insulin Aspart 1 - 3 units 08/07/24 21:00 08/15/24 21:30 Insulin Aspart (*Bkc) 100 Units/Ml SUB-Q Not Given HS [facility] Protocol Insulin Glargine 10 units 08/16/24 10:45 Insulin Glargine (*Bkc) 100 Units/Ml SUB-Q DAILY [facility] Isosorbide Dinitrate 5 mg 08/09/24 21:00 08/16/24 08:05 Isosorbide Dinitrate 5 Mg Tablet PO 5 mg Q12HR NICOLE Administration Levothyroxine Sodium 100 mcg 08/08/24 06:30 08/16/24 05:30 Levothyroxine Sodium 100 Mcg Tablet PO 100 mcg DAILY@0630 NICOLE Administration Memantine 10 mg 08/06/24 21:15 08/16/24 08:10 Memantine 10 Mg Tablet PO 10 mg Q12HR NICOLE Administration Miscellaneous Information 1 each 08/06/24 00:01 08/12/24 00:03 Evolocumab [Repatha Sureclick] 140 Mg/Ml Pen Injector) Is Nonformulary, Can Patient Bring XX 09/05/24 00:00 Not Given CLARIFY NICOLE Miscellaneous Information 1 each 08/06/24 00:01 08/12/24 00:03 (Trospium 20 Mg Tablet) Is Nonformulary, Can Patient Bring From Home? XX 09/05/24 00:00 Not Given CLARIFY [facility] Multivitamins/Minerals 1 tablet 08/07/24 09:00 08/16/24 08:06 Opti-Gen Tab PO 1 tablet Q12HR NICOLE Administration Mupirocin 1 applic 08/07/24 09:00 08/16/24 17:06 Mupirocin 2% Oint 22 Gm Tube TOPICAL 1 applic BID NICOLE Administration Non-Formulary Medication 140 mg 08/06/24 21:15 Evolocumab [Repatha Sureclick] SUB-Q 09/05/24 21:14 Q14D NICOLE Non-Formulary Medication 14 unit 08/06/24 21:15 Insulin Lispro [Humalog Kwikpen Insulin] SUB-Q 09/05/24 21:14 .tidac NICOLE Non-Formulary Medication 20 mg 08/06/24 21:15 Trospium PO 09/05/24 21:14 Q12H NICOLE Nystatin 1 applic 08/06/24 21:12 Nystatin Ointment 15 Gm Tube TOPICAL BID PRN Rash Pantoprazole Sodium 40 mg 08/07/24 09:00 08/16/24 08:10 Pantoprazole 40 Mg Tablet PO 40 mg Q12HR NICOLE Administration Polyethylene Glycol 17 gm 08/14/24 13:40 Polyethylene Glycol 3350 17 Gm Powd.Pack PO QAM PRN Constipation Venlafaxine HCl 75 mg 08/07/24 09:00 08/16/24 08:10 Venlafaxine Hcl 75 Mg Tablet BY MOUTH 75 mg Q12HR NICOLE Administration Venlafaxine HCl 50 mg 08/07/24 09:00 08/16/24 08:09 Venlafaxine Hcl 25 Mg Tablet BY MOUTH 50 mg Q12HR NICOLE Administration Vitamin B Complex 1 cap 08/07/24 09:00 08/16/24 08:10 Vitamin B Complex Capsule PO 1 cap DAILY NICOLE Administration Radiology Results: ITS Impressions Chest CT 08/06/24 15:17 IMPRESSION: Moderate interstitial pulmonary edema. Trace bilateral pleural effusions. Renal Ultrasound 08/09/24 13:35 IMPRESSION: 1. Normal kidneys. No hydronephrosis. Chest X-Ray 08/11/24 13:18 IMPRESSION: 1. Airspace opacities in the lower lung zones with worsening on the left, consistent with atelectasis versus pneumonia. 2. Worsened small pleural effusions. Head CT 08/13/24 20:44 IMPRESSION: 1. Normal aging brain. Labs Labs: Laboratory Tests 08/16/24 06:53 08/16/24 06:53 Calcium 9.3 Phosphorus 2.4 L Magnesium 2.0 Total Bilirubin 0.4 AST 19 ALT 15 Alkaline Phosphatase 156 H Total Protein 7.0 Albumin 3.3 L
[2024-08-16] MEDS: INSULIN ASPART (*BKC) 100 UNITS/ML SUB-Q ×3 (12:47→21:24)
--- NOTE | 2024-08-16 14:39 | WPDNEUROLOGY ---
Neurology EEG Report General Information Date of Study: 08/16/24 TEST Eeg DIAGNOSIS change in the mental status. CONDITION OF RECORDING Awake, drowsy and asleep. EEG NUMBER [id number] CLINICAL HISTORY patient is not sure why she is in the hospital but the study was done during her wakefulness drowsiness and sleep. EEG DESCRIPTION Whole record consists of low to medium voltage 3 to 4 hertz per 2nd delta activity with mixture of 6 to 7 hertz per 2nd theta activity. Bihemispheric spindles are seen during sleep intermittentl. Extremely low voltage activity is noted to the point of no activity for at least 3 to 4 seconds intermittently. IMPRESSION Abnormal record due to the presence of bihemispheric theta and delta activity with periods of low-voltage cortical activity. These abnormalities are suggestive of organic or metabolic encephalopathy or as neuro degenerative process. Clinical correlation recommended.
--- NOTE | 2024-08-16 14:56 | P.PNIM_ITS ---
Progress Note: A&P Assessment and Plan (1) Acute respiratory failure with hypoxia: Code(s): J96.01 - Acute respiratory failure with hypoxia Status: Acute Assessment and Plan: Per chart review, according to EMS her SpO2 was 84% on room air and she was placed on a non-rebreather at 15 L with some improvement. Baseline RA. Likely secondary to CHF exacerbation. - Back to baseline RA - Wean as tolerated for SpO2 > 90 08/11- will order chest xray since oxygen requirements increased atelectasis vs pneumonia- will treat as pneumonia in setting increased oxygen demands and confusion. ON room air but still short of breath with any exertion -08/15 continues to be on room air (2) CHF exacerbation: Code(s): I50.9 - Heart failure, unspecified Status: Deleted Assessment and Plan: - Symptoms: shortness of breath with BLE edema and orthopnea She was having some chest discomfort with increased work of breathing earlier -but it is all resolved Pulmonary embolism seems less likely as she is on chronic anticoagulation. - Current medications: Bumex 1 mg IV daily - BNP: 1560 - EKG: without ST segment changes and troponin has been negative x2. - Chest XR: Interstitial prominence suggesting pneumonitis or pulmonary interstitial edema. Possible minimal pleural effusions. Normal heart size. Coronary stent - Chest CT: Moderate interstitial pulmonary edema. Trace bilateral pleural effusions. - Echo 04/08/2024: LVEF 65-70% with grade I diastolic dysfunction - Monitor vital signs, I&Os, BUN/creatinine, daily weights, neuro status and patient is a fall risk - Monitor serum electrolytes, Keep serum Potassium>4 and serum Magnesium>2 and CBC 08/11- will consult cardiology for help with chf/afib mngmnt 08/12 possible rt heart cath tomorrow 08/13- per card. :Change Bumex to I mg b.i.d. and continue metolazone- continue to monitor bmp,i/o I/O reviewed- in 612/out 4130 -[id number] need to ensure better po intake- boost supplements if needed 08/15 vs reviewed, leg swelling improved (3) Acute kidney injury superimposed on chronic kidney disease: Code(s): N17.9 - Acute kidney failure, unspecified; N18.9 - Chronic kidney disease, unspecified Status: Acute Assessment and Plan: Per nephrology note on 07/29, baseline creatinine fluctuates to extremes -- anywhere from 1.6 - 2.4mg/dl (in the last year) - BUN/Cr 53/3.7 on am labs - Worsening Cr likely related to patients ongoing diuresis for CHF exacerbation (Bumex made daily instead of BID) vs overcontrol of her BP per nephrology note consider having BP range closer to 150s systolic - Monitor renal function and I/O - Avoid nephrotoxic medications - Renally dose medications - Nephrology consulted, appreciate recommendations kidney function stable (4) Anemia: Qualifiers: Anemia type: unspecified type Qualified Code(s): D64.9 - Anemia, unspecified Code(s): D64.9 - Anemia, unspecified Status: Acute Assessment and Plan: Iron low -started on iron supplementation - f/u with pcp in 2-3 month for recheck (5) Coronary artery disease: Code(s): I25.10 - Atherosclerotic heart disease of [place] coronary artery without angina pectoris Status: Acute Assessment and Plan: Chronic, continue home medications. (6) Type 2 diabetes mellitus with hyperglycemia, with long-term current use of insulin: Code(s): E11.65 - Type 2 diabetes mellitus with hyperglycemia; Z79.4 - nursing home (current) use of insulin Status: Chronic Assessment and Plan: home insulin toujeo- 45 units at hs, ss14 units of lispro Continue basal insulin. Initiate sliding scale insulin, Accu-Cheks, and hypoglycemic protocol. will decrease lantus this am- 20 units (from 40) as few lower readings in am, protein snacks at hs-monitor 08/14- bs low this am- will hold lantus until PO intake improves 08/15 hold insulin 08/16 bs this am 177- will order 10 units of lantus and ss. monitor as intake improved. (7) Obstructive sleep apnea on CPAP: Code(s): G47.33 - Obstructive sleep apnea (adult) (pediatric); Z99.89 - Dependence on other enabling machines and devices Status: Chronic Assessment and Plan: Does not use CPAP at home. ABG ordered. (8) Hypothyroidism (acquired): Code(s): E03.9 - Hypothyroidism, unspecified Status: Acute [place] [address] currently on 75 mcg levothyroxine Will increase to 100 mcg on 08/07 and will need TSH recheck in 6-8 weeks as an outtpt- mid to end of October (9) Urinary tract infection: Code(s): N39.0 - Urinary tract infection, site not specified Status: Acute Assessment and Plan: ua was collected yesterday due to increased confusion. start cefepime to cover uti/pneumonia monitor for ua culture results to narrow antibiotics down pharmacy to renally dose switched to PO antibiotics augmentin- last dose 08/18 9 pm (10) Altered mental status: Qualifiers: Altered mental status type: unspecified Qualified Code(s): R41.82 - Altered mental status, unspecified Code(s): R41.82 - Altered mental status, unspecified Status: Resolved Assessment and Plan: ua was collected,chest xray done to rule out any infectious couses - son states that pt has problems with normal activities like eating-and has episodes of confusion, ?blanking out -will order ct head and consult neurology for eval -appreciate neurology recom. harrison stopped she is pretty much at her base level with some episodes of forgetfulness. Time Spent With Patient Time with patient: Greater than 35 minutes Subjective Date/time seen: 08/16/24 14:56 Interval history: 08/16- eeg today. working with care coordination for placement. neurology stopped her harrison-will see if her mentation is better. continue uti treatment with antibiotics. slipped on the floor from the chair today- no loc, no injury noted. Pt got up and walked to the bed on her own after the incident. no neuro deficit noted. Review of Systems Review of Systems: 12 systems were reviewed and are negativ e except for as per HPI. Exam Narrative: General: female in no acute respiratory distress who is nontoxic appearing, lying semi recumbent in bed. HEENT: Normocephalic. Atraumatic. Extraocular movement intact. Sclera clear and anicteric. No facial asymmetry. Chest: Lungs are diminished to auscultation bilaterally with lower base crackles. No wheezes. CV: Heart was regular rate and rhythm. S1-S2. No murmurs, gallops, or rubs. Abd: Abdomen was soft. Nontender. Nondistended. Positive bowel sounds. No organomegaly or masses. Ext: No clubbing, cyanosis, edema improved. 2+ DP pulses bilaterally. Neuro: Patient is alert and oriented x3 (person, place, year).somewhat slow to answer but able. Cranial nerves 2-12 are intact. Speech is clear. Objective Data Vital Signs Vital Signs: Vital Signs - 24 hr 08/15/24 16:00 08/15/24 20:00 08/15/24 20:00 Temperature Pulse Rate 106 H 115 H Respiratory Rate Blood Pressure Pulse Oximetry Oxygen Delivery Room Air 08/15/24 20:45 08/15/24 20:45 08/15/24 21:29 Temperature 97.4 F L 97.4 F L Pulse Rate 86 120 H 120 H Respiratory Rate 26 H 20 Blood Pressure 149/80 H 171/108 H Pulse Oximetry 99 98 Oxygen Delivery 08/15/24 21:29 08/15/24 22:20 08/16/24 00:00 Temperature Pulse Rate 120 H 60 108 H Respiratory Rate 21 H Blood Pressure Pulse Oximetry 96 Oxygen Delivery Autopap 08/16/24 01:51 08/16/24 05:40 08/16/24 08:00 Temperature 97.1 F L 96.7 F L Pulse Rate 120 H 86 Respiratory Rate 12 18 Blood Pressure 141/74 H 133/82 Pulse Oximetry 95 96 Oxygen Delivery Room Air 08/16/24 08:06 08/16/24 10:27 Temperature 96.9 F L Pulse Rate 111 H 63 Respiratory Rate Blood Pressure 146/72 H Pulse Oximetry 98 Oxygen Delivery Intake/Output Intake/Output: Intake & Output 08/13/24 08/14/24 08/15/24 08/16/24 23:59 23:59 23:59 23:59 Intake Total 5348 093 1360 890 Output Total 2150 1000 2851 900 [facility] -[phone] -10 Meds/Results Medications: Active Medications Generic Name Dose Route Start Last Admin Trade Name Freq PRN Reason Stop Dose Admin Acetaminophen 650 mg 08/06/24 22:10 08/14/24 19:22 Acetaminophen 325 Mg Tablet PO 650 mg Q6H PRN Administration Mild Pain (1-3) or Fever Allopurinol 100 mg 08/07/24 09:00 08/16/24 08:10 Allopurinol 100 Mg Tablet PO 100 mg DAILY NICOLE Administration Amiodarone HCl 200 mg 08/06/24 21:15 08/15/24 21:29 Amiodarone Hcl 200 Mg Tablet PO 200 mg HS NICOLE Administration Amoxicillin/Clavulanate Potassium 1 tablet 08/15/24 12:15 08/16/24 08:09 Amoxicillin/Clavulanate K 875-125 Mg Tab PO 08/18/24 21:01 1 tablet Q12HR NICOLE Administration Apixaban 5 mg 08/06/24 21:20 08/12/24 09:51 Apixaban 5 Mg Tablet PO 5 mg Q12HR NICOLE Administration Bumetanide 1 mg 08/15/24 09:00 08/16/24 08:06 Bumetanide 1 Mg Tablet PO 1 mg DAILY NICOLE Administration Bupropion HCl 150 mg 08/07/24 09:00 08/16/24 08:10 Bupropion Hcl Xl (24 Hr) 150 Mg Tabcr PO 150 mg DAILY NICOLE Administration Buspirone HCl 15 mg 08/07/24 09:00 08/16/24 08:05 Buspirone Hcl 5 Mg Tablet PO 15 mg DAILY NICOLE Administration Calcium Carbonate 500 mg 08/07/24 09:00 08/16/24 08:06 Calcium/Vitamin D 500 Mg/5 Mcg (200 I.U.) Tablet PO 500 mg QAM NICOLE Administration Carvedilol 6.25 mg 08/14/24 09:00 08/16/24 08:06 Carvedilol 6.25 Mg Tablet PO 6.25 mg Q12HR NICOLE Administration Dextrose 12.5 gm 08/06/24 22:10 Dextrose 50% 25 Gm/50 Ml Syringe IV PUSH PRN PRN Hypoglycemia Protocol Divalproex Sodium 500 mg 08/06/24 21:50 08/15/24 21:29 Divalproex Sodium Er 500 Mg Tab.24h PO 500 mg HS NICOLE Administration Docusate Sodium 100 mg 08/14/24 13:40 Docusate Sodium 100 Mg Capsule PO Q12H PRN Constipation Doxycycline Hyclate 100 mg 08/15/24 12:15 08/16/24 08:10 Doxycycline Hyclate 100 Mg Tablet PO 08/19/24 21:01 100 mg Q12HR NICOLE Administration Epoetin Ajit-epbx 10,000 units 08/13/24 09:00 08/16/24 08:14 Epoetin Ajit-Epbx 10,000 Units/Ml Vial SUB-Q 10,000 units TUTHSA@09 NICOLE Administration Famotidine 20 mg 08/06/24 21:20 08/15/24 21:29 Famotidine 20 Mg Tablet PO 20 mg HS NICOLE Administration Ferrous Sulfate 142 mg 08/08/24 08:00 08/16/24 08:06 Ferrous Sulfate Dried 142 Mg Tabcr PO 142 mg DAILY@0800 NICOLE Administration Glucagon 1 mg 08/06/24 22:10 Glucagon For Inj 1 Mg Vial IM PRN PRN Hypoglycemia Protocol Glucose 15 gm 08/06/24 22:10 Glucose Oral Gel 15 Gm Of Glucse In 37.5 Gm Tube PO PRN PRN Hypoglycemia Protocol Dextrose 1,000 mls @ 100 mls/hr 08/06/24 22:10 Dextrose 5% 1,000 Ml IVPB PRN PRN Hypoglycemia Protocol Insulin Aspart 3 - 6 units 08/07/24 08:00 08/16/24 12:47 Insulin Aspart (*Bkc) 100 Units/Ml SUB-Q 5 units TIDWM NICOLE Administration Protocol Insulin Aspart 1 - 3 units 08/07/24 21:00 08/15/24 21:30 Insulin Aspart (*Bkc) 100 Units/Ml SUB-Q Not Given HS [facility] Protocol Insulin Glargine 10 units 08/16/24 10:45 Insulin Glargine (*Bkc) 100 Units/Ml SUB-Q DAILY [facility] Isosorbide Dinitrate 5 mg 08/09/24 21:00 08/16/24 08:05 Isosorbide Dinitrate 5 Mg Tablet PO 5 mg Q12HR NICOLE Administration Levothyroxine Sodium 100 mcg 08/08/24 06:30 08/16/24 05:30 Levothyroxine Sodium 100 Mcg Tablet PO 100 mcg DAILY@0630 [facility] Administration Memantine 10 mg 08/06/24 21:15 08/16/24 08:10 Memantine 10 Mg Tablet PO 10 mg Q12HR [facility] Administration Miscellaneous Information 1 each 08/06/24 00:01 08/12/24 00:03 Evolocumab [Repatha Sureclick] 140 Mg/Ml Pen Injector) Is Nonformulary, Can Patient Bring XX 09/05/24 00:00 Not Given CLARIFY [facility] Miscellaneous Information 1 each 08/06/24 00:01 08/12/24 00:03 (Trospium 20 Mg Tablet) Is Nonformulary, Can Patient Bring From Home? XX 09/05/24 00:00 Not Given CLARIFY [facility] Multivitamins/Minerals 1 tablet 08/07/24 09:00 08/16/24 08:06 Opti-Gen Tab PO 1 tablet Q12HR NICOLE Administration Mupirocin 1 applic 08/07/24 09:00 08/16/24 08:14 Mupirocin 2% Oint 22 Gm Tube TOPICAL 1 applic BID NICOLE Administration Non-Formulary Medication 140 mg 08/06/24 21:15 Evolocumab [Repatha Sureclick] SUB-Q 09/05/24 21:14 Q14D NICOLE Non-Formulary Medication 14 unit 08/06/24 21:15 Insulin Lispro [Humalog Kwikpen Insulin] SUB-Q 09/05/24 21:14 .tidac [facility] Non-Formulary Medication 20 mg 08/06/24 21:15 Trospium PO 09/05/24 21:14 Q12H [facility] Nystatin 1 applic 08/06/24 21:12 Nystatin Ointment 15 Gm Tube TOPICAL BID PRN Rash Pantoprazole Sodium 40 mg 08/07/24 09:00 08/16/24 08:10 Pantoprazole 40 Mg Tablet PO 40 mg Q12HR NICOLE Administration Polyethylene Glycol 17 gm 08/14/24 13:40 Polyethylene Glycol 3350 17 Gm Powd.Pack PO QAM PRN Constipation Venlafaxine HCl 75 mg 08/07/24 09:00 08/16/24 08:10 Venlafaxine Hcl 75 Mg Tablet BY MOUTH 75 mg Q12HR NICOLE Administration Venlafaxine HCl 50 mg 08/07/24 09:00 08/16/24 08:09 Venlafaxine Hcl 25 Mg Tablet BY MOUTH 50 mg Q12HR NICOLE Administration Vitamin B Complex 1 cap 08/07/24 09:00 08/16/24 08:10 Vitamin B Complex Capsule PO 1 cap DAILY NICOLE Administration Radiology Results: ITS Impressions Chest CT 08/06/24 15:17 IMPRESSION: Moderate interstitial pulmonary edema. Trace bilateral pleural effusions. Renal Ultrasound 08/09/24 13:35 IMPRESSION: 1. Normal kidneys. No hydronephrosis. Chest X-Ray 08/11/24 13:18 IMPRESSION: 1. Airspace opacities in the lower lung zones with worsening on the left, consistent with atelectasis versus pneumonia. 2. Worsened small pleural effusions. Head CT 08/13/24 20:44 IMPRESSION: 1. Normal aging brain. Labs Labs: Laboratory Results - last 24 hr 08/13/24 08/15/24 08/15/24 06:48 17:08 20:24 WBC RBC Hgb Hct MCV MCH MCHC RDW Plt Count MPV Immature Gran % (Auto) Neut % (Auto) Lymph % (Auto) Pope % (Auto) Eos % (Auto) Baso % (Auto) Lymph # (Auto) Pope # (Auto) Eos # (Auto) Baso # (Auto) Abs Immat Gran (auto) Absolute Neuts (auto) Absolute Nucleated RBC Nucleated RBC % Sodium Potassium Chloride Carbon Dioxide Anion Gap BUN Creatinine Estim Creat Clear Calc Estimated GFR Glucose POC Capillary Glucose 221 H 196 H Calcium Phosphorus Magnesium Total Bilirubin AST ALT Alkaline Phosphatase Total Protein Albumin RBC Folate 948 08/16/24 08/16/24 08/16/24 06:53 07:53 11:33 WBC 8.6 RBC 3.61 L Hgb 9.8 L Hct 32.3 L MCV 89.5 MCH 27.1 MCHC 30.3 L RDW 16.9 H Plt Count 348 MPV 9.3 Immature Gran % (Auto) 0.3 Neut % (Auto) 69.4 Lymph % (Auto) 17.6 L Pope % (Auto) 6.8 Eos % (Auto) 5.2 H Baso % (Auto) 0.7 Lymph # (Auto) 1.52 Pope # (Auto) 0.6 Eos # (Auto) 0.5 H Baso # (Auto) 0.1 Abs Immat Gran (auto) 0.03 Absolute Neuts (auto) 6.0 Absolute Nucleated RBC 0.030 H Nucleated RBC % 0.3 H Sodium 136 L Potassium 4.1 Chloride 97 L Carbon Dioxide 38 H Anion Gap 1 L BUN 30 H Creatinine 2.00 H Estim Creat Clear Calc 27 Estimated GFR 24 L Glucose 177 H POC Capillary Glucose 195 H 323 H Calcium 9.3 Phosphorus 2.4 L Magnesium 2.0 Total Bilirubin 0.4 AST 19 ALT 15 Alkaline Phosphatase 156 H Total Protein 7.0 Albumin 3.3 L RBC Folate Quality VTE Prophylaxis VTE prophylaxis: pharmacologic ordered (on apixaban)
[2024-08-16 16:45] LABS: Glucose Point of Care 300 mg/dl (65-105)
[2024-08-16] MEDS: AMIODARONE HCL 200 MG TABLET PO (20:25)
[2024-08-16] MEDS: DIVALPROEX SODIUM ER 500 MG TAB.24H PO (20:25)
[2024-08-16] MEDS: FAMOTIDINE 20 MG TABLET PO (20:26)
[2024-08-16 21:13] LABS: Glucose Point of Care 270 mg/dl (65-105)
--- NOTE | 2024-08-16 23:34 | ECG_ITS ---
Test Date: 2024-08-16 23:44:46 Measurements Intervals [place] Rate: 121 P: 0 W[place]: 0 QRS: 56 QRSD: 92 T: -60 QT: 321 QTc: 456 Interpretive Statements ATRIAL FIBRILLATION WITH RAPID VENTRICULAR RESPONSE NONSPECIFIC ST & T-WAVE ABNORMALITY Compared to ECG 08/14/2024 04:14:39 No significant changes Electronically Signed On 08-17-2024 18:49:14 OPERATOR ENGINEER by Gabriela Griffith
[2024-08-17] VITALS (12 sets, daily range): BP systolic 127–154; BP diastolic 64–93; PULSE 101–139; RESP 18–24; TEMP 36.2–36.6; O2SAT 97–100
[2024-08-17] MEDS: AMIODARONE HCL 200 MG TABLET PO ×2 (00:05→20:35)
[2024-08-17] MEDS: LEVOTHYROXINE SODIUM 100 MCG TABLET PO (06:01)
[2024-08-17 06:55] LABS: Basophils Absolute Auto 0.1 K/mm3 (0.0-0.1); Basophils Percent Auto 0.8 % (0.2-1.2); Eosinophils Absolute Auto 0.5 K/mm3 (0-0.3); Hematocrit 32.8 % (37.0-47.0); Hemoglobin 9.6 g/dL (12.0-15.0); Immature Granulocyte Absolute 0.04 K/mm3 (0.00-0.031); Immature Granulocyte Percent A 0.5 % (0-0.5); Lymphocytes Absolute Auto 1.58 K/mm3 (0.9-3.2); Lymphocytes Percent Auto 19.9 % (18.3-44.2); Mean Corpuscular HGB Conc 29.3 g/dl (32-36); Mean Corpuscular Hemoglobin 26.2 pg (26-34); Mean Corpuscular Volume 89.6 fl (80-100); Mean Platelet Volume 9.3 fl (7.4-10.4); Monocytes Absolute Auto 0.6 K/mm3 (0.1-0.6); Monocytes Percent Auto 7.1 % (2.6-8.5); Neutrophils Absolute Auto 5.2 K/mm3 (1.3-6.7); Neutrophils Percent Auto 65.7 % (45.5-73.1); Platelet Count Result 338 k/mm3 (150-375); Red Blood Count 3.66 M/mm3 (4.2-5.4); Red Cell Distribution Width 17.2 % (11.5-14.5); White Blood Count 7.9 K/mm3 (4.5-10.0)
[2024-08-17 07:06] LABS: Alanine Aminotransferase 15 U/L (6-35); Albumin Level 3.4 g/dL (3.5-5.1); Alkaline Phosphatase 154 U/L (38-126); Anion Gap 3 mmol/L (4-12); Aspartate Amino Transferase 19 U/L (14-36); Bilirubin,Total 0.5 mg/dL (0.2-1.3); Blood Urea Nitrogen 27 mg/dL (7-17); Calcium 9.2 mg/dL (8.4-10.2); Carbon Dioxide 36 mmol/L (22-30); Chloride 96 mmol/L (98-107); Estimated CRCL calculation 27 ml/min; Estimated Glomerular Filt Rate 24; Glucose 207 mg/dL (65-110); Magnesium 1.9 mg/dL (1.6-2.3); Phosphorus 2.6 mg/dL (2.5-4.5); Potassium 3.5 mmol/L (3.4-5.0); Sodium 135 mmol/L (137-145)
[2024-08-17 07:19] LABS: Macrocytosis 1+ (NORMAL); Platelet Estimate Adequate (Adequate); Schistocytes None Seen
[2024-08-17 08:28] LABS: Glucose Point of Care 217 mg/dl (65-105)
[2024-08-17] MEDS: VENLAFAXINE HCL 75 MG TABLET BY MOUTH ×2 (08:48→20:34)
[2024-08-17] MEDS: VENLAFAXINE HCL 25 MG TABLET 50 MG BY MOUTH ×2 (08:48→20:33)
[2024-08-17] MEDS: BUMETANIDE 1 MG TABLET PO (08:48)
[2024-08-17] MEDS: DOXYCYCLINE HYCLATE 100 MG TABLET PO ×2 (08:48→20:34)
[2024-08-17] MEDS: carvediloL 6.25 MG TABLET PO (08:48)
[2024-08-17] MEDS: busPIRone HCL 5 MG TABLET 15 MG PO (08:48)
[2024-08-17] MEDS: AMOXICILLIN/CLAVULANATE K 875-125 MG TAB 1 TABLET PO ×2 (08:49→20:35)
[2024-08-17] MEDS: allopurinoL 100 MG TABLET PO (08:49)
[2024-08-17] MEDS: FERROUS SULFATE DRIED 142 MG TABCR PO (08:49)
[2024-08-17] MEDS: MUPIROCIN 2% OINT 22 GM TUBE 1 APPLIC TOPICAL ×2 (08:49→17:34)
[2024-08-17] MEDS: buPROPion HCL XL (24 HR) 150 MG TABCR PO (08:49)
[2024-08-17] MEDS: CALCIUM/VITAMIN D 500 MG/5 MCG (200 I.U.) TABLET PO (08:49)
[2024-08-17] MEDS: PANTOPRAZOLE 40 MG TABLET PO ×2 (08:49→20:34)
[2024-08-17] MEDS: OPTI-GEN TAB 1 TABLET PO ×2 (08:49→20:34)
[2024-08-17] MEDS: VITAMIN B COMPLEX CAPSULE 1 CAP PO (08:49)
[2024-08-17] MEDS: ISOSORBIDE DINITRATE 5 MG TABLET PO ×2 (08:49→20:34)
[2024-08-17] MEDS: MEMANTINE 10 MG TABLET PO ×2 (08:49→20:34)
[2024-08-17] MEDS: INSULIN ASPART (*BKC) 100 UNITS/ML SUB-Q ×4 (08:49→21:20)
--- NOTE | 2024-08-17 09:27 | P.PNIM_ITS ---
Progress Note: A&P Assessment and Plan (1) Altered mental status: Qualifiers: Altered mental status type: unspecified Qualified Code(s): R41.82 - Altered mental status, unspecified Code(s): R41.82 - Altered mental status, unspecified Status: Resolved Assessment and Plan: ua was collected,chest xray done to rule out any infectious causes - son states that pt has problems with normal activities like eating-and has episodes of confusion, ?blanking out - head ct unremarkable -appreciate neurology recom. harrison stopped she is pretty much at her base level with some episodes of forgetfulness. (2) Acute respiratory failure with hypoxia: Code(s): J96.01 - Acute respiratory failure with hypoxia Status: Acute Assessment and Plan: Per chart review, according to EMS her SpO2 was 84% on room air and she was placed on a non-rebreather at 15 L with some improvement. Baseline RA. Likely secondary to CHF exacerbation. - Back to baseline RA - Wean as tolerated for SpO2 > 90 08/11- will order chest xray since oxygen requirements increased Chest XR: atelectasis vs pneumonia- will treat as pneumonia in setting increased oxygen demands and confusion. Remains on room air (3) Paroxysmal atrial fibrillation: Code(s): I48.0 - Paroxysmal atrial fibrillation Status: Chronic Assessment and Plan: - Current home medication: Amiodarone 200 mg daily , Coreg 6.25 mg BID, Eliquis 5 mg BID EKG 08/16: Afib RVR HR 121 Patient was noted to be in afib RVR with HR 121 as seen on EKG. Overnight MD ordered amiodarone 200 mg x1 at that time. Patient remains in afib RVR with HR 110-130s. Asymptomatic. Attempted to call Dr. Griffith and left a voicemail. Patient coreg increased to 12.5 mg BID. Monitor. (4) CHF exacerbation: Code(s): I50.9 - Heart failure, unspecified Status: Deleted Assessment and Plan: - Symptoms: shortness of breath with BLE edema and orthopnea She was having some chest discomfort with increased work of breathing earlier -but it is all resolved Pulmonary embolism seems less likely as she is on chronic anticoagulation. - Current medications: Bumex 1 mg IV daily - BNP: 1560 - EKG: without ST segment changes and troponin has been negative x2. - Chest XR: Interstitial prominence suggesting pneumonitis or pulmonary intersti tial edema. Possible minimal pleural effusions. Normal heart size. Coronary stent - Chest CT: Moderate interstitial pulmonary edema. Trace bilateral pleural effusions. - Echo 04/08/2024: LVEF 65-70% with grade I diastolic dysfunction - Monitor vital signs, I&Os, BUN/creatinine, daily weights, neuro status and patient is a fall risk - Monitor serum electrolytes, Keep serum Potassium>4 and serum Magnesium>2 and CBC - Cardiology consulted Change Bumex to 1 mg daily. and continue metolazone, follow-up kidney function electrolytes (5) Pneumonia: Qualifiers: Laterality: bilateral Lung location: unspecified part of lung Pneumonia type: due to unspecified organism Qualified Code(s): J18.9 - Pneumonia, unspecified organism Code(s): J18.9 - Pneumonia, unspecified organism Status: Resolved Assessment and Plan: CXR 08/11: 1. Airspace opacities in the lower lung zones with worsening on the left, consistent with atelectasis versus pneumonia. 2. Worsened small pleural effusions. - started on doxy and augmentin course to be completed on 08/19 - Viral PCR: negative for Flu/COVID/RSV - weaned back to baseline room air - Monitor vital signs, I&Os, neuro status and patient is a fall risk - Follow WBC, serum electrolytes, temperature curves and cultures (6) Urinary tract infection: Code(s): N39.0 - Urinary tract infection, site not specified Status: Acute Assessment and Plan: ua was collected 08/11 due to increased confusion. start cefepime to cover uti/pneumonia urine culture: klebsiella pneumoniae switched to PO antibiotics Augmentin- last dose 08/18 9 pm (7) Acute kidney injury superimposed on chronic kidney disease: Code(s): N17.9 - Acute kidney failure, unspecified; N18.9 - Chronic kidney disease, unspecified Status: Acute Assessment and Plan: Per nephrology note on 07/29, baseline creatinine fluctuates to extremes -- anywhere from 1.6 - 2.4mg/dl (in the last year) - BUN/Cr 27/2.0 on am labs - Worsening Cr likely related to patients ongoing diuresis for CHF exacerbation (Bumex made daily instead of BID) vs overcontrol of her BP per nephrology note consider having BP range closer to 150s systolic - Monitor renal function and I/O - Avoid nephrotoxic medications - Renally dose medications - Nephrology consulted, appreciate recommendations Kidney function stable (8) Type 2 diabetes mellitus with hyperglycemia, with long-term current use of insulin: Code(s): E11.65 - Type 2 diabetes mellitus with hyperglycemia; Z79.4 - retirement (current) use of insulin Status: Chronic Assessment and Plan: home insulin toujeo- 45 units at hs, ss14 units of lispro Continue basal insulin. Initiate sliding scale insulin, Accu-Cheks, and hypoglycemic protocol. will decrease lantus this am- 20 units (from 40) as few lower readings in am, protein snacks at hs-monitor 08/14- bs low this am- will hold lantus until PO intake improves 08/15 hold insulin 08/16 bs this am 177- will order 10 units of lantus and ss. monitor as intake improved. (9) Anemia: Qualifiers: Anemia type: unspecified type Qualified Code(s): D64.9 - Anemia, unspecified Code(s): D64.9 - Anemia, unspecified Status: Acute Assessment and Plan: Iron low -started on iron supplementation - f/u with pcp in 2-3 month for recheck (10) Hypothyroidism (acquired): Code(s): E03.9 - Hypothyroidism, unspecified Status: Acute Assessment [place]: [place] [id number] currently on 75 mcg levothyroxine Will increase to 100 mcg on 08/07 and will need TSH recheck in 6-8 weeks as an outtpt- mid to end of October (11) Coronary artery disease: Code(s): I25.10 - Atherosclerotic heart disease of [place] coronary artery without angina pectoris Status: Acute Assessment and Plan: Chronic, continue home medications. (12) Obstructive sleep apnea on CPAP: Code(s): G47.33 - Obstructive sleep apnea (adult) (pediatric); Z99.89 - Dependence on other enabling machines and devices Status: Chronic Assessment and Plan: Does not use CPAP at home. ABG ordered. Subjective Date/time seen: 08/17/24 09:27 Interval history: 78-year-old female with coronary artery disease and history of stents, paroxysmal atrial fibrillation on anticoagulation, diastolic congestive heart failure, pulmonary hypertension, obstructive sleep apnea on CPAP, hypertension, hyperlipidemia, chronic kidney disease, anemia, type 2 diabetes mellitus, memory impairment, C difficile diarrhea, depression, suicide attempt in April 2024, and other comorbidities who presented to the emergency department via EMS from home for evaluation of chest pain and shortness of breath. Patient is pleasant sitting up in her chair. She remains AOx2 during assessment. She states that she is feeling okay today. She continues to endorse weakness, but denies chest pain, shortness of breath, palpitations, nausea/vomiting, and abdominal pain. Overnight patient was noted to be in afib RVR with HR 121 as seen on EKG. Overnight MD ordered amiodarone 200 mg x1 at that time. Called Dr. Griffith and left voicemail. Coreg dose increased to 12.5 mg BID pending cardiology recommendations. Review of Systems Review of Systems: 12 systems were reviewed and are negativ e except for as per HPI. Exam Narrative: AF HR 101 RR 24 SPO2 97 BP 127/64 General: female in no acute respiratory distress who is nontoxic appearing, sitting up in bed HEENT: Normocephalic. Atraumatic. Extraocular movement intact. Sclera clear and anicteric. No facial asymmetry. Chest: Lungs are clear to auscultation bilaterally. No wheezes or crackles. CV: Heart was irregularly irregular rhythm and tachycardic. S1-S2. No murmurs, gallops, or rubs. Abd: Abdomen was soft. Nontender. Nondistended. Positive bowel sounds. No organomegaly or masses. Ext: No clubbing, cyanosis, or edema. 2+ DP pulses bilaterally. Neuro: Patient is alert and oriented x2 (person, place). Speech is clear. Objective Data Vital Signs Vital Signs: Vital Signs - 24 hr 08/16/24 10:27 08/16/24 12:00 08/16/24 14:00 Temperature 96.9 F L 97.2 F L Pulse Rate 63 118 H 108 H Respiratory Rate 18 Blood Pressure 146/72 H 143/71 H Pulse Oximetry 98 95 08/16/24 16:00 08/16/24 20:00 08/16/24 20:25 Temperature Pulse Rate 109 H 115 H 111 H Respiratory Rate Blood Pressure Pulse Oximetry 08/16/24 20:25 08/16/24 21:27 08/16/24 23:39 Temperature 97.3 F L 97.6 F Pulse Rate 111 H 101 H 107 H Respiratory Rate 18 22 H Blood Pressure 127/90 130/93 H Pulse Oximetry 99 97 08/17/24 00:00 08/17/24 00:05 08/17/24 04:00 Temperature Pulse Rate 114 H 120 H 107 H Respiratory Rate Blood Pressure Pulse Oximetry 08/17/24 05:55 Temperature 97.6 F Pulse Rate 101 H Respiratory Rate 24 H Blood Pressure 127/64 Pulse Oximetry 97 Intake/Output Intake/Output: Intake & Output 08/14/24 08/15/24 08/16/24 08/17/24 23:59 23:59 23:59 23:59 Intake Total 630 2120 1590 0 Output Total 1000 2851 1900 800 [facility] [phone] Meds/Results Medications: Active Medications Generic Name Dose Route Start Last Admin Trade Name Freq PRN Reason Stop Dose Admin Acetaminophen 650 mg 08/06/24 22:10 08/14/24 19:22 Acetaminophen 325 Mg Tablet PO 650 mg Q6H PRN Administration Mild Pain (1-3) or Fever Allopurinol 100 mg 08/07/24 09:00 08/17/24 08:49 Allopurinol 100 Mg Tablet PO 100 mg DAILY NICOLE Administration Amiodarone HCl 200 mg 08/06/24 21:15 08/16/24 20:25 Amiodarone Hcl 200 Mg Tablet PO 200 mg HS NICOLE Administration Amoxicillin/Clavulanate Potassium 1 tablet 08/15/24 12:15 08/17/24 08:49 Amoxicillin/Clavulanate K 875-125 Mg Tab PO 08/18/24 21:01 1 tablet Q12HR NICOLE Administration Apixaban 5 mg 08/06/24 21:20 08/12/24 09:51 Apixaban 5 Mg Tablet PO 5 mg Q12HR NICOLE Administration Bumetanide 1 mg 08/15/24 09:00 08/17/24 08:48 Bumetanide 1 Mg Tablet PO 1 mg DAILY NICOLE Administration Bupropion HCl 150 mg 08/07/24 09:00 08/17/24 08:49 Bupropion Hcl Xl (24 Hr) 150 Mg Tabcr PO 150 mg DAILY NICOLE Administration Buspirone HCl 15 mg 08/07/24 09:00 08/17/24 08:48 Buspirone Hcl 5 Mg Tablet PO 15 mg DAILY NICOLE Administration Calcium Carbonate 500 mg 08/07/24 09:00 08/17/24 08:49 Calcium/Vitamin D 500 Mg/5 Mcg (200 I.U.) Tablet PO 500 mg QAM NICOLE Administration Carvedilol 6.25 mg 08/14/24 09:00 08/17/24 08:48 Carvedilol 6.25 Mg Tablet PO 6.25 mg Q12HR NICOLE Administration Dextrose 12.5 gm 08/06/24 22:10 Dextrose 50% 25 Gm/50 Ml Syringe IV PUSH PRN PRN Hypoglycemia Protocol Divalproex Sodium 500 mg 08/06/24 21:50 08/16/24 20:25 Divalproex Sodium Er 500 Mg Tab.24h PO 500 mg HS NICOLE Administration Docusate Sodium 100 mg 08/14/24 13:40 Docusate Sodium 100 Mg Capsule PO Q12H PRN Constipation Doxycycline Hyclate 100 mg 08/15/24 12:15 08/17/24 08:48 Doxycycline Hyclate 100 Mg Tablet PO 08/19/24 21:01 100 mg Q12HR NICOLE Administration Epoetin Ajit-epbx 10,000 units 08/13/24 09:00 08/16/24 08:14 Epoetin Ajit-Epbx 10,000 Units/Ml Vial SUB-Q 10,000 units TUTHSA@09 [facility] Administration Famotidine 20 mg 08/06/24 21:20 08/16/24 20:26 Famotidine 20 Mg Tablet PO 20 mg HS NICOLE Administration Ferrous Sulfate 142 mg 08/08/24 08:00 08/17/24 08:49 Ferrous Sulfate Dried 142 Mg Tabcr PO 142 mg DAILY@0800 NICOLE Administration Glucagon 1 mg 08/06/24 22:10 Glucagon For Inj 1 Mg Vial IM PRN PRN Hypoglycemia Protocol Glucose 15 gm 08/06/24 22:10 Glucose Oral Gel 15 Gm Of Glucse In 37.5 Gm Tube PO PRN PRN Hypoglycemia Protocol Dextrose 1,000 mls @ 100 mls/hr 08/06/24 22:10 Dextrose 5% 1,000 Ml IVPB PRN PRN Hypoglycemia Protocol Insulin Aspart 3 - 6 units 08/07/24 08:00 08/17/24 08:49 Insulin Aspart (*Bkc) 100 Units/Ml SUB-Q 3 units TIDWM INCOLE Administration Protocol Insulin Aspart 1 - 3 units 08/07/24 21:00 08/16/24 21:24 Insulin Aspart (*Bkc) 100 Units/Ml SUB-Q 2 units HS NICOLE Administration Protocol Insulin Glargine 10 units 08/16/24 10:45 Insulin Glargine (*Bkc) 100 Units/Ml SUB-Q DAILY NICOLE Isosorbide Dinitrate 5 mg 08/09/24 21:00 08/17/24 08:49 Isosorbide Dinitrate 5 Mg Tablet PO 5 mg Q12HR NICOLE Administration Levothyroxine Sodium 100 mcg 08/08/24 06:30 08/17/24 06:01 Levothyroxine Sodium 100 Mcg Tablet PO 100 mcg DAILY@0630 NICOLE Administration Memantine 10 mg 08/06/24 21:15 08/17/24 08:49 Memantine 10 Mg Tablet PO 10 mg Q12HR NICOLE Administration Miscellaneous Information 1 each 08/06/24 00:01 08/12/24 00:03 Evolocumab [Repatha Sureclick] 140 Mg/Ml Pen Injector) Is Nonformulary, Can Patient Bring XX 09/05/24 00:00 Not Given [facility] Miscellaneous Information 1 each 08/06/24 00:01 08/12/24 00:03 (Trospium 20 Mg Tablet) Is Nonformulary, Can Patient Bring From Home? XX 09/05/24 00:00 Not Given [facility] Multivitamins/Minerals 1 tablet 08/07/24 09:00 08/17/24 08:49 Opti-Gen Tab PO 1 tablet Q12HR NICOLE Administration Mupirocin 1 applic 08/07/24 09:00 08/17/24 08:49 Mupirocin 2% Oint 22 Gm Tube TOPICAL 1 applic BID NICOLE Administration Non-Formulary Medication 140 mg 08/06/24 21:15 Evolocumab [Repatha Sureclick] SUB-Q 09/05/24 21:14 Q14D NICOLE Non-Formulary Medication 20 mg 08/06/24 21:15 Trospium PO 09/05/24 21:14 Q12H NICOLE Nystatin 1 applic 08/06/24 21:12 Nystatin Ointment 15 Gm Tube TOPICAL BID PRN Rash Pantoprazole Sodium 40 mg 08/07/24 09:00 08/17/24 08:49 Pantoprazole 40 Mg Tablet PO 40 mg Q12HR NICOLE Administration Polyethylene Glycol 17 gm 08/14/24 13:40 Polyethylene Glycol 3350 17 Gm Powd.Pack PO QAM PRN Constipation Venlafaxine HCl 75 mg 08/07/24 09:00 08/17/24 08:48 Venlafaxine Hcl 75 Mg Tablet BY MOUTH 75 mg Q12HR NICOLE Administration Venlafaxine HCl 50 mg 08/07/24 09:00 08/17/24 08:48 Venlafaxine Hcl 25 Mg Tablet BY MOUTH 50 mg Q12HR NICOLE Administration Vitamin B Complex 1 cap 08/07/24 09:00 08/17/24 08:49 Vitamin B Complex Capsule PO 1 cap DAILY NICOLE Administration Radiology Results: ITS Impressions Chest CT 08/06/24 15:17 IMPRESSION: Moderate interstitial pulmonary edema. Trace bilateral pleural effusions. Renal Ultrasound 08/09/24 13:35 IMPRESSION: 1. Normal kidneys. No hydronephrosis. Chest X-Ray 08/11/24 13:18 IMPRESSION: 1. Airspace opacities in the lower lung zones with worsening on the left, consistent with atelectasis versus pneumonia. 2. Worsened small pleural effusions. Head CT 08/13/24 20:44 IMPRESSION: 1. Normal aging brain. Labs Labs: Laboratory Results - last 24 hr 08/16/24 08/16/24 08/16/24 11:33 16:40 21:09 WBC RBC Hgb Hct MCV MCH MCHC RDW Plt Count MPV Immature Gran % (Auto) Neut % (Auto) Lymph % (Auto) [place] % (Auto) Eos % (Auto) Baso % (Auto) Lymph # (Auto) [place] # (Auto) Eos # (Auto) Baso # (Auto) Abs Immat Gran (auto) Absolute Neuts (auto) Absolute Nucleated RBC Nucleated RBC % Platelet Estimate Macrocytosis Schistocytes Sodium Potassium Chloride Carbon Dioxide Anion Gap BUN Creatinine Estim Creat Clear Calc Estimated GFR Glucose POC Capillary Glucose 323 H 300 H 270 H Calcium Phosphorus Magnesium Total Bilirubin AST ALT Alkaline Phosphatase Total Protein Albumin 08/17/24 08/17/24 06:24 08:26 WBC 7.9 RBC 3.66 L Hgb 9.6 L Hct 32.8 L MCV 89.6 MCH 26.2 MCHC 29.3 L RDW 17.2 H Plt Count 338 MPV 9.3 Immature Gran % (Auto) 0.5 Neut % (Auto) 65.7 Lymph % (Auto) 19.9 [place] % (Auto) 7.1 Eos % (Auto) 6.0 H Baso % (Auto) 0.8 Lymph # (Auto) 1.58 [place] # (Auto) 0.6 Eos # (Auto) 0.5 H Baso # (Auto) 0.1 Abs Immat Gran (auto) 0.04 H Absolute Neuts (auto) 5.2 Absolute Nucleated RBC 0.000 Nucleated RBC % 0.0 Platelet Estimate Adequate Macrocytosis 1+ Schistocytes None seen Sodium 135 L Potassium 3.5 Chloride 96 L Carbon Dioxide 36 H Anion Gap 3 L BUN 27 H Creatinine 2.00 H Estim Creat Clear Calc 27 Estimated GFR 24 L Glucose 207 H POC Capillary Glucose 217 H Calcium 9.2 Phosphorus 2.6 Magnesium 1.9 Total Bilirubin 0.5 AST 19 ALT 15 Alkaline Phosphatase 154 H Total Protein 7.0 Albumin 3.4 L Quality VTE Prophylaxis VTE prophylaxis: pharmacologic ordered (on apixaban)
[2024-08-17 12:06] LABS: Glucose Point of Care 272 mg/dl (65-105)
--- NOTE | 2024-08-17 12:38 | P.PNNP_ITS ---
Progress Note: A&P Assessment and Plan (1) ALBERTINA (acute kidney injury): Code(s): N17.9 - Acute kidney failure, unspecified Status: Acute Assessment and Plan: * relatively stable at this time * elevated on admission (but close to what it was on last hospital discharge) * worsening noted during this hospitalization after admission * however, seems to have stabilized * holding diuretics on last hospitalization resulted in only mild improvement in renal function (and may have precipitated re-admission) * evaluation noted: * renal u/s normal * CPK slightly elevated (but not likely to affect kidney function) * urine electrolytes prerenal * UA negative for infection by culture * moderate proteinuria * follow trend of repeat labs and UOP (2) Chronic kidney disease, stage IV (severe): Code(s): N18.4 - Chronic kidney disease, stage 4 (severe) Status: Chronic Assessment and Plan: * baseline creatinine fluctuates to extremes -- anywhere from 1.6 - 2.4mg/dl (in the last year) * this causes her to fluctuate between CKD stage 3b and stage 4 * due to her hypertension, diabetes, obstructive sleep apnea, gout, diastolic heart failure + diuretics, and age-related change * this may be a situation where we have to accept a higher creatinine to maintain her volume status... (3) Acute on chronic diastolic heart failure: Code(s): I50.33 - Acute on chronic diastolic (congestive) heart failure Status: Deleted Assessment and Plan: * improvement noted * as noted by presentation to the ER: * bilateral LE edema + SOB + orthopnea * BNP: 1560 * admission CXR with nterstitial prominence suggesting pneumonitis or pulmonary interstitial edema. Possible minimal pleural effusions * chest CT with moderate interstitial pulmonary edema and trace bilateral pleural effusions * was on IV diuretics * trial dose of metolazone x 3 days with reasonable response * transitioned to oral bumex * Cardiology following * follow respiratory status (4) Hypertension: Qualifiers: Hypertension type: unspecified Qualified Code(s): I10 - Essential (primary) hypertension Code(s): I10 - Essential (primary) hypertension Status: Chronic Assessment and Plan: * reasonable control at this time * follow trend of hemodynamics (5) Paroxysmal atrial fibrillation: Code(s): I48.0 - Paroxysmal atrial fibrillation Status: Chronic Assessment and Plan: * rate control strategy * on anticoagulation (6) Anemia: Qualifiers: Anemia type: unspecified type Qualified Code(s): D64.9 - Anemia, unspecified Code(s): D64.9 - Anemia, unspecified Status: Acute Assessment and Plan: * partly related to CKD along with ALBERTINA and acute illness * Retacrit 3x/week while hospitalized * PRBC transfusion per protocol * follow trend of H/H (7) Type 2 diabetes mellitus: Code(s): E11.9 - Type 2 diabetes mellitus without complications Status: Acute Assessment and Plan: * follow accu-cheks * glycemic control per hospitalists Not much else to add at this time -- will continue to follow intermittently. Subjective Date/time seen: 08/17/24 12:38 Interval history: Follow-up for acute kidney injury/acute renal failure on chronic kidney disease. Appears to be doing reasonably well at the time of my visit; sitting up in jin in no apparent distress; breathing/respiratory status stable without the need for supplement oxygen; renal function/creatinine relatively stable with current diuretic therapy; no acute complaints voiced. Exam 2 Narrative: General: elderly but WD/WN female in NAD Heart: normal S1 and S2; no rub Lungs: clear anteriorly; decreased at bases Abdomen: soft, nontender, nondistended, positive bowel sounds Extremities: no cyanosis or clubbing; trace edema Skin: no nodules Objective Data Vital Signs Vital Signs: Vital Signs Temp Pulse Resp BP Pulse Ox 08/17/24 05:55 97.6 F 101 H 24 H 127/64 97 08/17/24 04:00 107 H 08/17/24 00:05 120 H 08/17/24 00:00 114 H 08/16/24 23:39 97.6 F 107 H 22 H 130/93 H 97 08/16/24 21:27 97.3 F L 101 H 18 127/90 99 08/16/24 20:25 111 H 08/16/24 20:25 111 H 08/16/24 20:00 115 H 08/16/24 16:00 109 H Intake/Output Intake/Output: Intake & Output 08/14/24 08/15/24 08/16/24 08/17/24 23:59 23:59 23:59 23:59 Intake Total 630 2120 1590 0 Output Total 1000 2851 1900 800 Balance -370 -731 -310 -800 Meds/Results Medications: Active Medications Generic Name Dose Route Start Last Admin Trade Name Freq PRN Reason Stop Dose Admin Acetaminophen 650 mg 08/06/24 22:10 08/14/24 19:22 Acetaminophen 325 Mg Tablet PO 650 mg Q6H PRN Administration Mild Pain (1-3) or Fever Allopurinol 100 mg 08/07/24 09:00 08/17/24 08:49 Allopurinol 100 Mg Tablet PO 100 mg DAILY NICOLE Administration Amiodarone HCl 200 mg 08/06/24 21:15 08/16/24 20:25 Amiodarone Hcl 200 Mg Tablet PO 200 mg HS NICOLE Administration Amoxicillin/Clavulanate Potassium 1 tablet 08/15/24 12:15 08/17/24 08:49 Amoxicillin/Clavulanate K 875-125 Mg Tab PO 08/18/24 21:01 1 tablet Q12HR NICOLE Administration Apixaban 5 mg 08/06/24 21:20 08/12/24 09:51 Apixaban 5 Mg Tablet PO 5 mg Q12HR NICOLE Administration Bumetanide 1 mg 08/15/24 09:00 08/17/24 08:48 Bumetanide 1 Mg Tablet PO 1 mg DAILY NICOLE Administration Bupropion HCl 150 mg 08/07/24 09:00 08/17/24 08:49 Bupropion Hcl Xl (24 Hr) 150 Mg Tabcr PO 150 mg DAILY NICOLE Administration Buspirone HCl 15 mg 08/07/24 09:00 08/17/24 08:48 Buspirone Hcl 5 Mg Tablet PO 15 mg DAILY NICOLE Administration Calcium Carbonate 500 mg 08/07/24 09:00 08/17/24 08:49 Calcium/Vitamin D 500 Mg/5 Mcg (200 I.U.) Tablet PO 500 mg QAM NICOLE Administration Carvedilol 12.5 mg 08/17/24 21:00 Carvedilol 12.5 Mg Tablet PO Q12HR NIOCLE Dextrose 12.5 gm 08/06/24 22:10 Dextrose 50% 25 Gm/50 Ml Syringe IV PUSH PRN PRN Hypoglycemia Protocol Divalproex Sodium 500 mg 08/06/24 21:50 08/16/24 20:25 Divalproex Sodium Er 500 Mg Tab.24h PO 500 mg HS NICOLE Administration Docusate Sodium 100 mg 08/14/24 13:40 Docusate Sodium 100 Mg Capsule PO Q12H PRN Constipation Doxycycline Hyclate 100 mg 08/15/24 12:15 08/17/24 08:48 Doxycycline Hyclate 100 Mg Tablet PO 08/19/24 21:01 100 mg Q12HR NICOLE Administration Epoetin Ajit-epbx 10,000 units 08/13/24 09:00 08/16/24 08:14 Epoetin Ajit-Epbx 10,000 Units/Ml Vial SUB-Q 10,000 units TUTHSA@09 [facility] Administration Famotidine 20 mg 08/06/24 21:20 08/16/24 20:26 Famotidine 20 Mg Tablet PO 20 mg HS [facility] Administration Ferrous Sulfate 142 mg 08/08/24 08:00 08/17/24 08:49 Ferrous Sulfate Dried 142 Mg Tabcr PO 142 mg DAILY@0800 [facility] Administration Glucagon 1 mg 08/06/24 22:10 Glucagon For Inj 1 Mg Vial IM PRN PRN Hypoglycemia Protocol Glucose 15 gm 08/06/24 22:10 Glucose Oral Gel 15 Gm Of Glucse In 37.5 Gm Tube PO PRN PRN Hypoglycemia Protocol Dextrose 1,000 mls @ 100 mls/hr 08/06/24 22:10 Dextrose 5% 1,000 Ml IVPB PRN PRN Hypoglycemia Protocol Insulin Aspart 3 - 6 units 08/07/24 08:00 08/17/24 12:28 Insulin Aspart (*Bkc) 100 Units/Ml SUB-Q 4 units TIDWM [facility] Administration Protocol Insulin Aspart 1 - 3 units 08/07/24 21:00 08/16/24 21:24 Insulin Aspart (*Bkc) 100 Units/Ml SUB-Q 2 units HS [facility] Administration Protocol Insulin Glargine 10 units 08/16/24 10:45 Insulin Glargine (*Bkc) 100 Units/Ml SUB-Q DAILY [facility] Isosorbide Dinitrate 5 mg 08/09/24 21:00 08/17/24 08:49 Isosorbide Dinitrate 5 Mg Tablet PO 5 mg Q12HR NICOLE Administration Levothyroxine Sodium 100 mcg 08/08/24 06:30 08/17/24 06:01 Levothyroxine Sodium 100 Mcg Tablet PO 100 mcg DAILY@0630 [facility] Administration Memantine 10 mg 08/06/24 21:15 08/17/24 08:49 Memantine 10 Mg Tablet PO 10 mg Q12HR NICOLE Administration Multivitamins/Minerals 1 tablet 08/07/24 09:00 08/17/24 08:49 Opti-Gen Tab PO 1 tablet Q12HR NICOLE Administration Mupirocin 1 applic 08/07/24 09:00 08/17/24 08:49 Mupirocin 2% Oint 22 Gm Tube TOPICAL 1 applic BID NICOLE Administration Nystatin 1 applic 08/06/24 21:12 Nystatin Ointment 15 Gm Tube TOPICAL BID PRN Rash Pantoprazole Sodium 40 mg 08/07/24 09:00 08/17/24 08:49 Pantoprazole 40 Mg Tablet PO 40 mg Q12HR NICOLE Administration Polyethylene Glycol 17 gm 08/14/24 13:40 Polyethylene Glycol 3350 17 Gm Powd.Pack PO QAM PRN Constipation Venlafaxine HCl 75 mg 08/07/24 09:00 08/17/24 08:48 Venlafaxine Hcl 75 Mg Tablet BY MOUTH 75 mg Q12HR NICOLE Administration Venlafaxine HCl 50 mg 08/07/24 09:00 08/17/24 08:48 Venlafaxine Hcl 25 Mg Tablet BY MOUTH 50 mg Q12HR NICOLE Administration Vitamin B Complex 1 cap 08/07/24 09:00 08/17/24 08:49 Vitamin B Complex Capsule PO 1 cap DAILY NICOLE Administration Radiology Results: ITS Impressions Chest CT 08/06/24 15:17 IMPRESSION: Moderate interstitial pulmonary edema. Trace bilateral pleural effusions. Renal Ultrasound 08/09/24 13:35 IMPRESSION: 1. Normal kidneys. No hydronephrosis. Chest X-Ray 08/11/24 13:18 IMPRESSION: 1. Airspace opacities in the lower lung zones with worsening on the left, consistent with atelectasis versus pneumonia. 2. Worsened small pleural effusions. Head CT 08/13/24 20:44 IMPRESSION: 1. Normal aging brain. Labs Labs: Laboratory Tests 08/17/24 06:24 08/17/24 06:24 Calcium 9.2 Phosphorus 2.6 Magnesium 1.9 Total Bilirubin 0.5 AST 19 ALT 15 Alkaline Phosphatase 154 H Total Protein 7.0 Albumin 3.4 L
--- NOTE | 2024-08-17 14:38 | WPDNEUROPN ---
Subjective Date/time seen: 08/17/24 14:38 Interval history: seen initially by Dr. Pelletier for metabolic encephalopathy with mild cognitive impairment, ataxia, diabetic neuropathy, paroxysmal atrial fibrillation, and insulin-dependent diabetes mellitus, has fluctuating mental status with underlying mental status dysfunction as well at this particular time her friend happened to be in the room her most recent CBC revealed her to be anemic but no leukocytosis, electrolyte imbalance, her CT scan is negative for the hydrocephalus or any intracranial bleed, renal ultrasound is normal and CT of the chest reveals only moderate interstitial pulmonary edema no effusion, EEG is abnormal due to the presence of bihemispheric theta and delta activity with low attenuation cortical activity intermittently. Considering her clinical status and the evaluation up until now she has ongoing neuro degenerative process compatible with the dementia and her multiple medication needs to be weaned of. The friend who was happened to be in the room suggested me to discuss with her son who is coming from [place] tomorrow. It will be better that we decrease the medications that is 1. Gabapentin 2. Depakote 3. BuSpar and 4. Bupropion obviously has to be done slowly after thorough discussion with her son and explaining the diagnosis itself. Objective Data Vital Signs Vital Signs: Vital Signs - 24 hr 08/16/24 16:00 08/16/24 20:00 08/16/24 20:25 Temperature Pulse Rate 109 H 115 H 111 H Respiratory Rate Blood Pressure Pulse Oximetry 08/16/24 20:25 08/16/24 21:27 08/16/24 23:39 Temperature 36.3 C L 36.4 C Pulse Rate 111 H 101 H 107 H Respiratory Rate 18 22 H Blood Pressure 127/90 130/93 H Pulse Oximetry 99 97 08/17/24 00:00 08/17/24 00:05 08/17/24 04:00 Temperature Pulse Rate 114 H 120 H 107 H Respiratory Rate Blood Pressure Pulse Oximetry 08/17/24 05:55 Temperature 36.4 C Pulse Rate 101 H Respiratory Rate 24 H Blood Pressure 127/64 Pulse Oximetry 97 Intake/Output Intake/Output: Intake & Output 08/14/24 08/15/24 08/16/24 08/17/24 23:59 23:59 23:59 23:59 Intake Total 630 2120 1590 0 Output Total 1000 2851 1900 800 Balance -370 -731 -310 -800 Meds/Results Medications: Active Medications Generic Name Dose Route Start Last Admin Trade Name Freq PRN Reason Stop Dose Admin Acetaminophen 650 mg 08/06/24 22:10 08/14/24 19:22 Acetaminophen 325 Mg Tablet PO 650 mg Q6H PRN Administration Mild Pain (1-3) or Fever Allopurinol 100 mg 08/07/24 09:00 08/17/24 08:49 Allopurinol 100 Mg Tablet PO 100 mg DAILY NICOLE Administration Amiodarone HCl 200 mg 08/06/24 21:15 08/16/24 20:25 Amiodarone Hcl 200 Mg Tablet PO 200 mg HS NICOLE Administration Amoxicillin/Clavulanate Potassium 1 tablet 08/15/24 12:15 08/17/24 08:49 Amoxicillin/Clavulanate K 875-125 Mg Tab PO 08/18/24 21:01 1 tablet Q12HR NICOLE Administration Apixaban 5 mg 08/06/24 21:20 08/12/24 09:51 Apixaban 5 Mg Tablet PO 5 mg Q12HR NICOLE Administration Bumetanide 1 mg 08/15/24 09:00 08/17/24 08:48 Bumetanide 1 Mg Tablet PO 1 mg DAILY NICOLE Administration Bupropion HCl 150 mg 08/07/24 09:00 08/17/24 08:49 Bupropion Hcl Xl (24 Hr) 150 Mg Tabcr PO 150 mg DAILY NICOLE Administration Buspirone HCl 15 mg 08/07/24 09:00 08/17/24 08:48 Buspirone Hcl 5 Mg Tablet PO 15 mg DAILY NICOLE Administration Calcium Carbonate 500 mg 08/07/24 09:00 08/17/24 08:49 Calcium/Vitamin D 500 Mg/5 Mcg (200 I.U.) Tablet PO 500 mg QAM NICOLE Administration Carvedilol 12.5 mg 08/17/24 21:00 Carvedilol 12.5 Mg Tablet PO Q12HR NICOLE Dextrose 12.5 gm 08/06/24 22:10 Dextrose 50% 25 Gm/50 Ml Syringe IV PUSH PRN PRN Hypoglycemia Protocol Divalproex Sodium 500 mg 08/06/24 21:50 08/16/24 20:25 Divalproex Sodium Er 500 Mg Tab.24h PO 500 mg HS NICOLE Administration Docusate Sodium 100 mg 08/14/24 13:40 Docusate Sodium 100 Mg Capsule PO Q12H PRN Constipation Doxycycline Hyclate 100 mg 08/15/24 12:15 08/17/24 08:48 Doxycycline Hyclate 100 Mg Tablet PO 08/19/24 21:01 100 mg Q12HR NICOLE Administration Epoetin Ajit-epbx 10,000 units 08/13/24 09:00 08/16/24 08:14 Epoetin Ajit-Epbx 10,000 Units/Ml Vial SUB-Q 10,000 units TUTHSA@09 NICOLE Administration Famotidine 20 mg 08/06/24 21:20 08/16/24 20:26 Famotidine 20 Mg Tablet PO 20 mg HS NICOLE Administration Ferrous Sulfate 142 mg 08/08/24 08:00 08/17/24 08:49 Ferrous Sulfate Dried 142 Mg Tabcr PO 142 mg DAILY@0800 NICOLE Administration Glucagon 1 mg 08/06/24 22:10 Glucagon For Inj 1 Mg Vial IM PRN PRN Hypoglycemia Protocol Glucose 15 gm 08/06/24 22:10 Glucose Oral Gel 15 Gm Of Glucse In 37.5 Gm Tube PO PRN PRN Hypoglycemia Protocol Dextrose 1,000 mls @ 100 mls/hr 08/06/24 22:10 Dextrose 5% 1,000 Ml IVPB PRN PRN Hypoglycemia Protocol Insulin Aspart 3 - 6 units 08/07/24 08:00 08/17/24 12:28 Insulin Aspart (*Bkc) 100 Units/Ml SUB-Q 4 units TIDWM NICOLE Administration Protocol Insulin Aspart 1 - 3 units 08/07/24 21:00 08/16/24 21:24 Insulin Aspart (*Bkc) 100 Units/Ml SUB-Q 2 units HS NICOLE Administration Protocol Insulin Glargine 10 units 08/16/24 10:45 Insulin Glargine (*Bkc) 100 Units/Ml SUB-Q DAILY [facility] Isosorbide Dinitrate 5 mg 08/09/24 21:00 08/17/24 08:49 Isosorbide Dinitrate 5 Mg Tablet PO 5 mg Q12HR NICOLE Administration Levothyroxine Sodium 100 mcg 08/08/24 06:30 08/17/24 06:01 Levothyroxine Sodium 100 Mcg Tablet PO 100 mcg DAILY@0630 NICOLE Administration Memantine 10 mg 08/06/24 21:15 08/17/24 08:49 Memantine 10 Mg Tablet PO 10 mg Q12HR NICOLE Administration Multivitamins/Minerals 1 tablet 08/07/24 09:00 08/17/24 08:49 Opti-Gen Tab PO 1 tablet Q12HR NICOLE Administration Mupirocin 1 applic 08/07/24 09:00 08/17/24 08:49 Mupirocin 2% Oint 22 Gm Tube TOPICAL 1 applic BID NICOLE Administration Nystatin 1 applic 08/06/24 21:12 Nystatin Ointment 15 Gm Tube TOPICAL BID PRN Rash Pantoprazole Sodium 40 mg 08/07/24 09:00 08/17/24 08:49 Pantoprazole 40 Mg Tablet PO 40 mg Q12HR NICOLE Administration Polyethylene Glycol 17 gm 08/14/24 13:40 Polyethylene Glycol 3350 17 Gm Powd.Pack PO QAM PRN Constipation Venlafaxine HCl 75 mg 08/07/24 09:00 08/17/24 08:48 Venlafaxine Hcl 75 Mg Tablet BY MOUTH 75 mg Q12HR NICOLE Administration Venlafaxine HCl 50 mg 08/07/24 09:00 08/17/24 08:48 Venlafaxine Hcl 25 Mg Tablet BY MOUTH 50 mg Q12HR NICOLE Administration Vitamin B Complex 1 cap 08/07/24 09:00 08/17/24 08:49 Vitamin B Complex Capsule PO 1 cap DAILY NICOLE Administration Radiology Results: ITS Impressions Chest CT 08/06/24 15:17 IMPRESSION: Moderate interstitial pulmonary edema. Trace bilateral pleural effusions. Renal Ultrasound 08/09/24 13:35 IMPRESSION: 1. Normal kidneys. No hydronephrosis. Chest X-Ray 08/11/24 13:18 IMPRESSION: 1. Airspace opacities in the lower lung zones with worsening on the left, consistent with atelectasis versus pneumonia. 2. Worsened small pleural effusions. Head CT 08/13/24 20:44 IMPRESSION: 1. Normal aging brain. Labs Labs: Laboratory Results - last 24 hr 08/16/24 08/16/24 08/17/24 16:40 21:09 06:24 WBC 7.9 RBC 3.66 L Hgb 9.6 L Hct 32.8 L MCV 89.6 MCH 26.2 MCHC 29.3 L RDW 17.2 H Plt Count 338 MPV 9.3 Immature Gran % (Auto) 0.5 Neut % (Auto) 65.7 Lymph % (Auto) 19.9 [place] % (Auto) 7.1 Eos % (Auto) 6.0 H Baso % (Auto) 0.8 Lymph # (Auto) 1.58 [place] # (Auto) 0.6 Eos # (Auto) 0.5 H Baso # (Auto) 0.1 Abs Immat Gran (auto) 0.04 H Absolute Neuts (auto) 5.2 Absolute Nucleated RBC 0.000 Nucleated RBC % 0.0 Platelet Estimate Adequate Macrocytosis 1+ Schistocytes None seen Sodium 135 L Potassium 3.5 Chloride 96 L Carbon Dioxide 36 H Anion Gap 3 L BUN 27 H Creatinine 2.00 H Estim Creat Clear Calc 27 Estimated GFR 24 L Glucose 207 H POC Capillary Glucose 300 H 270 H Calcium 9.2 Phosphorus 2.6 Magnesium 1.9 Total Bilirubin 0.5 AST 19 ALT 15 Alkaline Phosphatase 154 H Total Protein 7.0 Albumin 3.4 L 08/17/24 08/17/24 08:26 12:02 WBC RBC Hgb Hct MCV MCH MCHC RDW Plt Count MPV Immature Gran % (Auto) Neut % (Auto) Lymph % (Auto) [place] % (Auto) Eos % (Auto) Baso % (Auto) Lymph # (Auto) [place] # (Auto) Eos # (Auto) Baso # (Auto) Abs Immat Gran (auto) Absolute Neuts (auto) Absolute Nucleated RBC Nucleated RBC % Platelet Estimate Macrocytosis Schistocytes Sodium Potassium Chloride Carbon Dioxide Anion Gap BUN Creatinine Estim Creat Clear Calc Estimated GFR Glucose POC Capillary Glucose 217 H 272 H Calcium Phosphorus Magnesium Total Bilirubin AST ALT Alkaline Phosphatase Total Protein Albumin
[2024-08-17 16:38] LABS: Glucose Point of Care 244 mg/dl (65-105)
[2024-08-17] MEDS: carvediloL 12.5 MG TABLET PO (20:34)
[2024-08-17] MEDS: DIVALPROEX SODIUM ER 500 MG TAB.24H PO (20:35)
[2024-08-17] MEDS: FAMOTIDINE 20 MG TABLET PO (20:35)
[2024-08-17 21:04] LABS: Glucose Point of Care 216 mg/dl (65-105)
[2024-08-18] VITALS (12 sets, daily range): BP systolic 92–137; BP diastolic 52–85; PULSE 54–133; RESP 16–18; TEMP 36.1–36.6; O2SAT 95–99
[2024-08-18] MEDS: LEVOTHYROXINE SODIUM 100 MCG TABLET PO (05:30)
[2024-08-18 08:03] LABS: Glucose Point of Care 222 mg/dl (65-105)
[2024-08-18 08:14] LABS: Basophils Absolute Auto 0.1 K/mm3 (0.0-0.1); Eosinophils Absolute Auto 0.4 K/mm3 (0-0.3); Eosinophils Percent Auto 5.2 % (0-4.4); Hematocrit 31.6 % (37.0-47.0); Hemoglobin 9.4 g/dL (12.0-15.0); Immature Granulocyte Absolute 0.04 K/mm3 (0.00-0.031); Immature Granulocyte Percent A 0.5 % (0-0.5); Lymphocytes Absolute Auto 1.82 K/mm3 (0.9-3.2); Mean Corpuscular HGB Conc 29.7 g/dl (32-36); Mean Corpuscular Hemoglobin 26.7 pg (26-34); Mean Corpuscular Volume 89.8 fl (80-100); Mean Platelet Volume 9.2 fl (7.4-10.4); Monocytes Absolute Auto 0.5 K/mm3 (0.1-0.6); Monocytes Percent Auto 6.1 % (2.6-8.5); Neutrophils Absolute Auto 5.4 K/mm3 (1.3-6.7); Neutrophils Percent Auto 65.2 % (45.5-73.1); Platelet Count Result 297 k/mm3 (150-375); Red Blood Count 3.52 M/mm3 (4.2-5.4); Red Cell Distribution Width 17.4 % (11.5-14.5); White Blood Count 8.3 K/mm3 (4.5-10.0)
[2024-08-18 08:26] LABS: Alanine Aminotransferase 16 U/L (6-35); Albumin Level 3.4 g/dL (3.5-5.1); Alkaline Phosphatase 134 U/L (38-126); Anion Gap 4 mmol/L (4-12); Aspartate Amino Transferase 20 U/L (14-36); Bilirubin,Total 0.5 mg/dL (0.2-1.3); Blood Urea Nitrogen 31 mg/dL (7-17); Calcium 9.3 mg/dL (8.4-10.2); Carbon Dioxide 35 mmol/L (22-30); Chloride 98 mmol/L (98-107); Estimated CRCL calculation 24 ml/min; Estimated Glomerular Filt Rate 22; Glucose 207 mg/dL (65-110); Magnesium 1.8 mg/dL (1.6-2.3); Phosphorus 2.9 mg/dL (2.5-4.5); Potassium 3.8 mmol/L (3.4-5.0); Sodium 137 mmol/L (137-145)
--- NOTE | 2024-08-18 08:39 | PM.IMPN ---
Progress Note: A&P Assessment and Plan (1) Altered mental status: Qualifiers: Altered mental status type: unspecified Qualified Code(s): R41.82 - Altered mental status, unspecified Code(s): R41.82 - Altered mental status, unspecified Status: Resolved Assessment and Plan: ua was collected,chest xray done to rule out any infectious causes - son states that pt has problems with normal activities like eating-and has episodes of confusion, ?blanking out - head ct unremarkable -appreciate neurology recom. harrison stopped she is pretty much at her base level with some episodes of forgetfulness. (2) Acute respiratory failure with hypoxia: Code(s): J96.01 - Acute respiratory failure with hypoxia Status: Acute Assessment and Plan: Per chart review, according to EMS her SpO2 was 84% on room air and she was placed on a non-rebreather at 15 L with some improvement. Baseline RA. Likely secondary to CHF exacerbation. - Back to baseline RA - Wean as tolerated for SpO2 > 90 08/11- will order chest xray since oxygen requirements increased Chest XR: atelectasis vs pneumonia- will treat as pneumonia in setting increased oxygen demands and confusion. Remains on room air (3) Paroxysmal atrial fibrillation: Code(s): I48.0 - Paroxysmal atrial fibrillation Status: Chronic Assessment and Plan: - Current home medication: Amiodarone 200 mg daily , Coreg 6.25 mg BID, Eliquis 5 mg BID EKG 08/16: Afib RVR HR 121 Patient was noted to be in afib RVR with HR 121 as seen on EKG. Overnight MD ordered amiodarone 200 mg x1 at that time. Patient remains in afib RVR with HR 110-130s. Asymptomatic. Attempted to call Dr. Griffith and left a voicemail. Patient coreg increased to 12.5 mg BID on 08/17. 08/18: Patient hypotension and remains in afib RVR HR 120-130s, changed coreg to metoprolol given less of an impact on BP. Discussed with cardiology [employer] ESTIMATOR and will start on metoprolol 25 mg q6H. Monitor. (4) Pneumonia: Qualifiers: Laterality: bilateral Lung location: unspecified part of lung Pneumonia type: due to unspecified organism Qualified Code(s): J18.9 - Pneumonia, unspecified organism Code(s): J18.9 - Pneumonia, unspecified organism Status: Resolved Assessment and Plan: CXR 08/11: 1. Airspace opacities in the lower lung zones with worsening on the left, consistent with atelectasis versus pneumonia. 2. Worsened small pleural effusions. - started on doxy and augmentin course to be completed on 08/19 - Viral PCR: negative for Flu/COVID/RSV - weaned back to baseline room air - Monitor vital signs, I&Os, neuro status and patient is a fall risk - Follow WBC, serum electrolytes, temperature curves and cultures (5) Urinary tract infection: Code(s): N39.0 - Urinary tract infection, site not specified Status: Acute Assessment and Plan: ua was collected 08/11 due to increased confusion. start cefepime to cover uti/pneumonia urine culture: klebsiella pneumoniae pansensitive switched to PO antibiotics Augmentin- last dose 08/18 9 pm (6) Acute kidney injury superimposed on chronic kidney disease: Code(s): N17.9 - Acute kidney failure, unspecified; N18.9 - Chronic kidney disease, unspecified Status: Acute Assessment and Plan: Per nephrology note on 07/29, baseline creatinine fluctuates to extremes -- anywhere from 1.6 - 2.4mg/dl (in the last year) - BUN/Cr 31/2.2 on am labs - Worsening Cr likely related to patients ongoing diuresis for CHF exacerbation (Bumex made daily instead of BID) vs overcontrol of her BP per nephrology note consider having BP range closer to 150s systolic - Monitor renal function and I/O - Avoid nephrotoxic medications - Renally dose medications - Nephrology consulted, appreciate recommendations (7) Type 2 diabetes mellitus with hyperglycemia, with long-term current use of insulin: Code(s): E11.65 - Type 2 diabetes mellitus with hyperglycemia; Z79.4 - intermediate card tender (current) use of insulin Status: Chronic Assessment and Plan: home insulin toujeo- 45 units at hs, ss14 units of lispro Continue basal insulin. Initiate sliding scale insulin, Accu-Cheks, and hypoglycemic protocol. will decrease lantus this am- 20 units (from 40) as few lower readings in am, protein snacks at hs-monitor 8- bs low this am- will hold lantus until PO intake improves 08/15 hold insulin 08/16 bs this am 177- will order 10 units of lantus and ss. monitor as intake improved. 08/18 bs this am 207 - will increase Lantus dose from 10 units to 15 units (8) Anemia: Qualifiers: Anemia type: unspecified type Qualified Code(s): D64.9 - Anemia, unspecified Code(s): D64.9 - Anemia, unspecified Status: Acute Assessment and Plan: Iron low -started on iron supplementation - f/u with pcp in 2-3 month for recheck (9) Hypothyroidism (acquired): Code(s): E03.9 - Hypothyroidism, unspecified Status: Acute Assessment [place]: [place] [address] currently on 75 mcg levothyroxine Will increase to 100 mcg on 08/07 and will need TSH recheck in 6-8 weeks as an outtpt- mid to end of October (10) Coronary artery disease: Code(s): I25.10 - Atherosclerotic heart disease of [place] coronary artery without angina pectoris Status: Acute Assessment and Plan: Chronic, continue home medications. (11) Obstructive sleep apnea on CPAP: Code(s): G47.33 - Obstructive sleep apnea (adult) (pediatric); Z99.89 - Dependence on other enabling machines and devices Status: Chronic Assessment and Plan: Does not use CPAP at home. ABG ordered. Time Spent With Patient Time with patient: 25 - 35 minutes Subjective Date/time seen: 08/18/24 08:39 Interval history: 78-year-old female with coronary artery disease and history of stents, paroxysmal atrial fibrillation on anticoagulation, diastolic congestive heart failure, pulmonary hypertension, obstructive sleep apnea on CPAP, hypertension, hyperlipidemia, chronic kidney disease, anemia, type 2 diabetes mellitus, memory impairment, C difficile diarrhea, depression, suicide attempt in April 2024, and other comorbidities who presented to the emergency department via EMS from home for evaluation of chest pain and shortness of breath. Patient is pleasant lying comfortably in bed. Remains AOx2 (self, place). She continues to be in asymptomatic afib RVR to the 120-130s. She denies chest pain, shortness of breath and palpitations. Discussed patient with Cardiology [employer] ESTIMATOR and will change her to metoprolol 25 mg q6H to better rate control. Patient has no other complaints denying nausea/vomiting and abdominal pain. Review of Systems Review of Systems: 12 systems were reviewed and are negative except for as per HPI. Exam Narrative: AF HR 103 RR 18 SPO2 98 BP 92/52 General: female in no acute respiratory distress who is nontoxic appearing, sitting up in bed HEENT: Normocephalic. Atraumatic. Extraocular movement intact. Sclera clear and anicteric. No facial asymmetry. Chest: Lungs are clear to auscultation bilaterally. No wheezes or crackles. CV: Heart was irregularly irregular rhythm and tachycardic. S1-S2. No murmurs, gallops, or rubs. Abd: Abdomen was soft. Nontender. Nondistended. Positive bowel sounds. No organomegaly or masses. Ext: No clubbing, cyanosis, or edema. 2+ DP pulses bilaterally. Neuro: Patient is alert and oriented x2 (person, place). Speech is clear. Objective Data Vital Signs Vital Signs: Vital Signs - 24 hr 08/17/24 12:00 08/17/24 14:26 08/17/24 16:00 Temperature 97.2 F L Pulse Rate 118 H 103 H 130 H Respiratory Rate 18 Blood Pressure 128/93 H Pulse Oximetry 99 08/17/24 20:00 08/17/24 20:34 08/17/24 20:35 Temperature Pulse Rate 137 H 128 H 128 H Respiratory Rate Blood Pressure Pulse Oximetry 08/17/24 21:21 08/18/24 00:00 08/18/24 04:00 Temperature 97.9 F Pulse Rate 120 H 112 H 119 H Respiratory Rate 20 Blood Pressure 154/79 H Pulse Oximetry 100 08/18/24 05:55 Temperature 97.0 F L Pulse Rate 103 H Respiratory Rate 18 Blood Pressure 92/52 L Pulse Oximetry 98 Intake/Output Intake/Output: Intake & Output 08/15/24 08/16/24 08/17/24 08/18/24 23:59 23:59 23:59 23:59 Intake Total 2120 1590 150 100 Output Total 2851 1900 1150 360 [facility] -731 -310 -1000 -260 Meds/Results Medications: Active Medications Generic Name Dose Route Start Last Admin Trade Name Freq PRN Reason Stop Dose Admin Acetaminophen 650 mg 08/06/24 22:10 08/14/24 19:22 Acetaminophen 325 Mg Tablet PO 650 mg Q6H PRN Administration Mild Pain (1-3) or Fever Allopurinol 100 mg 08/07/24 09:00 08/17/24 08:49 Allopurinol 100 Mg Tablet PO 100 mg DAILY NICOLE Administration Amiodarone HCl 200 mg 08/06/24 21:15 08/17/24 20:35 Amiodarone Hcl 200 Mg Tablet PO 200 mg HS NICOLE Administration Amoxicillin/Clavulanate Potassium 1 tablet 08/15/24 12:15 08/17/24 20:35 Amoxicillin/Clavulanate K 875-125 Mg Tab PO 08/18/24 21:01 1 tablet Q12HR NICOLE Administration Apixaban 5 mg 08/06/24 21:20 08/12/24 09:51 Apixaban 5 Mg Tablet PO 5 mg Q12HR NICOLE Administration Bumetanide 1 mg 08/15/24 09:00 08/17/24 08:48 Bumetanide 1 Mg Tablet PO 1 mg DAILY NICOLE Administration Bupropion HCl 150 mg 08/07/24 09:00 08/17/24 08:49 Bupropion Hcl Xl (24 Hr) 150 Mg Tabcr PO 150 mg DAILY NICOLE Administration Buspirone HCl 15 mg 08/07/24 09:00 08/17/24 08:48 Buspirone Hcl 5 Mg Tablet PO 15 mg DAILY [facility] Administration Calcium Carbonate 500 mg 08/07/24 09:00 08/17/24 08:49 Calcium/Vitamin D 500 Mg/5 Mcg (200 I.U.) Tablet PO 500 mg QAM NICOLE Administration Dextrose 12.5 gm 08/06/24 22:10 Dextrose 50% 25 Gm/50 Ml Syringe IV PUSH PRN PRN Hypoglycemia Protocol Divalproex Sodium 500 mg 08/06/24 21:50 08/17/24 20:35 Divalproex Sodium Er 500 Mg Tab.24h PO 500 mg HS [facility] Administration Docusate Sodium 100 mg 08/14/24 13:40 Docusate Sodium 100 Mg Capsule PO Q12H PRN Constipation Doxycycline Hyclate 100 mg 08/15/24 12:15 08/17/24 20:34 Doxycycline Hyclate 100 Mg Tablet PO 08/19/24 21:01 100 mg Q12HR NICOLE Administration Epoetin Ajit-epbx 10,000 units 08/13/24 09:00 08/16/24 08:14 Epoetin Ajit-Epbx 10,000 Units/Ml Vial SUB-Q 10,000 units TUTHSA@09 [facility] Administration Famotidine 20 mg 08/06/24 21:20 08/17/24 20:35 Famotidine 20 Mg Tablet PO 20 mg HS [facility] Administration Ferrous Sulfate 142 mg 08/08/24 08:00 08/17/24 08:49 Ferrous Sulfate Dried 142 Mg Tabcr PO 142 mg DAILY@0800 [facility] Administration Glucagon 1 mg 08/06/24 22:10 Glucagon For Inj 1 Mg Vial IM PRN PRN Hypoglycemia Protocol Glucose 15 gm 08/06/24 22:10 Glucose Oral Gel 15 Gm Of Glucse In 37.5 Gm Tube PO PRN PRN Hypoglycemia Protocol Dextrose 1,000 mls @ 100 mls/hr 08/06/24 22:10 Dextrose 5% 1,000 Ml IVPB PRN PRN Hypoglycemia Protocol Insulin Aspart 3 - 6 units 08/07/24 08:00 08/17/24 17:34 Insulin Aspart (*Bkc) 100 Units/Ml SUB-Q 3 units TIDWM [facility] Administration Protocol Insulin Aspart 1 - 3 units 08/07/24 21:00 08/17/24 21:20 Insulin Aspart (*Bkc) 100 Units/Ml SUB-Q 1 units HS [facility] Administration Protocol Insulin Glargine 10 units 08/16/24 10:45 Insulin Glargine (*Bkc) 100 Units/Ml SUB-Q DAILY [facility] Isosorbide Dinitrate 5 mg 08/09/24 21:00 08/17/24 20:34 Isosorbide Dinitrate 5 Mg Tablet PO 5 mg Q12HR [facility] Administration Levothyroxine Sodium 100 mcg 08/08/24 06:30 08/18/24 05:30 Levothyroxine Sodium 100 Mcg Tablet PO 100 mcg DAILY@0630 [facility] Administration Memantine 10 mg 08/06/24 21:15 08/17/24 20:34 Memantine 10 Mg Tablet PO 10 mg Q12HR [facility] Administration Metoprolol Tartrate 12.5 mg 08/18/24 08:40 Metoprolol Tartrate 12.5 Mg Tablet PO Q6H [facility] Multivitamins/Minerals 1 tablet 08/07/24 09:00 08/17/24 20:34 Opti-Gen Tab PO 1 tablet Q12HR [facility] Administration Mupirocin 1 applic 08/07/24 09:00 08/17/24 17:34 Mupirocin 2% Oint 22 Gm Tube TOPICAL 1 applic BID NICOLE Administration Nystatin 1 applic 08/06/24 21:12 Nystatin Ointment 15 Gm Tube TOPICAL BID PRN Rash Pantoprazole Sodium 40 mg 08/07/24 09:00 08/17/24 20:34 Pantoprazole 40 Mg Tablet PO 40 mg Q12HR [facility]ICOLE Administration Polyethylene Glycol 17 gm 08/14/24 13:40 Polyethylene Glycol 3350 17 Gm Powd.Pack PO QAM PRN Constipation Venlafaxine HCl 75 mg 08/07/24 09:00 08/17/24 20:34 Venlafaxine Hcl 75 Mg Tablet BY MOUTH 75 mg Q12HR NICOLE Administration Venlafaxine HCl 50 mg 08/07/24 09:00 08/17/24 20:33 Venlafaxine Hcl 25 Mg Tablet BY MOUTH 50 mg Q12HR NICOLE Administration Vitamin B Complex 1 cap 08/07/24 09:00 08/17/24 08:49 Vitamin B Complex Capsule PO 1 cap DAILY NICOLE Administration Radiology Results: ITS Impressions Chest CT 08/06/24 15:17 IMPRESSION: Moderate interstitial pulmonary edema. Trace bilateral pleural effusions. Renal Ultrasound 08/09/24 13:35 IMPRESSION: 1. Normal kidneys. No hydronephrosis. Chest X-Ray 08/11/24 13:18 IMPRESSION: 1. Airspace opacities in the lower lung zones with worsening on the left, consistent with atelectasis versus pneumonia. 2. Worsened small pleural effusions. Head CT 08/13/24 20:44 IMPRESSION: 1. Normal aging brain. Labs Labs: Laboratory Results - last 24 hr 08/17/24 08/17/24 08/17/24 12:02 16:35 20:47 Sodium Potassium Chloride Carbon Dioxide Anion Gap BUN Creatinine Estim Creat Clear Calc Estimated GFR Glucose POC Capillary Glucose 272 H 244 H 216 H Calcium Phosphorus Magnesium Total Bilirubin AST ALT Alkaline Phosphatase Total Protein Albumin 08/18/24 08/18/24 07:43 07:54 Sodium 137 Potassium 3.8 Chloride 98 Carbon Dioxide 35 H Anion Gap 4 BUN 31 H Creatinine 2.20 H Estim Creat Clear Calc 24 Estimated GFR 22 L Glucose 207 H POC Capillary Glucose 222 H Calcium 9.3 Phosphorus 2.9 Magnesium 1.8 Total Bilirubin 0.5 AST 20 ALT 16 Alkaline Phosphatase 134 H Total Protein 7.0 Albumin 3.4 L Quality VTE Prophylaxis VTE prophylaxis: pharmacologic ordered (on apixaban)
[2024-08-18 08:54] LABS: Hypochromasia 1+; Platelet Estimate Adequate (Adequate); Schistocytes None Seen
[2024-08-18] MEDS: INSULIN ASPART (*BKC) 100 UNITS/ML SUB-Q ×4 (09:17→21:08)
[2024-08-18] MEDS: EPOETIN ALFA-EPBX 10,000 UNITS/ML VIAL 10000 UNITS SUB-Q (09:18)
[2024-08-18] MEDS: busPIRone HCL 5 MG TABLET 15 MG PO (09:20)
[2024-08-18] MEDS: PANTOPRAZOLE 40 MG TABLET PO ×2 (09:20→21:07)
[2024-08-18] MEDS: DOXYCYCLINE HYCLATE 100 MG TABLET PO ×2 (09:20→21:08)
[2024-08-18] MEDS: VENLAFAXINE HCL 75 MG TABLET BY MOUTH ×2 (09:20→21:08)
[2024-08-18] MEDS: VENLAFAXINE HCL 25 MG TABLET 50 MG BY MOUTH ×2 (09:20→21:08)
[2024-08-18] MEDS: AMOXICILLIN/CLAVULANATE K 875-125 MG TAB 1 TABLET PO ×2 (09:20→21:07)
[2024-08-18] MEDS: CALCIUM/VITAMIN D 500 MG/5 MCG (200 I.U.) TABLET PO (09:20)
[2024-08-18] MEDS: buPROPion HCL XL (24 HR) 150 MG TABCR PO (09:20)
[2024-08-18] MEDS: ISOSORBIDE DINITRATE 5 MG TABLET PO ×2 (09:20→21:07)
[2024-08-18] MEDS: VITAMIN B COMPLEX CAPSULE 1 CAP PO (09:21)
[2024-08-18] MEDS: FERROUS SULFATE DRIED 142 MG TABCR PO (09:21)
[2024-08-18] MEDS: allopurinoL 100 MG TABLET PO (09:21)
[2024-08-18] MEDS: BUMETANIDE 1 MG TABLET PO (09:21)
[2024-08-18] MEDS: OPTI-GEN TAB 1 TABLET PO ×2 (09:21→21:07)
[2024-08-18] MEDS: MEMANTINE 10 MG TABLET PO ×2 (09:21→21:08)
[2024-08-18] MEDS: MUPIROCIN 2% OINT 22 GM TUBE 1 APPLIC TOPICAL ×2 (09:22→15:52)
[2024-08-18] MEDS: METOPROLOL TARTRATE 12.5 MG TABLET PO (09:26)
[2024-08-18 11:59] LABS: Glucose Point of Care 238 mg/dl (65-105)
[2024-08-18] MEDS: METOPROLOL TARTRATE 25 MG TABLET PO ×2 (13:07→17:34)
[2024-08-18 17:13] LABS: Glucose Point of Care 335 mg/dl (65-105)
--- NOTE | 2024-08-18 17:22 | P.PNNEUR_ITS ---
Progress Note: A&P Assessment and Plan (1) Metabolic encephalopathy: Code(s): G93.41 - Metabolic encephalopathy Status: Acute Assessment and Plan: this may be result of superimposed infection and other metabolic problems including renal failure (2) Memory loss: Code(s): R41.3 - Other amnesia Status: Acute Assessment and Plan: She may have underlying degenerative dementia (3) Ataxia: Code(s): R27.0 - Ataxia, unspecified Status: Acute (4) Diabetic polyneuropathy: Code(s): E11.42 - Type 2 diabetes mellitus with diabetic polyneuropathy Status: Acute (5) CHF (congestive heart failure): Code(s): I50.9 - Heart failure, unspecified Status: Acute (6) Paroxysmal atrial fibrillation: Code(s): I48.0 - Paroxysmal atrial fibrillation Status: Chronic (7) Acute on chronic kidney failure: Code(s): N17.9 - Acute kidney failure, unspecified; N18.9 - Chronic kidney disease, unspecified Status: Acute Plan Patient may have underlying dementia with superimposed metabolic encephalopathy as the cause for her problem but nevertheless he is better since we have taken her off primary practice a Her GFR is 22 and creatinine is 2.2 and hemoglobin is 9.4. EEG shows diffuse background slowing consistent with a generalized encephalopathy.ll and Depakote and gabapentin. She is not complaining of any pain. We can continue the antidepressants as before. She has also Namenda which can be continued. Subjective Date/time seen: 08/18/24 17:22 Interval history: Patient is lot more alert however still confused. She is very pleasant and cooperative. She is off Depakote and a or other sedating medications but still on the anti depression which is reasonable considering the fact that she has a history of suicidal attempt. Current records were reviewed. She denies any new symptoms. Review of Systems Review of Systems: All systems reviewed & are unremarkable except as noted in HPI and below Exam Narrative: No aphasia or dysarthria. Pleasant and cooperative. Unable to name 5 colors or 5 foods or 5 cities however knows her name unable to tell me the month or the year. Difficulty in following 2 step commands. Cranial nerves injured testing intact. Moving both upper and lower limbs. No cogwheeling or involuntary movements. No additional new findings. Objective Data Vital Signs Vital Signs: Vital Signs - 24 hr 08/17/24 20:00 08/17/24 20:34 08/17/24 20:35 Temperature Pulse Rate 137 H 128 H 128 H Respiratory Rate Blood Pressure Pulse Oximetry Oxygen Delivery 08/17/24 21:21 08/18/24 00:00 08/18/24 04:00 Temperature 97.9 F Pulse Rate 120 H 112 H 119 H Respiratory Rate 20 Blood Pressure 154/79 H Pulse Oximetry 100 Oxygen Delivery 08/18/24 05:55 08/18/24 08:00 08/18/24 08:00 Temperature 97.0 F L Pulse Rate 103 H 124 H Respiratory Rate 18 Blood Pressure 92/52 L Pulse Oximetry 98 Oxygen Delivery Room Air 08/18/24 09:26 08/18/24 12:00 08/18/24 13:07 Temperature Pulse Rate 130 H 129 H 124 H Respiratory Rate Blood Pressure Pulse Oximetry Oxygen Delivery 08/18/24 14:00 08/18/24 16:00 Temperature 97.5 F L Pulse Rate 86 115 H Respiratory Rate 16 Blood Pressure 137/77 Pulse Oximetry 95 Oxygen Delivery Intake/Output Intake/Output: Intake & Output 08/15/24 08/16/24 08/17/24 08/18/24 23:59 23:59 23:59 23:59 Intake Total 2120 1590 150 340 Output Total 2851 1900 1150 360 [facility] -731 -310 -1000 -20 Meds/Results Medications: Active Medications Generic Name Dose Route Start Last Admin Trade Name Freq PRN Reason Stop Dose Admin Acetaminophen 650 mg 08/06/24 22:10 08/14/24 19:22 Acetaminophen 325 Mg Tablet PO 650 mg Q6H PRN Administration Mild Pain (1-3) or Fever Allopurinol 100 mg 08/07/24 09:00 08/18/24 09:21 Allopurinol 100 Mg Tablet PO 100 mg DAILY NICOLE Administration Amiodarone HCl 200 mg 08/06/24 21:15 08/17/24 20:35 Amiodarone Hcl 200 Mg Tablet PO 200 mg HS NICOLE Administration Amoxicillin/Clavulanate Potassium 1 tablet 08/15/24 12:15 08/18/24 09:20 Amoxicillin/Clavulanate K 875-125 Mg Tab PO 08/18/24 21:01 1 tablet Q12HR NICOLE Administration Apixaban 5 mg 08/06/24 21:20 08/12/24 09:51 Apixaban 5 Mg Tablet PO 5 mg Q12HR NICOLE Administration Bumetanide 1 mg 08/15/24 09:00 08/18/24 09:21 Bumetanide 1 Mg Tablet PO 1 mg DAILY NICOLE Administration Bupropion HCl 150 mg 08/07/24 09:00 08/18/24 09:20 Bupropion Hcl Xl (24 Hr) 150 Mg Tabcr PO 150 mg DAILY NICOLE Administration Buspirone HCl 15 mg 08/07/24 09:00 08/18/24 09:20 Buspirone Hcl 5 Mg Tablet PO 15 mg DAILY NICOLE Administration Calcium Carbonate 500 mg 08/07/24 09:00 08/18/24 09:20 Calcium/Vitamin D 500 Mg/5 Mcg (200 I.U.) Tablet PO 500 mg QAM NICOLE Administration Dextrose 12.5 gm 08/06/24 22:10 Dextrose 50% 25 Gm/50 Ml Syringe IV PUSH PRN PRN Hypoglycemia Protocol Divalproex Sodium 500 mg 08/06/24 21:50 08/17/24 20:35 Divalproex Sodium Er 500 Mg Tab.24h PO 500 mg HS NICOLE Administration Docusate Sodium 100 mg 08/14/24 13:40 Docusate Sodium 100 Mg Capsule PO Q12H PRN Constipation Doxycycline Hyclate 100 mg 08/15/24 12:15 08/18/24 09:20 Doxycycline Hyclate 100 Mg Tablet PO 08/19/24 21:01 100 mg Q12HR NICOLE Administration Epoetin Ajit-epbx 10,000 units 08/13/24 09:00 08/18/24 09:18 Epoetin Ajit-Epbx 10,000 Units/Ml Vial SUB-Q 10,000 units TUTHSA@09 [facility] Administration Famotidine 20 mg 08/06/24 21:20 08/17/24 20:35 Famotidine 20 Mg Tablet PO 20 mg HS NICOLE Administration Ferrous Sulfate 142 mg 08/08/24 08:00 08/18/24 09:21 Ferrous Sulfate Dried 142 Mg Tabcr PO 142 mg DAILY@0800 NICOLE Administration Glucagon 1 mg 08/06/24 22:10 Glucagon For Inj 1 Mg Vial IM PRN PRN Hypoglycemia Protocol Glucose 15 gm 08/06/24 22:10 Glucose Oral Gel 15 Gm Of Glucse In 37.5 Gm Tube PO PRN PRN Hypoglycemia Protocol Dextrose 1,000 mls @ 100 mls/hr 08/06/24 22:10 Dextrose 5% 1,000 Ml IVPB PRN PRN Hypoglycemia Protocol Insulin Aspart 3 - 6 units 08/07/24 08:00 08/18/24 11:55 Insulin Aspart (*Bkc) 100 Units/Ml SUB-Q 3 units TIDWM NICOLE Administration Protocol Insulin Aspart 1 - 3 units 08/07/24 21:00 08/17/24 21:20 Insulin Aspart (*Bkc) 100 Units/Ml SUB-Q 1 units HS NICOLE Administration Protocol Insulin Glargine 15 units 08/18/24 08:46 Insulin Glargine (*Bkc) 100 Units/Ml SUB-Q DAILY [facility] Isosorbide Dinitrate 5 mg 08/09/24 21:00 08/18/24 09:20 Isosorbide Dinitrate 5 Mg Tablet PO 5 mg Q12HR NICOLE Administration Levothyroxine Sodium 100 mcg 08/08/24 06:30 08/18/24 05:30 Levothyroxine Sodium 100 Mcg Tablet PO 100 mcg DAILY@0630 NICOLE Administration Memantine 10 mg 08/06/24 21:15 08/18/24 09:21 Memantine 10 Mg Tablet PO 10 mg Q12HR NICOLE Administration Metoprolol Tartrate 25 mg 08/18/24 12:09 08/18/24 13:07 Metoprolol Tartrate 25 Mg Tablet PO 25 mg Q6HR NICOLE Administration Multivitamins/Minerals 1 tablet 08/07/24 09:00 08/18/24 09:21 Opti-Gen Tab PO 1 tablet Q12HR NICOLE Administration Mupirocin 1 applic 08/07/24 09:00 08/18/24 15:52 Mupirocin 2% Oint 22 Gm Tube TOPICAL 1 applic BID NICOLE Administration Nystatin 1 applic 08/06/24 21:12 Nystatin Ointment 15 Gm Tube TOPICAL BID PRN Rash Pantoprazole Sodium 40 mg 08/07/24 09:00 08/18/24 09:20 Pantoprazole 40 Mg Tablet PO 40 mg Q12HR NICOLE Administration Polyethylene Glycol 17 gm 08/14/24 13:40 Polyethylene Glycol 3350 17 Gm Powd.Pack PO QAM PRN Constipation Venlafaxine HCl 75 mg 08/07/24 09:00 08/18/24 09:20 Venlafaxine Hcl 75 Mg Tablet BY MOUTH 75 mg Q12HR NICOLE Administration Venlafaxine HCl 50 mg 08/07/24 09:00 08/18/24 09:20 Venlafaxine Hcl 25 Mg Tablet BY MOUTH 50 mg Q12HR NICOLE Administration Vitamin B Complex 1 cap 08/07/24 09:00 08/18/24 09:21 Vitamin B Complex Capsule PO 1 cap DAILY NICOLE Administration Radiology Results: ITS Impressions Chest CT 08/06/24 15:17 IMPRESSION: Moderate interstitial pulmonary edema. Trace bilateral pleural effusions. Renal Ultrasound 08/09/24 13:35 IMPRESSION: 1. Normal kidneys. No hydronephrosis. Chest X-Ray 08/11/24 13:18 IMPRESSION: 1. Airspace opacities in the lower lung zones with worsening on the left, consistent with atelectasis versus pneumonia. 2. Worsened small pleural effusions. Head CT 08/13/24 20:44 IMPRESSION: 1. Normal aging brain. Labs Labs: Laboratory Results - last 24 hr 08/17/24 08/18/24 08/18/24 20:47 07:43 07:54 WBC 8.3 RBC 3.52 L Hgb 9.4 L Hct 31.6 L MCV 89.8 MCH 26.7 MCHC 29.7 L RDW 17.4 H Plt Count 297 MPV 9.2 Immature Gran % (Auto) 0.5 Neut % (Auto) 65.2 Lymph % (Auto) 22.0 [place] % (Auto) 6.1 Eos % (Auto) 5.2 H Baso % (Auto) 1.0 Lymph # (Auto) 1.82 [place] # (Auto) 0.5 Eos # (Auto) 0.4 H Baso # (Auto) 0.1 Abs Immat Gran (auto) 0.04 H Absolute Neuts (auto) 5.4 Absolute Nucleated RBC 0.000 Nucleated RBC % 0.0 Platelet Estimate Adequate Hypochromasia 1+ Schistocytes None seen Sodium 137 Potassium 3.8 Chloride 98 Carbon Dioxide 35 H Anion Gap 4 BUN 31 H Creatinine 2.20 H Estim Creat Clear Calc 24 Estimated GFR 22 L Glucose 207 H POC Capillary Glucose 216 H 222 H Calcium 9.3 Phosphorus 2.9 Magnesium 1.8 Total Bilirubin 0.5 AST 20 ALT 16 Alkaline Phosphatase 134 H Total Protein 7.0 Albumin 3.4 L 08/18/24 08/18/24 11:49 16:44 WBC RBC Hgb Hct MCV MCH MCHC RDW Plt Count MPV Immature Gran % (Auto) Neut % (Auto) Lymph % (Auto) [place] % (Auto) Eos % (Auto) Baso % (Auto) Lymph # (Auto) [place] # (Auto) Eos # (Auto) Baso # (Auto) Abs Immat Gran (auto) Absolute Neuts (auto) Absolute Nucleated RBC Nucleated RBC % Platelet Estimate Hypochromasia Schistocytes Sodium Potassium Chloride Carbon Dioxide Anion Gap BUN Creatinine Estim Creat Clear Calc Estimated GFR Glucose POC Capillary Glucose 238 H 335 H Calcium Phosphorus Magnesium Total Bilirubin AST ALT Alkaline Phosphatase Total Protein Albumin
[2024-08-18 20:23] LABS: Glucose Point of Care 224 mg/dl (65-105)
[2024-08-18] MEDS: FAMOTIDINE 20 MG TABLET PO (21:05)
[2024-08-18] MEDS: DIVALPROEX SODIUM ER 500 MG TAB.24H PO (21:06)
[2024-08-18] MEDS: AMIODARONE HCL 200 MG TABLET PO (21:07)
[2024-08-19] VITALS (14 sets, daily range): BP systolic 117–130; BP diastolic 75–94; PULSE 110–129; RESP 16–20; TEMP 36.3–36.9; O2SAT 95–97; BMI 39.2
[2024-08-19] MEDS: METOPROLOL TARTRATE 25 MG TABLET PO ×5 (00:24→23:53)
[2024-08-19] MEDS: LEVOTHYROXINE SODIUM 100 MCG TABLET PO (06:23)
[2024-08-19 07:50] LABS: Glucose Point of Care 217 mg/dl (65-105)
--- NOTE | 2024-08-19 08:55 | P.PNIM_ITS ---
Progress Note: A&P Assessment and Plan (1) Altered mental status: Qualifiers: Altered mental status type: unspecified Qualified Code(s): R41.82 - Altered mental status, unspecified Code(s): R41.82 - Altered mental status, unspecified Status: Resolved Assessment and Plan: Patient may have underlying dementia with superimposed metabolic encephalopathy as the cause for her problem ua was collected,chest xray done to rule out any infectious causes - son states that pt has problems with normal activities like eating-and has episodes of confusion, ?blanking out she is pretty much at her base level with some episodes of forgetfulness. - head ct unremarkable -appreciate neurology recom. Phil stopped EEG shows diffuse background slowing consistent with a generalized encephalopathy. Continue the antidepressants as before. Namenda which can be continued. (2) Acute respiratory failure with hypoxia: Code(s): J96.01 - Acute respiratory failure with hypoxia Status: Acute Assessment and Plan: Per chart review, according to EMS her SpO2 was 84% on room air and she was placed on a non-rebreather at 15 L with some improvement. Baseline RA. Likely secondary to CHF exacerbation. - Back to baseline RA - Wean as tolerated for SpO2 > 90 08/11- will order chest xray since oxygen requirements increased Chest XR: atelectasis vs pneumonia- will treat as pneumonia in setting increased oxygen demands and confusion. Remains on room air (3) Paroxysmal atrial fibrillation: Code(s): I48.0 - Paroxysmal atrial fibrillation Status: Chronic Assessment and Plan: - Current home medication: Amiodarone 200 mg daily , Coreg 6.25 mg BID, Eliquis 5 mg BID EKG 08/16: Afib RVR HR 121 Patient was noted to be in afib RVR with HR 121 as seen on EKG. Overnight MD ordered amiodarone 200 mg x1 at that time. Patient remains in afib RVR with HR 110-130s. Asymptomatic. Attempted to call Dr. Griffith and left a voicemail. Patient coreg increased to 12.5 mg BID on 08/17. 08/18: Patient hypotension and remains in afib RVR HR 120-130s, changed coreg to metoprolol given less of an impact on BP. Discussed with cardiology [employer] PROFESSOR and will start on metoprolol 25 mg q6H. Monitor. 08/19: HR remains in the 110-120s occasionally 130s. Patient asymptomatic. Cardiology evaluated patient Continue metoprolol 25 mg q6H Discontinue amiodarone and started on diltiazem 30 mg q6H Monitor (4) Pneumonia: Qualifiers: Laterality: bilateral Lung location: unspecified part of lung Pneumonia type: due to unspecified organism Qualified Code(s): J18.9 - Pneumonia, unspecified organism Code(s): J18.9 - Pneumonia, unspecified organism Status: Resolved Assessment and Plan: CXR 08/11: 1. Airspace opacities in the lower lung zones with worsening on the left, consistent with atelectasis versus pneumonia. 2. Worsened small pleural effusions. - started on doxy and augmentin course to be completed on 08/19 - Viral PCR: negative for Flu/COVID/RSV - weaned back to baseline room air - Monitor vital signs, I&Os, neuro status and patient is a fall risk - Follow WBC, serum electrolytes, temperature curves and cultures (5) Urinary tract infection: Code(s): N39.0 - Urinary tract infection, site not specified Status: Acute Assessment and Plan: ua was collected 08/11 due to increased confusion. start cefepime to cover uti/pneumonia urine culture: klebsiella pneumoniae pansensitive switched to PO antibiotics Augmentin- last dose 08/18 9 pm (6) Acute kidney injury superimposed on chronic kidney disease: Code(s): N17.9 - Acute kidney failure, unspecified; N18.9 - Chronic kidney disease, unspecified Status: Acute Assessment and Plan: Per nephrology note on 07/29, baseline creatinine fluctuates to extremes -- anywhere from 1.6 - 2.4mg/dl (in the last year) - BUN/Cr 32/2.2 on am labs - Worsening Cr likely related to patients ongoing diuresis for CHF exacerbation (Bumex made daily instead of BID) vs overcontrol of her BP per nephrology note consider having BP range closer to 150s systolic - Monitor renal function and I/O - Avoid nephrotoxic medications - Renally dose medications - Nephrology consulted, appreciate recommendations (7) Type 2 diabetes mellitus with hyperglycemia, with long-term current use of insulin: Code(s): E11.65 - Type 2 diabetes mellitus with hyperglycemia; 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 Initiate sliding scale insulin, Accu-Cheks, and hypoglycemic protocol. will decrease lantus this am- 20 units (from 40) as few lower readings in am, protein snacks at hs-monitor 128- bs low this am- will hold lantus until PO intake improves 08/15 hold insulin 08/16 bs this am 177- will order 10 units of lantus and ss. monitor as intake improved. 08/18 bs this am 207 - will increase Lantus dose from 10 units to 15 units (8) Anemia: Qualifiers: Anemia type: unspecified type Qualified Code(s): D64.9 - Anemia, unspecified Code(s): D64.9 - Anemia, unspecified Status: Acute Assessment and Plan: Iron low -started on iron supplementation - f/u with pcp in 2-3 month for recheck (9) Hypothyroidism (acquired): Code(s): E03.9 - Hypothyroidism, unspecified Status: Acute Assessment [place]: [place] [id number] currently on 75 mcg levothyroxine Will increase to 100 mcg on 08/07 and will need TSH recheck in 6-8 weeks as an outtpt- mid to end of October (10) Coronary artery disease: Code(s): I25.10 - Atherosclerotic heart disease of [place] coronary artery without angina pectoris Status: Acute Assessment and Plan: Chronic, continue home medications. (11) Obstructive sleep apnea on CPAP: Code(s): G47.33 - Obstructive sleep apnea (adult) (pediatric); Z99.89 - Dependence on other enabling machines and devices Status: Chronic Assessment and Plan: Does not use CPAP at home. ABG ordered. Time Spent With Patient Time with patient: 25 - 35 minutes Subjective Date/time seen: 08/19/24 08:55 Interval history: 78-year-old female with coronary artery disease and history of stents, paroxysmal atrial fibrillation on anticoagulation, diastolic congestive heart failure, pulmonary hypertension, obstructive sleep apnea on CPAP, hypertension, hyperlipidemia, chronic kidney disease, anemia, type 2 diabetes mellitus, memory impairment, C difficile diarrhea, depression, suicide attempt in April 2024, and other comorbidities who presented to the emergency department via EMS from home for evaluation of chest pain and shortness of breath. Patient is pleasant lying in bed. She is alert only to self today, however patients family says that she is intermittently more confused. It was seen that patients ashlie has been on hold since Aug.13 for possible heart cath, however this was resumed today. Patient has no neuro deficits on exam concerning for stroke. Will continue to monitor. During assessment she has no complaints denying chest pain, shortness of breath, palpitations, nausea/vomiting and abdominal pain. She was evaluated by cardiology today as she remains in afib RVR. Discontinued amiodarone and started on diltiazem. Cardiology continues to follow. Review of Systems Review of Systems: 12 systems were reviewed and are negativ e except for as per HPI. Exam Narrative: AF HR 110 RR 20 SPO2 95 BP 130/75 General: female in no acute respiratory distress who is nontoxic appearing, sitting up in bed HEENT: Normocephalic. Atraumatic. Pupils are equal round and reactive to light. Extraocular movement intact. Sclera clear and anicteric. No facial asymmetry. Chest: Lungs are clear to auscultation bilaterally. No wheezes or crackles. CV: Heart was irregularly irregular rhythm and tachycardic. S1-S2. No murmurs, gallops, or rubs. Abd: Abdomen was soft. Nontender. Nondistended. Positive bowel sounds. No organomegaly or masses. Ext: No clubbing, cyanosis, or edema. 2+ DP pulses bilaterally. Neuro: Patient is alert to person. Follows commands. Speech is clear. Strength is symmetrical in pushes and pulls. Objective Data Vital Signs Vital Signs: Vital Signs - 24 hr 08/18/24 09:26 08/18/24 12:00 08/18/24 13:07 Temperature Pulse Rate 130 H 129 H 124 H Respiratory Rate Blood Pressure Pulse Oximetry 08/18/24 14:00 08/18/24 16:00 08/18/24 20:00 Temperature 97.5 F L 97.9 F Pulse Rate 86 115 H 62 Respiratory Rate 16 18 Blood Pressure 137/77 131/79 Pulse Oximetry 95 99 08/18/24 20:00 08/18/24 20:31 08/18/24 21:07 Temperature 97.9 F Pulse Rate 112 H 54 L 133 H Respiratory Rate 16 Blood Pressure 136/85 Pulse Oximetry 99 08/19/24 00:00 08/19/24 00:24 08/19/24 04:00 Temperature Pulse Rate 123 H 121 H 127 H Respiratory Rate Blood Pressure Pulse Oximetry 08/19/24 05:57 08/19/24 06:22 Temperature 97.3 F L Pulse Rate 118 H 115 H Respiratory Rate 16 Blood Pressure 117/86 Pulse Oximetry 96 Intake/Output Intake/Output: Intake & Output 08/16/24 08/17/24 08/18/24 08/19/24 23:59 23:59 23:59 23:59 Intake Total 1590 150 580 440 Output Total 1900 1150 660 700 Balance -310 -1000 -80 -260 Meds/Results Medications: Active Medications Generic Name Dose Route Start Last Admin Trade Name Freq PRN Reason Stop Dose Admin Acetaminophen 650 mg 08/06/24 22:10 08/14/24 19:22 Acetaminophen 325 Mg Tablet PO 650 mg Q6H PRN Administration Mild Pain (1-3) or Fever Allopurinol 100 mg 08/07/24 09:00 08/18/24 09:21 Allopurinol 100 Mg Tablet PO 100 mg DAILY NICOLE Administration Amiodarone HCl 200 mg 08/06/24 21:15 08/18/24 21:07 Amiodarone Hcl 200 Mg Tablet PO 200 mg HS NICOLE Administration Apixaban 5 mg 08/06/24 21:20 08/12/24 09:51 Apixaban 5 Mg Tablet PO 5 mg Q12HR NICOLE Administration Bumetanide 1 mg 08/15/24 09:00 08/18/24 09:21 Bumetanide 1 Mg Tablet PO 1 mg DAILY NICOLE Administration Bupropion HCl 150 mg 08/07/24 09:00 08/18/24 09:20 Bupropion Hcl Xl (24 Hr) 150 Mg Tabcr PO 150 mg DAILY NICOLE Administration Buspirone HCl 15 mg 08/07/24 09:00 08/18/24 09:20 Buspirone Hcl 5 Mg Tablet PO 15 mg DAILY NICOLE Administration Calcium Carbonate 500 mg 08/07/24 09:00 08/18/24 09:20 Calcium/Vitamin D 500 Mg/5 Mcg (200 I.U.) Tablet PO 500 mg QAM NICOLE Administration Dextrose 12.5 gm 08/06/24 22:10 Dextrose 50% 25 Gm/50 Ml Syringe IV PUSH PRN PRN Hypoglycemia Protocol Divalproex Sodium 500 mg 08/06/24 21:50 08/18/24 21:06 Divalproex Sodium Er 500 Mg Tab.24h PO 500 mg HS NICOLE Administration Docusate Sodium 100 mg 08/14/24 13:40 Docusate Sodium 100 Mg Capsule PO Q12H PRN Constipation Doxycycline Hyclate 100 mg 08/15/24 12:15 08/18/24 21:08 Doxycycline Hyclate 100 Mg Tablet PO 08/19/24 21:01 100 mg Q12HR NICOLE Administration Epoetin Ajit-epbx 10,000 units 08/13/24 09:00 08/18/24 09:18 Epoetin Ajit-Epbx 10,000 Units/Ml Vial SUB-Q 10,000 units TUTHSA@09 NICOLE Administration Famotidine 20 mg 08/06/24 21:20 08/18/24 21:05 Famotidine 20 Mg Tablet PO 20 mg HS NICOLE Administration Ferrous Sulfate 142 mg 08/08/24 08:00 08/18/24 09:21 Ferrous Sulfate Dried 142 Mg Tabcr PO 142 mg DAILY@0800 NICOLE Administration Glucagon 1 mg 08/06/24 22:10 Glucagon For Inj 1 Mg Vial IM PRN PRN Hypoglycemia Protocol Glucose 15 gm 08/06/24 22:10 Glucose Oral Gel 15 Gm Of Glucse In 37.5 Gm Tube PO PRN PRN Hypoglycemia Protocol Dextrose 1,000 mls @ 100 mls/hr 08/06/24 22:10 Dextrose 5% 1,000 Ml IVPB PRN PRN Hypoglycemia Protocol Insulin Aspart 3 - 6 units 08/07/24 08:00 08/18/24 17:35 Insulin Aspart (*Bkc) 100 Units/Ml SUB-Q 5 units TIDWM [facility] Administration Protocol Insulin Aspart 1 - 3 units 08/07/24 21:00 08/18/24 21:08 Insulin Aspart (*Bkc) 100 Units/Ml SUB-Q 1 units HS [facility] Administration Protocol Insulin Glargine 15 units 08/18/24 08:46 Insulin Glargine (*Bkc) 100 Units/Ml SUB-Q DAILY [facility] Isosorbide Dinitrate 5 mg 08/09/24 21:00 08/18/24 21:07 Isosorbide Dinitrate 5 Mg Tablet PO 5 mg Q12HR NICOLE Administration Levothyroxine Sodium 100 mcg 08/08/24 06:30 08/19/24 06:23 Levothyroxine Sodium 100 Mcg Tablet PO 100 mcg DAILY@0630 NICOLE Administration Memantine 10 mg 08/06/24 21:15 08/18/24 21:08 Memantine 10 Mg Tablet PO 10 mg Q12HR NICOLE Administration Metoprolol Tartrate 25 mg 08/18/24 12:09 08/19/24 06:22 Metoprolol Tartrate 25 Mg Tablet PO 25 mg Q6HR NICOLE Administration Multivitamins/Minerals 1 tablet 08/07/24 09:00 08/18/24 21:07 Opti-Gen Tab PO 1 tablet Q12HR NICOLE Administration Mupirocin 1 applic 08/07/24 09:00 08/18/24 15:52 Mupirocin 2% Oint 22 Gm Tube TOPICAL 1 applic BID NICOLE Administration Nystatin 1 applic 08/06/24 21:12 Nystatin Ointment 15 Gm Tube TOPICAL BID PRN Rash Pantoprazole Sodium 40 mg 08/07/24 09:00 08/18/24 21:07 Pantoprazole 40 Mg Tablet PO 40 mg Q12HR NICOLE Administration Polyethylene Glycol 17 gm 08/14/24 13:40 Polyethylene Glycol 3350 17 Gm Powd.Pack PO QAM PRN Constipation Venlafaxine HCl 75 mg 08/07/24 09:00 08/18/24 21:08 Venlafaxine Hcl 75 Mg Tablet BY MOUTH 75 mg Q12HR NICOLE Administration Venlafaxine HCl 50 mg 08/07/24 09:00 08/18/24 21:08 Venlafaxine Hcl 25 Mg Tablet BY MOUTH 50 mg Q12HR NICOLE Administration Vitamin B Complex 1 cap 08/07/24 09:00 08/18/24 09:21 Vitamin B Complex Capsule PO 1 cap DAILY NICOLE Administration Radiology Results: ITS Impressions Chest CT 08/06/24 15:17 IMPRESSION: Moderate interstitial pulmonary edema. Trace bilateral pleural effusions. Renal Ultrasound 08/09/24 13:35 IMPRESSION: 1. Normal kidneys. No hydronephrosis. Chest X-Ray 08/11/24 13:18 IMPRESSION: 1. Airspace opacities in the lower lung zones with worsening on the left, consistent with atelectasis versus pneumonia. 2. Worsened small pleural effusions. Head CT 08/13/24 20:44 IMPRESSION: 1. Normal aging brain. Labs Labs: Laboratory Results - last 24 hr 08/18/24 08/18/2408/18/24 11:49 16:44 20:20 POC Capillary Glucose 238 H 335 H 224 H 08/19/24 07:38 POC Capillary Glucose 217 H Quality VTE Prophylaxis VTE prophylaxis: pharmacologic ordered (on apixaban)
[2024-08-19 09:40] LABS: Basophils Absolute Auto 0.1 K/mm3 (0.0-0.1); Basophils Percent Auto 0.9 % (0.2-1.2); Eosinophils Absolute Auto 0.4 K/mm3 (0-0.3); Eosinophils Percent Auto 4.4 % (0-4.4); Hematocrit 33.5 % (37.0-47.0); Immature Granulocyte Absolute 0.04 K/mm3 (0.00-0.031); Immature Granulocyte Percent A 0.4 % (0-0.5); Lymphocytes Absolute Auto 1.68 K/mm3 (0.9-3.2); Lymphocytes Percent Auto 18.5 % (18.3-44.2); Mean Corpuscular HGB Conc 29.9 g/dl (32-36); Mean Corpuscular Hemoglobin 26.9 pg (26-34); Mean Corpuscular Volume 90.1 fl (80-100); Mean Platelet Volume 9.4 fl (7.4-10.4); Monocytes Absolute Auto 0.6 K/mm3 (0.1-0.6); Neutrophils Absolute Auto 6.4 K/mm3 (1.3-6.7); Neutrophils Percent Auto 69.8 % (45.5-73.1); Platelet Count Result 305 k/mm3 (150-375); Red Blood Count 3.72 M/mm3 (4.2-5.4); Red Cell Distribution Width 17.6 % (11.5-14.5); White Blood Count 9.1 K/mm3 (4.5-10.0)
[2024-08-19] MEDS: INSULIN ASPART (*BKC) 100 UNITS/ML SUB-Q ×4 (09:44→23:53)
[2024-08-19] MEDS: buPROPion HCL XL (24 HR) 150 MG TABCR PO (09:48)
[2024-08-19] MEDS: busPIRone HCL 5 MG TABLET 15 MG PO (09:48)
[2024-08-19] MEDS: VENLAFAXINE HCL 75 MG TABLET BY MOUTH ×2 (09:48→20:56)
[2024-08-19] MEDS: MEMANTINE 10 MG TABLET PO ×2 (09:48→20:56)
[2024-08-19] MEDS: VITAMIN B COMPLEX CAPSULE 1 CAP PO (09:48)
[2024-08-19] MEDS: CALCIUM/VITAMIN D 500 MG/5 MCG (200 I.U.) TABLET PO (09:48)
[2024-08-19] MEDS: VENLAFAXINE HCL 25 MG TABLET 50 MG BY MOUTH ×2 (09:48→20:56)
[2024-08-19] MEDS: allopurinoL 100 MG TABLET PO (09:48)
[2024-08-19] MEDS: DOXYCYCLINE HYCLATE 100 MG TABLET PO ×2 (09:48→20:57)
[2024-08-19] MEDS: BUMETANIDE 1 MG TABLET PO (09:48)
[2024-08-19] MEDS: OPTI-GEN TAB 1 TABLET PO ×2 (09:48→20:56)
--- NOTE | 2024-08-19 09:48 | PM.PNCARD ---
Progress Note: A&P Assessment and Plan (1) Paroxysmal atrial fibrillation: Code(s): I48.0 - Paroxysmal atrial fibrillation Status: Chronic Assessment and Plan: She has been persistently tachycardic in atrial fibrillation for several days now. Metoprolol increased to 25mg q6h yesterday with no improvement. I think at this point since she is not maintaining sinus rhythm, amiodarone can be discontinued and we should attempt to rate control her. Will add p.o. diltiazem and observe her response. If she remains tachycardic can consider shifting her to the IMU and initiating IV amiodarone. (2) Acute on chronic heart failure with preserved ejection fraction (HFpEF, >= 50%): Code(s): I50.33 - Acute on chronic diastolic (congestive) heart failure Status: Acute Assessment and Plan: Improved with aggressive diuresis. Now on bumex 1mg p.o. b.i.d. (3) Acute kidney injury superimposed on chronic kidney disease: Code(s): N17.9 - Acute kidney failure, unspecified; N18.9 - Chronic kidney disease, unspecified Status: Acute Assessment and Plan: Nephrology consulted and following along. (4) Acute respiratory failure with hypoxia: Code(s): J96.01 - Acute respiratory failure with hypoxia Status: Acute Assessment and Plan: Wean off oxygen as tolerated. (5) Coronary artery disease: Code(s): I25.10 - Atherosclerotic heart disease of [place] coronary artery without angina pectoris Status: Acute Assessment and Plan: Stable. On Repatha at home. (6) Mixed hyperlipidemia: Code(s): E78.2 - Mixed hyperlipidemia Status: Acute Assessment and Plan: On Repatha at home. (7) Benign hypertension with chronic kidney disease: Code(s): I12.9 - Hypertensive chronic kidney disease with stage 1 through stage 4 chronic kidney disease, or unspecified chronic kidney disease Status: Acute Assessment and Plan: Stable, continue with Isordil, Bumex, Coreg. (8) Diabetes mellitus with chronic kidney disease: Qualifiers: Diabetes mellitus type: type 2 Diabetes mellitus usp insulin use: without assistant terminal manager use Chronic kidney disease stage: stage 3 (moderate) Chronic kidney disease stage 3 subtype: stage 3b (GFR 30-44) Qualified Code(s): E11.22 - Type 2 diabetes mellitus with diabetic chronic kidney disease; N18.32 - Chronic kidney disease, stage 3b Code(s): E11.22 - Type 2 diabetes mellitus with diabetic chronic kidney disease Status: Acute Assessment and Plan: Management as per Hospitalist. Subjective Date/time seen: 08/19/24 09:48 Interval history: no acute events Tele: Paroxysmal a fib Date of service 08/19/2024: Asked to sign back on to this case by the hospitalist. She has been in persistent atrial fibrillation with RVR for several days. She is asymptomatic in this regard. Continues to be in RVR despite increasing metoprolol yesterday. Review of Systems Review of Systems: All systems reviewed & are unremarkable except as noted in HPI and below Cardiovascular: Cardiovascular: Reports as per HPI Respiratory: Respiratory: Reports as per HPI Exam Const: General: comfortable and no acute distress HENMT: Mouth: Yes moist mucous membranes Eyes: General: appearance normal, both eyes and all related structures Sclera: sclerae normal EOM: EOMs intact bilaterally Neck: Neck: no JVD Resp: Effort & Inspection: normal respiratory effort Auscultation: diminished lung sounds Other: Decreased breath sounds. On supplemental oxygen. Cardio: Rate: tachycardic Rhythm: abnormal rhythm irregularly irregular Skin: General skin exam: normal color Neuro: Speech: normal speech Extrem: General: pedal edema Psych: Mental Status: mental status grossly normal Affect: normal affect Objective Data Vital Signs Vital Signs: Vital Signs - 24 hr 08/18/24 12:00 08/18/24 13:07 08/18/24 14:00 Temperature 36.4 C L Pulse Rate 129 H 124 H 86 Respiratory Rate 16 Blood Pressure 137/77 Pulse Oximetry 95 08/18/24 16:00 08/18/24 20:00 08/18/24 20:00 Temperature 36.6 C Pulse Rate 115 H 62 112 H Respiratory Rate 18 Blood Pressure 131/79 Pulse Oximetry 99 08/18/24 20:31 08/18/24 21:07 08/19/24 00:00 Temperature 36.6 C Pulse Rate 54 L 133 H 123 H Respiratory Rate 16 Blood Pressure 136/85 Pulse Oximetry 99 08/19/24 00:24 08/19/24 04:00 08/19/24 05:57 Temperature 36.3 C L Pulse Rate 121 H 127 H 118 H Respiratory Rate 16 Blood Pressure 117/86 Pulse Oximetry 96 08/19/24 06:22 Temperature Pulse Rate 115 H Respiratory Rate Blood Pressure Pulse Oximetry Intake/Output Intake/Output: Intake & Output 08/16/24 08/17/24 08/18/24 08/19/24 23:59 23:59 23:59 23:59 Intake Total 1590 150 580 440 Output Total 1900 1150 660 700 Balance -310 -1000 -80 -260 Meds/Results Medications: Active Medications Generic Name Dose Route Start Last Admin Trade Name Freq PRN Reason Stop Dose Admin Acetaminophen 650 mg 08/06/24 22:10 08/14/24 19:22 Acetaminophen 325 Mg Tablet PO 650 mg Q6H PRN Administration Mild Pain (1-3) or Fever Allopurinol 100 mg 08/07/24 09:00 08/18/24 09:21 Allopurinol 100 Mg Tablet PO 100 mg DAILY NICOLE Administration Amiodarone HCl 200 mg 08/06/24 21:15 08/18/24 21:07 Amiodarone Hcl 200 Mg Tablet PO 200 mg HS NICOLE Administration Apixaban 5 mg 08/06/24 21:20 08/12/24 09:51 Apixaban 5 Mg Tablet PO 5 mg Q12HR NICOLE Administration Bumetanide 1 mg 08/15/24 09:00 08/18/24 09:21 Bumetanide 1 Mg Tablet PO 1 mg DAILY NICOLE Administration Bupropion HCl 150 mg 08/07/24 09:00 08/18/24 09:20 Bupropion Hcl Xl (24 Hr) 150 Mg Tabcr PO 150 mg DAILY NICOLE Administration Buspirone HCl 15 mg 08/07/24 09:00 08/18/24 09:20 Buspirone Hcl 5 Mg Tablet PO 15 mg DAILY NICOLE Administration Calcium Carbonate 500 mg 08/07/24 09:00 08/18/24 09:20 Calcium/Vitamin D 500 Mg/5 Mcg (200 I.U.) Tablet PO 500 mg QAM NICOLE Administration Dextrose 12.5 gm 08/06/24 22:10 Dextrose 50% 25 Gm/50 Ml Syringe IV PUSH PRN PRN Hypoglycemia Protocol Divalproex Sodium 500 mg 08/06/24 21:50 08/18/24 21:06 Divalproex Sodium Er 500 Mg Tab.24h PO 500 mg HS NICOLE Administration Docusate Sodium 100 mg 08/14/24 13:40 Docusate Sodium 100 Mg Capsule PO Q12H PRN Constipation Doxycycline Hyclate 100 mg 08/15/24 12:15 08/18/24 21:08 Doxycycline Hyclate 100 Mg Tablet PO 08/19/24 21:01 100 mg Q12HR NICOLE Administration Epoetin Ajit-epbx 10,000 units 08/13/24 09:00 08/18/24 09:18 Epoetin Ajit-Epbx 10,000 Units/Ml Vial SUB-Q 10,000 units TUTHSA@09 [facility] Administration Famotidine 20 mg 08/06/24 21:20 08/18/24 21:05 Famotidine 20 Mg Tablet PO 20 mg HS [facility] Administration Ferrous Sulfate 142 mg 08/08/24 08:00 08/18/24 09:21 Ferrous Sulfate Dried 142 Mg Tabcr PO 142 mg DAILY@0800 [facility] Administration Glucagon 1 mg 08/06/24 22:10 Glucagon For Inj 1 Mg Vial IM PRN PRN Hypoglycemia Protocol Glucose 15 gm 08/06/24 22:10 Glucose Oral Gel 15 Gm Of Glucse In 37.5 Gm Tube PO PRN PRN Hypoglycemia Protocol Dextrose 1,000 mls @ 100 mls/hr 08/06/24 22:10 Dextrose 5% 1,000 Ml IVPB PRN PRN Hypoglycemia Protocol Insulin Aspart 3 - 6 units 08/07/24 08:00 08/19/24 09:44 Insulin Aspart (*Bkc) 100 Units/Ml SUB-Q 3 units TIDWM [facility] Administration Protocol Insulin Aspart 1 - 3 units 08/07/24 21:00 08/18/24 21:08 Insulin Aspart (*Bkc) 100 Units/Ml SUB-Q 1 units HS [facility] Administration Protocol Insulin Glargine 15 units 08/18/24 08:46 Insulin Glargine (*Bkc) 100 Units/Ml SUB-Q DAILY [facility] Isosorbide Dinitrate 5 mg 08/09/24 21:00 08/18/24 21:07 Isosorbide Dinitrate 5 Mg Tablet PO 5 mg Q12HR [facility] Administration Levothyroxine Sodium 100 mcg 08/08/24 06:30 08/19/24 06:23 Levothyroxine Sodium 100 Mcg Tablet PO 100 mcg DAILY@0630 [facility] Administration Memantine 10 mg 08/06/24 21:15 08/18/24 21:08 Memantine 10 Mg Tablet PO 10 mg Q12HR NICOLE Administration Metoprolol Tartrate 25 mg 08/18/24 12:09 08/19/24 06:22 Metoprolol Tartrate 25 Mg Tablet PO 25 mg Q6HR NICOLE Administration Multivitamins/Minerals 1 tablet 08/07/24 09:00 08/18/24 21:07 Opti-Gen Tab PO 1 tablet Q12HR NICOLE Administration Mupirocin 1 applic 08/07/24 09:00 08/18/24 15:52 Mupirocin 2% Oint 22 Gm Tube TOPICAL 1 applic BID NICOLE Administration Nystatin 1 applic 08/06/24 21:12 Nystatin Ointment 15 Gm Tube TOPICAL BID PRN Rash Pantoprazole Sodium 40 mg 08/07/24 09:00 08/18/24 21:07 Pantoprazole 40 Mg Tablet PO 40 mg Q12HR NICOLE Administration Polyethylene Glycol 17 gm 08/14/24 13:40 Polyethylene Glycol 3350 17 Gm Powd.Pack PO QAM PRN Constipation Venlafaxine HCl 75 mg 08/07/24 09:00 08/18/24 21:08 Venlafaxine Hcl 75 Mg Tablet BY MOUTH 75 mg Q12HR NICOLE Administration Venlafaxine HCl 50 mg 08/07/24 09:00 08/18/24 21:08 Venlafaxine Hcl 25 Mg Tablet BY MOUTH 50 mg Q12HR NICOLE Administration Vitamin B Complex 1 cap 08/07/24 09:00 08/18/24 09:21 Vitamin B Complex Capsule PO 1 cap DAILY NICOLE Administration Radiology Results: ITS Impressions Chest CT 08/06/24 15:17 IMPRESSION: Moderate interstitial pulmonary edema. Trace bilateral pleural effusions. Renal Ultrasound 08/09/24 13:35 IMPRESSION: 1. Normal kidneys. No hydronephrosis. Chest X-Ray 08/11/24 13:18 IMPRESSION: 1. Airspace opacities in the lower lung zones with worsening on the left, consistent with atelectasis versus pneumonia. 2. Worsened small pleural effusions. Head CT 08/13/24 20:44 IMPRESSION: 1. Normal aging brain. Labs Labs: Laboratory Results - last 24 hr 08/18/24 08/18/24 08/18/24 11:49 16:44 20:20 POC Capillary Glucose 238 H 335 H 224 H 08/19/24 07:38 POC Capillary Glucose 217 H Quality VTE Prophylaxis VTE prophylaxis: pharmacologic ordered (on apixaban)
[2024-08-19] MEDS: FERROUS SULFATE DRIED 142 MG TABCR PO (09:49)
[2024-08-19] MEDS: PANTOPRAZOLE 40 MG TABLET PO ×2 (09:49→20:56)
[2024-08-19] MEDS: ISOSORBIDE DINITRATE 5 MG TABLET PO ×2 (09:49→20:57)
[2024-08-19 09:58] LABS: Alanine Aminotransferase 19 U/L (6-35); Albumin Level 3.7 g/dL (3.5-5.1); Alkaline Phosphatase 135 U/L (38-126); Anion Gap 6 mmol/L (4-12); Aspartate Amino Transferase 24 U/L (14-36); Bilirubin,Total 0.5 mg/dL (0.2-1.3); Blood Urea Nitrogen 32 mg/dL (7-17); Calcium 9.5 mg/dL (8.4-10.2); Carbon Dioxide 33 mmol/L (22-30); Chloride 98 mmol/L (98-107); Estimated CRCL calculation 24 ml/min; Estimated Glomerular Filt Rate 22; Glucose 217 mg/dL (65-110); Potassium 3.9 mmol/L (3.4-5.0); Sodium 137 mmol/L (137-145)
[2024-08-19] MEDS: MUPIROCIN 2% OINT 22 GM TUBE 1 APPLIC TOPICAL ×2 (09:58→18:15)
[2024-08-19 10:01] LABS: Platelet Estimate Adequate (Adequate)
[2024-08-19 10:02] LABS: Macrocytosis 1+ (NORMAL); Schistocytes None Seen
--- NOTE | 2024-08-19 10:13 | PM.PNNEP ---
Progress Note: A&P Assessment and Plan (1) ALBERTINA (acute kidney injury): Code(s): N17.9 - Acute kidney failure, unspecified Status: Acute Assessment and Plan: stable if not resolved elevated on admission (but close to what it was on last hospital discharge) worsening noted during this hospitalization after admission however, seems to have stabilized holding diuretics on last hospitalization resulted in only mild improvement in renal function (and may have precipitated re-admission) evaluation noted: renal u/s normal CPK slightly elevated (but not likely to affect kidney function) urine electrolytes prerenal UA negative for infection by culture moderate proteinuria follow trend of repeat labs and UOP (2) Chronic kidney disease, stage IV (severe): Code(s): N18.4 - Chronic kidney disease, stage 4 (severe) Status: Chronic Assessment and Plan: baseline creatinine fluctuates to extremes -- anywhere from 1.6 - 2.4mg/dl (in the last year) this causes her to fluctuate between CKD stage 3b and stage 4 due to her hypertension, diabetes, obstructive sleep apnea, gout, diastolic heart failure + diuretics, and age-related change this may be a situation where we have to accept a higher creatinine to maintain her volume status... (3) Acute on chronic diastolic heart failure: Code(s): I50.33 - Acute on chronic diastolic (congestive) heart failure Status: Acute Assessment and Plan: improvement noted as noted by presentation to the ER: bilateral LE edema + SOB + orthopnea BNP: 1560 admission CXR with nterstitial prominence suggesting pneumonitis or pulmonary interstitial edema. Possible minimal pleural effusions chest CT with moderate interstitial pulmonary edema and trace bilateral pleural effusions was on IV diuretics trial dose of metolazone x 3 days with reasonable response transitioned to oral bumex Cardiology following follow respiratory status (4) Hypertension: Qualifiers: Hypertension type: unspecified Qualified Code(s): I10 - Essential (primary) hypertension Code(s): I10 - Essential (primary) hypertension Status: Chronic Assessment and Plan: reasonable control at this time follow trend of hemodynamics (5) Paroxysmal atrial fibrillation: Code(s): I48.0 - Paroxysmal atrial fibrillation Status: Chronic Assessment and Plan: focusing on rate control strategy on anticoagulation Cardiology following (6) Anemia: Qualifiers: Anemia type: unspecified type Qualified Code(s): D64.9 - Anemia, unspecified Code(s): D64.9 - Anemia, unspecified Status: Acute Assessment and Plan: improved partly related to CKD along with ALBERTINA and acute illness Retacrit 3x/week while hospitalized likely discontinue on discharge PRBC transfusion per protocol follow trend of H/H (7) Type 2 diabetes mellitus: Code(s): E11.9 - Type 2 diabetes mellitus without complications Status: Acute Assessment and Plan: follow accu-cheks glycemic control per hospitalists Not much else to add at this time -- will continue to follow intermittently. Subjective Date/time seen: 08/19/24 10:13 Interval history: Follow-up for acute kidney injury/acute renal failure on chronic kidney disease. Renal function/creatinine remains stable at this time with reasonable urine output with ongoing diuretic therapy; mental status continues to fluctuate wax and wane; noted issues with persistent atrial fibrillation with RVR despite current therapy; medication changes noted by Cardiology; no apparent distress voiced. Exam Narrative: General: elderly but WD/WN female in NAD Heart: normal S1 and S2; no rub Lungs: clear anteriorly; decreased at bases Abdomen: soft, nontender, nondistended, positive bowel sounds Extremities: no cyanosis or clubbing; trace edema Skin: warm and dry Objective Data Vital Signs Vital Signs: Vital Signs Temp Pulse Resp BP Pulse Ox O2 Del Method 08/19/24 09:45 Room Air 08/19/24 06:22 115 H 08/19/24 05:57 97.3 F L 118 H 16 117/86 96 08/19/24 04:00 127 H 08/19/24 00:24 121 H 08/19/24 00:00 123 H 08/18/24 21:07 133 H 08/18/24 20:31 97.9 F 54 L 16 136/85 99 08/18/24 20:00 112 H 08/18/24 20:00 97.9 F 62 18 131/79 99 08/18/24 16:00 115 H 08/18/24 14:00 97.5 F L 86 16 137/77 95 08/18/24 13:07 124 H Intake/Output Intake/Output: Intake & Output 08/16/24 08/17/24 08/18/24 08/19/24 23:59 23:59 23:59 23:59 Intake Total 1590 150 580 640 Output Total 1900 1150 660 925 Balance -310 -1000 -80 -285 Meds/Results Medications: Active Medications Generic Name Dose Route Start Last Admin Trade Name Freq PRN Reason Stop Dose Admin Acetaminophen 650 mg 08/06/24 22:10 08/14/24 19:22 Acetaminophen 325 Mg Tablet PO 650 mg Q6H PRN Administration Mild Pain (1-3) or Fever Allopurinol 100 mg 08/07/24 09:00 08/19/24 09:48 Allopurinol 100 Mg Tablet PO 100 mg DAILY NICOLE Administration Apixaban 5 mg 08/06/24 21:20 08/12/24 09:51 Apixaban 5 Mg Tablet PO 5 mg Q12HR NICOLE Administration Bumetanide 1 mg 08/15/24 09:00 08/19/24 09:48 Bumetanide 1 Mg Tablet PO 1 mg DAILY NICOLE Administration Bupropion HCl 150 mg 08/07/24 09:00 08/19/24 09:48 Bupropion Hcl Xl (24 Hr) 150 Mg Tabcr PO 150 mg DAILY NICOLE Administration Buspirone HCl 15 mg 08/07/24 09:00 08/19/24 09:48 Buspirone Hcl 5 Mg Tablet PO 15 mg DAILY NICOLE Administration Calcium Carbonate 500 mg 08/07/24 09:00 08/19/24 09:48 Calcium/Vitamin D 500 Mg/5 Mcg (200 I.U.) Tablet PO 500 mg QAM NICOLE Administration Dextrose 12.5 gm 08/06/24 22:10 Dextrose 50% 25 Gm/50 Ml Syringe IV PUSH PRN PRN Hypoglycemia Protocol Divalproex Sodium 500 mg 08/06/24 21:50 08/18/24 21:06 Divalproex Sodium Er 500 Mg Tab.24h PO 500 mg HS NICOLE Administration Docusate Sodium 100 mg 08/14/24 13:40 Docusate Sodium 100 Mg Capsule PO Q12H PRN Constipation Doxycycline Hyclate 100 mg 08/15/24 12:15 08/19/24 09:48 Doxycycline Hyclate 100 Mg Tablet PO 08/19/24 21:01 100 mg Q12HR NICOLE Administration Epoetin Ajit-epbx 10,000 units 08/13/24 09:00 08/18/24 09:18 Epoetin Ajit-Epbx 10,000 Units/Ml Vial SUB-Q 10,000 units TUTHSA@09 NICOLE Administration Famotidine 20 mg 08/06/24 21:20 08/18/24 21:05 Famotidine 20 Mg Tablet PO 20 mg HS [facility] Administration Ferrous Sulfate 142 mg 08/08/24 08:00 08/19/24 09:49 Ferrous Sulfate Dried 142 Mg Tabcr PO 142 mg DAILY@0800 NICOLE Administration Glucagon 1 mg 08/06/24 22:10 Glucagon For Inj 1 Mg Vial IM PRN PRN Hypoglycemia Protocol Glucose 15 gm 08/06/24 22:10 Glucose Oral Gel 15 Gm Of Glucse In 37.5 Gm Tube PO PRN PRN Hypoglycemia Protocol Dextrose 1,000 mls @ 100 mls/hr 08/06/24 22:10 Dextrose 5% 1,000 Ml IVPB PRN PRN Hypoglycemia Protocol Insulin Aspart 3 - 6 units 08/07/24 08:00 08/19/24 12:16 Insulin Aspart (*Bkc) 100 Units/Ml SUB-Q 3 units TIDWM [facility] Administration Protocol Insulin Aspart 1 - 3 units 08/07/24 21:00 08/18/24 21:08 Insulin Aspart (*Bkc) 100 Units/Ml SUB-Q 1 units HS [facility] Administration Protocol Insulin Glargine 15 units 08/18/24 08:46 Insulin Glargine (*Bkc) 100 Units/Ml SUB-Q DAILY [facility] Isosorbide Dinitrate 5 mg 08/09/24 21:00 08/19/24 09:49 Isosorbide Dinitrate 5 Mg Tablet PO 5 mg Q12HR NICOLE Administration Levothyroxine Sodium 100 mcg 08/08/24 06:30 08/19/24 06:23 Levothyroxine Sodium 100 Mcg Tablet PO 100 mcg DAILY@0630 [facility] Administration Memantine 10 mg 08/06/24 21:15 08/19/24 09:48 Memantine 10 Mg Tablet PO 10 mg Q12HR NICOLE Administration Metoprolol Tartrate 25 mg 08/18/24 12:09 08/19/24 12:24 Metoprolol Tartrate 25 Mg Tablet PO 25 mg Q6HR [facility] Administration Multivitamins/Minerals 1 tablet 08/07/24 09:00 08/19/24 09:48 Opti-Gen Tab PO 1 tablet Q12HR NICOLE Administration Mupirocin 1 applic 08/07/24 09:00 08/19/24 09:58 Mupirocin 2% Oint 22 Gm Tube TOPICAL 1 applic BID NICOLE Administration Nystatin 1 applic 08/06/24 21:12 Nystatin Ointment 15 Gm Tube TOPICAL BID PRN Rash Pantoprazole Sodium 40 mg 08/07/24 09:00 08/19/24 09:49 Pantoprazole 40 Mg Tablet PO 40 mg Q12HR NICOLE Administration Polyethylene Glycol 17 gm 08/14/24 13:40 Polyethylene Glycol 3350 17 Gm Powd.Pack PO QAM PRN Constipation Venlafaxine HCl 75 mg 08/07/24 09:00 08/19/24 09:48 Venlafaxine Hcl 75 Mg Tablet BY MOUTH 75 mg Q12HR NICOLE Administration Venlafaxine HCl 50 mg 08/07/24 09:00 08/19/24 09:48 Venlafaxine Hcl 25 Mg Tablet BY MOUTH 50 mg Q12HR NICOLE Administration Vitamin B Complex 1 cap 08/07/24 09:00 08/19/24 09:48 Vitamin B Complex Capsule PO 1 cap DAILY NICOLE Administration Radiology Results: ITS Impressions Chest CT 08/06/24 15:17 IMPRESSION: Moderate interstitial pulmonary edema. Trace bilateral pleural effusions. Renal Ultrasound 08/09/24 13:35 IMPRESSION: 1. Normal kidneys. No hydronephrosis. Chest X-Ray 08/11/24 13:18 IMPRESSION: 1. Airspace opacities in the lower lung zones with worsening on the left, consistent with atelectasis versus pneumonia. 2. Worsened small pleural effusions. Head CT 08/13/24 20:44 IMPRESSION: 1. Normal aging brain. Labs Labs: Laboratory Tests 08/19/24 09:33 08/19/24 09:33 Calcium 9.5 Total Bilirubin 0.5 AST 24 ALT 19 Alkaline Phosphatase 135 H Total Protein 7.0 Albumin 3.7
[2024-08-19 11:39] LABS: Glucose Point of Care 230 mg/dl (65-105)
[2024-08-19] MEDS: dilTIAZem HCL 30 MG TABLET PO ×3 (13:36→23:53)
[2024-08-19 16:34] LABS: Glucose Point of Care 270 mg/dl (65-105)
[2024-08-19] MEDS: FAMOTIDINE 20 MG TABLET PO (20:56)
[2024-08-19] MEDS: APIXABAN 5 MG TABLET PO (20:57)
[2024-08-19] MEDS: DIVALPROEX SODIUM ER 500 MG TAB.24H PO (20:57)
[2024-08-19 21:46] LABS: Glucose Point of Care 285 mg/dl (65-105)
[2024-08-20] VITALS (14 sets, daily range): BP systolic 114–133; BP diastolic 65–75; PULSE 57–130; RESP 18–20; TEMP 36.1–36.2; O2SAT 94–98
[2024-08-20 00:03] LABS: Glucose Point of Care 242 mg/dl (65-105)
[2024-08-20] MEDS: LEVOTHYROXINE SODIUM 100 MCG TABLET PO (06:15)
[2024-08-20] MEDS: METOPROLOL TARTRATE 25 MG TABLET PO ×3 (06:15→17:23)
[2024-08-20] MEDS: dilTIAZem HCL 30 MG TABLET PO ×3 (06:15→17:23)
[2024-08-20 06:30] LABS: Basophils Absolute Auto 0.1 K/mm3 (0.0-0.1); Basophils Percent Auto 0.7 % (0.2-1.2); Eosinophils Absolute Auto 0.4 K/mm3 (0-0.3); Eosinophils Percent Auto 3.4 % (0-4.4); Hematocrit 34.5 % (37.0-47.0); Hemoglobin 10.1 g/dL (12.0-15.0); Immature Granulocyte Absolute 0.04 K/mm3 (0.00-0.031); Immature Granulocyte Percent A 0.4 % (0-0.5); Lymphocytes Absolute Auto 1.93 K/mm3 (0.9-3.2); Mean Corpuscular HGB Conc 29.3 g/dl (32-36); Mean Corpuscular Hemoglobin 26.2 pg (26-34); Mean Corpuscular Volume 89.4 fl (80-100); Mean Platelet Volume 9.5 fl (7.4-10.4); Monocytes Absolute Auto 0.9 K/mm3 (0.1-0.6); Monocytes Percent Auto 7.9 % (2.6-8.5); Neutrophils Absolute Auto 7.5 K/mm3 (1.3-6.7); Neutrophils Percent Auto 69.6 % (45.5-73.1); Platelet Count Result 294 k/mm3 (150-375); Red Blood Count 3.86 M/mm3 (4.2-5.4); Red Cell Distribution Width 17.8 % (11.5-14.5); White Blood Count 10.7 K/mm3 (4.5-10.0)
[2024-08-20 06:44] LABS: Alanine Aminotransferase 19 U/L (6-35); Albumin Level 3.7 g/dL (3.5-5.1); Alkaline Phosphatase 140 U/L (38-126); Anion Gap 7 mmol/L (4-12); Aspartate Amino Transferase 22 U/L (14-36); Bilirubin,Total 0.5 mg/dL (0.2-1.3); Blood Urea Nitrogen 33 mg/dL (7-17); Calcium 9.5 mg/dL (8.4-10.2); Carbon Dioxide 34 mmol/L (22-30); Chloride 97 mmol/L (98-107); Estimated CRCL calculation 24 ml/min; Estimated Glomerular Filt Rate 22; Glucose 251 mg/dL (65-110); Potassium 3.8 mmol/L (3.4-5.0); Sodium 138 mmol/L (137-145)
[2024-08-20 07:13] LABS: Anisocytosis 1+; Platelet Estimate Adequate (Adequate); Schistocytes None Seen
[2024-08-20 08:01] LABS: Glucose Point of Care 267 mg/dl (65-105)
--- NOTE | 2024-08-20 08:21 | PM.IMPN ---
Progress Note: A&P Assessment and Plan (1) Altered mental status: Qualifiers: Altered mental status type: unspecified Qualified Code(s): R41.82 - Altered mental status, unspecified Code(s): R41.82 - Altered mental status, unspecified Status: Resolved Assessment and Plan: Patient may have underlying dementia with superimposed metabolic encephalopathy as the cause for her problem ua was collected,chest xray done to rule out any infectious causes - son states that pt has problems with normal activities like eating-and has episodes of confusion, ?blanking out she is pretty much at her base level with some episodes of forgetfulness. - head ct unremarkable -appreciate neurology recom. Phil stopped EEG shows diffuse background slowing consistent with a generalized encephalopathy. Continue the antidepressants as before. Namenda which can be continued. Patient remains AOx1 (self). She did have a slight rise in WBC this am on labs, however she remains afebrile with clear lungs sounds. Will obtain a UA to reassess. AMS likely dementia with delirium as patient has been here for 2 weeks. (2) Acute respiratory failure with hypoxia: Code(s): J96.01 - Acute respiratory failure with hypoxia Status: Acute Assessment and Plan: Per chart review, according to EMS her SpO2 was 84% on room air and she was placed on a non-rebreather at 15 L with some improvement. Baseline RA. Likely secondary to CHF exacerbation. - Back to baseline RA - Wean as tolerated for SpO2 > 90 08/11- will order chest xray since oxygen requirements increased Chest XR: atelectasis vs pneumonia- will treat as pneumonia in setting increased oxygen demands and confusion. Remains on room air (3) Paroxysmal atrial fibrillation: Code(s): I48.0 - Paroxysmal atrial fibrillation Status: Chronic Assessment and Plan: - Current home medication: Amiodarone 200 mg daily , Coreg 6.25 mg BID, Eliquis 5 mg BID EKG 08/16: Afib RVR HR 121 Patient was noted to be in afib RVR with HR 121 as seen on EKG. Overnight MD ordered amiodarone 200 mg x1 at that time. Patient remains in afib RVR with HR 110-130s. Asymptomatic. Attempted to call Dr. Griffith and left a voicemail. Patient coreg increased to 12.5 mg BID on 08/17. 08/18: Patient hypotension and remains in afib RVR HR 120-130s, changed coreg to metoprolol given less of an impact on BP. Discussed with cardiology BATCH BLENDER and will start on metoprolol 25 mg q6H. Monitor. 08/19: HR remains in the 110-120s occasionally 130s. Patient asymptomatic. Cardiology evaluated patient Continue metoprolol 25 mg q6H Discontinue amiodarone and started on diltiazem 30 mg q6H Monitor 08/20: HR remains in the 110-120s occasionally 130s on the current oral medications. Call made to Dr. Griffith and patient given IV digoxin x1. Returned to review tele and she is now occasionally dropping to the 90s but primarily remains in the 100-110s. Per Dr. Griffith he plans to do a cardioversion tomorrow, plan to call the son for consent. (4) Pneumonia: Qualifiers: Laterality: bilateral Lung location: unspecified part of lung Pneumonia type: due to unspecified organism Qualified Code(s): J18.9 - Pneumonia, unspecified organism Code(s): J18.9 - Pneumonia, unspecified organism Status: Resolved Assessment and Plan: CXR 08/11: 1. Airspace opacities in the lower lung zones with worsening on the left, consistent with atelectasis versus pneumonia. 2. Worsened small pleural effusions. - started on doxy and augmentin course to be completed on 08/19 - Viral PCR: negative for Flu/COVID/RSV - weaned back to baseline room air - Monitor vital signs, I&Os, neuro status and patient is a fall risk - Follow WBC, serum electrolytes, temperature curves and cultures (5) Urinary tract infection: Code(s): N39.0 - Urinary tract infection, site not specified Status: Acute Assessment and Plan: ua was collected 08/11 due to increased confusion. start cefepime to cover uti/pneumonia urine culture: klebsiella pneumoniae pansensitive switched to PO antibiotics Augmentin- last dose 08/18 9 pm (6) Acute kidney injury superimposed on chronic kidney disease: Code(s): N17.9 - Acute kidney failure, unspecified; N18.9 - Chronic kidney disease, unspecified Status: Acute Assessment and Plan: Per nephrology note on 07/29, baseline creatinine fluctuates to extremes -- anywhere from 1.6 - 2.4mg/dl (in the last year) - BUN/Cr 33/2.2 on am labs - Worsening Cr likely related to patients ongoing diuresis for CHF exacerbation (Bumex made daily instead of BID) vs overcontrol of her BP per nephrology note consider having BP range closer to 150s systolic - Monitor renal function and I/O - Avoid nephrotoxic medications - Renally dose medications - Nephrology consulted, appreciate recommendations (7) Type 2 diabetes mellitus with hyperglycemia, with long-term current use of insulin: Code(s): E11.65 - Type 2 diabetes mellitus with hyperglycemia; Z79.4 - terminal operator (current) use of insulin Status: Chronic Assessment and Plan: home insulin toujeo- 45 units at hs, ss14 units of lispro Continue basal insulin. Initiate sliding scale insulin, Accu-Cheks, and hypoglycemic protocol. will decrease lantus this am- 20 units (from 40) as few lower readings in am, protein snacks at hs-monitor 08/14- bs low this am- will hold lantus until PO intake improves 08/15 hold insulin 08/20 hyperglycemic - will increase Lantus dose to 15 units. Monitor as intake improved. (8) Anemia: Qualifiers: Anemia type: unspecified type Qualified Code(s): D64.9 - Anemia, unspecified Code(s): D64.9 - Anemia, unspecified Status: Acute Assessment and Plan: Iron low -started on iron supplementation - f/u with pcp in 2-3 month for recheck (9) Hypothyroidism (acquired): Code(s): E03.9 - Hypothyroidism, unspecified Status: Acute Assessment [place]: [place] [id number] currently on 75 mcg levothyroxine Will increase to 100 mcg on 08/07 and will need TSH recheck in 6-8 weeks as an outtpt- mid to end of October (10) Coronary artery disease: Code(s): I25.10 - Atherosclerotic heart disease of [place] coronary artery without angina pectoris Status: Acute Assessment and Plan: Chronic, continue home medications. (11) Obstructive sleep apnea on CPAP: Code(s): G47.33 - Obstructive sleep apnea (adult) (pediatric); Z99.89 - Dependence on other enabling machines and devices Status: Chronic Assessment and Plan: Does not use CPAP at home. ABG ordered. Time Spent With Patient Time with patient: 25 - 35 minutes Subjective Date/time seen: 08/20/24 08:21 Interval history: 78-year-old female with coronary artery disease and history of stents, paroxysmal atrial fibrillation on anticoagulation, diastolic congestive heart failure, pulmonary hypertension, obstructive sleep apnea on CPAP, hypertension, hyperlipidemia, chronic kidney disease, anemia, type 2 diabetes mellitus, memory impairment, C difficile diarrhea, depression, suicide attempt in April 2024, and other comorbidities who presented to the emergency department via EMS from home for evaluation of chest pain and shortness of breath. Patient is pleasant lying in bed. She remains alert and oriented x1 (self) likely dementia and hospital acquired delirium as she has been treated for the infections that she came in with and has been in the hospital for 2 weeks. Patient continues to be in afib RVR 110-120s, occasionally going into the 130s. Patiet denies chest pain, shortness of breath and palpitations. Called DR. Griffith and she was given IV dig this morning. Returned to review patients telemetry at 1330 and she remains in afib but HR ranging from 90s-110s. Per Dr. Griffith patient is to undergo a cardioversion tomorrow for poorly controlled afib on oral medications. He state that he plans to discuss this with patients son today. Review of Systems Review of Systems: 12 systems were reviewed and are negative except for as per HPI. Exam Narrative: AF HR 112 RR 18 SpO2 97 BP 128/75 General: female in no acute respiratory distress who is nontoxic appearing, sitting up in bed HEENT: Normocephalic. Atraumatic. Pupils are equal round and reactive to light. Extraocular movement intact. Sclera clear and anicteric. No facial asymmetry. Chest: Lungs are clear to auscultation bilaterally. No wheezes or crackles. CV: Heart was irregularly irregular rhythm and tachycardic. S1-S2. No murmurs, gallops, or rubs. Abd: Abdomen was soft. Nontender. Nondistended. Positive bowel sounds. No organomegaly or masses. Ext: No clubbing, cyanosis, or edema. 2+ DP pulses bilaterally. Neuro: Patient is alert to person. Follows commands. Speech is clear. Strength is symmetrical in pushes and pulls. Objective Data Vital Signs Vital Signs: Vital Signs - 24 hr 08/19/24 09:45 08/19/24 12:00 12/13/24 12:24 Temperature Pulse Rate 119 H 111 H Respiratory Rate Blood Pressure Pulse Oximetry Oxygen Delivery Room Air 08/19/24 14:00 08/19/24 16:00 08/19/24 18:13 Temperature 98.5 F Pulse Rate 110 H 129 H 117 H Respiratory Rate 20 Blood Pressure 130/75 Pulse Oximetry 95 Oxygen Delivery 08/19/24 20:00 08/19/24 20:00 08/19/24 22:53 Temperature 98.0 F Pulse Rate 113 H 110 H Respiratory Rate 18 Blood Pressure 122/94 H Pulse Oximetry 97 Oxygen Delivery Room Air 08/19/24 23:53 08/20/24 00:00 08/20/24 04:00 Temperature Pulse Rate 123 H 130 H 127 H Respiratory Rate Blood Pressure Pulse Oximetry Oxygen Delivery 08/20/24 06:00 08/20/24 06:15 Temperature 97.2 F L Pulse Rate 112 H 112 H Respiratory Rate 18 Blood Pressure 128/75 Pulse Oximetry 97 Oxygen Delivery Intake/Output Intake/Output: Intake & Output 08/17/24 08/18/24 08/19/24 08/20/24 23:59 23:59 23:59 23:59 Intake Total 150 580 640 Output Total 8045 197 5777 1000 Balance -1000 -80 -685 -1000 Meds/Results Medications: Active Medications Generic Name Dose Route Start Last Admin Trade Name Freq PRN Reason Stop Dose Admin Acetaminophen 650 mg 08/06/24 22:10 08/14/24 19:22 Acetaminophen 325 Mg Tablet PO 650 mg Q6H PRN Administration Mild Pain (1-3) or Fever Allopurinol 100 mg 08/07/24 09:00 08/19/24 09:48 Allopurinol 100 Mg Tablet PO 100 mg DAILY NICOLE Administration Apixaban 5 mg 08/06/24 21:20 08/19/24 20:57 Apixaban 5 Mg Tablet PO 5 mg Q12HR NICOLE Administration Bumetanide 1 mg 08/15/24 09:00 08/19/24 09:48 Bumetanide 1 Mg Tablet PO 1 mg DAILY NICOLE Administration Bupropion HCl 150 mg 08/07/24 09:00 08/19/24 09:48 Bupropion Hcl Xl (24 Hr) 150 Mg Tabcr PO 150 mg DAILY NICOLE Administration Buspirone HCl 15 mg 08/07/24 09:00 08/19/24 09:48 Buspirone Hcl 5 Mg Tablet PO 15 mg DAILY NICLOE Administration Calcium Carbonate 500 mg 08/07/24 09:00 08/19/24 09:48 Calcium/Vitamin D 500 Mg/5 Mcg (200 I.U.) Tablet PO 500 mg QAM NICOLE Administration Dextrose 12.5 gm 08/06/24 22:10 Dextrose 50% 25 Gm/50 Ml Syringe IV PUSH PRN PRN Hypoglycemia Protocol Diltiazem HCl 30 mg 08/19/24 13:30 08/20/24 06:15 Diltiazem Hcl 30 Mg Tablet PO 30 mg Q6HR NICOLE Administration Divalproex Sodium 500 mg 08/06/24 21:50 08/19/24 20:57 Divalproex Sodium Er 500 Mg Tab.24h PO 500 mg HS NICOLE Administration Docusate Sodium 100 mg 08/14/24 13:40 Docusate Sodium 100 Mg Capsule PO Q12H PRN Constipation Epoetin Ajit-epbx 10,000 units 08/13/24 09:00 08/18/24 09:18 Epoetin Ajit-Epbx 10,000 Units/Ml Vial SUB-Q 10,000 units TUTHSA@09 NICOLE Administration Famotidine 20 mg 08/06/24 21:20 08/19/24 20:56 Famotidine 20 Mg Tablet PO 20 mg HS NICOLE Administration Ferrous Sulfate 142 mg 08/08/24 08:00 08/19/24 09:49 Ferrous Sulfate Dried 142 Mg Tabcr PO 142 mg DAILY@0800 NICOLE Administration Glucagon 1 mg 08/06/24 22:10 Glucagon For Inj 1 Mg Vial IM PRN PRN Hypoglycemia Protocol Glucose 15 gm 08/06/24 22:10 Glucose Oral Gel 15 Gm Of Glucse In 37.5 Gm Tube PO PRN PRN Hypoglycemia Protocol Dextrose 1,000 mls @ 100 mls/hr 08/06/24 22:10 Dextrose 5% 1,000 Ml IVPB PRN PRN Hypoglycemia Protocol Insulin Aspart 3 - 6 units 08/07/24 08:00 08/19/24 18:12 Insulin Aspart (*Bkc) 100 Units/Ml SUB-Q 4 units TIDWM NICOLE Administration Protocol Insulin Aspart 1 - 3 units 08/07/24 21:00 08/19/24 23:53 Insulin Aspart (*Bkc) 100 Units/Ml SUB-Q 2 units HS NICOLE Administration Protocol Insulin Glargine 15 units 08/18/24 08:46 Insulin Glargine (*Bkc) 100 Units/Ml SUB-Q DAILY NICOLE Isosorbide Dinitrate 5 mg 08/09/24 21:00 08/19/24 20:57 Isosorbide Dinitrate 5 Mg Tablet PO 5 mg Q12HR NICOLE Administration Levothyroxine Sodium 100 mcg 08/08/24 06:30 08/20/24 06:15 Levothyroxine Sodium 100 Mcg Tablet PO 100 mcg DAILY@0630 NICOLE Administration Memantine 10 mg 08/06/24 21:15 08/19/24 20:56 Memantine 10 Mg Tablet PO 10 mg Q12HR NICOLE Administration Metoprolol Tartrate 25 mg 08/18/24 12:09 08/20/24 06:15 Metoprolol Tartrate 25 Mg Tablet PO 25 mg Q6HR NICOLE Administration Metoprolol Tartrate 5 mg 08/19/24 14:46 Metoprolol Tartrate Inj 5 Mg/5 Ml Vial IV PUSH Q2H PRN Tachycardia Multivitamins/Minerals 1 tablet 08/07/24 09:00 08/19/24 20:56 Opti-Gen Tab PO 1 tablet Q12HR NICOLE Administration Mupirocin 1 applic 08/07/24 09:00 08/19/24 18:15 Mupirocin 2% Oint 22 Gm Tube TOPICAL 1 applic BID NICOLE Administration Nystatin 1 applic 08/06/24 21:12 Nystatin Ointment 15 Gm Tube TOPICAL BID PRN Rash Pantoprazole Sodium 40 mg 08/07/24 09:00 08/19/24 20:56 Pantoprazole 40 Mg Tablet PO 40 mg Q12HR NICOLE Administration Polyethylene Glycol 17 gm 08/14/24 13:40 Polyethylene Glycol 3350 17 Gm Powd.Pack PO QAM PRN Constipation Venlafaxine HCl 75 mg 08/07/24 09:00 08/19/24 20:56 Venlafaxine Hcl 75 Mg Tablet BY MOUTH 75 mg Q12HR NICOLE Administration Venlafaxine HCl 50 mg 08/07/24 09:00 08/19/24 20:56 Venlafaxine Hcl 25 Mg Tablet BY MOUTH 50 mg Q12HR NICOLE Administration Vitamin B Complex 1 cap 08/07/24 09:00 08/19/24 09:48 Vitamin B Complex Capsule PO 1 cap DAILY NICOLE Administration Radiology Results: ITS Impressions Chest CT 11/30/24 15:17 IMPRESSION: Moderate interstitial pulmonary edema. Trace bilateral pleural effusions. Renal Ultrasound 08/09/24 13:35 IMPRESSION: 1. Normal kidneys. No hydronephrosis. Chest X-Ray 08/11/24 13:18 IMPRESSION: 1. Airspace opacities in the lower lung zones with worsening on the left, consistent with atelectasis versus pneumonia. 2. Worsened small pleural effusions. Head CT 08/13/24 20:44 IMPRESSION: 1. Normal aging brain. Labs Labs: Laboratory Results - last 24 hr 08/19/24 08/19/24 08/19/24 09:33 11:31 16:29 WBC 9.1 RBC 3.72 L Hgb 10.0 L Hct 33.5 L MCV 90.1 MCH 26.9 MCHC 29.9 L RDW 17.6 H Plt Count 305 MPV 9.4 Immature Gran % (Auto) 0.4 Neut % (Auto) 69.8 Lymph % (Auto) 18.5 [place] % (Auto) 6.0 Eos % (Auto) 4.4 Baso % (Auto) 0.9 Lymph # (Auto) 1.68 [place] # (Auto) 0.6 Eos # (Auto) 0.4 H Baso # (Auto) 0.1 Abs Immat Gran (auto) 0.04 H Absolute Neuts (auto) 6.4 Absolute Nucleated RBC 0.000 Nucleated RBC % 0.0 Platelet Estimate Adequate Anisocytosis Macrocytosis 1+ Schistocytes None seen Sodium 137 Potassium 3.9 Chloride 98 Carbon Dioxide 33 H Anion Gap 6 BUN 32 H Creatinine 2.20 H Estim Creat Clear Calc 24 Estimated GFR 22 L Glucose 217 H POC Capillary Glucose 230 H 270 H Calcium 9.5 Total Bilirubin 0.5 AST 24 ALT 19 Alkaline Phosphatase 135 H Total Protein 7.0 Albumin 3.7 08/19/24 08/19/24 08/20/24 21:43 23:57 06:02 WBC 10.7 H RBC 3.86 L Hgb 10.1 L Hct 34.5 L MCV 89.4 MCH 26.2 MCHC 29.3 L RDW 17.8 H Plt Count 294 MPV 9.5 Immature Gran % (Auto) 0.4 Neut % (Auto) 69.6 Lymph % (Auto) 18.0 L [place] % (Auto) 7.9 Eos % (Auto) 3.4 Baso % (Auto) 0.7 Lymph # (Auto) 1.93 [place] # (Auto) 0.9 H Eos # (Auto) 0.4 H Baso # (Auto) 0.1 Abs Immat Gran (auto) 0.04 H Absolute Neuts (auto) 7.5 H Absolute Nucleated RBC 0.000 Nucleated RBC % 0.0 Platelet Estimate Adequate Anisocytosis 1+ Macrocytosis Schistocytes None seen Sodium 138 Potassium 3.8 Chloride 97 L Carbon Dioxide 34 H Anion Gap 7 BUN 33 H Creatinine 2.20 H Estim Creat Clear Calc 24 Estimated GFR 22 L Glucose 251 H POC Capillary Glucose 285 H 242 H Calcium 9.5 Total Bilirubin 0.5 AST 22 ALT 19 Alkaline Phosphatase 140 H Total Protein 7.0 Albumin 3.7 08/20/24 07:50 WBC RBC Hgb Hct MCV MCH MCHC RDW Plt Count MPV Immature Gran % (Auto) Neut % (Auto) Lymph % (Auto) [place] % (Auto) Eos % (Auto) Baso % (Auto) Lymph # (Auto) [place] # (Auto) Eos # (Auto) Baso # (Auto) Abs Immat Gran (auto) Absolute Neuts (auto) Absolute Nucleated RBC Nucleated RBC % Platelet Estimate Anisocytosis Macrocytosis Schistocytes Sodium Potassium Chloride Carbon Dioxide Anion Gap BUN Creatinine Estim Creat Clear Calc Estimated GFR Glucose POC Capillary Glucose 267 H Calcium Total Bilirubin AST ALT Alkaline Phosphatase Total Protein Albumin Quality VTE Prophylaxis VTE prophylaxis: pharmacologic ordered (on apixaban)
[2024-08-20] MEDS: BUMETANIDE 1 MG TABLET PO (08:50)
[2024-08-20] MEDS: VENLAFAXINE HCL 75 MG TABLET BY MOUTH ×2 (08:50→21:49)
[2024-08-20] MEDS: VITAMIN B COMPLEX CAPSULE 1 CAP PO (08:51)
[2024-08-20] MEDS: busPIRone HCL 5 MG TABLET 15 MG PO (08:51)
[2024-08-20] MEDS: PANTOPRAZOLE 40 MG TABLET PO ×2 (08:51→21:50)
[2024-08-20] MEDS: VENLAFAXINE HCL 25 MG TABLET 50 MG BY MOUTH ×2 (08:51→21:50)
[2024-08-20] MEDS: OPTI-GEN TAB 1 TABLET PO ×2 (08:52→21:50)
[2024-08-20] MEDS: MEMANTINE 10 MG TABLET PO ×2 (08:52→21:50)
[2024-08-20] MEDS: FERROUS SULFATE DRIED 142 MG TABCR PO (08:52)
[2024-08-20] MEDS: CALCIUM/VITAMIN D 500 MG/5 MCG (200 I.U.) TABLET PO (08:52)
[2024-08-20] MEDS: buPROPion HCL XL (24 HR) 150 MG TABCR PO (08:53)
[2024-08-20] MEDS: allopurinoL 100 MG TABLET PO (08:53)
[2024-08-20] MEDS: APIXABAN 5 MG TABLET PO ×2 (08:53→21:49)
[2024-08-20] MEDS: MUPIROCIN 2% OINT 22 GM TUBE 1 APPLIC TOPICAL ×2 (08:55→17:24)
[2024-08-20] MEDS: INSULIN ASPART (*BKC) 100 UNITS/ML SUB-Q ×4 (08:55→22:20)
[2024-08-20] MEDS: INSULIN GLARGINE (*BKC) 100 UNITS/ML 15 UNITS SUB-Q (09:09)
[2024-08-20] MEDS: SODIUM CHLORIDE 0.9% IV 1,000 ML 75 ML IV CONT (09:30)
[2024-08-20] MEDS: EPOETIN ALFA-EPBX 10,000 UNITS/ML VIAL 10000 UNITS SUB-Q (10:28)
[2024-08-20] MEDS: DIGOXIN INJ 250 MCG/ML 2 ML AMP (*BKC) 500 MCG IV PUSH (11:12)
[2024-08-20] MEDS: ACETAMINOPHEN 325 MG TABLET 650 MG PO (11:14)
[2024-08-20 12:07] LABS: Glucose Point of Care 305 mg/dl (65-105)
--- NOTE | 2024-08-20 14:32 | PM.PNCARD ---
Progress Note: A&P Assessment and Plan (1) Paroxysmal atrial fibrillation: Code(s): I48.0 - Paroxysmal atrial fibrillation Status: Chronic Assessment and Plan: Remains in RVR despite AV philipp agents - Will need a MARKY cardioversion - Discussed with the primary team and her son. - - Will attempt a loading dose only of UV digoxin and monitor response - Discussed in detail with her son regarding a MARKY/CV. she is DNR. However, the son may rescind DNR for a MARKY/CV - NPOMN, possible MARKY CV tomorrow with anesthesia support - On anticoagulation (2) Acute on chronic heart failure with preserved ejection fraction (HFpEF, >= 50%): Code(s): I50.33 - Acute on chronic diastolic (congestive) heart failure Status: Acute Assessment and Plan: on bumex 1 mg PO OD, as per nephrology (3) Acute kidney injury superimposed on chronic kidney disease: Code(s): N17.9 - Acute kidney failure, unspecified; N18.9 - Chronic kidney disease, unspecified Status: Acute (4) Acute respiratory failure with hypoxia: Code(s): J96.01 - Acute respiratory failure with hypoxia Status: Acute Assessment and Plan: Wean off oxygen as tolerated. (5) Coronary artery disease: Code(s): I25.10 - Atherosclerotic heart disease of [place] coronary artery without angina pectoris Status: Acute Assessment and Plan: Stable. On Repatha at home. (6) Mixed hyperlipidemia: Code(s): E78.2 - Mixed hyperlipidemia Status: Acute Assessment and Plan: On Repatha at home. (7) Benign hypertension with chronic kidney disease: Code(s): I12.9 - Hypertensive chronic kidney disease with stage 1 through stage 4 chronic kidney disease, or unspecified chronic kidney disease Status: Acute Assessment and Plan: Stable, continue with Isordil, Bumex, Coreg. (8) Diabetes mellitus with chronic kidney disease: Qualifiers: Diabetes mellitus type: type 2 Diabetes mellitus head of loss prevention insulin use: without retirement use Chronic kidney disease stage: stage 3 (moderate) Chronic kidney disease stage 3 subtype: stage 3b (GFR 30-44) Qualified Code(s): E11.22 - Type 2 diabetes mellitus with diabetic chronic kidney disease; N18.32 - Chronic kidney disease, stage 3b Code(s): E11.22 - Type 2 diabetes mellitus with diabetic chronic kidney disease Status: Acute Assessment and Plan: Management as per Hospitalist. Subjective Date/time seen: 08/20/24 14:32 Interval history: She is confused Remains in RVR on oral AV philipp agents, previously was on Amiodarone as well Review of Systems Review of Systems: All systems reviewed & are unremarkable except as noted in HPI and below Cardiovascular: Cardiovascular: Reports as per HPI Respiratory: Respiratory: Reports as per HPI Exam Const: General: comfortable and no acute distress HENMT: Mouth: Yes moist mucous membranes Eyes: General: appearance normal, both eyes and all related structures Sclera: sclerae normal EOM: EOMs intact bilaterally Neck: Neck: no JVD Resp: Effort & Inspection: normal respiratory effort Auscultation: diminished lung sounds Other: Decreased breath sounds. On supplemental oxygen. Cardio: Rate: regular rate and tachycardic Rhythm: abnormal rhythm irregularly irregular Other: Skin: General skin exam: normal color Neuro: Speech: normal speech Extrem: General: pedal edema Psych: Mental Status: mental status grossly normal Affect: normal affect Objective Data Vital Signs Vital Signs: Vital Signs - 24 hr 08/19/24 16:00 08/19/24 18:13 08/19/24 20:00 Temperature Pulse Rate 129 H 117 H Respiratory Rate Blood Pressure Pulse Oximetry Oxygen Delivery Room Air 08/19/24 20:00 08/19/24 22:53 08/19/24 23:53 Temperature 36.7 C Pulse Rate 113 H 110 H 123 H Respiratory Rate 18 Blood Pressure 122/94 H Pulse Oximetry 97 Oxygen Delivery 08/20/24 00:00 08/20/24 04:00 08/20/24 06:00 Temperature 36.2 C L Pulse Rate 130 H 127 H 112 H Respiratory Rate 18 Blood Pressure 128/75 Pulse Oximetry 97 Oxygen Delivery 08/20/24 06:15 08/20/24 08:50 08/20/24 08:50 Temperature Pulse Rate 112 H 120 H Respiratory Rate Blood Pressure Pulse Oximetry Oxygen Delivery Room Air 08/20/24 11:12 08/20/24 12:59 Temperature Pulse Rate 120 H 118 H Respiratory Rate Blood Pressure Pulse Oximetry Oxygen Delivery Intake/Output Intake/Output: Intake & Output 08/17/24 08/18/24 08/19/24 08/20/24 23:59 23:59 23:59 23:59 Intake Total 150 580 640 0 Output Total 8439 805 8180 1000 Balance -1000 -80 -685 -1000 Meds/Results Medications: Active Medications Generic Name Dose Route Start Last Admin Trade Name Freq PRN Reason Stop Dose Admin Acetaminophen 650 mg 08/06/24 22:10 08/20/24 11:14 Acetaminophen 325 Mg Tablet PO 650 mg Q6H PRN Administration Mild Pain (1-3) or Fever Allopurinol 100 mg 08/07/24 09:00 08/20/24 08:53 Allopurinol 100 Mg Tablet PO 100 mg DAILY NICOLE Administration Apixaban 5 mg 08/06/24 21:20 08/20/24 08:53 Apixaban 5 Mg Tablet PO 5 mg Q12HR NICOLE Administration Bumetanide 1 mg 08/15/24 09:00 08/20/24 08:50 Bumetanide 1 Mg Tablet PO 1 mg DAILY NICOLE Administration Bupropion HCl 150 mg 08/07/24 09:00 08/20/24 08:53 Bupropion Hcl Xl (24 Hr) 150 Mg Tabcr PO 150 mg DAILY NICOLE Administration Buspirone HCl 15 mg 08/07/24 09:00 08/20/24 08:51 Buspirone Hcl 5 Mg Tablet PO 15 mg DAILY NICOLE Administration Calcium Carbonate 500 mg 08/07/24 09:00 08/20/24 08:52 Calcium/Vitamin D 500 Mg/5 Mcg (200 I.U.) Tablet PO 500 mg QAM NICOLE Administration Dextrose 12.5 gm 08/06/24 22:10 Dextrose 50% 25 Gm/50 Ml Syringe IV PUSH PRN PRN Hypoglycemia Protocol Diltiazem HCl 30 mg 08/19/24 13:30 08/20/24 12:58 Diltiazem Hcl 30 Mg Tablet PO 30 mg Q6HR NICOLE Administration Divalproex Sodium 500 mg 08/06/24 21:50 08/19/24 20:57 Divalproex Sodium Er 500 Mg Tab.24h PO 500 mg HS NICOLE Administration Docusate Sodium 100 mg 08/14/24 13:40 Docusate Sodium 100 Mg Capsule PO Q12H PRN Constipation Epoetin Ajit-epbx 10,000 units 08/13/24 09:00 08/20/24 10:28 Epoetin Ajit-Epbx 10,000 Units/Ml Vial SUB-Q 10,000 units TUTHSA@09 NICOLE Administration Famotidine 20 mg 08/06/24 21:20 08/19/24 20:56 Famotidine 20 Mg Tablet PO 20 mg HS NICOLE Administration Ferrous Sulfate 142 mg 08/08/24 08:00 08/20/24 08:52 Ferrous Sulfate Dried 142 Mg Tabcr PO 142 mg DAILY@0800 NICOLE Administration Glucagon 1 mg 08/06/24 22:10 Glucagon For Inj 1 Mg Vial IM PRN PRN Hypoglycemia Protocol Glucose 15 gm 08/06/24 22:10 Glucose Oral Gel 15 Gm Of Glucse In 37.5 Gm Tube PO PRN PRN Hypoglycemia Protocol Dextrose 1,000 mls @ 100 mls/hr 08/06/24 22:10 Dextrose 5% 1,000 Ml IVPB PRN PRN Hypoglycemia Protocol Sodium Chloride 1,000 mls @ 75 mls/hr 08/20/24 09:15 08/20/24 09:30 Normal Saline Iv IV CONT 08/20/24 22:34 75 mls/hr .[id number] ONE Administration Insulin Aspart 3 - 6 units 08/07/24 08:00 08/20/24 12:58 Insulin Aspart (*Bkc) 100 Units/Ml SUB-Q 5 units TIDWM NICOLE Administration Protocol Insulin Aspart 1 - 3 units 08/07/24 21:00 08/19/24 23:53 Insulin Aspart (*Bkc) 100 Units/Ml SUB-Q 2 units HS NICOLE Administration Protocol Insulin Glargine 15 units 08/18/24 08:46 08/20/24 09:09 Insulin Glargine (*Bkc) 100 Units/Ml SUB-Q 15 units DAILY NICOLE Administration Isosorbide Dinitrate 5 mg 08/09/24 21:00 08/20/24 09:09 Isosorbide Dinitrate 5 Mg Tablet PO Not Given Q12HR NICOLE Levothyroxine Sodium 100 mcg 08/08/24 06:30 08/20/24 06:15 Levothyroxine Sodium 100 Mcg Tablet PO 100 mcg DAILY@0630 NICOLE Administration Memantine 10 mg 08/06/24 21:15 08/20/24 08:52 Memantine 10 Mg Tablet PO 10 mg Q12HR NICOLE Administration Metoprolol Tartrate 25 mg 08/18/24 12:09 08/20/24 12:59 Metoprolol Tartrate 25 Mg Tablet PO 25 mg Q6HR NICOLE Administration Metoprolol Tartrate 5 mg 08/19/24 14:46 Metoprolol Tartrate Inj 5 Mg/5 Ml Vial IV PUSH Q2H PRN Tachycardia Multivitamins/Minerals 1 tablet 08/07/24 09:00 08/20/24 08:52 Opti-Gen Tab PO 1 tablet Q12HR NICOLE Administration Mupirocin 1 applic 08/07/24 09:00 08/20/24 08:55 Mupirocin 2% Oint 22 Gm Tube TOPICAL 1 applic BID NICOLE Administration Nystatin 1 applic 08/06/24 21:12 Nystatin Ointment 15 Gm Tube TOPICAL BID PRN Rash Pantoprazole Sodium 40 mg 08/07/24 09:00 08/20/24 08:51 Pantoprazole 40 Mg Tablet PO 40 mg Q12HR NICOLE Administration Polyethylene Glycol 17 gm 08/14/24 13:40 Polyethylene Glycol 3350 17 Gm Powd.Pack PO QAM PRN Constipation Venlafaxine HCl 75 mg 08/07/24 09:00 08/20/24 08:50 Venlafaxine Hcl 75 Mg Tablet BY MOUTH 75 mg Q12HR NICOLE Administration Venlafaxine HCl 50 mg 08/07/24 09:00 08/20/24 08:51 Venlafaxine Hcl 25 Mg Tablet BY MOUTH 50 mg Q12HR NICOLE Administration Vitamin B Complex 1 cap 08/07/24 09:00 08/20/24 08:51 Vitamin B Complex Capsule PO 1 cap DAILY NICOLE Administration Radiology Results: ITS Impressions Chest CT 08/06/24 15:17 IMPRESSION: Moderate interstitial pulmonary edema. Trace bilateral pleural effusions. Renal Ultrasound 08/09/24 13:35 IMPRESSION: 1. Normal kidneys. No hydronephrosis. Chest X-Ray 08/11/24 13:18 IMPRESSION: 1. Airspace opacities in the lower lung zones with worsening on the left, consistent with atelectasis versus pneumonia. 2. Worsened small pleural effusions. Head CT 08/13/24 20:44 IMPRESSION: 1. Normal aging brain. Labs Labs: Laboratory Results - last 24 hr 08/19/24 08/19/24 08/19/24 16:29 21:43 23:57 WBC RBC Hgb Hct MCV MCH MCHC RDW Plt Count MPV Immature Gran % (Auto) Neut % (Auto) Lymph % (Auto) [place] % (Auto) Eos % (Auto) Baso % (Auto) Lymph # (Auto) [place] # (Auto) Eos # (Auto) Baso # (Auto) Abs Immat Gran (auto) Absolute Neuts (auto) Absolute Nucleated RBC Nucleated RBC % Platelet Estimate Anisocytosis Schistocytes Sodium Potassium Chloride Carbon Dioxide Anion Gap BUN Creatinine Estim Creat Clear Calc Estimated GFR Glucose POC Capillary Glucose 270 H 285 H 242 H Calcium Total Bilirubin AST ALT Alkaline Phosphatase Total Protein Albumin 08/20/24 08/20/24 08/20/24 06:02 07:50 11:54 WBC 10.7 H RBC 3.86 L Hgb 10.1 L Hct 34.5 L MCV 89.4 MCH 26.2 MCHC 29.3 L RDW 17.8 H Plt Count 294 MPV 9.5 Immature Gran % (Auto) 0.4 Neut % (Auto) 69.6 Lymph % (Auto) 18.0 L [place] % (Auto) 7.9 Eos % (Auto) 3.4 Baso % (Auto) 0.7 Lymph # (Auto) 1.93 [place] # (Auto) 0.9 H Eos # (Auto) 0.4 H Baso # (Auto) 0.1 Abs Immat Gran (auto) 0.04 H Absolute Neuts (auto) 7.5 H Absolute Nucleated RBC 0.000 Nucleated RBC % 0.0 Platelet Estimate Adequate Anisocytosis 1+ Schistocytes None seen Sodium 138 Potassium 3.8 Chloride 97 L Carbon Dioxide 34 H Anion Gap 7 BUN 33 H Creatinine 2.20 H Estim Creat Clear Calc 24 Estimated GFR 22 L Glucose 251 H POC Capillary Glucose 267 H 305 H Calcium 9.5 Total Bilirubin 0.5 AST 22 ALT 19 Alkaline Phosphatase 140 H Total Protein 7.0 Albumin 3.7
--- NOTE | 2024-08-20 14:35 | PC.NURSE ---
On 08/20/24, the CUSTOMER SUPPORT ANALYST, [Felisha Dunlap ], provided care and completed [facility] documentation on this patient. I have reviewed the CUSTOMER SUPPORT ANALYST's documentation and agree with the findings.
[2024-08-20 16:39] LABS: Glucose Point of Care 228 mg/dl (65-105)
[2024-08-20 19:06] LABS: Add Urine Microscopic? YES; Appearance Urine Cloudy (Clear); Bacteria Urine None Seen /hpf; Bilirubin Urine Negative (Negative); Blood Urine Non-Hemolyzed Trace (Negative); Budding Yeast Urine Present /hpf; Color Urine Yellow (Yellow); Glucose Urine UA Negative (Negative); Hyaline Casts Urine Present /lpf; Ketones Urine Trace mg/dL (Negative); Leukocyte Esterase Ur 2+ LEU/UL (Negative); Need Manual Microscopic Reviewed; Nitrate Urine Negative (Negative); Protein Urine 1+ mg/dL (Negative); RBC Urine 21-50 /hpf (0-2); Squamous Epithelial Cell Urine None Seen /hpf (Few); Urobilinogen Urine 0.2 mg/dL (<2.0); WBC Urine 51-100 /hpf (0-3)
[2024-08-20] MEDS: FAMOTIDINE 20 MG TABLET PO (21:49)
[2024-08-20] MEDS: ISOSORBIDE DINITRATE 5 MG TABLET PO (21:49)
[2024-08-20] MEDS: DIVALPROEX SODIUM ER 500 MG TAB.24H PO (21:50)
[2024-08-20 23:02] LABS: Glucose Point of Care 252 mg/dl (65-105)
[2024-08-21] VITALS (15 sets, daily range): BP systolic 109–144; BP diastolic 62–108; PULSE 80–126; RESP 20; TEMP 36.1–36.2; O2SAT 93–98
[2024-08-21] MEDS: METOPROLOL TARTRATE 25 MG TABLET PO ×4 (00:12→18:36)
[2024-08-21] MEDS: dilTIAZem HCL 30 MG TABLET PO ×4 (00:13→18:30)
[2024-08-21] MEDS: LEVOTHYROXINE SODIUM 100 MCG TABLET PO (05:16)
[2024-08-21 06:14] LABS: Basophils Absolute Auto 0.1 K/mm3 (0.0-0.1); Basophils Percent Auto 0.8 % (0.2-1.2); Eosinophils Absolute Auto 0.4 K/mm3 (0-0.3); Eosinophils Percent Auto 4.3 % (0-4.4); Hematocrit 33.9 % (37.0-47.0); Hemoglobin 10.1 g/dL (12.0-15.0); Immature Granulocyte Absolute 0.03 K/mm3 (0.00-0.031); Immature Granulocyte Percent A 0.3 % (0-0.5); Lymphocytes Absolute Auto 1.76 K/mm3 (0.9-3.2); Lymphocytes Percent Auto 17.8 % (18.3-44.2); Mean Corpuscular HGB Conc 29.8 g/dl (32-36); Mean Corpuscular Hemoglobin 26.9 pg (26-34); Mean Corpuscular Volume 90.4 fl (80-100); Mean Platelet Volume 9.5 fl (7.4-10.4); Monocytes Absolute Auto 0.7 K/mm3 (0.1-0.6); Monocytes Percent Auto 7.5 % (2.6-8.5); Neutrophils Absolute Auto 6.9 K/mm3 (1.3-6.7); Neutrophils Percent Auto 69.3 % (45.5-73.1); Platelet Count Result 274 k/mm3 (150-375); Red Blood Count 3.75 M/mm3 (4.2-5.4); Red Cell Distribution Width 17.9 % (11.5-14.5); White Blood Count 9.9 K/mm3 (4.5-10.0)
[2024-08-21 06:22] LABS: Alanine Aminotransferase 17 U/L (6-35); Albumin Level 3.5 g/dL (3.5-5.1); Alkaline Phosphatase 130 U/L (38-126); Anion Gap 6 mmol/L (4-12); Aspartate Amino Transferase 20 U/L (14-36); Bilirubin,Total 0.5 mg/dL (0.2-1.3); Blood Urea Nitrogen 36 mg/dL (7-17); Calcium 9.3 mg/dL (8.4-10.2); Carbon Dioxide 33 mmol/L (22-30); Chloride 101 mmol/L (98-107); Estimated CRCL calculation 24 ml/min; Estimated Glomerular Filt Rate 22; Glucose 198 mg/dL (65-110); Potassium 3.7 mmol/L (3.4-5.0); Sodium 140 mmol/L (137-145)
[2024-08-21 06:51] LABS: Anisocytosis 1+; Platelet Estimate Adequate (Adequate); Schistocytes None Seen
--- NOTE | 2024-08-21 06:56 | P.PNIM_ITS ---
Progress Note: A&P Assessment and Plan (1) Altered mental status: Qualifiers: Altered mental status type: unspecified Qualified Code(s): R41.82 - Altered mental status, unspecified Code(s): R41.82 - Altered mental status, unspecified Status: Resolved Assessment and Plan: Patient may have underlying dementia with superimposed metabolic encephalopathy as the cause for her problem ua was collected,chest xray done to rule out any infectious causes - son states that pt has problems with normal activities like eating-and has episodes of confusion, ?blanking out she is pretty much at her base level with some episodes of forgetfulness. - head ct unremarkable -appreciate neurology recom. Phil stopped EEG shows diffuse background slowing consistent with a generalized encephalopathy. Continue the antidepressants as before. Namenda which can be continued. Patient is AOx2 (person, place). (2) Acute respiratory failure with hypoxia: Code(s): J96.01 - Acute respiratory failure with hypoxia Status: Acute Assessment and Plan: Per chart review, according to EMS her SpO2 was 84% on room air and she was placed on a non-rebreather at 15 L with some improvement. Baseline RA. Likely secondary to CHF exacerbation. - Back to baseline RA - Wean as tolerated for SpO2 > 90 08/11- will order chest xray since oxygen requirements increased Chest XR: atelectasis vs pneumonia- will treat as pneumonia in setting increased oxygen demands and confusion. Remains on room air (3) Paroxysmal atrial fibrillation: Code(s): I48.0 - Paroxysmal atrial fibrillation Status: Chronic Assessment and Plan: - Current home medication: Amiodarone 200 mg daily , Coreg 6.25 mg BID, Eliquis 5 mg BID EKG 08/16: Afib RVR HR 121 Patient was noted to be in afib RVR with HR 121 as seen on EKG. Overnight MD ordered amiodarone 200 mg x1 at that time. Patient remains in afib RVR with HR 110-130s. Asymptomatic. Attempted to call Dr. Griffith and left a voicemail. Patient coreg increased to 12.5 mg BID on 08/17. 08/18: Patient hypotension and remains in afib RVR HR 120-130s, changed coreg to metoprolol given less of an impact on BP. Discussed with cardiology TELEVISION CAMERAMAN and will start on metoprolol 25 mg q6H. Monitor. 08/19: HR remains in the 110-120s occasionally 130s. Patient asymptomatic. Cardiology evaluated patient Continue metoprolol 25 mg q6H Discontinue amiodarone and started on diltiazem 30 mg q6H Monitor 08/20: HR remains in the 110-120s occasionally 130s on the current oral medications. Call made to Dr. Griffith and patient given IV digoxin x1. Returned to review tele and she was rate controlled in the 90s. 08/21: HR is intermittently rate controlled on current regimen. Cardiology plans for MARKY/CV tomorrow. (4) Pneumonia: Qualifiers: Laterality: bilateral Lung location: unspecified part of lung Pneumonia type: due to unspecified organism Qualified Code(s): J18.9 - Pneumonia, unspecified organism Code(s): J18.9 - Pneumonia, unspecified organism Status: Resolved Assessment and Plan: CXR 08/11: 1. Airspace opacities in the lower lung zones with worsening on the left, consistent with atelectasis versus pneumonia. 2. Worsened small pleural effusions. - started on doxy and augmentin course to be completed on 08/19 - Viral PCR: negative for Flu/COVID/RSV - weaned back to baseline room air - Monitor vital signs, I&Os, neuro status and patient is a fall risk - Follow WBC, serum electrolytes, temperature curves and cultures Resolved. (5) Urinary tract infection: Code(s): N39.0 - Urinary tract infection, site not specified Status: Acute Assessment and Plan: ua was collected 08/11 due to increased confusion. start cefepime to cover uti/pneumonia urine culture: klebsiella pneumoniae pansensitive switched to PO antibiotics Augmentin- last dose 08/18 9 pm Resolved. (6) Acute kidney injury superimposed on chronic kidney disease: Code(s): N17.9 - Acute kidney failure, unspecified; N18.9 - Chronic kidney disease, unspecified Status: Acute Assessment and Plan: Per nephrology note on 07/29, baseline creatinine fluctuates to extremes -- anywhere from 1.6 - 2.4mg/dl (in the last year) - BUN/Cr 36/2.2 on am labs - Worsening Cr likely related to patients ongoing diuresis for CHF exacerbation (Bumex made daily instead of BID) vs overcontrol of her BP per nephrology note consider having BP range closer to 150s systolic - Monitor renal function and I/O - Avoid nephrotoxic medications - Renally dose medications - Nephrology consulted, appreciate recommendations (7) Type 2 diabetes mellitus with hyperglycemia, with long-term current use of insulin: Code(s): E11.65 - Type 2 diabetes mellitus with hyperglycemia; Z79.4 - ocean transportation intermediary (current) use of insulin Status: Chronic Assessment and Plan: home insulin toujeo- 45 units at hs, ss14 units of lispro Continue basal insulin. Initiate sliding scale insulin, Accu-Cheks, and hypoglycemic protocol. will decrease lantus this am- 20 units (from 40) as few lower readings in am, protein snacks at hs-monitor 08/14- bs low this am- will hold lantus until PO intake improves 08/15 hold insulin 08/21 hyperglycemic - Continue Lantus dose to 15 units, started 4 units lispro TIDWM. Monitor as intake improved. (8) Anemia: Qualifiers: Anemia type: unspecified type Qualified Code(s): D64.9 - Anemia, unspecified Code(s): D64.9 - Anemia, unspecified Status: Acute Assessment and Plan: Iron low -started on iron supplementation - f/u with pcp in 2-3 month for recheck (9) Hypothyroidism (acquired): Code(s): E03.9 - Hypothyroidism, unspecified Status: Acute Assessment [place]: [place] [id number] currently on 75 mcg levothyroxine Will increase to 100 mcg on 08/07 and will need TSH recheck in 6-8 weeks as an outtpt- mid to end of October (10) Coronary artery disease: Code(s): I25.10 - Atherosclerotic heart disease of [place] coronary artery without angina pectoris Status: Acute Assessment and Plan: Chronic, continue home medications. (11) Obstructive sleep apnea on CPAP: Code(s): G47.33 - Obstructive sleep apnea (adult) (pediatric); Z99.89 - Dependence on other enabling machines and devices Status: Chronic Assessment and Plan: Does not use CPAP at home. ABG ordered. Time Spent With Patient Time with patient: 25 - 35 minutes Subjective Date/time seen: 08/21/24 06:56 Interval history: 78-year-old female with coronary artery disease and history of stents, paroxysmal atrial fibrillation on anticoagulation, diastolic congestive heart failure, pulmonary hypertension, obstructive sleep apnea on CPAP, hypertension, hyperlipidemia, chronic kidney disease, anemia, type 2 diabetes mellitus, memory impairment, C difficile diarrhea, depression, suicide attempt in April 2024, and other comorbidities who presented to the emergency department via EMS from home for evaluation of chest pain and shortness of breath. Patient is pleasant lying comfortably in bed. She is back to being AOx2 (self, place) at this time. She continues to have no complaints denying chest pain, shortness of breath, palpitations, nausea/vomiting and abdominal pain. Her HR is intermittently rate controlled on the current regimen. Plan is for cardioversion tomorrow. Review of Systems Review of Systems: 12 systems were reviewed and are negativ e except for as per HPI. Exam Narrative: AF HR 99 RR 20 Spo2 98 BP 109/62 General: female in no acute respiratory distress who is nontoxic appearing, sitting up in bed HEENT: Normocephalic. Atraumatic. Extraocular movement intact. Sclera clear and anicteric. No facial asymmetry. Chest: Lungs are clear to auscultation bilaterally. No wheezes or crackles. CV: Heart was irregularly irregular rhythm and tachycardic. S1-S2. No murmurs, gallops, or rubs. Abd: Abdomen was soft. Nontender. Nondistended. Positive bowel sounds. No organomegaly or masses. Ext: No clubbing, cyanosis, or edema. 2+ DP pulses bilaterally. Neuro: Patient is alert and oriented x2 (self, place). Follows commands. Speech is clear. Strength is symmetrical in pushes and pulls. Objective Data Vital Signs Vital Signs: Vital Signs - 24 hr 08/20/24 08:50 08/20/24 08:50 08/20/24 11:12 Temperature Pulse Rate 120 H 120 H Respiratory Rate Blood Pressure Pulse Oximetry Oxygen Delivery Room Air 08/20/24 12:00 08/20/24 12:59 08/20/24 14:00 Temperature 97.0 F L Pulse Rate 80 118 H 96 Respiratory Rate 20 Blood Pressure 114/65 Pulse Oximetry 94 Oxygen Delivery 08/20/24 15:25 08/20/24 16:00 08/20/24 17:23 Temperature Pulse Rate 79 104 H 80 Respiratory Rate Blood Pressure Pulse Oximetry Oxygen Delivery 08/20/24 20:00 08/20/24 22:00 08/21/24 00:00 Temperature 97.0 F L Pulse Rate 94 57 L 96 Respiratory Rate 20 Blood Pressure 133/72 Pulse Oximetry 98 Oxygen Delivery 08/21/24 00:12 08/21/24 04:00 08/21/24 05:16 Temperature Pulse Rate 89 91 99 Respiratory Rate Blood Pressure Pulse Oximetry Oxygen Delivery Intake/Output Intake/Output: Intake & Output 08/18/24 08/19/24 08/20/24 08/21/24 23:59 23:59 23:59 23:59 Intake Total 580 640 0 Output Total 660 1325 1250 Balance -80 -826 -4580 Meds/Results Medications: Active Medications Generic Name Dose Route Start Last Admin Trade Name Freq PRN Reason Stop Dose Admin Acetaminophen 650 mg 08/06/24 22:10 08/20/24 11:14 Acetaminophen 325 Mg Tablet PO 650 mg Q6H PRN Administration Mild Pain (1-3) or Fever Allopurinol 100 mg 08/07/24 09:00 08/20/24 08:53 Allopurinol 100 Mg Tablet PO 100 mg DAILY NICOLE Administration Apixaban 5 mg 08/06/24 21:20 08/20/24 21:49 Apixaban 5 Mg Tablet PO 5 mg Q12HR NICOLE Administration Bumetanide 1 mg 08/21/24 09:00 Bumetanide 1 Mg Tablet PO DAILY NICOLE Bupropion HCl 150 mg 08/07/24 09:00 08/20/24 08:53 Bupropion Hcl Xl (24 Hr) 150 Mg Tabcr PO 150 mg DAILY NICOLE Administration Buspirone HCl 15 mg 08/07/24 09:00 08/20/24 08:51 Buspirone Hcl 5 Mg Tablet PO 15 mg DAILY NICOLE Administration Calcium Carbonate 500 mg 08/07/24 09:00 08/20/24 08:52 Calcium/Vitamin D 500 Mg/5 Mcg (200 I.U.) Tablet PO 500 mg QAM NICOLE Administration Dextrose 12.5 gm 08/06/24 22:10 Dextrose 50% 25 Gm/50 Ml Syringe IV PUSH PRN PRN Hypoglycemia Protocol Diltiazem HCl 30 mg 08/19/24 13:30 08/21/24 05:16 Diltiazem Hcl 30 Mg Tablet PO 30 mg Q6HR NICOLE Administration Divalproex Sodium 500 mg 08/06/24 21:50 08/20/24 21:50 Divalproex Sodium Er 500 Mg Tab.24h PO 500 mg HS NICOLE Administration Docusate Sodium 100 mg 08/14/24 13:40 Docusate Sodium 100 Mg Capsule PO Q12H PRN Constipation Epoetin Ajit-epbx 10,000 units 08/13/24 09:00 08/20/24 10:28 Epoetin Ajit-Epbx 10,000 Units/Ml Vial SUB-Q 10,000 units TUTHSA@09 NICOLE Administration Famotidine 20 mg 08/06/24 21:20 08/20/24 21:49 Famotidine 20 Mg Tablet PO 20 mg HS NICOLE Administration Ferrous Sulfate 142 mg 08/08/24 08:00 08/20/24 08:52 Ferrous Sulfate Dried 142 Mg Tabcr PO 142 mg DAILY@0800 NICOLE Administration Glucagon 1 mg 08/06/24 22:10 Glucagon For Inj 1 Mg Vial IM PRN PRN Hypoglycemia Protocol Glucose 15 gm 08/06/24 22:10 Glucose Oral Gel 15 Gm Of Glucse In 37.5 Gm Tube PO PRN PRN Hypoglycemia Protocol Dextrose 1,000 mls @ 100 mls/hr 08/06/24 22:10 Dextrose 5% 1,000 Ml IVPB PRN PRN Hypoglycemia Protocol Insulin Aspart 3 - 6 units 08/07/24 08:00 08/20/24 17:19 Insulin Aspart (*Bkc) 100 Units/Ml SUB-Q 3 units TIDWM NICOLE Administration Protocol Insulin Aspart 1 - 3 units 08/07/24 21:00 08/20/24 22:20 Insulin Aspart (*Bkc) 100 Units/Ml SUB-Q 2 units HS NICOLE Administration Protocol Insulin Glargine 15 units 08/18/24 08:46 08/20/24 09:09 Insulin Glargine (*Bkc) 100 Units/Ml SUB-Q 15 units DAILY NICOLE Administration Isosorbide Dinitrate 5 mg 08/09/24 21:00 08/20/24 21:49 Isosorbide Dinitrate 5 Mg Tablet PO 5 mg Q12HR NICOLE Administration Levothyroxine Sodium 100 mcg 08/08/24 06:30 08/21/24 05:16 Levothyroxine Sodium 100 Mcg Tablet PO 100 mcg DAILY@0630 NICOLE Administration Memantine 10 mg 08/06/24 21:15 08/20/24 21:50 Memantine 10 Mg Tablet PO 10 mg Q12HR NICOLE Administration Metoprolol Tartrate 25 mg 08/18/24 12:09 08/21/24 05:16 Metoprolol Tartrate 25 Mg Tablet PO 25 mg Q6HR NICOLE Administration Metoprolol Tartrate 5 mg 08/19/24 14:46 Metoprolol Tartrate Inj 5 Mg/5 Ml Vial IV PUSH Q2H PRN Tachycardia Multivitamins/Minerals 1 tablet 08/07/24 09:00 08/20/24 21:50 Opti-Gen Tab PO 1 tablet Q12HR NICOLE Administration Mupirocin 1 applic 08/07/24 09:00 08/20/24 17:24 Mupirocin 2% Oint 22 Gm Tube TOPICAL 1 applic BID NICOLE Administration Nystatin 1 applic 08/06/24 21:12 Nystatin Ointment 15 Gm Tube TOPICAL BID PRN Rash Pantoprazole Sodium 40 mg 08/07/24 09:00 08/20/24 21:50 Pantoprazole 40 Mg Tablet PO 40 mg Q12HR NICOLE Administration Polyethylene Glycol 17 gm 08/14/24 13:40 Polyethylene Glycol 3350 17 Gm Powd.Pack PO QAM PRN Constipation Venlafaxine HCl 75 mg 08/07/24 09:00 08/20/24 21:49 Venlafaxine Hcl 75 Mg Tablet BY MOUTH 75 mg Q12HR NICOLE Administration Venlafaxine HCl 50 mg 08/07/24 09:00 08/20/24 21:50 Venlafaxine Hcl 25 Mg Tablet BY MOUTH 50 mg Q12HR NICOLE Administration Vitamin B Complex 1 cap 08/07/24 09:00 08/20/24 08:51 Vitamin B Complex Capsule PO 1 cap DAILY NICOLE Administration Radiology Results: ITS Impressions Chest CT 08/06/24 15:17 IMPRESSION: Moderate interstitial pulmonary edema. Trace bilateral pleural effusions. Renal Ultrasound 08/09/24 13:35 IMPRESSION: 1. Normal kidneys. No hydronephrosis. Chest X-Ray 08/11/24 13:18 IMPRESSION: 1. Airspace opacities in the lower lung zones with worsening on the left, consistent with atelectasis versus pneumonia. 2. Worsened small pleural effusions. Head CT 08/13/24 20:44 IMPRESSION: 1. Normal aging brain. Labs Labs: Laboratory Results - last 24 hr 08/20/24 08/20/24 08/20/24 06:02 07:50 11:54 WBC 10.7 H RBC 3.86 L Hgb 10.1 L Hct 34.5 L MCV 89.4 MCH 26.2 MCHC 29.3 L RDW 17.8 H Plt Count 294 MPV 9.5 Immature Gran % (Auto) 0.4 Neut % (Auto) 69.6 Lymph % (Auto) 18.0 L Douglas % (Auto) 7.9 Eos % (Auto) 3.4 Baso % (Auto) 0.7 Lymph # (Auto) 1.93 Douglas # (Auto) 0.9 H Eos # (Auto) 0.4 H Baso # (Auto) 0.1 Abs Immat Gran (auto) 0.04 H Absolute Neuts (auto) 7.5 H Absolute Nucleated RBC 0.000 Nucleated RBC % 0.0 Platelet Estimate Adequate Anisocytosis 1+ Schistocytes None seen Sodium Potassium Chloride Carbon Dioxide Anion Gap BUN Creatinine Estim Creat Clear Calc Estimated GFR Glucose POC Capillary Glucose 267 H 305 H Calcium Total Bilirubin AST ALT Alkaline Phosphatase Total Protein Albumin Urine Color Urine Appearance Urine pH Ur Specific [place] Urine Protein Urine Glucose (UA) Urine Ketones Ur Blood (Man) Urine Nitrate Urine Bilirubin Urine Urobilinogen Ur Leukocyte Esterase Add Ur Microanalysis Urine RBC Urine WBC Ur Squamous Epith Cells Urine Bacteria Urine Casts Hyaline Casts Urine Yeast (Budding) 08/20/24 08/20/24 08/20/24 16:30 18:41 20:58 WBC RBC Hgb Hct MCV MCH MCHC RDW Plt Count MPV Immature Gran % (Auto) Neut % (Auto) Lymph % (Auto) Douglas % (Auto) Eos % (Auto) Baso % (Auto) Lymph # (Auto) Douglas # (Auto) Eos # (Auto) Baso # (Auto) Abs Immat Gran (auto) Absolute Neuts (auto) Absolute Nucleated RBC Nucleated RBC % Platelet Estimate Anisocytosis Schistocytes Sodium Potassium Chloride Carbon Dioxide Anion Gap BUN Creatinine Estim Creat Clear Calc Estimated GFR Glucose POC Capillary Glucose 228 H 252 H Calcium Total Bilirubin AST ALT Alkaline Phosphatase Total Protein Albumin Urine Color Yellow Urine Appearance Cloudy H Urine pH 5.0 Ur Specific [place] 1.020 Urine Protein 1+ H Urine Glucose (UA) Negative Urine Ketones Trace H Ur Blood (Man) Non-hemolyzed trace H Urine Nitrate Negative Urine Bilirubin Negative Urine Urobilinogen 0.2 Ur Leukocyte Esterase 2+ H Add Ur Microanalysis Reviewed Urine RBC 21-50 H Urine WBC 51-100 Ur Squamous Epith Cells None seen Urine Bacteria None seen Urine Casts 6-10 Hyaline Casts Present Urine Yeast (Budding) Present H 08/21/24 06:04 WBC 9.9 RBC 3.75 L Hgb 10.1 L Hct 33.9 L MCV 90.4 MCH 26.9 MCHC 29.8 L RDW 17.9 H Plt Count 274 MPV 9.5 Immature Gran % (Auto) 0.3 Neut % (Auto) 69.3 Lymph % (Auto) 17.8 L Douglas % (Auto) 7.5 Eos % (Auto) 4.3 Baso % (Auto) 0.8 Lymph # (Auto) 1.76 Douglas # (Auto) 0.7 H Eos # (Auto) 0.4 H Baso # (Auto) 0.1 Abs Immat Gran (auto) 0.03 Absolute Neuts (auto) 6.9 H Absolute Nucleated RBC 0.000 Nucleated RBC % 0.0 Platelet Estimate Adequate Anisocytosis 1+ Schistocytes None seen Sodium 140 Potassium 3.7 Chloride 101 Carbon Dioxide 33 H Anion Gap 6 BUN 36 H Creatinine 2.20 H Estim Creat Clear Calc 24 Estimated GFR 22 L Glucose 198 H POC Capillary Glucose Calcium 9.3 Total Bilirubin 0.5 AST 20 ALT 17 Alkaline Phosphatase 130 H Total Protein 7.0 Albumin 3.5 Urine Color Urine Appearance Urine pH Ur Specific [place] Urine Protein Urine Glucose (UA) Urine Ketones Ur Blood (Man) Urine Nitrate Urine Bilirubin Urine Urobilinogen Ur Leukocyte Esterase Add Ur Microanalysis Urine RBC Urine WBC Ur Squamous Epith Cells Urine Bacteria Urine Casts Hyaline Casts Urine Yeast (Budding) Quality VTE Prophylaxis VTE prophylaxis: pharmacologic ordered (on apixaban)
[2024-08-21 07:46] LABS: Glucose Point of Care 212 mg/dl (65-105)
[2024-08-21] MEDS: allopurinoL 100 MG TABLET PO (09:14)
[2024-08-21] MEDS: busPIRone HCL 5 MG TABLET 15 MG PO (09:14)
[2024-08-21] MEDS: CALCIUM/VITAMIN D 500 MG/5 MCG (200 I.U.) TABLET PO (09:15)
[2024-08-21] MEDS: FERROUS SULFATE DRIED 142 MG TABCR PO (09:15)
[2024-08-21] MEDS: VENLAFAXINE HCL 75 MG TABLET BY MOUTH ×2 (09:15→21:22)
[2024-08-21] MEDS: MEMANTINE 10 MG TABLET PO ×2 (09:15→21:22)
[2024-08-21] MEDS: MUPIROCIN 2% OINT 22 GM TUBE 1 APPLIC TOPICAL ×2 (09:15→18:30)
[2024-08-21] MEDS: OPTI-GEN TAB 1 TABLET PO ×2 (09:15→21:21)
[2024-08-21] MEDS: VENLAFAXINE HCL 25 MG TABLET 50 MG BY MOUTH ×2 (09:15→21:22)
[2024-08-21] MEDS: BUMETANIDE 1 MG TABLET PO (09:15)
[2024-08-21] MEDS: ISOSORBIDE DINITRATE 5 MG TABLET PO ×2 (09:15→21:21)
[2024-08-21] MEDS: VITAMIN B COMPLEX CAPSULE 1 CAP PO (09:15)
[2024-08-21] MEDS: PANTOPRAZOLE 40 MG TABLET PO ×2 (09:15→21:22)
[2024-08-21] MEDS: APIXABAN 5 MG TABLET PO ×2 (09:15→21:21)
[2024-08-21] MEDS: buPROPion HCL XL (24 HR) 150 MG TABCR PO (09:15)
[2024-08-21] MEDS: INSULIN ASPART (*BKC) 100 UNITS/ML SUB-Q ×6 (09:16→21:30)
--- NOTE | 2024-08-21 11:17 | PM.PNCARD ---
Progress Note: A&P Assessment and Plan (1) Paroxysmal atrial fibrillation: Code(s): I48.0 - Paroxysmal atrial fibrillation Status: Chronic Assessment and Plan: Remains in RVR despite AV philipp agents - Will need a MARKY cardioversion - Discussed with the primary team and her son. - - Discussed in detail with her son regarding a MARKY/CV. she is DNR. However, the son may rescind DNR for a MARKY/CV. he will discuss with his family and let us know - NPOMN, possible MARKY CV tomorrow with anesthesia support - On anticoagulation (2) Acute on chronic heart failure with preserved ejection fraction (HFpEF, >= 50%): Code(s): I50.33 - Acute on chronic diastolic (congestive) heart failure Status: Acute Assessment and Plan: on bumex 1 mg PO OD, as per nephrology (3) Coronary artery disease: Code(s): I25.10 - Atherosclerotic heart disease of [place] coronary artery without angina pectoris Status: Acute Assessment and Plan: Stable. On Repatha at home. (4) Mixed hyperlipidemia: Code(s): E78.2 - Mixed hyperlipidemia Status: Acute Assessment and Plan: On Repatha at home. (5) Benign hypertension with chronic kidney disease: Code(s): I12.9 - Hypertensive chronic kidney disease with stage 1 through stage 4 chronic kidney disease, or unspecified chronic kidney disease Status: Acute Assessment and Plan: Stable, continue with Isordil, Bumex, Coreg. Subjective Date/time seen: 08/21/24 11:17 Interval history: Remains in Afib/RVR, rate transiently controlled o AV philipp blocking agents Review of Systems Review of Systems: All systems reviewed & are unremarkable except as noted in HPI and below Cardiovascular: Cardiovascular: Reports as per HPI Respiratory: Respiratory: Reports as per HPI Exam Const: General: comfortable and no acute distress HENMT: Mouth: Yes moist mucous membranes Eyes: General: appearance normal, both eyes and all related structures Sclera: sclerae normal EOM: EOMs intact bilaterally Neck: Neck: no JVD Resp: Effort & Inspection: normal respiratory effort Auscultation: diminished lung sounds Other: Decreased breath sounds. On supplemental oxygen. Cardio: Rate: regular rate and tachycardic Rhythm: abnormal rhythm irregularly irregular Other: Skin: General skin exam: normal color Neuro: Speech: normal speech Extrem: General: pedal edema Psych: Mental Status: mental status grossly normal Affect: normal affect Objective Data Vital Signs Vital Signs: Vital Signs - 24 hr 08/20/24 12:00 08/20/24 12:59 08/20/24 14:00 Temperature 36.1 C L Pulse Rate 80 118 H 96 Respiratory Rate 20 Blood Pressure 114/65 Pulse Oximetry 94 08/20/24 15:25 08/20/24 16:00 08/20/24 17:23 Temperature Pulse Rate 79 104 H 80 Respiratory Rate Blood Pressure Pulse Oximetry 08/20/24 20:00 08/20/24 22:00 08/21/24 00:00 Temperature 36.1 C L Pulse Rate 94 57 L 96 Respiratory Rate 20 Blood Pressure 133/72 Pulse Oximetry 98 08/21/24 00:12 08/21/24 04:00 08/21/24 05:16 Temperature Pulse Rate 89 91 99 Respiratory Rate Blood Pressure Pulse Oximetry 08/21/24 06:00 08/21/24 08:00 08/21/24 08:02 Temperature 36.2 C L Pulse Rate 111 H 115 H 91 Respiratory Rate 20 Blood Pressure 109/62 141/66 H Pulse Oximetry 98 08/21/24 08:05 Temperature Pulse Rate 126 H Respiratory Rate Blood Pressure 122/108 H Pulse Oximetry Intake/Output Intake/Output: Intake & Output 08/18/24 08/19/24 08/20/24 08/21/24 23:59 23:59 23:59 23:59 Intake Total 580 640 0 Output Total 660 1325 1250 400 Balance -80 -685 -1250 -400 Meds/Results Medications: Active Medications Generic Name Dose Route Start Last Admin Trade Name Freq PRN Reason Stop Dose Admin Acetaminophen 650 mg 08/06/24 22:10 08/20/24 11:14 Acetaminophen 325 Mg Tablet PO 650 mg Q6H PRN Administration Mild Pain (1-3) or Fever Allopurinol 100 mg 08/07/24 09:00 08/21/24 09:14 Allopurinol 100 Mg Tablet PO 100 mg DAILY NICOLE Administration Apixaban 5 mg 08/06/24 21:20 08/21/24 09:15 Apixaban 5 Mg Tablet PO 5 mg Q12HR NICOLE Administration Bumetanide 1 mg 08/21/24 09:00 08/21/24 09:15 Bumetanide 1 Mg Tablet PO 1 mg DAILY NICOLE Administration Bupropion HCl 150 mg 08/07/24 09:00 08/21/24 09:15 Bupropion Hcl Xl (24 Hr) 150 Mg Tabcr PO 150 mg DAILY NICOLE Administration Buspirone HCl 15 mg 08/07/24 09:00 08/21/24 09:14 Buspirone Hcl 5 Mg Tablet PO 15 mg DAILY NICOLE Administration Calcium Carbonate 500 mg 08/07/24 09:00 08/21/24 09:15 Calcium/Vitamin D 500 Mg/5 Mcg (200 I.U.) Tablet PO 500 mg QAM NICOLE Administration Dextrose 12.5 gm 08/06/24 22:10 Dextrose 50% 25 Gm/50 Ml Syringe IV PUSH PRN PRN Hypoglycemia Protocol Diltiazem HCl 30 mg 08/19/24 13:30 08/21/24 05:16 Diltiazem Hcl 30 Mg Tablet PO 30 mg Q6HR NICOLE Administration Divalproex Sodium 500 mg 08/06/24 21:50 08/20/24 21:50 Divalproex Sodium Er 500 Mg Tab.24h PO 500 mg HS NICOLE Administration Docusate Sodium 100 mg 08/14/24 13:40 Docusate Sodium 100 Mg Capsule PO Q12H PRN Constipation Epoetin Ajit-epbx 10,000 units 08/13/24 09:00 08/20/24 10:28 Epoetin Ajit-Epbx 10,000 Units/Ml Vial SUB-Q 10,000 units TUTHSA@09 NICOLE Administration Famotidine 20 mg 08/06/24 21:20 08/20/24 21:49 Famotidine 20 Mg Tablet PO 20 mg HS NICOLE Administration Ferrous Sulfate 142 mg 08/08/24 08:00 08/21/24 09:15 Ferrous Sulfate Dried 142 Mg Tabcr PO 142 mg DAILY@0800 NICOLE Administration Glucagon 1 mg 08/06/24 22:10 Glucagon For Inj 1 Mg Vial IM PRN PRN Hypoglycemia Protocol Glucose 15 gm 08/06/24 22:10 Glucose Oral Gel 15 Gm Of Glucse In 37.5 Gm Tube PO PRN PRN Hypoglycemia Protocol Dextrose 1,000 mls @ 100 mls/hr 08/06/24 22:10 Dextrose 5% 1,000 Ml IVPB PRN PRN Hypoglycemia Protocol Insulin Aspart 3 - 6 units 08/07/24 08:00 08/21/24 09:16 Insulin Aspart (*Bkc) 100 Units/Ml SUB-Q 3 units TIDWM NICOLE Administration Protocol Insulin Aspart 1 - 3 units 08/07/24 21:00 08/20/24 22:20 Insulin Aspart (*Bkc) 100 Units/Ml SUB-Q 2 units HS NICOLE Administration Protocol Insulin Aspart 4 units 08/21/24 12:00 Insulin Aspart (*Bkc) 100 Units/Ml SUB-Q TIDWM NICOLE Insulin Glargine 15 units 08/18/24 08:46 08/20/24 09:09 Insulin Glargine (*Bkc) 100 Units/Ml SUB-Q 15 units DAILY NICOLE Administration Isosorbide Dinitrate 5 mg 08/09/24 21:00 08/21/24 09:15 Isosorbide Dinitrate 5 Mg Tablet PO 5 mg Q12HR NICOLE Administration Levothyroxine Sodium 100 mcg 08/08/24 06:30 08/21/24 05:16 Levothyroxine Sodium 100 Mcg Tablet PO 100 mcg DAILY@0630 NICOLE Administration Memantine 10 mg 08/06/24 21:15 08/21/24 09:15 Memantine 10 Mg Tablet PO 10 mg Q12HR NICOLE Administration Metoprolol Tartrate 25 mg 08/18/24 12:09 08/21/24 05:16 Metoprolol Tartrate 25 Mg Tablet PO 25 mg Q6HR NICOLE Administration Metoprolol Tartrate 5 mg 08/19/24 14:46 Metoprolol Tartrate Inj 5 Mg/5 Ml Vial IV PUSH Q2H PRN Tachycardia Multivitamins/Minerals 1 tablet 08/07/24 09:00 08/21/24 09:15 Opti-Gen Tab PO 1 tablet Q12HR NICOLE Administration Mupirocin 1 applic 08/07/24 09:00 08/21/24 09:15 Mupirocin 2% Oint 22 Gm Tube TOPICAL 1 applic BID NICOLE Administration Nystatin 1 applic 08/06/24 21:12 Nystatin Ointment 15 Gm Tube TOPICAL BID PRN Rash Pantoprazole Sodium 40 mg 08/07/24 09:00 08/21/24 09:15 Pantoprazole 40 Mg Tablet PO 40 mg Q12HR NICOLE Administration Polyethylene Glycol 17 gm 08/14/24 13:40 Polyethylene Glycol 3350 17 Gm Powd.Pack PO QAM PRN Constipation Venlafaxine HCl 75 mg 08/07/24 09:00 08/21/24 09:15 Venlafaxine Hcl 75 Mg Tablet BY MOUTH 75 mg Q12HR NICOLE Administration Venlafaxine HCl 50 mg 08/07/24 09:00 08/21/24 09:15 Venlafaxine Hcl 25 Mg Tablet BY MOUTH 50 mg Q12HR NICOLE Administration Vitamin B Complex 1 cap 08/07/24 09:00 08/21/24 09:15 Vitamin B Complex Capsule PO 1 cap DAILY NICOLE Administration Radiology Results: ITS Impressions Chest CT 08/06/24 15:17 IMPRESSION: Moderate interstitial pulmonary edema. Trace bilateral pleural effusions. Renal Ultrasound 08/09/24 13:35 IMPRESSION: 1. Normal kidneys. No hydronephrosis. Chest X-Ray 08/11/24 13:18 IMPRESSION: 1. Airspace opacities in the lower lung zones with worsening on the left, consistent with atelectasis versus pneumonia. 2. Worsened small pleural effusions. Head CT 08/13/24 20:44 IMPRESSION: 1. Normal aging brain. Labs Labs: Laboratory Results - last 24 hr 08/20/24 08/20/24 08/20/24 11:54 16:30 18:41 WBC RBC Hgb Hct MCV MCH MCHC RDW Plt Count MPV Immature Gran % (Auto) Neut % (Auto) Lymph % (Auto) Grady % (Auto) Eos % (Auto) Baso % (Auto) Lymph # (Auto) [place]ady # (Auto) Eos # (Auto) Baso # (Auto) Abs Immat Gran (auto) Absolute Neuts (auto) Absolute Nucleated RBC Nucleated RBC % Platelet Estimate Anisocytosis Schistocytes Sodium Potassium Chloride Carbon Dioxide Anion Gap BUN Creatinine Estim Creat Clear Calc Estimated GFR Glucose POC Capillary Glucose 305 H 228 H Calcium Total Bilirubin AST ALT Alkaline Phosphatase Total Protein Albumin Urine Color Yellow Urine Appearance Cloudy H Urine pH 5.0 Ur Specific [place] 1.020 Urine Protein 1+ H Urine Glucose (UA) Negative Urine Ketones Trace H Ur Blood (Man) Non-hemolyzed trace H Urine Nitrate Negative Urine Bilirubin Negative Urine Urobilinogen 0.2 Ur Leukocyte Esterase 2+ H Add Ur Microanalysis Reviewed Urine RBC 21-50 H Urine WBC 51-100 Ur Squamous Epith Cells None seen Urine Bacteria None seen Urine Casts 6-10 Hyaline Casts Present Urine Yeast (Budding) Present H 08/20/24 08/21/24 08/21/24 20:58 06:04 07:36 WBC 9.9 RBC 3.75 L Hgb 10.1 L Hct 33.9 L MCV 90.4 MCH 26.9 MCHC 29.8 L RDW 17.9 H Plt Count 274 MPV 9.5 Immature Gran % (Auto) 0.3 Neut % (Auto) 69.3 Lymph % (Auto) 17.8 L Grady % (Auto) 7.5 Eos % (Auto) 4.3 Baso % (Auto) 0.8 Lymph # (Auto) 1.76 Grady # (Auto) 0.7 H Eos # (Auto) 0.4 H Baso # (Auto) 0.1 Abs Immat Gran (auto) 0.03 Absolute Neuts (auto) 6.9 H Absolute Nucleated RBC 0.000 Nucleated RBC % 0.0 Platelet Estimate Adequate Anisocytosis 1+ Schistocytes None seen Sodium 140 Potassium 3.7 Chloride 101 Carbon Dioxide 33 H Anion Gap 6 BUN 36 H Creatinine 2.20 H Estim Creat Clear Calc 24 Estimated GFR 22 L Glucose 198 H POC Capillary Glucose 252 H 212 H Calcium 9.3 Total Bilirubin 0.5 AST 20 ALT 17 Alkaline Phosphatase 130 H Total Protein 7.0 Albumin 3.5 Urine Color Urine Appearance Urine pH Ur Specific [place] Urine Protein Urine Glucose (UA) Urine Ketones Ur Blood (Man) Urine Nitrate Urine Bilirubin Urine Urobilinogen Ur Leukocyte Esterase Add Ur Microanalysis Urine RBC Urine WBC Ur Squamous Epith Cells Urine Bacteria Urine Casts Hyaline Casts Urine Yeast (Budding)
[2024-08-21 11:24] LABS: Glucose Point of Care 264 mg/dl (65-105)
[2024-08-21] MEDS: INSULIN GLARGINE (*BKC) 100 UNITS/ML 15 UNITS SUB-Q (11:52)
--- NOTE | 2024-08-21 12:55 | P.PNNP_ITS ---
Progress Note: A&P Assessment and Plan (1) ALBERTINA (acute kidney injury): Code(s): N17.9 - Acute kidney failure, unspecified Status: Acute Assessment and Plan: * stable if not resolved * elevated on admission (but close to what it was on last hospital discharge) * worsening noted during this hospitalization after admission * however, seems to have stabilized * holding diuretics on last hospitalization resulted in only mild improvement in renal function (and may have precipitated re-admission) * evaluation noted: * renal u/s normal * CPK slightly elevated (but not likely to affect kidney function) * urine electrolytes prerenal * UA negative for infection by culture * moderate proteinuria * follow trend of repeat labs and UOP (2) Chronic kidney disease, stage IV (severe): Code(s): N18.4 - Chronic kidney disease, stage 4 (severe) Status: Chronic Assessment and Plan: * baseline creatinine fluctuates to extremes -- anywhere from 1.6 - 2.4mg/dl (in the last year) * this causes her to fluctuate between CKD stage 3b and stage 4 * due to her hypertension, diabetes, obstructive sleep apnea, gout, diastolic heart failure + diuretics, and age-related change * this may be a situation where we have to accept a higher creatinine to maintain her volume status... (3) Acute on chronic diastolic heart failure: Code(s): I50.33 - Acute on chronic diastolic (congestive) heart failure Status: Acute Assessment and Plan: * improvement noted * as noted by presentation to the ER: * bilateral LE edema + SOB + orthopnea * BNP: 1560 * admission CXR with nterstitial prominence suggesting pneumonitis or pulmonary interstitial edema. Possible minimal pleural effusions * chest CT with moderate interstitial pulmonary edema and trace bilateral pleural effusions * was on IV diuretics * trial dose of metolazone x 3 days with reasonable response * transitioned to oral bumex * Cardiology following * follow respiratory status (4) Hypertension: Qualifiers: Hypertension type: unspecified Qualified Code(s): I10 - Essential (primary) hypertension Code(s): I10 - Essential (primary) hypertension Status: Chronic Assessment and Plan: * reasonable control at this time * follow trend of hemodynamics (5) Paroxysmal atrial fibrillation: Code(s): I48.0 - Paroxysmal atrial fibrillation Status: Chronic Assessment and Plan: * focusing on rate control strategy - has not been successful * on anticoagulation * Cardiology following * noted plan for possible MARKY/cardioversion tomorrow (6) Anemia: Qualifiers: Anemia type: unspecified type Qualified Code(s): D64.9 - Anemia, unspecified Code(s): D64.9 - Anemia, unspecified Status: Acute Assessment and Plan: * improved * partly related to CKD along with ALBERTINA and acute illness * Retacrit 3x/week while hospitalized * likely discontinue on discharge * PRBC transfusion per protocol * follow trend of H/H (7) Type 2 diabetes mellitus: Code(s): E11.9 - Type 2 diabetes mellitus without complications Status: Acute Assessment and Plan: * follow accu-cheks * glycemic control per hospitalists Not much else to add at this time -- will continue to follow intermittently. Subjective Date/time seen: 08/21/24 12:55 Interval history: Follow-up for acute kidney injury/acute renal failure on chronic kidney disease. Mentation seems to be a bit better since I last saw her; continues to have issues with atrial fibrillation with RVR despite ongoing medical therapy with the tentative plan for MARKY/cardioversion tomorrow for hopefully definitive treatment; renal function/creatinine remains stable with acceptable urine output on current diuretic therapy; no apparent distress noted at the time of my visit. Exam 2 Narrative: General: elderly but WD/WN female in NAD Heart: IRRR, normal S1 and S2; no rub Lungs: clear anteriorly; decreased at bases Abdomen: soft, nontender, nondistended, positive bowel sounds Extremities: no cyanosis or clubbing; trace edema Skin: warm and intact Objective Data Vital Signs Vital Signs: Vital Signs Temp Pulse Resp BP Pulse Ox O2 Del Method FiO2 08/21/24 12:00 97.1 F L 91 20 111/75 93 08/21/24 11:52 99 08/21/24 08:05 126 H 122/108 H 08/21/24 08:02 91 08/21/24 08:00 91 20 93 Room Air 21 08/21/24 08:00 115 H 141/66 H 08/21/24 06:00 97.2 F L 111 H 20 109/62 98 08/21/24 05:16 99 08/21/24 04:00 91 08/21/24 00:12 89 08/21/24 00:00 96 08/20/24 22:00 97.0 F L 57 L 20 133/72 98 08/20/24 20:00 94 08/20/24 17:23 80 Intake/Output Intake/Output: Intake & Output 08/18/24 08/19/24 08/20/24 08/21/24 23:59 23:59 23:59 23:59 Intake Total 580 640 0 80 Output Total 660 1325 1250 400 Balance -80 -685 -1250 -320 Meds/Results Medications: Active Medications Generic Name Dose Route Start Last Admin Trade Name Freq PRN Reason Stop Dose Admin Acetaminophen 650 mg 08/06/24 22:10 08/20/24 11:14 Acetaminophen 325 Mg Tablet PO 650 mg Q6H PRN Administration Mild Pain (1-3) or Fever Allopurinol 100 mg 08/07/24 09:00 08/21/24 09:14 Allopurinol 100 Mg Tablet PO 100 mg DAILY NICOLE Administration Apixaban 5 mg 08/06/24 21:20 08/21/24 09:15 Apixaban 5 Mg Tablet PO 5 mg Q12HR NICOLE Administration Bumetanide 1 mg 08/21/24 09:00 08/21/24 09:15 Bumetanide 1 Mg Tablet PO 1 mg DAILY NICOLE Administration Bupropion HCl 150 mg 08/07/24 09:00 08/21/24 09:15 Bupropion Hcl Xl (24 Hr) 150 Mg Tabcr PO 150 mg DAILY NICOLE Administration Buspirone HCl 15 mg 08/07/24 09:00 08/21/24 09:14 Buspirone Hcl 5 Mg Tablet PO 15 mg DAILY NICOLE Administration Calcium Carbonate 500 mg 08/07/24 09:00 08/21/24 09:15 Calcium/Vitamin D 500 Mg/5 Mcg (200 I.U.) Tablet PO 500 mg QAM NICOLE Administration Dextrose 12.5 gm 08/06/24 22:10 Dextrose 50% 25 Gm/50 Ml Syringe IV PUSH PRN PRN Hypoglycemia Protocol Diltiazem HCl 30 mg 08/19/24 13:30 08/21/24 11:52 Diltiazem Hcl 30 Mg Tablet PO 30 mg Q6HR NICOLE Administration Divalproex Sodium 500 mg 08/06/24 21:50 08/20/24 21:50 Divalproex Sodium Er 500 Mg Tab.24h PO 500 mg HS NICOLE Administration Docusate Sodium 100 mg 08/14/24 13:40 Docusate Sodium 100 Mg Capsule PO Q12H PRN Constipation Epoetin Ajit-epbx 10,000 units 08/13/24 09:00 08/20/24 10:28 Epoetin Ajit-Epbx 10,000 Units/Ml Vial SUB-Q 10,000 units TUTHSA@09 NICOLE Administration Famotidine 20 mg 08/06/24 21:20 08/20/24 21:49 Famotidine 20 Mg Tablet PO 20 mg HS NICOLE Administration Ferrous Sulfate 142 mg 08/08/24 08:00 08/21/24 09:15 Ferrous Sulfate Dried 142 Mg Tabcr PO 142 mg DAILY@0800 NICOLE Administration Glucagon 1 mg 08/06/24 22:10 Glucagon For Inj 1 Mg Vial IM PRN PRN Hypoglycemia Protocol Glucose 15 gm 08/06/24 22:10 Glucose Oral Gel 15 Gm Of Glucse In 37.5 Gm Tube PO PRN PRN Hypoglycemia Protocol Dextrose 1,000 mls @ 100 mls/hr 08/06/24 22:10 Dextrose 5% 1,000 Ml IVPB PRN PRN Hypoglycemia Protocol Insulin Aspart 3 - 6 units 08/07/24 08:00 08/21/24 14:05 Insulin Aspart (*Bkc) 100 Units/Ml SUB-Q 5 units TIDWM NICOLE Administration Protocol Insulin Aspart 1 - 3 units 08/07/24 21:00 08/20/24 22:20 Insulin Aspart (*Bkc) 100 Units/Ml SUB-Q 2 units HS NICOLE Administration Protocol Insulin Aspart 4 units 08/21/24 12:00 08/21/24 14:07 Insulin Aspart (*Bkc) 100 Units/Ml SUB-Q 4 units TIDWM NICOLE Administration Insulin Glargine 15 units 08/18/24 08:46 08/21/24 11:52 Insulin Glargine (*Bkc) 100 Units/Ml SUB-Q 15 units DAILY NICOLE Administration Isosorbide Dinitrate 5 mg 08/09/24 21:00 08/21/24 09:15 Isosorbide Dinitrate 5 Mg Tablet PO 5 mg Q12HR NICOLE Administration Levothyroxine Sodium 100 mcg 08/08/24 06:30 08/21/24 05:16 Levothyroxine Sodium 100 Mcg Tablet PO 100 mcg DAILY@0630 [facility] Administration Memantine 10 mg 08/06/24 21:15 08/21/24 09:15 Memantine 10 Mg Tablet PO 10 mg Q12HR NICOLE Administration Metoprolol Tartrate 25 mg 08/18/24 12:09 08/21/24 11:52 Metoprolol Tartrate 25 Mg Tablet PO 25 mg Q6HR NICOLE Administration Metoprolol Tartrate 5 mg 08/19/24 14:46 Metoprolol Tartrate Inj 5 Mg/5 Ml Vial IV PUSH Q2H PRN Tachycardia Multivitamins/Minerals 1 tablet 08/07/24 09:00 08/21/24 09:15 Opti-Gen Tab PO 1 tablet Q12HR NICOLE Administration Mupirocin 1 applic 08/07/24 09:00 08/21/24 09:15 Mupirocin 2% Oint 22 Gm Tube TOPICAL 1 applic BID NICOLE Administration Nystatin 1 applic 08/06/24 21:12 Nystatin Ointment 15 Gm Tube TOPICAL BID PRN Rash Pantoprazole Sodium 40 mg 08/07/24 09:00 08/21/24 09:15 Pantoprazole 40 Mg Tablet PO 40 mg Q12HR NICOLE Administration Polyethylene Glycol 17 gm 08/14/24 13:40 Polyethylene Glycol 3350 17 Gm Powd.Pack PO QAM PRN Constipation Venlafaxine HCl 75 mg 08/07/24 09:00 08/21/24 09:15 Venlafaxine Hcl 75 Mg Tablet BY MOUTH 75 mg Q12HR NICOLE Administration Venlafaxine HCl 50 mg 08/07/24 09:00 08/21/24 09:15 Venlafaxine Hcl 25 Mg Tablet BY MOUTH 50 mg Q12HR NICOLE Administration Vitamin B Complex 1 cap 08/07/24 09:00 08/21/24 09:15 Vitamin B Complex Capsule PO 1 cap DAILY NICOLE Administration Radiology Results: ITS Impressions Chest CT 08/06/24 15:17 IMPRESSION: Moderate interstitial pulmonary edema. Trace bilateral pleural effusions. Renal Ultrasound 08/09/24 13:35 IMPRESSION: 1. Normal kidneys. No hydronephrosis. Chest X-Ray 08/11/24 13:18 IMPRESSION: 1. Airspace opacities in the lower lung zones with worsening on the left, consistent with atelectasis versus pneumonia. 2. Worsened small pleural effusions. Head CT 08/13/24 20:44 IMPRESSION: 1. Normal aging brain. Labs Labs: Laboratory Tests 08/21/24 06:04 08/21/24 06:04 Calcium 9.3 Total Bilirubin 0.5 AST 20 ALT 17 Alkaline Phosphatase 130 H Total Protein 7.0 Albumin 3.5
[2024-08-21 13:49] LABS: Glucose Point of Care 309 mg/dl (65-105)
[2024-08-21 16:28] LABS: Glucose Point of Care 337 mg/dl (65-105)
[2024-08-21 20:25] LABS: Glucose Point of Care 251 mg/dl (65-105)
[2024-08-21] MEDS: DIVALPROEX SODIUM ER 500 MG TAB.24H PO (21:21)
[2024-08-21] MEDS: FAMOTIDINE 20 MG TABLET PO (21:21)
[2024-08-22] VITALS (13 sets, daily range): BP systolic 106–130; BP diastolic 70–89; PULSE 73–124; RESP 14–20; TEMP 36.4–37; O2SAT 94–100
[2024-08-22] MEDS: METOPROLOL TARTRATE 25 MG TABLET PO (01:04)
[2024-08-22] MEDS: dilTIAZem HCL 30 MG TABLET PO (01:04)
[2024-08-22 07:03] LABS: Basophils Absolute Auto 0.1 K/mm3 (0.0-0.1); Basophils Percent Auto 0.6 % (0.2-1.2); Eosinophils Absolute Auto 0.4 K/mm3 (0-0.3); Eosinophils Percent Auto 3.4 % (0-4.4); Hematocrit 34.3 % (37.0-47.0); Immature Granulocyte Absolute 0.03 K/mm3 (0.00-0.031); Immature Granulocyte Percent A 0.3 % (0-0.5); Lymphocytes Absolute Auto 1.57 K/mm3 (0.9-3.2); Lymphocytes Percent Auto 14.5 % (18.3-44.2); Mean Corpuscular HGB Conc 29.2 g/dl (32-36); Mean Corpuscular Hemoglobin 26.5 pg (26-34); Monocytes Absolute Auto 0.9 K/mm3 (0.1-0.6); Neutrophils Absolute Auto 7.9 K/mm3 (1.3-6.7); Neutrophils Percent Auto 73.2 % (45.5-73.1); Platelet Count Result 316 k/mm3 (150-375); Red Blood Count 3.77 M/mm3 (4.2-5.4); Red Cell Distribution Width 17.9 % (11.5-14.5); White Blood Count 10.8 K/mm3 (4.5-10.0)
[2024-08-22 07:21] LABS: Alanine Aminotransferase 17 U/L (6-35); Albumin Level 3.6 g/dL (3.5-5.1); Alkaline Phosphatase 122 U/L (38-126); Anion Gap 7 mmol/L (4-12); Aspartate Amino Transferase 18 U/L (14-36); Bilirubin,Total 0.4 mg/dL (0.2-1.3); Blood Urea Nitrogen 34 mg/dL (7-17); Calcium 9.3 mg/dL (8.4-10.2); Carbon Dioxide 34 mmol/L (22-30); Chloride 99 mmol/L (98-107); Estimated CRCL calculation 24 ml/min; Estimated Glomerular Filt Rate 22; Glucose 134 mg/dL (65-110); Potassium 3.3 mmol/L (3.4-5.0); Sodium 140 mmol/L (137-145)
[2024-08-22 07:46] LABS: Anisocytosis 1+; Ovalocytes 1+; Platelet Estimate Adequate (Adequate); Schistocytes None Seen
[2024-08-22 07:48] LABS: Glucose Point of Care 139 mg/dl (65-105)
[2024-08-22] MEDS: ISOSORBIDE DINITRATE 5 MG TABLET PO ×2 (09:12→20:19)
[2024-08-22] MEDS: APIXABAN 5 MG TABLET PO ×2 (09:12→20:18)
[2024-08-22] MEDS: FERROUS SULFATE DRIED 142 MG TABCR PO (09:13)
[2024-08-22] MEDS: BUMETANIDE 1 MG TABLET PO (09:14)
[2024-08-22] MEDS: busPIRone HCL 5 MG TABLET 15 MG PO (09:14)
[2024-08-22] MEDS: VENLAFAXINE HCL 25 MG TABLET 50 MG BY MOUTH ×2 (09:15→20:18)
[2024-08-22] MEDS: VITAMIN B COMPLEX CAPSULE 1 CAP PO (09:15)
[2024-08-22] MEDS: CALCIUM/VITAMIN D 500 MG/5 MCG (200 I.U.) TABLET PO (09:15)
[2024-08-22] MEDS: VENLAFAXINE HCL 75 MG TABLET BY MOUTH ×2 (09:17→20:19)
[2024-08-22] MEDS: buPROPion HCL XL (24 HR) 150 MG TABCR PO (09:17)
[2024-08-22] MEDS: MEMANTINE 10 MG TABLET PO ×2 (09:17→20:18)
[2024-08-22] MEDS: OPTI-GEN TAB 1 TABLET PO ×2 (09:17→20:18)
[2024-08-22] MEDS: allopurinoL 100 MG TABLET PO (09:17)
[2024-08-22] MEDS: PANTOPRAZOLE 40 MG TABLET PO ×2 (09:18→20:19)
[2024-08-22] MEDS: MUPIROCIN 2% OINT 22 GM TUBE 1 APPLIC TOPICAL ×2 (09:19→16:49)
--- NOTE | 2024-08-22 09:23 | P.PNIM_ITS ---
Progress Note: A&P Assessment and Plan (1) Altered mental status: Qualifiers: Altered mental status type: unspecified Qualified Code(s): R41.82 - Altered mental status, unspecified Code(s): R41.82 - Altered mental status, unspecified Status: Resolved Assessment and Plan: Patient may have underlying dementia with superimposed metabolic encephalopathy as the cause for her problem ua was collected,chest xray done to rule out any infectious causes - son states that pt has problems with normal activities like eating-and has episodes of confusion, ?blanking out she is pretty much at her base level with some episodes of forgetfulness. - head ct unremarkable -appreciate neurology recom. Phil stopped EEG shows diffuse background slowing consistent with a generalized encephalopathy. Continue the antidepressants as before. Namenda which can be continued. Patient is AOx2 (person, place). Following commands. (2) Acute respiratory failure with hypoxia: Code(s): J96.01 - Acute respiratory failure with hypoxia Status: Acute Assessment and Plan: Per chart review, according to EMS her SpO2 was 84% on room air and she was placed on a non-rebreather at 15 L with some improvement. Baseline RA. Likely secondary to CHF exacerbation. - Back to baseline RA - Wean as tolerated for SpO2 > 90 08/11- will order chest xray since oxygen requirements increased Chest XR: atelectasis vs pneumonia- will treat as pneumonia in setting increased oxygen demands and confusion. Remains on room air (3) Paroxysmal atrial fibrillation: Code(s): I48.0 - Paroxysmal atrial fibrillation Status: Chronic Assessment and Plan: - Current home medication: Amiodarone 200 mg daily , Coreg 6.25 mg BID, Eliquis 5 mg BID EKG 08/16: Afib RVR HR 121 Patient was noted to be in afib RVR with HR 121 as seen on EKG. Overnight MD ordered amiodarone 200 mg x1 at that time. Patient remains in afib RVR with HR 110-130s. Asymptomatic. Attempted to call Dr. Griffith and left a voicemail. Patient coreg increased to 12.5 mg BID on 08/17. 08/18: Patient hypotension and remains in afib RVR HR 120-130s, changed coreg to metoprolol given less of an impact on BP. Discussed with cardiology [employer] and will start on metoprolol 25 mg q6H. Monitor. 08/19: HR remains in the 110-120s occasionally 130s. Patient asymptomatic. Cardiology evaluated patient Continue metoprolol 25 mg q6H Discontinue amiodarone and started on diltiazem 30 mg q6H Monitor 08/20: HR remains in the 110-120s occasionally 130s on the current oral medications. Call made to Dr. Griffith and patient given IV digoxin x1. Returned to review tele and she was rate controlled in the 90s. 08/21: HR is intermittently rate controlled on current regimen. Cardiology plans for MARKY/CV tomorrow. 08/22: Cardiology no longer planning for a MARKY/CV as patients rates appear much better controlled today. Metoprolol 100 mg BID and diltiazem 120 mg daily Monitor (4) Pneumonia: Qualifiers: Laterality: bilateral Lung location: unspecified part of lung Pneumonia type: due to unspecified organism Qualified Code(s): J18.9 - Pneumonia, unspecified organism Code(s): J18.9 - Pneumonia, unspecified organism Status: Resolved Assessment and Plan: CXR 08/11: 1. Airspace opacities in the lower lung zones with worsening on the left, consistent with atelectasis versus pneumonia. 2. Worsened small pleural effusions. - started on doxy and augmentin course to be completed on 08/19 - Viral PCR: negative for Flu/COVID/RSV - weaned back to baseline room air - Monitor vital signs, I&Os, neuro status and patient is a fall risk - Follow WBC, serum electrolytes, temperature curves and cultures Resolved. (5) Urinary tract infection: Code(s): N39.0 - Urinary tract infection, site not specified Status: Acute Assessment and Plan: ua was collected 08/11 due to increased confusion. start cefepime to cover uti/pneumonia urine culture: klebsiella pneumoniae pansensitive switched to PO antibiotics Augmentin- last dose 08/18 9 pm Resolved. (6) Acute kidney injury superimposed on chronic kidney disease: Code(s): N17.9 - Acute kidney failure, unspecified; N18.9 - Chronic kidney disease, unspecified Status: Acute Assessment and Plan: Per nephrology note on 07/29, baseline creatinine fluctuates to extremes -- anywhere from 1.6 - 2.4mg/dl (in the last year) - BUN/Cr 34/2.2 on am labs - Worsening Cr likely related to patients ongoing diuresis for CHF exacerbation (Bumex made daily instead of BID) vs overcontrol of her BP per nephrology note consider having BP range closer to 150s systolic - Monitor renal function and I/O - Avoid nephrotoxic medications - Renally dose medications - Nephrology consulted, appreciate recommendations (7) Type 2 diabetes mellitus with hyperglycemia, with long-term current use of insulin: Code(s): E11.65 - Type 2 diabetes mellitus with hyperglycemia; Z79.4 - longterm (current) use of insulin Status: Chronic Assessment and Plan: home insulin toujeo- 45 units at hs, ss14 units of lispro Continue basal insulin. Initiate sliding scale insulin, Accu-Cheks, and hypoglycemic protocol. will decrease lantus this am- 20 units (from 40) as few lower readings in am, protein snacks at hs-monitor 08/14- bs low this am- will hold lantus until PO intake improves 08/15 hold insulin 08/21 hyperglycemic - Continue Lantus dose to 15 units, started 4 units lispro TIDWM. Monitor as intake improved. 08/22 blood glucose levels better controlled today, continue to monitor (8) Anemia: Qualifiers: Anemia type: unspecified type Qualified Code(s): D64.9 - Anemia, unspecified Code(s): D64.9 - Anemia, unspecified Status: Acute Assessment and Plan: Iron low -started on iron supplementation - f/u with pcp in 2-3 month for recheck (9) Hypothyroidism (acquired): Code(s): E03.9 - Hypothyroidism, unspecified Status: Acute Assessment [place]: [place] [id number] currently on 75 mcg levothyroxine Will increase to 100 mcg on 08/07 and will need TSH recheck in 6-8 weeks as an outtpt- mid to end of October (10) Coronary artery disease: Code(s): I25.10 - Atherosclerotic heart disease of [place] coronary artery without angina pectoris Status: Acute Assessment and Plan: Chronic, continue home medications. (11) Obstructive sleep apnea on CPAP: Code(s): G47.33 - Obstructive sleep apnea (adult) (pediatric); Z99.89 - Dependence on other enabling machines and devices Status: Chronic Assessment and Plan: Does not use CPAP at home. ABG ordered. Time Spent With Patient Time with patient: 25 - 35 minutes Subjective Date/time seen: 08/22/24 09:23 Interval history: 78-year-old female with coronary artery disease and history of stents, paroxysmal atrial fibrillation on anticoagulation, diastolic congestive heart failure, pulmonary hypertension, obstructive sleep apnea on CPAP, hypertension, hyperlipidemia, chronic kidney disease, anemia, type 2 diabetes mellitus, memory impairment, C difficile diarrhea, depression, suicide attempt in April 2024, and other comorbidities who presented to the emergency department via EMS from home for evaluation of chest pain and shortness of breath. Patient is pleasant lying in bed. She remains AOx2 with clear speech following commands. She has no complaints denying chest pain, shortness of breath, palpitations, nausea/vomiting and abdominal pain. She was to have a MARKY/CV today, however since her heart rate appears to be doing better cardiology has decided to adjust medications instead. Will continue to monitor. Review of Systems Review of Systems: 12 systems were reviewed and are negativ e except for as per HPI. Exam Narrative: AF HR 96 RR 14 SpO2 96 BP 126/89 General: female in no acute respiratory distress who is nontoxic appearing, sitting up in bed HEENT: Normocephalic. Atraumatic. Extraocular movement intact. Sclera clear and anicteric. No facial asymmetry. Chest: Lungs are clear to slightly diminished bilaterally. No wheezes or crackles. CV: Heart was irregularly irregular rhythm and normal rate. S1-S2. No murmurs, gallops, or rubs. Abd: Abdomen was soft. Nontender. Nondistended. Positive bowel sounds. No organomegaly or masses. Ext: No clubbing, cyanosis, or edema. 2+ DP pulses bilaterally. Neuro: Patient is alert and oriented x2 (self, place). Follows commands. Speech is clear. Strength is symmetrical in pushes and pulls. Objective Data Vital Signs Vital Signs: Vital Signs - 24 hr 08/21/24 11:52 08/21/24 12:00 08/21/24 14:00 Temperature 97.1 F L Pulse Rate 99 95 91 Respiratory Rate 20 Blood Pressure 111/75 Pulse Oximetry 93 08/21/24 16:00 08/21/24 18:36 08/21/24 20:00 Temperature Pulse Rate 86 94 100 Respiratory Rate Blood Pressure Pulse Oximetry 08/21/24 20:33 08/22/24 00:00 08/22/24 01:04 Temperature 97.0 F L Pulse Rate 80 109 H 107 H Respiratory Rate 20 Blood Pressure 144/66 H Pulse Oximetry 98 08/22/24 04:00 08/22/24 05:28 Temperature 97.6 F Pulse Rate 98 73 Respiratory Rate 20 Blood Pressure 107/70 Pulse Oximetry 98 Intake/Output Intake/Output: Intake & Output 08/19/24 08/20/24 08/21/24 08/22/24 23:59 23:59 23:59 23:59 Intake Total 640 0 80 100 Output Total 1325 1250 775 250 [facility] -685 -1250 -695 -150 Meds/Results Medications: Active Medications Generic Name Dose Route Start Last Admin Trade Name Freq PRN Reason Stop Dose Admin Acetaminophen 650 mg 08/06/24 22:10 08/20/24 11:14 Acetaminophen 325 Mg Tablet PO 650 mg Q6H PRN Administration Mild Pain (1-3) or Fever Allopurinol 100 mg 08/07/24 09:00 08/22/24 09:17 Allopurinol 100 Mg Tablet PO 100 mg DAILY NICOLE Administration Apixaban 5 mg 08/06/24 21:20 08/22/24 09:12 Apixaban 5 Mg Tablet PO 5 mg Q12HR NICOLE Administration Bumetanide 1 mg 08/21/24 09:00 08/22/24 09:14 Bumetanide 1 Mg Tablet PO 1 mg DAILY NICOLE Administration Bupropion HCl 150 mg 08/07/24 09:00 08/22/24 09:17 Bupropion Hcl Xl (24 Hr) 150 Mg Tabcr PO 150 mg DAILY NICOLE Administration Buspirone HCl 15 mg 08/07/24 09:00 08/22/24 09:14 Buspirone Hcl 5 Mg Tablet PO 15 mg DAILY NICOLE Administration Calcium Carbonate 500 mg 08/07/24 09:00 08/22/24 09:15 Calcium/Vitamin D 500 Mg/5 Mcg (200 I.U.) Tablet PO 500 mg QAM NICOLE Administration Dextrose 12.5 gm 08/06/24 22:10 Dextrose 50% 25 Gm/50 Ml Syringe IV PUSH PRN PRN Hypoglycemia Protocol Diltiazem HCl 30 mg 08/19/24 13:30 08/22/24 06:04 Diltiazem Hcl 30 Mg Tablet PO Not Given Q6HR NICLOE Divalproex Sodium 500 mg 08/06/24 21:50 08/21/24 21:21 Divalproex Sodium Er 500 Mg Tab.24h PO 500 mg HS NICOLE Administration Docusate Sodium 100 mg 08/14/24 13:40 Docusate Sodium 100 Mg Capsule PO Q12H PRN Constipation Epoetin Ajit-epbx 10,000 units 08/13/24 09:00 08/20/24 10:28 Epoetin Ajit-Epbx 10,000 Units/Ml Vial SUB-Q 10,000 units TUTHSA@09 NICOLE Administration Famotidine 20 mg 08/06/24 21:20 08/21/24 21:21 Famotidine 20 Mg Tablet PO 20 mg HS NICOLE Administration Ferrous Sulfate 142 mg 08/08/24 08:00 08/22/24 09:13 Ferrous Sulfate Dried 142 Mg Tabcr PO 142 mg DAILY@0800 NICOLE Administration Glucagon 1 mg 08/06/24 22:10 Glucagon For Inj 1 Mg Vial IM PRN PRN Hypoglycemia Protocol Glucose 15 gm 08/06/24 22:10 Glucose Oral Gel 15 Gm Of Glucse In 37.5 Gm Tube PO PRN PRN Hypoglycemia Protocol Dextrose 1,000 mls @ 100 mls/hr 08/06/24 22:10 Dextrose 5% 1,000 Ml IVPB PRN PRN Hypoglycemia Protocol Insulin Aspart 3 - 6 units 08/07/24 08:00 08/22/24 07:45 Insulin Aspart (*Bkc) 100 Units/Ml SUB-Q Not Given TIDWM [facility] Protocol Insulin Aspart 1 - 3 units 08/07/24 21:00 08/21/24 21:30 Insulin Aspart (*Bkc) 100 Units/Ml SUB-Q 2 units HS [facility] Administration Protocol Insulin Aspart 4 units 08/21/24 12:00 08/22/24 07:47 Insulin Aspart (*Bkc) 100 Units/Ml SUB-Q Not Given TIDWM [facility] Insulin Glargine 15 units 08/18/24 08:46 08/22/24 07:48 Insulin Glargine (*Bkc) 100 Units/Ml SUB-Q Not Given DAILY [facility] Isosorbide Dinitrate 5 mg 08/09/24 21:00 08/22/24 09:12 Isosorbide Dinitrate 5 Mg Tablet PO 5 mg Q12HR NICOLE Administration Levothyroxine Sodium 100 mcg 08/08/24 06:30 08/22/24 06:04 Levothyroxine Sodium 100 Mcg Tablet PO Not Given DAILY@0630 [facility] Memantine 10 mg 08/06/24 21:15 08/22/24 09:17 Memantine 10 Mg Tablet PO 10 mg Q12HR NICOLE Administration Metoprolol Tartrate 25 mg 08/18/24 12:09 08/22/24 06:04 Metoprolol Tartrate 25 Mg Tablet PO Not Given Q6HR [facility] Metoprolol Tartrate 5 mg 08/19/24 14:46 Metoprolol Tartrate Inj 5 Mg/5 Ml Vial IV PUSH Q2H PRN Tachycardia Multivitamins/Minerals 1 tablet 08/07/24 09:00 08/22/24 09:17 Opti-Gen Tab PO 1 tablet Q12HR [facility] Administration Mupirocin 1 applic 08/07/24 09:00 08/22/24 09:19 Mupirocin 2% Oint 22 Gm Tube TOPICAL 1 applic BID NICOLE Administration Nystatin 1 applic 08/06/24 21:12 Nystatin Ointment 15 Gm Tube TOPICAL BID PRN Rash Pantoprazole Sodium 40 mg 08/07/24 09:00 08/22/24 09:18 Pantoprazole 40 Mg Tablet PO 40 mg Q12HR NICOLE Administration Polyethylene Glycol 17 gm 08/14/24 13:40 Polyethylene Glycol 3350 17 Gm Powd.Pack PO QAM PRN Constipation Venlafaxine HCl 75 mg 08/07/24 09:00 08/22/24 09:17 Venlafaxine Hcl 75 Mg Tablet BY MOUTH 75 mg Q12HR NICOLE Administration Venlafaxine HCl 50 mg 08/07/24 09:00 08/22/24 09:15 Venlafaxine Hcl 25 Mg Tablet BY MOUTH 50 mg Q12HR NICOLE Administration Vitamin B Complex 1 cap 08/07/24 09:00 08/22/24 09:15 Vitamin B Complex Capsule PO 1 cap DAILY [facility] Administration Radiology Results: ITS Impressions Chest CT 08/06/24 15:17 IMPRESSION: Moderate interstitial pulmonary edema. Trace bilateral pleural effusions. Renal Ultrasound 08/09/24 13:35 IMPRESSION: 1. Normal kidneys. No hydronephrosis. Chest X-Ray 08/11/24 13:18 IMPRESSION: 1. Airspace opacities in the lower lung zones with worsening on the left, consistent with atelectasis versus pneumonia. 2. Worsened small pleural effusions. Head CT 08/13/24 20:44 IMPRESSION: 1. Normal aging brain. Labs Labs: Laboratory Results - last 24 hr 08/21/24 08/21/24 08/21/24 11:17 13:46 16:21 WBC RBC Hgb Hct MCV MCH MCHC RDW Plt Count MPV Immature Gran % (Auto) Neut % (Auto) Lymph % (Auto) [place] % (Auto) Eos % (Auto) Baso % (Auto) Lymph # (Auto) [place] # (Auto) Eos # (Auto) Baso # (Auto) Abs Immat Gran (auto) Absolute Neuts (auto) Absolute Nucleated RBC Nucleated RBC % Platelet Estimate Anisocytosis Ovalocytes Schistocytes Sodium Potassium Chloride Carbon Dioxide Anion Gap BUN Creatinine Estim Creat Clear Calc Estimated GFR Glucose POC Capillary Glucose 264 H 309 H 337 H Calcium Total Bilirubin AST ALT Alkaline Phosphatase Total Protein Albumin 08/21/24 08/22/24 08/22/24 19:57 06:23 07:26 WBC 10.8 H RBC 3.77 L Hgb 10.0 L Hct 34.3 L MCV 91.0 MCH 26.5 MCHC 29.2 L RDW 17.9 H Plt Count 316 MPV 10.0 Immature Gran % (Auto) 0.3 Neut % (Auto) 73.2 H Lymph % (Auto) 14.5 L [place] % (Auto) 8.0 Eos % (Auto) 3.4 Baso % (Auto) 0.6 Lymph # (Auto) 1.57 [place] # (Auto) 0.9 H Eos # (Auto) 0.4 H Baso # (Auto) 0.1 Abs Immat Gran (auto) 0.03 Absolute Neuts (auto) 7.9 H Absolute Nucleated RBC 0.000 Nucleated RBC % 0.0 Platelet Estimate Adequate Anisocytosis 1+ Ovalocytes 1+ Schistocytes None seen Sodium 140 Potassium 3.3 L Chloride 99 Carbon Dioxide 34 H Anion Gap 7 BUN 34 H Creatinine 2.20 H Estim Creat Clear Calc 24 Estimated GFR 22 L Glucose 134 H POC Capillary Glucose 251 H 139 H Calcium 9.3 Total Bilirubin 0.4 AST 18 ALT 17 Alkaline Phosphatase 122 Total Protein 7.0 Albumin 3.6 Quality VTE Prophylaxis VTE prophylaxis: pharmacologic ordered (on apixaban)
[2024-08-22] MEDS: POTASSIUM CHLORIDE 20 MEQ ER TABLET 40 MEQ PO (09:38)
--- NOTE | 2024-08-22 10:05 | P.PNCA_ITS ---
Progress Note: A&P Assessment and Plan (1) Acute on chronic diastolic heart failure: Code(s): I50.33 - Acute on chronic diastolic (congestive) heart failure Status: Acute (2) Atrial fibrillation: Qualifiers: Atrial fibrillation type: unspecified Qualified Code(s): I48.91 - Unspecified atrial fibrillation Code(s): I48.91 - Unspecified atrial fibrillation Status: Acute Plan 78-year-old woman with CAD status post PCI, chronic diastolic heart failure, paroxysmal atrial fibrillation, pulmonary hypertension, ANDREA on CPAP, CKD stage 4, diabetes type 2, and hypertension/hyperlipidemia presented with several days of worsening shortness of breath Chronic diastolic heart failure -she appears euvolemic on her home dose of Bumex -renal function is stable Paroxysmal atrial fibrillation -her rates appear much better controlled today -will increase her Lopressor to 100 mg p.o. b.i.d. -will consolidate her diltiazem to 120 mg p.o. daily -her amiodarone was discontinued -continue Eliquis Hypertension -continue Isordil Most likely discharge tomorrow if heart rate continues to improve. She will need physical therapy Subjective Date/time seen: 08/22/24 10:05 Interval history: She denies any chest pain, palpitations, and shortness of breath. She states that her shortness of breath has significantly improved. Her lower extremity swellings has also significantly improved. Review of Systems Cardiovascular: Cardiovascular: Reports as per HPI Respiratory: Respiratory: Reports as per HPI Exam Const: General: comfortable HENMT: Mouth: Yes moist mucous membranes Eyes: EOM: EOMs intact bilaterally Neck: Neck: no JVD Resp: Effort & Inspection: normal respiratory effort Auscultation: clear to auscultation bilaterally Cardio: Rate: tachycardic Rhythm: abnormal rhythm GI: GI Palp: Yes Soft to palpation Neuro: Speech: normal speech Extrem: General: no edema Objective Data Vital Signs Vital Signs: Vital Signs - 24 hr 08/21/24 11:52 08/21/24 12:00 08/21/24 14:00 Temperature 36.2 C L Pulse Rate 99 95 91 Respiratory Rate 20 Blood Pressure 111/75 Pulse Oximetry 93 08/21/24 16:00 08/21/24 18:36 08/21/24 20:00 Temperature Pulse Rate 86 94 100 Respiratory Rate Blood Pressure Pulse Oximetry 08/21/24 20:33 12/16/24 00:00 08/22/24 01:04 Temperature 36.1 C L Pulse Rate 80 109 H 107 H Respiratory Rate 20 Blood Pressure 144/66 H Pulse Oximetry 98 08/22/24 04:00 08/22/24 05:28 Temperature 36.4 C Pulse Rate 98 73 Respiratory Rate 20 Blood Pressure 107/70 Pulse Oximetry 98 Intake/Output Intake/Output: Intake & Output 08/19/24 08/20/24 08/21/24 08/22/24 23:59 23:59 23:59 23:59 Intake Total 640 0 80 100 Output Total 1325 1250 775 250 [facility] [phone] Meds/Results Medications: Active Medications Generic Name Dose Route Start Last Admin Trade Name Freq PRN Reason Stop Dose Admin Acetaminophen 650 mg 08/06/24 22:10 08/20/24 11:14 Acetaminophen 325 Mg Tablet PO 650 mg Q6H PRN Administration Mild Pain (1-3) or Fever Allopurinol 100 mg 08/07/24 09:00 08/22/24 09:17 Allopurinol 100 Mg Tablet PO 100 mg DAILY NICOLE Administration Apixaban 5 mg 08/06/24 21:20 08/22/24 09:12 Apixaban 5 Mg Tablet PO 5 mg Q12HR NICOLE Administration Bumetanide 1 mg 08/21/24 09:00 08/22/24 09:14 Bumetanide 1 Mg Tablet PO 1 mg DAILY NICOLE Administration Bupropion HCl 150 mg 08/07/24 09:00 08/22/24 09:17 Bupropion Hcl Xl (24 Hr) 150 Mg Tabcr PO 150 mg DAILY NICOLE Administration Buspirone HCl 15 mg 08/07/24 09:00 08/22/24 09:14 Buspirone Hcl 5 Mg Tablet PO 15 mg DAILY NICOLE Administration Calcium Carbonate 500 mg 08/07/24 09:00 08/22/24 09:15 Calcium/Vitamin D 500 Mg/5 Mcg (200 I.U.) Tablet PO 500 mg QAM NICOLE Administration Dextrose 12.5 gm 08/06/24 22:10 Dextrose 50% 25 Gm/50 Ml Syringe IV PUSH PRN PRN Hypoglycemia Protocol Diltiazem HCl 120 mg 08/23/24 09:00 Diltiazem Hcl Cd 120 Mg Cap.24hr PO QAM NICOLE Divalproex Sodium 500 mg 08/06/24 21:50 08/21/24 21:21 Divalproex Sodium Er 500 Mg Tab.24h PO 500 mg HS NICOLE Administration Docusate Sodium 100 mg 08/14/24 13:40 Docusate Sodium 100 Mg Capsule PO Q12H PRN Constipation Epoetin Ajit-epbx 10,000 units 08/13/24 09:00 08/20/24 10:28 Epoetin Ajit-Epbx 10,000 Units/Ml Vial SUB-Q 10,000 units TUTHSA@09 NICOLE Administration Famotidine 20 mg 08/06/24 21:20 08/21/24 21:21 Famotidine 20 Mg Tablet PO 20 mg HS [facility] Administration Ferrous Sulfate 142 mg 08/08/24 08:00 08/22/24 09:13 Ferrous Sulfate Dried 142 Mg Tabcr PO 142 mg DAILY@0800 NICOLE Administration Glucagon 1 mg 08/06/24 22:10 Glucagon For Inj 1 Mg Vial IM PRN PRN Hypoglycemia Protocol Glucose 15 gm 08/06/24 22:10 Glucose Oral Gel 15 Gm Of Glucse In 37.5 Gm Tube PO PRN PRN Hypoglycemia Protocol Dextrose 1,000 mls @ 100 mls/hr 08/06/24 22:10 Dextrose 5% 1,000 Ml IVPB PRN PRN Hypoglycemia Protocol Insulin Aspart 3 - 6 units 08/07/24 08:00 08/22/24 07:45 Insulin Aspart (*Bkc) 100 Units/Ml SUB-Q Not Given TIDWM [facility] Protocol Insulin Aspart 1 - 3 units 08/07/24 21:00 08/21/24 21:30 Insulin Aspart (*Bkc) 100 Units/Ml SUB-Q 2 units HS [facility] Administration Protocol Insulin Aspart 4 units 08/21/24 12:00 08/22/24 07:47 Insulin Aspart (*Bkc) 100 Units/Ml SUB-Q Not Given TIDWM [facility] Insulin Glargine 15 units 08/18/24 08:46 08/22/24 07:48 Insulin Glargine (*Bkc) 100 Units/Ml SUB-Q Not Given DAILY [facility] Isosorbide Dinitrate 5 mg 08/09/24 21:00 08/22/24 09:12 Isosorbide Dinitrate 5 Mg Tablet PO 5 mg Q12HR NICOLE Administration Levothyroxine Sodium 100 mcg 08/08/24 06:30 08/22/24 06:04 Levothyroxine Sodium 100 Mcg Tablet PO Not Given DAILY@0630 [facility] Memantine 10 mg 08/06/24 21:15 08/22/24 09:17 Memantine 10 Mg Tablet PO 10 mg Q12HR NICOLE Administration Metoprolol Tartrate 5 mg 08/19/24 14:46 Metoprolol Tartrate Inj 5 Mg/5 Ml Vial IV PUSH Q2H PRN Tachycardia Metoprolol Tartrate 100 mg 08/22/24 21:00 Metoprolol Tartrate 50 Mg Tab PO Q12HR [facility] Multivitamins/Minerals 1 tablet 08/07/24 09:00 08/22/24 09:17 Opti-Gen Tab PO 1 tablet Q12HR [facility] Administration Mupirocin 1 applic 08/07/24 09:00 08/22/24 09:19 Mupirocin 2% Oint 22 Gm Tube TOPICAL 1 applic BID NICOLE Administration Nystatin 1 applic 08/06/24 21:12 Nystatin Ointment 15 Gm Tube TOPICAL BID PRN Rash Pantoprazole Sodium 40 mg 08/07/24 09:00 08/22/24 09:18 Pantoprazole 40 Mg Tablet PO 40 mg Q12HR NICOLE Administration Polyethylene Glycol 17 gm 08/14/24 13:40 Polyethylene Glycol 3350 17 Gm Powd.Pack PO QAM PRN Constipation Venlafaxine HCl 75 mg 08/07/24 09:00 08/22/24 09:17 Venlafaxine Hcl 75 Mg Tablet BY MOUTH 75 mg Q12HR NICOLE Administration Venlafaxine HCl 50 mg 08/07/24 09:00 08/22/24 09:15 Venlafaxine Hcl 25 Mg Tablet BY MOUTH 50 mg Q12HR NICOLE Administration Vitamin B Complex 1 cap 08/07/24 09:00 08/22/24 09:15 Vitamin B Complex Capsule PO 1 cap DAILY NICOLE Administration Radiology Results: ITS Impressions Chest CT 08/06/24 15:17 IMPRESSION: Moderate interstitial pulmonary edema. Trace bilateral pleural effusions. Renal Ultrasound 08/09/24 13:35 IMPRESSION: 1. Normal kidneys. No hydronephrosis. Chest X-Ray 08/11/24 13:18 IMPRESSION: 1. Airspace opacities in the lower lung zones with worsening on the left, consistent with atelectasis versus pneumonia. 2. Worsened small pleural effusions. Head CT 08/13/24 20:44 IMPRESSION: 1. Normal aging brain. Labs Labs: Laboratory Results - last 24 hr 08/21/24 08/21/24 08/21/24 11:17 13:46 16:21 WBC RBC Hgb Hct MCV MCH MCHC RDW Plt Count MPV Immature Gran % (Auto) Neut % (Auto) Lymph % (Auto) [place] % (Auto) Eos % (Auto) Baso % (Auto) Lymph # (Auto) [place] # (Auto) Eos # (Auto) Baso # (Auto) Abs Immat Gran (auto) Absolute Neuts (auto) Absolute Nucleated RBC Nucleated RBC % Platelet Estimate Anisocytosis Ovalocytes Schistocytes Sodium Potassium Chloride Carbon Dioxide Anion Gap BUN Creatinine Estim Creat Clear Calc Estimated GFR Glucose POC Capillary Glucose 264 H 309 H 337 H Calcium Total Bilirubin AST ALT Alkaline Phosphatase Total Protein Albumin 08/21/24 08/22/24 08/22/24 19:57 06:23 07:26 WBC 10.8 H RBC 3.77 L Hgb 10.0 L Hct 34.3 L MCV 91.0 MCH 26.5 MCHC 29.2 L RDW 17.9 H Plt Count 316 MPV 10.0 Immature Gran % (Auto) 0.3 Neut % (Auto) 73.2 H Lymph % (Auto) 14.5 L [place] % (Auto) 8.0 Eos % (Auto) 3.4 Baso % (Auto) 0.6 Lymph # (Auto) 1.57 [place] # (Auto) 0.9 H Eos # (Auto) 0.4 H Baso # (Auto) 0.1 Abs Immat Gran (auto) 0.03 Absolute Neuts (auto) 7.9 H Absolute Nucleated RBC 0.000 Nucleated RBC % 0.0 Platelet Estimate Adequate Anisocytosis 1+ Ovalocytes 1+ Schistocytes None seen Sodium 140 Potassium 3.3 L Chloride 99 Carbon Dioxide 34 H Anion Gap 7 BUN 34 H Creatinine 2.20 H Estim Creat Clear Calc 24 Estimated GFR 22 L Glucose 134 H POC Capillary Glucose 251 H 139 H Calcium 9.3 Total Bilirubin 0.4 AST 18 ALT 17 Alkaline Phosphatase 122 Total Protein 7.0 Albumin 3.6
[2024-08-22 11:35] LABS: Glucose Point of Care 204 mg/dl (65-105)
[2024-08-22] MEDS: INSULIN ASPART (*BKC) 100 UNITS/ML SUB-Q ×3 (12:28→16:49)
[2024-08-22 16:50] LABS: Glucose Point of Care 190 mg/dl (65-105)
[2024-08-22] MEDS: METOPROLOL TARTRATE 50 MG TAB 100 MG PO (20:18)
[2024-08-22] MEDS: DIVALPROEX SODIUM ER 500 MG TAB.24H PO (20:18)
[2024-08-22] MEDS: FAMOTIDINE 20 MG TABLET PO (20:18)
[2024-08-22 21:24] LABS: Glucose Point of Care 143 mg/dl (65-105)
[2024-08-23] VITALS (12 sets, daily range): BP systolic 97–129; BP diastolic 53–88; PULSE 78–131; RESP 13–18; TEMP 36.3–36.8; O2SAT 92–99
[2024-08-23 00:01] LABS: Glucose Point of Care 161 mg/dl (65-105)
[2024-08-23] MEDS: LEVOTHYROXINE SODIUM 100 MCG TABLET PO (05:46)
[2024-08-23 06:04] LABS: Basophils Absolute Auto 0.1 K/mm3 (0.0-0.1); Basophils Percent Auto 0.6 % (0.2-1.2); Eosinophils Absolute Auto 0.2 K/mm3 (0-0.3); Eosinophils Percent Auto 1.4 % (0-4.4); Hematocrit 35.3 % (37.0-47.0); Hemoglobin 10.4 g/dL (12.0-15.0); Immature Granulocyte Absolute 0.07 K/mm3 (0.00-0.031); Immature Granulocyte Percent A 0.7 % (0-0.5); Lymphocytes Absolute Auto 1.58 K/mm3 (0.9-3.2); Lymphocytes Percent Auto 14.7 % (18.3-44.2); Mean Corpuscular HGB Conc 29.5 g/dl (32-36); Mean Corpuscular Hemoglobin 26.7 pg (26-34); Mean Corpuscular Volume 90.5 fl (80-100); Monocytes Absolute Auto 1.1 K/mm3 (0.1-0.6); Monocytes Percent Auto 10.5 % (2.6-8.5); Neutrophils Absolute Auto 7.8 K/mm3 (1.3-6.7); Neutrophils Percent Auto 72.1 % (45.5-73.1); Platelet Count Result 340 k/mm3 (150-375); Red Cell Distribution Width 18.6 % (11.5-14.5); White Blood Count 10.8 K/mm3 (4.5-10.0)
[2024-08-23 06:15] LABS: Alanine Aminotransferase 18 U/L (6-35); Albumin Level 3.6 g/dL (3.5-5.1); Alkaline Phosphatase 125 U/L (38-126); Anion Gap 8 mmol/L (4-12); Aspartate Amino Transferase 23 U/L (14-36); Bilirubin,Total 0.6 mg/dL (0.2-1.3); Blood Urea Nitrogen 39 mg/dL (7-17); Calcium 9.4 mg/dL (8.4-10.2); Carbon Dioxide 32 mmol/L (22-30); Chloride 100 mmol/L (98-107); Estimated CRCL calculation 22 ml/min; Estimated Glomerular Filt Rate 20; Glucose 168 mg/dL (65-110); Potassium 4.1 mmol/L (3.4-5.0); Sodium 140 mmol/L (137-145)
[2024-08-23 06:45] LABS: Anisocytosis 1+; Platelet Estimate Adequate (Adequate)
[2024-08-23 06:46] LABS: Schistocytes None Seen
[2024-08-23 07:39] LABS: Glucose Point of Care 163 mg/dl (65-105)
[2024-08-23] MEDS: ISOSORBIDE DINITRATE 5 MG TABLET PO ×2 (08:16→21:15)
[2024-08-23] MEDS: allopurinoL 100 MG TABLET PO (08:16)
[2024-08-23] MEDS: busPIRone HCL 5 MG TABLET 15 MG PO (08:16)
[2024-08-23] MEDS: PANTOPRAZOLE 40 MG TABLET PO ×2 (08:16→21:15)
[2024-08-23] MEDS: APIXABAN 5 MG TABLET PO ×2 (08:16→21:15)
[2024-08-23] MEDS: buPROPion HCL XL (24 HR) 150 MG TABCR PO (08:16)
[2024-08-23] MEDS: VITAMIN B COMPLEX CAPSULE 1 CAP PO (08:16)
[2024-08-23] MEDS: MEMANTINE 10 MG TABLET PO ×2 (08:16→21:15)
[2024-08-23] MEDS: FERROUS SULFATE DRIED 142 MG TABCR PO (08:17)
[2024-08-23] MEDS: VENLAFAXINE HCL 75 MG TABLET BY MOUTH ×2 (08:17→21:15)
[2024-08-23] MEDS: CALCIUM/VITAMIN D 500 MG/5 MCG (200 I.U.) TABLET PO (08:17)
[2024-08-23] MEDS: METOPROLOL TARTRATE 50 MG TAB 100 MG PO ×2 (08:17→21:14)
[2024-08-23] MEDS: BUMETANIDE 1 MG TABLET PO (08:17)
[2024-08-23] MEDS: OPTI-GEN TAB 1 TABLET PO ×2 (08:17→21:15)
[2024-08-23] MEDS: VENLAFAXINE HCL 25 MG TABLET 50 MG BY MOUTH ×2 (08:17→21:15)
[2024-08-23] MEDS: dilTIAZem HCL CD 120 MG CAP.24HR PO (08:17)
[2024-08-23] MEDS: MUPIROCIN 2% OINT 22 GM TUBE 1 APPLIC TOPICAL ×2 (08:21→17:25)
[2024-08-23] MEDS: INSULIN GLARGINE (*BKC) 100 UNITS/ML 15 UNITS SUB-Q (08:24)
[2024-08-23] MEDS: INSULIN ASPART (*BKC) 100 UNITS/ML SUB-Q ×3 (08:25→17:24)
[2024-08-23] MEDS: EPOETIN ALFA-EPBX 10,000 UNITS/ML VIAL 10000 UNITS SUB-Q (08:27)
--- NOTE | 2024-08-23 08:27 | P.PNIM_ITS ---
Progress Note: A&P Assessment and Plan (1) Altered mental status: Qualifiers: Altered mental status type: unspecified Qualified Code(s): R41.82 - Altered mental status, unspecified Code(s): R41.82 - Altered mental status, unspecified Status: Resolved Assessment and Plan: Patient may have underlying dementia with superimposed metabolic encephalopathy as the cause for her problem ua was collected,chest xray done to rule out any infectious causes - son states that pt has problems with normal activities like eating-and has episodes of confusion, ?blanking out she is pretty much at her base level with some episodes of forgetfulness. - head ct unremarkable -appreciate neurology recom. Phil stopped EEG shows diffuse background slowing consistent with a generalized encephalopathy. Continue the antidepressants as before. Namenda which can be continued. Patient is AOx3 (person, place, month). Following commands. (2) Acute respiratory failure with hypoxia: Code(s): J96.01 - Acute respiratory failure with hypoxia Status: Acute Assessment and Plan: Per chart review, according to EMS her SpO2 was 84% on room air and she was placed on a non-rebreather at 15 L with some improvement. Baseline RA. Likely secondary to CHF exacerbation. - Back to baseline RA - Wean as tolerated for SpO2 > 90 08/11- will order chest xray since oxygen requirements increased Chest XR: atelectasis vs pneumonia- will treat as pneumonia in setting increased oxygen demands and confusion. Remains on room air (3) Paroxysmal atrial fibrillation: Code(s): I48.0 - Paroxysmal atrial fibrillation Status: Chronic Assessment and Plan: - Current home medication: Amiodarone 200 mg daily , Coreg 6.25 mg BID, Eliquis 5 mg BID EKG 08/16: Afib RVR HR 121 Patient was noted to be in afib RVR with HR 121 as seen on EKG. Overnight MD ordered amiodarone 200 mg x1 at that time. Patient remains in afib RVR with HR 110-130s. Asymptomatic. Attempted to call Dr. Griffith and left a voicemail. Patient coreg increased to 12.5 mg BID on 08/17. 08/18: Patient hypotension and remains in afib RVR HR 120-130s, changed coreg to metoprolol given less of an impact on BP. Discussed with cardiology [employer] and will start on metoprolol 25 mg q6H. Monitor. 08/19: HR remains in the 110-120s occasionally 130s. Patient asymptomatic. Cardiology evaluated patient Continue metoprolol 25 mg q6H Discontinue amiodarone and started on diltiazem 30 mg q6H Monitor 08/20: HR remains in the 110-120s occasionally 130s on the current oral medications. Call made to Dr. Griffith and patient given IV digoxin x1. Returned to review tele and she was rate controlled in the 90s. 08/21: HR is intermittently rate controlled on current regimen. Cardiology plans for MARKY/CV tomorrow. 08/22: Cardiology no longer planning for a MARKY/CV as patients rates appear much better controlled today. Metoprolol 100 mg BID and diltiazem 120 mg daily Monitor 08/23: Patient remains in afib RVR with HR 110-120s consistently. Spoke with Dr. Alfonso and will give patient IV digoxin x1. Continue the current PO medications. Patient made NPO at midnight for possible MARKY/CV tomorrow. (4) Pneumonia: Qualifiers: Laterality: bilateral Lung location: unspecified part of lung Pneumonia type: due to unspecified organism Qualified Code(s): J18.9 - Pneumonia, unspecified organism Code(s): J18.9 - Pneumonia, unspecified organism Status: Resolved Assessment and Plan: CXR 08/11: 1. Airspace opacities in the lower lung zones with worsening on the left, consistent with atelectasis versus pneumonia. 2. Worsened small pleural effusions. - started on doxy and augmentin course to be completed on 08/19 - Viral PCR: negative for Flu/COVID/RSV - weaned back to baseline room air - Monitor vital signs, I&Os, neuro status and patient is a fall risk - Follow WBC, serum electrolytes, temperature curves and cultures Resolved. (5) Urinary tract infection: Code(s): N39.0 - Urinary tract infection, site not specified Status: Acute Assessment and Plan: ua was collected 08/11 due to increased confusion. start cefepime to cover uti/pneumonia urine culture: klebsiella pneumoniae pansensitive switched to PO antibiotics Augmentin- last dose 08/18 9 pm Resolved. (6) Acute kidney injury superimposed on chronic kidney disease: Code(s): N17.9 - Acute kidney failure, unspecified; N18.9 - Chronic kidney disease, unspecified Status: Acute Assessment and Plan: Per nephrology note on 07/29, baseline creatinine fluctuates to extremes -- anywhere from 1.6 - 2.4mg/dl (in the last year) - BUN/Cr 39/2.4 on am labs - Worsening Cr likely related to patients ongoing diuresis for CHF exacerbation (Bumex made daily instead of BID) vs overcontrol of her BP per nephrology note consider having BP range closer to 150s systolic - Monitor renal function and I/O - Avoid nephrotoxic medications - Renally dose medications - Nephrology consulted, appreciate recommendations (7) Type 2 diabetes mellitus with hyperglycemia, with long-term current use of insulin: Code(s): E11.65 - Type 2 diabetes mellitus with hyperglycemia; Z79.4 - custodial (current) use of insulin Status: Chronic Assessment and Plan: home insulin toujeo- 45 units at hs, ss14 units of lispro Continue basal insulin. Initiate sliding scale insulin, Accu-Cheks, and hypoglycemic protocol. will decrease lantus this am- 20 units (from 40) as few lower readings in am, protein snacks at hs-monitor 08/14- bs low this am- will hold lantus until PO intake improves 08/15 hold insulin 08/21 hyperglycemic - Continue Lantus dose to 15 units, started 4 units lispro TIDWM. Monitor as intake improved. 08/23 blood glucose levels better controlled today, continue to monitor (8) Anemia: Qualifiers: Anemia type: unspecified type Qualified Code(s): D64.9 - Anemia, unspecified Code(s): D64.9 - Anemia, unspecified Status: Acute Assessment and Plan: Iron low -started on iron supplementation - f/u with pcp in 2-3 month for recheck (9) Hypothyroidism (acquired): Code(s): E03.9 - Hypothyroidism, unspecified Status: Acute Assessment [place]: [place] [address] currently on 75 mcg levothyroxine Will increase to 100 mcg on 08/07 and will need TSH recheck in 6-8 weeks as an outtpt- mid to end of October (10) Coronary artery disease: Code(s): I25.10 - Atherosclerotic heart disease of [place] coronary artery without angina pectoris Status: Acute Assessment and Plan: Chronic, continue home medications. (11) Obstructive sleep apnea on CPAP: Code(s): G47.33 - Obstructive sleep apnea (adult) (pediatric); Z99.89 - Dependence on other enabling machines and devices Status: Chronic Assessment and Plan: Does not use CPAP at home. ABG ordered. Time Spent With Patient Time with patient: 25 - 35 minutes Subjective Date/time seen: 08/23/24 08:27 Interval history: 78-year-old female with coronary artery disease and history of stents, paroxysmal atrial fibrillation on anticoagulation, diastolic congestive heart failure, pulmonary hypertension, obstructive sleep apnea on CPAP, hypertension, hyperlipidemia, chronic kidney disease, anemia, type 2 diabetes mellitus, memory impairment, C difficile diarrhea, depression, suicide attempt in April 2024, and other comorbidities who presented to the emergency department via EMS from home for evaluation of chest pain and shortness of breath. Patient is pleasant lying comfortably in bed. She is AOx3 (self, place, month). She has no complaints denying chest pain, shortness of breath, nauesa/vomiting and abdominal pain. Patient remains in afib RVR with HR 110-120s consistently. Spoke with Dr. Alfonso and will give patient IV digoxin x1. Continue the current PO medications. Patient made NPO at midnight for possible MARKY/CV tomorrow. Review of Systems Review of Systems: 12 systems were reviewed and are negativ e except for as per HPI. All systems reviewed & are unremarkable except as noted in HPI and below Exam Narrative: AF HR 83 RR 16 Spo2 92 BP 129/88 General: female in no acute respiratory distress who is nontoxic appearing, sitting up in bed HEENT: Normocephalic. Atraumatic. Extraocular movement intact. Sclera clear and anicteric. No facial asymmetry. Chest: Lungs are clear to slightly diminished bilaterally. No wheezes or crackles. CV: Heart was irregularly irregular rhythm and normal rate. S1-S2. No murmurs, gallops, or rubs. Abd: Abdomen was soft. Nontender. Nondistended. Positive bowel sounds. No organomegaly or masses. Ext: No clubbing, cyanosis, or edema. 2+ DP pulses bilaterally. Neuro: Patient is alert and oriented x3 (self, place, month). Follows commands. Speech is clear. Strength is symmetrical in pushes and pulls. Objective Data Vital Signs Vital Signs: Vital Signs - 24 hr 08/22/24 10:19 08/22/24 12:00 08/22/24 13:30 Temperature 97.5 F L Pulse Rate 96 110 H Respiratory Rate 14 Blood Pressure 126/89 Pulse Oximetry 96 Oxygen Delivery Room Air 08/22/24 14:00 08/22/24 14:00 08/22/24 14:05 Temperature 97.7 F 97.7 F Pulse Rate 89 89 104 H Respiratory Rate 14 14 Blood Pressure 126/87 126/87 130/81 Pulse Oximetry 94 94 Oxygen Delivery 08/22/24 14:22 08/22/24 16:00 08/22/24 20:00 Temperature Pulse Rate 105 H 124 H Respiratory Rate Blood Pressure Pulse Oximetry Oxygen Delivery Room Air 08/22/24 20:18 08/22/24 21:30 08/23/24 00:00 Temperature 98.6 F Pulse Rate 80 120 H 122 H Respiratory Rate 18 Blood Pressure 106/77 Pulse Oximetry 100 Oxygen Delivery 08/23/24 04:00 08/23/24 06:00 08/23/24 08:17 Temperature 98.2 F Pulse Rate 121 H 120 H 128 H Respiratory Rate 18 Blood Pressure 97/53 L Pulse Oximetry 98 Oxygen Delivery Intake/Output Intake/Output: Intake & Output 08/20/24 08/21/24 08/22/24 08/23/24 23:59 23:59 23:59 23:59 Intake Total 0 80 100 0 Output Total 1250 775 525 100 [facility] -1250 -695 -425 -100 Meds/Results Medications: Active Medications Generic Name Dose Route Start Last Admin Trade Name Freq PRN Reason Stop Dose Admin Acetaminophen 650 mg 08/06/24 22:10 08/20/24 11:14 Acetaminophen 325 Mg Tablet PO 650 mg Q6H PRN Administration Mild Pain (1-3) or Fever Allopurinol 100 mg 08/07/24 09:00 08/23/24 08:16 Allopurinol 100 Mg Tablet PO 100 mg DAILY NICOLE Administration Apixaban 5 mg 08/06/24 21:20 08/23/24 08:16 Apixaban 5 Mg Tablet PO 5 mg Q12HR NICOLE Administration Bumetanide 1 mg 08/21/24 09:00 08/23/24 08:17 Bumetanide 1 Mg Tablet PO 1 mg DAILY NICOLE Administration Bupropion HCl 150 mg 08/07/24 09:00 08/23/24 08:16 Bupropion Hcl Xl (24 Hr) 150 Mg Tabcr PO 150 mg DAILY NICOLE Administration Buspirone HCl 15 mg 08/07/24 09:00 08/23/24 08:16 Buspirone Hcl 5 Mg Tablet PO 15 mg DAILY NICOLE Administration Calcium Carbonate 500 mg 08/07/24 09:00 08/23/24 08:17 Calcium/Vitamin D 500 Mg/5 Mcg (200 I.U.) Tablet PO 500 mg QAM NICOLE Administration Dextrose 12.5 gm 08/06/24 22:10 Dextrose 50% 25 Gm/50 Ml Syringe IV PUSH PRN PRN Hypoglycemia Protocol Diltiazem HCl 120 mg 08/23/24 09:00 08/23/24 08:17 Diltiazem Hcl Cd 120 Mg Cap.24hr PO 120 mg QAM NICOLE Administration Divalproex Sodium 500 mg 08/06/24 21:50 08/22/24 20:18 Divalproex Sodium Er 500 Mg Tab.24h PO 500 mg HS NICOLE Administration Docusate Sodium 100 mg 08/14/24 13:40 Docusate Sodium 100 Mg Capsule PO Q12H PRN Constipation Epoetin Ajit-epbx 10,000 units 08/13/24 09:00 08/20/24 10:28 Epoetin Ajit-Epbx 10,000 Units/Ml Vial SUB-Q 10,000 units TUTHSA@09 NICOLE Administration Famotidine 20 mg 08/06/24 21:20 08/22/24 20:18 Famotidine 20 Mg Tablet PO 20 mg HS NICOLE Administration Ferrous Sulfate 142 mg 08/08/24 08:00 08/23/24 08:17 Ferrous Sulfate Dried 142 Mg Tabcr PO 142 mg DAILY@0800 NICOLE Administration Glucagon 1 mg 08/06/24 22:10 Glucagon For Inj 1 Mg Vial IM PRN PRN Hypoglycemia Protocol Glucose 15 gm 08/06/24 22:10 Glucose Oral Gel 15 Gm Of Glucse In 37.5 Gm Tube PO PRN PRN Hypoglycemia Protocol Dextrose 1,000 mls @ 100 mls/hr 08/06/24 22:10 Dextrose 5% 1,000 Ml IVPB PRN PRN Hypoglycemia Protocol Insulin Aspart 3 - 6 units 08/07/24 08:00 08/23/24 08:03 Insulin Aspart (*Bkc) 100 Units/Ml SUB-Q Not Given TIDWM [facility] Protocol Insulin Aspart 1 - 3 units 08/07/24 21:00 08/22/24 20:20 Insulin Aspart (*Bkc) 100 Units/Ml SUB-Q Not Given HS [facility] Protocol Insulin Aspart 4 units 08/21/24 12:00 08/23/24 08:25 Insulin Aspart (*Bkc) 100 Units/Ml SUB-Q 4 units TIDWM NICOLE Administration Insulin Glargine 15 units 08/18/24 08:46 08/23/24 08:24 Insulin Glargine (*Bkc) 100 Units/Ml SUB-Q 15 units DAILY NICOLE Administration Isosorbide Dinitrate 5 mg 08/09/24 21:00 08/23/24 08:16 Isosorbide Dinitrate 5 Mg Tablet PO 5 mg Q12HR NICOLE Administration Levothyroxine Sodium 100 mcg 08/08/24 06:30 08/23/24 05:46 Levothyroxine Sodium 100 Mcg Tablet PO 100 mcg DAILY@0630 NICOLE Administration Memantine 10 mg 08/06/24 21:15 08/23/24 08:16 Memantine 10 Mg Tablet PO 10 mg Q12HR NICOLE Administration Metoprolol Tartrate 5 mg 08/19/24 14:46 Metoprolol Tartrate Inj 5 Mg/5 Ml Vial IV PUSH Q2H PRN Tachycardia Metoprolol Tartrate 100 mg 08/22/24 21:00 08/23/24 08:17 Metoprolol Tartrate 50 Mg Tab PO 100 mg Q12HR NICOLE Administration Multivitamins/Minerals 1 tablet 08/07/24 09:00 08/23/24 08:17 Opti-Gen Tab PO 1 tablet Q12HR NICOLE Administration Mupirocin 1 applic 08/07/24 09:00 08/23/24 08:21 Mupirocin 2% Oint 22 Gm Tube TOPICAL 1 applic BID NICOLE Administration Nystatin 1 applic 08/06/24 21:12 Nystatin Ointment 15 Gm Tube TOPICAL BID PRN Rash Pantoprazole Sodium 40 mg 08/07/24 09:00 08/23/24 08:16 Pantoprazole 40 Mg Tablet PO 40 mg Q12HR NICOLE Administration Polyethylene Glycol 17 gm 08/14/24 13:40 Polyethylene Glycol 3350 17 Gm Powd.Pack PO QAM PRN Constipation Venlafaxine HCl 75 mg 08/07/24 09:00 08/23/24 08:17 Venlafaxine Hcl 75 Mg Tablet BY MOUTH 75 mg Q12HR NICOLE Administration Venlafaxine HCl 50 mg 08/07/24 09:00 08/23/24 08:17 Venlafaxine Hcl 25 Mg Tablet BY MOUTH 50 mg Q12HR NICOLE Administration Vitamin B Complex 1 cap 08/07/24 09:00 08/23/24 08:16 Vitamin B Complex Capsule PO 1 cap DAILY NICOLE Administration Radiology Results: ITS Impressions Chest CT 08/06/24 15:17 IMPRESSION: Moderate interstitial pulmonary edema. Trace bilateral pleural effusions. Renal Ultrasound 08/09/24 13:35 IMPRESSION: 1. Normal kidneys. No hydronephrosis. Chest X-Ray 08/11/24 13:18 IMPRESSION: 1. Airspace opacities in the lower lung zones with worsening on the left, consistent with atelectasis versus pneumonia. 2. Worsened small pleural effusions. Head CT 08/13/24 20:44 IMPRESSION: 1. Normal aging brain. Labs Labs: Laboratory Results - last 24 hr 08/22/24 08/22/24 08/22/24 11:22 16:37 20:13 WBC RBC Hgb Hct MCV MCH MCHC RDW Plt Count MPV Immature Gran % (Auto) Neut % (Auto) Lymph % (Auto) [place] % (Auto) Eos % (Auto) Baso % (Auto) Lymph # (Auto) [place] # (Auto) Eos # (Auto) Baso # (Auto) Abs Immat Gran (auto) Absolute Neuts (auto) Absolute Nucleated RBC Nucleated RBC % Platelet Estimate Anisocytosis Schistocytes Sodium Potassium Chloride Carbon Dioxide Anion Gap BUN Creatinine Estim Creat Clear Calc Estimated GFR Glucose POC Capillary Glucose 204 H 190 H 143 H Calcium Total Bilirubin AST ALT Alkaline Phosphatase Total Protein Albumin 08/22/24 08/23/24 08/23/24 23:59 05:40 07:32 WBC 10.8 H RBC 3.90 L Hgb 10.4 L Hct 35.3 L MCV 90.5 MCH 26.7 MCHC 29.5 L RDW 18.6 H Plt Count 340 MPV 10.0 Immature Gran % (Auto) 0.7 H Neut % (Auto) 72.1 Lymph % (Auto) 14.7 L [place] % (Auto) 10.5 H Eos % (Auto) 1.4 Baso % (Auto) 0.6 Lymph # (Auto) 1.58 [place] # (Auto) 1.1 H Eos # (Auto) 0.2 Baso # (Auto) 0.1 Abs Immat Gran (auto) 0.07 H Absolute Neuts (auto) 7.8 H Absolute Nucleated RBC 0.000 Nucleated RBC % 0.0 Platelet Estimate Adequate Anisocytosis 1+ Schistocytes None seen Sodium 140 Potassium 4.1 Chloride 100 Carbon Dioxide 32 H Anion Gap 8 BUN 39 H Creatinine 2.40 H Estim Creat Clear Calc 22 Estimated GFR 20 L Glucose 168 H POC Capillary Glucose 161 H 163 H Calcium 9.4 Total Bilirubin 0.6 AST 23 ALT 18 Alkaline Phosphatase 125 Total Protein 7.0 Albumin 3.6 Quality VTE Prophylaxis VTE prophylaxis: pharmacologic ordered (on apixaban)
--- NOTE | 2024-08-23 09:55 | P.PNNP_ITS ---
Progress Note: A&P Assessment and Plan (1) ALBERTINA (acute kidney injury): Code(s): N17.9 - Acute kidney failure, unspecified Status: Acute Assessment and Plan: * stable if not resolved * elevated on admission (but close to what it was on last hospital discharge) * worsening noted during this hospitalization after admission * however, seems to have stabilized * holding diuretics on last hospitalization resulted in only mild improvement in renal function (and may have precipitated re-admission) * evaluation noted: * renal u/s normal * CPK slightly elevated (but not likely to affect kidney function) * urine electrolytes prerenal * UA negative for infection by culture * moderate proteinuria * follow trend of repeat labs and UOP (2) Chronic kidney disease, stage IV (severe): Code(s): N18.4 - Chronic kidney disease, stage 4 (severe) Status: Chronic Assessment and Plan: * baseline creatinine fluctuates to extremes -- anywhere from 1.6 - 2.4mg/dl (in the last year) * this causes her to fluctuate between CKD stage 3b and stage 4 * due to her hypertension, diabetes, obstructive sleep apnea, gout, diastolic heart failure + diuretics, and age-related change * this may be a situation where we have to accept a higher creatinine to maintain her volume status... (3) Acute on chronic diastolic heart failure: Code(s): I50.33 - Acute on chronic diastolic (congestive) heart failure Status: Acute Assessment and Plan: * improvement noted * as noted by presentation to the ER: * bilateral LE edema + SOB + orthopnea * BNP: 1560 * admission CXR with nterstitial prominence suggesting pneumonitis or pulmonary interstitial edema. Possible minimal pleural effusions * chest CT with moderate interstitial pulmonary edema and trace bilateral pleural effusions * was on IV diuretics * trial dose of metolazone x 3 days with reasonable response * transitioned to oral bumex * Cardiology following * follow respiratory status (4) Paroxysmal atrial fibrillation: Code(s): I48.0 - Paroxysmal atrial fibrillation Status: Chronic Assessment and Plan: * focusing on rate control strategy - has not been very successful * on anticoagulation * Cardiology following * noted plan for possible cardioversion tomorrow (5) Hypertension: Qualifiers: Hypertension type: unspecified Qualified Code(s): I10 - Essential (primary) hypertension Code(s): I10 - Essential (primary) hypertension Status: Chronic Assessment and Plan: * reasonable control at this time * follow trend of hemodynamics (6) Anemia: Qualifiers: Anemia type: unspecified type Qualified Code(s): D64.9 - Anemia, unspecified Code(s): D64.9 - Anemia, unspecified Status: Acute Assessment and Plan: * improved * partly related to CKD along with ALBERTINA and acute illness * Retacrit 3x/week while hospitalized * likely discontinue on discharge * PRBC transfusion per protocol * follow trend of H/H (7) Type 2 diabetes mellitus: Code(s): E11.9 - Type 2 diabetes mellitus without complications Status: Acute Assessment and Plan: * follow accu-cheks * glycemic control per hospitalists Will continue to follow intermittently. Subjective Date/time seen: 08/23/24 09:55 Interval history: Follow-up for acute kidney injury/acute renal failure on chronic kidney disease. Renal function/creatinine continues to remain relatively stable at this time; heart rate was better controlled yesterday but persistently tachycardic (afib with RVR) since yesterday evening; no apparent distress voiced at the time of my visit; mentation seems a tad better this morning. Exam 2 Narrative: General: elderly but WD/WN female in NAD Heart: IRRR, normal S1 and S2; no rub Lungs: clear anteriorly; decreased at bases Abdomen: soft, nontender, nondistended, positive bowel sounds Extremities: no cyanosis or clubbing; trace edema Skin: no rash Objective Data Vital Signs Vital Signs: Vital Signs Temp Pulse Resp BP Pulse Ox O2 Del Method 08/23/24 08:17 128 H 08/23/24 08:00 131 H 08/23/24 08:00 Room Air 08/23/24 06:00 98.2 F 120 H 18 97/53 L 98 08/23/24 04:00 121 H 08/23/24 00:00 122 H 08/22/24 21:30 98.6 F 120 H 18 106/77 100 08/22/24 20:18 80 08/22/24 20:00 124 H 08/22/24 16:00 105 H 08/22/24 14:22 Room Air 08/22/24 14:05 104 H 130/81 08/22/24 14:00 97.7 F 89 14 126/87 94 08/22/24 14:00 97.7 F 89 14 126/87 94 08/22/24 13:30 Room Air 08/22/24 12:00 110 H Intake/Output Intake/Output: Intake & Output 08/20/24 08/21/24 08/22/24 08/23/24 23:59 23:59 23:59 23:59 Intake Total 0 80 100 120 Output Total 1254 775 525 100 Balance -1250 -695 -425 20 Meds/Results Medications: Active Medications Generic Name Dose Route Start Last Admin Trade Name Freq PRN Reason Stop Dose Admin Acetaminophen 650 mg 08/06/24 22:10 08/20/24 11:14 Acetaminophen 325 Mg Tablet PO 650 mg Q6H PRN Administration Mild Pain (1-3) or Fever Allopurinol 100 mg 08/07/24 09:00 08/23/24 08:16 Allopurinol 100 Mg Tablet PO 100 mg DAILY NICOLE Administration Apixaban 5 mg 08/06/24 21:20 08/23/24 08:16 Apixaban 5 Mg Tablet PO 5 mg Q12HR NICOLE Administration Bumetanide 1 mg 08/21/24 09:00 08/23/24 08:17 Bumetanide 1 Mg Tablet PO 1 mg DAILY NICOLE Administration Bupropion HCl 150 mg 08/07/24 09:00 08/23/24 08:16 Bupropion Hcl Xl (24 Hr) 150 Mg Tabcr PO 150 mg DAILY NICOLE Administration Buspirone HCl 15 mg 08/07/24 09:00 08/23/24 08:16 Buspirone Hcl 5 Mg Tablet PO 15 mg DAILY NICOLE Administration Calcium Carbonate 500 mg 08/07/24 09:00 08/23/24 08:17 Calcium/Vitamin D 500 Mg/5 Mcg (200 I.U.) Tablet PO 500 mg QAM NICOLE Administration Dextrose 12.5 gm 08/06/24 22:10 Dextrose 50% 25 Gm/50 Ml Syringe IV PUSH PRN PRN Hypoglycemia Protocol Diltiazem HCl 120 mg 08/23/24 09:00 08/23/24 08:17 Diltiazem Hcl Cd 120 Mg Cap.24hr PO 120 mg QAM NICOLE Administration Divalproex Sodium 500 mg 08/06/24 21:50 08/22/24 20:18 Divalproex Sodium Er 500 Mg Tab.24h PO 500 mg HS NICOLE Administration Docusate Sodium 100 mg 08/14/24 13:40 Docusate Sodium 100 Mg Capsule PO Q12H PRN Constipation Epoetin Ajit-epbx 10,000 units 08/13/24 09:00 08/23/24 08:27 Epoetin Ajit-Epbx 10,000 Units/Ml Vial SUB-Q 10,000 units TUTHSA@09 NICOLE Administration Famotidine 20 mg 08/06/24 21:20 08/22/24 20:18 Famotidine 20 Mg Tablet PO 20 mg HS NICOLE Administration Ferrous Sulfate 142 mg 08/08/24 08:00 08/23/24 08:17 Ferrous Sulfate Dried 142 Mg Tabcr PO 142 mg DAILY@0800 NICOLE Administration Glucagon 1 mg 08/06/24 22:10 Glucagon For Inj 1 Mg Vial IM PRN PRN Hypoglycemia Protocol Glucose 15 gm 08/06/24 22:10 Glucose Oral Gel 15 Gm Of Glucse In 37.5 Gm Tube PO PRN PRN Hypoglycemia Protocol Dextrose 1,000 mls @ 100 mls/hr 08/06/24 22:10 Dextrose 5% 1,000 Ml IVPB PRN PRN Hypoglycemia Protocol Insulin Aspart 3 - 6 units 08/07/24 08:00 08/23/24 08:03 Insulin Aspart (*Bkc) 100 Units/Ml SUB-Q Not Given TIDWM [facility] Protocol Insulin Aspart 1 - 3 units 08/07/24 21:00 08/22/24 20:20 Insulin Aspart (*Bkc) 100 Units/Ml SUB-Q Not Given HS [facility] Protocol Insulin Aspart 4 units 08/21/24 12:00 08/23/24 08:25 Insulin Aspart (*Bkc) 100 Units/Ml SUB-Q 4 units TIDWM NICOLE Administration Insulin Glargine 15 units 08/18/24 08:46 08/23/24 08:24 Insulin Glargine (*Bkc) 100 Units/Ml SUB-Q 15 units DAILY NICOLE Administration Isosorbide Dinitrate 5 mg 08/09/24 21:00 08/23/24 08:16 Isosorbide Dinitrate 5 Mg Tablet PO 5 mg Q12HR NICOLE Administration Levothyroxine Sodium 100 mcg 08/08/24 06:30 08/23/24 05:46 Levothyroxine Sodium 100 Mcg Tablet PO 100 mcg DAILY@0630 NICOLE Administration Memantine 10 mg 08/06/24 21:15 08/23/24 08:16 Memantine 10 Mg Tablet PO 10 mg Q12HR NICOLE Administration Metoprolol Tartrate 5 mg 08/19/24 14:46 Metoprolol Tartrate Inj 5 Mg/5 Ml Vial IV PUSH Q2H PRN Tachycardia Metoprolol Tartrate 100 mg 08/22/24 21:00 08/23/24 08:17 Metoprolol Tartrate 50 Mg Tab PO 100 mg Q12HR NICOLE Administration Multivitamins/Minerals 1 tablet 08/07/24 09:00 08/23/24 08:17 Opti-Gen Tab PO 1 tablet Q12HR NICOLE Administration Mupirocin 1 applic 08/07/24 09:00 08/23/24 08:21 Mupirocin 2% Oint 22 Gm Tube TOPICAL 1 applic BID NICOLE Administration Nystatin 1 applic 08/06/24 21:12 Nystatin Ointment 15 Gm Tube TOPICAL BID PRN Rash Pantoprazole Sodium 40 mg 08/07/24 09:00 08/23/24 08:16 Pantoprazole 40 Mg Tablet PO 40 mg Q12HR NICOLE Administration Polyethylene Glycol 17 gm 08/14/24 13:40 Polyethylene Glycol 3350 17 Gm Powd.Pack PO QAM PRN Constipation Venlafaxine HCl 75 mg 08/07/24 09:00 08/23/24 08:17 Venlafaxine Hcl 75 Mg Tablet BY MOUTH 75 mg Q12HR NICOLE Administration Venlafaxine HCl 50 mg 08/07/24 09:00 08/23/24 08:17 Venlafaxine Hcl 25 Mg Tablet BY MOUTH 50 mg Q12HR NICOLE Administration Vitamin B Complex 1 cap 08/07/24 09:00 08/23/24 08:16 Vitamin B Complex Capsule PO 1 cap DAILY NICOLE Administration Radiology Results: ITS Impressions Chest CT 08/06/24 15:17 IMPRESSION: Moderate interstitial pulmonary edema. Trace bilateral pleural effusions. Renal Ultrasound 08/09/24 13:35 IMPRESSION: 1. Normal kidneys. No hydronephrosis. Chest X-Ray 08/11/24 13:18 IMPRESSION: 1. Airspace opacities in the lower lung zones with worsening on the left, consistent with atelectasis versus pneumonia. 2. Worsened small pleural effusions. Head CT 08/13/24 20:44 IMPRESSION: 1. Normal aging brain. Labs Labs: Laboratory Tests 08/23/24 05:40 08/23/24 05:40 Calcium 9.4 Total Bilirubin 0.6 AST 23 ALT 18 Alkaline Phosphatase 125 Total Protein 7.0 Albumin 3.6
[2024-08-23 11:57] LABS: Glucose Point of Care 253 mg/dl (65-105)
[2024-08-23] MEDS: DIGOXIN INJ 250 MCG/ML 2 ML AMP (*BKC) IV PUSH (14:24)
[2024-08-23] MEDS: SODIUM CHLORIDE 0.9% IV 1,000 ML 75 ML IV CONT (14:26)
[2024-08-23 16:40] LABS: Glucose Point of Care 190 mg/dl (65-105)
[2024-08-23 20:18] LABS: Glucose Point of Care 140 mg/dl (65-105)
[2024-08-23] MEDS: FAMOTIDINE 20 MG TABLET PO (21:14)
[2024-08-23] MEDS: DIVALPROEX SODIUM ER 500 MG TAB.24H PO (21:15)
[2024-08-24] VITALS (11 sets, daily range): BP systolic 123–146; BP diastolic 70–88; PULSE 70–123; RESP 16–22; TEMP 36.4–37.2; O2SAT 94–99
[2024-08-24 02:53] LABS: Glucose Point of Care 176 mg/dl (65-105)
[2024-08-24] MEDS: LEVOTHYROXINE SODIUM 100 MCG TABLET PO (06:51)
[2024-08-24 07:13] LABS: Basophils Absolute Auto 0.1 K/mm3 (0.0-0.1); Basophils Percent Auto 0.7 % (0.2-1.2); Eosinophils Absolute Auto 0.2 K/mm3 (0-0.3); Hematocrit 35.6 % (37.0-47.0); Hemoglobin 10.5 g/dL (12.0-15.0); Immature Granulocyte Absolute 0.06 K/mm3 (0.00-0.031); Immature Granulocyte Percent A 0.6 % (0-0.5); Immature Platelet Fraction Pct 5.6 % (0.9-11.2); Lymphocytes Absolute Auto 1.31 K/mm3 (0.9-3.2); Lymphocytes Percent Auto 12.2 % (18.3-44.2); Mean Corpuscular HGB Conc 29.5 g/dl (32-36); Mean Corpuscular Hemoglobin 27.4 pg (26-34); Mean Platelet Volume 11.9 fl (7.4-10.4); Monocytes Absolute Auto 1.2 K/mm3 (0.1-0.6); Monocytes Percent Auto 10.9 % (2.6-8.5); Neutrophils Absolute Auto 7.9 K/mm3 (1.3-6.7); Neutrophils Percent Auto 73.6 % (45.5-73.1); Platelet Count Result 261 k/mm3 (150-375); Red Blood Count 3.83 M/mm3 (4.2-5.4); Red Cell Distribution Width 18.6 % (11.5-14.5); White Blood Count 10.7 K/mm3 (4.5-10.0)
[2024-08-24 07:21] LABS: Alanine Aminotransferase 20 U/L (6-35); Albumin Level 3.3 g/dL (3.5-5.1); Alkaline Phosphatase 114 U/L (38-126); Anion Gap 9 mmol/L (4-12); Aspartate Amino Transferase 31 U/L (14-36); Bilirubin,Total 0.7 mg/dL (0.2-1.3); Blood Urea Nitrogen 46 mg/dL (7-17); Calcium 9.2 mg/dL (8.4-10.2); Carbon Dioxide 27 mmol/L (22-30); Chloride 103 mmol/L (98-107); Estimated CRCL calculation 23 ml/min; Estimated Glomerular Filt Rate 21; Glucose 135 mg/dL (65-110); Potassium 4.5 mmol/L (3.4-5.0); Sodium 139 mmol/L (137-145)
[2024-08-24 07:37] LABS: Anisocytosis 1+; Hypochromasia 1+; Platelet Estimate Adequate (Adequate); Schistocytes None Seen; Target Cells 1+
[2024-08-24 07:39] LABS: Glucose Point of Care 160 mg/dl (65-105)
[2024-08-24] MEDS: FERROUS SULFATE DRIED 142 MG TABCR PO (08:39)
[2024-08-24] MEDS: VENLAFAXINE HCL 75 MG TABLET BY MOUTH ×2 (08:39→21:20)
[2024-08-24] MEDS: METOPROLOL TARTRATE 50 MG TAB 100 MG PO ×2 (08:40→21:20)
[2024-08-24] MEDS: dilTIAZem HCL CD 120 MG CAP.24HR PO ×2 (08:42→12:14)
[2024-08-24] MEDS: busPIRone HCL 5 MG TABLET 15 MG PO (08:42)
[2024-08-24] MEDS: ISOSORBIDE DINITRATE 5 MG TABLET PO ×2 (08:42→21:21)
[2024-08-24] MEDS: VITAMIN B COMPLEX CAPSULE 1 CAP PO (08:43)
[2024-08-24] MEDS: BUMETANIDE 1 MG TABLET PO (08:43)
[2024-08-24] MEDS: MEMANTINE 10 MG TABLET PO ×2 (08:43→21:21)
[2024-08-24] MEDS: PANTOPRAZOLE 40 MG TABLET PO ×2 (08:43→21:20)
[2024-08-24] MEDS: APIXABAN 5 MG TABLET PO ×2 (08:43→21:20)
[2024-08-24] MEDS: OPTI-GEN TAB 1 TABLET PO ×2 (08:43→21:21)
[2024-08-24] MEDS: allopurinoL 100 MG TABLET PO (08:43)
[2024-08-24] MEDS: buPROPion HCL XL (24 HR) 150 MG TABCR PO (08:43)
[2024-08-24] MEDS: CALCIUM/VITAMIN D 500 MG/5 MCG (200 I.U.) TABLET PO (08:43)
[2024-08-24] MEDS: VENLAFAXINE HCL 25 MG TABLET 50 MG BY MOUTH ×2 (08:43→21:21)
--- NOTE | 2024-08-24 09:55 | PM.PNCARD ---
Progress Note: A&P Assessment and Plan (1) Atrial fibrillation with RVR: Code(s): I48.91 - Unspecified atrial fibrillation Status: Acute (2) Acute on chronic heart failure with preserved ejection fraction (HFpEF, >= 50%): Code(s): I50.33 - Acute on chronic diastolic (congestive) heart failure Status: Acute (3) Acute kidney injury superimposed on chronic kidney disease: Code(s): N17.9 - Acute kidney failure, unspecified; N18.9 - Chronic kidney disease, unspecified Status: Acute (4) Hypertension: Qualifiers: Hypertension type: unspecified Qualified Code(s): I10 - Essential (primary) hypertension Code(s): I10 - Essential (primary) hypertension Status: Chronic Plan 78-year-old woman with CAD status post PCI, chronic diastolic heart failure, paroxysmal atrial fibrillation, pulmonary hypertension, ANDREA on CPAP, CKD stage 4, type 2 diabetes mellitus, hypertension, hyperlipidemia who had presented with several days of worsening shortness of breath Chronic heart failure with preserved LVEF -She appears euvolemic, continue PO Bumex. Paroxysmal atrial fibrillation with RVR -Concern that we may have to do MARKY-guided DCCV as she had ongoing issues with RVR yesterday; heart rates are better today. I discussed MARKY-guided DCCV with patient this morning, however, she appears confused; she does however tell me that she would want some time to think about undergoing any procedures. Given this and improvement in heart rates this morning, will hold off on MARKY-guided DCCV for now. Will need to discuss further with her family (no family at bedside at the time of my visit, will reach out to them later). In the meantime, continue Metoprolol 100mg BID. Will increase Diltiazem to 240mg once daily. If we can get her adequately rate controlled, then she wouldn't need to undergo cardioversion. -Her Amiodarone was discontinued -Continue Eliquis Hypertension -Continue Isordil, Bumex, Metoprolol, Dilitazem. Recommendations and plan discussed with Hospitalist. Subjective Date/time seen: 08/24/24 09:55 Interval history: Reason for visit: Atrial fibrillation with RVR Yesterday, was having heart rates into the 130s. Was given a dose of Digoxin. This morning, heart rates are improved. Patient awake and alert, but appears confused. Review of Systems Review of Systems: All systems reviewed & are unremarkable except as noted in HPI and below (HPI) Exam Const: General: no acute distress HENMT: Mouth: Yes dry mucous membranes Eyes: General: appearance normal, both eyes and all related structures Sclera: sclerae normal Resp: Effort & Inspection: normal respiratory effort Cardio: Rhythm: abnormal rhythm irregularly irregular Neuro: Other: Awake, alert, appears confused Psych: Mental Status: mental status grossly normal Affect: normal affect Objective Data Vital Signs Vital Signs: Vital Signs - 24 hr 08/23/24 12:00 08/23/24 14:00 08/23/24 14:24 Temperature 36.3 C L Pulse Rate 113 H 83 99 Respiratory Rate 16 Blood Pressure 129/88 Pulse Oximetry 92 08/23/24 16:00 08/23/24 20:00 08/23/24 21:14 Temperature Pulse Rate 100 93 102 H Respiratory Rate Blood Pressure Pulse Oximetry 08/23/24 21:32 08/24/24 00:00 08/24/24 04:00 Temperature 36.3 C L Pulse Rate 78 102 H 123 H Respiratory Rate 13 Blood Pressure 112/72 Pulse Oximetry 99 08/24/24 05:39 08/24/24 08:40 Temperature 36.6 C Pulse Rate 101 H 103 H Respiratory Rate 17 Blood Pressure 146/88 H Pulse Oximetry 94 Intake/Output Intake/Output: Intake & Output 08/21/24 08/22/24 08/23/24 08/24/24 23:59 23:59 23:59 23:59 Intake Total 80 100 120 300 Output Total 775 525 200 250 [facility] -695 -425 -80 50 Meds/Results Medications: Active Medications Generic Name Dose Route Start Last Admin Trade Name Freq PRN Reason Stop Dose Admin Acetaminophen 650 mg 08/06/24 22:10 08/20/24 11:14 Acetaminophen 325 Mg Tablet PO 650 mg Q6H PRN Administration Mild Pain (1-3) or Fever Allopurinol 100 mg 08/07/24 09:00 08/24/24 08:43 Allopurinol 100 Mg Tablet PO 100 mg DAILY NICOLE Administration Apixaban 5 mg 08/06/24 21:20 08/24/24 08:43 Apixaban 5 Mg Tablet PO 5 mg Q12HR NICOLE Administration Bumetanide 1 mg 08/21/24 09:00 08/24/24 08:43 Bumetanide 1 Mg Tablet PO 1 mg DAILY NICOLE Administration Bupropion HCl 150 mg 08/07/24 09:00 08/24/24 08:43 Bupropion Hcl Xl (24 Hr) 150 Mg Tabcr PO 150 mg DAILY NICOLE Administration Buspirone HCl 15 mg 08/07/24 09:00 08/24/24 08:42 Buspirone Hcl 5 Mg Tablet PO 15 mg DAILY NICOLE Administration Calcium Carbonate 500 mg 08/07/24 09:00 08/24/24 08:43 Calcium/Vitamin D 500 Mg/5 Mcg (200 I.U.) Tablet PO 500 mg QAM NICOLE Administration Dextrose 12.5 gm 08/06/24 22:10 Dextrose 50% 25 Gm/50 Ml Syringe IV PUSH PRN PRN Hypoglycemia Protocol Diltiazem HCl 120 mg 08/24/24 09:53 Diltiazem Hcl Cd 120 Mg Cap.24hr PO 08/24/24 09:54 ONCE ONE Diltiazem HCl 240 mg 08/25/24 09:00 Diltiazem Hcl Cd 120 Mg Cap.24hr PO QAM NICOLE Divalproex Sodium 500 mg 08/06/24 21:50 08/23/24 21:15 Divalproex Sodium Er 500 Mg Tab.24h PO 500 mg HS [facility] Administration Docusate Sodium 100 mg 08/14/24 13:40 Docusate Sodium 100 Mg Capsule PO Q12H PRN Constipation Epoetin Ajit-epbx 10,000 units 08/13/24 09:00 08/23/24 08:27 Epoetin Ajit-Epbx 10,000 Units/Ml Vial SUB-Q 10,000 units TUTHSA@09 [facility] Administration Famotidine 20 mg 08/06/24 21:20 08/23/24 21:14 Famotidine 20 Mg Tablet PO 20 mg HS NICOLE Administration Ferrous Sulfate 142 mg 08/08/24 08:00 08/24/24 08:39 Ferrous Sulfate Dried 142 Mg Tabcr PO 142 mg DAILY@0800 [facility] Administration Glucagon 1 mg 08/06/24 22:10 Glucagon For Inj 1 Mg Vial IM PRN PRN Hypoglycemia Protocol Glucose 15 gm 08/06/24 22:10 Glucose Oral Gel 15 Gm Of Glucse In 37.5 Gm Tube PO PRN PRN Hypoglycemia Protocol Dextrose 1,000 mls @ 100 mls/hr 08/06/24 22:10 Dextrose 5% 1,000 Ml IVPB PRN PRN Hypoglycemia Protocol Insulin Aspart 3 - 6 units 08/07/24 08:00 08/24/24 08:39 Insulin Aspart (*Bkc) 100 Units/Ml SUB-Q Not Given TIDWM NICOLE Protocol Insulin Aspart 1 - 3 units 08/07/24 21:00 08/23/24 21:20 Insulin Aspart (*Bkc) 100 Units/Ml SUB-Q Not Given HS NICOLE Protocol Insulin Aspart 4 units 08/21/24 12:00 08/23/24 17:24 Insulin Aspart (*Bkc) 100 Units/Ml SUB-Q 4 units TIDWM NICOLE Administration Insulin Glargine 15 units 08/18/24 08:46 08/23/24 08:24 Insulin Glargine (*Bkc) 100 Units/Ml SUB-Q 15 units DAILY NICOLE Administration Isosorbide Dinitrate 5 mg 08/09/24 21:00 08/24/24 08:42 Isosorbide Dinitrate 5 Mg Tablet PO 5 mg Q12HR NICOLE Administration Levothyroxine Sodium 100 mcg 08/08/24 06:30 08/24/24 06:51 Levothyroxine Sodium 100 Mcg Tablet PO 100 mcg DAILY@0630 NICOLE Administration Memantine 10 mg 08/06/24 21:15 08/24/24 08:43 Memantine 10 Mg Tablet PO 10 mg Q12HR NICOLE Administration Metoprolol Tartrate 5 mg 08/19/24 14:46 Metoprolol Tartrate Inj 5 Mg/5 Ml Vial IV PUSH Q2H PRN Tachycardia Metoprolol Tartrate 100 mg 08/22/24 21:00 08/24/24 08:40 Metoprolol Tartrate 50 Mg Tab PO 100 mg Q12HR NICOLE Administration Multivitamins/Minerals 1 tablet 08/07/24 09:00 08/24/24 08:43 Opti-Gen Tab PO 1 tablet Q12HR NICOLE Administration Mupirocin 1 applic 08/07/24 09:00 08/23/24 17:25 Mupirocin 2% Oint 22 Gm Tube TOPICAL 1 applic BID NICOLE Administration Nystatin 1 applic 08/06/24 21:12 Nystatin Ointment 15 Gm Tube TOPICAL BID PRN Rash Pantoprazole Sodium 40 mg 08/07/24 09:00 08/24/24 08:43 Pantoprazole 40 Mg Tablet PO 40 mg Q12HR NICOLE Administration Polyethylene Glycol 17 gm 08/14/24 13:40 Polyethylene Glycol 3350 17 Gm Powd.Pack PO QAM PRN Constipation Venlafaxine HCl 75 mg 08/07/24 09:00 08/24/24 08:39 Venlafaxine Hcl 75 Mg Tablet BY MOUTH 75 mg Q12HR NICOLE Administration Venlafaxine HCl 50 mg 08/07/24 09:00 08/24/24 08:43 Venlafaxine Hcl 25 Mg Tablet BY MOUTH 50 mg Q12HR NICOLE Administration Vitamin B Complex 1 cap 08/07/24 09:00 08/24/24 08:43 Vitamin B Complex Capsule PO 1 cap DAILY NICOLE Administration Radiology Results: ITS Impressions Chest CT 08/06/24 15:17 IMPRESSION: Moderate interstitial pulmonary edema. Trace bilateral pleural effusions. Renal Ultrasound 08/09/24 13:35 IMPRESSION: 1. Normal kidneys. No hydronephrosis. Chest X-Ray 08/11/24 13:18 IMPRESSION: 1. Airspace opacities in the lower lung zones with worsening on the left, consistent with atelectasis versus pneumonia. 2. Worsened small pleural effusions. Head CT 08/13/24 20:44 IMPRESSION: 1. Normal aging brain. Labs Labs: Laboratory Results - last 24 hr 08/23/24 08/23/24 08/23/24 05:13 11:54 16:24 WBC RBC Hgb Hct MCV MCH MCHC RDW Plt Count MPV Immature Gran % (Auto) Neut % (Auto) Lymph % (Auto) [place] % (Auto) Eos % (Auto) Baso % (Auto) Lymph # (Auto) [place] # (Auto) Eos # (Auto) Baso # (Auto) Abs Immat Gran (auto) Absolute Neuts (auto) Absolute Nucleated RBC Nucleated RBC % Platelet Estimate % Immature Plt Fraction Hypochromasia Anisocytosis Target Cells Schistocytes Sodium Potassium Chloride Carbon Dioxide Anion Gap BUN Creatinine Estim Creat Clear Calc Estimated GFR Glucose POC Capillary Glucose 176 H 253 H 190 H Calcium Total Bilirubin AST ALT Alkaline Phosphatase Total Protein Albumin 08/23/24 08/24/24 08/24/24 20:16 06:24 07:29 WBC 10.7 H RBC 3.83 L Hgb 10.5 L Hct 35.6 L MCV 93.0 MCH 27.4 MCHC 29.5 L RDW 18.6 H Plt Count 261 MPV 11.9 H Immature Gran % (Auto) 0.6 H Neut % (Auto) 73.6 H Lymph % (Auto) 12.2 L [place] % (Auto) 10.9 H Eos % (Auto) 2.0 Baso % (Auto) 0.7 Lymph # (Auto) 1.31 [place] # (Auto) 1.2 H Eos # (Auto) 0.2 Baso # (Auto) 0.1 Abs Immat Gran (auto) 0.06 H Absolute Neuts (auto) 7.9 H Absolute Nucleated RBC 0.000 Nucleated RBC % 0.0 Platelet Estimate Adequate % Immature Plt Fraction 5.6 Hypochromasia 1+ Anisocytosis 1+ Target Cells 1+ Schistocytes None seen Sodium 139 Potassium 4.5 Chloride 103 Carbon Dioxide 27 Anion Gap 9 BUN 46 H Creatinine 2.30 H Estim Creat Clear Calc 23 Estimated GFR 21 L Glucose 135 H POC Capillary Glucose 140 H 160 H Calcium 9.2 Total Bilirubin 0.7 AST 31 ALT 20 Alkaline Phosphatase 114 Total Protein 7.0 Albumin 3.3 L
--- NOTE | 2024-08-24 10:17 | PCNFU ---
Nutrition Follow-Up Complete: Inadequate oral intake related to loss of appetite, self feeding deficit as evidenced by intakes 5-60% Improve PO intake to consistently 50-75% meals and supplements- Goal is not being met. Intakes 0-30% on diabetic consistent carb diet. Continue with goal. Feeding assistance as needed Goal: Pt current nutrition is NPO for possible procedure. Previous Diabetic consistent carb diet with Glucerna TID (220 kcal, 10 g protein) and nutritional ice cream BID (270 kcal, 9 g protein). Nutrition recommendation: Resume consistent carb diet and supplements when medically able Last recorded weight is 106 kg. Bowel Motility: +1 BM 08/23 Labs Reviewed: Hgb 10.5, Hct 35.6, Alb 3.3, BUN 46, Cre 2.3, Glu 135 Meds Noted: Eliquis, namenda, Protonix, insulin Skin: No pressure injuries noted Additional Notes: Intakes remain poor. Pt is confused and needs feeding assistance, encouragement. Unsure about cardioversion. Continue to monitor. Monitoring intakes, weights, labs, output, supplement tolerance, plan of care Follow up in 5 days
[2024-08-24 11:32] LABS: Glucose Point of Care 231 mg/dl (65-105)
[2024-08-24] MEDS: INSULIN GLARGINE (*BKC) 100 UNITS/ML 15 UNITS SUB-Q (12:14)
[2024-08-24] MEDS: INSULIN ASPART (*BKC) 100 UNITS/ML SUB-Q ×4 (12:15→17:40)
[2024-08-24] MEDS: MUPIROCIN 2% OINT 22 GM TUBE 1 APPLIC TOPICAL ×2 (12:17→18:35)
--- NOTE | 2024-08-24 15:06 | P.PNIM_ITS ---
Progress Note: A&P Assessment and Plan (1) Altered mental status: Qualifiers: Altered mental status type: unspecified Qualified Code(s): R41.82 - Altered mental status, unspecified Code(s): R41.82 - Altered mental status, unspecified Status: Resolved Assessment and Plan: Patient may have underlying dementia with superimposed metabolic encephalopathy as the cause for her problem ua was collected,chest xray done to rule out any infectious causes - son states that pt has problems with normal activities like eating-and has episodes of confusion, ?blanking out she is pretty much at her base level with some episodes of forgetfulness. - head ct unremarkable -appreciate neurology recom. Phil stopped EEG shows diffuse background slowing consistent with a generalized encephalopathy. Continue the antidepressants as before. Namenda which can be continued. Patient is AOx3 (person, place, month). Following commands. (2) Acute respiratory failure with hypoxia: Code(s): J96.01 - Acute respiratory failure with hypoxia Status: Acute Assessment and Plan: Per chart review, according to EMS her SpO2 was 84% on room air and she was placed on a non-rebreather at 15 L with some improvement. Baseline RA. Likely secondary to CHF exacerbation. - Back to baseline RA - Wean as tolerated for SpO2 > 90 08/11- will order chest xray since oxygen requirements increased Chest XR: atelectasis vs pneumonia- will treat as pneumonia in setting increased oxygen demands and confusion. Remains on room air (3) Paroxysmal atrial fibrillation: Code(s): I48.0 - Paroxysmal atrial fibrillation Status: Chronic Assessment and Plan: - Current home medication: Amiodarone 200 mg daily , Coreg 6.25 mg BID, Eliquis 5 mg BID EKG 08/16: Afib RVR HR 121 Patient was noted to be in afib RVR with HR 121 as seen on EKG. Overnight MD ordered amiodarone 200 mg x1 at that time. Patient remains in afib RVR with HR 110-130s. Asymptomatic. Attempted to call Dr. Griffith and left a voicemail. Patient coreg increased to 12.5 mg BID on 08/17. 08/18: Patient hypotension and remains in afib RVR HR 120-130s, changed coreg to metoprolol given less of an impact on BP. Discussed with cardiology PRACTICAL NURSE and will start on metoprolol 25 mg q6H. Monitor. 08/19: HR remains in the 110-120s occasionally 130s. Patient asymptomatic. Cardiology evaluated patient Continue metoprolol 25 mg q6H Discontinue amiodarone and started on diltiazem 30 mg q6H Monitor 08/20: HR remains in the 110-120s occasionally 130s on the current oral medications. Call made to Dr. Griffith and patient given IV digoxin x1. Returned to review tele and she was rate controlled in the 90s. 08/21: HR is intermittently rate controlled on current regimen. Cardiology plans for MARKY/CV tomorrow. 08/22: Cardiology no longer planning for a MARKY/CV as patients rates appear much better controlled today. Metoprolol 100 mg BID and diltiazem 120 mg daily Monitor 08/23: Patient remains in afib RVR with HR 110-120s consistently. Spoke with Dr. Alfonso and will give patient IV digoxin x1. Continue the current PO medications. Patient made NPO at midnight for possible MARKY/CV tomorrow. (4) Pneumonia: Qualifiers: Laterality: bilateral Lung location: unspecified part of lung Pneumonia type: due to unspecified organism Qualified Code(s): J18.9 - Pneumonia, unspecified organism Code(s): J18.9 - Pneumonia, unspecified organism Status: Resolved Assessment and Plan: CXR 08/11: 1. Airspace opacities in the lower lung zones with worsening on the left, consistent with atelectasis versus pneumonia. 2. Worsened small pleural effusions. - started on doxy and augmentin course to be completed on 08/19 - Viral PCR: negative for Flu/COVID/RSV - weaned back to baseline room air - Monitor vital signs, I&Os, neuro status and patient is a fall risk - Follow WBC, serum electrolytes, temperature curves and cultures Resolved. (5) Urinary tract infection: Code(s): N39.0 - Urinary tract infection, site not specified Status: Acute Assessment and Plan: ua was collected 08/11 due to increased confusion. start cefepime to cover uti/pneumonia urine culture: klebsiella pneumoniae pansensitive switched to PO antibiotics Augmentin- last dose 08/18 9 pm Resolved. (6) Acute kidney injury superimposed on chronic kidney disease: Code(s): N17.9 - Acute kidney failure, unspecified; N18.9 - Chronic kidney disease, unspecified Status: Acute Assessment and Plan: Per nephrology note on 07/29, baseline creatinine fluctuates to extremes -- anywhere from 1.6 - 2.4mg/dl (in the last year) - BUN/Cr 39/2.4 on am labs - Worsening Cr likely related to patients ongoing diuresis for CHF exacerbation (Bumex made daily instead of BID) vs overcontrol of her BP per nephrology note consider having BP range closer to 150s systolic - Monitor renal function and I/O - Avoid nephrotoxic medications - Renally dose medications - Nephrology consulted, appreciate recommendations (7) Type 2 diabetes mellitus with hyperglycemia, with long-term current use of insulin: Code(s): E11.65 - Type 2 diabetes mellitus with hyperglycemia; Z79.4 - skilled nursing (current) use of insulin Status: Chronic Assessment and Plan: home insulin toujeo- 45 units at hs, ss14 units of lispro Continue basal insulin. Initiate sliding scale insulin, Accu-Cheks, and hypoglycemic protocol. will decrease lantus this am- 20 units (from 40) as few lower readings in am, protein snacks at hs-monitor 08/14- bs low this am- will hold lantus until PO intake improves 08/15 hold insulin 08/21 hyperglycemic - Continue Lantus dose to 15 units, started 4 units lispro TIDWM. Monitor as intake improved. 08/23 blood glucose levels better controlled today, continue to monitor (8) Anemia: Qualifiers: Anemia type: unspecified type Qualified Code(s): D64.9 - Anemia, unspecified Code(s): D64.9 - Anemia, unspecified Status: Acute Assessment and Plan: Iron low -started on iron supplementation - f/u with pcp in 2-3 month for recheck (9) Hypothyroidism (acquired): Code(s): E03.9 - Hypothyroidism, unspecified Status: Acute Assessment [place]: [place] [id number] currently on 75 mcg levothyroxine Will increase to 100 mcg on 08/07 and will need TSH recheck in 6-8 weeks as an outtpt- mid to end of October (10) Coronary artery disease: Code(s): I25.10 - Atherosclerotic heart disease of [place] coronary artery without angina pectoris Status: Acute Assessment and Plan: Chronic, continue home medications. (11) Obstructive sleep apnea on CPAP: Code(s): G47.33 - Obstructive sleep apnea (adult) (pediatric); Z99.89 - Dependence on other enabling machines and devices Status: Chronic Assessment and Plan: Does not use CPAP at home. ABG ordered. Plan Medicare recertification: Pt is not back to her baseline in mentation- working with neurology. Also continues to have afib with RVR- cardiology re adjusting medication and possinbe MARKY. Time Spent With Patient Time with patient: Greater than 35 minutes Subjective Date/time seen: 08/24/24 15:06 Interval history: cardiology following for Atrial fibrillation with RVR Yesterday, was having heart rates into the 130s. Was given a dose of Digoxin. This morning, heart rates are improved. Patient awake and alert, but appears confused. No MARKY yet- Dr Alfonso will call son and update him. Pt is seen and examined. She is better than when i took care of ehr last week, still somewhat weak but overall doing better. Review of Systems Review of Systems: 12 systems were reviewed and are negativ e except for as per HPI. All systems reviewed & are unremarkable except as noted in HPI and below Exam Narrative: AF HR 83 RR 16 Spo2 92 BP 129/88 General: female in no acute respiratory distress who is nontoxic appearing, si tting up in bed HEENT: Normocephalic. Atraumatic. Extraocular movement intact. Sclera clear and anicteric. No facial asymmetry. Chest: Lungs are clear to slightly diminished bilaterally. No wheezes or crackles. CV: Heart was irregularly irregular rhythm and normal rate. S1-S2. No murmurs, gallops, or rubs. Abd: Abdomen was soft. Nontender. Nondistended. Positive bowel sounds. No organomegaly or masses. Ext: No clubbing, cyanosis, or edema. 2+ DP pulses bilaterally. Neuro: Patient is alert and oriented x3 (self, place, month). Follows commands. Speech is clear. Strength is symmetrical in pushes and pulls. Objective Data Vital Signs Vital Signs: Vital Signs - 24 hr 08/23/24 16:00 08/23/24 20:00 08/23/24 21:14 Temperature Pulse Rate 100 93 102 H Respiratory Rate Blood Pressure Pulse Oximetry Oxygen Delivery 08/23/24 21:32 08/24/24 00:00 08/24/24 04:00 Temperature 97.4 F L Pulse Rate 78 102 H 123 H Respiratory Rate 13 Blood Pressure 112/72 Pulse Oximetry 99 Oxygen Delivery 08/24/24 05:39 08/24/24 08:24 08/24/24 08:24 Temperature 97.9 F Pulse Rate 101 H 108 H Respiratory Rate 17 Blood Pressure 146/88 H Pulse Oximetry 94 Oxygen Delivery Room Air 08/24/24 08:40 08/24/24 12:00 08/24/24 14:43 Temperature 98.9 F Pulse Rate 103 H 108 H 96 Respiratory Rate 16 Blood Pressure 123/78 Pulse Oximetry 96 Oxygen Delivery Intake/Output Intake/Output: Intake & Output 08/21/24 08/22/24 08/23/24 08/24/24 23:59 23:59 23:59 23:59 Intake Total 80 100 120 300 Output Total 775 525 200 250 Balance -695 -425 -80 50 Meds/Results Medications: Active Medications Generic Name Dose Route Start Last Admin Trade Name Freq PRN Reason Stop Dose Admin Acetaminophen 650 mg 08/06/24 22:10 08/20/24 11:14 Acetaminophen 325 Mg Tablet PO 650 mg Q6H PRN Administration Mild Pain (1-3) or Fever Allopurinol 100 mg 08/07/24 09:00 08/24/24 08:43 Allopurinol 100 Mg Tablet PO 100 mg DAILY NICOLE Administration Apixaban 5 mg 08/06/24 21:20 08/24/24 08:43 Apixaban 5 Mg Tablet PO 5 mg Q12HR NICOLE Administration Bumetanide 1 mg 08/21/24 09:00 08/24/24 08:43 Bumetanide 1 Mg Tablet PO 1 mg DAILY NICOLE Administration Bupropion HCl 150 mg 08/07/24 09:00 08/24/24 08:43 Bupropion Hcl Xl (24 Hr) 150 Mg Tabcr PO 150 mg DAILY NICOLE Administration Buspirone HCl 15 mg 08/07/24 09:00 08/24/24 08:42 Buspirone Hcl 5 Mg Tablet PO 15 mg DAILY NICOLE Administration Calcium Carbonate 500 mg 08/07/24 09:00 08/24/24 08:43 Calcium/Vitamin D 500 Mg/5 Mcg (200 I.U.) Tablet PO 500 mg QAM NICOLE Administration Dextrose 12.5 gm 08/06/24 22:10 Dextrose 50% 25 Gm/50 Ml Syringe IV PUSH PRN PRN Hypoglycemia Protocol Diltiazem HCl 240 mg 08/25/24 09:00 Diltiazem Hcl Cd 120 Mg Cap.24hr PO QAM NICOLE Divalproex Sodium 500 mg 08/06/24 21:50 08/23/24 21:15 Divalproex Sodium Er 500 Mg Tab.24h PO 500 mg HS NICOLE Administration Docusate Sodium 100 mg 08/14/24 13:40 Docusate Sodium 100 Mg Capsule PO Q12H PRN Constipation Epoetin Ajit-epbx 10,000 units 08/13/24 09:00 08/23/24 08:27 Epoetin Ajit-Epbx 10,000 Units/Ml Vial SUB-Q 10,000 units TUTHSA@09 NICOLE Administration Famotidine 20 mg 08/06/24 21:20 08/23/24 21:14 Famotidine 20 Mg Tablet PO 20 mg HS NICOLE Administration Ferrous Sulfate 142 mg 08/08/24 08:00 08/24/24 08:39 Ferrous Sulfate Dried 142 Mg Tabcr PO 142 mg DAILY@0800 NICOLE Administration Glucagon 1 mg 08/06/24 22:10 Glucagon For Inj 1 Mg Vial IM PRN PRN Hypoglycemia Protocol Glucose 15 gm 08/06/24 22:10 Glucose Oral Gel 15 Gm Of Glucse In 37.5 Gm Tube PO PRN PRN Hypoglycemia Protocol Dextrose 1,000 mls @ 100 mls/hr 08/06/24 22:10 Dextrose 5% 1,000 Ml IVPB PRN PRN Hypoglycemia Protocol Insulin Aspart 3 - 6 units 08/07/24 08:00 08/24/24 12:15 Insulin Aspart (*Bkc) 100 Units/Ml SUB-Q 3 units TIDWM NICOLE Administration Protocol Insulin Aspart 1 - 3 units 08/07/24 21:00 08/23/24 21:20 Insulin Aspart (*Bkc) 100 Units/Ml SUB-Q Not Given HS NICOLE Protocol Insulin Aspart 4 units 08/21/24 12:00 08/24/24 12:15 Insulin Aspart (*Bkc) 100 Units/Ml SUB-Q 4 units TIDWM NICOLE Administration Insulin Glargine 15 units 08/18/24 08:46 08/24/24 12:14 Insulin Glargine (*Bkc) 100 Units/Ml SUB-Q 15 units DAILY NICOLE Administration Isosorbide Dinitrate 5 mg 08/09/24 21:00 08/24/24 08:42 Isosorbide Dinitrate 5 Mg Tablet PO 5 mg Q12HR NICOLE Administration Levothyroxine Sodium 100 mcg 08/08/24 06:30 08/24/24 06:51 Levothyroxine Sodium 100 Mcg Tablet PO 100 mcg DAILY@0630 NICOLE Administration Memantine 10 mg 08/06/24 21:15 08/24/24 08:43 Memantine 10 Mg Tablet PO 10 mg Q12HR NICOLE Administration Metoprolol Tartrate 5 mg 08/19/24 14:46 Metoprolol Tartrate Inj 5 Mg/5 Ml Vial IV PUSH Q2H PRN Tachycardia Metoprolol Tartrate 100 mg 08/22/24 21:00 08/24/24 08:40 Metoprolol Tartrate 50 Mg Tab PO 100 mg Q12HR NICOLE Administration Multivitamins/Minerals 1 tablet 08/07/24 09:00 08/24/24 08:43 Opti-Gen Tab PO 1 tablet Q12HR NICOLE Administration Mupirocin 1 applic 08/07/24 09:00 08/24/24 12:17 Mupirocin 2% Oint 22 Gm Tube TOPICAL 1 applic BID NICOLE Administration Nystatin 1 applic 08/06/24 21:12 Nystatin Ointment 15 Gm Tube TOPICAL BID PRN Rash Pantoprazole Sodium 40 mg 08/07/24 09:00 08/24/24 08:43 Pantoprazole 40 Mg Tablet PO 40 mg Q12HR NICOLE Administration Polyethylene Glycol 17 gm 08/14/24 13:40 Polyethylene Glycol 3350 17 Gm Powd.Pack PO QAM PRN Constipation Venlafaxine HCl 75 mg 08/07/24 09:00 08/24/24 08:39 Venlafaxine Hcl 75 Mg Tablet BY MOUTH 75 mg Q12HR NICOLE Administration Venlafaxine HCl 50 mg 08/07/24 09:00 08/24/24 08:43 Venlafaxine Hcl 25 Mg Tablet BY MOUTH 50 mg Q12HR NICOLE Administration Vitamin B Complex 1 cap 08/07/24 09:00 08/24/24 08:43 Vitamin B Complex Capsule PO 1 cap DAILY NICOLE Administration Radiology Results: ITS Impressions Chest CT 08/06/24 15:17 IMPRESSION: Moderate interstitial pulmonary edema. Trace bilateral pleural effusions. Renal Ultrasound 08/09/24 13:35 IMPRESSION: 1. Normal kidneys. No hydronephrosis. Head CT 08/13/24 20:44 IMPRESSION: 1. Normal aging brain. Chest X-Ray 08/24/24 13:23 Impression: Minimal pleural effusions. Stable cardiomegaly. Labs Labs: Laboratory Results - last 24 hr 08/23/24 08/23/24 08/23/24 05:13 16:24 20:16 WBC RBC Hgb Hct MCV MCH MCHC RDW Plt Count MPV Immature Gran % (Auto) Neut % (Auto) Lymph % (Auto) [place] % (Auto) Eos % (Auto) Baso % (Auto) Lymph # (Auto) [place] # (Auto) Eos # (Auto) Baso # (Auto) Abs Immat Gran (auto) Absolute Neuts (auto) Absolute Nucleated RBC Nucleated RBC % Platelet Estimate % Immature Plt Fraction Hypochromasia Anisocytosis Target Cells Schistocytes Sodium Potassium Chloride Carbon Dioxide Anion Gap BUN Creatinine Estim Creat Clear Calc Estimated GFR Glucose POC Capillary Glucose 176 H 190 H 140 H Calcium Total Bilirubin AST ALT Alkaline Phosphatase Total Protein Albumin 08/24/24 08/24/24 08/24/24 06:24 07:29 11:29 WBC 10.7 H RBC 3.83 L Hgb 10.5 L Hct 35.6 L MCV 93.0 MCH 27.4 MCHC 29.5 L RDW 18.6 H Plt Count 261 MPV 11.9 H Immature Gran % (Auto) 0.6 H Neut % (Auto) 73.6 H Lymph % (Auto) 12.2 L [place] % (Auto) 10.9 H Eos % (Auto) 2.0 Baso % (Auto) 0.7 Lymph # (Auto) 1.31 [place] # (Auto) 1.2 H Eos # (Auto) 0.2 Baso # (Auto) 0.1 Abs Immat Gran (auto) 0.06 H Absolute Neuts (auto) 7.9 H Absolute Nucleated RBC 0.000 Nucleated RBC % 0.0 Platelet Estimate Adequate % Immature Plt Fraction 5.6 Hypochromasia 1+ Anisocytosis 1+ Target Cells 1+ Schistocytes None seen Sodium 139 Potassium 4.5 Chloride 103 Carbon Dioxide 27 Anion Gap 9 BUN 46 H Creatinine 2.30 H Estim Creat Clear Calc 23 Estimated GFR 21 L Glucose 135 H POC Capillary Glucose 160 H 231 H Calcium 9.2 Total Bilirubin 0.7 AST 31 ALT 20 Alkaline Phosphatase 114 Total Protein 7.0 Albumin 3.3 L Quality VTE Prophylaxis VTE prophylaxis: pharmacologic ordered (on apixaban)
--- NOTE | 2024-08-24 16:22 | PCSTNOTE ---
Please refer to the Bedside Swallow Evaluation in the EMR. Please note, silent aspiration cannot be ruled out at bedside.
[2024-08-24 16:47] LABS: Glucose Point of Care 230 mg/dl (65-105)
[2024-08-24 20:43] LABS: Glucose Point of Care 192 mg/dl (65-105)
[2024-08-24] MEDS: FAMOTIDINE 20 MG TABLET PO (21:20)
[2024-08-24] MEDS: DIVALPROEX SODIUM ER 500 MG TAB.24H PO (21:20)
[2024-08-24 21:27] LABS: Add Urine Microscopic? YES; Appearance Urine Turbid (Clear); Bacteria Urine Rare /hpf; Bilirubin Urine Negative (Negative); Blood Urine 2+ (Negative); Color Urine Dark Yellow (Yellow); Glucose Urine UA Negative (Negative); Ketones Urine Trace mg/dL (Negative); Leukocyte Esterase Ur 3+ LEU/UL (Negative); Need Manual Microscopic Reviewed; Nitrate Urine Negative (Negative); Non Pathogenic Casts >20; Protein Urine 2+ mg/dL (Negative); RBC Urine >100 /hpf (0-2); Squamous Epithelial Cell Urine Moderate /hpf (Few); WBC Urine >100 /hpf (0-3)
[2024-08-25] VITALS (8 sets, daily range): BP systolic 100–130; BP diastolic 64–68; PULSE 60–78; RESP 16–22; TEMP 36.1–36.3; O2SAT 96–97
[2024-08-25] MEDS: LEVOTHYROXINE SODIUM 100 MCG TABLET PO (06:22)
[2024-08-25 08:02] LABS: Glucose Point of Care 182 mg/dl (65-105)
--- NOTE | 2024-08-25 08:55 | P.PNIM_ITS ---
Progress Note: A&P Assessment and Plan (1) Altered mental status: Qualifiers: Altered mental status type: unspecified Qualified Code(s): R41.82 - Altered mental status, unspecified Code(s): R41.82 - Altered mental status, unspecified Status: Resolved Assessment and Plan: Patient may have underlying dementia with superimposed metabolic encephalopathy as the cause for her problem ua was collected,chest xray done to rule out any infectious causes - son states that pt has problems with normal activities like eating-and has episodes of confusion, ?blanking out she is pretty much at her base level with some episodes of forgetfulness. - head ct unremarkable -appreciate neurology recom. Phil stopped EEG shows diffuse background slowing consistent with a generalized encephalopathy. Continue the antidepressants as before. Namenda which can be continued. Patient is AOx3 (person, place, month). Following commands. (2) Acute respiratory failure with hypoxia: Code(s): J96.01 - Acute respiratory failure with hypoxia Status: Acute Assessment and Plan: Per chart review, according to EMS her SpO2 was 84% on room air and she was placed on a non-rebreather at 15 L with some improvement. Baseline RA. Likely secondary to CHF exacerbation. - Back to baseline RA - Wean as tolerated for SpO2 > 90 08/11- will order chest xray since oxygen requirements increased Chest XR: atelectasis vs pneumonia- will treat as pneumonia in setting increased oxygen demands and confusion. Remains on room air (3) Paroxysmal atrial fibrillation: Code(s): I48.0 - Paroxysmal atrial fibrillation Status: Chronic Assessment and Plan: - Current home medication: Amiodarone 200 mg daily , Coreg 6.25 mg BID, Eliquis 5 mg BID EKG 08/16: Afib RVR HR 121 Patient was noted to be in afib RVR with HR 121 as seen on EKG. Overnight MD ordered amiodarone 200 mg x1 at that time. Patient remains in afib RVR with HR 110-130s. Asymptomatic. Attempted to call Dr. Griffith and left a voicemail. Patient coreg increased to 12.5 mg BID on 08/17. 08/18: Patient hypotension and remains in afib RVR HR 120-130s, changed coreg to metoprolol given less of an impact on BP. Discussed with cardiology [employer] and will start on metoprolol 25 mg q6H. Monitor. 08/19: HR remains in the 110-120s occasionally 130s. Patient asymptomatic. Cardiology evaluated patient Continue metoprolol 25 mg q6H Discontinue amiodarone and started on diltiazem 30 mg q6H Monitor 08/20: HR remains in the 110-120s occasionally 130s on the current oral medications. Call made to Dr. Griffith and patient given IV digoxin x1. Returned to review tele and she was rate controlled in the 90s. 08/21: HR is intermittently rate controlled on current regimen. Cardiology plans for MARKY/CV tomorrow. 08/22: Cardiology no longer planning for a MARKY/CV as patients rates appear much better controlled today. Metoprolol 100 mg BID and diltiazem 120 mg daily Monitor 08/23: Patient remains in afib RVR with HR 110-120s consistently. Spoke with Dr. Alfonso and will give patient IV digoxin x1. Continue the current PO medications. Patient made NPO at midnight for possible MARKY/CV tomorrow. 08/24- vs reviewed- somewhat tahcy [id number] 08/25- cards. note reviewed: continue Metoprolol 100mg BID.Diltiazem decreased to 240mg once daily. if rate is controlled, then she wouldn't need to undergo cardioversion. -Her Amiodarone was discontinued -Continue Eliquis (4) Pneumonia: Qualifiers: Laterality: bilateral Lung location: unspecified part of lung Pneumonia type: due to unspecified organism Qualified Code(s): J18.9 - Pneumonia, unspecified organism Code(s): J18.9 - Pneumonia, unspecified organism Status: Resolved Assessment and Plan: CXR 08/11: 1. Airspace opacities in the lower lung zones with worsening on the left, consistent with atelectasis versus pneumonia. 2. Worsened small pleural effusions. - started on doxy and augmentin course to be completed on 08/19 - Viral PCR: negative for Flu/COVID/RSV - weaned back to baseline room air - Monitor vital signs, I&Os, neuro status and patient is a fall risk - Follow WBC, serum electrolytes, temperature curves and cultures Resolved. (5) Urinary tract infection: Code(s): N39.0 - Urinary tract infection, site not specified Status: Acute Assessment and Plan: ua was collected 08/11 due to increased confusion. start cefepime to cover uti/pneumonia urine culture: klebsiella pneumoniae pansensitive switched to PO antibiotics Augmentin- last dose 08/18 9 pm Resolved. (6) Acute kidney injury superimposed on chronic kidney disease: Code(s): N17.9 - Acute kidney failure, unspecified; N18.9 - Chronic kidney disease, unspecified Status: Acute Assessment and Plan: Per nephrology note on 07/29, baseline creatinine fluctuates to extremes -- anywhere from 1.6 - 2.4mg/dl (in the last year) - BUN/Cr 39/2.4 on am labs - Worsening Cr likely related to patients ongoing diuresis for CHF exacerbation (Bumex made daily instead of BID) vs overcontrol of her BP per nephrology note consider having BP range closer to 150s systolic - Monitor renal function and I/O - Avoid nephrotoxic medications - Renally dose medications - Nephrology consulted, appreciate recommendations (7) Type 2 diabetes mellitus with hyperglycemia, with long-term current use of insulin: Code(s): E11.65 - Type 2 diabetes mellitus with hyperglycemia; Z79.4 - alf (current) use of insulin Status: Chronic Assessment and Plan: home insulin toujeo- 45 units at hs, ss14 units of lispro Continue basal insulin. Initiate sliding scale insulin, Accu-Cheks, and hypoglycemic protocol. will decrease lantus this am- 20 units (from 40) as few lower readings in am, protein snacks at hs-monitor 08/14- bs low this am- will hold lantus until PO intake improves 08/15 hold insulin 08/21 hyperglycemic - Continue Lantus dose to 15 units, started 4 units lispro TIDWM. Monitor as intake improved. 08/23 blood glucose levels better controlled today, continue to monitor (8) Anemia: Qualifiers: Anemia type: unspecified type Qualified Code(s): D64.9 - Anemia, unspecified Code(s): D64.9 - Anemia, unspecified Status: Acute Assessment and Plan: Iron low -started on iron supplementation - f/u with pcp in 2-3 month for recheck (9) Hypothyroidism (acquired): Code(s): E03.9 - Hypothyroidism, unspecified Status: Acute Assessment [place]: [place] [id number] currently on 75 mcg levothyroxine Will increase to 100 mcg on 08/07 and will need TSH recheck in 6-8 weeks as an outtpt- mid to end of October (10) Coronary artery disease: Code(s): I25.10 - Atherosclerotic heart disease of [place] coronary artery without angina pectoris Status: Acute Assessment and Plan: Chronic, continue home medications. (11) Obstructive sleep apnea on CPAP: Code(s): G47.33 - Obstructive sleep apnea (adult) (pediatric); Z99.89 - Dependence on other enabling machines and devices Status: Chronic Assessment and Plan: Does not use CPAP at home. ABG ordered. Plan # htn -Continue Isordil, Bumex, Metoprolol, Dilitazem. Time Spent With Patient Time with patient: Greater than 35 minutes Subjective Date/time seen: 08/25/24 08:55 Interval history: Pt is seen and examined. No acute complains at this time. Cardiology adjusting meds to control afib. Once stable- ok to discharge. Review of Systems Review of Systems: 12 systems were reviewed and are negativ e except for as per HPI. All systems reviewed & are unremarkable except as noted in HPI and below Exam Narrative: AF HR 83 RR 16 Spo2 92 BP 129/88 General: female in no acute respiratory distress who is nontoxic appearing, sitting up in bed HEENT: Normocephalic. Atraumatic. Extraocular movement intact. Sclera clear and anicteric. No facial asymmetry. Chest: Lungs are clear to slightly diminished bilaterally. No wheezes or crackles. CV: Heart was irregularly irregular rhythm and normal rate. S1-S2. No murmurs, gallops, or rubs. Abd: Abdomen was soft. Nontender. Nondistended. Positive bowel sounds. No organomegaly or masses. Ext: No clubbing, cyanosis, or edema. 2+ DP pulses bilaterally. Neuro: Patient is alert and oriented x3 (self, place, month). Follows commands. Speech is clear. Strength is symmetrical in pushes and pulls. Objective Data Vital Signs Vital Signs: Vital Signs - 24 hr 08/24/24 12:00 08/24/24 14:43 08/24/24 16:00 Temperature 98.9 F Pulse Rate 108 H 96 87 Respiratory Rate 16 Blood Pressure 123/78 Pulse Oximetry 96 08/24/24 20:00 08/24/24 21:17 08/24/24 21:20 Temperature 97.5 F L Pulse Rate 70 76 82 Respiratory Rate 22 H Blood Pressure 137/70 Pulse Oximetry 99 08/25/24 00:00 08/25/24 04:00 08/25/24 06:00 Temperature 97.0 F L Pulse Rate 77 69 60 Respiratory Rate 22 H Blood Pressure 100/68 Pulse Oximetry 97 Intake/Output Intake/Output: Intake & Output 08/22/24 08/23/24 08/24/24 08/25/24 23:59 23:59 23:59 23:59 Intake Total 100 120 660 240 Output Total 525 200 250 550 Balance -425 -80 410 -310 Meds/Results Medications: Active Medications Generic Name Dose Route Start Last Admin Trade Name Freq PRN Reason Stop Dose Admin Acetaminophen 650 mg 08/06/24 22:10 08/20/24 11:14 Acetaminophen 325 Mg Tablet PO 650 mg Q6H PRN Administration Mild Pain (1-3) or Fever Allopurinol 100 mg 08/07/24 09:00 08/24/24 08:43 Allopurinol 100 Mg Tablet PO 100 mg DAILY NICOLE Administration Apixaban 5 mg 08/06/24 21:20 08/24/24 21:20 Apixaban 5 Mg Tablet PO 5 mg Q12HR NICOLE Administration Bumetanide 1 mg 08/21/24 09:00 08/24/24 08:43 Bumetanide 1 Mg Tablet PO 1 mg DAILY NICOLE Administration Bupropion HCl 150 mg 08/07/24 09:00 08/24/24 08:43 Bupropion Hcl Xl (24 Hr) 150 Mg Tabcr PO 150 mg DAILY NICOLE Administration Buspirone HCl 15 mg 08/07/24 09:00 08/24/24 08:42 Buspirone Hcl 5 Mg Tablet PO 15 mg DAILY NICOLE Administration Calcium Carbonate 500 mg 08/07/24 09:00 08/24/24 08:43 Calcium/Vitamin D 500 Mg/5 Mcg (200 I.U.) Tablet PO 500 mg QAM NICOLE Administration Dextrose 12.5 gm 08/06/24 22:10 Dextrose 50% 25 Gm/50 Ml Syringe IV PUSH PRN PRN Hypoglycemia Protocol Diltiazem HCl 240 mg 08/25/24 09:00 Diltiazem Hcl Cd 120 Mg Cap.24hr PO QAM NICOLE Divalproex Sodium 500 mg 08/06/24 21:50 08/24/24 21:20 Divalproex Sodium Er 500 Mg Tab.24h PO 500 mg HS NICOLE Administration Docusate Sodium 100 mg 08/14/24 13:40 Docusate Sodium 100 Mg Capsule PO Q12H PRN Constipation Epoetin Ajit-epbx 10,000 units 08/13/24 09:00 08/23/24 08:27 Epoetin Ajit-Epbx 10,000 Units/Ml Vial SUB-Q 10,000 units TUTHSA@09 NICOLE Administration Famotidine 20 mg 08/06/24 21:20 08/24/24 21:20 Famotidine 20 Mg Tablet PO 20 mg HS NICOLE Administration Ferrous Sulfate 142 mg 08/08/24 08:00 08/24/24 08:39 Ferrous Sulfate Dried 142 Mg Tabcr PO 142 mg DAILY@0800 NICOLE Administration Glucagon 1 mg 08/06/24 22:10 Glucagon For Inj 1 Mg Vial IM PRN PRN Hypoglycemia Protocol Glucose 15 gm 08/06/24 22:10 Glucose Oral Gel 15 Gm Of Glucse In 37.5 Gm Tube PO PRN PRN Hypoglycemia Protocol Dextrose 1,000 mls @ 100 mls/hr 08/06/24 22:10 Dextrose 5% 1,000 Ml IVPB PRN PRN Hypoglycemia Protocol Insulin Aspart 3 - 6 units 08/07/24 08:00 08/24/24 17:40 Insulin Aspart (*Bkc) 100 Units/Ml SUB-Q 3 units TIDWM NICOLE Administration Protocol Insulin Aspart 1 - 3 units 08/07/24 21:00 08/24/24 21:09 Insulin Aspart (*Bkc) 100 Units/Ml SUB-Q Not Given HS [facility] Protocol Insulin Aspart 4 units 08/21/24 12:00 08/24/24 17:40 Insulin Aspart (*Bkc) 100 Units/Ml SUB-Q 4 units TIDWM NICOLE Administration Insulin Glargine 15 units 08/18/24 08:46 08/24/24 12:14 Insulin Glargine (*Bkc) 100 Units/Ml SUB-Q 15 units DAILY NICOLE Administration Isosorbide Dinitrate 5 mg 08/09/24 21:00 08/24/24 21:21 Isosorbide Dinitrate 5 Mg Tablet PO 5 mg Q12HR NICOLE Administration Levothyroxine Sodium 100 mcg 08/08/24 06:30 12/19/24 06:22 Levothyroxine Sodium 100 Mcg Tablet PO 100 mcg DAILY@0630 NICOLE Administration Memantine 10 mg 08/06/24 21:15 08/24/24 21:21 Memantine 10 Mg Tablet PO 10 mg Q12HR NICOLE Administration Metoprolol Tartrate 5 mg 08/19/24 14:46 Metoprolol Tartrate Inj 5 Mg/5 Ml Vial IV PUSH Q2H PRN Tachycardia Metoprolol Tartrate 100 mg 08/22/24 21:00 08/24/24 21:20 Metoprolol Tartrate 50 Mg Tab PO 100 mg Q12HR NICOLE Administration Multivitamins/Minerals 1 tablet 08/07/24 09:00 08/24/24 21:21 Opti-Gen Tab PO 1 tablet Q12HR NICOLE Administration Mupirocin 1 applic 08/07/24 09:00 08/24/24 18:35 Mupirocin 2% Oint 22 Gm Tube TOPICAL 1 applic BID NIOCLE Administration Nystatin 1 applic 08/06/24 21:12 Nystatin Ointment 15 Gm Tube TOPICAL BID PRN Rash Pantoprazole Sodium 40 mg 08/07/24 09:00 08/24/24 21:20 Pantoprazole 40 Mg Tablet PO 40 mg Q12HR NICOLE Administration Polyethylene Glycol 17 gm 08/14/24 13:40 Polyethylene Glycol 3350 17 Gm Powd.Pack PO QAM PRN Constipation Venlafaxine HCl 75 mg 08/07/24 09:00 08/24/24 21:20 Venlafaxine Hcl 75 Mg Tablet BY MOUTH 75 mg Q12HR NICOLE Administration Venlafaxine HCl 50 mg 08/07/24 09:00 08/24/24 21:21 Venlafaxine Hcl 25 Mg Tablet BY MOUTH 50 mg Q12HR NICOLE Administration Vitamin B Complex 1 cap 08/07/24 09:00 08/24/24 08:43 Vitamin B Complex Capsule PO 1 cap DAILY NICOLE Administration Radiology Results: ITS Impressions Chest CT 08/06/24 15:17 IMPRESSION: Moderate interstitial pulmonary edema. Trace bilateral pleural effusions. Renal Ultrasound 08/09/24 13:35 IMPRESSION: 1. Normal kidneys. No hydronephrosis. Head CT 08/13/24 20:44 IMPRESSION: 1. Normal aging brain. Chest X-Ray 08/24/24 13:23 Impression: Minimal pleural effusions. Stable cardiomegaly. Labs Labs: Laboratory Results - last 24 hr 08/24/24 08/24/24 08/24/24 11:29 16:43 20:39 POC Capillary Glucose 231 H 230 H 192 H Urine Color Urine Appearance Urine pH Ur Specific [place] Urine Protein Urine Glucose (UA) Urine Ketones Ur Blood (Man) Urine Nitrate Urine Bilirubin Urine Urobilinogen Ur Leukocyte Esterase Add Ur Microanalysis Urine RBC Urine WBC Ur Squamous Epith Cells Urine Bacteria Urine Casts 08/24/24 08/25/24 20:57 08:00 POC Capillary Glucose 182 H Urine Color Dark yellow Urine Appearance Turbid H Urine pH 5.0 Ur Specific [place] 1.020 Urine Protein 2+ H Urine Glucose (UA) Negative Urine Ketones Trace H Ur Blood (Man) 2+ H Urine Nitrate Negative Urine Bilirubin Negative Urine Urobilinogen 1.0 Ur Leukocyte Esterase 3+ H Add Ur Microanalysis Reviewed Urine RBC >100 H Urine WBC >100 H Ur Squamous Epith Cells Moderate Urine Bacteria Rare Urine Casts >20 Quality VTE Prophylaxis VTE prophylaxis: pharmacologic ordered (on apixaban)
[2024-08-25] MEDS: INSULIN GLARGINE (*BKC) 100 UNITS/ML 15 UNITS SUB-Q (08:58)
[2024-08-25] MEDS: INSULIN ASPART (*BKC) 100 UNITS/ML SUB-Q ×3 (08:59→12:03)
[2024-08-25] MEDS: dilTIAZem HCL CD 120 MG CAP.24HR 240 MG PO (09:00)
[2024-08-25] MEDS: polyethylene glycoL 3350 17 GM POWD.PACK PO (09:00)
[2024-08-25] MEDS: VENLAFAXINE HCL 25 MG TABLET 50 MG BY MOUTH (09:00)
[2024-08-25] MEDS: METOPROLOL TARTRATE 50 MG TAB 100 MG PO (09:00)
[2024-08-25] MEDS: PANTOPRAZOLE 40 MG TABLET PO (09:00)
[2024-08-25] MEDS: FERROUS SULFATE DRIED 142 MG TABCR PO (09:00)
[2024-08-25] MEDS: busPIRone HCL 5 MG TABLET 15 MG PO (09:00)
[2024-08-25] MEDS: VITAMIN B COMPLEX CAPSULE 1 CAP PO (09:00)
[2024-08-25] MEDS: VENLAFAXINE HCL 75 MG TABLET BY MOUTH (09:00)
[2024-08-25] MEDS: buPROPion HCL XL (24 HR) 150 MG TABCR PO (09:00)
[2024-08-25] MEDS: ISOSORBIDE DINITRATE 5 MG TABLET PO (09:00)
[2024-08-25] MEDS: OPTI-GEN TAB 1 TABLET PO (09:00)
[2024-08-25] MEDS: BUMETANIDE 1 MG TABLET PO (09:00)
[2024-08-25] MEDS: MEMANTINE 10 MG TABLET PO (09:00)
[2024-08-25] MEDS: CALCIUM/VITAMIN D 500 MG/5 MCG (200 I.U.) TABLET PO (09:00)
[2024-08-25] MEDS: DOCUSATE SODIUM 100 MG CAPSULE PO (09:00)
[2024-08-25] MEDS: APIXABAN 5 MG TABLET PO (09:01)
[2024-08-25] MEDS: MUPIROCIN 2% OINT 22 GM TUBE 1 APPLIC TOPICAL (09:01)
[2024-08-25] MEDS: allopurinoL 100 MG TABLET PO (09:01)
--- NOTE | 2024-08-25 09:35 | PM.PNCARD ---
Progress Note: A&P Assessment and Plan (1) Atrial fibrillation with RVR: Code(s): I48.91 - Unspecified atrial fibrillation Status: Acute (2) Acute on chronic diastolic heart failure: Code(s): I50.33 - Acute on chronic diastolic (congestive) heart failure Status: Acute Plan 78-year-old woman with CAD status post PCI, chronic diastolic heart failure, paroxysmal atrial fibrillation, pulmonary hypertension, ANDREA on CPAP, CKD stage 4, diabetes type 2, and hypertension/hyperlipidemia presented with several days of worsening shortness of breath Chronic diastolic heart failure -she appears euvolemic on her home dose of Bumex -renal function is stable Paroxysmal atrial fibrillation -her rates appear much better controlled today -will increase her Lopressor to 100 mg p.o. b.i.d. -will consolidate her diltiazem to 240 mg p.o. daily -her amiodarone was discontinued -continue Eliquis Hypertension -continue Isordil Cardiology was sign of. Please have her follow up palpation for EP referral and considerations for atrial fibrillation ablation outpatient Subjective Date/time seen: 08/25/24 09:35 Interval history: No chest pain or shortness of breath. No orthopnea. Lower extremity swelling stable and significantly improved compared to admission Review of Systems Cardiovascular: Cardiovascular: Reports as per HPI Respiratory: Respiratory: Reports as per HPI Exam Const: General: comfortable HENMT: Mouth: Yes moist mucous membranes Eyes: EOM: EOMs intact bilaterally Neck: Neck: no JVD Resp: Auscultation: clear to auscultation bilaterally Cardio: Rate: regular rate Rhythm: abnormal rhythm GI: GI Palp: Yes Soft to palpation Extrem: General: no edema Objective Data Vital Signs Vital Signs: Vital Signs - 24 hr 08/24/24 12:00 08/24/24 14:43 08/24/24 16:00 Temperature 37.2 C Pulse Rate 108 H 96 87 Respiratory Rate 16 Blood Pressure 123/78 Pulse Oximetry 96 08/24/24 20:00 08/24/24 21:17 08/24/24 21:20 Temperature 36.4 C L Pulse Rate 70 76 82 Respiratory Rate 22 H Blood Pressure 137/70 Pulse Oximetry 99 08/25/24 00:00 08/25/24 04:00 08/25/24 06:00 Temperature 36.1 C L Pulse Rate 77 69 60 Respiratory Rate 22 H Blood Pressure 100/68 Pulse Oximetry 97 08/25/24 09:00 Temperature Pulse Rate 73 Respiratory Rate Blood Pressure Pulse Oximetry Intake/Output Intake/Output: Intake & Output 08/22/24 08/23/24 08/24/24 08/25/24 23:59 23:59 23:59 23:59 Intake Total 100 120 660 480 Output Total 525 200 250 550 Balance -425 -80 410 -70 Meds/Results Medications: Active Medications Generic Name Dose Route Start Last Admin Trade Name Freq PRN Reason Stop Dose Admin Acetaminophen 650 mg 08/06/24 22:10 08/20/24 11:14 Acetaminophen 325 Mg Tablet PO 650 mg Q6H PRN Administration Mild Pain (1-3) or Fever Allopurinol 100 mg 08/07/24 09:00 08/25/24 09:01 Allopurinol 100 Mg Tablet PO 100 mg DAILY NICOLE Administration Apixaban 5 mg 08/06/24 21:20 08/25/24 09:01 Apixaban 5 Mg Tablet PO 5 mg Q12HR NICOLE Administration Bumetanide 1 mg 08/21/24 09:00 08/25/24 09:00 Bumetanide 1 Mg Tablet PO 1 mg DAILY NICOLE Administration Bupropion HCl 150 mg 08/07/24 09:00 08/25/24 09:00 Bupropion Hcl Xl (24 Hr) 150 Mg Tabcr PO 150 mg DAILY NICOLE Administration Buspirone HCl 15 mg 08/07/24 09:00 08/25/24 09:00 Buspirone Hcl 5 Mg Tablet PO 15 mg DAILY NICOLE Administration Calcium Carbonate 500 mg 08/07/24 09:00 08/25/24 09:00 Calcium/Vitamin D 500 Mg/5 Mcg (200 I.U.) Tablet PO 500 mg QAM NICOLE Administration Dextrose 12.5 gm 08/06/24 22:10 Dextrose 50% 25 Gm/50 Ml Syringe IV PUSH PRN PRN Hypoglycemia Protocol Diltiazem HCl 240 mg 08/25/24 09:00 08/25/24 09:00 Diltiazem Hcl Cd 120 Mg Cap.24hr PO 240 mg QAM NICOLE Administration Divalproex Sodium 500 mg 08/06/24 21:50 08/24/24 21:20 Divalproex Sodium Er 500 Mg Tab.24h PO 500 mg HS NICOLE Administration Docusate Sodium 100 mg 08/14/24 13:40 08/25/24 09:00 Docusate Sodium 100 Mg Capsule PO 100 mg Q12H PRN Administration Constipation Epoetin Ajit-epbx 10,000 units 08/13/24 09:00 08/23/24 08:27 Epoetin Ajit-Epbx 10,000 Units/Ml Vial SUB-Q 10,000 units TUTHSA@09 NICOLE Administration Famotidine 20 mg 08/06/24 21:20 08/24/24 21:20 Famotidine 20 Mg Tablet PO 20 mg HS NICOLE Administration Ferrous Sulfate 142 mg 08/08/24 08:00 08/25/24 09:00 Ferrous Sulfate Dried 142 Mg Tabcr PO 142 mg DAILY@0800 NICOLE Administration Glucagon 1 mg 08/06/24 22:10 Glucagon For Inj 1 Mg Vial IM PRN PRN Hypoglycemia Protocol Glucose 15 gm 08/06/24 22:10 Glucose Oral Gel 15 Gm Of Glucse In 37.5 Gm Tube PO PRN PRN Hypoglycemia Protocol Dextrose 1,000 mls @ 100 mls/hr 08/06/24 22:10 Dextrose 5% 1,000 Ml IVPB PRN PRN Hypoglycemia Protocol Insulin Aspart 3 - 6 units 08/07/24 08:00 08/25/24 09:01 Insulin Aspart (*Bkc) 100 Units/Ml SUB-Q Not Given TIDWM [facility] Protocol Insulin Aspart 1 - 3 units 08/07/24 21:00 08/24/24 21:09 Insulin Aspart (*Bkc) 100 Units/Ml SUB-Q Not Given HS [facility] Protocol Insulin Aspart 4 units 08/21/24 12:00 08/25/24 08:59 Insulin Aspart (*Bkc) 100 Units/Ml SUB-Q 4 units TIDWM NICOLE Administration Insulin Glargine 15 units 08/18/24 08:46 08/25/24 08:58 Insulin Glargine (*Bkc) 100 Units/Ml SUB-Q 15 units DAILY NICOLE Administration Isosorbide Dinitrate 5 mg 08/09/24 21:00 08/25/24 09:00 Isosorbide Dinitrate 5 Mg Tablet PO 5 mg Q12HR NICOLE Administration Levothyroxine Sodium 100 mcg 08/08/24 06:30 08/25/24 06:22 Levothyroxine Sodium 100 Mcg Tablet PO 100 mcg DAILY@0630 NICOLE Administration Memantine 10 mg 11/30/24 21:15 08/25/24 09:00 Memantine 10 Mg Tablet PO 10 mg Q12HR NICOLE Administration Metoprolol Tartrate 5 mg 08/19/24 14:46 Metoprolol Tartrate Inj 5 Mg/5 Ml Vial IV PUSH Q2H PRN Tachycardia Metoprolol Tartrate 100 mg 08/22/24 21:00 08/25/24 09:00 Metoprolol Tartrate 50 Mg Tab PO 100 mg Q12HR NICOLE Administration Multivitamins/Minerals 1 tablet 08/07/24 09:00 08/25/24 09:00 Opti-Gen Tab PO 1 tablet Q12HR NICOLE Administration Mupirocin 1 applic 08/07/24 09:00 08/25/24 09:01 Mupirocin 2% Oint 22 Gm Tube TOPICAL 1 applic BID NICOLE Administration Nystatin 1 applic 08/06/24 21:12 Nystatin Ointment 15 Gm Tube TOPICAL BID PRN Rash Pantoprazole Sodium 40 mg 08/07/24 09:00 08/25/24 09:00 Pantoprazole 40 Mg Tablet PO 40 mg Q12HR NICOLE Administration Polyethylene Glycol 17 gm 08/14/24 13:40 08/25/24 09:00 Polyethylene Glycol 3350 17 Gm Powd.Pack PO 17 gm QAM PRN Administration Constipation Venlafaxine HCl 75 mg 08/07/24 09:00 08/25/24 09:00 Venlafaxine Hcl 75 Mg Tablet BY MOUTH 75 mg Q12HR NICOLE Administration Venlafaxine HCl 50 mg 08/07/24 09:00 08/25/24 09:00 Venlafaxine Hcl 25 Mg Tablet BY MOUTH 50 mg Q12HR NICOLE Administration Vitamin B Complex 1 cap 08/07/24 09:00 08/25/24 09:00 Vitamin B Complex Capsule PO 1 cap DAILY NICOLE Administration Radiology Results: ITS Impressions Chest CT 08/06/24 15:17 IMPRESSION: Moderate interstitial pulmonary edema. Trace bilateral pleural effusions. Renal Ultrasound 08/09/24 13:35 IMPRESSION: 1. Normal kidneys. No hydronephrosis. Head CT 08/13/24 20:44 IMPRESSION: 1. Normal aging brain. Chest X-Ray 08/24/24 13:23 Impression: Minimal pleural effusions. Stable cardiomegaly. Labs Labs: Laboratory Results - last 24 hr 08/24/24 08/24/24 08/24/24 11:29 16:43 20:39 POC Capillary Glucose 231 H 230 H 192 H Urine Color Urine Appearance Urine pH Ur Specific [place] Urine Protein Urine Glucose (UA) Urine Ketones Ur Blood (Man) Urine Nitrate Urine Bilirubin Urine Urobilinogen Ur Leukocyte Esterase Add Ur Microanalysis Urine RBC Urine WBC Ur Squamous Epith Cells Urine Bacteria Urine Casts 08/24/24 08/25/24 20:57 08:00 POC Capillary Glucose 182 H Urine Color Dark yellow Urine Appearance Turbid H Urine pH 5.0 Ur Specific [place] 1.020 Urine Protein 2+ H Urine Glucose (UA) Negative Urine Ketones Trace H Ur Blood (Man) 2+ H Urine Nitrate Negative Urine Bilirubin Negative Urine Urobilinogen 1.0 Ur Leukocyte Esterase 3+ H Add Ur Microanalysis Reviewed Urine RBC >100 H Urine WBC >100 H Ur Squamous Epith Cells Moderate Urine Bacteria Rare Urine Casts >20
[2024-08-25 11:55] LABS: Glucose Point of Care 237 mg/dl (65-105)
[2024-08-25] MEDS: EPOETIN ALFA-EPBX 10,000 UNITS/ML VIAL 10000 UNITS SUB-Q (12:03)
--- NOTE | 2024-08-25 12:44 | P.DS_ITS ---
DS: Admitting Diagnosis Discharge Date 08/25 Admitting Diagnosis sob, chest pain DS: Discharge Diagnosis Discharge Diagnosis (1) Altered mental status: Qualifiers: Altered mental status type: unspecified Qualified Code(s): R41.82 - Altered mental status, unspecified Code(s): R41.82 - Altered mental status, unspecified Status: Resolved (2) Acute respiratory failure with hypoxia: Code(s): J96.01 - Acute respiratory failure with hypoxia Status: Acute (3) Paroxysmal atrial fibrillation: Code(s): I48.0 - Paroxysmal atrial fibrillation Status: Chronic (4) Pneumonia: Qualifiers: Laterality: bilateral Lung location: unspecified part of lung Pneumonia type: due to unspecified organism Qualified Code(s): J18.9 - Pneumonia, unspecified organism Code(s): J18.9 - Pneumonia, unspecified organism Status: Resolved (5) Urinary tract infection: Code(s): N39.0 - Urinary tract infection, site not specified Status: Acute (6) Acute kidney injury superimposed on chronic kidney disease: Code(s): N17.9 - Acute kidney failure, unspecified; N18.9 - Chronic kidney disease, unspecified Status: Acute (7) Type 2 diabetes mellitus with hyperglycemia, with long-term current use of insulin: Code(s): E11.65 - Type 2 diabetes mellitus with hyperglycemia; Z79.4 - detention (current) use of insulin Status: Chronic (8) Anemia: Qualifiers: Anemia type: unspecified type Qualified Code(s): D64.9 - Anemia, unspecified Code(s): D64.9 - Anemia, unspecified Status: Acute (9) Hypothyroidism (acquired): Code(s): E03.9 - Hypothyroidism, unspecified Status: Acute (10) Coronary artery disease: Code(s): I25.10 - Atherosclerotic heart disease of [place] coronary artery without angina pectoris Status: Acute (11) Obstructive sleep apnea on CPAP: Code(s): G47.33 - Obstructive sleep apnea (adult) (pediatric); Z99.89 - Dependence on other enabling machines and devices Status: Chronic DS: Summary Hospital Course Hospital Course: 78-year-old woman with CAD status post PCI, chronic diastolic heart failure, paroxysmal atrial fibrillation, pulmonary hypertension, ANDREA on CPAP, CKD stage 4, diabetes type 2, and hypertension/hyperlipidemia presented with several days of worsening shortness of breath. She had been slowly deteriorating and she is frequent patient here. Prior to this admission, she flat out refusing placement. According to her sin, she did go to rehab once and was not working with pt/ot much and hated it there-and wanted to come back home. This time, with her declining in mental status- possibly due to dementia progression and.or combination of uti/pneumonia- she is agreeable to go to SNF for rehab. During the course of hospitalization, she was treated for pneumonia- completed tx. She required oxygen at some point but was weaned off of it now. She completed UTI treatment. IT was a concern about her acting weird - so neurology was consulted with no clear explanation for her declining in functional status. It was a point during her stay when she was tachycardic and required card eval and possible MARKY- that was postponed as her heart rates returned to normal. She will have to f/u with cardiology as well as neurology as an oupt and continue to work with PT/OT to regain her strength. Pt is at high risk for readmission. several issues were addressed during her hospitalization: #AMS Patient may have underlying dementia with superimposed metabolic encephalopathy as the cause for her problem ua was collected,chest xray done to rule out any infectious causes - son states that pt has problems with normal activities like eating-and has episodes of confusion, ?blanking out she is pretty much at her base level with some episodes of forgetfulness. - head ct unremarkable -appreciate neurology recom. Phil stopped EEG shows diffuse background slowing consistent with a generalized encephalopathy. Continue the antidepressants as before. Namenda which can be continued. Patient is AOx3 (person, place, month). Following commands. # resp.failure/resp distress Per chart review, according to EMS her SpO2 was 84% on room air and she was placed on a non-rebreather at 15 L with some improvement. Baseline RA. Likely secondary to CHF exacerbation. - Back to baseline RA # afib - Current home medication: Amiodarone 200 mg daily , Coreg 6.25 mg BID, Eliquis 5 mg BID EKG 08/16: Afib RVR HR 121 Patient was noted to be in afib RVR with HR 121 as seen on EKG. Overnight MD ordered amiodarone 200 mg x1 at that time. Patient remains in afib RVR with HR 110-130s. Asymptomatic. Attempted to call Dr. Griffith and left a voicemail. Patient coreg increased to 12.5 mg BID on 08/17. 08/18: Patient hypotension and remains in afib RVR HR 120-130s, changed coreg to metoprolol given less of an impact on BP. 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 Monitor. 08/19: HR remains in the 110-120s occasionally 130s. Patient asymptomatic. Cardiology evaluated patient Continue metoprolol 25 mg q6H Discontinue amiodarone and started on diltiazem 30 mg q6H Monitor 08/20: HR remains in the 110-120s occasionally 130s on the current oral medications. Call made to Dr. Griffith and patient given IV digoxin x1. Returned to review tele and she was rate controlled in the 90s. 08/21: HR is intermittently rate controlled on current regimen. Cardiology plans for MARKY/CV tomorrow. 08/22: Cardiology no longer planning for a MARKY/CV as patients rates appear much better controlled today. Metoprolol 100 mg BID and diltiazem 120 mg daily Monitor 08/23: Patient remains in afib RVR with HR 110-120s consistently. Spoke with Dr. Alfonso and will give patient IV digoxin x1. Continue the current PO medications. Patient made NPO at midnight for possible MARKY/CV tomorrow. 08/24- vs reviewed- somewhat tachy [id number] but around 1400- HR improved and remained stable 08/25- cards. note reviewed: continue Metoprolol 100mg BID.Diltiazem decreased to 240mg once daily. if rate is controlled, then she wouldn't need to undergo cardioversion. -Her Amiodarone was discontinued -Continue Eliquis # pneumonia CXR 08/11: 1. Airspace opacities in the lower lung zones with worsening on the left, consistent with atelectasis versus pneumonia. 2. Worsened small pleural effusions. - started on doxy and augmentin course to be completed on 08/19 - Viral PCR: negative for Flu/COVID/RSV - weaned back to baseline room air - Monitor vital signs, I&Os, neuro status and patient is a fall risk - Follow WBC, serum electrolytes, temperature curves and cultures Resolved. # UTI ua was collected 08/11 due to increased confusion. start cefepime to cover uti/pneumonia urine culture: klebsiella pneumoniae pansensitive switched to PO antibiotics Augmentin- last dose 08/18 9 pm Resolved. # ALBERTINA Per nephrology note on 07/29, baseline creatinine fluctuates to extremes -- anywhere from 1.6 - 2.4mg/dl (in the last year) - BUN/Cr 39/2.4 on am labs - Worsening Cr likely related to patients ongoing diuresis for CHF exacerbation (Bumex made daily instead of BID) vs overcontrol of her BP per nephrology note consider having BP range closer to 150s systolic - Monitor renal function and I/O - Avoid nephrotoxic medications - Renally dose medications - Nephrology following # t2dm home insulin toujeo- 45 units at hs, ss14 units of lispro since her appetite wa spoor- we were holding her lantus and had her on SS. when discharged- we will restart 10 units of lantus at night- please ensure she eats protein rish snack and hold other meds for now. Have pcp/provider re eval and decide if more insulin is needed. #anemia Iron low -started on iron supplementation - f/u with pcp in 2-3 month for recheck # [place] [id number] currently on 75 mcg levothyroxine Will increase to 100 mcg on 08/07 and will need TSH recheck in 6-8 weeks as an outtpt- mid to end of October Status at Discharge Functional status at discharge: uses cane/walker Overall status at discharge: patient is progressing back to baseline Time Spent with Patient Time attestation: Total time spent providing and/or coordinating discharge services: Time spent: Greater than 30 minutes Exam Narrative: AF HR 83 RR 16 Spo2 92 BP 129/88 General: female in no acute respiratory distress who is nontoxic appearing, sitting up in bed HEENT: Normocephalic. Atraumatic. Extraocular movement intact. Sclera clear and anicteric. No facial asymmetry. Chest: Lungs are clear to slightly diminished bilaterally. No wheezes or crackles. CV: Heart was irregularly irregular rhythm and normal rate. S1-S2. No murmurs, gallops, or rubs. Abd: Abdomen was soft. Nontender. Nondistended. Positive bowel sounds. No organomegaly or masses. Ext: No clubbing, cyanosis, or edema. 2+ DP pulses bilaterally. Neuro: Patient is alert and oriented x3 (self, place, month). Follows commands. Speech is clear. Strength is symmetrical in pushes and pulls. DS: Data Data Completed and Pending Completed studies during hospitalization: multiple studies: chest xry, ct head, renal ultrasound Labs on day of discharge: Labs from last 24 hours 08/25/24 08/25/24 08/24/24 11:44 08:00 20:57 POC Capillary Glucose 237 H 182 H Urine Color Dark yellow Urine Appearance Turbid H Urine pH 5.0 Ur Specific [place]comb 1.020 Urine Protein 2+ H Urine Glucose (UA) Negative Urine Ketones Trace H Ur Blood (Man) 2+ H Urine Nitrate Negative Urine Bilirubin Negative Urine Urobilinogen 1.0 Ur Leukocyte Esterase 3+ H Add Ur Microanalysis Reviewed Urine RBC >100 H Urine WBC >100 H Ur Squamous Epith Cells Moderate Urine Bacteria Rare Urine Casts >20 08/24/24 08/24/24 20:39 16:43 POC Capillary Glucose 192 H 230 H Urine Color Urine Appearance Urine pH Ur Specific Lipscomb Urine Protein Urine Glucose (UA) Urine Ketones Ur Blood (Man) Urine Nitrate Urine Bilirubin Urine Urobilinogen Ur Leukocyte Esterase Add Ur Microanalysis Urine RBC Urine WBC Ur Squamous Epith Cells Urine Bacteria Urine Casts Discharge Plan Discharge Attending physician on discharge: Kathleen Smiley Consulting providers: Margaux Eduardo; Campbell Shin; Paul Cruz Discharging Clinician: Melissa Bustos Patient Disposition: SNF Activity: may shower Diet: diabetic and other - see discharge instructions Discharge Instructions: please f/u with pcp to have your tsh rechecked around october. Iron levels needs to be rechecked. f/u with cardiology and neurology. Modified Barium Swallow Study results from 08/25/2024 recommend moderately thickened liquids with soft and bite sized diet. Patient Instructions: Heart Failure (DC) Patient Language: Malagasy Stand Alone Forms: General Discharge Information Follow-up/Referrals: Margaux Eduardo MD [Physician] - 4 Weeks Campbell Shin MD [Physician] - 2 Weeks Paul Cruz MD [Physician] - 2 Weeks Sarbjit Lai MD [Primary Care Provider] - 2 Weeks Discharge Medications: New diltiazem HCl 120 mg Capsule,Extended Release 24 Hr 240 mg PO QAM Qty: 90 0RF bumetanide 1 mg Tablet 1 mg PO DAILY Qty: 90 0RF ferrous sulfate [Slow Release Iron] 142 mg (45 mg iron) Tablet Extended Release 142 mg PO DAILY@0800 Qty: 90 0RF polyethylene glycol 3350 [Miralax] 17 gram Powder In Packet 17 g PO QAM PRN (Reason: Constipation) Qty: 30 0RF levothyroxine [Synthroid] 100 mcg Tablet 100 mcg PO DAILY@0630 Qty: 90 0RF metoprolol tartrate 50 mg Tablet 100 mg PO Q12HR Qty: 90 0RF Continued Repatha SureClick 140 mg/mL pen injector 140 mg subcut Q14D divalproex [Depakote] 500 mg tablet,delayed release (DR/EC) 500 mg PO HS omeprazole 40 mg capsule,delayed release(DR/EC) 40 mg PO DAILY Qty: 30 2RF Rx Instructions: take 1 capsule q.a.m. on empty stomach and wait 15 minutes to eat or drink PreserVision AREDS-2 250-90-40-1 mg Tablet,Chewable 1 tablet PO Q12H calcium carbonate-vitamin D3 600 mg-5 mcg (200 unit) Tablet 1 tablet PO DAILY vitamin B complex Tablet 1 tablet PO DAILY nystatin 100,000 unit/gram ointment 1 applic topical BID PRN (Reason: Rash) Rx Instructions: apply to groin area famotidine 20 mg tablet 20 mg PO HS memantine 10 mg tablet 10 mg PO Q12H venlafaxine [Effexor XR] 75 mg Capsule,Extended Release 24hr 125 mg PO DAILY carvedilol 6.25 mg tablet 6.25 mg PO DAILY allopurinol 100 mg tablet 100 mg PO DAILY Rx Instructions: TAKE 1 TABLET BY MOUTH EVERY DAY pramipexole 0.25 mg tablet 0.25 mg PO BID buspirone 15 mg tablet 15 mg PO DAILY bupropion HCl 150 mg tablet extended release 24 hr 150 mg PO DAILY (DME) blood-glucose meter [Blood Glucose Monitoring] Kit See Rx Instructions .ROUTE .MEDSUPPLY Qty: 1 0RF Rx Instructions: As directed Eliquis 5 mg tablet 5 mg PO Q12H Qty: 90 4RF isosorbide dinitrate 10 mg tablet 10 mg PO Q12H Qty: 90 1RF trospium 20 mg tablet 20 mg PO Q12H Qty: 30 1RF mupirocin 2 % ointment 1 applic topical BID Qty: 22 0RF Changed insulin glargine U-300 conc [Toujeo Max U-300 SoloStar] 300 unit/mL (3 mL) insulin pen 10 unit subcut DAILY 90 Days Qty: 15 1RF Held insulin lispro [Humalog KwikPen Insulin] 100 unit/mL insulin pen 14 unit subcut .tidac MDD 60 90 Days Qty: 54 1RF Hold Instructions: Resume on 09/08/24. please re assess if higher dose for insulin is needed. Rx Instructions: 14 units tid ac with a sliding scale For blood sugars 150-200- take 2 unit 201- 250- take 4 units 251 - 300- take 6 units 301- 350- take 8 units 351 - 400- take 10 units more than 401- take 12 units Discontinued bumetanide 2 mg tablet 2 mg PO Q12H levothyroxine [Euthyrox] 75 mcg tablet 75 [place] 0630 gabapentin [Neurontin] 100 mg capsule 100 mg PO Q8H amiodarone 200 mg tablet 200 mg PO HS Qty: 30 4RF Date of admission: 08/06/24 16:21 Primary Care Provider: Sarbjit Lai Admitting Provider: Lopez Mills Attending physician on admission: Nisa Sheldon Condition: Stable Quality VTE Prophylaxis VTE prophylaxis: pharmacologic ordered (on apixaban) Hospitalist MIPS Heart Failure (Exclusion) Patient has history of Heart Transplant or Left Ventricular Assistive Device?: No IF YES, STOP HERE Heart Failure (Qualifier) Patient has current or prior documentation of LVEF less than or equal to 40%, or mod/servere depressed LVSF?: No IF NO, STOP HERE
--- NOTE | 2024-08-25 14:59 | PCSTNOTE ---
Please refer to the Modified Barium Swallow Evaluation in the EMR.
[2024-08-25 17:06] LABS: Glucose Point of Care 205 mg/dl (65-105)
== END 2024-08-25 17:25 | DRG 291 ==
LOC: ANHED 15:56 → ANH3MEDSUR 17:11
PROVIDERS: Internal Medicine; Internal Medicine Nephrology; Physician Assistant; Student in an Organized Health Care Education/Training Program; Admitting Provider Internal Medicine; Emergency Provider Emergency Medicine; PCP Family Medicine; Visit Provider Nurse Practitioner
DX: I13.0 Hypertensive heart and chronic kidney disease with heart failure and stage 1 through stage 4 chronic kidney disease, or unspecified chronic kidney disease (principal); G93.41 Metabolic encephalopathy; I50.33 Acute on chronic diastolic (congestive) heart failure; J96.01 Acute respiratory failure with hypoxia; J18.9 Pneumonia, unspecified organism; N18.4 Chronic kidney disease, stage 4 (severe); N39.0 Urinary tract infection, site not specified; N17.9 Acute kidney failure, unspecified; E11.42 Type 2 diabetes mellitus with diabetic polyneuropathy; H35.30 Unspecified macular degeneration; E78.2 Mixed hyperlipidemia; G25.81 Restless legs syndrome; I48.0 Paroxysmal atrial fibrillation; I25.10 Atherosclerotic heart disease of native coronary artery without angina pectoris; E11.65 Type 2 diabetes mellitus with hyperglycemia; E03.9 Hypothyroidism, unspecified; G47.33 Obstructive sleep apnea (adult) (pediatric); Z79.01 Long term (current) use of anticoagulants; Z85.3 Personal history of malignant neoplasm of breast; Z85.828 Personal history of other malignant neoplasm of skin; Z95.5 Presence of coronary angioplasty implant and graft; Z90.49 Acquired absence of other specified parts of digestive tract; Z96.641 Presence of right artificial hip joint; B96.1 Klebsiella pneumoniae [K. pneumoniae] as the cause of diseases classified elsewhere; R00.1 Bradycardia, unspecified; D63.1 Anemia in chronic kidney disease; E11.22 Type 2 diabetes mellitus with diabetic chronic kidney disease; G31.84 Mild cognitive impairment of uncertain or unknown etiology; R27.0 Ataxia, unspecified; Z91.51 Personal history of suicidal behavior
CPT/HCPCS: 36415; 36600; 70450; 71045; 71250; 76775; 80048; 80053; 81001; 81050; 82550; 82570; 82607; 82747; 82805; 82948; 83540; 83550; 83735; 83880; 84100; 84156; 84300; 84439; 84443; 84480; 84484; 84540; 85018; 85025; 85027; 85055; 85610; 85730; 85999; 87086; 87088; 87186; 92610; 92611; 93005; 95816; 96374; 97110; 97162; 97164; 97165; 97530; 97535; 99291; A9270; J0692; J1160; J1756; J1815; J1939; J3010; J7030; Q5105

== ENCOUNTER 2024-10-05 20:00 | Emergency (ER) | payer MEDICARE, SELFPAY ==
--- NOTE | ~2024-10-05 | CT_ITS ---
EXAMINATION: CT brain wo con DATE: 10/05/2024 20:58 INDICATION: Fall . TECHNIQUE: Computed tomography (CT) of the head was performed without intravenous contrast. The mA wa s adjusted according to patient size. Iterative reconstruction technique was employed. The dose-lengt h product was 681.00 mGy-cm. COMPARISON: 08/13/2024. FINDINGS: No acute intracranial hemorrhage or extra-axial fluid collection. No hydrocephalus, mass, or herniation. No acute ischemic infarct. Unremarkable dural venous sinus attenuation. No acute osseous abnormality. The aerated spaces are clear. Mild atrophy and chronic white matter change. Atherosclerotic intracranial calcification. Bilateral l ens replacements. IMPRESSION: No acute intracranial process. Reviewed, dictated and finalized at location K. R COVERING PRINTER ASSISTANT
--- NOTE | ~2024-10-05 | CT_ITS ---
EXAMINATION: CT cervical spine wo con DATE: 10/05/2024 20:58 INDICATION: Fall TECHNIQUE: Computed tomography (CT) of the cervical spine was performed without intravenous contrast. Automated exposure control and iterative reconstruction technique were employed. The dose-length pro duct was 669.71 mGy-cm. COMPARISON: CT soft tissue neck 09/07/2023. FINDINGS: Vertebral Body Alignment: Stable minimal multilevel listheses.. Craniocervical and atlantoaxial alignment: Moderate degenerative change. Alignment intact. Osseous structures/fracture: No evidence of a lytic or blastic process in the visualized spine. No e vidence of acute fracture. Cervical soft tissues: The paraspinal soft tissues planes are maintained. Small bilateral pleural eff usions and edematous changes in the lungs. Enlarged mediastinal lymph nodes. Degenerative changes: Degenerative changes, without severe neural foraminal or central canal narrowin g. IMPRESSION: No acute fracture or traumatic malalignment in the cervical spine. Mild pulmonary edema with small bilateral pleural effusions. No lymphadenopathy. Reviewed, dictated and finalized at location [facility] IMPRESSION: No acute fracture or traumatic malalignment in the cervical spine. Mild pulmonary edema with small bilateral pleural effusions. No lymphadenopathy .
[2024-10-05 20:00] VITALS: BP 132/78; PULSE 100; RESP 16; TEMP 36.6; O2SAT 98
[2024-10-05 20:16] VITALS: O2SAT 97
--- OUTSIDE RECORDS SUMMARY | 2024-10-05 21:08 | XMS_ITS | Referral Summary ---
Author Organization [facility] Address [address] [place] [address] Care Team Providers Care Meringuer Name Role Phone Samantha Upton NP Unavailable [phone] Mook Duran MD PhD Unavailable [phone] Mohan Mi MD Unavailable Maricarmen Helms MD Unavailable [phone] Nicolasa Jackson NP Unavailable [phone] Sarbjit Lai MD Primary Care Provider [phone] Encounters Date Type Department Care Team Description 09/20/2024 9:00 AM BLUEPRINT ENGINEER Office Visit [facility] Cardiology [address] [place] [address] [place] [phone] Kimberly Abernathy NP Persistent atrial fibrillation (HCC) (Primary Dx); Chronic diastolic congestive heart failure (CMS/HCC) (HCC); Coronary artery disease involving kaibab coronary artery of kaibab heart without angina pectoris; Hypotension due to drugs; Hospital discharge follow-up 08/30/2024 Orders Only [facility] Cardiology [address] [place] [address] [place] [phone] Zhanna Alfonso MD 08/24/2024 Telephone [facility] Cardiology [address] [place] [address] [place] [phone] Zhanna Alfonso MD cardioversion 08/23/2024 Orders Only [facility] Cardiology [address] [place] [phone] Campbell Shin MD 08/16/2024 Orders Only [facility] Cardiology [address] [place] [address] [place] [phone] Christiano Mai MD 08/01/2024 Telephone [facility] Cardiology [address] [place] [address] [address] [place] [phone] Kimberly Abernathy NP Med Refill 07/27/2024 Orders Only [facility] Cardiology [address] [place] [address] [place] [phone] Zhanna Alfonso MD from Last 3 Months Allergies Active Allergy Reactions Criticality Noted Date Comments Atenolol Syncope,Muscle pain,Shortness of breath,Mental status changes High Reaction: Syncope/Low BP, Myalgia, Short of breath, Mental Status Changes, Exenatide Microspheres Diarrhea Low 07/27/2017 Prochlorperazine Edisylate Itching,Anxiety Low Hydrocodone-Acetaminophen Itching Low Nsaids (Non-Steroidal Anti-Inflammatory Drug) Unknown 01/18/2018 Not supposed to take because of kidneys Oxycodone-Acetaminophen Itching Low Rice Other (See comments) Low 02/28/2020 Heart burn Bsqfuik-Ekm-Yin Reductase Inhibitors Muscle pain Medium 06/07/2014 Medications pen needle, diabetic (Pen Needle) 32 gauge x 5/32 needle Use as directed once a day. 100 each 02/27/20 Active pen needle, diabetic 32 gauge x 5/32 needle Use as directed 3 times a day. 100 each 02/27/20 Active pen needle, diabetic (Pen Needle) 32 gauge x 5/32 needle Use as directed once a day. 100 each 02/27/20 Active pen needle, diabetic 32 gauge x 5/32 needle Use as directed 3 times a day. 100 each 02/27/20 Active allopurinoL (ZYLOPRIM) 100 mg tablet TAKE 1 TABLET BY MOUTH EVERY DAY 30 tablet 7 10/06/20 22 Active pramipexole (MIRAPEX) 0.25 mg tabletIndication s:Type 2 diabetes mellitus with stage 3b chronic kidney disease, with long-term current use of insulin (HCC) TAKE 1 TABLET BY MOUTH TWICE A DAY 60 tablet 8 07/20/20 22 Active trospium (SANCTURA) 20 mg tablet TAKE 1 TABLET BY MOUTH TWICE A DAY 60 tablet 8 08/11/20 22 Active gabapentin (NEURONTIN) 100 mg capsule TAKE 1 CAPSULE BY MOUTH THREE TIMES A DAY 90 capsule 2 11/03/19 23 Active Additional Information Patient not taking.Reported on 09/20/2024 busPIRone (BUSPAR) 15 mg tabletIndication s:Generalized Anxiety Disorder TAKE 1 TABLET BY MOUTH ONCE DAILY IN THE MORNING FOR 7 DAYS, THEN INCREASE TO 1 TABLET BY MOUTH TWICE DAILY. 60 tablet 2 03/25/20 23 Active Additional Information Patient taking differently: 15 mg oral Daily, TAKE 1 TABLET BY MOUTH daily per med list from md rebolledo 06/09, Indications: Generalized Anxiety Disorder, Reason: from md med list of amaury on 06/09, Reported on 09/20/2024 apixaban (ELIQUIS) 5 mg tabletIndication s:atrial fibrillation Take 1 tablet (5 mg total) by mouth every 12 (twelve) hours 60 tablet 05/28/20 23 Active isosorbide dinitrate (ISORDIL) 10 mg tablet Take 1 tablet (10 mg total) by mouth 3 (three) times a day 90 tablet 05/28/20 23 Active famotidine (PEPCID) 20 mg tablet Take 1 tablet (20 mg total) by mouth daily 30 tablet 05/29/20 23 Active antiox #8/om3/dha/epa/l ut/zeax (PRESERVISION AREDS 2, OMEGA-3, ORAL)Indications :supplement Take 1 tablet by mouth 2 (two) times a day. Indications: supplement Active cartilage/collag en/hyalur ac/C (JOINT HEALTH ULTRA ORAL)Indications :arthritis Take 1 capsule by mouth daily. Indications: arthritis Active COLLAGEN-BIOTIN- ASCORBIC ACID ORALIndications: arthritis Take 1 capsule by mouth daily. Indications: arthritis Active Lactobac 40-Bifido 3-S.thermop (Probiotic) 100 billion cell capsuleIndicatio ns:gut health Take 1 capsule by mouth daily. Indications: gut health Active insulin lispro (HumaLOG) 100 unit/mL pen for injectionIndicat ions:type 2 diabetes mellitus Inject 12 Units under the skin 3 (three) times a day before meals Active NOT IN DATABASE, PRESCRIPTION,Ind ications:hypogly cemia Apply 3 mg intranasally as needed (hypoglyc. episode). pt has rx in home does not come up in data base Indications: hypoglycemia Active evolocumab (Repatha SureClick) 140 mg/mL pen injector Inject 1 mL (140 mg total) under the skin every 14 (fourteen) days 2 mL 11 06/29/20 23 Active divalproex ER (DEPAKOTE ER) 500 mg 24 hr tablet TAKE 1 TABLET (500 MG TOTAL) BY MOUTH DAILY. 30 tablet 4 09/03/20 23 Active venlafaxine XR (EFFEXOR-XR) 150 mg 24 hr capsule TAKE 2 CAPSULES BY MOUTH EVERY DAY 60 capsule 3 09/09/19 24 Active bumetanide (BUMEX) 2 mg tablet Take 1 tablet (2 mg total) by mouth 2 (two) times a day PLEASE CALL TO SCHEDULE AN APPOINTMENT. 180 tablet 08/01/20 24 025 Active Additional Information Patient taking differently: 1 mgoral 2 times daily,(No instructions reported), Reported on 09/20/2024 buPROPion XL (WELLBUTRIN XL) 150 mg 24 hr tablet Take 1 tablet (150 mg total) by mouth every morning 07/25/20 24 Active LANTUS 100 unit/mL vial for injection INJECT 30 UNITS SUBCUTANEOUSLY DAILY DISCARD AFTER 28 DAYS 06/24/20 Active memantine (NAMENDA) 10 mg tablet Take 1 tablet (10 mg total) by mouth 2 (two) times a day 07/25/20 24 Active nystatin ointment Apply topically 2 (two) times a day 07/10/20 24 Active omeprazole (PriLOSEC) 40 mg capsule PLEASE SEE ATTACHED FOR DETAILED DIRECTIONS 07/24/20 24 Active iron, carbonyl (FEOSOL) 45 mg tabletIndication s:Iron Deficiency Anemia 0.283 tablets (45 mg total) Active vitamin b complex tablet Take 1 tablet by mouth daily Active cranberry fruit concentrate 500 mg capsule Take by mouth Activ e cephalexin (KEFLEX) 500 mg capsule Oral Active metoprolol tartrate (LOPRESSOR) 50 mg immediate release tablet Take 2 tablets (100 mg total) by mouth 2 (two) times a day Active dilTIAZem CD/XR/XT (dilTIAZem CD) 120 mg 24 hr capsule Take 1 capsule (120 mg total) by mouth daily Active HumuLIN R U-500 500 unit/mL (3 mL) CONCENTRATED pen for injection INJECT 85 UNITS UNDE THE SKIN BEFORE BREAKFAST AND 50 UNITS BEFORE DINNER 02/05/20 23 023 Discontin ued(Other ) amiodarone (PACERONE) 200 mg tabletIndication s:heart Take 1 tablet (200 mg total) by mouth daily 30 tablet 06/02/20 23 025 Discontin ued(Alter ran therapy) carvediloL (COREG) 6.25 mg tablet Take 1 tablet (6.25 mg total) by mouth 2 (two) times a day 60 tablet 05/28/20 23 025 Discontin ued(Alter arn therapy) insulin degludec (TRESIBA) 200 unit/mL (3 mL) pen for injectionIndicat ions:type 2 diabetes mellitus Inject 0.18 mL (36 Units total) under the skin every morning 025 Discontin ued(Alter ran therapy) ticagrelor (BRILINTA) 90 mg tabletIndication s:cardiovascular disease Take 1 tablet (90 mg total) by mouth 2 (two) times a day 60 tablet 11 08/14/20 23 025 Discontin ued(Thera py completed ) Active Problems Problem Noted Date Diagnosed Date Paroxysmal atrial fibrillation ([facility]) 023 S/P coronary artery stent placement 07/09/2023 Chronic anticoagulation 07/09/2023 Multiple vessel coronary artery disease 05/27/20 23 Chest pain 05/24/2023 Coronary artery disease invo lving kaibab coronary artery of kaibab heart without angina pectoris 04/22/2023 Mixed diabetic hyperlipidemi a associated with type 2 diabetes mellitus 12/31/2022 Shortness of breath 12/31/2022 Pulmonary HTN 12/31/2022 Morbid (severe) obesity due to excess calories 0 03/03/2022 Body mass index 40.0-44.9, adult ([facility]) 03/03 Cognitive impairment 02/26/2022 Hypoglycemia 02/21/2022 Gout 02/21/2022 Type 2 diabetes mellitus wit h diabetic peripheral angiopathy without gangrene 02/21/2022 Venous stasis 01/29/2022 Has immunity to COVID-19 virus 08/06/2021 Overview (08/06/2021): Moderna vaccine 11/22/2020, 10/25/2020, 05/10/2021 Assessment & Plan (08/06/2021 4:37 PM BLUEPRINT ENGINEER): Moderna vaccine 11/22/2020, 10/25/2020, 05/10/2021 Otitis externa 05/08/2021 Stage 3b chronic kidney disease 10/17/2020 Assessment & Plan (05/08/2022 1:34 PM CDT): Need to minimize risk of hypoglycemia, but also extreme hyperglycemia will promote dehydration and adversely affect her kidney function. Assessment & Plan (01/30/2022 2:15 PM CDT): Need to minimize risk of hypoglycemia, but also extreme hyperglycemia will promote dehydration and adversely affect her kidney function. Assessment & Plan (08/08/2021 2:26 PM BLUEPRINT ENGINEER): Need to minimize risk of hypoglycemia, but also extreme hyperglycemia well promote dehydration and adversely affect her kidney function Assessment & Plan (06/12/2021 3:51 PM CDT): -Following with Dr. Mi -CKD increases risk of hypoglycemia -Will slowly titrate insulin and closely monitor Edema 10/17/2020 Refractive error 04/26/2020 Assessment & Plan (04/28/2023 3:12 PM CDT): Minimal change to MRx today, updated SRx. Monitor. Assessment & Plan (04/26/2020 11:25 AM CDT): Pt using +3.00 otc readers now. Has insignificant dist refractive error. Gave Rx with option of getting multifocal Rx, or may get custom reading glasses with this rx or may ct with her otc readers. Discussed little or no subjective difference with Rx vs OTC at near. Has [address] Grover- see prn sooner. 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 Symptoms have slightly improved with doxycycline as outpatient and reportedly did improve with 1 dose Vanc overnight. No SIRS/sepsis criteria. -Will plan to continue PO Doxy and Keflex for total 5d given that she has had improvement in erythema with abx. -Seen by wound geriatric psychiatrist yesterday. -Advised patient that she will need ongoing wound care and steady diuresis to see improvements. -Encouraged compliance with NIPPV for ANDREA since untreated ANDREA can contribute to MARIA TERESA and definitely has affects on her diastolic heart failure. Assessment & Plan (03/25/2019 1:28 PM CDT): Suspect venous stasis dermatitis with possible superinfection. Symptoms have slightly improved with doxycycline as outpatient and reportedly did improve with 1 dose Vanc overnight. No SIRS/sepsis criteria. -Will switch back to PO Doxy and add Keflex for better strep coverage. Plan for a 5-7d course for now. -Wound geriatric psychiatrist c/s. -Advised patient that she will need ongoing wound care and steady diuresis to see improvements. -Will diurese as above. Encouraged compliance with NIPPV for ANDREA since untreated ANDREA can contribute to MARIA TERESA and definitely has affects on her diastolic heart failure. Assessment & Plan (03/24/2019 10:32 PM CDT): -Suspect venous stasis dermatitis with possible superinfection vs bilateral cellulitis. Symptoms have slightly improved with doxycycline as outpatient. No SIRS/sepsis criteria. -s/p vanc 15 mg/kg x 1 in ED, likely transition back to PO antibiotics tomorrow. If continued on vanc, will need to be dose on 24 hr levels. -Wound consult/wound care Acute kidney injury superimposed on chronic kidn ey disease 03/24/2019 Assessment & Plan (03/26/2019 11:37 AM CDT): Cr 1.98 on admission w/ baseline Cr of 1.3-1.7. Improved with IV diuresis, now 1.7 today. -Switching to PO Bumex as above. -Will need to closely monitor renal function as outpatient as above. Assessment & Plan (03/25/2019 1:30 PM CDT): Cr 1.98 as compared to baseline Cr of 1.3-1.5. Unclear etiology. Appears volume overloaded on exam. U/A without protein. -Trial of higher dose Lasix as above. -Monitor renal function with diuresis. Assessment & Plan (03/24/2019 10:35 PM CDT): -Cr 1.98 as compared to baseline Cr of 1.3-1.5. Etiology not entirely clear although could be due to overdiuresis. -s/p Lasix 20 IV and IVF in ED. Will hold off on any further diuresis or IVF at this time and monitor. -Check U/A Chronic heart failure with p reserved ejection fraction (CMS/HCC) 03/24/2019 Assessment & Plan (03/26/2019 11:34 AM CDT): Pt with bilateral LE edema and mildly elevated pro-BNP of 457 (300 previously). Recently established with Dr. Duran who did recommend Lasix BID but patient only taking once daily. -Patient was net negative with 80IV Lasix x1 dose yesterday. -Will plan to switch to Bumex 1mg BID for better oral absorption. Did encourage patient to use it twice daily. -Will need BMP checked in 1 week at PCP appt. -Cont BB for HTN. -Encouraged her to cont to follow with sleep for her ANDREA (see below). Assessment & Plan (03/25/2019 1:26 PM CDT): Pt with bilateral LE edema and mildly elevated pro-BNP of 457 (300 previously). Recently established with Dr. Duran who did recommend Lasix BID but patient only taking once daily. -Per patient's report, she is not having much output with Lasix 40mg PO. Trial Lasix 80mg IV x1 and follow I&O with goal net neg 1L. Will see if this has affects on her renal function. -Cont BB for HTN. -Encouraged her to cont to follow with sleep for her ANDREA (see below). Assessment & Plan (03/24/2019 10:43 PM CDT): -Pt with bilateral edema of feet and mildly elevated pro-BNP, however edema could be related to venous stasis rather than CHF -s/p Lasix IV and IVF in ED. Will hold off on any further IVF or diuresis for now and monitor. Diastolic dysfunction 01/21/2019 Bipolar affective disorder 10/25/2018 Assessment & Plan (10/25/2018 9:02 PM BLUEPRINT ENGINEER): This is a 72-year-old woman with a history of depression presenting with altered mental status after being started on Depakote. Patient has had a life-long history of depressive symptoms characterized by poor mood, altered sleep/appetite, social isolation, and suicidal ideation. However, over the last few months patient appeared to have developed a full manic episode characterized by elevated mood, decreased need for sleep with conserved energy, grandiosity, hypertalkativity, increased goal-directed activities, and reckless behaviors (shopping sprees). It is unclear if the current episode was precipitated by nortriptyline monotherapy. Mental status exam today was notable for manic symptoms including elevated/labile mood with mildly pressured speech, increased amount of speech, and possible hypersexuality, in addition to MMSE of 26/30 (suggesting mild delirium given patient's educational status). Patient has had no history of significant substance use history to suggest substance-induced mood disorder. Patient is also not currently on active treatment for her breast cancer. At this time, would assign Bipolar I Affective Disorder. Recommendations: - continue excellent medical care - please obtain TSH and UDS - given patient is still mildly delirious, will not start any medication at this time - will plan for VOLUNTARY admission to Psychiatry, [facility] only, when bed is available Will formally staff these recommendations with the attending tomorrow. Thank you for the consult. Assessment & Plan (10/27/2018 10:49 AM BLUEPRINT ENGINEER): -Declined inpatient titration of depakote, experienced altered mental status and increased lethargy when initiating as outpatient at dose of 500mg BID as outpatient. Pt lives alone and would be poor candidate for repeat trial with sedating medications. -Mental status improved after holding depakote -Brain MRI performed per psychiatry recs, read pending -Psychiatry following, planning or voluntary inpatient admission to [facility] only today -TSH 1.8, UDS pending Type 2 diabetes mellitus wit h stage 3b chronic kidney disease, with long-term current use of insulin 06/30/2018 Overview (06/30/2018): Type 2 diabetes mellitus with hypoglycemia without coma - (Added by TW Conv) Assessment & Plan (05/08/2022 2:29 PM CDT): Hemoglobin A1c decreased to 9.1% in 02/2022. Continue using Dexcom for continuous monitoring and low BG alarms. She is taking Tresiba AM daily, consistently. She is taking Humalog with meals and using sliding scale. -Insulin doses were recently adjusted by Dr. Helms. Diabetes education is beneficial for her to provide closer follow up and on- going support. Assessment & Plan (01/30/2022 5:51 PM CDT): Hemoglobin A1c decreased to 9.6%, without more frequent hypoglycemia. There are no BG readings for review today. Recommend Dexcom for continuous monitoring and low BG alarms. She is taking Tresiba AM daily, consistently. She has been frequently missing Humalog with meals due to forgetting. Recommend setting alarms or reminders for Humalog dosing throughout the day to prevent hyperglycemia. Assessment & Plan (10/31/2021 6:00 PM BLUEPRINT ENGINEER): No recent Hemoglobin A1c. There are no BG readings for review today due to not using Dexcom. Recommend Dexcom for continuous monitoring and low BG alarms. She denies recent trouble with hypoglycemia. She states she has been taking Tresiba AM daily, consistently. Recommend increasing Tresiba to help gradually lower BG. She states she has been taking Humalog with meals + sliding scale, but she is unable to give me an average mealtime dose in units today. She is frustrated with her blood sugars always running high and ongoing diabetes education is beneficial for her to provide closer follow up and support. Assessment & Plan (08/08/2021 2:26 PM BLUEPRINT ENGINEER): Extremely high glucoses, so she needs much more basal and mealtime insulin. Also needs some follow-up labs Assessment & Plan (06/12/2021 3:50 PM CDT): -Currently taking multiple daily insulin injections and using Dexcom -A1C on June 12, 2021 was 10.1% - Dexcom download indicates a pattern a persistent hyperglycemia. Will increase Tresiba from 45--> 50 units daily. Will also increase her NovoLog by 5 units, to take 10-20 units with each meal. She will update me weekly on blood sugars and we will make further insulin adjustments moving forward. Will continue to hold Ozempic. -Discussed diet and activity modifictions. -Advised to call with any concerns/complaints regarding glucose readings -Eye exam is up to date, with history of retinopathy -Following with Nephrology for CKD -Recommend scheduling follow-up with the foot nurse for routine foot hygiene Assessment & Plan (03/26/2019 11:38 AM CDT): A1c 9.3%, steadily rising from priors. Home regimen is Tresiba 50 U QAM + lispro 5 to 18 U w/meals, Victoza. -Holding Victoza but will restart on d/c. -Dose reduced to Lantus 35 U QAM + lispro 8 U TID w/meals + MDSSI. Will d/c back on home regimen. Assessment & Plan (03/25/2019 1:36 PM CDT): A1c 9.3%, steadily rising from priors. Home regimen is Tresiba 50 U QAM + lispro 5 to 18 U w/meals, Victoza. -Holding Victoza but can restart on d/c. -Dose reduced to Lantus 35 U QAM + lispro 8 U TID w/meals + MDSSI. Anticipate needing to increase based on trends. Assessment & Plan (03/24/2019 10:41 PM CDT): -Check A1c -Home regimen: Tresiba 50 U QAM + lispro 5 to 18 U w/meals, Victoza -Dose reduce to Lantus 35 U QAM + lispro 8 U TID w/meals + MDSSI Assessment & Plan (10/29/2018 9:30 AM BLUEPRINT ENGINEER): Patient's glucose was elevated of 478 on admission, likely secondary to patient admitting having difficulty complying with medication due to confusion and somnolence in the setting of starting Depakote - Continue Lantus 20 units q.d., lispro 5 units t.i.d. before meals in mid dose sliding scale. Assessment & Plan (10/28/2018 8:27 AM BLUEPRINT ENGINEER): Patient's glucose was elevated of 478 on admission, likely secondary to patient admitting having difficulty complying with medication due to confusion and somnolence in the setting of starting Depakote Plan: - Continue Lantus 20 units q.d., lispro 5 units t.i.d. before meals in mid dose sliding scale. Assessment & Plan (10/28/2018 8:20 AM BLUEPRINT ENGINEER): Patient's glucose was elevated of 478 on admission, likely secondary to patient admitting having difficulty complying with medication due to confusion and somnolence in the setting of starting Depakote Plan: - Continue Lantus 20 units q.d., lispro 5 units t.i.d. before meals in mid dose sliding scale. Assessment & Plan (10/25/2018 1:35 PM BLUEPRINT ENGINEER): -Home regimen includes Tresiba 50 daily, Vitoza 1.2 daily, and humalog with meals -Hyperglycemic to 478 on admission, likely due to admitted medication noncompliance while taking Depakote -Resolved quickly after resuming insulin on admission. -Continue lantus 20 units qAM, lispro 5 units TID, mid-dose SSI Assessment & Plan (10/18/2018 7:35 AM BLUEPRINT ENGINEER): Recent event when she took her mealtime insulin and then did not eat. She needs to plan to take her insulin after eating Assessment & Plan (06/30/2018 1:50 PM CDT): Decrease Tresiba to 42 u/ day Change humalog to 5-5-10 at meals and 1 u per 25 pts over 150 Chart provided along with explanation Continue victoza 1.2 day Referral for dexcom CGM G5 as she is testing 4x/ day and taking insulin 4x/ day with hx of hypoglycemia, and poor control and multiple comorbidities See CDE in fu for Dexcom G5 and for insulin titration Advanced atrophic nonexudati ve age-related macular degeneration of right eye without subfoveal involvement 04/05/2018 Assessment & Plan (04/28/2023 3:14 PM CDT): Long discussion w/ patient about current stage of AMD including non-central GA OD. Reviewed AMD precautions including taking AREDS bid, eating green leafy vegetables, wearing UV protection outdoors, no smoking. Pt has been stable for awhile now, is on q12m visits w/ Dr. Grover. Return as scheduled 03/2024 or sooner if any changes in vision. Exudative age-related macular degeneration of le ft eye 04/05/2018 Mild nonproliferative diabet ic retinopathy of both eyes without macular edema associated with type 2 diabetes mellitus 03/22/2018 Assessment & Plan (06/12/2021 3:52 PM CDT): -Eye exam is up to date (March 2021) Vitamin D deficiency 01/25/2018 Assessment & Plan (08/08/2021 2:26 PM BLUEPRINT ENGINEER): Continue chronic supplement recheck labs Assessment & Plan (10/18/2018 7:37 AM BLUEPRINT ENGINEER): Continue supplement Assessment & Plan (04/07/2018 3:29 PM CDT): Continue increased supplement Assessment & Plan (01/25/2018 12:34 PM CDT): Continue supplementation. Repeat level today. Arthritis 01/18/2018 GERD (gastroesophageal reflux disease) 8 Assessment & Plan (10/25/2018 1:37 PM BLUEPRINT ENGINEER): -Continue protonix. ANDREA on CPAP 09/06/2015 Overview (12/12/2016): Obstructive sleep apnea Assessment & Plan (03/26/2019 11:36 AM CDT): Severe ANDREA with difficulty tolerating CPAP. Recently seen in sleep clinic with plan to decrease autoCPAP pressures. Did also just order a new face mask for better tolerance as well. -Patient declining use of hospital CPAP machine at this time. -Did reiterate importance of treating ANDREA in the setting of above issues. Assessment & Plan (03/25/2019 1:29 PM CDT): Severe ANDREA with difficulty tolerating CPAP. Recently seen in sleep clinic with plan to decrease autoCPAP pressures. Did also just order a new face mask for better tolerance as well. -Patient declining use of hospital CPAP machine at this time. -Did reiterate importance of treating ANDREA in the setting of above issues. Assessment & Plan (03/24/2019 10:37 PM CDT): -Severe ANDREA with difficulty tolerating BiPAP. Recently seen in sleep clinic with plan to decrease autoCPAP pressures. Pt declining use of hospital CPAP machine at this time. -Encourage CPAP compliance Assessment & Plan (10/29/2018 9:30 AM BLUEPRINT ENGINEER): Stable/BIBI. Patient had continued evidence of severe obstructive sleep apnea on September 2017 sleep study. - autoCPAP therapy w/ pressure 12-16 cm H2O and a small AirFit F20 full face mask. Assessment & Plan (10/28/2018 8:26 AM BLUEPRINT ENGINEER): Patient had continued evidence of severe obstructive sleep apnea on September 2017 sleep study. Plan: - Consult respiratory care for CPAP - autoCPAP therapy w/ pressure 12-16 cm H2O and a small AirFit F20 full face mask. Assessment & Plan (10/28/2018 8:20 AM BLUEPRINT ENGINEER): Patient had continued evidence of severe obstructive sleep apnea on September 2017 sleep study. Plan: - Consult respiratory care for CPAP - autoCPAP therapy w/ pressure 12-16 cm H2O and a small AirFit F20 full face mask. Assessment & Plan (01/25/2018 12:31 PM CDT): Encouraged compliance with CPAP. Bipolar disorder, unspecified 09/06/2015 Assessment & Plan (03/26/2019 11:37 AM CDT): -Cont home Depakote and Nortriptyline. -Cont outpt psychiatry follow up. Assessment & Plan (03/25/2019 1:30 PM CDT): -Cont home Depakote and Nortriptyline. -Cont outpt psychiatry follow up. Assessment & Plan (03/24/2019 10:36 PM CDT): -Cont Depakote 250 and nortriptyline -Cont outpatient psychiatry follow up Assessment & Plan (10/29/2018 9:46 AM BLUEPRINT ENGINEER): For now, we will be working w/ provisional dx of bipolar disorder unspecified. Somewhat unclear if pt had a manic vs hypomanic episode preceding her hospitalization, but our concern is nonetheless significant. Pt has a hx of well documented sustained depressive episodes w/ collateral revealing she has been spending excessive amounts of money on items on sale after [employer] and an excessive amount of time redecorating her house (wanting to make it a [employer] next year) and working on numerous new pieces of art. These projects have caused her to stay awake for 1-2 days at a time, and she endorses a decreased need for sleep during these ? bursts of activity? . 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 (Again , this is rather complicated by the irregular sleep cycles, occasional bursts of activity w/ decreased need for sleep, and increased money spending during discrete week-long periods that constitute her baseline.) Overall, family and patient are unsure if her most recent project was a significant departure from her bsl but are amenable to a trial of VPA. We suspect her present hospitalization was preceded by delirium secondary to sedation from VPA and hyperglycemia from missing insulin doses. Plan: - VPA 250 qAM, 500 qpm has been tolerated well so far - Plan to increase to 500 qAM and 1000 qPM - Follow up with Dr. Andrade's group outpatient Assessment & Plan (10/29/2018 9:30 AM BLUEPRINT ENGINEER): For now, we will be working w/ provisional dx of bipolar disorder unspecified. Somewhat unclear if pt had a manic vs hypomanic episode preceding her hospitalization. Pt has a hx of well documented sustained depressive episodes w/ collateral revealing she has been spending excessive amounts of money on items on sale after [employer] and an excessive amount of time redecorating her house (wanting to make it a [employer] next year) and working on numerous new pieces of art. These projects have caused her to stay awake for 1-2 days at a time, and she endorses a decreased need for sleep during these ? bursts of activity? . 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 (Again , most of her life has consisted of irregular sleep cycles, occasional bursts of activity w/ decreased need for sleep, increased money spending during discrete week-long periods, etc.) Overall, family and patient are unsure if her most recent project was a significant departure from her bsl but are amenable to a trial of VPA. We suspect her present hospitalization was preceded by delirium secondary to sedation from VPA and hyperglycemia from missing insulin doses. Plan: - VPA 250 qAM, 500 qpm - Can obtain level outpatient Assessment & Plan (10/28/2018 8:23 AM BLUEPRINT ENGINEER): Patient has persistent difficulty discarding or parting with possessions regardless of actual value (candle, fluorescent light bulb vs furniture). Patient has difficulty discarding items because there is a perceived need associated with these items (patient mostly hoarding art supplies and clothing). Patient has difficulty discarding possession which result in accumulation of possessions in active living areas (patient notes that she currently has too much stuff). Patient reports that she most often hoards art supplies and art tools. Differential includes MDD w/ OCD traits, Bipolar disorder type II, Delirium due to another medical condition (patient had elevated glucose and hypertensive episode on admission), psychosis secondary to dementia (patient has some memory issue and visual spatial difficulties) however less likely given patient denies any history of psychotic symptoms and denies any current episodes depressed mood or anhedonia. Patient current presentation could be secondary to a manic episode however patient endorses changes for sleep but without preserved energy, hypertalkativity, no clear increase in goal-directed activities as patient has significant hoarding behaviors that complicate this manic picture. Plan: - Collateral from family regarding patients hoarding behaviors - Hold Depakote for now given unclear if patients current presentation is secondary to aren Assessment & Plan (10/28/2018 8:16 AM BLUEPRINT ENGINEER): Patient has persistent difficulty discarding or parting with possessions regardless of actual value (candle, fluorescent light bulb vs furniture). Patient has difficulty discarding items because there is a perceived need associated with these items (patient mostly hoarding art supplies and clothing). Patient has difficulty discarding possession which result in accumulation of possessions in active living areas (patient notes that she currently has too much stuff). Patient reports that she most often hoards art supplies and art tools. Differential includes MDD w/ OCD traits, Bipolar disorder type II, Delirium due to another medical condition (patient had elevated glucose and hypertensive episode on admission), psychosis secondary to dementia however less likely given patient denies any history of psychotic symptoms and denies any current episodes depressed mood or anhedonia. Patient current presentation could be secondary to a manic episode however patient endorses changes for sleep but without preserved energy, hypertalkativity, no clear increase in goal-directed activities as patient has significant hoarding behaviors that complicate this manic picture. Plan: - Collateral from family regarding patients hoarding behaviors - Hold Depakote for now given unclear if patients current presentation is secondary to aren Restless legs syndrome 09/06/2015 Overview (12/12/2016): Restless leg syndrome Assessment & Plan (03/26/2019 11:37 AM CDT): -Cont home pramipexole. Assessment & Plan (03/25/2019 1:31 PM CDT): -Cont home pramipexole. Assessment & Plan (03/24/2019 10:36 PM CDT): -Cont pramipexole Assessment & Plan (10/29/2018 9:30 AM BLUEPRINT ENGINEER): Stable/BIBI. 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 Refer to ENT if no better. Renal osteodystrophy 06/01/2019 019 Confusion 10/25/2018 10/28/2018 Assessment & Plan (10/25/2018 3:09 AM BLUEPRINT ENGINEER): Psychological condition is improving with treatment. Her confusion is largely resolved. Concern is that she lives alone and if taking the depakote and is too sleepy, then she would still need to care for herself at home. Patient with a history of bipolar disease to see a new psychiatrist next week. Will hold evening depakote dose at this time (she would have gotten at 1-2 am). Primary osteoarthritis invol ving multiple joints 10/15/2018 10/28/2018 Overview (10/15/2018): tylenol as needed. History of breast cancer 08/10/2018 Pseudophakia of left eye 06/17/2018 Assessment & Plan (06/23/2018 10:43 AM CDT): POW 1 s/p EXTRACTION CATARACT - PHACOEMULSIFICATION AND LENS IMPLANT - Left By Healing well. Some mile residual descemet folds. Oflox/ket through the weekend then stop. Taper pred forte 4-3-2-1. Keep f/u with Drs. Watt and Lenore as scheduled. Assessment & Plan (06/17/2018 1:34 PM CDT): Assessment: POD1 status post (s/p) phaco/iol EXTRACTION CATARACT - PHACOEMULSIFICATION AND LENS IMPLANT - Left 06/16/[address] Watt Doing well. Some mild residual edema. Plan: Post op instructions and precautions reviewed. Use Ofloxacin, Prednisolone acetate 1% and Ketorolac 0.5% to operative eye QID Shield for sleep. Call with any decrease in vision or increase in pain. Combined forms of age-relate d cataract of left eye 05/05/2018 10/28/2018 Overview (05/05/2018): Added automatically from request for surgery [id number] Right posterior capsular opacification 04/05/2018 10/28/2018 Corneal dellen of right eye 04/05/2018 10/28/2018 Primary osteoarthritis of left knee 04/02/2018 10/28/2018 Other chronic pain 04/02/2018 9 Early dry stage nonexudative age-related macular degeneration of right eye 03/22/20182018 Primary osteoarthritis of both knees 01/25/2018 10/28/2018 Statin myopathy 01/25/2018 10/28/2018 Assessment & Plan (01/25/2018 12:32 PM CDT): Advised to decrease consumption of animal based products. Class 2 severe obesity due t o excess calories with serious comorbidity and body mass index (BMI) of 36.0 to 36.9 in adult 01/25/2018 9 Assessment & Plan (01/25/2018 12:32 PM CDT): Obesity is worsening. Discussed the patient's BMI. The BMI is above average; BMI management plan is completed. General weight loss/lifestyle modification strategies discussed (elicit support from others; identify saboteurs; non-food rewards, etc). Diet interventions: moderate (500 kCal/d) deficit diet. Atherosclerosis of aortic arch 01/25/2018 10/28/2018 Assessment & Plan (01/25/2018 12:33 PM CDT): Intolerant of statin. Continue aspirin. Elevated serum creatinine 01/25/2018 Assessment & Plan (01/25/2018 12:33 PM CDT): Creatinine fluctuates between 1.1 to 1.5 depending on dehydration/fluid status. Continue to monitor. Chemotherapy-induced neuropathy 01/25/2018 10/28/2018 Assessment & Plan (01/25/2018 12:33 PM CDT): Monitor. Check feet daily. Stage 4 chronic kidney disease (CMS/HCC) 01/25/2018 10/17/2020 Assessment & Plan (10/27/2018 10:50 AM BLUEPRINT ENGINEER): -Creatinine 1.50 on admission, increased to 1.70. Will empirically give 1L NS and hold lasix Assessment & Plan (10/18/2018 7:34 AM BLUEPRINT ENGINEER): Increased risk of hypoglycemia Assessment & Plan (01/25/2018 12:34 PM CDT): Renal condition is unchanged. Continue current treatment regimen. Renal condition will be reassessed in 6 months. Fatigue 01/18/2018 10/28/2018 Zelda esophagitis ([facility]/HCC) 12/11/2017 10/28/2018 Depression, recurrent (CMS/HCC) 08/24/2017 10/28/2018 Assessment & Plan (01/25/2018 12:30 PM CDT): Psychological condition is improving with treatment. Continue current treatment regimen. Psychological condition will be reassessed at the next regular appointment. Valgus deformity of great toe 08/07/2017 10/28/2018 Chronic obstructive pulmonary disease 10/30/2016 04/01/2019 Assessment & Plan (10/25/2018 1:35 PM BLUEPRINT ENGINEER): -Continue home spiriva, symbicort, albuterol Knee pain 09/11/2016 10/28/2018 Posterior vitreous detachment 06/25/2016 10/28/2018 Combined forms of age-related cataract 06/25/2016 07/05/2018 Diabetic peripheral neuropathy ([facility]/HCC) 11/29/2015 10/28/2018 Overview (12/12/2016): Type 2 diabetes, controlled, with neuropathy Assessment & Plan (04/07/2018 3:27 PM CDT): Clinically stable, but need to optimize glycemic control Nuclear senile cataract 09/19/201510/09 Exudative age-related macula r degeneration of left eye with active choroidal neovascularization 09/19/2015 10/28/2018 Type 2 diabetes, uncontrolle d, with neuropathy 09/06/2015 10/28/2018 Overview (12/12/2016): Type 2 diabetes mellitus with stage 3 chronic kidney disease Assessment & Plan (10/18/2018 7:36 AM BLUEPRINT ENGINEER): Glucoses tend to be too high, but with improving mealtime safety she needs a greater amount of basal insulin Assessment & Plan (01/25/2018 12:31 PM CDT): Diabetes is unchanged. Continue current treatment regimen. Dietary recommendations for ADA diet. Diabetes will be reassessed next appointment. Discussed foot care. Mixed incontinence 09/06/2015 9 Overview (12/12/2016): Mixed incontinence Recurrent major depressive disorder 09/06/2015 10/28/2018 Overview (12/12/2016): Major depression, recurrent, chronic Benign hypertension with CKD (chronic kidney disease) stage III 09/06/2015 02/15/2020 Overview (12/12/2016): Hypertensive kidney disease with chronic kidney disease stage II Assessment & Plan (04/28/2019 5:03 PM CDT): Continue to monitor. Continue same medications at this time. Assessment & Plan (10/27/2018 10:50 AM BLUEPRINT ENGINEER): -Coreg 6.25 BID -> 12.5mg BID Assessment & Plan (04/07/2018 3:27 PM CDT): Increased risk of hypoglycemia. Need to maintain a good margin of glycemic safety Blood pressure within target, managed by renal skilled nursing current use of insulin ([facility]) 09/06/2015 10/28/2018 Overview (12/12/2016): Insulin long-term use Mild chronic obstructive pulmonary disease 09/06/2015 10/28/2018 Overview (12/12/2016): Mild chronic obstructive pulmonary disease Osteosclerosis 02/19/2015 10/28/2018 Tear film insufficiency 07/22/201310/09 Type 2 diabetes mellitus, un controlled, with renal complications 01/20/2013 10/29/2018 Assessment & Plan (06/30/2018 1:51 PM CDT): Cr stable at 1.34 Assessment & Plan (04/07/2018 3:26 PM CDT): She needs a more consistent, safer insulin regimen so we will change to Tresiba and increase mealtime insulin just a little to minimize the risk of hypoglycemia. She would also benefit from being able to use CGM Bone density finding 11/02/2012 019 Overview (12/12/2016): Abnormal bone density screening Actinic keratosis 08/04/2012 10/28/2018 Immunizations Name Administration Dates Next Due Influenza, Quadrivalent, Hig h Dose, Preservative Free, Intrr 06/06/2020 Influenza, Quadrivalent, Spl it, Preservative Free, Intramuscular 07/03/2015 Influenza, Trivalent, High D ose, Split, Preservative Free, Intramuscular 05/17/2019,05/30/2017,07/03/2016,05/03,04/30/2014 Influenza, Trivalent, IM (MDV) 05/03/2014,2011,06/07/2011 Influenza, Trivalent, Preser vative Free, Intramuscular 06/30/2016,06/07/2011,07/08/2010 Influenza, Unspecified 06/07/2021,07/06/2018, Moderna SARS-CoV-2 Monovalen t Vaccination (12+ YRS) 05/10/2021,11/22/2020,10/25/2020 Pneumococcal Conjugate PCV 13 07/03/2015 Pneumococcal Polysaccharide PPV23 09/07/2012,09/2009 Tdap 08/12/2011 ZOSTER LIVE 09/07/2012 Social History Tobacco Use Types Packs/Day Years Used Date Smoking Tobacco: Never Passive Smoke Exposure: Past Smokeless Tobacco: Never Tobacco Cessation:Counseling Given: Not Answered Alcohol Use Standard Drinks/Week Comments No 0 (1 standard drink = 0.6 oz pur e alcohol) OASIS D0700: Social Isolation Answer Da te Recorded Frequency of experiencing loneliness or isolatio n Sometimes 07/24/2023 OASIS A1250: Transportation Answer Date Recorded Lack of Transportation (Medical) No 07/24/2023 Lack of Transportation (Non-Medical) No 07/24/2023 Patient Unable or Declines to Respond No 07/24/2023 OASIS B1300: Health Literacy Answer Chan e Recorded Frequency of needing help to read materials from doctor or pharmacy Sometimes 07/24/2023 Social Connection and Isolat ion Panel [NHANES] Answer Date Recorded In a typical week, how many times do you talk on the phone with family, friends, or neighbors? More than three times a week 05/25/2023 How often do you get togethe r with friends or relatives? Three times a week 05/25/2023 How often do you attend chur ch or jehovah's witness services? Never 05/25/2023 Do you belong to any clubs o r organizations such as orthodox groups, unions, fraternal or athletic groups, or school groups? No 05/25/2023 How often do you attend meet ings of the clubs or organizations you belong to? Never 05/25/2023 Are you , , di vorced, , never , or living with a partner? 05/25/2023 AUDIT-C Answer Date Recorded Q1: How often do you have a drink containing alc ohol? Never 06/17/2023 Average Number of Drinks Not on file 023 Frequency of Binge Drinking Not on file 06/07 Overall Financial Resource Strain (CARDIA) Answe r Date Recorded How hard is it for you to pa y for the very basics like food, housing, medical care, and heating? Somewhat hard 05/25/2023 PHQ-2 Answer Date Recorded PHQ-2 Total Score (If total score is 3 or more points, staff should administer the PHQ-9) 2 03/03/2022 Hunger Vital Sign Answer Date Recorded Within the past 12 months, y ou worried that your food would run out before you got the money to buy more. Never true 05/25/20 23 Within the past 12 months, t he food you bought just didn't last and you didn't have money to get more. Never true 05/25/2023 PRAPARE - Transportation Answer Date Re corded Lack of Transportation (Medical) Not on file 05/25/2023 In the past 12 months, has l ack of transportation kept you from meetings, work, or from getting things needed for daily living? No 05/25/2023 Housing Stability Vital Sign Answer Chan e Recorded In the last 12 months, was t here a time when you were not able to pay the mortgage or rent on time? Yes 05/25/2023 In the last 12 months, how many places have you lived? 1 05/25/2023 In the last 12 months, was t here a time when you did not have a steady place to sleep or slept in a group home (including now)? No 05/25/2023 Personal Safety Answer Date Recorded Have you ever been in or are you currently in a harmful physical or emotional relationship or is someone making you feel afraid or unsafe? Denies 06/17/2023 Comments No Sex and Gender Information Value Date Recorded Sex Assigned at Not on file Legal Sex Female 7:43 PM BLUEPRINT ENGINEER Gender Identity Female 07/19/2020 11:39 AM BLUEPRINT ENGINEER Sexual Orientation Not on file Last Filed Vital Signs Vital Sign Reading Time Taken Comments Blood Pressure 82/54 09/20/2024 9:10 AM BLUEPRINT ENGINEER Pulse 99 09/20/2024 9:10 AM BLUEPRINT ENGINEER Temperature 36.6 ??C (97.9 ??F) 07/21/2023 12:[address] Respiratory Rate 18 07/21/2023 12:00 AM BLUEPRINT ENGINEER Oxygen Saturation 92% 09/20/2024 9:10 AM BLUEPRINT ENGINEER Inhaled Oxygen Concentration - - Weight 105.7 kg (233 lb) 09/20/2024 9:10 AM BLUEPRINT ENGINEER Height 165.1 cm (5' 5 ) 09/20/2024 9:10 AM BLUEPRINT ENGINEER Body Mass Index 38.77 09/20/2024 9:10 AM BLUEPRINT ENGINEER Plan of Treatment Not on file Goals Goal Patient Goal Type Associated Problems Recent Progress Patient-Stated? Author SONIA General Goal - Patient schedules and keeps appointments with all recommended providers ACO Care Management On track(03/25 11:26 AM CDT) Bhavya Pérez, RN Note: Problem: Potential for medical complications and readmission if follow-up appointments are not scheduled Interventions: - Ensure all follow-up appointments are scheduled, all prescribed medications have been received. - Address any barriers for keeping scheduled appointment. - Coordinate with patient/caregiver(s) to ensure patient is able to keep scheduled appointment. - Emphasize importance of keeping scheduled appointments. - Identify and discuss questions for next provider visit. - Follow up with patient after scheduled appointment(s) to review any new orders or changes made to medication regimen. SONIA General Goal - Patient / caregiver verbalizes lifestyle changes necessary to meet self-care needs and executes self-care activities to utmost capability ACO Care Management On track(03/25 11:26 AM CDT) Bhavya Pérez, RN Note: Problem: At Risk for Self Care Deficit Interventions: - Assess patient's level of dependence on others. Guide the patent in accepting the needed amount of dependence. - Contact current caregiver and assess their involvement with patient and level of assistance provided. - Assess appropriateness for Home Health. Start referral process if skilled need is present. - Encourage independent ADL's as appropriate. Ensure patient has the appropriate tools at home to be as independent as possible. - Provide fall prevention education to patient and caregiver. - Evaluate need for assistive devices. - Refer to SW if appropriate and patient is agreeable. Medical Devices Implanted Type Area Soil Scientist Device Identifier Shelf Expiration Date Model / Serial / Lot [employer] [id number] 22.0 Tecnis Optiedge 6mm 13mm 3 Piece Anterior Aspheric Monofocal Uv - [id number] - [id number] Implanted:Qty: 1 on 06/16/2018 by Grazyna Watt MD at [facility] Advanced Medicine Lens Left: Eye [employer] [id number] 01/21/2021 [id number] 22.0 / [id number] / 0 [employer] Synergy Xd Monorail 2.25mm 38mm 144cm Delivery System 1 Access [id number] - [id number] Implanted:Qty: 1 on 06/17/2023 by Brody Rouse MD at [facility] [employer] 11/02/2024 [id number] / / [id number] [employer] Synergy Xd Monorail 2.5mm 12mm 144cm Delivery System 1 Access [id number] - [id number] Implanted:Qty: 1 on 06/17/2023 by Brody Rouse MD at [facility] [employer] [facility] 02/24/2025 [id number] / / [id number] [employer] Sushil Synergy Xd Monorail 3mm 16mm 144cm Delivery System 1 Access Port [id number] - [id number] Implanted:Qty: 1 on 06/17/2023 by Brody Rouse MD at [facility] [employer] [facility] 07/08/2024 [id number] / / [id number] [facility] Louis Angio-Seal Vip 6fr Closere Device [id number] - [id number] Implanted:Qty: 1 on 06/17/2023 by [email or web address] 02/12/2024 [id number] / / [id number] Procedures Procedure Name Priority Date/Time Associated Diagnosis Comments CARDIOLOGY DOCUMENT SCAN Routine 08/25/2024 12:25 PM BLUEPRINT ENGINEER CARDIOLOGY DOCUMENT SCAN Routine 08/24/2024 12:14 PM BLUEPRINT ENGINEER CARDIOLOGY DOCUMENT SCAN Routine 08/22/2024 8:56 AM BLUEPRINT ENGINEER CARDIOLOGY DOCUMENT SCAN Routine 08/13/2024 2:24 PM BLUEPRINT ENGINEER CARDIOLOGY DOCUMENT SCAN Routine 08/12/2024 9:01 AM BLUEPRINT ENGINEER CARDIOLOGY DOCUMENT SCAN Routine 07/24/2024 12:18 PM BLUEPRINT ENGINEER CARDIOLOGY DOCUMENT SCAN Routine 07/24/2024 12:12 PM BLUEPRINT ENGINEER CARDIOLOGY DOCUMENT SCAN Routine 07/23/2024 11:13 AM BLUEPRINT ENGINEER CARDIOLOGY DOCUMENT SCAN Routine 07/22/2024 11:11 AM BLUEPRINT ENGINEER COMPREHENSIVE METABOLIC PANEL Routine 08/17/2023 1:40 PM BLUEPRINT ENGINEER skilled nursing current use of amiodarone HEMOGLOBIN A1C Routine 05/25/2023 10:14 AM CDT LIPID PANEL Routine 05/14/2023 1:26 PM CDT Lipid screening ALBUMIN CREATININE RATIO, URINE Routine 11/11/2021 1:55 PM BLUEPRINT ENGINEER Type 2 diabetes mellitus with stage 3b chronic kidney disease, with long-term current use of insulin (HCC) DEXA AXIAL SKELETON BONE DENSITY 1 OR MORE SITES Schedule Routine, Read Routine (OP Routine) 07/19/2020 10:24 AM BLUEPRINT ENGINEER Postmenopausal SCREENING MAMMOGRAM LEFT W OLMAN UNILATERAL ONLY Schedule Routine, Read Routine (OP Routine) 08/10/2018 3:28 PM BLUEPRINT ENGINEER Encounter for screening mammogram for malignant neoplasm of breast COLONOSCOPY REPORT 12/09/2017 HEPATITIS C ANTIBODY Routine 07/27/2017 10:01 AM BLUEPRINT ENGINEER Encounter for hepatitis C screening test for low risk patient from Last 3 Months or Most Recently Relevant to Health Maintenance Results * Cardiology Document Scan (08/25/2024 12:25 PM BLUEPRINT ENGINEER) Anatomical Region Laterality Modality Other us Campbell Shin MD [facility] CARDIAC SERVICES PROCEDURES F inal Result * Cardiology Document Scan (08/24/2024 12:14 PM BLUEPRINT ENGINEER) Anatomical Region Laterality Modality Other Zhanna Alfonso MD CV CARDIAC SERVICES PRO CEDURES Final Result * Cardiology Document Scan (08/22/2024 8:56 AM BLUEPRINT ENGINEER) Anatomical Region Laterality Modality Other us Campbell Shin MD CV CARDIAC SERVICES PROCEDURES F inal Result * Cardiology Document Scan (08/13/2024 2:24 PM BLUEPRINT ENGINEER) Anatomical Region Laterality Modality Other us Christiano Mai MD CV CARDIAC SERVICES PROCEDU RES Final Result * Cardiology Document Scan (08/12/2024 9:01 AM BLUEPRINT ENGINEER) Anatomical Region Laterality Modality Other us Zhanna Alfonso MD CV CARDIAC SERVICES PRO CEDURES Final Result * Cardiology Document Scan (07/24/2024 12:18 PM BLUEPRINT ENGINEER) Anatomical Region Laterality Modality Other us Campbell Shin MD CV CARDIAC SERVICES PROCEDURES F inal Result * Cardiology Document Scan (07/24/2024 12:12 PM BLUEPRINT ENGINEER) Anatomical Region Laterality Modality Other Result [facility] Campbell Shin MD CV CARDIAC SERVICES PROCEDURES F inal Result * Cardiology Document Scan (07/23/2024 11:13 AM BLUEPRINT ENGINEER) Anatomical Region Laterality Modality Other Result [facility] Campbell Shin MD CV CARDIAC SERVICES PROCEDURES F inal Result * Cardiology Document Scan (07/22/2024 11:11 AM BLUEPRINT ENGINEER) Anatomical Region Laterality Modality Other Zhanna Alfonso MD CV CARDIAC SERVICES PRO CEDURES Final Result * (ABNORMAL) Comprehensive metabolic panel (08/17/2023 1:40 PM BLUEPRINT ENGINEER) Glucose 143(H) 65 - 139 mg/dL [facility] Comment: ? Non-fasting reference interval BUN 34(H) 7 - 25 mg/dL [facility] Creatinine 1.74(H) 0.60 - 1.00 mg/dL [facility] eGFR 30(L) > OR = 60 mL/min/1.7 3m2 [facility] BUN/creat ratio 20 6 - 22 (calc) [facility] Sodium 139 135 - 146 mmol/L [facility] Potassium, pl 4.0 3.5 - 5.3 mmol/L [facility] Chloride 103 98 - 110 mmol/L [facility] CO2 30 20 - 32 mmol/L [facility] Calcium 9.2 8.6 - 10.4 mg/dL [facility] Protein, sr 7.1 6.1 - 8.1 g/dL [facility] Albumin 3.8 3.6 - 5.1 g/dL [facility] GLOBULIN 3.3 1.9 - 3.7 g/dL (calc) [facility] Alb/glob ratio 1.2 1.0 - 2.5 (calc) [facility] Bilirubin, total 0.2 0.2 - 1.2 mg/dL [facility] Alk phos 106 37 - 153 U/L [facility] AST 10 10 - 35 U/L [facility] ALT (SGPT) 10 6 - 29 U/L [facility] Blood 08/17/2023 1:40 PM BLUEPRINT ENGINEER 08/17/2023 1:41 PM BLUEPRINT ENGINEER Narrative [facility] - 08/19/2023 2:31 PM BLUEPRINT ENGINEER FASTING:NO FASTING: NO Kimberly Abernathy NP LAB BLOOD ORDERABLES Claire l Result Performing Organization Address City/[facility] Co de Phone Number [facility] [address] [place] [address] * (ABNORMAL) Hemoglobin A1c (05/25/2023 10:14 AM CDT) Hgb A1C 9.2(H) 4.0 - 5.6 % [facility] Estimated Average Glucose 217 mg/dL [facility] Comment: The ADA recommends reporting an estimated Average Glucose (eAG) with all Hemoglobin A1c results using the equation derived from a study of 507 normal and diabetic adults. ??Minority populations were underrepresented and children were not included. ?? (Diabetes Care 31:2194-8884, 2008). ??The eAG is not equivalent to a fasting glucose. Blood 05/25/2023 10:1 4 AM CDT 05/25/2023 10:29 AM CDT Quinton Hooks MD LAB BLOOD ORDERABLES Final Result Performing Organization Address [facility] Co de Phone Number [facility] [address] Department [place] [address] * (ABNORMAL) Lipid panel (05/14/2023 1:26 PM CDT) Cholesterol 221(H) <200 mg/dL [facility] HDL 50 > OR = 50 mg/dL [facility] Triglycerides 205(H) <150 mg/dL [facility] Comment: If a non-fasting specimen was collected, consider repeat triglyceride testing on a fasting specimen if clinically indicated. Dharmesh et al. J. of Clin. Lipidol. 2015;9:129-169. LDL 137(H) mg/dL (calc) [facility] Comment: Reference range: <100 Desirable range <100 mg/dL for primary prevention; ?? <70 mg/dL for patients with CHD or diabetic patients with > or = 2 CHD risk factors. LDL-C is now calculated using the Megan calculation, which is a validated novel method providing better accuracy than the Friedewald equation in the estimation of LDL-C. Jaron SS et al. GERALD. 2013;310(19): 2900-7451 (http://education.Vantrix/faq/JAJ357) Chol/HDL ratio 4.4 <5.0 (calc) [facility] Non-HDL, (LDL+VLDL) 171(H) <130 mg/dL (calc) [facility] Comment: For patients with diabetes plus 1 major ASCVD risk factor, treating to a non-HDL-C goal of <100 mg/dL (LDL-C of <70 mg/dL) is considered a therapeutic option. Blood 05/14/2023 1:26 PM CDT 05/14/2023 1:27 PM CDT Result [facility] Brody Rouse MD LAB BLOOD ORDERABLES Final Result Performing Organization Address [facility] Co de Phone Number [facility] [address] [place] [address] * Albumin Creatinine Ratio, Urine (11/11/2021 1:55 PM BLUEPRINT ENGINEER) Albumin Ur <12.0 mg/L [facility] Comment: Interpretive Data No reference range established. Current interpretive data was last revised 2019. Creatinine Ur 44.0 mg/dL [facility] Comment: Interpretive Data No reference range established. Current interpretive data was last revised 2019. Albumin Creatinine Ratio, Ur <27 1 - 29 mg/g [facility] Urine 11/11/2021 1:55 PM BLUEPRINT ENGINEER 11/11/2021 4:47 PM BLUEPRINT ENGINEER Patricia GOYAL LAB URINE ORDERABLES Final Result Performing Organization Address City/[facility] Co de Phone Number [facility] Department [place] [address] * Dexa Axial Skeleton Bone Density 1 or 2 Site (07/19/2020 10:24 AM BLUEPRINT ENGINEER) Anatomical Region Laterality Modality Body N/A Radiographic [facility] Narrative 07/19/2020 6:22 PM BLUEPRINT ENGINEER Patient Name: Aleksandra Berman Date of : 1945 Date of scan: 07/19/2020 Bone mineral density was performed on a [employer] Discovery Densitometer. ?? Machine Cross-calibration and Precision studies have been performed with a least significant change of 0.024 g/cm at the spine, 0.020 g/cm at the total proximal femur, and 0.014g/cm at the forearm. HISTORY: ??This is a 74 y.o. postmenopausal female with a history of breast cancer and vitamin D deficiency. Currently on treatment with vitamin D. Previously treated with glucocorticoids. With a current complaint of back and leg pain. History of tobacco use: Social History Tobacco Use Smoking Status Never Smoker INDICATIONS: Menopause status, history of glucocorticoids use and vitamin D deficiency. FINDINGS: BONE MINERAL DENSITY OF THE LUMBAR SPINE Bone Mineral Density (BMD) of the lumbar spine was measured from L1-L4 and the average density was calculated to be 1.319 gm/cm2. This corresponds to a T-score standard deviations from the mean of young adults of 2.5. When compared to the previous study of 02/19/2015 there has been a measured 0.075 gm/cm 6.0% increase which is considered significant. BONE MINERAL DENSITY OF THE PROXIMAL FEMUR Bone Mineral Density (BMD) of the left hip total was found to be 1.227 gm/cm2. This corresponds to a T-score standard deviations from the mean of young adults of 2.3. Femoral neck is 0.802 gm/cm2 with a T-score of -0.4. When compared to the previous study of 02/19/2015 there has been a measured -0.101 gm/cm -7.6% decrease which is considered significant. SUMMARY: Bone mineral density is near the young adult normal mean with no increased risk for fracture. There is a significant increase noted in the spine and a significant decrease noted in the hip since the previous exam. ADDITIONAL COMMENTS: If the patient has a history of a fragility fracture, a fracture that occurred with trauma equivalent to a fall from a standing position or less, then the diagnosis is osteoporosis. The risk of osteoporotic fracture increases approximately 2-fold for each 1.0 SD decrease in T-score. However, low bone density is not the only risk factor for fracture. Other factors include patient? s age, previous osteoporotic fracture or prior fracture as an adult, loss of height of greater than 2 inches, corticosteroid use, risk of falling, risk of injury, and family history of osteoporosis. Not everyone with low bone mineral density has osteoporosis. Osteomalacia and other metabolic bone disorders should also be considered where indicated. ??Patients who have osteoporosis should be evaluated for specific diseases and conditions (secondary causes) that may cause or contribute to bone loss. Consider repeating this study in 1-2 years to assess the patient? s response to treatment, if applicable. It is recommended that any follow up exam be performed on the same machine if possible for better accuracy. DEFINITIONS: Osteoporosis: ??BMD at or below -2.5 T-score Osteopenia (low bone mass): ??BMD between -1.0 and-2.5 T-score. The Bone Health Program adopts the following WHO definitions: Osteoporosis: ??BMD below -2.5 S.D. as compared to the BMD of young normal adults. Osteopenia or Low Bone Mass: ??BMD between -1.0 and -2.5 S.D. below the BMD of young normal adults. Normal Bone Density: ??BMD equal to or greater than -1.0 S.D. as compared to the BMD of young normal adults. References: 1) Quan, Annals of Internal Medicine 114(11): ??919-923 (1990) 2) Jones, Lancet 341 : 72-75 (1992) 3) Black, Journal Bone and Mineral Research 7(6): 633-8 (1991) 4) Everardo, Journal Bone and Mineral Research 8(10):1227-33 (1992) The history and data sections of the bone mineral density scan were prepared by [employer] (R))(MYRA), CBDT who is accredited by the International Society of Clinical Densitometry. The overall patient assessment and scan interpretation were performed by Boston Cruz MD who is certified by the International Society of Clinical Densitometry. [id number] us Dayanna Odonnell MD IMG DXA PROCEDURES Fin al Result * Screening Mammograpm Left W Olman Unilateral Only (08/10/2018 3:28 PM BLUEPRINT ENGINEER) Anatomical Region Laterality Modality Breast Left Mammography Narrative 08/11/2018 10:42 AM BLUEPRINT ENGINEER Mammogram Technique: Left Breast Digital Breast Tomosynthesis, Unilateral C-view 2D Screening mammogram. ??Views obtained: ??left craniocaudal and left mediolateral oblique. ??Computer Aided Detection was performed. Mammogram Findings: The present examination has been compared to prior imaging studies performed at [facility] on 01/30/2015, 02/26/2016 and 05/12/2017. There are scattered areas of fibroglandular density. There is no suspicious abnormality in the left breast. Patient has personal history of reduction mammoplasty in the left breast. Patient status post contralateral mastectomy for personal history of breast cancer. Impression: Finding in the left breast is benign. Annual screening mammography is recommended. OVERALL FINAL ASSESSMENT: BI-RADS CATEGORY 2: ??Benign. Procedure Note Manjinder Gómez MD - 08/11/2018 Mammogram Technique: Left Breast Digital Breast Tomosynthesis, Unilateral C-view 2D Screening mammogram. Views obtained: left craniocaudal and left mediolateral oblique. Computer Aided Detection was performed. Mammogram Findings: The present examination has been compared to prior imaging studies performed at [facility] on 01/30/2015, 02/26/2016 and 05/12/2017. There are scattered areas of fibroglandular density. There is no suspicious abnormality in the left breast. Patient has personal history of reduction mammoplasty in the leftbreast. Patient status post contralateral mastectomy for personal history ofbreast cancer. Impression: Finding in the left breast is benign. Annual screening mammography is recommended. OVERALL FINAL ASSESSMENT: BI-RADS CATEGORY 2: Benign. us Melly Tang MD IMG MAMMO PROCEDURES Fi nal Result * COLONOSCOPY REPORT (12/09/2017) Anatomical Region Laterality Modality Other us Provider Scanning GI PROCEDURE ORDERABLES Final Result * Hepatitis C antibody (07/27/2017 10:01 AM BLUEPRINT ENGINEER) Hep C Ab Nonreactive Nonreactive [facility] Comment: Interpretive Data Positive and greyzone results should be confirmed by a molecular method. If positive or greyzone, a second separately collected sample should be submitted for Hepatitis C Virus RNA. Detection and Quantitation by Real-Time Reverse Senior Developer-PCR.Current Interpretive data was last revised on 2017. Blood specimen (specimen) 07/27/2017 10:01 AM BLUEPRINT ENGINEER 07/27/2017 12:52 PM BLUEPRINT ENGINEER us Dayanna Odonnell MD LAB MICROBIOLOGY - GEN ERAL ORDERABLES Edited Result - Final [facility] Department [place] [address] from Last 3 Months or Most Recently Relevant to Health [place] [address] MEDICARE [facility] MEDICARE [employer] MEDICARE SUPPLEMENT MEDICARE [facility] Advance Directives For more information, please contact: [phone] * LIMITED - No CPR (Latest Code Status on File) Date Activated Date Inactivated Comments 06/17/2023 9:00 PM 06/18/2023 8:49 PM Question Answer Comments Provide aggressive medical m anagement before a full cardiopulmonary arrest occurs. Use antibiotics, IV Fluids, and medical treatment unless specifically selected below: No intubationNo cardioversion * LIMITED - PEDIATRICS Date Activated Date Inactivated Comments 06/17/2023 8:59 PM 06/17/2023 8:59 PM Question Answer Comments Restrictions: No chest compression sNo intubation / mechanical ventilationNo cardioversion / defibrillation * Full Code Date Activated Date Inactivated Comments 06/17/2023 1:54 PM 06/17/2023 8:59 PM * LIMITED - No CPR Date Activated Date Inactivated Comments 05/24/2023 12:01 PM 05/28/2023 9:49 PM Question Answer Comments Provide aggressive medical m anagement before a full cardiopulmonary arrest occurs. Use antibiotics, IV Fluids, and medical treatment unless specifically selected below: No intubation Discussed with the following attending physician : * Full Code Date Activated Date Inactivated Comments 02/21/2022 11:15 PM 02/27/2022 12:34 AM Care Teams Meringuer Relationship Specialty Start Date End Date Sarbjit Lai MD [address] [place] [address] PCP - General Family Medicine 08/28/22 Samantha Upton NP Nurse Practitioner Internal Medicine 03/23/19 Mook Duran MD PhD [address] [place] [address] Referring Physician Cardiology 03/23/19 Mohan Mi MD [address] [place] [address] Referring Physician Nephrology 08/10/19 Maricarmen Helms MD [address] [place] [address] Referring Physician Endocrinology Diabetes & Metabolism 08/08/21 Nicolasa Jackson NP [address] [place], [place] [id number] Nurse Practitioner Nurse Practitioner 08/08/21
--- OUTSIDE RECORDS SUMMARY | 2024-10-05 21:08 | XMS_ITS ---
Author Organization [facility] Address [address] [place] [address] Care Team Providers Care House Cleaner Supervisor Name Role Phone Samantha Upton NP Unavailable [phone] Mook Duran MD PhD Unavailable [phone] Mohan Mi MD Unavailable Maricarmen Helms MD Unavailable Nicolasa Jackson PLUGGING MACHINE OPERATOR Unavailable [phone] Sarbjit Lai MD Primary Care Provider [phone] Active Problems Problem Noted Date Diagnosed Date Paroxysmal atrial fibrillation ([facility]) 023 S/P coronary artery stent placement 07/09/2023 Chronic anticoagulation 07/09/2023 Multiple vessel coronary artery disease 05/27/20 23 Chest pain 05/24/2023 Coronary artery disease invo lving [place] coronary artery of [place] heart without angina pectoris 04/22/2023 Mixed diabetic hyperlipidemi a associated with type 2 diabetes mellitus 12/31/2022 Shortness of breath 12/31/2022 Pulmonary HTN 12/31/2022 Morbid (severe) obesity due to excess calories 0 03/03/2022 Body mass index 40.0-44.9, adult ([facility]) 03/03 Cognitive impairment 02/26/2022 Hypoglycemia 02/21/2022 Gout 02/21/2022 Type 2 diabetes mellitus wit h diabetic peripheral angiopathy without gangrene 02/21/2022 Venous stasis 01/29/2022 Has immunity to COVID-19 virus 08/06/2021 Overview (08/06/2021): Moderna vaccine 11/22/2020, 10/25/2020, 05/10/2021 Assessment & Plan (08/06/2021 4:37 PM QUAHOGGER): Moderna vaccine 11/22/2020, 10/25/2020, 05/10/2021 Otitis externa [...] function. Assessment & Plan (08/08/2021 2:26 PM QUAHOGGER): Need to minimize risk of hypoglycemia, but [...] (03/12/2020): Added automatically from request for surgery [id number] History of esophagitis 03/12/2020 Overview (03/12/2020): Added automatically from request for surgery [id number] Morbid obesity with BMI of 40.0-44.9, adult [...] in erythema with abx. -Seen by wound wafer abrading machine tender yesterday. -Advised patient that she will need [...] for a 5-7d course for now. -Wound wafer abrading machine tender c/s. -Advised patient that she will need [...] 10/25/2018 Assessment & Plan (10/25/2018 9:02 PM QUAHOGGER): This is a 72-year-old woman with a [...] will plan for VOLUNTARY admission to Psychiatry, [facility] only, when bed is available Will formally staff these recommendations with the attending tomorrow. Thank you for the consult. Assessment & Plan (10/27/2018 10:49 AM QUAHOGGER): -Declined inpatient titration of depakote, experienced altered mental status and increased lethargy when initiating as outpatient at dose of 500mg BID as outpatient. Pt lives alone and would be poor candidate for repeat trial with sedating medications. -Mental status improved after holding depakote -Brain MRI performed per psychiatry recs, read pending -Psychiatry following, planning or voluntary inpatient admission to [facility] only today -TSH 1.8, UDS pending Type [...] hyperglycemia. Assessment & Plan (10/31/2021 6:00 PM QUAHOGGER): No recent Hemoglobin A1c. There are no [...] support. Assessment & Plan (08/08/2021 2:26 PM QUAHOGGER): Extremely high glucoses, so she needs much [...] MDSSI Assessment & Plan (10/29/2018 9:30 AM QUAHOGGER): Patient's glucose was elevated of 478 on admission, likely secondary to patient admitting having difficulty complying with medication due to confusion and somnolence in the setting of starting Depakote - Continue Lantus 20 units q.d., lispro 5 units t.i.d. before meals in mid dose sliding scale. Assessment & Plan (10/28/2018 8:27 AM QUAHOGGER): Patient's glucose was elevated of 478 on admission, likely secondary to patient admitting having difficulty complying with medication due to confusion and somnolence in the setting of starting Depakote Plan: - Continue Lantus 20 units q.d., lispro 5 units t.i.d. before meals in mid dose sliding scale. Assessment & Plan (10/28/2018 8:20 AM QUAHOGGER): Patient's glucose was elevated of 478 on admission, likely secondary to patient admitting having difficulty complying with medication due to confusion and somnolence in the setting of starting Depakote Plan: - Continue Lantus 20 units q.d., lispro 5 units t.i.d. before meals in mid dose sliding scale. Assessment & Plan (10/25/2018 1:35 PM QUAHOGGER): -Home regimen includes Tresiba 50 daily, Vitoza 1.2 daily, and humalog with meals -Hyperglycemic to 478 on admission, likely due to admitted medication noncompliance while taking Depakote -Resolved quickly after resuming insulin on admission. -Continue lantus 20 units qAM, lispro 5 units TID, mid-dose SSI Assessment & Plan (10/18/2018 7:35 AM QUAHOGGER): Recent event when she took her mealtime [...] 01/25/2018 Assessment & Plan (08/08/2021 2:26 PM QUAHOGGER): Continue chronic supplement recheck labs Assessment & Plan (10/18/2018 7:37 AM QUAHOGGER): Continue supplement Assessment & Plan (04/07/2018 3:29 PM CDT): Continue increased supplement Assessment & Plan (01/25/2018 12:34 PM CDT): Continue supplementation. Repeat level today. Arthritis 01/18/2018 GERD (gastroesophageal reflux disease) 8 Assessment & Plan (10/25/2018 1:37 PM QUAHOGGER): -Continue protonix. ANDREA on CPAP 09/06/2015 Overview [...] compliance Assessment & Plan (10/29/2018 9:30 AM QUAHOGGER): Stable/BIBI. Patient had continued evidence of severe obstructive sleep apnea on September 2017 sleep study. - autoCPAP therapy w/ pressure 12-16 cm H2O and a small AirFit F20 full face mask. Assessment & Plan (10/28/2018 8:26 AM QUAHOGGER): Patient had continued evidence of severe obstructive sleep apnea on September 2017 sleep study. Plan: - Consult respiratory care for CPAP - autoCPAP therapy w/ pressure 12-16 cm H2O and a small AirFit F20 full face mask. Assessment & Plan (10/28/2018 8:20 AM QUAHOGGER): Patient had continued evidence of severe obstructive [...] up Assessment & Plan (10/29/2018 9:46 AM QUAHOGGER): For now, we will be working w/ [...] outpatient Assessment & Plan (10/29/2018 9:30 AM QUAHOGGER): For now, we will be working w/ [...] her house (wanting to make it a [employer] next year) and working on numerous [...] outpatient Assessment & Plan (10/28/2018 8:23 AM QUAHOGGER): Patient has persistent difficulty discarding or parting [...] aren Assessment & Plan (10/28/2018 8:16 AM QUAHOGGER): Patient has persistent difficulty discarding or parting [...] pramipexole Assessment & Plan (10/29/2018 9:30 AM QUAHOGGER): Stable/BIBI. -Continue home pramipexole 0.5mg nightly (patient reports she usually takes two at home) Assessment & Plan (10/28/2018 8:27 AM QUAHOGGER): -Continue home pramipexole 0.5mg nightly (patient reports she usually takes two at home) Assessment & Plan (10/28/2018 8:17 AM QUAHOGGER): -Continue home pramipexole 0.5mg nightly (patient reports she usually takes two at home) Assessment & Plan (10/25/2018 1:36 PM QUAHOGGER): -Continue home pramipexole 0.5mg nightly Carcinoma of breast 04/03/2011 Overview (12/17/2017): Description: Right; T2N0 triple negative high-grade; neoadjuvant dose-dense AC 4 cycles; R simple mastectomy Current Oncology Plans No current plan information found. Past Plans No past plan information found. Radiation Treatments * No radiation treatments are documented for this patient in [facility]. Treatments may have been administered in another system. Lifetime Dose Tracking * Chemical Lifetime Dose Automatic Entry Manual Entr y Fluoro Time 1.083 minutes 1.083 minutes 0 minutes Air kerma at the reference point (Ka,r) 1,545.65 mGy 2 .65 mGy 1,543 mGy Resolved Problems Problem Noted Date Diagnosed Date Resolved Date Coronary artery disease due to lipid rich plaque 06/17/2023 07/09/2023 Hyperlipidemia 02/21/2022 07/09/2023 Impacted cerumen of left ear 05/08/2021 08/06/2021 Overview (05/08/2021): Debrox drops recommended. Refer to ENT if no better. Renal osteodystrophy 06/01/2019 019 Confusion 10/25/2018 10/28/2018 Assessment & Plan (10/25/2018 3:09 AM QUAHOGGER): Psychological condition is improving with treatment. Her [...] PHACOEMULSIFICATION AND LENS IMPLANT - Left By HK Healing well. Some mile residual descemet folds. [...] (05/05/2018): Added automatically from request for surgery [id number] Right posterior capsular opacification 04/05/2018 10/28/2018 Corneal [...] feet daily. Stage 4 chronic kidney disease ([facility]) 01/25/2018 10/17/2020 Assessment & Plan (10/27/2018 10:50 AM QUAHOGGER): -Creatinine 1.50 on admission, increased to 1.70. Will empirically give 1L NS and hold lasix Assessment & Plan (10/18/2018 7:34 AM QUAHOGGER): Increased risk of hypoglycemia Assessment & Plan (01/25/2018 12:34 PM CDT): Renal condition is unchanged. Continue current treatment regimen. Renal condition will be reassessed in 6 months. Fatigue 01/18/2018 10/28/2018 Zelda esophagitis ([facility]) 12/11/2017 10/28/2018 Depression, recurrent ([facility]) 08/24/2017 10/28/2018 Assessment & Plan (01/25/2018 12:30 PM CDT): Psychological condition is improving with treatment. Continue current treatment regimen. Psychological condition will be reassessed at the next regular appointment. Valgus deformity of great toe 08/07/2017 10/28/2018 Chronic obstructive pulmonary disease 10/30/2016 04/01/2019 Assessment & Plan (10/25/2018 1:35 PM QUAHOGGER): -Continue home spiriva, symbicort, albuterol Knee pain 09/11/2016 10/28/2018 Posterior vitreous detachment 06/25/2016 10/28/2018 Combined forms of age-related cataract 06/25/2016 07/05/2018 Diabetic peripheral neuropathy ([facility]) 11/29/2015 10/28/2018 Overview (12/12/2016): Type 2 diabetes, controlled, with neuropathy Assessment & Plan (04/07/2018 3:27 PM CDT): Clinically stable, but need to optimize glycemic control Nuclear senile cataract 09/19/20152 09/2018 Exudative age-related macula r degeneration of left eye with active choroidal neovascularization 09/19/2015 10/28/2018 Type 2 diabetes, uncontrolle d, with neuropathy 09/06/2015 10/28/2018 Overview (12/12/2016): Type 2 diabetes mellitus with stage 3 chronic kidney disease Assessment & Plan (10/18/2018 7:36 AM QUAHOGGER): Glucoses tend to be too high, but [...] time. Assessment & Plan (10/27/2018 10:50 AM QUAHOGGER): -Coreg 6.25 BID -> 12.5mg BID Assessment & Plan (04/07/2018 3:27 PM CDT): Increased risk of hypoglycemia. Need to maintain a good margin of glycemic safety Blood pressure within target, managed by renal USP current use of insulin ([facility]) 09/06/2015 10/28/2018 Overview (12/12/2016): Insulin [...]
--- OUTSIDE RECORDS SUMMARY | 2024-10-05 21:08 | XMS_ITS | Encounter Summary ---
Author Organization [facility] Address [address] [place] [address] Care Team Providers Care Diabetes Education Coordinator Name Role Phone Dayanna Odonnell MD Primary Care Provider Samantha Upton NP Unavailable [phone] Mook Duran MD PhD Unavailable [phone] Venice Dobbs RN Unavailable [phone] Mohan Mi MD Unavailable Maricarmen Helms MD Unavailable Nicolasa Jackson DIE SINKER APPRENTICE Unavailable Bhavya Browne RN Unavailable [phone] Unknown, Notinfile Primary Care Provider Unavail Sarbjit Zambrano MD Primary Care Provider [phone] Reason for Visit * Reason Onset Date Comments Appointment 03/22/2018 Encounter Details Date Type Department Care Team (Late st Contact Info) Description 03/22/2018 Telephone [facility] [place] [place] [facility] [address] [facility] [address] [place] [address] Quita Dee MD [address] [place] [address] Appointment Social History Tobacco Use Types Packs/Day Years Used Date Smoking Tobacco: Never Smokeless Tobacco: Never Alcohol Use Standard Drinks/Week Comments No 0 (1 standard drink = 0.6 oz pur e alcohol) Comments Unknown Sex and Gender Information Value Date Recorded Sex Assigned at Not on file Legal Sex Female 7:43 PM MEMBERSHIP MANAGER Gender Identity Female 07/19/2020 11:39 AM MEMBERSHIP MANAGER Sexual Orientation Not on file documented as of this encounter Plan of Treatment Not on file documented as of this encounter Visit Diagnoses Not on filedocumented in this encounter Additional Health Concerns Infection Onset Date Last Indicated Resolved Time COVID: Suspected 08/14/2020 08/14/2020 08/28/2020 3:07 AM MEMBERSHIP MANAGER documented as of this encounter Care Teams Diabetes Education Coordinator Relationship Specialty Start Date End Date Dayanna Odonnell MD PCP - General 12/05/16 06/22/22 Unknown, Notinfile PCP - General 06/23/22 08/27/22 Sarbjit Lai MD PCP - General Family Medicine 08/28/22 Samantha Upton NP Nurse Practitioner Internal Medicine 03/23/19 Mook Duran MD PhD [address] [place] [address] Referring Physician Cardiology 03/23/19 Venice Dobbs RN [address] [place] [address] [address] [place] [address] Biochemistry Teacher 04/28/19 01/08/21 Mohan Mi MD [address] [place] [address] [address] [place] [address] Referring Physician Nephrology 08/10/19 Maricarmen Helms MD [address] [place] [address] Referring Physician Endocrinology Diabetes & Metabolism 08/08/21 Nicolasa Jackson NP [address] [place] [address] Nurse Practitioner Nurse Practitioner 08/08/21 Bhavya Browne, RN [address] [place] [id number] Biochemistry Teacher 02/27/22 03/24/22 documented as of this encounter
--- OUTSIDE RECORDS SUMMARY | 2024-10-05 21:08 | XMS_ITS | Clinical Summary ---
Author Organization [facility] Address [address] [place] [address]. [place] [address] Care Team Providers Care Route Sales Specialist Name Role Phone Unavailable Primary Care Provider Unavailabl e Immunizations Name Administration Dates Next Due MODERNA COVID-19 (12+) MRNA, LNP-S, PF, 100 MCG/ 0.5 ML DOSE 11/22/2020,10/25/2020 Social History Tobacco Use Types Packs/Day Years Used Date Smoking Tobacco: Never Assessed Comments Unknown Sex and Gender Information Value Date Recorded Sex Assigned at Not on file Legal Sex Female 12:41 PM ENROLLED AGENT Gender Identity Not on file Sexual Orientation Not on file Plan of Treatment Health Maintenance Due Date Last Done Comments Hepatitis C 1963 DTaP, Tdap and Td Vaccines ( 1 - Tdap) 1965 Zoster Vaccines (1 of 2) 1996 Dexa Scan (General) 12/24/2011 Pneumococcal Vaccine: 65+ Years (1 of 1 - PCV) 12/24/2011 RSV Immunization or 60+ Years (1 - 1-dose 75+ series) 2021 COVID-19 Vaccine (3 - 2023-2 5 season) 2024 11/22/2020, 10/25/2020 Influenza Adult (#1) 2024 06/06/2020 Meningococcal B Vaccine Aged Out No l onger eligible based on patient's age to complete this topic Meningococcal Vaccine Aged Out No ximena herlinda eligible based on patient's age to complete this topic RSV Immunizations Under 20 Months Aged Out No longer eligible b ased on patient's age to complete this topic
--- OUTSIDE RECORDS SUMMARY | 2024-10-05 21:09 | XMS_ITS | Patient Health Record ---
Author Organization [facility] Address [address] [place] [address] Care Team Providers Care Floral Department Specialist Name Role Phone Pia Orozco PA-C Primary Care Provider Unavailab Madhav Padgett Unavailable [phone] Migration, Provider Unavailable Unavailable Allergies Allergen (clinical drug ingredient) Drug/Non Drug Allergy documented on EMR Reaction Allergy Type Onset Date Status Non-steroidal anti-inflammatory agent (FN) NSAIDS (NON-STEROIDAL ANTI-INFLAMMATORY DRUG) (uncoded) Unknown Allergy Active Substance with 6-hveeeyu-7-methylgluta ryl-coenzyme A reductase inhibitor mechanism of action (substance) [id number] REDUCTASE INHIBITORS (uncoded) Unknown Allergy Active atenolol Atenolol Unknown Drug Allergy Active Exenatide Unknown Drug Allergy Active prochlorperazine Prochlorperazine Unknown Drug Allergy Active hydrocodone Hydrocodone Unknown Drug Allergy Act gómez oxycodone Oxycodone Unknown Drug Allergy Active pseudoephedrine Pseudoephedrine Unknown Drug Allergy Active Reason For Referral No Information Medications Medication SIG (Take, Route, Frequency, Duration) Notes Start Date End Date Status Nystatin 920239 UNIT/GM External Active Bumetanide 2 MG Oral Acti ve busPIRone HCl 15 MG Oral Active Clindamycin HCl 300 MG Oral Active Aspirin Adult Low Strength 81 MG Oral Active ProAir HFA 108 (90 Base) MCG/ACT Inhalation Active Sulfamethoxazole-Trime thoprim 800-160 MG Oral Active Trospium Chloride 20 MG Oral Active Isosorbide Dinitrate 10 MG Oral Active Pramipexole Dihydrochloride 0.25 MG Oral Active INSULIN DEGLUDEC (U-200) 200 UNIT/ML (3 ML) SUBCUTANEOUS PEN *Reorder from [facility] for eRx and Interaction Alerts* Active Divalproex Sodium ER 500 MG Oral Active Ciprofloxacin HCl 500 MG Oral Active Carvedilol 25 MG Oral Act gómez Repatha SureClick 140 mg/mL Subcutaneous Active Eliquis 5 MG Oral Active Losartan Potassium 25 MG Oral Active Omeprazole 20 MG Oral Act gómez HumaLOG KwikPen 100 UNIT/ML Subcutaneous Active Gabapentin 100 MG Oral Ac tive Carvedilol 6.25 MG Oral A ctive Cephalexin 500 MG Oral Ac tive ONETOUCH VERIO REFLECT METER *Reorder from [facility] for eRx and Interaction Alerts* Active Famotidine 20 MG Oral Act ógmez Amiodarone HCl 400 MG Oral Active Tresiba FlexTouch 200 UNIT/ML Subcutaneous Active HumuLIN R U-500 KwikPen 500 unit/mL (3 mL) Subcutaneous *Pick strength-form from [facility] for eRX* Active Brilinta 90 MG Oral Activ e Amiodarone HCl 200 MG Oral Active Allopurinol 100 MG Oral A ctive Venlafaxine HCl ER 150 MG Oral Active Amoxicillin-Pot Clavulanate 875-125 MG Oral Activ e Social History Sex Assigned At : Social History Observation Description Sex Assigned At Female Encounters Encounter Location Date Provider Diagnosis [facility] [place] [address] [facility] [address] [place] [address] [facility] [place] [address] [facility] [address] [place] [address] 08/19/2024 Madhav [facility] [place] [address] [place] [address] 01/23/2024 Provider Migration [facility] [place] [address] [place] [address] 01/24/2024 Provider Migration Plan Of Treatment No Information Insurance Providers Payer Name Payer Address Payer Phone Subscriber Number Group Number Insured Name Patient Relationship to Insured Coverage Start Date Coverage End Date Medicare-[place] Medicare [address] [place] [phone] [id number] MIKE KOWALSKI Self - patient is the insured [place] [address] [place] [address] [id number] MIKE KOWALSKI Self - patient is the insured Medical (General) History Medical History History ICD Code Anxiety Anemia Depression DM HTN Hypothyroidism Mixed HLD ANDREA
--- OUTSIDE RECORDS SUMMARY | 2024-10-05 21:09 | XMS_ITS | Encounter Summary ---
Author Organization [facility] Address [address] [place] [address] Phone Care Team Providers Care Options Advisor Name Role Phone Dayanna Odonnell MD Primary Care Provider Samantha Upton NP Unavailable [phone] Mook Duran MD PhD Unavailable Venice Dobbs RN Unavailable Mohan Mi MD Unavailable Maricarmen Helms MD Unavailable Nicolasa Jackson CRIPPLE WORKER Unavailable Bhavya Browne RN Unavailable [phone] Unknown, Notinfile Primary Care Provider Unavail able Sarbjit Lai MD Primary Care Provider Encounter Details Date Type Department Care Team (Late st Contact Info) Description 08/08/2019 Telephone [facility] [address] [facility] 8[address] [place] [address] [place] [address] Mook Duran MD PhD [address] [facility] [address] [place] [address] Social History Tobacco Use Types Packs/Day Years Used Date Smoking Tobacco: Never Smokeless Tobacco: Never Alcohol Use Standard Drinks/Week Comments No 0 (1 standard drink = 0.6 oz pur e alcohol) PHQ-2 Answer Date Recorded PHQ-2 Score 5 04/27/2019 Comments No Sex and Gender Information Value Date Recorded Sex Assigned at Not on file Legal Sex Female 7:43 PM CUFF MAKER Gender Identity Female 07/19/2020 11:39 AM CUFF MAKER Sexual Orientation Not on file documented as of this encounter Plan of Treatment Not on file documented as of this encounter Visit Diagnoses Not on filedocumented in this encounter Additional Health Concerns Infection Onset Date Last Indicated Resolved Time COVID: Suspected 08/14/2020 08/14/2020 08/28/2020 3:07 AM CUFF MAKER documented as of this encounter Care Teams Options Advisor Relationship Specialty Start Date End Date Dayanna Odonnell MD PCP - General 12/05/16 06/22/22 Unknown, Notinfile PCP - General 06/23/22 08/27/22 Sarbjit Lai MD PCP - General Family Medicine 08/28/22 Samantha Upton NP Nurse Practitioner Internal Medicine 03/23/19 Mook Duran MD PhD [facility] [address] [place] [address] Referring Physician Cardiology 03/23/19 Venice Dobbs RN [address] [place] [address] [address] [place] [address] Maintenance Truck Driver 04/28/19 01/08/21 Mohan Mi MD [address] [place] [address] [address] [place] [address] Referring Physician Nephrology 08/10/19 Maricarmen Helms MD [address] [place] [address] [address] [place] [address] Referring Physician Endocrinology Diabetes & Metabolism 08/08/21 Nicolasa Jackson NP [address] [place] [address] [address] [place] [address] Nurse Practitioner Nurse Practitioner 08/08/21 Bhavya Browne, RN [address] [place] [address] [place] [address] Maintenance Truck Driver 02/27/22 03/24/22 documented as of this encounter
--- OUTSIDE RECORDS SUMMARY | 2024-10-05 21:09 | XMS_ITS ---
Author Organization [facility] Address [facility] [facility] [address] [facility] [address] [place] [address] Care Team Providers Care Supervisor Cured Meats Name Role Phone Pia Orozco PA-C Primary Care Provider UnavailIsh Roger Unavailable [phone] Social History Sex Assigned At : Social History Observation Description Sex Assigned At Female Encounters Encounter Location Date Provider Diagnosis [facility] [place] [address] [address] [facility] [address] [facility] [address] [place] [address] 08/19/2024 Ish Kelsey Plan Of Treatment No Information Progress Notes * MIKE KOWALSKI LDOB: [birth year] (78 yo F)Acc No.[id number]:08/19/2024 Patient:MIKE POE Provider:?ISH KELSEY MD :1945???Age:78 Y???Sex:Female D ate:08/19/2024 Address:[address] [place] [address] [address] [facility] Pcp:Pia Orozco PA-C Subjective: * Chief Complaints: * ??? * Medical History:? Objective: * Vitals:? Assessment: Plan: * Treatment: * Procedure Codes:?NS NO SHOW * Billing Information: * Visit Code:? * Procedure Codes:? NS NO SHOW. * STRENGTH INSPECTOR Sign off status: Completed true * Provider:?ISH KELSEY MD Date:?08/19 Generated for Khris becerra/Camilo/Domingo on:?10/05/2024 09:08 PM ACID STRENGTH INSPECTOR
--- OUTSIDE RECORDS SUMMARY | 2024-10-05 21:09 | XMS_ITS ---
Author Organization [facility] [email or web address] [facility] Address [facility] [address] [facility] [address] [place] [address] Care Team Providers Care Cancer Genetic Counselor Name Role Phone Pia Orozco PA-C Primary Care Provider Ish Burger Unavailable [phone] Social History Sex Assigned At : Social History Observation Description Sex Assigned At Female Encounters Encounter Location Date Provider Diagnosis [facility] [place] [address] [facility] [address] [facility] [address] [place] [address] 04/28/2024 Ish Kelsey Plan Of Treatment No Information Progress Notes * MIKE KOWALSKI LDOB: 7 (78 yo F)Acc No.[id number]:04/28/2024 Patient:?MIKE KOWALSKI Provider:?ISH KELSEY MD :1945???Age:78 Y???Sex:Female D ate:04/28/2024 Address:[address] [place] [address] [address] [facility] Subjective: * Chief Complaints: * ??? * Medical History:? Objective: * Vitals:? Assessment: Plan: * Treatment: * Procedure Codes:?NS NO SHOW * Billing Information: * Visit Code:? * Procedure Codes:? NS NO SHOW. * Sign off status: Completed true * Provider:?ISH KELSEY MD Date:?04/28 Generated for Annettai mariam/Camilo/eTransmitting on:?10/05/2024 09:08 PM JUKEBOX COIN COLLECTOR
--- OUTSIDE RECORDS SUMMARY | 2024-10-05 21:09 | XMS_ITS | Referral Summary ---
Author Organization [facility] Address [address] [place] [address] Care Team Providers Care Leisure Travel Agent Name Role Phone Margaux Eduardo MD Primary Care Provider [phone] Source Comments [facility],non-owned Affiliates and Associated Physician Practices is amultiple site organization consisting of ambulatory clinics and hospital sitesin [place], [place], [place] and [place]. This disclosure is being madepursuant to the Care Everywhere program and may not contain all information available regarding this patient. Last updated 18.[facility] [employer] Social History Tobacco Use Types Packs/Day Years Used Date Smoking Tobacco: Never Assessed Sex and Gender Information Value Date Recorded Sex Assigned at Not on file Gender Identity Not on file Sexual Orientation Not on file Plan of Treatment Not on file Care Teams Leisure Travel Agent Relationship Specialty Start Date End Date Margaux Eduardo MD [id number] [place] [address] PCP - General 08/12/22
--- OUTSIDE RECORDS SUMMARY | 2024-10-05 21:09 | XMS_ITS | Clinical Summary ---
Author Organization [facility] Address [address] [place] [address] Phone Care Team Providers Care Computer Systems Manager Name Role Phone Sarbjit Lai MD Primary Care Provider [phone] Allergies Active Allergy Reactions Criticality Noted Date Comments Atenolol muscle pain,Shortness of breath High 02/24/2022 Other reaction(s): Mental status changes, Syncope Reaction: Syncope/Low BP, ??Myalgia, ??Short of breath, ??Mental Status Changes, ?? Exenatide Diarrhea Low 07/27/2017 Hydrocodone-Acetaminophen Itching Low 06/12/2022 Nsaids 02/27/2022 Oxycodone 02/24/2022 Oxycodone-Acetaminophen Itching Low 06/12/2022 Prochlorperazine Anxiety,Itching Low 02/24/2022 Rice Other (see comments) Low 02/28/2020 Heart burn Statins 02/24/2022 Medications Medication Sig Dispensed Refills Start Date End Date Status allopurinol (ZYLOPRIM) 100 MG tablet Take 100 mg by mouth 1 (one) time each day 04/03/2022 Active amLODIPine (NORVASC) 5 MG tablet TAKE 1 TABLET (5 MG TOTAL) BY MOUTH DAILY. 04/02/2022 Active bumetanide (BUMEX) 2 MG tablet Take 2 mg by mouth 2 (two) times a day 04/02/2022 Active carvedilol (COREG) 25 MG tablet Take 25 mg by mouth 2 (two) times a day with meals 04/02/2022 Active divalproex (DEPAKOTE) 500 MG EC tablet Take 500 mg by mouth every night 04/02/2022 Active gabapentin (NEURONTIN) 100 MG capsule TAKE 1 CAPSULE BY MOUTH THREE TIMES A DAY 04/02/2022 Active Insulin Lispro, 1 Unit Dial, 100 UNIT/ML solution pen-injector 04/30/2022 Active omeprazole (PriLOSEC) [address] capsule Take by mouth 1 (one) time each day 04/02/2022 Active pramipexole (MIRAPEX) 0.25 MG tablet 04/27/2022 Active trospium (SANCTURA) 20 MG tablet Take 20 mg by mouth 2 (two) times a day 04/02/2022 Active venlafaxine XR (EFFEXOR-XR) 150 MG 24 hr capsule TAKE 1 CAPSULE BY MOUTH DAILY WITH BREAKFAST. 04/02/2022 Active venlafaxine XR (EFFEXOR-XR) 75 MG 24 hr capsule TAKE 1 CAPSULE BY MOUTH ONCE DAILY IN COMBINATION WITH THE 150 MG CAPSULE. TOTAL DAILY DOSE 225 MG 04/11/2022 Active Active Problems Problem Noted Date Diagnosed Date Morbid (severe) obesity due to excess calories 0 03/03/2022 Chronic diastolic congestive heart failure 02/27 Gastro-esophageal reflux disease without esophag itis 02/27/2022 Obstructive sleep apnea 02/27/2022 Type 2 diabetes mellitus with diabetic neuropath y 02/27/2022 Impaired cognition 02/26/2022 Anemia in chronic kidney disease 02/21/2022 Body mass index (BMI) 39.0-39.9, adult Chronic kidney disease stage 3B 02/21/2022 Gout 02/21/2022 Hyperlipidemia 02/21/2022 Hypertensive heart disease with heart failure FPC current use of insulin 02/21/2022 Personal history of malignant neoplasm of breast 02/21/2022 Restless legs syndrome (RLS) 02/21/2022 Type 2 diabetes mellitus wit h diabetic chronic kidney disease 02/21/2022 Type 2 diabetes mellitus with hypoglycemia witho ut coma 02/21/2022 Type 2 diabetes mellitus wit h diabetic peripheral angiopathy without gangrene 02/21/2022 Venous insufficiency (chronic) (peripheral) 02/05 Hypoglycemia 02/21/2022 Venous stasis 01/29/2022 Edema 10/17/2020 Disorder of refraction 04/26/2020 Overview (06/12/2022): Last Assessment & Plan: Pt using +3.00 otc readers now. Has insignificant dist refractive error. Gave Rx with option of getting multifocal Rx, or may get custom reading glasses with this rx or may ct with her otc readers. Discussed little or no subjective difference with Rx vs OTC at near. Has [address] Grover- see prn sooner. 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 Chronic diastolic heart failure 03/24/2019 Overview (06/12/2022): Last Assessment & Plan: Pt with bilateral LE edema and mildly [...] with sleep for her ANDREA (see below). Stasis dermatitis 03/24/2019 Overview (06/12/2022): Last Assessment & Plan: Suspect venous stasis dermatitis with possible superinfection. Symptoms have slightly improved with doxycycline as outpatient and reportedly did improve with 1 dose Vanc overnight. No SIRS/sepsis criteria. -Will plan to continue PO Doxy and Keflex for total 5d given that she has had improvement in erythema with abx. -Seen by wound bariatric program coordinator yesterday. -Advised patient that she will need ongoing wound care and steady diuresis to see improvements. -Encouraged compliance with NIPPV for ANDREA since untreated ANDREA can contribute to MARIA TERESA and definitely has affects on her diastolic heart failure. Diastolic dysfunction 01/21/2019 Insulin treated type 2 diabetes mellitus 018 Overview (06/12/2022): Type 2 diabetes mellitus with hypoglycemia without coma - (Added by TW Conv) Last Assessment & Plan: Hemoglobin A1c decreased to 9.6%, without more frequent hypoglycemia. There are no BG readings for review today. Recommend Dexcom for continuous monitoring and low BG alarms. She is taking Tresiba AM daily, consistently. She has been frequently missing Humalog with meals due to forgetting. Recommend setting alarms or reminders for Humalog dosing throughout the day to prevent hyperglycemia. 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 Thank you for the consult. Last Assessment & Plan: -Cont home Depakote and Nortriptyline. -Cont outpt psychiatry follow up. 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; neoadjuvant dose-dense AC 4 cycles; R simple mastectomy Immunizations Name Administration Dates Next Due Influenza (IM) Preservative Free 06/30/2016,09/2010,07/08/2010 Influenza Split High Dose Pr eservative Free IM 06/06/2020,05/17/2019,05/30/2017,07/03,05/03/2014,04/30/2014 Influenza TIV (IM) 05/03/2014,05/07/2012, 011 Influenza, Injectable, Quadr ivalent, Preservative Free 07/03/2015 Influenza, Unspecified 06/07/2021,07/06/2018, Moderna Sars-cov-2 Vaccination 05/10/2021 Pneumococcal Conjugate 13-Valent 07/03/2015 Pneumococcal Polysaccharide 09/07/2012, 0 Tdap 08/12/2011 Zoster 09/07/2012 Family History Medical History Relation Comments COPD Father Diabetes mellitus Father Heart disease Father Hypertension Father Depression Mother Lung cancer Mother Relation Status Comments Father Mother Social History Tobacco Use Types Packs/Day Years Used Date Smoking Tobacco: Never Smokeless Tobacco: Never Alcohol Use Standard Drinks/Week Comments Not Currently 0 (1 standard drink = 0.6 oz pur e alcohol) Sex and Gender Information Value Date Recorded Sex Assigned at Not on file Gender Identity Not on file Sexual Orientation Not on file Last Filed Vital Signs Vital Sign Reading Time Taken Comments Blood Pressure 118/62 05/01/2022 10:19 AM CDT Pulse - - Temperature 36.1 ??C (97 ??F) 05/01/2022 10:19 AM CDT Respiratory Rate 18 05/01/2022 10:19 AM CDT Oxygen Saturation - - Inhaled Oxygen Concentration - - Weight 115 kg (253 lb 6.4 oz) 05/01/2022 10:19 A M CDT Height 167.6 cm (5' 6 ) 05/01/2022 10:19 AM CDT Body Mass Index 40.9 05/01/2022 10:19 AM CDT Plan of Treatment Health Maintenance Due Date Last Done Comments COVID-19 Vaccine (4 - 2022-2 4 season) 2024 05/10/2021, 11/22/2020, 10/25/2020 Influenza Vaccine (#1) 2024 , 07/06/2018, 05/31/2017, Additional history exists Pneumococcal PPSV23/PCV13 65 + Years / High and Highest Risk Completed 07/03/2015, 09/07/2012, 07/08/2010 Care Teams Computer Systems Manager Relationship Specialty Start Date End Date Sarbjit Lai MD [address] [place] [address] PCP - General Family Medicine 03/12/22
--- OUTSIDE RECORDS SUMMARY | 2024-10-05 21:09 | XMS_ITS | Encounter Summary ---
Author Organization [facility] Healthcare Address [address] [place] [address] Care Team Providers Care Fish Salter Name Role Phone WonSamantha KACEY Unavailable [phone] Mook Duran MD PhD Unavailable [phone] Mohan Mi MD Unavailable Maricarmen Helms MD Unavailable [phone] Nicolasa Jackson NP Unavailable [phone] Sarbjit Lai MD Primary Care Provider [phone] Encounter Details Date Type Department Care Team (Late st Contact Info) Description 10/09/2023 Orders Only [facility] Health Information Management [address] [place] [id number] Scanning, Provider Social History Tobacco Use Types Packs/Day Years Used Date Smoking Tobacco: Never Passive Smoke Exposure: Past Smokeless Tobacco: Never Alcohol Use Standard Drinks/Week [...] often do you attend chur ch or voodoo services? Never 05/25/2023 Do you belong to any clubs o r organizations such as druze groups, unions, fraternal or athletic groups, or [...] place to sleep or slept in a usp (including now)? No 05/25/2023 Personal Safety Answer Date Recorded Have you ever been in or are you currently in a harmful physical or emotional relationship or is someone making you feel afraid or unsafe? Denies 06/17/2023 Comments No Sex and Gender Information Value Date Recorded Sex Assigned at Not on file Legal Sex Female 7:43 PM DISTRIBUTED GENERATION PROJECT MANAGER Gender Identity Female 07/19/2020 11:39 AM DISTRIBUTED GENERATION PROJECT MANAGER Sexual Orientation Not on file documented as of this encounter Plan of Treatment Not on file documented as of this encounter Goals Goal Patient Goal Type Associated Problems Recent Progress Patient-Stated? Author SONIA General Goal - Patient schedules and keeps appointments with all recommended providers ACO Care Management On track(03/25 11:26 AM CDT) No Bhavya Browne, RN Note: Problem: Potential for medical complications [...] Care Management On track(03/25 11:26 AM CDT) No Bhavya Browne RN Note: Problem: At Risk for Self [...] SW if appropriate and patient is agreeable. documented as of this encounter Procedures Procedure Name Priority Date/Time Associated Diagnosis Comments CARDIOLOGY DOCUMENT SCAN 10/09/2023 documented in this encounter Results * Cardiology Document Scan (10/09/2023) Anatomical Region Laterality Modality Other us Provider Scanning CV CARDIAC SERVICES PROCEDURES Final Result documented in this encounter Visit Diagnoses Not on filedocumented in this encounter Care Teams Fish Salter Relationship Specialty Start Date End Date Sarbjit Lai MD [address] [place] [address] PCP - General Family Medicine 08/28/22 Samantha Upton NP Nurse Practitioner Internal Medicine 03/23/19 Mook Duran MD PhD [address] [place] [address] Referring Physician Cardiology 03/23/19 Mohan Mi MD [address] [place] [address] Referring Physician Nephrology 08/10/19 Maricarmen Helms MD [address] [place] [address] Referring Physician Endocrinology Diabetes & Metabolism 08/08/21 Nicolasa Jackson NP [address] [place] [address] Nurse Practitioner Nurse Practitioner 08/08/21 documented as of this encounter
--- OUTSIDE RECORDS SUMMARY | 2024-10-05 21:09 | XMS_ITS ---
Author Organization [facility] Address [address] [facility] [address] [place] [address] Care Team Providers Care Ocularist Name Role Phone Pia Orozco PA-C Primary Care Provider Unavailab Madhav Padgett Unavailable [phone] Migration, Provider Unavailable Unavailable Allergies Allergen (clinical drug ingredient) Drug/Non Drug Allergy documented on EMR Reaction Allergy Type Onset Date Status Non-steroidal anti-inflammatory agent (FN) NSAIDS (NON-STEROIDAL ANTI-INFLAMMATORY DRUG) (uncoded) Unknown Allergy Active Substance with 2-wtrrgju-4-methylgluta ryl-coenzyme A reductase inhibitor mechanism of action (substance) [id number]-QDJ-[id number] REDUCTASE INHIBITORS (uncoded) Unknown Allergy Active atenolol Atenolol Unknown Drug Allergy Active Exenatide Unknown Drug Allergy Active prochlorperazine Prochlorperazine Unknown Drug Allergy Active hydrocodone Hydrocodone Unknown Drug Allergy Act gómez oxycodone Oxycodone Unknown Drug Allergy Active pseudoephedrine Pseudoephedrine Unknown Drug Allergy Active REASON FOR VISIT EMR-Woody Medications Medication SIG (Take, Route, Frequency, Duration) Notes Start Date End Date Status Sulfamethoxazole-Trime thoprim 800-160 MG Oral Active Trospium Chloride 20 MG Oral Active Omeprazole 20 MG Oral Act gómez Divalproex Sodium ER 500 MG Oral Active Famotidine 20 MG Oral Act gómez Pramipexole Dihydrochloride 0.25 MG Oral Active ONETOUCH VERIO REFLECT METER *Reorder from [employer] for eRx and Interaction Alerts* Active Tresiba FlexTouch 200 UNIT/ML Subcutaneous Active HumuLIN R U-500 KwikPen 500 unit/mL (3 mL) Subcutaneous *Pick strength-form from [employer] for eRX* Active Brilinta 90 MG Oral Activ e Losartan Potassium 25 MG Oral Active Cephalexin 500 MG Oral Ac tive Ciprofloxacin HCl 500 MG Oral Active Repatha SureClick 140 mg/mL Subcutaneous Active Allopurinol 100 MG Oral A ctive Nystatin 157805 UNIT/GM External Active Bumetanide 2 MG Oral Acti ve Clindamycin HCl 300 MG Oral Active Amiodarone HCl 400 MG Oral Active Carvedilol 25 MG Oral Act gómez Eliquis 5 MG Oral Active Aspirin Adult Low Strength 81 MG Oral Active ProAir HFA 108 (90 Base) MCG/ACT Inhalation Active busPIRone HCl 15 MG Oral Active Amiodarone HCl 200 MG Oral Active Carvedilol 6.25 MG Oral A ctive INSULIN DEGLUDEC (U-200) 200 UNIT/ML (3 ML) SUBCUTANEOUS PEN *Reorder from [employer] for eRx and Interaction Alerts* Active Venlafaxine HCl ER 150 MG Oral Active HumaLOG KwikPen 100 UNIT/ML Subcutaneous Active Gabapentin 100 MG Oral Ac tive Isosorbide Dinitrate 10 MG Oral Active Amoxicillin-Pot Clavulanate 875-125 MG Oral Activ e Social History Sex Assigned At : Social History Observation Description Sex Assigned At Female Encounters Encounter Location Date Provider Diagnosis [facility] [employer] [address] [address] 01/24/2024 Provider Migration Plan Of Treatment No Information Progress Notes * MEGHANAMIKE PRABHAKAR LDOB: 7 (78 yo F)Acc No.[id number]:01/24/2024 Patient:?MIKE KOWALSKI L :1945???Age:78 Y???Sex:Female Address:[address] [place] [address] [address] [place], [place], [place] [address] Subjective: * Chief Complaints: * ???[facility] * Medical History:? * Surgical History:? * Hospitalization/Major Diagno stic Procedure:? * Social History:?Migrated Social History:?Migrated Social History: Tobacco Years: Never smoker 12/08/2023. * Medications:?TakingbusPIRone HCl 15 MG Tablet Oral Losartan Potassium 25 MG Tablet Oral Eliquis 5 MG Tablet Oral Amiodarone HCl 400 MG Tablet Oral Bumetanide 2 MG Tablet Oral Clindamycin HCl 300 MG Capsule Oral Nystatin 245364 UNIT/GM Ointment External Amoxicillin-Pot Clavulanate 875-125 MG Tablet Oral Isosorbide Dinitrate 10 MG Tablet Oral INSULIN DEGLUDEC (U-200) 200 UNIT/ML (3 ML) SUBCUTANEOUS PEN , Notes to Pharmacist: *Reorder from [facility] for eRx and Interaction Alerts*Pramipexole Dihydrochloride 0.25 MG Tablet Oral Divalproex Sodium ER 500 MG Tablet Extended Release 24 Hour Oral Carvedilol 25 MG Tablet Oral Repatha SureClick 140 mg/mL Solution Auto-injector Subcutaneous Amiodarone HCl 200 MG Tablet Oral Cephalexin 500 MG Capsule Oral Tresiba FlexTouch 200 UNIT/ML Solution Pen-injector Subcutaneous ONETOUCH VERIO REFLECT METER , Notes to Pharmacist: *Reorder from [facility] for eRx and Interaction Alerts*Gabapentin 100 MG Capsule Oral HumaLOG KwikPen 100 UNIT/ML Solution Pen-injector Subcutaneous ProAir HFA 108 (90 Base) MCG/ACT Aerosol Solution Inhalation Aspirin Adult Low Strength 81 MG Tablet Delayed Release Oral Famotidine 20 MG Tablet Oral Sulfamethoxazole-Trimethoprim 800-160 MG Tablet Oral Trospium Chloride 20 MG Tablet Oral Ciprofloxacin HCl 500 MG Tablet Oral Carvedilol 6.25 MG Tablet Oral Venlafaxine HCl ER 150 MG Capsule Extended Release 24 Hour Oral Allopurinol 100 MG Tablet Oral Brilinta 90 MG Tablet Oral HumuLIN R U-500 KwikPen 500 unit/mL (3 mL) Solution Pen-injector Subcutaneous , Notes to Pharmacist: *Pick strength-form from [facility] for eRX*Omeprazole 20 MG Capsule Delayed Release Oral Taking busPIRone HCl 15 MG Tablet Oral Taking Losartan Potassium 25 MG Tablet Oral Taking Eliquis 5 MG Tablet Oral Taking Amiodarone HCl 400 MG Tablet Oral Taking Bumetanide 2 MG Tablet Oral Taking Clindamycin HCl 300 MG Capsule Oral Taking Nystatin 707973 UNIT/GM Ointment External Taking Amoxicillin-Pot Clavulanate 875-125 MG Tablet Oral Taking Isosorbide Dinitrate 10 MG Tablet Oral Taking INSULIN DEGLUDEC (U-200) 200 UNIT/ML (3 ML) SUBCUTANEOUS PEN , Notes to Pharmacist: *Reorder from [facility] for eRx and Interaction Alerts*Taking Pramipexole Dihydrochloride 0.25 MG Tablet Oral Taking Divalproex Sodium ER 500 MG Tablet Extended Release 24 Hour Oral Taking Carvedilol 25 MG Tablet Oral Taking Repatha SureClick 140 mg/mL Solution Auto-injector Subcutaneous Taking Amiodarone HCl 200 MG Tablet Oral Taking Cephalexin 500 MG Capsule Oral Taking Tresiba FlexTouch 200 UNIT/ML Solution Pen-injector Subcutaneous Taking ONETOUCH VERIO REFLECT METER , Notes to Pharmacist: *Reorder from [facility] for eRx and Interaction Alerts*Taking Gabapentin 100 MG Capsule Oral Taking HumaLOG KwikPen 100 UNIT/ML Solution Pen-injector Subcutaneous Taking ProAir HFA 108 (90 Base) MCG/ACT Aerosol Solution Inhalation Taking Aspirin Adult Low Strength 81 MG Tablet Delayed Release Oral Taking Famotidine 20 MG Tablet Oral Taking Sulfamethoxazole- Trimethoprim 800-160 MG Tablet Oral Taking Trospium Chloride 20 MG Tablet Oral Taking Ciprofloxacin HCl 500 MG Tablet Oral Taking Carvedilol 6.25 MG Tablet Oral Taking Venlafaxine HCl ER 150 MG Capsule Extended Release 24 Hour Oral Taking Allopurinol 100 MG Tablet Oral Taking Brilinta 90 MG Tablet Oral Taking HumuLIN R U-500 KwikPen 500 unit/mL (3 mL) Solution Pen-injector Subcutaneous , Notes to Pharmacist: *Pick strength-form from [facility] for eRX*Taking Omeprazole 20 MG Capsule Delayed Release Oral * Allergies:?NSAIDS (NON-STERO IDAL ANTI-INFLAMMATORY DRUG): [id number] REDUCTASE INHIBITORS: AllergyAtenolol: AllergyExenatide: AllergyProchlorperazine: AllergyHydrocodone: AllergyOxycodone: AllergyPseudoephedrine: Allergy Objective: * Vitals:? * Physical Examination:? Assessment: Plan: * Treatment: * Procedure Codes:? * true * Date:? Generated for Khris becerra/Camilo/Domingo on:?10/05/2024 09:09 PM FINE ARTIST
--- OUTSIDE RECORDS SUMMARY | 2024-10-05 21:09 | XMS_ITS | Clinical Summary ---
Author Organization [facility] Address [address] [place] [address] Care Team Providers Care Fur Clipper Name Role Phone Samantha Upton NP Unavailable [phone] Mook Duran MD PhD Unavailable [phone] Mohan Mi MD Unavailable Maricarmen Helms MD Unavailable [phone] Nicolasa Jackson NP Unavailable [phone] Sarbjit Lai MD Primary Care Provider [phone] Allergies Active Allergy Reactions Criticality Noted Date Comments Atenolol Syncope,Muscle pain,Shortness of breath,Mental status changes High Reaction: Syncope/Low BP, Myalgia, Short of breath, Mental Status Changes, Exenatide Microspheres Diarrhea Low 07/27/2017 Prochlorperazine Edisylate Itching,Anxiety Low Hydrocodone-Acetaminophen Itching Low Nsaids (Non-Steroidal Anti-Inflammatory Drug) Unknown 01/18/2018 Not supposed to take because of kidneys Oxycodone-Acetaminophen Itching Low Rice Other (See comments) Low 02/28/2020 Heart burn Onkkbbs-Ugl-Cfb Reductase Inhibitors Muscle pain Medium 06/07/2014 Medications [...] BY MOUTH EVERY DAY 30 tablet 7 06/12/20 22 Active pramipexole (MIRAPEX) 0.25 mg tabletIndication [...] SUBCUTANEOUSLY DAILY DISCARD AFTER 28 DAYS 06/24/20 24 Active memantine (NAMENDA) 10 mg tablet Take [...] 60 tablet 05/28/20 23 025 Discontin ued(Alter ran therapy) insulin degludec (TRESIBA) 200 unit/mL (3 [...] Noted Date Diagnosed Date Paroxysmal atrial fibrillation (CMS/HCC) 023 S/P coronary artery stent placement 07/09/2023 Chronic anticoagulation 07/09/2023 Multiple vessel coronary artery disease 05/27/20 23 Chest pain 05/24/2023 Coronary artery disease invo lving siletz tribe coronary artery of siletz tribe heart without angina pectoris 04/22/2023 Mixed diabetic hyperlipidemi a associated with type 2 diabetes mellitus 12/31/2022 Shortness of breath 12/31/2022 Pulmonary HTN 12/31/2022 Morbid (severe) obesity due to excess calories 0 03/03/2022 Body mass index 40.0-44.9, adult ([facility]) 03/03 Cognitive impairment 02/26/2022 Hypoglycemia 02/21/2022 Gout 02/21/2022 Type 2 diabetes mellitus wit h diabetic peripheral angiopathy without gangrene 02/21/2022 Venous stasis 01/29/2022 Has immunity to COVID-19 virus 08/06/2021 Overview (08/06/2021): Moderna vaccine 11/22/2020, 10/25/2020, 05/10/2021 Assessment & Plan (08/06/2021 4:37 PM STAMPING MACHINE OPERATOR): Moderna vaccine 11/22/2020, 10/25/2020, 05/10/2021 Otitis externa [...] function. Assessment & Plan (08/08/2021 2:26 PM STAMPING MACHINE OPERATOR): Need to minimize risk of hypoglycemia, but [...] (03/12/2020): Added automatically from request for surgery [id number] History of esophagitis 03/12/2020 Overview (03/12/2020): Added automatically from request for surgery [id number] Morbid obesity with BMI of 40.0-44.9, adult [...] in erythema with abx. -Seen by wound wrecking crane engine operator yesterday. -Advised patient that she will need [...] for a 5-7d course for now. -Wound wrecking crane engine operator c/s. -Advised patient that she will need [...] 10/25/2018 Assessment & Plan (10/25/2018 9:02 PM STAMPING MACHINE OPERATOR): This is a 72-year-old woman with a [...] will plan for VOLUNTARY admission to Psychiatry, [facility] only, when bed is available Will formally staff these recommendations with the attending tomorrow. Thank you for the consult. Assessment & Plan (10/27/2018 10:49 AM STAMPING MACHINE OPERATOR): -Declined inpatient titration of depakote, experienced altered mental status and increased lethargy when initiating as outpatient at dose of 500mg BID as outpatient. Pt lives alone and would be poor candidate for repeat trial with sedating medications. -Mental status improved after holding depakote -Brain MRI performed per psychiatry recs, read pending -Psychiatry following, planning or voluntary inpatient admission to [facility] only today -TSH 1.8, UDS pending [...] hyperglycemia. Assessment & Plan (10/31/2021 6:00 PM STAMPING MACHINE OPERATOR): No recent Hemoglobin A1c. There are no [...] support. Assessment & Plan (08/08/2021 2:26 PM STAMPING MACHINE OPERATOR): Extremely high glucoses, so she needs much [...] MDSSI Assessment & Plan (10/29/2018 9:30 AM STAMPING MACHINE OPERATOR): Patient's glucose was elevated of 478 on admission, likely secondary to patient admitting having difficulty complying with medication due to confusion and somnolence in the setting of starting Depakote - Continue Lantus 20 units q.d., lispro 5 units t.i.d. before meals in mid dose sliding scale. Assessment & Plan (10/28/2018 8:27 AM STAMPING MACHINE OPERATOR): Patient's glucose was elevated of 478 on admission, likely secondary to patient admitting having difficulty complying with medication due to confusion and somnolence in the setting of starting Depakote Plan: - Continue Lantus 20 units q.d., lispro 5 units t.i.d. before meals in mid dose sliding scale. Assessment & Plan (10/28/2018 8:20 AM STAMPING MACHINE OPERATOR): Patient's glucose was elevated of 478 on admission, likely secondary to patient admitting having difficulty complying with medication due to confusion and somnolence in the setting of starting Depakote Plan: - Continue Lantus 20 units q.d., lispro 5 units t.i.d. before meals in mid dose sliding scale. Assessment & Plan (10/25/2018 1:35 PM STAMPING MACHINE OPERATOR): -Home regimen includes Tresiba 50 daily, Vitoza 1.2 daily, and humalog with meals -Hyperglycemic to 478 on admission, likely due to admitted medication noncompliance while taking Depakote -Resolved quickly after resuming insulin on admission. -Continue lantus 20 units qAM, lispro 5 units TID, mid-dose SSI Assessment & Plan (10/18/2018 7:35 AM STAMPING MACHINE OPERATOR): Recent event when she took her mealtime [...] 01/25/2018 Assessment & Plan (08/08/2021 2:26 PM STAMPING MACHINE OPERATOR): Continue chronic supplement recheck labs Assessment & Plan (10/18/2018 7:37 AM STAMPING MACHINE OPERATOR): Continue supplement Assessment & Plan (04/07/2018 3:29 PM CDT): Continue increased supplement Assessment & Plan (01/25/2018 12:34 PM CDT): Continue supplementation. Repeat level today. Arthritis 01/18/2018 GERD (gastroesophageal reflux disease) 8 Assessment & Plan (10/25/2018 1:37 PM STAMPING MACHINE OPERATOR): -Continue protonix. ANDREA on CPAP 09/06/2015 Overview [...] compliance Assessment & Plan (10/29/2018 9:30 AM STAMPING MACHINE OPERATOR): Stable/BIBI. Patient had continued evidence of severe obstructive sleep apnea on September 2017 sleep study. - autoCPAP therapy w/ pressure 12-16 cm H2O and a small AirFit F20 full face mask. Assessment & Plan (10/28/2018 8:26 AM STAMPING MACHINE OPERATOR): Patient had continued evidence of severe obstructive sleep apnea on September 2017 sleep study. Plan: - Consult respiratory care for CPAP - autoCPAP therapy w/ pressure 12-16 cm H2O and a small AirFit F20 full face mask. Assessment & Plan (10/28/2018 8:20 AM STAMPING MACHINE OPERATOR): Patient had continued evidence of severe obstructive [...] up Assessment & Plan (10/29/2018 9:46 AM STAMPING MACHINE OPERATOR): For now, we will be working w/ provisional dx of bipolar disorder unspecified. Somewhat unclear if pt had a manic vs hypomanic episode preceding her hospitalization, but our concern is nonetheless significant. Pt has a hx of well documented sustained depressive episodes w/ collateral revealing she has been spending excessive amounts of money on items on sale after [employer] and an excessive amount of time redecorating [...] outpatient Assessment & Plan (10/29/2018 9:30 AM STAMPING MACHINE OPERATOR): For now, we will be working w/ [...] her house (wanting to make it a [employer] next year) and working on numerous [...] outpatient Assessment & Plan (10/28/2018 8:23 AM STAMPING MACHINE OPERATOR): Patient has persistent difficulty discarding or parting [...] aren Assessment & Plan (10/28/2018 8:16 AM STAMPING MACHINE OPERATOR): Patient has persistent difficulty discarding or parting [...] pramipexole Assessment & Plan (10/29/2018 9:30 AM STAMPING MACHINE OPERATOR): Stable/BIBI. -Continue home pramipexole 0.5mg nightly (patient reports she usually takes two at home) Assessment & Plan (10/28/2018 8:27 AM STAMPING MACHINE OPERATOR): -Continue home pramipexole 0.5mg nightly (patient reports she usually takes two at home) Assessment & Plan (10/28/2018 8:17 AM STAMPING MACHINE OPERATOR): -Continue home pramipexole 0.5mg nightly (patient reports she usually takes two at home) Assessment & Plan (10/25/2018 1:36 PM STAMPING MACHINE OPERATOR): -Continue home pramipexole 0.5mg nightly Carcinoma of [...] 10/28/2018 Assessment & Plan (10/25/2018 3:09 AM STAMPING MACHINE OPERATOR): Psychological condition is improving with treatment. Her [...] (05/05/2018): Added automatically from request for surgery [id number] Right posterior capsular opacification 04/05/2018 10/28/2018 Corneal [...] feet daily. Stage 4 chronic kidney disease ([facility]) 01/25/2018 10/17/2020 Assessment & Plan (10/27/2018 10:50 AM STAMPING MACHINE OPERATOR): -Creatinine 1.50 on admission, increased to 1.70. Will empirically give 1L NS and hold lasix Assessment & Plan (10/18/2018 7:34 AM STAMPING MACHINE OPERATOR): Increased risk of hypoglycemia Assessment & Plan (01/25/2018 12:34 PM CDT): Renal condition is unchanged. Continue current treatment regimen. Renal condition will be reassessed in 6 months. Fatigue 01/18/2018 10/28/2018 Zelda esophagitis ([facility]) 12/11/2017 10/28/2018 Depression, recurrent ([facility]) 08/24/2017 10/28/2018 Assessment & Plan (01/25/2018 12:30 PM CDT): Psychological condition is improving with treatment. Continue current treatment regimen. Psychological condition will be reassessed at the next regular appointment. Valgus deformity of great toe 08/07/2017 10/28/2018 Chronic obstructive pulmonary disease 10/30/2016 04/01/2019 Assessment & Plan (10/25/2018 1:35 PM STAMPING MACHINE OPERATOR): -Continue home spiriva, symbicort, albuterol Knee pain 09/11/2016 10/28/2018 Posterior vitreous detachment 06/25/2016 10/28/2018 Combined forms of age-related cataract 06/25/2016 07/05/2018 Diabetic peripheral neuropathy ([facility]) 11/29/2015 10/28/2018 Overview (12/12/2016): Type [...] disease Assessment & Plan (10/18/2018 7:36 AM STAMPING MACHINE OPERATOR): Glucoses tend to be too high, but [...] time. Assessment & Plan (10/27/2018 10:50 AM STAMPING MACHINE OPERATOR): -Coreg 6.25 BID -> 12.5mg BID Assessment & Plan (04/07/2018 3:27 PM CDT): Increased risk of hypoglycemia. Need to maintain a good margin of glycemic safety Blood pressure within target, managed by renal long term care phlebotomist current use of insulin ([facility]) 09/06/2015 10/28/2018 Overview (12/12/2016): [...] bone density screening Actinic keratosis 08/04/2012 10/28/2018 Encounters Date Type Department Care Team Description 09/20/2024 9:00 AM STAMPING MACHINE OPERATOR Office Visit [facility] Cardiology [address] [place] [address] [place] [phone] Kimberly Abernathy NP Persistent atrial fibrillation (HCC) (Primary Dx); Chronic diastolic congestive heart failure (CMS/HCC) (HCC); Coronary artery disease involving siletz tribe coronary artery of siletz tribe heart without angina pectoris; Hypotension due to drugs; Hospital discharge follow-up 08/30/2024 Orders Only [facility] Cardiology [address] [place] [address] [address] [place] [phone] Zhanna Alfonso MD 08/24/2024 Telephone [facility]iology [address] [place] [address] [address] [place] [phone] Zhanna Alfonso MD cardioversion 08/23/2024 Orders Only [facility] Cardiology [address] [place] [phone] Campbell Shin MD 08/16/2024 Orders Only [facility]iology [address] [place] [phone] Christiano Mai MD 08/01/2024 Telephone [facility] [address] [facility] [address] [place] [phone] Kimberly Abernathy, KACEY Med Refill 07/27/2024 Orders Only [facility]iology [address] [place] [phone] Zhanna Alfonso MD from Last 3 Months Immunizations Name Administration Dates Next Due Influenza, [...] PPV23 09/07/2012,09/2009 Tdap 08/12/2011 ZOSTER LIVE 09/07/2012 Surgical History Surgery Date Site/Laterality Comments CATARACT EXTRACTION 09/07/2007 - 09/06/2008 Right TOTAL HIP ARTHROPLASTY MASTECTOMY Right CHOLECYSTECTOMY BREAST SURGERY mastectomy SKIN CANCER EXCISION 08/07/2018 - 09/06/2018 UPPER GASTROINTESTINAL ENDOSCOPY COLONOSCOPY Medical History Medical History Date Comments Depression Depression Sleep apnea Sleep apnea Neuropathy (CMS/HCC) Neuropathy; Comments: KMKaren 05/15/2015 - Type 2 diabetes mellitus wit h hypoglycemia without coma (HCC) Type 2 diabetes mellit us with hypoglycemia without coma - (Added by TW Conv) Cataract Knee pain Pain Patient states s he has very low pain tolerence Breast cancer (HCC) Postoperative delirium following breast surgery Chronic diastolic (congestiv e) heart failure (HCC) 03/24/2019 Macular degeneration Dysphagia GERD (gastroesophageal reflux disease) Coronary artery disease Hypertension Chronic kidney disease Impacted cerumen of left ear 05/08/2021 Bria marnie drops recommended. Refer to ENT if no better. Multiple vessel coronary art bebeto disease Atrial fibrillation (CMS/HCC) (HCC) Stiff heart syndrome Irritable bowel syndrome Anemia Family History Medical History Relation Name Comments Leukemia Brother 1 Cancer -leukemi a; Anemia Brother 2 Blood disease; Diabetes type II Brother 3 Diabetes -T ype 2; Depression Daughter COPD Father COPD; Coronary artery disease Father Whitney nary artery disease; Diabetes type II Father Diabetes -T ype 2; Heart disease Father Hypertension Father Hypertension; Depression Mother Lung cancer Mother Cancer -lung; Anesthesia problems Neg Hx Relation Name Status Comments Brother 1 Brother 2 Brother 3 Daughter Father Mother Social History Tobacco Use Types [...] 05/25/2023 How often do you attend chur [employer] or oriental orthodox services? Never 05/25/2023 Do you belong to any clubs o r organizations such as oriental orthodox groups, unions, fraternal or athletic groups, [...] on file Legal Sex Female 7:43 PM STAMPING MACHINE OPERATOR Gender Identity Female 07/19/2020 11:39 AM STAMPING MACHINE OPERATOR Sexual Orientation Not on file Obstetrics History Last Filed Vital Signs Vital Sign Reading Time Taken Comments Blood Pressure 82/54 09/20/2024 9:10 AM STAMPING MACHINE OPERATOR Pulse 99 09/20/2024 9:10 AM STAMPING MACHINE OPERATOR Temperature 36.6 ??C (97.9 ??F) 07/21/2023 12:[address] Respiratory Rate 18 07/21/2023 12:00 AM STAMPING MACHINE OPERATOR Oxygen Saturation 92% 09/20/2024 9:10 AM STAMPING MACHINE OPERATOR Inhaled Oxygen Concentration - - Weight 105.7 kg (233 lb) 09/20/2024 9:10 AM STAMPING MACHINE OPERATOR Height 165.1 cm (5' 5 ) 09/20/2024 9:10 AM STAMPING MACHINE OPERATOR Body Mass Index 38.77 09/20/2024 9:10 AM STAMPING MACHINE OPERATOR Plan of Treatment Health Maintenance Due Date Last Done Comments Hepatitis B Screening 1963 Zoster Vaccine (2 of 3) 11/02/2012 09/07/2012 Osteoporosis Screening-Bone Density Scan 07/19/2022 07/19/2020, 02/19/2015, 02/19/2015, Additional history exists Well Visit 65+ 08/12/2022 08/12/2021, 05/2020, 08/10/2019 Albumin Creatinine Ratio, Urine 11/11/2022 11/11/2021, 06/23/2019, 07/19/2018, Additional history exists Foot Exam 11/11/2022 11/11/2021, 11/2019, 08/08/2019, Additional history exists Depression Screening 03/03/2023 03/03/2022, 11/11/2021, 11/11/2021, Additional history exists Hemoglobin A1C 11/23/2023 05/25/2023, 02/05, 01/30/2022, Additional history exists Dilated Eye Exam 03/09/2024 03/09/2023, , 10/28/2021, Additional history exists Covid-19 Vaccine (2023-2 5 season) 2024 07/03/2022, 05/10/2021, 11/22/2020, Additional history exists Influenza Vaccine (#1) 2024 , 06/07/2021, 06/06/2020, Additional history exists Lipid Panel 05/14/2024 05/14/2023, 08/08, 02/28/2020, Additional history exists Fall Risk Assessment 06/18/2024 06/18/2023, 03/03/2022, 11/11/2021, Additional history exists eGFR 08/17/2024 08/17/2023, 06/07, 06/17/2023, Additional history exists DTaP/Tdap/Td Vaccine (3 - Td or Tdap) 06/14/2031 06/14/2021, 08/12/2011 Pneumococcal vaccine 65+ Completed 015, 09/07/2012, 07/08/2010 Hepatitis C Screening Completed 07/27/2017 Colon Cancer Screening-CT Colonography Discontinued 12/09/2017 Colon Cancer Screening-Colonoscopy Discontinued 12/09/2017 Colon Cancer Screening-DNA Stool Discontinued 12/10/19 18 Colon Cancer Screening-FIT Discontinued 12/09/2017 Colon Cancer Screening-FOBT Discontinued 12/09/2017 Colon Cancer Screening-Sigmoidoscopy Discontinued 12/09/2017 Colorectal Cancer Screening Discontinued Breast Cancer Screening-Mammogram Discontinued 08/10/2018, 02/26/2016, 01/30/2015, Additional history exists Goals Goal Patient Goal Type Associated Problems [...] is agreeable. Medical Devices Implanted Type Area Ball Assembler Device Identifier Shelf Expiration Date Model / Serial / Lot [employer] [id number] 22.0 Tecnis Optiedge 6mm 13mm 3 Piece Anterior Aspheric Monofocal Uv - [id number] - [id number] Implanted:Qty: 1 on 06/16/2018 by Grazyna Watt MD at [facility] Lens Left: Eye [place] [employer] [id number] 01/21/2021 [id number] 22.0 / [id number] / 0 Gamma Medica Sushil Synergy Xd Monorail 2.25mm 38mm 144cm Delivery System 1 Access [id number] - [id number] Implanted:Qty: 1 on 06/17/2023 by Brody Rouse MD at [facility] [employer] 11/02/2024 [id number] / / [id number] [employer] Luxtech Synergy Xd Monorail 2.5mm 12mm 144cm Delivery System 1 Access [id number] - [id number] Implanted:Qty: 1 on 06/17/2023 by Brody Rouse MD at [facility] [employer] 02/24/2025 [id number] / / [id number] [employer] Sushil Synergy Xd Monorail 3mm 16mm 144cm Delivery System 1 Access Port [id number] - [id number] Implanted:Qty: 1 on 06/17/2023 by Brody Rouse MD at [facility] 07/08/2024 [id number] / / [id number] [facility] [employer] [facility] Angio-Seal Vip 6fr Closere Device [id number] - [id number] Implanted:Qty: 1 on 06/17/2023 by Brody Rouse MD at [facility] [employer] [facility] 02/12/2024 [id number] / / [id number] Procedures Procedure Name Priority Date/Time Associated Diagnosis Comments CARDIOLOGY DOCUMENT SCAN Routine 08/25/2024 12:25 PM STAMPING MACHINE OPERATOR CARDIOLOGY DOCUMENT SCAN Routine 08/24/2024 12:14 PM STAMPING MACHINE OPERATOR CARDIOLOGY DOCUMENT SCAN Routine 08/22/2024 8:56 AM STAMPING MACHINE OPERATOR CARDIOLOGY DOCUMENT SCAN Routine 08/13/2024 2:24 PM STAMPING MACHINE OPERATOR CARDIOLOGY DOCUMENT SCAN Routine 08/12/2024 9:01 AM STAMPING MACHINE OPERATOR CARDIOLOGY DOCUMENT SCAN Routine 07/24/2024 12:18 PM STAMPING MACHINE OPERATOR CARDIOLOGY DOCUMENT SCAN Routine 07/24/2024 12:12 PM STAMPING MACHINE OPERATOR CARDIOLOGY DOCUMENT SCAN Routine 07/23/2024 11:13 AM STAMPING MACHINE OPERATOR CARDIOLOGY DOCUMENT SCAN Routine 07/22/2024 11:11 AM STAMPING MACHINE OPERATOR COMPREHENSIVE METABOLIC PANEL Routine 08/17/2023 1:40 PM STAMPING MACHINE OPERATOR snf current use of amiodarone HEMOGLOBIN A1C Routine 05/25/2023 10:14 AM CDT LIPID PANEL Routine 05/14/2023 1:26 PM CDT Lipid screening ALBUMIN CREATININE RATIO, URINE Routine 11/11/2021 1:55 PM STAMPING MACHINE OPERATOR Type 2 diabetes mellitus with stage 3b chronic kidney disease, with long-term current use of insulin (HCC) DEXA AXIAL SKELETON BONE DENSITY 1 OR MORE SITES Schedule Routine, Read Routine (OP Routine) 07/19/2020 10:24 AM STAMPING MACHINE OPERATOR Postmenopausal SCREENING MAMMOGRAM LEFT W OLMAN UNILATERAL ONLY Schedule Routine, Read Routine (OP Routine) 08/10/2018 3:28 PM STAMPING MACHINE OPERATOR Encounter for screening mammogram for malignant neoplasm of breast COLONOSCOPY REPORT 12/09/2017 HEPATITIS C ANTIBODY Routine 07/27/2017 10:01 AM STAMPING MACHINE OPERATOR Encounter for hepatitis C screening test for low risk patient from Last 3 Months or Most Recently Relevant to Health Maintenance Results * Cardiology Document Scan (08/25/2024 12:25 PM STAMPING MACHINE OPERATOR) Anatomical Region Laterality Modality Other Result Clifford Shin MD [facility] CARDIAC SERVICES PROCEDURES F inal Result * Cardiology Document Scan (08/24/2024 12:14 PM STAMPING MACHINE OPERATOR) Anatomical Region Laterality Modality Other Result Clifford Alfonso MD [facility] CARDIAC SERVICES PRO CEDURES Final Result * Cardiology Document Scan (08/22/2024 8:56 AM STAMPING MACHINE OPERATOR) Anatomical Region Laterality Modality Other Result Clifford Shin MD CV CARDIAC SERVICES PROCEDURES F inal Result * Cardiology Document Scan (08/13/2024 2:24 PM STAMPING MACHINE OPERATOR) Anatomical Region Laterality Modality Other Result Clifford Mai MD [facility] CARDIAC SERVICES PROCEDU RES Final Result * Cardiology Document Scan (08/12/2024 9:01 AM STAMPING MACHINE OPERATOR) Anatomical Region Laterality Modality Other Result Clifford Alfonso MD CV CARDIAC SERVICES PRO CEDURES Final Result * Cardiology Document Scan (07/24/2024 12:18 PM STAMPING MACHINE OPERATOR) Anatomical Region Laterality Modality Other Result Clifford Shin MD CV CARDIAC SERVICES PROCEDURES F inal Result * Cardiology Document Scan (07/24/2024 12:12 PM STAMPING MACHINE OPERATOR) Anatomical Region Laterality Modality Other Result Clifford Shin MD CV CARDIAC SERVICES PROCEDURES F inal Result * Cardiology Document Scan (07/23/2024 11:13 AM STAMPING MACHINE OPERATOR) Anatomical Region Laterality Modality Other Result Clifford Shin MD CV CARDIAC SERVICES PROCEDURES F inal Result * Cardiology Document Scan (07/22/2024 11:11 AM STAMPING MACHINE OPERATOR) Anatomical Region Laterality Modality Other Result [facility] Gautam Alfonso MD CV CARDIAC SERVICES PRO CEDURES Final Result * (ABNORMAL) Comprehensive metabolic panel (08/17/2023 1:40 PM STAMPING MACHINE OPERATOR) Glucose 143(H) 65 - 139 mg/dL [facility] Comment: ? Non-fasting reference interval BUN 34(H) 7 - 25 mg/dL [facility] Creatinine 1.74(H) 0.60 - 1.00 mg/dL [facility] eGFR 30(L) > OR = 60 mL/min/1.7 3m2 [facility] BUN/creat ratio 20 6 - 22 (calc) [facility] Sodium 139 135 - 146 mmol/L [facility] Potassium, pl 4.0 3.5 - 5.3 mmol/L [facility] Chloride 103 98 - 110 mmol/L [facility] CO2 30 20 - 32 mmol/L [facility] Calcium 9.2 8.6 - 10.4 mg/dL [facility] Protein, sr 7.1 6.1 - 8.1 g/dL [facility] Albumin 3.8 3.6 - 5.1 g/dL [facility] GLOBULIN 3.3 1.9 - 3.7 g/dL (calc) [facility] Alb/glob ratio 1.2 1.0 - 2.5 (calc) [facility] Bilirubin, total 0.2 0.2 - 1.2 mg/dL [facility] Alk phos 106 37 - 153 U/L [facility] AST 10 10 - 35 U/L [facility] ALT (SGPT) 10 6 - 29 U/L [facility] Blood 08/17/2023 1:40 PM STAMPING MACHINE OPERATOR 08/17/2023 1:41 PM STAMPING MACHINE OPERATOR Narrative [facility] - 08/19/2023 2:31 PM STAMPING MACHINE OPERATOR FASTING:NO FASTING: NO Kimberly Abernathy NP LAB BLOOD ORDERABLES Claire l Result Performing Organization Address City/[facility] Co de Phone Number [facility] [address] [place] [address] * (ABNORMAL) Hemoglobin A1c (05/25/2023 10:14 AM CDT) Pathologist [facility] Hgb A1C 9.2(H) 4.0 - 5.6 % [facility] Estimated Average Glucose 217 mg/dL [facility] JENKINS Comment: The ADA recommends reporting an estimated Average Glucose (eAG) with all Hemoglobin A1c results using the equation derived from a study of 507 normal and diabetic adults. ??Minority populations were underrepresented and children were not included. ?? (Diabetes Care 31:2532-7407, 2008). ??The eAG is not equivalent to a fasting glucose. Blood 05/25/2023 10:1 4 AM CDT 05/25/2023 10:29 AM CDT Quinton Hooks MD LAB BLOOD ORDERABLES Final Result Performing Organization Address [facility] Co de Phone Number [facility] [address] Department of Laboratories [place], [place] [id number] * (ABNORMAL) Lipid panel (05/14/2023 1:26 PM CDT) Pathologist [facility] Cholesterol 221(H) <200 mg/dL [employer] HDL 50 > OR = 50 mg/dL [employer] Triglycerides 205(H) <150 mg/dL [facility] [...] factors. LDL-C is now calculated using the Jaron-Shultz calculation, which is a validated novel method providing better accuracy than the Friedewald equation in the estimation of LDL-C. Jaron SS et al. GERALD. 2013;310(19): 3995-5880 (http://education.BriefCam.iiyuma/faq/RTY519) Chol/HDL ratio 4.4 <5.0 (calc) [employer] [facility] Non-HDL, (LDL+VLDL) 171(H) <130 mg/dL (calc) [employer] [facility] L[employer]pez Comment: For patients with diabetes plus 1 major ASCVD risk factor, treating to a non-HDL-C goal of <100 mg/dL (LDL-C of <70 mg/dL) is considered a therapeutic option. Blood 05/14/2023 1:26 PM CDT 05/14/2023 1:27 PM CDT us Brody Rouse MD LAB BLOOD ORDERABLES Final Result Performing Organization Address City/[facility]/ZIP Co de Phone Number [facility] [address] [place] [address] * Albumin Creatinine Ratio, Urine (11/11/2021 1:55 PM STAMPING MACHINE OPERATOR) Albumin Ur <12.0 mg/L [facility] Comment: Interpretive Data No reference range established. Current interpretive data was last revised 2019. Creatinine Ur 44.0 mg/dL [facility] Comment: Interpretive Data No reference range established. Current interpretive data was last revised 2019. Albumin Creatinine Ratio, Ur <27 1 - 29 mg/g [facility] Urine 11/11/2021 1:55 PM STAMPING MACHINE OPERATOR 11/11/2021 4:47 PM STAMPING MACHINE OPERATOR us Patricia GOYAL LAB URINE ORDERABLES Final Result Performing Organization Address City/[facility]/ZIP Co de Phone Number [facility] Department [place] [address] * Dexa Axial Skeleton Bone Density 1 or 2 Site (07/19/2020 10:24 AM STAMPING MACHINE OPERATOR) Anatomical Region Laterality Modality Body N/A Radiographic [facility] Narrative 07/19/2020 6:22 PM STAMPING MACHINE OPERATOR Patient Name: Aelksandra Berman Date of : 1945 Date of scan: 07/19/2020 Bone mineral density was performed on a HoloFinsphere Discovery Densitometer. ?? Machine Cross-calibration and Precision [...] and Mineral Research 7(6): 633-8 (1991) 4) Mcgee, Journal Bone and Mineral Research 8(10):1227-33 (1992) The history and data sections of the bone mineral density scan were prepared by Nneka Yanez(Dev)(Karen)(BD), CBDT who is accredited by the International Society of Clinical Densitometry. The overall patient assessment and scan interpretation were performed by Boston Cruz MD who is certified by the International Society of Clinical Densitometry. [id number] us Dayanna Odonnell MD IMG DXA PROCEDURES Fin al Result * Screening Mammograpm Left W Olman Unilateral Only (08/10/2018 3:28 PM STAMPING MACHINE OPERATOR) Anatomical Region Laterality Modality Breast Left Mammography Narrative 08/11/2018 10:42 AM STAMPING MACHINE OPERATOR Mammogram Technique: Left Breast Digital Breast Tomosynthesis, Unilateral C-view 2D Screening mammogram. ??Views obtained: ??left craniocaudal and left mediolateral oblique. ??Computer Aided Detection was performed. Mammogram Findings: The present examination has been compared to prior imaging studies performed at [facility] on 01/30/2015, 02/26/2016 and 05/12/2017. There are [...] compared to prior imaging studies performed at [facility] on 01/30/2015, 02/26/2016 and 05/12/2017. There are scattered areas of fibroglandular density. There is no suspicious abnormality in the left breast. Patient has personal history of reduction mammoplasty in the leftbreast. Patient status post contralateral mastectomy for personal history ofbreast cancer. Impression: Finding in the left breast is benign. Annual screening mammography is recommended. OVERALL FINAL ASSESSMENT: BI-RADS CATEGORY 2: Benign. Melly Tang MD IMG MAMMO PROCEDURES Fi nal Result * COLONOSCOPY REPORT (12/09/2017) Anatomical Region Laterality Modality Other us Provider Scanning GI PROCEDURE ORDERABLES Final Result * Hepatitis C antibody (07/27/2017 10:01 AM STAMPING MACHINE OPERATOR) Hep C Ab Nonreactive Nonreactive [facility]NER Comment: Interpretive Data Positive and greyzone results should be confirmed by a molecular method. If positive or greyzone, a second separately collected sample should be submitted for Hepatitis C Virus RNA. Detection and Quantitation by Real-Time Reverse Meal Temperer-PCR.Current Interpretive data was last revised on 2017. Blood specimen (specimen) 07/27/2017 10:01 AM STAMPING MACHINE OPERATOR 07/27/2017 12:52 PM STAMPING MACHINE OPERATOR us Dayanna Odonnell MD LAB MICROBIOLOGY - GEN ERAL ORDERABLES Edited Result - Final [facility] [place] [address] from Last 3 Months or Most Recently Relevant to [place] [address] MEDICARE [facility] MEDICARE BLUE CROSS MEDICARE SUPPLEMENT MEDICARE [facility] [place] [place] [address] Advance Directives For more information, please contact: [phone] * LIMITED - No CPR (Latest Code [...] 11:15 PM 02/27/2022 12:34 AM Care Teams Fur Clipper Relationship Specialty Start Date End Date Sarbjit Lai MD [address] [place] [address] PCP - General Family Medicine 08/28/22 Samantha Upton NP Nurse Practitioner Internal Medicine 03/23/19 Mook Duran MD PhD [address] [place] [address] Referring Physician Cardiology 03/23/19 Mohan Mi MD [address] [place], [place] [id number] Referring Physician Nephrology 08/10/19 Maricarmen Helms MD [address] [place] [address] Referring Physician Endocrinology Diabetes & Metabolism 08/08/21 Nicolasa Jackson NP [address] [place], [place] [id number] Nurse Practitioner Nurse Practitioner 08/08/21
--- OUTSIDE RECORDS SUMMARY | 2024-10-05 21:09 | XMS_ITS | Encounter Summary ---
Author Organization [facility] Address [address] [place] [address] Phone Care Team Providers Care Engineering Job Titles Name Role Phone Dayanna Odonnell MD Primary Care Provider Samantha Upton NP Unavailable [phone] Mook Duran MD PhD Unavailable [phone] Venice Dobbs RN Unavailable [phone] Mohan Mi MD Unavailable Maricarmen Helms MD Unavailable [phone] Nicolasa Jackson DUCTFIXING PLUMBER Unavailable Bhavya Browne RN Unavailable [phone] Unknown, Notinfile Primary Care Provider Unavail able Sarbjit Lai MD Primary Care Provider Encounter Details Date Type Department Care Team (Latest Contact Info) Description 11/22/2018 Orders Only [facility] SLEEP Scanning, Provider Social History Tobacco Use Types Packs/Day Years Used Date Smoking Tobacco: Never Smokeless Tobacco: Never Alcohol Use Standard Drinks/Week Comments No 0 (1 standard drink = 0.6 oz pur e alcohol) Comments No Sex and Gender Information Value Date Recorded Sex Assigned at Not on file Legal Sex Female 7:43 PM SOFTWARE ENGINEER WEB APPLICATIONS Gender Identity Female 07/19/2020 11:39 AM SOFTWARE ENGINEER WEB APPLICATIONS Sexual Orientation Not on file documented as of this encounter Plan of Treatment Not on file documented as of this encounter Procedures Procedure Name Priority Date/Time Associated Diagnosis Comments SLEEP LAB/STUDY - RESULT 11/22/2018 documented in this encounter Results * SLEEP LAB/STUDY - RESULT (11/22/2018) us Provider Scanning Final Result documented in this encounter Visit Diagnoses Not on filedocumented in this encounter Additional Health Concerns Infection Onset Date Last Indicated Resolved Time COVID: Suspected 08/14/2020 08/14/2020 08/28/2020 3:07 AM SOFTWARE ENGINEER WEB APPLICATIONS documented as of this encounter Care Teams Engineering Job Titles Relationship Specialty Start Date End Date Dayanna Odonnell MD PCP - General 12/05/16 06/22/22 Unknown, Notinfile PCP - General 06/23/22 08/27/22 Sarbjit Lai MD PCP - General Family Medicine 08/28/22 Samantha Upton NP Nurse Practitioner Internal Medicine 03/23/19 Mook Duran MD PhD [address] [place] [address] Referring Physician Cardiology 03/23/19 Venice Dobbs RN [address] [place] [address] [address] [place] [address] Strength And Conditioning Coach 04/28/19 01/08/21 Mohan Mi MD [address] [place] [address] [address] [place] [address] Referring Physician Nephrology 08/10/19 Maricarmen Helms MD [address] [place] [address] Referring Physician Endocrinology Diabetes & Metabolism 08/08/21 Nicolasa Jackson NP [address] [place] [address] [address] [place] [address] Nurse Practitioner Nurse Practitioner 08/08/21 Bhavya Browne, RN [address] [place] [address] Strength And Conditioning Coach 02/27/22 03/24/22 documented as of this encounter
--- OUTSIDE RECORDS SUMMARY | 2024-10-05 21:09 | XMS_ITS | Patient Health Summary ---
Author Organization [facility] Address [address] [place] [address] Care Team Providers Care Reproduction Order Processor Name Role Phone Margaux Eduardo MD Primary Care Provider [phone] Note from [facility],non-owned Affiliates and Associated Physician Practices is amultiple site organization consisting of ambulatory clinics and hospital sitesin [place], [place], [place] and [place]. This disclosure is being madepursuant to the Care Everywhere program and may not contain all information available regarding this patient. Last updated 18.[facility] Social History Tobacco Use Types Packs/Day Years Used Date Smoking Tobacco: Never Assessed Sex and Gender Information Value Date Recorded Sex Assigned at Not on file Gender Identity Not on file Sexual Orientation Not on file Care Teams Reproduction Order Processor Relationship Specialty Start Date End Date Margaux Eduardo MD [address] [id number] PCP - General 08/12/22
--- OUTSIDE RECORDS SUMMARY | 2024-10-05 21:09 | XMS_ITS | Clinical Summary ---
Author Organization [facility] [employer] Address [address] [place] [address] Care Team Providers Care Linux System Engineer Name Role Phone Margaux Eduardo MD Primary Care Provider [phone] Source Comments [facility] [employer],non-owned Affiliates and Associated Physician Practices is amultiple site organization consisting of ambulatory clinics and hospital sitesin [place], [place], [place] and [place]. This disclosure is being madepursuant to the Care Everywhere program and may not contain all information available regarding this patient. Last updated 18.[facility] [employer] Social History Tobacco Use Types Packs/Day Years Used Date Smoking Tobacco: Never Assessed Sex and Gender Information Value Date Recorded Sex Assigned at Not on file Gender Identity Not on file Sexual Orientation Not on file Plan of Treatment Health Maintenance Due Date Last Done Comments BONE DENSITY TESTING 1945 MEDICARE AWV ? 12 MONTHS 1945 HEPATITIS C SCREENING 12/18/1964 DTAP/TDAP/TD VACCINES (1 - Tdap) 1965 PNEUMOCOCCAL VACCINE 50+ (1 of 1 - PCV) 1996 ZOSTER VACCINE (1 of 2) 1996 Respiratory Syncytial Virus (RSV) Vaccine Pt: or over 60 yrs (1 - 1-dose 75+ series) 2021 COVID-19 VACCINE ( - 2023-2 5 season) 2024 INFLUENZA VACCINE (#1) 2024 DEPRESSION SCREENING 09/07/2024 HEPATITIS B VACCINE Aged Out No longe r eligible based on patient's age to complete this topic HIB VACCINE Aged Out No longer eligi ble based on patient's age to complete this topic HPV VACCINE Aged Out No longer eligi ble based on patient's age to complete this topic MENINGOCOCCAL (Group B) VACCINE Aged Out No longer eligible based on patient's age to complete this topic MENINGOCOCCAL VACCINE Aged Out No ximena herlinda eligible based on patient's age to complete this topic Care Teams Linux System Engineer Relationship Specialty Start Date End Date Margaux Eduardo MD [address] [facility], [address] [address] PCP - General 08/12/22
--- NOTE | 2024-10-05 21:19 | ED_ITS ---
HPI - General Adult General Chief complaint: Fall Stated complaint: Fall out of bed, no complaints Time Seen by Provider: 10/05/24 20:01 History of Present Illness HPI narrative: This is a pleasant 78-year-old female presenting after a fall. She had urinate was trying to got her bed when she fell hitting the ground. She does not believe that she hit her head. She is on Eliquis. She has no physical complaints at this time. Related Data Home Medications ?Medication ?Instructions ?Recorded ?Confirmed ?Last Taken ?Type divalproex 500 mg tablet,delayed 500 mg PO HS 03/06/22 09/08/24 04/11/24 History release (Depakote) vit C 250 mg-E 90 mg-zinc 40 1 tablet PO Q12H 03/27/23 09/08/24 04/11/24 History mg-copper 1 ar-xhjjdo-estuta chew tablet (PreserVision AREDS-2) evolocumab 140 mg/mL subcutaneous 140 mg subcut Q14D 07/13/23 09/08/24 03/23/24 History pen injector (Repatha Alanaick) calcium 600 mg (as 1 tablet PO DAILY 04/04/24 09/08/24 04/11/24 History carbonate)-vitamin D3 5 mcg (200 unit) tablet famotidine 20 mg tablet 20 mg PO HS 04/04/24 09/08/24 04/11/24 History memantine 10 mg tablet 10 mg PO Q12H 04/04/24 09/08/24 04/11/24 History nystatin 100,000 unit/gram topical 1 applic topical BID PRN Rash 04/04/24 09/08/24 04/11/24 History ointment vitamin B complex 1 tablet PO DAILY 04/04/24 09/08/24 04/11/24 History allopurinol 100 mg tablet 100 mg PO DAILY 07/21/24 09/08/24 Unknown History bupropion HCl 150 mg 24 hr tablet, 150 mg PO DAILY 07/21/24 09/08/24 Unknown History extended release buspirone 15 mg tablet 15 mg PO DAILY 07/21/24 09/08/24 Unknown History carvedilol 6.25 mg tablet 6.25 mg PO DAILY 07/21/24 09/08/24 Unknown History pramipexole 0.25 mg tablet 0.25 mg PO BID 07/21/24 09/08/24 Unknown History venlafaxine 75 mg capsule,extended 125 mg PO DAILY 07/21/24 09/08/24 Unknown History release 24 hr (Effexor XR) Allergies Allergy/AdvReac Type Severity Reaction Status Date / Time Vcrnrgx-QEW-WaY Reductase Allergy Intermediate Other Verified 09/30/24 09:43 Inhibitor pseudoephedrine Allergy Unknown Hives Verified 09/30/24 09:43 NSAIDS (Non-Steroidal AdvReac Intermediate Other Verified 09/30/24 09:43 Anti-Inflamma oxycodone AdvReac Intermediate Itching Verified 09/30/24 09:43 atenolol AdvReac Mild Muscle Pain Verified 09/30/24 09:43 exenatide (From Bydureon) AdvReac Mild Diarrhea Verified 09/30/24 09:43 hydrocodone (From Panlor AdvReac Mild Itching Verified 09/30/24 09:43 (hydrocodone-acetamin)) prochlorperazine (From AdvReac Mild Itching Verified 09/30/24 09:43 Compazine) rice AdvReac Mild Heartburn Verified 09/30/24 09:43 PMF Past Medical History Medical History Diabetic polyneuropathy MCI (mild cognitive impairment) Metabolic encephalopathy Type 2 diabetes mellitus (1989) Restless leg syndrome Hypothyroidism Minimal cognitive impairment Chronic anticoagulation Paroxysmal atrial fibrillation Degeneration of lumbar or lumbosacral intervertebral disc Ataxia Mixed hyperlipidemia Macular degeneration Diabetic peripheral neuropathy Obstructive sleep apnea on CPAP Dysphagia Knee osteoarthritis Venous stasis dermatitis Skin cancer Hypertension Anxiety Depression Anemia Breast cancer Surgical History Surgical History History of cataract removal with insertion of prosthetic lens History of coronary artery stent placement History of cardiac catheterization History of right hip replacement (2018) History of reconstruction of right breast Normal esophagogastroduodenoscopy (EGD) History of right mastectomy History of cholecystectomy Family History Family History Father Hypertension COPD (chronic obstructive pulmonary disease) Heart disease Diabetes mellitus Mother Lung cancer Depression Sibling Acute basophilic leukemia Sepsis Diabetes mellitus Acute myocardial infarction Daughter Depression Drug overdose Sibling No problems noted. Social History Social History Social History: Surrogate medical decision maker: Luis Rome, jayne. Code status: Full code. Smoking status: Never smoker Second hand tobacco smoke exposure: Yes Alcohol intake: never Substance use: never Substance use type: does not use Do You Feel Safe in your Home?: Yes Lack of Transportation: No Lack of Food: Never True Current Housing: I Have Housing Concerned About Future Housing: No Difficulty Paying Gas/Electric Bills: No Difficulty Paying for Meds: No Currently Unemployed: No Education: High School Diploma/GED Difficulty w/ Childcare or Family Care: No Living arrangements: alone Additional living arrangements comments: . Lives alone. Has 2 children, daughter . Occupation/Education: retired Additional occupation/education comments: [employer] Spiritual care concerns: No Exam Narrative: APPEARANCE: No apparent distress. Head: atraumatic. EYES: EOMI, NOSE: Atraumatic NECK: Trachea midline RESPIRATORY: No increased rate of breathing CTAB CARDIOVASCULAR: RRR, pitting edema lower extremities ABDOMINAL: Non-distended MUSCULOSKELETAl: Head to toe trauma exam performed with no areas of tenderness or injury. NEURO: Alert. Cranial nerves 2-12 grossly intact. Sensation light touch, motor function cerebellar function intact for 4 extremities. Gait exam was normal. SKIN:: Warm, dry. Normal color PSYCHIATRIC: Normal affect Course Vital Signs Vital signs: Vital Signs Temperature 97.8 F 10/05/24 20:00 Pulse Rate 100 10/05/24 20:00 Respiratory Rate 16 10/05/24 20:00 Blood Pressure 132/78 10/05/24 20:00 Pulse Oximetry 98 10/05/24 20:00 Oxygen Delivery Nasal Cannula 10/05/24 20:00 Oxygen Flow Rate 4 10/05/24 20:00 Temperature 97.8 F 10/05/24 20:00 Pulse Rate 100 10/05/24 20:00 Respiratory Rate 16 10/05/24 20:00 Blood Pressure 132/78 10/05/24 20:00 Pulse Oximetry 97 10/05/24 20:16 Oxygen Delivery Nasal Cannula 10/05/24 20:16 Oxygen Flow Rate 2 10/05/24 20:16 Medical Decision Making MDM Narrative Medical decision making narrative: -Course: 78-year-old female presenting after a fall out of bed. She has no injuries and no complaints. Vital signs stable. No signs of trauma her exam. CT head and C-spine were negative for acute injury. Patient be discharged back to detention. Return if condition changes. -DDX includes but is not limited to: ICH, concussion, traumatic injury soft tissue injury Vital Signs Vital Signs: Vital Signs Temperature 97.8 F 10/05/24 20:00 Pulse Rate 100 10/05/24 20:00 Respiratory Rate 16 10/05/24 20:00 Blood Pressure 132/78 10/05/24 20:00 Pulse Oximetry 98 10/05/24 20:00 Oxygen Delivery Nasal Cannula 10/05/24 20:00 Oxygen Flow Rate 4 10/05/24 20:00 Temperature 97.8 F 10/05/24 20:00 Pulse Rate 100 10/05/24 20:00 Respiratory Rate 16 10/05/24 20:00 Blood Pressure 132/78 10/05/24 20:00 Pulse Oximetry 97 10/05/24 20:16 Oxygen Delivery Nasal Cannula 10/05/24 20:16 Oxygen Flow Rate 2 10/05/24 20:16 Discharge Plan Discharge Clinical Impression: Fall Patient Disposition: Home, Self-Care Condition: Stable Instructions: Antibiotic Form, Fall Prevention (ED) Additional Instructions: Aleksandra was seen after a fall. CT head and C-spine is negative for traumatic injury. She can return to the ED if she develops any new symptoms or would like re-evaluation Patient Language: Nepalese Prescriptions: No Action Repatha SureClick 140 mg/mL pen injector 140 mg subcut Q14D divalproex [Depakote] 500 mg tablet,delayed release (DR/EC) 500 mg PO HS insulin lispro [Humalog KwikPen Insulin] 100 unit/mL insulin pen 14 unit subcut .tidac MDD 60 90 Days Qty: 54 1RF Rx Instructions: 14 units tid ac with a sliding scale For blood sugars 150-200- take 2 unit 201- 250- take 4 units 251 - 300- take 6 units 301- 350- take 8 units 351 - 400- take 10 units more than 401- take 12 units PreserVision AREDS-2 250-90-40-1 mg Tablet,Chewable 1 tablet PO Q12H calcium carbonate-vitamin D3 600 mg-5 mcg (200 unit) Tablet 1 tablet PO DAILY vitamin B complex Tablet 1 tablet PO DAILY nystatin 100,000 unit/gram ointment 1 applic topical BID PRN (Reason: Rash) Rx Instructions: apply to groin area famotidine 20 mg tablet 20 mg PO HS memantine 10 mg tablet 10 mg PO Q12H venlafaxine [Effexor XR] 75 mg Capsule,Extended Release 24hr 125 mg PO DAILY carvedilol 6.25 mg tablet 6.25 mg PO DAILY allopurinol 100 mg tablet 100 mg PO DAILY Rx Instructions: TAKE 1 TABLET BY MOUTH EVERY DAY pramipexole 0.25 mg tablet 0.25 mg PO BID buspirone 15 mg tablet 15 mg PO DAILY bupropion HCl 150 mg tablet extended release 24 hr 150 mg PO DAILY diltiazem HCl 120 mg Capsule,Extended Release 24 Hr 240 mg PO QAM Qty: 90 0RF bumetanide 1 mg Tablet 1 mg PO DAILY Qty: 90 0RF ferrous sulfate [Slow Release Iron] 142 mg (45 mg iron) Tablet Extended Relea se 142 mg PO DAILY@0800 Qty: 90 0RF polyethylene glycol 3350 [Miralax] 17 gram Powder In Packet 17 g PO QAM PRN (Reason: Constipation) Qty: 30 0RF levothyroxine [Synthroid] 100 mcg Tablet 100 mcg PO DAILY@0630 Qty: 90 0RF metoprolol tartrate 50 mg Tablet 100 mg PO Q12HR Qty: 90 0RF insulin glargine U-300 conc [Toujeo Max U-300 SoloStar] 300 unit/mL (3 mL) insulin pen 10 unit subcut DAILY 90 Days Qty: 15 1RF (DME) blood-glucose meter [Blood Glucose Monitoring] Kit See Rx Instructions .ROUTE .MEDSUPPLY Qty: 1 0RF Rx Instructions: As directed Eliquis 5 mg tablet 5 mg PO Q12H Qty: 90 4RF isosorbide dinitrate 10 mg tablet 10 mg PO Q12H Qty: 90 1RF trospium 20 mg tablet 20 mg PO Q12H Qty: 30 1RF mupirocin 2 % ointment 1 applic topical BID Qty: 22 0RF omeprazole 40 mg capsule,delayed release(DR/EC) 40 mg PO DAILY Qty: 30 5RF Rx Instructions: take 1 capsule q.a.m. on empty stomach and wait 15 minutes to eat or drink Follow-up/Referrals: Sarbjit Lai MD [Primary Care Provider] -
[2024-10-06 00:19] VITALS: BP 136/99; PULSE 105; RESP 20; O2SAT 97
[2024-10-06 01:37] VITALS: BP 122/88; PULSE 120; RESP 17; O2SAT 97
[2024-10-06 03:15] VITALS: BP 113/58; PULSE 105; RESP 16; O2SAT 97
== END 2024-10-06 03:16 ==
PROVIDERS: Emergency Provider Emergency Medicine; PCP Family Medicine
DX: Z04.3 Encounter for examination and observation following other accident (principal); I48.0 Paroxysmal atrial fibrillation; E11.42 Type 2 diabetes mellitus with diabetic polyneuropathy; E03.9 Hypothyroidism, unspecified; E78.2 Mixed hyperlipidemia; H35.30 Unspecified macular degeneration; G93.41 Metabolic encephalopathy; G25.81 Restless legs syndrome; G31.84 Mild cognitive impairment of uncertain or unknown etiology; G47.33 Obstructive sleep apnea (adult) (pediatric); F41.9 Anxiety disorder, unspecified; F32.A Depression, unspecified; Z95.5 Presence of coronary angioplasty implant and graft; Z96.641 Presence of right artificial hip joint; Z85.828 Personal history of other malignant neoplasm of skin; Z85.3 Personal history of malignant neoplasm of breast; Z96.1 Presence of intraocular lens; Z98.49 Cataract extraction status, unspecified eye; Z90.11 Acquired absence of right breast and nipple; Z90.49 Acquired absence of other specified parts of digestive tract; Z79.899 Other long term (current) drug therapy; Z77.22 Contact with and (suspected) exposure to environmental tobacco smoke (acute) (chronic); Z79.01 Long term (current) use of anticoagulants; Z79.4 Long term (current) use of insulin; W06.XXXA Fall from bed, initial encounter
CPT/HCPCS: 70450; 72125; 99284

== ENCOUNTER 2024-10-25 12:29 | Inpatient (IN) | payer MEDICARE, SELFPAY ==
[2024-10-25] VITALS (13 sets, daily range): BP systolic 93–138; BP diastolic 56–89; PULSE 97–123; RESP 16–25; TEMP 36.4–37.6; O2SAT 92–100; BMI 43.5
--- NOTE | ~2024-10-25 | XR_ITS ---
EXAMINATION: XR chest 1V portable DATE: 10/25/2024 13:58 INDICATION: Shortness of breath. TECHNIQUE: A single frontal view of the chest was obtained. COMPARISON: Chest single view 08/24/2024, chest CT 08/06/2024 FINDINGS: There are airspace opacities in left lower lobe. No pleural effusion or pneumothorax. The h eart size is normal. IMPRESSION: 1. Left lower lobe airspace opacities, consistent with atelectasis versus pneumonia. Reviewed, dictated and finalized at location A. RIDE OPERATOR IMPRESSION: 1. Left lower lobe airspace opacities, consistent with atelectasis versus pneum onia.
--- NOTE | ~2024-10-25 | US_ITS ---
EXAMINATION:US venous doppler LE BI INDICATION:Bilateral lower extremity edema TECHNIQUE: Multiple grayscale, color flow and Doppler images of the right and left lower extremity de ep venous systems were obtained and reviewed. COMPARISON:Ultrasound dated 02/24/2023 FINDINGS: The common femoral, superficial femoral and popliteal veins demonstrate normal respiratory variation, augmentation and compressibility. Color flow is also seen within the posterior tibial, pe roneal, greater saphenous and profunda veins. IMPRESSION: 1: No lower extremity deep venous thrombosis. Reviewed, dictated and finalized at location [] BIT CLEANER
--- NOTE | 2024-10-25 12:35 | ECG_ITS ---
Test Date: 2024-10-25 12:40:16 Measurements Intervals [place] Rate: 117 P: 0 CO: 0 QRS: 62 QRSD: 87 T: 32 QT: 362 QTc: 506 Interpretive Statements ATRIAL FIBRILLATION WITH RAPID VENTRICULAR RESPONSE CONSIDER ANTERIOR INFARCT, AGE INDETERMINATE BORDERLINE ST-T WAVE ABNORMALITY- DIFFUSE LEADS BASELINE ARTIFACT- I, II, III, AVR, AVL, AVF, V1 ABNORMAL ECG Compared to ECG 08/16/2024 23:44:46 NO SIGNIFICANT CHANGE Electronically Signed On 10-25-2024 12:50:01 VESSEL OPERATOR by Anupam Mcdowell D.O.
--- NOTE | 2024-10-25 12:39 | ED_ITS ---
HPI - General Adult General Chief complaint: Shortness of Breath/Dyspnea Stated complaint: SOB, increased confusion Time Seen by Provider: 10/25/24 12:33 History of Present Illness HPI narrative: 78-year-old female presenting to the emergency department for evaluation for worsening shortness of breath. jail noted that the patient was having increased workup breathing. They found that she was 70 % on room air. Patient does not normal have an O2 requirement. Patient was placed on 4 L of oxygen by nasal cannula. Upon arrival emergency department patient does have audible congestion is an AFib with a heart rate of 127. Patient is alert but does appear lethargic. Patient denies any complaints. Related Data Home Medications ?Medication ?Instructions ?Recorded ?Confirmed ?Last Taken ?Type divalproex 500 mg tablet,delayed 500 mg PO HS 03/06/22 10/25/24 09/08/24 19:20 History release (Depakote) 500 mg vit C 250 mg-E 90 mg-zinc 40 1 tablet PO Q12H 03/27/23 10/25/24 09/08/24 History mg-copper 1 ln-yyspsg-thhlok chew 1 tablet tablet (PreserVision AREDS-2) evolocumab 140 mg/mL subcutaneous 140 mg subcut Q14D 07/13/23 10/25/24 09/08/24 History pen injector (Repatha Alanaick) 140 mg calcium 600 mg (as 1 tablet PO DAILY 04/04/24 10/25/24 04/11/24 History carbonate)-vitamin D3 5 mcg (200 unit) tablet famotidine 20 mg tablet 20 mg PO HS 04/04/24 10/25/24 09/08/24 History 20 mg memantine 10 mg tablet 10 mg PO Q12H 04/04/24 10/25/24 09/08/24 History 10 mg nystatin 100,000 unit/gram topical 1 applic topical BID PRN Rash 04/04/24 10/25/24 09/08/24 History ointment 1 applic vitamin B complex 1 tablet PO DAILY 04/04/24 10/25/24 09/08/24 History 1 tablet allopurinol 100 mg tablet 100 mg PO DAILY 07/21/24 10/25/24 07/21/24 19:17 History 100 mg bupropion HCl 150 mg 24 hr tablet, 150 mg PO DAILY 07/21/24 10/25/24 07/21/24 19:19 History extended release 150 mg buspirone 15 mg tablet 15 mg PO DAILY 07/21/24 10/25/24 07/21/24 19:19 History 15 mg carvedilol 6.25 mg tablet 6.25 mg PO DAILY 07/21/24 10/25/24 10/24/24 19:20 History 6.25 mg pramipexole 0.25 mg tablet 0.25 mg PO BID 07/21/24 10/25/24 09/08/24 History 0.25 mg venlafaxine 75 mg capsule,extended 125 mg PO DAILY 07/21/24 10/25/24 09/08/24 History release 24 hr (Effexor XR) 125.0025 mg Allergies Allergy/AdvReac Type Severity Reaction Status Date / Time Oczjstv-BMO-CmX Reductase Allergy Intermediate Other Verified 09/30/24 09:43 Inhibitor pseudoephedrine Allergy Unknown Hives Verified 09/30/24 09:43 NSAIDS (Non-Steroidal AdvReac Intermediate Other Verified 09/30/24 09:43 Anti-Inflamma oxycodone AdvReac Intermediate Itching Verified 09/30/24 09:43 atenolol AdvReac Mild Muscle Pain Verified 09/30/24 09:43 exenatide (From Bydureon) AdvReac Mild Diarrhea Verified 09/30/24 09:43 hydrocodone (From Panlor AdvReac Mild Itching Verified 09/30/24 09:43 (hydrocodone-acetamin)) prochlorperazine (From AdvReac Mild Itching Verified 09/30/24 09:43 Compazine) rice AdvReac Mild Heartburn Verified 09/30/24 09:43 Review of Systems 2 Review of Systems: All systems reviewed & are unremarkable except as noted in HPI and below PMFSH Past Medical History Medical History Mild cognitive impairment Diabetic polyneuropathy Metabolic encephalopathy Type 2 diabetes mellitus (1989) Restless leg syndrome Hypothyroidism Chronic anticoagulation Paroxysmal atrial fibrillation Degeneration of lumbar or lumbosacral intervertebral disc Ataxia Mixed hyperlipidemia Macular degeneration Diabetic peripheral neuropathy Obstructive sleep apnea on CPAP Dysphagia Knee osteoarthritis Venous stasis dermatitis Skin cancer Hypertension Anxiety Depression Anemia Breast cancer Surgical History Surgical History History of cataract removal with insertion of prosthetic lens History of coronary artery stent placement History of cardiac catheterization History of right hip replacement (2018) History of reconstruction of right breast Normal esophagogastroduodenoscopy (EGD) History of right mastectomy History of cholecystectomy Family History Family History Father Hypertension COPD (chronic obstructive pulmonary disease) Heart disease Diabetes mellitus Mother Lung cancer Depression Sibling Acute basophilic leukemia Sepsis Diabetes mellitus Acute myocardial infarction Daughter Depression Drug overdose Sibling No problems noted. Social History Social History Social History: Surrogate medical decision maker: jayne Du. Code status: Full code. Smoking status: Never smoker Second hand tobacco smoke exposure: No Alcohol intake: never Substance use: never Substance use type: does not use Do You Feel Safe in your Home?: Yes Lack of Transportation: No Lack of Food: Never True Current Housing: I Have Housing Concerned About Future Housing: No Difficulty Paying Gas/Electric Bills: No Difficulty Paying for Meds: No Currently Unemployed: No Education: High School Diploma/GED Difficulty w/ Childcare or Family Care: No Living arrangements: alone Additional living arrangements comments: . Lives alone. Has 2 children, daughter . 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 EYES: PERRLA/EOMI, conjunctivae clear. NOSE: Normal no drainage EARS:TMS clear with good light reflex. THROAT: Pharynx clear, no exudate. NECK: Supple. No adenopathy, no masses. RESPIRATORY: Congested lung sounds bilaterally CARDIOVASCULAR: Regular rate and rhythm without murmurs rubs or gallops. ABDOMINAL: Soft, nontender, nondistended, normal bowel sounds MUSCULOSKELETAL: +3 pitting edema on lower extremities bilaterally NEURO: Alert. Cranial nerves II through XII intact. Good gait. Good coordination SKIN: Warm, dry. Normal Color Course Vital Signs Vital signs: Vital Signs Temperature 97.6 F 10/25/24 12:29 Pulse Rate 123 H 10/25/24 12:29 Respiratory Rate 25 H 10/25/24 12:29 Blood Pressure 114/87 10/25/24 12:29 Pulse Oximetry 98 10/25/24 12:29 Oxygen Delivery Nasal Cannula 10/25/24 12:29 Oxygen Flow Rate 4 10/25/24 12:29 Temperature 99.0 F 10/25/24 20:00 Pulse Rate 103 H 10/25/24 20:00 Respiratory Rate 20 10/25/24 20:00 Blood Pressure 134/80 10/25/24 20:00 Pulse Oximetry 100 10/25/24 20:00 Oxygen Delivery BiPAP 10/25/24 16:30 Oxygen Flow Rate 4 10/25/24 12:29 Fraction of Inspired Oxygen 40 10/25/24 16:30 Medical Decision Making MDM Narrative Medical decision making narrative: 78-year-old female presents emergency department for evaluation for increased work of breathing. Patient did have audible congestion upon arrival to the emergency department. Patient's heart rate was in the 130s upon arrival. ABG showed no significant abnormalities but due to the patient's tachypnea and increased work of breathing and concern for fluid overload patient was started on BiPAP. Patient is tolerating this well. Patient is currently afebrile with no leukocytosis and hemoglobin of 10.6. Patient's potassium was 2.7 this was replaced orally. Patient's creatinine is 1.8 which is better than her baseline of 2.3[place] [address] which is significantly higher than her baseline. Urine did have leukocyte esterase positive 6-10 red blood cells but greater than 100 white blood cells. Patient was negative for influenza RSV and for COVID, chest x-ray showed left lower lobe airspace opacities consistent with atelectasis versus pneumonia. Patient was started on Rocephin and azithromycin. Patient was treated with a dose of IV Cardizem and this did slow her heart rate temporarily. Patient's heart rate did increase back to 115 so patient will be started arm another Cardizem bolus and Cardizem infusion. Patient also be treated with a dose of IV Lasix. Differential Diagnosis Differential Diagnosis: COVID, RSV, influenza, CHF, pneumonia, pulmonary embolism Vital Signs Vital Signs: Vital Signs Temperature 97.6 F 10/25/24 12:29 Pulse Rate 123 H 10/25/24 12:29 Respiratory Rate 25 H 10/25/24 12:29 Blood Pressure 114/87 10/25/24 12:29 Pulse Oximetry 98 10/25/24 12:29 Oxygen Delivery Nasal Cannula 10/25/24 12:29 Oxygen Flow Rate 4 10/25/24 12:29 Temperature 99.0 F 10/25/24 20:00 Pulse Rate 103 H 10/25/24 20:00 Respiratory Rate 20 10/25/24 20:00 Blood Pressure 134/80 10/25/24 20:00 Pulse Oximetry 100 10/25/24 20:00 Oxygen Delivery BiPAP 10/25/24 16:30 Oxygen Flow Rate 4 10/25/24 12:29 Fraction of Inspired Oxygen 40 10/25/24 16:30 Lab Data Lab results reviewed: Yes I reviewed the patient's lab results. 10/25/24 13:13 10/25/24 13:13 Labs: Lab Results 10/25/24 10/25/24 Range/Units 13:13 13:48 WBC 8.5 (4.5-10.0) K/mm3 RBC 3.96 L (4.2-5.4) M/mm3 Hgb 10.6 L (12.0-15.0) g/dL Hct 35.0 L (37.0-47.0) % MCV 88.4 (80-100) fl MCH 26.8 (26-34) pg MCHC 30.3 L (32-36) g/dl RDW 23.2 H (11.5-14.5) % Plt Count 175 (150-375) k/mm3 MPV 10.5 H (7.4-10.4) fl Immature Gran % (Auto) 0.2 (0-0.5) % Neut % (Auto) 86.6 H (45.5-73.1) % Lymph % (Auto) 6.6 L (18.3-44.2) % Hawkins % (Auto) 5.9 (2.6-8.5) % Eos % (Auto) 0.2 (0-4.4) % Baso % (Auto) 0.5 (0.2-1.2) % Lymph # (Auto) 0.56 L (0.9-3.2) K/mm3 Hawkins # (Auto) 0.5 (0.1-0.6) K/mm3 Eos # (Auto) 0.0 (0-0.3) K/mm3 Baso # (Auto) 0.0 (0.0-0.1) K/mm3 Abs Immat Gran (auto) 0.02 (0.00-0.031) K/mm3 Absolute Neuts (auto) 7.3 H (1.3-6.7) K/mm3 Absolute Nucleated RBC 0.000 (0.0-0.012) K/mm3 Band Neutrophils % Not Reportable Nucleated RBC % 0.0 (0.0-0.2) % Platelet Estimate Adequate (Adequate) Hypochromasia 1+ Anisocytosis 2+ Target Cells 1+ Ovalocytes 1+ Schistocytes None seen PT 20.7 H (11.1-14.7) Seconds INR 1.8 APTT 31.7 (22.3-36.8) Seconds Sodium 141 (137-145) mmol/L Potassium 2.7 L* (3.4-5.0) mmol/L Chloride 101 (98-107) mmol/L Carbon Dioxide 31 H (22-30) mmol/L Anion Gap 9 (4-12) mmol/L BUN 36 H D (7-17) mg/dL Creatinine 1.80 H (0.7-1.0) mg/dL Estim Creat Clear Calc Not Reportable Estimated GFR 27 L (59 - ) Glucose 106 (65-110) mg/dL Lactic Acid 1.5 (0.7-2.0) mmol/L Calcium 8.7 (8.4-10.2) mg/dL Total Bilirubin 0.6 (0.2-1.3) mg/dL AST 25 (14-36) U/L ALT 22 (6-35) U/L Alkaline Phosphatase 166 H (38-126) U/L NT-Pro-B Natriuret Pep 48850 H (19.9-100) pg/mL Total Protein 7.0 (6.3-8.2) g/dL Albumin 3.0 L (3.5-5.1) g/dL Procalcitonin 0.4 ng/mL Urine Color Yellow (Yellow) Urine Appearance Cloudy H (Clear) Urine pH 5.0 (5.0-9.0) Ur Specific [place] 1.010 (1.001-1.035) Urine Protein Negative (Negative) mg/dL Urine Glucose (UA) Negative (Negative) mg/dL Urine Ketones Negative (Negative) mg/dL Ur Blood (Man) 2+ H (Negative) Urine Nitrate Negative (Negative) Urine Bilirubin Negative (Negative) Urine Urobilinogen 0.2 (<2.0) mg/dL Add Ur Microanalysis Reviewed Leukocyte Esterase Rfl 3+ H (Negative) MARIA EUGENIA/UL Urine RBC 6-10 H (0-2) /hpf Urine WBC >100 H (0-3) /hpf Ur Squamous Epith Cells None seen (Few) /hpf Urine Bacteria None seen /hpf Urine Casts 3-5 Influenza A (RT-PCR) Negative (Negative) Influenza B (RT-PCR) Negative (Negative) RSV (RT-PCR) Negative (Negative) SARS-CoV-2 RNA (RT-PCR) Negative (Negative) ABG Data ABG results: 10/25/24 12:57 Puncture Site Right radial ABG pH 7.471 H ABG pCO2 37.6 ABG pO2 184.0 H ABG PO2/FiO2 Ratio 5.11 ABG HCO3 26.8 H ABG O2 Saturation 99.3 ABG O2 Content 15.6 L ABG Base Excess 3.1 A-a Gradient 29.1 Oxyhemoglobin 98.5 Total Hemoglobin 11.0 L O2 Delivery Device Nasal cannula O2 Liters/Min 4.0 FiO2 36 Imaging Data Radiologist's impression: Impressions Chest X-Ray 10/25/24 13:58 IMPRESSION: 1. Left lower lobe airspace opacities, consistent with atelectasis versus pneumonia. Critical Care Time Critical Care Time Critical Care Time: Yes Total Critical Care Time: 35 Discharge Plan Discharge Clinical Impression: Urinary tract infection, A-fib, Pneumonia, Hypoxia Patient Disposition: Still a Patient Condition: Serious
--- OUTSIDE RECORDS SUMMARY | 2024-10-25 12:46 | XMS_ITS | Clinical Summary ---
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
--- OUTSIDE RECORDS SUMMARY | 2024-10-25 12:46 | XMS_ITS | Encounter Summary ---
Author Organization [facility] Healthcare Address [address] [place] [address] Care Team Providers Care Fire Investigation Manager Name Role Phone Dayanna Odonnell MD Primary Care Provider Samantha Upton NP Unavailable [phone] Mook Duran MD PhD Unavailable Venice Dobbs RN Unavailable Mohan Mi MD Unavailable Maricarmen Helms MD Unavailable Nicolasa Jackson FINANCIAL ANALYST ACCOUNTANT Unavailable [phone] Bhavya Browne RN Unavailable [phone] Unknown, Notinfile Primary Care Provider Unavail Sarbjit Zambrano MD Primary Care Provider [phone] Reason for Visit * Reason Onset Date Comments Appointment 03/22/2018 Encounter Details Date Type Department Care Team (Late st Contact Info) Description 03/22/2018 Telephone [facility] [place] [facility] [address] [facility] [address] 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 Gender Identity Female 07/19/2020 11:39 AM COLOR STRAINER Sexual Orientation Not on file documented as of this encounter Plan of Treatment Not on file documented as of this encounter Visit Diagnoses Not on filedocumented in this encounter Additional Health Concerns Infection Onset Date Last Indicated Resolved Time COVID: Suspected 08/14/2020 08/14/2020 08/28/2020 3:07 AM COLOR STRAINER documented as of this encounter Care Teams Fire Investigation Manager Relationship Specialty Start Date End Date Dayanna Odonnell MD PCP - General 12/05/16 06/22/22 Unknown, Notinfile PCP - General 06/23/22 08/27/22 Sarbjit Lai MD PCP - General Family Medicine 08/28/22 Samantha Upton NP Nurse Practitioner Internal Medicine 03/23/19 Mook Duran MD PhD [address] [place] [address] Referring Physician Cardiology 03/23/19 Venice Dobbs RN [address] [place] [address] [address] [place] [address] Mosquito Sprayer 04/28/19 01/08/21 Mohan Mi MD [address] [place] [address] [address] [place] [address] Referring Physician Nephrology 08/10/19 Maricarmen Helms MD [address] [facility] [address] [place] [address] Referring Physician Endocrinology Diabetes & Metabolism 08/08/21 Nicolasa Jackson NP [address] [facility] [address] [place] [address] Nurse Practitioner Nurse Practitioner 08/08/21 Bhavya Browne, RN [address] [place] [address] Mosquito Sprayer 02/27/22 03/24/22 documented as of this encounter
--- OUTSIDE RECORDS SUMMARY | 2024-10-25 12:47 | XMS_ITS | Referral Summary ---
Author Organization [facility] Address [address] [place] [address] Care Team Providers Care Sand Operator Name Role Phone Margaux Eduardo MD Primary Care Provider [phone] Source Comments [facility],non-owned Affiliates and Associated Physician Practices is amultiple site organization consisting of ambulatory clinics and hospital sitesin [place], [place], [place] and [place]. This disclosure is being madepursuant to the Care Everywhere program and may not contain all information available regarding this patient. Last updated 18.[facility] [employer]ed Sail Social History Tobacco Use Types Packs/Day Years Used Date Smoking Tobacco: Never Assessed Sex and Gender Information Value Date Recorded Sex Assigned at Not on file Gender Identity Not on file Sexual Orientation Not on file Plan of Treatment Not on file Care Teams Sand Operator Relationship Specialty Start Date End Date Margaux Eduardo MD [address] [place] [address] PCP - General 08/12/22
--- OUTSIDE RECORDS SUMMARY | 2024-10-25 12:47 | XMS_ITS ---
Author Organization [facility] Address [facility] [facility] [address] [facility] [address] [place] [address] Care Team Providers Care Peg Driver Name Role Phone Pia Orozco PA-C Primary Care Provider UnavailMadhav Roger Unavailable [phone] Social History Sex Assigned At : Social History Observation Description Sex Assigned At Female Encounters Encounter Location Date Provider Diagnosis [facility] [place] [address] [facility] [address] [place] [address] 08/19/2024 Madhav Kelsey Plan Of Treatment No Information Progress Notes * MIKE KOWALSKI LDOB: 7 (78 yo F)Acc No.[id number]:08/19/2024 Patient: MIKE CHACKO Provider: Jeferson KELSEY MD :1945 A ge:78 Y S ex:Female Date:08/19/2024 Address:[address] [place] [address] [address] [facility] Pcp:Pia Orozco PA-C Subjective: * Chief Complaints: * * Medical History: Objective: * Vitals: Assessment: Plan: * Treatment: * Procedure Codes: N S NO SHOW * Billing Information: * Visit Code: * Procedure Codes: NS NO SHOW. * ALTERATIONS SEAMSTRESS Sign off status: Completed true * Provider: Jeferson KELSEY MD Date: 1 10/20/2023 Generated for Printi ng/Fasakina/eTransmitting on: 0 10/25/2024 12:47 PM HAND ALTERATIONS SEAMSTRESS
--- OUTSIDE RECORDS SUMMARY | 2024-10-25 12:47 | XMS_ITS ---
Author Organization [facility] [employer] [facility] Address [facility] [place] [address] [facility] [address] [place] [address] Care Team Providers Care Heavy Repairer Name Role Phone Pia Orozco PA-C Primary Care Provider UnavailMadhav Roger Unavailable [phone] Social History Sex Assigned At : Social History Observation Description Sex Assigned At Female Encounters Encounter Location Date Provider Diagnosis [facility] [employer] [place] [address] [address] [facility] [place] [address] [facility] [address] [place] [address] 04/28/2024 Madhav Kelsey Plan Of Treatment No Information Progress Notes * MIKE KOWALSKI LDOB: 7 (78 yo F)Acc No.[id number]:04/28/2024 Patient: MIKE CHACKO Provider: Jeferson KELSEY MD :1945 A ge:78 Y S ex:Female Date:04/28/2024 Address:[address] [place] [address] [address] [facility] Subjective: * Chief Complaints: * * Medical History: Objective: * Vitals: Assessment: Plan: * Treatment: * Procedure Codes: N S NO SHOW * Billing Information: * Visit Code: * Procedure Codes: NS NO SHOW. * Sign off status: Completed true * Provider: Jeferson KELSEY MD Date: 0 04/28/2024 Generated for Annettai mariam/Camilo/eTransmitting on: 10/25/2024 12:47 PM AUTO MECHANICS TEACHER
--- OUTSIDE RECORDS SUMMARY | 2024-10-25 12:47 | XMS_ITS | Clinical Summary ---
Author Organization [facility] Address [address] [place] [address] Care Team Providers Care Manager Star Name Role Phone Samantha Upton NP Unavailable [phone] Mook Duran MD PhD Unavailable [phone] Mohan Mi MD Unavailable Maricarmen Helms MD Unavailable [phone] Nicolasa Jackson NP Unavailable [phone] Sarbjit Lai MD Primary Care Provider [phone] Allergies Active Allergy Reactions Criticality Noted Date Comments Atenolol Syncope,Muscle pain,Shortness of breath,Mental status changes High Reaction: Syncope/Low BP, Myalgia, Short of breath, Mental Status Changes, Exenatide Microspheres Diarrhea Low 07/27/2017 Prochlorperazine Edisylate Itching,Anxiety Low Hydrocodone-Acetaminophen Itching Low Nsaids (Non-Steroidal Anti-Inflammatory Drug) Unknown 01/18/2018 Not supposed to take because of kidneys Oxycodone-Acetaminophen Itching Low Rice Other (See comments) Low 02/28/2020 Heart burn Qlhvolj-Kya-Pej Reductase Inhibitors Muscle pain Medium 06/07/2014 Medications [...] DINNER 02/05/20 23 023 Discontin ued(Other ) Active Problems Problem Noted Date Diagnosed Date Paroxysmal atrial fibrillation ([facility]) 023 S/P coronary artery stent placement 07/09/2023 Chronic anticoagulation 07/09/2023 Multiple vessel coronary artery disease 05/27/20 23 Chest pain 05/24/2023 Coronary artery disease invo lving round valley coronary artery of round valley heart without angina pectoris 04/22/2023 Mixed diabetic hyperlipidemi a associated with type 2 diabetes mellitus 12/31/2022 Shortness of breath 12/31/2022 Pulmonary HTN 12/31/2022 Morbid (severe) obesity due to excess calories 0 03/03/2022 Body mass index 40.0-44.9, adult ([facility]) 03/03 Cognitive impairment 02/26/2022 Hypoglycemia 02/21/2022 Gout 02/21/2022 Type 2 diabetes mellitus wit h diabetic peripheral angiopathy without gangrene 02/21/2022 Venous stasis 01/29/2022 Has immunity to COVID-19 virus 08/06/2021 Overview (08/06/2021): Moderna vaccine 11/22/2020, 10/25/2020, 05/10/2021 Assessment & Plan (08/06/2021 4:37 PM BUSINESS PLANNING ANALYST): Moderna vaccine 11/22/2020, 10/25/2020, 05/10/2021 Otitis externa [...] function. Assessment & Plan (08/08/2021 2:26 PM BUSINESS PLANNING ANALYST): Need to minimize risk of hypoglycemia, but [...] (03/12/2020): Added automatically from request for surgery [id number] History of esophagitis 03/12/2020 Overview (03/12/2020): Added automatically from request for surgery [id number] Morbid obesity with BMI of 40.0-44.9, adult [...] in erythema with abx. -Seen by wound bridge tender yesterday. -Advised patient that she will [...] for a 5-7d course for now. -Wound bridge tender c/s. -Advised patient that she will [...] 10/25/2018 Assessment & Plan (10/25/2018 9:02 PM BUSINESS PLANNING ANALYST): This is a 72-year-old woman with a [...] consult. Assessment & Plan (10/27/2018 10:49 AM BUSINESS PLANNING ANALYST): -Declined inpatient titration of depakote, experienced altered mental status and increased lethargy when initiating as outpatient at dose of 500mg BID as outpatient. Pt lives alone and would be poor candidate for repeat trial with sedating medications. -Mental status improved after holding depakote -Brain MRI performed per psychiatry recs, read pending -Psychiatry following, planning or voluntary inpatient admission to [facility] only today -TSH 1.8, UDS pending [...] hyperglycemia. Assessment & Plan (10/31/2021 6:00 PM BUSINESS PLANNING ANALYST): No recent Hemoglobin A1c. There are no [...] support. Assessment & Plan (08/08/2021 2:26 PM BUSINESS PLANNING ANALYST): Extremely high glucoses, so she needs much [...] MDSSI Assessment & Plan (10/29/2018 9:30 AM BUSINESS PLANNING ANALYST): Patient's glucose was elevated of 478 on admission, likely secondary to patient admitting having difficulty complying with medication due to confusion and somnolence in the setting of starting Depakote - Continue Lantus 20 units q.d., lispro 5 units t.i.d. before meals in mid dose sliding scale. Assessment & Plan (10/28/2018 8:27 AM BUSINESS PLANNING ANALYST): Patient's glucose was elevated of 478 on admission, likely secondary to patient admitting having difficulty complying with medication due to confusion and somnolence in the setting of starting Depakote Plan: - Continue Lantus 20 units q.d., lispro 5 units t.i.d. before meals in mid dose sliding scale. Assessment & Plan (10/28/2018 8:20 AM BUSINESS PLANNING ANALYST): Patient's glucose was elevated of 478 on admission, likely secondary to patient admitting having difficulty complying with medication due to confusion and somnolence in the setting of starting Depakote Plan: - Continue Lantus 20 units q.d., lispro 5 units t.i.d. before meals in mid dose sliding scale. Assessment & Plan (10/25/2018 1:35 PM BUSINESS PLANNING ANALYST): -Home regimen includes Tresiba 50 daily, Vitoza 1.2 daily, and humalog with meals -Hyperglycemic to 478 on admission, likely due to admitted medication noncompliance while taking Depakote -Resolved quickly after resuming insulin on admission. -Continue lantus 20 units qAM, lispro 5 units TID, mid-dose SSI Assessment & Plan (10/18/2018 7:35 AM BUSINESS PLANNING ANALYST): Recent event when she took her mealtime insulin and then did not eat. She needs to plan to take her insulin after eating Assessment & Plan (06/30/2018 1:50 PM CDT): Decrease Tresiba to 42 u/ day Change humalog to 5-5-10 at meals and 1 u per 25 pts over 150 Chart provided along with explanation Continue santiagoza 1.2 day Referral for dexcom CGM G5 [...] 01/25/2018 Assessment & Plan (08/08/2021 2:26 PM BUSINESS PLANNING ANALYST): Continue chronic supplement recheck labs Assessment & Plan (10/18/2018 7:37 AM BUSINESS PLANNING ANALYST): Continue supplement Assessment & Plan (04/07/2018 3:29 PM CDT): Continue increased supplement Assessment & Plan (01/25/2018 12:34 PM CDT): Continue supplementation. Repeat level today. Arthritis 01/18/2018 GERD (gastroesophageal reflux disease) 8 Assessment & Plan (10/25/2018 1:37 PM BUSINESS PLANNING ANALYST): -Continue protonix. ANDREA on CPAP 09/06/2015 Overview [...] compliance Assessment & Plan (10/29/2018 9:30 AM BUSINESS PLANNING ANALYST): Stable/BIBI. Patient had continued evidence of severe obstructive sleep apnea on September 2017 sleep study. - autoCPAP therapy w/ pressure 12-16 cm H2O and a small AirFit F20 full face mask. Assessment & Plan (10/28/2018 8:26 AM BUSINESS PLANNING ANALYST): Patient had continued evidence of severe obstructive sleep apnea on September 2017 sleep study. Plan: - Consult respiratory care for CPAP - autoCPAP therapy w/ pressure 12-16 cm H2O and a small AirFit F20 full face mask. Assessment & Plan (10/28/2018 8:20 AM BUSINESS PLANNING ANALYST): Patient had continued evidence of severe obstructive [...] up Assessment & Plan (10/29/2018 9:46 AM BUSINESS PLANNING ANALYST): For now, we will be working w/ provisional dx of bipolar disorder unspecified. Somewhat unclear if pt had a manic vs hypomanic episode preceding her hospitalization, but our concern is nonetheless significant. Pt has a hx of well documented sustained depressive episodes w/ collateral revealing she has been spending excessive amounts of money on items on sale after [employer] and an excessive amount of time redecorating her house (wanting to make it a [employer] next year) and working on numerous new pieces of art. These projects have caused her to stay awake for 1-2 days at a time, and she endorses a decreased need for sleep during these b ursts of activity . She has a background as an [...] outpatient Assessment & Plan (10/29/2018 9:30 AM BUSINESS PLANNING ANALYST): For now, we will be working w/ [...] her house (wanting to make it a [employer] next year) and working on numerous new pieces of art. These projects have caused her to stay awake for 1-2 days at a time, and she endorses a decreased need for sleep during these b ursts of activity . She has a background as an [...] outpatient Assessment & Plan (10/28/2018 8:23 AM BUSINESS PLANNING ANALYST): Patient has persistent difficulty discarding or parting [...] aren Assessment & Plan (10/28/2018 8:16 AM BUSINESS PLANNING ANALYST): Patient has persistent difficulty discarding or parting [...] pramipexole Assessment & Plan (10/29/2018 9:30 AM BUSINESS PLANNING ANALYST): Stable/BIBI. -Continue home pramipexole 0.5mg nightly (patient reports she usually takes two at home) Assessment & Plan (10/28/2018 8:27 AM BUSINESS PLANNING ANALYST): -Continue home pramipexole 0.5mg nightly (patient reports she usually takes two at home) Assessment & Plan (10/28/2018 8:17 AM BUSINESS PLANNING ANALYST): -Continue home pramipexole 0.5mg nightly (patient reports she usually takes two at home) Assessment & Plan (10/25/2018 1:36 PM BUSINESS PLANNING ANALYST): -Continue home pramipexole 0.5mg nightly Carcinoma of [...] 10/28/2018 Assessment & Plan (10/25/2018 3:09 AM BUSINESS PLANNING ANALYST): Psychological condition is improving with treatment. Her [...] (05/05/2018): Added automatically from request for surgery [id number] Right posterior capsular opacification 04/05/2018 10/28/2018 Corneal [...] feet daily. Stage 4 chronic kidney disease ([facility]/HCC) 01/25/2018 10/17/2020 Assessment & Plan (10/27/2018 10:50 AM BUSINESS PLANNING ANALYST): -Creatinine 1.50 on admission, increased to 1.70. Will empirically give 1L NS and hold lasix Assessment & Plan (10/18/2018 7:34 AM BUSINESS PLANNING ANALYST): Increased risk of hypoglycemia Assessment & Plan (01/25/2018 12:34 PM CDT): Renal condition is unchanged. Continue current treatment regimen. Renal condition will be reassessed in 6 months. Fatigue 01/18/2018 10/28/2018 Zelda esophagitis ([facility]) 12/11/2017 10/28/2018 Depression, recurrent ([facility]) 08/24/2017 10/28/2018 Assessment & Plan (01/25/2018 12:30 PM CDT): Psychological condition is improving with treatment. Continue current treatment regimen. Psychological condition will be reassessed at the next regular appointment. Valgus deformity of great toe 08/07/2017 10/28/2018 Chronic obstructive pulmonary disease 10/30/2016 04/01/2019 Assessment & Plan (10/25/2018 1:35 PM BUSINESS PLANNING ANALYST): -Continue home spiriva, symbicort, albuterol Knee pain 09/11/2016 10/28/2018 Posterior vitreous detachment 06/25/2016 10/28/2018 Combined forms of age-related cataract 06/25/2016 07/05/2018 Diabetic peripheral neuropathy ([facility]) 11/29/2015 10/28/2018 Overview (12/12/2016): Type 2 diabetes, [...] disease Assessment & Plan (10/18/2018 7:36 AM BUSINESS PLANNING ANALYST): Glucoses tend to be too high, but [...] time. Assessment & Plan (10/27/2018 10:50 AM BUSINESS PLANNING ANALYST): -Coreg 6.25 BID -> 12.5mg BID Assessment & Plan (04/07/2018 3:27 PM CDT): Increased risk of hypoglycemia. Need to maintain a good margin of glycemic safety Blood pressure within target, managed by renal meterman current use of insulin ([facility]) 09/06/2015 10/28/2018 Overview (12/12/2016): Insulin long-term use [...] Department Care Team Description 09/20/2024 9:00 AM BUSINESS PLANNING ANALYST Office Visit [facility] [address] [place] [address] [place] [phone] Kimberly Abernathy NP Persistent atrial fibrillation (HCC) (Primary Dx); Chronic diastolic congestive heart failure (CMS/HCC) (HCC); Coronary artery disease involving round valley coronary artery of round valley heart without angina pectoris; Hypotension due to drugs; Hospital discharge follow-up 08/30/2024 Orders Only [facility] [address] [place] [address] [place] [phone] Zhanna Alfonso MD 08/24/2024 Telephone [place] [address] [place] [phone] Zhanna Alfonso MD cardioversion 08/23/2024 Orders Only [address] [phone] Campbell Shin MD 08/16/2024 Orders Only [place] [address] [place] [phone] Christiano Mai MD 08/01/2024 Telephone [place] [address] [place] [phone] Kimberly Abernathy NP Med Refill 07/27/2024 Orders Only [place] [address] [place] [phone] Zhanna Alfonso MD from Last 3 Months Immunizations Immunization Administration Dates Next Due Influenza, Quadrivalent, Hig [...] apnea Sleep apnea Neuropathy (CMS/HCC) Neuropathy; Comments: KMM 05/15/2015 - Type 2 diabetes mellitus wit h hypoglycemia without coma ([facility]) Type 2 diabetes mellit us with hypoglycemia [...] if no better. Multiple vessel coronary art beebto disease Atrial fibrillation (CMS/HCC) (HCC) Stiff heart [...] often do you attend chur ch or episcopalian services? Never 05/25/2023 Do you belong to any clubs o r organizations such as religion groups, unions, fraternal or athletic groups, or [...] on file Legal Sex Female 7:43 PM BUSINESS PLANNING ANALYST Gender Identity Female 07/19/2020 11:39 AM BUSINESS PLANNING ANALYST Sexual Orientation Not on file Obstetrics History Last Filed Vital Signs Vital Sign Reading Time Taken Comments Blood Pressure 82/54 09/20/2024 9:10 AM BUSINESS PLANNING ANALYST Pulse 99 09/20/2024 9:10 AM BUSINESS PLANNING ANALYST Temperature 36.6 C (97.9 F) 07/21/2023 12:00 AM BUSINESS PLANNING ANALYST Respiratory Rate 18 07/21/2023 12:00 AM BUSINESS PLANNING ANALYST Oxygen Saturation 92% 09/20/2024 9:10 AM BUSINESS PLANNING ANALYST Inhaled Oxygen Concentration - - Weight 105.7 kg (233 lb) 09/20/2024 9:10 AM BUSINESS PLANNING ANALYST Height 165.1 cm (5' 5 ) 09/20/2024 9:10 AM BUSINESS PLANNING ANALYST Body Mass Index 38.77 09/20/2024 9:10 AM BUSINESS PLANNING ANALYST Plan of Treatment Health Maintenance Due Date [...] , 10/28/2021, Additional history exists Covid-19 Vaccine ( - 2023-2 5 season) 2024 07/03/2022, 05/10/2021, 11/22/2020, Additional [...] need for assistive devices. - Refer to if appropriate and patient is agreeable. Medical Devices Implanted Type Area Internet Merchant Device Identifier Shelf Expiration Date Model / Serial / Lot [employer] [id number] 22.0 Tecnis Optiedge 6mm 13mm 3 Piece Anterior Aspheric Monofocal Uv - [id number] - [id number] Implanted:Qty: 1 on 06/16/2018 by Grazyna Watt MD at [facility] Advanced Medicine Lens Left: Eye Rachel [employer] [id number] 01/21/2021 [id number] 22.0 / [id number] / 0 [employer] Sushil Synergy Xd Monorail 2.25mm 38mm 144cm Delivery System 1 Access [id number] - [id number] Implanted:Qty: 1 on 06/17/2023 by Brody Rouse MD at [facility] [employer] [facility] 11/02/2024 [id number] / / [id number] [employer] Sushil Synergy Xd Monorail 2.5mm 12mm 144cm Delivery System 1 Access [id number] - [id number] Implanted:Qty: 1 on 06/17/2023 by Brody Rouse MD at [facility] [employer] [facility] 02/24/2025 [id number] / / [id number] [employer] Sushil Synergy Xd Monorail 3mm 16mm 144cm Delivery System 1 Access Port [id number] - [id number] Implanted:Qty: 1 on 06/17/2023 by Brody Rouse MD at [facility] [employer] [facility] 07/08/2024 [id number] / / [id number] [facility] Angio-Seal Vip 6fr Closere Device [id number] - [id number] Implanted:Qty: 1 on 06/17/2023 by Brody Rouse MD at [facility] [employer] 02/12/2024 [id number] / / [id number] Procedures Procedure Name Priority Date/Time Associated Diagnosis Comments CARDIOLOGY DOCUMENT SCAN Routine 08/25/2024 12:25 PM BUSINESS PLANNING ANALYST CARDIOLOGY DOCUMENT SCAN Routine 08/24/2024 12:14 PM BUSINESS PLANNING ANALYST CARDIOLOGY DOCUMENT SCAN Routine 08/22/2024 8:56 AM BUSINESS PLANNING ANALYST CARDIOLOGY DOCUMENT SCAN Routine 08/13/2024 2:24 PM BUSINESS PLANNING ANALYST CARDIOLOGY DOCUMENT SCAN Routine 08/12/2024 9:01 AM BUSINESS PLANNING ANALYST COMPREHENSIVE METABOLIC PANEL Routine 08/17/2023 1:40 PM BUSINESS PLANNING ANALYST custodial current use of amiodarone HEMOGLOBIN A1C Routine 05/25/2023 10:14 AM CDT LIPID PANEL Routine 05/14/2023 1:26 PM CDT Lipid screening ALBUMIN CREATININE RATIO, URINE Routine 11/11/2021 1:55 PM BUSINESS PLANNING ANALYST Type 2 diabetes mellitus with stage 3b chronic kidney disease, with long-term current use of insulin (HCC) DEXA AXIAL SKELETON BONE DENSITY 1 OR MORE SITES Schedule Routine, Read Routine (OP Routine) 07/19/2020 10:24 AM BUSINESS PLANNING ANALYST Postmenopausal SCREENING MAMMOGRAM LEFT W OLMAN UNILATERAL ONLY Schedule Routine, Read Routine (OP Routine) 08/10/2018 3:28 PM BUSINESS PLANNING ANALYST Encounter for screening mammogram for malignant neoplasm of breast COLONOSCOPY REPORT 12/09/2017 HEPATITIS C ANTIBODY Routine 07/27/2017 10:01 AM BUSINESS PLANNING ANALYST Encounter for hepatitis C screening test for low risk patient from Last 3 Months or Most Recently Relevant to Health Maintenance Results * Cardiology Document Scan (08/25/2024 12:25 PM BUSINESS PLANNING ANALYST) Anatomical Region Laterality Modality Other us Campbell Shin MD [facility] PROCEDURES F inal Result * Cardiology Document Scan (08/24/2024 12:14 PM BUSINESS PLANNING ANALYST) Anatomical Region Laterality Modality Other us Zhanna Alfonso MD [facility] CARDIAC [facility] PRO CEDURES Final Result * Cardiology Document Scan (08/22/2024 8:56 AM BUSINESS PLANNING ANALYST) Anatomical Region Laterality Modality Other us Campbell Shin MD CV CARDIAC SERVICES PROCEDURES F inal Result * Cardiology Document Scan (08/13/2024 2:24 PM BUSINESS PLANNING ANALYST) Anatomical Region Laterality Modality Other Christiano Mai MD CV CARDIAC SERVICES PROCEDU RES Final Result * Cardiology Document Scan (08/12/2024 9:01 AM BUSINESS PLANNING ANALYST) Anatomical Region Laterality Modality Other [facility] Gautam Alfonso MD CV CARDIAC SERVICES PRO CEDURES Final Result * (ABNORMAL) Comprehensive metabolic panel (08/17/2023 1:40 PM BUSINESS PLANNING ANALYST) Glucose 143(H) 65 - 139 mg/dL [facility] Comment: Non-fasting reference interval BUN 34(H) 7 - [...] [facility] Blood 08/17/2023 1:40 PM BUSINESS PLANNING ANALYST 08/17/2023 1:41 PM BUSINESS PLANNING ANALYST Narrative [facility] - 08/19/2023 2:31 PM BUSINESS PLANNING ANALYST FASTING:NO FASTING: NO Kimberly Abernathy NP LAB BLOOD ORDERABLES Claire l Result [facility] [address] [place] [address] * (ABNORMAL) Hemoglobin A1c (05/25/2023 10:14 AM CDT) Hgb A1C 9.2(H) 4.0 - 5.6 % [facility] Estimated Average Glucose 217 mg/dL [facility] Comment: The ADA recommends reporting an estimated Average Glucose (eAG) with all Hemoglobin A1c results using the equation derived from a study of 507 normal and diabetic adults. Minority populations were underrepresented and children were not included. (Diabetes Care 31:0119-4707, 2008). The eAG is not equivalent to a fasting glucose. Blood 05/25/2023 10:1 4 AM CDT 05/25/2023 10:29 AM CDT Quinton Hooks MD LAB BLOOD ORDERABLES Final Result Performing Organization Address [facility]/ZIP Co de Phone Number [facility] [address] Department [place] [address] * (ABNORMAL) Lipid panel (05/14/2023 1:26 PM CDT) Pathologist [facility] Cholesterol 221(H) <200 mg/dL [facility] HDL 50 > OR = 50 mg/dL [facility] Triglycerides 205(H) <150 mg/dL [facility] Comment: If a non-fasting specimen was collected, consider repeat triglyceride testing on a fasting specimen if clinically indicated. Dharmesh et al. J. of Clin. Lipidol. 2015;9:129-169. LDL 137(H) mg/dL (calc) [facility] Comment: Reference range: <100 Desirable range <100 mg/dL for primary prevention; <70 mg/dL for patients with CHD or diabetic patients with > or = 2 CHD risk factors. LDL-C is now calculated using the Megan calculation, which is a validated novel method providing better accuracy than the Friedewald equation in the estimation of LDL-C. Jaron HUBBARD et al. GERALD. 2013;310(19): 8050-8328 (http://education.Crispify.[employer]/faq/SDE103) Chol/HDL ratio 4.4 <5.0 (calc) [facility] Non-HDL, (LDL+VLDL) 171(H) <130 mg/dL (calc) [facility] Comment: For patients with diabetes plus 1 major ASCVD risk factor, treating to a non-HDL-C goal of <100 mg/dL (LDL-C of <70 mg/dL) is considered a therapeutic option. Blood 05/14/2023 1:26 PM CDT 05/14/2023 1:27 PM CDT Brody Rouse MD LAB BLOOD ORDERABLES Final Result Performing Organization Address City/[facility] Co de Phone Number [facility] [address] [place] [address] * Albumin Creatinine Ratio, Urine (11/11/2021 1:55 PM BUSINESS PLANNING ANALYST) Albumin Ur <12.0 mg/L [facility] Comment: Interpretive Data No reference range established. Current interpretive data was last revised 2019. Creatinine Ur 44.0 mg/dL [facility] Comment: Interpretive Data No reference range established. Current interpretive data was last revised 2019. Albumin Creatinine Ratio, Ur <27 1 - 29 mg/g [facility] Urine 11/11/2021 1:55 PM BUSINESS PLANNING ANALYST 11/11/2021 4:47 PM BUSINESS PLANNING ANALYST Patricia GOYAL LAB URINE ORDERABLES Final Result Performing Organization Address City/[facility]/ZIP Co de Phone Number [facility] Department [place] [address] * Dexa Axial Skeleton Bone Density 1 or 2 Site (07/19/2020 10:24 AM BUSINESS PLANNING ANALYST) Anatomical Region Laterality Modality Body N/A Radiographic [facility] Narrative 07/19/2020 6:22 PM BUSINESS PLANNING ANALYST Patient Name: Aleksandra Berman Date of : 1945 Date of scan: 07/19/2020 Bone mineral density was performed on a HolouBeam Discovery Densitometer. Machine Cross-calibration and Precision studies have been performed with a least significant change of 0.024 g/cm at the spine, 0.020 g/cm at the total proximal femur, and 0.014g/cm at the forearm. HISTORY: This is a 74 y.o. postmenopausal female with [...] risk factor for fracture. Other factors include patient s age, previous osteoporotic fracture or prior fracture as an adult, loss of height of greater than 2 inches, corticosteroid use, risk of falling, risk of injury, and family history of osteoporosis. Not everyone with low bone mineral density has osteoporosis. Osteomalacia and other metabolic bone disorders should also be considered where indicated. Patients who have osteoporosis should be evaluated for specific diseases and conditions (secondary causes) that may cause or contribute to bone loss. Consider repeating this study in 1-2 years to assess the patient s response to treatment, if applicable. It is recommended that any follow up exam be performed on the same machine if possible for better accuracy. DEFINITIONS: Osteoporosis: BMD at or below -2.5 T-score Osteopenia (low bone mass): BMD between -1.0 and-2.5 T-score. The Bone Health Program adopts the following WHO definitions: Osteoporosis: BMD below -2.5 S.D. as compared to the BMD of young normal adults. Osteopenia or Low Bone Mass: BMD between -1.0 and -2.5 S.D. below the BMD of young normal adults. Normal Bone Density: BMD equal to or greater than -1.0 S.D. as compared to the BMD of young normal adults. References: 1) Quan, Annals of Internal Medicine 114(11): 919-923 (1990) 2) Jones, Lancet 341 : 72-75 [...] by the International Society of Clinical Densitometry. [id number] us Dayanna Odonnell MD IMG DXA PROCEDURES Fin al Result * Screening Mammograpm Left W Olman Unilateral Only (08/10/2018 3:28 PM BUSINESS PLANNING ANALYST) Anatomical Region Laterality Modality Breast Left Mammography Narrative 08/11/2018 10:42 AM BUSINESS PLANNING ANALYST Mammogram Technique: Left Breast Digital Breast Tomosynthesis, Unilateral C-view 2D Screening mammogram. Views obtained: left craniocaudal and left mediolateral oblique. Computer Aided Detection was performed. Mammogram Findings: The present examination has been compared to prior imaging studies performed at [facility] on 01/30/2015, 02/26/2016 and 05/12/2017. There are scattered areas of fibroglandular density. There is no suspicious abnormality in the left breast. Patient has personal history of reduction mammoplasty in the left breast. Patient status post contralateral mastectomy for personal history of breast cancer. Impression: Finding in the left breast is benign. Annual screening mammography is recommended. OVERALL FINAL ASSESSMENT: BI-RADS CATEGORY 2: Benign. Procedure Note Manjinder Gómez MD - 08/11/2018 Mammogram Technique: Left Breast Digital Breast Tomosynthesis, Unilateral C-view 2D Screening mammogram. Views obtained: left craniocaudal and left mediolateral oblique. Computer Aided Detection was performed. Mammogram Findings: The present examination has been compared to prior imaging studies performed at [facility] on 01/30/2015, 02/26/2016 and 05/12/2017. There are [...] REPORT (12/09/2017) Anatomical Region Laterality Modality Other Provider Scanning GI PROCEDURE ORDERABLES Final Result * Hepatitis C antibody (07/27/2017 10:01 AM BUSINESS PLANNING ANALYST) Hep C Ab Nonreactive Nonreactive [facility] Comment: Interpretive Data Positive and greyzone results should be confirmed by a molecular method. If positive or greyzone, a second separately collected sample should be submitted for Hepatitis C Virus RNA. Detection and Quantitation by Real-Time Reverse Hemodialysis Charge Nurse-PCR.Current Interpretive data was last revised on 2017. Blood specimen (specimen) 07/27/2017 10:01 AM BUSINESS PLANNING ANALYST 07/27/2017 12:52 PM BUSINESS PLANNING ANALYST Dayanna Odonnell MD LAB MICROBIOLOGY - GEN ERAL ORDERABLES Edited Result - Final [facility] [address] Department [place] [address] from Last 3 Months or Most Recently Relevant to Health Maintenance Insurance MEDICARE [facility] MEDICARE BLUE [place] [address] MEDICARE [facility]MERLY [facility] Advance Directives For more information, please contact: [phone] * LIMITED - No CPR (Latest Code [...] 11:15 PM 02/27/2022 12:34 AM Care Teams Manager Star Relationship Specialty Start Date End Date Sarbjit Lai MD [address] [place] [address] PCP - General Family Medicine 08/28/22 Samantha Upton NP Nurse Practitioner Internal Medicine 03/23/19 Mook Duran MD PhD [address] [place] [address] Referring Physician Cardiology 03/23/19 Mohan Mi MD [address] [place] [address] Referring Physician Nephrology 08/10/19 Maricarmen Helms MD [address] [place] [address] Referring Physician Endocrinology Diabetes & Metabolism 08/08/21 Nicolasa Jackson NP [address] [place] [address] Nurse Practitioner Nurse Practitioner 08/08/21
--- OUTSIDE RECORDS SUMMARY | 2024-10-25 12:47 | XMS_ITS | Referral Summary ---
Author Organization [facility] Address [address] [place] [address] Care Team Providers Care Rotary Drum Dyer Name Role Phone Samantha Upton NP Unavailable [phone] Mook Duran MD PhD Unavailable [phone] Mohan Mi MD Unavailable Maricarmen Helms MD Unavailable [phone] Nicolasa Jackson NP Unavailable [phone] Sarbjit Lai MD Primary Care Provider Encounters Date Type Department Care Team Description 09/20/2024 9:00 AM APPLIED EXERCISE PHYSIOLOGIST Office Visit [facility] Medical [facility] Cardiology [address] [place] [address] [place] [phone] Kimberly Abernathy NP Persistent atrial fibrillation (HCC) (Primary Dx); Chronic diastolic congestive heart failure (CMS/HCC) (HCC); Coronary artery disease involving [place] cro[place] coronary artery of [place] croix heart without angina pectoris; Hypotension due to drugs; Hospital discharge follow-up 08/30/2024 Orders Only [facility] Cardiology [address] [place] [address] [place] [phone] Zhanna Alfonso MD 08/24/2024 Telephone [facility] Cardiology [address] [place] [address] [place] [phone] Zhanna Alfonso MD cardioversion 08/23/2024 Orders Only [facility] Medical [facility] Cardiology [address] [place] [phone] Campbell Shin MD 08/16/2024 Orders Only [facility] Cardiology [address] [place] [address] [place] [phone] Christiano Mai MD 08/01/2024 Telephone [facility] Cardiology [address] [place] [address] [address] [place] [phone] Kimberly Abernathy NP Med Refill 07/27/2024 Orders Only [facility] Cardiology [address] [place] [address] [place] [phone] Zhanna Alfonso MD from Last 3 [...] Other (See comments) Low 02/28/2020 Heart burn Rzwbhjc-Lnc-Qao Reductase Inhibitors Muscle pain Medium 06/07/2014 Medications [...] Noted Date Diagnosed Date Paroxysmal atrial fibrillation ([facility]) 023 S/P coronary artery stent placement 07/09/2023 Chronic anticoagulation 07/09/2023 Multiple vessel coronary artery disease 05/27/20 Chest pain 05/24/2023 Coronary artery disease invo lving [place]. croix coronary artery of [place] croix heart without angina pectoris 04/22/2023 Mixed diabetic hyperlipidemi a associated with type 2 diabetes mellitus 12/31/2022 Shortness of breath 12/31/2022 Pulmonary HTN 12/31/2022 Morbid (severe) obesity due to excess calories 0 03/03/2022 Body mass index 40.0-44.9, adult ([facility]) 03/03 Cognitive impairment 02/26/2022 Hypoglycemia 02/21/2022 Gout 02/21/2022 Type 2 diabetes mellitus wit h diabetic peripheral angiopathy without gangrene 02/21/2022 Venous stasis 01/29/2022 Has immunity to COVID-19 virus 08/06/2021 Overview (08/06/2021): Moderna vaccine 11/22/2020, 10/25/2020, 05/10/2021 Assessment & Plan (08/06/2021 4:37 PM APPLIED EXERCISE PHYSIOLOGIST): Moderna vaccine 11/22/2020, 10/25/2020, 05/10/2021 Otitis externa [...] function. Assessment & Plan (08/08/2021 2:26 PM APPLIED EXERCISE PHYSIOLOGIST): Need to minimize risk of hypoglycemia, but [...] (03/12/2020): Added automatically from request for surgery [id number] History of esophagitis 03/12/2020 Overview (03/12/2020): Added automatically from request for surgery [id number] Morbid obesity with BMI of 40.0-44.9, adult [...] in erythema with abx. -Seen by wound roll cleaner yesterday. -Advised patient that she will need [...] for a 5-7d course for now. -Wound roll cleaner c/s. -Advised patient that she will need [...] 10/25/2018 Assessment & Plan (10/25/2018 9:02 PM APPLIED EXERCISE PHYSIOLOGIST): This is a 72-year-old woman with a [...] consult. Assessment & Plan (10/27/2018 10:49 AM APPLIED EXERCISE PHYSIOLOGIST): -Declined inpatient titration of depakote, experienced altered mental status and increased lethargy when initiating as outpatient at dose of 500mg BID as outpatient. Pt lives alone and would be poor candidate for repeat trial with sedating medications. -Mental status improved after holding depakote -Brain MRI performed per psychiatry recs, read pending -Psychiatry following, planning or voluntary inpatient admission to [facility] only today -TSH 1.8, UDS pending Type 2 diabetes mellitus wit h stage 3b chronic kidney disease, with long-term current use of insulin 06/30/2018 Overview (06/30/2018): Type 2 diabetes mellitus with hypoglycemia without coma - (Added by TW Ty) Assessment & Plan (05/08/2022 2:29 PM CDT): [...] hyperglycemia. Assessment & Plan (10/31/2021 6:00 PM APPLIED EXERCISE PHYSIOLOGIST): No recent Hemoglobin A1c. There are no [...] support. Assessment & Plan (08/08/2021 2:26 PM APPLIED EXERCISE PHYSIOLOGIST): Extremely high glucoses, so she needs much [...] MDSSI Assessment & Plan (10/29/2018 9:30 AM APPLIED EXERCISE PHYSIOLOGIST): Patient's glucose was elevated of 478 on admission, likely secondary to patient admitting having difficulty complying with medication due to confusion and somnolence in the setting of starting Depakote - Continue Lantus 20 units q.d., lispro 5 units t.i.d. before meals in mid dose sliding scale. Assessment & Plan (10/28/2018 8:27 AM APPLIED EXERCISE PHYSIOLOGIST): Patient's glucose was elevated of 478 on admission, likely secondary to patient admitting having difficulty complying with medication due to confusion and somnolence in the setting of starting Depakote Plan: - Continue Lantus 20 units q.d., lispro 5 units t.i.d. before meals in mid dose sliding scale. Assessment & Plan (10/28/2018 8:20 AM APPLIED EXERCISE PHYSIOLOGIST): Patient's glucose was elevated of 478 on admission, likely secondary to patient admitting having difficulty complying with medication due to confusion and somnolence in the setting of starting Depakote Plan: - Continue Lantus 20 units q.d., lispro 5 units t.i.d. before meals in mid dose sliding scale. Assessment & Plan (10/25/2018 1:35 PM APPLIED EXERCISE PHYSIOLOGIST): -Home regimen includes Tresiba 50 daily, Vitoza 1.2 daily, and humalog with meals -Hyperglycemic to 478 on admission, likely due to admitted medication noncompliance while taking Depakote -Resolved quickly after resuming insulin on admission. -Continue lantus 20 units qAM, lispro 5 units TID, mid-dose SSI Assessment & Plan (10/18/2018 7:35 AM APPLIED EXERCISE PHYSIOLOGIST): Recent event when she took her mealtime [...] 01/25/2018 Assessment & Plan (08/08/2021 2:26 PM APPLIED EXERCISE PHYSIOLOGIST): Continue chronic supplement recheck labs Assessment & Plan (10/18/2018 7:37 AM APPLIED EXERCISE PHYSIOLOGIST): Continue supplement Assessment & Plan (04/07/2018 3:29 PM CDT): Continue increased supplement Assessment & Plan (01/25/2018 12:34 PM CDT): Continue supplementation. Repeat level today. Arthritis 01/18/2018 GERD (gastroesophageal reflux disease) 8 Assessment & Plan (10/25/2018 1:37 PM APPLIED EXERCISE PHYSIOLOGIST): -Continue protonix. ANDREA on CPAP 09/06/2015 Overview [...] compliance Assessment & Plan (10/29/2018 9:30 AM APPLIED EXERCISE PHYSIOLOGIST): Stable/BIBI. Patient had continued evidence of severe obstructive sleep apnea on September 2017 sleep study. - autoCPAP therapy w/ pressure 12-16 cm H2O and a small AirFit F20 full face mask. Assessment & Plan (10/28/2018 8:26 AM APPLIED EXERCISE PHYSIOLOGIST): Patient had continued evidence of severe obstructive sleep apnea on September 2017 sleep study. Plan: - Consult respiratory care for CPAP - autoCPAP therapy w/ pressure 12-16 cm H2O and a small AirFit F20 full face mask. Assessment & Plan (10/28/2018 8:20 AM APPLIED EXERCISE PHYSIOLOGIST): Patient had continued evidence of severe obstructive [...] up Assessment & Plan (10/29/2018 9:46 AM APPLIED EXERCISE PHYSIOLOGIST): For now, we will be working w/ provisional dx of bipolar disorder unspecified. Somewhat unclear if pt had a manic vs hypomanic episode preceding her hospitalization, but our concern is nonetheless significant. Pt has a hx of well documented sustained depressive episodes w/ collateral revealing she has been spending excessive amounts of money on items on sale after [place] and an excessive amount of time redecorating her house (wanting to make it a [employer] next year) and working on numerous [...] outpatient Assessment & Plan (10/29/2018 9:30 AM APPLIED EXERCISE PHYSIOLOGIST): For now, we will be working w/ [...] her house (wanting to make it a [employer] [employer] next year) and working on numerous [...] outpatient Assessment & Plan (10/28/2018 8:23 AM APPLIED EXERCISE PHYSIOLOGIST): Patient has persistent difficulty discarding or parting [...] aren Assessment & Plan (10/28/2018 8:16 AM APPLIED EXERCISE PHYSIOLOGIST): Patient has persistent difficulty discarding or parting [...] pramipexole Assessment & Plan (10/29/2018 9:30 AM APPLIED EXERCISE PHYSIOLOGIST): Stable/BIBI. -Continue home pramipexole 0.5mg nightly (patient reports she usually takes two at home) Assessment & Plan (10/28/2018 8:27 AM APPLIED EXERCISE PHYSIOLOGIST): -Continue home pramipexole 0.5mg nightly (patient reports she usually takes two at home) Assessment & Plan (10/28/2018 8:17 AM APPLIED EXERCISE PHYSIOLOGIST): -Continue home pramipexole 0.5mg nightly (patient reports she usually takes two at home) Assessment & Plan (10/25/2018 1:36 PM APPLIED EXERCISE PHYSIOLOGIST): -Continue home pramipexole 0.5mg nightly Carcinoma of [...] 10/28/2018 Assessment & Plan (10/25/2018 3:09 AM APPLIED EXERCISE PHYSIOLOGIST): Psychological condition is improving with treatment. Her [...] (05/05/2018): Added automatically from request for surgery [id number] Right posterior capsular opacification 04/05/2018 10/28/2018 Corneal [...] 10/17/2020 Assessment & Plan (10/27/2018 10:50 AM APPLIED EXERCISE PHYSIOLOGIST): -Creatinine 1.50 on admission, increased to 1.70. Will empirically give 1L NS and hold lasix Assessment & Plan (10/18/2018 7:34 AM APPLIED EXERCISE PHYSIOLOGIST): Increased risk of hypoglycemia Assessment & Plan (01/25/2018 12:34 PM CDT): Renal condition is unchanged. Continue current treatment regimen. Renal condition will be reassessed in 6 months. Fatigue 01/18/2018 10/28/2018 Zelda esophagitis (CMS/HCC) 12/11/2017 10/28/2018 Depression, recurrent (CMS/HCC) 08/24/2017 10/28/2018 Assessment & Plan (01/25/2018 12:30 PM CDT): Psychological condition is improving with treatment. Continue current treatment regimen. Psychological condition will be reassessed at the next regular appointment. Valgus deformity of great toe 08/07/2017 10/28/2018 Chronic obstructive pulmonary disease 10/30/2016 04/01/2019 Assessment & Plan (10/25/2018 1:35 PM APPLIED EXERCISE PHYSIOLOGIST): -Continue home spiriva, symbicort, albuterol Knee pain 09/11/2016 10/28/2018 Posterior vitreous detachment 06/25/2016 10/28/2018 Combined forms of age-related cataract 06/25/2016 07/05/2018 Diabetic peripheral neuropathy (CMS/HCC) 11/29/2015 10/28/2018 Overview (12/12/2016): Type 2 diabetes, [...] disease Assessment & Plan (10/18/2018 7:36 AM APPLIED EXERCISE PHYSIOLOGIST): Glucoses tend to be too high, but [...] time. Assessment & Plan (10/27/2018 10:50 AM APPLIED EXERCISE PHYSIOLOGIST): -Coreg 6.25 BID -> 12.5mg BID Assessment & Plan (04/07/2018 3:27 PM CDT): Increased risk of hypoglycemia. Need to maintain a good margin of glycemic safety Blood pressure within target, managed by renal intermediate card tender current use of insulin ([facility]) 09/06/2015 10/28/2018 Overview (12/12/2016): Insulin [...] density screening Actinic keratosis 08/04/2012 10/28/2018 Immunizations Immunization Administration Dates Next Due Influenza, [...] often do you attend chur ch or baptism services? Never 05/25/2023 Do you belong to any clubs o r organizations such as holiness groups, unions, fraternal or athletic groups, or [...] place to sleep or slept in a snf (including now)? No 05/25/2023 Personal Safety Answer Date Recorded Have you ever been in or are you currently in a harmful physical or emotional relationship or is someone making you feel afraid or unsafe? Denies 06/17/2023 Comments No Sex and Gender Information Value Date Recorded Sex Assigned at Not on file Legal Sex Female 7:43 PM APPLIED EXERCISE PHYSIOLOGIST Gender Identity Female 07/19/2020 11:39 AM APPLIED EXERCISE PHYSIOLOGIST Sexual Orientation Not on file Last Filed Vital Signs Vital Sign Reading Time Taken Comments Blood Pressure 82/54 09/20/2024 9:10 AM APPLIED EXERCISE PHYSIOLOGIST Pulse 99 09/20/2024 9:10 AM APPLIED EXERCISE PHYSIOLOGIST Temperature 36.6 C (97.9 F) 07/21/2023 12:00 AM APPLIED EXERCISE PHYSIOLOGIST Respiratory Rate 18 07/21/2023 12:00 AM APPLIED EXERCISE PHYSIOLOGIST Oxygen Saturation 92% 09/20/2024 9:10 AM APPLIED EXERCISE PHYSIOLOGIST Inhaled Oxygen Concentration - - Weight 105.7 kg (233 lb) 09/20/2024 9:10 AM APPLIED EXERCISE PHYSIOLOGIST Height 165.1 cm (5' 5 ) 09/20/2024 9:10 AM APPLIED EXERCISE PHYSIOLOGIST Body Mass Index 38.77 09/20/2024 9:10 AM APPLIED EXERCISE PHYSIOLOGIST Plan of Treatment Not on file Goals Goal Patient Goal Type Associated Problems Recent Progress Patient-Stated? Author SONIA General Goal - Patient schedules and keeps appointments with all recommended providers ACO Care Management On track(03/25 11:26 AM CDT) Bhavya Pérez, ELISEO Note: Problem: Potential for medical complications and [...] is agreeable. Medical Devices Implanted Type Area Yarn Sizer Device Identifier Shelf Expiration Date Model / Serial / Lot Hartman Wright [id number] 22.0 Tecnis Optiedge 6mm 13mm 3 Piece Anterior Aspheric Monofocal Uv - [id number] - [id number] Implanted:Qty: 1 on 06/16/2018 by Grazyna Watt MD at [facility] Lens Left: Eye Hartman Wright [id number] 01/21/2021 [id number] 22.0 / [id number] / 0 [employer] Sushil Synergy Xd Monorail 2.25mm 38mm 144cm Delivery System 1 Access [id number] - [id number] Implanted:Qty: 1 on 06/17/2023 by Brody Rouse MD at [facility] [employer] 11/02/2024 [id number] / / [id number] [employer] Sushil Synergy Xd Monorail 2.5mm 12mm 144cm Delivery System 1 Access [id number] - [id number] Implanted:Qty: 1 on 06/17/2023 by Brody Rouse MD at [facility] [employer] 02/24/2025 [id number] / / [id number] [employer] Sushil Synergy Xd Monorail 3mm 16mm 144cm Delivery System 1 Access Port [id number] - [id number] Implanted:Qty: 1 on 06/17/2023 by Brody Rouse MD at [facility] [employer] 07/08/2024 [id number] / / [id number] [employer] Angio-Seal Vip 6fr Closere Device [id number] - [id number] Implanted:Qty: 1 on 06/17/2023 by Brody Rouse MD at [facility] [employer] 02/12/2024 [id number] / / [id number] Procedures Procedure Name Priority Date/Time Associated Diagnosis Comments CARDIOLOGY DOCUMENT SCAN Routine 08/25/2024 12:25 PM APPLIED EXERCISE PHYSIOLOGIST CARDIOLOGY DOCUMENT SCAN Routine 08/24/2024 12:14 PM APPLIED EXERCISE PHYSIOLOGIST CARDIOLOGY DOCUMENT SCAN Routine 08/22/2024 8:56 AM APPLIED EXERCISE PHYSIOLOGIST CARDIOLOGY DOCUMENT SCAN Routine 08/13/2024 2:24 PM APPLIED EXERCISE PHYSIOLOGIST CARDIOLOGY DOCUMENT SCAN Routine 08/12/2024 9:01 AM APPLIED EXERCISE PHYSIOLOGIST COMPREHENSIVE METABOLIC PANEL Routine 08/17/2023 1:40 PM APPLIED EXERCISE PHYSIOLOGIST intermediate card tender current use of amiodarone HEMOGLOBIN A1C Routine 05/25/2023 10:14 AM CDT LIPID PANEL Routine 05/14/2023 1:26 PM CDT Lipid screening ALBUMIN CREATININE RATIO, URINE Routine 11/11/2021 1:55 PM APPLIED EXERCISE PHYSIOLOGIST Type 2 diabetes mellitus with stage 3b chronic kidney disease, with long-term current use of insulin (HCC) DEXA AXIAL SKELETON BONE DENSITY 1 OR MORE SITES Schedule Routine, Read Routine (OP Routine) 07/19/2020 10:24 AM APPLIED EXERCISE PHYSIOLOGIST Postmenopausal SCREENING MAMMOGRAM LEFT W OLMAN UNILATERAL ONLY Schedule Routine, Read Routine (OP Routine) 08/10/2018 3:28 PM APPLIED EXERCISE PHYSIOLOGIST Encounter for screening mammogram for malignant neoplasm of breast COLONOSCOPY REPORT 12/09/2017 HEPATITIS C ANTIBODY Routine 07/27/2017 10:01 AM APPLIED EXERCISE PHYSIOLOGIST Encounter for hepatitis C screening test for low risk patient from Last 3 Months or Most Recently Relevant to Health Maintenance Results * Cardiology Document Scan (08/25/2024 12:25 PM APPLIED EXERCISE PHYSIOLOGIST) Anatomical Region Laterality Modality Other us Campbell Shin MD CV CARDIAC SERVICES PROCEDURES F inal Result * Cardiology Document Scan (08/24/2024 12:14 PM APPLIED EXERCISE PHYSIOLOGIST) Anatomical Region Laterality Modality Other us Zhanna Alfonso MD CV CARDIAC SERVICES PRO CEDURES Final Result * Cardiology Document Scan (08/22/2024 8:56 AM APPLIED EXERCISE PHYSIOLOGIST) Anatomical Region Laterality Modality Other Campbell Shin MD CV CARDIAC SERVICES PROCEDURES F inal Result * Cardiology Document Scan (08/13/2024 2:24 PM APPLIED EXERCISE PHYSIOLOGIST) Anatomical Region Laterality Modality Other Christiano Mai MD CV CARDIAC SERVICES PROCEDU RES Final Result * Cardiology Document Scan (08/12/2024 9:01 AM APPLIED EXERCISE PHYSIOLOGIST) Anatomical Region Laterality Modality Other Zhanna Alfonso MD CV CARDIAC SERVICES PRO CEDURES Final Result * (ABNORMAL) Comprehensive metabolic panel (08/17/2023 1:40 PM APPLIED EXERCISE PHYSIOLOGIST) Glucose 143(H) 65 - 139 mg/dL [facility] Comment: Non-fasting reference interval BUN 34(H) 7 - 25 mg/dL [facility] Creatinine 1.74(H) 0.60 - 1.00 mg/dL [facility] eGFR 30(L) > OR = 60 mL/min/1.7 3m2 [facility] BUN/creat ratio 20 6 - 22 (calc) [facility] Sodium 139 135 - 146 mmol/L [facility] Potassium, pl 4.0 3.5 - 5.3 mmol/L [facility] Chloride 103 98 - 110 mmol/L [facility] CO2 30 20 - 32 mmol/L [facility] Calcium 9.2 8.6 - 10.4 mg/dL [facility] Protein, sr 7.1 6.1 - 8.1 g/dL [facility] Albumin 3.8 3.6 - 5.1 g/dL [facility] GLOBULIN 3.3 1.9 - 3.7 g/dL (calc) [facility] Alb/glob ratio 1.2 1.0 - 2.5 (calc) [facility] Bilirubin, total 0.2 0.2 - 1.2 mg/dL [facility] Alk phos 106 37 - 153 U/L [facility] AST 10 10 - 35 U/L [facility] ALT (SGPT) 10 6 - 29 U/L [facility] Blood 08/17/2023 1:40 PM APPLIED EXERCISE PHYSIOLOGIST 08/17/2023 1:41 PM APPLIED EXERCISE PHYSIOLOGIST Narrative [facility] - 08/19/2023 2:31 PM APPLIED EXERCISE PHYSIOLOGIST FASTING:NO FASTING: NO Kimberly Abernathy NP LAB BLOOD ORDERABLES Claire l Result Performing Organization Address City/[facility]/ZIP Co de Phone Number [facility] [address] [place] [address] * (ABNORMAL) Hemoglobin A1c (05/25/2023 10:14 AM CDT) Hgb A1C 9.2(H) 4.0 - 5.6 % [facility] Estimated Average Glucose 217 mg/dL [facility] Comment: The ADA recommends reporting an estimated Average Glucose (eAG) with all Hemoglobin A1c results using the equation derived from a study of 507 normal and diabetic adults. Minority populations were underrepresented and children were not included. (Diabetes Care 31:5054-8927, 2008). The eAG is not equivalent to a fasting glucose. Blood 05/25/2023 10:1 4 AM CDT 05/25/2023 10:29 AM CDT Quinton Hooks MD LAB BLOOD ORDERABLES Final Result Performing Organization Address City/[facility]/ZIP Co de Phone Number [facility] [address] Department [place] [address] * (ABNORMAL) Lipid panel (05/14/2023 1:26 PM [...] LDL-C. Jaron HUBBARD et al. GERALD. 2013;310(19): 3322-0534 (http://education.[employer]/faq/TJR627) Chol/HDL ratio 4.4 <5.0 (calc) [facility] Non-HDL, (LDL+VLDL) 171(H) <130 mg/dL (calc) [facility] Comment: For patients with diabetes plus 1 major ASCVD risk factor, treating to a non-HDL-C goal of <100 mg/dL (LDL-C of <70 mg/dL) is considered a therapeutic option. Blood 05/14/2023 1:26 PM CDT 05/14/2023 1:27 PM CDT us Brody Rouse MD LAB BLOOD ORDERABLES Final Result [facility] [address] [place] [address] * Albumin Creatinine Ratio, Urine (11/11/2021 1:55 PM APPLIED EXERCISE PHYSIOLOGIST) Albumin Ur <12.0 mg/L [facility] Comment: Interpretive Data No reference range established. Current interpretive data was last revised 2019. Creatinine Ur 44.0 mg/dL [facility] Comment: Interpretive Data No reference range established. Current interpretive data was last revised 2019. Albumin Creatinine Ratio, Ur <27 1 - 29 mg/g [facility] Urine 11/11/2021 1:55 PM APPLIED EXERCISE PHYSIOLOGIST 11/11/2021 4:47 PM APPLIED EXERCISE PHYSIOLOGIST us Patricia GOYAL LAB URINE ORDERABLES Final Result [facility] Department [place] [address] * Dexa Axial Skeleton Bone Density 1 or 2 Site (07/19/2020 10:24 AM APPLIED EXERCISE PHYSIOLOGIST) Anatomical Region Laterality Modality Body N/A Radiographic [facility] Narrative 07/19/2020 6:22 PM APPLIED EXERCISE PHYSIOLOGIST Patient Name: Aleksandra Berman Date of : 1945 Date of scan: 07/19/2020 Bone mineral density was performed on a [employer] CRM Discovery Densitometer. Machine Cross-calibration and Precision studies [...] mineral density scan were prepared by Nneka Villanueva)(Karen)(), CBDT who is accredited by the International Society of Clinical Densitometry. The overall patient assessment and scan interpretation were performed by Boston Cruz MD who is certified by the International Society of Clinical Densitometry. [id number] us Dayanna Odonnell MD IMG DXA PROCEDURES Fin al Result * Screening Mammograpm Left W Olman Unilateral Only (08/10/2018 3:28 PM APPLIED EXERCISE PHYSIOLOGIST) Anatomical Region Laterality Modality Breast Left Mammography Narrative 08/11/2018 10:42 AM APPLIED EXERCISE PHYSIOLOGIST Mammogram Technique: Left Breast Digital Breast Tomosynthesis, Unilateral C-view 2D Screening mammogram. Views obtained: left craniocaudal and left mediolateral oblique. Computer Aided Detection was performed. Mammogram Findings: The present examination has been compared to prior imaging studies performed at [facility] on 01/30/2015, 02/26/2016 and 05/12/2017. There are [...] compared to prior imaging studies performed at [facility] on 01/30/2015, 02/26/2016 and 05/12/2017. There are [...] * Hepatitis C antibody (07/27/2017 10:01 AM APPLIED EXERCISE PHYSIOLOGIST) Hep C Ab Nonreactive Nonreactive [facility] Comment: Interpretive Data Positive and greyzone results should be confirmed by a molecular method. If positive or greyzone, a second separately collected sample should be submitted for Hepatitis C Virus RNA. Detection and Quantitation by Real-Time Reverse Auger Press Operator-PCR.Current Interpretive data was last revised on 2017. Blood specimen (specimen) 07/27/2017 10:01 AM APPLIED EXERCISE PHYSIOLOGIST 07/27/2017 12:52 PM APPLIED EXERCISE PHYSIOLOGIST us Dayanna Odonnell MD LAB MICROBIOLOGY - GEN ERAL ORDERABLES Edited Result - Final [facility] Department [place] [address] from Last 3 Months or Most Recently Relevant to [place] [address] MEDICARE [facility] MEDICARE BLUE CROSS MEDICARE SUPPLEMENT MEDICARE [facility] [place] [address] Advance Directives For more information, please contact: [phone] * LIMITED - No CPR (Latest Code [...] 11:15 PM 02/27/2022 12:34 AM Care Teams Rotary Drum Dyer Relationship Specialty Start Date End Date Sarbjit Lai MD [address] [place] [address] PCP - General Family Medicine 08/28/22 Samantha Uptno NP Nurse Practitioner Internal Medicine 03/23/19 Mook Duran MD PhD [address] [place], [place] [id number] Referring Physician Cardiology 03/23/19 Mohan Mi MD [address] [place] [address] Referring Physician Nephrology 08/10/19 Maricarmen Helms MD [address] [place] [address] Referring Physician Endocrinology Diabetes & Metabolism 08/08/21 Nicolasa Jackson NP [address] [place], [place] [id number] Nurse Practitioner Nurse Practitioner 08/08/21
--- OUTSIDE RECORDS SUMMARY | 2024-10-25 12:47 | XMS_ITS | Clinical Summary ---
Author Organization [facility] Address [address] [place] [address] Phone Care Team Providers Care Applications Programmer Name Role Phone Sarbjit Lai MD Primary Care Provider [phone] Allergies Active Allergy Reactions Criticality Noted Date Comments Atenolol muscle pain,Shortness of breath High 02/24/2022 Other reaction(s): Mental status changes, Syncope Reaction: Syncope/Low BP, Myalgia, Short of breath, Mental Status Changes, Exenatide Diarrhea Low 07/27/2017 Hydrocodone-Acetaminophen Itching Low [...] 02/21/2022 Hypertensive heart disease with heart failure superintendent terminal current use of insulin 02/21/2022 Personal history [...] (06/12/2022): Added automatically from request for surgery [id number] 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 -Seen by wound director public policy yesterday. -Advised patient that she will need [...] AM CDT Pulse - - Temperature 36.1 C (97 F) 05/01/2022 10:19 AM CDT Respiratory Rate 18 05/01/2022 10:19 AM CDT Oxygen Saturation - - Inhaled Oxygen Concentration - - Weight 115 kg (253 lb 6.4 oz) 05/01/2022 10:19 A M CDT Height 167.6 cm (5' 6 ) 05/01/2022 10:19 AM CDT Body Mass Index 40.9 05/01/2022 10:19 AM CDT Plan of Treatment Health Maintenance Due Date Last Done Comments COVID-19 Vaccine (2023-2 5 season) 2024 05/10/2021, 11/22/2020, 10/25/2020 Influenza Vaccine (#1) 2024 , 07/06/2018, 05/31/2017, Additional history exists Pneumococcal PPSV23/PCV13 65 + Years / Low and Medium Risk Completed 07/03/2015, 09/07/2012, 07/08/2010 Care Teams Applications Programmer Relationship Specialty Start Date End Date Sarbjit Lai MD [address] [place] [id number] PCP - General Family Medicine 03/12/22
--- OUTSIDE RECORDS SUMMARY | 2024-10-25 12:47 | XMS_ITS | Encounter Summary ---
Author Organization [facility] Address [address] [place] [address] Phone Care Team Providers Care Slip Cover Sewer Name Role Phone Dayanna Odonnell MD Primary Care Provider Samantha Upton NP Unavailable [phone] Mook Duran MD PhD Unavailable [phone] Venice Dobbs RN Unavailable [phone] Mohan Mi MD Unavailable Maricarmen Helms MD Unavailable [phone] Nicolasa Jackson RN UTILIZATION MANAGEMENT [employer] Unavailable [phone] Bhavya Browne RN Unavailable Unknown, Notinfile Primary Care Provider Unavail able [...] on file Legal Sex Female 7:43 PM CHUTE BOSS Gender Identity Female 07/19/2020 11:39 AM CHUTE BOSS Sexual Orientation Not on file documented as [...] COVID: Suspected 08/14/2020 08/14/2020 08/28/2020 3:07 AM CHUTE BOSS documented as of this encounter Care Teams Slip Cover Sewer Relationship Specialty Start Date End Date Dayanna Odonnell MD PCP - General 12/05/16 06/22/22 Unknown, Notinfile PCP - General 06/23/22 08/27/22 Sarbjit Lai MD PCP - General Family Medicine 08/28/22 Samantha Upton NP Nurse Practitioner Internal Medicine 03/23/19 Mook Duran MD PhD [address] [place] [address] Referring Physician Cardiology 03/23/19 Venice Dobbs RN [address] [place] [address] [address] [place] [address] Hall Supervisor 04/28/19 01/08/21 Mohan Mi MD [address] [place] [address] [address] [place] [address] Referring Physician Nephrology 08/10/19 Maricarmen Helms MD [address] [facility] [address] [place] [address] Referring Physician Endocrinology Diabetes & Metabolism 08/08/21 Nicolasa Jackson NP [address] [place] [address] [address] [place] [address] Nurse Practitioner Nurse Practitioner 08/08/21 Bhavya Browne, RN [address] [place] [address] Hall Supervisor 02/27/22 03/24/22 documented as of this encounter
--- OUTSIDE RECORDS SUMMARY | 2024-10-25 12:47 | XMS_ITS | Patient Health Summary ---
Author Organization [facility] Address [address] [place] [address] Care Team Providers Care E Commerce Project Manager Name Role Phone Margaux Eduardo MD Primary Care Provider [phone] Note [address] [facility],non-owned Affiliates and Associated Physician Practices is amultiple site organization consisting of ambulatory clinics and hospital sitesin [place], [place], [place] and [place]. This disclosure is being madepursuant to the Care Everywhere program and may not contain all information available regarding this patient. Last updated 18.[facility] Social History Tobacco Use Types Packs/Day Years Used Date Smoking Tobacco: Never Assessed Sex and Gender Information Value Date Recorded Sex Assigned at Not on file Gender Identity Not on file Sexual Orientation Not on file Care Teams E Commerce Project Manager Relationship Specialty Start Date End Date Margaux Eduardo MD [address] [phone] PCP - General 08/12/22
--- OUTSIDE RECORDS SUMMARY | 2024-10-25 12:47 | XMS_ITS ---
Author Organization [facility] Address [address] [place] [address] Care Team Providers Care Film Sound Engineer Name Role Phone Samantha Upton NP Unavailable [phone] Mook Duran MD PhD Unavailable [phone] Mohan Mi MD Unavailable Maricarmen Helms MD Unavailable Nicolasa Jackson REPRESENTATIVE GOVERNMENT RELATIONS Unavailable [phone] Sarbjit Lai MD Primary Care Provider [phone] Active Problems Problem Noted Date Diagnosed Date Paroxysmal atrial fibrillation ([facility]) 023 S/P coronary artery stent placement 07/09/2023 [...] 0 03/03/2022 Body mass index 40.0-44.9, adult ([facility]) 03/03 Cognitive impairment 02/26/2022 Hypoglycemia 02/21/2022 Gout 02/21/2022 Type 2 diabetes mellitus wit h diabetic peripheral angiopathy without gangrene 02/21/2022 Venous stasis 01/29/2022 Has immunity to COVID-19 virus 08/06/2021 Overview (08/06/2021): Moderna vaccine 11/22/2020, 10/25/2020, 05/10/2021 Assessment & Plan (08/06/2021 4:37 PM RESOLUTION ANALYST): Moderna vaccine 11/22/2020, 10/25/2020, 05/10/2021 Otitis [...] function. Assessment & Plan (08/08/2021 2:26 PM RESOLUTION ANALYST): Need to minimize risk of hypoglycemia, [...] (03/12/2020): Added automatically from request for surgery [id number] History of esophagitis 03/12/2020 Overview (03/12/2020): Added automatically from request for surgery [id number] Morbid obesity with BMI of 40.0-44.9, adult [...] in erythema with abx. -Seen by wound ic engineer yesterday. -Advised patient that she will need [...] for a 5-7d course for now. -Wound ic engineer c/s. -Advised patient that she will need [...] 10/25/2018 Assessment & Plan (10/25/2018 9:02 PM RESOLUTION ANALYST): This is a 72-year-old woman with [...] will plan for VOLUNTARY admission to Psychiatry, [facility] only, when bed is available Will formally staff these recommendations with the attending tomorrow. Thank you for the consult. Assessment & Plan (10/27/2018 10:49 AM RESOLUTION ANALYST): -Declined inpatient titration of depakote, experienced altered mental status and increased lethargy when initiating as outpatient at dose of 500mg BID as outpatient. Pt lives alone and would be poor candidate for repeat trial with sedating medications. -Mental status improved after holding depakote -Brain MRI performed per psychiatry recs, read pending -Psychiatry following, planning or voluntary inpatient admission to [facility] only today -TSH 1.8, UDS pending [...] hyperglycemia. Assessment & Plan (10/31/2021 6:00 PM RESOLUTION ANALYST): No recent Hemoglobin A1c. There are [...] support. Assessment & Plan (08/08/2021 2:26 PM RESOLUTION ANALYST): Extremely high glucoses, so she needs [...] MDSSI Assessment & Plan (10/29/2018 9:30 AM RESOLUTION ANALYST): Patient's glucose was elevated of 478 on admission, likely secondary to patient admitting having difficulty complying with medication due to confusion and somnolence in the setting of starting Depakote - Continue Lantus 20 units q.d., lispro 5 units t.i.d. before meals in mid dose sliding scale. Assessment & Plan (10/28/2018 8:27 AM RESOLUTION ANALYST): Patient's glucose was elevated of 478 on admission, likely secondary to patient admitting having difficulty complying with medication due to confusion and somnolence in the setting of starting Depakote Plan: - Continue Lantus 20 units q.d., lispro 5 units t.i.d. before meals in mid dose sliding scale. Assessment & Plan (10/28/2018 8:20 AM RESOLUTION ANALYST): Patient's glucose was elevated of 478 on admission, likely secondary to patient admitting having difficulty complying with medication due to confusion and somnolence in the setting of starting Depakote Plan: - Continue Lantus 20 units q.d., lispro 5 units t.i.d. before meals in mid dose sliding scale. Assessment & Plan (10/25/2018 1:35 PM RESOLUTION ANALYST): -Home regimen includes Tresiba 50 daily, Vitoza 1.2 daily, and humalog with meals -Hyperglycemic to 478 on admission, likely due to admitted medication noncompliance while taking Depakote -Resolved quickly after resuming insulin on admission. -Continue lantus 20 units qAM, lispro 5 units TID, mid-dose SSI Assessment & Plan (10/18/2018 7:35 AM RESOLUTION ANALYST): Recent event when she took her [...] 01/25/2018 Assessment & Plan (08/08/2021 2:26 PM RESOLUTION ANALYST): Continue chronic supplement recheck labs Assessment & Plan (10/18/2018 7:37 AM RESOLUTION ANALYST): Continue supplement Assessment & Plan (04/07/2018 3:29 PM CDT): Continue increased supplement Assessment & Plan (01/25/2018 12:34 PM CDT): Continue supplementation. Repeat level today. Arthritis 01/18/2018 GERD (gastroesophageal reflux disease) 8 Assessment & Plan (10/25/2018 1:37 PM RESOLUTION ANALYST): -Continue protonix. ANDREA on CPAP 09/06/2015 [...] compliance Assessment & Plan (10/29/2018 9:30 AM RESOLUTION ANALYST): Stable/BIBI. Patient had continued evidence of severe obstructive sleep apnea on September 2017 sleep study. - autoCPAP therapy w/ pressure 12-16 cm H2O and a small AirFit F20 full face mask. Assessment & Plan (10/28/2018 8:26 AM RESOLUTION ANALYST): Patient had continued evidence of severe obstructive sleep apnea on September 2017 sleep study. Plan: - Consult respiratory care for CPAP - autoCPAP therapy w/ pressure 12-16 cm H2O and a small AirFit F20 full face mask. Assessment & Plan (10/28/2018 8:20 AM RESOLUTION ANALYST): Patient had continued evidence of severe [...] up Assessment & Plan (10/29/2018 9:46 AM RESOLUTION ANALYST): For now, we will be working w/ provisional dx of bipolar disorder unspecified. Somewhat unclear if pt had a manic vs hypomanic episode preceding her hospitalization, but our concern is nonetheless significant. Pt has a hx of well documented sustained depressive episodes w/ collateral revealing she has been spending excessive amounts of money on items on sale after [place] and an excessive amount of time redecorating [...] outpatient Assessment & Plan (10/29/2018 9:30 AM RESOLUTION ANALYST): For now, we will be working [...] her house (wanting to make it a [employer] next year) and working on numerous [...] outpatient Assessment & Plan (10/28/2018 8:23 AM RESOLUTION ANALYST): Patient has persistent difficulty discarding or [...] aren Assessment & Plan (10/28/2018 8:16 AM RESOLUTION ANALYST): Patient has persistent difficulty discarding or [...] pramipexole Assessment & Plan (10/29/2018 9:30 AM RESOLUTION ANALYST): Stable/BIBI. 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 Past Treatment and Therapy Plans No past plan information found. Lifetime Dose Tracking * Chemical Lifetime Dose [...] 10/28/2018 Assessment & Plan (10/25/2018 3:09 AM RESOLUTION ANALYST): Psychological condition is improving with treatment. [...] (05/05/2018): Added automatically from request for surgery [id number] Right posterior capsular opacification 04/05/2018 10/28/2018 Corneal [...] feet daily. Stage 4 chronic kidney disease ([facility]) 01/25/2018 10/17/2020 Assessment & Plan (10/27/2018 10:50 AM RESOLUTION ANALYST): -Creatinine 1.50 on admission, increased to 1.70. Will empirically give 1L NS and hold lasix Assessment & Plan (10/18/2018 7:34 AM RESOLUTION ANALYST): Increased risk of hypoglycemia Assessment & Plan (01/25/2018 12:34 PM CDT): Renal condition is unchanged. Continue current treatment regimen. Renal condition will be reassessed in 6 months. Fatigue 01/18/2018 10/28/2018 Zelda esophagitis ([facility]) 12/11/2017 10/28/2018 Depression, recurrent ([facility]) 08/24/2017 10/28/2018 Assessment & Plan (01/25/2018 12:30 PM CDT): Psychological condition is improving with treatment. Continue current treatment regimen. Psychological condition will be reassessed at the next regular appointment. Valgus deformity of great toe 08/07/2017 10/28/2018 Chronic obstructive pulmonary disease 10/30/2016 04/01/2019 Assessment & Plan (10/25/2018 1:35 PM RESOLUTION ANALYST): -Continue home spiriva, symbicort, albuterol Knee pain 09/11/2016 10/28/2018 Posterior vitreous detachment 06/25/2016 10/28/2018 Combined forms of age-related cataract 06/25/2016 07/05/2018 Diabetic peripheral neuropathy ([facility]) 11/29/2015 10/28/2018 Overview (12/12/2016): Type 2 diabetes, [...] disease Assessment & Plan (10/18/2018 7:36 AM RESOLUTION ANALYST): Glucoses tend to be too high, [...] time. Assessment & Plan (10/27/2018 10:50 AM RESOLUTION ANALYST): -Coreg 6.25 BID -> 12.5mg BID Assessment & Plan (04/07/2018 3:27 PM CDT): Increased risk of hypoglycemia. Need to maintain a good margin of glycemic safety Blood pressure within target, managed by renal superintendent container terminal current use of insulin ([facility]) 09/06/2015 10/28/2018 Overview (12/12/2016): Insulin long-term use [...]
--- OUTSIDE RECORDS SUMMARY | 2024-10-25 12:47 | XMS_ITS | Encounter Summary ---
Author Organization [facility] Address [address] [place] [address] Phone Care Team Providers Care Canvas Repairer Name Role Phone Dayanna Odonnell MD Primary Care Provider Samantha Upton NP Unavailable [phone] Mook Duran MD PhD Unavailable [phone] Venice Dobbs RN Unavailable Mohan Mi MD Unavailable Maricarmen Helms MD Unavailable [phone] Nicolasa Jackson CYLINDER INSPECTOR Unavailable Bhavya Browne RN Unavailable [phone] Unknown, Notinfile Primary Care Provider Unavail able Sarbjit Lai MD Primary Care Provider Encounter Details Date Type Department Care Team (Late st Contact Info) Description 08/08/2019 Telephone [facility] Cardiology [address] [place] [address] [place] [address] Mook Duran MD PhD [address] [address] [place] [address] Social History Tobacco Use Types Packs/Day Years Used Date Smoking Tobacco: Never Smokeless Tobacco: Never Alcohol Use Standard Drinks/Week Comments No 0 (1 standard drink = 0.6 oz pur e alcohol) PHQ-2 Answer Date Recorded PHQ-2 Score 5 04/27/2019 Comments No Sex and Gender Information Value Date Recorded Sex Assigned at Not on file Legal Sex Female 7:43 PM SERVICE WORKER Gender Identity Female 07/19/2020 11:39 AM SERVICE WORKER Sexual Orientation Not on file documented as of this encounter Plan of Treatment Not on file documented as of this encounter Visit Diagnoses Not on filedocumented in this encounter Additional Health Concerns Infection Onset Date Last Indicated Resolved Time COVID: Suspected 08/14/2020 08/14/2020 08/28/2020 3:07 AM SERVICE WORKER documented as of this encounter Care Teams Canvas Repairer Relationship Specialty Start Date End Date Dayanna Odonnell MD PCP - General 12/05/16 06/22/22 Unknown, Notinfile PCP - General 06/23/22 08/27/22 Sarbjit Lai MD PCP - General Family Medicine 08/28/22 Samantha Upton NP Nurse Practitioner Internal Medicine 03/23/19 Mook Duran MD PhD [facility] [address] [place] [address] Referring Physician Cardiology 03/23/19 Venice Dobbs RN [address] [place] [address] [address] [place] [address] Ironworker Hel[employer] 04/28/19 01/08/21 Mohan Mi MD [address] [place] [address] [address] [place] [address] Referring Physician Nephrology 08/10/19 Maricarmen Helms MD [address] [place] [address] [address] [place] [address] Referring Physician Endocrinology Diabetes & Metabolism 08/08/21 Nicolasa Jackson NP [address] [place] [address] [address] [place] [address] Nurse Practitioner Nurse Practitioner 08/08/21 Bhavya Browne, RN [address] [place] [address] [place] [address] Ironworker Hel[employer] Shop 02/27/22 03/24/22 documented as of this encounter
--- OUTSIDE RECORDS SUMMARY | 2024-10-25 12:47 | XMS_ITS | Clinical Summary ---
Author Organization [facility] [employer] Address [address] [place] [address] Care Team Providers Care Farm Truck Driver Name Role Phone Margaux Eduardo MD Primary Care Provider [phone] Source Comments [facility] [employer],non-owned Affiliates and Associated Physician Practices is amultiple site organization consisting of ambulatory clinics and hospital sitesin [place], [place], [place] and [place]. This disclosure is being madepursuant to the Care Everywhere program and may not contain all information available regarding this patient. Last updated 18.[facility] [employer] Social History Tobacco Use Types Packs/Day Years Used Date Smoking Tobacco: Never Assessed Sex and Gender Information Value Date Recorded Sex Assigned at Not on file Gender Identity Not on file Sexual Orientation Not on file Plan of Treatment Health Maintenance Due Date Last Done Comments BONE DENSITY TESTING 1945 MEDICARE AWV 12 MONTHS 1945 HEPATITIS C SCREENING 12/18/1964 [...] age to complete this topic Care Teams Farm Truck Driver Relationship Specialty Start Date End Date Margaux Eduardo MD [address] [address] PCP - General 08/12/22
--- OUTSIDE RECORDS SUMMARY | 2024-10-25 12:48 | XMS_ITS | Patient Health Record ---
Author Organization [facility] Address [address] [place] [address] Care Team Providers Care Spindle Carver Name Role Phone Pia Orozco PA-C Primary Care Provider Unavailab Madhav Padgett Unavailable [phone] Migration, Provider Unavailable Unavailable Allergies Allergen (clinical drug ingredient) Drug/Non Drug Allergy documented on EMR Reaction Allergy Type Onset Date Status Non-steroidal anti-inflammatory agent (FN) NSAIDS (NON-STEROIDAL ANTI-INFLAMMATORY DRUG) (uncoded) Unknown Allergy Active Substance with 7-cntalbx-4-methylgluta ryl-coenzyme A reductase inhibitor mechanism of action (substance) [id number] REDUCTASE INHIBITORS (uncoded) Unknown Allergy Active atenolol Atenolol Unknown Drug Allergy Active Exenatide Unknown Drug Allergy Active prochlorperazine Prochlorperazine Unknown Drug Allergy Active hydrocodone Hydrocodone Unknown Drug Allergy Act gómez oxycodone Oxycodone Unknown Drug Allergy Active pseudoephedrine Pseudoephedrine Unknown Drug Allergy Active Reason For Referral No Information Medications Medication SIG (Take, Route, Frequency, Duration) Notes Start Date End Date Status Nystatin 084323 UNIT/GM External Active Bumetanide 2 MG Oral [...] UNIT/ML (3 ML) SUBCUTANEOUS PEN *Reorder from [facility] for eRx and Interaction Alerts* Active Divalproex [...] tive ONETOUCH VERIO REFLECT METER *Reorder from [facility] for eRx and Interaction Alerts* Active Famotidine 20 MG Oral Act gómez Amiodarone HCl 400 MG Oral Active Tresiba FlexTouch 200 UNIT/ML Subcutaneous Active HumuLIN R U-500 KwikPen 500 unit/mL (3 mL) Subcutaneous *Pick strength-form from [facility] for eRX* Active Brilinta 90 MG Oral Activ e Amiodarone HCl 200 MG Oral Active Allopurinol 100 MG Oral A ctive Venlafaxine HCl ER 150 MG Oral Active Amoxicillin-Pot Clavulanate 875-125 MG Oral Activ e Social History Sex Assigned At : Social History Observation Description Sex Assigned At Female Encounters Encounter Location Date Provider Diagnosis [facility] [employer] [place] [address] [facility] [address] [place] [address] [facility] [place] [address] [facility] [address] [place] [address] 08/19/2024 Madhav [facility] [place] [address] [place] [address] 01/23/[address] [facility] [employer] [facility] [place] [address] [place] [address] 01/24/2024 Provider Migration Plan Of Treatment No Information Insurance Providers Payer Name Payer Address Payer Phone Subscriber Number Group Number Insured Name Patient Relationship to Insured Coverage Start Date Coverage End Date Medicare-Mt Medicare [address] [place] [phone] [id number] MIKE KOWALSKI Self - patient is the insured [place] Supp[place] [address] [place] [address] [id number] MIKE KOWALSKI Self - patient is the insured Medical (General) History Medical History History ICD Code Anxiety Anemia Depression DM HTN Hypothyroidism Mixed HLD ANDREA
--- OUTSIDE RECORDS SUMMARY | 2024-10-25 12:48 | XMS_ITS | Encounter Summary ---
Author Organization [facility] Address [address] [place] [address] Care Team Providers Care Systems Architect Name Role Phone WonSamantha KACEY Unavailable [phone] Mook Duran MD PhD Unavailable [phone] Mohan Mi MD Unavailable Maricarmen Helms MD Unavailable [phone] Nicolasa Jackson NP Unavailable [phone] Sarbjit Lai MD Primary Care Provider [phone] Encounter Details Date Type Department Care Team (Late st Contact Info) Description 10/09/2023 Orders Only [facility] [address] [place] [id number] Scanning, Provider Social History Tobacco Use [...] any clubs o r organizations such as hindu groups, unions, fraternal or athletic groups, or [...] on file Legal Sex Female 7:43 PM CLEAN ENERGY POLICY ANALYST Gender Identity Female 07/19/2020 11:39 AM CLEAN ENERGY POLICY ANALYST Sexual Orientation Not on file documented as [...] on filedocumented in this encounter Care Teams Systems Architect Relationship Specialty Start Date End Date Sarbjit Lai MD [address] [place] [address] PCP - General Family Medicine 08/28/22 Samantha Upton NP Nurse Practitioner Internal Medicine 03/23/19 Mook Duran MD PhD [address] [place] [address] Referring Physician Cardiology 03/23/19 Mohan Mi MD [address] [place] [address] Referring Physician Nephrology 08/10/19 Maricarmen Helms MD [address] [place] [address] Referring Physician Endocrinology Diabetes & Metabolism 08/08/21 Nicolasa Jackson NP [address] [place] [address] Nurse Practitioner Nurse Practitioner 08/08/21 documented as of this encounter
--- OUTSIDE RECORDS SUMMARY | 2024-10-25 12:48 | XMS_ITS ---
Author Organization [facility] Address [address] [facility] [address] [place] [address] Care Team Providers Care Hhas Name Role Phone Pia Orozco PA-C Primary Care Provider Unavailab Madhav Padgett Unavailable [phone] Migration, Provider Unavailable Unavailable Allergies Allergen (clinical drug ingredient) Drug/Non Drug Allergy documented on EMR Reaction Allergy Type Onset Date Status Non-steroidal anti-inflammatory agent (FN) NSAIDS (NON-STEROIDAL ANTI-INFLAMMATORY DRUG) (uncoded) Unknown Allergy Active Substance with 0-kqkyqdv-4-methylgluta ryl-coenzyme A reductase inhibitor mechanism of action (substance) [id number] REDUCTASE INHIBITORS (uncoded) Unknown Allergy Active atenolol [...] Active ONETOUCH VERIO REFLECT METER *Reorder from [facility] for eRx and Interaction Alerts* Active Tresiba FlexTouch 200 UNIT/ML Subcutaneous Active HumuLIN R U-500 KwikPen 500 unit/mL (3 mL) Subcutaneous *Pick strength-form from [facility] for eRX* Active Brilinta 90 MG Oral Activ e Losartan Potassium 25 MG Oral Active Cephalexin 500 MG Oral Ac tive Ciprofloxacin HCl 500 MG Oral Active Repatha SureClick 140 mg/mL Subcutaneous Active Allopurinol 100 MG Oral A ctive Nystatin 316924 UNIT/GM External Active Bumetanide 2 MG Oral [...] UNIT/ML (3 ML) SUBCUTANEOUS PEN *Reorder from [facility] for eRx and Interaction Alerts* Active Venlafaxine HCl ER 150 MG Oral Active HumaLOG KwikPen 100 UNIT/ML Subcutaneous Active Gabapentin 100 MG Oral Ac tive Isosorbide Dinitrate 10 MG Oral Active Amoxicillin-Pot Clavulanate 875-125 MG Oral Activ e Social History Sex Assigned At : Social History Observation Description Sex Assigned At Female Encounters Encounter Location Date Provider Diagnosis [facility] [place] [address] [address] 01/24/2024 Provider Migration Plan Of Treatment No Information Progress Notes * MIKE KOWALSKI LDOB: 7 (78 yo F)Acc No.[id number]:01/24/2024 Patient: Fabiola MICKVANNA MIKE Alicia :1945 A ge:78 Y S ex:Female Address:[address] [place] [address] [place], [address] Subjective: * Chief Complaints: * E MR-Woody * Medical History: * Surgical History: * Hospitalization/Major Diagno stic Procedure: * Social History: M igrated Social History: M igrated Social History: Tobacco Years: Never smoker 12/08/2023. * Medications: T akingbusPIRone HCl 15 MG Tablet Oral Losartan Potassium 25 MG Tablet Oral Eliquis 5 MG Tablet Oral Amiodarone HCl 400 MG Tablet Oral Bumetanide 2 MG Tablet Oral Clindamycin HCl 300 MG Capsule Oral Nystatin 910320 UNIT/GM Ointment External Amoxicillin-Pot Clavulanate 875-125 MG Tablet Oral Isosorbide Dinitrate 10 MG Tablet Oral INSULIN DEGLUDEC (U-200) 200 UNIT/ML (3 ML) SUBCUTANEOUS PEN , Notes to Pharmacist: *Reorder from [facility] for eRx and Interaction Alerts*Pramipexole Dihydrochloride 0.25 MG Tablet Oral Divalproex Sodium ER 500 MG Tablet Extended Release 24 Hour Oral Carvedilol 25 MG Tablet Oral Repatha SureClick 140 mg/mL Solution Auto-injector Subcutaneous Amiodarone HCl 200 MG Tablet Oral Cephalexin 500 MG Capsule Oral Tresiba FlexTouch 200 UNIT/ML Solution Pen-injector Subcutaneous ONETOUCH VERIO REFLECT METER , Notes to Pharmacist: *Reorder from [facility] for eRx and Interaction Alerts*Gabapentin 100 MG [...] , Notes to Pharmacist: *Pick strength-form from [facility] for eRX*Omeprazole 20 MG Capsule Delayed Release Oral Taking busPIRone HCl 15 MG Tablet Oral Taking Losartan Potassium 25 MG Tablet Oral Taking Eliquis 5 MG Tablet Oral Taking Amiodarone HCl 400 MG Tablet Oral Taking Bumetanide 2 MG Tablet Oral Taking Clindamycin HCl 300 MG Capsule Oral Taking Nystatin 803197 UNIT/GM Ointment External Taking Amoxicillin-Pot Clavulanate 875-125 MG Tablet Oral Taking Isosorbide Dinitrate 10 MG Tablet Oral Taking INSULIN DEGLUDEC (U-200) 200 UNIT/ML (3 ML) SUBCUTANEOUS PEN , Notes to Pharmacist: *Reorder from [facility] for eRx and Interaction Alerts*Taking Pramipexole Dihydrochloride [...] METER , Notes to Pharmacist: *Reorder from [facility] for eRx and Interaction Alerts*Taking Gabapentin 100 [...] , Notes to Pharmacist: *Pick strength-form from [facility] for eRX*Taking Omeprazole 20 MG Capsule Delayed Release Oral * Allergies: N SAIDS (NON-STEROIDAL ANTI-INFLAMMATORY DRUG): [id number] REDUCTASE INHIBITORS: AllergyAtenolol: AllergyExenatide: AllergyProchlorperazine: AllergyHydrocodone: AllergyOxycodone: AllergyPseudoephedrine: Allergy Objective: * Vitals: * Physical Examination: Assessment: Plan: * Treatment: * Procedure Codes: * true * Date: Generated for Khris becerra/Camilo/Domingo on: 0 10/25/2024 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
[2024-10-25 13:09] LABS: Alveolar/Arterial O2 Gradient 29.1 mmHg; Base Excess ABG 3.1 mEq/l (+/-2.0); Fractional Inspired Oxygen 36 %; HCO3 ABG 26.8 mEq/l (22.0-26.0); Oxygen Content ABG 15.6 %vol (16.0-22.0); Oxygen Saturation ABG 99.3 % (95.0-100.0); Oxyhemoglobin 98.5 % THb (90.0-100.0); PCO2 ABG 37.6 mmHg (35.0-45.0); PO2 FiO2 Ratio Arterial Blood 5.11 %; Site Drawn RIGHT RADIAL; pH ABG 7.471 (7.350-7.450)
[2024-10-25 13:10] LABS: Device NASAL CANNULA; Modified Allen's Test Pass
[2024-10-25 13:21] LABS: Basophils Percent Auto 0.5 % (0.2-1.2); Eosinophils Percent Auto 0.2 % (0-4.4); Hemoglobin 10.6 g/dL (12.0-15.0); Immature Granulocyte Absolute 0.02 K/mm3 (0.00-0.031); Immature Granulocyte Percent A 0.2 % (0-0.5); Lymphocytes Absolute Auto 0.56 K/mm3 (0.9-3.2); Lymphocytes Percent Auto 6.6 % (18.3-44.2); Mean Corpuscular HGB Conc 30.3 g/dl (32-36); Mean Corpuscular Hemoglobin 26.8 pg (26-34); Mean Corpuscular Volume 88.4 fl (80-100); Mean Platelet Volume 10.5 fl (7.4-10.4); Monocytes Absolute Auto 0.5 K/mm3 (0.1-0.6); Monocytes Percent Auto 5.9 % (2.6-8.5); Neutrophils Absolute Auto 7.3 K/mm3 (1.3-6.7); Neutrophils Percent Auto 86.6 % (45.5-73.1); Platelet Count Result 175 k/mm3 (150-375); Red Blood Count 3.96 M/mm3 (4.2-5.4); Red Cell Distribution Width 23.2 % (11.5-14.5); White Blood Count 8.5 K/mm3 (4.5-10.0)
[2024-10-25 13:31] LABS: Lactic Acid Reflex 1.5 mmol/L (0.7-2.0)
[2024-10-25 13:35] LABS: Alanine Aminotransferase 22 U/L (6-35); Alkaline Phosphatase 166 U/L (38-126); Anion Gap 9 mmol/L (4-12); Aspartate Amino Transferase 25 U/L (14-36); Bilirubin,Total 0.6 mg/dL (0.2-1.3); Blood Urea Nitrogen 36 mg/dL (7-17); Calcium 8.7 mg/dL (8.4-10.2); Carbon Dioxide 31 mmol/L (22-30); Chloride 101 mmol/L (98-107); Estimated Glomerular Filt Rate 27; Glucose 106 mg/dL (65-110); Potassium 2.7 mmol/L (3.4-5.0); Sodium 141 mmol/L (137-145)
[2024-10-25 13:36] LABS: INR 1.8; Prothrombin Time 20.7 Seconds (11.1-14.7)
[2024-10-25 13:37] LABS: Partial Thromboplastin Time 31.7 Seconds (22.3-36.8)
[2024-10-25 13:41] LABS: NT Pro B Type Natriuretic Pept 16200 pg/mL (19.9-100)
[2024-10-25] MEDS: dilTIAZem HCl INJ 25 MG/5 ML VIAL 10 MG IV PUSH ×2 (13:43→14:52)
[2024-10-25 13:47] LABS: Platelet Estimate Adequate (Adequate)
[2024-10-25 13:48] LABS: Anisocytosis 2+; Hypochromasia 1+; Ovalocytes 1+; Target Cells 1+
[2024-10-25 13:49] LABS: Schistocytes None Seen
[2024-10-25 13:53] LABS: Procalcitonin 0.4 ng/mL
[2024-10-25 13:56] LABS: Influenza A QL RT-PCR Negative (Negative); Influenza B QL RT-PCR Negative (Negative); RSV RNA, RT-PCR Negative (Negative); SARS-CoV-2 RNA PCR Negative (Negative)
[2024-10-25] MEDS: KCL 20 MEQ/SW 100 ML 100 ML 50 MEQ IVPB (13:56)
[2024-10-25 14:01] LABS: Appearance Urine Cloudy (Clear); Bilirubin Urine Negative (Negative); Blood Urine 2+ (Negative); Color Urine Yellow (Yellow); Glucose Urine UA Negative (Negative); Ketones Urine Negative (Negative); Leukocyte Esterase Ur 3+ LEU/UL (Negative); Nitrate Urine Negative (Negative); Protein Urine Negative (Negative); Urobilinogen Urine 0.2 mg/dL (<2.0)
[2024-10-25 14:02] LABS: Add Urine Microscopic? YES; Bacteria Urine None Seen /hpf; Need Manual Microscopic Reviewed; Squamous Epithelial Cell Urine None Seen /hpf (Few); WBC Urine >100 /hpf (0-3)
[2024-10-25] MEDS: FUROSEMIDE INJ 40 MG/4 ML VIAL IV PUSH (14:55)
[2024-10-25] MEDS: dilTIAZem 100 MG/100 ML 100 MG/100 ML BAG IV CONT (15:02)
[2024-10-25] MEDS: AZITHROMYCIN 500 MG/NS 250 ML 500 MG/250 ML BAG 250 MG IVPB (15:03)
[2024-10-25] MEDS: SODIUM CHLORIDE 0.9% IV 500 ML 50 ML (15:12)
--- NOTE | 2024-10-25 15:45 | PM.IMHP ---
H&P: HPI History of Present Illness Date/Time: 10/25/24 16:00 Chief Complaint: Shortness of breath and low oxygen levels. Narrative: This is a 78-year-old female with coronary artery disease, paroxysmal atrial fibrillation on anticoagulation, diastolic congestive heart failure, pulmonary hypertension, obstructive sleep apnea on CPAP, hypertension, hyperlipidemia, chronic kidney disease, anemia, type 2 diabetes mellitus, memory impairment, C difficile diarrhea, depression, suicide attempt in 2023, and other comorbidities who presented to the emergency department via EMS from a local nursing facility for evaluation of shortness of breath and low oxygen levels. She provides the following history however some information is obtained via a review of her EMR given her underlying memory impairment and the fact that she is currently on BiPAP. She reports a nonproductive cough for the last several days and this morning she was complaining of shortness of breath and was reportedly found has an SpO2 in the upper 70s and she was sent in for evaluation. She has no current complaints and denies fever, chills, sweats, headache, sore throat, productive cough, chest pain, pleuritic pain, nausea, vomiting, diarrhea, and calf pain. In the ED: She was on 4 L nasal cannula on arrival but was transitioned to BiPAP as she was tachycardic and tachypneic and she is much more comfortable on the BiPAP. She has been afebrile since arrival with stable blood pressures. She is in rapid atrial fibrillation is currently on a diltiazem drip with improvement in her rate. Labs were significant for hemoglobin of 10.6, INR 1.8, potassium 2.7, BUN 36, creatinine 1.80, proBNP 32010. Urinalysis was positive for 2+ blood, 3+ leukocyte esterase, 6 to 10 RBC, greater than 100 WBC though no bacteria were seen on microscopy. Respiratory panel was negative. Chest x-ray showed left lower lobe airspace opacities consistent with atelectasis versus pneumonia. She was started on antibiotics and she is being admitted in this setting for further treatment. Review of Systems Review of Systems: 12 systems were reviewed and are negative except for as per HPI. [facility] Past Medical History Medical History Mild cognitive impairment Diabetic polyneuropathy Metabolic encephalopathy Type 2 diabetes mellitus (1989) Restless leg syndrome Hypothyroidism Chronic anticoagulation Paroxysmal atrial fibrillation Degeneration of lumbar or lumbosacral intervertebral disc Ataxia Mixed hyperlipidemia Macular degeneration Diabetic peripheral neuropathy Obstructive sleep apnea on CPAP Dysphagia Knee osteoarthritis Venous stasis dermatitis Skin cancer Hypertension Anxiety Depression Anemia Breast cancer Surgical History Surgical History History of cataract removal with insertion of prosthetic lens History of coronary artery stent placement History of cardiac catheterization History of right hip replacement (2018) History of reconstruction of right breast Normal esophagogastroduodenoscopy (EGD) History of right mastectomy History of cholecystectomy Family History Family History Father Hypertension COPD (chronic obstructive pulmonary disease) Heart disease Diabetes mellitus Mother Lung cancer Depression Sibling Acute basophilic leukemia Sepsis Diabetes mellitus Acute myocardial infarction Daughter Depression Drug overdose Sibling No problems noted. Social History Social History Social History: Surrogate medical decision maker: Luis Rome, jayne. Code status: Full code. Smoking status: Never smoker Second hand tobacco smoke exposure: No Alcohol intake: never Substance use: never Substance use type: does not use Do You Feel Safe in your Home?: Yes Lack of Transportation: No Lack of Food: Never True Current Housing: I Have Housing Concerned About Future Housing: No Difficulty Paying Gas/Electric Bills: No Difficulty Paying for Meds: No Currently Unemployed: No Education: High School Diploma/GED Difficulty w/ Childcare or Family Care: No Living arrangements: alone Additional living arrangements comments: . Lives alone. Has 2 children, daughter . 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 Spiritual care concerns: No Meds Home Medications and Allergies Home Medications ?Medication ?Instructions ?Recorded ?Confirmed ?Type divalproex 500 mg tablet,delayed 500 mg PO HS 03/06/22 10/25/24 History release (Depakote) vit C 250 mg-E 90 mg-zinc 40 1 tablet PO Q12H 03/27/23 10/25/24 History mg-copper 1 yi-cvtsll-sayopy chew tablet (PreserVision AREDS-2) evolocumab 140 mg/mL subcutaneous 140 mg subcut Q14D 07/13/23 10/25/24 History pen injector (Repatha SureClick) blood-glucose meter (Blood Glucose #1 ea 02/22/24 10/25/24 Rx Monitoring kit) calcium 600 mg (as 1 tablet PO DAILY 04/04/24 10/25/24 History carbonate)-vitamin D3 5 mcg (200 unit) tablet famotidine 20 mg tablet 20 mg PO HS 04/04/24 10/25/24 History memantine 10 mg tablet 10 mg PO Q12H 04/04/24 10/25/24 History nystatin 100,000 unit/gram topical 1 applic topical BID PRN Rash 04/04/24 10/25/24 History ointment vitamin B complex 1 tablet PO DAILY 04/04/24 10/25/24 History apixaban 5 mg tablet (Eliquis) 5 mg PO Q12H #90 tabs 04/26/24 10/25/24 Rx insulin lispro 100 unit/mL 14 unit (0.14 mL) subcut .tidac 90 05/19/24 10/25/24 Rx subcutaneous pen (Humalog KwikPen days #54 mL (U-100) Insulin) isosorbide dinitrate 10 mg tablet 10 mg PO Q12H #90 tabs 05/31/24 10/25/24 Rx trospium 20 mg tablet 20 mg PO Q12H #30 tabs 06/24/24 10/25/24 Rx mupirocin 2 % topical ointment 1 applic topical BID #22 grams 07/12/24 10/25/24 Rx allopurinol 100 mg tablet 100 mg PO DAILY 07/21/24 10/25/24 History bupropion HCl 150 mg 24 hr tablet, 150 mg PO DAILY 07/21/24 10/25/24 History extended release buspirone 15 mg tablet 15 mg PO DAILY 07/21/24 10/25/24 History carvedilol 6.25 mg tablet 6.25 mg PO DAILY 07/21/24 10/25/24 History pramipexole 0.25 mg tablet 0.25 mg PO BID 07/21/24 10/25/24 History venlafaxine 75 mg capsule,extended 125 mg PO DAILY 07/21/24 10/25/24 History release 24 hr (Effexor XR) bumetanide 1 mg tablet 1 mg PO DAILY #90 tabs 08/25/24 10/25/24 Rx diltiazem HCl 120 mg capsule,24 240 mg (2 x 120 mg) PO QAM #90 caps 08/25/24 10/25/24 Rx hr,extended release ferrous sulfate 142 mg (45 mg 142 mg PO DAILY@0800 #90 tabs 08/25/24 10/25/24 Rx iron) tablet,extended release (Slow Release Iron) insulin glargine U-300 conc 300 10 unit (0.0333 mL) subcut DAILY 08/25/24 10/25/24 Rx unit/mL (3 mL) subcutaneous pen 90 days #15 mL (Toujeo Max U-300 SoloStar) levothyroxine 100 mcg tablet 100 mcg PO DAILY@0630 #90 tabs 08/25/24 10/25/24 Rx (Synthroid) metoprolol tartrate 50 mg tablet 100 mg (2 x 50 mg) PO Q12HR #90 08/25/24 10/25/24 Rx tabs polyethylene glycol 3350 17 gram 17 g PO QAM PRN Constipation #30 ea 08/25/24 10/25/24 Rx oral powder packet (Miralax) omeprazole 40 mg capsule,delayed 40 mg PO DAILY laryngopharyngeal 09/02/24 10/25/24 Rx release reflux #30 caps Allergies Allergy/AdvReac Type Severity Reaction Status Date / Time Bbqhnnm-LXV-LyI Reductase Allergy Intermediate Other Verified 09/30/24 09:43 Inhibitor pseudoephedrine Allergy Unknown Hives Verified 09/30/24 09:43 NSAIDS (Non-Steroidal AdvReac Intermediate Other Verified 09/30/24 09:43 Anti-Inflamma oxycodone AdvReac Intermediate Itching Verified 09/30/24 09:43 atenolol AdvReac Mild Muscle Pain Verified 09/30/24 09:43 exenatide (From Bydureon) AdvReac Mild Diarrhea Verified 09/30/24 09:43 hydrocodone (From Panlor AdvReac Mild Itching Verified 09/30/24 09:43 (hydrocodone-acetamin)) prochlorperazine (From AdvReac Mild Itching Verified 09/30/24 09:43 Compazine) rice AdvReac Mild Heartburn Verified 09/30/24 09:43 Vital Signs Vital Signs - 24 hr 10/25/24 12:29 10/25/24 13:17 10/25/24 13:28 Temperature 97.6 F Pulse Rate 123 H 113 H 116 H Respiratory Rate 25 H 24 H 22 H Blood Pressure 114/87 138/72 Pulse Oximetry 98 93 98 Oxygen Delivery Nasal Cannula BiPAP BiPAP Oxygen Flow Rate 4 10/25/24 13:28 10/25/24 14:57 10/25/24 14:57 Temperature Pulse Rate 111 H 97 Respiratory Rate 16 Blood Pressure 107/69 Pulse Oximetry 97 95 Oxygen Delivery BiPAP Oxygen Flow Rate 10/25/24 15:02 Temperature Pulse Rate 107 H Respiratory Rate Blood Pressure 105/69 Pulse Oximetry Oxygen Delivery Oxygen Flow Rate Exam Narrative: General: Chronically ill-appearing female sitting up in bed on BiPAP. Weight: 118.8 kg. BMI: 43.6. HEENT: PERRL, EOMI. Sclera anicteric. Mucous membranes appear tacky through the BiPAP. Neck: Supple. No significant JVD. Respiratory: Respirations are nonlabored and she appears comfortable on BiPAP. Scattered upper airway rhonchi heard anteriorly. Cardiovascular: Irregularly irregular rate and rhythm. Gastrointestinal: Abdomen is soft, obese, nontender, and nondistended with positive bowel sounds. Skin: Warm and dry. Erythema of the lower legs due to chronic edema and venous stasis. Extremities: No cyanosis or clubbing. Bilateral lower extremity pitting edema. No palpable knots or cords. Negative Naa sign bilaterally. Pedal pulses diminished but palpable. Neurological: Alert and oriented. Cranial nerves 2-12 are grossly intact. No gross focal deficits to casual conversation. Psychiatric: Pleasant and cooperative with appropriate mood. She seems a bit forgetful. H&P: Results Labs Labs: Short CBC 10/25/24 Range/Units 13:13 WBC 8.5 (4.5-10.0) K/mm3 Hgb 10.6 L (12.0-15.0) g/dL Hct 35.0 L (37.0-47.0) % Plt Count 175 (150-375) k/mm3 BMP 10/25/24 13:13 Sodium 141 Potassium 2.7 L* Chloride 101 Carbon Dioxide 31 H BUN 36 H D Creatinine 1.80 H Glucose 106 Calcium 8.7 Liver Function 10/25/24 Range/Units 13:13 Total Bilirubin 0.6 (0.2-1.3) mg/dL AST 25 (14-36) U/L ALT 22 (6-35) U/L Alkaline Phosphatase 166 H (38-126) U/L Albumin 3.0 L (3.5-5.1) g/dL Urine 10/25/24 Range/Units 13:48 Urine Color Yellow (Yellow) Urine Appearance Cloudy H (Clear) Urine pH 5.0 (5.0-9.0) Ur Specific [place] 1.010 (1.001-1.035) Urine Protein Negative (Negative) mg/dL Urine Glucose (UA) Negative (Negative) mg/dL Impressions Chest X-Ray 10/25/24 13:58 IMPRESSION: 1. Left lower lobe airspace opacities, consistent with atelectasis versus pneumonia. Assessment and Plan Assessment and plan (1) Acute respiratory failure with hypoxia: Code(s): J96.01 - Acute respiratory failure with hypoxia Status: Acute (2) Acute on chronic diastolic congestive heart failure: Code(s): I50.33 - Acute on chronic diastolic (congestive) heart failure Status: Acute (3) Pneumonia: Code(s): J18.9 - Pneumonia, unspecified organism Status: Acute (4) Atrial fibrillation with RVR: Code(s): I48.91 - Unspecified atrial fibrillation Status: Acute (5) Hypokalemia: Code(s): E87.6 - Hypokalemia Status: Acute (6) Hypertension: Qualifiers: Hypertension type: unspecified Qualified Code(s): I10 - Essential (primary) hypertension Code(s): I10 - Essential (primary) hypertension Status: Chronic (7) Insulin dependent type 2 diabetes mellitus: Code(s): E11.9 - Type 2 diabetes mellitus without complications; Z79.4 - vermin exterminator (current) use of insulin Status: Acute (8) Hypothyroidism: Qualifiers: Hypothyroidism type: acquired Qualified Code(s): E03.9 - Hypothyroidism, unspecified Code(s): E03.9 - Hypothyroidism, unspecified Status: Acute (9) Stage 3b chronic kidney disease (CKD): Code(s): N18.32 - Chronic kidney disease, stage 3b Status: Acute Plan The patient presented to the emergency department for evaluation of shortness of breath and hypoxia as detailed in HPI. Labs, imaging, EKG, and all reports were personally reviewed. She was placed on BiPAP on arrival to the ED due to work of breathing and she is much more comfortable at this time. ABG was without evidence of hypercapnia and will be weaned to room air as tolerated. Hypoxia is likely due to a combination of suspected pneumonia seen on chest x-ray in addition to volume overload. Potassium will be replaced prior to initiating diuretics. Continue antibiotics. Heart rate is improving on a diltiazem drip. Continue apixaban for stroke prophylaxis. Renal function is stable on review of previous labs. Blood pressures are also stable. Continue basal insulin. Initiate sliding scale insulin, Accu-Cheks, and hypoglycemic protocol. Her home medications will be reviewed and resumed as appropriate. Findings and treatment plan were discussed with the patient. Questions were solicited and answered to satisfaction. The patient's medical management will be taken over by the hospitalist team in a.m. Quality VTE Prophylaxis VTE prophylaxis: pharmacologic ordered (on apixaban) Hospitalist [facility] Advance Care Plan I have confirmed that the patient's Advanced Care Plan is present, code status is documented, or surrogate decision maker is listed in patient medical record.: Yes Medication Reconciliation I have utilized all available resources to obtain, update and review the patients current medications (includes all prescriptions, OTC, herbals, cannabis, and nutritional supplements).: Yes
--- NOTE | 2024-10-25 18:40 | PC.NURSE ---
1644 pm, patient arrived to the floor via stretcher from the ER on continuous BIPAP. Oriented only to self. Unable to answer simple questions or follow simple commands at times including whether or not she has her own teeth, if she is hard of hearing or wears glasses. Family member arrived a very short time after patient. Per patient son's, patient was admitted to a SNF after last admission to the hospital, with hopes that if she had received rehab, she would eventually be able to go home. But while she hasn't declined further, she also hasn't progressed. She doesn't do rehab, she is either napping or sitting in her wheelchair. As the conversation continued and based on the patient's wishes of just wanting to , I asked the family member if he or she has ever talked about or considered hospice. This RN educated the patient's family member what hospice is and what they can do to help his mother as she transitions towards the end of life. The patient's son stated that he has a good friend who works for [facility] and this RN encouraged him to reach out to his friend to learn more about how hospice might be able to help him. This RN discussed with him further about how the process works from the hospital stand point, including involving care coordination to assist him along the way. Furthermore we discussed the patient's care while she will be in the hospital. He verbalizes understanding at this time and denies further questions at this time.
[2024-10-25 20:17] LABS: Glucose Point of Care 134 mg/dl (65-105)
[2024-10-25] MEDS: FAMOTIDINE 20 MG TABLET PO (22:48)
[2024-10-25] MEDS: APIXABAN 5 MG TABLET PO (22:48)
[2024-10-25] MEDS: METOPROLOL TARTRATE 50 MG TAB 100 MG PO (22:48)
[2024-10-25] MEDS: MEMANTINE 10 MG TABLET PO (22:48)
[2024-10-25] MEDS: DIVALPROEX SODIUM ER 500 MG TAB.24H PO (22:48)
[2024-10-25] MEDS: ISOSORBIDE DINITRATE 10 MG TABLET PO (22:48)
[2024-10-25] MEDS: ACETAMINOPHEN 325 MG TABLET 650 MG PO (22:49)
[2024-10-26] VITALS (25 sets, daily range): BP systolic 94–128; BP diastolic 47–78; PULSE 89–119; RESP 18–22; TEMP 36.1–37; O2SAT 93–99; BMI 43.5
[2024-10-26 00:30] LABS: Magnesium 1.6 mg/dL (1.6-2.3); Potassium 2.8 mmol/L (3.4-5.0)
[2024-10-26 00:45] LABS: MRSA (PCR) NOT DETECTED (NOT DETECTE)
[2024-10-26] MEDS: MAGNESIUM SULF 2 GM/WATER 50ML 2 GM/50 ML BAG IVPB (01:29)
[2024-10-26] MEDS: POTASSIUM CHLORIDE INJ 40 MEQ in SODIUM CHLORIDE 0.9% IV 500 ML 130 MEQ IVPB ×2 (01:32→05:41)
[2024-10-26 07:20] LABS: Glucose Point of Care 172 mg/dl (65-105)
[2024-10-26] MEDS: BUMETANIDE INJ 1 MG/4 ML VIAL IV PUSH ×2 (10:44→17:20)
[2024-10-26] MEDS: METOPROLOL TARTRATE 50 MG TAB 100 MG PO ×2 (10:44→20:06)
[2024-10-26] MEDS: ISOSORBIDE DINITRATE 10 MG TABLET PO ×2 (10:46→20:05)
[2024-10-26] MEDS: VENLAFAXINE HCL XR 37.5 MG CAP BY MOUTH (10:46)
[2024-10-26] MEDS: VENLAFAXINE HCL XR 75 MG CAP.ER.24H PO (10:46)
[2024-10-26] MEDS: APIXABAN 5 MG TABLET PO ×2 (10:46→20:06)
[2024-10-26 11:20] LABS: Glucose Point of Care 153 mg/dl (65-105)
[2024-10-26 11:24] LABS: Anion Gap 11 mmol/L (4-12); Blood Urea Nitrogen 43 mg/dL (7-17); Calcium 8.5 mg/dL (8.4-10.2); Carbon Dioxide 28 mmol/L (22-30); Chloride 103 mmol/L (98-107); Estimated CRCL calculation 25 ml/min; Estimated Glomerular Filt Rate 21; Glucose 172 mg/dL (65-110); Magnesium 2.1 mg/dL (1.6-2.3); Potassium 3.8 mmol/L (3.4-5.0); Sodium 142 mmol/L (137-145)
[2024-10-26 11:33] LABS: Iron 17 ug/dL (37-170)
[2024-10-26 11:41] LABS: Hematocrit 32.6 % (37.0-47.0); Hemoglobin 9.6 g/dL (12.0-15.0); Mean Corpuscular HGB Conc 29.4 g/dl (32-36); Mean Corpuscular Hemoglobin 26.6 pg (26-34); Mean Corpuscular Volume 90.3 fl (80-100); Mean Platelet Volume 10.8 fl (7.4-10.4); Platelet Count Result 176 k/mm3 (150-375); Red Blood Count 3.61 M/mm3 (4.2-5.4); Red Cell Distribution Width 23.9 % (11.5-14.5); White Blood Count 12.2 K/mm3 (4.5-10.0)
[2024-10-26 11:43] LABS: Percent Iron Saturation 7 % (20-50)
--- NOTE | 2024-10-26 14:03 | PCSTNOTE ---
Please refer to the Bedside Swallow Evaluation in the EMR. Please note, silent aspiration cannot be ruled out at bedside.
[2024-10-26 16:29] LABS: Glucose Point of Care 230 mg/dl (65-105)
[2024-10-26] MEDS: INSULIN ASPART (*BKC) 100 UNITS/ML SUB-Q ×2 (17:20→21:12)
--- NOTE | 2024-10-26 18:10 | PM.IMPN ---
Progress Note: A&P Assessment and Plan (1) Acute respiratory failure with hypoxia: Code(s): J96.01 - Acute respiratory failure with hypoxia Status: Acute (2) Acute on chronic diastolic congestive heart failure: Code(s): I50.33 - Acute on chronic diastolic (congestive) heart failure Status: Acute (3) Pneumonia: Code(s): J18.9 - Pneumonia, unspecified organism Status: Acute (4) Atrial fibrillation with RVR: Code(s): I48.91 - Unspecified atrial fibrillation Status: Acute (5) Hypokalemia: Code(s): E87.6 - Hypokalemia Status: Acute (6) Hypertension: Qualifiers: Hypertension type: unspecified Qualified Code(s): I10 - Essential (primary) hypertension Code(s): I10 - Essential (primary) hypertension Status: Chronic (7) Insulin dependent type 2 diabetes mellitus: Code(s): E11.9 - Type 2 diabetes mellitus without complications; Z79.4 - MCFP (current) use of insulin Status: Acute (8) Hypothyroidism: Qualifiers: Hypothyroidism type: acquired Qualified Code(s): E03.9 - Hypothyroidism, unspecified Code(s): E03.9 - Hypothyroidism, unspecified Status: Acute (9) Stage 3b chronic kidney disease (CKD): Code(s): N18.32 - Chronic kidney disease, stage 3b Status: Acute Plan Acute hypoxemic respiratory failure From pneumonia Currently 4 L oxygen Continue titrating. Pneumonia chest x-ray showed left lower lobe infiltrates Monitor blood sputum culture, MRSA Continue Rocephin and azithromycin. Atrial fibrillation with rapid ventricular response Improving Continue Eliquis and metoprolol. Hypokalemia Resolving, potassium is 3.8 replaced and monitor Iron deficiency anemia Hb 9.6, Isat 7 Start IV iron 500/1000 monitor CKD stable, Cr 2.25 which is about baseline DM2 SSI with accucheks and adjust wiht clinical course HTN Titrate home meds with clinical course Depression Continue home meds Hypothyroidism Continue home Levothyroxine DVT prophylaxis on Sq Lovenox Subjective Date/time seen: 10/26/24 18:10 Interval history: Comfortable at bedside Son was considering hospice care but has not made up his mind yet Review of Systems Review of Systems: 12 systems were reviewed and are negative except for as per HPI. Exam Narrative: General: Alert and oriented times 2, was able to tell the year and month butnot the day HEENT: PERRL, EOMI. Sclera anicteric. Mucous membranes appear tacky through the BiPAP. Neck: Supple. No significant JVD. Respiratory: Respirations are nonlabored and she appears comfortable on BiPAP. Scattered upper airway rhonchi heard anteriorly. Cardiovascular: Irregularly irregular rate and rhythm. Gastrointestinal: Abdomen is soft, obese, nontender, and nondistended with positive bowel sounds. Skin: Warm and dry. Erythema of the lower legs due to chronic edema and venous stasis. Extremities: No cyanosis or clubbing. Bilateral lower extremity pitting edema. No palpable knots or cords. Negative Naa sign bilaterally. Pedal pulses diminished but palpable. Neurological: Alert and oriented. Cranial nerves 2-12 are grossly intact. No gross focal deficits to casual conversation. Psychiatric: Pleasant and cooperative with appropriate mood. She seems a bit forgetful. Objective Data Vital Signs Vital Signs: Vital Signs - 24 hr 10/25/24 20:00 10/25/24 20:00 10/25/24 20:00 Temperature 99.0 F Pulse Rate 103 H 103 H Respiratory Rate 20 Blood Pressure 134/80 134/80 Pulse Oximetry 100 99 Oxygen Delivery Nasal Cannula Oxygen Flow Rate 4 Fraction of Inspired Oxygen 10/25/24 20:00 10/25/24 22:00 10/25/24 22:00 Temperature Pulse Rate 112 H 104 H 104 H Respiratory Rate Blood Pressure 134/80 Pulse Oximetry Oxygen Delivery Oxygen Flow Rate Fraction of Inspired Oxygen 10/25/24 22:48 10/25/24 23:53 10/26/24 00:00 Temperature 98.7 F Pulse Rate 103 H 111 H Respiratory Rate 20 Blood Pressure 128/78 Pulse Oximetry 97 99 Oxygen Delivery BiPAP Oxygen Flow Rate Fraction of Inspired Oxygen 40 10/26/24 00:00 10/26/24 00:00 10/26/24 00:16 Temperature Pulse Rate 111 H 94 98 Respiratory Rate 20 Blood Pressure 128/78 Pulse Oximetry 99 Oxygen Delivery BiPAP Oxygen Flow Rate Fraction of Inspired Oxygen 10/26/24 01:46 10/26/24 02:00 10/26/24 02:00 Temperature Pulse Rate 90 93 Respiratory Rate Blood Pressure 109/59 L 109/59 L Pulse Oximetry Oxygen Delivery Oxygen Flow Rate Fraction of Inspired Oxygen 10/26/24 02:43 10/26/24 04:00 10/26/24 04:00 Temperature Pulse Rate 89 108 H Respiratory Rate 19 Blood Pressure 99/53 L Pulse Oximetry 99 96 Oxygen Delivery BiPAP BiPAP Oxygen Flow Rate Fraction of Inspired Oxygen 40 10/26/24 04:00 10/26/24 04:37 10/26/24 06:00 Temperature 98.6 F Pulse Rate 108 H 99 97 Respiratory Rate 22 H Blood Pressure 99/53 L 94/47 L Pulse Oximetry 96 Oxygen Delivery Oxygen Flow Rate Fraction of Inspired Oxygen 10/26/24 06:00 10/26/24 06:20 10/26/24 07:38 Temperature 98.1 F 96.9 F L Pulse Rate 97 102 H Respiratory Rate 22 H 22 H Blood Pressure 94/47 L 111/77 Pulse Oximetry 96 96 Oxygen Delivery Oxygen Flow Rate Fraction of Inspired Oxygen 10/26/24 08:00 10/26/24 08:00 10/26/24 09:12 Temperature Pulse Rate 114 H Respiratory Rate Blood Pressure Pulse Oximetry 94 94 Oxygen Delivery Nasal Cannula Oxygen Flow Rate 4 Fraction of Inspired Oxygen 10/26/24 09:16 10/26/24 10:00 10/26/24 10:15 Temperature 97.6 F Pulse Rate 110 H 100 Respiratory Rate 20 Blood Pressure 114/77 Pulse Oximetry 94 96 Oxygen Delivery Nasal Cannula Oxygen Flow Rate 4 Fraction of Inspired Oxygen 10/26/24 11:50 10/26/24 12:00 10/26/24 12:00 Temperature 97.5 F L Pulse Rate 102 H 106 H Respiratory Rate 20 Blood Pressure 100/54 L Pulse Oximetry 94 94 Oxygen Delivery Nasal Cannula Oxygen Flow Rate 4 Fraction of Inspired Oxygen 10/26/24 14:00 10/26/24 16:00 10/26/24 16:00 Temperature Pulse Rate 119 H 107 H Respiratory Rate Blood Pressure Pulse Oximetry 94 Oxygen Delivery Nasal Cannula Oxygen Flow Rate 4 Fraction of Inspired Oxygen 10/26/24 16:13 Temperature 97.3 F L Pulse Rate 107 H Respiratory Rate 20 Blood Pressure 103/47 L Pulse Oximetry 94 Oxygen Delivery Oxygen Flow Rate Fraction of Inspired Oxygen Intake/Output Intake/Output: Intake & Output 10/23/24 10/24/24 10/25/24 10/26/24 23:59 23:59 23:59 23:59 Intake Total 554.8 1480 Output Total 250 Balance 554.8 1230 Meds/Results Medications: Active Medications Generic Name Dose Route Start Last Admin Trade Name Freq PRN Reason Stop Dose Admin Acetaminophen 650 mg 10/25/24 21:03 10/25/24 22:49 Acetaminophen 325 Mg Tablet PO 650 mg Q6H PRN Administration Mild Pain (1-3) or Fever Allopurinol 100 mg 10/26/24 08:00 10/26/24 10:56 Allopurinol 100 Mg Tablet PO Not Given DAILY@0800 [facility] Apixaban 5 mg 10/25/24 21:05 10/26/24 10:46 Apixaban 5 Mg Tablet PO 5 mg Q12HR NICOLE Administration Bumetanide 1 mg 10/26/24 09:00 10/26/24 17:20 Bumetanide Inj 1 Mg/4 Ml Vial IV PUSH 1 mg BID NICOLE Administration Bupropion HCl 150 mg 10/26/24 09:00 10/26/24 10:56 Bupropion Hcl Xl (24 Hr) 150 Mg Tabcr PO Not Given DAILY [facility] Buspirone HCl 15 mg 10/26/24 09:00 10/26/24 10:56 Buspirone Hcl 5 Mg Tablet PO Not Given DAILY [facility] Calcium Carbonate 500 mg 10/26/24 12:00 10/26/24 11:32 Calcium/Vitamin D 500 Mg/5 Mcg (200 I.U.) Tablet PO Not Given NOON [facility] Dextrose 12.5 gm 10/25/24 21:03 Dextrose 50% 25 Gm/50 Ml Syringe IV PUSH PRN PRN Hypoglycemia Protocol Divalproex Sodium 500 mg 10/25/24 22:15 10/25/24 22:48 Divalproex Sodium Er 500 Mg Tab.24h PO 500 mg HS NICOLE Administration Famotidine 20 mg 10/25/24 21:25 10/25/24 22:48 Famotidine 20 Mg Tablet PO 20 mg HS NICOLE Administration Ferrous Sulfate 142 mg 10/26/24 08:00 10/26/24 10:56 Ferrous Sulfate Dried 142 Mg Tabcr PO Not Given DAILY@0800 NICOLE Glucagon 1 mg 10/25/24 21:03 Glucagon For Inj 1 Mg Vial IM PRN PRN Hypoglycemia Protocol Glucose 15 gm 10/25/24 21:03 Glucose Oral Gel 15 Gm Of Glucse In 37.5 Gm Tube PO PRN PRN Hypoglycemia Protocol Ceftriaxone Sodium 1 gm in 50 mls @ 100 mls/hr 10/26/24 14:00 10/25/24 18:34 Rocephin 1 Gm/Ns 50 Ml IVPB Not Given Q24H [facility] Azithromycin 500 mg in 250 mls @ 250 mls/hr 10/26/24 15:00 10/25/24 18:34 Zithromax IVPB Not Given Q24H [facility] Dextrose 1,000 mls @ 100 mls/hr 10/25/24 21:03 Dextrose 5% 1,000 Ml IVPB PRN PRN Hypoglycemia Protocol Insulin Aspart 3 - 6 units 10/26/24 08:00 10/26/24 17:20 Insulin Aspart (*Bkc) 100 Units/Ml SUB-Q 3 units TIDWM NICOLE Administration Protocol Insulin Aspart 1 - 3 units 10/26/24 21:00 Insulin Aspart (*Bkc) 100 Units/Ml SUB-Q HS [facility] Protocol Insulin Glargine 10 units 10/26/24 09:00 10/26/24 11:32 Insulin Glargine (*Bkc) 100 Units/Ml SUB-Q Not Given DAILY [facility] Isosorbide Dinitrate 10 mg 10/25/24 21:05 10/26/24 10:46 Isosorbide Dinitrate 10 Mg Tablet PO 10 mg Q12HR NICOLE Administration Levothyroxine Sodium 100 mcg 10/26/24 06:30 10/26/24 06:05 Levothyroxine Sodium 100 Mcg Tablet PO Not Given DAILY@0630 [facility] Memantine 10 mg 10/25/24 21:05 10/26/24 10:56 Memantine 10 Mg Tablet PO Not Given Q12HR [facility] Metoprolol Tartrate 100 mg 10/25/24 21:45 10/26/24 10:44 Metoprolol Tartrate 50 Mg Tab PO 100 mg Q12HR [facility] Administration Miscellaneous Information 0 each 10/25/24 22:25 Trospium 20 Mg Tab- Nonformulary. Please Obtain A Home Supply Or Hold While Inpatient. XX 11/24/24 22:24 CLARIFY [facility] Multivitamins/Minerals 1 tablet 10/26/24 09:00 10/26/24 17:19 Opti-Gen Tab PO Not Given BID [facility] Non-Formulary Medication 20 mg 10/25/24 21:15 Trospium PO 11/24/24 21:14 Q12H [facility] Pantoprazole Sodium 40 mg 10/26/24 09:00 10/26/24 10:56 Pantoprazole 40 Mg Tablet PO Not Given QAM NICOLE Polyethylene Glycol 17 gm 10/25/24 21:04 Polyethylene Glycol 3350 17 Gm Powd.Pack PO QAM PRN Constipation Pramipexole Dihydrochloride 0.25 mg 10/26/24 09:00 10/26/24 17:19 Pramipexole 0.25 Mg Tablet PO Not Given BID NICOLE Venlafaxine HCl 75 mg 10/26/24 08:00 10/26/24 10:46 Venlafaxine Hcl Xr 75 Mg Cap.Er.24h PO 75 mg DAILY@0800 [facility] Administration Venlafaxine HCl 37.5 mg 10/26/24 08:00 10/26/24 10:46 Venlafaxine Hcl Xr 37.5 Mg Cap BY MOUTH 37.5 mg DAILY@0800 [facility] Administration Vitamin B Complex 1 cap 10/26/24 09:00 10/26/24 10:57 Vitamin B Complex Capsule PO Not Given DAILY [facility] Radiology Results: ITS Impressions Chest X-Ray 10/25/24 13:58 IMPRESSION: 1. Left lower lobe airspace opacities, consistent with atelectasis versus pneumonia. Venous Doppler Study 10/26/24 09:38 IMPRESSION: 1: No lower extremity deep venous thrombosis. Labs Labs: Laboratory Results - last 24 hr 10/25/24 10/25/24 10/25/24 20:11 23:28 23:46 WBC RBC Hgb Hct MCV MCH MCHC RDW Plt Count MPV Sodium Potassium 2.8 L* Chloride Carbon Dioxide Anion Gap BUN Creatinine Estim Creat Clear Calc Estimated GFR Glucose POC Capillary Glucose 134 H Calcium Magnesium 1.6 Iron TIBC % Saturation Ferritin Nasal MRSA (PCR) Not detected 10/26/24 10/26/24 10/26/24 07:17 10:59 11:15 WBC 12.2 H RBC 3.61 L Hgb 9.6 L Hct 32.6 L MCV 90.3 MCH 26.6 MCHC 29.4 L RDW 23.9 H Plt Count 176 MPV 10.8 H Sodium 142 Potassium 3.8 Chloride 103 Carbon Dioxide 28 Anion Gap 11 BUN 43 H Creatinine 2.25 H Estim Creat Clear Calc 25 Estimated GFR 21 L Glucose 172 H POC Capillary Glucose 172 H 153 H Calcium 8.5 Magnesium 2.1 Iron 17 L TIBC 261 % Saturation 7 L Ferritin 98.20 Nasal MRSA (PCR) 10/26/24 16:23 WBC RBC Hgb Hct MCV MCH MCHC RDW Plt Count MPV Sodium Potassium Chloride Carbon Dioxide Anion Gap BUN Creatinine Estim Creat Clear Calc Estimated GFR Glucose POC Capillary Glucose 230 H Calcium Magnesium Iron TIBC % Saturation Ferritin Nasal MRSA (PCR) Quality VTE Prophylaxis VTE prophylaxis: pharmacologic ordered (on apixaban)
[2024-10-26] MEDS: IRON SUCROSE COMPLEX 400 MG, IRON SUCROSE COMPLEX 100 MG in SODIUM CHLORIDE 0.9% IV 250 ML 78.57 MG IVPB (20:04)
[2024-10-26] MEDS: MEMANTINE 10 MG TABLET PO (20:05)
[2024-10-26] MEDS: DIVALPROEX SODIUM ER 500 MG TAB.24H PO (20:05)
[2024-10-26] MEDS: FAMOTIDINE 20 MG TABLET PO (20:05)
[2024-10-26 20:37] LABS: Glucose Point of Care 277 mg/dl (65-105)
[2024-10-27] VITALS (11 sets, daily range): BP systolic 98–124; BP diastolic 57–66; PULSE 1–119; RESP 17–28; TEMP 36.4; O2SAT 96–100
[2024-10-27 03:41] LABS: MRSA (PCR) NOT DETECTED (NOT DETECTE)
[2024-10-27] MEDS: LEVOTHYROXINE SODIUM 100 MCG TABLET PO (05:46)
[2024-10-27 06:23] LABS: Basophils Percent Auto 0.4 % (0.2-1.2); Eosinophils Absolute Auto 0.2 K/mm3 (0-0.3); Eosinophils Percent Auto 1.5 % (0-4.4); Hematocrit 31.7 % (37.0-47.0); Hemoglobin 9.3 g/dL (12.0-15.0); Immature Granulocyte Absolute 0.05 K/mm3 (0.00-0.031); Immature Granulocyte Percent A 0.5 % (0-0.5); Lymphocytes Absolute Auto 1.21 K/mm3 (0.9-3.2); Lymphocytes Percent Auto 11.6 % (18.3-44.2); Mean Corpuscular HGB Conc 29.3 g/dl (32-36); Mean Corpuscular Hemoglobin 26.5 pg (26-34); Mean Corpuscular Volume 90.3 fl (80-100); Mean Platelet Volume 10.6 fl (7.4-10.4); Monocytes Absolute Auto 0.5 K/mm3 (0.1-0.6); Monocytes Percent Auto 4.8 % (2.6-8.5); Neutrophils Absolute Auto 8.5 K/mm3 (1.3-6.7); Neutrophils Percent Auto 81.2 % (45.5-73.1); Nucleated Red Blood Cells Perc 0.2 % (0.0-0.2); Platelet Count Result 167 k/mm3 (150-375); Red Blood Count 3.51 M/mm3 (4.2-5.4); Red Cell Distribution Width 23.8 % (11.5-14.5); White Blood Count 10.5 K/mm3 (4.5-10.0)
[2024-10-27 06:43] LABS: Alanine Aminotransferase 35 U/L (6-35); Albumin Level 2.7 g/dL (3.5-5.1); Alkaline Phosphatase 155 U/L (38-126); Anion Gap 13 mmol/L (4-12); Aspartate Amino Transferase 47 U/L (14-36); Bilirubin,Total 0.5 mg/dL (0.2-1.3); Blood Urea Nitrogen 52 mg/dL (7-17); Calcium 8.6 mg/dL (8.4-10.2); Carbon Dioxide 24 mmol/L (22-30); Chloride 102 mmol/L (98-107); Estimated CRCL calculation 19 ml/min; Estimated Glomerular Filt Rate 16; Glucose 242 mg/dL (65-110); Magnesium 2.2 mg/dL (1.6-2.3); Potassium 3.6 mmol/L (3.4-5.0); Sodium 139 mmol/L (137-145)
[2024-10-27 06:50] LABS: Platelet Estimate Adequate (Adequate)
[2024-10-27 06:51] LABS: Anisocytosis 2+; Hypochromasia 1+; Ovalocytes 1+; Schistocytes None Seen
--- NOTE | 2024-10-27 07:57 | ECG_ITS ---
Test Date: 2024-10-27 09:05:07 Measurements Intervals [place] Rate: 108 P: 0 VT: 0 QRS: 38 QRSD: 96 T: 38 QT: 356 QTc: 478 Interpretive Statements ATRIAL FIBRILLATION WITH RAPID VENTRICULAR RESPONSE CONSIDER INFERIOR INFARCT, AGE INDETERMINATE BORDERLINE T WAVE ABNORMALITY- LATERAL LEADS ABNORMAL ECG Compared to ECG 10/25/2024 12:40:16 NO SIGNIFICANT CHANGE Electronically Signed On 10-27-2024 09:37:11 STEAM TABLE ATTENDANT by Anupam Mcdowell D.O.
[2024-10-27 08:40] LABS: Glucose Point of Care 218 mg/dl (65-105)
[2024-10-27] MEDS: BUMETANIDE INJ 1 MG/4 ML VIAL IV PUSH (09:24)
[2024-10-27] MEDS: FERROUS SULFATE DRIED 142 MG TABCR PO (09:24)
[2024-10-27] MEDS: APIXABAN 5 MG TABLET PO (09:24)
[2024-10-27] MEDS: busPIRone HCL 5 MG TABLET 15 MG PO (09:24)
[2024-10-27] MEDS: PRAMIPEXOLE 0.25 MG TABLET PO (09:24)
[2024-10-27] MEDS: PANTOPRAZOLE 40 MG TABLET PO (09:24)
[2024-10-27] MEDS: buPROPion HCL XL (24 HR) 150 MG TABCR PO (09:24)
[2024-10-27] MEDS: VENLAFAXINE HCL XR 75 MG CAP.ER.24H PO (09:25)
[2024-10-27] MEDS: METOPROLOL TARTRATE 50 MG TAB 100 MG PO (09:25)
[2024-10-27] MEDS: ISOSORBIDE DINITRATE 10 MG TABLET PO (09:25)
[2024-10-27] MEDS: VITAMIN B COMPLEX CAPSULE 1 CAP PO (09:25)
[2024-10-27] MEDS: MEMANTINE 10 MG TABLET PO (09:25)
[2024-10-27] MEDS: OPTI-GEN TAB 1 TABLET PO (09:25)
[2024-10-27] MEDS: INSULIN GLARGINE (*BKC) 100 UNITS/ML 10 UNITS SUB-Q (09:25)
[2024-10-27] MEDS: VENLAFAXINE HCL XR 37.5 MG CAP BY MOUTH (09:25)
[2024-10-27] MEDS: IRON SUCROSE COMPLEX 400 MG, IRON SUCROSE COMPLEX 100 MG in SODIUM CHLORIDE 0.9% IV 250 ML 78.57 MG IVPB (09:25)
[2024-10-27] MEDS: allopurinoL 100 MG TABLET PO (09:26)
[2024-10-27] MEDS: INSULIN ASPART (*BKC) 100 UNITS/ML SUB-Q ×2 (09:26→13:03)
[2024-10-27 12:26] LABS: Glucose Point of Care 360 mg/dl (65-105)
[2024-10-27] MEDS: CALCIUM/VITAMIN D 500 MG/5 MCG (200 I.U.) TABLET PO (13:02)
--- NOTE | 2024-10-27 14:28 | PCPTNOTE ---
Attempted PT evaluation this date, however pt declined. Will continue to attempt.
[2024-10-27] MEDS: AZITHROMYCIN 500 MG/NS 250 ML 500 MG/250 ML BAG 250 MG IVPB (15:34)
--- NOTE | 2024-10-27 16:26 | PM.IMPN ---
Progress Note: A&P Assessment and Plan (1) Acute respiratory failure with hypoxia: Code(s): J96.01 - Acute respiratory failure with hypoxia Status: Acute (2) Acute on chronic diastolic congestive heart failure: Code(s): I50.33 - Acute on chronic diastolic (congestive) heart failure Status: Acute (3) Pneumonia: Code(s): J18.9 - Pneumonia, unspecified organism Status: Acute (4) Atrial fibrillation with RVR: Code(s): I48.91 - Unspecified atrial fibrillation Status: Acute (5) Hypokalemia: Code(s): E87.6 - Hypokalemia Status: Acute (6) Hypertension: Qualifiers: Hypertension type: unspecified Qualified Code(s): I10 - Essential (primary) hypertension Code(s): I10 - Essential (primary) hypertension Status: Chronic (7) Insulin dependent type 2 diabetes mellitus: Code(s): E11.9 - Type 2 diabetes mellitus without complications; Z79.4 - USP (current) use of insulin Status: Acute (8) Hypothyroidism: Qualifiers: Hypothyroidism type: acquired Qualified Code(s): E03.9 - Hypothyroidism, unspecified Code(s): E03.9 - Hypothyroidism, unspecified Status: Acute (9) Stage 3b chronic kidney disease (CKD): Code(s): N18.32 - Chronic kidney disease, stage 3b Status: Acute Plan Acute hypoxemic respiratory failure From pneumonia Currently 4 L oxygen Continue titrating. Pneumonia chest x-ray showed left lower lobe infiltrates Monitor blood sputum culture, MRSA Day 2 Continue Rocephin and azithromycin. Atrial fibrillation with rapid ventricular response Improving Continue Eliquis and metoprolol. Hypokalemia Resolving, potassium is 3.8 replaced and monitor Iron deficiency anemia Hb 9.3, Isat 7 Start IV iron 1000/1000 monitor CKD Cr 2.89 from Cr 2.25 which is about baseline Hold Bumetanide, monitor Creatinine DM2 SSI with accucheks and adjust with clinical course HTN Titrate home meds with clinical course Depression Continue home meds Hypothyroidism Continue home Levothyroxine DVT prophylaxis on Sq Lovenox Awaiting PT/OT eval Subjective Date/time seen: 10/27/24 16:26 Interval history: Comfortable at beCr increased to 2.89 from 2.25 Review of Systems Review of Systems: 12 systems were reviewed and are negative except for as per HPI. Exam Narrative: General: Alert and oriented times 2, was able to tell the year and month butnot the day HEENT: PERRL, EOMI. Sclera anicteric. Mucous membranes appear tacky through the BiPAP. Neck: Supple. No significant JVD. Respiratory: Respirations are nonlabored and she appears comfortable on BiPAP. Scattered upper airway rhonchi heard anteriorly. Cardiovascular: Irregularly irregular rate and rhythm. Gastrointestinal: Abdomen is soft, obese, nontender, and nondistended with positive bowel sounds. Skin: Warm and dry. Erythema of the lower legs due to chronic edema and venous stasis. Extremities: No cyanosis or clubbing. Bilateral lower extremity pitting edema. No palpable knots or cords. Negative Naa sign bilaterally. Pedal pulses diminished but palpable. Neurological: Alert and oriented. Cranial nerves 2-12 are grossly intact. No gross focal deficits to casual conversation. Psychiatric: Pleasant and cooperative with appropriate mood. She seems a bit forgetful. Objective Data Vital Signs Vital Signs: Vital Signs - 24 hr 10/26/24 18:00 10/26/24 20:00 10/26/24 20:00 Temperature 97.4 F L Pulse Rate 101 H 104 H Respiratory Rate 19 Blood Pressure 122/71 Pulse Oximetry 93 96 Oxygen Delivery Nasal Cannula Oxygen Flow Rate 4 Fraction of Inspired Oxygen 10/26/24 20:00 10/26/24 20:06 10/26/24 22:00 Temperature Pulse Rate 106 H 113 H 109 H Respiratory Rate Blood Pressure Pulse Oximetry Oxygen Delivery Oxygen Flow Rate Fraction of Inspired Oxygen 10/26/24 23:51 10/27/24 00:00 10/27/24 00:00 Temperature 97.4 F L Pulse Rate 94 100 Respiratory Rate 18 Blood Pressure 114/59 L Pulse Oximetry 96 96 Oxygen Delivery BiPAP Oxygen Flow Rate Fraction of Inspired Oxygen 40 10/27/24 02:00 10/27/24 02:19 10/27/24 04:00 Temperature 97.6 F Pulse Rate 98 95 97 Respiratory Rate 19 17 Blood Pressure 107/57 L Pulse Oximetry 97 98 Oxygen Delivery BiPAP Oxygen Flow Rate Fraction of Inspired Oxygen 10/27/24 04:00 10/27/24 04:00 10/27/24 06:00 Temperature Pulse Rate 101 H 108 H Respiratory Rate Blood Pressure Pulse Oximetry 98 Oxygen Delivery Nasal Cannula Oxygen Flow Rate 4 Fraction of Inspired Oxygen 10/27/24 08:00 10/27/24 09:17 10/27/24 12:00 Temperature 97.5 F L 97.5 F L Pulse Rate 90 102 H Respiratory Rate 22 H 20 Blood Pressure 106/66 98/59 L Pulse Oximetry 100 96 100 Oxygen Delivery Nasal Cannula Oxygen Flow Rate 4 Fraction of Inspired Oxygen Intake/Output Intake/Output: Intake & Output 10/24/24 10/25/24 10/26/24 10/27/24 23:59 23:59 23:59 23:59 Intake Total 554.8 1480 340 Output Total 250 50 Balance 554.8 1230 290 Meds/Results Medications: Active Medications Generic Name Dose Route Start Last Admin Trade Name Freq PRN Reason Stop Dose Admin Acetaminophen 650 mg 10/25/24 21:03 10/25/24 22:49 Acetaminophen 325 Mg Tablet PO 650 mg Q6H PRN Administration Mild Pain (1-3) or Fever Allopurinol 100 mg 10/26/24 08:00 10/27/24 09:26 Allopurinol 100 Mg Tablet PO 100 mg DAILY@0800 NICOLE Administration Apixaban 5 mg 10/25/24 21:05 10/27/24 09:24 Apixaban 5 Mg Tablet PO 5 mg Q12HR NICOLE Administration Bumetanide 1 mg 10/26/24 09:00 10/27/24 09:24 Bumetanide Inj 1 Mg/4 Ml Vial IV PUSH 1 mg BID NICOLE Administration Bupropion HCl 150 mg 10/26/24 09:00 10/27/24 09:24 Bupropion Hcl Xl (24 Hr) 150 Mg Tabcr PO 150 mg DAILY NICOLE Administration Buspirone HCl 15 mg 10/26/24 09:00 10/27/24 09:24 Buspirone Hcl 5 Mg Tablet PO 15 mg DAILY NICOLE Administration Calcium Carbonate 500 mg 10/26/24 12:00 10/27/24 13:02 Calcium/Vitamin D 500 Mg/5 Mcg (200 I.U.) Tablet PO 500 mg NOON NICOLE Administration Dextrose 12.5 gm 10/25/24 21:03 Dextrose 50% 25 Gm/50 Ml Syringe IV PUSH PRN PRN Hypoglycemia Protocol Divalproex Sodium 500 mg 10/25/24 22:15 10/26/24 20:05 Divalproex Sodium Er 500 Mg Tab.24h PO 500 mg HS NICOLE Administration Famotidine 20 mg 10/25/24 21:25 10/26/24 20:05 Famotidine 20 Mg Tablet PO 20 mg HS NICOLE Administration Ferrous Sulfate 142 mg 10/26/24 08:00 10/27/24 09:24 Ferrous Sulfate Dried 142 Mg Tabcr PO 142 mg DAILY@0800 NICOLE Administration Glucagon 1 mg 10/25/24 21:03 Glucagon For Inj 1 Mg Vial IM PRN PRN Hypoglycemia Protocol Glucose 15 gm 10/25/24 21:03 Glucose Oral Gel 15 Gm Of Glucse In 37.5 Gm Tube PO PRN PRN Hypoglycemia Protocol Ceftriaxone Sodium 1 gm in 50 mls @ 100 mls/hr 10/26/24 14:00 10/27/24 15:34 Rocephin 1 Gm/Ns 50 Ml IVPB 100 mls/hr Q24H NICOLE Administration Azithromycin 500 mg in 250 mls @ 250 mls/hr 10/26/24 15:00 10/27/24 15:34 Zithromax IVPB 250 mls/hr Q24H NICOLE Administration Dextrose 1,000 mls @ 100 mls/hr 10/25/24 21:03 Dextrose 5% 1,000 Ml IVPB PRN PRN Hypoglycemia Protocol Insulin Aspart 3 - 6 units 10/26/24 08:00 10/27/24 13:03 Insulin Aspart (*Bkc) 100 Units/Ml SUB-Q 6 units TIDWM NICOLE Administration Protocol Insulin Aspart 1 - 3 units 10/26/24 21:00 10/26/24 21:12 Insulin Aspart (*Bkc) 100 Units/Ml SUB-Q 2 units HS NICOLE Administration Protocol Insulin Glargine 10 units 10/26/24 09:00 10/27/24 09:25 Insulin Glargine (*Bkc) 100 Units/Ml SUB-Q 10 units DAILY NICOLE Administration Isosorbide Dinitrate 10 mg 10/25/24 21:05 10/27/24 09:25 Isosorbide Dinitrate 10 Mg Tablet PO 10 mg Q12HR NICOLE Administration Levothyroxine Sodium 100 mcg 10/26/24 06:30 10/27/24 05:46 Levothyroxine Sodium 100 Mcg Tablet PO 100 mcg DAILY@0630 NICOLE Administration Memantine 10 mg 10/25/24 21:05 10/27/24 09:25 Memantine 10 Mg Tablet PO 10 mg Q12HR NICOLE Administration Metoprolol Tartrate 100 mg 10/25/24 21:45 10/27/24 09:25 Metoprolol Tartrate 50 Mg Tab PO 100 mg Q12HR NICOLE Administration Miscellaneous Information 0 each 10/25/24 22:25 Trospium 20 Mg Tab- Nonformulary. Please Obtain A Home Supply Or Hold While Inpatient. XX 11/24/24 22:24 CLARIFY [facility] Multivitamins/Minerals 1 tablet 10/26/24 09:00 10/27/24 09:25 Opti-Gen Tab PO 1 tablet BID NICOLE Administration Non-Formulary Medication 20 mg 10/25/24 21:15 Trospium PO 11/24/24 21:14 Q12H [facility] Pantoprazole Sodium 40 mg 10/26/24 09:00 10/27/24 09:24 Pantoprazole 40 Mg Tablet PO 40 mg QAM NICOLE Administration Polyethylene Glycol 17 gm 10/25/24 21:04 Polyethylene Glycol 3350 17 Gm Powd.Pack PO QAM PRN Constipation Pramipexole Dihydrochloride 0.25 mg 10/26/24 09:00 10/27/24 09:24 Pramipexole 0.25 Mg Tablet PO 0.25 mg BID NICOLE Administration Venlafaxine HCl 75 mg 10/26/24 08:00 10/27/24 09:25 Venlafaxine Hcl Xr 75 Mg Cap.Er.24h PO 75 mg DAILY@0800 [facility] Administration Venlafaxine HCl 37.5 mg 10/26/24 08:00 10/27/24 09:25 Venlafaxine Hcl Xr 37.5 Mg Cap BY MOUTH 37.5 mg DAILY@0800 [facility] Administration Vitamin B Complex 1 cap 10/26/24 09:00 10/27/24 09:25 Vitamin B Complex Capsule PO 1 cap DAILY NICOLE Administration Radiology Results: ITS Impressions Chest X-Ray 10/25/24 13:58 IMPRESSION: 1. Left lower lobe airspace opacities, consistent with atelectasis versus pneumonia. Venous Doppler Study 10/26/24 09:38 IMPRESSION: 1: No lower extremity deep venous thrombosis. Labs Labs: Laboratory Results - last 24 hr 10/26/24 10/26/24 10/27/24 16:23 20:28 02:27 WBC RBC Hgb Hct MCV MCH MCHC RDW Plt Count MPV Immature Gran % (Auto) Neut % (Auto) Lymph % (Auto) [place] % (Auto) Eos % (Auto) Baso % (Auto) Lymph # (Auto) [place] # (Auto) Eos # (Auto) Baso # (Auto) Abs Immat Gran (auto) Absolute Neuts (auto) Absolute Nucleated RBC Band Neutrophils % Nucleated RBC % Platelet Estimate Hypochromasia Anisocytosis Ovalocytes Schistocytes Sodium Potassium Chloride Carbon Dioxide Anion Gap BUN Creatinine Estim Creat Clear Calc Estimated GFR Glucose POC Capillary Glucose 230 H 277 H Calcium Magnesium Total Bilirubin AST ALT Alkaline Phosphatase Total Protein Albumin Nasal MRSA (PCR) Not detected 10/27/24 10/27/24 10/27/24 06:08 07:35 11:33 WBC 10.5 H RBC 3.51 L Hgb 9.3 L Hct 31.7 L MCV 90.3 MCH 26.5 MCHC 29.3 L RDW 23.8 H Plt Count 167 MPV 10.6 H Immature Gran % (Auto) 0.5 Neut % (Auto) 81.2 H Lymph % (Auto) 11.6 L [place] % (Auto) 4.8 Eos % (Auto) 1.5 Baso % (Auto) 0.4 Lymph # (Auto) 1.21 [place] # (Auto) 0.5 Eos # (Auto) 0.2 Baso # (Auto) 0.0 Abs Immat Gran (auto) 0.05 H Absolute Neuts (auto) 8.5 H Absolute Nucleated RBC 0.020 H Band Neutrophils % Not Reportable Nucleated RBC % 0.2 Platelet Estimate Adequate Hypochromasia 1+ Anisocytosis 2+ Ovalocytes 1+ Schistocytes None seen Sodium 139 Potassium 3.6 Chloride 102 Carbon Dioxide 24 Anion Gap 13 H BUN 52 H Creatinine 2.89 H Estim Creat Clear Calc 19 Estimated GFR 16 L Glucose 242 H POC Capillary Glucose 218 H 360 H Calcium 8.6 Magnesium 2.2 Total Bilirubin 0.5 AST 47 H ALT 35 Alkaline Phosphatase 155 H Total Protein 6.0 L Albumin 2.7 L Nasal MRSA (PCR) Quality VTE Prophylaxis VTE prophylaxis: pharmacologic ordered (on apixaban)
[2024-10-27 16:33] LABS: Glucose Point of Care 395 mg/dl (65-105)
[2024-10-27] MEDS: MORPHINE SULFATE (*CRX) 2 MG/ML INJ (17:35)
[2024-10-27] MEDS: LORazepam INJ (*CRX) 2 MG/ML VIAL (17:35)
--- NOTE | 2024-10-27 19:53 | PC.NURSE ---
This nurse was notified that the patient was agonal breathing and beginning to mottle. Upon further assessment, her blood pressure was 60's/40's, her oxygen saturation was dropping, and she was in fact agonal breathing. A call was initiated to the son, but there was no answer. Dr. Pro was called and he instructed us to initiate comfort measures if the son was okay with proceeding. The son called back shortly and notified us to keep her as comfortable as possible until the family was able to arrive. Comfort orders were then initiated, and morphine and lorazepam were given.
--- NOTE | 2024-10-28 11:40 | P.DN_ITS ---
Discharge Summary Date and Time Date of : 10/27/24 Time of : 17:56 Provider Pronounced By: 2 RNs Name of First RN That Pronounced: Gabi Junior RN Name of Second RN That Pronounced: Felisha Hernandez RN Probable Cause of Probable Cause of : Cardiac arrest Acute hypoxemic respiratory failure Pneumonia Atrial fibrillation with rapid ventricular response Summary Hospital Course: This is a 78-year-old female with coronary artery disease, paroxysmal atrial fibrillation on anticoagulation, diastolic congestive heart failure, pulmonary hypertension, obstructive sleep apnea on CPAP, hypertension, hyperlipidemia, chronic kidney disease, anemia, type 2 diabetes mellitus, memory impairment, C difficile diarrhea, depression, suicide attempt in 2023, and other comorbidities who presented to the emergency department via EMS from a local nursing facility for evaluation of shortness of breath and low oxygen levels. She provides the following history however some information is obtained via a review of her EMR given her underlying memory impairment and the fact that she is currently on BiPAP. She reports a nonproductive cough for the last several days and this morning she was complaining of shortness of breath and was reportedly found has an SpO2 in the upper 70s and she was sent in for evaluation. She has no current complaints and denies fever, chills, sweats, headache, sore throat, productive cough, chest pain, pleuritic pain, nausea, vomiting, diarrhea, and calf pain. In the ED: She was on 4 L nasal cannula on arrival but was transitioned to BiPAP as she was tachycardic and tachypneic and she is much more comfortable on the BiPAP. She has been afebrile since arrival with stable blood pressures. She is in rapid atrial fibrillation is currently on a diltiazem drip with improvement in her rate. Labs were significant for hemoglobin of 10.6, INR 1.8, potassium 2.7, BUN 36, creatinine 1.80, proBNP 20175. Urinalysis was positive for 2+ blood, 3+ leukocyte esterase, 6 to 10 RBC, greater than 100 WBC though no bacteria were seen on microscopy. Respiratory panel was negative. Chest x-ray showed left lower lobe airspace opacities consistent with atelectasis versus pneumonia. She was started on antibiotics and she is being admitted in this setting for further treatment. Patient started on antibiotics for pneumonia requiring 4 liters oxygen. Potassium was replaced for hypokalemia and she recieved 1g of Iron for iron deficiency anemia. she as also managed for ALBERTINA on CKD with creatinine at 2.89 and baseline of 2.25. Bumex was held and pending improvement in renal function. Son initially considered hospice care but however backed off, patient was making some improvement until yesterday when she was suddenly found in agonal breathing, she was DNR. Son was called who decided to transition to comfort care Patient was transitioned to comfort care cand she passed at 1756. Family was informed. Additional Data Confirmation of as documented by pronouncing clinician: Pupillary Reflex, Palpable Pulses, Response to Stimuli, Heart Tones and Breath Sounds Name of Provider Notified: Dr. Pro Time Provider Notified: 18:00 Family Requests Autopsy: No Electrode [employer] Notified: Yes Date [facility] Notified of : 10/27/24 Time [facility] Notified of : 18:02
[2024-10-29 15:43] LABS: Pneumococcal Antigen Urine DETECTED
[2024-10-29 18:23] LABS: Mycoplasma IgM Antibody Titer 88 U/mL
== END 2024-10-27 17:56 | disposition expired | DRG 193 ==
LOC: ANHED 14:20 → ANHIMU 15:43
PROVIDERS: Physician Assistant; Admitting Provider Hospitalist; Emergency Provider Emergency Medicine; PCP Family Medicine; Visit Provider Internal Medicine
DX: J18.9 Pneumonia, unspecified organism (principal); I50.33 Acute on chronic diastolic (congestive) heart failure; J96.01 Acute respiratory failure with hypoxia; I13.0 Hypertensive heart and chronic kidney disease with heart failure and stage 1 through stage 4 chronic kidney disease, or unspecified chronic kidney disease; N17.9 Acute kidney failure, unspecified; N18.32 Chronic kidney disease, stage 3b; E11.22 Type 2 diabetes mellitus with diabetic chronic kidney disease; I48.0 Paroxysmal atrial fibrillation; E87.6 Hypokalemia; E03.9 Hypothyroidism, unspecified; D50.9 Iron deficiency anemia, unspecified; E11.42 Type 2 diabetes mellitus with diabetic polyneuropathy; G25.81 Restless legs syndrome; E78.2 Mixed hyperlipidemia; H35.30 Unspecified macular degeneration; G47.33 Obstructive sleep apnea (adult) (pediatric); D64.9 Anemia, unspecified; M17.10 Unilateral primary osteoarthritis, unspecified knee; F32.A Depression, unspecified; I46.9 Cardiac arrest, cause unspecified; Z79.4 Long term (current) use of insulin; Z79.01 Long term (current) use of anticoagulants; Z85.828 Personal history of other malignant neoplasm of skin; Z85.3 Personal history of malignant neoplasm of breast; Z95.5 Presence of coronary angioplasty implant and graft; Z96.641 Presence of right artificial hip joint; Z90.49 Acquired absence of other specified parts of digestive tract; Z96.1 Presence of intraocular lens; Z98.49 Cataract extraction status, unspecified eye
CPT/HCPCS: 36415; 36600; 71045; 80048; 80053; 81001; 82728; 82805; 82948; 83540; 83550; 83605; 83735; 83880; 84132; 84145; 85018; 85025; 85027; 85610; 85730; 86738; 87040; 87086; 87449; 87637; 87641; 87899; 92610; 93005; 93970; 94002; 94003; 96365; 96366; 96367; 96375; 96376; 99285; A9270; G0378; J0456; J0696; J1756; J1815; J1939; J1940; J2060; J2270; J3475; J3480; J7040; J7050